=== PATIENT | female | born 1975 | race Caucasian/White ===

== ENCOUNTER 2016-09-14 20:32 | Emergency (ER) | payer BC, MEDICAID ==
[~2016-09-14] VITALS: Ht 165.1 cm; Wt 61.2 kg
[~2016-09-14 20:32] MED LIST: AC500T PO; ALBU0.8322 IH; ALPR1T PO; ALPR1TAB PO; CYCL10TA9 PO; DOXY100C2 PO; EMTR1TAB PO; HYDR-229 PO; HYDR-3583 PO; HYDR-623 PO; HYDR1CAP2 PO; IBP800T PO; IBUP-15 PO; K ZOSYN IV; METH-53 PO; METH4TAB PO; METH750T3 PO; NCT14P TD; ONDA2VIA3 PO; POLY17PO23 GT; PROP1TAB77 PO; RITO100T PO; SULF1TAB38 PO; TRAM-21 PO; TRM50T PO; VENL100T; [UNRECOGNIZED DRUG - CODE] IV; [UNRECOGNIZED DRUG - CODE] PO
[2016-09-14] MEDS ORDERED: ELVI1TAB (20:53)
[2016-09-14] MEDS ORDERED: DRON10CA2 (20:53)
[2016-09-14] MEDS ORDERED: ALBU18HF2 (20:53)
[2016-09-14] MEDS ORDERED: TRAM50TA2 (20:53)
[2016-09-14] MEDS ORDERED: ONDA8TAB12 (20:53)
[2016-09-14] MEDS ORDERED: ONDANSETRON 4 MG/2 ML (SDV) Z0FRAN IVP ONE (21:00)
[2016-09-14] MEDS ORDERED: IOHEXOL 350 MG/ML 100 ML (OMNIPAQUE 350) VIAL IV ONE (21:00)
[2016-09-14] MEDS ORDERED: NS 100 ML (IVPB) BAG IV ONE (21:00)
[2016-09-14 21:16] LABS: BASOPHILS # (AUTO) 0.1 10^3/uL (0.0-0.1); BASOPHILS % (AUTO) 2 % (0-10); EOSINOPHILS # (AUTO) 0.1 10^3/uL (0.0-0.3); EOSINOPHILS % (AUTO) 3 % (0-10); LYMPHOCYTES # (AUTO) 1.6 X 10^3 (1.0-4.0); LYMPHOCYTES % (AUTO) 50 % (12-44); MEAN CORPUSCULAR HEMOGLOBIN 30 PG (25-34); MEAN CORPUSCULAR HGB CONC 33 G/DL (32-36); MEAN CORPUSCULAR VOLUME 90 FL (80-99); MEAN PLATELET VOLUME 11.1 FL (7.4-10.4); MONOCYTES # (AUTO) 0.5 X 10^3 (0.0-1.0); MONOCYTES % (AUTO) 16 % (0-12); NEUTROPHILS % (AUTO) 30 % (42-75); PLATELET COUNT 221 10^3/uL (130-400); RED BLOOD COUNT 3.79 10^6/uL (4.35-5.85); RED CELL DISTRIBUTION WIDTH 18.2 % (10.0-14.5); WHITE BLOOD COUNT 3.3 10^3/uL (4.3-11.0)
[2016-09-14 21:20] LABS: PROTHROMBIN TIME PATIENT 12.5 SEC (12.2-14.7)
[2016-09-14 21:28] LABS: ALANINE AMINOTRANSFERASE 15 U/L (0-55); ALBUMIN 4.2 GM/DL (3.2-4.5); ALCOHOL < 10 MG/DL (<10); AMYLASE 54 U/L (25-125); ANION GAP 11 MMOL/L (5-14); ASPARTATE AMINO TRANSFERASE 21 U/L (5-34); BILIRUBIN,TOTAL 0.4 MG/DL (0.1-1.0); BLOOD UREA NITROGEN 11 MG/DL (7-18); BUN/CREATININE RATIO 13; CARBON DIOXIDE 23 MMOL/L (21-32); CHLORIDE 108 MMOL/L (98-107); CREATININE SERUM 0.82 MG/DL (0.60-1.30); GFR ESTIMATED > 60; GLUCOSE 94 MG/DL (70-105); LIPASE 17 U/L (8-78); MAGNESIUM 1.8 MG/DL (1.8-2.4); SODIUM 142 MMOL/L (135-145); TOTAL PROTEIN 7.3 GM/DL (6.4-8.2)
[2016-09-14 21:35] LABS: ACETAMINOPHEN < 10 UG/ML (10-30)
[2016-09-14] MEDS ORDERED: LACTATED RINGERS 1,000 ML IV ONE (22:00)
--- NOTE | 2016-09-14 22:13 | Diagnostic Imaging Report ---
PROCEDURE: CT abdomen and pelvis with contrast. TECHNIQUE: Multiple contiguous axial images were obtained through the abdomen and pelvis after administration of intravenous contrast. INDICATION: Bloating and abdominal pain. FINDINGS: The previous CT abdomen/pelvis exam of 06/02/12 noted that the gallbladder was surgically absent. In the interval since the prior exam, pneumobilia has developed. The previous CT abdomen/pelvis exam of 05/27/12 also show pneumobilia. This could be secondary to the patient's recent cholecystectomy. There is no sign of a pancreatic mass. The stomach is distended by fluid and particulate matter and consequently difficult to assess. The liver, itself, is stable. The previous exam also noted a fat-containing umbilical hernia in the supraumbilical region on the left. That findings is again evident. The amount of fat in this area has increased and now measures approximately 2.6 x 7.8 cm, as opposed to 1.9 x 5.1 cm previously. There is also some distortion of the fat in this area indicating that there is an element of edema/inflammation. There is no mass or abscess identified, however. The spleen is prominent but unchanged when compared with the prior exam. The pancreas, kidneys, adrenals, aorta and inferior vena cava show no sign of an acute abnormality. There is a fair amount of fecal material in the ascending and transverse colon and there is a considerable amount of gas in these portions of the colon as well. There is a large fibroid involving the uterus. On the prior exam, the fibroid measured approximately 4.3 cm. On this study, it now appears to be approximately 7 cm in size. If further study is desired, ultrasound would be recommended. The urinary bladder is grossly unremarkable. The appendix is not well visualized but there are no indirect signs of acute appendicitis. The bone windows show no sign of a fracture or of a destructive lesion. IMPRESSION: 1. The pneumobilia noted previously is again evident. This is of uncertain etiology. There is no sign of a pancreatic mass. 2. There does appear to be a greater amount of mesenteric fat extending through the ventral hernia on the left. There is also some distortion of the fat in this area indicating that there is an element of edema/inflammation. There is no sign of a mass or abscess however. 3. There is no acute abnormality in the abdomen or pelvis noted otherwise. 4. There is a considerable amount of fecal material and gas throughout the ascending and transverse colon. 5. The large fibroid, noted previously, has increased in size. If further study is desired, then ultrasound would be recommended. 6. These results were discussed with Dr. Che Granger. Dictated by: Dictated on workstation # [id number]
--- NOTE | 2016-09-14 22:18 | ED Abdominal Pain ---
General Chief Complaint: Abdominal/GI Problems Stated Complaint: AB PAIN Nursing Triage Note: ABDOMINAL CRAMPING/VAG. BLEEDING Sepsis Screen: No Definite Risk Source of Information: Patient (DIFFICULT HISTORIAN), Old Records History of Present Illness Time Seen By Provider: 20:49 Initial Comments PT ARRIVES VIA POV C/O LOWER ABDOMINAL PAIN /MENSTRUAL CRAMPING FOR THE LAST 3-4 DAYS STATES HER STOMACH HAS BEEN SWOLLEN FOR THE LAST 3-4 DAYS NO NAUSEA/VOMITING/DIARRHEA/CONSTIPATION. HAD A NORMAL BM TODAY NO URINARY SYMPTOMS AND VOIDING A NORMAL AMOUNT NO FEVER STATES SHE HAD A NORMAL PERIOD 09/03/16. LASTED 4-5 DAYS. STOPPED FOR 3 DAYS AND STARTED AGAIN AND IS VERY HEAVY AND PASSING CLOTS. CLAIMS SHE HAS WENT THROUGH A WHOLE PACK OF 48 MAXI PADS TODAY. NO HISTORY OF SIMILAR PT HAS HAD BTL PT HAS HIV, AND HISTORY OF ASCITES/LIVER FAILURE IN THE PAST, PER OLD RECORDS ALTHOUGH PT DENIES THIS--HAS A HISTORY OF NON-COMPLIANCE Allergies and Home Medications Allergies Coded Allergies: Oxycodone Terephthalate (Unverified Allergy, Severe, ITCHING, 06/08/11) aspirin (Unverified Allergy, Severe, ITCHING, 06/08/11) oxycodone HCl (Unverified Allergy, Severe, ITCHING, 06/08/11) Uncoded Allergies: NKDA (Allergy, Mild, 08/14/08) Home Medications Albuterol Sulfate 2.5 Mg/3 Ml Solution, 2.5 MG IH TID, (Reported) Albuterol Sulfate 18 Gm Hfa.aer.ad, #18 (Reported) Alprazolam 1 Mg Tablet, 1 MG PO BID, (Reported) Dronabinol 10 Mg Capsule, #60 (Reported) Elvitegr/Cobicist/Emtric/Tenof 1 Each Tablet, #30 (Reported) Hydrocodone Bit/Acetaminophen 1 Each Tablet, 1 EACH PO Q4H PRN, (Reported) Hydrocodone Bit/Acetaminophen 1 Tab Tablet, 1-2 EACH PO Q6H PRN, #40 Ref 0 Prescribed by: CRISTAL SANFORD on 06/02/12 1558 Ibuprofen 800 Mg Tablet, 1 EACH PO TID PRN, #30 Prescribed by: CARMELA MISHRA on 05/27/12 0135 Ketorolac Tromethamine 10 Mg Tablet, 10 MG PO Q6H, #15 Prescribed by: LC BLAKE on 09/14/16 2316 Ondansetron HCl 8 Mg Tablet, #30 (Reported) Polyethylene Glycol 17 Gm Pack, 17 GM GT BID, #30 Use twice daily in 8 oz of water or juice until abdominal pain and constipaion resolve. Then use daily as needed. Prescribed by: CARMELA MISHRA on 05/27/12 0135 Tramadol HCl 50 Mg Tablet, #120 (Reported) Tramadol Hcl 50 Mg Tab, 50 MG PO Q4H, #20 Prescribed by: CARMELA MISHRA on 05/27/12 0135 Review of Systems Constitutional: no symptoms reported Respiratory: No Symptoms Reported Cardiovascular: No Symptoms Reported Gastrointestinal: See HPI, Abdominal Pain, Nausea, Denies Vomiting Genitourinary: See HPI Musculoskeletal: no symptoms reported Skin: no symptoms reported Psychiatric/Neurological: Anxiety Endocrine: No Symptoms Reported Hematologic/Lymphatic: See HPI (PT WITH HIV) Past Uddqaki-Fpzpao-Ivtflj Hx Patient Social History Alcohol Use: Past History (HISTORY OF ABUSE, CLAIMS NONE SINCE 2014, PER PT ON 09/14/16) Recreational Drug Use: Yes (DENIES, BUT TESTED + FOR AMPHETAMINES ) Smoking Status: Current Everyday Smoker (1 PPD) Type Used: Cigarettes 2nd Hand Smoke Exposure: Yes Recent Foreign Travel: No Contact w/Someone Who Travel: No Recent Infectious Disease Expo: No Recent Hopitalizations: No Immunizations Up To Date Tetanus Booster (TDap): Less than 5yrs Date of Pneumonia Vaccine: Mar 16, 2009 Date of Influenza Vaccine: Mar 16, 2012 Seasonal Allergies Seasonal Allergies: No Surgeries HX Surgeries: Yes (RUDDY 2010, WITH ERCP;) Surgeries: Gallbladder, Tubal Ligation Respiratory Hx Respiratory Disorders: Yes Respiratory Disorders: Asthma Cardiovascular Hx Cardiac Disorders: No Neurological Hx Neurological Disorders: No 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 System : No Hx 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 Disorders: Yes (UNTERINE MASS/ POSSIBLE FIBROID PER OLD RECORDS SINCE AT LEAST 2010 ( PT DENIES ON 09/14/16 ) ) Sexually Transmitted Disease: No HIV/AIDS: Yes Female 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 Disorders: Denies 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 History: Tubal Ligation Genitourinary Hx Genitourinary Disorders: No Gastrointestinal Hx Gastrointestinal Disorders: Yes (ASCHITES, LIVER FAILURE IN PAST PER OLD RECORDS ( PT DENIES ON 09/14/16 ) ; KNOWN VENTRAL/UMBILICAL HERNIA) Gastrointestinal Disorders: Abdominal Hernia, Liver Disease/Jaundice Musculoskeletal Hx Musculoskeletal Disorders: No Endocrine Hx Endocrine Disorders: No HEENT HX ENT Disorders: No Cancer Hx Cancer: No Psychosocial Hx Psychiatric Problems: No Integumentary HX Skin/Integumentary Disorder: No Blood Transfusions Hx Blood Disorders: Yes (HIV) Adverse Reaction to a Blood Tr: No Family Medical History Significant Family History: No Pertinent Family Hx, Cancer, Hypertension Physical Exam Vital Signs VS - Last 72 Hours, by Label 09/14/16 09/14/16 20:53 23:21 Temp 97.7 98.1 Pulse 103 92 Resp 18 18 B/P (MAP) 136/86 Pulse Ox 96 97 O2 Delivery Room Air Room Air Capillary Refill : Less Than 3 Seconds General Appearance: other (CONSTANT MOVEMENTS OF MOUTH AND BODY, CONSTANT LIP LICKING. MARKEDLY EXAGGERATED PAIN RESPONSE, DOES NOT WANT TO LAY DOWN BUT PT LAYS FLAT FOR EXAM, PT WALKS UPRIGHT AND MOVES QUICKLY WITHOUT DIFFICULTY WHEN NOT BEING EXAMINESD. VERY DRAMATIC. ) HEENT: PERRL/EOMI, other (EDENTULOUS. TONGUE PIERCED) Neck: normal inspection Respiratory: normal breath sounds, no respiratory distress, no accessory muscle use Cardiovascular: regular rate, rhythm, no edema, no JVD, no murmur Gastrointestinal: normal bowel sounds, soft, distended, tenderness, other ( ASCITES, VENTRAL/UMBILICAL HERNIA-REDUCIBLE. MARKEDLY EXAGGERATED PAIN RESPONSE- JERKS/YELLS EVEN BEFORE SHE IS TOUCHED. DIFFUSE TENDERNESS-STATES IS MOST TENDER IN LOWER ABDOMEN. 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 tested, no motor/sensory deficits, alert, oriented x 3, other ( ABOVE) Skin: normal color, warm/dry, tattoos/piercings (MULTIPLE TATTOOS AND PIERCINGS ) Progress/Results/Core Measures Results/Orders Lab Results Laboratory Tests Test 09/14/16 21:00 09/14/16 22:50 Range/Units White Blood Count 3.3 L 4.3-11.0 10^3/uL Red Blood Count 3.79 L 4.35-5.85 10^6/uL Hemoglobin 11.3 L 11.5-16.0 G/DL Hematocrit 34 L 35-52 % Mean Corpuscular Volume 90 80-99 FL Mean Corpuscular Hemoglobin 30 25-34 PG Mean Corpuscular Hemoglobin Concent 33 32-36 G/DL Red Cell Distribution Width 18.2 H 10.0-14.5 % Platelet Count 221 130-400 10^3/uL Mean Platelet Volume 11.1 H 7.4-10.4 FL Neutrophils (%) (Auto) 30 L 42-75 % Lymphocytes (%) (Auto) 50 H 12-44 % Monocytes (%) (Auto) 16 H 0-12 % Eosinophils (%) (Auto) 3 0-10 % Basophils (%) (Auto) 2 0-10 % Neutrophils # (Auto) 1.0 L 1.8-7.8 X 10^3 Lymphocytes # (Auto) 1.6 1.0-4.0 X 10^3 Monocytes # (Auto) 0.5 0.0-1.0 X 10^3 Eosinophils # (Auto) 0.1 0.0-0.3 10^3/uL Basophils # (Auto) 0.1 0.0-0.1 10^3/uL Prothrombin Time 12.5 12.2-14.7 SEC INR Comment 1.0 0.8-1.4 Activated Partial Thromboplast Time 24 24-35 SEC Sodium Level 142 135-145 MMOL/L Potassium Level 3.0 L 3.6-5.0 MMOL/L Chloride Level 108 H 98-107 MMOL/L Carbon Dioxide Level 23 21-32 MMOL/L Anion Gap 11 5-14 MMOL/L Blood Urea Nitrogen 11 7-18 MG/DL Creatinine 0.82 0.60-1.30 MG/DL Estimat Glomerular Filtration Rate > 60 BUN/Creatinine Ratio 13 Glucose Level 94 70-105 MG/DL Calcium Level 10.0 8.5-10.1 MG/DL Magnesium Level 1.8 1.8-2.4 MG/DL Total Bilirubin 0.4 0.1-1.0 MG/DL Aspartate Amino Transf (AST/SGOT) 21 5-34 U/L Alanine Aminotransferase (ALT/SGPT) 15 0-55 U/L Alkaline Phosphatase 76 40-136 U/L Total Protein 7.3 6.4-8.2 GM/DL Albumin 4.2 3.2-4.5 GM/DL Amylase Level 54 25-125 U/L Lipase 17 8-78 U/L Serum Test, Qualitative NEGATIVE NEGATIVE Acetaminophen Level < 10 L 10-30 UG/ML Serum Alcohol < 10 <10 MG/DL Urine Color RED H Urine Clarity CLOUDY H Urine pH 7 5-9 Urine Specific [place] 1.010 L 1.016-1.022 Urine Protein 4+ NEGATIVE Urine Glucose (UA) NEGATIVE NEGATIVE Urine Ketones 1+ H NEGATIVE Urine Nitrite NEGATIVE NEGATIVE Urine Bilirubin NEGATIVE NEGATIVE Urine Urobilinogen NORMAL NORMAL MG/DL Urine Leukocyte Esterase NEGATIVE NEGATIVE Urine RBC (Auto) 5+ H NEGATIVE Urine RBC TNTC H /HPF Urine WBC NONE /HPF Urine Crystals NONE /LPF Urine Bacteria NONE /HPF Urine Casts NONE /LPF Urine Mucus NEGATIVE /LPF Urine Culture Indicated NO Urine Opiates Screen NEGATIVE NEGATIVE Urine Oxycodone Screen NEGATIVE NEGATIVE Urine Methadone Screen NEGATIVE NEGATIVE Urine Propoxyphene Screen NEGATIVE NEGATIVE Urine Barbiturates Screen NEGATIVE NEGATIVE Ur Tricyclic Antidepressants Screen NEGATIVE NEGATIVE Urine Phencyclidine Screen NEGATIVE NEGATIVE Urine Amphetamines Screen POSITIVE H NEGATIVE Urine Methamphetamines Screen NEGATIVE NEGATIVE Urine Benzodiazepines Screen NEGATIVE NEGATIVE Urine Cocaine Screen NEGATIVE NEGATIVE Urine Cannabinoids Screen POSITIVE H NEGATIVE My Orders Orders - LC BLAKE K DO Ua Culture If Indicated (09/14/16 20:48) Saline Lock/Iv-Start (09/14/16 20:49) Acetaminophen (09/14/16 20:49) Alcohol (09/14/16 20:49) Amylase (09/14/16 20:49) Cbc With Automated Diff (09/14/16 20:49) Comprehensive Metabolic Panel (09/14/16 20:49) Drug Screen Stat (Urine) (09/14/16 20:49) Hcg,Qualitative Serum (09/14/16 20:49) Lipase (09/14/16 20:49) Magnesium (09/14/16 20:49) Protime With Inr (09/14/16 20:49) Partial Thromboplastin Time (09/14/16 20:49) Ct Abdomen/Pelvis W (09/14/16 20:58) Ondansetron Injection (Zofran Injectio (09/14/16 21:00) Iohexol Injection (Omnipaque 350 Mg/Ml 1 (09/14/16 21:00) Ns (Ivpb) (Sodium Chloride 0.9% Ivpb Bag (09/14/16 21:00) Saline Lock/Iv-Start (09/14/16 22:00) Lactated Ringers (Lr 1000 Ml Iv Solution (09/14/16 22:00) Chest 1 View, Ap/Pa Only (09/14/16 ) Ketorolac Injection (Toradol Injection) (09/14/16 22:45) Orphenadrine Injection (Norflex Injectio (09/14/16 22:45) Diphenhydramine Injection (Benadryl Inje (09/14/16 22:45) Abdomen/Kub 1view (09/14/16 ) Medications Given in ED Current Medications Medications Dose Ordered Sig/Nani Route Start Time Stop Time Status Last Admin Dose Admin Diphenhydramine HCl 50 mg ONCE ONCE IVP 09/14/16 22:45 09/14/16 22:46 DC 09/14/16 22:48 50 MG Iohexol 100 ml ONCE ONCE IV 09/14/16 21:00 09/14/16 21:12 DC 09/14/16 21:39 100 ML Ketorolac Tromethamine 30 mg ONCE ONCE IVP 09/14/16 22:45 09/14/16 22:46 DC 09/14/16 22:48 30 MG Lactated Ringer's 1,000 ml @ 0 mls/hr Q0M ONCE IV 09/14/16 22:00 09/14/16 22:01 DC 09/14/16 22:05 0 MLS/HR Ondansetron HCl 8 mg ONCE ONCE IVP 09/14/16 21:00 09/14/16 21:01 DC 09/14/16 21:22 8 MG Orphenadrine Citrate 60 mg ONCE ONCE IV 09/14/16 22:45 09/14/16 22:46 DC 09/14/16 22:48 60 MG Sodium Chloride 100 ml ONCE ONCE IV 09/14/16 21:00 09/14/16 21:12 DC 09/14/16 21:39 100 ML Vital Signs/I&O Vital Sign - Last 12Hours 09/14/16 09/14/16 20:53 23:21 Temp 97.7 98.1 Pulse 103 92 Resp 18 18 B/P (MAP) 136/86 Pulse Ox 96 97 O2 Delivery Room Air Room Air Intake and Output 09/15/16 00:00 Intake Total 1000 ml Balance 1000 ml Blood Pressure Mean: 103 Progress Note : Progress Note ON REVIEW OF OLD RECORDS, PT HAS KNOWN INTRAUTERINE MASS/PROBABLE FIBROID SINCE AT LEAST 11/10/10. LAST CT OF ABD/PELVIS 12/07/13 ALSO SHOWED IT-POSSIBLE FIBROID BUT CANNOT R/O MALIGNANCY PER RADIOLOGIST REPORT PT HAS HAD MULTIPLE VISITS FOR ABDOMINAL PAIN DISCUSSED THE NEED FOR FOLLOW UP WITH INSTRUMENT TECHNOLOGIST FOR FURTHER EVALUATION/TREATMENT OF UTERINE FIBROID/MASS AND MENSTRUAL PROBLEMS--PT STATES SHE WILL NOT GO. LOCAL DR. RODGERS GIVEN TO PT AND INFORMED HER OF LOCAL INSTRUMENT TECHNOLOGIST'S PT DID NOT GO THROUGH ANY PADS DURING ER STAY Diagnostic Imaging Comments CT ABDOMEN/PELVIS--NO ACUTE PROCESS, FAT-CONTAINING UMBILICAL HERNIA HAS INCREASED IN SIZE WITH MILD INFLAMMATORY CHANGES OF FAT. KNOWN UTERINE MASS/ FIBROID INCREASED IN SIZE FROM 2012. S/P RUDDY WITH PNEUMOBILIA. FECAL LOADING. PER RADIOLOGIST REPORT @ 2235 AND VIA PHONE AT 2240 Reviewed: Reviewed by Me, Discussed w/Radiologist Departure Impression Impression: Primary Impression: Dysmenorrhea Additional Impressions: Menometrorrhagia UTERINE MASS, LIKELY FIBROID Constipation Umbilical hernia UDS + FOR AMPHETAMINES Disposition: HOME, SELF-CARE Condition: Stable Departure-Patient Inst. Referrals: NO,LOCAL PHYSICIAN (PCP/Family) Primary Care Physician Patient Instructions: Constipation, Adult (DC), IRREGULAR VAGINAL BLEEDING, Menstrual Cramps (DC), Umbilical Hernia, Adult, Uterine Fibroids (DC) Add. Discharge Instructions: INCREASE YOUR WATER INTAKE TAKE MIRALAX DAILY CONTINUE YOUR REGULAR MEDICATIONS PRESCRIBED FOLLOW UP WITH INSTRUMENT TECHNOLOGIST OF CHOICE FOR FURTHER CARE AND ESTABLISH WITH LOCAL FAMILY FOR FURTHER CARE--LIST PROVIDED All discharge instructions reviewed with patient and/or family. Voiced understanding. Scripts Ketorolac Tromethamine (Ketorolac Tromethamine) 10 Mg Tablet 10 MG PO Q6H for Pain, #15 TAB Prov: LC BLAKE DO 09/14/16 Work/School Note: Local Medical Staff Listing LC BLAKE DO Sep 14, 2016 22:17
[2016-09-14] MEDS ORDERED: KETOROLAC 30 MG/ML VIAL IVP ONE (22:45)
[2016-09-14] MEDS ORDERED: ORPHENADRINE 60 MG/2 ML (NORFLEX) AMP IV ONE (22:45)
[2016-09-14] MEDS ORDERED: diphenhydrAMINE 50 MG/ML INJ (BENADRYL) IVP ONE (22:45)
[2016-09-14 23:11] LABS: BILIRUBIN,URINE NEGATIVE (NEGATIVE); KETONES,URINE 1+ (NEGATIVE); LEUKOCYTE ESTERASE ,URINE NEGATIVE (NEGATIVE); NITRITE,URINE NEGATIVE (NEGATIVE); PH,URINE 7 (5-9); PROTEIN,URINE 4+ (NEGATIVE); UROBILINOGEN,URINE NORMAL (NORMAL)
[2016-09-14] MEDS ORDERED: KETO10TA PO (23:16)
[2016-09-14 23:21] VITALS: BP 123/78
--- NOTE | 2016-09-17 11:29 | RADIOLOGY REPORT ---
NAME: DANYELLE MENDEZ [facility] REC#: [id number] PT STATUS: DEP ER : 1975 PHYSICIAN: LC BLAKE DO ADMIT DATE: 09/14/16/ER CORRECTED Signed Date of Exam:09/14/16 CHEST 1 VIEW, AP/PA ONLY INDICATION: Abdominal pain EXAMINATION: Portable chest at 9:42 PM Heart size and pulmonary vascularity are normal. Lungs are clear. There are no effusions or pneumothoraces. IMPRESSION: No acute abnormalities in the chest. Dictated by: Dictated on workstation # [id number] Dict: 09/17/16 1024 Trans: 09/17/16 1039 [facility] [id number] Interpreted by: CRISTAL LAKHANI Electronically signed by: CRISTAL LAKHANI 09/17/16 1039 MTDD
--- NOTE | 2016-09-17 11:31 | RADIOLOGY REPORT ---
NAME: DANYELLE MENDEZ [facility] REC#: [id number] PT STATUS: DEP ER : 1975 PHYSICIAN: LC BLAKE DO ADMIT DATE: 09/14/16/ER CORRECTED Signed Date of Exam:09/14/16 ABDOMEN/KUB 1 VIEW INDICATION: Abdominal cramping and vaginal bleeding. FINDINGS: Single upright view of the abdomen is obtained. Lower abdomen and pelvis is not fully included. There is gaseous distention of stomach and large bowel. No free intraperitoneal gas is identified. Surgical clips are seen in gallbladder fossa. There is no evidence of pathologic calcification. IMPRESSION: Nonspecific bowel gas pattern without evidence of site of obstruction. Otherwise no acute abnormality is seen. Dictated by: Dictated on workstation # [id number] Dict: 09/15/16 0615 Trans: 09/15/16 0756 [id number] Interpreted by: JAILENE BEACH MD Electronically signed by: JAILENE BEACH MD 09/15/16 0756 [facility]
--- OUTSIDE RECORDS SUMMARY | 2016-09-17 14:14 | XMS REPORT ---
Author Author Zandra Watson Organization [employer] Address Unknown Phone Unavailable Care Team Providers Care Bicycle Racer Name Role Phone Zandra Watson CP Unavailable Allergies No Known Allergies Problems Problem Type Condition Code Onset Dates Condition Status Problem Migraine G43.909 Active Problem Bipolar affective disorder F31.9 Active Problem Noncompliance Z91.19 Active Problem Nausea and vomiting R11.2 Active Problem Depression with anxiety F41.8 Active Problem Edema R60.9 Active Problem Other chronic pain G89.29 Active Problem Intrinsic asthma J45.909 Active Problem Dermatitis L30.9 Active Problem penitentiary (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 Z79.891 Active Problem Chronic pain G89.29 Active Problem Smoking F17.200 Active Problem Generalized anxiety disorder F41.1 Active Problem Mixed hyperlipidemia E78.2 Active Problem Backache M54.9 Active Problem AIDS B20 Active Problem GERD (gastroesophageal reflux disease) K21.9 Active Medications No Known Medications Results No Known Results Summary Purpose [employer] Submission
--- OUTSIDE RECORDS SUMMARY | 2016-09-17 14:14 | XMS REPORT ---
Author Author Zandra Watson Organization [employer] Address Unknown Phone Unavailable Care Team Providers Care Mine Administrator Supervisor Name Role Phone Zandra Watson CP Unavailable [...] J45.909 Active Problem Dermatitis L30.9 Active Problem [facility] (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 Z79.891 Active Problem Chronic pain G89.29 Active Problem Smoking F17.200 Active Problem Generalized anxiety disorder F41.1 Active Problem Mixed hyperlipidemia E78.2 Active Problem Backache M54.9 Active Problem AIDS B20 Active Problem GERD (gastroesophageal reflux disease) K21.9 Active Medications No Known Medications Results No Known Results Summary Purpose [employer] Submission
--- OUTSIDE RECORDS SUMMARY | 2016-09-17 14:14 | XMS REPORT ---
Author Author Zandra Watson [facility] [employer] Address Unknown Phone Unavailable Care Team Providers Care Geothermal Sheet Metal Worker Name Role Phone Zandra Watson CP Unavailable Allergies No Known Allergies Problems Problem Type Condition Code Onset Dates Condition Status Problem Nausea alone 787.02 Active Problem Sebaceous cyst 706.2 Inactive Problem Generalized anxiety disorder 300.02 Active Problem Cellulitis and abscess of unspecified site 682.9 Inactive Problem Unspecified constipation 564.00 Inactive Problem Abdominal pain, unspecified site 789.00 Inactive Problem Flatulence, eructation, and gas pain 787.3 Active Problem Abdominal pain, generalized 789.07 Active Problem Swelling or mass of eye 379.92 Inactive Problem Acute upper respiratory infections of other multiple sites 465.8 Inactive Problem Vomiting alone 787.03 Inactive Problem Anxiety state, unspecified 300.00 Inactive Problem Umbilical hernia without mention of obstruction or gangrene 553.1 Inactive Problem Other specified pulmonary tuberculosis, 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, 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 [inoculation of animals] 011.86 Inactive Problem Screening for malignant neoplasm of the cervix V76.2 Inactive Problem Screening examination for venereal disease V74.5 Inactive Problem Depressive disorder, not elsewhere classified 311 Inactive Problem Nondependent tobacco use disorder 305.1 Active Problem Other acute sinusitis 461.8 Inactive Problem Other chronic pain 338.29 Active Problem Asthma, intrinsic 493.10 Active Problem Asymptomatic human immunodeficiency virus (HIV) infection status V08 Active Problem Persistent disorder of initiating or maintaining sleep 307.42 Inactive Problem Migraine 346.90 Active Problem Unspecified backache 724.5 Active Problem Unspecified dental caries 521.00 Inactive Problem Bipolar disorder, unspecified 296.80 Active Problem Esophageal reflux 530.81 Active Problem Symptomatic menopausal or female climacteric states 627.2 Inactive Problem Need for prophylactic vaccination and inoculation, Influenza V04.81 Inactive Problem Dyspepsia and other specified disorders of function of stomach 536.8 Active Problem 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 control 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 (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 V58.69 Inactive Problem Spasm of muscle 728.85 Inactive Problem Chronic pain syndrome 338.4 Inactive Problem Acute upper respiratory infections of unspecified site 465.9 Inactive Problem Lumbago 724.2 Inactive Problem Asthma 493.90 Active Problem Abdominal pain, right lower quadrant 789.03 Inactive Problem Noncompliance V15.81 Active Problem Abdominal pain, left lower quadrant 789.04 Inactive Problem Simple chronic bronchitis 491.0 Inactive Problem Need for prophylactic vaccination against streptococcus pneumoniae ( pneumococcus) V03.82 Inactive Medications Medication Code System Code Instructions Start Date End Date Status Dosage Proventil [facility] [id number] 108 (90 Base) MCG/ACT Inhalation every 4 hrs July 15, 2012 2 puffs as needed Results No Known Results Summary Purpose [employer] Submission
--- OUTSIDE RECORDS SUMMARY | 2016-09-17 14:14 | XMS REPORT ---
Author Author Zandra Watson [facility] eClinicalWorks Address Unknown Phone Unavailable Care Team Providers Care Family Living Educator Name Role Phone Zandra Watson Unavailable Allergies No Known Allergies Problems Problem Type Condition Code Onset Dates Condition Status Problem Migraine G43.909 Active Problem Bipolar affective disorder F31.9 Active Problem Noncompliance Z91.19 Active Problem Nausea and vomiting R11.2 Active Problem Depression with anxiety F41.8 Active Problem Edema R60.9 Active Problem Other chronic pain G89.29 Active Problem Intrinsic asthma J45.909 Active Problem Dermatitis L30.9 Active Problem jail (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 Z79.891 Active Assessment Generalized anxiety disorder F41.1 Active Problem Chronic pain G89.29 Active Problem Smoking F17.200 Active Problem Generalized anxiety disorder F41.1 Active Problem Mixed hyperlipidemia E78.2 Active Problem Backache M54.9 Active Problem AIDS B20 Active Problem GERD (gastroesophageal reflux disease) K21.9 Active Medications Medication Code System Code Instructions Start Date End Date Status Dosage Celexa [facility] [address]-46 20 MG Orally Once a day June 01, 2015 1 tablet Zofran [facility] [address]-97 8 MG Orally every 8 hrs Oct 31, 2015 1 tablet as needed Genvoya [facility] [address]-67 150 mg/150 mg/200/mg/10 mg Oral Once a day Apr 1 tablet Marinol [facility] [address]-22 10 MG Orally Twice a day June 18, 2015 1 capsule before lunch and supper Tramadol HCl [facility] [address]-26 50 MG Orally every 6 hrs October 08, 2015 Jan 19, 2016 1 tablet as needed ProAir HFA [facility] [address]-51 108 (90 Base) MCG/ACT Inhalation every 4 hrs October 08, 2015 2 puffs as needed Proventil HFA [facility] 42206291915 90 INHALE TWO PUFFS BY MOUTH EVERY 4 HOURS Cyclobenzaprine HCl [facility] 0 TAKE ONE TABLET BY MOUTH THREE TIMES A DAY Symbicort [facility] [address]-69 160-4.5 MCG/ACT Inhalation Twice a day May 01, 2014 2 puffs [facility] Omeprazole [facility] [address]-64 20 MG Orally Once a day Apr 13, 2015 1 tablet Hydrocodone-Acetaminophen [facility] [address]-28 10-325 MG Orally every 6 hrs Nov 27, 2013 Dec 07, 2015 1 tablet as needed Xanax [facility] [address]-50 1 MG Orally Twice a day October 05, 2013 Feb 26, 2016 1 tablet as needed Dapsone [facility] [address]-11 100 MG Orally Once a day May 09, 2015 1 tablet Results No Known Results Summary Purpose eClinicalWorks Submission
--- OUTSIDE RECORDS SUMMARY | 2016-09-17 14:14 | XMS REPORT ---
Author Author Zandra Watson [facility] eClinicalWorks Address Unknown Phone Unavailable Care Team Providers Care Brand Lead Name Role Phone Zandra Watson CP Unavailable Allergies No Known Allergies Problems Problem Type Condition ICD-9 Code Onset Dates Condition Status Problem Nausea [...] 346.90 Active Problem Unspecified backache 724.5 Active Assessment Other chronic pain 338.29 Active Problem Unspecified dental caries 521.00 Inactive Problem Bipolar disorder, unspecified 296.80 Active Problem Esophageal reflux 530.81 Active Problem Symptomatic menopausal or female climacteric states 627.2 Inactive Problem Need for prophylactic vaccination and inoculation, Influenza V04.81 Inactive Problem Dyspepsia and other specified disorders of function of stomach 536.8 Active Problem [facility] (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 V58.69 Inactive [...] Instructions Start Date End Date Status Dosage Hydrocodone-Acetaminophen [facility] [address]-69 10-325 MG Orally every 4-6 hrs Nov 27, 2013 July 15, 2014 1 tablet as needed Tramadol HCl [facility] [address]-66 50 MG Orally three times a day June 09, 2014 1 tablet as needed Results No Known Results Summary Purpose eClinicalWorks Submission
--- OUTSIDE RECORDS SUMMARY | 2016-09-17 14:14 | XMS REPORT ---
Author Author Zandra Watson [facility] eClinicalWorks Address Unknown Phone Unavailable Care Team Providers Care Advertising Consultant Name Role Phone Zandra Watson Unavailable Allergies [...] J45.909 Active Problem Dermatitis L30.9 Active Problem alf (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 Z79.891 Active Assessment Depression with anxiety F41.8 Active Problem Chronic pain G89.29 Active Assessment Backache M54.9 Active Problem Smoking F17.200 Active Problem Generalized anxiety disorder F41.1 Active Problem Mixed hyperlipidemia E78.2 Active Problem Backache M54.9 Active Problem AIDS B20 Active Problem GERD (gastroesophageal reflux disease) K21.9 Active Medications Medication Code System Code Instructions Start Date End Date Status Dosage Celexa [facility] [address]-70 20 MG Orally Once a day June 01, 2015 1 tablet Genvoya [facility] [address]-22 150 mg/150 mg/200/mg/10 mg Oral Once a day Apr 1 tablet Xanax [facility] [address]-05 1 MG Orally Twice a day October 05, 2013 Feb 26, 2016 1 tablet as needed ProAir HFA [facility] [address]-32 108 (90 Base) MCG/ACT Inhalation every 4 hrs October 08, 2015 2 puffs as needed Tramadol HCl [facility] [address]-75 50 MG Orally every 6 hrs October 08, 2015 Jan 19, 2016 1 tablet as needed Dapsone [facility] [address]-38 100 MG Orally Once a day May 09, 2015 1 tablet Hydrocodone-Acetaminophen [facility] [address]-74 10-325 MG Orally every 6 hrs Nov 27, 2013 Jan 06, 2016 1 tablet as needed Symbicort [facility] [address]-90 160-4.5 MCG/ACT Inhalation Twice a day May 01, 2014 2 puffs Marinol [facility] [address]-86 10 MG Orally Twice a day June 18, 2015 1 capsule before lunch and supper Proventil HFA [facility] 91731973012 90 INHALE TWO PUFFS BY MOUTH EVERY 4 HOURS Methocarbamol [facility] [address]-19 750 MG Orally every 8 hrs Jan 01, 2016 1 tablet Cyclobenzaprine HCl [facility] 0 TAKE ONE TABLET BY MOUTH THREE TIMES A DAY [facility] Omeprazole [facility] [address]-12 20 MG Orally Once a day Apr 13, 2015 1 tablet Zofran [facility] [address]-16 8 MG Orally every 8 hrs Oct 31, 2015 1 tablet as needed Results No Known Results Summary Purpose eClinicalWorks Submission
--- OUTSIDE RECORDS SUMMARY | 2016-09-17 14:14 | XMS REPORT ---
Author Author Zandra Watson Organization eClinicalWorks Address Unknown Phone Unavailable Care Team Providers Care Victim Advocate Name Role Phone Zandra Watson CP Unavailable Allergies No Known Allergies Problems Problem Type Condition ICD-9 Code Onset Dates Condition Status Problem Migraine 346.90 Active Problem Noncompliance V15.81 Active Problem Asthma, intrinsic 493.10 Active Assessment Diarrhea 787.91 Active Assessment URI (upper respiratory infection) 465.9 Active Problem Nondependent tobacco use disorder 305.1 Active Problem Bipolar disorder, unspecified 296.80 Active Problem Asymptomatic human immunodeficiency virus (HIV) infection status V08 Active Problem Other chronic pain 338.29 Active Problem Generalized anxiety disorder 300.02 Active Problem Esophageal reflux 530.81 Active Problem Unspecified backache 724.5 Active Medications Medication Code System Code Instructions Start Date End Date Status Dosage Lomotil [facility] [address]-59 2.5-0.025 MG Orally Four times a day September 13, 2014 September 23, 2014 1 tablet as needed PredniSONE [facility] [address]-46 10 MG Orally day1:8tab day2:7tab day3:6tab day4 :5tab day5:4tab day6:3tab day7:2tab day8:1tab September 13, 2014 September 21, 2014 as directed Bactrim DS [facility] [address]-91 800-160 MG Orally twice a day September 13, 2014 September 27, 2014 1 tablet Results No Known Results Summary Purpose eClinicalWorks Submission
--- OUTSIDE RECORDS SUMMARY | 2016-09-17 14:15 | XMS REPORT ---
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
--- OUTSIDE RECORDS SUMMARY | 2016-09-17 14:15 | XMS REPORT ---
Author Author Zandra Watson [facility] Address [address], [place] [id number] Care Team Providers Care Nuclear Security Officer Name Role Phone Zandra Watson Unavailable PROBLEMS Type Condition ICD9-CM Code [id number] Code Onset Dates Condition Status SNOMED Code Problem Bipolar affective disorder F31.9 Active 88083698 Problem residential (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 Z79.891 Active 054998952 Problem Intrinsic asthma J45.909 Active 122200406 Problem Acquired immune deficiency syndrome B20 Active 39820634 Problem Hyperglycemia R73.9 Active 19203460 Problem Dysmenorrhea N94.6 Active 659917199 Problem Nicotine dependence, cigarettes, uncomplicated F17.210 Active 31703016 Problem Localized edema R60.0 Active 557838194 Problem Dermatitis L30.9 Active 88411854 Problem Generalized anxiety disorder F41.1 Active 97416072 Problem Backache M54.9 Active 281639224 Problem GERD (gastroesophageal reflux disease) K21.9 Active 313394727 Problem Mixed hyperlipidemia E78.2 Active 116035909 Problem Migraine G43.909 Active 12345961 ALLERGIES Unknown Allergies SOCIAL HISTORY No smoking Hx information available PLAN OF CARE VITAL SIGNS MEDICATIONS Medication Instructions Dosage Frequency Start Date End Date Duration Status Xanax 1 MG Orally Twice a day 1 tablet as needed 12h Sep, Sep, 30 days Active RESULTS No Results PROCEDURES No Known procedures IMMUNIZATIONS No Known Immunizations
--- OUTSIDE RECORDS SUMMARY | 2016-09-17 14:15 | XMS REPORT ---
Author Author Zandra Watson Organization eClinicalWorks Address Unknown Phone Unavailable Care Team Providers Care Staff Technologist Name Role Phone Zandra Watson CP Unavailable [...] J45.909 Active Problem Dermatitis L30.9 Active Problem detention (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 Z79.891 Active Problem Chronic pain G89.29 Active Problem Smoking F17.200 Active Problem Generalized anxiety disorder F41.1 Active Problem Mixed hyperlipidemia E78.2 Active Problem Backache M54.9 Active Problem AIDS B20 Active Problem GERD (gastroesophageal reflux disease) K21.9 Active Medications No Known Medications Results No Known Results Summary Purpose eClinicalWorks Submission
--- OUTSIDE RECORDS SUMMARY | 2016-09-17 14:15 | XMS REPORT ---
Author Author Zandra Watson Organization eClinicalWorks Address Unknown Phone Unavailable Care Team Providers Care Electrophysiology Scientist Name Role Phone Zandra Watson CP Unavailable Allergies No Known Allergies Problems Problem Type Condition Code Onset Dates Condition Status Problem Smoking F17.200 Active Problem Backache M54.9 Active Problem Generalized anxiety disorder F41.1 Active Problem Asymptomatic HIV infection Z21 Active Problem Intrinsic asthma J45.909 Active Problem Other chronic pain G89.29 Active Problem Migraine G43.909 Active Problem GERD (gastroesophageal reflux disease) K21.9 Active Problem Bipolar affective disorder F31.9 Active Problem Noncompliance Z91.19 Active Medications No Known Medications Results No Known Results Summary Purpose eClinicalWorks Submission
--- OUTSIDE RECORDS SUMMARY | 2016-09-17 14:15 | XMS REPORT ---
Author Author Zandra Watson [facility] Address [address], [place] [address] Care Team Providers Care Shop Repairer Name Role Phone Zandra Watson Unavailable PROBLEMS Type Condition ICD9-CM Code [id number] Code Onset Dates Condition Status SNOMED Code Problem Bipolar affective disorder F31.9 Active 21816222 Problem senior care (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 Z79.891 Active 801860411 Problem Intrinsic asthma J45.909 Active 177986095 Problem Acquired immune deficiency syndrome B20 Active 60146545 Problem Hyperglycemia R73.9 Active 27222613 Problem Dysmenorrhea N94.6 Active 014864826 Problem Nicotine dependence, cigarettes, uncomplicated F17.210 Active 11521051 Problem Localized edema R60.0 Active 770698301 Problem Dermatitis L30.9 Active 02756986 Problem Generalized anxiety disorder F41.1 Active 03971834 Problem Backache M54.9 Active 278181265 Problem GERD (gastroesophageal reflux disease) K21.9 Active 112727789 Problem Mixed hyperlipidemia E78.2 Active 755353277 Problem Migraine G43.909 Active 51511154 ALLERGIES Unknown Allergies SOCIAL HISTORY No smoking Hx information available PLAN OF CARE VITAL SIGNS MEDICATIONS Unknown Medications RESULTS No Results PROCEDURES No Known procedures IMMUNIZATIONS No Known Immunizations
--- OUTSIDE RECORDS SUMMARY | 2016-09-17 14:15 | XMS REPORT ---
Author Author Zandra Watson [facility] Address [address], [place] [address] Care Team Providers Care Flute Polisher Name Role Phone Zandra Watson Unavailable PROBLEMS Type Condition ICD9-CM Code [id number] Code Onset Dates Condition Status SNOMED Code Problem Backache M54.9 Active 523857512 Problem Migraine G43.909 Active 33145388 Problem GERD (gastroesophageal reflux disease) K21.9 Active 608542129 Problem Mixed hyperlipidemia E78.2 Active 111938815 Problem AIDS B20 Active 96394030 Problem Generalized anxiety disorder F41.1 Active 11239865 Problem Dermatitis L30.9 Active 97770361 Problem Dysmenorrhea N94.6 well-controlled 164742095 Problem Intrinsic asthma J45.909 well-controlled 135195694 Problem Bipolar affective disorder F31.9 Active 41272765 Problem Nicotine dependence, cigarettes, uncomplicated F17.210 well- controlled 43417204 Problem scientific photographer (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 Z79.891 Active 916401712 ALLERGIES Unknown Allergies SOCIAL HISTORY No smoking Hx information available PLAN OF CARE VITAL SIGNS MEDICATIONS Medication Instructions Dosage Frequency Start Date End Date Duration Status Hydrocodone-Acetaminophen 10-325 MG Orally every 6 hrs 1 tablet as needed 6h Nov, July, 30 days Active RESULTS No Results PROCEDURES No Known procedures IMMUNIZATIONS No Known Immunizations
--- OUTSIDE RECORDS SUMMARY | 2016-09-17 14:15 | XMS REPORT ---
Author Author Zandra Watson Organization eClinicalWorks Address Unknown Phone Unavailable Care Team Providers Care Retail Marketing Coordinator Name Role Phone Zandra Watson CP Unavailable Allergies No Known Allergies Problems Problem Type Condition Code Onset Dates Condition Status Problem Smoking F17.200 Active Problem Backache M54.9 Active Problem Generalized anxiety disorder F41.1 Active Assessment Other chronic pain G89.29 Active Problem Asymptomatic HIV infection Z21 Active Problem Intrinsic asthma J45.909 Active Problem Other chronic pain G89.29 Active Problem Migraine G43.909 Active Problem GERD (gastroesophageal reflux disease) K21.9 Active Problem Bipolar affective disorder F31.9 Active Problem Noncompliance Z91.19 Active Medications Medication Code System Code Instructions Start Date End Date Status Dosage Tramadol HCl [facility] [address]-36 50 MG Orally every 4-6 hrs Mar 29, 2015 1 tablet as needed Results No Known Results Summary Purpose eClinicalWorks Submission
--- OUTSIDE RECORDS SUMMARY | 2016-09-17 14:15 | XMS REPORT ---
Author Author Zandra Watson [facility] Address [address], [place] [address] Care Team Providers Care Apartment House Manager Name Role Phone Zandra Watson Unavailable PROBLEMS Type Condition ICD9-CM Code [id number] Code Onset Dates Condition Status SNOMED Code Problem Bipolar affective disorder F31.9 Active 00406923 Problem [facility] (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 Z79.891 Active 372456482 Problem Intrinsic asthma J45.909 Active 491575535 Problem Acquired immune deficiency syndrome B20 Active 30700657 Problem Hyperglycemia R73.9 Active 33052015 Problem Dysmenorrhea N94.6 Active 224661783 Problem Nicotine dependence, cigarettes, uncomplicated F17.210 Active 28288320 Problem Localized edema R60.0 Active 150693666 Problem Dermatitis L30.9 Active 71207426 Problem Generalized anxiety disorder F41.1 Active 82762867 Problem Backache M54.9 Active 146829831 Problem GERD (gastroesophageal reflux disease) K21.9 Active 048317595 Problem Mixed hyperlipidemia E78.2 Active 143335359 Problem Migraine G43.909 Active 01410310 ALLERGIES Unknown Allergies SOCIAL HISTORY No smoking Hx information available PLAN OF CARE VITAL SIGNS MEDICATIONS Medication Instructions Dosage Frequency Start Date End Date Duration Status Zofran 8 TAKE ONE TABLET BY MOUTH EVERY 8 HOURS FOR 10 DAYS 10 Active Hydrochlorothiazide 25 MG Orally Once a day 1 tablet in the morning 24h July, 30 day(s) Active Dapsone 100 MG Orally Once a day 1 tablet 24h Apr, 30 days Active Azithromycin 250 MG Orally Once a day 1 tab 24h Mar, 30 days Active Clonidine HCl 0.1 MG Orally every 4 hrs 1 tablet as needed do not take is BP is <100/60 4h Aug, Active ProAir HFA 108 (90 Base) MCG/ACT Inhalation every 4 hrs 2 puffs as needed 4h Sep, 30 days Active Marinol 10 MG Orally Twice a day 1 capsule before lunch and supper 12h 04 Jun, 2015 30 days Active Methocarbamol 750 Orally every 8 hrs 1 tablet 8h 10 Active Stribild 038-211-757-300 MG Orally Once a day 1 tablet 24h Aug, 30 days Active Dicyclomine HCl 20 MG Orally three times a day 1 tablet 8h 12 Jul, 2016 30 day(s) Active [facility] Omeprazole 20 MG Orally Once a day 1 tablet 24h Mar, 30 day (s) Active Promethazine HCl 25 MG Orally three times a day 1 tablet as needed 8h 20 Mar, 2016 30 day(s) Active Xanax 1 MG Orally Twice a day 1 tablet as needed 12h Sep, Sep, 30 days Active Methocarbamol 750 MG Orally every 8 hrs 1 tablet 8h 18 Dec, 2015 10 days Active RESULTS No Results PROCEDURES No Known procedures IMMUNIZATIONS No Known Immunizations
--- OUTSIDE RECORDS SUMMARY | 2016-09-17 14:15 | XMS REPORT ---
Author Author Chalo Amse [facility] eClinicalWorks Address Unknown Phone Unavailable Care Team Providers Care Oil Pump Station Operator Chief Name Role Phone Chalo Ames Unavailable Allergies No Known Allergies Problems Problem [...] or mass of eye 379.92 Inactive Problem Vomiting alone 787.03 Inactive Problem Umbilical hernia without mention of obstruction or gangrene 553.1 Inactive Problem Other acute sinusitis 461.8 Inactive Problem Other chronic pain 338.29 Active Problem Persistent disorder of initiating or maintaining sleep 307.42 Inactive Problem Need for prophylactic vaccination and inoculation, Influenza V04.81 Inactive Problem terminal operator (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 V58.69 Inactive Problem Chronic pain syndrome 338.4 Inactive Problem Lumbago 724.2 Inactive Problem Abdominal pain, right lower quadrant 789.03 Inactive Problem Abdominal pain, left lower quadrant 789.04 Inactive Problem Simple chronic bronchitis 491.0 Inactive Problem Need for prophylactic vaccination against streptococcus pneumoniae ( pneumococcus) V03.82 Inactive Assessment Nausea alone 787.02 Active Assessment Asthma 493.90 Active Assessment Asymptomatic human immunodeficiency virus (HIV) infection status V08 Active Assessment Flatulence, eructation, and gas pain 787.3 Active Assessment Abdominal pain, generalized 789.07 Active Assessment Unspecified backache 724.5 Active Problem Acute upper respiratory infections of other multiple sites 465.8 Inactive Assessment Dyspepsia and other specified disorders of function of stomach 536.8 Active Problem Anxiety state, unspecified 300.00 Inactive Problem Other specified pulmonary tuberculosis, 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, 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 [inoculation of animals] 011.86 Inactive Problem Screening for malignant neoplasm of the cervix V76.2 Inactive Problem Screening examination for venereal disease V74.5 Inactive Problem Depressive disorder, not elsewhere classified 311 Inactive Problem Nondependent tobacco use disorder 305.1 Active Problem Asymptomatic human immunodeficiency virus (HIV) infection status V08 Active Problem Asthma, intrinsic 493.10 Active Problem Unspecified backache 724.5 Active Problem Migraine 346.90 Active Problem Unspecified dental caries 521.00 Inactive Assessment Migraine 346.90 Active Problem Bipolar disorder, unspecified 296.80 Active Assessment Nondependent tobacco use disorder 305.1 Active Problem Esophageal reflux 530.81 Active Assessment Esophageal reflux 530.81 Active Problem Symptomatic menopausal or female climacteric states 627.2 Inactive Problem Dyspepsia and other specified disorders of function of stomach 536.8 Active Problem Spasm of muscle 728.85 Inactive Problem Acute upper respiratory infections of unspecified site 465.9 Inactive Problem Asthma 493.90 Active Problem Noncompliance V15.81 Active Medications Medication Code System Code Instructions Start Date End Date Status Dosage Stribild [facility] [address]-75 820-468-432-300 MG Oral 1 (one) Tablet daily June 18, 2013 not defined Xanax [facility] [address]-56 1 MG Orally Twice a day October 05, 2013 Mar 27, 2014 1 tablet Cyclobenzaprine HCl [facility] [address]-16 10 MG Orally Three times a day 1 tablet Hydrocodone-Acetaminophen [facility] [address]-88 10-325 MG Orally every 4-6 hrs Nov 27, 2013 Mar 31, 2014 1 tablet as needed Proventil HFA [facility] [address]-32 108 (90 Base) MCG/ACT Inhalation 2-4 puffs every foursix hours July 15, 2012 not defined Dronabinol [facility] [address]-67 10 MG Orally Twice a day Dec 08, 2013 June 06, 2014 1 capsule Procedures Procedure Coding System Code Date HIV-1, DNA, QUANT CPT-4 97302 Mar 24, 2014 T CELL, ABSOLUTE COUNT/RATIO CPT-4 09609 Mar 24, 2014 Venipuncture CPT-4 31029 Mar 24, 2014 Office Visit, Est Pt., Level 3 CPT-4 45384 Mar 24, 2014 BASIC METABOLIC PANEL CPT-4 15929 Mar 24, 2014 Results No Known Results Summary Purpose eClinicalWorks Submission
--- OUTSIDE RECORDS SUMMARY | 2016-09-17 14:15 | XMS REPORT ---
Author Author Dulce Olvera [facility] Address [address], [place] [id number] Care Team Providers Care Grocery Clerk Marking Name Role Phone Dulce Olvera Unavailable PROBLEMS Type Condition ICD9-CM Code LQT45-AN Code Onset Dates Condition Status SNOMED Code Problem Backache M54.9 Active 301066525 Problem Migraine G43.909 Active 85881011 Problem GERD (gastroesophageal reflux disease) K21.9 Active 280630693 Problem Mixed hyperlipidemia E78.2 Active 910249433 Problem AIDS B20 Active 03049518 Problem Generalized anxiety disorder F41.1 Active 36111489 Problem Dermatitis L30.9 Active 73237909 Problem Dysmenorrhea N94.6 well-controlled 164615309 Problem Intrinsic asthma J45.909 well-controlled 642084294 Problem Bipolar affective disorder F31.9 Active 22217327 Problem Nicotine dependence, cigarettes, uncomplicated F17.210 well- controlled 96592909 Problem intermediate (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 Z79.891 Active 511688051 ALLERGIES Unknown Allergies SOCIAL HISTORY No smoking Hx information available PLAN OF CARE VITAL SIGNS MEDICATIONS Medication Instructions Dosage Frequency Start Date End Date Duration Status Hydrocodone-Acetaminophen 10-325 MG Orally every 6 hrs 1 tablet as needed 6h 14 Nov, 2013 Jun, 30 days Active RESULTS No Results PROCEDURES No Known procedures IMMUNIZATIONS No Known Immunizations
--- OUTSIDE RECORDS SUMMARY | 2016-09-17 14:16 | XMS REPORT ---
Author Author Zandra Watson [facility] eClinicalWorks Address Unknown Phone Unavailable Care Team Providers Care Space Operations Name Role Phone Zandra Watson Unavailable Allergies No Known Allergies Problems Problem Type Condition Code Onset Dates Condition Status Problem Migraine 346.90 Active Problem Noncompliance V15.81 Active Problem Asthma, intrinsic 493.10 Active Problem Nondependent tobacco use disorder 305.1 Active Problem Bipolar disorder, unspecified 296.80 Active Problem Asymptomatic human immunodeficiency virus (HIV) infection status V08 Active Problem Other chronic pain 338.29 Active Problem Generalized anxiety disorder 300.02 Active Problem Esophageal reflux 530.81 Active Problem Unspecified backache 724.5 Active Medications Medication Code System Code Instructions Start Date End Date Status Dosage Hydrocodone-Acetaminophen [facility] [address]-73 10-325 MG Orally every 4-6 hrs Nov 27, 2013 September 04, 2014 1 tablet as needed PredniSONE [facility] [address]-41 10 MG Orally 8tabs day1,7tabs day2,6tabs day3, 5tabs day4,4tabs day5,3tabs day6,2tabs day7,1tab day8 August 14, 2014 August 22, 2014 tablet Cyclobenzaprine HCl [facility] [address]-44 10 MG Orally Three times a day 1 tablet Proventil HFA [facility] [address]-93 108 (90 Base) MCG/ACT Inhalation every 4 hrs July 15, 2012 2 puffs as needed Tramadol HCl [facility] [address]-20 50 MG Orally every 8 hrs September 25, 2014 1 tablet as needed Stribild [facility] [address]-11 238-157-344-300 MG Oral 1 (one) Tablet daily June 18, 2013 not defined Zithromax Z-Riky [facility] [address]-21 250 MG Orally Once a day Mar 29, 2014 August 19, 2014 2 tablets on the first day, then 1 tablet daily for 4 days Symbicort [facility] [address]-43 160-4.5 MCG/ACT Inhalation Twice a day May 01, 2014 2 puffs Results No Known Results Summary Purpose eClinicalWorks Submission
--- OUTSIDE RECORDS SUMMARY | 2016-09-17 14:16 | XMS REPORT ---
Author Author Zandra Watson Organization eClinical[employer] Address Unknown Phone Unavailable Care Team Providers Care Handbag Frames Inspector Name Role Phone Zandra Watson CP Unavailable Allergies No Known Allergies Problems Problem Type Condition Code Onset Dates Condition Status Problem Generalized anxiety disorder F41.1 Active Problem GERD (gastroesophageal reflux disease) K21.9 Active Problem Backache M54.9 Active Assessment Nausea & vomiting R11.2 Active Assessment Other chronic pain G89.29 Active Problem Asymptomatic HIV infection Z21 Active Problem Intrinsic asthma J45.909 Active Problem Other chronic pain G89.29 Active Problem Migraine G43.909 Active Problem Tobacco use disorder Z72.0 Active Problem Bipolar affective disorder F31.9 Active Problem Noncompliance Z91.19 Active Medications Medication Code System Code Instructions Start Date End Date Status Dosage Zofran [facility] [address]-36 8 MG Orally q 8 hours Feb 13, 2015 1 tablet Hydrocodone-Acetaminophen [facility] [address]-01 10-325 MG Orally every 4-6 hrs Nov 27, 2013 Apr 02, 2015 1 tablet as needed Results No Known Results Summary Purpose eClinicalWorks Submission
--- OUTSIDE RECORDS SUMMARY | 2016-09-17 14:16 | XMS REPORT ---
Author Author Zandra Watson [facility] eClinicalWorks Address Unknown Phone Unavailable Care Team Providers Care Car Pre Cooler Name Role Phone Zandra Watson Unavailable Allergies No Known Allergies Problems Problem Type Condition Code Onset Dates Condition Status Problem AIDS B20 Active Problem Backache M54.9 Active Problem Generalized anxiety disorder F41.1 Active Assessment Backache M54.9 Active Problem Mixed hyperlipidemia E78.2 Active Problem Nicotine dependence, cigarettes, uncomplicated F17.210 Active Problem buttermaker (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 Z79.891 Active Problem Dysmenorrhea N94.6 Active Problem Migraine G43.909 Active Problem GERD (gastroesophageal reflux disease) K21.9 Active Problem Intrinsic asthma J45.909 Active Problem Bipolar affective disorder F31.9 Active Medications Medication Code System Code Instructions Start Date End Date Status Dosage Marinol [facility] [address]-24 10 MG Orally Twice a day June 18, 2015 1 capsule before lunch and supper Hydrocodone-Acetaminophen [facility] [address]-98 10-325 MG Orally every 6 hrs Nov 27, 2013 Mar 05, 2016 1 tablet as needed Tramadol HCl [facility] [address]-67 50 MG Orally every 6 hrs October 08, 2015 1 tablet as needed [facility] Omeprazole [facility] [address]-75 20 MG Orally Once a day Apr 13, [address] [facility] [address]-76 160-4.5 MCG/ACT Inhalation Twice a day May 01, [address] [facility] [address]-73 8 MG Orally every 8 hrs Oct 31, 2015 1 tablet as needed Xanax [facility] [address]-73 1 MG Orally Twice a day October 05, 2013 Feb 26, 2016 1 tablet as needed Methocarbamol [facility] [address]-64 750 MG Orally every 8 hrs Jan 01, [address] [facility] [address]-42 100 MG Orally Once a day May 09, [address] [facility] [address]-63 150 mg/150 mg/200/mg/10 mg Oral Once a day Apr [address] [facility] [address]-17 108 (90 Base) MCG/ACT Inhalation every 4 hrs October 08, 2015 2 puffs as needed Results No Known Results Summary Purpose eClinicalWorks Submission
--- OUTSIDE RECORDS SUMMARY | 2016-09-17 14:16 | XMS REPORT ---
Author Author Zandra Watson [facility] Address [address] [place], [place] [id number] Care Team Providers Care Power Station Operator Name Role Phone Zandra Watson Unavailable PROBLEMS Type Condition ICD9-CM Code ROF84-PG Code Onset Dates Condition Status SNOMED Code Problem Bipolar affective disorder F31.9 Active 71937026 Problem [facility] (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 Z79.891 Active 927272418 Problem Intrinsic asthma J45.909 Active 267855593 Problem Acquired immune deficiency syndrome B20 Active 88311139 Problem Hyperglycemia R73.9 Active 08709368 Problem Dysmenorrhea N94.6 Active 937675735 Problem Nicotine dependence, cigarettes, uncomplicated F17.210 Active 63988367 Problem Localized edema R60.0 Active 572140871 Problem Dermatitis L30.9 Active 17912402 Problem Generalized anxiety disorder F41.1 Active 25365977 Problem Backache M54.9 Active 845437334 Problem GERD (gastroesophageal reflux disease) K21.9 Active 850457505 Problem Mixed hyperlipidemia E78.2 Active 653623202 Problem Migraine G43.909 Active 54537404 ALLERGIES Unknown Allergies SOCIAL HISTORY No smoking Hx information available PLAN OF CARE VITAL SIGNS MEDICATIONS Unknown Medications RESULTS No Results PROCEDURES No Known procedures IMMUNIZATIONS No Known Immunizations
--- OUTSIDE RECORDS SUMMARY | 2016-09-17 14:16 | XMS REPORT ---
Author Author VITA CLARK eClinicalWorks Address Unknown Phone Unavailable Care Team Providers Care Global Sales Director Name Role Phone VITA CLARK CP Unavailable Allergies, Adverse Reactions, Alerts Substance Reaction Event Type Percocet Info Not Available Drug Allergy Problems Problem Type Condition Code Onset Dates Condition Status Problem Special screening examination, human papillomavirus [HPV] V73.81 Active Problem Dysmenorrhea 625.3 Active Problem Screening for malignant neoplasm of the cervix V76.2 Active Problem Excessive or frequent menstruation 626.2 Active Problem Abdominal pain, other specified site 789.09 Active Problem Encounter for removal of sutures V58.32 Active Problem Family history of malignant neoplasm, ovary V16.41 Active Problem Routine gynecological examination V72.31 Active Problem Abdominal or pelvic swelling, mass, or lump, right lower quadrant 789.33 Active Problem Other symptoms involving skin and integumentary tissues 782.9 Active Assessment Generalized abdominal pain R10.84 Active Problem Benign neoplasm of uterus, 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 Active Assessment Anxiety F41.9 Active Problem Human immunodeficiency virus [HIV] 042 Active Problem Sebaceous cyst 706.2 Active Problem Papanicolaou smear of cervix with atypical squamous cells of undetermined significance (ASC-US) 795.01 Active Problem Hypertrophy of uterus 621.2 Active Problem Human papilloma virus in conditions classified elsewhere and of unspecified site 079.4 Active Problem Unspecified breast screening V76.10 Active Medications Medication Code System Code Instructions Start Date End Date Status Dosage Stribild [facility][NOTE 3] [address]-04 225-599-778-300 mg Nov 23, 2013 take 1 tablet by oral route once daily with food [place] [facility][NOTE 3] [address]-31 10-325 mg Nov 23, 2013 take 1 tablet by oral route every 4 hours as needed for pain ProAir HFA [facility][NOTE 3] [address]-74 108 (90 Base) MCG/ACT Inhalation every 4 hrs 2 puffs as needed Xanax [facility][NOTE 3] [address]-64 1 mg Nov 30, 2013 take 1 tablets by Oral route 2 times per day Dronabinol [facility][NOTE 3] [address]-55 10 MG Orally Twice a day 1 capsule before lunch and supper Zofran [facility][NOTE 3] [address]-18 8 MG Orally every 8 hours prn 1 tablet Procedures Procedure Coding System Code Date Office Visit, Est Pt., Level 3 CPT-4 53015 Mar 15, 2015 Vital Signs Date/Time: Mar 15, 2015 Temperature 96.4 F Weight 137.6 lbs Height 65 in BMI 22.90 Index Blood Pressure Diastolic 60 mmHg Blood Pressure Systolic 122 mmHg Cardiac Monitoring Heart Rate 72 bpm Results No Known Results Summary Purpose eClinicalWorks Submission
--- OUTSIDE RECORDS SUMMARY | 2016-09-17 14:16 | XMS REPORT ---
Author Author Zandra Watson Organization eClinicalWorks Address Unknown Phone Unavailable Care Team Providers Care Branding Machine Tender Name Role Phone Zandra Watson CP Unavailable Allergies No Known Allergies Problems Problem Type Condition Code Onset Dates Condition Status Problem Noncompliance Z91.19 Active Problem Intrinsic asthma J45.909 Active Problem Bipolar affective disorder F31.9 Active Problem Edema R60.9 Active Problem Nausea and vomiting R11.2 Active Problem Dysmenorrhea N94.6 Active Problem jail (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 Z79.891 Active Problem Other chronic pain G89.29 Active Problem Depression with anxiety F41.8 Active Problem Dermatitis L30.9 Active Problem Chronic pain G89.29 Active Problem Mixed hyperlipidemia E78.2 Active Problem Generalized anxiety disorder F41.1 Active Problem Backache M54.9 Active Problem AIDS B20 Active Problem GERD (gastroesophageal reflux disease) K21.9 Active Problem Smoking F17.200 Active Problem Migraine G43.909 Active Medications No Known Medications Results No Known Results Summary Purpose eClinicalWorks Submission
--- OUTSIDE RECORDS SUMMARY | 2016-09-17 14:16 | XMS REPORT ---
Author Author Zandra Watson [facility] eClinicalWorks Address Unknown Phone Unavailable Care Team Providers Care Presser First Name Role Phone Zandra Watson Unavailable Allergies No Known Allergies Problems Problem Type Condition Code Onset Dates Condition Status Problem GERD (gastroesophageal reflux disease) K21.9 Active Problem Noncompliance Z91.19 Active Problem Migraine G43.909 Active Problem Depression with anxiety F41.8 Active Problem Dermatitis L30.9 Active Problem Nausea and vomiting R11.2 Active Problem Intrinsic asthma J45.909 Active Problem Bipolar affective disorder F31.9 Active Problem jail (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 Z79.891 Active Problem Other chronic pain G89.29 Active Problem AIDS B20 Active Problem Smoking F17.200 Active Problem Generalized anxiety disorder F41.1 Active Assessment Other chronic pain G89.29 Active Problem Backache M54.9 Active Medications Medication Code System Code Instructions Start Date End Date Status Dosage Zofran [facility] [address]-32 8 MG Orally every 8 hrs Feb 13, 2015 1 tablet as needed Permethrin [facility] [address]-84 5 % Externally apply head to toe; leave on 8- 12h then wash off with water, may reapply in 1 week June 01, 2015 as directed Azithromycin [facility] [address]-56 250 MG Orally Once a day May 09, 2015 1 tablet Xanax [facility] [address]-94 1 MG Orally Twice a day October 05, 2013 August 01, 2015 1 tablet Celexa [facility] [address]-17 20 MG Orally Once a day June 01, 2015 1 tablet Dapsone [facility] [address]-03 100 MG Orally Once a day May 09, 2015 1 tablet Genvoya [facility] [address]-27 150 mg/150 mg/200/mg/10 mg Oral Once a day Apr 1 tablet Marinol [facility] [address]-34 10 MG Orally Twice a day June 18, 2015 1 capsule before lunch and supper Cetirizine HCl [facility] [address]-36 10 MG Orally twice a day June 27, 2015 July 27, 2015 1 tablet Hydrocodone-Acetaminophen [facility] [address]-06 10-325 MG Orally every 6 hrs Nov 27, 2013 August 09, 2015 1 tablet as needed Results No Known Results Summary Purpose eClinicalWorks Submission
--- OUTSIDE RECORDS SUMMARY | 2016-09-17 14:17 | XMS REPORT ---
Author Author Zandra Watson [facility] eClinicalWorks Address Unknown Phone Unavailable Care Team Providers Care Rn Social Services Name Role Phone Zandra Watson Unavailable Allergies No Known Allergies Problems Problem Type Condition Code Onset Dates Condition Status Problem Noncompliance V15.81 Active Problem Asthma, intrinsic 493.10 Active Problem Symptomatic menopausal or female climacteric states 627.2 Inactive Problem Spasm of muscle 728.85 Inactive Problem Cellulitis and abscess of unspecified site 682.9 Inactive Problem Generalized anxiety disorder 300.02 Active Problem Unspecified constipation 564.00 Inactive Problem Abdominal pain, unspecified site 789.00 Inactive Problem Swelling or mass of eye 379.92 [...] Problem Other chronic pain 338.29 Active Problem Asymptomatic human immunodeficiency virus (HIV) infection status V08 Active Problem Persistent disorder of initiating or maintaining sleep 307.42 Inactive Problem Unspecified backache 724.5 Active Problem Unspecified dental caries 521.00 Inactive Problem Bipolar disorder, unspecified 296.80 Active Problem Esophageal reflux 530.81 Active Assessment Other chronic pain 338.29 Active Problem Need for prophylactic vaccination and inoculation, Influenza V04.81 Inactive Problem Migraine 346.90 Active Problem retirement (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 V58.69 Inactive [...] Start Date End Date Status Dosage Hydrocodone-Acetaminophen [facility] [address]-44 10-325 MG Orally every 4-6 hrs Nov 27, 2013 September 04, 2014 1 tablet as needed Results No Known Results Summary Purpose eClinicalWorks Submission
--- OUTSIDE RECORDS SUMMARY | 2016-09-17 14:17 | XMS REPORT ---
Author Author Zandra Watson [facility] eClinicalWorks Address Unknown Phone Unavailable Care Team Providers Care Powerhouse Operator Name Role Phone Zandra Watson CP Unavailable [...] of function of stomach 536.8 Active Problem terminal operations supervisor (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 V58.69 Inactive [...] Instructions Start Date End Date Status Dosage Zithromax Z-Riky [facility] [address]-22 250 MG Orally Once a day Mar 29, 2014 2 tablets on the first day, then 1 tablet daily for 4 days Dronabinol [facility] [address]-11 10 MG Orally Twice a day Dec 08, 2013 June 06, 2014 1 capsule Cyclobenzaprine HCl [facility] [address]-72 10 MG Orally Three times a day 1 tablet Hydrocodone-Acetaminophen [facility] [address]-14 10-325 MG Orally every 4-6 hrs Nov 27, 2013 May 29, 2014 1 tablet as needed PredniSONE [facility] [address]-85 10 MG Orally Once a day Mar 29, 2014 taper - 8,7,6,5,4,3,2,1 Stribild [facility] [address]-10 361-409-809-300 MG Oral 1 (one) Tablet daily June 18, 2013 not defined Proventil HFA [facility] [address]-01 108 (90 Base) MCG/ACT Inhalation 2-4 puffs every foursix hours July 15, 2012 not defined Results No Known Results Summary Purpose eClinicalWorks Submission
--- OUTSIDE RECORDS SUMMARY | 2016-09-17 14:17 | XMS REPORT ---
Author Author Zandra Watson Organization eClinicalWorks Address Unknown Phone Unavailable Care Team Providers Care Automobile Service Advisor Name Role Phone Zandra Watson CP Unavailable [...] Instructions Start Date End Date Status Dosage Fluconazole [facility] [address]-60 100 MG Orally Once a day Nov 17, 2014 1 tablet Results No Known Results Summary Purpose eClinicalWorks Submission
--- OUTSIDE RECORDS SUMMARY | 2016-09-17 14:17 | XMS REPORT ---
Author Author Zandra Watson [facility] eClinicalWorks Address Unknown Phone Unavailable Care Team Providers Care Chief Crna Name Role Phone Zandra Watson CP Unavailable [...] Active Problem Unspecified backache 724.5 Active Assessment Generalized anxiety disorder 300.02 Active Problem Unspecified dental caries 521.00 Inactive Assessment Seasonal allergies 477.9 Active Problem Bipolar disorder, unspecified 296.80 Active Problem Esophageal reflux 530.81 Active Problem Symptomatic menopausal or female climacteric states 627.2 Inactive Problem Need for prophylactic vaccination and inoculation, Influenza V04.81 Inactive Problem Dyspepsia and other specified disorders of function of stomach 536.8 Active Problem alf (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 V58.69 Inactive [...] Instructions Start Date End Date Status Dosage Augmentin [facility] [address]-35 875-125 MG Orally Twice a day May 01, 2014 1 tablet Xanax [facility] [address]-49 1 MG Orally Twice a day October 05, 2013 July 18, 2014 1 tablet Zithromax Z-Riky [facility] [address]-21 250 MG Orally Once a day Mar 29, 2014 2 tablets on the first day, then 1 tablet daily for 4 days PredniSONE [facility] [address]-48 10 MG Orally Once a day Mar 29, 2014 taper - 8,7,6,5,4,3,2,1 Hydrocodone-Acetaminophen [facility] [address]-63 10-325 MG Orally every 4-6 hrs Nov 27, 2013 June 28, 2014 1 tablet as needed Stribild [facility] [address]-74 897-429-092-300 MG Oral 1 (one) Tablet daily June 18, 2013 not defined Cyclobenzaprine HCl [facility] [address]-33 10 MG Orally Three times a day 1 tablet PredniSONE [facility] [address]-10 10 MG Orally Once a day June 20, 2014 8 tab/day1 7tab/day2 6tab/day3 5tab/day4 4tab/day5 3tab/day6 2tab/day7 1tab/day8 Escitalopram Oxalate [facility] [address]-32 20 MG Orally Once a day 2014 1 tablet Symbicort [facility] [address]-23 160-4.5 MCG/ACT Inhalation Twice a day May 01, 2014 2 puffs Proventil HFA [facility] [address]-82 108 (90 Base) MCG/ACT Inhalation 2-4 puffs every foursix hours July 15, 2012 not defined Results No Known Results Summary Purpose eClinicalWorks Submission
--- OUTSIDE RECORDS SUMMARY | 2016-09-17 14:17 | XMS REPORT ---
Author Author Zandra Watson Organization eClinicalWorks Address Unknown Phone Unavailable Care Team Providers Care Fruit Press Operator Name Role Phone Zandra Watson CP [...] J45.909 Active Problem Dermatitis L30.9 Active Problem shelter (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 Z79.891 Active Problem Chronic pain G89.29 Active Problem Smoking F17.200 Active Problem Generalized anxiety disorder F41.1 Active Problem Mixed hyperlipidemia E78.2 Active Problem Backache M54.9 Active Problem AIDS B20 Active Problem GERD (gastroesophageal reflux disease) K21.9 Active Medications No Known Medications Results No Known Results Summary Purpose eClinicalWorks Submission
--- OUTSIDE RECORDS SUMMARY | 2016-09-17 14:17 | XMS REPORT ---
Author Author Zandra Watsno [facility] Address [address], [place] [id number] Care Team Providers Care Fast Food Supervisor Name Role Phone Walter Zandra Unavailable PROBLEMS Type Condition ICD9-CM Code QCL34-CS Code Onset Dates Condition Status SNOMED Code Problem Bipolar affective disorder F31.9 Active 34589505 Problem alf (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 Z79.891 Active 141542112 Problem Intrinsic asthma J45.909 well-controlled 204952097 Problem Acquired immune deficiency syndrome B20 Active 73361701 Problem Hyperglycemia R73.9 Active 72760546 Problem Dysmenorrhea N94.6 well-controlled 887490472 Problem Nicotine dependence, cigarettes, uncomplicated F17.210 well- controlled 00830708 Problem Localized edema R60.0 Active 372189559 Problem Dermatitis L30.9 Active 09788342 Assessment land planner 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 Z79.891 July, Active 700427236 Problem Generalized anxiety disorder F41.1 Active 42607765 Problem Backache M54.9 Active 861109398 Assessment Acquired immune deficiency syndrome B20 July, Active 16449630 Problem GERD (gastroesophageal reflux disease) K21.9 Active 061665655 Problem Mixed hyperlipidemia E78.2 Active 378335734 Problem Migraine G43.909 Active 84385160 ALLERGIES Unknown Allergies SOCIAL HISTORY No smoking Hx information available PLAN OF CARE Activity Details Pending Test Human Immunodeficiency Virus (HIV-1), Quantitative, Real-time PCR (graph) 34103 Pending Test K-TRACS Pending Test Hemoglobin A1c Pending Test Protein and Creatinine (ratio), Random Urine Pending Test Rapid Plasma Reagin (RPR), Test w/ Reflex to Quant RPR/Confirm Treponema pallidum Antibodies 93819 Pending Test Lipid Panel 43260 Pending Test Metabolic Panel (14), Comprehensive (CMP) 72981 Pending Test CD4/CD8 Ratio Profile 92792 Pending Test QMP Plus D/L (urine) Pending Test Opioid/Opiate Agreement (Annual) 3 Months,Reason: VITAL SIGNS Height 65 in 2016-07-25 Weight 147 lbs 2016-07-25 Temperature 97.9 degrees Fahrenheit 2016-07-25 Heart Rate 83 /min 2016-07-25 Respiratory Rate 18 /min 2016-07-25 Oximetry 97 % 2016-07-25 BMI 24.46 kg/m2 2016-07-25 Blood pressure systolic 102 mm Hg 2016-07-25 Blood pressure diastolic 72 mm Hg 2016-07-25 MEDICATIONS Medication Instructions Dosage Frequency Start Date End Date Duration Status Marinol 10 MG Orally Twice a day 1 capsule before lunch and supper 12h Jun, 30 days Active Promethazine HCl 25 MG Orally three times a day 1 tablet as needed 8h Mar, 30 day(s) Active Methocarbamol 750 MG Orally every 8 hrs 1 tablet 8h 18 Dec, 2015 10 days Active [facility] Omeprazole 20 MG Orally Once a day 1 tablet 24h Mar, 30 day (s) Active Dapsone 100 MG Orally Once a day 1 tablet 24h Apr, 30 days Active Dicyclomine HCl 20 MG Orally three times a day 1 tablet 8h July, 30 day(s) Active Methocarbamol 750 Orally every 8 hrs 1 tablet 8h 10 Active Hydrochlorothiazide 25 MG Orally Once a day 1 tablet in the morning 24h July, 30 day(s) Active ProAir HFA 108 (90 Base) MCG/ACT Inhalation every 4 hrs 2 puffs as needed 4h Sep, 30 days Active Azithromycin 250 MG Orally Once a day 1 tab 24h Mar, 30 days Active Hydrocodone-Acetaminophen 10-325 MG Orally every 6 hrs 1 tablet as needed 6h 14 Nov, 2013 Aug, 30 days Active Genvoya 150 mg/150 mg/200/mg/10 mg Oral Once a day 1 tablet 24h 07 Apr, 2015 30 days Active Tramadol HCl 50 MG Orally every 6 hrs 1 tablet as needed 6h Sep, Sep, 30 days Active Zofran 8 TAKE ONE TABLET BY MOUTH EVERY 8 HOURS FOR 10 DAYS 10 Active RESULTS No Results PROCEDURES Procedure Date Ordered Related Diagnosis Body Site Office Visit, Est Pt., Level 4 July 25, 2016 COMPREHEN METABOLIC PANEL July 25, 2016 T CELL, ABSOLUTE COUNT/RATIO July 25, 2016 ASSAY OF URINE CREATININE July 25, 2016 ASSAY OF PROTEIN, URINE July 25, 2016 Billed by outside source July 25, 2016 BLOOD SEROLOGY, QUALITATIVE July 25, 2016 HIV-1, DNA, QUANT July 25, 2016 LIPID PANEL SO July 25, 2016 GLYCATED HEMOGLOBIN TEST SO July 25, 2016 IMMUNIZATIONS No Known Immunizations
--- OUTSIDE RECORDS SUMMARY | 2016-09-17 14:17 | XMS REPORT ---
Author Author Zandra Watson [facility] eClinicalWorks Address Unknown Phone Unavailable Care Team Providers Care Pouncer Machine Name Role Phone Zandra Watson CP Unavailable [...] of function of stomach 536.8 Active Problem emt intermediate (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 V58.69 Inactive [...] Instructions Start Date End Date Status Dosage Xanax [facility] [address]-43 1 MG Orally Twice a day October 05, 2013 May 17, 2014 1 tablet Results No Known Results Summary Purpose eClinicalWorks Submission
--- OUTSIDE RECORDS SUMMARY | 2016-09-17 14:18 | XMS REPORT ---
Author Author Salome Solis Organization eClinicalWorks Address Unknown Phone Unavailable Care Team Providers Care Yield Loss Inspector Name Role Phone Salome Solis CP Unavailable Allergies No Known Allergies Problems Problem Type Condition Code Onset Dates Condition Status Problem AIDS B20 Active Problem Backache M54.9 Active Problem Generalized anxiety disorder F41.1 Active Assessment Asthma, intrinsic 493.10 Active Problem Mixed hyperlipidemia E78.2 Active Problem Nicotine dependence, cigarettes, uncomplicated F17.210 Active Problem [facility] (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 Z79.891 Active Problem Dysmenorrhea N94.6 Active Problem Migraine G43.909 Active Problem GERD (gastroesophageal reflux disease) K21.9 Active Problem Intrinsic asthma J45.909 Active Problem Bipolar affective disorder F31.9 Active Medications No Known Medications Results No Known Results Summary Purpose eClinicalWorks Submission
--- OUTSIDE RECORDS SUMMARY | 2016-09-17 14:18 | XMS REPORT ---
Author Author Zandra Watson Organization [employer]Clinical[employer] Address Unknown Phone Unavailable Care Team Providers Care High Voltage Electrician Name Role Phone Zandra Watson CP Unavailable Allergies No Known Allergies Problems Problem Type Condition Code Onset Dates Condition Status Problem Generalized anxiety disorder F41.1 Active Problem GERD (gastroesophageal reflux disease) K21.9 Active Problem Backache M54.9 Active Assessment Generalized anxiety disorder F41.1 Active Problem Smoking F17.200 Active Problem Other chronic pain G89.29 Active Problem Asymptomatic HIV infection Z21 Active Problem [facility] (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 Z79.891 Active Problem Noncompliance Z91.19 Active Problem Migraine G43.909 Active Problem Intrinsic asthma J45.909 Active Problem Bipolar affective disorder F31.9 Active Medications Medication Code System Code Instructions Start Date End Date Status Dosage Xanax [facility] [address]-28 1 MG Orally Twice a day October 05, 2013 May 29, 2015 1 tablet Results No Known Results Summary Purpose eClinicalWorks Submission
--- OUTSIDE RECORDS SUMMARY | 2016-09-17 14:18 | XMS REPORT ---
Author Author Zandra Watson Organization eClinicalWorks Address Unknown Phone Unavailable Care Team Providers Care Sheet Metal Welder Name Role Phone Zandra Watson CP Unavailable Allergies No Known Allergies Problems Problem Type Condition Code Onset Dates Condition Status Problem AIDS B20 Active Problem Backache M54.9 Active Problem Generalized anxiety disorder F41.1 Active Assessment Chronic pain G89.29 Active Problem Mixed hyperlipidemia E78.2 Active Problem Nicotine dependence, cigarettes, uncomplicated F17.210 Active Problem play reader (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 Z79.891 Active Problem Dysmenorrhea N94.6 Active Problem Migraine G43.909 Active Problem GERD (gastroesophageal reflux disease) K21.9 Active Problem Intrinsic asthma J45.909 Active Problem Bipolar affective disorder F31.9 Active Medications Medication Code System Code Instructions Start Date End Date Status Dosage Tramadol HCl [facility] [address]-27 50 MG Orally every 6 hrs October 08, 2015 1 tablet as needed Results No Known Results Summary Purpose eClinicalWorks Submission
--- OUTSIDE RECORDS SUMMARY | 2016-09-17 14:18 | XMS REPORT ---
Author Author Zandra Watson [facility] eClinicalWorks Address Unknown Phone Unavailable Care Team Providers Care Assembler Filters Name Role Phone Zandra Watson Unavailable Allergies [...] J45.909 Active Problem Dermatitis L30.9 Active Problem nursing home (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 Z79.891 Active Assessment Upper respiratory infection J06.9 Active Problem Chronic pain G89.29 Active Problem Smoking F17.200 Active Problem Generalized anxiety disorder F41.1 Active Problem Mixed hyperlipidemia E78.2 Active Problem Backache M54.9 Active Problem AIDS B20 Active Problem GERD (gastroesophageal reflux disease) K21.9 Active Medications Medication Code System Code Instructions Start Date End Date Status Dosage [facility] Omeprazole [facility] [address]-86 20 MG Orally Once a day Apr 13, 2015 1 tablet Cyclobenzaprine HCl ND 0 TAKE ONE TABLET BY MOUTH THREE TIMES A DAY Marinol [facility] [address]-41 10 MG Orally Twice a day June 18, 2015 1 capsule before lunch and supper Hydrocodone-Acetaminophen [facility] [address]-77 10-325 MG Orally every 6 hrs Nov 27, 2013 Nov 07, 2015 1 tablet as needed Genvoya [facility] [address]-54 150 mg/150 mg/200/mg/10 mg Oral Once a day Apr 1 tablet Proventil HFA [facility] [id number] 90 Inhalation every 4 hrs 2 puffs as needed Zofran [facility] [address]-63 8 MG Orally every 8 hrs Feb 13, 2015 1 tablet as needed Celexa [facility] [address]-71 20 MG Orally Once a day June 01, 2015 1 tablet Zithromax Z-Riky [facility] [address]-09 250 MG Orally Once a day October 08, 2015 October 13, 2015 2 tablets on the first day, then 1 tablet daily for 4 days [address]SONE [facility] [address]-50 10 MG Orally 8tabs day1,7tabs day2,6tabs day3, 5tabs day4,4tabs day5,3tabs day6,2tabs day7,1tab day8 October 08, 2015 Oct 16, 2015 tablet Tramadol HCl [facility] [address]-33 50 MG Orally every 6 hrs October 08, 2015 1 tablet as needed Dapsone [facility] [address]-40 100 MG Orally Once a day May 09, 2015 1 tablet [address]anax [facility] [address]-13 1 MG Orally Twice a day October 05, 2013 Oct 15, 2015 1 tablet as needed Symbicort [facility] [address]-12 160-4.5 MCG/ACT Inhalation Twice a day May 01, 2014 2 puffs ProAir HFA [facility] [address]-00 108 (90 Base) MCG/ACT Inhalation every 4 hrs October 08, 2015 2 puffs as needed Results No Known Results Summary Purpose eClinicalWorks Submission
--- OUTSIDE RECORDS SUMMARY | 2016-09-17 14:18 | XMS REPORT ---
Author Author Zandra Watosn [facility] eClinicalWorks Address Unknown Phone Unavailable Care Team Providers Care Packing Line Operator Name Role Phone Zandra Watson CP [...] J45.909 Active Problem Dermatitis L30.9 Active Problem [facility] (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 Z79.891 Active Problem Chronic pain G89.29 Active Problem Smoking F17.200 Active Problem Generalized anxiety disorder F41.1 Active Problem Mixed hyperlipidemia E78.2 Active Problem Backache M54.9 Active Problem AIDS B20 Active Problem GERD (gastroesophageal reflux disease) K21.9 Active Medications Medication Code System Code Instructions Start Date End Date Status Dosage Cyclobenzaprine HCl [facility] [address]-24 10 MG Orally Three times a day 1 tablet as needed Results No Known Results Summary Purpose eClinicalWorks Submission
--- OUTSIDE RECORDS SUMMARY | 2016-09-17 14:18 | XMS REPORT ---
Author Author Zandra Watson [facility] eClinicalWorks Address Unknown Phone Unavailable Care Team Providers Care Traffic Court Magistrate Name Role Phone Zandra Watson Unavailable Allergies No Known Allergies Problems Problem Type Condition ICD-9 Code Onset Dates Condition Status Problem Migraine 346.90 Active Problem Noncompliance V15.81 Active Problem Asthma, intrinsic 493.10 Active Assessment Dysphagia 787.20 Active Assessment Unspecified backache 724.5 Active Problem Nondependent tobacco use disorder 305.1 Active Problem Bipolar disorder, unspecified 296.80 Active Problem Asymptomatic human immunodeficiency virus (HIV) infection status V08 Active Problem Other chronic pain 338.29 Active Problem Generalized anxiety disorder 300.02 Active Problem Esophageal reflux 530.81 Active Problem Unspecified backache 724.5 Active Medications Medication Code System Code Instructions Start Date End Date Status Dosage Stribild [facility] [address]-16 343-502-821-300 MG Oral 1 (one) Tablet daily June 18, 2013 not defined Zithromax Z-Riky [facility] [address]-09 250 MG Orally Once a day Mar 29, 2014 Oct 20, 2014 2 tablets on the first day, then 1 tablet daily for 4 days Hydrocodone-Acetaminophen [facility] [address]-16 10-325 MG Orally every 4-6 hrs Nov 27, 2013 Nov 03, 2014 1 tablet as needed Cyclobenzaprine HCl [facility] [address]-41 10 MG Orally Three times a day 1 tablet Symbicort [facility] [address]-27 160-4.5 MCG/ACT Inhalation Twice a day May 01, 2014 2 puffs PredniSONE [facility] [address]-56 10 MG Orally 8tabs day1,7tabs day2,6tabs day3, 5tabs day4,4tabs day5,3tabs day6,2tabs day7,1tab day8 August 14, 2014 Oct 23, 2014 tablet Proventil HFA [facility] [address]-86 108 (90 Base) MCG/ACT Inhalation every 4 hrs July 15, 2012 2 puffs as needed Results No Known Results Summary Purpose eClinicalWorks Submission
--- OUTSIDE RECORDS SUMMARY | 2016-09-17 14:18 | XMS REPORT ---
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
--- OUTSIDE RECORDS SUMMARY | 2016-09-17 14:18 | XMS REPORT ---
Author Author Zandra Watson Organization eClinicalWorks Address Unknown Phone Unavailable Care Team Providers Care Brazer Repair And Salvage Name Role Phone Zandra Watson CP Unavailable Allergies No Known Allergies Problems Problem Type Condition Code Onset Dates Condition Status Problem AIDS B20 Active Problem Backache M54.9 Active Problem Generalized anxiety disorder F41.1 Active Assessment Backache M54.9 Active Problem Mixed hyperlipidemia E78.2 Active Problem Nicotine dependence, cigarettes, uncomplicated F17.210 Active Problem retirement (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 Z79.891 Active Problem Dysmenorrhea N94.6 Active Problem Migraine G43.909 Active Problem GERD (gastroesophageal reflux disease) K21.9 Active Problem Intrinsic asthma J45.909 Active Problem Bipolar affective disorder F31.9 Active Medications Medication Code System Code Instructions Start Date End Date Status Dosage Hydrocodone-Acetaminophen [facility] [address]-00 10-325 MG Orally every 6 hrs Nov 27, 2013 Apr 04, 2016 1 tablet as needed Results No Known Results Summary Purpose eClinicalWorks Submission
--- OUTSIDE RECORDS SUMMARY | 2016-09-17 14:18 | XMS REPORT ---
Author Author Zandra Watson Organization eClinicalWorks Address Unknown Phone Unavailable Care Team Providers Care Marketing Operations Assistant Name Role Phone Zandra Watson CP Unavailable [...]
--- OUTSIDE RECORDS SUMMARY | 2016-09-17 14:18 | XMS REPORT ---
Author Author Zandra Watson Organization eClinicalWorks Address Unknown Phone Unavailable Care Team Providers Care Master Motorcycle Technician Name Role Phone Zandra Watson CP Unavailable Allergies No Known Allergies Problems Problem Type Condition Code Onset Dates Condition Status Problem Smoking F17.200 Active Problem Backache M54.9 Active Problem Generalized anxiety disorder F41.1 Active Assessment Generalized anxiety disorder F41.1 Active Problem Asymptomatic HIV infection Z21 Active Problem Intrinsic asthma J45.909 Active Problem Other chronic pain G89.29 Active Problem Migraine G43.909 Active Problem GERD (gastroesophageal reflux disease) K21.9 Active Problem Bipolar affective disorder F31.9 Active Problem Noncompliance Z91.19 Active Medications Medication Code System Code Instructions Start Date End Date Status Dosage Stribild [facility] [address]-29 [phone] MG Orally Once a day 1 tablet Xanax [facility] [address]-72 1 MG Orally Twice a day October 05, 2013 Apr 13, 2015 1 tablet Results No Known Results Summary Purpose eClinicalWorks Submission
--- OUTSIDE RECORDS SUMMARY | 2016-09-17 14:18 | XMS REPORT ---
Author Author Zandra Watson Organization eClinicalWorks Address Unknown Phone Unavailable Care Team Providers Care Spanish Interpreter/Translator Name Role Phone Zandra Watson Unavailable Allergies No Known Allergies Problems Problem Type Condition ICD-9 Code Onset Dates Condition Status Problem Migraine 346.90 Active Problem Noncompliance V15.81 Active Problem Asthma, intrinsic 493.10 Active Assessment Other chronic pain 338.29 Active Problem Nondependent tobacco use disorder 305.1 Active Problem Bipolar disorder, unspecified 296.80 Active Problem Asymptomatic human immunodeficiency virus (HIV) infection status V08 Active Problem Other chronic pain 338.29 Active Problem Generalized anxiety disorder 300.02 Active Problem Esophageal reflux 530.81 Active Problem Unspecified backache 724.5 Active Medications Medication Code System Code Instructions Start Date End Date Status Dosage Hydrocodone-Acetaminophen [facility] [address]-18 10-325 MG Orally every 4-6 hrs Nov 27, 2013 Dec 04, 2014 1 tablet as needed Symbicort [facility] [address]-72 160-4.5 MCG/ACT Inhalation Twice a day May 01, 2014 2 puffs Xanax [facility] [address]-98 1 MG Orally Twice a day October 05, 2013 Dec 25, 2014 1 tablet Cyclobenzaprine HCl [facility] [address]-83 10 MG Orally Three times a day 1 tablet Stribild [facility] [address]-08 111-228-549-300 MG Oral 1 (one) Tablet daily June 18, 2013 not defined Proventil HFA [facility] [address]-82 108 (90 Base) MCG/ACT Inhalation every 4 hrs July 15, 2012 2 puffs as needed Results No Known Results Summary Purpose eClinicalWorks Submission
--- OUTSIDE RECORDS SUMMARY | 2016-09-17 14:19 | XMS REPORT ---
Author Author Zandra Watson [facility] eClinicalWorks Address Unknown Phone Unavailable Care Team Providers Care Adjunct Instructor Name Role Phone Zandar Watson CP Unavailable Allergies No Known Allergies Problems Problem Type Condition Code Onset Dates Condition Status Problem Migraine G43.909 Active Problem Bipolar affective disorder F31.9 Active Problem Noncompliance Z91.19 Active Problem Nausea and vomiting R11.2 Active Problem Depression with anxiety F41.8 Active Problem Edema R60.9 Active Problem Other chronic pain G89.29 Active Problem Intrinsic asthma J45.909 Active Problem Dermatitis L30.9 Active Problem correction (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 Z79.891 Active Assessment Chronic pain G89.29 Active Problem Chronic pain G89.29 Active Problem Smoking F17.200 Active Problem Generalized anxiety disorder F41.1 Active Problem Mixed hyperlipidemia E78.2 Active Problem Backache M54.9 Active Problem AIDS B20 Active Problem GERD (gastroesophageal reflux disease) K21.9 Active Medications Medication Code System Code Instructions Start Date End Date Status Dosage Tramadol HCl [facility] [address]-32 50 MG Orally every 6 hrs October 08, 2015 1 tablet as needed Results No Known Results Summary Purpose eClinicalWorks Submission
--- OUTSIDE RECORDS SUMMARY | 2016-09-17 14:19 | XMS REPORT ---
Author Author Zandra Watson Organization eClinicalWorks Address Unknown Phone Unavailable Care Team Providers Care Safety Physician Name Role Phone Zandra Watson CP Unavailable [...] J45.909 Active Problem Dermatitis L30.9 Active Problem [facility] (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 [...]
--- OUTSIDE RECORDS SUMMARY | 2016-09-17 14:19 | XMS REPORT ---
Author Author Zandra Watson [facility] eClinicalWorks Address Unknown Phone Unavailable Care Team Providers Care River Expedition Guide Name Role Phone Zandra Watson Unavailable Allergies [...] V04.81 Inactive Problem Migraine 346.90 Active Problem care home (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 V58.69 Inactive Problem Chronic pain syndrome 338.4 Inactive Problem Lumbago 724.2 Inactive Problem Abdominal pain, right lower quadrant 789.03 Inactive Problem Abdominal pain, left lower quadrant 789.04 Inactive Problem Simple chronic bronchitis 491.0 Inactive Problem Need for prophylactic vaccination against streptococcus pneumoniae ( pneumococcus) V03.82 Inactive Medications Medication Code System Code Instructions Start Date End Date Status Dosage Symbicort [facility] [address]-11 160-4.5 MCG/ACT Inhalation Twice a day May 01, 2014 2 puffs Proventil HFA [facility] [address]-61 108 (90 Base) MCG/ACT Inhalation every 4 hrs July 15, 2012 2 puffs as needed Stribild [facility] [address]-98 [phone] MG Oral 1 (one) Tablet daily June 18, 2013 not defined Hydrocodone-Acetaminophen [facility] [address]-76 10-325 MG Orally every 4-6 hrs Nov 27, 2013 September 04, 2014 1 tablet as needed Tramadol HCl [facility] [address]-31 50 MG Orally every 8 hrs September 25, 2014 1 tablet as needed Cyclobenzaprine HCl [facility] [address]-66 10 MG Orally Three times a day 1 tablet Results No Known Results Summary Purpose eClinicalWorks Submission
--- OUTSIDE RECORDS SUMMARY | 2016-09-17 14:19 | XMS REPORT ---
Author Author Zandra Watson [facility] eClinicalWorks Address Unknown Phone Unavailable Care Team Providers Care Cone Trucker Name Role Phone Zandra Watson CP Unavailable [...] of function of stomach 536.8 Active Problem instrumentation and controls designer (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 V58.69 Inactive [...] Instructions Start Date End Date Status Dosage Escitalopram Oxalate [facility] [address]-50 20 MG Orally Once a day 2014 1 tablet Zithromax Z-Riky [facility] [address]-38 250 MG Orally Once a day Mar 29, 2014 2 tablets on the first day, then 1 tablet daily for 4 days Augmentin [facility] [address]-86 875-125 MG Orally Twice a day May 01, 2014 1 tablet Tramadol HCl [facility] [address]-71 50 MG Orally three times a day June 09, 2014 July 08, 2014 1 tablet as needed PredniSONE [facility] [address]-15 10 MG Orally Once a day Mar 29, 2014 taper - 8,7,6,5,4,3,2,1 Proventil HFA [facility] [address]-22 108 (90 Base) MCG/ACT Inhalation 2-4 puffs every foursix hours July 15, 2012 not defined Cyclobenzaprine HCl [facility] [address]-52 10 MG Orally Three times a day 1 tablet Xanax [facility] [address]-61 1 MG Orally Twice a day October 05, 2013 July 18, 2014 1 tablet PredniSONE [facility] [address]-47 10 MG Orally Once a day June 20, 2014 8 tab/day1 7tab/day2 6tab/day3 5tab/day4 4tab/day5 3tab/day6 2tab/day7 1tab/day8 Azithromycin [facility] [address]-55 250 MG Orally Once a day June 28, 2014 2 tablets on the first day, then 1 tablet daily for 4 days Stribild [facility] [address]-09 009-946-110-300 MG Oral 1 (one) Tablet daily June 18, 2013 not defined Symbicort [facility] [address]-37 160-4.5 MCG/ACT Inhalation Twice a day May 01, 2014 2 puffs PredniSONE [facility] [address]-98 10 MG Orally day1:8tab day2:7tab day3:6tab day4 :5tab day5:4tab day6:3tab day7:2tab day8:1tab June 28, 2014 as directed Results No Known Results Summary Purpose eClinicalWorks Submission
--- OUTSIDE RECORDS SUMMARY | 2016-09-17 14:19 | XMS REPORT ---
Author Author Zandra Watson Organization eClinicalWorks Address Unknown Phone Unavailable Care Team Providers Care Plate Furnace Operator Name Role Phone Zandra Watson CP Unavailable Allergies No Known Allergies Problems Problem Type Condition Code Onset Dates Condition Status Problem Generalized anxiety disorder F41.1 Active Problem GERD (gastroesophageal reflux disease) K21.9 Active Problem Backache M54.9 Active Assessment Other chronic pain G89.29 Active Problem Asymptomatic HIV infection Z21 Active Problem Intrinsic asthma J45.909 Active Problem Other chronic pain G89.29 Active Problem Migraine G43.909 Active Problem Tobacco use disorder Z72.0 Active Problem Bipolar affective disorder F31.9 Active Problem Noncompliance Z91.19 Active Medications Medication Code System Code Instructions Start Date End Date Status Dosage Cyclobenzaprine HCl [facility] [address]-69 10 MG Orally Three times a day 1 tablet Stribild [facility] [address]-64 322-991-105-300 MG Oral 1 (one) Tablet daily June 18, 2013 not defined Proventil HFA [facility] [address]-29 108 (90 Base) MCG/ACT Inhalation every 4 hrs July 15, 2012 2 puffs as needed Hydrocodone-Acetaminophen [facility] [address]-87 10-325 MG Orally every 4-6 hrs Nov 27, 2013 Mar 03, 2015 1 tablet as needed Symbicort [facility] [address]-17 160-4.5 MCG/ACT Inhalation Twice a day May 01, 2014 2 puffs Fluconazole [facility] [address]-47 100 MG Orally Once a day Nov 17, 2014 1 tablet Results No Known Results Summary Purpose eClinicalWorks Submission
--- OUTSIDE RECORDS SUMMARY | 2016-09-17 14:19 | XMS REPORT ---
Author Author Zandra Watson [facility] eClinicalWorks Address Unknown Phone Unavailable Care Team Providers Care Pharmacy Intake Coordinator Name Role Phone Zandra Watson Unavailable Allergies No Known Allergies Problems Problem Type Condition Code Onset Dates Condition Status Problem Generalized anxiety disorder F41.1 Active Problem GERD (gastroesophageal reflux disease) K21.9 Active Problem Backache M54.9 Active Problem Asymptomatic HIV infection Z21 Active Problem Intrinsic asthma J45.909 Active Problem Other chronic pain G89.29 Active Problem Migraine G43.909 Active Problem Tobacco use disorder Z72.0 Active Problem Bipolar affective disorder F31.9 Active Problem Noncompliance Z91.19 Active Assessment GERD (gastroesophageal reflux disease) K21.9 Active Assessment Tobacco use disorder Z72.0 Active Assessment Generalized anxiety disorder F41.1 Active Assessment Backache M54.9 Active Assessment Bipolar affective disorder F31.9 Active Assessment Intrinsic asthma J45.909 Active Assessment Migraine G43.909 Active Assessment Asymptomatic HIV infection Z21 Active Assessment Noncompliance Z91.19 Active Assessment Other chronic pain G89.29 Active Medications Medication Code System Code Instructions Start Date End Date Status Dosage Hydrocodone-Acetaminophen [facility] [address]-32 10-325 MG Orally every 4-6 hrs Nov 27, 2013 Feb 01, 2015 1 tablet as needed Fluconazole [facility] [address]-33 100 MG Orally Once a day Nov 17, 2014 1 tablet Stribild [facility] [address]-72 [phone] MG Oral 1 (one) Tablet daily June 18, 2013 not defined Cyclobenzaprine HCl [facility] [address]-98 10 MG Orally Three times a day 1 tablet Xanax [facility] [address]-97 1 MG Orally Twice a day October 05, 2013 Dec 25, 2014 1 tablet Proventil HFA [facility] [address]-86 108 (90 Base) MCG/ACT Inhalation every 4 hrs July 15, 2012 2 puffs as needed Symbicort [facility] [address]-49 160-4.5 MCG/ACT Inhalation Twice a day May 01, 2014 2 puffs Results No Known Results Summary Purpose eClinicalWorks Submission
--- OUTSIDE RECORDS SUMMARY | 2016-09-17 14:19 | XMS REPORT ---
Author Author Zandra Watson [facility] Address [address], [place] [address] Care Team Providers Care Patient Safety Manager Name Role Phone Zandra Watson Unavailable PROBLEMS Type Condition ICD9-CM Code [id number] Code Onset Dates Condition Status SNOMED Code Problem Generalized anxiety disorder F41.1 Active 17735342 Problem GERD (gastroesophageal reflux disease) K21.9 Active 284441977 Problem Backache M54.9 Active 242321722 Assessment Chronic pain G89.29 Feb, Active 56873278 Problem Mixed hyperlipidemia E78.2 Active 221044712 Problem AIDS B20 Active 51322244 Problem Dysmenorrhea N94.6 well-controlled 040069611 Problem Nicotine dependence, cigarettes, uncomplicated F17.210 well- controlled 70227138 Problem Bipolar affective disorder F31.9 Active 58295741 Problem Migraine G43.909 Active 48577029 Problem intermediate manager (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 Z79.891 Active 233134010 Problem Intrinsic asthma J45.909 well-controlled 516652299 ALLERGIES Unknown Allergies SOCIAL HISTORY No smoking Hx information available PLAN OF CARE VITAL SIGNS MEDICATIONS Medication Instructions Dosage Frequency Start Date End Date Duration Status ProAir HFA 108 (90 Base) MCG/ACT Inhalation every 4 hrs 2 puffs as needed 4h Sep, 30 days Active Dapsone 100 MG Orally Once a day 1 tablet 24h Apr, 30 days Active Proventil HFA 90 INHALE TWO PUFFS BY MOUTH EVERY 4 HOURS 16 Active Tramadol HCl 50 MG Orally every 6 hrs 1 tablet as needed 6h Sep, 30 days Active Hydrocodone-Acetaminophen 10-325 MG Orally every 6 hrs 1 tablet as needed 6h 14 Nov, 2013 Mar, 30 days Active Genvoya 150 mg/150 mg/200/mg/10 mg Oral Once a day 1 tablet 24h Apr, 30 days Active Methocarbamol 750 MG Orally every 8 hrs 1 tablet 8h 18 Dec, 2015 10 days Active Sulfacetamide Sodium 10 % Ophthalmic three times a day 1 drop into affected eye 8h Jan, 7 days Active [facility] Omeprazole 20 MG Orally Once a day 1 tablet 24h Mar, 30 day (s) Active Marinol 10 MG Orally Twice a day 1 capsule before lunch and supper 12h Jun, 30 days Active Zofran 8 MG Orally every 8 hrs 1 tablet as needed 8h 17 Oct, 2015 10 Active RESULTS No Results PROCEDURES No Known procedures IMMUNIZATIONS No Known Immunizations
--- OUTSIDE RECORDS SUMMARY | 2016-09-17 14:19 | XMS REPORT ---
Author Author Zandra Watson [facility] eClinicalWorks Address Unknown Phone Unavailable Care Team Providers Care Private Banker Name Role Phone Zandra Watson Unavailable Allergies [...] J45.909 Active Problem Dermatitis L30.9 Active Problem skilled nursing (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 Z79.891 Active Assessment Acute upper respiratory infection, unspecified J06.9 Active Problem Chronic pain G89.29 Active Problem Smoking F17.200 Active Problem Generalized anxiety disorder F41.1 Active Problem Mixed hyperlipidemia E78.2 Active Problem Backache M54.9 Active Problem AIDS B20 Active Problem GERD (gastroesophageal reflux disease) K21.9 Active Medications Medication Code System Code Instructions Start Date End Date Status Dosage Marinol [facility] [address]-44 10 MG Orally Twice a day June 18, 2015 1 capsule before lunch and supper Proventil HFA [facility] 78169709730 90 Inhalation every 4 hrs 2 puffs as needed ProAir HFA [facility] [address]-58 108 (90 Base) MCG/ACT Inhalation every 4 hrs October 08, 2015 2 puffs as needed Hydrocodone-Acetaminophen [facility] [address]-94 10-325 MG Orally every 6 hrs Nov 27, 2013 Nov 07, 2015 1 tablet as needed Zithromax Z-Riky [facility] [address]-78 250 MG Orally Once a day October 08, 2015 October 13, 2015 2 tablets on the first day, then 1 tablet daily for 4 days Cyclobenzaprine HCl ND 0 TAKE ONE TABLET BY MOUTH THREE TIMES A DAY Celexa [facility] [address]-37 20 MG Orally Once a day June 01, 2015 1 tablet Augmentin [facility] [address]-88 875-125 MG Orally every 12 hrs October 09, 2015 Oct 19, 2015 1 tablet Xanax [facility] [address]-54 1 MG Orally Twice a day October 05, 2013 Oct 15, 2015 1 tablet as needed Symbicort [facility] [address]-25 160-4.5 MCG/ACT Inhalation Twice a day May 01, 2014 2 puffs Dapsone [facility] [address]-53 100 MG Orally Once a day May 09, 2015 1 tablet Tramadol HCl [facility] [address]-78 50 MG Orally every 6 hrs October 08, 2015 1 tablet as needed Zofran [facility] [address]-15 8 MG Orally every 8 hrs Feb 13, 2015 1 tablet as needed [facility] Omeprazole [facility] [address]-69 20 MG Orally Once a day Apr 13, 2015 1 tablet Genvoya [facility] [address]-35 150 mg/150 mg/200/mg/10 mg Oral Once a day Apr 1 tablet PredniSONE [facility] [address]-01 10 MG Orally 8tabs day1,7tabs day2,6tabs day3, 5tabs day4,4tabs day5,3tabs day6,2tabs day7,1tab day8 October 08, 2015 Oct 16, 2015 tablet Results No Known Results Summary Purpose eClinicalWorks Submission
--- OUTSIDE RECORDS SUMMARY | 2016-09-17 14:20 | XMS REPORT ---
Author Author Zandra Watson [facility] Address [address] [place] [address], [place] [address] Care Team Providers Care Stock Broker Name Role Phone Zandra Watson Unavailable PROBLEMS Type Condition ICD9-CM Code [id number] Code Onset Dates Condition Status SNOMED Code Problem Bipolar affective disorder F31.9 Active 42405883 Problem snf (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 Z79.891 Active 102057668 Problem Intrinsic asthma J45.909 Active 648672438 Problem Acquired immune deficiency syndrome B20 Active 76727824 Problem Hyperglycemia R73.9 Active 99350998 Problem Dysmenorrhea N94.6 Active 932777237 Problem Nicotine dependence, cigarettes, uncomplicated F17.210 Active 87088475 Problem Localized edema R60.0 Active 372247439 Problem Dermatitis L30.9 Active 40593196 Problem Generalized anxiety disorder F41.1 Active 73529789 Problem Backache M54.9 Active 640463296 Problem GERD (gastroesophageal reflux disease) K21.9 Active 682528684 Problem Mixed hyperlipidemia E78.2 Active 725609669 Problem Migraine G43.909 Active 80352091 ALLERGIES Unknown Allergies SOCIAL HISTORY No smoking Hx information available PLAN OF CARE VITAL SIGNS MEDICATIONS Unknown Medications RESULTS No Results PROCEDURES No Known procedures IMMUNIZATIONS No Known Immunizations
--- OUTSIDE RECORDS SUMMARY | 2016-09-17 14:20 | XMS REPORT ---
Author Author Zandra Watson [facility] Address [address] [place], [place] [address] Care Team Providers Care Parking Enforcement Manager Name Role Phone Zandra Watson Unavailable PROBLEMS Type Condition ICD9-CM Code [id number] Code Onset Dates Condition Status SNOMED Code Problem Backache M54.9 Active 820866688 Problem Migraine G43.909 Active 13946819 Problem GERD (gastroesophageal reflux disease) K21.9 Active 253395484 Assessment Chronic pain G89.29 Jun, Active 91283819 Problem Mixed hyperlipidemia E78.2 Active 704741764 Problem AIDS B20 Active 66220559 Problem Generalized anxiety disorder F41.1 Active 59799125 Problem Dermatitis L30.9 Active 37812114 Problem Dysmenorrhea N94.6 well-controlled 604578457 Problem Intrinsic asthma J45.909 well-controlled 827394060 Problem Bipolar affective disorder F31.9 Active 96022939 Problem Nicotine dependence, cigarettes, uncomplicated F17.210 well- controlled 00058338 Problem [facility] (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 Z79.891 Active 439921688 ALLERGIES Unknown Allergies SOCIAL HISTORY No smoking Hx information available PLAN OF CARE VITAL SIGNS MEDICATIONS Medication Instructions Dosage Frequency Start Date End Date Duration Status Tramadol HCl 50 MG Orally every 6 hrs 1 tablet as needed 6h Sep, Sep, 30 days Active RESULTS No Results PROCEDURES No Known procedures IMMUNIZATIONS No Known Immunizations
--- OUTSIDE RECORDS SUMMARY | 2016-09-17 14:20 | XMS REPORT ---
Author Author Zandra Watson Organization eClinicalWorks Address Unknown Phone Unavailable Care Team Providers Care Retail Brand Ambassador Name Role Phone Zandra Watson CP Unavailable [...] J45.909 Active Problem Dermatitis L30.9 Active Problem long-term (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 Z79.891 Active Problem Chronic pain G89.29 Active Problem Smoking F17.200 Active Problem Generalized anxiety disorder F41.1 Active Problem Mixed hyperlipidemia E78.2 Active Problem Backache M54.9 Active Problem AIDS B20 Active Problem GERD (gastroesophageal reflux disease) K21.9 Active Medications No Known Medications Results No Known Results Summary Purpose eClinicalWorks Submission
--- OUTSIDE RECORDS SUMMARY | 2016-09-17 14:20 | XMS REPORT ---
Author Author Zandra Waston [facility] Address [address] [place], [place] [address] Care Team Providers Care Residential Support Specialist Name Role Phone Zandra Watson Unavailable PROBLEMS Type Condition ICD9-CM Code IOG38-XL Code Onset Dates Condition Status SNOMED Code Problem Bipolar affective disorder F31.9 Active 74843498 Problem alf (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 Z79.891 Active 069320047 Problem Intrinsic asthma J45.909 Active 008172794 Problem Acquired immune deficiency syndrome B20 Active 31207469 Problem Hyperglycemia R73.9 Active 40209590 Problem Dysmenorrhea N94.6 Active 587312878 Problem Nicotine dependence, cigarettes, uncomplicated F17.210 Active 65230135 Problem Localized edema R60.0 Active 706274728 Problem Dermatitis L30.9 Active 25558734 Problem Generalized anxiety disorder F41.1 Active 01443493 Problem Backache M54.9 Active 120243919 Problem GERD (gastroesophageal reflux disease) K21.9 Active 044814756 Problem Mixed hyperlipidemia E78.2 Active 951696978 Problem Migraine G43.909 Active 38347560 ALLERGIES Unknown Allergies SOCIAL HISTORY No smoking Hx information available PLAN OF CARE VITAL SIGNS MEDICATIONS Unknown Medications RESULTS No Results PROCEDURES No Known procedures IMMUNIZATIONS No Known Immunizations
--- OUTSIDE RECORDS SUMMARY | 2016-09-17 14:20 | XMS REPORT ---
Author Author Zandra Watson Organization eClinicalWorks Address Unknown Phone Unavailable Care Team Providers Care Irrigation Tax Assessor Collector Name Role Phone Zandra Watson CP Unavailable Allergies No Known Allergies Problems Problem Type Condition Code Onset Dates Condition Status Problem AIDS B20 Active Problem Backache M54.9 Active Problem Generalized anxiety disorder F41.1 Active Problem Mixed hyperlipidemia E78.2 Active Problem Nicotine dependence, cigarettes, uncomplicated F17.210 Active Problem terminal supervisor (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 Z79.891 Active Problem Dysmenorrhea N94.6 Active Problem Migraine G43.909 Active Problem GERD (gastroesophageal reflux disease) K21.9 Active Problem Intrinsic asthma J45.909 Active Problem Bipolar affective disorder F31.9 Active Medications No Known Medications Results No Known Results Summary Purpose eClinicalWorks Submission
--- OUTSIDE RECORDS SUMMARY | 2016-09-17 14:20 | XMS REPORT ---
Author Author Zandra Watson [facility] eClinicalWorks Address Unknown Phone Unavailable Care Team Providers Care Procedures Analyst Name Role Phone Zandra Watson CP Unavailable [...] Active Problem Unspecified backache 724.5 Active Assessment URI (upper respiratory infection) 465.9 Active Problem Unspecified dental caries 521.00 Inactive Problem Bipolar disorder, unspecified 296.80 Active Problem Esophageal reflux 530.81 Active Problem Symptomatic menopausal or female climacteric states 627.2 Inactive Problem Need for prophylactic vaccination and inoculation, Influenza V04.81 Inactive Problem Dyspepsia and other specified disorders of function of stomach 536.8 Active Problem crankshaft balancer (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 V58.69 Inactive [...] Instructions Start Date End Date Status Dosage PredniSONE [facility] [address]-44 10 MG Orally day1:8tab day2:7tab day3:6tab day4 :5tab day5:4tab day6:3tab day7:2tab day8:1tab June 28, 2014 as directed Azithromycin [facility] [address]-83 250 MG Orally Once a day June 28, 2014 2 tablets on the first day, then 1 tablet daily for 4 days Results No Known Results Summary Purpose eClinicalWorks Submission
--- OUTSIDE RECORDS SUMMARY | 2016-09-17 14:20 | XMS REPORT ---
Author Author Zandra Watson [facility] eClinicalWorks Address Unknown Phone Unavailable Care Team Providers Care Hand Sewer Name Role Phone Zandra Watson Unavailable Allergies No Known Allergies Problems Problem Type Condition Code Onset Dates Condition Status Problem Generalized anxiety disorder F41.1 Active Problem GERD (gastroesophageal reflux disease) K21.9 Active Problem Backache M54.9 Active Problem Other chronic pain G89.29 Active Problem Asymptomatic HIV infection Z21 Active Problem prison (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 Z79.891 Active Problem Noncompliance Z91.19 Active Problem Migraine G43.909 Active Problem Intrinsic asthma J45.909 Active Problem Bipolar affective disorder F31.9 Active Assessment Influenza vaccine administered Z23 Active Assessment Bipolar affective disorder F31.9 Active Assessment prison (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 Z79.891 Active Assessment Generalized anxiety disorder F41.1 Active Assessment Asymptomatic HIV infection Z21 Active Assessment Smoking F17.200 Active Problem Smoking F17.200 Active Medications Medication Code System Code Instructions Start Date End Date Status Dosage Tramadol HCl [facility] [address]-41 50 MG Orally every 4-6 hrs Apr 13, 2015 1 tablet as needed Genvoya [facility] [address]-67 150 mg/150 mg/200/mg/10 mg Oral Once a day Apr 1 tablet Hydrocodone-Acetaminophen [facility] [address]-67 10-325 MG Orally every 4-6 hrs Nov 27, 2013 Apr 02, 2015 1 tablet as needed Xanax [facility] [address]-76 1 MG Orally Twice a day October 05, 2013 Apr 13, 2015 1 tablet [facility] Omeprazole [facility] [address]-77 20 MG Orally Once a day Apr 13, 2015 1 tablet Procedures Procedure Coding System Code Date HIV-1, DNA, AMP PROBE CPT-4 96984 Apr 13, 2015 T CELL, ABSOLUTE COUNT/RATIO CPT-4 42005 Apr 13, 2015 Billed by outside source CPT-4 NOBLL Apr 13, 2015 Flu vaccine no Preserv 3 and > CPT-4 15069 Apr 13, 2015 Office Visit, Est Pt., Level 3 CPT-4 55480 Apr 13, 2015 IMMUNIZATION ADMIN CPT-4 80723 Apr 13, 2015 Vital Signs Date/Time: Apr 13, 2015 Temperature 97.7 F Weight 136.3 lbs Height 65 in Respiratory Rate 18 /min Cardiac Monitoring Heart Rate 96 /min Blood Pressure Diastolic 72 mm Hg Blood Pressure Systolic 106 mm Hg BMI 22.68 Index Results Name Result Date Reference Range Unit Abnormality Flag Opioid/Opiate Agreement (Annual) QMP Plus D/L (urine) Immunizations Vaccine Administration Date Influenza, seasonal, injectable, preservative free, 3 yrs and above Apr 13, 2015 Summary Purpose eClinicalWorks Submission
--- OUTSIDE RECORDS SUMMARY | 2016-09-17 14:20 | XMS REPORT ---
Author Author Zandra Watson [facility] Address [address] [place], [place] [address] Care Team Providers Care Laborer Car Barn Name Role Phone Zandra Watson Unavailable PROBLEMS Type Condition ICD9-CM Code [id number] Code Onset Dates Condition Status SNOMED Code Problem Bipolar affective disorder F31.9 Active 90802081 Problem residential (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 Z79.891 Active 376861510 Problem Intrinsic asthma J45.909 Active 983038651 Problem Acquired immune deficiency syndrome B20 Active 02929895 Problem Hyperglycemia R73.9 Active 64128218 Problem Dysmenorrhea N94.6 Active 056090150 Problem Nicotine dependence, cigarettes, uncomplicated F17.210 Active 71317546 Problem Localized edema R60.0 Active 491902909 Problem Dermatitis L30.9 Active 12759047 Problem Generalized anxiety disorder F41.1 Active 09983338 Problem Backache M54.9 Active 510845630 Problem GERD (gastroesophageal reflux disease) K21.9 Active 852431458 Problem Mixed hyperlipidemia E78.2 Active 000620375 Problem Migraine G43.909 Active 21691745 ALLERGIES Unknown Allergies SOCIAL HISTORY No smoking Hx information available PLAN OF CARE VITAL SIGNS MEDICATIONS Unknown Medications RESULTS No Results PROCEDURES No Known procedures IMMUNIZATIONS No Known Immunizations
--- OUTSIDE RECORDS SUMMARY | 2016-09-17 14:20 | XMS REPORT ---
Author Author Zandra Watson [facility] Address [address], [place] [address] Care Team Providers Care County Assessor Name Role Phone Zandra Watson Unavailable PROBLEMS Type Condition ICD9-CM Code [id number] Code Onset Dates Condition Status SNOMED Code Problem Generalized anxiety disorder F41.1 Active 86337232 Problem GERD (gastroesophageal reflux disease) K21.9 Active 527224597 Problem Backache M54.9 Active 697977948 Problem Mixed hyperlipidemia E78.2 Active 694210654 Problem AIDS B20 Active 56579210 Problem Dysmenorrhea N94.6 well-controlled 641215647 Problem Nicotine dependence, cigarettes, uncomplicated F17.210 well- controlled 93654996 Problem Bipolar affective disorder F31.9 Active 87887103 Problem Migraine G43.909 Active 81990186 Problem terminal manager (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 Z79.891 Active 051060080 Problem Intrinsic asthma J45.909 well-controlled 299587862 ALLERGIES Unknown Allergies SOCIAL HISTORY No smoking Hx information available PLAN OF CARE VITAL SIGNS MEDICATIONS Medication Instructions Dosage Frequency Start Date End Date Duration Status Hydrocodone-Acetaminophen 10-325 MG Orally every 6 hrs 1 tablet as needed 6h 14 Nov, 2013 Apr, 30 days Active RESULTS No Results PROCEDURES No Known procedures IMMUNIZATIONS No Known Immunizations
--- OUTSIDE RECORDS SUMMARY | 2016-09-17 14:20 | XMS REPORT ---
Author Author Zandra Watson Organization [employer] Address Unknown Phone Unavailable Care Team Providers Care Bowling Alley Attendant Name Role Phone Zandra Watson CP Unavailable [...]
--- OUTSIDE RECORDS SUMMARY | 2016-09-17 14:20 | XMS REPORT ---
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 Medications Medication Code System Code Instructions Start Date End Date Status Dosage ProAir HFA [facility] [address]-07 108 (90 Base) MCG/ACT Inhalation every 4 hrs 2 puffs as needed Xanax [facility] [address]-04 1 mg Nov 30, 2013 take 1 tablets by Oral route 2 times per day [place] [facility] [address]-89 10-325 mg Nov 23, 2013 take 1 tablet by oral route every 4 hours as needed for pain Stribild [facility] [address]-47 [phone] mg Nov 23, 2013 take 1 tablet by oral route once daily with food Zofran [facility] [address]-88 8 MG Orally every 8 hours prn 1 tablet Dronabinol [facility] [address]-13 10 MG Orally Twice a day 1 capsule before lunch and supper Procedures Procedure Coding System Code Date Office Visit, Est Pt., Level 3 CPT-4 74236 Jan 05, 2016 Vital Signs Date/Time: Jan 05, 2016 Cardiac Monitoring Heart Rate 86 bpm Weight 150 lbs Height 65 in BMI 24.96 Index Blood Pressure Diastolic 68 mmHg Blood Pressure Systolic 102 mmHg Results No Known Results Summary Purpose eClinicalWorks Submission
--- OUTSIDE RECORDS SUMMARY | 2016-09-17 14:20 | XMS REPORT ---
Author Author Zandra Watson Organization [employer] Address Unknown Phone Unavailable Care Team Providers Care Supervisor Self Service Store Name Role Phone Zandra Watson Unavailable Allergies No Known Allergies Problems Problem Type Condition Code Onset Dates Condition Status Problem Smoking F17.200 Active Problem Backache M54.9 Active Problem Generalized anxiety disorder F41.1 Active Assessment Asymptomatic HIV infection Z21 Active Problem Asymptomatic HIV infection Z21 Active Problem Intrinsic asthma J45.909 Active Problem Other chronic pain G89.29 Active Problem Migraine G43.909 Active Problem GERD (gastroesophageal reflux disease) K21.9 Active Problem Bipolar affective disorder F31.9 Active Problem Noncompliance Z91.19 Active Medications Medication Code System Code Instructions Start Date End Date Status Dosage Tramadol HCl [facility] [address]-26 50 MG Orally every 4-6 hrs Mar 29, 2015 1 tablet as needed Stribild [facility] [address]-27 [phone] MG Orally Once a day 1 tablet Results No Known Results Summary Purpose eClinicalWorks Submission
--- OUTSIDE RECORDS SUMMARY | 2016-09-17 14:21 | XMS REPORT ---
Author Author Zandra Watson [facility] eClinicalWorks Address Unknown Phone Unavailable Care Team Providers Care Meat Manager Name Role Phone Zandra Watson Unavailable Allergies No Known Allergies Problems Problem Type Condition Code Onset Dates Condition Status Problem GERD (gastroesophageal reflux disease) K21.9 Active Problem Noncompliance Z91.19 Active Problem Migraine G43.909 Active Problem Depression with anxiety F41.8 Active Problem Dermatitis L30.9 Active Problem Nausea and vomiting R11.2 Active Problem Intrinsic asthma J45.909 Active Problem Bipolar affective disorder F31.9 Active Problem snf (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 Z79.891 Active Problem Other chronic pain G89.29 Active Problem AIDS B20 Active Problem Smoking F17.200 Active Problem Generalized anxiety disorder F41.1 Active Assessment Other chronic pain G89.29 Active Problem Backache M54.9 Active Medications Medication Code System Code Instructions Start Date End Date Status Dosage Cyclobenzaprine HCl NDC 0 TAKE ONE TABLET BY MOUTH THREE TIMES A DAY Proventil HFA [facility] 77714760318 90 Inhalation every 4 hrs 2 puffs as needed Celexa [facility] [address]-37 20 MG Orally Once a day June 01, 2015 1 tablet Xanax [facility] [address]-02 1 MG Orally Twice a day October 05, 2013 Oct 15, 2015 1 tablet as needed [facility] Omeprazole [facility] [address]-27 20 MG Orally Once a day Apr 13, 2015 1 tablet Marinol [facility] [address]-72 10 MG Orally Twice a day June 18, 2015 1 capsule before lunch and supper Hydrocodone-Acetaminophen [facility] [address]-12 10-325 MG Orally every 6 hrs Nov 27, 2013 October 08, 2015 1 tablet as needed Dapsone [facility] [address]-13 100 MG Orally Once a day May 09, 2015 1 tablet Zofran [facility] [address]-91 8 MG Orally every 8 hrs Feb 13, 2015 1 tablet as needed Genvoya [facility] [address]-61 150 mg/150 mg/200/mg/10 mg Oral Once a day Apr 1 tablet Symbicort [facility] [address]-32 160-4.5 MCG/ACT Inhalation Twice a day May 01, 2014 2 puffs Results No Known Results Summary Purpose eClinicalWorks Submission
--- OUTSIDE RECORDS SUMMARY | 2016-09-17 14:21 | XMS REPORT ---
Author Author Zandra Watson [facility] Address [address] [place], [place] [id number] Care Team Providers Care Railroad Construction Director Name Role Phone Zandra Watson Unavailable PROBLEMS Type Condition ICD9-CM Code NTM96-FA Code Onset Dates Condition Status SNOMED Code Problem Bipolar affective disorder F31.9 Active 17067399 Problem long-term (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 Z79.891 Active 061651569 Problem Intrinsic asthma J45.909 Active 521657819 Problem Acquired immune deficiency syndrome B20 Active 32564848 Problem Hyperglycemia R73.9 Active 83580913 Problem Dysmenorrhea N94.6 Active 268204690 Problem Nicotine dependence, cigarettes, uncomplicated F17.210 Active 42144986 Problem Localized edema R60.0 Active 986936804 Problem Dermatitis L30.9 Active 46509749 Problem Generalized anxiety disorder F41.1 Active 05003622 Problem Backache M54.9 Active 226269810 Problem GERD (gastroesophageal reflux disease) K21.9 Active 205731007 Problem Mixed hyperlipidemia E78.2 Active 581087027 Problem Migraine G43.909 Active 69469435 ALLERGIES Unknown Allergies SOCIAL HISTORY No smoking Hx information available PLAN OF CARE VITAL SIGNS MEDICATIONS Medication Instructions Dosage Frequency Start Date End Date Duration Status Dapsone 100 MG Orally Once a day 1 tablet 24h Apr, 30 days Active Zofran 8 TAKE ONE TABLET BY MOUTH EVERY 8 HOURS FOR 10 DAYS 10 Active ProAir HFA 108 (90 Base) MCG/ACT Inhalation every 4 hrs 2 puffs as needed 4h Sep, 30 days Active Promethazine HCl 25 MG Orally three times a day 1 tablet as needed 8h Mar, 30 day(s) Active Methocarbamol 750 Orally every 8 hrs 1 tablet 8h 10 Active Marinol 10 MG Orally Twice a day 1 capsule before lunch and supper 12h Jun, 30 days Active [facility] Omeprazole 20 MG Orally Once a day 1 tablet 24h Mar, 30 day (s) Active Dicyclomine HCl 20 MG Orally three times a day 1 tablet 8h July, 30 day(s) Active Hydrochlorothiazide 25 MG Orally Once a day 1 tablet in the morning 24h July, 30 day(s) Active Azithromycin 250 MG Orally Once a day 1 tab 24h Mar, 30 days Active Zithromax Z-Riky 250 MG Orally Once a day 2 tablets on the first day, then 1 tablet daily for 4 days 24h July, July, 5 day(s) Active Methocarbamol 750 MG Orally every 8 hrs 1 tablet 8h Dec, 10 days Active Genvoya 150 mg/150 mg/200/mg/10 mg Oral Once a day 1 tablet 24h Apr, 30 days Active PredniSONE 10 MG Orally 8tabs day1,7tabs day2,6tabs day3,5tabs day4,4tabs day5 ,3tabs day6,2tabs day7,1tab day8 tablet July, Aug, 8 days Active RESULTS No Results PROCEDURES No Known procedures IMMUNIZATIONS No Known Immunizations
--- OUTSIDE RECORDS SUMMARY | 2016-09-17 14:21 | XMS REPORT ---
Author Zandra Kitchen [facility] eClinicalWorks Address Unknown Phone Unavailable Care Team Providers Care Recreation Therapist Name Role Phone Zandra Watson Unavailable Allergies [...] Active Problem Unspecified backache 724.5 Active Assessment Asthma, intrinsic 493.10 Active Problem Unspecified dental caries 521.00 Inactive Assessment Acute upper respiratory infections of other multiple sites 465.8 Active Problem Bipolar disorder, unspecified 296.80 Active Problem Esophageal reflux 530.81 Active Problem Symptomatic menopausal or female climacteric states 627.2 Inactive Problem Need for prophylactic vaccination and inoculation, Influenza V04.81 Inactive Problem Dyspepsia and other specified disorders of function of stomach 536.8 Active Problem correction (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 V58.69 Inactive [...] Start Date End Date Status Dosage Symbicort [facility] [address]-13 160-4.5 MCG/ACT Inhalation Twice a day May 01, 2014 2 puffs Augmentin [facility] [address]-76 875-125 MG Orally Twice a day May 01, 2014 1 tablet Results No Known Results Summary Purpose eClinicalWorks Submission
--- OUTSIDE RECORDS SUMMARY | 2016-09-17 14:21 | XMS REPORT ---
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
--- OUTSIDE RECORDS SUMMARY | 2016-09-17 14:21 | XMS REPORT ---
Author Author Vineet Mcfarlane Organization [employer] Address Unknown Phone Unavailable Care Team Providers Care Senior Android Software Engineer Name Role Phone Vineet Mcfarlane CP Unavailable Allergies No Known Allergies Problems [...] Start Date End Date Status Dosage Hydrocodone-Acetaminophen [facility] [address]-44 10-325 MG Orally every 4-6 hrs Nov 27, 2013 October 04, 2014 1 tablet as needed Results No Known Results Summary Purpose eClinicalWorks Submission
--- OUTSIDE RECORDS SUMMARY | 2016-09-17 14:21 | XMS REPORT ---
Author Author Zandra Watson [facility] eClinicalWorks Address Unknown Phone Unavailable Care Team Providers Care Engineer/Conductor Name Role Phone Zandra Watson Unavailable Allergies [...] J45.909 Active Problem Dermatitis L30.9 Active Problem group home (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 Z79.891 Active Assessment Nausea and vomiting R11.2 Active Problem Chronic pain G89.29 Active Problem Smoking F17.200 Active Problem Generalized anxiety disorder F41.1 Active Problem Mixed hyperlipidemia E78.2 Active Problem Backache M54.9 Active Problem AIDS B20 Active Problem GERD (gastroesophageal reflux disease) K21.9 Active Medications Medication Code System Code Instructions Start Date End Date Status Dosage Marinol [facility] [address]-32 10 MG Orally Twice a day June 18, 2015 1 capsule before lunch and supper Results No Known Results Summary Purpose eClinicalWorks Submission
--- OUTSIDE RECORDS SUMMARY | 2016-09-17 14:21 | XMS REPORT ---
Author Author Zandra Watson Organization [employer] Address Unknown Phone Unavailable Care Team Providers Care Door Frame Assembler Machine Name Role Phone Zandra Watson Unavailable Allergies [...] Start Date End Date Status Dosage Xanax [facility] [address]-72 1 MG Orally Twice a day October 05, 2013 Dec 25, 2014 1 tablet Results No Known Results Summary Purpose eClinicalWorks Submission
--- OUTSIDE RECORDS SUMMARY | 2016-09-17 14:21 | XMS REPORT ---
Author Author Zandra Watson Organization [employer] Address Unknown Phone Unavailable Care Team Providers Care Public Safety Officer Name Role Phone Zandra Watson CP Unavailable [...]
--- OUTSIDE RECORDS SUMMARY | 2016-09-17 14:21 | XMS REPORT ---
Author Author Zandra Watson Organization [employer] Address Unknown Phone Unavailable Care Team Providers Care Personal Consultant Name Role Phone Zandra Watson CP Unavailable [...]
--- OUTSIDE RECORDS SUMMARY | 2016-09-17 14:21 | XMS REPORT ---
Author Author Harper Snell [facility] eClinicalWorks Address Unknown Phone Unavailable Care Team Providers Care Stick Welder Name Role Phone Harper Snell CP Unavailable Allergies No Known Allergies Problems Problem Type Condition Code Onset Dates Condition Status Problem Migraine G43.909 Active Problem Bipolar affective disorder F31.9 Active Problem Noncompliance Z91.19 Active Problem Nausea and vomiting R11.2 Active Assessment Mixed hyperlipidemia E78.2 Active Problem Depression with anxiety F41.8 Active Assessment Chronic pain G89.29 Active Assessment Edema R60.9 Active Problem Edema R60.9 Active Problem Other chronic pain G89.29 Active Problem Intrinsic asthma J45.909 Active Problem Dermatitis L30.9 Active Problem [facility] (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 Z79.891 Active Assessment AIDS B20 Active Problem Chronic pain G89.29 Active Assessment Smoking F17.200 Active Assessment [facility] (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 Z79.891 Active Problem Smoking F17.200 Active Problem Generalized anxiety disorder F41.1 Active Problem Mixed hyperlipidemia E78.2 Active Problem Backache M54.9 Active Problem AIDS B20 Active Problem GERD (gastroesophageal reflux disease) K21.9 Active Medications Medication Code System Code Instructions Start Date End Date Status Dosage Dapsone [facility] [address]-59 100 MG Orally Once a day May 09, 2015 1 tablet Genvoya [facility] [address]-00 150 mg/150 mg/200/mg/10 mg Oral Once a day Apr 1 tablet Tramadol HCl [facility] [address]-06 50 MG Orally every 6 hrs October 08, 2015 1 tablet as needed Cyclobenzaprine HCl [facility] 0 TAKE ONE TABLET BY MOUTH THREE TIMES A DAY Celexa [facility] [address]-99 20 MG Orally Once a day June 01, 2015 1 tablet Marinol [facility] [address]-99 10 MG Orally Twice a day June 18, 2015 1 capsule before lunch and supper [facility] Omeprazole [facility] [address]-00 20 MG Orally Once a day Apr 13, 2015 1 tablet Hydrocodone-Acetaminophen [facility] [address]-10 10-325 MG Orally every 6 hrs Nov 27, 2013 October 08, 2015 1 tablet as needed Xanax [facility] [address]-21 1 MG Orally Twice a day October 05, 2013 Oct 15, 2015 1 tablet as needed Symbicort [facility] [address]-88 160-4.5 MCG/ACT Inhalation Twice a day May 01, 2014 2 puffs Zofran [facility] [address]-39 8 MG Orally every 8 hrs Feb 13, 2015 1 tablet as needed Proventil HFA [facility] 13505819777 90 Inhalation every 4 hrs 2 puffs as needed Procedures Procedure Coding System Code Date T CELL, ABSOLUTE COUNT/RATIO CPT-4 81777 September 21, 2015 COMPREHEN METABOLIC PANEL CPT-4 33696 September 21, 2015 HIV-1, DNA, QUANT CPT-4 79256 September 21, 2015 Office Visit, Est Pt., Level 3 CPT-4 36089 September 21, 2015 URINALYSIS, AUTO, W/O SCOPE IH CPT-4 25774 September 21, 2015 Vital Signs Date/Time: September 21, 2015 Temperature 98.9 F Weight 151 lbs Height 65 in Respiratory Rate 18 /min Cardiac Monitoring Heart Rate 84 /min Blood Pressure Diastolic 84 mm Hg Blood Pressure Systolic 124 mm Hg BMI 25.12 Index Results Name Result Date Reference Range Unit Abnormality Flag CD4/CD8 Ratio Profile 99552 ----Monocytes(Absolute) 0.4 [id number] 0.1-0.9 x10E3/uL ----Eos (Absolute) 0.1 20150921 0.0-0.4 x10E3/uL ----Baso (Absolute) 0.1 99638336 0.0-0.2 x10E3/uL ----Immature Granulocytes 0 20150921 % ----Immature Grans (Abs) 0.0 92263164 0.0-0.1 x10E3/uL ----NRBC DOGGER 20150921 ----Hematology Comments: DOGGER [id number] ----Immature Cells DOGGER 20150921 ----Neutrophils (Absolute) 2.9 59649926 1.4-7.0 x10E3/uL ----Lymphs (Absolute) 1.3 16678292 0.7-3.1 x10E3/uL ----MCH 31.3 37567414 26.6-33.0 pg ----MCV 100 02296394 79-97 fL H ----Abs. CD 8 Suppressor 798 39792867 109-897 /uL ----Basos 1 24541944 % ----% CD 8 Pos. Lymph. 61.4 06529308 12.0-35.5 % H ----Eos 3 15917065 % ----CD4/CD8 Ratio 0.13 86134414 0.92-3.72 L ----Monocytes 9 79782830 % ----WBC 4.8 12316998 3.4-10.8 x10E3/uL ----Lymphs 26 61869588 % ----RBC 3.77 40375713 3.77-5.28 x10E6/uL ----Neutrophils 61 55369339 % ----Hemoglobin 11.8 00466001 11.1-15.9 g/dL ----Platelets 193 53322799 150-379 x10E3/uL ----RDW 14.1 43673122 12.3-15.4 % ----Hematocrit 37.8 83798852 34.0-46.6 % ----Absolute CD 4 [place] 104 43095887 359-1519 /uL L ----MCHC 31.2 15596139 31.5-35.7 g/dL L ----% CD 4 Pos. Lymph. 8.0 61047776 30.8-58.5 % L Human Immunodeficiency Virus (HIV-1), Quantitative, Real-time PCR (graph) 02743 ----HIV-1 RNA by PCR <20 66039882 copies/mL ----log10 HIV-1 RNA TNP 65897918 jbq32yhtx/mL Metabolic Panel (14), Comprehensive (CMP) 41202 ----Sodium, Serum 144 05856415 134-144 mmol/L ----BUN/Creatinine Ratio 15 40338237 9-23 ----Chloride, Serum 107 08707473 97-108 mmol/L ----Potassium, Serum 4.9 19757531 3.5-5.2 mmol/L ----Calcium, Serum 9.6 82136402 8.7-10.2 mg/dL ----Protein, Total, Serum 6.4 72245072 6.0-8.5 g/dL ----Carbon Dioxide, Total 21 50078360 18-29 mmol/L ----A/G Ratio 2.2 09415642 1.1-2.5 ----eGFR If NonAfricn Am 77 24124291 >59 mL/min/1.73 ----Bilirubin, Total 0.3 00392851 0.0-1.2 mg/dL ----eGFR If Africn Am 89 98867116 >59 mL/min/1.73 ----BUN 14 52757181 6-24 mg/dL ----Albumin, Serum 4.4 71879300 3.5-5.5 g/dL ----Globulin, Total 2.0 44982785 1.5-4.5 g/dL ----Creatinine, Serum 0.93 20150921 0.57-1.00 mg/dL ----ALT (SGPT) 13 20150921 0-32 IU/L ----Glucose, Serum 102 75352194 65-99 mg/dL H ----Alkaline Phosphatase, S 55 20150921 39-117 IU/L ----AST (SGOT) 13 20150921 0-40 IU/L Summary Purpose eClinicalWorks Submission
--- OUTSIDE RECORDS SUMMARY | 2016-09-17 14:21 | XMS REPORT ---
Author Author Zandra Watson Organization eClinicalWorks Address Unknown Phone Unavailable Care Team Providers Care Production Machine Operator Name Role Phone Zandra Watson CP [...]
--- OUTSIDE RECORDS SUMMARY | 2016-09-17 14:22 | XMS REPORT ---
Author Author Zandra Watson Organization eClinicalWorks Address Unknown Phone Unavailable Care Team Providers Care Cartoon Animator Name Role Phone Zandra Watson CP Unavailable [...] J45.909 Active Problem Dermatitis L30.9 Active Problem half-way (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 Z79.891 Active Assessment Other chronic pain G89.29 Active Problem Chronic pain G89.29 Active Problem Smoking F17.200 Active Problem Generalized anxiety disorder F41.1 Active Problem Mixed hyperlipidemia E78.2 Active Problem Backache M54.9 Active Problem AIDS B20 Active Problem GERD (gastroesophageal reflux disease) K21.9 Active Medications Medication Code System Code Instructions Start Date End Date Status Dosage Hydrocodone-Acetaminophen [facility] [address]-86 10-325 MG Orally every 6 hrs Nov 27, 2013 Dec 07, 2015 1 tablet as needed Results No Known Results Summary Purpose eClinicalWorks Submission
--- OUTSIDE RECORDS SUMMARY | 2016-09-17 14:22 | XMS REPORT ---
Author Author Zandra Watson [facility] eClinicalWorks Address Unknown Phone Unavailable Care Team Providers Care Cake Stripper Name Role Phone Zandra Watson CP Unavailable [...] of stomach 536.8 Active Problem termite control technician (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 V58.69 Inactive [...] streptococcus pneumoniae ( pneumococcus) V03.82 Inactive Medications No Known Medications Results No Known Results Summary Purpose eClinicalWorks Submission
--- OUTSIDE RECORDS SUMMARY | 2016-09-17 14:22 | XMS REPORT | Referral Summary ---
Author Author [facility] Organization [facility] Address Unknown Phone Unavailable Care Team Providers Care Crossbar Frame Wirer Name Role Phone No PCP, Pt States PCP Encounter VC Date(s): 03/20/15 - 03/20/15 [facility] [address] [place] [address] [phone] Discharge Disposition: 01-Home or Self Care Attending Physician: Harper Snell MD Admitting Physician: Harper Snell MD Vital Signs Most recent to 1 oldest [Reference Range]: Temperature Temporal 36.9 degC Artery [36.3-37.8 (03/20/15 12:00 PM) degC] Apical Heart Rate 116 bpm [60-100 bpm] *HI* (03/20/15 1:45 AM) Heart Rate Monitored 104 bpm [60-100 bpm] *HI* (03/20/15 10:15 AM) Respiratory Rate 30 br/min 1 [14-20 br/min] *HI* (03/20/15 10:15 AM) Blood Pressure 106/73 mmHg [90-140/60-90 mmHg] (03/20/15 9:15 AM) Mean Arterial 81 mmHg Pressure, Cuff (03/20/15 9:15 AM) SpO2 94 % (03/20/15 1:55 PM) 1Result Comment: Pt refusing to have VS taken. Dr. Lehman notified. Problem List Condition Effective Dates Status Health Status Informant Abdominal Resolved pain(Confirmed) Acute Resolved pain(Confirmed) Altered mental Resolved status(Confirmed) At risk for Resolved infection(Confirmed) 1 HIV Active patient positive(Confirmed) Smoker(Confirmed) Active patient 1Problem added automatically by system based on initiation of At Risk for Infection in Nutrition Plan of Care Allergies, Adverse Reactions, Alerts Substance Reaction Severity Status aspirin Active oxyCODONE Active Medications albuterol 5 mg/mL (0.5%) inhalation solution 2.5 mg 0.5 mL, NEB, q2hr (scheduled), Other (See Comment), 0 Refill(s) Start Date: 03/20/15 Status: Ordered Bactrim DS 800 mg-160 mg oral tablet 1 tabs, Oral, q24hr, X 30 days, # 30 tabs, 0 Refill(s), Pharmacy: [facility] #[id number] Start Date: 03/20/15 Stop Date: 04/19/15 Status: Ordered cyclobenzaprine 10 mg, Oral, TID, as needed for muscle spasm, 0 Refill(s) Start Date: 03/20/15 Status: Ordered Diflucan 100 mg, Oral, Daily, Patient is on this medication indefinitely, 0 Refill(s) Start Date: 03/20/15 Status: Ordered HYDROcodone-acetaminophen 5 mg-325 mg oral tablet 1 tabs, Oral, q4hr, Pain Moderate (4-6), # 30 tabs, 0 Refill(s) Start Date: 03/20/15 Stop Date: 03/28/15 Status: Ordered Marinol 10 mg oral capsule 10 mg 1 caps, Oral, BID, 0 Refill(s) Start Date: 03/20/15 Status: Ordered Proventil HFA 90 mcg/inh inhalation aerosol 2 puffs, Inhalation, q4hr, as needed for wheezing, 0 Refill(s) Start Date: 03/20/15 Status: Ordered Results Blood Gases Most recent to 1 oldest [Reference Range]: pH [7.35-7.45] 7.43 (03/20/15 2:39 AM) pCO2 Art [35-45 32 mmHg mmHg] *LOW* (03/20/15 2:39 AM) Bicarbonate [22-26 21 mEq/L mEq/L] *LOW* (03/20/15 2:39 AM) Base Excess Art -3 [0-2] *LOW* (03/20/15 2:39 AM) O2 Sat Art 94.0 % [90.0-97.0 %] (03/20/15 2:39 AM) pO2 Art [80-100 69 mmHg mmHg] *LOW* (03/20/15 2:39 AM) O2 Panel Room Air (03/20/15 2:39 AM) Spec Site Radial-R (03/20/15 2:39 AM) Hematology Most recent to 1 oldest [Reference Range]: WBC [4.8-10.8 3.2 10*3/uL 10*3/uL] *LOW* (03/20/15 2:41 AM) RBC [4.00-5.20] 3.84 *LOW* (03/20/15 2:41 AM) Hgb [12.0-16.0 11.0 gm/dL gm/dL] *LOW* (03/20/15 2:41 AM) Hct [37.0-47.0 %] 33.1 % *LOW* (03/20/15 2:41 AM) MCV [82.0-99.0 fL] 86.2 fL (03/20/15 2:41 AM) MCH [27.0-32.0 pg] 28.6 pg (03/20/15 2:41 AM) MCHC [32.0-36.0 33.2 gm/dL gm/dL] (03/20/15 2:41 AM) RDW [11.5-14.5 %] 16.3 % *HI* (03/20/15 2:41 AM) Platelet [150-400 185 10*3/uL 10*3/uL] (03/20/15 2:41 AM) MPV [9.4-12.4 fL] 11.4 fL (03/20/15 2:41 AM) Immature 0.0 % Granulocytes (03/20/15 2:41 AM) [0.0-1.0 %] Neutrophils [51-75 62 % %] (03/20/15 2:41 AM) Lymphocytes [20-46 18 % %] *LOW* (03/20/15 2:41 AM) Monocytes [4-11 %] 18 % *HI* (03/20/15 2:41 AM) Eosinophils [0-4 %] 2 % (03/20/15 2:41 AM) Basophils [0-2 %] 0 % (03/20/15 2:41 AM) Neutro Absolute 1.97 10*3 [1.90-7.00 10*3] (03/20/15 2:41 AM) Lymph Absolute 0.58 10*3 [0.80-3.30 10*3] *LOW* (03/20/15 2:41 AM) [place] Absolute 0.57 10*3 [0.30-1.00 10*3] (03/20/15 2:41 AM) Eos Absolute 0.05 10*3 [0.00-0.50 10*3] (03/20/15 2:41 AM) Baso Absolute 0.00 10*3 [0.00-0.20 10*3] (03/20/15 2:41 AM) Nucleated RBC 0.0 /100 WBC Automated [0 /100 (03/20/15 2:41 AM) WBC] Coagulation Most recent to 1 oldest [Reference Range]: INR [0.9-1.2] 1.1 (03/20/15 2:41 AM) Chemistry Most recent to 1 oldest [Reference Range]: Sodium Lvl [136-144 140 mEq/L mEq/L] (03/20/15 2:41 AM) Potassium Lvl 3.5 mEq/L [3.6-5.1 mEq/L] *LOW* (03/20/15 2:41 AM) Chloride [99-109 107 mEq/L mEq/L] (03/20/15 2:41 AM) CO2 [22-32 mEq/L] 22 mEq/L (03/20/15 2:41 AM) AGAP [3-20] 11 (03/20/15 2:41 AM) BUN [4-20 mg/dL] 14 mg/dL (03/20/15 2:41 AM) Glucose Lvl [70-100 85 mg/dL mg/dL] (03/20/15 2:41 AM) Creatinine Lvl 0.89 mg/dL [0.44-1.03 mg/dL] (03/20/15 2:41 AM) eGFR [>60] >60 1 (03/20/15 2:41 AM) Calcium Lvl 9.5 mg/dL [8.6-10.0 mg/dL] (03/20/15 2:41 AM) Albumin Lvl [3.5-4.8 4.2 gm/dL gm/dL] (03/20/15 2:41 AM) Total Protein 7.4 gm/dL [6.1-7.9 gm/dL] (03/20/15 2:41 AM) Globulin [1.9-4.3 3.2 gm/dL gm/dL] (03/20/15 2:41 AM) ALT [14-54 U/L] 23 U/L (03/20/15 2:41 AM) AST [15-41 U/L] 32 U/L (03/20/15 2:41 AM) Alk Phos [26-104 90 U/L U/L] (03/20/15 2:41 AM) Bili Total [0.2-1.2 0.6 mg/dL 2 mg/dL] (03/20/15 2:41 AM) Magnesium Lvl 2.0 mg/dL [1.8-2.5 mg/dL] (03/20/15 2:41 AM) Phosphorus [2.4-4.7 4.1 mg/dL 3 mg/dL] (03/20/15 2:41 AM) Lipase Lvl [8-48 21 U/L U/L] (03/20/15 2:41 AM) Lactic Acid Lvl 0.6 mEq/L [0.5-2.2 mEq/L] (03/20/15 2:41 AM) Prealbumin [18-38 21 mg/dL mg/dL] (03/20/15 2:41 AM) Hep A IgM Negative (03/20/15 6:27 AM) Hep Bs Ag Negative (03/20/15 6:27 AM) Hep C Ab Negative (03/20/15 6:27 AM) Hep B Core IgM Negative (03/20/15 6:27 AM) TSH with Reflex Free 0.63 T4 [0.35-5.50] (03/20/15 2:41 AM) 1Result Comment: Multiply eGFR results by 1.21 for race. 2Result Comment: Naproxen, specifically the metabolite O-desmethylnaproxen, may cause spurious elevation in Total Bilirubin levels. 3Result Comment: High dosages of liposomal Amphotericin B (AmBisome) therapy or other drug preparations that use a liposomal envelope to facilitate drug delivery may cause falsely elevated results for phosphorus. Toxicology Most recent to 1 oldest [Reference Range]: Ethanol Lvl Not Detected (03/20/15 2:41 AM) Microbiology Reports TEST: Blood Culture STATUS: Order in Progress BODY SITE: SOURCE: Blood COLLECTED DATE/TIME: 03/20/15 2:51 AM Blood Culture No growth after 12 hours incubation. Nursing unit will be called if growth is detected. - A blood culture drawn through a catheter with a differential time to positivity at least 2 hours sooner than one drawn from a peripheral vein at the same time suggests a catheter-related bloodstream infection. TEST: Blood Culture STATUS: Order in Progress BODY SITE: SOURCE: Blood COLLECTED DATE/TIME: 03/20/15 2:41 AM Blood Culture No growth after 12 hours incubation. Nursing unit will be called if growth is detected. - A blood culture drawn through a catheter with a differential time to positivity at least 2 hours sooner than one drawn from a peripheral vein at the same time suggests a catheter-related bloodstream infection. Immunizations No data available for this section Procedures Procedure Date Related Diagnosis Body Site Arterial puncture, withdrawal of blood for 03/20/15 diagnosis Cholecystectomy Tubal ligation Social History No data available for this section Assessment and Plan No data available for this section
--- OUTSIDE RECORDS SUMMARY | 2016-09-17 14:22 | XMS REPORT ---
Author Author Zandra Watson Organization [employer] Address Unknown Phone Unavailable Care Team Providers Care Skip Hoist Operator Name Role Phone Zandra Watson CP [...]
--- OUTSIDE RECORDS SUMMARY | 2016-09-17 14:22 | XMS REPORT ---
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
--- OUTSIDE RECORDS SUMMARY | 2016-09-17 14:22 | XMS REPORT ---
Author Author Zandra Watson [facility] Address [address], [place] [id number] Care Team Providers Care Nurse Midwife/Clinical Instructor Name Role Phone Zandra Watson Unavailable PROBLEMS Type Condition ICD9-CM Code [id number] Code Onset Dates Condition Status SNOMED Code Problem Backache M54.9 Active 857207268 Problem Migraine G43.909 Active 54570241 Problem GERD (gastroesophageal reflux disease) K21.9 Active 051303966 Assessment Cough R05 Apr, Active 76931090 Problem Mixed hyperlipidemia E78.2 Active 105021941 Problem AIDS B20 Active 60699329 Problem Generalized anxiety disorder F41.1 Active 25749084 Problem Dermatitis L30.9 Active 03232436 Problem Dysmenorrhea N94.6 well-controlled 933003543 Problem Intrinsic asthma J45.909 well-controlled 686925926 Problem Bipolar affective disorder F31.9 Active 15263279 Problem Nicotine dependence, cigarettes, uncomplicated F17.210 well- controlled 18225274 Problem terminal operator (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 Z79.891 Active 992094679 ALLERGIES Unknown Allergies SOCIAL HISTORY No smoking Hx information available PLAN OF CARE VITAL SIGNS MEDICATIONS Medication Instructions Dosage Frequency Start Date End Date Duration Status ProAir HFA 108 (90 Base) MCG/ACT Inhalation every 4 hrs 2 puffs as needed 4h Sep, 30 days Active Methocarbamol 750 MG Orally every 8 hrs 1 tablet 8h 18 Dec, 2015 10 days Active Marinol 10 MG Orally Twice a day 1 capsule before lunch and supper 12h Jun, 30 days Active Hydrocodone-Acetaminophen 10-325 MG Orally every 6 hrs 1 tablet as needed 6h 14 Nov, 2013 May, 30 days Active Tramadol HCl 50 MG Orally every 6 hrs 1 tablet as needed 6h Sep, 30 days Active [facility] Omeprazole 20 MG Orally Once a day 1 tablet 24h Mar, 30 day (s) Active Amoxicillin-Pot Clavulanate 875-125 MG Orally every 12 hrs 1 tablet 12h Apr, Apr, 7 days Active Promethazine HCl 25 MG Orally three times a day 1 tablet as needed 8h Mar, 30 day(s) Active Genvoya 150 mg/150 mg/200/mg/10 mg Oral Once a day 1 tablet 24h 07 Apr, 2015 30 days Active Dapsone 100 MG Orally Once a day 1 tablet 24h Apr, 30 days Active Azithromycin 250 MG Orally Once a day 1 tab 24h Mar, 30 days Active RESULTS No Results PROCEDURES No Known procedures IMMUNIZATIONS No Known Immunizations
--- OUTSIDE RECORDS SUMMARY | 2016-09-17 14:22 | XMS REPORT ---
Author Author Zandra Watson [facility] Address [address], [place] [address] Care Team Providers Care Utility Manager Name Role Phone Zandra Watson Unavailable PROBLEMS Type Condition ICD9-CM Code [id number] Code Onset Dates Condition Status SNOMED Code Problem Bipolar affective disorder F31.9 Active 57793254 Problem snf (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 Z79.891 Active 153015883 Problem Intrinsic asthma J45.909 Active 104827869 Problem Acquired immune deficiency syndrome B20 Active 69976759 Problem Hyperglycemia R73.9 Active 34722859 Problem Dysmenorrhea N94.6 Active 395602391 Problem Nicotine dependence, cigarettes, uncomplicated F17.210 Active 11053765 Problem Localized edema R60.0 Active 554379237 Problem Dermatitis L30.9 Active 32761470 Problem Generalized anxiety disorder F41.1 Active 64238712 Problem Backache M54.9 Active 242401271 Problem GERD (gastroesophageal reflux disease) K21.9 Active 458471168 Problem Mixed hyperlipidemia E78.2 Active 680559736 Problem Migraine G43.909 Active 52999426 ALLERGIES Unknown Allergies SOCIAL HISTORY No smoking Hx information available PLAN OF CARE VITAL SIGNS MEDICATIONS Medication Instructions Dosage Frequency Start Date End Date Duration Status Dapsone 100 MG Orally Once a day 1 tablet 24h Apr, 30 days Active Clonidine HCl 0.1 MG Orally every 4 hrs 1 tablet as needed do not take is BP is <100/60 4h Aug, Active Genvoya 150 mg/150 mg/200/mg/10 mg Oral Once a day 1 tablet 24h Apr, 30 days Active Promethazine HCl 25 MG Orally three times a day 1 tablet as needed 8h 20 Mar, 2016 30 day(s) Active Zofran 8 TAKE ONE TABLET BY MOUTH EVERY 8 HOURS FOR 10 DAYS 10 Active Methocarbamol 750 Orally every 8 hrs 1 tablet 8h 10 Active ProAir HFA 108 (90 Base) MCG/ACT Inhalation every 4 hrs 2 puffs as needed 4h 25 Sep, 2015 30 days Active Methocarbamol 750 MG Orally every 8 hrs 1 tablet 8h 18 Dec, 2015 10 days Active Marinol 10 MG Orally Twice a day 1 capsule before lunch and supper 12h Jun, 30 days Active Dicyclomine HCl 20 MG Orally three times a day 1 tablet 8h July, 30 day(s) Active [facility] Omeprazole 20 MG Orally Once a day 1 tablet 24h Mar, 30 day (s) Active Azithromycin 250 MG Orally Once a day 1 tab 24h Mar, 30 days Active Hydrochlorothiazide 25 MG Orally Once a day 1 tablet in the morning 24h July, 30 day(s) Active RESULTS No Results PROCEDURES No Known procedures IMMUNIZATIONS No Known Immunizations
--- OUTSIDE RECORDS SUMMARY | 2016-09-17 14:22 | XMS REPORT ---
Author Author Zandra Watson Organization [employer] Address Unknown Phone Unavailable Care Team Providers Care V Belt Finisher Name Role Phone Zandra Watson CP [...]
--- OUTSIDE RECORDS SUMMARY | 2016-09-17 14:23 | XMS REPORT ---
Author Author Zandra Watson Organization [employer] Address Unknown Phone Unavailable Care Team Providers Care Chronometer Repairer Name Role Phone Zandra Watson CP Unavailable [...]
--- OUTSIDE RECORDS SUMMARY | 2016-09-17 14:23 | XMS REPORT ---
Author Author Zandra Watson [facility] [employer] Address Unknown Phone Unavailable Care Team Providers Care Hand Bindery Assembly Worker Name Role Phone Zandra Watson Unavailable Allergies [...] J45.909 Active Problem Dermatitis L30.9 Active Problem senior living (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 Z79.891 Active Assessment Other chronic pain G89.29 Active Problem Chronic pain G89.29 Active Problem Smoking F17.200 Active Problem Generalized anxiety disorder F41.1 Active Problem Mixed hyperlipidemia E78.2 Active Problem Backache M54.9 Active Problem AIDS B20 Active Problem GERD (gastroesophageal reflux disease) K21.9 Active Medications Medication Code System Code Instructions Start Date End Date Status Dosage Dapsone [facility] [address]-37 100 MG Orally Once a day May 09, 2015 1 tablet [address]anax [facility] [address]-65 1 MG Orally Twice a day October 05, 2013 Feb 26, 2016 1 tablet as needed ProAir HFA [facility] [address]-89 108 (90 Base) MCG/ACT Inhalation every 4 hrs October 08, 2015 2 puffs as needed Hydrocodone-Acetaminophen [facility] [address]-83 10-325 MG Orally every 6 hrs Nov 27, 2013 Jan 06, 2016 1 tablet as needed Genvoya [facility] [address]-49 150 mg/150 mg/200/mg/10 mg Oral Once a day Apr 1 tablet Marinol [facility] [address]-90 10 MG Orally Twice a day June 18, 2015 1 capsule before lunch and supper Tramadol HCl [facility] [address]-63 50 MG Orally every 6 hrs October 08, 2015 Jan 19, 2016 1 tablet as needed Symbicort [facility] [address]-31 160-4.5 MCG/ACT Inhalation Twice a day May 01, 2014 2 puffs Cyclobenzaprine HCl [facility] 0 TAKE ONE TABLET BY MOUTH THREE TIMES A DAY Proventil HFA [facility] [id number] 90 INHALE TWO PUFFS BY MOUTH EVERY 4 [address]an [facility] [address]-30 8 MG Orally every 8 hrs Oct 31, 2015 1 tablet as needed Celexa [facility] [address]-44 20 MG Orally Once a day June 01, 2015 1 tablet [facility] Omeprazole [facility] [address]-65 20 MG Orally Once a day Apr 13, 2015 1 tablet Results No Known Results Summary Purpose [employer] Submission
--- OUTSIDE RECORDS SUMMARY | 2016-09-17 14:23 | XMS REPORT ---
Author Author Zandra Watson [facility] Address [address], [place] [address] Care Team Providers Care Network Account Manager Name Role Phone Zandra Watson Unavailable PROBLEMS Type Condition ICD9-CM Code [id number] Code Onset Dates Condition Status SNOMED Code Problem Bipolar affective disorder F31.9 Active 59600635 Problem USP (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 Z79.891 Active 970133870 Problem Intrinsic asthma J45.909 well-controlled 134532486 Problem Acquired immune deficiency syndrome B20 Active 57667414 Problem Hyperglycemia R73.9 Active 45038586 Problem Dysmenorrhea N94.6 well-controlled 147172647 Problem Nicotine dependence, cigarettes, uncomplicated F17.210 well- controlled 17902293 Problem Localized edema R60.0 Active 343924284 Problem Dermatitis L30.9 Active 56284726 Problem Generalized anxiety disorder F41.1 Active 39950166 Problem Backache M54.9 Active 848369693 Assessment Backache M54.9 July, Active 177377198 Problem GERD (gastroesophageal reflux disease) K21.9 Active 684911653 Problem Mixed hyperlipidemia E78.2 Active 469114067 Problem Migraine G43.909 Active 20153539 ALLERGIES Unknown Allergies SOCIAL HISTORY No smoking Hx information available PLAN OF CARE VITAL SIGNS MEDICATIONS Medication Instructions Dosage Frequency Start Date End Date Duration Status Genvoya 150 mg/150 mg/200/mg/10 mg Oral Once a day 1 tablet 24h Apr, 30 days Active [facility] Omeprazole 20 MG Orally Once a day 1 tablet 24h Mar, 30 day (s) Active Marinol 10 MG Orally Twice a day 1 capsule before lunch and supper 12h Jun, 30 days Active Hydrochlorothiazide 25 MG Orally Once a day 1 tablet in the morning 24h July, 30 day(s) Active Methocarbamol 750 Orally every 8 hrs 1 tablet 8h 10 Active Dicyclomine HCl 20 MG Orally three times a day 1 tablet 8h July, 30 day(s) Active ProAir HFA 108 (90 Base) MCG/ACT Inhalation every 4 hrs 2 puffs as needed 4h Sep, 30 days Active Promethazine HCl 25 MG Orally three times a day 1 tablet as needed 8h Mar, 30 day(s) Active Dapsone 100 MG Orally Once a day 1 tablet 24h Apr, 30 days Active Methocarbamol 750 MG Orally every 8 hrs 1 tablet 8h Dec, 10 days Active Zofran 8 TAKE ONE TABLET BY MOUTH EVERY 8 HOURS FOR 10 DAYS 10 Active Azithromycin 250 MG Orally Once a day 1 tab 24h Mar, 30 days Active RESULTS No Results PROCEDURES No Known procedures IMMUNIZATIONS No Known Immunizations
--- OUTSIDE RECORDS SUMMARY | 2016-09-17 14:23 | XMS REPORT ---
Author Author Zandra Watson Organization [employer] Address Unknown Phone Unavailable Care Team Providers Care Manager Fund Name Role Phone Zandra Watson CP Unavailable [...] Active Problem Unspecified backache 724.5 Active Medications No Known Medications Results No Known Results Summary Purpose [employer] Submission
--- OUTSIDE RECORDS SUMMARY | 2016-09-17 14:23 | XMS REPORT ---
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 V58.69 Inactive [...] Date End Date Status Dosage Zithromax Z-Riky [facility] [address]-48 250 MG Orally Once a day Mar 29, 2014 2 tablets on the first day, then 1 tablet daily for 4 days PredniSONE [facility] [address]-29 10 MG Orally Once a day June 20, 2014 8 tab/day1 7tab/day2 6tab/day3 5tab/day4 4tab/day5 3tab/day6 2tab/day7 1tab/day8 PredniSONE [facility] [address]-60 10 MG Orally Once a day Mar 29, 2014 taper - 8,7,6,5,4,3,2,1 Proventil HFA [facility] [address]-17 108 (90 Base) MCG/ACT Inhalation every 4 hrs July 15, 2012 2 puffs as needed Cyclobenzaprine HCl [facility] [address]-46 10 MG Orally Three times a day 1 tablet Azithromycin [facility] [address]-11 250 MG Orally Once a day June 28, 2014 2 tablets on the first day, then 1 tablet daily for 4 days PredniSONE [facility] [address]-51 10 MG Orally day1:8tab day2:7tab day3:6tab day4 :5tab day5:4tab day6:3tab day7:2tab day8:1tab June 28, 2014 as directed Escitalopram Oxalate [facility] [address]-72 20 MG Orally Once a day 2014 1 tablet Xanax [facility] [address]-77 1 MG Orally Twice a day October 05, 2013 July 18, 2014 1 tablet Augmentin [facility] [address]-78 875-125 MG Orally Twice a day May 01, 2014 1 tablet Hydrocodone-Acetaminophen [facility] [address]-03 10-325 MG Orally every 4-6 hrs Nov 27, 2013 August 05, 2014 1 tablet as needed Stribild [facility] [address]-77 491-214-255-300 MG Oral 1 (one) Tablet daily June 18, 2013 not defined Tramadol HCl [facility] [address]-08 50 MG Orally three times a day June 09, 2014 July 18, 2014 1 tablet as needed Symbicort [facility] [address]-78 160-4.5 MCG/ACT Inhalation Twice a day May 01, 2014 2 puffs Results No Known Results Summary Purpose [employer] Submission
--- OUTSIDE RECORDS SUMMARY | 2016-09-17 14:23 | XMS REPORT ---
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
--- OUTSIDE RECORDS SUMMARY | 2016-09-17 14:24 | XMS REPORT ---
Author Author Zandra Watson Organization [employer] Address Unknown Phone Unavailable Care Team Providers Care Manager Apple Name Role Phone Zandra Watson CP Unavailable Allergies No Known Allergies Problems Problem Type Condition Code Onset Dates Condition Status Problem GERD (gastroesophageal reflux disease) K21.9 Active Problem Noncompliance Z91.19 Active Problem Migraine G43.909 Active Problem Depression with anxiety F41.8 Active Problem Dermatitis L30.9 Active Problem Nausea and vomiting R11.2 Active Problem Intrinsic asthma J45.909 Active Problem Bipolar affective disorder F31.9 Active Problem senior care (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 Z79.891 Active Problem Other chronic pain G89.29 Active Problem AIDS B20 Active Problem Smoking F17.200 Active Problem Generalized anxiety disorder F41.1 Active Problem Backache M54.9 Active Medications No Known Medications Results No Known Results Summary Purpose [employer] Submission
--- OUTSIDE RECORDS SUMMARY | 2016-09-17 14:24 | XMS REPORT ---
Author Author Zandra Watson Organization eClinicalWorks Address Unknown Phone Unavailable Care Team Providers Care Control Supervisor Name Role Phone Zandra Watson CP Unavailable Allergies No Known Allergies Problems Problem Type Condition Code Onset Dates Condition Status Problem Noncompliance Z91.19 Active Problem Intrinsic asthma J45.909 Active Problem Bipolar affective disorder F31.9 Active Problem Edema R60.9 Active Problem Nausea and vomiting R11.2 Active Problem Dysmenorrhea N94.6 Active Problem long-term (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 Z79.891 Active Problem Other chronic pain G89.29 Active Problem Depression with anxiety F41.8 Active Problem Dermatitis L30.9 Active Problem Chronic pain G89.29 Active Problem Mixed hyperlipidemia E78.2 Active Assessment Dysmenorrhea N94.6 Active Problem Generalized anxiety disorder F41.1 Active Problem Backache M54.9 Active Problem AIDS B20 Active Problem GERD (gastroesophageal reflux disease) K21.9 Active Problem Smoking F17.200 Active Problem Migraine G43.909 Active Medications No Known Medications Results No Known Results Summary Purpose eClinicalWorks Submission
--- OUTSIDE RECORDS SUMMARY | 2016-09-17 14:24 | XMS REPORT ---
Author Author Zandra Watson Organization [employer] Address Unknown Phone Unavailable Care Team Providers Care Animal Control Supervisor Name Role Phone Zandra Watson [...]
--- OUTSIDE RECORDS SUMMARY | 2016-09-17 14:24 | XMS REPORT ---
Author Author Zandra Watson Organization [employer] Address Unknown Phone Unavailable Care Team Providers Care Resource Economist Name Role Phone Zandra Watson CP Unavailable [...] Start Date End Date Status Dosage Hydrocodone-Acetaminophen [facility] [address]-72 10-325 MG Orally every 6 hrs Nov 27, 2013 Dec 07, 2015 1 tablet as needed Results No Known Results Summary Purpose eClinicalWorks Submission
--- OUTSIDE RECORDS SUMMARY | 2016-09-17 14:24 | XMS REPORT ---
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
--- OUTSIDE RECORDS SUMMARY | 2016-09-17 14:24 | XMS REPORT ---
Author Author Zandra Watson [facility] eClinicalWorks Address Unknown Phone Unavailable Care Team Providers Care End Touching Machine Operator Name Role Phone Zandra Watson Unavailable Allergies No Known Allergies Problems Problem Type Condition Code Onset Dates Condition Status Problem GERD (gastroesophageal reflux disease) K21.9 Active Problem Noncompliance Z91.19 Active Problem Migraine G43.909 Active Problem Depression with anxiety F41.8 Active Problem Dermatitis L30.9 Active Problem Nausea and vomiting R11.2 Active Problem Intrinsic asthma J45.909 Active Problem Bipolar affective disorder F31.9 Active Problem half-way (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 Z79.891 Active Problem Other chronic pain G89.29 Active Problem AIDS B20 Active Problem Smoking F17.200 Active Problem Generalized anxiety disorder F41.1 Active Assessment Generalized anxiety disorder F41.1 Active Problem Backache M54.9 Active Medications Medication Code System Code Instructions Start Date End Date Status Dosage Cetirizine HCl [facility] [address]-72 10 MG Orally twice a day June 27, 2015 July 27, 2015 1 tablet Hydrocodone-Acetaminophen [facility] [address]-81 10-325 MG Orally every 6 hrs Nov 27, 2013 August 09, 2015 1 tablet as needed Zofran [facility] [address]-99 8 MG Orally every 8 hrs Feb 13, 2015 1 tablet as needed Azithromycin [facility] [address]-55 250 MG Orally Once a day May 09, 2015 1 tablet Genvoya [facility] [address]-13 150 mg/150 mg/200/mg/10 mg Oral Once a day Apr 1 tablet Marinol [facility] [address]-79 10 MG Orally Twice a day June 18, 2015 1 capsule before lunch and supper Xanax [facility] [address]-80 1 MG Orally Twice a day October 05, 2013 1 tablet Dapsone [facility] [address]-51 100 MG Orally Once a day May 09, 2015 1 tablet Celexa [facility] [address]-75 20 MG Orally Once a day June 01, 2015 1 tablet Permethrin [facility] [address]-30 5 % Externally apply head to toe; leave on 8- 12h then wash off with water, may reapply in 1 week June 01, 2015 as directed Results No Known Results Summary Purpose eClinicalWorks Submission
--- OUTSIDE RECORDS SUMMARY | 2016-09-17 14:24 | XMS REPORT ---
Author Author Zandra Watson Organization [employer] Address Unknown Phone Unavailable Care Team Providers Care Shipping Manager Name Role Phone Zandra Watson CP Unavailable Allergies No Known Allergies Problems Problem Type Condition Code Onset Dates Condition Status Problem GERD (gastroesophageal reflux disease) K21.9 Active Problem Noncompliance Z91.19 Active Problem Migraine G43.909 Active Problem Depression with anxiety F41.8 Active Problem Dermatitis L30.9 Active Problem Nausea and vomiting R11.2 Active Problem Intrinsic asthma J45.909 Active Problem Bipolar affective disorder F31.9 Active Problem halfway (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 Z79.891 Active Problem Other chronic pain G89.29 Active Problem AIDS B20 Active Problem Smoking F17.200 Active Problem Generalized anxiety disorder F41.1 Active Assessment Other chronic pain G89.29 Active Problem Backache M54.9 Active Medications Medication Code System Code Instructions Start Date End Date Status Dosage Hydrocodone-Acetaminophen [facility] [address]-18 10-325 MG Orally every 6 hrs Nov 27, 2013 Nov 07, 2015 1 tablet as needed Results No Known Results Summary Purpose eClinicalWorks Submission
--- OUTSIDE RECORDS SUMMARY | 2016-09-17 14:24 | XMS REPORT ---
Author Author Zandra Watson [facility] Address [address], [place] [id number] Care Team Providers Care Policy Issue Clerk Name Role Phone Zandra Watson Unavailable PROBLEMS Type Condition ICD9-CM Code HCX69-QT Code Onset Dates Condition Status SNOMED Code Problem Backache M54.9 Active 042692702 Problem Migraine G43.909 Active 78538346 Problem GERD (gastroesophageal reflux disease) K21.9 Active 541824476 Problem Mixed hyperlipidemia E78.2 Active 364576663 Problem AIDS B20 Active 60677839 Problem Generalized anxiety disorder F41.1 Active 79982686 Problem Dermatitis L30.9 Active 27661769 Problem Dysmenorrhea N94.6 well-controlled 904363584 Problem Intrinsic asthma J45.909 well-controlled 842082474 Problem Bipolar affective disorder F31.9 Active 30954376 Problem Nicotine dependence, cigarettes, uncomplicated F17.210 well- controlled 27911193 Problem long term acute care registered nurse (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 Z79.891 Active 845597739 ALLERGIES Unknown Allergies SOCIAL HISTORY No smoking Hx information available PLAN OF CARE VITAL SIGNS MEDICATIONS Unknown Medications RESULTS No Results PROCEDURES No Known procedures IMMUNIZATIONS No Known Immunizations
--- OUTSIDE RECORDS SUMMARY | 2016-09-17 14:24 | XMS REPORT ---
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
--- OUTSIDE RECORDS SUMMARY | 2016-09-17 14:24 | XMS REPORT ---
Author Author Zandra Watson Organization [employer] Address Unknown Phone Unavailable Care Team Providers Care Silica Mixer Operator Name Role Phone Zandra Watson CP [...]
--- OUTSIDE RECORDS SUMMARY | 2016-09-17 14:24 | XMS REPORT ---
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
--- OUTSIDE RECORDS SUMMARY | 2016-09-17 14:24 | XMS REPORT ---
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 V58.69 Active Assessment Unspecified backache 724.5 Active Assessment Other chronic pain 338.29 Active Medications Medication Code System Code Instructions Start Date End Date Status Dosage Cyclobenzaprine HCl [facility] [address]-94 10 MG Orally Three times a day 1 tablet Stribild [facility] [address]-56 715-185-899-300 MG Oral 1 (one) Tablet daily June 18, 2013 not defined Symbicort [facility] [address]-72 160-4.5 MCG/ACT Inhalation Twice a day May 01, 2014 2 puffs Hydrocodone-Acetaminophen [facility] [address]-57 10-325 MG Orally every 4-6 hrs Nov 27, 2013 September 04, 2014 1 tablet as needed Diflunisal [facility] [address]-61 500 MG Orally Three a day PRN July 28, 2014 1 tablet Proventil HFA [facility] [address]-43 108 (90 Base) MCG/ACT Inhalation every 4 hrs July 15, 2012 2 puffs as needed Procedures Procedure Coding System Code Date COMPREHEN METABOLIC PANEL CPT-4 51053 July 28, 2014 LIPID PANEL SO CPT-4 62921 July 28, 2014 T CELL, ABSOLUTE COUNT/RATIO CPT-4 47657 July 28, 2014 HIV-1, DNA, QUANT CPT-4 12241 July 28, 2014 BLOOD SEROLOGY, QUALITATIVE CPT-4 59740 July 28, 2014 VENIPUNCT, ROUTINE* CPT-4 36671 July 28, 2014 ASSAY OF FREE THYROXINE CPT-4 17288 July 28, 2014 ASSAY THYROID STIM HORMONE CPT-4 16331 July 28, 2014 Office Visit, Est Pt., Level 3 CPT-4 06107 July 28, 2014 Manager Transmission 3-10 Min in SX Smoker CPT-4 06981 July 28, 2014 Vital Signs Date/Time: July 28, 2014 Blood Pressure Systolic 112 mm Hg Temperature 96.9 F Weight 137.4 lbs Respiratory Rate 16 /min Cardiac Monitoring Heart Rate 78 /min Blood Pressure Diastolic 76 mm Hg Results No Known Results Summary Purpose eClinicalWorks Submission
--- OUTSIDE RECORDS SUMMARY | 2016-09-17 14:25 | XMS REPORT ---
Author Author Zandra Watson Organization eClinicalWorks Address Unknown Phone Unavailable Care Team Providers Care Foundation Drill Operator Helper Name Role Phone Zandra Watson CP Unavailable [...] J45.909 Active Problem Dermatitis L30.9 Active Problem halfway (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 [...]
--- OUTSIDE RECORDS SUMMARY | 2016-09-17 14:25 | XMS REPORT ---
Author Author Zandra Watson [facility] eClinicalWorks Address Unknown Phone Unavailable Care Team Providers Care Agricultural Engineering Technician Name Role Phone Zandra Watson CP [...] J45.909 Active Problem Dermatitis L30.9 Active Problem USP (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 [...] Date End Date Status Dosage Tramadol HCl [facility] [address]-75 50 MG Orally every 6 hrs October 08, 2015 Jan 19, 2016 1 tablet as needed Results No Known Results Summary Purpose eClinicalWorks Submission
--- OUTSIDE RECORDS SUMMARY | 2016-09-17 14:25 | XMS REPORT ---
Author Author Zandra Watson Organization eClinicalWorks Address Unknown Phone Unavailable Care Team Providers Care Certification Technician Name Role Phone Zandra Watson CP [...]
--- OUTSIDE RECORDS SUMMARY | 2016-09-17 14:25 | XMS REPORT ---
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 Z79.891 Active Problem Intrinsic asthma J45.909 Active Problem Nicotine dependence, cigarettes, uncomplicated F17.210 Active Problem GERD (gastroesophageal reflux disease) K21.9 Active Problem Backache M54.9 Active Problem Bipolar affective disorder F31.9 Active Problem Migraine G43.909 Active Assessment Mixed hyperlipidemia E78.2 Active Assessment Backache M54.9 Active Assessment Intrinsic asthma J45.909 Active Assessment Nicotine dependence, cigarettes, uncomplicated F17.210 Active Assessment Influenza vaccine needed Z23 Active Assessment Generalized anxiety disorder F41.1 Active Assessment AIDS B20 Active Medications Medication Code System Code Instructions Start Date End Date Status Dosage ProAir HFA [facility] [address]-48 108 (90 Base) MCG/ACT Inhalation every 4 hrs October 08, 2015 2 puffs as needed Proventil HFA [facility] 62605792398 90 INHALE TWO PUFFS BY MOUTH EVERY 4 HOURS Methocarbamol [facility] [address]-85 750 MG Orally every 8 hrs Jan 01, 2016 1 tablet Hydrocodone-Acetaminophen [facility] [address]-89 10-325 MG Orally every 6 hrs Nov 27, 2013 Jan 06, 2016 1 tablet as needed [facility] Omeprazole [facility] [address]-97 20 MG Orally Once a day Apr 13, 2015 1 tablet Genvoya [facility] [address]-63 150 mg/150 mg/200/mg/10 mg Oral Once a day Apr 1 tablet Zofran [facility] [address]-15 8 MG Orally every 8 hrs Oct 31, 2015 1 tablet as needed Marinol [facility] [address]-32 10 MG Orally Twice a day June 18, 2015 1 capsule before lunch and supper PredniSONE [facility] [address]-83 10 MG Orally Once a day Jan 04, 2016 taper - 8,7,6,5,4,3,2,[address] [facility] [address]-09 1 MG Orally Twice a day October 05, 2013 Feb 26, 2016 1 tablet as needed Dapsone [facility] [address]-16 100 MG Orally Once a day May 09, 2015 1 tablet Symbicort [facility] [address]-88 160-4.5 MCG/ACT Inhalation Twice a day May 01, 2014 2 puffs Procedures Procedure Coding System Code Date HIV-1, DNA, QUANT CPT-4 77985 Jan 04, 2016 T CELL, ABSOLUTE COUNT/RATIO CPT-4 74134 Jan 04, 2016 COMPREHEN METABOLIC PANEL CPT-4 70606 Jan 04, 2016 LIPID PANEL SO CPT-4 38937 Jan 04, 2016 IMMUNIZATION ADMIN CPT-4 27070 Jan 04, 2016 Office Visit, Est Pt., Level 3 CPT-4 71015 Jan 04, 2016 FLU VAC NO PRSV 4 JOCELYN 3 YRS+ CPT-4 25394 Jan 04, 2016 Vital Signs Date/Time: Jan 04, 2016 Temperature 97.8 F Weight 150 lbs Height 65 in Respiratory Rate 20 /min Cardiac Monitoring Heart Rate 88 /min Blood Pressure Diastolic 60 mm Hg Blood Pressure Systolic 98 mm Hg BMI 24.96 Index Results Name Result Date Reference Range Unit Abnormality Flag Metabolic Panel (14), Comprehensive (CMP) 92183 ----Calcium, Serum 9.6 51480829 8.7-10.2 mg/dL ----Carbon Dioxide, Total 21 20160104 18-29 mmol/L ----ALT (SGPT) 21 [id number] 0-32 IU/L ----Creatinine, Serum 0.83 07206190 0.57-1.00 mg/dL ----AST (SGOT) 22 20160104 0-40 IU/L ----eGFR If NonAfricn Am 88 55493743 >59 mL/min/1.73 ----Alkaline Phosphatase, S 77 28843658 39-117 IU/L ----eGFR If Africn Am 102 97912226 >59 mL/min/1.73 ----Bilirubin, Total 0.2 20160104 0.0-1.2 mg/dL ----BUN/Creatinine Ratio 20 20160104 9-23 ----A/G Ratio 1.9 20160104 1.1-2.5 ----Sodium, Serum 140 79016759 136-144 mmol/L ----Globulin, Total 2.5 37742365 1.5-4.5 g/dL ----Potassium, Serum 3.7 74520870 3.5-5.2 mmol/L ----Glucose, Serum 98 40369199 65-99 mg/dL ----Chloride, Serum 100 11166170 97-106 mmol/L ----Albumin, Serum 4.7 88155170 3.5-5.5 g/dL ----BUN 17 20160104 6-24 mg/dL ----Protein, Total, Serum 7.2 94659483 6.0-8.5 g/dL CD4/CD8 Ratio Profile 04198 ----Immature Grans (Abs) 0.0 55859334 0.0-0.1 x10E3/uL ----Immature Granulocytes 0 81237140 % ----Hematology Comments: [employer] 20160104 ----NRBC [employer] 20160104 ----Monocytes(Absolute) 0.5 39061508 0.1-0.9 x10E3/uL ----Lymphs (Absolute) 2.4 93072200 0.7-3.1 x10E3/uL ----Baso (Absolute) 0.0 98358238 0.0-0.2 x10E3/uL ----Eos (Absolute) 0.2 79724729 0.0-0.4 x10E3/uL ----Neutrophils (Absolute) 2.7 62296897 1.4-7.0 x10E3/uL ----Immature Cells [employer] 20160104 ----Basos 1 20160104 % ----Hemoglobin 13.0 97399346 11.1-15.9 g/dL ----Hematocrit 39.3 53280165 34.0-46.6 % ----CD4/CD8 Ratio 0.10 35321965 0.92-3.72 L ----Platelets 291 65754184 150-379 x10E3/uL ----RDW 14.0 27485777 12.3-15.4 % ----% CD 8 Pos. Lymph. 62.2 82282655 12.0-35.5 % H ----MCHC 33.1 28207358 31.5-35.7 g/dL ----RBC 4.17 48377915 3.77-5.28 x10E6/uL ----MCH 31.2 91229513 26.6-33.0 pg ----WBC 5.8 18071912 3.4-10.8 x10E3/uL ----Absolute CD 4 [place] 156 65992745 359-1519 /uL L ----Eos 4 68157363 % ----Monocytes 8 17903519 % ----Abs. CD 8 Suppressor 1493 72223264 109-897 /uL H ----Lymphs 41 37734685 % ----% CD 4 Pos. Lymph. 6.5 49628726 30.8-58.5 % L ----Neutrophils 46 18037559 % ----MCV 94 82088858 79-97 fL Human Immunodeficiency Virus (HIV-1), Quantitative, Real-time PCR (graph) 12511 ----HIV-1 RNA by PCR 4900 41963633 copies/mL ----log10 HIV-1 RNA 3.690 97255499 uyh30rkbt/mL Lipid Panel 49804 ----Comment: [employer] [id number] ----VLDL Cholesterol [place] 10 32293528 5-40 mg/dL ----LDL Cholesterol Calc 92 84107975 0-99 mg/dL ----Triglycerides 48 61523710 0-149 mg/dL ----HDL Cholesterol 69 75636204 >39 mg/dL ----Cholesterol, Total 171 72255610 100-199 mg/dL Immunizations Vaccine Administration Date Influenza Split 3 yrs > (QUAD) Jan 04, 2016 Summary Purpose eClinicalWorks Submission
--- OUTSIDE RECORDS SUMMARY | 2016-09-17 14:25 | XMS REPORT ---
Author Author Zandra Watson Organization eClinicalWorks Address Unknown Phone Unavailable Care Team Providers Care Wind Science And Planning Name Role Phone Zandra Watson CP Unavailable Allergies No Known Allergies Problems Problem Type Condition Code Onset Dates Condition Status Problem GERD (gastroesophageal reflux disease) K21.9 Active Problem Noncompliance Z91.19 Active Problem Migraine G43.909 Active Problem Depression with anxiety F41.8 Active Problem Dermatitis L30.9 Active Problem Nausea and vomiting R11.2 Active Problem Intrinsic asthma J45.909 Active Problem Bipolar affective disorder F31.9 Active Problem long-term (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 Z79.891 Active Problem Other chronic pain G89.29 Active Problem AIDS B20 Active Problem Smoking F17.200 Active Problem Generalized anxiety disorder F41.1 Active Assessment Rash and other nonspecific skin eruption R21 Active Problem Backache M54.9 Active Medications Medication Code System Code Instructions Start Date End Date Status Dosage PredniSONE [facility] [address]-59 10 MG Orally 8tabs day1,7tabs day2,6tabs day3, 5tabs day4,4tabs day5,3tabs day6,2tabs day7,1tab day8 June 27, 2015June tablet Cetirizine HCl [facility] [address]-50 10 MG Orally twice a day June 27, 2015 July 27, 2015 1 tablet Results No Known Results Summary Purpose eClinicalWorks Submission
--- OUTSIDE RECORDS SUMMARY | 2016-09-17 14:25 | XMS REPORT ---
Author Author Zandra Watson [facility] Address [address] [place], [place] [address] Care Team Providers Care Facsimile Operator Name Role Phone Zandra Watson Unavailable PROBLEMS Type Condition ICD9-CM Code UIU79-HC Code Onset Dates Condition Status SNOMED Code Problem Bipolar affective disorder F31.9 Active 61101276 Problem FPC (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 Z79.891 Active 432934659 Problem Intrinsic asthma J45.909 Active 739549562 Problem Acquired immune deficiency syndrome B20 Active 49171477 Problem Hyperglycemia R73.9 Active 09298803 Problem Dysmenorrhea N94.6 Active 746243621 Problem Nicotine dependence, cigarettes, uncomplicated F17.210 Active 18832930 Problem Localized edema R60.0 Active 945194606 Problem Dermatitis L30.9 Active 08300374 Problem Generalized anxiety disorder F41.1 Active 93202720 Problem Backache M54.9 Active 659657525 Problem GERD (gastroesophageal reflux disease) K21.9 Active 583685891 Problem Mixed hyperlipidemia E78.2 Active 212530837 Problem Migraine G43.909 Active 57819261 ALLERGIES Unknown Allergies SOCIAL HISTORY No smoking Hx information available PLAN OF CARE VITAL SIGNS MEDICATIONS Unknown Medications RESULTS No Results PROCEDURES No Known procedures IMMUNIZATIONS No Known Immunizations
--- OUTSIDE RECORDS SUMMARY | 2016-09-17 14:25 | XMS REPORT ---
Author Author Zandra Watson Organization eClinicalWorks Address Unknown Phone Unavailable Care Team Providers Care Senior Litigation Paralegal Name Role Phone Zandra Watson CP Unavailable [...] Date End Date Status Dosage Tramadol HCl [facility] [address]-38 50 MG Orally every 4-6 hrs Apr 13, 2015 1 tablet as needed Stribild [facility] [address]-76 058-261-530-300 MG Orally Once a day 1 tablet Xanax [facility] [address]-25 1 MG Orally Twice a day October 05, 2013 Apr 13, 2015 1 tablet Results No Known Results Summary Purpose eClinicalWorks Submission
--- OUTSIDE RECORDS SUMMARY | 2016-09-17 14:25 | XMS REPORT ---
Author Author Zandra Watson [facility] eClinicalWorks Address Unknown Phone Unavailable Care Team Providers Care Hot Top Liner Helper Name Role Phone Zandra Watson CP [...] Active Problem Unspecified backache 724.5 Active Assessment Depressive disorder 311 Active Problem Unspecified dental caries 521.00 Inactive Problem Bipolar disorder, unspecified 296.80 Active Problem Esophageal reflux 530.81 Active Problem Symptomatic menopausal or female climacteric states 627.2 Inactive Problem Need for prophylactic vaccination and inoculation, Influenza V04.81 Inactive Problem Dyspepsia and other specified disorders of function of stomach 536.8 Active Problem [facility] (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 V58.69 Inactive [...] Start Date End Date Status Dosage Xanax [facility] [address]-49 1 MG Orally Twice a day October 05, 2013 May 17, [address] [facility] [address]-35 10 MG Orally Once a day Mar 29, 2014 taper - 8,7,6,5,4,3,2,[address] [facility] [address]-57 20 MG Orally Once a day [address] [facility] [address]-18 108 (90 Base) MCG/ACT Inhalation 2-4 puffs every foursix hours July 15, 2012 not defined Zithromax Z-Riky [facility] [address]-93 250 MG Orally Once a day Mar 29, 2014 2 tablets on the first day, then 1 tablet daily for [address] [facility] [address]-41 10 MG Orally Twice a day Dec 08, 2013 June 06, 2014 1 capsule Hydrocodone-Acetaminophen [facility] [address]-09 10-325 MG Orally every 4-6 hrs Nov 27, 2013 May 29, 2014 1 tablet as needed Escitalopram Oxalate [facility] [address]-53 10 MG Orally Once a day for 7days then increase to 2 tabs qd thereon 2014 May 18, [address] [facility] [address]-28 [phone] MG Oral 1 (one) Tablet daily June 18, 2013 not [address] HCl [facility] [address]-35 10 MG Orally Three times a day 1 tablet Results No Known Results Summary Purpose eClinicalWorks Submission
--- OUTSIDE RECORDS SUMMARY | 2016-09-17 14:25 | XMS REPORT ---
Author Author Zandra Watson [facility] Address [address], [place] [id number] Care Team Providers Care Adhesive Bonding Machine Operator Name Role Phone Zandra Watson Unavailable PROBLEMS Type Condition ICD9-CM Code ULE62-AT Code Onset Dates Condition Status SNOMED Code Problem Bipolar affective disorder F31.9 Active 44117596 Problem half-way (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 Z79.891 Active 057137219 Problem Intrinsic asthma J45.909 Active 239153759 Problem Acquired immune deficiency syndrome B20 Active 35559900 Problem Hyperglycemia R73.9 Active 37792873 Problem Dysmenorrhea N94.6 Active 635411381 Problem Nicotine dependence, cigarettes, uncomplicated F17.210 Active 38078859 Problem Localized edema R60.0 Active 722369186 Problem Dermatitis L30.9 Active 69941422 Problem Generalized anxiety disorder F41.1 Active 46945955 Problem Backache M54.9 Active 596734539 Problem GERD (gastroesophageal reflux disease) K21.9 Active 276969557 Problem Mixed hyperlipidemia E78.2 Active 036317023 Problem Migraine G43.909 Active 40619335 ALLERGIES Unknown Allergies SOCIAL HISTORY No smoking Hx information available PLAN OF CARE VITAL SIGNS MEDICATIONS Unknown Medications RESULTS No Results PROCEDURES No Known procedures IMMUNIZATIONS No Known Immunizations
--- OUTSIDE RECORDS SUMMARY | 2016-09-17 14:25 | XMS REPORT ---
Author Author Zandra Watson Organization e[employer] Address Unknown Phone Unavailable Care Team Providers Care Body Trimmer Name Role Phone Zandra Watson CP Unavailable Allergies No Known Allergies Problems Problem Type Condition Code Onset Dates Condition Status Problem GERD (gastroesophageal reflux disease) K21.9 Active Problem Noncompliance Z91.19 Active Problem Migraine G43.909 Active Problem Depression with anxiety F41.8 Active Problem Dermatitis L30.9 Active Problem Nausea and vomiting R11.2 Active Problem Intrinsic asthma J45.909 Active Problem Bipolar affective disorder F31.9 Active Problem custodial (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 Z79.891 Active Problem Other chronic pain G89.29 Active Problem AIDS B20 Active Problem Smoking F17.200 Active Problem Generalized anxiety disorder F41.1 Active Problem Backache M54.9 Active Medications No Known Medications Results No Known Results Summary Purpose eClinicalWorks Submission
== END 2016-09-14 23:21 | disposition home or self-care (01) ==
LOC: EDUNIT# 20:32 → ER 20:36
DX: N94.6 Dysmenorrhea, unspecified (principal); N92.1 Excessive and frequent menstruation with irregular cycle; N85.8 Other specified noninflammatory disorders of uterus; K42.9 Umbilical hernia without obstruction or gangrene; J45.909 Unspecified asthma, uncomplicated; F15.90 Other stimulant use, unspecified, uncomplicated; F17.210 Nicotine dependence, cigarettes, uncomplicated; Z21 Asymptomatic human immunodeficiency virus [HIV] infection status; Z87.19 Personal history of other diseases of the digestive system; Z90.49 Acquired absence of other specified parts of digestive tract; Z98.51 Tubal ligation status
CPT/HCPCS: 36415; 71010; 74000; 74177; 80053; 80306; 80320; 80329; 81000; 82150; 83690; 83735; 84703; 85025; 85610; 85730; 96361; 96374; 96375

== ENCOUNTER 2016-10-13 08:48 | Emergency (ER) | payer BC, MEDICAID ==
[~2016-10-13] VITALS: Ht 165.1 cm; Wt 66.2 kg
[~2016-10-13 08:48] MED LIST changes: +ALBU18HF2; +DRON10CA2; +ELVI1TAB; +KETO10TA PO; +ONDA8TAB12; +TRAM50TA2
--- NOTE | 2016-10-13 09:54 | ED Abdominal Pain ---
General Chief Complaint: Abdominal/GI Problems Stated Complaint: PELVIC/ABD PAIN Nursing Triage Note: AMB TO ROOM REPORTS IS TO HAVE HYSTERECTOMY ON OCT 24 HAS BEEN CRAMPING WITH VAG BLEEDING. IS OUT OF PAIN MEDS . OTC MEDS NOT HELPING. Sepsis Screen: No Definite Risk Source of Information: Patient Exam Limitations: No Limitations History of Present Illness Time Seen By Provider: 09:40 Initial Comments Here with report of lower abdominal cramping and pain which is consistent with previous visits for the same. She has seen Dr. Caceres and has hysterectomy scheduled for October 24. She is currently out of her pain medicine. She called Dr. Caceres's office who instructed her to come to the ER for evaluation if she needed more pain medicines. She reports that her vaginal bleeding has been waxing and waning. Denies acute worsening. Timing/Duration: 3-4 Days Severity/Quality: Moderate, Severe, Aching, Cramping Location: LLQ Radiation: No Radiation Activities at Onset: None Associated Symptoms: No Fever/Chills, No Nausea/Vomiting, No Swelling/Mass in Abdomen, No Weakness Allergies and Home Medications Allergies Coded Allergies: Oxycodone Terephthalate (Unverified Allergy, Severe, ITCHING, 06/08/11) aspirin (Unverified Allergy, Severe, ITCHING, 06/08/11) oxycodone HCl (Unverified Allergy, Severe, ITCHING, 06/08/11) Uncoded Allergies: NKDA (Allergy, Mild, 08/14/08) Home Medications Albuterol Sulfate 2.5 Mg/3 Ml Solution, 2.5 MG IH TID, (Reported) Albuterol Sulfate 18 Gm Hfa.aer.ad, #18 (Reported) Alprazolam 1 Mg Tablet, 1 MG PO BID, (Reported) Dronabinol 10 Mg Capsule, #60 (Reported) Elvitegr/Cobicist/Emtric/Tenof 1 Each Tablet, #30 (Reported) Hydrocodone Bit/Acetaminophen 1 Each Tablet, 1 EACH PO Q4H PRN, (Reported) Hydrocodone Bit/Acetaminophen 1 Tab Tablet, 1-2 EACH PO Q6H PRN, #40 Ref 0 Prescribed by: CRISTAL SANFORD on 06/02/12 1558 Ibuprofen 800 Mg Tablet, 1 EACH PO TID PRN, #30 Prescribed by: CARMELA MISHRA on 05/27/12 0135 Ketorolac Tromethamine 10 Mg Tablet, 10 MG PO Q6H, #15 Prescribed by: LC BLAKE on 09/14/16 2316 Ondansetron HCl 8 Mg Tablet, #30 (Reported) Polyethylene Glycol 17 Gm Pack, 17 GM GT BID, #30 Use twice daily in 8 oz of water or juice until abdominal pain and constipaion resolve. Then use daily as needed. Prescribed by: CARMELA MISHRA on 05/27/12 0135 Tramadol HCl 50 Mg Tablet, #120 (Reported) Tramadol Hcl 50 Mg Tab, 50 MG PO Q4H, #20 Prescribed by: CARMELA MISHRA on 05/27/12134 Review of Systems Constitutional: see HPI, No chills, No fever Respiratory: No Symptoms Reported Cardiovascular: No Symptoms Reported Gastrointestinal: See HPI, Abdominal Pain Genitourinary: See HPI, Other (persistent vaginal bleeding) Musculoskeletal: no symptoms reported Past Zxpfyjn-Dpqhqe-Yrngtc Hx Patient Social History Alcohol Use: Occasionally Uses Recreational Drug Use: No Type Used: Cigarettes 2nd Hand Smoke Exposure: Yes Recent Foreign Travel: No Contact w/Someone Who Travel: No Recent Infectious Disease Expo: No Recent Hopitalizations: No Immunizations Up To Date Tetanus Booster (TDap): Less than 5yrs Date of Pneumonia Vaccine: Mar 16, 2009 Date of Influenza Vaccine: Mar 16, 2012 Seasonal Allergies Seasonal Allergies: No Surgeries HX Surgeries: Yes (RUDDY 2010, WITH ERCP;) Surgeries: Gallbladder, Tubal Ligation Respiratory Hx Respiratory Disorders: Yes Respiratory Disorders: Asthma Cardiovascular Hx Cardiac Disorders: No Neurological Hx Neurological Disorders: No 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 System Hx 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 Disorders: Yes Sexually Transmitted Disease: No HIV/AIDS: Yes Female 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 Disorders: Denies DISTRICT MA[employer]GER [employer] History: Tubal Ligation Genitourinary Hx Genitourinary Disorders: No Gastrointestinal Hx Gastrointestinal Disorders: Yes Gastrointestinal Disorders: Abdominal Hernia, Liver Disease/Jaundice Musculoskeletal Hx Musculoskeletal Disorders: No Endocrine Hx Endocrine Disorders: No HEENT HX ENT Disorders: No Cancer Hx Cancer: No Psychosocial Hx Psychiatric Problems: No Integumentary HX Skin/Integumentary Disorder: No Blood Transfusions Hx Blood Disorders: Yes (HIV) Adverse Reaction to a Blood Tr: No Reviewed Nursing Assessment Reviewed/Agree w Nursing PMH: Yes Family Medical History Significant Family History: No Pertinent Family Hx, Cancer, Hypertension Physical Exam Vital Signs VS - Last 72 Hours, by Label 10/13/16 08:52 Temp 97.4 Pulse 79 Resp 18 B/P (MAP) 96/71 Pulse Ox 96 Capillary Refill : Less Than 3 Seconds General Appearance: WD/WN, no apparent distress Respiratory: lungs clear, normal breath sounds Cardiovascular: regular rate, rhythm, no murmur Gastrointestinal: non tender, soft Neurologic/Psychiatric: alert, oriented x 3 Progress/Results/Core Measures Results/Orders My Orders Orders - CRISTAL SANFORD MD Oxycodone/Acet 10/325mg Tablet (Percocet (10/13/16 10:00) Vital Signs/I&O Vital Sign - Last 12Hours 10/13/16 08:52 Temp 97.4 Pulse 79 Resp 18 B/P (MAP) 96/71 Pulse Ox 96 Blood Pressure Mean: 79 Progress Note : Progress Note Seen and evaluated. Percocet 10/325 given. Patient states these help. Discharged home with return precautions. Patient verbalize understanding instructions and agreement with plan. Departure Impression Impression: Primary Impression: Dysmenorrhea Additional Impression: Abdominal pain, left lower quadrant Disposition: 01 HOME, SELF-CARE Condition: Stable Departure-Patient Inst. Decision time for Depature: 09:53 Referrals: JAKY CACERES MD NO,LOCAL PHYSICIAN (PCP) Primary Care Physician Patient Instructions: Acute Abdomen (Belly Pain), Adult (DC), Acute Pelvic Pain (DC), IRREGULAR VAGINAL BLEEDING Add. Discharge Instructions: All discharge instructions reviewed with patient and/or family. Voiced understanding. Take medications as directed. He'll need to follow-up with her doctor for further refills regarding her pain medicine. Do not miss your surgery appointment. Return for worse pain, fever, vomiting, weakness, breathing problems or other concerns as needed. Scripts Oxycodone HCl/Acetaminophen (Oxycodone-Acetaminophen 10-325) 1 Each Tablet 1 EACH PO Q6H Y for PAIN-MODERATE, #12 TAB Prov: CRISTAL SANFORD MD 10/13/16 CRISTAL SANFORD MD Oct 13, 2016 09:54
[2016-10-13] MEDS ORDERED: OXYC-465 PO (09:55)
[2016-10-13] MEDS ORDERED: oxyCODONE/APAP 10/325MG (PERCOCET 10) TABLET PO ONE (10:00)
[2016-10-13 10:09] VITALS: BP 96/71
== END 2016-10-13 10:11 | disposition home or self-care (01) ==
LOC: EDUNIT# 08:48 → ER 08:51
DX: N94.6 Dysmenorrhea, unspecified (principal); J45.909 Unspecified asthma, uncomplicated; Z21 Asymptomatic human immunodeficiency virus [HIV] infection status; Z98.51 Tubal ligation status; Z87.42 Personal history of other diseases of the female genital tract; Z90.49 Acquired absence of other specified parts of digestive tract; Z77.22 Contact with and (suspected) exposure to environmental tobacco smoke (acute) (chronic); Z87.19 Personal history of other diseases of the digestive system
CPT/HCPCS: 99283

== ENCOUNTER → 2016-10-16 | Outpatient (CLI) | payer BC, MEDICAID ==
[~2016-10-16] MED LIST changes: +ALPR1TAB2 PO; +AZIT250T PO; +DAPS100T3 PO; +DICY20TA10 PO; +DOCU100C37 PO; +DRON10CA2 PO; +ELVI1TAB PO; +IBUP-1780 PO; +ONDA8TAB6 PO; +OXYC-465 PO; +RT-ALBUINH IH
--- NOTE | 2016-10-16 11:21 | Diagnostic Imaging Report ---
PA and lateral views of the chest Indication: Wheezing Findings: The lungs are hyperinflated but clear. The heart size is normal. There is no effusion or pneumothorax The mediastinum and asad appear unremarkable. Impression: Hyperinflated clear lungs. Dictated by: Dictated on workstation # [id number]
== END ==
LOC: RAD 10:26
PROVIDERS: ATTEND Nurse Practitioner Family
DX: J45.909 Unspecified asthma, uncomplicated (principal); J30.2 Other seasonal allergic rhinitis; Z72.0 Tobacco use
CPT/HCPCS: 71020

== ENCOUNTER 2016-10-20 11:43 | Outpatient (CLI) | payer BC, MEDICAID ==
[~2016-10-20] VITALS: Ht 165.1 cm; Wt 65.8 kg
[~2016-10-20 11:43] MED LIST changes: -ALPR1TAB2 PO; -AZIT250T PO; -DAPS100T3 PO; -DICY20TA10 PO; -DOCU100C37 PO; -DRON10CA2 PO; -ELVI1TAB PO; -IBUP-1780 PO; -ONDA8TAB6 PO; -RT-ALBUINH IH
[2016-10-20] MEDS ORDERED: DRON10CA2 PO (12:08)
[2016-10-20] MEDS ORDERED: METH750T3 PO (12:08)
[2016-10-20] MEDS ORDERED: DAPS100T3 PO (12:08)
[2016-10-20] MEDS ORDERED: AZIT250T PO (12:08)
[2016-10-20] MEDS ORDERED: RT-ALBUINH IH (12:08)
[2016-10-20] MEDS ORDERED: DICY20TA10 PO (12:08)
[2016-10-20] MEDS ORDERED: ELVI1TAB PO (12:08)
[2016-10-20] MEDS ORDERED: ONDA8TAB6 PO (12:08)
[2016-10-20] MEDS ORDERED: ALPR1TAB2 PO (12:08)
[2016-10-20 12:11] VITALS: BP 108/75
[2016-10-20 12:46] LABS: BASOPHILS % (AUTO) 0 % (0-10); EOSINOPHILS % (AUTO) 0 % (0-10); LYMPHOCYTES # (AUTO) 0.6 X 10^3 (1.0-4.0); LYMPHOCYTES % (AUTO) 12 % (12-44); MEAN CORPUSCULAR HEMOGLOBIN 30 PG (25-34); MEAN CORPUSCULAR HGB CONC 33 G/DL (32-36); MEAN CORPUSCULAR VOLUME 92 FL (80-99); MEAN PLATELET VOLUME 11.4 FL (7.4-10.4); MONOCYTES # (AUTO) 0.1 X 10^3 (0.0-1.0); MONOCYTES % (AUTO) 3 % (0-12); NEUTROPHILS # (AUTO) 4.5 X 10^3 (1.8-7.8); NEUTROPHILS % (AUTO) 85 % (42-75); PLATELET COUNT 201 10^3/uL (130-400); RED BLOOD COUNT 3.93 10^6/uL (4.35-5.85); RED CELL DISTRIBUTION WIDTH 17.2 % (10.0-14.5); WHITE BLOOD COUNT 5.2 10^3/uL (4.3-11.0)
[2016-10-20 13:21] LABS: ANION GAP 11 MMOL/L (5-14); BLOOD UREA NITROGEN 19 MG/DL (7-18); BUN/CREATININE RATIO 24; CALCIUM 9.6 MG/DL (8.5-10.1); CARBON DIOXIDE 21 MMOL/L (21-32); CHLORIDE 109 MMOL/L (98-107); CREATININE SERUM 0.79 MG/DL (0.60-1.30); GFR ESTIMATED > 60; GLUCOSE 103 MG/DL (70-105); POTASSIUM 3.2 MMOL/L (3.6-5.0); SODIUM 141 MMOL/L (135-145)
== END 2016-10-20 15:53 | disposition home or self-care (01) ==
LOC: PREOP 11:43
PROVIDERS: ATTEND Obstetrics & Gynecology
DX: Z01.812 Encounter for preprocedural laboratory examination (principal); Z11.2 Encounter for screening for other bacterial diseases; K43.9 Ventral hernia without obstruction or gangrene
CPT/HCPCS: 36415; 80048; 85025; 86850; 86900; 86901; 87081

== ENCOUNTER → 2016-10-29 | Outpatient (CLI) | payer BC, MEDICAID ==
[~2016-10-29] MED LIST changes: +ALPR1TAB2 PO; +AZIT250T PO; +DAPS100T3 PO; +DICY20TA10 PO; +DRON10CA2 PO; +ELVI1TAB PO; +ONDA8TAB6 PO; +RT-ALBUINH IH; +RT-ALBUTEROL SULF 2.5 MG/3 ML PRE-MIX VIAL IH ONE
== END ==
LOC: RAD 12:58
PROVIDERS: ATTEND Nurse Practitioner Family
DX: J45.909 Unspecified asthma, uncomplicated (principal); J30.2 Other seasonal allergic rhinitis; R06.2 Wheezing; Z72.0 Tobacco use
CPT/HCPCS: 94060; 94640; 94726; 94729

== ENCOUNTER 2016-11-11 13:49 | Outpatient (CLI) | payer BC ==
[~2016-11-11] VITALS: Ht 165.1 cm; Wt 66.0 kg
[2016-11-11 13:44] VITALS: BP 111/60
[~2016-11-11 13:49] MED LIST changes: -RT-ALBUTEROL SULF 2.5 MG/3 ML PRE-MIX VIAL IH ONE
== END 2016-11-11 15:00 ==
LOC: PREOP 13:49
PROVIDERS: ATTEND Obstetrics & Gynecology
DX: Z01.818 Encounter for other preprocedural examination (principal); K43.9 Ventral hernia without obstruction or gangrene; N92.1 Excessive and frequent menstruation with irregular cycle; N85.2 Hypertrophy of uterus
CPT/HCPCS: 87081

== ENCOUNTER 2016-11-28 10:10 | Day surgery (SDC) | payer BC, MEDICAID ==
[~2016-11-28] VITALS: Ht 165.1 cm; Wt 66.0 kg
[2016-11-28] MEDS ORDERED: ATRACURIUM 50 MG/5 ML (TRACRIUM) IV ONE (10:11)
[2016-11-28] MEDS: LACTATED RINGERS 1,000 ML IV PRN ×3 (11:00→16:02)
[2016-11-28] MEDS ORDERED: D5 LR IV SOLUTION 1,000 ML IV SCH (11:19)
--- NOTE | 2016-11-28 11:19 | Progress Note-Pre Operative ---
Pre-Operative Progress Note H&P Reviewed The H&P was reviewed, patient examined and no changes noted. Date Seen by Provider: Nov 28, 2016 Time Seen by Provider: 11:18 Date H&P Reviewed: Nov 28, 2016 Time H&P Reviewed: 11:18 Pre-Operative Diagnosis: pelvic mass/pelvic pain/menorrhagia JAKY RUIZ MD Nov 28, 2016 11:18 am
--- NOTE | 2016-11-28 11:19 | Progress Note-Post Operative ---
Post-Operative Progess Note Surgeon (s)/Dresser Tender (s) Surgeon JAKY RUIZ MD Dresser Tender: Mandy Torres Pre-Operative Diagnosis pelvic mass/pelvic pain/menorrhagia Post-Operative Diagnosis same with pathology pending Procedure & Operative Findings Date of Procedure 11/28/16 Procedure Performed/Findings total laparoscopic hysterectomy with bilateral salpingectomy Anesthesia Type GETA Estimated Blood Loss Estimated blood loss (mL): less than 100 mL Specimens/Packing Specimens Removed uterus and fallopian tubesleft ovary and part of right ovary Packing: none JAKY RUIZ MD Nov 28, 2016 11:19
[2016-11-28] MEDS ORDERED: LIDOCAINE PF 2% 5 ML (XYLOCAINE) VIAL ONE (11:22)
[2016-11-28] MEDS ORDERED: proPOfol 200 MG/20 ML (DIPRIVAN) VIAL IV ONE (11:22)
[2016-11-28] MEDS ORDERED: MIDAZOLAM 2 MG/2 ML (VERSED) VIAL ONE (11:22)
[2016-11-28] MEDS ORDERED: LACTATED RINGERS 1,000 ML IV ONE ×3 (11:22→15:55)
[2016-11-28] MEDS ORDERED: ONDANSETRON 4 MG/2 ML (SDV) Z0FRAN ONE ×2 (11:22→13:41)
[2016-11-28] MEDS ORDERED: DESFLURANE (SUPRANE) 15 ML INHAL SOLN ONE ×16 (11:23→15:55)
[2016-11-28] MEDS ORDERED: DEXAMETHASONE 10 MG/ML (DECADRON) 1 ML VIAL ONE (11:23)
[2016-11-28] MEDS ORDERED: fentaNYL INJECTION 250 MCG/5 ML AMP ONE (11:23)
[2016-11-28] MEDS ORDERED: BUP/EPI 0.5% 1:200,000 (MARCAINE) 10ML VIAL IJ ONE (11:29)
[2016-11-28] MEDS ORDERED: ceFAZolin 1 GM/NS 50 ML IVPB IV ONE ×2 (11:30)
[2016-11-28] MEDS ORDERED: ONDANSETRON 4 MG/2 ML (SDV) Z0FRAN IVP PRN ×2 (11:30→16:45)
--- NOTE | 2016-11-28 12:21 | Progress Note-Pre Operative ---
Pre-Operative Progress Note H&P Reviewed The H&P was reviewed, patient examined and no changes noted. Date Seen by Provider: Nov 28, 2016 Time Seen by Provider: 12:21 Date H&P Reviewed: Nov 28, 2016 Time H&P Reviewed: 12:21 Pre-Operative Diagnosis: ventral hernia JENNA BEDOYA MD Nov 28, 2016 12:21 pm
[2016-11-28] MEDS ORDERED: ESTROGENS CONJ IV 25 MG/5 ML (PREMARIN) VIAL ONE (13:39)
[2016-11-28] MEDS ORDERED: KETOROLAC 30 MG/ML VIAL ONE (13:39)
[2016-11-28] MEDS ORDERED: WATER (STERILE) FOR INJECTION 0 ML ONE (13:39)
[2016-11-28] MEDS ORDERED: morphine INJ 10 MG/ML 1ML (SYR OR VIAL) ONE (13:40)
[2016-11-28] MEDS ORDERED: MEPERIDINE (DEMEROL) INJ 50 MG/ML ONE (13:40)
[2016-11-28 14:29] VITALS: BP 124/94
[2016-11-28] MEDS ORDERED: ceFAZolin 1,000 MG (ANCEF) VIAL ONE (15:50)
[2016-11-28] MEDS ORDERED: fentaNYL INJECTION 100 MCG/2 ML AMP ONE (16:11)
[2016-11-28] MEDS ORDERED: MEPERIDINE (DEMEROL) INJ 50 MG/ML IVP PRN (16:45)
[2016-11-28] MEDS ORDERED: HYDROmorphone (DILAUDID) 2 MG/ML VIAL IVP PRN (16:45)
--- NOTE | 2016-11-28 16:47 | Operative Report ---
Operative Report Date of Procedure/Surgery Nov 28, 2016 Surgeon (s) JENNA BEDOYA MD Refrigeration Mechanic Helper (s): not applicable Post-Operative Diagnosis same with pathology pending Procedure Performed robotic assisted repair of ventral hernia with biologic mesh Description of Procedure Anesthesia Type: General Estimated blood loss (mL): minimal Specimen(s) collected/removed none Packing: none Description of the Procedure Indication for procedure: This lady was scheduled to undergo robotic-assisted hysterectomy by Dr. Caceres. She also had a ventral hernia around her umbilicus requiring repair. She was offered concomitant repair using minimally invasive technique and biologic mesh at the end of hysterectomy, under the same anesthetic. The use of biologic mesh was relevant due to the contaminated nature of hysterectomy, vaginal mucosa being exposed as part of the procedure. Informed consent was obtained after reviewing the operative details and complications of postoperative hematoma, wound infection and recurrence of the hernia. Description of the procedure: Once hysterectomy had been completed, abdomen was re-prepared and draped separately. The right side of her body was lifted up on a roll to facilitate triangulation of the robotic system.pneumoperitoneum was established using a Veress needle introduced over the right subcostal margin, along the midaxillary line. Intra-abdominal pressure was maintained at 15 mmHg , using carbon dioxide insufflation. A 12 mm trocar was placed and anatomy visualized using the high definition, 3-dimensional laparoscope associated with da [employer] system. Under direct view, I placed another 12 mm trocar along the right side of the abdomen, overlying the midaxillary line, followed by an 8 mm trocar over the right lower quadrant. The robotic system was then docked in place. Laparoscopic survey confirmed the hernia containing omentum. The latter was taken down using hook cautery, revealing a 3 cm defect. It was initially approximated using 2 separate VLOC sutures with robotic assistance. Intra-abdominal pressure was reduced to 11 mmHg during this maneuver, to avoid tension on the suture line.the repair was then reinforced using a biologic mesh( [employer]) ring 8 x 4 cm in size. It 2-0 Vicryl suture was placed at the center of the mesh which was then introduced into the peritoneal cavity with the suture being held up him up to facilitate anchoring of the mesh. The edges of the mesh where secured to the abdominal muscles using 2-0 V- lock suture.hemostasis was satisfactory and the operation concluded. Incisions were closed using 4-0 Vicryl, in a subcuticular fashion. 0.5 percent Marcaine with epinephrine was infiltrated along the incisions, both pre-emptively and at the conclusion of the operation. She tolerated the procedure well, was extubated in the operating room and taken to the recovery room in a stable condition. Findings of the Procedure see operative report Allergies and Home Medications Allergies Coded Allergies: No Known Drug Allergies (Unverified , 11/11/16) Home Medications Albuterol Sulfate 1 Puff Puff, 2 PUFF IH Q4H PRN for SHORTNESS OF BREATH, ( Reported) 1 PUFF = 90 MCG Alprazolam 1 Mg Tablet, 1 MG PO BID, (Reported) Azithromycin 250 Mg Tablet, 250 MG PO DAILY, (Reported) Dapsone 100 Mg Tablet, 100 MG PO DAILY, (Reported) Dicyclomine HCl 20 Mg Tablet, 20 MG PO TID, (Reported) Dronabinol 10 Mg Capsule, 10 MG PO BID, (Reported) Elvitegr/Cobicist/Emtric/Tenof 1 Each Tablet, 1 EACH PO DAILY, (Reported) Methocarbamol 750 Mg Tablet, 750 MG PO Q8H, (Reported) Ondansetron HCl 8 Mg Tablet, 8 MG PO Q8H PRN for NAUSEA/VOMITING-1ST LINE, ( Reported) JENNA BEDOYA MD Nov 28, 2016 4:46 pm
[2016-11-28] MEDS: morphine INJ 10 MG/ML 1ML (SYR OR VIAL) IVP PRN ×2 (16:50→16:55)
[2016-11-28] MEDS: KETOROLAC 30 MG/ML VIAL IVP SCH ×2 (17:00→23:33)
[2016-11-28 17:45] VITALS: BP 120/81
[2016-11-28 17:50] VITALS: BP 121/81
[2016-11-28] MEDS: fentaNYL INJECTION 100 MCG/2 ML AMP IVP PRN ×2 (18:39→21:17)
[2016-11-28 19:40] VITALS: BP 115/83
[2016-11-28] MEDS: oxyCODONE/APAP 10/325MG (PERCOCET 10) TABLET PO PRN (19:54)
[2016-11-28 23:35] VITALS: BP 123/77
[2016-11-29] MEDS: oxyCODONE/APAP 10/325MG (PERCOCET 10) TABLET PO PRN ×3 (01:53→11:36)
[2016-11-29 04:05] VITALS: BP 115/67
[2016-11-29] MEDS: fentaNYL INJECTION 100 MCG/2 ML AMP IVP PRN (04:07)
[2016-11-29] MEDS: KETOROLAC 30 MG/ML VIAL IVP SCH (05:28)
--- NOTE | 2016-11-29 06:59 | Progress Note-Standard ---
Standard Progress Note Progress Notes/Assess & Plan Date Seen by Provider: Nov 29, 2016 Time Seen by Provider: 06:58 Progress/Assessment & Plan patient is without complaint. She is ambulating, voiding, tolerating by mouth, has good pain control. Patient denies chest pain, denies shortness of breath, denies nausea vomiting, denies headache. Vital Signs Date Time Temp Pulse Resp B/P (MAP) Pulse Ox O2 Delivery O2 Flow Rate FiO2 11/29/16 05:00 Room Air 11/29/16 04:20 98.2 94 Nasal Cannula 2.00 11/29/16 04:05 99.9 87 20 115/67 89 Room Air 11/28/16 23:52 Room Air 11/28/16 23:35 99.0 71 16 123/77 92 Room Air 11/28/16 21:15 95 Nasal Cannula 2.00 11/28/16 19:40 98.8 87 18 115/83 95 Room Air 11/28/16 17:50 97.1 90 20 121/81 93 Room Air 11/28/16 17:45 97.1 90 18 120/81 96 Nasal Cannula 2.00 11/28/16 16:55 97.6 11/28/16 16:50 97.6 11/28/16 14:29 98.1 61 18 124/94 97 Room Air Vital signs are stable. Patient is afebrile. The abdomen is benign. Bowel sounds are present in all 4 quadrants. Extremities show clubbing or cyanosis. There is no Homans sign. Assessment and plan postoperative day number 1 doing well. Plan is for discharge home with follow-up in clinic Final Diagnosis pelvic mass/AMERICO/pelvic pain JAKY RUIZ MD Nov 29, 2016 6:59 am
[2016-11-29] MEDS ORDERED: OXYC-465 PO (07:04)
[2016-11-29] MEDS ORDERED: DOCU100C37 PO (07:04)
[2016-11-29] MEDS ORDERED: IBUP-1780 PO (07:04)
--- NOTE | 2016-11-29 07:05 | Discharge Instructions ---
Discharge Instructions Discharge Medications New, Converted or Re-Newed RX: RX on Chart Patient Instructions Patient Instructions: as directed Return to The Hospital For: as directed Activity & Diet Discharge Diet: No Restrictions Activity as Tolerated: No Orders-Post D/C & Referrals Follow Up Appt: return to clinic on Thursday, December 01, 2016 at 930 a.m. for staple removal Call to make follow up appt. for patient in 4 weeks. Activity: Rest for 24 hours, than as tolerated. Wound Care: May remove Band-Aid tomorrow. Replace as desired. Keep incisions clean and dry. Wash daily with soap and water. Please call in RX to patient pharmacy. Diet: As tolerated-Clear Liquids only if nauseated. Tomorrow, may shower or tub bathe as desired. No driving for 24 hours, no alcoholic beverages for 24 hours, and nothing per vagina (no tampons, douching, or intercourse) for 8 weeks. Patient to return to the clinic as soon as possible for: Temperature greater than 101F, Severe Pain, Foul discharge from incision or vagina, Excessive Bleeding (more than a period). JAKY RUIZ MD Nov 29, 2016 7:05 am
[2016-11-29 07:42] VITALS: BP 119/77
[2016-11-29] MEDS ORDERED: DOCUSATE SODIUM 100 MG (COLACE) CAP PO SCH (09:00)
[2016-11-29] MEDS ORDERED: IBUPROFEN 800 MG (MOTRIN) TAB PO SCH (12:00)
--- NOTE | 2016-11-29 12:17 | OPERATIVE REPORT ---
DATE OF SERVICE: 11/28/2016 PREOPERATIVE DIAGNOSES: Pelvic mass, dysfunctional bleeding, and pelvic pain. POSTOPERATIVE DIAGNOSES: Pelvic mass, dysfunctional bleeding and pelvic pain with large uterine fibroid with pathology pending and with exophytic mass on both ovaries and with a fleshy mass in the cul-de-sac. OPERATIVE PROCEDURE: Total laparoscopic hysterectomy with left salpingo-oophorectomy, right salpingectomy, partial right oophorectomy and removal of the fleshy mass in the cul-de-sac of Yohan. OPERATIVE DESCRIPTION: With the patient in the supine position under satisfactory general anesthesia, she was repositioned in dorsal lithotomy position in the [facility] and prepped and draped in the usual fashion for abdominal and vaginal surgery. The urinary bladder was drained via Galan catheter. A weighted speculum was placed in the posterior fornix of the vagina and the cervix was exposed and grasped anteriorly with a single-tooth tenaculum. The uterus was somewhat hypertrophic. The uterus was sounded to 10.5 cm with the uterine sound. The cervix was then serially dilated with Parmjit dilators to accommodate a LIN II manipulator, which was placed using a 6 mm x 8 cm uterine probe and a 35 mm colpotomy ring. Sutures of #1 Vicryl were placed at 3 and 9 o'clock position to affix the cervix to the manipulator. The patient was brought down to low dorsal lithotomy position. A 12 mm incision was made 5 cm superior to the umbilicus. Veress needle was placed through the incision and in to the abdominal cavity. Correct placement confirmed with a water drop test and the abdomen was insufflated with 2.4 liters of carbon dioxide. The Veress needle was removed and a 12 mm Optiview laparoscopic port placed. The patient was placed in Trendelenburg allowing the bowel to spill up out the pelvis. A 8 mm ports were placed and 9 cm lateral to the umbilicus at the level of the umbilicus. All three port sites were infiltrated with 0.25% Marcaine with epinephrine prior to incision. The patient was positioned for total laparoscopic hysterectomy and operative manipulator was attached to the ports. Operative instruments were placed in the left lateral and right lateral ports and I retired to the console. At the console using a vessel sealer on the right and a bipolar fenestrated grasper on the left, the pelvis was first examined. There was a fleshy lesion on the right ovary on the antimesenteric pole, otherwise the ovary looked normal. The patient had evidence of tubal sterilization bilaterally and had hydrosalpinges bilaterally. There was a tissue mass involving most of the left ovary. Decision was made to go ahead with left oophorectomy concurrent with the procedures. There was a fleshy mass in the cul-de-sac that was removed later. The appendix was identified. It was a normal vermiform of appendix. The procedure was initiated by raising the right fallopian tube and dividing across the mesosalpinx on the right using the vessel sealer in stepwise fashion. Once the uteroovarian pedicle and round ligament could be divided as well, they were divided and then the broad ligament was divided down the side of the uterus on to the cardinal ligament, which was divided in the same manner. Same procedure was performed on the left, although on the left, the dissection was carried on to the ovary across the mesovarium to allow for removal of the left tube and ovary with the uterus. The anterior lower uterine segment peritoneum was now exposed and divided using monopolar bilyl. Colpotomy incision was made at 12 o'clock position after dissecting the bladder well down off of the lower uterine segment and off of the cervix. The colpotomy incision was started at 12 o'clock position and continued circumferentially until the entire colpotomy ring was exposed. All blood vessels they were encountered along the way were cauterized. The colpotomy ring was eventually completely exposed and there was some difficulty. The uterus was removed through the vagina with the tubes and the left ovary still attached. The uterus was quite large, quite bulky, but pliable and did manage to pass through the vaginal canal. The lesion on the right ovary was grasped and elevated and resected from the antimesenteric border of the ovary and sent to pathology labeled separately. There was a portion of cervix obviously remaining on the left portion of the vaginal cuff. This was divided and resected free and sent to pathology labeled separately as well and then the fleshy mass within the cul-de-sac was grasped, elevated and divided free and then sent to pathology. All these tissue specimens were passed through the vagina. The vaginal cuff now closed with 3 sutures of V-Loc barbed sutures starting first from the right angle the near the mid portion, then from the left angle to the mid portion and then closed in the mid portion with the third suture. Both ureters were seen to peristalse before, during and after the step at the procedure. The pelvis was irrigated and examined for hemostasis, which was complete. With the procedure complete, no abnormal pathology, no bleeding and both ureters were seen to peristalse and procedure was terminated. The operative instruments were removed under direct vision as were the ports. The abdomen was evacuated of insufflating gas in process of the removing the ports. The patient was brought out of Trendelenburg. The skin incisions were closed with faith, the fascia at the supraumbilical incision was closed with two [id number] sutures of 2-0 Vicryl. Speculum was replaced in the vagina. The vaginal cuff was examined for complete reapproximation, which was found in complete hemostasis. The patient was left in the operating room under general anesthesia now per Dr. Mahmood, who was to perform umbilical herniorrhaphy/abdominal wall herniorrhaphy. Sponge and needle counts were correct. At this point, estimated blood loss was less than 100 mL. The patient tolerated this portion of the procedure well. Job ID: [id number] DocumentID: [id number] Dictated Date: 11/28/2016 14:08:08 Storage Receipt Poster Date: 11/29/2016 00:35:52 Dictated By: JAKY RUIZ MD
--- NOTE | 2016-11-29 12:52 | Progress Note-Standard ---
Standard Progress Note Progress Notes/Assess & Plan Date Seen by Provider: Nov 29, 2016 Time Seen by Provider: 11:40 Progress/Assessment & Plan doing well. Reports intermittent nausea. No abdominal distention. Could be discharged Final Diagnosis ventral hernia JENNA BEDOYA MD Nov 29, 2016 12:52
== END 2016-11-29 12:30 | disposition home or self-care (01) ==
LOC: SDC 10:10 → WS 17:22 → SDC 17:22 → WS 11-29 12:30 → SDC 11-29 12:30
PROVIDERS: ATTEND Obstetrics & Gynecology
DX: R10.2 Pelvic and perineal pain; N80.0 Endometriosis of uterus; F17.210 Nicotine dependence, cigarettes, uncomplicated; D25.1 Intramural leiomyoma of uterus; N92.1 Excessive and frequent menstruation with irregular cycle; N72 Inflammatory disease of cervix uteri; J45.909 Unspecified asthma, uncomplicated; B20 Human immunodeficiency virus [HIV] disease; N83.11 Corpus luteum cyst of right ovary; K43.9 Ventral hernia without obstruction or gangrene; N83.8 Other noninflammatory disorders of ovary, fallopian tube and broad ligament
CPT/HCPCS: 36415; 84703; 86850; 86900; 86901; 88305; 88307; 94664

== ENCOUNTER 2017-08-18 14:32 | Emergency (ER) | payer OTHER, MEDICAID ==
[~2017-08-18] VITALS: Ht 165.1 cm; Wt 63.5 kg
[~2017-08-18 14:32] MED LIST changes: +DOCU100C37 PO; -DRON10CA2; -DRON10CA2 PO; +DRON10CA5; +DRON10CA5 PO; +IBUP-1780 PO
--- OUTSIDE RECORDS SUMMARY | 2017-08-18 14:38 | XMS REPORT ---
Author Author Znadra Watson [facility] Address [address], [place] [id number] Care Team Providers Care Salesperson [employer] Name Role Phone Zandra Watson Unavailable PROBLEMS Type Condition ICD9-CM Code FGD19-CC Code Onset Dates Condition Status SNOMED Code Problem Bipolar affective disorder F31.9 Active 32623270 Problem group home (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 Z79.891 Active 040018495 Problem Intrinsic asthma J45.909 Active 032453070 Problem Acquired immune deficiency syndrome B20 Active 97758251 Problem Hyperglycemia R73.9 Active 72208341 Problem Dysmenorrhea N94.6 Active 064109706 Problem Nicotine dependence, cigarettes, uncomplicated F17.210 Active 98769779 Problem Localized edema R60.0 Active 634272637 Problem Dermatitis L30.9 Active 88846033 Problem Generalized anxiety disorder F41.1 Active 86651359 Problem Backache M54.9 Active 843526280 Problem GERD (gastroesophageal reflux disease) K21.9 Active 366873539 Problem Mixed hyperlipidemia E78.2 Active 771502857 Problem Migraine G43.909 Active 24492917 ALLERGIES Unknown Allergies SOCIAL HISTORY No smoking Hx information available PLAN OF CARE VITAL SIGNS MEDICATIONS Unknown Medications RESULTS No Results PROCEDURES No Known procedures IMMUNIZATIONS No Known Immunizations
--- OUTSIDE RECORDS SUMMARY | 2017-08-18 14:39 | XMS REPORT ---
Author Author Harper Snell Organization [facility] Address [address], [place] [id number] Care Team Providers Care Oceanography Professor Name Role Phone Harper Snell Unavailable PROBLEMS Type Condition ICD9-CM Code PZA97-GI Code Onset Dates Condition Status SNOMED Code Problem Bipolar affective disorder F31.9 Active 59502873 Problem Nicotine dependence, cigarettes, uncomplicated F17.210 Active 87035119 Problem nursing home (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 Z79.891 Active 113080642 Problem Non-intractable cyclical vomiting with nausea G43.A0 Active 99402347 Problem Poor appetite R63.0 Active 56965634 Problem Wheezing on auscultation R06.2 Active 353579359 Problem Acquired immune deficiency syndrome B20 Active 25186471 Problem Other chronic pain G89.29 Active 20087990 Problem Mood swings F39 Active 45642066 Problem Generalized anxiety disorder F41.1 Active 75353752 Problem GERD (gastroesophageal reflux disease) K21.9 Active 637562979 Problem Mixed hyperlipidemia E78.2 Active 989366301 Problem Intrinsic asthma J45.909 Active 060194015 Problem Migraine G43.909 Active 45546436 Problem Backache M54.9 Active 550161127 ALLERGIES No Information ENCOUNTERS Encounter Location Date Diagnosis [facility] [address] [place] [id number] Sep, [facility] [address] [place] [address] Aug, [facility] [address] [place] [address] Aug, [facility] [address] [place] [address] Aug, [facility] [address] [place] [address] July, [facility] [address] [place] [address] July, [facility] [address] [place] [address] July, [facility] [address] [place] [address] July, [facility] [address] [place] [address] July, [facility] [address] [place] [address] July, Poor appetite R63.0 and Backache M54.9 [facility] [address] [place] [address] July, [facility] [address] [place] [address] July, [facility] [address] [place] [address] July, [facility] [address] [place] [address] July, [facility] [address] [place] [address] July, [facility] [address] [place] [address] July, Nausea and vomiting R11.2 [facility] [address] [place] [address] July, [facility] [address] [place] [address] July, [facility] [address] [place] [address] July, [facility] [address] [place] [address] July, [facility] [address] [place] [address] July, [facility] [address] [place] [address] July, Other chronic pain G89.29 [facility] [address] [place] [address] July, [facility] [address] [place] [address] July, GERD (gastroesophageal reflux disease) K21.9 [facility] [address] [place] [address] July, [facility] [address] [place] [address] Jun, [facility] [address] [place] [address] Jun, [facility] [address] [place] [address] Jun, [facility] [address] [place] [address] Jun, [facility] [address] [place] [address] Jun, Other chronic pain G89.29 [facility] [address] [place] [address] Jun, [facility] [address] [place] [address] Jun, [facility] [address] [place] [address] Jun, [facility] [address] [place] [address] Jun, [facility] [address] [place] [address] Jun, [facility] [address] [place] [address] Jun, Generalized anxiety disorder F41.1 ; Other chronic pain G89.29 and Non-intractable cyclical vomiting with nausea G43.A0 [place] [facility] [address] [place] [id number] Jun, Acquired immune deficiency syndrome B20 ; 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 ; Nicotine dependence, cigarettes, uncomplicated F17.210 ; Lower respiratory infection J22 ; Poor appetite R63.0 ; Other chronic pain G89.29 ; Generalized anxiety disorder F41.1 and Need for tetanus booster Z23 [facility] [address] [place] [address] Jun, [facility] [address] [place] [address] May, Generalized abdominal pain R10.84 [facility] [address] [place] [address] May, [facility] [address] [place] [address] Apr, AIDS B20 ; Generalized abdominal pain R10.84 and Dysmenorrhea N94.6 [facility] [address] [place] [address] Apr, Acute URI J06.[address] [address] Apr, [facility] [address] [place] [address] Apr, [facility] [address] [place] [id number] Apr, Acquired immune deficiency syndrome B20 ; nursing home ( 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 Z79.891 and Migraine G43.[address] [address] Mar, Dysmenorrhea N94.[address] [address] Mar, [address] [address] Mar, Generalized anxiety disorder F41.1 and Generalized abdominal pain R10.84 [facility] [address] [place] [address] Mar, [facility] [address] [place] [address] Mar, Generalized abdominal pain R10.84 and Generalized anxiety disorder F41.1 [facility] [address] [place] [address] Feb, [address] [address] Feb, Generalized abdominal pain R10.84 [facility] [address] [place] [address] 28 Jan, 2017 Nausea and vomiting R11.2 [facility] [address] [place] [address] 18 Jan, 2017 [facility] [address] [place] [address] 16 Jan, 2017 [facility] [address] [place] [address] Jan, [facility] [address] [place] [address] Jan, [facility] [address] [place] [address] Jan, [facility] [address] [place] [address] 08 Jan, 2017 Mood swings F39 [facility] [address] [place] [address] Jan, [facility] [address] [place] [address] Jan, [facility] [address] [place] [address] Jan, [facility] [address] [place] [address] Jan, Dysmenorrhea N94.6 [facility] [address] [place] [phone] Jan, Acquired immune deficiency syndrome B20 ; Generalized abdominal pain R10.84 and Refused influenza vaccine Z28.21 [facility] [address] [place] [address] Jan, [facility] [address] [place] [address] Dec, Generalized abdominal pain R10.84 [facility] [address] [place] [address] Dec, Dysmenorrhea N94.6 [facility] [address] [place] [address] Dec, Backache M54.[address] [facility] [address] Nov, Generalized abdominal pain R10.[address] [address] Nov, Generalized anxiety disorder F41.[address] [address] Nov, Dysmenorrhea N94.[address] [address] Oct, [address] [address] Oct, [address] [address] Oct, [address] [address] Oct, Generalized abdominal pain R10.84 [facility] [address] [place] [id number] Oct, Acquired immune deficiency syndrome B20 ; 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 ; Bipolar affective disorder F31.9 ; Generalized anxiety disorder F41.1 ; Backache M54.9 ; Mixed hyperlipidemia E78.2 ; Nicotine dependence, cigarettes, uncomplicated F17.210 and Wheezing on auscultation R06.[address] [address] Oct, Oral candidiasis B37.[address] [address] Oct, [address] [address] Oct, Acute upper respiratory infection J06.[address] [address] Oct, Acute upper respiratory infection J06.[address] [address] Sep, Dysmenorrhea N94.[address] [address] Sep, Generalized anxiety disorder F41.1 [facility] [address] [place] [address] Sep, Dysmenorrhea N94.6 [facility] [address] [place] [address] Sep, [facility] [address] [place] [address] Sep, Dysmenorrhea N94.6 [facility] [address] [place] [address] Aug, Acquired immune deficiency syndrome B20 [facility] [address] [place] [address] Aug, Generalized anxiety disorder F41.1 [facility] [address] [place] [address] Aug, [facility] [address] [place] [address] Aug, [facility] [address] [place] [address] Aug, [facility] [address] [place] [address] Aug, [facility] [address] [place] [address] Aug, [facility] [address] [place] [address] Aug, [facility] [address] [place] [address] Aug, [facility] [address] [place] [address] Aug, Acute opioid withdrawal F11.23 [facility] [address] [place] [address] July, Upper respiratory infection J06.9 [facility] [address] [place] [address] July, Backache M54.9 [facility] [address] [place] [id number] July, Acquired immune deficiency syndrome B20 ; 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 ; Hyperglycemia R73.9 ; Bipolar affective disorder F31.9 ; GERD (gastroesophageal reflux disease) K21.9 ; Backache M54.9 ; Generalized anxiety disorder F41.1 ; Mixed hyperlipidemia E78.2 ; Nicotine dependence, cigarettes, uncomplicated F17.210 and Localized edema R60.[address] [address] July, [address] [address] Jun, Backache M54.[address] [address] Jun, Chronic pain G89.[address] [address] May, Backache M54.[address] [address] May, Backache M54.[address] [address] Apr, Cough R05 [place] [facility] [address] [place] [phone] Apr, Acquired immune deficiency syndrome B20 ; Screening examination for sexually transmitted disease Z11.3 ; Dermatitis L30.9 and Migraine with aura and with status migrainosus, not intractable G43.[address] [address] Apr, Backache M54.[address] [address] Mar, Intrinsic asthma J45.909 ; Nausea and vomiting R11.2 and AIDS B20 [address] [address] Mar, Backache M54.[address] [address] Feb, Chronic pain G89.[address] [address] Feb, Backache M54.9 [facility] [address] [place] [address] Jan, [place] eye, 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 [facility] [address] [place] [address] Jan, Asthma, intrinsic 493.10 [facility] [address] [place] [address] Jan, [facility] [address] [place] [address] Jan, [facility] [address] [place] [address] Jan, Backache M54.[address] [address] Dec, Chronic pain G89.29 [facility] [address] [place] [id number] Dec, AIDS B20 ; Influenza vaccine needed Z23 ; Intrinsic asthma J45.909 ; Backache M54.9 ; Generalized anxiety disorder F41.1 ; Nicotine dependence, cigarettes, uncomplicated F17.210 and Mixed hyperlipidemia E78.[address] [address] Dec, [address] [address] Dec, Dysmenorrhea N94.[address] [address] Dec, [address] [address] Dec, Depression with anxiety F41.8 and Backache M54.[address] [address] Nov, [address] [address] Nov, Other chronic pain G89.[address] [address] 18 Nov, 2015 Other chronic pain G89.[address] [place] [address] Nov, [facility] [address] [place] [address] Nov, Generalized anxiety disorder F41.1 [facility] [address] [place] [address] Nov, [facility] [address] [place] [address] Nov, [facility] [address] [place] [address] Nov, Chronic pain G89.29 [facility] [address] [place] [address] Oct, [facility] [address] [place] [address] Oct, Other chronic pain G89.29 [facility] [address] [place] [address] Oct, [facility] [address] [place] [address] Oct, [facility] [address] [place] [address] Oct, Nausea and vomiting R11.2 [facility] [address] [place] [address] Oct, Chronic pain G89.29 [facility] [address] [place] [address] Sep, [facility] [address] [place] [address] Sep, Acute upper respiratory infection, unspecified J06.9 [facility] [address] [place] [address] Sep, Upper respiratory infection J06.9 [facility] [address] [place] [address] Sep, [facility] [address] [place] [address] Sep, [facility] [address] [place] [address] Sep, Other chronic pain G89.29 [facility] [address] [facility] [place] [phone] Sep, AIDS B20 ; nursing home (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 Z79.891 ; Smoking F17.200 ; Mixed hyperlipidemia E78.2 ; Chronic pain G89.29 and Edema R60.9 [facility] [address] [place] [address] Sep, [facility] [address] [place] [address] Sep, [facility] [address] [place] [address] Aug, [facility] [address] [place] [address] Aug, Other chronic pain G89.[address] [address] Aug, Generalized anxiety disorder F41.[address] [address] July, Other chronic pain G89.29 [facility] [address] [place] [address] July, Other chronic pain G89.[address] [address] July, [facility] [address] [place] [address] Jun, Generalized anxiety disorder F41.1 [facility] [address] [place] [address] Jun, [facility] [address] [place] [address] Jun, Other chronic pain G89.29 [facility] [address] [place] [address] Jun, Rash and other nonspecific skin eruption R21 [facility] [address] [place] [address] Jun, [facility] [address] [place] [address] Jun, [facility] [address] [place] [address] Jun, [facility] [address] [place] [address] Jun, [facility] [address] [place] [address] Jun, [facility] [address] [place] [address] Jun, [facility] [address] [place] [address] Jun, [facility] [address] [place] [address] Jun, Other chronic pain G89.29 [facility] [address] [place] [address] Jun, [facility] [address] [place] [address] Jun, [facility] [address] [place] [address] Jun, [facility] [address] [place] [address] Jun, [facility] [address] [place] [address] Jun, [facility] [address] [place] [address] Jun, [facility] [address] [place] [address] Jun, [facility] [address] [place] [address] Jun, [facility] [address] [place] [address] Jun, [facility] [address] [place] [address] Jun, Nausea and vomiting R11.2 [facility] [address] [place] [address] May, [facility] [address] [place] [address] May, Rash and other nonspecific skin eruption R21 [facility] [address] [place] [address] May, [facility] [address] [place] [address] May, [facility] [address] [place] [address] May, [facility] [address] [place] [address] May, [facility] [address] [place] [address] May, [facility] [address] [place] [id number] May, Acquired immune deficiency syndrome B20 ; Screening examination for sexually transmitted disease Z11.3 ; Depression with anxiety F41.8 ; Other chronic pain G89.29 and Dermatitis L30.9 [facility] [address] [place] [address] May, [facility] [address] [place] [address] May, [facility] [address] [place] [address] May, [facility] [address] [place] [address] May, Backache M54.9 [facility] [address] [place] [address] May, Rash and other nonspecific skin eruption R21 [facility] [address] [place] [address] Apr, [facility] [address] [place] [address] Apr, [facility] [address] [place] [address] Apr, Other chronic pain G89.29 [facility] [address] [place] [address] Apr, [facility] [address] [place] [address] Apr, [facility] [address] [place] [address] Apr, [facility] [address] [place] [address] Apr, [facility] [address] [place] [address] Apr, [facility] [address] [place] [address] Apr, [facility] [address] [place] [address] Apr, [facility] [address] [place] [address] Apr, [facility] [address] [place] [address] Apr, [facility] [address] [place] [address] Apr, [facility] [address] [place] [address] Apr, Other chronic pain G89.29 ; Generalized anxiety disorder F41.1 ; Nausea R11.0 and AIDS B20 [facility] [address] [place] [address] Apr, [facility] [address] [place] [address] Apr, Generalized anxiety disorder F41.1 [facility] [address] [place] [address] Apr, [facility] [address] [place] [address] Apr, Other chronic pain G89.29 [facility] [address] [place] [address] Mar, [facility] [address] [place] [id number] Mar, 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 ; Bipolar affective disorder F31.9 ; Smoking F17.200 ; Generalized anxiety disorder F41.1 ; Influenza vaccine administered Z23 and AIDS B20 [facility] [address] [place] [address] Mar, Other chronic pain G89.29 [facility] [address] [place] [address] Mar, Generalized anxiety disorder F41.[address] [address] Mar, [facility] [address] [place] [address] Mar, Asymptomatic HIV infection Z21 [address] [address] Mar, Other chronic pain G89.[address] [address] Feb, [address] [address] Feb, [facility] [address] [place] [address] Feb, [facility] [address] [place] [address] Feb, [address] [address] Feb, [address] [address] Jan, Other chronic pain G89.29 and Nausea & vomiting R11.[address] [address] Jan, Other chronic pain G89.29 [facility] [address] [place] [address] Dec, [facility] [address] [place] [address] Dec, Other chronic pain G89.29 ; Asymptomatic HIV infection Z21 ; Intrinsic asthma J45.909 ; Bipolar affective disorder F31.9 ; Noncompliance Z91.19 ; Migraine G43.909 ; Tobacco use disorder Z72.0 ; GERD (gastroesophageal reflux disease) K21.9 ; Backache M54.9 and Generalized anxiety disorder F41.1 [facility] [address] [place] [address] Nov, [facility] [address] [place] [address] Nov, [facility] [address] [place] [address] Oct, Other chronic pain 338.[address] [address] Oct, [address] [address] Oct, Unspecified backache 724.5 and Dysphagia 787.[address] [address] Sep, Other chronic pain 338.[address] [address] Sep, [address] [address] Aug, URI (upper respiratory infection) 465.9 and Diarrhea 787.[address] [address] Aug, [address] [address] Aug, Other chronic pain 338.[address] [address] Aug, Other chronic pain 338.29 and Generalized anxiety disorder 300.[address] [address] Aug, [facility] [address] [place] [address] July, Other chronic pain 338.29 [facility] [address] [place] [id number] July, Nondependent tobacco use disorder 305.1 ; Unspecified backache 724.5 ; Other chronic pain 338.29 ; Abdominal pain, unspecified site 789.00 ; nursing home (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 V58.69 and Acquired immune deficiency syndrome 042 [facility] [address] [place] [address] July, Other chronic pain 338.29 [facility] [address] [place] [address] Jun, Other chronic pain 338.29 [facility] [address] [place] [address] Jun, [facility] [address] [place] [address] Jun, Other chronic pain 338.29 [facility] [address] [place] [address] Jun, URI (upper respiratory infection) 465.9 [facility] [address] [place] [address] Jun, Generalized anxiety disorder 300.02 and Seasonal allergies 477.[address] [address] Jun, Generalized anxiety disorder 300.02 [facility] [address] [place] [address] May, Other chronic pain 338.29 [facility] [address] [place] [address] May, Other chronic pain 338.29 and Generalized anxiety disorder 300.02 [facility] [address] [place] [address] Apr, Asthma, intrinsic 493.10 and Acute upper respiratory infections of other multiple sites 465.8 [facility] [address] [place] [address] Apr, [facility] [address] [facility] [address] [place], [place] [phone] Apr, Depressive disorder 311 [facility] [address] [place] [address] Apr, Other chronic pain 338.29 [facility] [address] [place] [address] Apr, [facility] [address] Apr, Other chronic pain 338.[address] [address] 14 Mar, 2014 Acute upper respiratory infections of unspecified site 465.9 [facility] [address] [place] [phone] Mar, Migraine 346.90 ; Nondependent tobacco use disorder 305.1 ; Esophageal reflux 530.81 ; Unspecified backache 724.5 ; Abdominal pain, generalized 789.07 ; Flatulence, eructation, and gas pain 787.3 ; Asymptomatic human immunodeficiency virus (HIV) infection status V08 ; Dyspepsia and other specified disorders of function of stomach 536.8 ; Nausea alone 787.02 and Asthma 493.[address] [address] Mar, Other chronic pain 338.[address] [address] Feb, Other chronic pain 338.29 and Generalized anxiety disorder 300.[address] [address] Feb, Abdominal pain, generalized 789.[address] [address] Jan, Abdominal pain, generalized 789.07 [facility] [address] [place] [phone] Dec, [address] [address] Dec, [address] [address] Dec, Unspecified backache 724.[address] [address] Dec, [address] [address] Nov, [facility] [address] [facility] [address] [place], [place] [phone] Nov, [facility] [address] [facility] [phone] Nov, Bipolar disorder, unspecified 296.80 ; Abdominal pain, generalized 789.07 ; Generalized anxiety disorder 300.02 ; Nausea alone 787.02 ; Flu vaccine need V04.81 and Human immunodeficiency virus (HIV) disease 042 [facility] [address] [place] [facility] [place] [address] Nov, [facility] [place] [facility] [address] [facility] [address] [place] [phone] Oct, [facility] [place] [facility] [address] [facility] [address] [place] [phone] Oct, [facility] [address] [facility] [address] [place] [phone] Aug, [facility] [address] [place] [facility] [place] [address] Jun, [facility] [address] [place] [facility] [place] [address] Mar, [facility] [address] [place] [facility] [place] [address] Oct, [facility] [address] [place] [facility] [place] [address] July, [facility] [address] [place] [address] Jun, [facility] [address] [place] [address] May, [facility] [address] [place] [facility] [place] [address] Mar, [facility] [address] [place] [facility] [place] [address] Feb, [facility] [address] [place] [facility] [place] [address] Nov, [facility] [address] [place] [address] Oct, [facility] [address] [place] [address] Aug, [facility] [address] [place] [address] May, [facility] [address] [place] [address] Mar, IMMUNIZATIONS No Known Immunizations SOCIAL HISTORY Never Assessed REASON FOR VISIT hey PLAN OF CARE VITAL SIGNS MEDICATIONS Unknown Medications RESULTS No Results PROCEDURES No Known procedures INSTRUCTIONS MEDICATIONS ADMINISTERED No Known Medications MEDICAL (GENERAL) HISTORY Type Description Date Medical History Asymptomatic HIV infection ; Medical History H/O noncompliance with medical treatment, presenting hazards to health , (Desc:Personal history of noncompliance with medical treatment, presenting hazards to health) ; Medical History Bipolar disorder, unspecified (296.80) ; Medical History Nondependent tobacco use disorder , (Desc:Tobacco use disorder ) ; Medical History Intrinsic asthma, unspecified (493.10) ; Medical History Abdominal bloating ; Medical History Abdominal pain, chronic, generalized ; Medical History Asthma Medical History Nausea alone Medical History Sebaceous cyst (Inactive) Medical History Acute upper respiratory infections of unspecified site ( Inactive) Medical History Flatulence, eructation, and gas pain Medical History Abdominal pain, generalized Medical History Dyspepsia and other specified disorders of function of stomach Medical History Asymptomatic human immunodeficiency virus (HIV) infection status Medical History Asymptomatic human immunodeficiency virus (HIV) infection status Medical History Asthma, intrinsic Medical History Bipolar disorder, unspecified Medical History Noncompliance Medical History Migraine Medical History Nondependent tobacco use disorder Medical History Esophageal reflux Medical History Unspecified backache Medical History Other chronic pain Medical History Generalized anxiety disorder Surgical History Tubal Ligation 2004 Surgical History Hysterectomy & umbilicus hernia repair 11/28/16 Surgical History Cholecystectomy 2010
--- OUTSIDE RECORDS SUMMARY | 2017-08-18 14:40 | XMS REPORT ---
Author Dulce Clark [facility] Address [address] [place], [place] [id number] Care Team Providers Care Strap Machine Operator Name Role Phone Dulce Olvera Unavailable PROBLEMS Type Condition ICD9-CM Code [id number] Code Onset Dates Condition Status SNOMED Code Problem GERD (gastroesophageal reflux disease) K21.9 Active 920372763 Problem Backache M54.9 Active 869690843 Problem Intrinsic asthma J45.909 Active 780972909 Problem Mixed hyperlipidemia E78.2 Active 853005219 Problem Migraine G43.909 Active 35163247 Problem Generalized anxiety disorder F41.1 Active 36653694 Problem Mood swings F39 Active 89146794 Problem Wheezing on auscultation R06.2 Active 746349528 Problem halfway (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 Z79.891 Active 667535497 Problem Bipolar affective disorder F31.9 Active 30439082 Problem Acquired immune deficiency syndrome B20 Active 17633365 Problem Nicotine dependence, cigarettes, uncomplicated F17.210 Active 59406939 ALLERGIES Substance Reaction Event Type Date Status Gabapentin *anticonvulsants* ; pt states it gives her body tremors Non Drug Allergy Apr, Active SOCIAL HISTORY Never Assessed PLAN OF CARE Activity Details Follow Up 3 Months Reason: Pending Test QMP Plus D/L (urine) Pending Test Opioid/Opiate Agreement (Annual) VITAL SIGNS Height 65 in 2017-04-17 Weight 135 lbs 2017-04-17 Temperature 97.3 degrees Fahrenheit 2017-04-17 Heart Rate 84 /min 2017-04-17 Respiratory Rate 16 /min 2017-04-17 Oximetry 98 % 2017-04-17 BMI 22.46 kg/m2 2017-04-17 Blood pressure systolic 124 mm Hg 2017-04-17 Blood pressure diastolic 82 mm Hg 2017-04-17 MEDICATIONS Medication Instructions Dosage Frequency Start Date End Date Duration Status Dapsone 100 MG Orally Once a day 1 tablet 24h Apr, 30 days Active Hydrocodone-Acetaminophen 10-325 MG Orally every 6 hrs 1 tablet as needed 6h Oct, 30 days Active Clonidine HCl 0.1 MG Orally every 4 hrs 1 tablet as needed do not take is BP is <100/60 4h Aug, Active Dicyclomine HCl 20 MG Orally three times a day 1 tablet 8h 12 Jul, 2016 30 day(s) Active Azithromycin 250 MG Orally Once a day 1 tab 24h 20 Mar, 2016 30 days Active Stribild [phone] MG Orally Once a day 1 tablet 24h 30 Aug, 2016 30 days Active Methocarbamol 750 TAKE ONE TABLET BY MOUTH EVERY 8 HOURS FOR 10 DAYS 10 Active Zofran 8 mg TAKE ONE TABLET BY MOUTH EVERY 8 HOURS FOR 10 DAYS 10 Active HydrOXYzine HCl 25 MG Orally every 12 hrs 1 tablet 12h Jan, 30 day(s) Active Hydrochlorothiazide 25 MG Orally Once a day 1 tablet in the morning 24h July, 30 day(s) Active Ventolin HFA 108 (90 Base) MCG/ACT Inhalation every 4 hrs 2 puffs as needed 4h Oct, 30 days Active Diflucan 150 Orally Once a day 1 tablet 24h 5 Active [facility] Omeprazole 20 MG Orally Once a day 1 tablet 24h 29 Mar, 2015 30 day (s) Active Methocarbamol 750 MG Orally every 8 hrs 1 tablet 8h 18 Dec, 2015 10 days Active ProAir HFA 108 (90 Base) MCG/ACT Inhalation every 4 hrs 2 puffs as needed 4h Sep, 30 days Active Promethazine HCl 25 MG Orally three times a day 1 tablet as needed 8h 20 Mar, 2016 30 day(s) Active Marinol 10 MG Orally Twice a day 1 capsule before lunch and supper 12h Jun, 30 days Active Xanax 1 MG Orally Twice a day 1 tablet as needed 12h Sep, 30 days Active Tramadol HCl 50 MG Orally every 6 hrs 2 tablet as needed 6h Sep, 15 days Active Ciprofloxacin HCl 0.3 % Ophthalmic every 4 hrs 1 drop into affected ear while awake 4h 5 day(s) Active RESULTS No Results PROCEDURES Procedure Date Ordered Result Body Site INJ KETOROLAC TROMETHAMINE 15 MG Apr 17, 2017 THER/PROPH/DIAG INJ, SC/IM Apr 17, 2017 Billed by outside source Apr 17, 2017 PROMETHAZINE HCL UP TO 50MG Apr 17, 2017 IMMUNIZATIONS Vaccine Route Administration Date Status Ketorolac Tromethamine IM Intramuscular Apr 17, 2017 Administered PROMETHAZINE HCL UP TO 50MG IM Intramuscular Apr 17, 2017 Administered MEDICAL (GENERAL) HISTORY Type Description Date Medical [...]
--- OUTSIDE RECORDS SUMMARY | 2017-08-18 14:40 | XMS REPORT ---
Author Author Salome Solis [facility] Address [address] [place], [place] [id number] Care Team Providers Care Inventory Representative Name Role Phone Salome Solis Unavailable PROBLEMS Type Condition ICD9-CM Code [id number] Code Onset Dates Condition Status SNOMED Code Problem Backache M54.9 Active 798882431 Problem Migraine G43.909 Active 75835355 Problem GERD (gastroesophageal reflux disease) K21.9 Active 018827944 Problem Mixed hyperlipidemia E78.2 Active 798013047 Problem Generalized anxiety disorder F41.1 Active 64162279 Problem Wheezing on auscultation R06.2 Active 368670586 Problem Acquired immune deficiency syndrome B20 Active 89970201 Problem Intrinsic asthma J45.909 Active 300264075 Problem Bipolar affective disorder F31.9 Active 43154529 Problem Nicotine dependence, cigarettes, uncomplicated F17.210 Active 86707000 Problem correction (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 Z79.891 Active 090640458 ALLERGIES Unknown Allergies SOCIAL HISTORY No smoking Hx information available PLAN OF CARE VITAL SIGNS MEDICATIONS Medication Instructions Dosage Frequency Start Date End Date Duration Status Promethazine HCl 25 MG Orally three times a day 1 tablet as needed 8h Mar, 30 day(s) Active Azithromycin 250 MG Orally Once a day 1 tab 24h Mar, 30 days Active Methocarbamol 750 MG Orally every 8 hrs 1 tablet 8h Dec, 10 days Active ProAir HFA 108 (90 Base) MCG/ACT Inhalation every 4 hrs 2 puffs as needed 4h Sep, 30 days Active Zofran 8 TAKE ONE TABLET BY MOUTH EVERY 8 HOURS FOR 10 DAYS 10 Active [facility] Omeprazole 20 MG Orally Once a day 1 tablet 24h Mar, 30 day (s) Active Ventolin HFA 108 (90 Base) MCG/ACT Inhalation every 4 hrs 2 puffs as needed 4h Oct, 30 days Active Dicyclomine HCl 20 MG Orally three times a day 1 tablet 8h July, 30 day(s) Active Clonidine HCl 0.1 MG Orally every 4 hrs 1 tablet as needed do not take is BP is <100/60 4h Aug, Active Hydrochlorothiazide 25 MG Orally Once a day 1 tablet in the morning 24h July, 30 day(s) Active Hydrocodone-Acetaminophen 10-325 MG Orally every 6 hrs 1 tablet as needed 6h Oct, Nov, 30 days Active Marinol 10 MG Orally Twice a day 1 capsule before lunch and supper 12h Jun, 30 days Active Dapsone 100 MG Orally Once a day 1 tablet 24h Apr, 30 days Active Stribild [phone] MG Orally Once a day 1 tablet 24h Aug, 30 days Active Tramadol HCl 50 MG Orally every 6 hrs 2 tablet as needed 6h Sep, Oct, 15 days Active RESULTS No Results PROCEDURES No Known procedures IMMUNIZATIONS No Known Immunizations
--- OUTSIDE RECORDS SUMMARY | 2017-08-18 14:40 | XMS REPORT ---
Author Author Salome Solis [facility] Address [address] [place], [place] [id number] Care Team Providers Care Data Capture Clerk Name Role Phone Salome Solis Unavailable PROBLEMS Type Condition ICD9-CM Code [id number] Code Onset Dates Condition Status SNOMED Code Problem Backache M54.9 Active 322623265 Problem Migraine G43.909 Active 25997756 Problem GERD (gastroesophageal reflux disease) K21.9 Active 857810856 Problem Mixed hyperlipidemia E78.2 Active 241643152 Problem Generalized anxiety disorder F41.1 Active 92096570 Problem Wheezing on auscultation R06.2 Active 432696982 Problem Acquired immune deficiency syndrome B20 Active 97514182 Problem Intrinsic asthma J45.909 Active 088088119 Problem Bipolar affective disorder F31.9 Active 39650668 Problem Nicotine dependence, cigarettes, uncomplicated F17.210 Active 33928209 Problem senior living (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 Z79.891 Active 736065071 ALLERGIES Unknown Allergies SOCIAL HISTORY No smoking Hx information available PLAN OF CARE VITAL SIGNS MEDICATIONS Medication Instructions Dosage Frequency Start Date End Date Duration Status Methocarbamol 750 MG Orally every 8 hrs 1 tablet 8h 18 Dec, 2015 10 days Active Dapsone 100 MG Orally Once a day 1 tablet 24h Apr, 30 days Active Hydrocodone-Acetaminophen 10-325 MG Orally every 6 hrs 1 tablet as needed 6h Oct, Nov, 30 days Active Marinol 10 MG Orally Twice a day 1 capsule before lunch and supper 12h Jun, 30 days Active Azithromycin 250 MG Orally Once a day 1 tab 24h Mar, 30 days Active Hydrochlorothiazide 25 MG Orally Once a day 1 tablet in the morning 24h July, 30 day(s) Active Dicyclomine HCl 20 MG Orally three times a day 1 tablet 8h July, 30 day(s) Active Zofran 8 TAKE ONE TABLET BY MOUTH EVERY 8 HOURS FOR 10 DAYS 10 Active ProAir HFA 108 (90 Base) MCG/ACT Inhalation every 4 hrs 2 puffs as needed 4h Sep, 30 days Active Promethazine HCl 25 MG Orally three times a day 1 tablet as needed 8h Mar, 30 day(s) Active Ventolin HFA 108 (90 Base) MCG/ACT Inhalation every 4 hrs 2 puffs as needed 4h Oct, 30 days Active [facility] Omeprazole 20 MG Orally Once a day 1 tablet 24h Mar, 30 day (s) Active Tramadol HCl 50 MG Orally every 6 hrs 2 tablet as needed 6h Sep, Dec, 15 days Active Clonidine HCl 0.1 MG Orally every 4 hrs 1 tablet as needed do not take is BP is <100/60 4h Aug, Active Stribild [phone] MG Orally Once a day 1 tablet 24h Aug, 30 days Active RESULTS No Results PROCEDURES No Known procedures IMMUNIZATIONS No Known Immunizations
--- OUTSIDE RECORDS SUMMARY | 2017-08-18 14:40 | XMS REPORT ---
Author Author Salome Solis [facility] Address [address] [place], [place] [id number] Care Team Providers Care Timber Selector Name Role Phone Salome Solis Unavailable PROBLEMS Type Condition ICD9-CM Code [id number] Code Onset Dates Condition Status SNOMED Code Problem Generalized anxiety disorder F41.1 Active 78322582 Problem Intrinsic asthma J45.909 Active 705712781 Problem GERD (gastroesophageal reflux disease) K21.9 Active 372617254 Problem Mixed hyperlipidemia E78.2 Active 072160304 Problem Migraine G43.909 Active 46935324 Problem Wheezing on auscultation R06.2 Active 156767564 Problem Acquired immune deficiency syndrome B20 Active 55260059 Problem Bipolar affective disorder F31.9 Active 56241013 Problem Backache M54.9 Active 223665721 Problem Nicotine dependence, cigarettes, uncomplicated F17.210 Active 46097782 Problem intermediate accountant (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 Z79.891 Active 839013032 ALLERGIES No Information SOCIAL HISTORY Never Assessed PLAN OF CARE VITAL SIGNS MEDICATIONS Unknown Medications RESULTS No Results PROCEDURES No Known procedures IMMUNIZATIONS No Known Immunizations MEDICAL (GENERAL) HISTORY Type Description Date Medical [...]
--- OUTSIDE RECORDS SUMMARY | 2017-08-18 14:41 | XMS REPORT ---
Author Author Dulce Olvera [facility] Address [address] [place], [place] [id number] Care Team Providers Care [employer] Maker Name Role Phone Dulce Olvera Unavailable PROBLEMS Type Condition ICD9-CM Code KBI49-[id number] Code Onset Dates Condition Status SNOMED Code Problem Bipolar affective disorder F31.9 Active 01843564 Problem Nicotine dependence, cigarettes, uncomplicated F17.210 Active 74895296 Problem [facility] (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 Z79.891 Active 085436865 Problem Non-intractable cyclical vomiting with nausea G43.A0 Active 06875701 Problem Poor appetite R63.0 Active 56673899 Problem Wheezing on auscultation R06.2 Active 584280531 Problem Acquired immune deficiency syndrome B20 Active 95021328 Problem Other chronic pain G89.29 Active 06727590 Problem Mood swings F39 Active 20249687 Problem Generalized anxiety disorder F41.1 Active 08424435 Problem GERD (gastroesophageal reflux disease) K21.9 Active 155761235 Problem Mixed hyperlipidemia E78.2 Active 688691286 Problem Intrinsic asthma J45.909 Active 692137322 Problem Migraine G43.909 Active 85693608 Problem Backache M54.9 Active 982259242 ALLERGIES No Information ENCOUNTERS Encounter Location Date Diagnosis [facility] [address] [place] [id number] Sep, [facility] [address] [place] [address] Jun, Generalized anxiety disorder F41.1 ; Other chronic pain G89.29 and Non-intractable cyclical vomiting with nausea G43.A0 [facility] [address] [place] [id number] Jun, Acquired immune deficiency syndrome B20 ; [facility] ( 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 Z79.891 ; Nicotine dependence, cigarettes, uncomplicated F17.210 ; Lower respiratory infection J22 ; Poor appetite R63.0 ; Other chronic pain G89.29 ; Generalized anxiety disorder F41.1 and Need for tetanus booster Z23 [address] [address] Jun, [address] [address] May, Generalized abdominal pain R10.[address] [address] May, [address] [address] Apr, AIDS B20 ; Generalized abdominal pain R10.84 and Dysmenorrhea N94.[address] [address] Apr, Acute URI J06.[address] [address] Apr, [address] [address] Apr, [facility] [address] [place] [id number] Apr, Acquired immune deficiency syndrome B20 ; [facility] ( 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 Z79.891 and Migraine G43.[address] [address] Mar, Dysmenorrhea N94.[address] [address] Mar, [address] [address] Mar, Generalized anxiety disorder F41.1 and Generalized abdominal pain R10.[address] [address] Mar, [address] [address] Mar, Generalized abdominal pain R10.84 and Generalized anxiety disorder F41.[address] [address] Feb, [facility] [address] [place] [address] Feb, Generalized abdominal pain R10.84 [facility] [address] [place] [address] Jan, Nausea and vomiting R11.2 [facility] [address] [place] [address] Jan, [facility] [address] [place] [address] Jan, [facility] [address] [place] [address] Jan, [facility] [address] [place] [address] Jan, [facility] [address] [place] [address] Jan, [facility] [address] [place] [address] Jan, Mood swings F39 [facility] [address] [place] [address] Jan, [facility] [address] [place] [address] Jan, [facility] [address] [place] [address] Jan, [facility] [address] [place] [address] Jan, Dysmenorrhea N94.6 [facility] [address] [place] [phone] Jan, Acquired immune deficiency syndrome B20 ; Generalized abdominal pain R10.84 and Refused influenza vaccine Z28.21 [facility] [address] [place] [address] Jan, [facility] [address] [place] [address] Dec, Generalized abdominal pain R10.84 [facility] [address] [place] [address] Dec, Dysmenorrhea N94.6 [facility] [address] [place] [address] Dec, Backache M54.9 [facility] [address] [place] [address] Nov, Generalized abdominal pain R10.84 [facility] [address] [place] [address] Nov, Generalized anxiety disorder F41.1 [facility] [address] [place] [address] Nov, Dysmenorrhea N94.6 [facility] [address] [place] [address] Oct, [facility] [address] [place] [address] Oct, [facility] [address] [place] [address] Oct, [facility] [address] [place] [address] Oct, Generalized abdominal pain R10.84 [facility] [address] [place] [phone] Oct, Acquired immune deficiency syndrome B20 ; [facility] 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 Z79.891 ; Bipolar affective disorder F31.9 ; Generalized anxiety disorder F41.1 ; Backache M54.9 ; Mixed hyperlipidemia E78.2 ; Nicotine dependence, cigarettes, uncomplicated F17.210 and Wheezing on auscultation R06.2 [facility] [address] [place] [address] Oct, Oral candidiasis B37.[address] [address] Oct, [facility] [address] [place] [address] Oct, Acute upper respiratory infection J06.[address] [address] Oct, Acute upper respiratory infection J06.[address] [address] Sep, Dysmenorrhea N94.6 [facility] [address] [place] [facility] [place] [address] Sep, Generalized anxiety disorder F41.1 [facility] [address] [place] [address] Sep, Dysmenorrhea N94.6 [facility] [address] [place] [address] Sep, [facility] [address] [place] [address] Sep, Dysmenorrhea N94.6 [facility] [address] [place] [address] Aug, Acquired immune deficiency syndrome B20 [facility] [address] [place] [address] Aug, Generalized anxiety disorder F41.1 [facility] [address] [place] [address] Aug, [facility] [address] [place] [address] Aug, [facility] [address] [place] [address] Aug, [facility] [address] [place] [address] Aug, [facility] [address] [place] [address] Aug, [facility] [address] [place] [address] Aug, [facility] [address] [place] [address] Aug, [facility] [address] [place] [address] Aug, Acute opioid withdrawal F11.23 [facility] [address] [place] [address] July, Upper respiratory infection J06.9 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 ; Hyperglycemia R73.9 ; Bipolar affective disorder F31.9 ; GERD (gastroesophageal reflux disease) K21.9 ; Backache M54.9 ; Generalized anxiety disorder F41.1 ; Mixed hyperlipidemia E78.2 ; Nicotine dependence, cigarettes, uncomplicated F17.210 and Localized edema R60.[address] [address] July, [address] [address] Jun, Backache M54.[address] [address] Jun, Chronic pain G89.[address] [address] May, Backache M54.[address] [address] May, Backache M54.[address] [address] Apr, Cough R05 [address] [phone] [id number] Apr, 2016 Acquired immune deficiency syndrome B20 ; Screening examination for sexually transmitted disease Z11.3 ; Dermatitis L30.9 and Migraine with aura and with status migrainosus, not intractable G43.[address] [address] Apr, Backache M54.[address] [address] Mar, Intrinsic asthma J45.909 ; Nausea and vomiting R11.2 and AIDS B20 [address] [address] Mar, Backache M54.[address] [address] Feb, Chronic pain G89.29 [facility] [address] [place] [address] Feb, Backache M54.[address] [address] Jan, [place] [facility], 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 [address] Jan, Asthma, intrinsic 493.[address] [address] Jan, [address] [address] Jan, [address] [address] Jan, Backache M54.[address] [address] Dec, Chronic pain G89.29 [facility] [address] [place] [id number] Dec, AIDS B20 ; Influenza vaccine needed Z23 ; Intrinsic asthma J45.909 ; Backache M54.9 ; Generalized anxiety disorder F41.1 ; Nicotine dependence, cigarettes, uncomplicated F17.210 and Mixed hyperlipidemia E78.[address] [address] Dec, [address] [address] Dec, Dysmenorrhea N94.[address] [address] Dec, [address] [address] Dec, Depression with anxiety F41.8 and Backache M54.[address] [address] Nov, [address] [address] Nov, Other chronic pain G89.29 [facility] [address] [place] [address] Nov, Other chronic pain G89.29 [facility] [address] [place] [address] Nov, [facility] [address] [place] [address] Nov, Generalized anxiety disorder F41.1 [facility] [address] [place] [address] Nov, [facility] [address] [place] [address] Nov, [facility] [address] [place] [address] Nov, Chronic pain G89.29 [facility] [address] [place] [address] Oct, [facility] [address] [place] [address] Oct, Other chronic pain G89.29 [facility] [address] [place] [address] Oct, [facility] [address] [place] [address] Oct, [facility] [address] [place] [address] Oct, Nausea and vomiting R11.2 [facility] [address] [place] [address] Oct, Chronic pain G89.29 [facility] [address] [place] [address] Sep, [facility] [address] [place] [address] Sep, Acute upper respiratory infection, unspecified J06.9 [facility] [address] [place] [address] Sep, Upper respiratory infection J06.9 [facility] [address] [place] [address] Sep, [facility] [address] [place] [address] Sep, [facility] [address] [place] [address] Sep, Other chronic pain G89.29 [facility] [address] [facility] [place] [id number] Sep, AIDS B20 ; 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 [address] [place] [address] Sep, [facility] [address] [place] [address] Sep, [facility] [address] [place] [address] Aug, [facility] [address] [place] [address] Aug, Other chronic pain G89.29 [facility] [address] [place] [address] Aug, Generalized anxiety disorder F41.[address] [facility] [address] [place] [address] July, Other chronic pain G89.29 [facility] [address] [place] [address] July, Other chronic pain G89.29 [facility] [address] [place] [address] July, [facility] [address] [place] [address] Jun, Generalized anxiety disorder F41.[address] [facility] [address] [place] [address] Jun, [facility] [address] [place] [address] Jun, Other chronic pain G89.29 [facility] [address] [place] [address] Jun, Rash and other nonspecific skin eruption R21 [facility] [address] [place] [address] [place] [address] Jun, [facility] [address] [place] [facility] [place] [address] Jun, [facility] [address] [place] [facility] [place] [address] Jun, [facility] [address] [place] [facility] [place] [address] Jun, [facility] [address] [place] [facility] [place] [address] Jun, [facility] [address] [place] [facility] [place] [address] Jun, [facility] [address] [place] [facility] [place] [address] Jun, [facility] [address] [place] [facility] [place] [address] Jun, Other chronic pain G89.29 [facility] [address] [place] [facility] [place] [address] Jun, [facility] [address] [place] [facility] [place] [address] Jun, [facility] [address] [place] [facility] [place] [address] Jun, [facility] [address] [place] [facility] [place] [address] Jun, [facility] [address] [place] [facility] [place] [address] Jun, [facility] [address] [place] [facility] [place] [address] Jun, [facility] [address] [place] [facility] [place] [address] Jun, [facility] [address] [place] [facility] [place] [address] Jun, [facility] [address] [place] [facility] [place] [address] Jun, [facility] [address] [place] [facility] [place] [address] Jun, Nausea and vomiting R11.2 [facility] [address] [place] [facility] [place] [address] May, [facility] [address] [place] [address] May, Rash and other nonspecific skin eruption R21 [facility] [address] [place] [facility] [place] [address] May, [facility] [address] [place] [address] May, [facility] [address] [place] [facility] [place] [address] May, [facility] [address] [place] [address] May, [facility] [address] [place] [address] May, [facility] [address] [place] [phone] [phone] May, 2015 Acquired immune deficiency syndrome B20 ; Screening examination for sexually transmitted disease Z11.3 ; Depression with anxiety F41.8 ; Other chronic pain G89.29 and Dermatitis L30.9 [facility] [address] [place] [address] May, [facility] [address] [place] [address] May, [facility] [address] [place] [address] May, [facility] [address] [place] [address] May, Backache M54.9 [facility] [address] [place] [address] 04 May, 2015 Rash and other nonspecific skin eruption R21 [facility] [address] [place] [address] Apr, [facility] [address] [place] [address] Apr, [facility] [address] [place] [address] Apr, Other chronic pain G89.29 [facility] [address] [place] [address] Apr, [facility] [address] [place] [facility] [place] [address] Apr, [facility] [address] [place] [facility] [place] [address] Apr, [facility] [address] [place] [address] Apr, [facility] [address] [place] [address] Apr, [facility] [address] [place] [address] Apr, [facility] [address] [place] [facility] [place] [address] Apr, [facility] [address] [place] [facility] [place] [address] Apr, [facility] [address] [place] [address] Apr, [facility] [address] [place] [facility] [place] [address] Apr, [facility] [address] [place] [facility] [place] [address] Apr, Other chronic pain G89.29 ; Generalized anxiety disorder F41.1 ; Nausea R11.0 and AIDS B20 [facility] [address] [place] [address] Apr, [facility] [address] [place] [address] Apr, Generalized anxiety disorder F41.1 [facility] [address] [place] [address] Apr, [facility] [address] [place] [address] Apr, Other chronic pain G89.29 [facility] [address] [place] [facility] [place] [address] Mar, [facility] [address] [place] [id number] Mar, 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 ; Bipolar affective disorder F31.9 ; Smoking F17.200 ; Generalized anxiety disorder F41.1 ; Influenza vaccine administered Z23 and AIDS B20 [facility] [address] [place] [address] Mar, Other chronic pain G89.29 [facility] [address] [place] [address] Mar, Generalized anxiety disorder F41.1 [facility] [address] [place] [address] Mar, [facility] [address] [place] [address] Mar, Asymptomatic HIV infection Z21 [facility] [address] [place] [address] Mar, Other chronic pain G89.29 [facility] [address] [place] [address] Feb, [facility] [address] [place] [address] Feb, [facility] [address] [place] [address] Feb, [facility] [address] [place] [address] Feb, [facility] [address] [place] [address] Feb, [facility] [address] [place] [address] Jan, Other chronic pain G89.29 and Nausea & vomiting R11.2 [facility] [address] [place] [address] Jan, Other chronic pain G89.29 [facility] [address] [place] [address] Dec, [facility] [address] [place] [address] Dec, Other chronic pain G89.29 ; Asymptomatic HIV infection Z21 ; Intrinsic asthma J45.909 ; Bipolar affective disorder F31.9 ; Noncompliance Z91.19 ; Migraine G43.909 ; Tobacco use disorder Z72.0 ; GERD (gastroesophageal reflux disease) K21.9 ; Backache M54.9 and Generalized anxiety disorder F41.[address] [address] Nov, [address] [address] Nov, [address] [address] Oct, Other chronic pain 338.[address] [address] Oct, [address] [address] Oct, Unspecified backache 724.5 and Dysphagia 787.[address] [address] Sep, Other chronic pain 338.[address] [address] Sep, [address] [address] Aug, URI (upper respiratory infection) 465.9 and Diarrhea 787.[address] [address] Aug, [address] [address] Aug, Other chronic pain 338.[address] [address] Aug, Other chronic pain 338.29 and Generalized anxiety disorder 300.[address] [address] Aug, [address] [address] July, Other chronic pain 338.29 [facility] [address] [place] [id number] July, Nondependent tobacco use disorder 305.1 ; Unspecified backache 724.5 ; Other chronic pain 338.29 ; Abdominal pain, unspecified site 789.00 ; [facility] (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 V58.69 and Acquired immune deficiency syndrome 042 [facility] [address] [place] [address] July, Other chronic pain 338.29 [facility] [address] [place] [address] Jun, Other chronic pain 338.29 [facility] [address] [place] [address] Jun, [facility] [address] [place] [address] Jun, Other chronic pain 338.[address] [address] Jun, URI (upper respiratory infection) 465.9 [facility] [address] [place] [address] Jun, Generalized anxiety disorder 300.02 and Seasonal allergies 477.9 [facility] [address] [place] [address] Jun, Generalized anxiety disorder 300.02 [facility] [address] [place] [address] May, Other chronic pain 338.29 [facility] [address] [place] [address] May, Other chronic pain 338.29 and Generalized anxiety disorder 300.02 [facility] [address] [place] [address] Apr, Asthma, intrinsic 493.10 and Acute upper respiratory infections of other multiple sites 465.8 [facility] [address] [place] [address] Apr, [facility] [address] [facility] [address] [place] [id number] Apr, Depressive disorder 311 [facility] [address] [place] [address] Apr, Other chronic pain 338.[address] [address] Apr, [address] [address] Apr, Other chronic pain 338.[address] [address] 14 Mar, 2014 Acute upper respiratory infections of unspecified site 465.9 [facility] [address] [place] [id number] Mar, Migraine 346.90 ; Nondependent tobacco use disorder 305.1 ; Esophageal reflux 530.81 ; Unspecified backache 724.5 ; Abdominal pain, generalized 789.07 ; Flatulence, eructation, and gas pain 787.3 ; Asymptomatic human immunodeficiency virus (HIV) infection status V08 ; Dyspepsia and other specified disorders of function of stomach 536.8 ; Nausea alone 787.02 and Asthma 493.[address] [address] Mar, Other chronic pain 338.[address] [address] Feb, Other chronic pain 338.29 and Generalized anxiety disorder 300.[address] [address] Feb, Abdominal pain, generalized 789.[address] [address] Jan, Abdominal pain, generalized 789.07 [facility] [address] [place] [id number] Dec, [address] [address] Dec, [address] [address] Dec, Unspecified backache 724.[address] [address] Dec, [address] [address] Nov, [facility] [place] [facility] [address] [facility] [address] [place] [id number] Nov, [facility] [address] [facility] [place] [id number] Nov, Bipolar disorder, unspecified 296.80 ; Abdominal pain, generalized 789.07 ; Generalized anxiety disorder 300.02 ; Nausea alone 787.02 ; Flu vaccine need V04.81 and Human immunodeficiency virus (HIV) disease 042 [facility] [address] [place] [facility] [place] [address] Nov, [facility] [address] [facility] [address] [place] [id number] Oct, [facility] [facility] [address] [facility] [address] [place] [id number] Oct, [facility] [facility] [address] [facility] [address] [place] [id number] Aug, [facility] [address] [place] [facility] [place] [address] Jun, [facility] [facility], [facility] [address] [place] [address] Mar, [facility] [address] [place] [address] Oct, [facility] [address] [place] [address] July, [facility] [address] [place] [address] Jun, [facility] [address] [place] [address] May, [facility] [address] [place] [address] Mar, [facility] [address] [place] [address] Feb, [facility] [address] [place] [address] Nov, [facility] [address] [place] [address] Oct, [facility] [address] [place] [address] Aug, [facility] [address] [place] [address] May, [facility] [address] [place] [address] Mar, IMMUNIZATIONS No Known Immunizations SOCIAL HISTORY Never Assessed REASON FOR VISIT UDS results PLAN OF CARE VITAL SIGNS MEDICATIONS Medication Instructions Dosage Frequency Start Date End Date Duration Status Hydrocodone-Acetaminophen 10-325 MG Orally once a day 1 tablet as needed 24h Oct, Jun, 30 days Active Promethazine HCl 25 MG Orally three times a day 1 tablet as needed 8h Mar, 30 day(s) Active ProAir HFA 108 (90 Base) MCG/ACT Inhalation every 4 hrs 2 puffs as needed 4h Sep, 30 days Active Zofran 4 MG Orally every 6 hours prn TAKE ONE TABLET BY MOUTH EVERY 8 HOURS FOR 10 DAYS 30 days Active Dapsone 100 MG Orally Once a day 1 tablet 24h Apr, 30 days Active Zithromax Z-Riky 250 MG Orally Once a day 1 tablet daily 24h May, Active Levaquin 500 MG Orally Once a day 1 tablet 24h Jun, 7 days Active Dicyclomine HCl 20 MG Orally three times a day 1 tablet 8h July, 30 day(s) Active Stribild [id number] MG Orally Once a day 1 tablet 24h Aug, 30 days Active Hydrochlorothiazide 25 MG Orally Once a day 1 tablet in the morning 24h July, 30 day(s) Active Diflucan 150 Orally Once a day 1 tablet 24h 5 Active [facility] Omeprazole 20 MG Orally Once a day 1 tablet 24h Mar, 30 day (s) Active Xanax 1 MG Orally once daily at bedtime 1 tablet as needed Sep, 30 days Active Methocarbamol 750 TAKE ONE TABLET BY MOUTH EVERY 8 HOURS FOR 10 DAYS 10 Active Marinol 10 MG Orally three times a day 1 capsule before lunch and supper 8h Jun, Active Ventolin HFA 108 (90 Base) MCG/ACT Inhalation every 4 hrs 2 puffs as needed 4h Oct, 30 days Active RESULTS No Results PROCEDURES [...]
[2017-08-18] MEDS ORDERED: NS IV 1000 ML 1,000 ML IV ONE (14:42)
--- OUTSIDE RECORDS SUMMARY | 2017-08-18 14:42 | XMS REPORT ---
Author Author Salome Solis [facility] Address [address] [place], [place] [id number] Care Team Providers Care Assembler Insulator Name Role Phone Salome Solis Unavailable PROBLEMS Type Condition ICD9-CM Code [id number] Code Onset Dates Condition Status SNOMED Code Problem Generalized anxiety disorder F41.1 Active 82197535 Problem Intrinsic asthma J45.909 Active 723226022 Problem GERD (gastroesophageal reflux disease) K21.9 Active 598369670 Problem Mixed hyperlipidemia E78.2 Active 416592219 Problem Migraine G43.909 Active 72146999 Problem Wheezing on auscultation R06.2 Active 670785617 Problem Acquired immune deficiency syndrome B20 Active 09728042 Problem Bipolar affective disorder F31.9 Active 11937686 Problem Backache M54.9 Active 914402819 Problem Nicotine dependence, cigarettes, uncomplicated F17.210 Active 07637800 Problem snf (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 Z79.891 Active 993757434 ALLERGIES Substance Reaction Event Type Date Status Gabapentin *anticonvulsants* ; pt states it gives her body tremors Non Drug Allergy Jan, Active SOCIAL HISTORY Never Assessed PLAN OF CARE Activity Details Follow Up 04/17/17, prn Reason: Pending Test Human Immunodeficiency Virus (HIV-1), Quantitative, Real-time PCR (graph) 90597 Pending Test Metabolic Panel (14), Comprehensive (CMP) 76075 Pending Test CD4/CD8 Ratio Profile 23725 Pending Test [employer] VITAL SIGNS Height 65 in 2017-01-16 Weight 140 lbs 2017-01-16 Temperature 97.4 degrees Fahrenheit 2017-01-16 Heart Rate 66 /min 2017-01-16 Respiratory Rate 18 /min 2017-01-16 Oximetry 95 % 2017-01-16 BMI 23.29 kg/m2 2017-01-16 Blood pressure systolic 114 mm Hg 2017-01-16 Blood pressure diastolic 66 mm Hg 2017-01-16 MEDICATIONS Medication Instructions Dosage Frequency Start Date End Date Duration Status Dapsone 100 MG Orally Once a day 1 tablet 24h 24 Apr, 2015 30 days Active Diflucan 150 Orally Once a day 1 tablet 24h 5 Active Dicyclomine HCl 20 MG Orally three times a day 1 tablet 8h July, 30 day(s) Active Azithromycin 250 MG Orally Once a day 1 tab 24h Mar, 30 days Active Ventolin HFA 108 (90 Base) MCG/ACT Inhalation every 4 hrs 2 puffs as needed 4h 11 Oct, 2016 30 days Active ProAir HFA 108 (90 Base) MCG/ACT Inhalation every 4 hrs 2 puffs as needed 4h Sep, 30 days Active [facility] Omeprazole 20 MG Orally Once a day 1 tablet 24h Mar, 30 day (s) Active Stribild [phone] MG Orally Once a day 1 tablet 24h Aug, 30 days Active Hydrochlorothiazide 25 MG Orally Once a day 1 tablet in the morning 24h July, 30 day(s) Active Clonidine HCl 0.1 MG Orally every 4 hrs 1 tablet as needed do not take is BP is <100/60 4h Aug, Active Promethazine HCl 25 MG Orally three times a day 1 tablet as needed 8h Mar, 30 day(s) Active Zofran 8 TAKE ONE TABLET BY MOUTH EVERY 8 HOURS FOR 10 DAYS 10 Active Hydrocodone-Acetaminophen 10-325 MG Orally every 6 hrs 1 tablet as needed 6h Oct, 30 days Active Marinol 10 MG Orally Twice a day 1 capsule before lunch and supper 12h Jun, 30 days Active Methocarbamol 750 MG Orally every 8 hrs 1 tablet 8h 18 Dec, 2015 10 days Active RESULTS No Results PROCEDURES Procedure Date Ordered Result Body Site COMPLETE BLOOD COUNT W/AUTO DIFF Jan 16, 2017 T CELL, ABSOLUTE COUNT/RATIO Jan 16, 2017 GENOTYPE, DNA, HIV REVERSE T Jan 16, 2017 PHENOTYPE, INFECT AGENT DRUG Jan 16, 2017 COMPREHEN METABOLIC PANEL Jan 16, 2017 HIV-1, DNA, QUANT Jan 16, 2017 Venipuncture Jan 16, 2017 IMMUNIZATIONS No Known Immunizations MEDICAL (GENERAL) HISTORY [...]
--- OUTSIDE RECORDS SUMMARY | 2017-08-18 14:42 | XMS REPORT ---
Author Dulce Clark [facility] Address [address], [place] [id number] Care Team Providers Care Office Services Associate Name Role Phone Dulce Olvera Unavailable PROBLEMS Type Condition ICD9-CM Code VKH35-AY Code Onset Dates Condition Status SNOMED Code Problem GERD (gastroesophageal reflux disease) K21.9 Active 198925883 Problem Backache M54.9 Active 838080270 Problem Intrinsic asthma J45.909 Active 617279139 Problem Mixed hyperlipidemia E78.2 Active 900004636 Problem Migraine G43.909 Active 95750728 Problem Generalized anxiety disorder F41.1 Active 29029887 Problem Mood swings F39 Active 45133511 Problem Wheezing on auscultation R06.2 Active 025000061 Problem retirement (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 Z79.891 Active 693914489 Problem Bipolar affective disorder F31.9 Active 61136128 Problem Acquired immune deficiency syndrome B20 Active 65709019 Problem Nicotine dependence, cigarettes, uncomplicated F17.210 Active 78390537 ALLERGIES No Information SOCIAL HISTORY Never Assessed [...]
--- OUTSIDE RECORDS SUMMARY | 2017-08-18 14:42 | XMS REPORT ---
Author Dulce Olvera [facility] Address [address], [place] [id number] Care Team Providers Care Puppet Developer Name Role Phone Dulce Olvera Unavailable PROBLEMS Type Condition ICD9-CM Code [id number] Code Onset Dates Condition Status SNOMED Code Problem Bipolar affective disorder F31.9 Active 55467637 Problem Nicotine dependence, cigarettes, uncomplicated F17.210 Active 61699520 Problem nursing home (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 Z79.891 Active 412724612 Problem Non-intractable cyclical vomiting with nausea G43.A0 Active 05786535 Problem Poor appetite R63.0 Active 30831651 Problem Wheezing on auscultation R06.2 Active 338700308 Problem Acquired immune deficiency syndrome B20 Active 08483977 Problem Other chronic pain G89.29 Active 84259275 Problem Mood swings F39 Active 68337926 Problem Generalized anxiety disorder F41.1 Active 59624630 Problem GERD (gastroesophageal reflux disease) K21.9 Active 413940356 Problem Mixed hyperlipidemia E78.2 Active 515024945 Problem Intrinsic asthma J45.909 Active 765127461 Problem Migraine G43.909 Active 86102928 Problem Backache M54.9 Active 789900342 ALLERGIES No Information ENCOUNTERS Encounter Location Date Diagnosis [facility] [address] [facility] [address] [place] [id number] Sep, [facility] [address] [place] [address] Jun, [facility] [address] [place] [address] Jun, [facility] [address] [place] [address] Jun, Other chronic pain G89.29 [facility] [address] [place] [address] Jun, [facility] [address] [place] [address] Jun, [facility] [address] [place] [address] Jun, [facility] [address] [place] [address] Jun, [facility] [address] [place] [address] Jun, [facility] [address] [place] [address] Jun, Generalized anxiety disorder F41.1 ; Other chronic pain G89.29 and Non-intractable cyclical vomiting with nausea G43.A0 [facility] [address] [place] [id number] Jun, Acquired immune deficiency syndrome B20 ; 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 ; Nicotine dependence, cigarettes, uncomplicated F17.210 ; Lower respiratory infection J22 ; Poor appetite R63.0 ; Other chronic pain G89.29 ; Generalized anxiety disorder F41.1 and Need for tetanus booster Z23 [facility] [address] [place] [address] Jun, [address] [address] May, Generalized abdominal pain R10.84 [facility] [address] [place] [address] May, [address] [address] Apr, AIDS B20 ; Generalized abdominal pain R10.84 and Dysmenorrhea N94.6 [facility] [address] [place] [address] Apr, Acute URI J06.[address] [address] Apr, [facility] [address] [place] [address] Apr, [facility] [address] [place] [phone] Apr, Acquired immune deficiency syndrome B20 ; nursing home ( 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 Z79.891 and Migraine G43.909 [facility] [address] [place] [address] Mar, Dysmenorrhea N94.6 [facility] [address] [place] [address] Mar, [facility] [address] [place] [address] Mar, Generalized anxiety disorder F41.1 and Generalized abdominal pain R10.84 [facility] [address] [place] [address] Mar, [facility] [address] [place] [address] Mar, Generalized abdominal pain R10.84 and Generalized anxiety disorder F41.1 [facility] [address] [place] [address] Feb, [facility] [address] [place] [address] Feb, Generalized abdominal pain R10.84 [facility] [address] [place] [address] Jan, Nausea and vomiting R11.2 [facility] [address] [place] [address] Jan, [facility] [address] [place] [address] Jan, [facility] [address] [place] [address] Jan, [facility] [address] [place] [address] Jan, [facility] [address] [place] [address] Jan, [facility] [address] [place] [address] Jan, Mood swings F39 [facility] [address] [place] [address] 08 Jan, 2017 [facility] [address] [place] [address] Jan, [facility] [address] [place] [address] Jan, [facility] [address] [place] [address] Jan, Dysmenorrhea N94.6 [facility] [address] [place] [phone] Jan, Acquired immune deficiency syndrome B20 ; Generalized abdominal pain R10.84 and Refused influenza vaccine Z28.21 [facility] [address] [place] [address] Jan, [facility] [address] [address] Dec, Generalized abdominal pain R10.84 [facility] [address] [place] [address] Dec, Dysmenorrhea N94.6 [facility] [address] [address] Dec, Backache M54.9 [facility] [address] [address] Nov, Generalized abdominal pain R10.84 [facility] [address] [address] Nov, Generalized anxiety disorder F41.1 [facility] [address] [address] Nov, Dysmenorrhea N94.6 [facility] [address] [place] [address] Oct, [facility] [address] [place] [address] Oct, [facility] [address] [place] [address] Oct, [facility] [address] [place] [address] Oct, Generalized abdominal pain R10.84 [facility] [address] [facility] [address] [place] [id number] Oct, Acquired immune deficiency syndrome B20 ; 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 ; Bipolar affective disorder F31.9 ; Generalized anxiety disorder F41.1 ; Backache M54.9 ; Mixed hyperlipidemia E78.2 ; Nicotine dependence, cigarettes, uncomplicated F17.210 and Wheezing on auscultation R06.2 [facility] [address] [place] [address] Oct, Oral candidiasis B37.0 [facility] [address] [place] [address] Oct, [facility] [address] [place] [address] Oct, Acute upper respiratory infection J06.9 [facility] [address] [place] [address] Oct, Acute upper respiratory infection J06.9 [facility] [address] [place] [address] Sep, Dysmenorrhea N94.6 [facility] [address] [place] [address] Sep, Generalized anxiety disorder F41.1 [facility] [address] [place] [address] Sep, Dysmenorrhea N94.6 [facility] [address] [place] [address] Sep, [facility] [address] [place] [address] Sep, Dysmenorrhea N94.6 [facility] [address] [place] [address] Aug, Acquired immune deficiency syndrome B20 [facility] [address] [place] [address] Aug, Generalized anxiety disorder F41.1 [facility] [address] [place] [address] Aug, [facility] [address] [place] [address] Aug, [facility] [address] [place] [address] Aug, [facility] [address] [place] [address] Aug, [facility] [address] [place] [address] Aug, [facility] [address] [place] [address] Aug, [facility] [address] [place] [address] Aug, [facility] [address] [place] [address] Aug, Acute opioid withdrawal F11.[address] [address] July, Upper respiratory infection J06.[address] [address] July, Backache M54.9 [facility] [address] [place] [phone] July, Acquired immune deficiency syndrome B20 ; 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 ; Hyperglycemia R73.9 ; Bipolar affective disorder F31.9 ; GERD (gastroesophageal reflux disease) K21.9 ; Backache M54.9 ; Generalized anxiety disorder F41.1 ; Mixed hyperlipidemia E78.2 ; Nicotine dependence, cigarettes, uncomplicated F17.210 and Localized edema R60.[address] [address] July, [facility] [address] [place] [address] Jun, Backache M54.[address] [address] Jun, Chronic pain G89.[address] [address] May, Backache M54.[address] [address] May, Backache M54.[address] [address] Apr, Cough R05 [facility] [address] [id number] Apr, Acquired immune deficiency syndrome B20 ; Screening examination for sexually transmitted disease Z11.3 ; Dermatitis L30.9 and Migraine with aura and with status migrainosus, not intractable G43.[address] [address] Apr, Backache M54.[address] [address] Mar, Intrinsic asthma J45.909 ; Nausea and vomiting R11.2 and AIDS B20 [address] [address] Mar, Backache M54.[address] [address] Feb, Chronic pain G89.[address] [address] Feb, Backache M54.[address] [address] Jan, [place] [facility], 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 [address] Jan, Asthma, intrinsic 493.[address] [address] Jan, [address] [address] Jan, [address] [address] Jan, Backache M54.[address] [address] Dec, Chronic pain G89.29 [facility] [address] [place] [phone] Dec, AIDS B20 ; Influenza vaccine needed Z23 ; Intrinsic asthma J45.909 ; Backache M54.9 ; Generalized anxiety disorder F41.1 ; Nicotine dependence, cigarettes, uncomplicated F17.210 and Mixed hyperlipidemia E78.2 [facility] [address] [place] [address] Dec, [facility] [address] [place] [address] Dec, Dysmenorrhea N94.6 [facility] [address] [place] [address] Dec, [facility] [address] [place] [address] 17 Dec, 2015 Depression with anxiety F41.8 and Backache M54.9 [facility] [address] [place] [address] Nov, [facility] [address] [place] [address] 19 Nov, 2015 Other chronic pain G89.29 [facility] [address] [place] [address] 18 Nov, 2015 Other chronic pain G89.29 [facility] [address] [place] [address] 18 Nov, 2015 [facility] [address] [place] [address] 14 Nov, 2015 Generalized anxiety disorder F41.1 [facility] [address] [place] [address] 06 Nov, 2015 [facility] [address] [place] [address] Nov, [facility] [address] [place] [address] 04 Nov, 2015 Chronic pain G89.29 [facility] [address] [place] [address] Oct, [facility] [address] [place] [address] Oct, Other chronic pain G89.29 [facility] [address] [place] [address] Oct, [facility] [address] [place] [address] Oct, [facility] [address] [place] [address] Oct, Nausea and vomiting R11.2 [facility] [address] [place] [address] Oct, Chronic pain G89.29 [facility] [address] [place] [address] Sep, [facility] [address] [place] [address] Sep, Acute upper respiratory infection, unspecified J06.9 [facility] [address] [place] [address] Sep, Upper respiratory infection J06.9 [facility] [address] [place] [address] Sep, [facility] [address] [place] [address] Sep, [facility] [address] [place] [address] Sep, Other chronic pain G89.29 [facility] [address] [place] [phone] Sep, AIDS B20 ; nursing home (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 Z79.891 ; Smoking F17.200 ; Mixed hyperlipidemia E78.2 ; Chronic pain G89.29 and Edema R60.9 [facility] [address] [place] [address] Sep, [facility] [address] [place] [address] Sep, [facility] [address] [place] [address] Aug, [facility] [address] [place] [address] Aug, Other chronic pain G89.29 [facility] [address] [place] [address] Aug, Generalized anxiety disorder F41.[address] [address] July, Other chronic pain G89.29 [facility] [address] [place] [facility] [place] [address] July, Other chronic pain G89.29 [facility] [address] [place] [facility] [address] July, [facility] [address] [place] [facility] [place] [address] Jun, Generalized anxiety disorder F41.1 [facility] [address] [place] [facility] [place] [address] Jun, [facility] [address] [place] [facility] [place] [address] Jun, Other chronic pain G89.29 [facility] [address] [place] [facility] [place] [address] Jun, Rash and other nonspecific skin eruption R21 [facility] [address] [place] [facility] [place] [address] Jun, [facility] [address] [place] [facility] [address] Jun, [facility] [address] [place] [facility] [address] Jun, [facility] [address] [place] [facility] [address] Jun, [facility] [address] [place] [facility] [place] [facility] [address] Jun, [facility] [address] [place] [facility] [place] [address] Jun, [facility] [address] [place] [facility] [place] [address] Jun, [facility] [address] [place] [facility] [place] [address] Jun, Other chronic pain G89.29 [facility] [address] [place] [facility] [place] [facility] [address] Jun, [facility] [address] [place] [facility] [place] [address] Jun, [facility] [address] [place] [facility] [place] [address] Jun, [facility] [address] [place] [facility] [place] [address] Jun, [facility] [address] [place] [facility] [place] [address] Jun, [facility] [address] [place] [facility] [place] [facility] [address] Jun, [facility] [address] [place] [facility] [place] [facility] [address] Jun, [facility] [address] [place] [facility] [place] [address] Jun, [facility] [address] [place] [facility] [place] [address] Jun, [facility] [address] [place] [facility] [place] [address] Jun, Nausea and vomiting R11.2 [facility] [address] [facility] [place] [address] May, [facility] [address] [facility] [place] [address] May, Rash and other nonspecific skin eruption R21 [facility] [address] [facility] [place] [address] May, [facility] [address] [place] [address] May, [facility] [address] [place] [address] May, [facility] [address] [facility] [place] [address] May, [facility] [address] [place] [address] May, [facility] [address] [place] [phone] May, Acquired immune deficiency syndrome B20 ; Screening examination for sexually transmitted disease Z11.3 ; Depression with anxiety F41.8 ; Other chronic pain G89.29 and Dermatitis L30.9 [facility] [address] [facility] [place] [address] May, [facility] [address] [place] [facility] [place] [address] May, [facility] [address] [place] [facility] [place] [facility] [address] May, [facility] [address] [place] [facility] [place] [address] May, Backache M54.9 [facility] [address] [place] [facility] [place] [address] May, Rash and other nonspecific skin eruption R21 [facility] [address] [place] [facility] [place] [address] Apr, [facility] [address] [place] [facility] [place] [address] Apr, [facility] [address] [place] [facility] [place] [address] Apr, Other chronic pain G89.29 [facility] [address] [place] [place] [address] Apr, [facility] [address] [place] [facility] [place] [address] Apr, [facility] [address] [place] [facility] [place] [address] Apr, [facility] [address] [place] [facility] [place] [address] Apr, [facility] [address] [facility] [place] [address] Apr, [facility] [address] [place] [facility] [place] [address] Apr, [facility] [address] [place] [facility] [address] Apr, [facility] [address] [place] [facility] [place] [address] Apr, [facility] [address] [place] [facility] [place] [facility] [address] Apr, [facility] [address] [facility] [place] [address] Apr, [facility] [address] [place] [address] Apr, Other chronic pain G89.29 ; Generalized anxiety disorder F41.1 ; Nausea R11.0 and AIDS B20 [facility] [address] [place] [address] Apr, [facility] [address] [place] [address] Apr, Generalized anxiety disorder F41.1 [facility] [address] [place] [address] Apr, [facility] [address] [place] [address] Apr, Other chronic pain G89.[address] [address] Mar, [facility] [address] [place] [phone] Mar, nursing home (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 Z79.891 ; Bipolar affective disorder F31.9 ; Smoking F17.200 ; Generalized anxiety disorder F41.1 ; Influenza vaccine administered Z23 and AIDS B20 [address] [address] Mar, Other chronic pain G89.[address] [address] Mar, Generalized anxiety disorder F41.[address] [address] Mar, [facility] [address] [place] [address] Mar, Asymptomatic HIV infection Z21 [address] [address] Mar, Other chronic pain G89.[address] [address] Feb, [address] [address] Feb, [address] [address] Feb, [facility] [address] [place] [address] Feb, [facility] [address] [place] [address] Feb, [facility] [address] [place] [address] Jan, Other chronic pain G89.29 and Nausea & vomiting R11.2 [facility] [address] [place] [address] Jan, Other chronic pain G89.29 [facility] [address] [place] [address] Dec, [facility] [address] [place] [address] Dec, Other chronic pain G89.29 ; Asymptomatic HIV infection Z21 ; Intrinsic asthma J45.909 ; Bipolar affective disorder F31.9 ; Noncompliance Z91.19 ; Migraine G43.909 ; Tobacco use disorder Z72.0 ; GERD (gastroesophageal reflux disease) K21.9 ; Backache M54.9 and Generalized anxiety disorder F41.1 [facility] [address] [place] [address] Nov, [facility] [address] [place] [address] Nov, [address] [address] Oct, Other chronic pain 338.29 [facility] [address] [place] [address] Oct, [facility] [address] [place] [address] Oct, Unspecified backache 724.5 and Dysphagia 787.20 [facility] [address] [place] [address] Sep, Other chronic pain 338.[address] [address] Sep, [address] [place] [address] 30 Aug, 2014 URI (upper respiratory infection) 465.9 and Diarrhea 787.[address] [address] Aug, [address] [address] Aug, Other chronic pain 338.[address] [address] Aug, Other chronic pain 338.29 and Generalized anxiety disorder 300.[address] [address] Aug, [address] [address] July, Other chronic pain 338.29 [facility] [address] [place] [id number] July, Nondependent tobacco use disorder 305.1 ; Unspecified backache 724.5 ; Other chronic pain 338.29 ; Abdominal pain, unspecified site 789.00 ; nursing home (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 V58.69 and Acquired immune deficiency syndrome [address] [address] July, Other chronic pain 338.[address] [address] Jun, Other chronic pain 338.[address] [address] Jun, [address] [address] Jun, Other chronic pain 338.[address] [address] Jun, URI (upper respiratory infection) 465.[address] [address] Jun, Generalized anxiety disorder 300.02 and Seasonal allergies 477.[address] [address] Jun, Generalized anxiety disorder 300.02 [facility] [address] [place] [address] May, Other chronic pain 338.[address] [address] May, Other chronic pain 338.29 and Generalized anxiety disorder 300.02 [facility] [address] [place] [address] Apr, Asthma, intrinsic 493.10 and Acute upper respiratory infections of other multiple sites 465.8 [facility] [address] [place] [address] Apr, [facility] [address] [facility] [address] [place] [id number] Apr, Depressive disorder [facility] [facility] [address] [place] [phone] Apr, Other chronic pain 338.[address] [address] Apr, [facility] [address] [place] [address] Apr, Other chronic pain 338.[address] [address] Mar, Acute upper respiratory infections of unspecified site 465.9 [facility] [address] [place] [phone] Mar, Migraine 346.90 ; Nondependent tobacco use disorder 305.1 ; Esophageal reflux 530.81 ; Unspecified backache 724.5 ; Abdominal pain, generalized 789.07 ; Flatulence, eructation, and gas pain 787.3 ; Asymptomatic human immunodeficiency virus (HIV) infection status V08 ; Dyspepsia and other specified disorders of function of stomach 536.8 ; Nausea alone 787.02 and Asthma 493.[address] [address] Mar, Other chronic pain 338.[address] [address] Feb, Other chronic pain 338.29 and Generalized anxiety disorder 300.02 [facility] [address] [place] [address] Feb, Abdominal pain, generalized 789.07 [facility] [address] [place] [address] Jan, Abdominal pain, generalized 789.07 [facility] [address] [place] [phone] Dec, [facility] [address] [place] [address] Dec, [facility] [address] [place] [address] Dec, Unspecified backache 724.5 [facility] [address] [place] [address] Dec, [facility] [address] [place] [address] Nov, [facility] [address] [phone] Nov, [facility] [address] [place] [phone] Nov, Bipolar disorder, unspecified 296.80 ; Abdominal pain, generalized 789.07 ; Generalized anxiety disorder 300.02 ; Nausea alone 787.02 ; Flu vaccine need V04.81 and Human immunodeficiency virus (HIV) disease 042 [facility] [address] [place] [address] Nov, [facility] [address] [place], [place] [phone] Oct, [facility] [address] [facility] [address] [place], [place] [phone] Oct, [facility] [address] [phone] Aug, [facility] [address] [place] [address] Jun, [facility] [address] [place] [address] Mar, [facility] [address] [place] [address] Oct, [facility] [address] [place] [facility] [address] July, [facility] [address] [place] [facility] [address] Jun, [facility] [address] [place] [facility] [address] May, [facility] [address] [place] [facility] [address] Mar, [facility] [address] [place] [facility] [address] Feb, [facility] [address] [place] [facility] [address] Nov, [facility] [address] [place] [facility] [address] Oct, [facility] [address] [place] [facility] [address] Aug, [facility] [address] [place] [facility] [address] May, [facility] [address] [place] [facility] [address] Mar, IMMUNIZATIONS No Known Immunizations SOCIAL HISTORY Never Assessed REASON FOR VISIT Re: RE:Re: RE:RE:RE:Fatigue PLAN OF CARE VITAL SIGNS MEDICATIONS Unknown [...]
--- OUTSIDE RECORDS SUMMARY | 2017-08-18 14:42 | XMS REPORT ---
Author Author Salome Solis [facility] Address [address] [place], [place] [id number] Care Team Providers Care Research Scientist Name Role Phone Salome Solis Unavailable PROBLEMS Type Condition ICD9-CM Code UGY52-QN Code Onset Dates Condition Status SNOMED Code Problem Backache M54.9 Active 805468873 Problem Migraine G43.909 Active 91335482 Problem GERD (gastroesophageal reflux disease) K21.9 Active 231753642 Problem Mixed hyperlipidemia E78.2 Active 354346715 Problem Generalized anxiety disorder F41.1 Active 17641691 Problem Wheezing on auscultation R06.2 Active 947885625 Problem Acquired immune deficiency syndrome B20 Active 85200461 Problem Intrinsic asthma J45.909 Active 879760266 Problem Bipolar affective disorder F31.9 Active 87963425 Problem Nicotine dependence, cigarettes, uncomplicated F17.210 Active 21249549 Problem skilled nursing (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 Z79.891 Active 700756683 ALLERGIES No Information SOCIAL HISTORY Never Assessed PLAN OF CARE VITAL SIGNS MEDICATIONS Medication Instructions Dosage Frequency Start Date End Date Duration Status Ventolin HFA 108 (90 Base) MCG/ACT Inhalation every 4 hrs 2 puffs as needed 4h Oct, 30 days Active Methocarbamol 750 MG Orally every 8 hrs 1 tablet 8h 18 Dec, 2015 10 days Active Hydrochlorothiazide 25 MG Orally Once a day 1 tablet in the morning 24h July, 30 day(s) Active Stribild [id number] MG Orally Once a day 1 tablet 24h Aug, 30 days Active ProAir HFA 108 (90 Base) MCG/ACT Inhalation every 4 hrs 2 puffs as needed 4h Sep, 30 days Active Promethazine HCl 25 MG Orally three times a day 1 tablet as needed 8h 20 Mar, 2016 30 day(s) Active Dicyclomine HCl 20 MG Orally three times a day 1 tablet 8h July, 30 day(s) Active Tramadol HCl 50 MG Orally every 6 hrs 2 tablet as needed 6h Sep, 8 Dec, 2016 15 days Active [facility] Omeprazole 20 MG Orally Once a day 1 tablet 24h Mar, 30 day (s) Active Marinol 10 MG Orally Twice a day 1 capsule before lunch and supper 12h Jun, 30 days Active Azithromycin 250 MG Orally Once a day 1 tab 24h Mar, 30 days Active Hydrocodone-Acetaminophen 10-325 MG Orally every 6 hrs 1 tablet as needed 6h Oct, Dec, 30 days Active Clonidine HCl 0.1 MG Orally every 4 hrs 1 tablet as needed do not take is BP is <100/60 4h 08 Aug, 2016 Active Dapsone 100 MG Orally Once a day 1 tablet 24h 24 Apr, 2015 30 days Active Zofran 8 TAKE ONE TABLET BY MOUTH EVERY 8 HOURS FOR 10 DAYS 10 Active RESULTS No Results PROCEDURES No Known procedures IMMUNIZATIONS No Known Immunizations MEDICAL (GENERAL) HISTORY Type Description Date Medical History H/O noncompliance with medical treatment, [...] Abdominal pain, chronic, generalized ; Medical History Asymptomatic HIV infection ; Medical History Asthma Medical History Nausea alone Medical History Sebaceous cyst (Inactive) Medical History Sebaceous cyst (Inactive) Medical History [...] Generalized anxiety disorder Surgical History Tubal Ligation ;
--- OUTSIDE RECORDS SUMMARY | 2017-08-18 14:43 | XMS REPORT ---
Author Dulce Clark [facility] Address [address] [place], [place] [id number] Care Team Providers Care Pyrotechnic Assembler Name Role Phone Dulce Olvera Unavailable PROBLEMS Type Condition ICD9-CM Code QHU20-EP Code Onset Dates Condition Status SNOMED Code Problem GERD (gastroesophageal reflux disease) K21.9 Active 824651359 Problem Backache M54.9 Active 912870411 Problem Intrinsic asthma J45.909 Active 648099990 Problem Mixed hyperlipidemia E78.2 Active 188870226 Problem Migraine G43.909 Active 22928954 Problem Generalized anxiety disorder F41.1 Active 94370050 Problem Mood swings F39 Active 66818701 Problem Wheezing on auscultation R06.2 Active 914576936 Problem nursing home (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 Z79.891 Active 954205869 Problem Bipolar affective disorder F31.9 Active 21124616 Problem Acquired immune deficiency syndrome B20 Active 82325533 Problem Nicotine dependence, cigarettes, uncomplicated F17.210 Active 25462404 ALLERGIES No Information SOCIAL HISTORY Never Assessed [...]
--- OUTSIDE RECORDS SUMMARY | 2017-08-18 14:43 | XMS REPORT ---
Author Dulce Clark [facility] Address [address] [place], [place] [id number] Care Team Providers Care Special Needs Caregiver Name Role Phone Dulce Olvera Unavailable PROBLEMS Type Condition ICD9-CM Code TEB66-SH Code Onset Dates Condition Status SNOMED Code Problem GERD (gastroesophageal reflux disease) K21.9 Active 584394702 Problem Backache M54.9 Active 097752455 Problem Intrinsic asthma J45.909 Active 327462177 Problem Mixed hyperlipidemia E78.2 Active 722775279 Problem Migraine G43.909 Active 63043979 Problem Generalized anxiety disorder F41.1 Active 84680323 Problem Mood swings F39 Active 70689011 Problem Wheezing on auscultation R06.2 Active 436819397 Problem [facility] (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 Z79.891 Active 028017130 Problem Bipolar affective disorder F31.9 Active 53443327 Problem Acquired immune deficiency syndrome B20 Active 06520897 Problem Nicotine dependence, cigarettes, uncomplicated F17.210 Active 79855093 ALLERGIES No Information SOCIAL HISTORY Never Assessed [...]
--- OUTSIDE RECORDS SUMMARY | 2017-08-18 14:44 | XMS REPORT ---
Author Dulce Olvera [facility] Address [address], [place] [id number] Care Team Providers Care Type Proof Reproducer Name Role Phone Dulce Olvera Unavailable PROBLEMS Type Condition ICD9-CM Code AML78-FK Code Onset Dates Condition Status SNOMED Code Problem Bipolar affective disorder F31.9 Active 35595110 Problem Nicotine dependence, cigarettes, uncomplicated F17.210 Active 73022475 Problem intermediate (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 Z79.891 Active 686590772 Problem Non-intractable cyclical vomiting with nausea G43.A0 Active 78505255 Problem Poor appetite R63.0 Active 53237027 Problem Wheezing on auscultation R06.2 Active 375406003 Problem Acquired immune deficiency syndrome B20 Active 38131308 Problem Other chronic pain G89.29 Active 89389526 Problem Mood swings F39 Active 20673983 Problem Generalized anxiety disorder F41.1 Active 10685165 Problem GERD (gastroesophageal reflux disease) K21.9 Active 161101054 Problem Mixed hyperlipidemia E78.2 Active 549517316 Problem Intrinsic asthma J45.909 Active 338014240 Problem Migraine G43.909 Active 44177850 Problem Backache M54.9 Active [id number] ALLERGIES No Information ENCOUNTERS Encounter Location Date Diagnosis [facility] [address] [facility] [address] [place] [id number] Sep, [facility] [address] [place] [address] Jun, [facility] [address] [place] [address] Jun, [facility] [address] [place] [address] Jun, Other chronic pain G89.29 [facility] [address] [place] [address] Jun, [facility] [address] [place] [address] Jun, [facility] [address] [place] [address] Jun, [facility] [address] [place] [address] Jun, [facility] [address] [place] [address] Jun, [facility] [address] [place] [address] Jun, Generalized anxiety disorder F41.1 ; Other chronic pain G89.29 and Non-intractable cyclical vomiting with nausea G43.A0 [facility] [address] [place] [id number] Jun, Acquired immune deficiency syndrome B20 ; terminal gauger ( 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 Z79.891 ; Nicotine dependence, cigarettes, uncomplicated F17.210 ; Lower respiratory infection J22 ; Poor appetite R63.0 ; Other chronic pain G89.29 ; Generalized anxiety disorder F41.1 and Need for tetanus booster Z23 [facility] [address] [place] [address] Jun, [address] [address] May, Generalized abdominal pain R10.84 [facility] [address] [place] [address] May, [address] [address] Apr, AIDS B20 ; Generalized abdominal pain R10.84 and Dysmenorrhea N94.6 [facility] [address] [place] [address] Apr, Acute URI J06.[address] [address] Apr, [facility] [address] [place] [address] Apr, [facility] [address] [place] [id number] Apr, Acquired immune deficiency syndrome B20 ; intermediate ( 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 Z79.891 and Migraine G43.909 [facility] [address] [place] [address] Mar, Dysmenorrhea N94.6 [facility] [address] [place] [address] Mar, [facility] [address] [place] [address] Mar, Generalized anxiety disorder F41.1 and Generalized abdominal pain R10.84 [facility] [address] [place] [address] Mar, [facility] [address] [place] [address] Mar, Generalized abdominal pain R10.84 and Generalized anxiety disorder F41.1 [facility] [address] [place] [address] Feb, [facility] [address] [place] [address] Feb, Generalized abdominal pain R10.84 [facility] [address] [place] [address] Jan, Nausea and vomiting R11.2 [facility] [address] [place] [address] Jan, [facility] [address] [place] [address] Jan, [facility] [address] [place] [address] Jan, [facility] [address] [place] [address] Jan, [facility] [address] [place] [address] Jan, [facility] [address] [place] [address] Jan, Mood swings F39 [facility] [address] [place] [address] 08 Jan, 2017 [facility] [address] [place] [address] Jan, [facility] [address] [place] [address] Jan, [facility] [address] [place] [address] Jan, Dysmenorrhea N94.6 [facility] [address] [place] [phone] Jan, Acquired immune deficiency syndrome B20 ; Generalized abdominal pain R10.84 and Refused influenza vaccine Z28.21 [facility] [address] [place] [address] Jan, [facility] [address] [address] Dec, Generalized abdominal pain R10.84 [facility] [address] [place] [address] Dec, Dysmenorrhea N94.6 [facility] [address] [address] Dec, Backache M54.9 [facility] [address] [address] Nov, Generalized abdominal pain R10.84 [facility] [address] [address] Nov, Generalized anxiety disorder F41.1 [facility] [address] [address] Nov, Dysmenorrhea N94.6 [facility] [address] [place] [address] Oct, [facility] [address] [place] [address] Oct, [facility] [address] [place] [address] Oct, [facility] [address] [place] [address] Oct, Generalized abdominal pain R10.84 [facility] [address] [facility] [address] [place] [id number] Oct, Acquired immune deficiency syndrome B20 ; terminal gauger 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 Z79.891 ; Bipolar affective disorder F31.9 ; Generalized anxiety disorder F41.1 ; Backache M54.9 ; Mixed hyperlipidemia E78.2 ; Nicotine dependence, cigarettes, uncomplicated F17.210 and Wheezing on auscultation R06.2 [facility] [address] [place] [address] Oct, Oral candidiasis B37.0 [facility] [address] [place] [address] Oct, [facility] [address] [place] [address] Oct, Acute upper respiratory infection J06.9 [facility] [address] [place] [address] Oct, Acute upper respiratory infection J06.9 [facility] [address] [place] [address] Sep, Dysmenorrhea N94.6 [facility] [address] [place] [address] Sep, Generalized anxiety disorder F41.1 [facility] [address] [place] [address] Sep, Dysmenorrhea N94.6 [facility] [address] [place] [address] Sep, [facility] [address] [place] [address] Sep, Dysmenorrhea N94.6 [facility] [address] [place] [address] Aug, Acquired immune deficiency syndrome B20 [facility] [address] [place] [address] Aug, Generalized anxiety disorder F41.1 [facility] [address] [place] [address] Aug, [facility] [address] [place] [address] Aug, [facility] [address] [place] [address] Aug, [facility] [address] [place] [address] Aug, [facility] [address] [place] [address] Aug, [facility] [address] [place] [address] Aug, [facility] [address] [place] [address] Aug, [facility] [address] [place] [address] Aug, Acute opioid withdrawal F11.[address] [address] July, Upper respiratory infection J06.[address] [address] July, Backache M54.9 [facility] [address] [place] [phone] July, Acquired immune deficiency syndrome B20 ; terminal gauger 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 Z79.891 ; Hyperglycemia R73.9 ; Bipolar affective disorder F31.9 ; GERD (gastroesophageal reflux disease) K21.9 ; Backache M54.9 ; Generalized anxiety disorder F41.1 ; Mixed hyperlipidemia E78.2 ; Nicotine dependence, cigarettes, uncomplicated F17.210 and Localized edema R60.[address] [address] July, [facility] [address] [place] [address] Jun, Backache M54.[address] [address] Jun, Chronic pain G89.[address] [address] May, Backache M54.[address] [address] May, Backache M54.[address] [address] Apr, Cough R05 [facility] [address] [id number] Apr, Acquired immune deficiency syndrome B20 ; Screening examination for sexually transmitted disease Z11.3 ; Dermatitis L30.9 and Migraine with aura and with status migrainosus, not intractable G43.[address] [address] Apr, Backache M54.[address] [address] Mar, Intrinsic asthma J45.909 ; Nausea and vomiting R11.2 and AIDS B20 [address] [address] Mar, Backache M54.[address] [address] Feb, Chronic pain G89.[address] [address] Feb, Backache M54.[address] [address] Jan, [place], 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 [address] Jan, Asthma, intrinsic 493.[address] [address] Jan, [address] [address] Jan, [address] [address] Jan, Backache M54.[address] [address] Dec, Chronic pain G89.29 [facility] [address] [place] [phone] Dec, AIDS B20 ; Influenza vaccine needed Z23 ; Intrinsic asthma J45.909 ; Backache M54.9 ; Generalized anxiety disorder F41.1 ; Nicotine dependence, cigarettes, uncomplicated F17.210 and Mixed hyperlipidemia E78.2 [facility] [address] [place] [address] Dec, [facility] [address] [place] [address] Dec, Dysmenorrhea N94.6 [facility] [address] [place] [address] Dec, [facility] [address] [place] [address] 17 Dec, 2015 Depression with anxiety F41.8 and Backache M54.9 [facility] [address] [place] [address] Nov, [facility] [address] [place] [address] 19 Nov, 2015 Other chronic pain G89.29 [facility] [address] [place] [address] 18 Nov, 2015 Other chronic pain G89.29 [facility] [address] [place] [address] 18 Nov, 2015 [facility] [address] [place] [address] 14 Nov, 2015 Generalized anxiety disorder F41.1 [facility] [address] [place] [address] 06 Nov, 2015 [facility] [address] [place] [address] Nov, [facility] [address] [place] [address] 04 Nov, 2015 Chronic pain G89.29 [facility] [address] [place] [address] Oct, [facility] [address] [place] [address] Oct, Other chronic pain G89.29 [facility] [address] [place] [address] Oct, [facility] [address] [place] [address] Oct, [facility] [address] [place] [address] Oct, Nausea and vomiting R11.2 [facility] [address] [place] [address] Oct, Chronic pain G89.29 [facility] [address] [place] [address] Sep, [facility] [address] [place] [address] Sep, Acute upper respiratory infection, unspecified J06.9 [facility] [address] [place] [address] Sep, Upper respiratory infection J06.9 [facility] [address] [place] [address] Sep, [facility] [address] [place] [address] Sep, [facility] [address] [place] [address] Sep, Other chronic pain G89.29 [facility] [address] [place] [id number] Sep, AIDS B20 ; intermediate (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 Z79.891 ; Smoking F17.200 ; Mixed hyperlipidemia E78.2 ; Chronic pain G89.29 and Edema R60.9 [facility] [address] [place] [address] Sep, [facility] [address] [place] [address] Sep, [facility] [address] [place] [address] Aug, [facility] [address] [place] [address] Aug, Other chronic pain G89.29 [facility] [address] [place] [address] Aug, Generalized anxiety disorder F41.[address] [address] July, Other chronic pain G89.29 [facility] [address] [facility] [place] [place] [address] July, Other chronic pain G89.29 [facility] [address] [facility] [place] [address] July, [facility] [address] [facility] [place] [address] Jun, Generalized anxiety disorder F41.1 [facility] [address] [facility] [place] [address] Jun, [facility] [address] [facility] [place] [address] Jun, Other chronic pain G89.29 [facility] [address] [facility] [place] [address] Jun, Rash and other nonspecific skin eruption R21 [facility] [address] [facility] [place] [place] [address] Jun, [facility] [address] [facility] [place] [address] Jun, [facility] [address] [facility] [place] [address] Jun, [facility] [address] [facility] [place] [address] Jun, [facility] [address] [facility] [place] [address] Jun, [facility] [address] [facility] [place] [address] Jun, [facility] [address] [facility] [place] [address] Jun, [facility] [address] [facility] [place] [place] [address] Jun, Other chronic pain G89.29 [facility] [address] [facility] [place] [address] Jun, [facility] [address] [facility] [place] [address] Jun, [facility] [address] [facility] [place] [address] Jun, [facility] [address] [facility] [place] [address] Jun, [facility] [address] [facility] [place] [address] Jun, [facility] [address] [facility] [place] [address] Jun, [facility] [address] [facility] [place] [address] Jun, [facility] [address] [facility] [place] [address] Jun, [facility] [address] [facility] [place] [address] Jun, [facility] [address] [facility] [place] [address] Jun, Nausea and vomiting R11.2 [facility] [address] [place] [address] May, [facility] [address] [place] [address] May, Rash and other nonspecific skin eruption R21 [facility] [address] [place] [address] May, [facility] [address] [place] [address] May, [facility] [address] [place] [address] May, [facility] [address] [place] [address] May, [facility] [address] [place] [address] May, [facility] [address] [place] [id number] May, Acquired immune deficiency syndrome B20 ; Screening examination for sexually transmitted disease Z11.3 ; Depression with anxiety F41.8 ; Other chronic pain G89.29 and Dermatitis L30.9 [facility] [address] [place] [address] May, [facility] [address] [facility] [place] [address] May, [facility] [address] [facility] [place] [address] May, [facility] [address] [facility] [place] [address] May, Backache M54.9 [facility] [address] [facility] [place] [address] May, Rash and other nonspecific skin eruption R21 [facility] [address] [facility] [place] [address] Apr, [facility] [address] [facility] [place] [address] Apr, [facility] [address] [facility] [place] [address] Apr, Other chronic pain G89.29 [facility] [address] [facility] [place] [address] Apr, [facility] [address] [facility] [place] [address] Apr, [facility] [address] [facility] [place] [address] Apr, [facility] [address] [facility] [place] [address] Apr, [facility] [address] [place] [address] Apr, [facility] [address] [facility] [place] [address] Apr, [facility] [address] [facility] [place] [address] Apr, [facility] [address] [facility] [place] [address] Apr, [facility] [address] [facility] [place] [address] Apr, [facility] [address] [place] [address] Apr, [facility] [address] [place] [address] Apr, Other chronic pain G89.29 ; Generalized anxiety disorder F41.1 ; Nausea R11.0 and AIDS B20 [facility] [address] [place] [address] Apr, [facility] [address] [place] [address] Apr, Generalized anxiety disorder F41.1 [facility] [address] [place] [address] Apr, [facility] [address] [place] [address] Apr, Other chronic pain G89.[address] [address] Mar, [facility] [address] [place] [phone] Mar, intermediate (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 Z79.891 ; Bipolar affective disorder F31.9 ; Smoking F17.200 ; Generalized anxiety disorder F41.1 ; Influenza vaccine administered Z23 and AIDS B20 [address] [address] Mar, Other chronic pain G89.[address] [address] Mar, Generalized anxiety disorder F41.[address] [address] Mar, [facility] [address] [place] [address] Mar, Asymptomatic HIV infection Z21 [address] [address] Mar, Other chronic pain G89.[address] [address] Feb, [address] [address] Feb, [address] [address] Feb, [facility] [address] [place] [address] Feb, [facility] [address] [place] [address] Feb, [facility] [address] [place] [address] Jan, Other chronic pain G89.29 and Nausea & vomiting R11.2 [facility] [address] [place] [address] Jan, Other chronic pain G89.29 [facility] [address] [place] [address] Dec, [facility] [address] [place] [address] Dec, Other chronic pain G89.29 ; Asymptomatic HIV infection Z21 ; Intrinsic asthma J45.909 ; Bipolar affective disorder F31.9 ; Noncompliance Z91.19 ; Migraine G43.909 ; Tobacco use disorder Z72.0 ; GERD (gastroesophageal reflux disease) K21.9 ; Backache M54.9 and Generalized anxiety disorder F41.1 [facility] [address] [place] [address] Nov, [facility] [address] [place] [address] Nov, [address] [address] Oct, Other chronic pain 338.29 [facility] [address] [place] [address] Oct, [facility] [address] [place] [address] Oct, Unspecified backache 724.5 and Dysphagia 787.20 [facility] [address] [place] [address] Sep, Other chronic pain 338.[address] [address] Sep, [address] [place] [address] 30 Aug, 2014 URI (upper respiratory infection) 465.9 and Diarrhea 787.[address] [address] Aug, [address] [address] Aug, Other chronic pain 338.[address] [address] Aug, Other chronic pain 338.29 and Generalized anxiety disorder 300.[address] [address] Aug, [address] [address] July, Other chronic pain 338.29 [facility] [address] [place] [id number] July, Nondependent tobacco use disorder 305.1 ; Unspecified backache 724.5 ; Other chronic pain 338.29 ; Abdominal pain, unspecified site 789.00 ; intermediate (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 V58.69 and Acquired immune deficiency syndrome [address] [address] July, Other chronic pain 338.[address] [address] Jun, Other chronic pain 338.[address] [address] Jun, [address] [address] Jun, Other chronic pain 338.[address] [address] Jun, URI (upper respiratory infection) 465.[address] [address] Jun, Generalized anxiety disorder 300.02 and Seasonal allergies 477.[address] [address] Jun, Generalized anxiety disorder 300.02 [facility] [address] [place] [address] May, Other chronic pain 338.[address] [address] May, Other chronic pain 338.29 and Generalized anxiety disorder 300.02 [facility] [address] [place] [address] Apr, Asthma, intrinsic 493.10 and Acute upper respiratory infections of other multiple sites 465.8 [facility] [address] [place] [address] Apr, [facility] [address] [facility] [address] [place] [id number] Apr, Depressive disorder 311 [facility] [address] [place] [address] Apr, Other chronic pain 338.[address] [address] Apr, [facility] [address] [place] [address] Apr, Other chronic pain 338.[address] [address] Mar, Acute upper respiratory infections of unspecified site 465.9 [facility] [address] [place] [phone] Mar, Migraine 346.90 ; Nondependent tobacco use disorder 305.1 ; Esophageal reflux 530.81 ; Unspecified backache 724.5 ; Abdominal pain, generalized 789.07 ; Flatulence, eructation, and gas pain 787.3 ; Asymptomatic human immunodeficiency virus (HIV) infection status V08 ; Dyspepsia and other specified disorders of function of stomach 536.8 ; Nausea alone 787.02 and Asthma 493.[address] [address] Mar, Other chronic pain 338.[address] [address] Feb, Other chronic pain 338.29 and Generalized anxiety disorder 300.02 [facility] [address] [place] [id number] Feb, Abdominal pain, generalized 789.07 [facility] [address] [place] [address] Jan, Abdominal pain, generalized 789.07 [facility] [address] [place] [phone] Dec, [facility] [address] [place] [address] Dec, [facility] [address] [place] [address] Dec, Unspecified backache 724.5 [facility] [address] [place] [phone] Dec, [facility] [address] [place] [phone] Nov, [facility] [address] [id number] Nov, [facility] [address] [place], [place] [id number] Nov, Bipolar disorder, unspecified 296.80 ; Abdominal pain, generalized 789.07 ; Generalized anxiety disorder 300.02 ; Nausea alone 787.02 ; Flu vaccine need V04.81 and Human immunodeficiency virus (HIV) disease 042 [facility] [address] [place] [address] Nov, [facility] [address] [place] [phone] Oct, [facility] [address] [facility] [address] [place] [phone] Oct, [facility] [address] [id number] Aug, [facility] [address] [place] [address] Jun, [facility] [address] [place] [phone] Mar, [facility] [address] [place] [phone] Oct, [facility] [address] [facility] [place] [address] July, [facility] [address] [facility] [place] [address] Jun, [facility] [address] [facility] [place] [address] May, [facility] [address] [facility] [place] [address] Mar, [facility] [address] [facility] [place] [address] Feb, [facility] [address] [facility] [place] [address] Nov, [facility] [address] [facility] [place] [address] Oct, [facility] [address] [facility] [place] [address] Aug, [facility] [address] [facility] [place] [address] May, [facility] [address] [facility] [place] [place] [address] Mar, IMMUNIZATIONS No Known Immunizations SOCIAL HISTORY [...]
--- OUTSIDE RECORDS SUMMARY | 2017-08-18 14:44 | XMS REPORT ---
Author Dulce Clark [facility] Address [address] [place], [place] [id number] Care Team Providers Care Hog Cooler Name Role Phone Dulce Olvera Unavailable PROBLEMS Type Condition ICD9-CM Code [id number] Code Onset Dates Condition Status SNOMED Code Problem GERD (gastroesophageal reflux disease) K21.9 Active 245594278 Problem Backache M54.9 Active 029277284 Problem Intrinsic asthma J45.909 Active 794276590 Problem Mixed hyperlipidemia E78.2 Active 104801666 Problem Migraine G43.909 Active 33347535 Problem Generalized anxiety disorder F41.1 Active 20327503 Problem Mood swings F39 Active 04666574 Problem Wheezing on auscultation R06.2 Active 129371645 Problem care home (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 Z79.891 Active 355724194 Problem Bipolar affective disorder F31.9 Active 23774836 Problem Acquired immune deficiency syndrome B20 Active 21812064 Problem Nicotine dependence, cigarettes, uncomplicated F17.210 Active [id number] ALLERGIES No Information SOCIAL HISTORY Never Assessed [...]
--- OUTSIDE RECORDS SUMMARY | 2017-08-18 14:44 | XMS REPORT ---
Author Author Salome Solis [facility] Address [address] [place], [place] [id number] Care Team Providers Care Green Ware Caster Name Role Phone Salome Solis Unavailable PROBLEMS Type Condition ICD9-CM Code [id number] Code Onset Dates Condition Status SNOMED Code Problem Generalized anxiety disorder F41.1 Active 72676632 Problem Intrinsic asthma J45.909 Active 394509426 Problem GERD (gastroesophageal reflux disease) K21.9 Active 021533076 Problem Mixed hyperlipidemia E78.2 Active 955474727 Problem Migraine G43.909 Active 13125300 Problem Wheezing on auscultation R06.2 Active 801343935 Problem Acquired immune deficiency syndrome B20 Active 14716415 Problem Bipolar affective disorder F31.9 Active 91617916 Problem Backache M54.9 Active 291503976 Problem Nicotine dependence, cigarettes, uncomplicated F17.210 Active 02556302 Problem 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
--- OUTSIDE RECORDS SUMMARY | 2017-08-18 14:45 | XMS REPORT ---
Author Dulce Olvera [facility] Address [address], [place] [id number] Care Team Providers Care Nuclear Medicine Medical Director Name Role Phone Dulce Olvera Unavailable PROBLEMS Type Condition ICD9-CM Code XVE01-PC Code Onset Dates Condition Status SNOMED Code Problem Bipolar affective disorder F31.9 Active 67568964 Problem Nicotine dependence, cigarettes, uncomplicated F17.210 Active 33903585 Problem senior care (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 Z79.891 Active 022473990 Problem Non-intractable cyclical vomiting with nausea G43.A0 Active 32483483 Problem Poor appetite R63.0 Active 73350908 Problem Wheezing on auscultation R06.2 Active 046618276 Problem Acquired immune deficiency syndrome B20 Active 21124964 Problem Other chronic pain G89.29 Active 56353916 Problem Mood swings F39 Active 05456585 Problem Generalized anxiety disorder F41.1 Active 06881949 Problem GERD (gastroesophageal reflux disease) K21.9 Active 091595091 Problem Mixed hyperlipidemia E78.2 Active 481632231 Problem Intrinsic asthma J45.909 Active 696279433 Problem Migraine G43.909 Active 65666348 Problem Backache M54.9 Active [id number] ALLERGIES No Information ENCOUNTERS Encounter Location Date Diagnosis [facility] [address] [place] [id number] Sep, [facility] [address] [place] [address] Jun, [facility] [address] [place] [address] Jun, [facility] [address] [place] [address] Jun, Other chronic pain G89.29 [facility] [address] [place] [address] Jun, [facility] [address] [place] [address] Jun, [facility] [address] [place] [address] Jun, [facility] [address] [place] [address] Jun, [facility] [address] [place] [address] Jun, 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 [address] [place] [address] Jun, [address] [address] May, Generalized abdominal pain R10.84 [facility] [address] [place] [address] May, [address] [address] Apr, AIDS B20 ; Generalized abdominal pain R10.[address] [facility] [address] [place] [address] Apr, Acute URI J06.[address] [address] Apr, [facility] [address] [place] [address] Apr, [facility] [address] [place] [id number] Apr, Acquired immune deficiency syndrome B20 ; senior care ( 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 Z79.891 and Migraine G43.909 [facility] [address] [place] [address] Mar, Dysmenorrhea N94.6 [facility] [address] [place] [address] Mar, [facility] [address] [place] [address] Mar, Generalized anxiety disorder F41.1 and Generalized abdominal pain R10.84 [facility] [address] [place] [address] Mar, [facility] [address] [place] [address] Mar, Generalized abdominal pain R10.84 and Generalized anxiety disorder F41.1 [facility] [address] [place] [address] Feb, [facility] [address] [place] [address] Feb, Generalized abdominal pain R10.84 [facility] [address] [place] [address] Jan, Nausea and vomiting R11.2 [facility] [address] [place] [address] Jan, [facility] [address] [place] [address] Jan, [facility] [address] [place] [address] Jan, [facility] [address] [place] [address] Jan, [facility] [address] [place] [address] Jan, [facility] [address] [place] [address] Jan, Mood swings F39 [facility] [address] [place] [address] 08 Jan, 2017 [facility] [address] [place] [address] Jan, [facility] [address] [place] [address] Jan, [facility] [address] [place] [address] Jan, Dysmenorrhea N94.6 [facility] [address] [place] [phone] Jan, Acquired immune deficiency syndrome B20 ; Generalized abdominal pain R10.84 and Refused influenza vaccine Z28.21 [facility] [address] [place] [address] Jan, [facility] [address] [address] Dec, Generalized abdominal pain R10.84 [facility] [address] [place] [address] Dec, Dysmenorrhea N94.6 [facility] [address] [address] Dec, Backache M54.9 [facility] [address] [address] Nov, Generalized abdominal pain R10.84 [facility] [address] [address] Nov, Generalized anxiety disorder F41.1 [facility] [address] [address] Nov, Dysmenorrhea N94.6 [facility] [address] [place] [address] Oct, [facility] [address] [place] [address] Oct, [facility] [address] [place] [address] Oct, [facility] [address] [place] [address] Oct, Generalized abdominal pain R10.84 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 [address] [place] [address] Oct, Oral candidiasis B37.0 [facility] [address] [place] [address] Oct, [facility] [address] [place] [address] Oct, Acute upper respiratory infection J06.9 [facility] [address] [place] [address] Oct, Acute upper respiratory infection J06.9 [facility] [address] [place] [address] Sep, Dysmenorrhea N94.6 [facility] [address] [place] [address] Sep, Generalized anxiety disorder F41.1 [facility] [address] [place] [address] Sep, Dysmenorrhea N94.6 [facility] [address] [place] [address] Sep, [facility] [address] [place] [address] Sep, Dysmenorrhea N94.6 [facility] [address] [place] [address] Aug, Acquired immune deficiency syndrome B20 [facility] [address] [place] [address] Aug, Generalized anxiety disorder F41.1 [facility] [address] [place] [address] Aug, [facility] [address] [place] [address] Aug, [facility] [address] [place] [address] Aug, [facility] [address] [place] [address] Aug, [facility] [address] [place] [address] Aug, [facility] [address] [place] [address] Aug, [facility] [address] [place] [address] Aug, [facility] [address] [place] [address] Aug, Acute opioid withdrawal F11.[address] [address] July, Upper respiratory infection J06.[address] [address] July, Backache M54.9 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 [address] [place] [address] Jun, Backache M54.[address] [address] Jun, Chronic pain G89.[address] [address] May, Backache M54.[address] [address] May, Backache M54.[address] [address] Apr, Cough R05 [facility] [address] [phone] Apr, Acquired immune deficiency syndrome B20 ; Screening examination for sexually transmitted disease Z11.3 ; Dermatitis L30.9 and Migraine with aura and with status migrainosus, not intractable G43.[address] [address] Apr, Backache M54.[address] [address] Mar, Intrinsic asthma J45.909 ; Nausea and vomiting R11.2 and AIDS B20 [address] [address] Mar, Backache M54.[address] [address] Feb, Chronic pain G89.[address] [address] Feb, Backache M54.[address] [address] Jan, [place] [facility], 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 [address] Jan, Asthma, intrinsic 493.[address] [address] Jan, [address] [address] Jan, [address] [address] Jan, Backache M54.[address] [address] Dec, Chronic pain G89.29 [facility] [address] [place] [phone] Dec, AIDS B20 ; Influenza vaccine needed Z23 ; Intrinsic asthma J45.909 ; Backache M54.9 ; Generalized anxiety disorder F41.1 ; Nicotine dependence, cigarettes, uncomplicated F17.210 and Mixed hyperlipidemia E78.2 [facility] [address] [place] [address] Dec, [facility] [address] [place] [address] Dec, Dysmenorrhea N94.6 [facility] [address] [place] [address] Dec, [facility] [address] [place] [address] 17 Dec, 2015 Depression with anxiety F41.8 and Backache M54.9 [facility] [address] [place] [address] Nov, [facility] [address] [place] [address] 19 Nov, 2015 Other chronic pain G89.29 [facility] [address] [place] [address] 18 Nov, 2015 Other chronic pain G89.29 [facility] [address] [place] [address] 18 Nov, 2015 [facility] [address] [place] [address] 14 Nov, 2015 Generalized anxiety disorder F41.1 [facility] [address] [place] [address] 06 Nov, 2015 [facility] [address] [place] [address] Nov, [facility] [address] [place] [address] 04 Nov, 2015 Chronic pain G89.29 [facility] [address] [place] [address] Oct, [facility] [address] [place] [address] Oct, Other chronic pain G89.29 [facility] [address] [place] [address] Oct, [facility] [address] [place] [address] Oct, [facility] [address] [place] [address] Oct, Nausea and vomiting R11.2 [facility] [address] [place] [address] Oct, Chronic pain G89.29 [facility] [address] [place] [address] Sep, [facility] [address] [place] [address] Sep, Acute upper respiratory infection, unspecified J06.9 [facility] [address] [place] [address] Sep, Upper respiratory infection J06.9 [facility] [address] [place] [address] Sep, [facility] [address] [place] [address] Sep, [facility] [address] [place] [address] Sep, Other chronic pain G89.29 [facility] [address] [place] [id number] Sep, AIDS B20 ; senior care (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 Z79.891 ; Smoking F17.200 ; Mixed hyperlipidemia E78.2 ; Chronic pain G89.[address] [facility] [address] [place] [address] Sep, [facility] [address] [place] [address] Sep, [facility] [address] [place] [address] Aug, [facility] [address] [place] [address] Aug, Other chronic pain G89.29 [facility] [address] [place] [address] Aug, Generalized anxiety disorder F41.[address] [address] July, Other chronic pain G89.29 [facility] [address] [place] [facility] [place] [address] July, Other chronic pain G89.29 [facility] [address] [place] [facility] [place] [address] July, [facility] [address] [place] [facility] [place] [address] Jun, Generalized anxiety disorder F41.1 [facility] [address] [place] [facility] [place] [address] Jun, [facility] [address] [place] [address] Jun, Other chronic pain G89.29 [facility] [address] [place] [facility] [place] [address] Jun, Rash and other nonspecific skin eruption R21 [facility] [address] [place] [address] Jun, [facility] [address] [place] [address] Jun, [facility] [address] [place] [address] Jun, [facility] [address] [place] [address] Jun, [facility] [address] [place] [facility] [place] [address] Jun, [facility] [address] [place] [address] Jun, [facility] [address] [place] [address] Jun, [facility] [address] [place] [address] Jun, Other chronic pain G89.29 [facility] [address] [place] [address] Jun, [facility] [address] [place] [address] Jun, [facility] [address] [place] [address] Jun, [facility] [address] [place] [address] Jun, [facility] [address] [place] [address] Jun, [facility] [address] [place] [address] Jun, [facility] [address] [place] [address] Jun, [facility] [address] [place] [address] Jun, [facility] [address] [place] [address] Jun, [facility] [address] [place] [address] Jun, Nausea and vomiting R11.2 [facility] [address] [place] [address] May, [facility] [address] [place] [address] May, Rash and other nonspecific skin eruption R21 [facility] [address] [place] [address] May, [facility] [address] [place] [address] May, [facility] [address] [place] [address] May, [facility] [address] [facility] [place] [address] May, [facility] [address] [place] [address] May, [facility] [address] [place] [phone] May, Acquired immune deficiency syndrome B20 ; Screening examination for sexually transmitted disease Z11.3 ; Depression with anxiety F41.8 ; Other chronic pain G89.29 and Dermatitis L30.9 [facility] [address] [place] [address] May, [facility] [address] [place] [facility] [place] [address] May, [facility] [address] [place] [address] May, [facility] [address] [place] [address] May, Backache M54.9 [facility] [address] [place] [address] May, Rash and other nonspecific skin eruption R21 [facility] [address] [place] [address] Apr, [facility] [address] [place] [address] Apr, [facility] [address] [place] [address] Apr, Other chronic pain G89.29 [facility] [address] [place] [address] Apr, [facility] [address] [place] [address] Apr, [facility] [address] [place] [address] Apr, [facility] [address] [place] [address] Apr, [facility] [address] [facility] [place] [address] Apr, [facility] [address] [place] [address] Apr, [facility] [address] [place] [address] Apr, [facility] [address] [place] [address] Apr, [facility] [address] [place] [address] Apr, [facility] [address] [facility] [place] [address] Apr, [facility] [address] [place] [address] Apr, Other chronic pain G89.29 ; Generalized anxiety disorder F41.1 ; Nausea R11.[address] [facility] [address] [place] [address] Apr, [facility] [address] [place] [address] Apr, Generalized anxiety disorder F41.1 [facility] [address] [place] [address] Apr, [facility] [address] [place] [address] Apr, Other chronic pain G89.[address] [address] Mar, [facility] [address] [place] [phone] Mar, senior care (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 Z79.891 ; Bipolar affective disorder F31.9 ; Smoking F17.200 ; Generalized anxiety disorder F41.1 ; Influenza vaccine administered Z23 and AIDS B20 [address] [address] Mar, Other chronic pain G89.[address] [address] Mar, Generalized anxiety disorder F41.[address] [address] Mar, [facility] [address] [place] [address] Mar, Asymptomatic HIV infection Z21 [address] [address] Mar, Other chronic pain G89.[address] [address] Feb, [address] [address] Feb, [address] [address] Feb, [facility] [address] [place] [address] Feb, [facility] [address] [place] [address] Feb, [facility] [address] [place] [address] Jan, Other chronic pain G89.29 and Nausea & vomiting R11.2 [facility] [address] [place] [address] Jan, Other chronic pain G89.29 [facility] [address] [place] [address] Dec, [facility] [address] [place] [address] Dec, Other chronic pain G89.29 ; Asymptomatic HIV infection Z21 ; Intrinsic asthma J45.909 ; Bipolar affective disorder F31.9 ; Noncompliance Z91.19 ; Migraine G43.909 ; Tobacco use disorder Z72.0 ; GERD (gastroesophageal reflux disease) K21.9 ; Backache M54.9 and Generalized anxiety disorder F41.1 [facility] [address] [place] [address] Nov, [facility] [address] [place] [address] Nov, [address] [address] Oct, Other chronic pain 338.29 [facility] [address] [place] [address] Oct, [facility] [address] [place] [address] Oct, Unspecified backache 724.[address] [facility] [address] [place] [address] Sep, Other chronic pain 338.[address] [address] Sep, [address] [place] [address] 30 Aug, 2014 URI (upper respiratory infection) 465.9 and Diarrhea 787.[address] [address] Aug, [address] [address] Aug, Other chronic pain 338.[address] [address] Aug, Other chronic pain 338.29 and Generalized anxiety disorder 300.[address] [address] Aug, [address] [address] July, Other chronic pain 338.29 [facility] [address] [place] [phone] July, Nondependent tobacco use disorder 305.1 ; Unspecified backache 724.5 ; Other chronic pain 338.29 ; Abdominal pain, unspecified site 789.00 ; senior care (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 V58.69 and Acquired immune deficiency syndrome [address] [address] July, Other chronic pain 338.[address] [address] Jun, Other chronic pain 338.[address] [address] Jun, [address] [address] Jun, Other chronic pain 338.[address] [address] Jun, URI (upper respiratory infection) 465.[address] [address] Jun, Generalized anxiety disorder 300.02 and Seasonal allergies 477.[address] [address] Jun, Generalized anxiety disorder 300.02 [facility] [address] [place] [address] May, Other chronic pain 338.[address] [address] May, Other chronic pain 338.29 and Generalized anxiety disorder 300.02 [facility] [address] [place] [address] Apr, Asthma, intrinsic 493.10 and Acute upper respiratory infections of other multiple sites 465.8 [facility] [address] [place] [address] Apr, [facility] [address] [facility] [address] [place] [id number] Apr, Depressive disorder 311 [facility] [address] [place] [address] Apr, Other chronic pain 338.[address] [address] Apr, [facility] [address] [place] [address] Apr, Other chronic pain 338.[address] [address] Mar, Acute upper respiratory infections of unspecified site 465.9 [facility] [address] [place] [id number] Mar, Migraine 346.90 ; Nondependent tobacco use disorder 305.1 ; Esophageal reflux 530.81 ; Unspecified backache 724.5 ; Abdominal pain, generalized 789.07 ; Flatulence, eructation, and gas pain 787.3 ; Asymptomatic human immunodeficiency virus (HIV) infection status V08 ; Dyspepsia and other specified disorders of function of stomach 536.8 ; Nausea alone 787.02 and Asthma 493.[address] [address] Mar, Other chronic pain 338.[address] [address] Feb, Other chronic pain 338.29 and Generalized anxiety disorder 300.02 [facility] [address] [place] [address] Feb, Abdominal pain, generalized 789.07 [facility] [address] [place] [address] Jan, Abdominal pain, generalized 789.07 [facility] [address] [place] [id number] Dec, [facility] [address] [place] [address] Dec, [facility] [address] [place] [address] Dec, Unspecified backache 724.[address] [facility] [address] [place] [phone] Dec, [facility] [address] [place] [phone] Nov, [facility] [address] [id number] Nov, [facility] [address] [place], [place] [id number] Nov, Bipolar disorder, unspecified 296.80 ; Abdominal pain, generalized 789.07 ; Generalized anxiety disorder 300.02 ; Nausea alone 787.02 ; Flu vaccine need V04.81 and Human immunodeficiency virus (HIV) disease 042 [facility] [address] [place] [address] Nov, [facility] [address] [place], [place] [id number] Oct, [facility] [address] [facility] [address] [place], [place] [id number] Oct, [facility] [address] [id number] Aug, [facility] [address] [place] [address] Jun, [facility] [address] [place] [phone] Mar, [facility] [address] [place] [phone] Oct, [facility] [address] [place] [facility] [place] [address] July, [facility] [address] [place] [facility] [place] [address] Jun, [facility] [address] [place] [facility] [place] [address] May, [facility] [address] [place] [address] Mar, [facility] [address] [place] [facility] [place] [address] Feb, [facility] [address] [place] [facility] [place] [address] Nov[facility] [address] [place] [facility] [place] [address] Oct, [facility] [address] [place] [facility] [place] [address] Aug, [facility] [address] [place] [facility] [place] [address] May, [facility] [address] [place] [facility] [place] [address] Mar, IMMUNIZATIONS No Known Immunizations SOCIAL HISTORY Never Assessed REASON FOR VISIT PLAN OF CARE VITAL SIGNS MEDICATIONS Unknown [...]
--- OUTSIDE RECORDS SUMMARY | 2017-08-18 14:46 | XMS REPORT ---
Author Dulce Olvera [facility] Address [address] [place] [id number] Care Team Providers Care Field Hauler Name Role Phone Dulce Olvera Unavailable PROBLEMS Type Condition ICD9-CM Code SWS54-ZX Code Onset Dates Condition Status SNOMED Code Problem GERD (gastroesophageal reflux disease) K21.9 Active 705478171 Problem Backache M54.9 Active 353470793 Problem Intrinsic asthma J45.909 Active 801920217 Problem Mixed hyperlipidemia E78.2 Active 035379848 Problem Migraine G43.909 Active 94966310 Problem Generalized anxiety disorder F41.1 Active 91280205 Problem Mood swings F39 Active 69432205 Problem Wheezing on auscultation R06.2 Active 421311941 Problem 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 Active 445850351 Problem Bipolar affective disorder F31.9 Active 29521628 Problem Acquired immune deficiency syndrome B20 Active 26770900 Problem Nicotine dependence, cigarettes, uncomplicated F17.210 Active 86215367 ALLERGIES No Information ENCOUNTERS Encounter Location Date Diagnosis [address] [id number] Jun, [address] [address] Apr, AIDS B20 ; Generalized abdominal pain R10.84 and Dysmenorrhea N94.[address] [address] Apr, Acute URI J06.[address] [address] Apr, [address] [address] Apr, [address] [id number] Apr, Acquired immune deficiency syndrome B20 ; termite control representative ( 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 Z79.891 and Migraine G43.909 [facility] [address] [place] [address] Mar, Dysmenorrhea N94.6 [facility] [address] [place] [address] Mar, [facility] [address] [place] [address] Mar, Generalized anxiety disorder F41.1 and Generalized abdominal pain R10.84 [facility] [address] [place] [address] Mar, [facility] [address] [place] [address] Mar, Generalized abdominal pain R10.84 and Generalized anxiety disorder F41.1 [facility] [address] [place] [address] Feb, [facility] [address] [place] [address] Feb, Generalized abdominal pain R10.84 [facility] [address] [place] [address] Jan, Nausea and vomiting R11.2 [facility] [address] [place] [address] Jan, [facility] [address] [place] [address] Jan, [facility] [address] [place] [address] Jan, [facility] [address] [place] [address] Jan, [facility] [address] [place] [address] Jan, [facility] [address] [place] [address] Jan, Mood swings F39 [facility] [address] [place] [address] 08 Jan, 2017 [facility] [address] [place] [address] Jan, [facility] [address] [place] [address] Jan, [facility] [address] [place] [address] Jan, Dysmenorrhea N94.6 [facility] [address] [place] [phone] Jan, Acquired immune deficiency syndrome B20 ; Generalized abdominal pain R10.84 and Refused influenza vaccine Z28.21 [facility] [address] [place] [address] Jan, [facility] [address] [place] [address] Dec, Generalized abdominal pain R10.84 [facility] [address] [place] [address] Dec, Dysmenorrhea N94.6 [facility] [address] [address] Dec, Backache M54.9 [facility] [address] [address] Nov, Generalized abdominal pain R10.84 [facility] [address] [address] Nov, Generalized anxiety disorder F41.1 [facility] [address] [address] Nov, Dysmenorrhea N94.6 [facility] [address] [place] [address] Oct, [facility] [address] [place] [address] Oct, [facility] [address] [place] [address] Oct, [facility] [address] [place] [address] Oct, Generalized abdominal pain R10.84 [facility] [address] [place] [phone] Oct, Acquired immune deficiency syndrome B20 ; termite control representative 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 Z79.891 ; Bipolar affective disorder F31.9 ; Generalized anxiety disorder F41.1 ; Backache M54.9 ; Mixed hyperlipidemia E78.2 ; Nicotine dependence, cigarettes, uncomplicated F17.210 and Wheezing on auscultation R06.[address] [facility] [address] [place] [address] Oct, Oral candidiasis B37.0 [facility] [address] [place] [address] Oct, [facility] [address] [place] [address] Oct, Acute upper respiratory infection J06.[address] [facility] [address] [place] [address] Oct, Acute upper respiratory infection J06.[address] [facility] [address] [place] [address] Sep, Dysmenorrhea N94.6 [facility] [address] [place] [address] Sep, Generalized anxiety disorder F41.[address] [facility] [address] [place] [address] Sep, Dysmenorrhea N94.[address] [facility] [address] [place] [address] Sep, [facility] [address] [place] [address] Sep, Dysmenorrhea N94.[address] [facility] [address] [place] [address] Aug, Acquired immune deficiency syndrome B20 [facility] [address] [place] [address] Aug, Generalized anxiety disorder F41.[address] [facility] [address] [place] [address] Aug, [facility] [address] [place] [address] Aug, [facility] [address] [place] [address] Aug, [facility] [address] [place] [address] Aug, [facility] [address] [place] [address] Aug, [facility] [address] [place] [address] Aug, [facility] [address] [place] [address] Aug, 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 [address] [place] [address] Jun, Backache M54.[address] [facility] [address] [place] [address] Jun, Chronic pain G89.[address] [address] May, Backache M54.[address] [address] May, Backache M54.[address] [address] Apr, Cough R05 [facility] [address] [phone] Apr, Acquired immune deficiency syndrome B20 ; Screening examination for sexually transmitted disease Z11.3 ; Dermatitis L30.9 and Migraine with aura and with status migrainosus, not intractable G43.[address] [address] Apr, Backache M54.[address] [address] Mar, Intrinsic asthma J45.909 ; Nausea and vomiting R11.2 and AIDS B20 [address] [address] Mar, Backache M54.[address] [address] Feb, Chronic pain G89.[address] [address] Feb, Backache M54.[address] [address] Jan, [facility], 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 [address] Jan, Asthma, intrinsic 493.[address] [address] Jan, [address] [address] Jan, [address] [address] Jan, Backache M54.[address] [address] Dec, Chronic pain G89.29 [facility] [address] [place] [phone] Dec, AIDS B20 ; Influenza vaccine needed Z23 ; Intrinsic asthma J45.909 ; Backache M54.9 ; Generalized anxiety disorder F41.1 ; Nicotine dependence, cigarettes, uncomplicated F17.210 and Mixed hyperlipidemia E78.2 [facility] [address] [place] [address] Dec, [facility] [address] [place] [address] Dec, Dysmenorrhea N94.6 [facility] [address] [place] [address] Dec, [facility] [address] [place] [address] 17 Dec, 2015 Depression with anxiety F41.8 and Backache M54.9 [facility] [address] [place] [address] Nov, [facility] [address] [place] [address] 19 Nov, 2015 Other chronic pain G89.29 [facility] [address] [place] [address] 18 Nov, 2015 Other chronic pain G89.29 [facility] [address] [place] [address] 18 Nov, 2015 [facility] [address] [place] [address] 14 Nov, 2015 Generalized anxiety disorder F41.1 [facility] [address] [place] [address] 06 Nov, 2015 [facility] [address] [place] [address] Nov, [facility] [address] [place] [address] 04 Nov, 2015 Chronic pain G89.29 [facility] [address] [place] [address] Oct, [facility] [address] [place] [address] Oct, Other chronic pain G89.29 [facility] [address] [place] [address] Oct, [facility] [address] [place] [address] Oct, [facility] [address] [place] [address] Oct, Nausea and vomiting R11.[address] [facility] [address] [place] [address] Oct, Chronic pain G89.[address] [facility] [address] [place] [address] Sep, [facility] [address] [place] [address] Sep, Acute upper respiratory infection, unspecified J06.[address] [facility] [address] [place] [address] Sep, Upper respiratory infection J06.[address] [facility] [address] [place] [address] Sep, [facility] [address] [place] [address] Sep, [facility] [address] [place] [address] Sep, Other chronic pain G89.29 [facility] [address] [place] [id number] Sep, AIDS B20 ; retirement (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 Z79.891 ; Smoking F17.200 ; Mixed hyperlipidemia E78.2 ; Chronic pain G89.29 and Edema R60.[address] [facility] [address] [place] [address] Sep, [facility] [address] [place] [address] Sep, [facility] [address] [place] [address] Aug, [facility] [address] [place] [address] Aug, Other chronic pain G89.[address] [facility] [address] [place] [address] Aug, Generalized anxiety disorder F41.[address] [address] July, Other chronic pain G89.29 [facility] [address] [place] [facility] [place] [address] July, Other chronic pain G89.29 [facility] [address] [place] [facility] [place] [address] July, [facility] [address] [place] [facility] [place] [address] Jun, Generalized anxiety disorder F41.1 [facility] [address] [place] [facility] [place] [address] Jun, [facility] [address] [place] [facility] [place] [address] Jun, Other chronic pain G89.29 [facility] [address] [place] [facility] [place] [address] Jun, Rash and other nonspecific skin eruption R21 [facility] [address] [place] [facility] [address] Jun, [facility] [address] [place] [facility] [address] Jun, [facility] [address] [place] [facility] [place] [address] Jun, [facility] [address] [place] [facility] [address] Jun, [facility] [address] [place] [facility] [address] Jun, [facility] [address] [place] [facility] [place] [address] Jun, [facility] [address] [place] [facility] [place] [address] Jun, [facility] [address] [place] [facility] [place] [address] Jun, Other chronic pain G89.29 [facility] [address] [place] [facility] [place] [address] Jun, [facility] [address] [place] [facility] [place] [address] Jun, [facility] [address] [place] [facility] [address] Jun, [facility] [address] [place] [facility] [place] [address] Jun, [facility] [address] [place] [facility] [address] Jun, [facility] [address] [place] [facility] [address] Jun, [facility] [address] [place] [facility] [address] Jun, [facility] [address] [place] [facility] [address] Jun, [facility] [address] [place] [facility] [address] Jun, [facility] [address] [place] [facility] [place] [address] Jun, Nausea and vomiting R11.2 [facility] [address] [place] [address] May, [facility] [address] [place] [address] May, Rash and other nonspecific skin eruption R21 [facility] [address] [place] [address] May, [facility] [address] [place] [address] May, [facility] [address] [place] [address] May, [facility] [address] [place] [address] May, [facility] [address] [place] [address] May, [facility] [address] [place] [phone] 18 May, 2015 Acquired immune deficiency syndrome B20 ; Screening examination for sexually transmitted disease Z11.3 ; Depression with anxiety F41.8 ; Other chronic pain G89.29 and Dermatitis L30.9 [facility] [address] [place] [facility] [place] [address] 14 May, 2015 [facility] [address] [place] [facility] [address] 14 May, 2015 [facility] [address] [place] [facility] [address] May, [facility] [address] [place] [facility] [address] May, Backache M54.9 [facility] [address] [place] [facility] [place] [address] May, Rash and other nonspecific skin eruption R21 [facility] [address] [place] [facility] [place] [address] Apr, [facility] [address] [place] [facility] [place] [address] Apr, [facility] [address] [place] [facility] [place] [address] Apr, Other chronic pain G89.29 [facility] [address] [place] [facility] [place] [address] Apr, [facility] [address] [place] [facility] [place] [address] Apr, [facility] [address] [place] [facility] [address] Apr, [facility] [address] [place] [facility] [address] Apr, [facility] [address] [place] [address] Apr, [facility] [address] [place] [facility] [address] Apr, [facility] [address] [place] [facility] [place] [address] Apr, [facility] [address] [place] [facility] [place] [address] Apr, [facility] [address] [place] [facility] [address] Apr, [facility] [address] [place] [address] Apr, [facility] [address] [place] [address] Apr, Other chronic pain G89.29 ; Generalized anxiety disorder F41.1 ; Nausea R11.0 and AIDS B20 [facility] [address] [place] [address] Apr, [facility] [address] [place] [address] Apr, Generalized anxiety disorder F41.[address] [facility] [address] [place] [address] Apr, [address] [address] Apr, Other chronic pain G89.[address] [address] Mar, [facility] [address] [place] [phone] Mar, retirement (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 Z79.891 ; Bipolar affective disorder F31.9 ; Smoking F17.200 ; Generalized anxiety disorder F41.1 ; Influenza vaccine administered Z23 and AIDS B20 [address] [address] Mar, Other chronic pain G89.[address] [address] Mar, Generalized anxiety disorder F41.[address] [address] Mar, [address] [address] Mar, Asymptomatic HIV infection Z21 [address] [address] Mar, Other chronic pain G89.[address] [address] Feb, [address] [address] Feb, [address] [address] Feb, [facility] [address] [place] [address] Feb, [facility] [address] [place] [address] Feb, [facility] [address] [place] [address] Jan, Other chronic pain G89.29 and Nausea & vomiting R11.[address] [facility] [address] [place] [address] Jan, Other chronic pain G89.[address] [address] Dec, [address] [address] Dec, Other chronic pain G89.29 ; Asymptomatic HIV infection Z21 ; Intrinsic asthma J45.909 ; Bipolar affective disorder F31.9 ; Noncompliance Z91.19 ; Migraine G43.909 ; Tobacco use disorder Z72.0 ; GERD (gastroesophageal reflux disease) K21.9 ; Backache M54.9 and Generalized anxiety disorder F41.[address] [address] Nov, [address] [address] Nov, [address] [address] Oct, Other chronic pain 338.[address] [address] Oct, [address] [address] Oct, Unspecified backache 724.5 and Dysphagia 787.[address] [address] Sep, Other chronic pain 338.[address] [address] Sep, [address] [address] 30 Aug, 2014 URI (upper respiratory infection) 465.9 and Diarrhea 787.[address] [address] Aug, [address] [address] Aug, Other chronic pain 338.[address] [address] Aug, Other chronic pain 338.29 and Generalized anxiety disorder 300.[address] [address] Aug, [address] [address] July, Other chronic pain 338.29 [facility] [address] [place] [id number] July, Nondependent tobacco use disorder 305.1 ; Unspecified backache 724.5 ; Other chronic pain 338.29 ; Abdominal pain, unspecified site 789.00 ; retirement (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 V58.69 and Acquired immune deficiency syndrome [address] [address] July, Other chronic pain 338.[address] [address] Jun, Other chronic pain 338.[address] [address] Jun, [address] [address] Jun, Other chronic pain 338.[address] [address] Jun, URI (upper respiratory infection) 465.[address] [address] Jun, Generalized anxiety disorder 300.02 and Seasonal allergies 477.[address] [address] Jun, Generalized anxiety disorder 300.[address] [facility] [address] [place] [address] May, Other chronic pain 338.[address] [address] May, Other chronic pain 338.29 and Generalized anxiety disorder 300.[address] [address] Apr, Asthma, intrinsic 493.10 and Acute upper respiratory infections of other multiple sites 465.[address] [address] Apr, [facility] [address] [facility] [address] [place] [id number] Apr, Depressive disorder [address] [facility] [address] [place] [address] Apr, Other chronic pain 338.[address] [address] Apr, [facility] [address] [place] [address] Apr, Other chronic pain 338.[address] [address] Mar, Acute upper respiratory infections of unspecified site 465.9 [facility] [address] [place] [phone] Mar, Migraine 346.90 ; Nondependent tobacco use disorder 305.1 ; Esophageal reflux 530.81 ; Unspecified backache 724.5 ; Abdominal pain, generalized 789.07 ; Flatulence, eructation, and gas pain 787.3 ; Asymptomatic human immunodeficiency virus (HIV) infection status V08 ; Dyspepsia and other specified disorders of function of stomach 536.8 ; Nausea alone 787.02 and Asthma 493.[address] [address] Mar, Other chronic pain 338.[address] [address] Feb, Other chronic pain 338.29 and Generalized anxiety disorder 300.[address] [facility] [address] [place] [address] Feb, Abdominal pain, generalized 789.[address] [facility] [address] [place] [address] Jan, Abdominal pain, generalized 789.07 [facility] [address] [place] [phone] Dec, [facility] [address] [place] [address] Dec, [facility] [address] [place] [address] Dec, Unspecified backache 724.[address] [facility] [address] [place] [address] Dec, [facility] [address] [place] [address] Nov, [facility] [address] [id number] Nov, [facility] [address] [place], [place] [phone] Nov, Bipolar disorder, unspecified 296.80 ; Abdominal pain, generalized 789.07 ; Generalized anxiety disorder 300.02 ; Nausea alone 787.02 ; Flu vaccine need V04.81 and Human immunodeficiency virus (HIV) disease 0[address] [facility] [address] [place] [phone] Nov, [facility] [address] [place], [place] [phone] Oct, [facility] [address] [facility] [address] [place], [place] [phone] Oct, [facility] [address] [id number] Aug, [facility] [address] [place] [address] Jun, [facility] [address] [place] [phone] Mar, [facility] [address] [place] [phone] Oct, [facility] [address] [place] [facility] [address] July, [facility] [address] [place] [facility] [address] Jun, [facility] [address] [place] [facility] [address] May, [facility] [address] [place] [facility] [address] Mar, [facility] [address] [place] [facility] [address] Feb, [facility] [address] [place] [facility] [address] Nov, [facility] [address] [place] [facility] [place] [address] Oct, [facility] [address] [place] [facility] [address] Aug, [facility] [address] [place] [facility] [address] May, [facility] [address] [place] [facility] [address] Mar, IMMUNIZATIONS No Known Immunizations SOCIAL HISTORY Never Assessed REASON FOR VISIT Call mi PLAN OF CARE VITAL SIGNS MEDICATIONS Medication Instructions Dosage Frequency Start Date End Date Duration Status ProAir HFA 108 (90 Base) MCG/ACT Inhalation every 4 hrs 2 puffs as needed 4h 25 Sep, 2015 30 days Active Marinol 10 MG Orally Twice a day 1 capsule before lunch and supper 12h Jun, 30 days Active Hydrochlorothiazide 25 MG Orally Once a day 1 tablet in the morning 24h July, 30 day(s) Active Doxycycline Hyclate 100 MG Orally every 12 hrs 1 tablet 12h Apr, May, 7 days Active Promethazine HCl 25 MG Orally three times a day 1 tablet as needed 8h 20 Mar, 2016 30 day(s) Active Dicyclomine HCl 20 MG Orally three times a day 1 tablet 8h July, 30 day(s) Active Methocarbamol 750 TAKE ONE TABLET BY MOUTH EVERY 8 HOURS FOR 10 DAYS 10 Active Diflucan 150 Orally Once a day 1 tablet 24h 5 Active Methocarbamol 750 MG Orally every 8 hrs 1 tablet 8h 18 Dec, 2015 10 days Active Dapsone 100 MG Orally Once a day 1 tablet 24h 24 Apr, 2015 30 days Active Tramadol HCl 50 MG Orally every 4-6 hrs 1 tablet as needed Sep, 30 days Active Clonidine HCl 0.1 MG Orally every 4 hrs 1 tablet as needed do not take is BP is <100/60 4h 08 Aug, 2016 Active [facility] Omeprazole 20 MG Orally Once a day 1 tablet 24h Mar, 30 day (s) Active Stribild [phone] MG Orally Once a day 1 tablet 24h 30 Aug, 2016 30 days Active Hydrocodone-Acetaminophen 10-325 MG Orally every 6 hrs 1 tablet as needed 6h Oct, 30 days Active Xanax 1 MG Orally Twice a day 1 tablet as needed 12h Sep, 30 days Active Ventolin HFA 108 (90 Base) MCG/ACT Inhalation every 4 hrs 2 puffs as needed 4h 11 Oct, 2016 30 days Active Zofran 8 mg TAKE ONE TABLET BY MOUTH EVERY 8 HOURS FOR 10 DAYS 10 Active HydrOXYzine HCl 25 MG Orally every 12 hrs 1 tablet 12h Jan, 30 day(s) Active RESULTS No Results PROCEDURES [...]
--- OUTSIDE RECORDS SUMMARY | 2017-08-18 14:46 | XMS REPORT ---
Author Dulce Clark [facility] Address [address] [place], [place] [id number] Care Team Providers Care Circular Knitter Helper Name Role Phone Dulce Olvera Unavailable PROBLEMS Type Condition ICD9-CM Code [id number] Code Onset Dates Condition Status SNOMED Code Problem GERD (gastroesophageal reflux disease) K21.9 Active 779650170 Problem Backache M54.9 Active 282755729 Problem Intrinsic asthma J45.909 Active 521272136 Problem Mixed hyperlipidemia E78.2 Active 031361007 Problem Migraine G43.909 Active 60787220 Problem Generalized anxiety disorder F41.1 Active 48044905 Problem Mood swings F39 Active 78972150 Problem Wheezing on auscultation R06.2 Active 299680218 Problem jail (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 Z79.891 Active 435203518 Problem Bipolar affective disorder F31.9 Active 19854621 Problem Acquired immune deficiency syndrome B20 Active 31361985 Problem Nicotine dependence, cigarettes, uncomplicated F17.210 Active 43461170 ALLERGIES No Information SOCIAL HISTORY Never Assessed [...]
--- OUTSIDE RECORDS SUMMARY | 2017-08-18 14:47 | XMS REPORT ---
Author Author Salome Solis [facility] Address [address], [place] [id number] Care Team Providers Care Drug Safety Data Management Specialist Name Role Phone Salome Solis Unavailable PROBLEMS Type Condition ICD9-CM Code [id number] Code Onset Dates Condition Status SNOMED Code Problem Generalized anxiety disorder F41.1 Active 26056903 Problem Intrinsic asthma J45.909 Active 621689150 Problem GERD (gastroesophageal reflux disease) K21.9 Active 263421209 Problem Mixed hyperlipidemia E78.2 Active 339189112 Problem Migraine G43.909 Active 55116590 Problem Wheezing on auscultation R06.2 Active 417280725 Problem Acquired immune deficiency syndrome B20 Active 74283472 Problem Bipolar affective disorder F31.9 Active 14857392 Problem Backache M54.9 Active 289843678 Problem Nicotine dependence, cigarettes, uncomplicated F17.210 Active 93770350 Problem correction (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 Z79.891 Active 413236745 ALLERGIES No Information SOCIAL HISTORY Never Assessed PLAN OF CARE VITAL SIGNS MEDICATIONS Medication Instructions Dosage Frequency Start Date End Date Duration Status Marinol 10 MG Orally Twice a day 1 capsule before lunch and supper 12h Jun, 30 days Active Azithromycin 250 MG Orally Once a day 1 tab 24h Mar, 30 days Active Promethazine HCl 25 MG Orally three times a day 1 tablet as needed 8h Mar, 30 day(s) Active ProAir HFA 108 (90 Base) MCG/ACT Inhalation every 4 hrs 2 puffs as needed 4h Sep, 30 days Active Hydrochlorothiazide 25 MG Orally [...] 1 tablet 8h July, 30 day(s) Active Dapsone 100 MG [...] needed 6h Sep, Dec, 15 days Active Ventolin HFA 108 (90 Base) MCG/ACT Inhalation every 4 hrs 2 puffs as needed 4h Oct, 30 days Active Methocarbamol 750 MG Orally every 8 hrs 1 tablet 8h Dec, 10 days Active Stribild [phone] MG Orally Once a day 1 tablet 24h 30 Aug, 2016 30 days Active RESULTS No Results PROCEDURES [...]
--- OUTSIDE RECORDS SUMMARY | 2017-08-18 14:47 | XMS REPORT ---
Author Author Salome Solis [facility] Address [address] [place], [place] [id number] Care Team Providers Care Marble Mason Name Role Phone Salome Solis Unavailable PROBLEMS Type Condition ICD9-CM Code MWS16-LO Code Onset Dates Condition Status SNOMED Code Problem GERD (gastroesophageal reflux disease) K21.9 Active 570852814 Problem Backache M54.9 Active 138401379 Problem Intrinsic asthma J45.909 Active 734322438 Problem Mixed hyperlipidemia E78.2 Active 417742273 Problem Migraine G43.909 Active 11899046 Problem Generalized anxiety disorder F41.1 Active 71231119 Problem Mood swings F39 Active 35750572 Problem Wheezing on auscultation R06.2 Active 290996660 Problem group home (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 Z79.891 Active 898066276 Problem Bipolar affective disorder F31.9 Active 52683390 Problem Acquired immune deficiency syndrome B20 Active 64543455 Problem Nicotine dependence, cigarettes, uncomplicated F17.210 Active 28593746 ALLERGIES No Information SOCIAL HISTORY Never Assessed PLAN OF CARE VITAL SIGNS MEDICATIONS Medication Instructions Dosage Frequency Start Date End Date Duration Status Methocarbamol 750 MG Orally every 8 hrs 1 tablet 8h 18 Dec, 2015 10 days Active Tramadol HCl 50 MG Orally every 6 hrs 2 tablet as needed 6h Sep, 15 days Active Diflucan 150 Orally Once a day 1 tablet 24h 5 Active Stribild [phone] MG Orally Once a day 1 tablet 24h Aug, 30 days Active ProAir HFA 108 (90 Base) MCG/ACT Inhalation every 4 hrs 2 puffs as needed 4h Sep, 30 days Active Dapsone 100 MG Orally Once a day 1 tablet 24h 24 Apr, 2015 30 days Active Dicyclomine HCl 20 MG Orally three times a day 1 tablet 8h July, 30 day(s) Active Marinol 10 MG Orally Twice a day 1 capsule before lunch and supper 12h Jun, 30 days Active [facility] Omeprazole 20 MG Orally Once a day 1 tablet 24h 29 Mar, 2015 30 day (s) Active HydrOXYzine HCl 25 MG Orally every 12 hrs 1 tablet 12h Jan, 30 day(s) Active Clonidine HCl 0.1 MG Orally every 4 hrs 1 tablet as needed do not take is BP is <100/60 4h 08 Aug, 2016 Active Azithromycin 250 MG Orally Once a day 1 tab 24h Mar, 30 days Active Hydrocodone-Acetaminophen 10-325 MG Orally every 6 hrs 1 tablet as needed 6h Oct, 30 days Active Ventolin HFA 108 (90 Base) MCG/ACT Inhalation every 4 hrs 2 puffs as needed 4h Oct, 30 days Active Promethazine HCl 25 MG Orally three times a day 1 tablet as needed 8h Mar, 30 day(s) Active Hydrochlorothiazide 25 MG Orally Once a day 1 tablet in the morning 24h July, 30 day(s) Active Zofran 8 TAKE [...]
--- OUTSIDE RECORDS SUMMARY | 2017-08-18 14:47 | XMS REPORT ---
Author Author Salome Solis [facility] Address [address] [place], [place] [id number] Care Team Providers Care Medical Billing Service Name Role Phone Salome Solis Unavailable PROBLEMS Type Condition ICD9-CM Code NDL51-NQ Code Onset Dates Condition Status SNOMED Code Problem GERD (gastroesophageal reflux disease) K21.9 Active 426041398 Problem Backache M54.9 Active 948090990 Problem Intrinsic asthma J45.909 Active 781176416 Problem Mixed hyperlipidemia E78.2 Active 487249721 Problem Migraine G43.909 Active 74426606 Problem Generalized anxiety disorder F41.1 Active 39858869 Problem Mood swings F39 Active 41333088 Problem Wheezing on auscultation R06.2 Active 156524248 Problem assisted (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 Z79.891 Active 658127433 Problem Bipolar affective disorder F31.9 Active 61520474 Problem Acquired immune deficiency syndrome B20 Active 67770933 Problem Nicotine dependence, cigarettes, uncomplicated F17.210 Active 96979675 ALLERGIES No Information SOCIAL HISTORY Never Assessed [...]
--- OUTSIDE RECORDS SUMMARY | 2017-08-18 14:47 | XMS REPORT ---
Author Dulce Clark [facility] Address [address] [place], [place] [id number] Care Team Providers Care Charging Crane Operator Name Role Phone Dulce Olvera Unavailable PROBLEMS Type Condition ICD9-CM Code VHE06-IC Code Onset Dates Condition Status SNOMED Code Problem GERD (gastroesophageal reflux disease) K21.9 Active 576190413 Problem Backache M54.9 Active 965168112 Problem Intrinsic asthma J45.909 Active 683498375 Problem Mixed hyperlipidemia E78.2 Active 311197745 Problem Migraine G43.909 Active 54128414 Problem Generalized anxiety disorder F41.1 Active 27384363 Problem Mood swings F39 Active 89056242 Problem Wheezing on auscultation R06.2 Active 905614994 Problem correction (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 Z79.891 Active 154739665 Problem Bipolar affective disorder F31.9 Active 14554425 Problem Acquired immune deficiency syndrome B20 Active 55105108 Problem Nicotine dependence, cigarettes, uncomplicated F17.210 Active 48034776 ALLERGIES No Information SOCIAL HISTORY Never Assessed [...]
--- OUTSIDE RECORDS SUMMARY | 2017-08-18 14:47 | XMS REPORT ---
Author Author Zandra Watson [facility] Address [address] [place], [place] [id number] Care Team Providers Care Surgical Supply Assistant Name Role Phone Zandra Watson Unavailable PROBLEMS Type Condition ICD9-CM Code LFC54-HJ Code Onset Dates Condition Status SNOMED Code Problem Bipolar affective disorder F31.9 Active 69091296 Problem senior care (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 Z79.891 Active 201717611 Problem Intrinsic asthma J45.909 Active 361299334 Problem Acquired immune deficiency syndrome B20 Active 90889430 Problem Hyperglycemia R73.9 Active 12476569 Problem Dysmenorrhea N94.6 Active 464561434 Problem Nicotine dependence, cigarettes, uncomplicated F17.210 Active 81092034 Problem Localized edema R60.0 Active 095651499 Problem Dermatitis L30.9 Active 17553782 Problem Generalized anxiety disorder F41.1 Active 62056677 Problem Backache M54.9 Active 284776896 Problem GERD (gastroesophageal reflux disease) K21.9 Active 225139514 Problem Mixed hyperlipidemia E78.2 Active 432032181 Problem Migraine G43.909 Active 13202340 ALLERGIES Unknown Allergies SOCIAL HISTORY No smoking Hx information available PLAN OF CARE VITAL SIGNS MEDICATIONS Unknown Medications RESULTS No Results PROCEDURES No Known procedures IMMUNIZATIONS No Known Immunizations
--- OUTSIDE RECORDS SUMMARY | 2017-08-18 14:47 | XMS REPORT ---
Author Dulce Clark [facility] Address [address] [place], [place] [phone] Care Team Providers Care Orderly Name Role Phone Dulce Olvera Unavailable PROBLEMS Type Condition ICD9-CM Code RHR91-UL Code Onset Dates Condition Status SNOMED Code Problem Bipolar affective disorder F31.9 Active 19177811 Problem superintendent terminal (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 Z79.891 Active 494545099 Problem Intrinsic asthma J45.909 Active 193982010 Problem Acquired immune deficiency syndrome B20 Active 63149789 Problem Hyperglycemia R73.9 Active 56542838 Problem Dysmenorrhea N94.6 Active 608662433 Problem Nicotine dependence, cigarettes, uncomplicated F17.210 Active 94913548 Problem Localized edema R60.0 Active 060117132 Problem Dermatitis L30.9 Active 39814794 Problem Generalized anxiety disorder F41.1 Active 63544449 Problem Backache M54.9 Active 938775351 Problem GERD (gastroesophageal reflux disease) K21.9 Active 545969342 Problem Mixed hyperlipidemia E78.2 Active 322155999 Problem Migraine G43.909 Active 41429286 ALLERGIES Unknown Allergies SOCIAL HISTORY No smoking Hx information available PLAN OF CARE VITAL SIGNS MEDICATIONS Medication Instructions Dosage Frequency Start Date End Date Duration Status Marinol 10 MG Orally Twice a day 1 capsule before lunch and supper 12h Jun, 30 days Active Zofran 8 TAKE ONE TABLET BY MOUTH EVERY 8 HOURS FOR 10 DAYS 10 Active Promethazine HCl 25 MG Orally three times a day 1 tablet as needed 8h Mar, 30 day(s) Active Methocarbamol 750 MG Orally every 8 hrs 1 tablet 8h Dec, 10 days Active Azithromycin 250 MG Orally Once a day 1 tab 24h Mar, 30 days Active Hydrochlorothiazide 25 MG Orally Once a day 1 tablet in the morning 24h July, 30 day(s) Active Clonidine HCl 0.1 MG Orally every 4 hrs 1 tablet as needed do not take is BP is <100/60 4h Aug, Active Dapsone 100 MG Orally Once a day 1 tablet 24h Apr, 30 days Active Methocarbamol 750 Orally every 8 hrs 1 tablet 8h 10 Active Diflucan 150 MG Orally Once a day 1 tablet 24h Oct, Oct, 5 days Active Tramadol HCl 50 MG Orally every 6 hrs 2 tablet as needed 6h Sep, Oct, 15 days Active ProAir HFA 108 (90 Base) MCG/ACT Inhalation every 4 hrs 2 puffs as needed 4h Sep, 30 days Active [facility] Omeprazole 20 MG Orally Once a day 1 tablet 24h Mar, 30 day (s) Active Dicyclomine HCl 20 MG Orally three times a day 1 tablet 8h July, 30 day(s) Active Stribild [phone] MG Orally Once a day 1 tablet 24h Aug, 30 days Active RESULTS No Results PROCEDURES No Known procedures IMMUNIZATIONS No Known Immunizations
--- OUTSIDE RECORDS SUMMARY | 2017-08-18 14:47 | XMS REPORT ---
Author Author Zandra Watson [facility] Address [address] [place], [place] [id number] Care Team Providers Care Body Artist Name Role Phone Zandra Watson Unavailable PROBLEMS Type Condition ICD9-CM Code KST16-YP Code Onset Dates Condition Status SNOMED Code Problem Backache M54.9 Active 461266671 Problem Migraine G43.909 Active 67701559 Problem GERD (gastroesophageal reflux disease) K21.9 Active 923184182 Problem Mixed hyperlipidemia E78.2 Active 373130172 Problem Generalized anxiety disorder F41.1 Active 35343090 Problem Wheezing on auscultation R06.2 Active 557696359 Problem Acquired immune deficiency syndrome B20 Active 70284343 Problem Intrinsic asthma J45.909 Active 328887623 Problem Bipolar affective disorder F31.9 Active 50367896 Problem Nicotine dependence, cigarettes, uncomplicated F17.210 Active 33993145 Problem computer terminal operator (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 Z79.891 Active 479242205 ALLERGIES Unknown Allergies SOCIAL HISTORY No smoking Hx information available PLAN OF CARE VITAL SIGNS MEDICATIONS Unknown Medications RESULTS No Results PROCEDURES No Known procedures IMMUNIZATIONS No Known Immunizations
--- OUTSIDE RECORDS SUMMARY | 2017-08-18 14:48 | XMS REPORT ---
Author Author Zandra Watson [facility] Address [address] [place], [place] [id number] Care Team Providers Care Division Head Name Role Phone Zandra Watson Unavailable PROBLEMS Type Condition ICD9-CM Code WSZ88-OS Code Onset Dates Condition Status SNOMED Code Problem Backache M54.9 Active 072495147 Problem Migraine G43.909 Active 63653256 Problem GERD (gastroesophageal reflux disease) K21.9 Active 275437964 Problem Mixed hyperlipidemia E78.2 Active 123622706 Problem Generalized anxiety disorder F41.1 Active 90284577 Problem Wheezing on auscultation R06.2 Active 354275302 Problem Acquired immune deficiency syndrome B20 Active 92518317 Problem Intrinsic asthma J45.909 Active 121923292 Problem Bipolar affective disorder F31.9 Active 32728896 Problem Nicotine dependence, cigarettes, uncomplicated F17.210 Active 90832575 Problem halfway (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 Z79.891 Active 476476053 ALLERGIES Unknown Allergies SOCIAL HISTORY No smoking Hx information available PLAN OF CARE Activity Details Follow Up 3 Months Reason: Pending Test QMP Plus D/L (urine) VITAL SIGNS Height 65 in 2016-10-24 Weight 151 lbs 2016-10-24 Temperature 97.7 degrees Fahrenheit 2016-10-24 Heart Rate 84 /min 2016-10-24 Respiratory Rate 16 /min 2016-10-24 Oximetry 97 % 2016-10-24 BMI 25.12 kg/m2 2016-10-24 Blood pressure systolic 98 mm Hg 2016-10-24 Blood pressure diastolic 62 mm Hg 2016-10-24 MEDICATIONS Medication Instructions Dosage Frequency Start Date End Date Duration Status Ventolin HFA 108 (90 Base) MCG/ACT Inhalation every 4 hrs 2 puffs as needed 4h 11 Oct, 2016 30 days Active Promethazine HCl 25 MG Orally three times a day 1 tablet as needed 8h 20 Mar, 2016 30 day(s) Active Stribild [phone] MG Orally Once a day 1 tablet 24h Aug, 30 days Active [facility] Omeprazole 20 MG Orally Once a day 1 tablet 24h Mar, 30 day (s) Active Marinol 10 MG Orally Twice a day 1 capsule before lunch and supper 12h Jun, 30 days Active Azithromycin 250 MG Orally Once a day 1 tab 24h Mar, 30 days Active Zofran 8 TAKE ONE TABLET BY MOUTH EVERY 8 HOURS FOR 10 DAYS 10 Active Diflucan 150 MG Orally Once a day 1 tablet 24h Oct, Oct, 5 days Active ProAir HFA 108 (90 Base) MCG/ACT Inhalation every 4 hrs 2 puffs as needed 4h Sep, 30 days Active Methocarbamol 750 MG Orally every 8 hrs 1 tablet 8h Dec, 10 days Active Dapsone 100 MG Orally Once a day 1 tablet 24h Apr, 30 days Active Tramadol HCl 50 MG Orally every 6 hrs 2 tablet as needed 6h Sep, Oct, 15 days Active Clonidine HCl 0.1 MG Orally every 4 hrs 1 tablet as needed do not take is BP is <100/60 4h 08 Aug, 2016 Active Dicyclomine HCl 20 MG Orally three times a day 1 tablet 8h July, 30 day(s) Active Hydrochlorothiazide 25 MG Orally Once a day 1 tablet in the morning 24h July, 30 day(s) Active RESULTS Name Result Date Reference Range Human Immunodeficiency Virus (HIV-1), Quantitative, Real-time PCR (graph) 52009 2016-10-24 HIV-1 RNA by PCR [id number] log10 HIV-1 RNA 5.545 CD4/CD8 Ratio Profile 03288 2016-10-24 Absolute CD 4 [place] 42 359-1519 % CD 4 Pos. Lymph. 4.2 30.8-58.5 Abs. CD 8 Suppressor 562 109-897 % CD 8 Pos. Lymph. 56.2 12.0-35.5 CD4/CD8 Ratio 0.07 0.92-3.72 WBC 7.9 3.4-10.8 RBC 3.79 3.77-5.28 Hemoglobin 11.5 11.1-15.9 Hematocrit 36.7 34.0-46.6 MCV 97 79-97 MCH 30.3 26.6-33.0 MCHC 31.3 31.5-35.7 RDW 17.4 12.3-15.4 Platelets 219 150-379 Neutrophils 79 Lymphs 13 Monocytes 7 Eos 1 Basos 0 Immature Cells COSTUMED CHARACTER ENTERTAINER Neutrophils (Absolute) 6.3 1.4-7.0 Lymphs (Absolute) 1.0 0.7-3.1 Monocytes(Absolute) 0.5 0.1-0.9 Eos (Absolute) 0.1 0.0-0.4 Baso (Absolute) 0.0 0.0-0.2 Immature Granulocytes 0 Immature Grans (Abs) 0.0 0.0-0.1 NRBC COSTUMED CHARACTER ENTERTAINER Hematology Comments: COSTUMED CHARACTER ENTERTAINER Lipid Panel 18892 2016-10-24 Cholesterol, Total 186 100-199 Triglycerides 101 0-149 HDL Cholesterol 70 >39 VLDL Cholesterol Eloy 20 5-40 LDL Cholesterol Calc 96 0-99 Comment: COSTUMED CHARACTER ENTERTAINER Metabolic Panel (14), Comprehensive (CMP) 77687 2016-10-24 Glucose, Serum 94 65-99 BUN 20 6-24 Creatinine, Serum 0.82 0.57-1.00 eGFR If NonAfricn Am 89 >59 eGFR If Africn Am 103 >59 BUN/Creatinine Ratio 24 9-23 Sodium, Serum 139 134-144 Potassium, Serum 3.7 3.5-5.2 Chloride, Serum 100 96-106 Carbon Dioxide, Total 24 18-29 Calcium, Serum 8.9 8.7-10.2 Protein, Total, Serum 6.5 6.0-8.5 Albumin, Serum 4.4 3.5-5.5 Globulin, Total 2.1 1.5-4.5 A/G Ratio 2.1 1.2-2.2 Bilirubin, Total 0.5 0.0-1.2 Alkaline Phosphatase, S 55 39-117 AST (SGOT) 13 0-40 ALT (SGPT) 6 0-32 PROCEDURES Procedure Date Ordered Related Diagnosis Body Site COMPREHEN METABOLIC PANEL Oct 24, 2016 T CELL, ABSOLUTE COUNT/RATIO Oct 24, 2016 LIPID PANEL SO Oct 24, 2016 HIV-1, DNA, QUANT Oct 24, 2016 Office Visit, Est Pt., Level 3 Oct 24, 2016 Billed by outside source Oct 24, 2016 IMMUNIZATIONS No Known Immunizations
--- OUTSIDE RECORDS SUMMARY | 2017-08-18 14:48 | XMS REPORT ---
Author Olvera Dulce Organization [facility] Address [address] [place] [phone] Care Team Providers Care Information Management Officer Name Role Phone Dulce Olvera Unavailable PROBLEMS Type Condition ICD9-CM Code PNA39-UZ Code Onset Dates Condition Status SNOMED Code Problem GERD (gastroesophageal reflux disease) K21.9 Active 151867909 Problem Backache M54.9 Active 359079710 Problem Intrinsic asthma J45.909 Active 055137340 Problem Mixed hyperlipidemia E78.2 Active 529198759 Problem Migraine G43.909 Active 70064983 Problem Generalized anxiety disorder F41.1 Active 53944754 Problem Mood swings F39 Active 54744899 Problem Wheezing on auscultation R06.2 Active 313701644 Problem [employer] (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 Z79.891 Active 308145240 Problem Bipolar affective disorder F31.9 Active 63500240 Problem Acquired immune deficiency syndrome B20 Active 24669261 Problem Nicotine dependence, cigarettes, uncomplicated F17.210 Active 17745133 ALLERGIES No Information ENCOUNTERS Encounter Location Date Diagnosis [facility] [address] [place] [id number] Jun, [address] [address] May, [address] [address] Apr, AIDS B20 ; Generalized abdominal pain R10.84 and Dysmenorrhea N94.[address] [address] Apr, Acute URI J06.[address] [address] Apr, [address] [address] Apr, [facility] [address] [facility] [place] [id number] Apr, Acquired immune deficiency syndrome B20 ; [employer] ( 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 Z79.891 and Migraine G43.909 [facility] [address] [place] [address] Mar, Dysmenorrhea N94.6 [facility] [address] [place] [address] Mar, [facility] [address] [place] [address] Mar, Generalized anxiety disorder F41.1 and Generalized abdominal pain R10.[address] [address] Mar, [facility] [address] [place] [address] Mar, Generalized abdominal pain R10.84 and Generalized anxiety disorder F41.1 [facility] [address] [address] Feb, [facility] [address] [place] [address] Feb, Generalized abdominal pain R10.[address] [address] Jan, Nausea and vomiting R11.2 [facility] [address] [address] Jan, [facility] [address] [place] [address] Jan, [facility] [address] [place] [address] Jan, [facility] [address] [place] [address] Jan, [facility] [address] [place] [address] 14 Jan, 2017 [facility] [address] [place] [address] 08 Jan, 2017 Mood swings F39 [facility] [address] [place] [address] 08 Jan, 2017 [facility] [address] [place] [address] Jan, [facility] [address] [place] [address] Jan, [facility] [address] [place] [address] Jan, Dysmenorrhea N94.6 [facility] [address] [place] [phone] Jan, Acquired immune deficiency syndrome B20 ; Generalized abdominal pain R10.84 and Refused influenza vaccine Z28.21 [facility] [address] [place] [address] Jan, [facility] [address] [place] [address] Dec, Generalized abdominal pain R10.84 [facility] [address] [place] [address] Dec, Dysmenorrhea N94.6 [facility] [address] [place] [address] Dec, Backache M54.9 [facility] [address] [address] Nov, Generalized abdominal pain R10.84 [facility] [address] [address] Nov, Generalized anxiety disorder F41.1 [facility] [address] [place] [address] 08 Nov, 2016 Dysmenorrhea N94.6 [facility] [address] [place] [address] Oct, [facility] [address] [place] [address] Oct, [facility] [address] [place] [address] Oct, [facility] [address] [place] [address] Oct, Generalized abdominal pain R10.84 [facility] [address] [facility] [place] [phone] Oct, Acquired immune deficiency syndrome B20 ; [employer] 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 Z79.891 ; Bipolar affective disorder F31.9 ; Generalized anxiety disorder F41.1 ; Backache M54.9 ; Mixed hyperlipidemia E78.2 ; Nicotine dependence, cigarettes, uncomplicated F17.210 and Wheezing on auscultation R06.2 [facility] [address] [place] [address] Oct, Oral candidiasis B37.0 [facility] [address] [place] [address] Oct, [facility] [address] [address] Oct, Acute upper respiratory infection J06.[address] [address] Oct, Acute upper respiratory infection J06.[address] [address] Sep, Dysmenorrhea N94.6 [facility] [address] [address] Sep, Generalized anxiety disorder F41.[address] [address] Sep, Dysmenorrhea N94.[address] [address] Sep, [facility] [address] [address] Sep, Dysmenorrhea N94.6 [facility] [address] [place] [address] Aug, Acquired immune deficiency syndrome B20 [facility] [address] [place] [address] Aug, Generalized anxiety disorder F41.1 [facility] [address] [place] [address] Aug, [facility] [address] [place] [address] Aug, [facility] [address] [place] [address] Aug, [facility] [address] [place] [address] Aug, [facility] [address] [place] [address] Aug, [facility] [address] [place] [address] Aug, [facility] [address] [place] [address] Aug, [facility] [address] [place] [address] Aug, Acute opioid withdrawal F11.[address] [address] July, Upper respiratory infection J06.[address] [address] July, Backache M54.9 [facility] [address] [place] [phone] July, Acquired immune deficiency syndrome B20 ; retirement 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 Z79.891 ; Hyperglycemia R73.9 ; Bipolar affective disorder F31.9 ; GERD (gastroesophageal reflux disease) K21.9 ; Backache M54.9 ; Generalized anxiety disorder F41.1 ; Mixed hyperlipidemia E78.2 ; Nicotine dependence, cigarettes, uncomplicated F17.210 and Localized edema R60.[address] [facility] [address] [place] [address] July, [facility] [address] [place] [address] Jun, Backache M54.[address] [address] Jun, Chronic pain G89.[address] [address] May, Backache M54.[address] [address] May, Backache M54.[address] [facility] [address] [place] [address] Apr, Cough R05 [facility] [address] [id number] Apr, Acquired immune deficiency syndrome B20 ; Screening examination for sexually transmitted disease Z11.3 ; Dermatitis L30.9 and Migraine with aura and with status migrainosus, not intractable G43.[address] [address] Apr, Backache M54.[address] [address] Mar, Intrinsic asthma J45.909 ; Nausea and vomiting R11.2 and AIDS B20 [address] [address] Mar, Backache M54.[address] [address] Feb, Chronic pain G89.[address] [address] Feb, Backache M54.[address] [address] Jan, [facility], 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 [address] Jan, Asthma, intrinsic 493.[address] [address] Jan, [address] [address] Jan, [address] [address] Jan, Backache M54.[address] [address] Dec, Chronic pain G89.29 [facility] [address] [id number] Dec, AIDS B20 ; Influenza vaccine needed Z23 ; Intrinsic asthma J45.909 ; Backache M54.9 ; Generalized anxiety disorder F41.1 ; Nicotine dependence, cigarettes, uncomplicated F17.210 and Mixed hyperlipidemia E78.[address] [facility] [address] [place] [address] Dec, [facility] [address] [place] [address] Dec, Dysmenorrhea N94.[address] [facility] [address] [place] [address] Dec, [facility] [address] [place] [address] Dec, Depression with anxiety F41.8 and Backache M54.[address] [facility] [address] [place] [address] Nov, [facility] [address] [place] [address] Nov, Other chronic pain G89.[address] [facility] [address] [place] [address] Nov, Other chronic pain G89.[address] [facility] [address] [place] [address] 18 Nov, [address] [facility] [address] [place] [address] 14 Nov, 2015 Generalized anxiety disorder F41.[address] [facility] [address] [place] [address] Nov, [facility] [address] [place] [address] Nov, [facility] [address] [place] [address] 04 Nov, 2015 Chronic pain G89.29 [facility] [address] [place] [address] Oct, [facility] [address] [place] [address] Oct, Other chronic pain G89.29 [facility] [address] [place] [address] Oct, [facility] [address] [place] [address] Oct, [facility] [address] [place] [address] Oct, Nausea and vomiting R11.[address] [facility] [address] [place] [address] Oct, Chronic pain G89.[address] [facility] [address] [place] [address] Sep, [facility] [address] [place] [address] Sep, Acute upper respiratory infection, unspecified J06.[address] [facility] [address] [place] [address] Sep, Upper respiratory infection J06.[address] [facility] [address] [place] [address] Sep, [facility] [address] [place] [address] Sep, [facility] [address] [place] [address] Sep, Other chronic pain G89.29 [facility] [address] [place], [place] [phone] Sep, AIDS B20 ; [employer] (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 Z79.891 ; Smoking F17.200 ; Mixed hyperlipidemia E78.2 ; Chronic pain G89.29 and Edema R60.[address] [facility] [address] [place] [address] Sep, [facility] [address] [place] [address] Sep, [facility] [address] [place] [address] Aug, [facility] [address] [place] [address] Aug, Other chronic pain G89.[address] [facility] [address] [place] [address] Aug, Generalized anxiety disorder F41.1 [facility] [address] [place] [facility] [place] [address] July, Other chronic pain G89.29 [facility] [address] [place] [facility] [place] [address] July, Other chronic pain G89.29 [facility] [address] [place] [facility] [place] [address] July, [facility] [address] [place] [facility] [place] [address] Jun, Generalized anxiety disorder F41.1 [facility] [address] [place] [facility] [place] [address] Jun, [facility] [address] [place] [facility] [place] [address] Jun, Other chronic pain G89.29 [facility] [address] [place] [facility] [place] [address] Jun, Rash and other nonspecific skin eruption R21 [facility] [address] [place] [facility] [place] [address] Jun, [facility] [address] [place] [facility] [place] [address] Jun, [facility] [address] [place] [facility] [place] [address] Jun, [facility] [address] [place] [facility] [place] [address] Jun, [facility] [address] [place] [facility] [place] [address] Jun, [facility] [address] [place] [facility] [place] [address] Jun, [facility] [address] [place] [facility] [place] [address] Jun, [facility] [address] [place] [facility] [place] [address] Jun, Other chronic pain G89.29 [facility] [address] [place] [facility] [place] [address] Jun, [facility] [address] [place] [facility] [place] [address] Jun, [facility] [address] [place] [facility] [place] [address] Jun, [facility] [address] [place] [facility] [place] [address] Jun, [facility] [address] [place] [facility] [place] [address] Jun, [facility] [address] [place] [facility] [place] [address] Jun, [facility] [address] [place] [facility] [place] [address] Jun, [facility] [address] [place] [facility] [place] [address] Jun, [facility] [address] [place] [facility] [place] [address] Jun, [facility] [address] [place] [facility] [place] [address] Jun, Nausea and vomiting R11.2 [facility] [address] [place] [facility] [place] [address] May, [facility] [address] [place] [facility] [place] [address] May, Rash and other nonspecific skin eruption R21 [facility] [address] [place] [facility] [place] [address] May, [facility] [address] [place] [address] May, [facility] [address] [place] [facility] [place] [address] May, [facility] [address] [place] [facility] [place] [address] May, [facility] [address] [place] [facility] [place] [address] May, [facility] [address] [place] [phone] May, Acquired immune deficiency syndrome B20 ; Screening examination for sexually transmitted disease Z11.3 ; Depression with anxiety F41.8 ; Other chronic pain G89.29 and Dermatitis L30.9 [facility] [address] [place] [facility] [place] [address] 14 May, 2015 [facility] [address] [place] [facility] [place] [address] May, [facility] [address] [place] [facility] [place] [address] May, [facility] [address] [place] [facility] [place] [address] May, Backache M54.9 [facility] [address] [place] [facility] [place] [address] May, Rash and other nonspecific skin eruption R21 [facility] [address] [place] [facility] [place] [address] Apr, [facility] [address] [place] [facility] [place] [address] Apr, [facility] [address] [place] [facility] [place] [address] Apr, Other chronic pain G89.29 [facility] [address] [place] [facility] [place] [address] Apr, [facility] [address] [place] [facility] [place] [address] Apr, [facility] [address] [place] [facility] [place] [address] Apr, [facility] [address] [place] [address] Apr, [facility] [address] [place] [address] Apr, [facility] [address] [place] [facility] [place] [address] Apr, [facility] [address] [place] [facility] [place] [address] Apr, [facility] [address] [place] [facility] [place] [address] Apr, [facility] [address] [place] [address] Apr, [facility] [address] [place] [address] Apr, [facility] [address] [place] [address] Apr, Other chronic pain G89.29 ; Generalized anxiety disorder F41.1 ; Nausea R11.0 and AIDS B20 [facility] [address] [place] [address] Apr, [facility] [address] [place] [address] Apr, Generalized anxiety disorder F41.[address] [facility] [address] [place] [address] Apr, [address] [address] Apr, Other chronic pain G89.[address] [address] Mar, [facility] [address] [place] [phone] Mar, retirement (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 Z79.891 ; Bipolar affective disorder F31.9 ; Smoking F17.200 ; Generalized anxiety disorder F41.1 ; Influenza vaccine administered Z23 and AIDS B20 [address] [address] Mar, Other chronic pain G89.[address] [address] Mar, Generalized anxiety disorder F41.[address] [facility] [address] [place] [address] Mar, [facility] [address] [place] [address] Mar, Asymptomatic HIV infection Z21 [address] [address] Mar, Other chronic pain G89.[address] [address] Feb, [address] [address] Feb, [facility] [address] [place] [address] Feb, [facility] [address] [place] [address] Feb, [facility] [address] [place] [address] Feb, [facility] [address] [place] [address] Jan, Other chronic pain G89.29 and Nausea & vomiting R11.[address] [address] Jan, Other chronic pain G89.[address] [address] Dec, [address] [address] Dec, Other chronic pain G89.29 ; Asymptomatic HIV infection Z21 ; Intrinsic asthma J45.909 ; Bipolar affective disorder F31.9 ; Noncompliance Z91.19 ; Migraine G43.909 ; Tobacco use disorder Z72.0 ; GERD (gastroesophageal reflux disease) K21.9 ; Backache M54.9 and Generalized anxiety disorder F41.[address] [address] Nov, [address] [address] Nov, [address] [address] Oct, Other chronic pain 338.[address] [address] Oct, [address] [address] Oct, Unspecified backache 724.5 and Dysphagia 787.[address] [address] Sep, Other chronic pain 338.[address] [address] Sep, [address] [address] Aug, URI (upper respiratory infection) 465.9 and Diarrhea 787.[address] [address] Aug, [address] [address] Aug, Other chronic pain 338.[address] [address] Aug, Other chronic pain 338.29 and Generalized anxiety disorder 300.[address] [address] Aug, [address] [address] July, Other chronic pain 338.29 [facility] [address] [place] [phone] July, Nondependent tobacco use disorder 305.1 ; Unspecified backache 724.5 ; Other chronic pain 338.29 ; Abdominal pain, unspecified site 789.00 ; [employer] (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 V58.69 and Acquired immune deficiency syndrome [address] [address] July, Other chronic pain 338.[address] [address] Jun, Other chronic pain 338.[address] [address] Jun, [address] [address] Jun, Other chronic pain 338.[address] [address] Jun, URI (upper respiratory infection) 465.[address] [address] Jun, Generalized anxiety disorder 300.02 and Seasonal allergies 477.[address] [facility] [address] [place] [address] Jun, Generalized anxiety disorder 300.[address] [facility] [address] [place] [address] May, Other chronic pain 338.[address] [facility] [address] [place] [address] May, Other chronic pain 338.29 and Generalized anxiety disorder 300.[address] [facility] [address] [place] [address] Apr, Asthma, intrinsic 493.10 and Acute upper respiratory infections of other multiple sites 465.[address] [address] Apr, [facility] [address] [facility] [address] [place] [phone] Apr, Depressive disorder [address] [facility] [address] [place] [address] Apr, Other chronic pain 338.[address] [facility] [address] [place] [address] Apr, [address] [address] Apr, Other chronic pain 338.[address] [address] Mar, Acute upper respiratory infections of unspecified site 465.9 [facility] [address] [place] [phone] Mar, Migraine 346.90 ; Nondependent tobacco use disorder 305.1 ; Esophageal reflux 530.81 ; Unspecified backache 724.5 ; Abdominal pain, generalized 789.07 ; Flatulence, eructation, and gas pain 787.3 ; Asymptomatic human immunodeficiency virus (HIV) infection status V08 ; Dyspepsia and other specified disorders of function of stomach 536.8 ; Nausea alone 787.02 and Asthma 493.[address] [address] Mar, Other chronic pain 338.[address] [facility] [address] [place] [address] Feb, Other chronic pain 338.29 and Generalized anxiety disorder 300.[address] [facility] [address] [place] [phone] Feb, Abdominal pain, generalized 789.[address] [facility] [address] [place] [phone] Jan, Abdominal pain, generalized 789.07 [facility] [address] [place] [phone] Dec, [facility] [address] [place] [phone] Dec, [facility] [address] [place] [phone] Dec, Unspecified backache 724.[address] [address] Dec, [facility] [address] [place] [phone] Nov, [place] [id number] [phone] Nov, [facility] [address] [place], [place] [phone] Nov, Bipolar disorder, unspecified 296.80 ; Abdominal pain, generalized 789.07 ; Generalized anxiety disorder 300.02 ; Nausea alone 787.02 ; Flu vaccine need V04.81 and Human immunodeficiency virus (HIV) disease 0[address] [facility] [address] [place] [address] Nov, [facility] [address] [facility] [address] [place], [place] [phone] Oct, [facility] [address] [facility] [address] [place] [phone] Oct, [facility] [address] [phone] Aug, [facility] [address] [place] [phone] Jun, [facility] [address] [place] [phone] Mar, [facility] [address] [place] [facility] [place] [address] Oct, [facility] [address] [place] [facility] [place] [address] July, [facility] [address] [place] [facility] [place] [address] Jun, [facility] [address] [place] [facility] [place] [address] May, [facility] [address] [place] [facility] [place] [address] Mar, [facility] [address] [place] [facility] [place] [address] Feb, [facility] [address] [place] [facility] [place] [address] Nov, [facility] [address] [place] [facility] [place] [address] Oct, [facility] [address] [place] [facility] [place] [address] Aug, [facility] [address] [place] [facility] [place] [address] May, [facility] [address] [place] [facility] [place] [address] Mar, IMMUNIZATIONS No Known Immunizations SOCIAL HISTORY Never Assessed REASON FOR VISIT Med Question PLAN OF CARE VITAL SIGNS MEDICATIONS Medication [...] as needed 4h Oct, 30 days Active Hydrochlorothiazide 25 MG Orally Once a day 1 tablet in the morning 24h July, 30 day(s) Active Dicyclomine HCl 20 MG Orally three times a day 1 tablet 8h July, 30 day(s) Active Stribild [phone] MG Orally Once a day 1 tablet 24h Aug, 30 days Active ProAir HFA 108 (90 Base) MCG/ACT Inhalation every 4 hrs 2 puffs as needed 4h 25 Sep, 2015 30 days Active Methocarbamol 750 TAKE ONE TABLET BY MOUTH EVERY 8 HOURS FOR 10 DAYS 10 Active Marinol 10 MG Orally Twice a day 1 capsule before lunch and supper 12h Jun, 30 days Active HydrOXYzine HCl 25 MG Orally every 12 hrs 1 tablet 12h Jan, 30 day(s) Active Methocarbamol 750 MG Orally every 8 hrs 1 tablet 8h 18 Dec, 2015 10 days Active Diflucan 150 Orally Once a day 1 tablet 24h 5 Active [facility] Omeprazole 20 MG Orally Once a day 1 tablet 24h 29 Mar, 2015 30 day (s) Active Zofran 8 mg TAKE ONE TABLET BY MOUTH EVERY 8 HOURS FOR 10 DAYS 10 Active Clonidine HCl 0.1 MG Orally every 4 hrs 1 tablet as needed do not take is BP is <100/60 4h Aug, Active Promethazine HCl 25 MG Orally three times a day 1 tablet as needed 8h 20 Mar, 2016 30 day(s) Active Doxycycline Hyclate 100 MG Orally every 12 hrs 1 tablet 12h Apr, May, 7 days Active Tramadol HCl 50 MG Orally every 4-6 hrs 1 tablet as needed Sep, 30 days Active Zithromax Z-Riky 250 MG Orally Once a day 2 tablets on the first day, then 1 tablet daily for 4 days 24h May, 5 day(s) Active Xanax 1 MG Orally Twice a day 1 tablet as needed 12h Sep, 30 days Active RESULTS No Results [...]
--- OUTSIDE RECORDS SUMMARY | 2017-08-18 14:49 | XMS REPORT ---
Author Dulce Clark [facility] Address [address] [place], [place] [id number] Care Team Providers Care Supervisor Steno Pool Name Role Phone Dulce Olvera Unavailable PROBLEMS Type Condition ICD9-CM Code [id number] Code Onset Dates Condition Status SNOMED Code Problem GERD (gastroesophageal reflux disease) K21.9 Active 234939615 Problem Backache M54.9 Active 141966914 Problem Intrinsic asthma J45.909 Active 916201691 Problem Mixed hyperlipidemia E78.2 Active 631114936 Problem Migraine G43.909 Active 51168462 Problem Generalized anxiety disorder F41.1 Active 30451518 Problem Mood swings F39 Active 34017102 Problem Wheezing on auscultation R06.2 Active 646468601 Problem senior care (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 Z79.891 Active 420623194 Problem Bipolar affective disorder F31.9 Active 55077343 Problem Acquired immune deficiency syndrome B20 Active 15301435 Problem Nicotine dependence, cigarettes, uncomplicated F17.210 Active 97630627 ALLERGIES No Information SOCIAL HISTORY Never Assessed PLAN OF CARE VITAL SIGNS MEDICATIONS Medication Instructions Dosage Frequency Start Date End Date Duration Status Xanax 1 MG Orally Twice a day 1 tablet as needed 12h Sep, 30 days Active Hydrocodone-Acetaminophen 10-325 MG Orally every 6 hrs 1 tablet as needed 6h Oct, 30 days Active RESULTS No Results [...]
--- OUTSIDE RECORDS SUMMARY | 2017-08-18 14:49 | XMS REPORT ---
Author Dulce Clark [facility] Address [address] [place], [place] [id number] Care Team Providers Care Manufacturing Business Analyst Name Role Phone Dulce Olvera Unavailable PROBLEMS ALLERGIES No Information SOCIAL HISTORY No smoking Hx information available PLAN OF CARE VITAL SIGNS MEDICATIONS Unknown Medications RESULTS No Results PROCEDURES No Known procedures IMMUNIZATIONS No Known Immunizations MEDICAL (GENERAL) HISTORY
--- OUTSIDE RECORDS SUMMARY | 2017-08-18 14:49 | XMS REPORT ---
Author Author Salome Solis [facility] Address [address] [place], [place] [id number] Care Team Providers Care Manufacturing Intern Name Role Phone Salome Solis Unavailable PROBLEMS Type Condition ICD9-CM Code HCR15-ZS Code Onset Dates Condition Status SNOMED Code Problem Generalized anxiety disorder F41.1 Active 85792799 Problem Intrinsic asthma J45.909 Active 569452917 Problem GERD (gastroesophageal reflux disease) K21.9 Active 938567245 Problem Mixed hyperlipidemia E78.2 Active 748790443 Problem Migraine G43.909 Active 04691050 Problem Wheezing on auscultation R06.2 Active 307626238 Problem Acquired immune deficiency syndrome B20 Active 50862472 Problem Bipolar affective disorder F31.9 Active 46068497 Problem Backache M54.9 Active 550577307 Problem Nicotine dependence, cigarettes, uncomplicated F17.210 Active 43411934 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
--- OUTSIDE RECORDS SUMMARY | 2017-08-18 14:49 | XMS REPORT ---
Author Dulce Clark [facility] Address [address] [place], [place] [id number] Care Team Providers Care Nutrition Professor Name Role Phone Dulce Olvera Unavailable PROBLEMS Type Condition ICD9-CM Code CIB53-HD Code Onset Dates Condition Status SNOMED Code Problem GERD (gastroesophageal reflux disease) K21.9 Active 863217994 Problem Backache M54.9 Active 277694133 Problem Intrinsic asthma J45.909 Active 636893691 Problem Mixed hyperlipidemia E78.2 Active 464356524 Problem Migraine G43.909 Active 67132486 Problem Generalized anxiety disorder F41.1 Active 18204081 Problem Mood swings F39 Active 09827341 Problem Wheezing on auscultation R06.2 Active 233982406 Problem long-term (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 Z79.891 Active 156142106 Problem Bipolar affective disorder F31.9 Active 87036708 Problem Acquired immune deficiency syndrome B20 Active 52054892 Problem Nicotine dependence, cigarettes, uncomplicated F17.210 Active [id number] ALLERGIES No Information SOCIAL HISTORY Never Assessed PLAN OF CARE VITAL SIGNS MEDICATIONS Medication Instructions Dosage Frequency Start Date End Date Duration Status Zofran 8 mg TAKE ONE TABLET BY [...]
--- OUTSIDE RECORDS SUMMARY | 2017-08-18 14:49 | XMS REPORT ---
Author Dulce Clark [facility] Address [address] [place], [place] [id number] Care Team Providers Care Header Operator Name Role Phone Dulce Olvera Unavailable PROBLEMS Type Condition ICD9-CM Code VEA72-LL Code Onset Dates Condition Status SNOMED Code Problem GERD (gastroesophageal reflux disease) K21.9 Active 622260589 Problem Backache M54.9 Active 447705407 Problem Intrinsic asthma J45.909 Active 682485697 Problem Mixed hyperlipidemia E78.2 Active 165641171 Problem Migraine G43.909 Active 45356217 Problem Generalized anxiety disorder F41.1 Active 71407554 Problem Mood swings F39 Active 19462838 Problem Wheezing on auscultation R06.2 Active 231940496 Problem [facility] (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 Z79.891 Active 180322877 Problem Bipolar affective disorder F31.9 Active 48869883 Problem Acquired immune deficiency syndrome B20 Active 44507492 Problem Nicotine dependence, cigarettes, uncomplicated F17.210 Active 82587112 ALLERGIES No Information SOCIAL HISTORY Never Assessed [...]
--- OUTSIDE RECORDS SUMMARY | 2017-08-18 14:50 | XMS REPORT ---
Author Dulce Olvera [facility] Address [address] [place], [place] [id number] Care Team Providers Care Concrete Mason Name Role Phone Dulce Olvera Unavailable PROBLEMS Type Condition ICD9-CM Code UXT60-FW Code Onset Dates Condition Status SNOMED Code Problem Bipolar affective disorder F31.9 Active 13801499 Problem Nicotine dependence, cigarettes, uncomplicated F17.210 Active 41392574 Problem shelter (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 Z79.891 Active 773264059 Problem Non-intractable cyclical vomiting with nausea G43.A0 Active 88599431 Problem Poor appetite R63.0 Active 80800875 Problem Wheezing on auscultation R06.2 Active 158595780 Problem Acquired immune deficiency syndrome B20 Active 75272347 Problem Other chronic pain G89.29 Active 59748995 Problem Mood swings F39 Active 07971004 Problem Generalized anxiety disorder F41.1 Active 17178212 Problem GERD (gastroesophageal reflux disease) K21.9 Active 685879589 Problem Mixed hyperlipidemia E78.2 Active 211029715 Problem Intrinsic asthma J45.909 Active 271079882 Problem Migraine G43.909 Active 96580136 Problem Backache M54.9 Active 970215472 ALLERGIES No Information ENCOUNTERS Encounter Location Date Diagnosis [facility] [address] [place], [place] [id number] Sep, [facility][note 3] [address] [place] [address] July, [facility][note 3] [address] [place] [address] July, [facility][note 3] [address] [place] [address] July, [facility][note 3] [address] [place] [address] July, [facility][note 3] [address] [place] [address] July, Poor appetite R63.0 and Backache M54.9 [facility] [address] [place] [facility] [place] [address] July, [facility] [address] [place] [facility] [place] [address] July, [facility] [address] [place] [facility] [place] [address] July, [facility] [address] [place] [facility] [place] [address] July, [facility] [address] [place] [facility] [place] [address] July, [facility] [address] [place] [facility] [place] [address] July, Nausea and vomiting R11.2 [facility] [address] [place] [address] July, [facility] [address] [place] [facility] [place] [address] July, [facility] [address] [place] [facility] [place] [address] July, [facility] [address] [place] [facility] [place] [address] July, [facility] [address] [place] [facility] [place] [address] July, [facility] [address] [place] [facility] [place] [address] July, Other chronic pain G89.29 [facility] [address] [place] [facility] [place] [address] July, [facility] [address] [place] [address] July, GERD (gastroesophageal reflux disease) K21.9 [facility] [address] [place] [facility] [place] [address] July, [facility] [address] [place] [facility] [place] [address] Jun, [facility] [address] [place] [facility] [place] [address] Jun, [facility] [address] [place] [facility] [place] [address] Jun, [facility] [address] [place] [facility] [place] [address] Jun, [facility] [address] [place] [facility] [place] [address] Jun, Other chronic pain G89.29 [facility] [address] [place] [facility] [place] [address] Jun, [facility] [address] [place] [facility] [place] [address] Jun, [facility] [address] [place] [facility] [place] [address] Jun, [facility] [address] [place] [facility] [place] [address] Jun, [facility] [address] [place] [address] Jun, [facility] [address] [place] [address] Jun, Generalized anxiety disorder F41.1 ; Other chronic pain G89.29 and Non-intractable cyclical vomiting with nausea G43.A0 [facility] [address] [place], [place] [id number] Jun, Acquired immune deficiency syndrome B20 ; shelter ( 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 Z79.891 ; Nicotine dependence, cigarettes, uncomplicated F17.210 ; Lower respiratory infection J22 ; Poor appetite R63.0 ; Other chronic pain G89.29 ; Generalized anxiety disorder F41.1 and Need for tetanus booster Z23 [facility] [address] [place] [address] Jun, [facility] [address] [place] [address] May, Generalized abdominal pain R10.84 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 and Migraine G43.[address] [address] Mar, Dysmenorrhea N94.[address] [address] Mar, [address] [address] Mar, Generalized anxiety disorder F41.1 and Generalized abdominal pain R10.[address] [address] Mar, [address] [address] Mar, Generalized abdominal pain R10.84 and Generalized anxiety disorder F41.[address] [address] Feb, [address] [address] Feb, Generalized abdominal pain R10.[address] [address] Jan, Nausea and vomiting R11.[address] [address] Jan, [address] [address] Jan, [address] [address] Jan, [facility] [address] [place] [address] 15 Jan, 2017 [facility] [address] [place] [address] 14 Jan, 2017 [facility] [address] [place] [address] 08 Jan, 2017 Mood swings F39 [facility] [address] [place] [address] Jan, [facility] [address] [place] [address] Jan, [facility] [address] [place] [address] Jan, [facility] [address] [place] [address] Jan, Dysmenorrhea N94.6 [facility] [address] [place] [phone] Jan, Acquired immune deficiency syndrome B20 ; Generalized abdominal pain R10.84 and Refused influenza vaccine Z28.21 [facility] [address] [place] [address] Jan, [facility] [address] [place] [address] Dec, Generalized abdominal pain R10.84 [facility] [address] [place] [address] Dec, Dysmenorrhea N94.6 [facility] [address] [place] [address] Dec, Backache M54.9 [facility] [address] [place] [address] Nov, Generalized abdominal pain R10.84 [facility] [address] [place] [address] Nov, Generalized anxiety disorder F41.1 [facility] [address] [place] [address] 08 Nov, 2016 Dysmenorrhea N94.6 [facility] [address] [place] [address] Oct, [facility] [address] [place] [address] Oct, [facility] [address] [place] [address] Oct, [facility] [address] [place] [address] Oct, Generalized abdominal pain R10.84 [facility] [address] [place] [id number] Oct, Acquired immune deficiency syndrome B20 ; 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 [address] [place] [address] Oct, [facility] [address] [address] Oct, Acute upper respiratory infection J06.[address] [address] Oct, Acute upper respiratory infection J06.[address] [address] Sep, Dysmenorrhea N94.6 [facility] [address] [place] [address] Sep, Generalized anxiety disorder F41.[address] [address] Sep, Dysmenorrhea N94.6 [facility] [address] [place] [address] Sep, [facility] [address] [place] [address] Sep, Dysmenorrhea N94.6 [facility] [address] [place] [address] Aug, Acquired immune deficiency syndrome B20 [facility] [address] [place] [address] Aug, Generalized anxiety disorder F41.1 [facility] [address] [place] [address] Aug, [facility] [address] [place] [address] Aug, [facility] [address] [place] [address] Aug, [facility] [address] [place] [address] Aug, [facility] [address] [place] [address] Aug, [facility] [address] [place] [address] Aug, [facility] [address] [place] [address] Aug, 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 [address] [place] [address] July, [facility] [address] [place] [address] Jun, Backache M54.9 [facility][note 3] [address] [place] [address] Jun, Chronic pain G89.29 [facility][note 3] [address] [place] [address] May, Backache M54.9 [facility][note 3] [address] [place] [address] May, Backache M54.9 [facility][note 3] [address] [place] [address] Apr, Cough R05 [facility] [address] [place], [place] [id number] Apr, Acquired immune deficiency syndrome B20 ; Screening examination for sexually transmitted disease Z11.3 ; Dermatitis L30.9 and Migraine with aura and with status migrainosus, not intractable G43.[address] [address] Apr, Backache M54.[address] [address] Mar, Intrinsic asthma J45.909 ; Nausea and vomiting R11.2 and AIDS B20 [address] [address] Mar, Backache M54.[address] [address] Feb, Chronic pain G89.[address] [address] Feb, Backache M54.[address] [address] Jan, [facility], 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 [address] Jan, Asthma, intrinsic 493.[address] [address] Jan, [address] [place] [address] 15 Jan, 2016 [facility][note 3] [address] [place] [address] Jan, Backache M54.9 [facility][note 3] [address] [place] [address] 30 Dec, 2015 Chronic pain G89.29 [facility] [address] [facility] [address] [place] [id number] Dec, AIDS B20 ; Influenza vaccine needed Z23 ; Intrinsic asthma J45.909 ; Backache M54.9 ; Generalized anxiety disorder F41.1 ; Nicotine dependence, cigarettes, uncomplicated F17.210 and Mixed hyperlipidemia E78.[address] [address] Dec, [address] [address] Dec, Dysmenorrhea N94.[address] [address] 18 Dec, 2015 [facility][note 3] [address] [place] [address] 17 Dec, 2015 Depression with anxiety F41.8 and Backache M54.[address] [address] 19 Nov, [address] [address] 19 Nov, 2015 Other chronic pain G89.[address] [address] 18 Nov, 2015 Other chronic pain G89.29 [facility][note 3] [address] [place] [address] 18 Nov, 2015 [facility][note 3] [address] [place] [address] 14 Nov, 2015 Generalized anxiety disorder F41.[address] [address] 06 Nov, [address] [address] 06 Nov, 2015 [facility][note 3] [address] [place] [address] Nov, Chronic pain G89.29 [facility][note 3] [address] [place] [address] Oct, [facility][note 3] [address] [place] [address] Oct, Other chronic pain G89.29 [facility][note 3] [address] [place] [address] Oct, [facility][note 3] [address] [place] [address] Oct, [facility][note 3] [address] [place] [address] Oct, Nausea and vomiting R11.[address] [address] Oct, Chronic pain G89.[address] [address] Sep, [facility][note 3] [address] [place] [address] Sep, Acute upper respiratory infection, unspecified J06.[address] [address] Sep, Upper respiratory infection J06.[address] [address] Sep, [facility][note 3] [address] [place] [address] Sep, [facility][note 3] [address] [place] [address] Sep, Other chronic pain G89.29 [facility] [address] [place], [place] [id number] Sep, AIDS B20 ; shelter (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 Z79.891 ; Smoking F17.200 ; Mixed hyperlipidemia E78.2 ; Chronic pain G89.29 and Edema R60.9 [facility][note 3] [address] [place] [address] Sep, [facility] [address] [place] [facility] [place] [address] Sep, [facility] [address] [place] [facility] [place] [address] Aug, [facility] [address] [place] [facility] [place] [address] Aug, Other chronic pain G89.29 [facility] [address] [place] [facility] [place] [address] Aug, Generalized anxiety disorder F41.1 [facility] [address] [place] [facility] [place] [address] July, Other chronic pain G89.29 [facility] [address] [place] [facility] [place] [address] July, Other chronic pain G89.29 [facility] [address] [place] [facility] [place] [address] July, [facility] [address] [place] [facility] [place] [address] Jun, Generalized anxiety disorder F41.1 [facility] [address] [place] [facility] [place] [address] Jun, [facility] [address] [place] [facility] [place] [address] Jun, Other chronic pain G89.29 [facility] [address] [place] [facility] [place] [address] Jun, Rash and other nonspecific skin eruption R21 [facility] [address] [place] [facility] [place] [address] Jun, [facility] [address] [place] [facility] [place] [address] Jun, [facility] [address] [place] [facility] [place] [address] Jun, [facility] [address] [place] [facility] [place] [address] Jun, [facility] [address] [place] [facility] [place] [address] Jun, [facility] [address] [place] [facility] [place] [address] Jun, [facility] [address] [place] [facility] [place] [address] Jun, [facility] [address] [place] [facility] [place] [address] Jun, Other chronic pain G89.29 [facility] [address] [place] [facility] [place] [address] Jun, [facility] [address] [place] [facility] [place] [address] Jun, [facility] [address] [place] [facility] [place] [address] Jun, [facility] [address] [place] [facility] [place] [address] Jun, [facility] [address] [place] [facility] [place] [address] Jun, [facility] [address] [place] [facility] [place] [address] Jun, [facility] [address] [place] [facility] [place] [address] Jun, [facility] [address] [place] [facility] [place] [address] Jun, [facility] [address] [place] [facility] [place] [address] Jun, [facility] [address] [place] [facility] [place] [address] Jun, Nausea and vomiting R11.2 [facility] [address] [place] [facility] [place] [address] May, [facility] [address] [place] [facility] [place] [address] May, Rash and other nonspecific skin eruption R21 [facility] [address] [place] [facility] [place] [address] May, [facility] [address] [place] [facility] [place] [address] May, [facility] [address] [place] [facility] [place] [address] May, [facility] [address] [place] [address] May, [facility] [address] [place] [address] May, [facility] [address] [facility] [place] [id number] May, Acquired immune deficiency syndrome B20 ; Screening examination for sexually transmitted disease Z11.3 ; Depression with anxiety F41.8 ; Other chronic pain G89.29 and Dermatitis L30.9 [facility] [address] [place] [address] May, [facility] [address] [place] [address] May, [facility] [address] [place] [address] May, [facility] [address] [place] [address] May, Backache M54.9 [facility] [address] [place] [address], [place] [address] May, Rash and other nonspecific skin eruption R21 [facility] [address] [place] [address] Apr, [facility] [address] [place] [address] Apr, [facility] [address] [place] [address] Apr, Other chronic pain G89.29 [facility] [address] [place] [address] Apr, [facility] [address] [place] [address] Apr, [facility] [address] [place] [address] Apr, [facility] [address] [place] [address] Apr, [facility] [address] [place] [address] Apr, [facility] [address] [place] [address] Apr, [facility][note 3] [address] [place] [address] Apr, [facility][note 3] [address] [place] [address] Apr, [facility][note 3] [address] [place] [address] Apr, [facility][note 3] [address] [place] [address] Apr, [facility][note 3] [address] [place] [address] Apr, Other chronic pain G89.29 ; Generalized anxiety disorder F41.1 ; Nausea R11.0 and AIDS B20 [address] [address] Apr, [address] [address] Apr, Generalized anxiety disorder F41.[address] [address] Apr, [address] [address] Apr, Other chronic pain G89.[address] [address] Mar, [facility] [address] [place] [id number] Mar, 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 [address] [place] [address] Feb, [facility] [address] [place] [address] Feb, [facility][note 3] [address] [place] [address] Feb, [facility]note 3] [address] [place] [address] Feb, [facility][note 3] [address] [place] [address] Jan, Other chronic pain G89.29 and Nausea & vomiting R11.2 [facility][note 3] [address] [place] [address] Jan, Other chronic pain G89.29 [facility][note 3] [address] [place] [address] Dec, [facility]note 3] [address] [place] [address] Dec, Other chronic pain G89.29 ; Asymptomatic HIV infection Z21 ; Intrinsic asthma J45.909 ; Bipolar affective disorder F31.9 ; Noncompliance Z91.19 ; Migraine G43.909 ; Tobacco use disorder Z72.0 ; GERD (gastroesophageal reflux disease) K21.9 ; Backache M54.9 and Generalized anxiety disorder F41.1 [facility][note 3] [address] [place] [address] Nov, [facility][note 3] [address] [place] [address] Nov, [facility][note 3] [address] [place] [address] Oct, Other chronic pain 338.29 [facility][note 3] [address] [place] [address] Oct, [facility]note 3] [address] [place] [address] Oct, Unspecified backache 724.5 and Dysphagia 787.[address] [address] Sep, Other chronic pain 338.[address] [address] Sep, [address] [address] Aug, URI (upper respiratory infection) 465.9 and Diarrhea 787.[address] [address] Aug, [address] [address] Aug, Other chronic pain 338.[address] [address] Aug, Other chronic pain 338.29 and Generalized anxiety disorder 300.[address] [address] Aug, [address] [address] July, Other chronic pain 338.29 [facility] [address] [place] [id number] July, Nondependent tobacco use disorder 305.1 ; Unspecified backache 724.5 ; Other chronic pain 338.29 ; Abdominal pain, unspecified site 789.00 ; shelter (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 V58.69 and Acquired immune deficiency syndrome [address] [address] July, Other chronic pain 338.[address] [address] Jun, Other chronic pain 338.[address] [address] Jun, [place] [address] [place] [address] Jun, Other chronic pain 338.29 [facility]note 3] [address] [place] [address] Jun, URI (upper respiratory infection) 465.9 [facility] [place][note 3] [address] [place] [address] Jun, Generalized anxiety disorder 300.02 and Seasonal allergies 477.9 [facility] [place][note 3] [address] [place] [address] Jun, Generalized anxiety disorder 300.02 [facility] [place][note 3] [address] [place] [address] May, Other chronic pain 338.29 [facility] [place][note 3] [address] [place] [address] May, Other chronic pain 338.29 and Generalized anxiety disorder 300.02 [facility] [place][note 3] [address] [place] [address] Apr, Asthma, intrinsic 493.10 and Acute upper respiratory infections of other multiple sites 465.8 [facility] [place][note 3] [address] [place] [address] Apr, [facility] 101[address] [facility] [address] [place] [id number] Apr, Depressive disorder 311 [facility] [place][note 3] [address] [place] [address] Apr, Other chronic pain 338.29 [facility] [place][note 3] [address] [place] [address] Apr, [facility] [place][note 3] [address] [place] [address] Apr, Other chronic pain 338.29 [facility] [place][note 3] [address] [place] [address] Mar, Acute upper respiratory infections of unspecified site 465.9 [facility] [address] [place] [id number] Mar, Migraine 346.90 ; Nondependent tobacco use disorder 305.1 ; Esophageal reflux 530.81 ; Unspecified backache 724.5 ; Abdominal pain, generalized 789.07 ; Flatulence, eructation, and gas pain 787.3 ; Asymptomatic human immunodeficiency virus (HIV) infection status V08 ; Dyspepsia and other specified disorders of function of stomach 536.8 ; Nausea alone 787.02 and Asthma 493.[address] [address] Mar, Other chronic pain 338.[address] [address] Feb, Other chronic pain 338.29 and Generalized anxiety disorder 300.[address] [address] Feb, Abdominal pain, generalized 789.[address] [address] Jan, Abdominal pain, generalized 789.[address] [id number] Dec, [address] [address] Dec, [address] [address] Dec, Unspecified backache 724.[address] [address] Dec, [address] [address] Nov, [facility] [address] [phone] Nov, [facility] [address] [place] [id number] Nov, Bipolar disorder, unspecified 296.80 ; Abdominal pain, generalized 789.07 ; Generalized anxiety disorder 300.02 ; Nausea alone 787.02 ; Flu vaccine need V04.81 and Human immunodeficiency virus (HIV) disease [address] [address] Nov, [facility] [address] [id number] Oct, [facility] [place] [facility] [address] [facility] [address] [place] [phone] Oct, [facility] [place] [facility] [address] [facility] [address] [place] [id number] Aug, [facility] [address] [place] [facility] [address] Jun, [facility] [address] [place] [facility] [address] Mar, [facility] [address] [place] [facility] [place] [address] Oct, [facility] [address] [place] [facility] [address] July, [facility] [address] [place] [facility] [address] Jun, [facility] [address] [place] [facility] [address] May, [facility] [address] [place] [facility] [place] [address] Mar, [facility] [address] [place] [facility] [place] [address] Feb, [facility] [address] [place] [facility] [place] [address] Nov, [facility] [address] [place] [facility] [place] [address] Oct, [facility] [address] [place] [facility] [place] [address] Aug, [facility] [address] [place] [facility] [place] [address] May, [facility] [address] [place] [facility] [address] Mar, IMMUNIZATIONS No Known Immunizations SOCIAL HISTORY Never Assessed REASON FOR VISIT Re: RE:Re: RE:Re: RE:Re: RE:Re: RE:Re: RE:Re: RE:Re: RE:Re: RE:Re: RE:Re: RE:Re : RE:Re: RE:RE:RE:Fatigue PLAN OF CARE VITAL SIGNS [...]
--- OUTSIDE RECORDS SUMMARY | 2017-08-18 14:51 | XMS REPORT ---
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 Name Role Phone Dulce Herrera Unavailable PROBLEMS Type Condition ICD9-CM Code HIV44-HC Code Onset Dates Condition Status SNOMED Code Problem Bipolar affective disorder F31.9 Active 37348957 Problem Nicotine dependence, cigarettes, uncomplicated F17.210 Active 36640527 Problem custodial (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 Z79.891 Active 741686944 Problem Non-intractable cyclical vomiting with nausea G43.A0 Active 31209734 Problem Poor appetite R63.0 Active 46982715 Problem Wheezing on auscultation R06.2 Active 872072592 Problem Acquired immune deficiency syndrome B20 Active 01026145 Problem Other chronic pain G89.29 Active 46729675 Problem Mood swings F39 Active 77165985 Problem Generalized anxiety disorder F41.1 Active 39312803 Problem GERD (gastroesophageal reflux disease) K21.9 Active 758482671 Problem Mixed hyperlipidemia E78.2 Active 909730637 Problem Intrinsic asthma J45.909 Active 745925241 Problem Migraine G43.909 Active 18686207 Problem Backache M54.9 Active 786144151 ALLERGIES No Information ENCOUNTERS Encounter Location Date Diagnosis [facility] [address] [place], [place] [id number] Sep, [facility] [address] [place] [address] Aug, [facility] [address] [place] [address] Aug, [facility] [address] [place] [address] Aug, [facility] [address] [place] [address] July, [facility] [address] [place] [address] July, [facility] [address] [place] [facility] [address], [facility] [address] [place] [facility] [address] July, [facility] [address] [place] [facility] [place] [address] July, [facility] [address] [place] [facility] [place] [address] July, Poor appetite R63.0 and Backache M54.[address] [facility] [address] [place] [facility] [place] [address] July, [facility] [address] [place] [facility] [place] [address] July, [facility] [address] [place] [facility] [place] [address] July, [facility] [address] [place] [facility] [place] [address] July, [facility] [address] [place] [facility] [place] [address] July, [facility] [address] [place] [facility] [place] [address] July, Nausea and vomiting R11.[address] [facility] [address] [place] [facility] [place] [address] July, [facility] [address] [place] [facility] [place] [address] July, [facility] [address] [place] [facility] [place] [address] July, [facility] [address] [place] [facility] [place] [address] July, [facility] [address] [place] [facility] [place] [address] July, [facility] [address] [place] [facility] [place] [address] July, Other chronic pain G89.[address] [facility] [address] [place] [facility] [place] [address] July, [facility] [address] [place] [facility] [place] [address] July, GERD (gastroesophageal reflux disease) K21.[address] [facility] [address] [place] [facility] [place] [address] July, [facility] [address] [place] [facility] [place] [address] Jun, [facility] [address] [place] [facility] [place] [address] Jun, [facility] [address] [place] [facility] [place] [address] Jun, [facility] [address] [place] [facility] [place] [address] Jun, [facility] [address] [place] [facility] [place] [address] Jun, Other chronic pain G89.[address] [facility] [address] [place] [facility] [place] [address] Jun, [facility] [address] [place] [facility] [place] [address] Jun, [facility] [address] [place] [facility] [place] [address] Jun, [facility] [address] [place] [facility] [place] [address] Jun, [facility] [address] [place] [facility] [place] [address] Jun, 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 [address] [place] [address] Jun, [facility] [address] [place] [address] May, Generalized abdominal pain R10.84 [facility] [address] [place] [address] May, [facility] [address] [place] [address] Apr, AIDS B20 ; Generalized abdominal pain R10.84 and Dysmenorrhea N94.6 [facility] [address] [place] [address] Apr, Acute URI J06.[address] [address] Apr, [facility] [address] [place] [address] Apr, [facility] [address] [place] [id number] Apr, Acquired immune deficiency syndrome B20 ; custodial ( 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 Z79.891 and Migraine G43.[address] [address] Mar, Dysmenorrhea N94.[address] [address] Mar, [address] [address] Mar, Generalized anxiety disorder F41.1 and Generalized abdominal pain R10.84 [facility] [address] [place] [address] Mar, [facility] [address] [place] [address] Mar, Generalized abdominal pain R10.84 and Generalized anxiety disorder F41.1 [facility] [address] [place] [address] Feb, [address] [address] Feb, Generalized abdominal pain R10.[address] [facility] [address] [place] [address] 28 Jan, 2017 Nausea and vomiting R11.2 [facility] [address] [place] [address] 18 Jan, [address] [facility] [address] [place] [address] 16 Jan, [address] [facility] [address] [place] [address] Jan, [facility] [address] [place] [address] Jan, [facility] [address] [facility] [place] [address] Jan, [facility] [address] [place] [address] 08 Jan, 2017 Mood swings F39 [facility] [address] [place] [address] Jan, [facility] [address] [place] [address] Jan, [facility] [address] [place] [address] Jan, [facility] [address] [place] [address] Jan, Dysmenorrhea N94.6 [facility] [address] [place] [id number] Jan, Acquired immune deficiency syndrome B20 ; Generalized abdominal pain R10.84 and Refused influenza vaccine Z28.21 [facility] [address] [place] [address] Jan, [facility] [address] [place] [address] Dec, Generalized abdominal pain R10.84 [facility] [address] [place] [address] Dec, Dysmenorrhea N94.6 [facility] [address] [place] [address] Dec, Backache M54.[address] 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 [address] [place] [facility] [place] [address] Sep, Dysmenorrhea N94.[address] [facility] [address] [place] [facility] [place] [address] Sep, [facility] [address] [place] [facility] [place] [address] Sep, Dysmenorrhea N94.[address] [facility] [address] [place] [facility] [place] [address] Aug, Acquired immune deficiency syndrome B20 [facility] [address] [place] [facility] [place] [address] Aug, Generalized anxiety disorder F41.1 [facility] [address] [place] [facility] [address] Aug, [facility] [address] [place] [facility] [address] Aug, [facility] [address] [place] [facility] [address] Aug, [facility] [address] [place] [facility] [address] Aug, [facility] [address] [place] [facility] [address] Aug, [facility] [address] [place] [facility] [address] Aug, [facility] [address] [place] [facility] [address] Aug, [facility] [address] [place] [facility] [place] [address] Aug, Acute opioid withdrawal F11.[address] 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 ; Hyperglycemia R73.9 ; Bipolar affective disorder F31.9 ; GERD (gastroesophageal reflux disease) K21.9 ; Backache M54.9 ; Generalized anxiety disorder F41.1 ; Mixed hyperlipidemia E78.2 ; Nicotine dependence, cigarettes, uncomplicated F17.210 and Localized edema R60.[address] [address] July, [address] [address] Jun, Backache M54.[address] [address] Jun, Chronic pain G89.[address] [address] May, Backache M54.[address] [address] May, Backache M54.[address] [address] Apr, Cough R05 [facility] [address] [place] [phone] Apr, Acquired immune deficiency syndrome B20 ; Screening examination for sexually transmitted disease Z11.3 ; Dermatitis L30.9 and Migraine with aura and with status migrainosus, not intractable G43.[address] [address] Apr, Backache M54.[address] [address] Mar, Intrinsic asthma J45.909 ; Nausea and vomiting R11.2 and AIDS B20 [address] [address] Mar, Backache M54.[address] [address] Feb, Chronic pain G89.[address] [address] Feb, Backache M54.9 [facility] [address] [place] [address] Jan, [place] [facility], 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 [facility] [address] [place] [address] Jan, Asthma, intrinsic 493.10 [facility] [address] [place] [address] Jan, [facility] [address] [place] [address] Jan, [facility] [address] [place] [address] Jan, Backache M54.[address] [address] Dec, Chronic pain G89.29 [facility] [address] [place] [id number] Dec, AIDS B20 ; Influenza vaccine needed Z23 ; Intrinsic asthma J45.909 ; Backache M54.9 ; Generalized anxiety disorder F41.1 ; Nicotine dependence, cigarettes, uncomplicated F17.210 and Mixed hyperlipidemia E78.[address] [address] Dec, [address] [address] Dec, Dysmenorrhea N94.[address] [address] Dec, [address] [address] Dec, Depression with anxiety F41.8 and Backache M54.[address] [address] Nov, [address] [address] Nov, Other chronic pain G89.[address] [address] 18 Nov, 2015 Other chronic pain G89.[address] [place] [address] Nov, [facility] [address] [place] [facility] [place] [address] Nov, Generalized anxiety disorder F41.[address] [facility] [address] [place] [facility] [place] [address] Nov, [facility] [address] [place] [facility] [place] [address] Nov, [facility] [address] [place] [facility] [place] [address] Nov, Chronic pain G89.29 [facility] [address] [place] [facility] [place] [address] Oct, [facility] [address] [place] [facility] [place] [address] Oct, Other chronic pain G89.29 [facility] [address] [facility] [place] [address] Oct, [facility] [address] [place] [facility] [place] [address] Oct, [facility] [address] [place] [facility] [place] [address] Oct, Nausea and vomiting R11.2 [facility] [address] [place] [facility] [place] [address] Oct, Chronic pain G89.29 [facility] [address] [facility] [place] [address] Sep, [facility] [address] [facility] [place] [address] Sep, Acute upper respiratory infection, unspecified J06.9 [facility] [address] [facility] [place] [address] Sep, Upper respiratory infection J06.9 [facility] [address] [facility] [place] [address] Sep, [facility] [address] [place] [facility] [place] [address] Sep, [facility] [address] [facility] [place] [address] Sep, Other chronic pain G89.29 [facility] [address] [facility] [place] [id number] Sep, AIDS B20 ; custodial (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 Z79.891 ; Smoking F17.200 ; Mixed hyperlipidemia E78.2 ; Chronic pain G89.29 and Edema R60.9 [facility] [address] [place] [address] Sep, [facility] [address] [place] [address] Sep, [facility] [address] [place] [address] Aug, [facility] [address] [place] [address] Aug, Other chronic pain G89.[address] [address] Aug, Generalized anxiety disorder F41.[address] [address] July, Other chronic pain G89.29 [facility] [address] [place] [address] July, Other chronic pain G89.[address] [address] July, [facility] [address] [place] [address] Jun, Generalized anxiety disorder F41.1 [facility] [address] [place] [address] Jun, [facility] [address] [place] [address] Jun, Other chronic pain G89.29 [facility] [address] [place] [address] Jun, Rash and other nonspecific skin eruption R21 [facility] [address] [place] [address] Jun, [facility] [address] [place] [address] Jun, [facility] [address] [place] [facility] [place] [address] Jun, [facility] [address] [place] [facility] [address] Jun, [facility] [address] [place] [facility] [address] Jun, [facility] [address] [place] [facility] [address] Jun, [facility] [address] [place] [facility] [address] Jun, [facility] [address] [place] [facility] [place] [address] Jun, Other chronic pain G89.[address] [facility] [address] [place] [facility] [place] [address] Jun, [facility] [address] [place] [facility] [place] [address] Jun, [facility] [address] [place] [facility] [place] [address] Jun, [facility] [address] [place] [facility] [address] Jun, [facility] [address] [place] [facility] [address] Jun, [facility] [address] [place] [facility] [place] [address] Jun, [facility] [address] [place] [facility] [place] [address] Jun, [facility] [address] [place] [facility] [place] [address] Jun, [facility] [address] [place] [facility] [place] [address] Jun, [facility] [address] [place] [facility] [place] [address] Jun, Nausea and vomiting R11.[address] [facility] [address] [place] [facility] [place] [address] May, [facility] [address] [place] [facility] [place] [address] May, Rash and other nonspecific skin eruption R21 [facility] [address] [place] [facility] [place] [address] May, [facility] [address] [place] [facility] [place] [address] May, [facility] [address] [facility] [address] May, [facility] [address] [place] [facility] [place] [address] May, [facility] [address] [place] [facility] [place] [address] May, [facility] [address] [place] [id number] May, Acquired immune deficiency syndrome B20 ; Screening examination for sexually transmitted disease Z11.3 ; Depression with anxiety F41.8 ; Other chronic pain G89.29 and Dermatitis L30.9 [facility] [address] [facility] [place] [address] May, [facility] [address] [facility] [place] [address] May, [facility] [address] [place] [address] May, [facility] [address] [facility] [place] [address] May, Backache M54.9 [facility] [address] [place] [address] May, Rash and other nonspecific skin eruption R21 [facility] [address] [place] [facility] [place] [address] Apr, [facility] [address] [facility] [place] [address] Apr, [facility] [address] [facility] [place] [address] Apr, Other chronic pain G89.29 [facility] [address] [place] [address] Apr, [facility] [address] [place] [address] Apr, [facility] [address] [place] [facility] [address] Apr, [facility] [address] [facility] [place] [address] Apr, [facility] [address] [place] [address] Apr, [facility] [address] [facility] [place] [address] Apr, [facility] [address] [place] [facility] [address] Apr, [facility] [address] [facility] [place] [address] Apr, [facility] [address] [facility] [place] [address] Apr, [facility] [address] [place] [address] Apr, [facility] [address] [facility] [place] [address] Apr, Other chronic pain G89.29 ; Generalized anxiety disorder F41.1 ; Nausea R11.0 and AIDS B20 [facility] [address] [place] [address] Apr, [facility] [address] [place] [address] Apr, Generalized anxiety disorder F41.1 [facility] [address] [place] [address] Apr, [facility] [address] [place] [address] Apr, Other chronic pain G89.29 [facility] [address] [facility] [place] [address] Mar, [facility] [address] [place] [id number] Mar, 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 ; Bipolar affective disorder F31.9 ; Smoking F17.200 ; Generalized anxiety disorder F41.1 ; Influenza vaccine administered Z23 and AIDS B20 [facility] [address] [place] [address] Mar, Other chronic pain G89.29 [facility] [address] [place] [address] Mar, Generalized anxiety disorder F41.[address] [address] Mar, [facility] [address] [place] [address] Mar, Asymptomatic HIV infection Z21 [address] [address] Mar, Other chronic pain G89.[address] [address] Feb, [address] [address] Feb, [facility] [address] [place] [address] Feb, [facility] [address] [place] [address] Feb, [address] [address] Feb, [address] [address] Jan, Other chronic pain G89.29 and Nausea & vomiting R11.[address] [address] Jan, Other chronic pain G89.29 [facility] [address] [place] [address] Dec, [facility] [address] [place] [address] Dec, Other chronic pain G89.29 ; Asymptomatic HIV infection Z21 ; Intrinsic asthma J45.909 ; Bipolar affective disorder F31.9 ; Noncompliance Z91.19 ; Migraine G43.909 ; Tobacco use disorder Z72.0 ; GERD (gastroesophageal reflux disease) K21.9 ; Backache M54.9 and Generalized anxiety disorder F41.1 [facility] [address] [place] [address] Nov, [facility] [address] [place] [address] Nov, [facility] [address] [place] [address] Oct, Other chronic pain 338.[address] [address] Oct, [address] [address] Oct, Unspecified backache 724.5 and Dysphagia 787.[address] [address] Sep, Other chronic pain 338.[address] [address] Sep, [address] [address] Aug, URI (upper respiratory infection) 465.9 and Diarrhea 787.[address] [address] Aug, [address] [address] Aug, Other chronic pain 338.[address] [address] Aug, Other chronic pain 338.29 and Generalized anxiety disorder 300.[address] [address] Aug, [facility] [address] [place] [address] July, Other chronic pain 338.29 [facility] [address] [place] [id number] July, Nondependent tobacco use disorder 305.1 ; Unspecified backache 724.5 ; Other chronic pain 338.29 ; Abdominal pain, unspecified site 789.00 ; 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.69 and Acquired immune deficiency syndrome 042 [facility] [address] [place] [address] July, Other chronic pain 338.29 [facility] [address] [place] [address] Jun, Other chronic pain 338.29 [facility] [address] [place] [address] Jun, [facility] [address] [place] [address] Jun, Other chronic pain 338.29 [facility] [address] [place] [address] Jun, URI (upper respiratory infection) 465.9 [facility] [address] [place] [address] Jun, Generalized anxiety disorder 300.02 and Seasonal allergies 477.[address] [address] Jun, Generalized anxiety disorder 300.02 [facility] [address] [place] [address] May, Other chronic pain 338.29 [facility] [address] [place] [address] May, Other chronic pain 338.29 and Generalized anxiety disorder 300.02 [facility] [address] [place] [address] Apr, Asthma, intrinsic 493.10 and Acute upper respiratory infections of other multiple sites 465.8 [facility] [address] [place] [address] Apr, [facility] [address] [facility] [address] [place], [place] [id number] Apr, Depressive disorder 311 [facility] [address] [place] [address] Apr, Other chronic pain 338.29 [facility] [address] [place] [address] Apr, [facility] [address] Apr, Other chronic pain 338.[address] [address] 14 Mar, 2014 Acute upper respiratory infections of unspecified site 465.9 [facility] [address] [place] [id number] Mar, Migraine 346.90 ; Nondependent tobacco use disorder 305.1 ; Esophageal reflux 530.81 ; Unspecified backache 724.5 ; Abdominal pain, generalized 789.07 ; Flatulence, eructation, and gas pain 787.3 ; Asymptomatic human immunodeficiency virus (HIV) infection status V08 ; Dyspepsia and other specified disorders of function of stomach 536.8 ; Nausea alone 787.02 and Asthma 493.[address] [address] Mar, Other chronic pain 338.[address] [address] Feb, Other chronic pain 338.29 and Generalized anxiety disorder 300.[address] [address] Feb, Abdominal pain, generalized 789.[address] [address] Jan, Abdominal pain, generalized 789.07 [facility] [address] [place] [id number] Dec, [address] [address] Dec, [address] [address] Dec, Unspecified backache 724.[address] [address] Dec, [address] [address] Nov, [facility] [address] [facility] [address] [place] [id number] Nov, [facility] [address] [facility] [id number] Nov, Bipolar disorder, unspecified 296.80 ; Abdominal pain, generalized 789.07 ; Generalized anxiety disorder 300.02 ; Nausea alone 787.02 ; Flu vaccine need V04.81 and Human immunodeficiency virus (HIV) disease 042 [facility] [address] [place] [facility] [place] [address] Nov, [facility] [place] [facility] [address] [facility] [address] [place] [id number] Oct, [facility] [place] [facility] [address] [facility] [address] [place] [id number] Oct, [facility] [address] [facility] [address] [place] [id number] Aug, [facility] [address] [place] [facility] [place] [address] Jun, [facility] [address] [place] [facility] [place] [address] Mar, [facility] [address] [place] [facility] [place] [address] Oct, [facility] [address] [place] [facility] [place] [address] July, [facility] [address] [facility] [place] [address] Jun, [facility] [address] [place] [address] May, [facility] [address] [place] [facility] [address] Mar, [facility] [address] [place] [facility] [place] [address] Feb, [facility] [address] [place] [facility] [place] [address] Nov, [facility] [address] [facility] [place] [address] Oct, [facility] [address] [place] [facility] [place] [address] Aug, [facility] [address] [place] [facility] [address] May, [facility] [address] [place] [address] Mar, IMMUNIZATIONS No Known Immunizations SOCIAL HISTORY Never Assessed REASON FOR VISIT tramadol not wrk PLAN OF CARE VITAL SIGNS MEDICATIONS Unknown [...]
--- OUTSIDE RECORDS SUMMARY | 2017-08-18 14:51 | XMS REPORT ---
Author Dulce Clark [facility] Address [address] [place], [place] [id number] Care Team Providers Care Solar Technician Name Role Phone Dulce Olvera Unavailable PROBLEMS Type Condition ICD9-CM Code WVK05-MR Code Onset Dates Condition Status SNOMED Code Problem GERD (gastroesophageal reflux disease) K21.9 Active 886671880 Problem Backache M54.9 Active 303370501 Problem Intrinsic asthma J45.909 Active 397147509 Problem Mixed hyperlipidemia E78.2 Active 490721962 Problem Migraine G43.909 Active 45264323 Problem Generalized anxiety disorder F41.1 Active 27189550 Problem Mood swings F39 Active 20882373 Problem Wheezing on auscultation R06.2 Active 001348024 Problem prison (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
--- OUTSIDE RECORDS SUMMARY | 2017-08-18 14:52 | XMS REPORT ---
Author Author Zandra Watson [facility] Address [address] [place], [place] [id number] Care Team Providers Care Courier Driver Name Role Phone Zandra Watson Unavailable PROBLEMS Type Condition ICD9-CM Code XCH88-BQ Code Onset Dates Condition Status SNOMED Code Problem Bipolar affective disorder F31.9 Active 58152916 Problem nursing home (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 Z79.891 Active 325288525 Problem Intrinsic asthma J45.909 Active 617089520 Problem Acquired immune deficiency syndrome B20 Active 69037160 Problem Hyperglycemia R73.9 Active 74443853 Problem Dysmenorrhea N94.6 Active 143043558 Problem Nicotine dependence, cigarettes, uncomplicated F17.210 Active 48100110 Problem Localized edema R60.0 Active 395782124 Problem Dermatitis L30.9 Active 70304929 Problem Generalized anxiety disorder F41.1 Active 57362431 Problem Backache M54.9 Active 683863408 Problem GERD (gastroesophageal reflux disease) K21.9 Active 329442704 Problem Mixed hyperlipidemia E78.2 Active 695308624 Problem Migraine G43.909 Active 04790714 ALLERGIES Unknown Allergies SOCIAL HISTORY No smoking Hx information available PLAN OF CARE VITAL SIGNS MEDICATIONS Medication Instructions Dosage Frequency Start Date End Date Duration Status Zofran 8 TAKE ONE TABLET BY MOUTH EVERY 8 HOURS FOR 10 DAYS 10 Active Tramadol HCl 50 MG Orally every 8 hrs 1 tablet as needed 8h Sep, Sep, 15 days Active Dicyclomine HCl 20 MG Orally three times a day 1 tablet 8h July, 30 day(s) Active Methocarbamol 750 Orally every 8 hrs 1 tablet 8h 10 Active Stribild [phone] MG Orally Once a day 1 tablet 24h Aug, 30 days Active Methocarbamol 750 MG Orally every 8 hrs 1 tablet 8h Dec, 10 days Active Promethazine HCl 25 MG Orally three times a day 1 tablet as needed 8h Mar, 30 day(s) Active Xanax 1 MG Orally Twice a day 1 tablet as needed 12h 23 Sep, 2013 Sep, 30 days Active [facility] Omeprazole 20 [...] is <100/60 4h 08 Aug, 2016 Active ProAir HFA 108 (90 Base) MCG/ACT Inhalation every 4 hrs 2 puffs as needed 4h Sep, 30 days Active Dapsone 100 MG Orally Once a day 1 tablet 24h 24 Apr, 2015 30 days Active RESULTS No Results PROCEDURES No Known procedures IMMUNIZATIONS No Known Immunizations
--- OUTSIDE RECORDS SUMMARY | 2017-08-18 14:52 | XMS REPORT ---
Author Author Salome Solis [facility] Address [address] [place], [place] [id number] Care Team Providers Care Loss Prevention Representative Name Role Phone Salome Solis Unavailable PROBLEMS Type Condition ICD9-CM Code SEH38-AI Code Onset Dates Condition Status SNOMED Code Problem Backache M54.9 Active 486156307 Problem Migraine G43.909 Active 90895533 Problem GERD (gastroesophageal reflux disease) K21.9 Active 008465705 Problem Mixed hyperlipidemia E78.2 Active 411620759 Problem Generalized anxiety disorder F41.1 Active 13607531 Problem Wheezing on auscultation R06.2 Active 838879790 Problem Acquired immune deficiency syndrome B20 Active 86183365 Problem Intrinsic asthma J45.909 Active 842793902 Problem Bipolar affective disorder F31.9 Active 69896678 Problem Nicotine dependence, cigarettes, uncomplicated F17.210 Active 54258686 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
--- OUTSIDE RECORDS SUMMARY | 2017-08-18 14:52 | XMS REPORT ---
Author Dulce Olvera [facility] Address [address], [place] [address] Care Team Providers Care Armor Reconnaissance Specialist Name Role Phone Dulce Olvera Unavailable PROBLEMS Type Condition ICD9-CM Code ZAV25-TZ Code Onset Dates Condition Status SNOMED Code Problem GERD (gastroesophageal reflux disease) K21.9 Active 395614509 Problem Backache M54.9 Active 857888877 Problem Intrinsic asthma J45.909 Active 027442293 Problem Mixed hyperlipidemia E78.2 Active 343272285 Problem Migraine G43.909 Active 54150943 Problem Generalized anxiety disorder F41.1 Active 35455671 Problem Mood swings F39 Active 99280785 Problem Wheezing on auscultation R06.2 Active 852266703 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 Active 381025188 Problem Bipolar affective disorder F31.9 Active 19468849 Problem Acquired immune deficiency syndrome B20 Active 59207321 Problem Nicotine dependence, cigarettes, uncomplicated F17.210 Active 83042350 ALLERGIES No Information ENCOUNTERS Encounter Location Date Diagnosis [facility] [address] [place] [id number] Jun, [address] [address] Jun, [address] [address] May, Generalized abdominal pain R10.[address] [address] May, [address] [address] Apr, AIDS B20 ; Generalized abdominal pain R10.84 and Dysmenorrhea N94.[address] [address] Apr, Acute URI J06.9 [facility] [address] [place] [address] Apr, [facility] [address] [place] [address] Apr, [place] [facility] [address] [facility] [address] [place] [id number] Apr, Acquired immune deficiency syndrome B20 ; residential ( 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 Z79.891 and Migraine G43.909 [facility] [address] [place] [address] Mar, Dysmenorrhea N94.6 [facility] [address] [place] [address] Mar, [facility] [address] [place] [address] Mar, Generalized anxiety disorder F41.1 and Generalized abdominal pain R10.84 [facility] [address] [place] [address] Mar, [facility] [address] [place] [address] Mar, Generalized abdominal pain R10.84 and Generalized anxiety disorder F41.1 [facility] [address] [place] [address] Feb, [address] [address] Feb, Generalized abdominal pain R10.84 [facility] [address] [place] [address] Jan, Nausea and vomiting R11.2 [facility] [address] [place] [address] Jan, [facility] [address] [place] [address] Jan, [facility] [address] [place] [address] Jan, [facility] [address] [place] [address] Jan, [facility] [address] [place] [address] 14 Jan, 2017 [facility] [address] [place] [address] Jan, Mood swings F39 [facility] [address] [place] [address] 08 Jan, 2017 [facility] [address] [place] [address] Jan, [facility] [address] [place] [address] Jan, [facility] [address] [place] [address] Jan, Dysmenorrhea N94.6 [facility] [address] [place] [id number] Jan, Acquired immune deficiency syndrome B20 ; Generalized abdominal pain R10.84 and Refused influenza vaccine Z28.21 [facility] [address] [place] [address] Jan, [facility] [address] [place] [address] Dec, Generalized abdominal pain R10.84 [facility] [address] [place] [address] Dec, Dysmenorrhea N94.6 [facility] [address] [place] [address] Dec, Backache M54.9 [facility] [address] [place] [address] Nov, Generalized abdominal pain R10.84 [facility] [address] [place] [address] Nov, Generalized anxiety disorder F41.1 [facility] [address] [place] [address] Nov, Dysmenorrhea N94.6 [facility] [address] [place] [address] Oct, [facility] [address] [place] [address] Oct, [facility] [address] [place] [address] Oct, [facility] [address] [place] [address] Oct, Generalized abdominal pain R10.84 [place] [facility] [address] [facility] [address] [place] [id number] Oct, Acquired immune deficiency syndrome B20 ; residential 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 Z79.891 ; Bipolar affective disorder F31.9 ; Generalized anxiety disorder F41.1 ; Backache M54.9 ; Mixed hyperlipidemia E78.2 ; Nicotine dependence, cigarettes, uncomplicated F17.210 and Wheezing on auscultation R06.[address] [address] Oct, Oral candidiasis B37.[address] [address] Oct, [facility] [address] [address] Oct, Acute upper respiratory infection J06.[address] [address] Oct, Acute upper respiratory infection J06.[address] [address] Sep, Dysmenorrhea N94.[address] [address] Sep, Generalized anxiety disorder F41.[address] [address] Sep, Dysmenorrhea N94.6 [facility] [address] [place] [address] Sep, [facility] [address] [place] [address] Sep, Dysmenorrhea N94.6 [facility] [address] [place] [address] Aug, Acquired immune deficiency syndrome B20 [facility] [address] [place] [address] Aug, Generalized anxiety disorder F41.1 [facility] [address] [place] [address] Aug, [facility] [address] [place] [address] Aug, [facility] [address] [place] [facility] [place] [address] Aug, [facility] [address] [place] [address] Aug, [facility] [address] [place] [address] Aug, [facility] [address] [place] [address] Aug, [facility] [address] [place] [address] Aug, [facility] [address] [place] [address] Aug, Acute opioid withdrawal F11.23 [facility] [address] [place] [address] July, Upper respiratory infection J06.9 [facility] [address] [place] [address] July, Backache M54.9 [place] [facility] [address] [place] [id number] July, Acquired immune deficiency syndrome B20 ; 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 ; Hyperglycemia R73.9 ; Bipolar affective disorder F31.9 ; GERD (gastroesophageal reflux disease) K21.9 ; Backache M54.9 ; Generalized anxiety disorder F41.1 ; Mixed hyperlipidemia E78.2 ; Nicotine dependence, cigarettes, uncomplicated F17.210 and Localized edema R60.0 [facility] [address] [place] [address] July, [facility] [address] [place] [address] Jun, Backache M54.9 [facility] [address] [place] [address] Jun, Chronic pain G89.29 [facility] [address] [place] [address] May, Backache M54.9 [facility] [address] [place] [address] May, Backache M54.9 [facility] [address] [place] [address] Apr, Cough R05 [place] [facility] [address] [facility] [address] [place] [id number] Apr, Acquired immune deficiency syndrome B20 ; Screening examination for sexually transmitted disease Z11.3 ; Dermatitis L30.9 and Migraine with aura and with status migrainosus, not intractable G43.[address] [address] Apr, Backache M54.[address] [address] Mar, Intrinsic asthma J45.909 ; Nausea and vomiting R11.2 and AIDS B20 [address] [address] Mar, Backache M54.[address] [address] Feb, Chronic pain G89.[address] [address] Feb, Backache M54.[address] [address] Jan, [place] [facility], 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 [address] Jan, Asthma, intrinsic 493.[address] [address] Jan, [address] [address] Jan, [address] [address] Jan, Backache M54.9 [facility] [address] [place] [address] 30 Dec, 2015 Chronic pain G89.29 [place] [facility] [address] [facility] [address] [place] [id number] Dec, AIDS B20 ; Influenza vaccine needed Z23 ; Intrinsic asthma J45.909 ; Backache M54.9 ; Generalized anxiety disorder F41.1 ; Nicotine dependence, cigarettes, uncomplicated F17.210 and Mixed hyperlipidemia E78.2 [facility] [address] [place] [address] Dec, [facility] [address] [place] [address] Dec, Dysmenorrhea N94.6 [facility] [address] [place] [address] Dec, [facility] [address] [place] [address] Dec, Depression with anxiety F41.8 and Backache M54.9 [facility] [address] [place] [address] 19 Nov, 2015 [facility] [address] [place] [address] 19 Nov, 2015 Other chronic pain G89.29 [facility] [address] [place] [address] 18 Nov, 2015 Other chronic pain G89.29 [facility] [address] [place] [address] 18 Nov, 2015 [facility] [address] [place] [address] 14 Nov, 2015 Generalized anxiety disorder F41.1 [facility] [address] [place] [address] 06 Nov, 2015 [facility] [address] [place] [address] 06 Nov, 2015 [facility] [address] [place] [address] 04 Nov, 2015 Chronic pain G89.29 [facility] [address] [place] [address] Oct, [facility] [address] [place] [address] Oct, Other chronic pain G89.29 [facility] [address] [place] [address] Oct, [facility] [address] [place] [address] Oct, [facility] [address] [place] [address] Oct, Nausea and vomiting R11.2 [facility] [address] [place] [address] Oct, Chronic pain G89.[address] [address] Sep, [facility] [address] [place] [address] Sep, Acute upper respiratory infection, unspecified J06.[address] [address] Sep, Upper respiratory infection J06.[address] [address] Sep, [address] [address] Sep, [facility] [address] [place] [address] Sep, Other chronic pain G89.29 [facility] [address] [place] [id number] Sep, AIDS B20 ; 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 ; Smoking F17.200 ; Mixed hyperlipidemia E78.2 ; Chronic pain G89.29 and Edema R60.9 [facility] [address] [place] [address] Sep, [facility] [address] [place] [address] Sep, [facility] [address] [place] [address] Aug, [facility] [address] [place] [facility] [place] [address] Aug, Other chronic pain G89.29 [facility] [address] [place] [facility] [place] [address] Aug, Generalized anxiety disorder F41.1 [facility] [address] [place] [facility] [place] [address] July, Other chronic pain G89.29 [facility] [address] [place] [facility] [place] [address] July, Other chronic pain G89.29 [facility] [address] [place] [facility] [place] [address] July, [facility] [address] [place] [facility] [place] [address] Jun, Generalized anxiety disorder F41.1 [facility] [address] [place] [facility] [place] [address] Jun, [facility] [address] [place] [facility] [place] [address] Jun, Other chronic pain G89.29 [facility] [address] [place] [facility] [place] [address] Jun, Rash and other nonspecific skin eruption R21 [facility] [address] [place] [facility] [place] [address] Jun, [facility] [address] [place] [facility] [place] [address] Jun, [facility] [address] [place] [facility] [place] [address] Jun, [facility] [address] [place] [facility] [place] [address] Jun, [facility] [address] [place] [facility] [place] [address] Jun, [facility] [address] [place] [facility] [place] [address] Jun, [facility] [address] [place] [facility] [place] [address] Jun, [facility] [address] [place] [address] Jun, Other chronic pain G89.29 [facility] [address] [place] [facility] [place] [address] Jun, [facility] [address] [place] [facility] [place] [address] Jun, [facility] [address] [place] [facility] [place] [address] Jun, [facility] [address] [place] [facility] [place] [address] Jun, [facility] [address] [place] [facility] [place] [address] Jun, [facility] [address] [place] [facility] [place] [address] Jun, [facility] [address] [place] [facility] [place] [address] Jun, [facility] [address] [place] [facility] [place] [address] Jun, [facility] [address] [place] [facility] [place] [address] Jun, [facility] [address] [place] [facility] [place] [address] Jun, Nausea and vomiting R11.2 [facility] [address] [place] [facility] [place] [address] May, [facility] [address] [place] [facility] [place] [address] May, Rash and other nonspecific skin eruption R21 [facility] [address] [place] [facility] [place] [address] May, [facility] [address] [place] [facility] [place] [address] May, [facility] [address] [place] [facility] [place] [address] May, [facility] [address] [place] [facility] [place] [address] May, [facility] [address] [place] [address] May, [address] [place] [id number] May, Acquired immune deficiency syndrome B20 ; Screening examination for sexually transmitted disease Z11.3 ; Depression with anxiety F41.8 ; Other chronic pain G89.29 and Dermatitis L30.9 [facility] [address] [place] [address] May, [facility] [address] [place] [address] May, [facility] [address] [place] [address] May, [facility] [address] [address] May, Backache M54.9 [facility] [address] [address] May, Rash and other nonspecific skin eruption R21 [facility] [address] [address] Apr, [facility] [address] [place] [address] Apr, [facility] [address] [address] Apr, Other chronic pain G89.29 [facility] [address] [address] Apr, [facility] [address] [address] Apr, [facility] [address] [place] [address] Apr, [facility] [address] [place] [address] Apr, [facility] [address] [place] [address] Apr, [facility] [address] [place] [address] Apr, [facility] [address] [place] [address] Apr, [facility] [address] [place] [address] Apr, [facility] [address] [place] [address] Apr, [facility] [address] [place] [address] Apr, [facility] [address] [place] [address] Apr, Other chronic pain G89.29 ; Generalized anxiety disorder F41.1 ; Nausea R11.0 and AIDS B20 [facility] [address] [place] [address] Apr, [facility] [address] [place] [address] Apr, Generalized anxiety disorder F41.1 [facility] [address] [place] [address] Apr, [facility] [address] [place] [address] Apr, Other chronic pain G89.29 [facility] [address] [place] [address] Mar, [facility] [address] [place] [id number] Mar, 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 ; Bipolar affective disorder F31.9 ; Smoking F17.200 ; Generalized anxiety disorder F41.1 ; Influenza vaccine administered Z23 and AIDS B20 [facility] [address] [place] [address] Mar, Other chronic pain G89.29 [facility] [address] [place] [address] Mar, Generalized anxiety disorder F41.1 [facility] [address] [place] [address] Mar, [facility] [address] [place] [address] Mar, Asymptomatic HIV infection Z21 [facility] [address] [place] [address] Mar, Other chronic pain G89.29 [facility] [address] [place] [address] Feb, [facility] [address] [place] [address] Feb, [facility] [address] [place] [address] Feb, [facility] [address] [place] [address] Feb, [facility] [address] [place] [address] Feb, [facility] [address] [place] [address] Jan, Other chronic pain G89.29 and Nausea & vomiting R11.2 [facility] [address] [place] [address] Jan, Other chronic pain G89.29 [facility] [address] [place] [address] Dec, [facility] [address] [place] [address] Dec, Other chronic pain G89.29 ; Asymptomatic HIV infection Z21 ; Intrinsic asthma J45.909 ; Bipolar affective disorder F31.9 ; Noncompliance Z91.19 ; Migraine G43.909 ; Tobacco use disorder Z72.0 ; GERD (gastroesophageal reflux disease) K21.9 ; Backache M54.9 and Generalized anxiety disorder F41.1 [facility] [address] [place] [address] Nov, [facility] [address] [place] [address] Nov, [facility] [address] [place] [address] Oct, Other chronic pain 338.29 [facility] [address] [place] [address] Oct, [facility] [address] [place] [address] Oct, Unspecified backache 724.5 and Dysphagia 787.20 [facility] [address] [place] [address] Sep, Other chronic pain 338.29 [facility] [address] [place] [address] Sep, [facility] [address] [place] [address] Aug, URI (upper respiratory infection) 465.9 and Diarrhea 787.91 [facility] [address] [place] [address] Aug, [facility] [address] [place] [address] Aug, Other chronic pain 338.29 [facility] [address] [place] [address] Aug, Other chronic pain 338.29 and Generalized anxiety disorder 300.[address] [address] Aug, [facility] [address] [place] [address] July, Other chronic pain 338.29 [facility] [address] [place] [id number] July, Nondependent tobacco use disorder 305.1 ; Unspecified backache 724.5 ; Other chronic pain 338.29 ; Abdominal pain, unspecified site 789.00 ; 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 and Acquired immune deficiency syndrome 042 [facility] [address] [place] [address] July, Other chronic pain 338.29 [facility] [address] [place] [address] Jun, Other chronic pain 338.29 [facility] [address] [place] [address] Jun, [facility] [address] [place] [address] Jun, Other chronic pain 338.29 [facility] [address] [place] [address] Jun, URI (upper respiratory infection) 465.9 [facility] [address] [place] [address] Jun, Generalized anxiety disorder 300.02 and Seasonal allergies 477.[address] [address] Jun, Generalized anxiety disorder 300.[address] [address] May, Other chronic pain 338.[address] [address] May, Other chronic pain 338.29 and Generalized anxiety disorder 300.[address] [address] Apr, Asthma, intrinsic 493.10 and Acute upper respiratory infections of other multiple sites 465.[address] [address] Apr, [facility] [address] [facility] [address] [place], [place] [id number] Apr, Depressive disorder [address] [address] Apr, Other chronic pain 338.[address] [address] Apr, [address] [address] Apr, Other chronic pain 338.[address] [address] Mar, Acute upper respiratory infections of unspecified site 465.9 [facility] [address] [place] [id number] Mar, Migraine 346.90 ; Nondependent tobacco use disorder 305.1 ; Esophageal reflux 530.81 ; Unspecified backache 724.5 ; Abdominal pain, generalized 789.07 ; Flatulence, eructation, and gas pain 787.3 ; Asymptomatic human immunodeficiency virus (HIV) infection status V08 ; Dyspepsia and other specified disorders of function of stomach 536.8 ; Nausea alone 787.02 and Asthma 493.90 [facility] [address] [place] [address] Mar, Other chronic pain 338.29 [facility] [address] [place] [address] Feb, Other chronic pain 338.29 and Generalized anxiety disorder 300.[address] [address] Feb, Abdominal pain, generalized 789.[address] [address] Jan, Abdominal pain, generalized 789.[address] [id number] Dec, [address] [address] Dec, [address] [address] Dec, Unspecified backache 724.[address] [address] Dec, [address] [address] Nov, [place] [address] [facility] [address] [place] [id number] Nov, [facility] [address] [place] [id number] Nov, Bipolar disorder, unspecified 296.80 ; Abdominal pain, generalized 789.07 ; Generalized anxiety disorder 300.02 ; Nausea alone 787.02 ; Flu vaccine need V04.81 and Human immunodeficiency virus (HIV) disease 042 [facility] [address] [place] [address] Nov, [facility] [address] [facility] [address] [place], [place] [id number] Oct, [facility] [address] [facility] [address] [place] [id number] Oct, [facility] [address] [facility] [address] [place] [id number] Aug, [facility] [facility] [address] [facility] [place] [address] Jun, [facility] [address] [facility] [place] [address] Mar, [facility] [address] [facility] [place] [address] Oct, [facility] [address] [facility] [place] [address] July, [facility] [address] [facility] [place] [address] Jun, [facility] [address] [facility] [place] [address] May, [facility] [address] [facility] [place] [address] Mar, [facility] [address] [facility] [place] [address] Feb, [facility] [address] [facility] [place] [address] Nov, [facility] [address] [facility] [place] [address] Oct, [facility] [address] [facility] [place] [address] Aug, [facility] [address] [facility] [place] [address] May, [facility] [address] [facility] [place] [address] Mar, IMMUNIZATIONS No Known Immunizations SOCIAL HISTORY Never Assessed REASON FOR VISIT urgent PLAN OF CARE VITAL SIGNS MEDICATIONS Medication Instructions Dosage Frequency Start Date End Date Duration Status Hydrochlorothiazide 25 MG Orally Once a day 1 tablet in the morning 24h July, 30 day(s) Active Dapsone 100 MG Orally Once a day 1 tablet 24h 24 Apr, 2015 30 days Active HydrOXYzine HCl 25 MG Orally every 12 hrs 1 tablet 12h Jan, 30 day(s) Active Ventolin HFA 108 (90 Base) MCG/ACT Inhalation every 4 hrs 2 puffs as needed 4h Oct, 30 days Active Dicyclomine HCl 20 MG Orally three times a day 1 tablet 8h 12 Jul, 2016 30 day(s) Active Methocarbamol 750 MG Orally every 8 hrs 1 tablet 8h 18 Dec, 2015 10 days Active Promethazine HCl 25 MG Orally three times a day 1 tablet as needed 8h 20 Mar, 2016 30 day(s) Active Tramadol HCl 50 MG Orally every 4-6 hrs 1 tablet as needed Sep, 30 days Active Methocarbamol 750 TAKE ONE TABLET BY MOUTH EVERY 8 HOURS FOR 10 DAYS 10 Active Diflucan 150 Orally Once a day 1 tablet 24h 5 Active Zofran 8 mg TAKE ONE TABLET BY MOUTH EVERY 8 HOURS FOR 10 DAYS 10 Active Marinol 10 MG Orally Twice a day 1 capsule before lunch and supper 12h Jun, 30 days Active ProAir HFA 108 (90 Base) MCG/ACT Inhalation every 4 hrs 2 puffs as needed 4h Sep, 30 days Active Xanax 1 MG Orally Twice a day 1 tablet as needed 12h 23 Sep, 2013 30 days Active Stribild [phone] MG Orally Once a day 1 tablet 24h Aug, 30 days Active Clonidine HCl 0.1 MG Orally every 4 hrs 1 tablet as needed do not take is BP is <100/60 4h 08 Aug, 2016 Active Zithromax Z-Riky 250 MG Orally Once a day 2 tablets on the first day, then 1 tablet daily for 4 days 24h May, 5 day(s) Active [facility] Omeprazole 20 MG Orally Once a day 1 tablet 24h 29 Mar, 2015 30 day (s) Active Hydrocodone-Acetaminophen 10-325 MG Orally every 6 hrs 1 tablet as needed 6h Oct, Jun, 30 days Active RESULTS No Results [...]
--- OUTSIDE RECORDS SUMMARY | 2017-08-18 14:53 | XMS REPORT ---
Author Author Salome Solis [facility] Address [address], [place] [id number] Care Team Providers Care Refrigerating Engineer Name Role Phone Salome Solis Unavailable PROBLEMS Type Condition ICD9-CM Code SST13-VE Code Onset Dates Condition Status SNOMED Code Problem Generalized anxiety disorder F41.1 Active 32756350 Problem Intrinsic asthma J45.909 Active 676042513 Problem GERD (gastroesophageal reflux disease) K21.9 Active 489046925 Problem Mixed hyperlipidemia E78.2 Active 575486219 Problem Migraine G43.909 Active 45220887 Problem Wheezing on auscultation R06.2 Active 739341853 Problem Acquired immune deficiency syndrome B20 Active 19523934 Problem Bipolar affective disorder F31.9 Active 86382080 Problem Backache M54.9 Active 087447015 Problem Nicotine dependence, cigarettes, uncomplicated F17.210 Active 99118095 Problem nutrition worker (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
--- OUTSIDE RECORDS SUMMARY | 2017-08-18 14:53 | XMS REPORT ---
Author Author Viridiana Villanueva [facility] Address [address] [place] [address] Care Team Providers Care Linotypist Name Role Phone Viridiana Villanueva Unavailable PROBLEMS Type Condition ICD9-CM Code VXM39-TS Code Onset Dates Condition Status SNOMED Code Problem Bipolar affective disorder F31.9 Active 77131837 Problem Nicotine dependence, cigarettes, uncomplicated F17.210 Active 40996710 Problem long term (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 Z79.891 Active 163742698 Problem Non-intractable cyclical vomiting with nausea G43.A0 Active 60841838 Problem Poor appetite R63.0 Active 84363710 Problem Wheezing on auscultation R06.2 Active 099055669 Problem Acquired immune deficiency syndrome B20 Active 68106484 Problem Other chronic pain G89.29 Active 06444829 Problem Mood swings F39 Active 50716728 Problem Generalized anxiety disorder F41.1 Active 04568401 Problem GERD (gastroesophageal reflux disease) K21.9 Active 914098190 Problem Mixed hyperlipidemia E78.2 Active 014419445 Problem Intrinsic asthma J45.909 Active 159765212 Problem Migraine G43.909 Active 70680279 Problem Backache M54.9 Active [id number] ALLERGIES No Information ENCOUNTERS Encounter Location Date Diagnosis [facility] [address] [place] [id number] Sep, [facility] [address] [place] [address] Aug, [facility] [address] [place] [address] Aug, [facility] [address] [place] [address] Aug, [facility] [address] [place] [address] July, [facility] [address] [place] [address] July, [facility] [address] [facility] [place] [address] July, [facility] [address] [place] [facility] [place] [address] July, [facility] [address] [place] [facility] [place] [address] July, [facility] [address] [place] [facility] [place] [address] July, Poor appetite R63.0 and Backache M54.9 [facility] [address] [place] [facility] [place] [address] July, [facility] [address] [place] [facility] [place] [address] July, [facility] [address] [place] [facility] [place] [address] July, [facility] [address] [place] [facility] [place] [address] July, [facility] [address] [facility] [place] [address] July, [facility] [address] [place] [facility] [place] [address] July, Nausea and vomiting R11.2 [facility] [address] [place] [facility] [place] [address] July, [facility] [address] [place] [facility] [place] [address] July, [facility] [address] [place] [facility] [place] [address] July, [facility] [address] [place] [facility] [place] [address] July, [facility] [address] [place] [facility] [place] [address] July, [facility] [address] [facility] [place] [address] July, Other chronic pain G89.29 [facility] [address] [place] [facility] [place] [address] July, [facility] [address] [facility] [place] [address] July, GERD (gastroesophageal reflux disease) K21.9 [facility] [address] [place] [facility] [place] [address] July, [facility] [address] [place] [facility] [place] [address] Jun, [facility] [address] [place] [facility] [place] [address] Jun, [facility] [address] [place] [facility] [place] [address] Jun, [facility] [address] [place] [facility] [place] [address] Jun, [facility] [address] [facility] [place] [address] Jun, Other chronic pain G89.29 [facility] [address] [place] [facility] [place] [address] Jun, [facility] [address] [facility] [place] [address] Jun, [facility] [address] [place] [facility] [place] [address] Jun, [facility] [address] [place] [facility] [place] [address] Jun, [facility] [address] [place] [facility] [place] [address] Jun, [facility] [address] [place] [facility] [place] [address] Jun, Generalized anxiety disorder F41.1 ; Other chronic pain G89.29 and Non-intractable cyclical vomiting with nausea G43.A0 [facility] [address] [place] [id number] Jun, Acquired immune deficiency syndrome B20 ; halfway ( 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 Z79.891 ; Nicotine dependence, cigarettes, uncomplicated F17.210 ; Lower respiratory infection J22 ; Poor appetite R63.0 ; Other chronic pain G89.29 ; Generalized anxiety disorder F41.1 and Need for tetanus booster Z23 [facility] [address] [place] [address] Jun, [facility] [address] [place] [address] May, Generalized abdominal pain R10.[address] [facility] [address] [place] [address] May, [facility] [address] [place] [address] Apr, AIDS B20 ; Generalized abdominal pain R10.84 and Dysmenorrhea N94.[address] [facility] [address] [place] [address] Apr, Acute URI J06.[address] [address] Apr, [facility] [address] [place] [address] Apr, [facility] [address] [place] [phone] Apr, Acquired immune deficiency syndrome B20 ; halfway ( 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 Z79.891 and Migraine G43.[address] [address] Mar, Dysmenorrhea N94.[address] [address] Mar, [address] [address] Mar, Generalized anxiety disorder F41.1 and Generalized abdominal pain R10.[address] [facility] [address] [place] [address] Mar, [facility] [address] [place] [address] Mar, Generalized abdominal pain R10.84 and Generalized anxiety disorder F41.[address] [facility] [address] [place] [address] Feb, [address] [address] Feb, Generalized abdominal pain R10.84 [facility] [address] [place] [address] 28 Jan, 2017 Nausea and vomiting R11.2 [facility] [address] [place] [address] 18 Jan, 2017 [facility] [address] [place] [address] 16 Jan, 2017 [facility] [address] [place] [address] Jan, [facility] [address] [place] [address] Jan, [facility] [address] [place] [address] Jan, [facility] [address] [place] [address] 08 Jan, 2017 Mood swings F39 [facility] [address] [place] [address] Jan, [facility] [address] [place] [address] Jan, [facility] [address] [place] [address] Jan, [facility] [address] [place] [address] Jan, Dysmenorrhea N94.6 [facility] [address] [place] [phone] Jan, Acquired immune deficiency syndrome B20 ; Generalized abdominal pain R10.84 and Refused influenza vaccine Z28.21 [facility] [address] [place] [address] Jan, [facility] [address] [place] [address] Dec, Generalized abdominal pain R10.84 [facility] [address] [place] [address] Dec, Dysmenorrhea N94.6 [facility] [address] [place] [address] Dec, Backache M54.[address] [facility] [address] Nov, Generalized abdominal pain R10.[address] [address] Nov, Generalized anxiety disorder F41.[address] [address] Nov, Dysmenorrhea N94.[address] [address] Oct, [address] [address] Oct, [address] [address] Oct, [address] [address] Oct, Generalized abdominal pain R10.84 [facility] [address] [place] [id number] Oct, Acquired immune deficiency syndrome B20 ; halfway 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 Z79.891 ; Bipolar affective disorder F31.9 ; Generalized anxiety disorder F41.1 ; Backache M54.9 ; Mixed hyperlipidemia E78.2 ; Nicotine dependence, cigarettes, uncomplicated F17.210 and Wheezing on auscultation R06.[address] [address] Oct, Oral candidiasis B37.[address] [address] Oct, [address] [address] Oct, Acute upper respiratory infection J06.[address] [address] Oct, Acute upper respiratory infection J06.[address] [address] Sep, Dysmenorrhea N94.[address] [address] Sep, Generalized anxiety disorder F41.1 [facility] [address] [facility] [place] [address] Sep, Dysmenorrhea N94.6 [facility] [address] [facility] [place] [address] Sep, [facility] [address] [place] [facility] [place] [address] Sep, Dysmenorrhea N94.6 [facility] [address] [facility] [place] [address] Aug, Acquired immune deficiency syndrome B20 [facility] [address] [facility] [place] [address] Aug, Generalized anxiety disorder F41.1 [facility] [address] [place] [facility] [place] [address] Aug, [facility] [address] [facility] [place] [address] Aug, [facility] [address] [facility] [place] [address] Aug, [facility] [address] [facility] [place] [address] Aug, [facility] [address] [facility] [place] [address] Aug, [facility] [address] [facility] [place] [address] Aug, [facility] [address] [facility] [place] [address] Aug, [facility] [address] [place] [facility] [place] [address] Aug, Acute opioid withdrawal F11.23 [facility] [address] [facility] [place] [address] July, Upper respiratory infection J06.9 [facility] [address] [facility] [place] [address] July, Backache M54.9 [facility] [address] [place] [phone] July, Acquired immune deficiency syndrome B20 ; halfway 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 Z79.891 ; Hyperglycemia R73.9 ; Bipolar affective disorder F31.9 ; GERD (gastroesophageal reflux disease) K21.9 ; Backache M54.9 ; Generalized anxiety disorder F41.1 ; Mixed hyperlipidemia E78.2 ; Nicotine dependence, cigarettes, uncomplicated F17.210 and Localized edema R60.[address] [address] July, [address] [address] Jun, Backache M54.[address] [address] Jun, Chronic pain G89.[address] [address] May, Backache M54.[address] [address] May, Backache M54.[address] [address] Apr, Cough R05 [facility] [address] [place] [phone] Apr, Acquired immune deficiency syndrome B20 ; Screening examination for sexually transmitted disease Z11.3 ; Dermatitis L30.9 and Migraine with aura and with status migrainosus, not intractable G43.[address] [address] Apr, Backache M54.[address] [address] Mar, Intrinsic asthma J45.909 ; Nausea and vomiting R11.2 and AIDS B20 [address] [address] Mar, Backache M54.[address] [address] Feb, Chronic pain G89.[address] [address] Feb, Backache M54.[address] [facility] [address] [place] [address] Jan, [place] eye, 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 [facility] [address] [place] [address] Jan, Asthma, intrinsic 493.[address] [facility] [address] [place] [address] Jan, [facility] [address] [place] [address] Jan, [facility] [address] [place] [address] Jan, Backache M54.[address] [address] Dec, Chronic pain G89.29 [facility] [address] [place] [id number] Dec, AIDS B20 ; Influenza vaccine needed Z23 ; Intrinsic asthma J45.909 ; Backache M54.9 ; Generalized anxiety disorder F41.1 ; Nicotine dependence, cigarettes, uncomplicated F17.210 and Mixed hyperlipidemia E78.[address] [address] Dec, [address] [address] Dec, Dysmenorrhea N94.[address] [address] Dec, [address] [address] Dec, Depression with anxiety F41.8 and Backache M54.[address] [address] Nov, [address] [address] Nov, Other chronic pain G89.[address] [address] 18 Nov, 2015 Other chronic pain G89.[address] [place] [address] Nov, [facility] [address] [facility] [place] [address] Nov, Generalized anxiety disorder F41.1 [facility] [address] [place] [facility] [place] [address] Nov, [facility] [address] [place] [facility] [place] [address] Nov, [facility] [address] [facility] [place] [address] Nov, Chronic pain G89.29 [facility] [address] [facility] [place] [address] Oct, [facility] [address] [facility] [place] [address] Oct, Other chronic pain G89.29 [facility] [address] [place] [address] Oct, [facility] [address] [facility] [place] [address] Oct, [facility] [address] [facility] [place] [address] Oct, Nausea and vomiting R11.2 [facility] [address] [facility] [place] [address] Oct, Chronic pain G89.29 [facility] [address] [place] [address] Sep, [facility] [address] [place] [address] Sep, Acute upper respiratory infection, unspecified J06.9 [facility] [address] [place] [address] Sep, Upper respiratory infection J06.9 [facility] [address] [place] [address] Sep, [facility] [address] [facility] [place] [address] Sep, [facility] [address] [place] [address] Sep, Other chronic pain G89.29 [facility] [address] [facility] [address] [place] [id number] Sep, AIDS B20 ; halfway (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 Z79.891 ; Smoking F17.200 ; Mixed hyperlipidemia E78.2 ; Chronic pain G89.29 and Edema R60.[address] [facility] [address] [place] [address] Sep, [facility] [address] [place] [address] Sep, [facility] [address] [place] [address] Aug, [facility] [address] [place] [address] Aug, Other chronic pain G89.[address] [address] Aug, Generalized anxiety disorder F41.[address] [address] July, Other chronic pain G89.[address] [facility] [address] [place] [address] July, Other chronic pain G89.[address] [address] July, [facility] [address] [place] [address] Jun, Generalized anxiety disorder F41.[address] [facility] [address] [place] [address] Jun, [facility] [address] [place] [address] Jun, Other chronic pain G89.[address] [facility] [address] [place] [address] Jun, Rash and other nonspecific skin eruption R21 [facility] [address] [place] [address] Jun, [facility] [address] [place] [address] Jun, [facility] [address] [facility] [place] [address] Jun, [facility] [address] [place] [facility] [place] [address] Jun, [facility] [address] [facility] [place] [address] Jun, [facility] [address] [place] [facility] [place] [address] Jun, [facility] [address] [place] [facility] [place] [address] Jun, [facility] [address] [place] [facility] [place] [address] Jun, Other chronic pain G89.29 [facility] [address] [place] [facility] [place] [address] Jun, [facility] [address] [place] [facility] [place] [address] Jun, [facility] [address] [place] [facility] [place] [address] Jun, [facility] [address] [place] [facility] [place] [address] Jun, [facility] [address] [facility] [place] [address] Jun, [facility] [address] [place] [facility] [place] [address] Jun, [facility] [address] [place] [facility] [place] [address] Jun, [facility] [address] [facility] [place] [address] Jun, [facility] [address] [facility] [place] [address] Jun, [facility] [address] [facility] [place] [address] Jun, Nausea and vomiting R11.2 [facility] [address] [facility] [place] [address] May, [facility] [address] [facility] [place] [address] May, Rash and other nonspecific skin eruption R21 [facility] [address] [place] [facility] [place] [address] May, [facility] [address] [place] [facility] [place] [address] May, [facility] [address] [facility] [place] [address] May, [facility] [address] [place] [facility] [place] [address] May, [facility] [address] [place] [facility] [place] [address] May, [facility] [address] [place] [phone] May, Acquired immune deficiency syndrome B20 ; Screening examination for sexually transmitted disease Z11.3 ; Depression with anxiety F41.8 ; Other chronic pain G89.29 and Dermatitis L30.9 [facility] [address] [place] [address] May, [facility] [address] [place] [address] May, [facility] [address] [place] [address] May, [facility] [address] [place] [address] May, Backache M54.9 [facility] [address] [place] [address] May, Rash and other nonspecific skin eruption R21 [facility] [address] [facility] [place] [address] Apr, [facility] [address] [place] [address] Apr, [facility] [address] [place] [address] Apr, Other chronic pain G89.29 [facility] [address] [place] [address] Apr, [facility] [address] [place] [address] Apr, [facility] [address] [facility] [place] [address] Apr, [facility] [address] [place] [address] Apr, [facility] [address] [place] [address] Apr, [facility] [address] [place] [address] Apr, [facility] [address] [place] [facility] [place] [address] Apr, [facility] [address] [place] [address] Apr, [facility] [address] [place] [address] Apr, [facility] [address] [place] [address] Apr, [facility] [address] [place] [address] Apr, Other chronic pain G89.29 ; Generalized anxiety disorder F41.1 ; Nausea R11.0 and AIDS B20 [facility] [address] [place] [address] Apr, [facility] [address] [place] [address] Apr, Generalized anxiety disorder F41.1 [facility] [address] [place] [address] Apr, [facility] [address] [place] [address] Apr, Other chronic pain G89.[address] [facility] [address] [place] [address] Mar, [facility] [address] [place] [id number] Mar, halfway (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 Z79.891 ; Bipolar affective disorder F31.9 ; Smoking F17.200 ; Generalized anxiety disorder F41.1 ; Influenza vaccine administered Z23 and AIDS B20 [facility] [address] [place] [address] Mar, Other chronic pain G89.[address] [facility] [address] [place] [address] Mar, Generalized anxiety disorder F41.[address] [address] Mar, [facility] [address] [place] [address] Mar, Asymptomatic HIV infection Z21 [address] [address] Mar, Other chronic pain G89.[address] [address] Feb, [address] [address] Feb, [facility] [address] [place] [address] Feb, [facility] [place] [address] [place] [address] Feb, [address] [address] Feb, [address] [address] Jan, Other chronic pain G89.29 and Nausea & vomiting R11.[address] [address] Jan, Other chronic pain G89.[address] [facility] [address] [place] [address] Dec, [facility] [address] [place] [address] Dec, Other chronic pain G89.29 ; Asymptomatic HIV infection Z21 ; Intrinsic asthma J45.909 ; Bipolar affective disorder F31.9 ; Noncompliance Z91.19 ; Migraine G43.909 ; Tobacco use disorder Z72.0 ; GERD (gastroesophageal reflux disease) K21.9 ; Backache M54.9 and Generalized anxiety disorder F41.1 [facility] [address] [place] [address] Nov, [facility] [address] [place] [address] Nov, [facility] [address] [place] [address] Oct, Other chronic pain 338.[address] [address] Oct, [address] [address] Oct, Unspecified backache 724.5 and Dysphagia 787.[address] [address] Sep, Other chronic pain 338.[address] [address] Sep, [address] [address] Aug, URI (upper respiratory infection) 465.9 and Diarrhea 787.[address] [address] Aug, [address] [address] Aug, Other chronic pain 338.[address] [address] Aug, Other chronic pain 338.29 and Generalized anxiety disorder 300.[address] [address] Aug, [facility] [address] [place] [address] July, Other chronic pain 338.29 [facility] [address] [place] [phone] July, Nondependent tobacco use disorder 305.1 ; Unspecified backache 724.5 ; Other chronic pain 338.29 ; Abdominal pain, unspecified site 789.00 ; long term (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 V58.69 and Acquired immune deficiency syndrome [address] [facility] [address] [place] [address] July, Other chronic pain 338.[address] [facility] [address] [place] [address] Jun, Other chronic pain 338.[address] [facility] [address] [place] [address] Jun, [facility] [address] [place] [address] Jun, Other chronic pain 338.[address] [facility] [address] [place] [address] Jun, URI (upper respiratory infection) 465.[address] [facility] [address] [place] [address] Jun, Generalized anxiety disorder 300.02 and Seasonal allergies 477.[address] [address] Jun, Generalized anxiety disorder 300.[address] [facility] [address] [place] [address] May, Other chronic pain 338.[address] [facility] [address] [place] [address] May, Other chronic pain 338.29 and Generalized anxiety disorder 300.[address] [facility] [address] [place] [address] Apr, Asthma, intrinsic 493.10 and Acute upper respiratory infections of other multiple sites 465.[address] [facility] [address] [place] [address] Apr, [facility] [address] [facility] [address] [place], [place] [id number] Apr, Depressive disorder [address] [facility] [address] [place] [address] Apr, Other chronic pain 338.[address] [facility] [address] [place] [address] Apr, [facility] [address] Apr, Other chronic pain 338.[address] [address] 14 Mar, 2014 Acute upper respiratory infections of unspecified site 465.9 [facility] [address] [place] [phone] Mar, Migraine 346.90 ; Nondependent tobacco use disorder 305.1 ; Esophageal reflux 530.81 ; Unspecified backache 724.5 ; Abdominal pain, generalized 789.07 ; Flatulence, eructation, and gas pain 787.3 ; Asymptomatic human immunodeficiency virus (HIV) infection status V08 ; Dyspepsia and other specified disorders of function of stomach 536.8 ; Nausea alone 787.02 and Asthma 493.[address] [address] Mar, Other chronic pain 338.[address] [address] Feb, Other chronic pain 338.29 and Generalized anxiety disorder 300.[address] [address] Feb, Abdominal pain, generalized 789.[address] [address] Jan, Abdominal pain, generalized 789.07 [facility] [address] [place] [id number] Dec, [address] [address] Dec, [address] [address] Dec, Unspecified backache 724.[address] [address] Dec, [address] [address] Nov, [facility] [address] [facility] [address] [place] [phone] Nov, [facility] [address] [facility] [phone] Nov, Bipolar disorder, unspecified 296.80 ; Abdominal pain, generalized 789.07 ; Generalized anxiety disorder 300.02 ; Nausea alone 787.02 ; Flu vaccine need V04.81 and Human immunodeficiency virus (HIV) disease 042 [facility] [address] [place] [facility] [place] [address] Nov, [facility] [place] [facility] [address] [facility] [address] [place] [phone] Oct, [facility] [place] [facility] [address] [facility] [address] [place] [phone] Oct, [facility] [address] [facility] [address] [place] [phone] Aug, [facility] [address] [facility] [place] [address] Jun, [facility] [address] [place] [facility] [place] [address] Mar, [facility] [address] [place] [facility] [place] [address] Oct, [facility] [address] [place] [facility] [place] [address] July, [facility] [address] [place] [address] Jun, [facility] [address] [place] [address] May, [facility] [address] [place] [facility] [place] [address] Mar, [facility] [address] [facility] [place] [address] Feb, [facility] [address] [facility] [place] [address] Nov, [facility] [address] [facility] [place] [address] Oct, [facility] [address] [facility] [place] [address] Aug, [facility] [address] [facility] [place] [address] May, [facility] [address] [place] [address] Mar, IMMUNIZATIONS No Known Immunizations SOCIAL HISTORY Never Assessed REASON FOR VISIT Re: RE:Re: RE:Re: RE:Re: RE:RE:RE:Fatigue PLAN OF CARE VITAL SIGNS [...]
--- OUTSIDE RECORDS SUMMARY | 2017-08-18 14:54 | XMS REPORT ---
Author Author Harper Snell Organization 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 Name Role Phone Harper Snell Unavailable PROBLEMS Type Condition ICD9-CM Code [id number] Code Onset Dates Condition Status SNOMED Code Problem Bipolar affective disorder F31.9 Active 05114701 Problem Nicotine dependence, cigarettes, uncomplicated F17.210 Active 57095575 Problem [facility] (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 Z79.891 Active 451714812 Problem Non-intractable cyclical vomiting with nausea G43.A0 Active 22266285 Problem Poor appetite R63.0 Active 38583064 Problem Wheezing on auscultation R06.2 Active 033995059 Problem Acquired immune deficiency syndrome B20 Active 60370965 Problem Other chronic pain G89.29 Active 41120874 Problem Mood swings F39 Active 68563343 Problem Generalized anxiety disorder F41.1 Active 49715257 Problem GERD (gastroesophageal reflux disease) K21.9 Active 336359074 Problem Mixed hyperlipidemia E78.2 Active 743273475 Problem Intrinsic asthma J45.909 Active 955752127 Problem Migraine G43.909 Active 97524230 Problem Backache M54.9 Active 295138466 ALLERGIES No Information ENCOUNTERS Encounter Location Date Diagnosis [facility] [address] [place] [id number] Sep, [facility] [address] [place] [address] July, [facility] [address] [place] [address] July, [facility] [address] [place] [address] July, [facility] [address] [place] [address] July, [facility] [address] [place] [address] July, [facility] [address] [place] [facility] [place] [address] July, Poor appetite R63.0 and Backache M54.9 [facility] [address] [place] [facility] [place] [address] July, [facility] [address] [place] [facility] [place] [address] July, [facility] [address] [place] [facility] [address] July, [facility] [address] [place] [facility] [place] [address] July, [facility] [address] [place] [facility] [place] [address] July, [facility] [address] [place] [facility] [place] [address] July, Nausea and vomiting R11.2 [facility] [address] [place] [facility] [address] July, [facility] [address] [place] [facility] [address] July, [facility] [address] [place] [facility] [address] July, [facility] [address] [place] [facility] [address] July, [facility] [address] [place] [address] July, [facility] [address] [place] [facility] [address] July, Other chronic pain G89.29 [facility] [address] [place] [address] July, [facility] [address] [place] [address] July, GERD (gastroesophageal reflux disease) K21.9 [facility] [address] [place] [facility] [address] July, [facility] [address] [place] [facility] [address] Jun, [facility] [address] [place] [facility] [address] Jun, [facility] [address] [place] [address] Jun, [facility] [address] [place] [facility] [address] Jun, [facility] [address] [place] [address] Jun, Other chronic pain G89.29 [facility] [address] [place] [address] Jun, [facility] [address] [place] [facility] [address] Jun, [facility] [address] [place] [address] Jun, [facility] [address] [place] [facility] [address] Jun, [facility] [address] [place] [address] Jun, [facility] [address] [place] [facility] [address] Jun, Generalized anxiety disorder F41.1 ; Other chronic pain G89.29 and Non-intractable cyclical vomiting with nausea G43.A0 [facility] [address] [place] [phone] Jun, Acquired immune deficiency syndrome B20 ; [facility] ( 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 Z79.891 ; Nicotine dependence, cigarettes, uncomplicated F17.210 ; Lower respiratory infection J22 ; Poor appetite R63.0 ; Other chronic pain G89.29 ; Generalized anxiety disorder F41.1 and Need for tetanus booster Z23 [facility] [address] [place] [facility] [address] Jun, [facility] [address] [place] [address] May, Generalized abdominal pain R10.84 [facility] [address] [place] [address] May, [facility] [address] [place] [address] Apr, AIDS B20 ; Generalized abdominal pain R10.84 and Dysmenorrhea N94.6 [facility] [address] [place] [address] Apr, Acute URI J06.[address] [address] Apr, [facility] [address] [place] [address] Apr, [facility] [address] [place] [phone] Apr, Acquired immune deficiency syndrome B20 ; [employer] ( 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 Z79.891 and Migraine G43.[address] [address] Mar, Dysmenorrhea N94.[address] [address] Mar, [address] [address] Mar, Generalized anxiety disorder F41.1 and Generalized abdominal pain R10.[address] [address] Mar, [address] [address] Mar, Generalized abdominal pain R10.84 and Generalized anxiety disorder F41.[address] [address] Feb, [address] [address] Feb, Generalized abdominal pain R10.[address] [address] Jan, Nausea and vomiting R11.[address] [address] Jan, [address] [address] 16 Jan, 2017 [facility] [address] [place] [address] Jan, [facility] [address] [place] [address] Jan, [facility] [address] [place] [address] Jan, [facility] [address] [place] [address] Jan, Mood swings F39 [facility] [address] [place] [address] Jan, [facility] [address] [place] [address] Jan, [facility] [address] [place] [address] Jan, [facility] [address] [place] [address] Jan, Dysmenorrhea N94.6 [facility] [address] [place] [phone] Jan, Acquired immune deficiency syndrome B20 ; Generalized abdominal pain R10.84 and Refused influenza vaccine Z28.21 [facility] [address] [address] Jan, [facility] [address] [address] Dec, Generalized abdominal pain R10.84 [facility] [address] [address] Dec, Dysmenorrhea N94.6 [facility] [address] [place] [address] Dec, Backache M54.9 [facility] [address] [address] 19 Nov, 2016 Generalized abdominal pain R10.84 [facility] [address] [place] [address] 12 Nov, 2016 Generalized anxiety disorder F41.1 [facility] [address] [address] Nov, Dysmenorrhea N94.[address] [address] Oct, [address] [address] Oct, [address] [address] Oct, [address] [address] Oct, Generalized abdominal pain R10.[address] [facility] [address] [facility] [place] [phone] Oct, Acquired immune deficiency syndrome B20 ; 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 ; Bipolar affective disorder F31.9 ; Generalized anxiety disorder F41.1 ; Backache M54.9 ; Mixed hyperlipidemia E78.2 ; Nicotine dependence, cigarettes, uncomplicated F17.210 and Wheezing on auscultation R06.[address] [address] Oct, Oral candidiasis B37.[address] [address] Oct, [address] [address] Oct, Acute upper respiratory infection J06.[address] [address] Oct, Acute upper respiratory infection J06.[address] [address] Sep, Dysmenorrhea N94.[address] [address] Sep, Generalized anxiety disorder F41.[address] [address] Sep, Dysmenorrhea N94.[address] [address] Sep, [address] [address] Sep, Dysmenorrhea N94.6 [facility] [address] [place] [address] Aug, Acquired immune deficiency syndrome B20 [facility] [address] [place] [address] Aug, Generalized anxiety disorder F41.1 [facility] [address] [place] [address] Aug, [facility] [address] [place] [address] Aug, [facility] [address] [place] [address] Aug, [facility] [address] [place] [address] Aug, [facility] [address] [place] [address] Aug, [facility] [address] [place] [address] Aug, [facility] [address] [place] [address] Aug, [facility] [address] [place] [address] Aug, Acute opioid withdrawal F11.23 [facility] [address] [place] [address] July, Upper respiratory infection J06.[address] [facility] [address] [place] [address] July, Backache M54.[address] [facility] [address] [place] [id number] July, Acquired immune deficiency syndrome B20 ; 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 ; Hyperglycemia R73.9 ; Bipolar affective disorder F31.9 ; GERD (gastroesophageal reflux disease) K21.9 ; Backache M54.9 ; Generalized anxiety disorder F41.1 ; Mixed hyperlipidemia E78.2 ; Nicotine dependence, cigarettes, uncomplicated F17.210 and Localized edema R60.0 [facility] [address] [place] [address] July, [facility] [address] [place] [address] Jun, Backache M54.[address] [facility] [address] [place] [address] Jun, Chronic pain G89.29 [facility] [address] [place] [address] May, Backache M54.[address] [facility] [address] [place] [address] May, Backache M54.[address] [address] Apr, Cough R05 [facility] [address] [place] [id number] 10 Apr, 2016 Acquired immune deficiency syndrome B20 ; Screening examination for sexually transmitted disease Z11.3 ; Dermatitis L30.9 and Migraine with aura and with status migrainosus, not intractable G43.[address] [address] Apr, Backache M54.[address] [address] Mar, Intrinsic asthma J45.909 ; Nausea and vomiting R11.2 and AIDS B20 [address] [address] Mar, Backache M54.[address] [address] Feb, Chronic pain G89.[address] [address] Feb, Backache M54.[address] [address] Jan, [place] [facility], 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 [address] Jan, Asthma, intrinsic 493.10 [address] [place] [address] Jan, [facility] [address] [place] [address] Jan, [facility] [address] [place] [address] Jan, Backache M54.[address] [facility] [address] [place] [address] 30 Dec, 2015 Chronic pain G89.[address] [facility] [address] [facility] [place] [phone] Dec, AIDS B20 ; Influenza vaccine needed Z23 ; Intrinsic asthma J45.909 ; Backache M54.9 ; Generalized anxiety disorder F41.1 ; Nicotine dependence, cigarettes, uncomplicated F17.210 and Mixed hyperlipidemia E78.[address] [facility] [address] [place] [address] Dec, [facility] [address] [place] [address] Dec, Dysmenorrhea N94.[address] [facility] [address] [place] [address] 18 Dec, [address] [address] 17 Dec, 2015 Depression with anxiety F41.8 and Backache M54.9 [facility] [address] [place] [address] 19 Nov, [address] [facility] [address] [place] [address] 19 Nov, 2015 Other chronic pain G89.29 [facility] [address] [place] [address] 18 Nov, 2015 Other chronic pain G89.29 [facility] [address] [place] [address] 18 Nov, [address] [facility] [address] [place] [address] 14 Nov, 2015 Generalized anxiety disorder F41.1 [facility] [address] [place] [address] Nov, [facility] [address] [place] [address] Nov, [facility] [address] [place] [address] Nov, Chronic pain G89.29 [facility] [address] [place] [address] Oct, [facility] [address] [place] [address] Oct, Other chronic pain G89.29 [facility] [address] [place] [address] Oct, [facility] [address] [place] [address] Oct, [facility] [address] [place] [address] Oct, Nausea and vomiting R11.[address] [facility] [address] [place] [address] Oct, Chronic pain G89.29 [facility] [address] [place] [address] Sep, [facility] [address] [place] [address] Sep, Acute upper respiratory infection, unspecified J06.[address] [facility] [address] [place] [address] Sep, Upper respiratory infection J06.[address] [facility] [address] [place] [address] Sep, [facility] [address] [place] [address] Sep, [facility] [address] [place] [address] Sep, Other chronic pain G89.29 [facility] [address] [place] [id number] Sep, AIDS B20 ; [facility]CI (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 Z79.891 ; Smoking F17.200 ; Mixed hyperlipidemia E78.2 ; Chronic pain G89.29 and Edema R60.9 [facility] [address] [place] [facility] [place] [address] Sep, [facility] [address] [place] [facility] [place] [address] Sep, [facility] [address] [place] [facility] [place] [address] Aug, [facility] [address] [place] [facility] [place] [address] Aug, Other chronic pain G89.29 [facility] [address] [place] [facility] [place] [address] Aug, Generalized anxiety disorder F41.1 [facility] [address] [place] [facility] [address] July, Other chronic pain G89.29 [facility] [address] [place] [facility] [place] [address] July, Other chronic pain G89.29 [facility] [address] [place] [facility] [place] [address] July, [facility] [address] [place] [facility] [place] [address] Jun, Generalized anxiety disorder F41.1 [facility] [address] [place] [facility] [place] [address] Jun, [facility] [address] [place] [address] Jun, Other chronic pain G89.29 [facility] [address] [place] [facility] [place] [address] Jun, Rash and other nonspecific skin eruption R21 [facility] [address] [place] [facility] [place] [address] Jun, [facility] [address] [place] [facility] [place] [address] Jun, [facility] [address] [place] [address] Jun, [facility] [address] [place] [address] Jun, [facility] [address] [place] [facility] [place] [address] Jun, [facility] [address] [place] [facility] [place] [address] Jun, [facility] [address] [place] [facility] [place] [address] Jun, [facility] [address] [place] [facility] [place] [address] Jun, Other chronic pain G89.29 [facility] [address] [place] [facility] [place] [address] Jun, [facility] [address] [place] [facility] [place] [address] Jun, [facility] [address] [place] [facility] [place] [address] Jun, [facility] [address] [place] [facility] [address] Jun, [facility] [address] [place] [facility] [place] [address] Jun, [facility] [address] [place] [facility] [place] [address] Jun, [facility] [address] [place] [facility] [place] [address] Jun, [facility] [address] [place] [facility] [place] [address] Jun, [facility] [address] [place] [facility] [place] [address] Jun, [facility] [address] [place] [facility] [place] [address] Jun, Nausea and vomiting R11.2 [facility] [address] [place] [facility] [address] May, [facility] [address] [place] [facility] [place] [address] May, Rash and other nonspecific skin eruption R21 [facility] [address] [place] [facility] [place] [address] May, [facility] [address] [place] [facility] [place] [address] May, [facility] [address] [place] [facility] [place] [address] May, [facility] [address] [place] [address] May, [facility] [address] [place] [address] May, [facility] [address] [facility] [place] [id number] 18 May, 2015 Acquired immune deficiency syndrome B20 ; Screening examination for sexually transmitted disease Z11.3 ; Depression with anxiety F41.8 ; Other chronic pain G89.29 and Dermatitis L30.9 [facility] [address] [place] [facility] [address] May, [facility] [address] [place] [address] May, [facility] [address] [place] [address] May, [facility] [address] [place] [address] May, Backache M54.9 [facility] [address] [place] [address] May, Rash and other nonspecific skin eruption R21 [facility] [address] [place] [address] Apr, [facility] [address] [place] [address] Apr, [facility] [address] [place] [address] Apr, Other chronic pain G89.29 [facility] [address] [place] [address] Apr, [facility] [address] [place] [address] Apr, [facility] [address] [place] [address] Apr, [facility] [address] [place] [address] Apr, [facility] [address] [place] [address] Apr, [facility] [address] [place] [address] Apr, [facility] [address] [place] [address] Apr, [facility] [address] [place] [address] Apr, [facility] [address] [place] [address] Apr, [facility] [address] [place] [address] Apr, [facility] [address] [place] [address] Apr, Other chronic pain G89.29 ; Generalized anxiety disorder F41.1 ; Nausea R11.0 and AIDS B20 [address] [address] Apr, [facility] [address] [place] [address] Apr, Generalized anxiety disorder F41.[address] [facility] [address] [place] [address] Apr, [facility] [address] [place] [address] Apr, Other chronic pain G89.[address] [address] Mar, [facility] [address] [place] [id number] Mar, 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 ; Bipolar affective disorder F31.9 ; Smoking F17.200 ; Generalized anxiety disorder F41.1 ; Influenza vaccine administered Z23 and AIDS B20 [facility] [address] [place] [address] Mar, Other chronic pain G89.29 [facility] [address] [place] [address] Mar, Generalized anxiety disorder F41.1 [facility] [address] [place] [address] Mar, [facility] [address] [place] [address] Mar, Asymptomatic HIV infection Z21 [facility] [address] [place] [address] Mar, Other chronic pain G89.29 [facility] [address] [place] [address] Feb, [facility] [address] [place] [address] Feb, [facility] [address] [place] [address] Feb, [facility] [address] [place] [address] Feb, [facility] [address] [place] [address] Feb, [facility] [address] [place] [address] Jan, Other chronic pain G89.29 and Nausea & vomiting R11.2 [facility] [address] [place] [address] Jan, Other chronic pain G89.29 [facility] [address] [place] [address] Dec, [facility] [address] [place] [address] Dec, Other chronic pain G89.29 ; Asymptomatic HIV infection Z21 ; Intrinsic asthma J45.909 ; Bipolar affective disorder F31.9 ; Noncompliance Z91.19 ; Migraine G43.909 ; Tobacco use disorder Z72.0 ; GERD (gastroesophageal reflux disease) K21.9 ; Backache M54.9 and Generalized anxiety disorder F41.1 [facility] [address] [place] [address] Nov, [facility] [address] [place] [address] Nov, [facility] [address] [place] [address] Oct, Other chronic pain 338.29 [facility] [address] [place] [address] Oct, [facility] [address] [place] [address] Oct, Unspecified backache 724.5 and Dysphagia 787.[address] [address] Sep, Other chronic pain 338.29 [facility] [address] [place] [address] Sep, [address] [address] Aug, URI (upper respiratory infection) 465.9 and Diarrhea 787.[address] [address] Aug, [address] [address] Aug, Other chronic pain 338.[address] 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 [address] [place] [address] Jun, URI (upper respiratory infection) 465.[address] [facility] [address] [place] [address] Jun, Generalized anxiety disorder 300.02 and Seasonal allergies 477.[address] [facility] [address] [place] [address] Jun, Generalized anxiety disorder 300.[address] [facility] [address] [place] [address] May, Other chronic pain 338.[address] [facility] [address] [place] [address] May, Other chronic pain 338.29 and Generalized anxiety disorder 300.[address] [facility] [address] [place] [address] 16 Apr, 2014 Asthma, intrinsic 493.10 and Acute upper respiratory infections of other multiple sites 465.[address] [facility] [address] [place] [address] Apr, [facility] [address] [facility] [address] [place], [place] [phone] Apr, Depressive disorder [address] [facility] [address] [place] [address] Apr, Other chronic pain 338.[address] [facility] [address] [place] [address] Apr, [facility] [address] [place] [address] Apr, Other chronic pain 338.[address] [facility] [address] [place] [address] 14 Mar, 2014 Acute upper respiratory infections of unspecified site 465.9 [facility] [address] [place] [phone] Mar, Migraine 346.90 ; Nondependent tobacco use disorder 305.1 ; Esophageal reflux 530.81 ; Unspecified backache 724.5 ; Abdominal pain, generalized 789.07 ; Flatulence, eructation, and gas pain 787.3 ; Asymptomatic human immunodeficiency virus (HIV) infection status V08 ; Dyspepsia and other specified disorders of function of stomach 536.8 ; Nausea alone 787.02 and Asthma 493.[address] [address] Mar, Other chronic pain 338.[address] [address] Feb, Other chronic pain 338.29 and Generalized anxiety disorder 300.[address] [address] Feb, Abdominal pain, generalized 789.[address] [address] Jan, Abdominal pain, generalized 789.07 [facility] [address] [place] [phone] Dec, [address] [address] Dec, [address] [address] Dec, Unspecified backache 724.[address] [address] Dec, [address] [address] Nov, [facility] [address] [facility] [address] [place] [phone] Nov, [facility] [address] [place] [phone] Nov, Bipolar disorder, unspecified 296.80 ; Abdominal pain, generalized 789.07 ; Generalized anxiety disorder 300.02 ; Nausea alone 787.02 ; Flu vaccine need V04.81 and Human immunodeficiency virus (HIV) disease [address] [address] Nov, [facility] [place] [facility] [address] [facility] [address] [place] [phone] Oct, [facility] [place] [facility] [address] [facility] [address] [place] [phone] Oct, [facility] [place] [facility] [address] [facility] [address] [place] [phone] Aug, [facility] [address] [place] [facility] [address] Jun, [facility] [address] [place] [facility] [address] Mar, [facility] [address] [place] [facility] [address] Oct, [facility] [address] [place] [facility] [address] July, [facility] [address] [place] [facility] [address] Jun, [facility] [address] [place] [facility] [address] May, [facility] [address] [place] [facility] [address] Mar, [facility] [address] [place] [facility] [place] [facility] [address] Feb, [facility] [address] [place] [facility] [place] [address] Nov, [facility] [address] [place] [facility] [place] [facility] [address] Oct, [facility] [address] [place] [facility] [place] [facility] [address] Aug, [facility] [address] [place] [facility] [address] May, [facility] [address] [place] [facility] [address] Mar, IMMUNIZATIONS No Known Immunizations SOCIAL HISTORY Never Assessed REASON FOR VISIT Re: RE:Re: RE:Re: RE:Re: RE:Re: RE:Re: RE:Re: RE:Re: RE:Re: RE:Re: RE:Re: RE:Re : RE:Re: RE:RE:RE:Fatigue PLAN OF CARE VITAL SIGNS MEDICATIONS Medication Instructions Dosage Frequency Start Date End Date Duration Status Montelukast Sodium 10 MG Orally Once a day 1 tablet in the evening 24h July, 30 day(s) Active RESULTS No [...]
--- OUTSIDE RECORDS SUMMARY | 2017-08-18 14:55 | XMS REPORT ---
Author Dulce [facility] Address [address] [place], [place] [id number] Care Team Providers Care Strategic Debriefing Specialist Name Role Phone Dulce Olvera Unavailable PROBLEMS Type Condition ICD9-CM Code ZHV94-HU Code Onset Dates Condition Status SNOMED Code Problem GERD (gastroesophageal reflux disease) K21.9 Active 164462081 Problem Backache M54.9 Active 706484337 Problem Intrinsic asthma J45.909 Active 992097806 Problem Mixed hyperlipidemia E78.2 Active 698084269 Problem Migraine G43.909 Active 46421700 Problem Generalized anxiety disorder F41.1 Active 28308636 Problem Mood swings F39 Active 45054398 Problem Wheezing on auscultation R06.2 Active 390573781 Problem FDC (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 Z79.891 Active 308161669 Problem Bipolar affective disorder F31.9 Active 72333646 Problem Acquired immune deficiency syndrome B20 Active 19617776 Problem Nicotine dependence, cigarettes, uncomplicated F17.210 Active 03071762 ALLERGIES No Information SOCIAL HISTORY Never Assessed PLAN OF CARE VITAL SIGNS MEDICATIONS Medication Instructions Dosage Frequency Start Date End Date Duration Status Dicyclomine HCl 20 MG Orally three times a day 1 tablet 8h July, 30 day(s) Active Diflucan 150 Orally Once a day 1 tablet 24h 5 Active Azithromycin 250 MG Orally Once a day 1 tab 24h Mar, 30 days Active Zofran 8 TAKE ONE TABLET BY MOUTH EVERY 8 HOURS FOR 10 DAYS 10 Active Ventolin HFA 108 (90 Base) MCG/ACT Inhalation every 4 hrs 2 puffs as needed 4h Oct, 30 days Active Promethazine HCl 25 MG Orally three times a day 1 tablet as needed 8h Mar, 30 day(s) Active HydrOXYzine HCl 25 MG Orally every 12 hrs 1 tablet 12h Jan, 30 day(s) Active Hydrocodone-Acetaminophen 10-325 MG Orally every 6 hrs 1 tablet as needed 6h Oct, Mar, 30 days Active Stribild [id number] MG Orally Once a day 1 tablet 24h 30 Aug, 2016 30 days Active Clonidine HCl 0.1 MG Orally every 4 hrs 1 tablet as needed do not take is BP is <100/60 4h 08 Aug, 2016 Active Methocarbamol 750 MG Orally every 8 hrs 1 tablet 8h 18 Dec, 2015 10 days Active ProAir HFA 108 (90 Base) MCG/ACT Inhalation every 4 hrs 2 puffs as needed 4h Sep, 30 days Active Ciprofloxacin HCl 0.3 % Ophthalmic every 4 hrs 1 drop into affected ear while awake 4h 5 day(s) Active Hydrochlorothiazide 25 MG Orally Once a day 1 tablet in the morning 24h July, 30 day(s) Active Dapsone 100 MG Orally Once a day 1 tablet 24h Apr, 30 days Active Tramadol HCl 50 MG Orally every 6 hrs 2 tablet as needed 6h Sep, 15 days Active [facility] Omeprazole 20 MG Orally Once a day 1 tablet 24h Mar, 30 day (s) Active Marinol 10 MG Orally Twice a day 1 capsule before lunch and supper 12h Jun, 30 days Active RESULTS No Results [...]
--- OUTSIDE RECORDS SUMMARY | 2017-08-18 14:55 | XMS REPORT ---
Author Dulce Olvera [facility] Address [address] [place], [place] [id number] Care Team Providers Care Nutter Up Name Role Phone Dulce Olvera Unavailable PROBLEMS Type Condition ICD9-CM Code UFZ15-LQ Code Onset Dates Condition Status SNOMED Code Problem Bipolar affective disorder F31.9 Active 43776655 Problem Nicotine dependence, cigarettes, uncomplicated F17.210 Active 05277298 Problem jail (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 Z79.891 Active 801988715 Problem Non-intractable cyclical vomiting with nausea G43.A0 Active 61588161 Problem Poor appetite R63.0 Active 55532958 Problem Wheezing on auscultation R06.2 Active 076396077 Problem Acquired immune deficiency syndrome B20 Active 12459840 Problem Other chronic pain G89.29 Active 60563726 Problem Mood swings F39 Active 70304088 Problem Generalized anxiety disorder F41.1 Active 22734909 Problem GERD (gastroesophageal reflux disease) K21.9 Active 261922626 Problem Mixed hyperlipidemia E78.2 Active 515612789 Problem Intrinsic asthma J45.909 Active 851583788 Problem Migraine G43.909 Active 75707215 Problem Backache M54.9 Active 517445125 ALLERGIES No Information ENCOUNTERS Encounter Location Date Diagnosis [facility] [address] [facility] [address] [place] [id number] Sep, [facility] [address] [place] [address] Jun, [facility] [address] [place] [address] Jun, [facility] [address] [place] [address] Jun, Other chronic pain G89.29 [facility] [address] [place] [address] Jun, [facility] [address] [place] [address] Jun, [facility] [address] [place] [address] Jun, [facility] [address] [place] [address] Jun, [facility] [address] [place] [address] Jun, [facility] [address] [place] [address] Jun, Generalized anxiety disorder F41.1 ; Other chronic pain G89.29 and Non-intractable cyclical vomiting with nausea G43.A0 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 ; Nicotine dependence, cigarettes, uncomplicated F17.210 ; Lower respiratory infection J22 ; Poor appetite R63.0 ; Other chronic pain G89.29 ; Generalized anxiety disorder F41.1 and Need for tetanus booster Z23 [facility] [address] [place] [address] Jun, [address] [address] May, Generalized abdominal pain R10.84 [facility] [address] [place] [address] May, [address] [address] Apr, AIDS B20 ; Generalized abdominal pain R10.84 and Dysmenorrhea N94.6 [facility] [address] [place] [address] Apr, Acute URI J06.[address] [address] Apr, [facility] [address] [place] [address] Apr, [facility] [address] [place] [phone] Apr, Acquired immune deficiency syndrome B20 ; jail ( 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 Z79.891 and Migraine G43.909 [facility] [address] [place] [address] Mar, Dysmenorrhea N94.6 [facility] [address] [place] [address] Mar, [facility] [address] [place] [address] Mar, Generalized anxiety disorder F41.1 and Generalized abdominal pain R10.84 [facility] [address] [place] [address] Mar, [facility] [address] [place] [address] Mar, Generalized abdominal pain R10.84 and Generalized anxiety disorder F41.1 [facility] [address] [place] [address] Feb, [facility] [address] [place] [address] Feb, Generalized abdominal pain R10.84 [facility] [address] [place] [address] Jan, Nausea and vomiting R11.2 [facility] [address] [place] [address] Jan, [facility] [address] [place] [address] Jan, [facility] [address] [place] [address] Jan, [facility] [address] [place] [address] Jan, [facility] [address] [place] [address] Jan, [facility] [address] [place] [address] Jan, Mood swings F39 [facility] [address] [place] [address] 08 Jan, 2017 [facility] [address] [place] [address] Jan, [facility] [address] [place] [address] Jan, [facility] [address] [place] [address] Jan, Dysmenorrhea N94.6 [facility] [address] [place] [phone] Jan, Acquired immune deficiency syndrome B20 ; Generalized abdominal pain R10.84 and Refused influenza vaccine Z28.21 [facility] [address] [place] [address] Jan, [facility] [address] [address] Dec, Generalized abdominal pain R10.84 [facility] [address] [place] [address] Dec, Dysmenorrhea N94.6 [facility] [address] [address] Dec, Backache M54.9 [facility] [address] [address] Nov, Generalized abdominal pain R10.84 [facility] [address] [address] Nov, Generalized anxiety disorder F41.1 [facility] [address] [address] Nov, Dysmenorrhea N94.6 [facility] [address] [place] [address] Oct, [facility] [address] [place] [address] Oct, [facility] [address] [place] [address] Oct, [facility] [address] [place] [address] Oct, Generalized abdominal pain R10.84 [facility] [address] [facility] [address] [place] [id number] Oct, Acquired immune deficiency syndrome B20 ; 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 ; Bipolar affective disorder F31.9 ; Generalized anxiety disorder F41.1 ; Backache M54.9 ; Mixed hyperlipidemia E78.2 ; Nicotine dependence, cigarettes, uncomplicated F17.210 and Wheezing on auscultation R06.2 [facility] [address] [place] [address] Oct, Oral candidiasis B37.0 [facility] [address] [place] [address] Oct, [facility] [address] [place] [address] Oct, Acute upper respiratory infection J06.9 [facility] [address] [place] [address] Oct, Acute upper respiratory infection J06.9 [facility] [address] [place] [address] Sep, Dysmenorrhea N94.6 [facility] [address] [place] [address] Sep, Generalized anxiety disorder F41.1 [facility] [address] [place] [address] Sep, Dysmenorrhea N94.6 [facility] [address] [place] [address] Sep, [facility] [address] [place] [address] Sep, Dysmenorrhea N94.6 [facility] [address] [place] [address] Aug, Acquired immune deficiency syndrome B20 [facility] [address] [place] [address] Aug, Generalized anxiety disorder F41.1 [facility] [address] [place] [address] Aug, [facility] [address] [place] [address] Aug, [facility] [address] [place] [address] Aug, [facility] [address] [place] [address] Aug, [facility] [address] [place] [address] Aug, [facility] [address] [place] [address] Aug, [facility] [address] [place] [address] Aug, [facility] [address] [place] [address] Aug, Acute opioid withdrawal F11.[address] [address] July, Upper respiratory infection J06.[address] [address] July, Backache M54.9 [facility] [address] [place] [phone] July, Acquired immune deficiency syndrome B20 ; 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 ; Hyperglycemia R73.9 ; Bipolar affective disorder F31.9 ; GERD (gastroesophageal reflux disease) K21.9 ; Backache M54.9 ; Generalized anxiety disorder F41.1 ; Mixed hyperlipidemia E78.2 ; Nicotine dependence, cigarettes, uncomplicated F17.210 and Localized edema R60.[address] [address] July, [facility] [address] [place] [address] Jun, Backache M54.[address] [address] Jun, Chronic pain G89.[address] [address] May, Backache M54.[address] [address] May, Backache M54.[address] [address] Apr, Cough R05 [facility] [address] [phone] Apr, Acquired immune deficiency syndrome B20 ; Screening examination for sexually transmitted disease Z11.3 ; Dermatitis L30.9 and Migraine with aura and with status migrainosus, not intractable G43.[address] [address] Apr, Backache M54.[address] [address] Mar, Intrinsic asthma J45.909 ; Nausea and vomiting R11.2 and AIDS B20 [address] [address] Mar, Backache M54.[address] [address] Feb, Chronic pain G89.[address] [address] Feb, Backache M54.[address] [address] Jan, [place] eye, 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 [address] Jan, Asthma, intrinsic 493.[address] [address] Jan, [address] [address] Jan, [address] [address] Jan, Backache M54.[address] [address] Dec, Chronic pain G89.[address] [facility] [address] [place] [phone] Dec, AIDS B20 ; Influenza vaccine needed Z23 ; Intrinsic asthma J45.909 ; Backache M54.9 ; Generalized anxiety disorder F41.1 ; Nicotine dependence, cigarettes, uncomplicated F17.210 and Mixed hyperlipidemia E78.2 [facility] [address] [place] [address] Dec, [facility] [address] [place] [address] Dec, Dysmenorrhea N94.6 [facility] [address] [place] [address] Dec, [facility] [address] [place] [address] 17 Dec, 2015 Depression with anxiety F41.8 and Backache M54.9 [facility] [address] [place] [address] Nov, [facility] [address] [place] [address] 19 Nov, 2015 Other chronic pain G89.29 [facility] [address] [place] [address] 18 Nov, 2015 Other chronic pain G89.29 [facility] [address] [place] [address] 18 Nov, 2015 [facility] [address] [place] [address] 14 Nov, 2015 Generalized anxiety disorder F41.1 [facility] [address] [place] [address] 06 Nov, 2015 [facility] [address] [place] [address] Nov, [facility] [address] [place] [address] 04 Nov, 2015 Chronic pain G89.29 [facility] [address] [place] [address] Oct, [facility] [address] [place] [address] Oct, Other chronic pain G89.29 [facility] [address] [place] [address] Oct, [facility] [address] [place] [address] Oct, [facility] [address] [place] [address] Oct, Nausea and vomiting R11.2 [facility] [address] [place] [address] Oct, Chronic pain G89.29 [facility] [address] [place] [address] Sep, [facility] [address] [place] [address] Sep, Acute upper respiratory infection, unspecified J06.9 [facility] [address] [place] [address] Sep, Upper respiratory infection J06.9 [facility] [address] [place] [address] Sep, [facility] [address] [place] [address] Sep, [facility] [address] [place] [address] Sep, Other chronic pain G89.29 [facility] [address] [place] [id number] Sep, AIDS B20 ; jail (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 Z79.891 ; Smoking F17.200 ; Mixed hyperlipidemia E78.2 ; Chronic pain G89.29 and Edema R60.9 [facility] [address] [place] [address] Sep, [facility] [address] [place] [address] Sep, [facility] [address] [place] [address] Aug, [facility] [address] [place] [address] Aug, Other chronic pain G89.29 [facility] [address] [place] [address] Aug, Generalized anxiety disorder F41.[address] [address] July, Other chronic pain G89.29 [facility] [address] [place] [facility] [place] [address] July, Other chronic pain G89.29 [facility] [address] [place] [facility] [place] [address] July, [facility] [address] [place] [facility] [place] [address] Jun, Generalized anxiety disorder F41.1 [facility] [address] [place] [facility] [place] [address] Jun, [facility] [address] [place] [facility] [place] [address] Jun, Other chronic pain G89.29 [facility] [address] [place] [facility] [place] [address] Jun, Rash and other nonspecific skin eruption R21 [facility] [address] [place] [facility] [place] [address] Jun, [facility] [address] [place] [facility] [place] [address] Jun, [facility] [address] [place] [facility] [place] [address] Jun, [facility] [address] [place] [facility] [place] [address] Jun, [facility] [address] [place] [facility] [place] [address] Jun, [facility] [address] [place] [facility] [place] [address] Jun, [facility] [address] [place] [facility] [place] [address] Jun, [facility] [address] [place] [facility] [place] [address] Jun, Other chronic pain G89.29 [facility] [address] [place] [facility] [place] [address] Jun, [facility] [address] [place] [facility] [place] [address] Jun, [facility] [address] [place] [facility] [place] [address] Jun, [facility] [address] [place] [facility] [place] [address] Jun, [facility] [address] [place] [facility] [place] [address] Jun, [facility] [address] [place] [facility] [place] [address] Jun, [facility] [address] [place] [facility] [place] [address] Jun, [facility] [address] [place] [facility] [place] [address] Jun, [facility] [address] [place] [facility] [place] [address] Jun, [facility] [address] [place] [facility] [place] [address] Jun, Nausea and vomiting R11.2 [facility] [address] [facility] [place] [address] May, [facility] [address] [facility] [place] [address] May, Rash and other nonspecific skin eruption R21 [facility] [address] [facility] [place] [address] May, [facility] [address] [place] [address] May, [facility] [address] [place] [address] May, [facility] [address] [facility] [place] [address] May, [facility] [address] [place] [address] May, [facility] [address] [place] [phone] May, Acquired immune deficiency syndrome B20 ; Screening examination for sexually transmitted disease Z11.3 ; Depression with anxiety F41.8 ; Other chronic pain G89.29 and Dermatitis L30.9 [facility] [address] [facility] [place] [address] May, [facility] [address] [place] [facility] [place] [address] May, [facility] [address] [place] [facility] [place] [address] May, [facility] [address] [place] [facility] [place] [address] May, Backache M54.9 [facility] [address] [place] [facility] [place] [address] May, Rash and other nonspecific skin eruption R21 [facility] [address] [place] [facility] [place] [address] Apr, [facility] [address] [place] [facility] [place] [address] Apr, [facility] [address] [place] [facility] [place] [address] Apr, Other chronic pain G89.29 [facility] [address] [place] [facility] [place] [address] Apr, [facility] [address] [place] [facility] [place] [address] Apr, [facility] [address] [place] [facility] [place] [address] Apr, [facility] [address] [place] [facility] [place] [address] Apr, [facility] [address] [facility] [place] [address] Apr, [facility] [address] [place] [facility] [place] [address] Apr, [facility] [address] [place] [facility] [place] [address] Apr, [facility] [address] [place] [facility] [place] [address] Apr, [facility] [address] [place] [facility] [place] [address] Apr, [facility] [address] [facility] [place] [address] Apr, [facility] [address] [place] [address] Apr, Other chronic pain G89.29 ; Generalized anxiety disorder F41.1 ; Nausea R11.0 and AIDS B20 [facility] [address] [place] [address] Apr, [facility] [address] [place] [address] Apr, Generalized anxiety disorder F41.1 [facility] [address] [place] [address] Apr, [facility] [address] [place] [address] Apr, Other chronic pain G89.[address] [address] Mar, [facility] [address] [place] [phone] Mar, jail (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 Z79.891 ; Bipolar affective disorder F31.9 ; Smoking F17.200 ; Generalized anxiety disorder F41.1 ; Influenza vaccine administered Z23 and AIDS B20 [address] [address] Mar, Other chronic pain G89.[address] [address] Mar, Generalized anxiety disorder F41.[address] [address] Mar, [facility] [address] [place] [address] Mar, Asymptomatic HIV infection Z21 [address] [address] Mar, Other chronic pain G89.[address] [address] Feb, [address] [address] Feb, [address] [address] Feb, [facility] [address] [place] [address] Feb, [facility] [address] [place] [address] Feb, [facility] [address] [place] [address] Jan, Other chronic pain G89.29 and Nausea & vomiting R11.2 [facility] [address] [place] [address] Jan, Other chronic pain G89.29 [facility] [address] [place] [address] Dec, [facility] [address] [place] [address] Dec, Other chronic pain G89.29 ; Asymptomatic HIV infection Z21 ; Intrinsic asthma J45.909 ; Bipolar affective disorder F31.9 ; Noncompliance Z91.19 ; Migraine G43.909 ; Tobacco use disorder Z72.0 ; GERD (gastroesophageal reflux disease) K21.9 ; Backache M54.9 and Generalized anxiety disorder F41.1 [facility] [address] [place] [address] Nov, [facility] [address] [place] [address] Nov, [address] [address] Oct, Other chronic pain 338.29 [facility] [address] [place] [address] Oct, [facility] [address] [place] [address] Oct, Unspecified backache 724.5 and Dysphagia 787.20 [facility] [address] [place] [address] Sep, Other chronic pain 338.[address] [address] Sep, [address] [place] [address] 30 Aug, 2014 URI (upper respiratory infection) 465.9 and Diarrhea 787.[address] [address] Aug, [address] [address] Aug, Other chronic pain 338.[address] [address] Aug, Other chronic pain 338.29 and Generalized anxiety disorder 300.[address] [address] Aug, [address] [address] July, Other chronic pain 338.29 [facility] [address] [place] [phone] July, Nondependent tobacco use disorder 305.1 ; Unspecified backache 724.5 ; Other chronic pain 338.29 ; Abdominal pain, unspecified site 789.00 ; jail (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 V58.69 and Acquired immune deficiency syndrome [address] [address] July, Other chronic pain 338.[address] [address] Jun, Other chronic pain 338.[address] [address] Jun, [address] [address] Jun, Other chronic pain 338.[address] [address] Jun, URI (upper respiratory infection) 465.[address] [address] Jun, Generalized anxiety disorder 300.02 and Seasonal allergies 477.[address] [address] Jun, Generalized anxiety disorder 300.02 [facility] [address] [place] [address] May, Other chronic pain 338.[address] [address] May, Other chronic pain 338.29 and Generalized anxiety disorder 300.02 [facility] [address] [place] [address] Apr, Asthma, intrinsic 493.10 and Acute upper respiratory infections of other multiple sites 465.8 [facility] [address] [place] [address] Apr, [facility] [address] [facility] [address] [place] [id number] Apr, Depressive disorder 311 [facility] [address] [place] [address] Apr, Other chronic pain 338.[address] [address] Apr, [facility] [address] [place] [address] Apr, Other chronic pain 338.[address] [address] Mar, Acute upper respiratory infections of unspecified site 465.9 [facility] [address] [place] [phone] Mar, Migraine 346.90 ; Nondependent tobacco use disorder 305.1 ; Esophageal reflux 530.81 ; Unspecified backache 724.5 ; Abdominal pain, generalized 789.07 ; Flatulence, eructation, and gas pain 787.3 ; Asymptomatic human immunodeficiency virus (HIV) infection status V08 ; Dyspepsia and other specified disorders of function of stomach 536.8 ; Nausea alone 787.02 and Asthma 493.[address] [address] Mar, Other chronic pain 338.[address] [address] Feb, Other chronic pain 338.29 and Generalized anxiety disorder 300.02 [facility] [address] [place] [address] Feb, Abdominal pain, generalized 789.07 [facility] [address] [place] [address] Jan, Abdominal pain, generalized 789.07 [facility] [address] [place] [phone] Dec, [facility] [address] [place] [address] Dec, [facility] [address] [place] [address] Dec, Unspecified backache 724.5 [facility] [address] [place] [address] Dec, [facility] [address] [place] [address] Nov, [facility] [address] [phone] Nov, [facility] [address] [place] [phone] Nov, Bipolar disorder, unspecified 296.80 ; Abdominal pain, generalized 789.07 ; Generalized anxiety disorder 300.02 ; Nausea alone 787.02 ; Flu vaccine need V04.81 and Human immunodeficiency virus (HIV) disease 042 [facility] [address] [place] [address] Nov, [facility] [id number] [place] [phone] Oct, [facility] [address] [facility] [address] [place], [place] [id number] Oct, [facility] [address] [id number] Aug, [facility] [address] [place] [address] Jun, [facility] [address] [place] [phone] Mar, [facility] [address] [place] [id number] Oct, [facility] [address] [place] [facility] [address] July, [facility] [address] [place] [facility] [address] Jun, [facility] [address] [place] [facility] [address] May, [facility] [address] [place] [facility] [address] Mar, [facility] [address] [place] [facility] [address] Feb, [facility] [address] [place] [facility] [address] Nov, [facility] [address] [place] [facility] [address] Oct, [facility] [address] [place] [facility] [address] Aug, [facility] [address] [place] [facility] [address] May, [facility] [address] [place] [facility] [address] Mar, IMMUNIZATIONS No Known Immunizations SOCIAL HISTORY [...]
--- OUTSIDE RECORDS SUMMARY | 2017-08-18 14:56 | XMS REPORT ---
Author Author Zandra Watson [facility] Address [address] [place], [place] [id number] Care Team Providers Care District Scout Executive Name Role Phone Zandra Watson Unavailable PROBLEMS Type Condition ICD9-CM Code [id number]-MM Code Onset Dates Condition Status SNOMED Code Problem Backache M54.9 Active 442413600 Problem Migraine G43.909 Active 24032724 Problem GERD (gastroesophageal reflux disease) K21.9 Active 728045862 Problem Mixed hyperlipidemia E78.2 Active 413663758 Problem Generalized anxiety disorder F41.1 Active 93131573 Problem Wheezing on auscultation R06.2 Active 697430674 Problem Acquired immune deficiency syndrome B20 Active 02091166 Problem Intrinsic asthma J45.909 Active 315121495 Problem Bipolar affective disorder F31.9 Active 33785855 Problem Nicotine dependence, cigarettes, uncomplicated F17.210 Active 97250888 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
--- OUTSIDE RECORDS SUMMARY | 2017-08-18 14:56 | XMS REPORT ---
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
--- OUTSIDE RECORDS SUMMARY | 2017-08-18 14:57 | XMS REPORT ---
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 Z79.891 Active 857044130 Problem Non-intractable cyclical vomiting with nausea G43.A0 Active 34544505 Problem Poor appetite R63.0 Active 77406480 Problem Wheezing on auscultation R06.2 Active 310936539 Problem Acquired immune deficiency syndrome B20 Active 99179417 Problem Other chronic pain G89.29 Active 04780789 Problem Mood swings F39 Active 02344634 Problem Generalized anxiety disorder F41.1 Active 04296539 Problem GERD (gastroesophageal reflux disease) K21.9 Active 665315767 Problem Mixed hyperlipidemia E78.2 Active 396597465 Problem Intrinsic asthma J45.909 Active 243403287 Problem Migraine G43.909 Active 42774780 Problem Backache M54.9 Active [id number] ALLERGIES No Information ENCOUNTERS Encounter Location Date Diagnosis [facility] [address] [place] [id number] Sep, [facility] [address] [place] [address] Jun, [facility] [address] [place] [address] Jun, [facility] [address] [place] [address] Jun, Other chronic pain G89.29 [facility] [address] [place] [address] Jun, [facility] [address] [place] [address] Jun, [facility] [address] [place] [address] Jun, [facility] [address] [place] [address] Jun, [facility] [address] [place] [address] Jun, [facility] [address] [place] [address] Jun, Generalized anxiety disorder F41.1 ; Other chronic pain G89.29 and Non-intractable cyclical vomiting with nausea G43.A0 [facility] [address] [place] [id number] Jun, Acquired immune deficiency syndrome B20 ; [facility] ( 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 Z79.891 ; Nicotine dependence, cigarettes, uncomplicated F17.210 ; Lower respiratory infection J22 ; Poor appetite R63.0 ; Other chronic pain G89.29 ; Generalized anxiety disorder F41.1 and Need for tetanus booster Z23 [facility] [address] [place] [address] Jun, [facility] [address] [place] [address] May, Generalized abdominal pain R10.84 [facility] [address] [place] [address] May, [facility] [address] [place] [address] Apr, AIDS B20 ; Generalized abdominal pain R10.84 and Dysmenorrhea N94.6 [facility] [address] [place] [address] Apr, Acute URI J06.[address] [address] Apr, [facility] [address] [place] [address] Apr, [facility] [address] [place] [id number] Apr, Acquired immune deficiency syndrome B20 ; 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 and Migraine G43.909 [facility] [address] [place] [address] Mar, Dysmenorrhea N94.6 [facility] [address] [place] [address] Mar, [facility] [address] [place] [address] Mar, Generalized anxiety disorder F41.1 and Generalized abdominal pain R10.84 [facility] [address] [place] [address] Mar, [facility] [address] [place] [address] Mar, Generalized abdominal pain R10.84 and Generalized anxiety disorder F41.1 [facility] [address] [place] [address] Feb, [facility] [address] [place] [address] Feb, Generalized abdominal pain R10.84 [facility] [address] [place] [address] Jan, Nausea and vomiting R11.2 [facility] [address] [place] [address] Jan, [facility] [address] [place] [address] Jan, [facility] [address] [place] [address] Jan, [facility] [address] [place] [address] Jan, [facility] [address] [place] [address] Jan, [facility] [address] [place] [address] Jan, Mood swings F39 [facility] [address] [place] [address] 08 Jan, 2017 [facility] [address] [place] [address] Jan, [facility] [address] [place] [address] Jan, [facility] [address] [place] [address] Jan, Dysmenorrhea N94.6 [facility] [address] [place] [phone] Jan, Acquired immune deficiency syndrome B20 ; Generalized abdominal pain R10.84 and Refused influenza vaccine Z28.21 [facility] [address] [address] Jan, [facility] [address] [address] Dec, Generalized abdominal pain R10.84 [facility] [address] [address] Dec, Dysmenorrhea N94.6 [facility] [address] [address] Dec, Backache M54.9 [facility] [address] [address] Nov, Generalized abdominal pain R10.84 [facility] [address] [address] Nov, Generalized anxiety disorder F41.1 [facility] [address] [address] Nov, Dysmenorrhea N94.6 [facility] [address] [address] Oct, [facility] [address] [place] [address] Oct, [facility] [address] [address] Oct, [facility] [address] [place] [address] Oct, Generalized abdominal pain R10.84 [facility] [address] [place] [id number] Oct, Acquired immune deficiency syndrome B20 ; [facility] 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 Z79.891 ; Bipolar affective disorder F31.9 ; Generalized anxiety disorder F41.1 ; Backache M54.9 ; Mixed hyperlipidemia E78.2 ; Nicotine dependence, cigarettes, uncomplicated F17.210 and Wheezing on auscultation R06.2 [facility] [address] [place] [address] Oct, Oral candidiasis B37.0 [facility] [address] [place] [address] Oct, [facility] [address] [place] [address] Oct, Acute upper respiratory infection J06.9 [facility] [address] [place] [address] Oct, Acute upper respiratory infection J06.9 [facility] [address] [place] [address] Sep, Dysmenorrhea N94.6 [facility] [address] [place] [address] Sep, Generalized anxiety disorder F41.1 [facility] [address] [place] [address] Sep, Dysmenorrhea N94.6 [facility] [address] [place] [address] Sep, [facility] [address] [place] [address] Sep, Dysmenorrhea N94.6 [facility] [address] [place] [address] Aug, Acquired immune deficiency syndrome B20 [facility] [address] [place] [address] Aug, Generalized anxiety disorder F41.1 [facility] [address] [place] [address] Aug, [facility] [address] [place] [address] Aug, [facility] [address] [place] [address] Aug, [facility] [address] [place] [address] Aug, [facility] [address] [place] [address] Aug, [facility] [address] [place] [address] Aug, [facility] [address] [place] [address] Aug, [facility] [address] [place] [address] Aug, Acute opioid withdrawal F11.23 [facility] [address] [place] [address] July, Upper respiratory infection J06.[address] [address] July, Backache M54.9 [facility] [address] [place] [phone] July, Acquired immune deficiency syndrome B20 ; 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 administrator 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 Z79.891 ; Hyperglycemia R73.9 ; Bipolar affective disorder F31.9 ; GERD (gastroesophageal reflux disease) K21.9 ; Backache M54.9 ; Generalized anxiety disorder F41.1 ; Mixed hyperlipidemia E78.2 ; Nicotine dependence, cigarettes, uncomplicated F17.210 and Localized edema R60.0 [facility] [address] [place] [address] July, [facility] [address] [place] [address] Jun, Backache M54.9 [facility] [address] [place] [address] Jun, Chronic pain G89.[address] [address] May, Backache M54.9 [facility] [address] [place] [address] May, Backache M54.9 [facility] [address] [address] Apr, Cough R05 [facility] [address] [id number] Apr, Acquired immune deficiency syndrome B20 ; Screening examination for sexually transmitted disease Z11.3 ; Dermatitis L30.9 and Migraine with aura and with status migrainosus, not intractable G43.[address] [address] Apr, Backache M54.[address] [address] Mar, Intrinsic asthma J45.909 ; Nausea and vomiting R11.2 and AIDS B20 [address] [address] Mar, Backache M54.[address] [address] Feb, Chronic pain G89.[address] [address] Feb, Backache M54.[address] [address] Jan, [place] eye, 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 [address] Jan, Asthma, intrinsic 493.[address] [address] Jan, [address] [address] Jan, [address] [address] Jan, Backache M54.[address] [address] Dec, Chronic pain G89.29 [facility] [address] [id number] Dec, AIDS B20 ; Influenza vaccine needed Z23 ; Intrinsic asthma J45.909 ; Backache M54.9 ; Generalized anxiety disorder F41.1 ; Nicotine dependence, cigarettes, uncomplicated F17.210 and Mixed hyperlipidemia E78.2 [facility] [address] [place] [address] Dec, [facility] [address] [place] [address] Dec, Dysmenorrhea N94.6 [facility] [address] [place] [address] Dec, [facility] [address] [place] [address] 17 Dec, 2015 Depression with anxiety F41.8 and Backache M54.9 [facility] [address] [place] [address] 19 Nov, 2015 [facility] [address] [place] [address] 19 Nov, 2015 Other chronic pain G89.29 [facility] [address] [place] [address] 18 Nov, 2015 Other chronic pain G89.29 [facility] [address] [place] [address] 18 Nov, 2015 [facility] [address] [place] [address] 14 Nov, 2015 Generalized anxiety disorder F41.1 [facility] [address] [place] [address] 06 Nov, 2015 [facility] [address] [place] [address] Nov, [facility] [address] [place] [address] 04 Nov, 2015 Chronic pain G89.29 [facility] [address] [place] [address] Oct, [facility] [address] [place] [address] Oct, Other chronic pain G89.29 [facility] [address] [place] [address] Oct, [facility] [address] [place] [address] Oct, [facility] [address] [place] [address] Oct, Nausea and vomiting R11.2 [facility] [address] [place] [address] Oct, Chronic pain G89.29 [facility] [address] [place] [address] Sep, [facility] [address] [place] [address] Sep, Acute upper respiratory infection, unspecified J06.[address] [address] Sep, Upper respiratory infection J06.[address] [address] Sep, [facility] [address] [place] [address] Sep, [facility] [address] [place] [address] Sep, Other chronic pain G89.29 [facility] [address] [place] [phone] Sep, AIDS B20 ; 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 administrator (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 Z79.891 ; Smoking F17.200 ; Mixed hyperlipidemia E78.2 ; Chronic pain G89.29 and Edema R60.[address] [address] Sep, [facility] [address] [place] [address] Sep, [address] [address] Aug, [facility] [address] [place] [address] Aug, Other chronic pain G89.[address] [address] Aug, Generalized anxiety disorder F41.[address] [place] [address] July, Other chronic pain G89.29 [facility] [address] [place] [facility] [place] [address] July, Other chronic pain G89.29 [facility] [address] [place] [address] July, [facility] [address] [place] [address] Jun, Generalized anxiety disorder F41.1 [facility] [address] [place] [address] Jun, [facility] [address] [place] [address] Jun, Other chronic pain G89.29 [facility] [address] [place] [address] Jun, Rash and other nonspecific skin eruption R21 [facility] [address] [place] [address] Jun, [facility] [address] [place] [address] Jun, [facility] [address] [place] [address] Jun, [facility] [address] [place] [address] Jun, [facility] [address] [place] [address] Jun, [facility] [address] [place] [address] Jun, [facility] [address] [place] [address] Jun, [facility] [address] [place] [address] Jun, Other chronic pain G89.29 [facility] [address] [place] [address] Jun, [facility] [address] [place] [address] Jun, [facility] [address] [place] [address] Jun, [facility] [address] [place] [address] Jun, [facility] [address] [place] [address] Jun, [facility] [address] [place] [address] Jun, [facility] [address] [place] [address] Jun, [facility] [address] [place] [address] Jun, [facility] [address] [place] [address] Jun, [facility] [address] [place] [address] Jun, Nausea and vomiting R11.2 [facility] [address] [place] [address] May, [facility] [address] [place] [address] May, Rash and other nonspecific skin eruption R21 [facility] [address] [place] [address] May, [facility] [address] [place] [address] May, [facility] [address] [place] [address] May, [facility] [address] [place] [address] May, [facility] [address] [place] [address] May, [facility] [address] [place] [phone] 18 May, 2015 Acquired immune deficiency syndrome B20 ; Screening examination for sexually transmitted disease Z11.3 ; Depression with anxiety F41.8 ; Other chronic pain G89.29 and Dermatitis L30.9 [facility] [address] [place] [address] May, [facility] [address] [place] [address] May, [facility] [address] [place] [address] May, [facility] [address] [place] [address] May, Backache M54.9 [facility] [address] [place] [address] May, Rash and other nonspecific skin eruption R21 [facility] [address] [place] [address] Apr, [facility] [address] [place] [address] Apr, [facility] [address] [place] [address] Apr, Other chronic pain G89.29 [facility] [address] [place] [address] Apr, [facility] [address] [place] [address] Apr, [facility] [address] [place] [address] Apr, [facility] [address] [place] [address] Apr, [facility] [address] [place] [address] Apr, [facility] [address] [place] [address] Apr, [facility] [address] [place] [address] Apr, [facility] [address] [place] [address] Apr, [facility] [address] [place] [address] Apr, [facility] [address] [place] [address] Apr, [facility] [address] [place] [address] Apr, Other chronic pain G89.29 ; Generalized anxiety disorder F41.1 ; Nausea R11.0 and AIDS B20 [facility] [address] [place] [address] Apr, [facility] [address] [place] [address] Apr, Generalized anxiety disorder F41.1 [facility] [address] [place] [address] Apr, [facility] [address] [place] [address] Apr, Other chronic pain G89.[address] [address] Mar, [facility] [address] [place] [phone] Mar, 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 administrator (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 Z79.891 ; Bipolar affective disorder F31.9 ; Smoking F17.200 ; Generalized anxiety disorder F41.1 ; Influenza vaccine administered Z23 and AIDS B20 [address] [address] Mar, Other chronic pain G89.[address] [address] Mar, Generalized anxiety disorder F41.[address] [address] Mar, [address] [address] Mar, Asymptomatic HIV infection Z21 [address] [address] Mar, Other chronic pain G89.[address] [address] Feb, [address] [address] Feb, [address] [address] Feb, [facility] [address] [place] [address] Feb, [facility] [address] [place] [address] Feb, [facility] [address] [place] [address] Jan, Other chronic pain G89.29 and Nausea & vomiting R11.2 [facility] [address] [place] [address] Jan, Other chronic pain G89.29 [facility] [address] [place] [address] Dec, [address] [address] Dec, Other chronic pain G89.29 ; Asymptomatic HIV infection Z21 ; Intrinsic asthma J45.909 ; Bipolar affective disorder F31.9 ; Noncompliance Z91.19 ; Migraine G43.909 ; Tobacco use disorder Z72.0 ; GERD (gastroesophageal reflux disease) K21.9 ; Backache M54.9 and Generalized anxiety disorder F41.[address] [address] Nov, [facility] [address] [place] [address] Nov, [address] [address] Oct, Other chronic pain 338.29 [facility] [address] [place] [address] Oct, [facility] [address] [place] [address] Oct, Unspecified backache 724.5 and Dysphagia 787.[address] [address] Sep, Other chronic pain 338.[address] [address] Sep, [address] [place] [address] 30 Aug, 2014 URI (upper respiratory infection) 465.9 and Diarrhea 787.[address] [address] Aug, [address] [address] Aug, Other chronic pain 338.[address] [address] Aug, Other chronic pain 338.29 and Generalized anxiety disorder 300.[address] [address] Aug, [address] [address] July, Other chronic pain 338.29 [facility] [address] [place] [phone] July, Nondependent tobacco use disorder 305.1 ; Unspecified backache 724.5 ; Other chronic pain 338.29 ; Abdominal pain, unspecified site 789.00 ; 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 administrator (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 V58.69 and Acquired immune deficiency syndrome [address] [address] July, Other chronic pain 338.[address] [address] Jun, Other chronic pain 338.[address] [address] Jun, [address] [address] Jun, Other chronic pain 338.[address] [address] Jun, URI (upper respiratory infection) 465.[address] [address] Jun, Generalized anxiety disorder 300.02 and Seasonal allergies 477.[address] [address] Jun, Generalized anxiety disorder 300.02 [facility] [address] [place] [address] May, Other chronic pain 338.29 [facility] [address] [place] [address] May, Other chronic pain 338.29 and Generalized anxiety disorder 300.02 [facility] [address] [place] [address] Apr, Asthma, intrinsic 493.10 and Acute upper respiratory infections of other multiple sites 465.8 [facility] [address] [place] [address] Apr, [facility] [address] [id number] Apr, Depressive disorder 311 [facility] [address] [place] [address] Apr, Other chronic pain 338.[address] [address] Apr, [facility] [address] [place] [address] Apr, Other chronic pain 338.[address] [address] Mar, Acute upper respiratory infections of unspecified site 465.9 [facility] [address] [place] [phone] Mar, Migraine 346.90 ; Nondependent tobacco use disorder 305.1 ; Esophageal reflux 530.81 ; Unspecified backache 724.5 ; Abdominal pain, generalized 789.07 ; Flatulence, eructation, and gas pain 787.3 ; Asymptomatic human immunodeficiency virus (HIV) infection status V08 ; Dyspepsia and other specified disorders of function of stomach 536.8 ; Nausea alone 787.02 and Asthma 493.90 [facility] [address] [place] [address] Mar, Other chronic pain 338.[address] [address] Feb, Other chronic pain 338.29 and Generalized anxiety disorder 300.02 [facility] [address] [place] [address] Feb, Abdominal pain, generalized 789.07 [facility] [address] [place] [address] Jan, Abdominal pain, generalized 789.07 [facility] [address] [place] [phone] Dec, [facility] [address] [place] [address] Dec, [facility] [address] [place] [address] Dec, Unspecified backache 724.5 [facility] [address] [place] [address] Dec, [facility] [address] [place] [address] Nov, [place] [address] [id number] Nov, [facility] [address] [place] [id number] Nov, Bipolar disorder, unspecified 296.80 ; Abdominal pain, generalized 789.07 ; Generalized anxiety disorder 300.02 ; Nausea alone 787.02 ; Flu vaccine need V04.81 and Human immunodeficiency virus (HIV) disease 042 [facility] [address] [place] [id number] Nov, [facility] [place] [facility] [address] [id number] Oct, [facility] [address] [facility] [address] [place], [place] [id number] Oct, [facility] [address] [id number] Aug, [facility] [address] [place] [address] Jun, [facility] [address] [place] [id number] Mar, [facility] [address] [place] [address], [place] [address] Oct, [facility] [address] [place] [address] July, [facility] [address] [place] [address] Jun, [facility] [address] [place] [address] May, [facility] [address] [place] [address] Mar, [facility] [address] [place] [address] Feb, [facility] [address] [place] [address] Nov, [facility] [address] [place] [address] Oct, [facility] [address] [place] [address] Aug, [facility] [address] [place] [address] May, [facility] [address] [place] [address] Mar, IMMUNIZATIONS No Known Immunizations SOCIAL HISTORY Never Assessed REASON FOR VISIT Re: RE:Re: RE:RE:RE:Fatigue PLAN OF CARE VITAL SIGNS MEDICATIONS Medication Instructions Dosage Frequency Start Date End Date Duration Status Zofran 4 MG Orally every 6 hours prn TAKE ONE TABLET BY MOUTH EVERY 8 HOURS FOR 10 DAYS 30 days Active Promethazine HCl 25 MG Orally three times a day 1 tablet as needed 8h Mar, 30 day(s) Active Marinol 10 MG Orally three times a day 1 capsule before lunch and supper 8h Jun, Active Methocarbamol 750 TAKE ONE TABLET BY MOUTH EVERY 8 HOURS FOR 10 DAYS 10 Active ProAir HFA 108 (90 Base) MCG/ACT Inhalation every 4 hrs 2 puffs as needed 4h Sep, 30 days Active Stribild 236-301-127-300 MG Orally Once a day 1 tablet 24h Aug, 30 days Active Ventolin HFA 108 (90 [...] 24h 24 Apr, 2015 30 days Active Zithromax Z-Riky 250 MG Orally Once a day 1 tablet daily 24h May, Active Xanax 1 MG Orally once daily at bedtime 1 tablet as needed Sep, 30 days Active Hydrocodone-Acetaminophen 10-325 MG Orally once a day 1 tablet as needed 24h Oct, July, 30 days Active Hydrochlorothiazide 25 MG Orally Once a day 1 tablet in the morning 24h July, 30 day(s) Active Levaquin 500 MG Orally Once a day 1 tablet 24h Jun, 7 days Active Diflucan 150 Orally Once a day 1 tablet 24h 5 Active RESULTS No Results PROCEDURES No Known [...]
--- OUTSIDE RECORDS SUMMARY | 2017-08-18 14:58 | XMS REPORT ---
Author Dulce Olvera [facility] Address [address] [place], [place] [id number] Care Team Providers Care Computer Aide Name Role Phone Dulce Olvera Unavailable PROBLEMS Type Condition ICD9-CM Code CPO76-OT Code Onset Dates Condition Status SNOMED Code Problem GERD (gastroesophageal reflux disease) K21.9 Active 833706619 Problem Backache M54.9 Active 407306164 Problem Intrinsic asthma J45.909 Active 967498201 Problem Mixed hyperlipidemia E78.2 Active 479966372 Problem Migraine G43.909 Active 45006505 Problem Generalized anxiety disorder F41.1 Active 00492973 Problem Mood swings F39 Active 97086898 Problem Wheezing on auscultation R06.2 Active 429059196 Problem intermediate card tender (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 Z79.891 Active 252700464 Problem Bipolar affective disorder F31.9 Active 92679734 Problem Acquired immune deficiency syndrome B20 Active 82216140 Problem Nicotine dependence, cigarettes, uncomplicated F17.210 Active 61217989 ALLERGIES No Information ENCOUNTERS Encounter Location Date Diagnosis [facility] [address] [place], [place] [id number] Jun, [address] [address] May, Generalized abdominal pain R10.[address] [address] May, [address] [address] Apr, AIDS B20 ; Generalized abdominal pain R10.84 and Dysmenorrhea N94.[address] [address] 14 Apr, 2017 Acute URI J06.[address] [address] Apr, [facility] [address] [place] [address] Apr, [facility] [address] [facility] [place] [id number] Apr, Acquired immune deficiency syndrome B20 ; intermediate card tender ( 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 Z79.891 and Migraine G43.909 [facility] [address] [place] [address] Mar, Dysmenorrhea N94.6 [facility] [address] [place] [address] Mar, [facility] [address] [place] [address] Mar, Generalized anxiety disorder F41.1 and Generalized abdominal pain R10.84 [facility] [address] [place] [address] Mar, [facility] [address] [place] [address] Mar, Generalized abdominal pain R10.84 and Generalized anxiety disorder F41.1 [facility] [address] [place] [address] Feb, [facility] [address] [place] [address] Feb, Generalized abdominal pain R10.84 [facility] [address] [address] Jan, Nausea and vomiting R11.2 [facility] [address] [place] [address] Jan, [facility] [address] [place] [address] Jan, [facility] [address] [place] [address] Jan, [facility] [address] [place] [address] Jan, [facility] [address] [place] [address] Jan, [facility] [address] [place] [address] 08 Jan, 2017 Mood swings F39 [facility] [address] [place] [address] Jan, [facility] [address] [place] [address] Jan, [facility] [address] [place] [address] Jan, [facility] [address] [place] [address] Jan, Dysmenorrhea N94.6 [facility] [address] [place] [id number] Jan, Acquired immune deficiency syndrome B20 ; Generalized abdominal pain R10.84 and Refused influenza vaccine Z28.21 [facility] [address] [place] [address] Jan, [facility] [address] [place] [address] Dec, Generalized abdominal pain R10.84 [facility] [address] [place] [address] Dec, Dysmenorrhea N94.6 [facility] [address] [place] [address] Dec, Backache M54.9 [facility] [address] [place] [address] Nov, Generalized abdominal pain R10.84 [facility] [address] [place] [address] Nov, Generalized anxiety disorder F41.1 [facility] [address] [place] [address] Nov, Dysmenorrhea N94.6 [facility] [address] [place] [address] Oct, [facility] [address] [place] [address] Oct, [facility] [address] [place] [address] Oct, [facility] [address] [place] [address] Oct, Generalized abdominal pain R10.84 [facility] [address] [facility] [place] [id number] Oct, Acquired immune deficiency syndrome B20 ; assisted 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 Z79.891 ; Bipolar affective disorder F31.9 ; Generalized anxiety disorder F41.1 ; Backache M54.9 ; Mixed hyperlipidemia E78.2 ; Nicotine dependence, cigarettes, uncomplicated F17.210 and Wheezing on auscultation R06.[address] [address] Oct, Oral candidiasis B37.[address] [address] Oct, [address] [address] Oct, Acute upper respiratory infection J06.[address] [address] Oct, Acute upper respiratory infection J06.[address] [address] Sep, Dysmenorrhea N94.[address] [address] Sep, Generalized anxiety disorder F41.[address] [address] Sep, Dysmenorrhea N94.[address] [address] Sep, [address] [address] Sep, Dysmenorrhea N94.[address] [address] Aug, Acquired immune deficiency syndrome B20 [address] [address] Aug, Generalized anxiety disorder F41.[address] [place] [address] Aug, [facility] [address] [place] [address] Aug, [facility] [address] [place] [address] Aug, [facility] [address] [place] [address] Aug, [facility] [address] [place] [address] Aug, [facility] [address] [place] [address] Aug, [facility] [address] [place] [address] Aug, [facility] [address] [place] [address] Aug, Acute opioid withdrawal F11.[address] [address] July, Upper respiratory infection J06.9 [facility] [address] [place] [address] July, Backache M54.9 [facility] [address] [place] [id number] July, Acquired immune deficiency syndrome B20 ; assisted 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 Z79.891 ; Hyperglycemia R73.9 ; Bipolar affective disorder F31.9 ; GERD (gastroesophageal reflux disease) K21.9 ; Backache M54.9 ; Generalized anxiety disorder F41.1 ; Mixed hyperlipidemia E78.2 ; Nicotine dependence, cigarettes, uncomplicated F17.210 and Localized edema R60.0 [facility] [address] [place] [address] July, [facility] [address] [place] [address] Jun, Backache M54.9 [facility] [address] [place] [address] Jun, Chronic pain G89.[address] [address] May, Backache M54.[address] [address] May, Backache M54.[address] [address] Apr, Cough R05 [facility] [address] [facility] [place] [id number] Apr, Acquired immune deficiency syndrome B20 ; Screening examination for sexually transmitted disease Z11.3 ; Dermatitis L30.9 and Migraine with aura and with status migrainosus, not intractable G43.[address] [address] Apr, Backache M54.[address] [address] Mar, Intrinsic asthma J45.909 ; Nausea and vomiting R11.2 and AIDS B20 [address] [address] Mar, Backache M54.[address] [address] Feb, Chronic pain G89.[address] [address] Feb, Backache M54.[address] [address] Jan, [place] eye, 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 [address] Jan, Asthma, intrinsic 493.[address] [address] Jan, [address] [address] Jan, [address] [address] Jan, Backache M54.[address] [address] Dec, Chronic pain G89.29 [facility] [address] [facility] [place] [id number] Dec, AIDS B20 ; Influenza vaccine needed Z23 ; Intrinsic asthma J45.909 ; Backache M54.9 ; Generalized anxiety disorder F41.1 ; Nicotine dependence, cigarettes, uncomplicated F17.210 and Mixed hyperlipidemia E78.2 [facility] [address] [place] [address] Dec, [facility] [address] [place] [address] Dec, Dysmenorrhea N94.[address] [address] Dec, [address] [address] Dec, Depression with anxiety F41.8 and Backache M54.[address] [address] Nov, [facility] [address] [place] [address] Nov, Other chronic pain G89.[address] [address] 18 Nov, 2015 Other chronic pain G89.[address] [address] 18 Nov, 2015 [facility] [address] [place] [address] 14 Nov, 2015 Generalized anxiety disorder F41.1 [facility] [address] [place] [address] 06 Nov, 2015 [facility] [address] [place] [address] Nov, [facility] [address] [place] [address] 04 Nov, 2015 Chronic pain G89.[address] [address] Oct, [facility] [address] [place] [address] Oct, Other chronic pain G89.29 [facility] [address] [place] [address] Oct, [facility] [address] [place] [address] Oct, [facility] [address] [place] [address] Oct, Nausea and vomiting R11.2 [facility] [address] [place] [address] Oct, Chronic pain G89.29 [facility] [address] [place] [address] Sep, [facility] [address] [place] [address] Sep, Acute upper respiratory infection, unspecified J06.9 [facility] [address] [place] [address] Sep, Upper respiratory infection J06.9 [facility] [address] [place] [address] Sep, [facility] [address] [place] [address] Sep, [facility] [address] [place] [address] Sep, Other chronic pain G89.29 [facility] [address] [place] [id number] Sep, AIDS B20 ; assisted (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 Z79.891 ; Smoking F17.200 ; Mixed hyperlipidemia E78.2 ; Chronic pain G89.29 and Edema R60.9 [facility] [address] [place] [address] Sep, [facility] [address] [place] [address] Sep, [facility] [address] [place] [address] Aug, [facility] [address] [place] [address] Aug, Other chronic pain G89.29 [facility] [address] [place] [facility] [place] [address] Aug, Generalized anxiety disorder F41.1 [facility] [address] [place] [facility] [place] [address] July, Other chronic pain G89.29 [facility] [address] [place] [facility] [place] [address] July, Other chronic pain G89.29 [facility] [address] [place] [facility] [place] [address] July, [facility] [address] [place] [facility] [place] [address] Jun, Generalized anxiety disorder F41.1 [facility] [address] [place] [facility] [place] [address] Jun, [facility] [address] [place] [facility] [place] [address] Jun, Other chronic pain G89.29 [facility] [address] [place] [facility] [place] [address] Jun, Rash and other nonspecific skin eruption R21 [facility] [address] [place] [facility] [place] [address] Jun, [facility] [address] [place] [facility] [place] [address] Jun, [facility] [address] [place] [facility] [place] [address] Jun, [facility] [address] [place] [facility] [place] [address] Jun, [facility] [address] [place] [facility] [place] [address] Jun, [facility] [address] [place] [facility] [place] [address] Jun, [facility] [address] [place] [facility] [place] [address] Jun, [facility] [address] [place] [facility] [place] [address] Jun, Other chronic pain G89.29 [facility] [address] [place] [facility] [place] [address] Jun, [facility] [address] [place] [facility] [place] [address] Jun, [facility] [address] [place] [facility] [place] [address] Jun, [facility] [address] [place] [facility] [place] [address] Jun, [facility] [address] [place] [facility] [place] [address] Jun, [facility] [address] [place] [facility] [place] [address] Jun, [facility] [address] [place] [facility] [place] [address] Jun, [facility] [address] [place] [facility] [place] [address] Jun, [facility] [address] [place] [facility] [place] [address] Jun, [facility] [address] [place] [facility] [place] [address] Jun, Nausea and vomiting R11.2 [facility] [address] [place] [facility] [place] [address] May, [facility] [address] [place] [facility] [place] [address] May, Rash and other nonspecific skin eruption R21 [facility] [address] [place] [facility] [place] [address] May, [facility] [address] [place] [facility] [place] [address] May, [facility] [address] [place] [facility] [place] [address] May, [facility] [address] [place] [facility] [place] [address] May, [facility] [address] [place] [facility] [place] [address] May, [facility] [address] [place] [id number] May, Acquired immune deficiency syndrome B20 ; Screening examination for sexually transmitted disease Z11.3 ; Depression with anxiety F41.8 ; Other chronic pain G89.29 and Dermatitis L30.9 [facility] [address] [place] [address] May, [facility] [address] [place] [address] May, [facility] [address] [place] [address] May, [facility] [address] [place] [address] May, Backache M54.9 [facility] [address] [place] [address] May, Rash and other nonspecific skin eruption R21 [facility] [address] [place] [address] Apr, [facility] [address] [place] [address] Apr, [facility] [address] [place] [address] Apr, Other chronic pain G89.29 [facility] [address] [place] [address] Apr, [facility] [address] [place] [address] Apr, [facility] [address] [place] [address] Apr, [facility] [address] [place] [address] Apr, [facility] [address] [place] [address] Apr, [facility] [address] [place] [address] Apr, [facility] [address] [place] [address] Apr, [facility] [address] [place] [address] Apr, [facility] [address] [place] [address] Apr, [facility] [address] [place] [address] Apr, [facility] [address] [place] [address] Apr, Other chronic pain G89.29 ; Generalized anxiety disorder F41.1 ; Nausea R11.0 and AIDS B20 [facility] [address] [place] [address] Apr, [facility] [address] [place] [address] Apr, Generalized anxiety disorder F41.[address] [address] Apr, [address] [address] Apr, Other chronic pain G89.[address] [address] Mar, [facility] [address] [place] [id number] Mar, intermediate card tender (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 Z79.891 ; Bipolar affective disorder F31.9 ; Smoking F17.200 ; Generalized anxiety disorder F41.1 ; Influenza vaccine administered Z23 and AIDS B20 [address] [address] Mar, Other chronic pain G89.29 [facility] [address] [place] [address] Mar, Generalized anxiety disorder F41.[address] [address] Mar, [facility] [address] [place] [address] Mar, Asymptomatic HIV infection Z21 [address] [address] Mar, Other chronic pain G89.29 [address] [place] [address] Feb, [facility] [address] [place] [address] Feb, [facility] [address] [place] [address] Feb, [facility] [address] [place] [address] Feb, [facility] [address] [place] [address] Feb, [facility] [address] [place] [address] Jan, Other chronic pain G89.29 and Nausea & vomiting R11.[address] [address] Jan, Other chronic pain G89.[address] [address] Dec, [address] [address] Dec, Other chronic pain G89.29 ; Asymptomatic HIV infection Z21 ; Intrinsic asthma J45.909 ; Bipolar affective disorder F31.9 ; Noncompliance Z91.19 ; Migraine G43.909 ; Tobacco use disorder Z72.0 ; GERD (gastroesophageal reflux disease) K21.9 ; Backache M54.9 and Generalized anxiety disorder F41.[address] [address] Nov, [address] [address] Nov, [address] [address] Oct, Other chronic pain 338.[address] [address] Oct, [address] [address] Oct, Unspecified backache 724.5 and Dysphagia 787.[address] [place] [address] Sep, Other chronic pain 338.[address] [address] Sep, [address] [address] Aug, URI (upper respiratory infection) 465.9 and Diarrhea 787.[address] [address] Aug, [address] [address] Aug, Other chronic pain 338.[address] [address] Aug, Other chronic pain 338.29 and Generalized anxiety disorder 300.[address] [address] Aug, [address] [address] July, Other chronic pain 338.29 [facility] [address] [place] [id number] July, Nondependent tobacco use disorder 305.1 ; Unspecified backache 724.5 ; Other chronic pain 338.29 ; Abdominal pain, unspecified site 789.00 ; intermediate card tender (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 V58.69 and Acquired immune deficiency syndrome [address] [address] July, Other chronic pain 338.[address] [address] Jun, Other chronic pain 338.[address] [address] Jun, [address] [address] Jun, Other chronic pain 338.[address] [address] Jun, URI (upper respiratory infection) 465.[address] [place] [place] [address] Jun, Generalized anxiety disorder 300.02 and Seasonal allergies 477.9 [facility] [address] [place] [address] Jun, Generalized anxiety disorder 300.02 [facility] [address] [place] [address] May, Other chronic pain 338.29 [facility] [address] [place] [address] May, Other chronic pain 338.29 and Generalized anxiety disorder 300.02 [facility] [address] [place] [address] Apr, Asthma, intrinsic 493.10 and Acute upper respiratory infections of other multiple sites 465.8 [facility] [address] [place] [address] Apr, [facility] [address] [facility] [address] [place] [id number] Apr, Depressive disorder 311 [facility] [address] [place] [address] Apr, Other chronic pain 338.29 [facility] [address] [place] [address] Apr, [facility] [address] [place] [address] Apr, Other chronic pain 338.29 [facility] [address] [place] [address] Mar, Acute upper respiratory infections of unspecified site 465.9 [facility] [address] [place] [id number] Mar, Migraine 346.90 ; Nondependent tobacco use disorder 305.1 ; Esophageal reflux 530.81 ; Unspecified backache 724.5 ; Abdominal pain, generalized 789.07 ; Flatulence, eructation, and gas pain 787.3 ; Asymptomatic human immunodeficiency virus (HIV) infection status V08 ; Dyspepsia and other specified disorders of function of stomach 536.8 ; Nausea alone 787.02 and Asthma 493.90 [facility] [address] [place] [address] Mar, Other chronic pain 338.29 [facility] [address] [place] [address] Feb, Other chronic pain 338.29 and Generalized anxiety disorder 300.02 [facility] [address] [place] [address] Feb, Abdominal pain, generalized 789.07 [facility] [address] [place] [address] Jan, Abdominal pain, generalized 789.07 [facility] [address] [place] [id number] Dec, [address] [address] Dec, [address] [address] Dec, Unspecified backache 724.[address] [address] Dec, [facility] [address] [place] [address] Nov, [facility] [address] [id number] Nov, [facility] [address] [place] [id number] Nov, Bipolar disorder, unspecified 296.80 ; Abdominal pain, generalized 789.07 ; Generalized anxiety disorder 300.02 ; Nausea alone 787.02 ; Flu vaccine need V04.81 and Human immunodeficiency virus (HIV) disease 042 [facility] [address] [place] [address] Nov, [facility] [address] [facility] [address] [place] [id number] Oct, [facility] [address] [facility] [address] [place] [id number] Oct, [facility] [address] [facility] [address] [place] [id number] Aug, [facility] [address] [place] [facility] [place] [address] Jun, [facility] [address] [place] [facility] [place] [address] Mar, [facility] [address] [place] [facility] [place] [address] Oct, [facility] [facility] [address] [place] [address] July, [facility] [address] [place] [address] Jun, [facility] [address] [place] [address] May, [facility] [address] [place] [address] Mar, [facility] [address] [place] [address] Feb, [facility] [address] [place] [address] Nov, [facility] [address] [place] [address] Oct, [facility] [address] [place] [address] Aug, [facility] [address] [place] [address] May, [facility] [address] [place] [address] Mar, IMMUNIZATIONS No Known Immunizations SOCIAL HISTORY Never Assessed REASON FOR VISIT Hydrocodone RX PLAN OF CARE VITAL SIGNS MEDICATIONS Medication Instructions Dosage Frequency Start Date End Date Duration Status Stribild [id number] MG Orally Once a day 1 tablet 24h Aug, 30 days Active [facility] Omeprazole 20 MG Orally Once a day 1 tablet 24h Mar, 30 day (s) Active Zofran 8 mg [...] a day 1 tablet 24h 5 Active ProAir HFA 108 (90 Base) MCG/ACT Inhalation every 4 hrs 2 puffs as needed 4h 25 Sep, 2015 30 days Active Hydrocodone-Acetaminophen 10-325 MG Orally every 6 hrs 1 tablet as needed 6h Oct, Jun, 30 days Active Zithromax Z-Riky 250 MG Orally Once a day 2 tablets on the first day, then 1 tablet daily for 4 days 24h May, 5 day(s) Active Methocarbamol 750 MG Orally every 8 hrs 1 tablet 8h 18 Dec, 2015 10 days Active Marinol 10 MG Orally Twice a day 1 capsule before lunch and supper 12h Jun, 30 days Active HydrOXYzine HCl 25 MG Orally every 12 hrs 1 tablet 12h Jan, 30 day(s) Active Promethazine HCl 25 MG Orally three times a day 1 tablet as needed 8h 20 Mar, 2016 30 day(s) Active Xanax 1 MG Orally Twice a day 1 tablet as needed 12h Sep, 30 days Active Clonidine HCl 0.1 MG Orally every 4 hrs 1 tablet as needed do not take is BP is <100/60 4h 08 Aug, 2016 Active Ventolin HFA 108 (90 Base) MCG/ACT Inhalation every 4 hrs 2 puffs as needed 4h 11 Oct, 2016 30 days Active Tramadol HCl 50 MG Orally every 4-6 hrs 1 tablet as needed Sep, 30 days Active Dapsone 100 MG Orally Once a day 1 tablet 24h 24 Apr, 2015 30 days Active Methocarbamol 750 TAKE [...]
--- OUTSIDE RECORDS SUMMARY | 2017-08-18 14:59 | XMS REPORT ---
Author Dulce Clark [facility] Address [address], [place] [id number] Care Team Providers Care Nephrology Social Worker Name Role Phone Dulce Olvera Unavailable PROBLEMS Type Condition ICD9-CM Code JLH02-[id number] Code Onset Dates Condition Status SNOMED Code Problem GERD (gastroesophageal reflux disease) K21.9 Active 393096120 Problem Backache M54.9 Active 983414375 Problem Intrinsic asthma J45.909 Active 491832329 Problem Mixed hyperlipidemia E78.2 Active 170034189 Problem Migraine G43.909 Active 39038324 Problem Generalized anxiety disorder F41.1 Active 68069006 Problem Mood swings F39 Active 10466667 Problem Wheezing on auscultation R06.2 Active 943258867 Problem long-term (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 Z79.891 Active 354916454 Problem Bipolar affective disorder F31.9 Active 35278314 Problem Acquired immune deficiency syndrome B20 Active 03862517 Problem Nicotine dependence, cigarettes, uncomplicated F17.210 Active 53290590 ALLERGIES No Information SOCIAL HISTORY Never Assessed PLAN OF CARE VITAL SIGNS MEDICATIONS Medication Instructions Dosage Frequency Start Date End Date Duration Status Ciprofloxacin HCl 0.3 % Ophthalmic every 4 hrs 1 drop into affected ear while awake 4h 5 day(s) Active RESULTS No Results PROCEDURES No [...]
--- OUTSIDE RECORDS SUMMARY | 2017-08-18 14:59 | XMS REPORT ---
Author Author Dulce Herrera [facility] Address [address], [place] [id number] Care Team Providers Care Music Store Manager Name Role Phone Dulce Herrera Unavailable PROBLEMS Type Condition ICD9-CM Code WGV02-UD Code Onset Dates Condition Status SNOMED Code Problem Bipolar affective disorder F31.9 Active 12720198 Problem Nicotine dependence, cigarettes, uncomplicated F17.210 Active 86490166 Problem alf (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 Z79.891 Active 067718460 Problem Non-intractable cyclical vomiting with nausea G43.A0 Active 59466163 Problem Poor appetite R63.0 Active 48472227 Problem Wheezing on auscultation R06.2 Active 342221464 Problem Acquired immune deficiency syndrome B20 Active 34234763 Problem Other chronic pain G89.29 Active 13938989 Problem Mood swings F39 Active 83205529 Problem Generalized anxiety disorder F41.1 Active 66866411 Problem GERD (gastroesophageal reflux disease) K21.9 Active 865840916 Problem Mixed hyperlipidemia E78.2 Active 101604834 Problem Intrinsic asthma J45.909 Active 777448746 Problem Migraine G43.909 Active 63120372 Problem Backache M54.9 Active 139410344 ALLERGIES No Information ENCOUNTERS Encounter Location Date Diagnosis [facility] [address] [id number] Sep, [facility] [address] [place] [address] Aug, [facility] [address] [place] [address] Aug, [facility] [address] [place] [address] Aug, [facility] [address] [place] [address] July, [facility] [address] [place] [address] July, [facility] [address] [place] [facility] [place] [address] July, [facility] [address] [place] [address] July, [facility] [address] [place] [address] July, [facility] [address] [place] [address] July, Poor appetite R63.0 and Backache M54.9 [facility] [address] [place] [address] July, [facility] [address] [place] [address] July, [facility] [address] [place] [address] July, [facility] [address] [place] [address] July, [facility] [address] [place] [address] July, [facility] [address] [place] [address] July, Nausea and vomiting R11.2 [facility] [address] [place] [address] July, [facility] [address] [place] [address] July, [facility] [address] [place] [address] July, [facility] [address] [place] [address] July, [facility] [address] [place] [address] July, [facility] [address] [place] [address] July, Other chronic pain G89.29 [facility] [address] [place] [address] July, [facility] [address] [place] [address] July, GERD (gastroesophageal reflux disease) K21.9 [facility] [address] [place] [address] July, [facility] [address] [place] [address] Jun, [facility] [address] [place] [address] Jun, [facility] [address] [place] [address] Jun, [facility] [address] [place] [address] Jun, [facility] [address] [place] [address] Jun, Other chronic pain G89.29 [facility] [address] [place] [address] Jun, [facility] [address] [place] [address] Jun, [facility] [address] [place] [address] Jun, [facility] [address] [place] [address] Jun, [facility] [address] [place] [address] Jun, [facility] [address] [place] [address] Jun, Generalized anxiety disorder F41.1 ; Other chronic pain G89.29 and Non-intractable cyclical vomiting with nausea G43.A0 [facility] [address] [id number] Jun, Acquired immune deficiency syndrome B20 ; 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 ; Nicotine dependence, cigarettes, uncomplicated F17.210 ; Lower respiratory infection J22 ; Poor appetite R63.0 ; Other chronic pain G89.29 ; Generalized anxiety disorder F41.1 and Need for tetanus booster Z23 [facility] [address] [place] [address] Jun, [facility] [address] [place] [address] May, Generalized abdominal pain R10.84 [facility] [address] [place] [address] May, [facility] [address] [place] [address] Apr, AIDS B20 ; Generalized abdominal pain R10.84 and Dysmenorrhea N94.6 [facility] [address] [place] [address] Apr, Acute URI J06.[address] [address] Apr, [facility] [address] [place] [address] Apr, [facility] [address] [id number] Apr, Acquired immune deficiency syndrome B20 ; alf ( 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 Z79.891 and Migraine G43.[address] [address] Mar, Dysmenorrhea N94.[address] [address] Mar, [address] [address] Mar, Generalized anxiety disorder F41.1 and Generalized abdominal pain R10.84 [facility] [address] [place] [address] Mar, [facility] [address] [place] [address] Mar, Generalized abdominal pain R10.84 and Generalized anxiety disorder F41.1 [facility] [address] [place] [address] Feb, [address] [address] Feb, Generalized abdominal pain R10.84 [facility] [address] [place] [address] 28 Jan, 2017 Nausea and vomiting R11.2 [facility] [address] [place] [address] 18 Jan, 2017 [facility] [address] [place] [address] 16 Jan, 2017 [facility] [address] [place] [address] Jan, [facility] [address] [place] [address] Jan, [facility] [address] [place] [address] Jan, [facility] [address] [place] [address] 08 Jan, 2017 Mood swings F39 [facility] [address] [place] [address] Jan, [facility] [address] [place] [address] Jan, [facility] [address] [place] [address] Jan, [facility] [address] [place] [address] Jan, Dysmenorrhea N94.6 [facility] [address] [place] [id number] Jan, Acquired immune deficiency syndrome B20 ; Generalized abdominal pain R10.84 and Refused influenza vaccine Z28.21 [facility] [address] [place] [address] Jan, [facility] [address] [place] [address] Dec, Generalized abdominal pain R10.84 [facility] [address] [place] [address] Dec, Dysmenorrhea N94.6 [facility] [address] [place] [address] Dec, Backache M54.[address] [address] Nov, Generalized abdominal pain R10.[address] [address] Nov, Generalized anxiety disorder F41.[address] [address] Nov, Dysmenorrhea N94.[address] [address] Oct, [address] [address] Oct, [address] [address] Oct, [address] [address] Oct, Generalized abdominal pain R10.84 [facility] [address] [id number] Oct, Acquired immune deficiency syndrome B20 ; 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 ; Bipolar affective disorder F31.9 ; Generalized anxiety disorder F41.1 ; Backache M54.9 ; Mixed hyperlipidemia E78.2 ; Nicotine dependence, cigarettes, uncomplicated F17.210 and Wheezing on auscultation R06.[address] [address] Oct, Oral candidiasis B37.[address] [address] Oct, [address] [address] Oct, Acute upper respiratory infection J06.[address] [address] Oct, Acute upper respiratory infection J06.[address] [address] Sep, Dysmenorrhea N94.[address] [address] Sep, Generalized anxiety disorder F41.1 [facility] [address] [place] [address] Sep, Dysmenorrhea N94.6 [facility] [address] [place] [address] Sep, [facility] [address] [place] [address] Sep, Dysmenorrhea N94.6 [facility] [address] [place] [address] Aug, Acquired immune deficiency syndrome B20 [facility] [address] [place] [address] Aug, Generalized anxiety disorder F41.1 [facility] [address] [place] [address] Aug, [facility] [address] [place] [address] Aug, [facility] [address] [place] [address] Aug, [facility] [address] [place] [address] Aug, [facility] [address] [place] [address] Aug, [facility] [address] [place] [address] Aug, [facility] [address] [place] [address] Aug, [facility] [address] [place] [address] Aug, Acute opioid withdrawal F11.23 [facility] [address] [place] [address] July, Upper respiratory infection J06.9 [facility] [address] [place] [address] July, Backache M54.9 [facility] [address] [address] July, Acquired immune deficiency syndrome B20 ; 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 ; Hyperglycemia R73.9 ; Bipolar affective disorder F31.9 ; GERD (gastroesophageal reflux disease) K21.9 ; Backache M54.9 ; Generalized anxiety disorder F41.1 ; Mixed hyperlipidemia E78.2 ; Nicotine dependence, cigarettes, uncomplicated F17.210 and Localized edema R60.[address] [address] July, [address] [address] Jun, Backache M54.[address] [address] Jun, Chronic pain G89.[address] [address] May, Backache M54.[address] [address] May, Backache M54.[address] [address] Apr, Cough R05 [facility] [address] [place] [phone] Apr, Acquired immune deficiency syndrome B20 ; Screening examination for sexually transmitted disease Z11.3 ; Dermatitis L30.9 and Migraine with aura and with status migrainosus, not intractable G43.[address] [address] Apr, Backache M54.[address] [address] Mar, Intrinsic asthma J45.909 ; Nausea and vomiting R11.2 and AIDS B20 [address] [address] Mar, Backache M54.[address] [address] Feb, Chronic pain G89.[address] [address] Feb, Backache M54.9 [facility] [address] [place] [address] Jan, [place] [facility], 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 [facility] [address] [place] [address] Jan, Asthma, intrinsic 493.10 [facility] [address] [place] [address] Jan, [facility] [address] [place] [address] Jan, [facility] [address] [place] [address] Jan, Backache M54.[address] [address] Dec, Chronic pain G89.29 [facility] [address] [id number] Dec, AIDS B20 ; Influenza vaccine needed Z23 ; Intrinsic asthma J45.909 ; Backache M54.9 ; Generalized anxiety disorder F41.1 ; Nicotine dependence, cigarettes, uncomplicated F17.210 and Mixed hyperlipidemia E78.[address] [address] Dec, [address] [address] Dec, Dysmenorrhea N94.[address] [address] Dec, [address] [address] Dec, Depression with anxiety F41.8 and Backache M54.[address] [address] Nov, [address] [address] Nov, Other chronic pain G89.[address] [address] 18 Nov, 2015 Other chronic pain G89.[address] [place] [address] Nov, [facility] [address] [place] [address] Nov, Generalized anxiety disorder F41.1 [facility] [address] [place] [address] Nov, [facility] [address] [place] [address] Nov, [facility] [address] [place] [address] Nov, Chronic pain G89.29 [facility] [address] [place] [address] Oct, [facility] [address] [place] [address] Oct, Other chronic pain G89.29 [facility] [address] [place] [address] Oct, [facility] [address] [place] [address] Oct, [facility] [address] [place] [address] Oct, Nausea and vomiting R11.2 [facility] [address] [place] [address] Oct, Chronic pain G89.29 [facility] [address] [place] [address] Sep, [facility] [address] [place] [address] Sep, Acute upper respiratory infection, unspecified J06.9 [facility] [address] [place] [address] Sep, Upper respiratory infection J06.9 [facility] [address] [place] [address] Sep, [facility] [address] [place] [address] Sep, [facility] [address] [place] [address] Sep, Other chronic pain G89.29 [facility] [address] [facility] [place] [id number] Sep, AIDS B20 ; alf (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 Z79.891 ; Smoking F17.200 ; Mixed hyperlipidemia E78.2 ; Chronic pain G89.29 and Edema R60.9 [facility] [address] [place] [address] Sep, [facility] [address] [place] [address] Sep, [facility] [address] [place] [address] Aug, [facility] [address] [place] [address] Aug, Other chronic pain G89.[address] [address] Aug, Generalized anxiety disorder F41.[address] [address] July, Other chronic pain G89.29 [facility] [address] [place] [address] July, Other chronic pain G89.[address] [address] July, [facility] [address] [place] [address] Jun, Generalized anxiety disorder F41.1 [facility] [address] [place] [address] Jun, [facility] [address] [place] [address] Jun, Other chronic pain G89.29 [facility] [address] [place] [address] Jun, Rash and other nonspecific skin eruption R21 [facility] [address] [place] [address] Jun, [facility] [address] [place] [address] Jun, [facility] [address] [place] [address] Jun, [facility] [address] [place] [address] Jun, [facility] [address] [place] [address] Jun, [facility] [address] [place] [address] Jun, [facility] [address] [place] [address] Jun, [facility] [address] [place] [address] Jun, Other chronic pain G89.29 [facility] [address] [place] [address] Jun, [facility] [address] [place] [address] Jun, [facility] [address] [place] [address] Jun, [facility] [address] [place] [address] Jun, [facility] [address] [place] [address] Jun, [facility] [address] [place] [address] Jun, [facility] [address] [place] [address] Jun, [facility] [address] [place] [address] Jun, [facility] [address] [place] [address] Jun, [facility] [address] [place] [address] Jun, Nausea and vomiting R11.2 [facility] [address] [place] [address] May, [facility] [address] [place] [address] May, Rash and other nonspecific skin eruption R21 [facility] [address] [place] [address] May, [facility] [address] [place] [address] May, [facility] [address] [place] [address] May, [facility] [address] [place] [address] May, [facility] [address] [place] [address] May, [facility] [address] [id number] May, Acquired immune deficiency syndrome B20 ; Screening examination for sexually transmitted disease Z11.3 ; Depression with anxiety F41.8 ; Other chronic pain G89.29 and Dermatitis L30.9 [facility] [address] [place] [address] May, [facility] [address] [place] [address] May, [facility] [address] [place] [address] May, [facility] [address] [place] [address] May, Backache M54.9 [facility] [address] [place] [address] May, Rash and other nonspecific skin eruption R21 [facility] [address] [place] [address] Apr, [facility] [address] [place] [address] Apr, [facility] [address] [place] [address] Apr, Other chronic pain G89.29 [facility] [address] [place] [address] Apr, [facility] [address] [place] [address] Apr, [facility] [address] [place] [address] Apr, [facility] [address] [place] [address] Apr, [facility] [address] [place] [address] Apr, [facility] [address] [place] [address] Apr, [facility] [address] [place] [address] Apr, [facility] [address] [place] [address] Apr, [facility] [address] [place] [address] Apr, [facility] [address] [place] [address] Apr, [facility] [address] [place] [address] Apr, Other chronic pain G89.29 ; Generalized anxiety disorder F41.1 ; Nausea R11.0 and AIDS B20 [facility] [address] [place] [address] Apr, [facility] [address] [place] [address] Apr, Generalized anxiety disorder F41.1 [facility] [address] [place] [address] Apr, [facility] [address] [place] [address] Apr, Other chronic pain G89.29 [facility] [address] [place] [address] Mar, [facility] [address] [id number] Mar, 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 ; Bipolar affective disorder F31.9 ; Smoking F17.200 ; Generalized anxiety disorder F41.1 ; Influenza vaccine administered Z23 and AIDS B20 [facility] [address] [place] [address] Mar, Other chronic pain G89.29 [facility] [address] [place] [address] Mar, Generalized anxiety disorder F41.[address] [address] Mar, [facility] [address] [place] [address] Mar, Asymptomatic HIV infection Z21 [address] [address] Mar, Other chronic pain G89.[address] [address] Feb, [address] [address] Feb, [facility] [address] [place] [address] Feb, [facility] [address] [place] [address] Feb, [address] [address] Feb, [address] [address] Jan, Other chronic pain G89.29 and Nausea & vomiting R11.[address] [address] Jan, Other chronic pain G89.29 [facility] [address] [place] [address] Dec, [facility] [address] [place] [address] Dec, Other chronic pain G89.29 ; Asymptomatic HIV infection Z21 ; Intrinsic asthma J45.909 ; Bipolar affective disorder F31.9 ; Noncompliance Z91.19 ; Migraine G43.909 ; Tobacco use disorder Z72.0 ; GERD (gastroesophageal reflux disease) K21.9 ; Backache M54.9 and Generalized anxiety disorder F41.1 [facility] [address] [place] [address] Nov, [facility] [address] [place] [address] Nov, [facility] [address] [place] [address] Oct, Other chronic pain 338.[address] [address] Oct, [address] [address] Oct, Unspecified backache 724.5 and Dysphagia 787.[address] [address] Sep, Other chronic pain 338.[address] [address] Sep, [address] [address] Aug, URI (upper respiratory infection) 465.9 and Diarrhea 787.[address] [address] Aug, [address] [address] Aug, Other chronic pain 338.[address] [address] Aug, Other chronic pain 338.29 and Generalized anxiety disorder 300.[address] [address] Aug, [facility] [address] [place] [address] July, Other chronic pain 338.29 [facility] [address] [id number] July, Nondependent tobacco use disorder 305.1 ; Unspecified backache 724.5 ; Other chronic pain 338.29 ; Abdominal pain, unspecified site 789.00 ; 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 V58.69 and Acquired immune deficiency syndrome 042 [facility] [address] [place] [address] July, Other chronic pain 338.29 [facility] [address] [place] [address] Jun, Other chronic pain 338.29 [facility] [address] [place] [address] Jun, [facility] [address] [place] [address] Jun, Other chronic pain 338.29 [facility] [address] [place] [address] Jun, URI (upper respiratory infection) 465.9 [facility] [address] [place] [address] Jun, Generalized anxiety disorder 300.02 and Seasonal allergies 477.[address] [address] Jun, Generalized anxiety disorder 300.02 [facility] [address] [place] [address] May, Other chronic pain 338.29 [facility] [address] [place] [address] May, Other chronic pain 338.29 and Generalized anxiety disorder 300.02 [facility] [address] [place] [address] Apr, Asthma, intrinsic 493.10 and Acute upper respiratory infections of other multiple sites 465.8 [facility] [address] [place] [address] Apr, [facility] [address] [facility] [address] [place] [id number] Apr, Depressive disorder 311 [facility] [address] [place] [address] Apr, Other chronic pain 338.29 [facility] [facility] [address] [place] [phone] Apr, [facility] [place] [address] Apr, Other chronic pain 338.[address] [address] 14 Mar, 2014 Acute upper respiratory infections of unspecified site 465.9 [facility] [address] [place] [phone] Mar, Migraine 346.90 ; Nondependent tobacco use disorder 305.1 ; Esophageal reflux 530.81 ; Unspecified backache 724.5 ; Abdominal pain, generalized 789.07 ; Flatulence, eructation, and gas pain 787.3 ; Asymptomatic human immunodeficiency virus (HIV) infection status V08 ; Dyspepsia and other specified disorders of function of stomach 536.8 ; Nausea alone 787.02 and Asthma 493.[address] [address] Mar, Other chronic pain 338.[address] [address] Feb, Other chronic pain 338.29 and Generalized anxiety disorder 300.[address] [address] Feb, Abdominal pain, generalized 789.[address] [address] Jan, Abdominal pain, generalized 789.07 [facility] [address] [place] [phone] Dec, [address] [address] Dec, [address] [address] Dec, Unspecified backache 724.[address] [address] Dec, [address] [address] Nov, [facility] [address] [facility] [address] [place] [phone] Nov, [facility] [address] [facility] [phone] Nov, Bipolar disorder, unspecified 296.80 ; Abdominal pain, generalized 789.07 ; Generalized anxiety disorder 300.02 ; Nausea alone 787.02 ; Flu vaccine need V04.81 and Human immunodeficiency virus (HIV) disease 042 [facility] [address] [place] [address] Nov, [facility] [place] [facility] [address] [facility] [address] [place], [place] [phone] Oct, [facility] [place] [facility] [address] [facility] [address] [place], [place] [phone] Oct, [facility] [address] [facility] [address] [place], [place] [phone] Aug, [facility] [address] [place] [address] Jun, [facility] [address] [place] [facility] [place] [address] Mar, [facility] [address] [place] [address] Oct, [facility] [address] [place] [address] July, [facility] [address] [place] [address] Jun, [facility] [address] [place] [address] May, [facility] [address] [place] [address] Mar, [facility] [address] [place] [address] Feb, [facility] [address] [place] [address] Nov, [facility] [address] [place] [address] Oct, [facility] [address] [place] [address] Aug, [facility] [address] [place] [address] May, [facility] [address] [place] [address] Mar, IMMUNIZATIONS No Known Immunizations SOCIAL HISTORY Never Assessed REASON FOR VISIT Pain management PLAN OF CARE VITAL SIGNS MEDICATIONS Unknown [...]
--- OUTSIDE RECORDS SUMMARY | 2017-08-18 15:00 | XMS REPORT ---
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 Name Role Phone Zandra Watson Unavailable PROBLEMS Type Condition ICD9-CM Code [id number] Code Onset Dates Condition Status SNOMED Code Problem Bipolar affective disorder F31.9 Active 48297008 Problem penitentiary (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 Z79.891 Active 495070740 Problem Intrinsic asthma J45.909 Active 476694782 Problem Acquired immune deficiency syndrome B20 Active 03823646 Problem Hyperglycemia R73.9 Active 02185454 Problem Dysmenorrhea N94.6 Active 345235060 Problem Nicotine dependence, cigarettes, uncomplicated F17.210 Active 29602375 Problem Localized edema R60.0 Active 816900686 Problem Dermatitis L30.9 Active 46205964 Problem Generalized anxiety disorder F41.1 Active 09004461 Problem Backache M54.9 Active 291384750 Problem GERD (gastroesophageal reflux disease) K21.9 Active 725177262 Problem Mixed hyperlipidemia E78.2 Active 747102129 Problem Migraine G43.909 Active 69646184 ALLERGIES Unknown Allergies SOCIAL HISTORY No smoking [...] tablet 24h Mar, 30 day (s) Active ProAir HFA 108 (90 Base) MCG/ACT Inhalation every 4 hrs 2 puffs as needed 4h Sep, 30 days Active Methocarbamol 750 Orally every 8 hrs 1 tablet 8h 10 Active Stribild [id number] MG Orally Once a day 1 tablet 24h Aug, 30 days Active Clonidine HCl 0.1 MG Orally every 4 hrs 1 tablet as needed do not take is BP is <100/60 4h 08 Aug, 2016 Active Azithromycin 250 MG Orally Once a day 1 tab 24h Mar, 30 days Active Dicyclomine HCl 20 MG Orally three times a day 1 tablet 8h July, 30 day(s) Active Dapsone 100 MG Orally Once a day 1 tablet 24h Apr, 30 days Active Tramadol HCl 50 MG Orally every 6 hrs 2 tablet as needed 6h Sep, Oct, 15 days Active Marinol 10 MG Orally Twice a day 1 capsule before lunch and supper 12h Jun, 30 days Active Promethazine HCl 25 MG Orally three times a day 1 tablet as needed 8h Mar, 30 day(s) Active Hydrochlorothiazide 25 MG Orally Once a day 1 tablet in the morning 24h July, 30 day(s) Active Zithromax Z-Riky 250 MG Orally Once a day 2 tablets on the first day, then 1 tablet daily for 4 days 24h Oct, Oct, 5 day(s) Active RESULTS No Results PROCEDURES No Known procedures IMMUNIZATIONS No Known Immunizations
--- OUTSIDE RECORDS SUMMARY | 2017-08-18 15:00 | XMS REPORT ---
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 98754755 ALLERGIES No Information SOCIAL HISTORY Never Assessed PLAN OF CARE VITAL SIGNS MEDICATIONS Unknown Medications RESULTS Name Result Date Reference Range URINE DRUG SCREEN (IN HOUSE) 2016-08-19 Lot # [id number] Exp date 04/2018 Control + COCAINE Negative AMPH POSITIVE MTD Negative THC POSITIVE OPIATE POSITIVE BENZO Negative PCP Negative BAR Negative OXY POSITIVE MAMP Negative TCA N/A BUP Negative MDMA Negative PROCEDURES Procedure Date Ordered Result Body Site DRUG TEST PRSMV DIR OPT OBS August 19, 2016 IMMUNIZATIONS No Known Immunizations MEDICAL (GENERAL) HISTORY Type Description Date Medical History HIV Medical History anxiety Surgical History gallbladder Surgical History tubal ligation
--- OUTSIDE RECORDS SUMMARY | 2017-08-18 15:00 | XMS REPORT ---
Author Dulce Olvera [employer] Address [address] [place], [place] [id number] Care Team Providers Care Deicer Inspector Electric Name Role Phone Dulce Olvera Unavailable PROBLEMS Type Condition ICD9-CM Code QSS13-WP Code Onset Dates Condition Status SNOMED Code Problem GERD (gastroesophageal reflux disease) K21.9 Active 234603430 Problem Backache M54.9 Active 981367799 Problem Intrinsic asthma J45.909 Active 515009329 Problem Mixed hyperlipidemia E78.2 Active 115755288 Problem Migraine G43.909 Active 37967631 Problem Generalized anxiety disorder F41.1 Active 38606620 Problem Mood swings F39 Active 02648872 Problem Wheezing on auscultation R06.2 Active 536968268 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 Active 139696038 Problem Bipolar affective disorder F31.9 Active 08761967 Problem Acquired immune deficiency syndrome B20 Active 35356308 Problem Nicotine dependence, cigarettes, uncomplicated F17.210 Active 13758326 ALLERGIES No Information ENCOUNTERS Encounter Location Date Diagnosis [address] [address] Apr, Acute URI J06.[address] [address] Apr, [address] [address] Apr, [facility] [address] [place] [id number] Apr, Acquired immune deficiency syndrome B20 ; 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 ( 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) 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 analgesic Z79.891 and Migraine G43.[address] [address] Mar, Dysmenorrhea N94.[address] [address] Mar, [facility] [address] [place] [facility] [place] [address] Mar, Generalized anxiety disorder F41.1 and Generalized abdominal pain R10.84 [facility] [address] [place] [address] Mar, [facility] [address] [place] [address] Mar, Generalized abdominal pain R10.84 and Generalized anxiety disorder F41.1 [facility] [address] [place] [address] Feb, [facility] [address] [place] [address] Feb, Generalized abdominal pain R10.84 [facility] [address] [place] [address] Jan, Nausea and vomiting R11.2 [facility] [address] [place] [address] Jan, [facility] [address] [place] [address] Jan, [facility] [address] [place] [address] Jan, [facility] [address] [place] [address] Jan, [facility] [address] [place] [address] Jan, [facility] [address] [place] [address] Jan, Mood swings F39 [facility] [address] [place] [address] Jan, [facility] [address] [place] [address] Jan, [facility] [address] [place] [address] Jan, [facility] [address] [place] [address] Jan, Dysmenorrhea N94.6 [facility] [address] [place] [phone] Jan, Acquired immune deficiency syndrome B20 ; Generalized abdominal pain R10.84 and Refused influenza vaccine Z28.[address] [address] Jan, [address] [address] Dec, Generalized abdominal pain R10.[address] [address] Dec, Dysmenorrhea N94.[address] [address] Dec, Backache M54.[address] [address] Nov, Generalized abdominal pain R10.[address] [address] Nov, Generalized anxiety disorder F41.[address] [address] Nov, Dysmenorrhea N94.[address] [address] Oct, [address] [address] Oct, [address] [address] Oct, [address] [address] Oct, Generalized abdominal pain R10.84 [facility] [address] [place] [id number] Oct, Acquired immune deficiency syndrome B20 ; 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 Z79.891 ; Bipolar affective disorder F31.9 ; Generalized anxiety disorder F41.1 ; Backache M54.9 ; Mixed hyperlipidemia E78.2 ; Nicotine dependence, cigarettes, uncomplicated F17.210 and Wheezing on auscultation R06.2 [address] [place] [address] Oct, Oral candidiasis B37.0 [facility] [address] [place] [address] Oct, [facility] [address] [place] [address] Oct, Acute upper respiratory infection J06.9 [facility] [address] [place] [address] Oct, Acute upper respiratory infection J06.9 [facility] [address] [place] [address] Sep, Dysmenorrhea N94.6 [facility] [address] [place] [address] Sep, Generalized anxiety disorder F41.1 [facility] [address] [place] [address] Sep, Dysmenorrhea N94.6 [facility] [address] [place] [address] Sep, [facility] [address] [place] [address] Sep, Dysmenorrhea N94.6 [facility] [address] [place] [address] Aug, Acquired immune deficiency syndrome B20 [facility] [address] [place] [address] Aug, Generalized anxiety disorder F41.1 [facility] [address] [place] [address] Aug, [facility] [address] [place] [address] Aug, [facility] [address] [place] [address] Aug, [facility] [address] [place] [address] Aug, [facility] [address] [place] [address] Aug, [facility] [address] [place] [address] 08 Aug, 2016 [facility] [address] [place] [address] Aug, [address] [address] Aug, Acute opioid withdrawal F11.[address] [address] July, Upper respiratory infection J06.[address] [address] July, Backache M54.9 [facility] [address] [place] [id number] July, Acquired immune deficiency syndrome B20 ; [facility] 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 Z79.891 ; Hyperglycemia R73.9 ; Bipolar affective disorder F31.9 ; GERD (gastroesophageal reflux disease) K21.9 ; Backache M54.9 ; Generalized anxiety disorder F41.1 ; Mixed hyperlipidemia E78.2 ; Nicotine dependence, cigarettes, uncomplicated F17.210 and Localized edema R60.[address] [address] July, [address] [address] Jun, Backache M54.[address] [address] Jun, Chronic pain G89.[address] [address] May, Backache M54.[address] [address] May, Backache M54.[address] [address] Apr, Cough R05 [facility] [address] [place] [phone] 10 Apr, 2016 Acquired immune deficiency syndrome B20 ; Screening examination for sexually transmitted disease Z11.3 ; Dermatitis L30.9 and Migraine with aura and with status migrainosus, not intractable G43.101 [facility] [address] [place] [address] Apr, Backache M54.[address] [address] Mar, Intrinsic asthma J45.909 ; Nausea and vomiting R11.2 and AIDS B20 [address] [address] Mar, Backache M54.[address] [address] Feb, Chronic pain G89.[address] [address] Feb, Backache M54.[address] [address] Jan, [facility] eye, 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 [address] Jan, Asthma, intrinsic 493.[address] [address] Jan, [address] [address] Jan, [address] [address] Jan, Backache M54.[address] [address] Dec, Chronic pain G89.29 [facility] [address] [facility] [place] [id number] Dec, AIDS B20 ; Influenza vaccine needed Z23 ; Intrinsic asthma J45.909 ; Backache M54.9 ; Generalized anxiety disorder F41.1 ; Nicotine dependence, cigarettes, uncomplicated F17.210 and Mixed hyperlipidemia E78.[address] [address] Dec, [address] [address] Dec, Dysmenorrhea N94.6 [facility] [address] [place] [address] Dec, [facility] [address] [place] [address] 17 Dec, 2015 Depression with anxiety F41.8 and Backache M54.9 [facility] [address] [place] [address] Nov, [facility] [address] [place] [address] 19 Nov, 2015 Other chronic pain G89.29 [facility] [address] [place] [address] 18 Nov, 2015 Other chronic pain G89.29 [facility] [address] [place] [address] 18 Nov, 2015 [facility] [address] [place] [address] 14 Nov, 2015 Generalized anxiety disorder F41.1 [facility] [address] [place] [address] 06 Nov, 2015 [facility] [address] [place] [address] Nov, [facility] [address] [place] [address] Nov, Chronic pain G89.29 [facility] [address] [place] [address] Oct, [facility] [address] [place] [address] Oct, Other chronic pain G89.29 [facility] [address] [place] [address] Oct, [facility] [address] [place] [address] Oct, [facility] [address] [place] [address] Oct, Nausea and vomiting R11.2 [facility] [address] [place] [address] Oct, Chronic pain G89.29 [facility] [address] [place] [address] Sep, [facility] [address] [place] [address] Sep, Acute upper respiratory infection, unspecified J06.9 [facility] [address] [place] [address] Sep, Upper respiratory infection J06.9 [facility] [address] [place] [address] Sep, [facility] [address] [place] [address] Sep, [facility] [address] [place] [address] Sep, Other chronic pain G89.29 [facility] [address] [place] [id number] Sep, AIDS B20 ; [facility] (current) use of opiate analgesic Z79.891 ; Smoking F17.200 ; Mixed hyperlipidemia E78.2 ; Chronic pain G89.29 and Edema R60.9 [facility] [address] [place] [address] Sep, [facility] [address] [place] [address] Sep, [facility] [address] [place] [address] Aug, [facility] [address] [place] [address] Aug, Other chronic pain G89.29 [facility] [address] [place] [address] Aug, Generalized anxiety disorder F41.1 [facility] [address] [place] [address] July, Other chronic pain G89.29 [facility] [address] [place] [address] July, Other chronic pain G89.29 [facility] [address] [place] [address] July, [facility] [address] [place] [address] Jun, Generalized anxiety disorder F41.1 [facility] [address] [place] [address] Jun, [facility] [address] [place] [address] Jun, Other chronic pain G89.29 [facility] [address] [place] [address] Jun, Rash and other nonspecific skin eruption R21 [facility] [address] [place] [address] Jun, [facility] [address] [place] [address] Jun, [facility] [address] [place] [address] Jun, [facility] [address] [place] [address] Jun, [facility] [address] [place] [address] Jun, [facility] [address] [place] [address] Jun, [facility] [address] [place] [address] Jun, [facility] [address] [place] [address] Jun, Other chronic pain G89.29 [facility] [address] [place] [address] Jun, [facility] [address] [place] [address] Jun, [facility] [address] [place] [address] Jun, [facility] [address] [place] [address] Jun, [facility] [address] [place] [address] Jun, [facility] [address] [place] [address] Jun, [facility] [address] [place] [address] Jun, [facility] [address] [place] [address] Jun, [facility] [address] [place] [address] Jun, [facility] [address] [place] [address] Jun, Nausea and vomiting R11.2 [facility] [address] [place] [address] May, [facility] [address] [place] [address] May, Rash and other nonspecific skin eruption R21 [facility] [address] [place] [address] May, [facility] [address] [place] [address] May, [facility] [address] [place] [address] May, [facility] [address] [place] [address] May, [facility] [address] [place] [address] May, [facility] [address] [place] [phone] May, Acquired immune deficiency syndrome B20 ; Screening examination for sexually transmitted disease Z11.3 ; Depression with anxiety F41.8 ; Other chronic pain G89.29 and Dermatitis L30.9 [facility] [address] [place] [address] May, [facility] [address] [place] [address] 14 May, 2015 [facility] [address] [place] [address] 09 May, 2015 [facility] [address] [place] [address] May, Backache M54.9 [facility] [address] [place] [address] May, Rash and other nonspecific skin eruption R21 [facility] [address] [place] [address] Apr, [facility] [address] [place] [address] Apr, [facility] [address] [place] [address] Apr, Other chronic pain G89.29 [facility] [address] [place] [address] Apr, [facility] [address] [place] [address] Apr, [facility] [address] [place] [address] Apr, [facility] [address] [place] [address] Apr, [facility] [address] [place] [address] Apr, [facility] [address] [place] [address] Apr, [facility] [address] [place] [address] Apr, [facility] [address] [place] [address] Apr, [facility] [address] [place] [address] Apr, [facility] [address] [place] [address] Apr, [facility] [address] [place] [address] Apr, Other chronic pain G89.29 ; Generalized anxiety disorder F41.1 ; Nausea R11.0 and AIDS B20 [facility] [address] [place] [address] Apr, [facility] [address] [place] [address] Apr, Generalized anxiety disorder F41.1 [facility] [address] [place] [address] Apr, [facility] [address] [place] [address] Apr, Other chronic pain G89.29 [facility] [address] [place] [address] Mar, [facility] [address] [place] [phone] Mar, [facility] (current) use of opiate analgesic Z79.891 ; Bipolar affective disorder F31.9 ; Smoking F17.200 ; Generalized anxiety disorder F41.1 ; Influenza vaccine administered Z23 and AIDS B20 [facility] [address] [place] [address] Mar, Other chronic pain G89.29 [facility] [address] [place] [address] Mar, Generalized anxiety disorder F41.1 [facility] [address] [place] [address] Mar, [facility] [address] [place] [address] Mar, Asymptomatic HIV infection Z21 [facility] [address] [place] [address] Mar, Other chronic pain G89.29 [facility] [address] [place] [address] Feb, [facility] [address] [place] [address] Feb, [facility] [address] [place] [address] Feb, [facility] [address] [place] [address] Feb, [facility] [address] [place] [address] Feb, [facility] [address] Jan, Other chronic pain G89.29 and Nausea & vomiting R11.[address] [address] Jan, Other chronic pain G89.[address] [address] Dec, [address] [address] Dec, Other chronic pain G89.29 ; Asymptomatic HIV infection Z21 ; Intrinsic asthma J45.909 ; Bipolar affective disorder F31.9 ; Noncompliance Z91.19 ; Migraine G43.909 ; Tobacco use disorder Z72.0 ; GERD (gastroesophageal reflux disease) K21.9 ; Backache M54.9 and Generalized anxiety disorder F41.[address] [address] Nov, [address] [address] Nov, [address] [address] Oct, Other chronic pain 338.[address] [address] Oct, [address] [address] Oct, Unspecified backache 724.5 and Dysphagia 787.[address] [address] Sep, Other chronic pain 338.[address] [address] Sep, [address] [address] Aug, URI (upper respiratory infection) 465.9 and Diarrhea 787.[address] [address] Aug, [address] [address] Aug, Other chronic pain 338.[address] [address] Aug, Other chronic pain 338.29 and Generalized anxiety disorder 300.[address] [address] Aug, [address] [address] July, Other chronic pain 338.29 [facility] [address] [facility] [place] [id number] July, Nondependent tobacco use disorder 305.1 ; Unspecified backache 724.5 ; Other chronic pain 338.29 ; Abdominal pain, unspecified site 789.00 ; [facility] (current) use of opiate analgesic V58.69 and Acquired immune deficiency syndrome [address] [address] July, Other chronic pain 338.[address] [address] Jun, Other chronic pain 338.[address] [address] Jun, [address] [address] Jun, Other chronic pain 338.[address] [address] Jun, URI (upper respiratory infection) 465.[address] [address] Jun, Generalized anxiety disorder 300.02 and Seasonal allergies 477.[address] [address] Jun, Generalized anxiety disorder 300.[address] [address] May, Other chronic pain 338.[address] [address] May, Other chronic pain 338.29 and Generalized anxiety disorder 300.02 [facility] [address] [place] [address] 16 Apr, 2014 Asthma, intrinsic 493.10 and Acute upper respiratory infections of other multiple sites 465.8 [facility] [address] [place] [address] Apr, [facility] [address] [facility] [address] [place], [place] [id number] Apr, Depressive disorder 311 [facility] [address] [place] [address] Apr, Other chronic pain 338.[address] [address] Apr, [facility] [address] [place] [address] Apr, Other chronic pain 338.[address] [address] Mar, Acute upper respiratory infections of unspecified site 465.9 [facility] [address] [place] [phone] Mar, Migraine 346.90 ; Nondependent tobacco use disorder 305.1 ; Esophageal reflux 530.81 ; Unspecified backache 724.5 ; Abdominal pain, generalized 789.07 ; Flatulence, eructation, and gas pain 787.3 ; Asymptomatic human immunodeficiency virus (HIV) infection status V08 ; Dyspepsia and other specified disorders of function of stomach 536.8 ; Nausea alone 787.02 and Asthma 493.90 [facility] [address] [place] [address] Mar, Other chronic pain 338.[address] [address] Feb, Other chronic pain 338.29 and Generalized anxiety disorder 300.[address] [address] Feb, Abdominal pain, generalized 789.[address] [address] Jan, Abdominal pain, generalized 789.07 [facility] [address] [place] [id number] Dec, [facility] [address] [place] [address] Dec, [facility] [address] [place] [address] Dec, Unspecified backache 724.5 [facility] [address] [place] [address] Dec, [facility] [address] [place] [address] Nov, [facility] [address] [facility] [address] [place] [phone] Nov, [facility] [address] [place] [id number] Nov, Bipolar disorder, unspecified 296.80 ; Abdominal pain, generalized 789.07 ; Generalized anxiety disorder 300.02 ; Nausea alone 787.02 ; Flu vaccine need V04.81 and Human immunodeficiency virus (HIV) disease 042 [facility] [address] [place] [address] Nov, [facility] [address] [place] [id number] Oct, [facility] [address] [facility] [address] [place] [id number] Oct, [facility] [address] [facility] [address] [place] [phone] Aug, [facility] [address] [place] [address] Jun, [facility] [address] [place] [address] Mar, [facility] [address] [place] [address] Oct, [facility] [address] [place] [address] July, [facility] [address] [place] [address] Jun, [facility] [address] [place] [facility] [address] 08 May, 2012 [facility] [address] [place] [facility] [address] Mar, [facility] [address] [place] [facility] [address] Feb, [facility] [address] [place] [facility] [address] Nov, [facility] [address] [place] [facility] [address] Oct, [facility] [address] [place] [facility] [address] Aug, [facility] [address] [place] [facility] [address] May, [facility] [address] [place] [facility] [place] [address] Mar, IMMUNIZATIONS No Known Immunizations SOCIAL HISTORY Never Assessed REASON FOR VISIT Fever PLAN OF CARE VITAL SIGNS MEDICATIONS Medication Instructions Dosage Frequency Start Date End Date Duration Status Ventolin HFA 108 (90 Base) MCG/ACT Inhalation every 4 hrs 2 puffs as needed 4h 11 Oct, 2016 30 days Active Dicyclomine HCl 20 MG [...] as needed 6h Oct, 30 days Active Hydrochlorothiazide 25 MG [...] as needed 6h Sep, 15 days Active Zofran 8 mg TAKE ONE TABLET BY MOUTH EVERY 8 HOURS FOR 10 DAYS 10 Active Xanax 1 MG Orally Twice a day 1 tablet as needed 12h Sep, 30 days Active Clonidine HCl 0.1 MG Orally every 4 hrs 1 tablet as needed do not take is BP is <100/60 4h 08 Aug, 2016 Active Zithromax Z-Riky 250 MG Orally Once a day 2 tablets on the first day, then 1 tablet daily for 4 days 24h 14 Apr, 2017 5 day(s) Active Ciprofloxacin HCl 0.3 % Ophthalmic every 4 hrs 1 drop into affected ear while awake 4h 5 day(s) Active Diflucan 150 Orally Once a day 1 tablet 24h 5 Active [facility] Omeprazole 20 MG Orally Once a day 1 tablet 24h Mar, 30 day (s) Active Azithromycin 250 MG Orally Once a day 1 tab 24h Mar, 30 days Active Stribild 168-972-830-300 MG Orally Once a day 1 tablet 24h Aug, 30 days Active Methocarbamol 750 TAKE ONE [...]
--- OUTSIDE RECORDS SUMMARY | 2017-08-18 15:00 | XMS REPORT ---
Author Author Zandra Watson [facility] Address [address] [place], [place] [id number] Care Team Providers Care Solar Energy Installation Manager Name Role Phone Zandra Watson Unavailable PROBLEMS Type Condition ICD9-CM Code [id number] Code Onset Dates Condition Status SNOMED Code Problem Bipolar affective disorder F31.9 Active 62218365 Problem snf (current) use of opiate analgesic Z79.891 Active 011141396 Problem Intrinsic asthma J45.909 Active 312199298 Problem Acquired immune deficiency syndrome B20 Active 82995086 Problem Hyperglycemia R73.9 Active 96011748 Problem Dysmenorrhea N94.6 Active 690944197 Problem Nicotine dependence, cigarettes, uncomplicated F17.210 Active 48573246 Problem Localized edema R60.0 Active 470199253 Problem Dermatitis L30.9 Active 43760061 Problem Generalized anxiety disorder F41.1 Active 11088028 Problem Backache M54.9 Active 161020628 Problem GERD (gastroesophageal reflux disease) K21.9 Active 057541602 Problem Mixed hyperlipidemia E78.2 Active 386467851 Problem Migraine G43.909 Active 34251772 ALLERGIES Unknown Allergies SOCIAL HISTORY No smoking Hx information available PLAN OF CARE VITAL SIGNS MEDICATIONS Medication Instructions Dosage Frequency Start Date End Date Duration Status Tramadol HCl 50 MG Orally every 6 hrs 2 tablet as needed 6h Sep, Oct, 15 days Active RESULTS No Results PROCEDURES No Known procedures IMMUNIZATIONS No Known Immunizations
--- OUTSIDE RECORDS SUMMARY | 2017-08-18 15:01 | XMS REPORT ---
Author Author Salome Solis [facility] Address [address] [place], [place] [id number] Care Team Providers Care Service Center Supervisor Name Role Phone Salome Solis Unavailable PROBLEMS Type Condition ICD9-CM Code [id number] Code Onset Dates Condition Status SNOMED Code Problem Generalized anxiety disorder F41.1 Active 70703738 Problem Intrinsic asthma J45.909 Active 496940340 Problem GERD (gastroesophageal reflux disease) K21.9 Active 377468362 Problem Mixed hyperlipidemia E78.2 Active 582878609 Problem Migraine G43.909 Active 19316464 Problem Wheezing on auscultation R06.2 Active 102971109 Problem Acquired immune deficiency syndrome B20 Active 95430254 Problem Bipolar affective disorder F31.9 Active 13661478 Problem Backache M54.9 Active 244665632 Problem Nicotine dependence, cigarettes, uncomplicated F17.210 Active 82363381 Problem 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
--- OUTSIDE RECORDS SUMMARY | 2017-08-18 15:02 | XMS REPORT ---
Author Author Zandra Watson [facility] Address [address] [place], [place] [id number] Care Team Providers Care Turning And Beading Machine Operator Name Role Phone Zandra Watson Unavailable PROBLEMS Type Condition ICD9-CM Code VAZ20-JO Code Onset Dates Condition Status SNOMED Code Problem Bipolar affective disorder F31.9 Active 20441736 Problem long-term (current) use of opiate analgesic Z79.891 Active 290040654 Problem Intrinsic asthma J45.909 Active 232796238 Problem Acquired immune deficiency syndrome B20 Active 85295790 Problem Hyperglycemia R73.9 Active 18801617 Problem Dysmenorrhea N94.6 Active 848121270 Problem Nicotine dependence, cigarettes, uncomplicated F17.210 Active 97783167 Problem Localized edema R60.0 Active 442783640 Problem Dermatitis L30.9 Active 84667578 Problem Generalized anxiety disorder F41.1 Active 57818730 Problem Backache M54.9 Active 360522483 Problem GERD (gastroesophageal reflux disease) K21.9 Active 667165386 Problem Mixed hyperlipidemia E78.2 Active 978507844 Problem Migraine G43.909 Active 78016872 ALLERGIES Unknown Allergies SOCIAL HISTORY No smoking Hx information available PLAN OF CARE VITAL SIGNS MEDICATIONS Medication Instructions Dosage Frequency Start Date End Date Duration Status Tramadol HCl 50 MG Orally every 6 hrs 2 tablet as needed 6h Sep, Sep, 15 days Active RESULTS No Results PROCEDURES No Known procedures IMMUNIZATIONS No Known Immunizations
--- OUTSIDE RECORDS SUMMARY | 2017-08-18 15:02 | XMS REPORT ---
Author Author Zandra Watson [facility] Address [address] [place], [place] [id number] Care Team Providers Care Measurement And Verification Engineer Name Role Phone Zandra Watson Unavailable PROBLEMS Type Condition ICD9-CM Code RYK44-GG Code Onset Dates Condition Status SNOMED Code Problem Bipolar affective disorder F31.9 Active 29204354 Problem skilled nursing (current) use of opiate analgesic Z79.891 Active 253301404 Problem Intrinsic asthma J45.909 Active 625920011 Problem Acquired immune deficiency syndrome B20 Active 00237914 Problem Hyperglycemia R73.9 Active 27232741 Problem Dysmenorrhea N94.6 Active 583719516 Problem Nicotine dependence, cigarettes, uncomplicated F17.210 Active 41694279 Problem Localized edema R60.0 Active 967921061 Problem Dermatitis L30.9 Active 58975836 Problem Generalized anxiety disorder F41.1 Active 48889547 Problem Backache M54.9 Active 461275657 Problem GERD (gastroesophageal reflux disease) K21.9 Active 740275632 Problem Mixed hyperlipidemia E78.2 Active 456758828 Problem Migraine G43.909 Active 14893494 ALLERGIES Unknown Allergies SOCIAL HISTORY No smoking Hx information available PLAN OF CARE VITAL SIGNS MEDICATIONS Medication Instructions Dosage Frequency Start Date End Date Duration Status Xanax 1 MG Orally Twice a day 1 tablet as needed 12h Sep, Sep, 30 days Active RESULTS No Results PROCEDURES No Known procedures IMMUNIZATIONS No Known Immunizations
--- OUTSIDE RECORDS SUMMARY | 2017-08-18 15:03 | XMS REPORT ---
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 43195052 ALLERGIES No Information SOCIAL HISTORY Never Assessed PLAN OF CARE VITAL SIGNS MEDICATIONS Unknown Medications RESULTS Name Result Date Reference Range URINE DRUG SCREEN (IN HOUSE) 2016-08-12 Lot # [id number] Exp date 04/2018 Control + COCAINE Negative AMPH Negative MTD Negative THC Positive OPIATE Negative BENZO Negative PCP Negative BAR Negative OXY Negative MAMP Negative TCA N/A BUP Negative MDMA Negative PROCEDURES Procedure Date Ordered Result Body Site DRUG TEST PRSMV DIR OPT OBS August 12, 2016 IMMUNIZATIONS No Known Immunizations MEDICAL (GENERAL) HISTORY Type Description Date Medical History HIV Medical History anxiety Surgical History gallbladder Surgical History tubal ligation
--- OUTSIDE RECORDS SUMMARY | 2017-08-18 15:03 | XMS REPORT ---
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 Name Role Phone Dulce Olvera Unavailable PROBLEMS Type Condition ICD9-CM Code FTS01-FM Code Onset Dates Condition Status SNOMED Code Problem Bipolar affective disorder F31.9 Active 75781793 Problem Nicotine dependence, cigarettes, uncomplicated F17.210 Active 81898845 Problem jail (current) use of opiate analgesic Z79.891 Active 990075884 Problem Non-intractable cyclical vomiting with nausea G43.A0 Active 66898732 Problem Poor appetite R63.0 Active 29959488 Problem Wheezing on auscultation R06.2 Active 710438051 Problem Acquired immune deficiency syndrome B20 Active 50115131 Problem Other chronic pain G89.29 Active 47501982 Problem Mood swings F39 Active 87121137 Problem Generalized anxiety disorder F41.1 Active 33993804 Problem GERD (gastroesophageal reflux disease) K21.9 Active 964823353 Problem Mixed hyperlipidemia E78.2 Active 384576035 Problem Intrinsic asthma J45.909 Active 683154234 Problem Migraine G43.909 Active 43302031 Problem Backache M54.9 Active [id number] ALLERGIES No Information ENCOUNTERS Encounter Location Date Diagnosis [facility] [address] [facility] [address] [place] [id number] Sep, [facility] [address] [place] [address] Jun, [facility] [address] [place] [address] Jun, [facility] [address] [place] [address] Jun, Other chronic pain G89.29 [facility] [address] [place] [address] Jun, [facility] [address] [place] [address] Jun, [facility] [address] [place] [address] Jun, [facility] [address] [place] [address] Jun, [facility] [address] [place] [address] Jun, [facility] [address] [place] [address] Jun, Generalized anxiety disorder F41.1 ; Other chronic pain G89.29 and Non-intractable cyclical vomiting with nausea G43.A0 [facility] [address] [place], [place] [id number] Jun, Acquired immune deficiency syndrome B20 ; 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 ; Nicotine dependence, cigarettes, uncomplicated F17.210 ; Lower respiratory infection J22 ; Poor appetite R63.0 ; Other chronic pain G89.29 ; Generalized anxiety disorder F41.1 and Need for tetanus booster Z23 [facility] [address] [place] [address] Jun, [address] [address] May, Generalized abdominal pain R10.84 [facility] [address] [place] [address] May, [address] [address] Apr, AIDS B20 ; Generalized abdominal pain R10.84 and Dysmenorrhea N94.6 [facility] [address] [place] [address] Apr, Acute URI J06.[address] [address] Apr, [facility] [address] [place] [address] Apr, [facility] [address] [place] [id number] Apr, Acquired immune deficiency syndrome B20 ; jail ( current) use of opiate analgesic Z79.891 and Migraine G43.909 [facility] [address] [place] [address] Mar, Dysmenorrhea N94.6 [facility] [address] [place] [address] Mar, [facility] [address] [place] [address] Mar, Generalized anxiety disorder F41.1 and Generalized abdominal pain R10.84 [facility] [address] [place] [address] Mar, [facility] [address] [place] [address] Mar, Generalized abdominal pain R10.84 and Generalized anxiety disorder F41.1 [facility] [address] [place] [address] Feb, [facility] [address] [place] [address] Feb, Generalized abdominal pain R10.84 [facility] [address] [place] [address] Jan, Nausea and vomiting R11.2 [facility] [address] [place] [address] Jan, [facility] [address] [place] [address] Jan, [facility] [address] [place] [address] Jan, [facility] [address] [place] [address] Jan, [facility] [address] [place] [address] Jan, [facility] [address] [place] [address] Jan, Mood swings F39 [facility] [address] [place] [address] 08 Jan, 2017 [facility] [address] [place] [address] Jan, [facility] [address] [place] [address] Jan, [facility] [address] [place] [address] Jan, Dysmenorrhea N94.6 [facility] [address] [place] [phone] Jan, Acquired immune deficiency syndrome B20 ; Generalized abdominal pain R10.84 and Refused influenza vaccine Z28.21 [facility] [address] [place] [address] Jan, [facility] [address] [address] Dec, Generalized abdominal pain R10.84 [facility] [address] [place] [address] Dec, Dysmenorrhea N94.6 [facility] [address] [address] Dec, Backache M54.9 [facility] [address] [address] Nov, Generalized abdominal pain R10.84 [facility] [address] [address] Nov, Generalized anxiety disorder F41.1 [facility] [address] [address] Nov, Dysmenorrhea N94.6 [facility] [address] [place] [address] Oct, [facility] [address] [place] [address] Oct, [facility] [address] [place] [address] Oct, [facility] [address] [place] [address] Oct, Generalized abdominal pain R10.84 [facility] [address] [facility] [facility] [address] [place] [id number] Oct, Acquired immune deficiency syndrome B20 ; 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 ; Bipolar affective disorder F31.9 ; Generalized anxiety disorder F41.1 ; Backache M54.9 ; Mixed hyperlipidemia E78.2 ; Nicotine dependence, cigarettes, uncomplicated F17.210 and Wheezing on auscultation R06.2 [facility] [address] [place] [address] Oct, Oral candidiasis B37.0 [facility] [address] [place] [address] Oct, [facility] [address] [place] [address] Oct, Acute upper respiratory infection J06.9 [facility] [address] [place] [address] Oct, Acute upper respiratory infection J06.9 [facility] [address] [place] [address] Sep, Dysmenorrhea N94.6 [facility] [address] [place] [address] Sep, Generalized anxiety disorder F41.1 [facility] [address] [place] [address] Sep, Dysmenorrhea N94.6 [facility] [address] [place] [address] Sep, [facility] [address] [place] [address] Sep, Dysmenorrhea N94.6 [facility] [address] [place] [address] Aug, Acquired immune deficiency syndrome B20 [facility] [address] [place] [address] Aug, Generalized anxiety disorder F41.1 [facility] [address] [place] [address] Aug, [facility] [address] [place] [address] Aug, [facility] [address] [place] [address] Aug, [facility] [address] [place] [address] Aug, [facility] [address] [place] [address] Aug, [facility] [address] [place] [address] Aug, [facility] [address] [place] [address] Aug, [facility] [address] [place] [address] Aug, Acute opioid withdrawal F11.[address] [address] July, Upper respiratory infection J06.[address] [address] July, Backache M54.9 [facility] [address] [place] [phone] July, Acquired immune deficiency syndrome B20 ; 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 ; Hyperglycemia R73.9 ; Bipolar affective disorder F31.9 ; GERD (gastroesophageal reflux disease) K21.9 ; Backache M54.9 ; Generalized anxiety disorder F41.1 ; Mixed hyperlipidemia E78.2 ; Nicotine dependence, cigarettes, uncomplicated F17.210 and Localized edema R60.[address] [address] July, [facility] [address] [place] [address] Jun, Backache M54.[address] [address] Jun, Chronic pain G89.[address] [address] May, Backache M54.[address] [address] May, Backache M54.[address] [address] Apr, Cough R05 [facility] [address] [id number] Apr, Acquired immune deficiency syndrome B20 ; Screening examination for sexually transmitted disease Z11.3 ; Dermatitis L30.9 and Migraine with aura and with status migrainosus, not intractable G43.[address] [address] Apr, Backache M54.[address] [address] Mar, Intrinsic asthma J45.909 ; Nausea and vomiting R11.2 and AIDS B20 [address] [address] Mar, Backache M54.[address] [address] Feb, Chronic pain G89.[address] [address] Feb, Backache M54.[address] [address] Jan, [place] [facility], 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 [address] Jan, Asthma, intrinsic 493.[address] [address] Jan, [address] [address] Jan, [address] [address] Jan, Backache M54.[address] [address] Dec, Chronic pain G89.29 [facility] [address] [place] [phone] Dec, AIDS B20 ; Influenza vaccine needed Z23 ; Intrinsic asthma J45.909 ; Backache M54.9 ; Generalized anxiety disorder F41.1 ; Nicotine dependence, cigarettes, uncomplicated F17.210 and Mixed hyperlipidemia E78.2 [facility] [address] [place] [address] Dec, [facility] [address] [place] [address] Dec, Dysmenorrhea N94.6 [facility] [address] [place] [address] Dec, [facility] [address] [place] [address] 17 Dec, 2015 Depression with anxiety F41.8 and Backache M54.9 [facility] [address] [place] [address] Nov, [facility] [address] [place] [address] 19 Nov, 2015 Other chronic pain G89.29 [facility] [address] [place] [address] 18 Nov, 2015 Other chronic pain G89.29 [facility] [address] [place] [address] 18 Nov, 2015 [facility] [address] [place] [address] 14 Nov, 2015 Generalized anxiety disorder F41.1 [facility] [address] [place] [address] 06 Nov, 2015 [facility] [address] [place] [address] Nov, [facility] [address] [place] [address] 04 Nov, 2015 Chronic pain G89.29 [facility] [address] [place] [address] Oct, [facility] [address] [place] [address] Oct, Other chronic pain G89.29 [facility] [address] [place] [address] Oct, [facility] [address] [place] [address] Oct, [facility] [address] [place] [address] Oct, Nausea and vomiting R11.2 [facility] [address] [place] [address] Oct, Chronic pain G89.29 [facility] [address] [place] [address] Sep, [facility] [address] [place] [address] Sep, Acute upper respiratory infection, unspecified J06.9 [facility] [address] [place] [address] Sep, Upper respiratory infection J06.9 [facility] [address] [place] [address] Sep, [facility] [address] [place] [address] Sep, [facility] [address] [place] [address] Sep, Other chronic pain G89.29 [facility] [address] [place] [id number] Sep, AIDS B20 ; jail (current) use of opiate analgesic Z79.891 ; Smoking F17.200 ; Mixed hyperlipidemia E78.2 ; Chronic pain G89.29 and Edema R60.9 [facility] [address] [place] [address] Sep, [facility] [address] [place] [address] Sep, [facility] [address] [place] [address] Aug, [facility] [address] [place] [address] Aug, Other chronic pain G89.29 [facility] [address] [place] [address] Aug, Generalized anxiety disorder F41.[address] [address] July, Other chronic pain G89.29 [facility] [address] [place] [facility] [place] [address] July, Other chronic pain G89.29 [facility] [address] [place] [facility] [place] [address] July, [facility] [address] [place] [facility] [place] [address] Jun, Generalized anxiety disorder F41.1 [facility] [address] [place] [facility] [place] [address] Jun, [facility] [address] [place] [facility] [place] [address] Jun, Other chronic pain G89.29 [facility] [address] [place] [facility] [place] [address] Jun, Rash and other nonspecific skin eruption R21 [facility] [address] [place] [facility] [place] [address] Jun, [facility] [address] [place] [facility] [place] [address] Jun, [facility] [address] [place] [facility] [place] [address] Jun, [facility] [address] [place] [facility] [place] [address] Jun, [facility] [address] [place] [facility] [place] [address] Jun, [facility] [address] [place] [facility] [place] [address] Jun, [facility] [address] [place] [facility] [place] [address] Jun, [facility] [address] [place] [facility] [place] [address] Jun, Other chronic pain G89.29 [facility] [address] [place] [facility] [place] [address] Jun, [facility] [address] [place] [facility] [place] [address] Jun, [facility] [address] [place] [facility] [place] [address] Jun, [facility] [address] [place] [facility] [place] [address] Jun, [facility] [address] [place] [facility] [place] [address] Jun, [facility] [address] [place] [facility] [place] [address] Jun, [facility] [address] [place] [facility] [place] [address] Jun, [facility] [address] [place] [facility] [place] [address] Jun, [facility] [address] [place] [facility] [place] [address] Jun, [facility] [address] [place] [facility] [place] [address] Jun, Nausea and vomiting R11.2 [facility] [address] [place] [address] May, [facility] [address] [place] [address] May, Rash and other nonspecific skin eruption R21 [facility] [address] [place] [address] May, [facility] [address] [place] [address] May, [facility] [address] [place] [address] May, [facility] [address] [place] [address] May, [facility] [address] [place] [address] May, [facility] [address] [place] [phone] May, Acquired immune deficiency syndrome B20 ; Screening examination for sexually transmitted disease Z11.3 ; Depression with anxiety F41.8 ; Other chronic pain G89.29 and Dermatitis L30.9 [facility] [address] [place] [address] May, [facility] [address] [place] [facility] [place] [address] May, [facility] [address] [place] [facility] [place] [address] May, [facility] [address] [place] [facility] [place] [address] May, Backache M54.9 [facility] [address] [place] [facility] [place] [address] May, Rash and other nonspecific skin eruption R21 [facility] [address] [place] [facility] [place] [address] Apr, [facility] [address] [place] [facility] [place] [address] Apr, [facility] [address] [place] [facility] [place] [address] Apr, Other chronic pain G89.29 [facility] [address] [place] [facility] [place] [address] Apr, [facility] [address] [place] [facility] [place] [address] Apr, [facility] [address] [place] [facility] [place] [address] Apr, [facility] [address] [place] [facility] [place] [address] Apr, [facility] [address] [place] [address] Apr, [facility] [address] [place] [facility] [place] [address] Apr, [facility] [address] [place] [facility] [place] [address] Apr, [facility] [address] [place] [facility] [place] [address] Apr, [facility] [address] [place] [facility] [place] [address] Apr, [facility] [address] [place] [address] Apr, [facility] [address] [place] [address] Apr, Other chronic pain G89.29 ; Generalized anxiety disorder F41.1 ; Nausea R11.0 and AIDS B20 [facility] [address] [place] [address] Apr, [facility] [address] [place] [address] Apr, Generalized anxiety disorder F41.1 [facility] [address] [place] [address] Apr, [facility] [address] [place] [address] Apr, Other chronic pain G89.[address] [address] Mar, [facility] [address] [place] [id number] Mar, jail (current) use of opiate analgesic Z79.891 ; Bipolar affective disorder F31.9 ; Smoking F17.200 ; Generalized anxiety disorder F41.1 ; Influenza vaccine administered Z23 and AIDS B20 [address] [address] Mar, Other chronic pain G89.[address] [address] Mar, Generalized anxiety disorder F41.[address] [address] Mar, [facility] [address] [place] [address] Mar, Asymptomatic HIV infection Z21 [address] [address] Mar, Other chronic pain G89.[address] [address] Feb, [address] [address] Feb, [address] [address] Feb, [facility] [address] [place] [address] Feb, [facility] [address] [place] [address] Feb, [facility] [address] [place] [address] Jan, Other chronic pain G89.29 and Nausea & vomiting R11.2 [facility] [address] [place] [address] Jan, Other chronic pain G89.29 [facility] [address] [place] [address] Dec, [facility] [address] [place] [address] Dec, Other chronic pain G89.29 ; Asymptomatic HIV infection Z21 ; Intrinsic asthma J45.909 ; Bipolar affective disorder F31.9 ; Noncompliance Z91.19 ; Migraine G43.909 ; Tobacco use disorder Z72.0 ; GERD (gastroesophageal reflux disease) K21.9 ; Backache M54.9 and Generalized anxiety disorder F41.1 [facility] [address] [place] [address] Nov, [facility] [address] [place] [address] Nov, [address] [address] Oct, Other chronic pain 338.29 [facility] [address] [place] [address] Oct, [facility] [address] [place] [address] Oct, Unspecified backache 724.5 and Dysphagia 787.20 [facility] [address] [place] [address] Sep, Other chronic pain 338.[address] [address] Sep, [address] [place] [address] 30 Aug, 2014 URI (upper respiratory infection) 465.9 and Diarrhea 787.[address] [address] Aug, [address] [address] Aug, Other chronic pain 338.[address] [address] Aug, Other chronic pain 338.29 and Generalized anxiety disorder 300.[address] [address] Aug, [address] [address] July, Other chronic pain 338.29 [facility] [address] [place] [id number] July, Nondependent tobacco use disorder 305.1 ; Unspecified backache 724.5 ; Other chronic pain 338.29 ; Abdominal pain, unspecified site 789.00 ; jail (current) use of opiate analgesic V58.69 and Acquired immune deficiency syndrome [address] [address] July, Other chronic pain 338.[address] [address] Jun, Other chronic pain 338.[address] [address] Jun, [address] [address] Jun, Other chronic pain 338.[address] [address] Jun, URI (upper respiratory infection) 465.[address] [address] Jun, Generalized anxiety disorder 300.02 and Seasonal allergies 477.[address] [address] Jun, Generalized anxiety disorder 300.02 [facility] [address] [place] [address] May, Other chronic pain 338.[address] [address] May, Other chronic pain 338.29 and Generalized anxiety disorder 300.02 [facility] [address] [place] [address] Apr, Asthma, intrinsic 493.10 and Acute upper respiratory infections of other multiple sites 465.8 [facility] [address] [place] [address] Apr, [facility] [address] [facility] [address] [place] [id number] Apr, Depressive disorder 311 [facility] [address] [place] [address] Apr, Other chronic pain 338.[address] [address] Apr, [facility] [address] [place] [address] Apr, Other chronic pain 338.[address] [address] Mar, Acute upper respiratory infections of unspecified site 465.9 [facility] [address] [place] [id number] Mar, Migraine 346.90 ; Nondependent tobacco use disorder 305.1 ; Esophageal reflux 530.81 ; Unspecified backache 724.5 ; Abdominal pain, generalized 789.07 ; Flatulence, eructation, and gas pain 787.3 ; Asymptomatic human immunodeficiency virus (HIV) infection status V08 ; Dyspepsia and other specified disorders of function of stomach 536.8 ; Nausea alone 787.02 and Asthma 493.[address] [address] Mar, Other chronic pain 338.[address] [address] Feb, Other chronic pain 338.29 and Generalized anxiety disorder 300.02 [facility] [address] [place] [address] Feb, Abdominal pain, generalized 789.07 [facility] [address] [place] [address] Jan, Abdominal pain, generalized 789.07 [facility] [address] [place] [id number] Dec, [facility] [address] [place] [address] Dec, [facility] [address] [place] [address] Dec, Unspecified backache 724.5 [facility] [address] [place] [address] Dec, [facility] [address] [place] [id number] Nov, [facility] [address] [id number] Nov, [facility] [address] [place], [place] [id number] Nov, Bipolar disorder, unspecified 296.80 ; Abdominal pain, generalized 789.07 ; Generalized anxiety disorder 300.02 ; Nausea alone 787.02 ; Flu vaccine need V04.81 and Human immunodeficiency virus (HIV) disease 042 [facility] [address] [place] [address] Nov, [facility] [address] [place], [place] [id number] Oct, [facility] [address] [facility] [address] [place], [place] [id number] Oct, [facility] [address] [id number] Aug, [facility] [address] [place] [address] Jun, [facility] [address] [place] [id number] Mar, [facility] [address] [place] [phone] Oct, [facility] [address] [place] [facility] [place] [address] July, [facility] [address] [place] [facility] [place] [facility] [address] Jun, [facility] [address] [place] [facility] [place] [facility] [address] May, [facility] [address] [place] [facility] [place] [address] Mar, [facility] [address] [place] [facility] [place] [facility] [address] Feb, [facility] [address] [place] [facility] [place] [facility] [address] Nov, [facility] [address] [place] [facility] [place] [facility] [address] Oct, [facility] [address] [place] [facility] [place] [address] Aug, [facility] [address] [place] [facility] [place] [facility] [address] May, [facility] [address] [place] [facility] [place] [address] Mar, IMMUNIZATIONS No Known Immunizations SOCIAL HISTORY Never Assessed REASON FOR VISIT Re: RE:Re: RE:Re: RE:RE:RE:Fatigue PLAN OF CARE VITAL [...]
[2017-08-18 15:04] LABS: BASOPHILS % (AUTO) 1 % (0-10); EOSINOPHILS # (AUTO) 0.1 10^3/uL (0.0-0.3); EOSINOPHILS % (AUTO) 5 % (0-10); HEMATOCRIT 37 % (35-52); HEMOGLOBIN 12.1 G/DL (11.5-16.0); LYMPHOCYTES # (AUTO) 1.2 X 10^3 (1.0-4.0); LYMPHOCYTES % (AUTO) 44 % (12-44); MEAN CORPUSCULAR HEMOGLOBIN 30 PG (25-34); MEAN CORPUSCULAR HGB CONC 33 G/DL (32-36); MEAN CORPUSCULAR VOLUME 91 FL (80-99); MEAN PLATELET VOLUME 12.1 FL (7.4-10.4); MONOCYTES # (AUTO) 0.4 X 10^3 (0.0-1.0); MONOCYTES % (AUTO) 14 % (0-12); NEUTROPHILS % (AUTO) 37 % (42-75); PLATELET COUNT 168 10^3/uL (130-400); RED BLOOD COUNT 4.06 10^6/uL (4.35-5.85); RED CELL DISTRIBUTION WIDTH 15.4 % (10.0-14.5); WHITE BLOOD COUNT 2.8 10^3/uL (4.3-11.0)
--- OUTSIDE RECORDS SUMMARY | 2017-08-18 15:04 | XMS REPORT ---
Author Dulce Olvera [facility] Address [address] [place], [place] [id number] Care Team Providers Care Acls Specialist Name Role Phone Dulce Olvera Unavailable PROBLEMS Type Condition ICD9-CM Code VAL56-CT Code Onset Dates Condition Status SNOMED Code Problem Bipolar affective disorder F31.9 Active 46060986 Problem Nicotine dependence, cigarettes, uncomplicated F17.210 Active 99463397 Problem prison (current) use of opiate analgesic Z79.891 Active 550600527 Problem Non-intractable cyclical vomiting with nausea G43.A0 Active 19392373 Problem Poor appetite R63.0 Active 61764135 Problem Wheezing on auscultation R06.2 Active 061981810 Problem Acquired immune deficiency syndrome B20 Active 94636859 Problem Other chronic pain G89.29 Active 94754208 Problem Mood swings F39 Active 83644110 Problem Generalized anxiety disorder F41.1 Active 74817813 Problem GERD (gastroesophageal reflux disease) K21.9 Active 764517571 Problem Mixed hyperlipidemia E78.2 Active 599618509 Problem Intrinsic asthma J45.909 Active 612667100 Problem Migraine G43.909 Active 47391739 Problem Backache M54.9 Active 303480109 ALLERGIES No Information ENCOUNTERS Encounter Location Date Diagnosis [facility] [address] [place] [id number] Sep, [facility] [address] [place] [address] July, [facility] [address] [place] [address] July, [facility] [address] [place] [address] July, GERD (gastroesophageal reflux disease) K21.9 [facility] [address] [place] [address] July, [facility] [address] [place] [facility] [place] [address] Jun, [facility] [address] [place] [facility] [place] [address] Jun, [facility] [address] [place] [place] [address] Jun, [facility] [address] [place] [address] Jun, [facility] [address] [place] [address] Jun, Other chronic pain G89.29 [facility] [address] [place] [address] Jun, [facility] [address] [place] [address] Jun, [facility] [address] [place] [address] Jun, [facility] [address] [place] [address] Jun, [facility] [address] [place] [address] Jun, [facility] [address] [place] [address] Jun, Generalized anxiety disorder F41.1 ; Other chronic pain G89.29 and Non-intractable cyclical vomiting with nausea G43.A0 [facility] [address] [place] [id number] Jun, Acquired immune deficiency syndrome B20 ; 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 pharmacist ( current) use of opiate analgesic Z79.891 ; Nicotine dependence, cigarettes, uncomplicated F17.210 ; Lower respiratory infection J22 ; Poor appetite R63.0 ; Other chronic pain G89.29 ; Generalized anxiety disorder F41.1 and Need for tetanus booster Z23 [facility] [address] [place] [address] Jun, [facility] [address] [place] [address] May, Generalized abdominal pain R10.84 [facility] [address] [place] [place] [address] May, [facility] [address] [place] [address] Apr, AIDS B20 ; Generalized abdominal pain R10.84 and Dysmenorrhea N94.[address] [address] Apr, Acute URI J06.[address] [address] Apr, [address] [address] Apr, [facility] [address] [place] [id number] Apr, Acquired immune deficiency syndrome B20 ; 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 pharmacist ( current) use of opiate analgesic Z79.891 and Migraine G43.[address] [address] Mar, Dysmenorrhea N94.[address] [address] Mar, [address] [address] Mar, Generalized anxiety disorder F41.1 and Generalized abdominal pain R10.[address] [address] Mar, [address] [address] Mar, Generalized abdominal pain R10.84 and Generalized anxiety disorder F41.[address] [address] Feb, [address] [address] Feb, Generalized abdominal pain R10.[address] [address] Jan, Nausea and vomiting R11.[address] [address] Jan, [address] [place] [address] 16 Jan, 2017 [facility] [address] [place] [address] Jan, [facility] [address] [place] [address] Jan, [facility] [address] [place] [address] 14 Jan, 2017 [facility] [address] [place] [address] 08 Jan, 2017 Mood swings F39 [facility] [address] [place] [address] Jan, [facility] [address] [place] [address] Jan, [facility] [address] [place] [address] Jan, [facility] [address] [place] [address] Jan, Dysmenorrhea N94.6 [facility] [address] [place] [id number] Jan, Acquired immune deficiency syndrome B20 ; Generalized abdominal pain R10.84 and Refused influenza vaccine Z28.21 [facility] [address] [place] [address] Jan, [facility] [address] [place] [address] Dec, Generalized abdominal pain R10.84 [facility] [address] [place] [address] Dec, Dysmenorrhea N94.6 [facility] [address] [place] [address] Dec, Backache M54.9 [facility] [address] [place] [address] Nov, Generalized abdominal pain R10.84 [facility] [address] [place] [address] Nov, Generalized anxiety disorder F41.[address] [facility] [address] Nov, Dysmenorrhea N94.[address] [address] Oct, [address] [address] Oct, [address] [address] Oct, [address] [address] Oct, Generalized abdominal pain R10.84 [facility] [address] [place] [id number] Oct, Acquired immune deficiency syndrome B20 ; 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 pharmacist 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 Z79.891 ; Bipolar affective disorder F31.9 ; Generalized anxiety disorder F41.1 ; Backache M54.9 ; Mixed hyperlipidemia E78.2 ; Nicotine dependence, cigarettes, uncomplicated F17.210 and Wheezing on auscultation R06.[address] [address] Oct, Oral candidiasis B37.[address] [address] Oct, [address] [address] Oct, Acute upper respiratory infection J06.[address] [address] Oct, Acute upper respiratory infection J06.[address] [address] Sep, Dysmenorrhea N94.[address] [address] Sep, Generalized anxiety disorder F41.[address] [address] Sep, Dysmenorrhea N94.[address] [address] Sep, [facility] [address] [place] [place] [address] Sep, Dysmenorrhea N94.6 [facility] [address] [place] [place] [address] Aug, Acquired immune deficiency syndrome B20 [facility] [address] [place] [address] Aug, Generalized anxiety disorder F41.1 [facility] [address] [place] [address] Aug, [facility] [address] [place] [address] Aug, [facility] [address] [place] [place] [address] Aug, [facility] [address] [place] [address] Aug, [facility] [address] [place] [address] Aug, [facility] [address] [place] [place] [address] Aug, [facility] [address] [place] [address] Aug, [facility] [address] [place] [address] Aug, Acute opioid withdrawal F11.23 [facility] [address] [place] [address] July, Upper respiratory infection J06.9 [facility] [address] [place] [address] July, Backache M54.9 [facility] [address] [place] [id number] July, Acquired immune deficiency syndrome B20 ; prison 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 Z79.891 ; Hyperglycemia R73.9 ; Bipolar affective disorder F31.9 ; GERD (gastroesophageal reflux disease) K21.9 ; Backache M54.9 ; Generalized anxiety disorder F41.1 ; Mixed hyperlipidemia E78.2 ; Nicotine dependence, cigarettes, uncomplicated F17.210 and Localized edema R60.0 [facility] [address] [place] [address] July, [facility] [address] [place] [address] Jun, Backache M54.9 [facility] [address] [place] [address] Jun, Chronic pain G89.29 [facility] [address] [place] [address] May, Backache M54.9 [facility] [address] [place] [address] May, Backache M54.[address] [address] Apr, Cough R05 [facility] [address] [place] [id number] Apr, Acquired immune deficiency syndrome B20 ; Screening examination for sexually transmitted disease Z11.3 ; Dermatitis L30.9 and Migraine with aura and with status migrainosus, not intractable G43.[address] [address] Apr, Backache M54.[address] [address] Mar, Intrinsic asthma J45.909 ; Nausea and vomiting R11.2 and AIDS B20 [address] [address] Mar, Backache M54.[address] [address] Feb, Chronic pain G89.[address] [address] Feb, Backache M54.[address] [address] Jan, [place] [facility], 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 [address] Jan, Asthma, intrinsic 493.10 [facility] [address] [place] [address] Jan, [facility] [address] [place] [address] Jan, [facility] [address] [place] [address] 15 Jan, 2016 Backache M54.9 [facility] [address] [place] [address] 30 Dec, 2015 Chronic pain G89.29 [facility] [address] [place] [id number] Dec, AIDS B20 ; Influenza vaccine needed Z23 ; Intrinsic asthma J45.909 ; Backache M54.9 ; Generalized anxiety disorder F41.1 ; Nicotine dependence, cigarettes, uncomplicated F17.210 and Mixed hyperlipidemia E78.[address] [address] Dec, [address] [address] 19 Dec, 2015 Dysmenorrhea N94.[address] [address] 18 Dec, [address] [address] 17 Dec, 2015 Depression with anxiety F41.8 and Backache M54.[address] [address] 19 Nov, 2015 [facility] [address] [place] [address] 19 Nov, 2015 Other chronic pain G89.[address] [address] 18 Nov, 2015 Other chronic pain G89.[address] [address] 18 Nov, [address] [address] 14 Nov, 2015 Generalized anxiety disorder F41.[address] [address] Nov, [facility] [address] [place] [address] Nov, [facility] [address] [place] [address] Nov, Chronic pain G89.29 [facility] [address] [place] [address] Oct, [facility] [address] [place] [address] Oct, Other chronic pain G89.29 [facility] [address] [place] [address] Oct, [facility] [address] [place] [place] [address] Oct, [facility] [address] [place] [address] Oct, Nausea and vomiting R11.2 [facility] [address] [place] [address] Oct, Chronic pain G89.29 [facility] [address] [place] [address] Sep, [facility] [address] [place] [address] Sep, Acute upper respiratory infection, unspecified J06.9 [facility] [address] [place] [address] Sep, Upper respiratory infection J06.9 [facility] [address] [place] [address] Sep, [facility] [address] [place] [address] Sep, [facility] [address] [place] [address] Sep, Other chronic pain G89.29 [facility] [address] [facility] [address] [place] [id number] Sep, AIDS B20 ; prison (current) use of opiate analgesic Z79.891 ; Smoking F17.200 ; Mixed hyperlipidemia E78.2 ; Chronic pain G89.29 and Edema R60.9 [facility] [address] [place] [place] [address] Sep, [facility] [address] [place] [place] [address] Sep, [facility] [address] [place] [place] [address] Aug, [facility] [address] [place] [address] Aug, Other chronic pain G89.29 [facility] [address] [place] [place] [address] Aug, Generalized anxiety disorder F41.1 [facility] [address] [place] [address] July, Other chronic pain G89.29 [facility] [address] [place] [address] July, Other chronic pain G89.29 [facility] [address] [place] [address] July, [facility] [address] [place] [place] [address] Jun, Generalized anxiety disorder F41.1 [facility] [address] [place] [address] Jun, [facility] [address] [place] [address] Jun, Other chronic pain G89.29 [facility] [address] [place] [address] Jun, Rash and other nonspecific skin eruption R21 [facility] [address] [place] [address] Jun, [facility] [address] [place] [facility] [place] [address] Jun, [facility] [address] [place] [address] Jun, [facility] [address] [place] [address] Jun, [facility] [address] [place] [address] Jun, [facility] [address] [place] [address] Jun, [facility] [address] [place] [address] Jun, [facility] [address] [place] [address] Jun, Other chronic pain G89.29 [facility] [address] [place] [address] Jun, [facility] [address] [place] [address] Jun, [facility] [address] [place] [address] Jun, [facility] [address] [place] [address] Jun, [facility] [address] [place] [address] Jun, [facility] [address] [place] [address] Jun, [facility] [address] [place] [address] Jun, [facility] [address] [place] [address] Jun, [facility] [address] [place] [address] Jun, [facility] [address] [place] [address] Jun, Nausea and vomiting R11.2 [facility] [address] [place] [address] May, [facility] [address] [place] [address] May, Rash and other nonspecific skin eruption R21 [facility] [address] [place] [address] May, [facility] [address] [place] [address] May, [facility] [address] [place] [address] May, [facility] [address] [place] [address] May, [facility] [address] [place] [address] May, [facility] [address] [facility] [address] [place] [id number] May, Acquired immune deficiency syndrome B20 ; Screening examination for sexually transmitted disease Z11.3 ; Depression with anxiety F41.8 ; Other chronic pain G89.29 and Dermatitis L30.9 [facility] [address] [place] [address] May, [facility] [address] [place] [address] May, [facility] [address] [place] [address] May, [facility] [address] [place] [address] May, Backache M54.9 [facility] [address] [place] [address] May, Rash and other nonspecific skin eruption R21 [facility] [address] [place] [address] Apr, [facility] [address] [place] [address] Apr, [facility] [address] [place] [address] Apr, Other chronic pain G89.29 [facility] [address] [place] [address] Apr, [facility] [address] [place] [address] Apr, [facility] [address] [place] [address] Apr, [facility] [address] [place] [address] Apr, [facility] [address] [place] [address] Apr, [facility] [address] [place] [address] Apr, [facility] [address] [place] [address] Apr, [facility] [address] [place] [address] Apr, [facility] [address] [place] [address] Apr, [facility] [address] [place] [address] Apr, [facility] [address] [place] [address] Apr, Other chronic pain G89.29 ; Generalized anxiety disorder F41.1 ; Nausea R11.0 and AIDS B20 [facility] [address] [place] [address] Apr, [facility] [address] [place] [address] Apr, Generalized anxiety disorder F41.1 [facility] [address] [place] [address] Apr, [facility] [address] [place] [address] Apr, Other chronic pain G89.29 [facility] [address] [place] [address] Mar, [facility] [address] [place] [id number] Mar, prison (current) use of opiate analgesic Z79.891 ; Bipolar affective disorder F31.9 ; Smoking F17.200 ; Generalized anxiety disorder F41.1 ; Influenza vaccine administered Z23 and AIDS B20 [facility] [address] [place] [address] Mar, Other chronic pain G89.29 [facility] [address] [place] [address] Mar, Generalized anxiety disorder F41.1 [facility] [address] [place] [address] Mar, [facility] [address] [place] [address] Mar, Asymptomatic HIV infection Z21 [facility] [address] [place] [address] Mar, Other chronic pain G89.29 [facility] [address] [place] [address] Feb, [facility] [address] [place] [address] Feb, [facility] [address] [place] [address] Feb, [facility] [address] [place] [address] Feb, [facility] [address] [place] [address] Feb, [facility] [address] [place] [address] Jan, Other chronic pain G89.29 and Nausea & vomiting R11.2 [facility] [address] [place] [address] Jan, Other chronic pain G89.29 [facility] [address] [place] [address] Dec, [facility] [address] [place] [address] Dec, Other chronic pain G89.29 ; Asymptomatic HIV infection Z21 ; Intrinsic asthma J45.909 ; Bipolar affective disorder F31.9 ; Noncompliance Z91.19 ; Migraine G43.909 ; Tobacco use disorder Z72.0 ; GERD (gastroesophageal reflux disease) K21.9 ; Backache M54.9 and Generalized anxiety disorder F41.1 [facility] [address] [place] [address] Nov, [facility] [address] [place] [address] Nov, [facility] [address] [place] [address] Oct, Other chronic pain 338.[address] [address] Oct, [facility] [address] [place] [address] Oct, Unspecified backache 724.5 and Dysphagia 787.[address] [address] Sep, Other chronic pain 338.[address] [address] Sep, [address] [address] Aug, URI (upper respiratory infection) 465.9 and Diarrhea 787.[address] [address] Aug, [address] [address] Aug, Other chronic pain 338.[address] [address] Aug, Other chronic pain 338.29 and Generalized anxiety disorder 300.[address] [address] Aug, [address] [address] July, Other chronic pain 338.29 [facility] [address] [place] [id number] July, Nondependent tobacco use disorder 305.1 ; Unspecified backache 724.5 ; Other chronic pain 338.29 ; Abdominal pain, unspecified site 789.00 ; prison (current) use of opiate analgesic V58.69 and Acquired immune deficiency syndrome [address] [address] July, Other chronic pain 338.[address] [address] Jun, Other chronic pain 338.29 [facility] [address] [place] [address] Jun, [facility] [address] [place] [address] Jun, Other chronic pain 338.29 [facility] [address] [place] [address] Jun, URI (upper respiratory infection) 465.9 [facility] [address] [place] [address] Jun, Generalized anxiety disorder 300.02 and Seasonal allergies 477.[address] [address] Jun, Generalized anxiety disorder 300.02 [facility] [address] [place] [address] May, Other chronic pain 338.29 [facility] [address] [place] [address] May, Other chronic pain 338.29 and Generalized anxiety disorder 300.02 [facility] [address] [place] [address] Apr, Asthma, intrinsic 493.10 and Acute upper respiratory infections of other multiple sites 465.8 [facility] [address] [place] [address] Apr, [facility] [address] [facility] [address] [place] [id number] Apr, Depressive disorder 311 [facility] [address] [place] [address] Apr, Other chronic pain 338.29 [facility] [address] [place] [address] Apr, [facility] [address] [place] [address] Apr, Other chronic pain 338.29 [facility] [address] [place] [address] Mar, Acute upper respiratory infections of unspecified site 465.9 [facility] [address] [place] [id number] Mar, Migraine 346.90 ; Nondependent tobacco use disorder 305.1 ; Esophageal reflux 530.81 ; Unspecified backache 724.5 ; Abdominal pain, generalized 789.07 ; Flatulence, eructation, and gas pain 787.3 ; Asymptomatic human immunodeficiency virus (HIV) infection status V08 ; Dyspepsia and other specified disorders of function of stomach 536.8 ; Nausea alone 787.02 and Asthma 493.[address] [address] Mar, Other chronic pain 338.[address] [address] Feb, Other chronic pain 338.29 and Generalized anxiety disorder 300.[address] [address] Feb, Abdominal pain, generalized 789.[address] [address] Jan, Abdominal pain, generalized 789.07 [facility] [address] [place] [id number] Dec, [address] [address] Dec, [address] [address] Dec, Unspecified backache 724.[address] [address] Dec, [address] [address] Nov, [facility] [address] [facility] [address] [place] [id number] Nov, [facility] [address] [facility] [place] [id number] Nov, Bipolar disorder, unspecified 296.80 ; Abdominal pain, generalized 789.07 ; Generalized anxiety disorder 300.02 ; Nausea alone 787.02 ; Flu vaccine need V04.81 and Human immunodeficiency virus (HIV) disease [address] [place] [address] Nov, [facility] [place] [facility] [address] [facility] [address] [place], [place] [id number] Oct, [facility] [place] [facility] [address] [facility] [address] [place], [place] [id number] Oct, [facility] [place] [facility] [address] [facility] [address] [place], [place] [id number] Aug, [facility] [address] [place] [place] [address] Jun, [facility] [address] [place] [facility] [place] [address] Mar, [facility] [address] [place] [facility] [place] [address] Oct, [facility] [address] [place] [facility] [place] [address] July, [facility] [address] [place] [facility] [place] [address] Jun, [facility] [address] [place] [facility] [place] [address] May, [facility] [address] [place] [facility] [address] Mar, [facility] [address] [place] [facility] [place] [address] Feb, [facility] [address] [place] [facility] [place] [address] Nov, [facility] [address] [place] [facility] [place] [address] Oct, [facility] [address] [place] [place] [address] Aug, [facility] [address] [place] [facility] [address] May, [facility] [address] [place] [facility] [address] Mar, IMMUNIZATIONS No Known Immunizations SOCIAL HISTORY Never Assessed REASON FOR VISIT Re: RE:Re: RE:Re: RE:Re: RE:Re: RE:RE:RE:Fatigue PLAN OF CARE [...]
--- OUTSIDE RECORDS SUMMARY | 2017-08-18 15:05 | XMS REPORT ---
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 Phone Dulce Olvera Unavailable PROBLEMS Type Condition ICD9-CM Code SCS54-PW Code Onset Dates Condition Status SNOMED Code Problem Bipolar affective disorder F31.9 Active 25717273 Problem Nicotine dependence, cigarettes, uncomplicated F17.210 Active 68402917 Problem correction (current) use of opiate analgesic Z79.891 Active 400265413 Problem Non-intractable cyclical vomiting with nausea G43.A0 Active 50784076 Problem Poor appetite R63.0 Active 87476740 Problem Wheezing on auscultation R06.2 Active 985243166 Problem Acquired immune deficiency syndrome B20 Active 18091485 Problem Other chronic pain G89.29 Active 24775108 Problem Mood swings F39 Active 85598077 Problem Generalized anxiety disorder F41.1 Active 44672561 Problem GERD (gastroesophageal reflux disease) K21.9 Active 967784693 Problem Mixed hyperlipidemia E78.2 Active 981927176 Problem Intrinsic asthma J45.909 Active 093081635 Problem Migraine G43.909 Active 31486387 Problem Backache M54.9 Active 271837840 ALLERGIES No Information ENCOUNTERS Encounter Location Date Diagnosis [facility] [address] [facility] [address] [place] [id number] Sep, [facility] [address] [place] [address] Jun, [facility] [address] [place] [address] Jun, [facility] [address] [place] [address] Jun, Other chronic pain G89.29 [facility] [address] [place] [address] Jun, [facility] [address] [place] [address] Jun, [facility] [address] [place] [address] Jun, [facility] [address] [place] [address] Jun, [facility] [address] [place] [address] Jun, [facility] [address] [place] [address] Jun, Generalized anxiety disorder F41.1 ; Other chronic pain G89.29 and Non-intractable cyclical vomiting with nausea G43.A0 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 ; Nicotine dependence, cigarettes, uncomplicated F17.210 ; Lower respiratory infection J22 ; Poor appetite R63.0 ; Other chronic pain G89.29 ; Generalized anxiety disorder F41.1 and Need for tetanus booster Z23 [facility] [address] [place] [address] Jun, [address] [address] May, Generalized abdominal pain R10.84 [facility] [address] [place] [address] May, [address] [address] Apr, AIDS B20 ; Generalized abdominal pain R10.84 and Dysmenorrhea N94.6 [facility] [address] [place] [address] Apr, Acute URI J06.[address] [address] Apr, [facility] [address] [place] [address] Apr, [facility] [address] [place] [id number] Apr, Acquired immune deficiency syndrome B20 ; correction ( current) use of opiate analgesic Z79.891 and Migraine G43.909 [facility] [address] [place] [address] Mar, Dysmenorrhea N94.6 [facility] [address] [place] [address] Mar, [facility] [address] [place] [address] Mar, Generalized anxiety disorder F41.1 and Generalized abdominal pain R10.84 [facility] [address] [place] [address] Mar, [facility] [address] [place] [address] Mar, Generalized abdominal pain R10.84 and Generalized anxiety disorder F41.1 [facility] [address] [place] [address] Feb, [facility] [address] [place] [address] Feb, Generalized abdominal pain R10.84 [facility] [address] [place] [address] Jan, Nausea and vomiting R11.2 [facility] [address] [place] [address] Jan, [facility] [address] [place] [address] Jan, [facility] [address] [place] [address] Jan, [facility] [address] [place] [address] Jan, [facility] [address] [place] [address] Jan, [facility] [address] [place] [address] Jan, Mood swings F39 [facility] [address] [place] [address] 08 Jan, 2017 [facility] [address] [place] [address] Jan, [facility] [address] [place] [address] Jan, [facility] [address] [place] [address] Jan, Dysmenorrhea N94.6 [facility] [address] [place] [phone] Jan, Acquired immune deficiency syndrome B20 ; Generalized abdominal pain R10.84 and Refused influenza vaccine Z28.21 [facility] [address] [place] [address] Jan, [facility] [address] [address] Dec, Generalized abdominal pain R10.84 [facility] [address] [place] [address] Dec, Dysmenorrhea N94.6 [facility] [address] [address] Dec, Backache M54.9 [facility] [address] [address] Nov, Generalized abdominal pain R10.84 [facility] [address] [address] Nov, Generalized anxiety disorder F41.1 [facility] [address] [address] Nov, Dysmenorrhea N94.6 [facility] [address] [place] [address] Oct, [facility] [address] [place] [address] Oct, [facility] [address] [place] [address] Oct, [facility] [address] [place] [address] Oct, Generalized abdominal pain R10.84 [facility] [address] [facility] [place] [id number] Oct, Acquired immune deficiency syndrome B20 ; 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 ; Bipolar affective disorder F31.9 ; Generalized anxiety disorder F41.1 ; Backache M54.9 ; Mixed hyperlipidemia E78.2 ; Nicotine dependence, cigarettes, uncomplicated F17.210 and Wheezing on auscultation R06.2 [facility] [address] [place] [address] Oct, Oral candidiasis B37.0 [facility] [address] [place] [address] Oct, [facility] [address] [place] [address] Oct, Acute upper respiratory infection J06.9 [facility] [address] [place] [address] Oct, Acute upper respiratory infection J06.9 [facility] [address] [place] [address] Sep, Dysmenorrhea N94.6 [facility] [address] [place] [address] Sep, Generalized anxiety disorder F41.1 [facility] [address] [place] [address] Sep, Dysmenorrhea N94.6 [facility] [address] [place] [address] Sep, [facility] [address] [place] [address] Sep, Dysmenorrhea N94.6 [facility] [address] [place] [address] Aug, Acquired immune deficiency syndrome B20 [facility] [address] [place] [address] Aug, Generalized anxiety disorder F41.1 [facility] [address] [place] [address] Aug, [facility] [address] [place] [address] Aug, [facility] [address] [place] [address] Aug, [facility] [address] [place] [address] Aug, [facility] [address] [place] [address] Aug, [facility] [address] [place] [address] Aug, [facility] [address] [place] [address] Aug, [facility] [address] [place] [address] Aug, Acute opioid withdrawal F11.[address] [address] July, Upper respiratory infection J06.[address] [address] July, Backache M54.9 [facility] [address] [place] [id number] July, Acquired immune deficiency syndrome B20 ; 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 ; Hyperglycemia R73.9 ; Bipolar affective disorder F31.9 ; GERD (gastroesophageal reflux disease) K21.9 ; Backache M54.9 ; Generalized anxiety disorder F41.1 ; Mixed hyperlipidemia E78.2 ; Nicotine dependence, cigarettes, uncomplicated F17.210 and Localized edema R60.[address] [address] July, [facility] [address] [place] [address] Jun, Backache M54.[address] [address] Jun, Chronic pain G89.[address] [address] May, Backache M54.[address] [address] May, Backache M54.[address] [address] Apr, Cough R05 [facility] [address] [phone] Apr, Acquired immune deficiency syndrome B20 ; Screening examination for sexually transmitted disease Z11.3 ; Dermatitis L30.9 and Migraine with aura and with status migrainosus, not intractable G43.[address] [address] Apr, Backache M54.[address] [address] Mar, Intrinsic asthma J45.909 ; Nausea and vomiting R11.2 and AIDS B20 [address] [address] Mar, Backache M54.[address] [address] Feb, Chronic pain G89.[address] [address] Feb, Backache M54.[address] [address] Jan, [place] [facility], 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 [address] Jan, Asthma, intrinsic 493.[address] [address] Jan, [address] [address] Jan, [address] [address] Jan, Backache M54.[address] [address] Dec, Chronic pain G89.29 [facility] [address] [place] [phone] Dec, AIDS B20 ; Influenza vaccine needed Z23 ; Intrinsic asthma J45.909 ; Backache M54.9 ; Generalized anxiety disorder F41.1 ; Nicotine dependence, cigarettes, uncomplicated F17.210 and Mixed hyperlipidemia E78.2 [facility] [address] [place] [address] Dec, [facility] [address] [place] [address] Dec, Dysmenorrhea N94.6 [facility] [address] [place] [address] Dec, [facility] [address] [place] [address] 17 Dec, 2015 Depression with anxiety F41.8 and Backache M54.9 [facility] [address] [place] [address] Nov, [facility] [address] [place] [address] 19 Nov, 2015 Other chronic pain G89.29 [facility] [address] [place] [address] 18 Nov, 2015 Other chronic pain G89.29 [facility] [address] [place] [address] 18 Nov, 2015 [facility] [address] [place] [address] 14 Nov, 2015 Generalized anxiety disorder F41.1 [facility] [address] [place] [address] 06 Nov, 2015 [facility] [address] [place] [address] Nov, [facility] [address] [place] [address] 04 Nov, 2015 Chronic pain G89.29 [facility] [address] [place] [address] Oct, [facility] [address] [place] [address] Oct, Other chronic pain G89.29 [facility] [address] [place] [address] Oct, [facility] [address] [place] [address] Oct, [facility] [address] [place] [address] Oct, Nausea and vomiting R11.2 [facility] [address] [place] [address] Oct, Chronic pain G89.29 [facility] [address] [place] [address] Sep, [facility] [address] [place] [address] Sep, Acute upper respiratory infection, unspecified J06.9 [facility] [address] [place] [address] Sep, Upper respiratory infection J06.9 [facility] [address] [place] [address] Sep, [facility] [address] [place] [address] Sep, [facility] [address] [place] [address] Sep, Other chronic pain G89.29 [facility] [address] [place] [id number] Sep, AIDS B20 ; correction (current) use of opiate analgesic Z79.891 ; Smoking F17.200 ; Mixed hyperlipidemia E78.2 ; Chronic pain G89.29 and Edema R60.9 [facility] [address] [place] [address] Sep, [facility] [address] [place] [address] Sep, [facility] [address] [place] [address] Aug, [facility] [address] [place] [address] Aug, Other chronic pain G89.29 [facility] [address] [place] [address] Aug, Generalized anxiety disorder F41.[address] [address] July, Other chronic pain G89.29 [facility] [address] [place] [facility] [place] [address] July, Other chronic pain G89.29 [facility] [address] [place] [facility] [place] [address] July, [facility] [address] [place] [facility] [place] [address] Jun, Generalized anxiety disorder F41.1 [facility] [address] [place] [facility] [place] [address] Jun, [facility] [address] [place] [facility] [place] [address] Jun, Other chronic pain G89.29 [facility] [address] [place] [facility] [place] [address] Jun, Rash and other nonspecific skin eruption R21 [facility] [address] [place] [facility] [place] [address] Jun, [facility] [address] [place] [facility] [place] [address] Jun, [facility] [address] [place] [facility] [place] [address] Jun, [facility] [address] [place] [facility] [place] [address] Jun, [facility] [address] [place] [facility] [place] [address] Jun, [facility] [address] [place] [facility] [place] [address] Jun, [facility] [address] [place] [facility] [place] [address] Jun, [facility] [address] [place] [facility] [place] [address] Jun, Other chronic pain G89.29 [facility] [address] [place] [facility] [place] [address] Jun, [facility] [address] [place] [facility] [place] [address] Jun, [facility] [address] [place] [facility] [place] [address] Jun, [facility] [address] [place] [facility] [place] [address] Jun, [facility] [address] [place] [facility] [place] [address] Jun, [facility] [address] [place] [facility] [place] [address] Jun, [facility] [address] [place] [facility] [place] [address] Jun, [facility] [address] [place] [facility] [place] [address] Jun, [facility] [address] [place] [facility] [place] [address] Jun, [facility] [address] [place] [facility] [place] [address] Jun, Nausea and vomiting R11.2 [facility] [address] [place] [address] May, [facility] [address] [place] [address] May, Rash and other nonspecific skin eruption R21 [facility] [address] [place] [address] May, [facility] [address] [place] [address] May, [facility] [address] [place] [address] May, [facility] [address] [place] [address] May, [facility] [address] [place] [address] May, [facility] [address] [place] [id number] May, Acquired immune deficiency syndrome B20 ; Screening examination for sexually transmitted disease Z11.3 ; Depression with anxiety F41.8 ; Other chronic pain G89.29 and Dermatitis L30.9 [facility] [address] [place] [address] May, [facility] [address] [place] [facility] [place] [address] May, [facility] [address] [place] [facility] [place] [address] May, [facility] [address] [place] [facility] [place] [address] May, Backache M54.9 [facility] [address] [place] [facility] [place] [address] May, Rash and other nonspecific skin eruption R21 [facility] [address] [place] [facility] [place] [address] Apr, [facility] [address] [place] [facility] [place] [address] Apr, [facility] [address] [place] [facility] [place] [address] Apr, Other chronic pain G89.29 [facility] [address] [place] [facility] [place] [address] Apr, [facility] [address] [place] [facility] [place] [address] Apr, [facility] [address] [place] [facility] [place] [address] Apr, [facility] [address] [place] [facility] [place] [address] Apr, [facility] [address] [place] [address] Apr, [facility] [address] [place] [facility] [place] [address] Apr, [facility] [address] [place] [facility] [place] [address] Apr, [facility] [address] [place] [facility] [place] [address] Apr, [facility] [address] [place] [facility] [place] [address] Apr, [facility] [address] [place] [address] Apr, [facility] [address] [place] [address] Apr, Other chronic pain G89.29 ; Generalized anxiety disorder F41.1 ; Nausea R11.0 and AIDS B20 [facility] [address] [place] [address] Apr, [facility] [address] [place] [address] Apr, Generalized anxiety disorder F41.1 [facility] [address] [place] [address] Apr, [facility] [address] [place] [address] Apr, Other chronic pain G89.[address] [address] Mar, [facility] [address] [place] [id number] Mar, correction (current) use of opiate analgesic Z79.891 ; Bipolar affective disorder F31.9 ; Smoking F17.200 ; Generalized anxiety disorder F41.1 ; Influenza vaccine administered Z23 and AIDS B20 [address] [address] Mar, Other chronic pain G89.[address] [address] Mar, Generalized anxiety disorder F41.[address] [address] Mar, [facility] [address] [place] [address] Mar, Asymptomatic HIV infection Z21 [address] [address] Mar, Other chronic pain G89.[address] [address] Feb, [address] [address] Feb, [address] [address] Feb, [facility] [address] [place] [address] Feb, [facility] [address] [place] [address] Feb, [facility] [address] [place] [address] Jan, Other chronic pain G89.29 and Nausea & vomiting R11.2 [facility] [address] [place] [address] Jan, Other chronic pain G89.29 [facility] [address] [place] [address] Dec, [facility] [address] [place] [address] Dec, Other chronic pain G89.29 ; Asymptomatic HIV infection Z21 ; Intrinsic asthma J45.909 ; Bipolar affective disorder F31.9 ; Noncompliance Z91.19 ; Migraine G43.909 ; Tobacco use disorder Z72.0 ; GERD (gastroesophageal reflux disease) K21.9 ; Backache M54.9 and Generalized anxiety disorder F41.1 [facility] [address] [place] [address] Nov, [facility] [address] [place] [address] Nov, [address] [address] Oct, Other chronic pain 338.29 [facility] [address] [place] [address] Oct, [facility] [address] [place] [address] Oct, Unspecified backache 724.5 and Dysphagia 787.20 [facility] [address] [place] [address] Sep, Other chronic pain 338.[address] [address] Sep, [address] [place] [address] 30 Aug, 2014 URI (upper respiratory infection) 465.9 and Diarrhea 787.[address] [address] Aug, [address] [address] Aug, Other chronic pain 338.[address] [address] Aug, Other chronic pain 338.29 and Generalized anxiety disorder 300.[address] [address] Aug, [address] [address] July, Other chronic pain 338.29 [facility] [address] [place] [id number] July, Nondependent tobacco use disorder 305.1 ; Unspecified backache 724.5 ; Other chronic pain 338.29 ; Abdominal pain, unspecified site 789.00 ; correction (current) use of opiate analgesic V58.69 and Acquired immune deficiency syndrome [address] [address] July, Other chronic pain 338.[address] [address] Jun, Other chronic pain 338.[address] [address] Jun, [address] [address] Jun, Other chronic pain 338.[address] [address] Jun, URI (upper respiratory infection) 465.[address] [address] Jun, Generalized anxiety disorder 300.02 and Seasonal allergies 477.[address] [address] Jun, Generalized anxiety disorder 300.02 [facility] [address] [place] [address] May, Other chronic pain 338.[address] [address] May, Other chronic pain 338.29 and Generalized anxiety disorder 300.02 [facility] [address] [place] [address] Apr, Asthma, intrinsic 493.10 and Acute upper respiratory infections of other multiple sites 465.8 [facility] [address] [place] [address] Apr, [facility] [address] [facility] [address] [place] [id number] Apr, Depressive disorder 311 [facility] [address] [place] [address] Apr, Other chronic pain 338.[address] [address] Apr, [facility] [address] [place] [address] Apr, Other chronic pain 338.[address] [address] Mar, Acute upper respiratory infections of unspecified site 465.[address] [facility] [address] [place] [phone] Mar, Migraine 346.90 ; Nondependent tobacco use disorder 305.1 ; Esophageal reflux 530.81 ; Unspecified backache 724.5 ; Abdominal pain, generalized 789.07 ; Flatulence, eructation, and gas pain 787.3 ; Asymptomatic human immunodeficiency virus (HIV) infection status V08 ; Dyspepsia and other specified disorders of function of stomach 536.8 ; Nausea alone 787.02 and Asthma 493.[address] [address] Mar, Other chronic pain 338.[address] [address] Feb, Other chronic pain 338.29 and Generalized anxiety disorder 300.02 [facility] [address] [place] [address] Feb, Abdominal pain, generalized 789.07 [facility] [address] [place] [address] Jan, Abdominal pain, generalized 789.[address] [facility] [address] [place] [phone] Dec, [facility] [address] [place] [address] Dec, [facility] [address] [place] [address] Dec, Unspecified backache 724.5 [facility] [address] [place] [phone] Dec, [facility] [address] [place] [phone] Nov, [facility] [address] [id number] Nov, [facility] [address] [place], [place] [phone] Nov, Bipolar disorder, unspecified 296.80 ; Abdominal pain, generalized 789.07 ; Generalized anxiety disorder 300.02 ; Nausea alone 787.02 ; Flu vaccine need V04.81 and Human immunodeficiency virus (HIV) disease 042 [facility] [address] [place] [address] Nov, [facility] [id number] [place], [place] [phone] Oct, [facility] [address] [facility] [address] [place], [place] [phone] Oct, [facility] [address] [id number] Aug, [facility] [address] [place] [address] Jun, [facility] [address] [place] [phone] Mar, [facility] [address] [place] [phone] Oct, [facility] [address] [place] [facility] [place] [address] July, [facility] [address] [place] [facility] [place] [address] Jun, [facility] [address] [place] [facility] [place] [address] May, [facility] [address] [place] [facility] [place] [address] Mar, [facility] [address] [place] [facility] [place] [address] Feb, [facility] [address] [place] [facility] [place] [address] Nov, [facility] [address] [place] [facility] [place] [address] Oct, [facility] [address] [place] [facility] [place] [address] Aug, [facility] [address] [place] [facility] [place] [address] May, [facility] [address] [place] [facility] [place] [address] Mar, IMMUNIZATIONS No Known Immunizations SOCIAL HISTORY Never Assessed REASON FOR VISIT Re: RE:RE:RE:Fatigue PLAN OF CARE VITAL SIGNS MEDICATIONS [...]
--- OUTSIDE RECORDS SUMMARY | 2017-08-18 15:05 | XMS REPORT ---
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 Name Role Phone Zandra Watson Unavailable PROBLEMS Type Condition ICD9-CM Code FIM77-HR Code Onset Dates Condition Status SNOMED Code Problem Backache M54.9 Active 066098036 Problem Migraine G43.909 Active 00948690 Problem GERD (gastroesophageal reflux disease) K21.9 Active 263788308 Problem Mixed hyperlipidemia E78.2 Active 161101895 Problem Generalized anxiety disorder F41.1 Active 80213482 Problem Wheezing on auscultation R06.2 Active 853504923 Problem Acquired immune deficiency syndrome B20 Active 31089321 Problem Intrinsic asthma J45.909 Active 247133945 Problem Bipolar affective disorder F31.9 Active 04288007 Problem Nicotine dependence, cigarettes, uncomplicated F17.210 Active 07393167 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
[2017-08-18] MEDS ORDERED: KETOROLAC 30 MG/ML VIAL IVP ONE (15:15)
[2017-08-18 15:22] LABS: ALANINE AMINOTRANSFERASE 10 U/L (0-55); ALBUMIN 4.4 GM/DL (3.2-4.5); ALKALINE PHOSPHATASE 80 U/L (40-136); BILIRUBIN,TOTAL 0.2 MG/DL (0.1-1.0); BUN/CREATININE RATIO 28; CALCIUM 9.2 MG/DL (8.5-10.1); CARBON DIOXIDE 19 MMOL/L (21-32); CHLORIDE 113 MMOL/L (98-107); CREATININE SERUM 0.93 MG/DL (0.60-1.30); GFR ESTIMATED > 60; GLUCOSE 88 MG/DL (70-105); POTASSIUM 4.3 MMOL/L (3.6-5.0); SODIUM 141 MMOL/L (135-145); TOTAL PROTEIN 7.5 GM/DL (6.4-8.2)
--- NOTE | 2017-08-18 15:26 | ED General ---
General Chief Complaint: Bite-Animal/Human/Insect Stated Complaint: SPIDER BITE LEFT FOOT Nursing Triage Note: pt thinks she was bitten on the top of her left foot approximately four days ago. pt states she did not see what bit her. pt states wound has been draining green fluid, and is itching and painful. Nursing Sepsis Screen: No Definite Risk Source of Information: Patient Exam Limitations: No Limitations History of Present Illness Date Seen by Provider: Aug 18, 2017 Time Seen by Provider: 14:32 Initial Comments This 42-year-old woman presents to the emergency room with a lesion on the dorsum of her left foot that presented with some 2 small spots about 4 days ago. It now has a dusky center measuring about 2 cm in diameter with surrounding erythema. She states it is pruritic and very painful. She rates her pain as 8 out of 10. She denies fever but she is mildly tachycardic. She reports it drained green pus yesterday. She is HIV positive. She denies any other significant health problems. Allergies and Home Medications Allergies Coded Allergies: No Known Drug Allergies (Unverified , 11/11/16) Home Medications Albuterol Sulfate 1 Puff Puff, 2 PUFF IH Q4H PRN for SHORTNESS OF BREATH, ( Reported) 1 PUFF = 90 MCG Alprazolam 1 Mg Tablet, 1 MG PO BID, (Reported) Azithromycin 250 Mg Tablet, 250 MG PO DAILY, (Reported) Dapsone 100 Mg Tablet, 100 MG PO DAILY, (Reported) Dicyclomine HCl 20 Mg Tablet, 20 MG PO TID, (Reported) Docusate Sodium 100 Mg Capsule, 100 MG PO BID Prescribed by: JAKY HOBSON on 11/29/16 0704 Doxycycline Hyclate 100 Mg Tablet, 100 MG PO BID Prescribed by: CARMELA MISHRA on 08/18/17 1620 Dronabinol 10 Mg Capsule, 10 MG PO BID, (Reported) Elvitegr/Cobicist/Emtric/Tenof 1 Each Tablet, 1 EACH PO DAILY, (Reported) Ibuprofen 800 Mg Tablet, 800 MG PO Q6HR Prescribed by: JAKY HOBSON on 11/29/16 0704 Methocarbamol 750 Mg Tablet, 750 MG PO Q8H, (Reported) Naproxen 500 Mg Tablet, 500 MG PO BID PRN for PAIN-MODERATE Prescribed by: VINITA GREER on 08/19/17 1213 Ondansetron HCl 8 Mg Tablet, 8 MG PO Q8H PRN for NAUSEA/VOMITING-1ST LINE, ( Reported) Oxycodone HCl/Acetaminophen 1 Each Tablet, 1-2 TAB PO Q4HR PRN for PAIN- MODERATE TO SEVERE Prescribed by: JAKY HOBSON on 11/29/16 0704 Patient Home Medication List Home Medication List Reviewed: Yes Review of Systems Constitutional: see HPI EENTM: no symptoms reported Respiratory: no symptoms reported Cardiovascular: see HPI Gastrointestinal: no symptoms reported Genitourinary: no symptoms reported : No Musculoskeletal: no symptoms reported Skin: see HPI Psychiatric/Neurological: No Symptoms Reported Hematologic/Lymphatic: No Symptoms Reported Past Fehluvp-Amrjhz-Usheez Hx Patient Social History Type Used: Cigarettes 2nd Hand Smoke Exposure: Yes Recent Foreign Travel: No Contact w/Someone Who Travel: No Recent Infectious Disease Expo: No Recent Hopitalizations: No Immunizations Up To Date Tetanus Booster (TDap): Less than 5yrs Date of Pneumonia Vaccine: Mar 16, 2014 Date of Influenza Vaccine: Dec 24, 2015 Seasonal Allergies Seasonal Allergies: No Past Medical History Surgeries: Yes Gallbladder, Tubal Ligation Respiratory: Yes Asthma Cardiac: No Neurological: Yes Headaches /Migraines 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 Disorders: Yes (CPP, AUB) Female 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 Disorders: 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 Sexually Transmitted Disease: No HIV/AIDS: Yes Genitourinary: No Gastrointestinal: Yes Abdominal Hernia Musculoskeletal: Yes Back Injury, Chronic Back Pain Endocrine: No HEENT: No Loss of Vision: Denies Hearing Impairment: Denies Cancer: No Psychosocial: No Anxiety Integumentary: No Blood Disorders: Yes (HIV) Adverse Reaction/Blood Tranf: No Family Medical History No Pertinent Family Hx, Cancer, Hypertension Physical Exam Vital Signs Vital Signs - First Documented 08/18/17 08/18/17 14:36 16:52 Temp 98.9 Pulse 102 Resp 17 B/P (MAP) 116/81 (93) Pulse Ox 99 O2 Delivery Room Air Capillary Refill : Less Than 3 Seconds General Appearance: No Apparent Distress, WD/WN, Thin HEENT: PERRL/EOMI, Normal ENT Inspection Neck: Normal Inspection Respiratory: Lungs Clear, Normal Breath Sounds, No Accessory Muscle Use, No Respiratory Distress Cardiovascular: No Edema, No Murmur, Tachycardia Extremity: Other (Dusky necrotic appearing lesion on the dorsum of the left foot measuring 2-3 cm in diameter. There is tenderness, erythema, and swelling of the surrounding tissue. Distal exam is normal.) Neurologic/Psychiatric: Alert, Oriented x3, No Motor/Sensory Deficits, Normal Mood/Affect, bundle shaker II-XII Norm as Tested Skin: Normal Color, Warm/Dry, Other (See above) Progress/Results/Core Measures Suspected Sepsis Recent Fever Within 48 Hours: No Infection Criteria Present: Suspected New Infection New/Unexplained Altered Menta: No Sepsis Screen: No Definite Risk SIRS Temperature:98.9 Pulse: 102 Respiratory Rate: 17 Blood Pressure 116 /81 Mean: 93 Results/Orders Lab Results My Orders Orders - CARMELA BRASHER MD Iv Infusion <= First Hr Ed (08/18/17 ) Medications Given in ED Vital Signs/I&O Capillary Refill : Less Than 3 Seconds Blood Pressure Mean: 93 Progress Note : Progress Note Patient was given a liter of IV fluids. Labs were assessed. Patient did not appear septic. History and exam seem consistent with a spider bite. Toradol was given for pain. This was not sufficient for pain control. Hydrocodone was given prior to dismissal. Antibiotics were initiated with clindamycin by IV route. Neutropenia was noted. Patient has a history of prior neutropenia as well. Departure Impression Primary Impression: Spider bite wound Qualified Codes: T63.301A - Toxic effect of unspecified spider venom, accidental (unintentional), initial encounter Additional Impressions: Cellulitis Qualified Codes: L03.116 - Cellulitis of left lower limb HIV positive Neutropenia Qualified Codes: D70.8 - Other neutropenia Disposition: 01 HOME, SELF-CARE Condition: Improved Departure-Patient Inst. Decision time for Depature: 16:15 Referrals: NO,LOCAL PHYSICIAN (PCP/Family) Primary Care Physician Patient Instructions: Spider Bites Add. Discharge Instructions: Elevate your foot when at rest. For pain use ibuprofen up to 600 mg every 6 hours as needed. Add Tylenol ( acetaminophen) up to 1000 mg every 6 hours as needed for additional pain relief. Complete your antibiotic as prescribed. Follow-up with your primary care provider soon as possible for repeat exam. Return to care if you have worsening symptoms, especially if you develop fevers over 100. All discharge instructions reviewed with patient and/or family. Voiced understanding. Scripts Doxycycline Hyclate (Doxycycline Hyclate) 100 Mg Tablet 100 MG PO BID, #14 TAB Prov: CARMELA BRASHER MD 08/18/17 CARMELA BRASHER MD Aug 18, 2017 15:26
[2017-08-18] MEDS ORDERED: CLINDAMYCIN 900 MG/50 ML IVPB 50 ML IV ONE (16:00)
[2017-08-18] MEDS ORDERED: HYDROcodone/APAP 5 MG/325 MG (LORTAB) TAB PO ONE (16:15)
[2017-08-18] MEDS ORDERED: DOXY100T2 PO (16:20)
[2017-08-18 16:52] VITALS: BP 110/88
[2017-08-19] MEDS ORDERED: NAPR-1071 PO (12:13)
== END 2017-08-18 16:52 | disposition home or self-care (01) ==
LOC: EDUNIT# 14:32 → ER 14:33
DX: S90.862A Insect bite (nonvenomous), left foot, initial encounter (principal); D70.9 Neutropenia, unspecified; F41.9 Anxiety disorder, unspecified; J45.909 Unspecified asthma, uncomplicated; G43.909 Migraine, unspecified, not intractable, without status migrainosus; Z21 Asymptomatic human immunodeficiency virus [HIV] infection status; Z87.19 Personal history of other diseases of the digestive system; Z98.51 Tubal ligation status; Z77.22 Contact with and (suspected) exposure to environmental tobacco smoke (acute) (chronic); W57.XXXA Bitten or stung by nonvenomous insect and other nonvenomous arthropods, initial encounter
CPT/HCPCS: 36415; 80053; 85025; 86141; 96361; 96365; 96375

== ENCOUNTER 2017-08-19 11:39 | Emergency (ER) | payer OTHER, MEDICAID ==
[~2017-08-19] VITALS: Ht 162.6 cm; Wt 59.0 kg
[~2017-08-19 11:39] MED LIST changes: +DOXY100T2 PO
--- NOTE | 2017-08-19 11:53 | ED Lower Extremity ---
General Chief Complaint: Lower Extremity Stated Complaint: POSS SPIDER BITE LEFT FOOT Source: patient Exam Limitations: no limitations History of Present Illness Date Seen by Provider: Aug 19, 2017 Time Seen by Provider: 11:48 Initial Comments to ER with reports of a suspected brown recluse spider bite to the dorsum of the left foot. she was seen here yesterday for the same, received IV clindamycin and a prescription for doxycycline. She returns today with worsening pain, worsening swelling. Denies fevers or chills. Denies nausea vomiting. She is HIV positive. she would like something stronger for pain. Onset: just prior to arrival Severity: moderate Pain/Injury Location: left foot Method of Injury: unknown Allergies and Home Medications Allergies Coded Allergies: No Known Drug Allergies (Unverified , 11/11/16) Home Medications Albuterol Sulfate 1 Puff Puff, 2 PUFF IH Q4H PRN for SHORTNESS OF BREATH, ( Reported) 1 PUFF = 90 MCG Alprazolam 1 Mg Tablet, 1 MG PO BID, (Reported) Azithromycin 250 Mg Tablet, 250 MG PO DAILY, (Reported) Dapsone 100 Mg Tablet, 100 MG PO DAILY, (Reported) Dicyclomine HCl 20 Mg Tablet, 20 MG PO TID, (Reported) Docusate Sodium 100 Mg Capsule, 100 MG PO BID Prescribed by: JAKY HOBSON on 11/29/16 0704 Doxycycline Hyclate 100 Mg Tablet, 100 MG PO BID Prescribed by: CARMELA MISHRA on 08/18/17 1620 Dronabinol 10 Mg Capsule, 10 MG PO BID, (Reported) Elvitegr/Cobicist/Emtric/Tenof 1 Each Tablet, 1 EACH PO DAILY, (Reported) Ibuprofen 800 Mg Tablet, 800 MG PO Q6HR Prescribed by: JAKY HOBSON on 11/29/16 0704 Methocarbamol 750 Mg Tablet, 750 MG PO Q8H, (Reported) Naproxen 500 Mg Tablet, 500 MG PO BID PRN for PAIN-MODERATE Prescribed by: VINITA GREER on 08/19/17 1213 Ondansetron HCl 8 Mg Tablet, 8 MG PO Q8H PRN for NAUSEA/VOMITING-1ST LINE, ( Reported) Oxycodone HCl/Acetaminophen 1 Each Tablet, 1-2 TAB PO Q4HR PRN for PAIN- MODERATE TO SEVERE Prescribed by: JAKY HOBSON on 11/29/16 0704 Patient Home Medication List Home Medication List Reviewed: Yes Constitutional: see HPI; No chills, No fever EENTM: see HPI Respiratory: no symptoms reported Cardiovascular: no symptoms reported Genitourinary: no symptoms reported Musculoskeletal: see HPI Skin: no symptoms reported Psychiatric/Neurological: No Symptoms Reported Past Vvsdcnh-Yhloxq-Ogaiyw Hx Patient Social History Type Used: Cigarettes 2nd Hand Smoke Exposure: Yes Recent Foreign Travel: No Contact w/Someone Who Travel: No Recent Hopitalizations: No Immunizations Up To Date Tetanus Booster (TDap): Less than 5yrs Date of Pneumonia Vaccine: Mar 16, 2014 Date of Influenza Vaccine: Dec 24, 2015 Seasonal Allergies Seasonal Allergies: No Past Medical History Surgeries: Yes (RUDDY 2011 WITH ERCP) Gallbladder, Tubal Ligation Respiratory: Yes Asthma Cardiac: No Neurological: Yes Headaches /Migraines 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 Disorders: Yes (CPP, AUB) Female 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 Sexually Transmitted Disease: No HIV/AIDS: Yes Genitourinary: No Gastrointestinal: Yes Abdominal Hernia Musculoskeletal: Yes Back Injury, Chronic Back Pain Endocrine: No HEENT: No Loss of Vision: Denies Hearing Impairment: Denies Cancer: No Psychosocial: Yes Anxiety Integumentary: No Blood Disorders: Yes (HIV) Adverse Reaction/Blood Tranf: No Family Medical History No Pertinent Family Hx, Cancer, Hypertension Physical Exam Vital Signs Vital Signs - First Documented 08/19/17 11:49 Temp 98.3 Pulse 84 Resp 18 B/P (MAP) 97/ Pulse Ox 98 O2 Delivery Room Air Capillary Refill : General Appearance: WD/WN, no apparent distress HEENT: PERRL/EOMI, normal ENT inspection Neck: non-tender, full range of motion Respiratory: no respiratory distress, no accessory muscle use Gastrointestinal: normal bowel sounds, non tender Hips: bilateral hip non-tender, bilateral hip normal inspection, bilateral hip normal range of motion Legs: bilateral leg non-tender, bilateral leg normal inspection, bilateral leg normal range of motion Knees: bilateral knee non-tender, bilateral knee normal inspection, bilateral knee normal range of motion Ankles: bilateral ankle non-tender, bilateral ankle normal inspection, bilateral ankle normal range of motion Feet: left foot swelling (there is some swelling to the dorsum of left foot. There is a nickel sized area of purplish skin in the center of this which may become necrotic surrounded by slight erythema.) Skin: other (multiple small scabbed sores on her face.) Progress/Results/Core Measures Results/Orders Lab Results Laboratory Tests Test 08/19/17 11:49 Range/Units Urine Opiates Screen NEGATIVE NEGATIVE Urine Oxycodone Screen NEGATIVE NEGATIVE Urine Methadone Screen NEGATIVE NEGATIVE Urine Propoxyphene Screen NEGATIVE NEGATIVE Urine Barbiturates Screen NEGATIVE NEGATIVE Ur Tricyclic Antidepressants Screen NEGATIVE NEGATIVE Urine Phencyclidine Screen NEGATIVE NEGATIVE Urine Amphetamines Screen POSITIVE H NEGATIVE Urine Methamphetamines Screen NEGATIVE NEGATIVE Urine Benzodiazepines Screen NEGATIVE NEGATIVE Urine Cocaine Screen NEGATIVE NEGATIVE Urine Cannabinoids Screen POSITIVE H NEGATIVE My Orders Orders - VINITA GREER APRN Drug Screen Stat (Urine) (08/19/17 11:47) Ketorolac Injection (Toradol Injection) (08/19/17 12:30) Vital Signs/I&O 08/19/17 11:49 Temp 98.3 Pulse 84 Resp 18 B/P (MAP) 97/ Pulse Ox 98 O2 Delivery Room Air Departure Communication (Admissions) I did call [facility]. They have her doxycycline ready but she has not yet picked it up.her urine drug screen is positive for amphetamines which she is not prescribed. With that in mind, I fear that opiates would be abused if I should prescribe these, so shewill need to continue with Tylenol or anti- inflammatories. Impression Primary Impression: Spider bite Disposition: 01 HOME, SELF-CARE Condition: Stable Departure-Patient Inst. Decision time for Depature: 11:53 Referrals: NO,LOCAL PHYSICIAN (PCP/Family) Primary Care Physician Patient Instructions: Spider Bites Add. Discharge Instructions: 1. Cool compress to the foot, Tylenol and Motrin for pain control. Fill your antibiotics today. I spoke with [facility] and they have it ready , but you have not yet picked it up. All discharge instructions reviewed with patient and/or family. Voiced understanding. Scripts Naproxen (Naprosyn) 500 Mg Tablet 500 MG PO BID PRN for PAIN-MODERATE, #14 TAB Prov: VINITA GREER APRN 08/19/17 VINITA GREER APRN Aug 19, 2017 11:53
[2017-08-19 12:08] LABS: AMPHETAMINE SCREEN, URINE POSITIVE (NEGATIVE); BARBITURATE SCREEN URINE NEGATIVE (NEGATIVE); BENZODIAZEPINES SCREEN URINE NEGATIVE (NEGATIVE); CANNABINOID SCREEN, URINE POSITIVE (NEGATIVE); COCAINE SCREEN URINE NEGATIVE (NEGATIVE); METHADONE STAT NEGATIVE (NEGATIVE); METHAMPHETAMINE SCREEN URINE S NEGATIVE (NEGATIVE); OPIATE SCREEN URINE NEGATIVE (NEGATIVE); OXYCODONE STAT NEGATIVE (NEGATIVE); PROPOXYPHENE STAT NEGATIVE (NEGATIVE); TRICYCLIC ANTIDEPRESSANTS SCRE NEGATIVE (NEGATIVE)
[2017-08-19] MEDS ORDERED: NAPR-1071 PO (12:13)
[2017-08-19] MEDS ORDERED: KETOROLAC 60 MG/2 ML VIAL IM ONE (12:30)
[2017-08-19 12:33] VITALS: BP 151/97
== END 2017-08-19 12:33 | disposition home or self-care (01) ==
LOC: EDUNIT# 11:39 → ER 11:40
DX: T63.331A Toxic effect of venom of brown recluse spider, accidental (unintentional), initial encounter (principal); J45.909 Unspecified asthma, uncomplicated; G43.909 Migraine, unspecified, not intractable, without status migrainosus; F41.9 Anxiety disorder, unspecified; Z87.19 Personal history of other diseases of the digestive system; Z77.22 Contact with and (suspected) exposure to environmental tobacco smoke (acute) (chronic); Z98.51 Tubal ligation status; Z90.49 Acquired absence of other specified parts of digestive tract
CPT/HCPCS: 80306; 96372; 99284

== ENCOUNTER 2018-03-22 13:31 | Emergency (ER) | payer MEDICAID, OTHER ==
[~2018-03-22] VITALS: Ht 165.1 cm; Wt 61.2 kg
[~2018-03-22 13:31] MED LIST changes: +NAPR-1071 PO
--- OUTSIDE RECORDS SUMMARY | 2018-03-22 13:38 | XMS REPORT ---
Author Author Dulce Herrera Organization [facility] Address [address] [place] [address] [phone] Care Team Providers Care Desktop Support Manager Name Role Phone Dulce Herrera Unavailable PROBLEMS Type Condition ICD9-CM Code JME13-LC Code Onset Dates Condition Status SNOMED Code Problem Nicotine dependence, cigarettes, uncomplicated F17.210 Active 88212383 Problem Wheezing on auscultation R06.2 Active 812200528 Problem Acquired immune deficiency syndrome B20 Active 84963093 Problem Anxiety F41.9 Active 23839971 Problem Chronic pain syndrome G89.4 Active 133656985 Problem Other chronic pain G89.29 Active 61689440 Problem Mood swings F39 Active 97078805 Problem Non-intractable cyclical vomiting with nausea G43.A0 Active 45850660 Problem Poor appetite R63.0 Active 13948769 Problem Mixed hyperlipidemia E78.2 Active 378742742 Problem GERD (gastroesophageal reflux disease) K21.9 Active 160613460 Problem Intrinsic asthma J45.909 Active 568009596 Problem Migraine G43.909 Active 97167850 Problem Bipolar affective disorder F31.9 Active 80933274 Problem Generalized anxiety disorder F41.1 Active 63470789 Problem 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 Active [id number] ALLERGIES No Information ENCOUNTERS Encounter Location Date Diagnosis [address] [address] Feb, Wheezing on auscultation R06.2 and Acute upper respiratory infection , unspecified J06.9 [facility] [address] [place] [phone] Feb, [facility] [place], [facility] [address] [place] [phone] Feb, Acquired immune deficiency syndrome B20 ; Generalized abdominal pain R10.84 and Wheezing on auscultation R06.[address] [address] Jan, [facility] [address] [place] [address] Jan, [facility] [address] [place] [address] Jan, [facility] [address] [place] [address] 16 Jan, 2018 GERD (gastroesophageal reflux disease) K21.9 and Oral thrush B37.0 [facility] [address] [place] [address] Jan, Anxiety F41.9 [facility] [address] [place] [address] Jan, [facility] [address] [place] [address] Dec, Oral thrush B37.0 and Poor appetite R63.0 [facility] [place] [address] [place] [phone] Nov, Influenza vaccine refused Z28.21 ; Acquired immune deficiency syndrome B20 ; Anxiety F41.9 ; Noncompliance Z91.19 ; Oral thrush B37.0 and Chronic pain syndrome G89.4 [facility] [address] [place] [address] Nov, Backache M54.9 [facility] [address] [place] [address] Nov, Acquired immune deficiency syndrome B20 [facility] [address] [place] [address] Nov, Acquired immune deficiency syndrome B20 [facility] [address] [place] [address] Oct, [facility] [address] [place] [address] Oct, Backache M54.9 [facility] [address] [place] [address] Oct, [facility] [address] [place] [address] Oct, [facility] [address] [place] [address] Oct, [facility] [address] [place] [address] Oct, [facility] [address] [place] [address] Oct, Upper respiratory infection J06.9 and Backache M54.9 [facility] [address] [place] [address] Oct, Generalized anxiety disorder F41.1 and Backache M54.9 [facility] [address] [place] [address] Sep, Acquired immune deficiency syndrome B20 [facility] [address] [place] [address] Sep, [facility] [place] [address] [place] [phone] Sep, Acquired immune deficiency syndrome B20 ; Intrinsic asthma J45.909 and Open wound T14.8XXA [facility] [address] [place] [address] Sep, [facility] [address] [place] [address] Sep, [facility] [address] [place] [address] Sep, [facility] [address] [place] [address] Sep, Poor appetite R63.0 [facility] [address] [place] [address] Sep, Backache M54.9 [facility] [address] [place] [address] Sep, [facility] [address] [place] [address] Aug, Generalized anxiety disorder F41.1 [facility] [address] [place] [address] Aug, [facility] [address] [place] [address] Aug, Backache M54.9 [facility] [address] [place] [address] Aug, [facility] [address] [place] [address] Aug, Spider bite T63.301A [facility] [address] [place] [address] Aug, [facility] [address] [place] [address] Aug, [facility] [address] [place] [address] Aug, [facility] [address] [place] [address] July, [facility] [address] [place] [address] July, [facility] [address] [place] [address] July, [facility] [address] [place] [address] July, [facility] [address] [place] [address] July, [facility] [address] [place] [address] July, Poor appetite R63.0 and Backache M54.9 [facility] [address] [place] [address] July, [facility] [address] [place] [address] July, [facility] [address] [place] [address] July, [facility] [address] [place] [address] July, [facility] [address] [place] [address] July, [facility] [address] [place] [address] July, Nausea and vomiting R11.2 [facility] [address] [place] [address] July, [facility] [address] [place] [address] July, [facility] [address] [place] [address] July, [facility] [address] [place] [address] July, [facility] [address] [place] [address] July, [facility] [address] [place] [address] July, Other chronic pain G89.29 [facility] [address] [place] [address] July, [facility] [address] [place] [address] July, GERD (gastroesophageal reflux disease) K21.9 [facility] [address] [place] [address] July, [facility] [address] [place] [address] Jun, [facility] [address] [place] [address] Jun, [facility] [address] [place] [address] Jun, [facility] [address] [place] [address] Jun, [facility] [address] [place] [address] Jun, Other chronic pain G89.29 [facility] [address] [place] [address] Jun, [facility] [address] [place] [address] Jun, [facility] [address] [place] [address] Jun, [facility] [address] [place] [address] Jun, [address] [address] Jun, [address] [address] Jun, Generalized anxiety disorder F41.1 ; Other chronic pain G89.29 and Non-intractable cyclical vomiting with nausea G43.A0 [facility] [address] [place] [phone] Jun, Acquired immune deficiency syndrome B20 ; 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 ; Nicotine dependence, cigarettes, uncomplicated F17.210 ; Lower respiratory infection J22 ; Poor appetite R63.0 ; Other chronic pain G89.29 ; Generalized anxiety disorder F41.1 and Need for tetanus booster Z23 [address] [address] Jun, [address] [address] May, Generalized abdominal pain R10.[address] [address] May, [address] [address] Apr, AIDS B20 ; Generalized abdominal pain R10.84 and Dysmenorrhea N94.[address] [address] Apr, Acute URI J06.[address] [address] Apr, [address] [address] Apr, [address] [phone] Apr, Acquired immune deficiency syndrome B20 ; 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 and Migraine G43.[address] [address] Mar, Dysmenorrhea N94.6 [address] [place] [address] Mar, [facility] [address] [place] [address] Mar, Generalized anxiety disorder F41.1 and Generalized abdominal pain R10.84 [facility] [address] [place] [address] Mar, [facility] [address] [place] [address] Mar, Generalized abdominal pain R10.84 and Generalized anxiety disorder F41.1 [facility] [address] [place] [address] Feb, [facility] [address] [place] [address] Feb, Generalized abdominal pain R10.84 [facility] [address] [place] [address] Jan, Nausea and vomiting R11.2 [facility] [address] [place] [address] Jan, [facility] [address] [place] [address] Jan, [facility] [address] [place] [address] Jan, [facility] [address] [place] [address] Jan, [facility] [address] [place] [address] Jan, [facility] [address] [place] [address] Jan, Mood swings F39 [facility] [address] [place] [address] Jan, [facility] [address] [place] [address] Jan, [facility] [address] [place] [address] Jan, [facility] [address] [place] [address] Jan, Dysmenorrhea N94.6 [facility] [address] [place] [phone] Jan, Acquired immune deficiency syndrome B20 ; Generalized abdominal pain R10.84 and Refused influenza vaccine Z28.[address] [address] Jan, [address] [address] Dec, Generalized abdominal pain R10.[address] [address] Dec, Dysmenorrhea N94.[address] [address] Dec, Backache M54.[address] [address] Nov, Generalized abdominal pain R10.[address] [address] Nov, Generalized anxiety disorder F41.[address] [address] Nov, Dysmenorrhea N94.[address] [address] Oct, [address] [address] Oct, [address] [address] Oct, [address] [address] Oct, Generalized abdominal pain R10.84 [facility] [place] [address] [place] [phone] Oct, Acquired immune deficiency syndrome B20 ; 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 ; Bipolar affective disorder F31.9 ; Generalized anxiety disorder F41.1 ; Backache M54.9 ; Mixed hyperlipidemia E78.2 ; Nicotine dependence, cigarettes, uncomplicated F17.210 and Wheezing on auscultation R06.2 [place] [address] [place] [address] Oct, Oral candidiasis B37.0 [facility] [address] [place] [address] Oct, [facility] [address] [place] [address] Oct, Acute upper respiratory infection J06.9 [facility] [address] [place] [address] Oct, Acute upper respiratory infection J06.9 [facility] [address] [place] [address] Sep, Dysmenorrhea N94.6 [facility] [address] [place] [address] Sep, Generalized anxiety disorder F41.1 [facility] [address] [place] [address] Sep, Dysmenorrhea N94.6 [facility] [address] [place] [address] Sep, [facility] [address] [place] [address] Sep, Dysmenorrhea N94.6 [facility] [address] [place] [address] Aug, Acquired immune deficiency syndrome B20 [facility] [address] [place] [address] Aug, Generalized anxiety disorder F41.1 [facility] [address] [place] [address] Aug, [facility] [address] [place] [address] Aug, [facility] [address] [place] [address] Aug, [facility] [address] [place] [address] Aug, [facility] [address] [place] [address] Aug, [facility] [address] [place] [address] Aug, [address] [address] Aug, [address] [address] Aug, Acute opioid withdrawal F11.[address] [address] July, Upper respiratory infection J06.[address] [address] July, Backache M54.9 [facility] [address] [place] [phone] July, Acquired immune deficiency syndrome B20 ; USP 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 Z79.891 ; Hyperglycemia R73.9 ; Bipolar affective disorder F31.9 ; GERD (gastroesophageal reflux disease) K21.9 ; Backache M54.9 ; Generalized anxiety disorder F41.1 ; Mixed hyperlipidemia E78.2 ; Nicotine dependence, cigarettes, uncomplicated F17.210 and Localized edema R60.[address] [address] July, [address] [address] Jun, Backache M54.[address] [address] Jun, Chronic pain G89.[address] [address] May, Backache M54.[address] [address] May, Backache M54.[address] [address] Apr, Cough R05 [facility] [address] [place] [phone] Apr, Acquired immune deficiency syndrome B20 ; Screening examination for sexually transmitted disease Z11.3 ; Dermatitis L30.9 and Migraine with aura and with status migrainosus, not intractable G43.101 [facility] [address] [place] [address] Apr, Backache M54.9 [facility] [address] [place] [address] Mar, Intrinsic asthma J45.909 ; Nausea and vomiting R11.2 and AIDS B20 [address] [address] Mar, Backache M54.[address] [address] Feb, Chronic pain G89.[address] [address] Feb, Backache M54.[address] [address] Jan, [place] [facility], 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 [address] Jan, Asthma, intrinsic 493.[address] [address] Jan, [address] [address] Jan, [address] [address] Jan, Backache M54.[address] [address] Dec, Chronic pain G89.29 [facility] [address] [place] [phone] Dec, AIDS B20 ; Influenza vaccine needed Z23 ; Intrinsic asthma J45.909 ; Backache M54.9 ; Generalized anxiety disorder F41.1 ; Nicotine dependence, cigarettes, uncomplicated F17.210 and Mixed hyperlipidemia E78.[address] [address] Dec, [address] [address] Dec, Dysmenorrhea N94.6 [facility] [address] [place] [address] Dec, [facility] [address] [place] [address] 17 Dec, 2015 Depression with anxiety F41.8 and Backache M54.9 [facility] [address] [place] [address] 19 Nov, 2015 [facility] [address] [place] [address] 19 Nov, 2015 Other chronic pain G89.29 [facility] [address] [place] [address] 18 Nov, 2015 Other chronic pain G89.29 [facility] [address] [place] [address] 18 Nov, 2015 [facility] [address] [place] [address] 14 Nov, 2015 Generalized anxiety disorder F41.1 [facility] [address] [place] [address] 06 Nov, 2015 [facility] [address] [place] [address] Nov, [facility] [address] [place] [address] 04 Nov, 2015 Chronic pain G89.29 [facility] [address] [place] [address] Oct, [facility] [address] [place] [address] Oct, Other chronic pain G89.29 [facility] [address] [place] [address] Oct, [facility] [address] [place] [address] Oct, [facility] [address] [place] [address] Oct, Nausea and vomiting R11.2 [facility] [address] [place] [address] Oct, Chronic pain G89.29 [facility] [address] [place] [address] Sep, [facility] [address] [place] [address] Sep, Acute upper respiratory infection, unspecified J06.9 [facility] [address] [place] [address] Sep, Upper respiratory infection J06.9 [facility] [address] [place] [address] Sep, [facility] [address] [place] [address] Sep, [facility] [address] [place] [address] Sep, Other chronic pain G89.29 [facility] [place] [address] [place] [phone] Sep, AIDS B20 ; 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 ; Smoking F17.200 ; Mixed hyperlipidemia E78.2 ; Chronic pain G89.29 and Edema R60.[address] [address] Sep, [facility] [address] [place] [address] Sep, [facility] [address] [place] [address] Aug, [facility] [address] [place] [address] Aug, Other chronic pain G89.29 [facility] [address] [place] [address] Aug, Generalized anxiety disorder F41.1 [facility] [address] [place] [address] July, Other chronic pain G89.29 [facility] [address] [place] [address] July, Other chronic pain G89.29 [facility] [address] [place] [address] July, [facility] [address] [place] [address] Jun, Generalized anxiety disorder F41.1 [facility] [address] [place] [address] Jun, [facility] [address] [place] [address] Jun, Other chronic pain G89.29 [facility] [address] [place] [address] Jun, Rash and other nonspecific skin eruption R21 [facility] [address] [place] [address] Jun, [facility] [address] [place] [address] Jun, [facility] [address] [place] [address] Jun, [facility] [address] [place] [address] Jun, [facility] [address] [place] [address] Jun, [facility] [address] [place] [address] Jun, [facility] [address] [place] [address] Jun, [facility] [address] [place] [address] Jun, Other chronic pain G89.29 [facility] [address] [place] [address] Jun, [facility] [address] [place] [address] Jun, [facility] [address] [place] [address] Jun, [facility] [address] [place] [address] Jun, [facility] [address] [place] [address] Jun, [facility] [address] [place] [address] Jun, [facility] [address] [place] [address] Jun, [facility] [address] [place] [address] Jun, [facility] [address] [place] [address] Jun, [facility] [address] [place] [address] Jun, Nausea and vomiting R11.2 [facility] [address] [place] [address] May, [facility] [address] [place] [address] May, Rash and other nonspecific skin eruption R21 [facility] [address] [place] [address] May, [facility] [address] [place] [address] May, [facility] [address] [place] [address] May, [facility] [address] [place] [address] May, [facility] [address] [place] [address] May, [facility] [place] [address] [place] [phone] May, Acquired immune deficiency syndrome B20 ; Screening examination for sexually transmitted disease Z11.3 ; Depression with anxiety F41.8 ; Other chronic pain G89.29 and Dermatitis L30.9 [facility] [address] [place] [address] May, [facility] [address] [place] [address] May, [facility] [address] [place] [address] May, [facility] [address] [place] [address] May, Backache M54.9 [facility] [address] [place] [address] May, Rash and other nonspecific skin eruption R21 [facility] [address] [place] [address] Apr, [facility] [address] [place] [address] Apr, [facility] [address] [place] [address] Apr, Other chronic pain G89.29 [facility] [address] [place] [address] Apr, [facility] [address] [place] [address] Apr, [facility] [address] [place] [address] Apr, [facility] [address] [place] [address] Apr, [facility] [address] [place] [address] Apr, [facility] [address] [place] [address] Apr, [facility] [address] [place] [address] Apr, [facility] [address] [place] [address] Apr, [facility] [address] [place] [address] Apr, [facility] [address] [place] [address] Apr, [facility] [address] [place] [address] Apr, Other chronic pain G89.29 ; Generalized anxiety disorder F41.1 ; Nausea R11.0 and AIDS B20 [facility] [address] [place] [address] Apr, [facility] [address] [place] [address] Apr, Generalized anxiety disorder F41.1 [facility] [address] [place] [address] Apr, [facility] [address] [place] [address] Apr, Other chronic pain G89.29 [facility] [address] [place] [address] Mar, [facility] [place] [address] [place] [phone] Mar, USP (current) use of opiate analgesic Z79.891 ; Bipolar affective disorder F31.9 ; Smoking F17.200 ; Generalized anxiety disorder F41.1 ; Influenza vaccine administered Z23 and AIDS B20 [facility] [address] [place] [address] Mar, Other chronic pain G89.29 [facility] [address] [place] [address] Mar, Generalized anxiety disorder F41.1 [facility] [address] [place] [address] Mar, [facility] [address] [place] [address] Mar, Asymptomatic HIV infection Z21 [facility] [address] [place] [address] Mar, Other chronic pain G89.29 [facility] [address] [place] [address] Feb, [facility] [address] [place] [address] Feb, [facility] [address] [place] [address] Feb, [facility] [address] [place] [address] Feb, [facility] [address] [place] [address] Feb, [address] [address] Jan, Other chronic pain G89.29 and Nausea & vomiting R11.[address] [address] Jan, Other chronic pain G89.[address] [address] Dec, [address] [address] Dec, Other chronic pain G89.29 ; Asymptomatic HIV infection Z21 ; Intrinsic asthma J45.909 ; Bipolar affective disorder F31.9 ; Noncompliance Z91.19 ; Migraine G43.909 ; Tobacco use disorder Z72.0 ; GERD (gastroesophageal reflux disease) K21.9 ; Backache M54.9 and Generalized anxiety disorder F41.[address] [address] Nov, [address] [address] Nov, [address] [address] Oct, Other chronic pain 338.[address] [address] Oct, [address] [address] Oct, Unspecified backache 724.5 and Dysphagia 787.[address] [address] Sep, Other chronic pain 338.[address] [address] Sep, [address] [address] Aug, URI (upper respiratory infection) 465.9 and Diarrhea 787.[address] [address] Aug, [address] [place] [address] Aug, Other chronic pain 338.[address] [address] Aug, Other chronic pain 338.29 and Generalized anxiety disorder 300.[address] [address] Aug, [address] [address] July, Other chronic pain 338.29 [facility] [address] [place] [id number] July, Nondependent tobacco use disorder 305.1 ; Unspecified backache 724.5 ; Other chronic pain 338.29 ; Abdominal pain, unspecified site 789.00 ; USP (current) use of opiate analgesic V58.69 and Acquired immune deficiency syndrome [address] [address] July, Other chronic pain 338.[address] [address] Jun, Other chronic pain 338.[address] [address] Jun, [address] [address] Jun, Other chronic pain 338.[address] [address] Jun, URI (upper respiratory infection) 465.[address] [address] Jun, Generalized anxiety disorder 300.02 and Seasonal allergies 477.[address] [address] Jun, Generalized anxiety disorder 300.[address] [address] May, Other chronic pain 338.[address] [address] May, Other chronic pain 338.29 and Generalized anxiety disorder 300.02 [facility] [address] [place] [address] 16 Apr, 2014 Asthma, intrinsic 493.10 and Acute upper respiratory infections of other multiple sites 465.8 [facility] [address] [place] [address] 13 Apr, 2014 [facility] [address] [facility] [address] [place], [place] [id number] Apr, Depressive disorder 311 [facility] [address] [place] [address] Apr, Other chronic pain 338.[address] [address] Apr, [facility] [address] [place] [address] Apr, Other chronic pain 338.[address] [address] Mar, Acute upper respiratory infections of unspecified site 465.9 [facility] [address] [place] [id number] Mar, Migraine 346.90 ; Nondependent tobacco use disorder 305.1 ; Esophageal reflux 530.81 ; Unspecified backache 724.5 ; Abdominal pain, generalized 789.07 ; Flatulence, eructation, and gas pain 787.3 ; Asymptomatic human immunodeficiency virus (HIV) infection status V08 ; Dyspepsia and other specified disorders of function of stomach 536.8 ; Nausea alone 787.02 and Asthma 493.90 [facility] [address] [place] [address] Mar, Other chronic pain 338.[address] [address] Feb, Other chronic pain 338.29 and Generalized anxiety disorder 300.[address] [address] Feb, Abdominal pain, generalized 789.[address] [address] Jan, Abdominal pain, generalized 789.07 [facility] [address] [place], [place] [id number] Dec, [facility] [address] [place] [address] Dec, [facility] [address] [place] [address] Dec, Unspecified backache 724.5 [facility] [address] [place] [address] Dec, [facility] [address] [place] [address] Nov, [facility] [address] [id number] Nov, [facility] [address] [place] [id number] Nov, Bipolar disorder, unspecified 296.80 ; Abdominal pain, generalized 789.07 ; Generalized anxiety disorder 300.02 ; Nausea alone 787.02 ; Flu vaccine need V04.81 and Human immunodeficiency virus (HIV) disease 042 [facility] [address] [place] [address] Nov, [facility] [address] [place] [id number] Oct, [facility] [address] [facility] [address] [place], [place] [id number] Oct, [facility] [address] [id number] Aug, [facility] [address] [place] [address] Jun, [facility] [address] [place] [address] Mar, [facility] [address] [place] [address] Oct, [facility] [address] [place] [address] July, [facility] [address] [place] [address] Jun, [facility] [address] [place] [address] May, [facility] [address] [place] [address] Mar, [facility] [address] [place] [address] Feb, [facility] [address] [place] [address] Nov, [facility] [address] [place] [address] Oct, [facility] [address] [place] [address] Aug, [facility] [address] [place] [address] May, [facility] [address] [place] [address] Mar, IMMUNIZATIONS No Known Immunizations SOCIAL HISTORY Never Assessed REASON FOR VISIT Re: RE:Re: RE:refill PLAN OF CARE VITAL SIGNS MEDICATIONS Medication Instructions Dosage Frequency Start Date End Date Duration Status Augmentin 875-125 MG Orally every 12 hrs 1 tablet 12h Sep, 10 day(s) Active PredniSONE 5 MG Orally Once a day as directed, 6 tabs day 1, 5 tabs day 2, 4 tabs day 3, 3 tabs day 4, 2 tabs day 5, 1 tab day 6 24h Feb, 30 day(s) Active RESULTS No Results PROCEDURES No Known procedures INSTRUCTIONS MEDICATIONS ADMINISTERED No Known Medications MEDICAL (GENERAL) HISTORY Type Description Date Medical History Asymptomatic HIV infection ; Medical History H/O noncompliance with medical treatment, presenting hazards to health , (Desc:Personal history of noncompliance with medical treatment, presenting hazards to health) ; Medical History Nondependent tobacco use disorder , (Desc:Tobacco use disorder ) ; Medical History Intrinsic asthma, unspecified (493.10) ; Medical History Abdominal pain, chronic, generalized ; Medical History Bipolar disorder? Anxiety Medical History Migraine Medical History Nondependent tobacco use disorder Medical History Esophageal reflux Surgical History Tubal Ligation 2004 Surgical History Hysterectomy & umbilicus hernia repair 11/28/16 Surgical History Cholecystectomy 2010
--- OUTSIDE RECORDS SUMMARY | 2018-03-22 13:39 | XMS REPORT ---
Author Author Dulce Herrera Organization [facility] Address [address] [place] [address] [phone] Care Team Providers Care Supervisor [employer] Name Role Phone Dulce Herrera Unavailable PROBLEMS Type Condition ICD9-CM Code NIJ38-SF Code Onset Dates Condition Status SNOMED Code Problem Nicotine dependence, cigarettes, uncomplicated F17.210 Active 65034180 Problem Wheezing on auscultation R06.2 Active 766602944 Problem Acquired immune deficiency syndrome B20 Active 26306368 Problem Anxiety F41.9 Active 96832913 Problem Chronic pain syndrome G89.4 Active 662943022 Problem Other chronic pain G89.29 Active 80947554 Problem Mood swings F39 Active 54422165 Problem Non-intractable cyclical vomiting with nausea G43.A0 Active 48452213 Problem Poor appetite R63.0 Active 59004040 Problem Mixed hyperlipidemia E78.2 Active 399092076 Problem GERD (gastroesophageal reflux disease) K21.9 Active 252772105 Problem Intrinsic asthma J45.909 Active 669624390 Problem Migraine G43.909 Active 93470820 Problem Bipolar affective disorder F31.9 Active 09514262 Problem Generalized anxiety disorder F41.1 Active 72769410 Problem 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 [address] [place] [address] [phone] Feb, Acquired immune deficiency syndrome B20 ; Generalized abdominal pain R10.84 and Wheezing on auscultation R06.[address] [address] Jan, [facility] [address] [place] [address] Jan, [facility] [address] [place] [address] Jan, [facility] [address] [place] [address] 16 Jan, 2018 GERD (gastroesophageal reflux disease) K21.9 and Oral thrush B37.0 [facility] [address] [place] [address] Jan, Anxiety F41.9 [facility] [address] [place] [address] Jan, [facility] [address] [place] [address] Dec, Oral thrush B37.0 and Poor appetite R63.0 [facility] [address] [place] [address] [phone] Nov, Influenza vaccine refused Z28.21 ; Acquired immune deficiency syndrome B20 ; Anxiety F41.9 ; Noncompliance Z91.19 ; Oral thrush B37.0 and Chronic pain syndrome G89.4 [facility] [address] [place] [address] Nov, Backache M54.9 [facility] [address] [place] [address] Nov, Acquired immune deficiency syndrome B20 [facility] [address] [place] [address] Nov, Acquired immune deficiency syndrome B20 [facility] [address] [place] [address] Oct, [facility] [address] [place] [address] Oct, Backache M54.9 [facility] [address] [place] [address] Oct, [facility] [address] [place] [address] Oct, [facility] [address] [place] [place] [address] Oct, [facility] [address] [place] [place] [address] Oct, [facility] [address] [place] [facility] [place] [address] Oct, Upper respiratory infection J06.9 and Backache M54.9 [facility] [address] [place] [place] [address] Oct, Generalized anxiety disorder F41.1 and Backache M54.9 [facility] [address] [place] [address] Sep, Acquired immune deficiency syndrome B20 [facility] [address] [place] [address] Sep, [facility] [address] [place] [phone] Sep, Acquired immune deficiency syndrome B20 ; Intrinsic asthma J45.909 and Open wound T14.8XXA [facility] [address] [place] [facility] [place] [address] Sep, [facility] [address] [place] [address] Sep, [facility] [address] [place] [address] Sep, [facility] [address] [place] [address] Sep, Poor appetite R63.0 [facility] [address] [place] [address] Sep, Backache M54.9 [facility] [address] [place] [address] Sep, [facility] [address] [place] [address] Aug, Generalized anxiety disorder F41.1 [facility] [address] [place] [address] Aug, [facility] [address] [place] [facility] [place] [address] Aug, Backache M54.9 [facility] [address] [place] [facility] [place] [address] Aug, [facility] [address] [place] [address] Aug, Spider bite T63.301A [facility] [address] [place] [facility] [place] [address] Aug, [facility] [address] [place] [facility] [place] [address] Aug, [facility] [address] [place] [place] [address] Aug, [facility] [address] [place] [address] July, [facility] [address] [place] [address] July, [facility] [address] [place] [address] July, [facility] [address] [place] [address] July, [facility] [address] [place] [address] July, [facility] [address] [place] [address] July, Poor appetite R63.0 and Backache M54.9 [facility] [address] [place] [address] July, [facility] [address] [place] [address] July, [facility] [address] [place] [place] [address] July, [facility] [address] [place] [address] July, [facility] [address] [place] [place] [address] July, [facility] [address] [place] [address] July, Nausea and vomiting R11.2 [facility] [address] [place] [place] [address] July, [facility] [address] [place] [place] [address] July, [facility] [address] [place] [place] [address] July, [facility] [address] [place] [address] July, [facility] [address] [place] [address] July, [facility] [address] [place] [address] July, Other chronic pain G89.29 [facility] [address] [place] [address] July, [facility] [address] [place] [place] [address] July, GERD (gastroesophageal reflux disease) K21.9 [facility] [address] [place] [place] [address] July, [facility] [address] [place] [address] Jun, [facility] [address] [place] [place] [address] Jun, [facility] [address] [place] [place] [address] Jun, [facility] [address] [place] [address] Jun, [facility] [address] [place] [place] [address] Jun, Other chronic pain G89.29 [facility] [address] [place] [place] [address] Jun, [facility] [address] [place] [place] [address] Jun, [facility] [address] [place] [place] [address] Jun, [facility] [address] [place] [facility] [place] [address] Jun, [address] [address] Jun, [address] [address] Jun, Generalized anxiety disorder F41.1 ; Other chronic pain G89.29 and Non-intractable cyclical vomiting with nausea G43.A0 [facility] [address] [place] [phone] Jun, Acquired immune deficiency syndrome B20 ; 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 ; Nicotine dependence, cigarettes, uncomplicated F17.210 ; Lower respiratory infection J22 ; Poor appetite R63.0 ; Other chronic pain G89.29 ; Generalized anxiety disorder F41.1 and Need for tetanus booster Z23 [address] [address] Jun, [address] [address] May, Generalized abdominal pain R10.[address] [address] May, [address] [address] Apr, AIDS B20 ; Generalized abdominal pain R10.84 and Dysmenorrhea N94.[address] [address] Apr, Acute URI J06.[address] [address] Apr, [address] [address] Apr, [address] [phone] Apr, Acquired immune deficiency syndrome B20 ; 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 and Migraine G43.[address] [address] Mar, Dysmenorrhea N94.6 [address] [place] [address] Mar, [facility] [address] [place] [facility] [place] [address] Mar, Generalized anxiety disorder F41.1 and Generalized abdominal pain R10.84 [facility] [address] [place] [facility] [place] [address] Mar, [facility] [address] [place] [facility] [place] [address] Mar, Generalized abdominal pain R10.84 and Generalized anxiety disorder F41.1 [facility] [address] [place] [place] [address] Feb, [facility] [address] [place] [place] [address] Feb, Generalized abdominal pain R10.84 [facility] [address] [place] [place] [address] Jan, Nausea and vomiting R11.2 [facility] [address] [place] [address] Jan, [facility] [address] [place] [place] [address] Jan, [facility] [address] [place] [place] [address] Jan, [facility] [address] [place] [address] Jan, [facility] [address] [place] [place] [address] Jan, [facility] [address] [place] [place] [address] Jan, Mood swings F39 [facility] [address] [place] [place] [address] Jan, [facility] [address] [place] [address] Jan, [facility] [address] [place] [place] [address] Jan, [facility] [address] [place] [place] [address] Jan, Dysmenorrhea N94.6 [facility] [address] [place] [phone] Jan, Acquired immune deficiency syndrome B20 ; Generalized abdominal pain R10.84 and Refused influenza vaccine Z28.[address] [address] Jan, [address] [address] Dec, Generalized abdominal pain R10.[address] [address] Dec, Dysmenorrhea N94.[address] [address] Dec, Backache M54.[address] [address] Nov, Generalized abdominal pain R10.[address] [address] Nov, Generalized anxiety disorder F41.[address] [address] Nov, Dysmenorrhea N94.[address] [address] Oct, [address] [address] Oct, [address] [address] Oct, [address] [address] Oct, Generalized abdominal pain R10.84 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 ; Bipolar affective disorder F31.9 ; Generalized anxiety disorder F41.1 ; Backache M54.9 ; Mixed hyperlipidemia E78.2 ; Nicotine dependence, cigarettes, uncomplicated F17.210 and Wheezing on auscultation R06.2 [place] [address] [place] [facility] [place] [address] Oct, Oral candidiasis B37.0 [facility] [address] [place] [facility] [place] [address] Oct, [facility] [address] [place] [facility] [place] [address] Oct, Acute upper respiratory infection J06.9 [facility] [address] [place] [place] [address] Oct, Acute upper respiratory infection J06.9 [facility] [address] [place] [place] [address] Sep, Dysmenorrhea N94.6 [facility] [address] [place] [facility] [place] [address] Sep, Generalized anxiety disorder F41.1 [facility] [address] [place] [address] Sep, Dysmenorrhea N94.6 [facility] [address] [place] [place] [address] Sep, [facility] [address] [place] [place] [address] Sep, Dysmenorrhea N94.6 [facility] [address] [place] [place] [address] Aug, Acquired immune deficiency syndrome B20 [facility] [address] [place] [address] Aug, Generalized anxiety disorder F41.1 [facility] [address] [place] [address] Aug, [facility] [address] [place] [place] [address] Aug, [facility] [address] [place] [address] Aug, [facility] [address] [place] [place] [address] Aug, [facility] [address] [place] [place] [address] Aug, [facility] [address] [place] [address] Aug, [address] [address] Aug, [address] [address] Aug, Acute opioid withdrawal F11.[address] [address] July, Upper respiratory infection J06.[address] [address] July, Backache M54.9 [facility] [address] [place] [phone] July, Acquired immune deficiency syndrome B20 ; group home 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 Z79.891 ; Hyperglycemia R73.9 ; Bipolar affective disorder F31.9 ; GERD (gastroesophageal reflux disease) K21.9 ; Backache M54.9 ; Generalized anxiety disorder F41.1 ; Mixed hyperlipidemia E78.2 ; Nicotine dependence, cigarettes, uncomplicated F17.210 and Localized edema R60.[address] [address] July, [address] [address] Jun, Backache M54.[address] [address] Jun, Chronic pain G89.[address] [address] May, Backache M54.[address] [address] May, Backache M54.[address] [address] Apr, Cough R05 [facility] [address] [place] [phone] Apr, Acquired immune deficiency syndrome B20 ; Screening examination for sexually transmitted disease Z11.3 ; Dermatitis L30.9 and Migraine with aura and with status migrainosus, not intractable G43.101 [facility] [address] [place] [address] Apr, Backache M54.9 [facility] [address] [place] [address] Mar, Intrinsic asthma J45.909 ; Nausea and vomiting R11.2 and AIDS B20 [address] [address] Mar, Backache M54.[address] [address] Feb, Chronic pain G89.[address] [address] Feb, Backache M54.[address] [address] Jan, [place] eye, 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 [address] Jan, Asthma, intrinsic 493.[address] [address] Jan, [address] [address] Jan, [address] [address] Jan, Backache M54.[address] [address] Dec, Chronic pain G89.29 [facility] [address] [place] [phone] Dec, AIDS B20 ; Influenza vaccine needed Z23 ; Intrinsic asthma J45.909 ; Backache M54.9 ; Generalized anxiety disorder F41.1 ; Nicotine dependence, cigarettes, uncomplicated F17.210 and Mixed hyperlipidemia E78.[address] [address] Dec, [address] [address] Dec, Dysmenorrhea N94.6 [facility] [address] [place] [address] Dec, [facility] [address] [place] [address] 17 Dec, 2015 Depression with anxiety F41.8 and Backache M54.9 [facility] [address] [place] [address] 19 Nov, 2015 [facility] [address] [place] [address] 19 Nov, 2015 Other chronic pain G89.29 [facility] [address] [place] [address] 18 Nov, 2015 Other chronic pain G89.29 [facility] [address] [place] [address] 18 Nov, 2015 [facility] [address] [place] [address] 14 Nov, 2015 Generalized anxiety disorder F41.1 [facility] [address] [place] [address] 06 Nov, 2015 [facility] [address] [place] [address] Nov, [facility] [address] [place] [address] 04 Nov, 2015 Chronic pain G89.29 [facility] [address] [place] [address] Oct, [facility] [address] [place] [address] Oct, Other chronic pain G89.29 [facility] [address] [place] [address] Oct, [facility] [address] [place] [address] Oct, [facility] [address] [place] [address] Oct, Nausea and vomiting R11.2 [facility] [address] [place] [address] Oct, Chronic pain G89.29 [facility] [address] [place] [address] Sep, [facility] [address] [place] [address] Sep, Acute upper respiratory infection, unspecified J06.9 [facility] [address] [place] [address] Sep, Upper respiratory infection J06.9 [facility] [address] [place] [address] Sep, [facility] [address] [place] [address] Sep, [facility] [address] [place] [address] Sep, Other chronic pain G89.29 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 ; Smoking F17.200 ; Mixed hyperlipidemia E78.2 ; Chronic pain G89.29 and Edema R60.[address] [address] Sep, [facility] [address] [place] [address] Sep, [facility] [address] [place] [address] Aug, [facility] [address] [place] [address] Aug, Other chronic pain G89.29 [facility] [address] [place] [address] Aug, Generalized anxiety disorder F41.1 [facility] [address] [place] [address] July, Other chronic pain G89.29 [facility] [address] [place] [address] July, Other chronic pain G89.29 [facility] [address] [place] [address] July, [facility] [address] [place] [facility] [place] [address] Jun, Generalized anxiety disorder F41.1 [facility] [address] [place] [place] [address] Jun, [facility] [address] [place] [place] [address] Jun, Other chronic pain G89.29 [facility] [address] [place] [address] Jun, Rash and other nonspecific skin eruption R21 [facility] [address] [place] [address] Jun, [facility] [address] [place] [place] [address] Jun, [facility] [address] [place] [address] Jun, [facility] [address] [place] [address] Jun, [facility] [address] [place] [address] Jun, [facility] [address] [place] [address] Jun, [facility] [address] [place] [place] [address] Jun, [facility] [address] [place] [address] Jun, Other chronic pain G89.29 [facility] [address] [place] [place] [address] Jun, [facility] [address] [place] [facility] [place] [address] Jun, [facility] [address] [place] [address] Jun, [facility] [address] [place] [address] Jun, [facility] [address] [place] [address] Jun, [facility] [address] [place] [address] Jun, [facility] [address] [place] [address] Jun, [facility] [address] [place] [address] Jun, [facility] [address] [place] [address] Jun, [facility] [address] [place] [address] Jun, Nausea and vomiting R11.2 [facility] [address] [place] [address] May, [facility] [address] [place] [address] May, Rash and other nonspecific skin eruption R21 [facility] [address] [place] [address] May, [facility] [address] [place] [address] May, [facility] [address] [place] [address] May, [facility] [address] [place] [address] May, [facility] [address] [place] [address] May, [facility] [address] [place] [phone] May, Acquired immune deficiency syndrome B20 ; Screening examination for sexually transmitted disease Z11.3 ; Depression with anxiety F41.8 ; Other chronic pain G89.29 and Dermatitis L30.9 [facility] [address] [place] [address] May, [facility] [address] [place] [address] May, [facility] [address] [place] [address] May, [facility] [address] [place] [address] May, Backache M54.9 [facility] [address] [place] [address] May, Rash and other nonspecific skin eruption R21 [facility] [address] [place] [address] Apr, [facility] [address] [place] [address] Apr, [facility] [address] [place] [address] Apr, Other chronic pain G89.29 [facility] [address] [place] [address] Apr, [facility] [address] [place] [address] Apr, [facility] [address] [place] [address] Apr, [facility] [address] [place] [address] Apr, [facility] [address] [place] [address] Apr, [facility] [address] [place] [address] Apr, [facility] [address] [place] [address] Apr, [facility] [address] [place] [address] Apr, [facility] [address] [place] [address] Apr, [facility] [address] [place] [address] Apr, [facility] [address] [place] [address] Apr, Other chronic pain G89.29 ; Generalized anxiety disorder F41.1 ; Nausea R11.0 and AIDS B20 [facility] [address] [place] [address] Apr, [facility] [address] [place] [address] Apr, Generalized anxiety disorder F41.1 [facility] [address] [place] [address] Apr, [facility] [address] [place] [address] Apr, Other chronic pain G89.29 [facility] [address] [place] [address] Mar, [facility] [address] [place] [id number] Mar, group home (current) use of opiate analgesic Z79.891 ; Bipolar affective disorder F31.9 ; Smoking F17.200 ; Generalized anxiety disorder F41.1 ; Influenza vaccine administered Z23 and AIDS B20 [facility] [address] [place] [address] Mar, Other chronic pain G89.29 [facility] [address] [place] [address] Mar, Generalized anxiety disorder F41.1 [facility] [address] [place] [address] Mar, [facility] [address] [place] [address] Mar, Asymptomatic HIV infection Z21 [facility] [facility] [address] [place] [address] Mar, Other chronic pain G89.29 [facility] [address] [place] [address] Feb, [facility] [address] [place] [address] Feb, [facility] [address] [place] [address] Feb, [facility] [address] [place] [address] Feb, [facility] [address] [place] [address] Feb, [address] [address] Jan, Other chronic pain G89.29 and Nausea & vomiting R11.[address] [address] Jan, Other chronic pain G89.[address] [address] Dec, [address] [address] Dec, Other chronic pain G89.29 ; Asymptomatic HIV infection Z21 ; Intrinsic asthma J45.909 ; Bipolar affective disorder F31.9 ; Noncompliance Z91.19 ; Migraine G43.909 ; Tobacco use disorder Z72.0 ; GERD (gastroesophageal reflux disease) K21.9 ; Backache M54.9 and Generalized anxiety disorder F41.[address] [address] Nov, [address] [address] Nov, [address] [address] Oct, Other chronic pain 338.[address] [address] Oct, [address] [address] Oct, Unspecified backache 724.5 and Dysphagia 787.[address] [address] Sep, Other chronic pain 338.[address] [address] Sep, [address] [address] Aug, URI (upper respiratory infection) 465.9 and Diarrhea 787.[address] [address] Aug, [address] [place] [address] Aug, Other chronic pain 338.[address] [address] Aug, Other chronic pain 338.29 and Generalized anxiety disorder 300.[address] [address] Aug, [address] [address] July, Other chronic pain 338.29 [facility] [address] [place] [phone] July, Nondependent tobacco use disorder 305.1 ; Unspecified backache 724.5 ; Other chronic pain 338.29 ; Abdominal pain, unspecified site 789.00 ; group home (current) use of opiate analgesic V58.69 and Acquired immune deficiency syndrome [address] [address] July, Other chronic pain 338.[address] [address] Jun, Other chronic pain 338.[address] [address] Jun, [address] [address] Jun, Other chronic pain 338.[address] [address] Jun, URI (upper respiratory infection) 465.[address] [address] Jun, Generalized anxiety disorder 300.02 and Seasonal allergies 477.[address] [address] Jun, Generalized anxiety disorder 300.[address] [address] May, Other chronic pain 338.[address] [address] May, Other chronic pain 338.29 and Generalized anxiety disorder 300.02 [facility] [address] [place] [address] 16 Apr, 2014 Asthma, intrinsic 493.10 and Acute upper respiratory infections of other multiple sites 465.8 [facility] [address] [place] [address] 13 Apr, [address] [facility] [address] [facility] [address] [place] [id number] Apr, Depressive disorder 311 [facility] [address] [place] [address] Apr, Other chronic pain 338.[address] [address] Apr, [facility] [address] [place] [address] Apr, Other chronic pain 338.[address] [address] Mar, Acute upper respiratory infections of unspecified site 465.9 [facility] [address] [place] [id number] Mar, Migraine 346.90 ; Nondependent tobacco use disorder 305.1 ; Esophageal reflux 530.81 ; Unspecified backache 724.5 ; Abdominal pain, generalized 789.07 ; Flatulence, eructation, and gas pain 787.3 ; Asymptomatic human immunodeficiency virus (HIV) infection status V08 ; Dyspepsia and other specified disorders of function of stomach 536.8 ; Nausea alone 787.02 and Asthma 493.90 [facility] [address] [place] [address] Mar, Other chronic pain 338.[address] [address] Feb, Other chronic pain 338.29 and Generalized anxiety disorder 300.[address] [address] Feb, Abdominal pain, generalized 789.[address] [address] Jan, Abdominal pain, generalized 789.07 [facility] [address] [place] [id number] Dec, [facility] [address] [place] [address] Dec, [facility] [address] [place] [address] Dec, Unspecified backache 724.5 [facility] [address] [place] [address] Dec, [facility] [address] [place] [address] Nov, [facility] [address] [id number] Nov, [facility] [address] [place] [id number] Nov, Bipolar disorder, unspecified 296.80 ; Abdominal pain, generalized 789.07 ; Generalized anxiety disorder 300.02 ; Nausea alone 787.02 ; Flu vaccine need V04.81 and Human immunodeficiency virus (HIV) disease 042 [facility] [address] [place] [address] Nov, [facility] [address] [place] [id number] Oct, [facility] [address] [facility] [address] [place] [id number] Oct, [facility] [address] [id number] Aug, [facility] [address] [place] [address] Jun, [facility] [address] [place] [address] Mar, [facility] [address] [place] [address] Oct, [facility] [address] [place] [address] July, [facility] [address] [place] [address] Jun, [facility] [address] [place] [facility] [place] [address] May, [facility] [address] [place] [facility] [place] [address] Mar, [facility] [address] [place] [facility] [place] [address] Feb, [facility] [address] [place] [facility] [place] [address] Nov, [facility] [address] [place] [facility] [place] [address] Oct, [facility] [address] [place] [facility] [place] [address] Aug, [facility] [address] [place] [facility] [place] [address] May, [facility] [address] [place] [facility] [place] [address] Mar, IMMUNIZATIONS No Known Immunizations SOCIAL HISTORY [...]
[2018-03-22] MEDS ORDERED: RT-ALBUTEROL SULF 2.5 MG/3 ML PRE-MIX VIAL INH STA (13:40)
[2018-03-22] MEDS ORDERED: RT-ALBUTEROL/IPRATROPIUM 3 ML (DUONEB) VIAL ONE (13:40)
[2018-03-22] MEDS ORDERED: NS IV 1000 ML 1,000 ML IV SCH (13:40)
[2018-03-22] MEDS ORDERED: RT-ALBUTEROL SULF 2.5 MG/3 ML PRE-MIX VIAL ONE (13:40)
--- OUTSIDE RECORDS SUMMARY | 2018-03-22 13:40 | XMS REPORT ---
Author Author Dulce Herrera [facility] Address [address] [place] [id number] Care Team Providers Care [employer] Name Role Phone Dulce Herrera Unavailable PROBLEMS Type Condition ICD9-CM Code EYV20-[id number] Code Onset Dates Condition Status SNOMED Code Problem Nicotine dependence, cigarettes, uncomplicated F17.210 Active 63126576 Problem Wheezing on auscultation R06.2 Active 811840604 Problem Acquired immune deficiency syndrome B20 Active 46985680 Problem Anxiety F41.9 Active 41318790 Problem Chronic pain syndrome G89.4 Active 304801341 Problem Other chronic pain G89.29 Active 52162949 Problem Mood swings F39 Active 21247513 Problem Non-intractable cyclical vomiting with nausea G43.A0 Active 37754138 Problem Poor appetite R63.0 Active 33909982 Problem Mixed hyperlipidemia E78.2 Active 660318275 Problem GERD (gastroesophageal reflux disease) K21.9 Active 071338078 Problem Intrinsic asthma J45.909 Active 385806230 Problem Migraine G43.909 Active 55649180 Problem Bipolar affective disorder F31.9 Active 42123160 Problem Generalized anxiety disorder F41.1 Active 65399469 Problem 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 Active 328291113 ALLERGIES Substance Reaction Event Type Date Status Gabapentin *anticonvulsants* ; pt states it gives her body tremors Non Drug Allergy Feb, Active ENCOUNTERS Encounter Location Date Diagnosis [facility] [address] [place] [address] [place] [id number] Feb, Acquired immune deficiency syndrome B20 ; Generalized abdominal pain R10.84 and Wheezing on auscultation R06.2 [facility] [address] [place] [address] Jan, [facility] [address] [place] [address] Jan, [facility] [address] [place] [address] Jan, [facility] [address] [place] [address] Jan, GERD (gastroesophageal reflux disease) K21.9 and Oral thrush B37.0 [facility] [address] [place] [address] Jan, Anxiety F41.9 [facility] [address] [place] [address] Jan, [facility] [address] [place] [address] Dec, Oral thrush B37.0 and Poor appetite R63.0 [facility] [address] [place] [id number] Nov, Influenza vaccine refused Z28.21 ; Acquired immune deficiency syndrome B20 ; Anxiety F41.9 ; Noncompliance Z91.19 ; Oral thrush B37.0 and Chronic pain syndrome G89.4 [facility] [address] [place] [address] Nov, Backache M54.9 [facility] [address] [place] [address] Nov, Acquired immune deficiency syndrome B20 [facility] [address] [place] [address] Nov, Acquired immune deficiency syndrome B20 [facility] [address] [place] [address] Oct, [facility] [address] [place] [address] Oct, Backache M54.9 [facility] [address] [place] [address] Oct, [facility] [address] [place] [address] Oct, [facility] [address] [place] [address] Oct, [facility] [address] [place] [address] Oct, [facility] [address] [place] [address] Oct, Upper respiratory infection J06.9 and Backache M54.9 [facility] [address] [place] [address] Oct, Generalized anxiety disorder F41.1 and Backache M54.9 [facility] [address] [place] [address] Sep, Acquired immune deficiency syndrome B20 [facility] [address] [place] [address] Sep, [facility] [address] [place] [id number] Sep, Acquired immune deficiency syndrome B20 ; Intrinsic asthma J45.909 and Open wound T14.8XXA [facility] [address] [place] [address] Sep, [facility] [address] [place] [address] Sep, [facility] [address] [place] [address] Sep, [facility] [address] [place] [address] Sep, Poor appetite R63.0 [facility] [address] [place] [address] Sep, Backache M54.9 [facility] [address] [place] [address] Sep, [facility] [address] [place] [address] Aug, Generalized anxiety disorder F41.1 [facility] [address] [place] [address] Aug, [facility] [address] [place] [address] Aug, Backache M54.9 [facility] [address] [place] [address] Aug, [facility] [address] [place] [address] Aug, Spider bite T63.301A [facility] [address] [place] [address] Aug, [facility] [address] [place] [address] Aug, [facility] [address] [place] [address] Aug, [facility] [address] [place] [address] July, [facility] [address] [place] [address] July, [facility] [address] [place] [address] July, [facility] [address] [place] [address] July, [facility] [address] [place] [address] July, [facility] [address] [place] [address] July, Poor appetite R63.0 and Backache M54.9 [facility] [address] [place] [address] July, [facility] [address] [place] [address] July, [facility] [address] [place] [address] July, [facility] [address] [place] [address] July, [facility] [address] [place] [address] July, [facility] [address] [place] [address] July, Nausea and vomiting R11.2 [facility] [address] [place] [address] July, [facility] [address] [place] [address] July, [facility] [address] [place] [address] July, [facility] [address] [place] [address] July, [facility] [address] [place] [address] July, [facility] [address] [place] [address] July, Other chronic pain G89.29 [facility] [address] [place] [address] July, [facility] [address] [place] [address] July, GERD (gastroesophageal reflux disease) K21.9 [facility] [address] [place] [address] July, [facility] [address] [place] [address] Jun, [facility] [address] [place] [address] Jun, [facility] [address] [place] [address] Jun, [facility] [address] [place] [address] Jun, [facility] [address] [place] [address] Jun, Other chronic pain G89.29 [facility] [address] [place] [address] Jun, [facility] [address] [place] [address] Jun, [facility] [address] [place] [address] Jun, [facility] [address] [place] [address] Jun, [facility] [address] [place] [address] Jun, [facility] [address] [place] [address] Jun, Generalized anxiety disorder F41.1 ; Other chronic pain G89.29 and Non-intractable cyclical vomiting with nausea G43.A0 [address] [id number] Jun, Acquired immune deficiency syndrome B20 ; halfway ( current) use of opiate analgesic Z79.891 ; Nicotine dependence, cigarettes, uncomplicated F17.210 ; Lower respiratory infection J22 ; Poor appetite R63.0 ; Other chronic pain G89.29 ; Generalized anxiety disorder F41.1 and Need for tetanus booster Z23 [address] [address] Jun, [address] [address] May, Generalized abdominal pain R10.[address] [address] May, [address] [address] Apr, AIDS B20 ; Generalized abdominal pain R10.84 and Dysmenorrhea N94.[address] [address] Apr, Acute URI J06.[address] [address] Apr, [address] [address] Apr, [address] [id number] Apr, Acquired immune deficiency syndrome B20 ; 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.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 and Migraine G43.[address] [address] Mar, Dysmenorrhea N94.[address] [address] Mar, [address] [address] Mar, Generalized anxiety disorder F41.1 and Generalized abdominal pain R10.84 [facility] [address] [place] [address] Mar, [facility] [address] [place] [address] Mar, Generalized abdominal pain R10.84 and Generalized anxiety disorder F41.1 [facility] [address] [place] [address] Feb, [facility] [address] [place] [address] Feb, Generalized abdominal pain R10.84 [facility] [address] [place] [address] Jan, Nausea and vomiting R11.2 [facility] [address] [place] [address], [place] [address] 18 Jan, 2017 [facility] [address] [place] [address] 16 Jan, 2017 [facility] [address] [place] [address] Jan, [facility] [address] [place] [address] Jan, [facility] [address] [place] [address] Jan, [facility] [address] [place] [address] 08 Jan, 2017 Mood swings F39 [facility] [address] [place] [address] Jan, [facility] [address] [place] [address] Jan, [facility] [address] [place] [address] Jan, [facility] [address] [place] [address] Jan, Dysmenorrhea N94.6 [facility] [address] [place] [id number] Jan, Acquired immune deficiency syndrome B20 ; Generalized abdominal pain R10.84 and Refused influenza vaccine Z28.21 [facility] [address] [place] [address] Jan, [facility] [address] [place] [address] Dec, Generalized abdominal pain R10.84 [facility] [address] [place] [address] Dec, Dysmenorrhea N94.[address] [address] Dec, Backache M54.[address] [address] Nov, Generalized abdominal pain R10.[address] [address] Nov, Generalized anxiety disorder F41.[address] [address] Nov, Dysmenorrhea N94.[address] [address] Oct, [address] [address] Oct, [address] [address] Oct, [address] [address] Oct, Generalized abdominal pain R10.84 [facility] [address] [place] [id number] Oct, Acquired immune deficiency syndrome B20 ; 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6 [facility] [address] [place] [address] Sep, Generalized anxiety disorder F41.1 [facility] [address] [place] [address] Sep, Dysmenorrhea N94.6 [facility] [address] [place] [address] Sep, [facility] [address] [place] [address] Sep, Dysmenorrhea N94.6 [facility] [address] [place] [address] Aug, Acquired immune deficiency syndrome B20 [facility] [address] [place] [address] Aug, Generalized anxiety disorder F41.1 [facility] [address] [place] [address] Aug, [facility] [address] [place] [address] Aug, [facility] [address] [place] [address] Aug, [facility] [address] [place] [address] Aug, [facility] [address] [place] [address] Aug, [facility] [address] [place] [address] Aug, [facility] [address] [place] [address] Aug, [address] [address] Aug, Acute opioid withdrawal F11.[address] [address] July, Upper respiratory infection J06.[address] [address] July, Backache M54.9 [facility] [address] [place] [phone] July, Acquired immune deficiency syndrome B20 ; 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 ; Hyperglycemia R73.9 ; Bipolar affective disorder F31.9 ; GERD (gastroesophageal reflux disease) K21.9 ; Backache M54.9 ; Generalized anxiety disorder F41.1 ; Mixed hyperlipidemia E78.2 ; Nicotine dependence, cigarettes, uncomplicated F17.210 and Localized edema R60.[address] [address] July, [address] [address] Jun, Backache M54.[address] [address] Jun, Chronic pain G89.[address] [address] May, Backache M54.[address] [address] May, Backache M54.[address] [address] Apr, Cough R05 [facility] [address] [id number] Apr, Acquired immune deficiency syndrome B20 ; Screening examination for sexually transmitted disease Z11.3 ; Dermatitis L30.9 and Migraine with aura and with status migrainosus, not intractable G43.[address] [address] Apr, Backache M54.[address] [address] Mar, Intrinsic asthma J45.909 ; Nausea and vomiting R11.2 and AIDS B20 [address] [address] Mar, Backache M54.[address] [address] Feb, Chronic pain G89.[address] [address] Feb, Backache M54.[address] [address] Jan, [place] eye, 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 [address] Jan, Asthma, intrinsic 493.[address] [address] Jan, [address] [address] Jan, [address] [address] Jan, Backache M54.[address] [address] Dec, Chronic pain G89.29 [facility] [address] [place], [place] [id number] Dec, AIDS B20 ; Influenza vaccine needed Z23 ; Intrinsic asthma J45.909 ; Backache M54.9 ; Generalized anxiety disorder F41.1 ; Nicotine dependence, cigarettes, uncomplicated F17.210 and Mixed hyperlipidemia E78.[address] [address] Dec, [address] [address] Dec, Dysmenorrhea N94.[address] [address] Dec, [facility] [address] [place] [address] 17 Dec, 2015 Depression with anxiety F41.8 and Backache M54.9 [facility] [address] [place] [address] 19 Nov, 2015 [facility] [address] [place] [address] 19 Nov, 2015 Other chronic pain G89.29 [facility] [address] [place] [address] 18 Nov, 2015 Other chronic pain G89.29 [facility] [address] [place] [address] 18 Nov, 2015 [facility] [address] [place] [address] 14 Nov, 2015 Generalized anxiety disorder F41.1 [facility] [address] [place] [address] Nov, [facility] [address] [place] [address] Nov, [facility] [address] [place] [address] Nov, Chronic pain G89.29 [facility] [address] [place] [address] Oct, [facility] [address] [place] [address] Oct, Other chronic pain G89.29 [facility] [address] [place] [address] Oct, [facility] [address] [place] [address] Oct, [facility] [address] [place] [address] Oct, Nausea and vomiting R11.2 [facility] [address] [place] [address] Oct, Chronic pain G89.29 [facility] [address] [place] [address] Sep, [facility] [address] [place] [address] Sep, Acute upper respiratory infection, unspecified J06.9 [facility] [address] [place] [address] Sep, Upper respiratory infection J06.9 [facility] [address] [place] [address] Sep, [facility] [address] [place] [address] Sep, [facility] [address] [place] [address] Sep, Other chronic pain G89.29 [facility] [address] [place] [id number] Sep, AIDS B20 ; halfway (current) use of opiate analgesic Z79.891 ; Smoking F17.200 ; Mixed hyperlipidemia E78.2 ; Chronic pain G89.29 and Edema R60.9 [facility] [address] [place] [address] Sep, [facility] [address] [place] [address] Sep, [facility] [address] [place] [address] Aug, [facility] [address] [place] [address] Aug, Other chronic pain G89.29 [facility] [address] [place] [address] Aug, Generalized anxiety disorder F41.1 [facility] [address] [place] [address] July, Other chronic pain G89.29 [facility] [address] [place] [address] July, Other chronic pain G89.29 [facility] [address] [place] [address] July, [facility] [address] [place] [address] Jun, Generalized anxiety disorder F41.1 [facility] [address] [place] [address] Jun, [facility] [address] [place] [address] Jun, Other chronic pain G89.29 [facility] [address] [place] [address] Jun, Rash and other nonspecific skin eruption R21 [facility] [address] [place] [address] Jun, [facility] [address] [place] [address] Jun, [facility] [address] [place] [address] Jun, [facility] [address] [place] [address] Jun, [facility] [address] [place] [address] Jun, [facility] [address] [place] [address] Jun, [facility] [address] [place] [address] Jun, [facility] [address] [place] [address] Jun, Other chronic pain G89.29 [facility] [address] [place] [address] Jun, [facility] [address] [place] [address] Jun, [facility] [address] [place] [address] Jun, [facility] [address] [place] [address] Jun, [facility] [address] [place] [address] Jun, [facility] [address] [place] [address] Jun, [facility] [address] [place] [address] Jun, [facility] [address] [place] [address] Jun, [facility] [address] [place] [address] Jun, [facility] [address] [place] [address] Jun, Nausea and vomiting R11.2 [facility] [address] [place] [address] 24 May, 2015 [facility] [address] [place] [address] May, Rash and other nonspecific skin eruption R21 [facility] [address] [place] [address] May, [facility] [address] [place] [address] May, [facility] [address] [place] [address] May, [facility] [address] [place] [address] May, [facility] [address] [place] [address] May, [facility] [address] [place] [address] May, Acquired immune deficiency syndrome B20 ; Screening examination for sexually transmitted disease Z11.3 ; Depression with anxiety F41.8 ; Other chronic pain G89.29 and Dermatitis L30.9 [facility] [address] [place] [address] May, [facility] [address] [place] [address] May, [facility] [address] [place] [address] May, [facility] [address] [place] [address] May, Backache M54.9 [facility] [address] [place] [address] May, Rash and other nonspecific skin eruption R21 [facility] [address] [place] [address] Apr, [facility] [address] [place] [address] Apr, [facility] [address] [place] [address] Apr, Other chronic pain G89.29 [facility] [address] [place] [address] Apr, [facility] [address] [place] [address] Apr, [facility] [address] [place] [address] Apr, [facility] [address] [place] [address] Apr, [facility] [address] [place] [address] Apr, [facility] [address] [place] [address] Apr, [facility] [address] [place] [address] Apr, [facility] [address] [place] [address] Apr, [facility] [address] [place] [address] Apr, [facility] [address] [place] [address] Apr, [facility] [address] [place] [address] Apr, Other chronic pain G89.29 ; Generalized anxiety disorder F41.1 ; Nausea R11.0 and AIDS B20 [facility] [address] [place] [address] Apr, [facility] [address] [place] [address] Apr, Generalized anxiety disorder F41.1 [facility] [address] [place] [address] Apr, [facility] [address] [place] [address] Apr, Other chronic pain G89.29 [facility] [address] [place] [address] Mar, [facility] [address] [place] [address] Mar, 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 ; Bipolar affective disorder F31.9 ; Smoking F17.200 ; Generalized anxiety disorder F41.1 ; Influenza vaccine administered Z23 and AIDS B20 [facility] [address] [place] [address] Mar, Other chronic pain G89.[address] [address] Mar, Generalized anxiety disorder F41.1 [facility] [address] [place] [address] Mar, [facility] [address] [place] [address] Mar, Asymptomatic HIV infection Z21 [facility] [address] [place] [address] Mar, Other chronic pain G89.[address] [address] Feb, [facility] [address] [place] [address] Feb, [facility] [address] [place] [address] Feb, [facility] [address] [place] [address] Feb, [facility] [address] [place] [address] Feb, [facility] [address] [place] [address] Jan, Other chronic pain G89.29 and Nausea & vomiting R11.2 [facility] [address] Jan, Other chronic pain G89.[address] [address] Dec, [address] [address] Dec, Other chronic pain G89.29 ; Asymptomatic HIV infection Z21 ; Intrinsic asthma J45.909 ; Bipolar affective disorder F31.9 ; Noncompliance Z91.19 ; Migraine G43.909 ; Tobacco use disorder Z72.0 ; GERD (gastroesophageal reflux disease) K21.9 ; Backache M54.9 and Generalized anxiety disorder F41.[address] [address] Nov, [address] [address] Nov, [address] [address] Oct, Other chronic pain 338.[address] [address] Oct, [address] [address] Oct, Unspecified backache 724.5 and Dysphagia 787.[address] [address] Sep, Other chronic pain 338.[address] [address] Sep, [address] [address] Aug, URI (upper respiratory infection) 465.9 and Diarrhea 787.[address] [address] Aug, [address] [address] Aug, Other chronic pain 338.[address] [address] Aug, Other chronic pain 338.29 and Generalized anxiety disorder 300.[address] [address] Aug, [address] [address] July, Other chronic pain 338.29 [facility] [address] [facility] [place], [place] [id number] July, Nondependent tobacco use disorder 305.1 ; Unspecified backache 724.5 ; Other chronic pain 338.29 ; Abdominal pain, unspecified site 789.00 ; halfway (current) use of opiate analgesic V58.69 and Acquired immune deficiency syndrome [address] [address] July, Other chronic pain 338.[address] [address] Jun, Other chronic pain 338.[address] [address] Jun, [address] [address] Jun, Other chronic pain 338.[address] [address] Jun, URI (upper respiratory infection) 465.[address] [address] Jun, Generalized anxiety disorder 300.02 and Seasonal allergies 477.[address] [address] Jun, Generalized anxiety disorder 300.[address] [address] May, Other chronic pain 338.[address] [address] May, Other chronic pain 338.29 and Generalized anxiety disorder 300.[address] [address] Apr, Asthma, intrinsic 493.10 and Acute upper respiratory infections of other multiple sites 465.8 [facility] [address] [place] [address] Apr, [facility] [address] [facility] [address] [place] [id number] Apr, Depressive disorder 311 [facility] [address] [place] [address] Apr, Other chronic pain 338.29 [facility] [address] [place] [address] Apr, [facility] [address] [place] [address] Apr, Other chronic pain 338.29 [facility] [address] [place] [address] Mar, Acute upper respiratory infections of unspecified site 465.9 [facility] [address] [place] [id number] Mar, Migraine 346.90 ; Nondependent tobacco use disorder 305.1 ; Esophageal reflux 530.81 ; Unspecified backache 724.5 ; Abdominal pain, generalized 789.07 ; Flatulence, eructation, and gas pain 787.3 ; Asymptomatic human immunodeficiency virus (HIV) infection status V08 ; Dyspepsia and other specified disorders of function of stomach 536.8 ; Nausea alone 787.02 and Asthma 493.90 [facility] [address] [place] [address] Mar, Other chronic pain 338.29 [facility] [address] [place] [address] Feb, Other chronic pain 338.29 and Generalized anxiety disorder 300.[address] [address] Feb, Abdominal pain, generalized 789.[address] [address] Jan, Abdominal pain, generalized 789.07 [facility] [address] [id number] Dec, [address] [place] [address] Dec, [facility] [address] [place] [address] Dec, Unspecified backache 724.5 [facility] [address] [place] [address] Dec, [facility] [address] [place] [address] Nov, [facility] [place] [facility] [address] [facility] [address] [place] [id number] Nov, [facility] [address] [facility] [place] [phone] Nov, Bipolar disorder, unspecified 296.80 ; Abdominal pain, generalized 789.07 ; Generalized anxiety disorder 300.02 ; Nausea alone 787.02 ; Flu vaccine need V04.81 and Human immunodeficiency virus (HIV) disease 042 [facility] [address] [place] [address] Nov, [facility] [facility] [address] [facility] [address] [place], [place] [phone] Oct, [facility] [place] [facility] [address] [facility] [address] [place], [place] [phone] Oct, [facility] [address] [facility] [address] [place], [place] [id number] Aug, [facility] [address] [place] [address] Jun, [facility] [address] [place] [address] Mar, [facility] [address] [place] [address] Oct, [facility] [address] [place] [address] July, [facility] [address] [place] [address] Jun, [facility] [address] [place] [address] May, [facility] [address] [place] [address] Mar, [facility] [address] [place] [address] Feb, [facility] [address] [place] [address] Nov, [facility] [address] [place] [address] Oct, [facility] [address] [place] [address] Aug, [facility] [address] [place] [address] May, [facility] [address] [place] [address] Mar, IMMUNIZATIONS No Known Immunizations SOCIAL HISTORY Never Assessed REASON FOR VISIT HIV follow-up PLAN OF CARE Activity Details Follow Up 2 Months Reason: Pending Test Human Immunodeficiency Virus (HIV-1), Quantitative, Real-time PCR (graph) 27601 Pending Test Rapid Plasma Reagin (RPR), Test w/ Reflex to Quant RPR/Confirm Treponema pallidum Antibodies 84981 Pending Test Metabolic Panel (14), Comprehensive (CMP) 44070 Pending Test CD4/CD8 Ratio Profile [address] Scan : Abdomen and Pelvis with IV and oral contrast VITAL SIGNS Height 65 in 2018-02-19 Weight 139 lbs 2018-02-19 Temperature 98.1 degrees Fahrenheit 2018-02-19 Heart Rate 67 /min 2018-02-19 Respiratory Rate 18 /min 2018-02-19 Oximetry 93 % 2018-02-19 BMI 23.13 kg/m2 2018-02-19 Blood pressure systolic 110 mm Hg 2018-02-19 Blood pressure diastolic 78 mm Hg 2018-02-19 MEDICATIONS Medication Instructions Dosage Frequency Start Date End Date Duration Status Methocarbamol 500 TAKE ONE AND ONE-HALF (1 & 1/2) TABLET BY MOUTH EVERY 8 HOURS FOR 10 DAYS 30 Active Zithromax Z-Riky 250 MG Orally Once a day 1 tablet 24h May, 30 days Active Genvoya [phone] MG Orally daily as directed 24h 28 Nov, 2017 30 days Active PredniSONE 5 MG Orally Once a day as directed, 6 tabs day 1, 5 tabs day 2, 4 tabs day 3, 3 tabs day 4, 2 tabs day 5, 1 tab day 6 24h 07 Feb, 2018 30 day(s) Active Zofran 4 MG Orally every 6 hours prn TAKE ONE TABLET BY MOUTH EVERY 8 HOURS FOR 10 DAYS 30 days Active Dicyclomine HCl 20 MG Orally three times a day 1 tablet 8h 12 Jul, 2016 30 day(s) Active Montelukast Sodium 10 MG Orally Once a day 1 tablet in the evening 24h July, 30 day(s) Active Marinol 10 MG Orally three times a day 1 capsule before lunch and supper 8h Jun, 30 days Active Ventolin HFA 108 (90 Base) MCG/ACT Inhalation every 4 hrs 2 puffs as needed 4h Oct, 30 days Active Dapsone 100 MG Orally Once a day 1 tablet 24h 24 Apr, 2015 30 days Active HydrOXYzine HCl 25 MG Orally every 12 hrs 1 tablet 12h Jan, 30 day(s) Active Fluconazole 200 MG Orally Once a day 1 tablet 24h 28 Nov, 2017 14 days Active Promethazine HCl 25 MG Orally three times a day 1 tablet as needed 8h 20 Mar, 2016 30 day(s) Active Omeprazole 40 MG Orally Once a day 1 capsule 24h July, 30 day(s ) Active Diflucan 150 Orally Once a day 1 tablet 24h 5 Active Tramadol HCl 50 MG Orally every 12 hrs 2 tablet as needed 12h Sep, 30 days Active RESULTS No Results PROCEDURES Procedure Date Ordered Result Body Site T CELL, ABSOLUTE COUNT/RATIO Feb 19, 2018 COMPREHEN METABOLIC PANEL Feb 19, 2018 HIV-1, DNA, QUANT Feb 19, 2018 BLOOD SEROLOGY, QUALITATIVE Feb 19, 2018 INSTRUCTIONS MEDICATIONS ADMINISTERED No Known Medications MEDICAL [...]
--- OUTSIDE RECORDS SUMMARY | 2018-03-22 13:40 | XMS REPORT ---
Author Author Dulce Herrera [facility] Address [address], [place] [id number] Care Team Providers Care Recovery Collector Name Role Phone Dulce Herrera Unavailable PROBLEMS Type Condition ICD9-CM Code [id number] Code Onset Dates Condition Status SNOMED Code Problem Nicotine dependence, cigarettes, uncomplicated F17.210 Active 54514343 Problem Wheezing on auscultation R06.2 Active 998612654 Problem Acquired immune deficiency syndrome B20 Active 48577056 Problem Anxiety F41.9 Active 40809180 Problem Chronic pain syndrome G89.4 Active 845490267 Problem Other chronic pain G89.29 Active 20429638 Problem Mood swings F39 Active 07288783 Problem Non-intractable cyclical vomiting with nausea G43.A0 Active 60000476 Problem Poor appetite R63.0 Active 51053894 Problem Mixed hyperlipidemia E78.2 Active 035709810 Problem GERD (gastroesophageal reflux disease) K21.9 Active 479847213 Problem Intrinsic asthma J45.909 Active 484463695 Problem Migraine G43.909 Active 43577988 Problem Bipolar affective disorder F31.9 Active 31064404 Problem Generalized anxiety disorder F41.1 Active 83015790 Problem terminologist (current) use of opiate analgesic Z79.891 Active 905618225 ALLERGIES No Information ENCOUNTERS Encounter Location Date Diagnosis [address] [id number] Feb, [address] [address] Jan, Anxiety F41.[address] [address] Jan, [address] [address] Dec, Oral thrush B37.0 and Poor appetite R63.0 [facility] [address] [place] [id number] Nov, Influenza vaccine refused Z28.21 ; Acquired immune deficiency syndrome B20 ; Anxiety F41.9 ; Noncompliance Z91.19 ; Oral thrush B37.0 and Chronic pain syndrome G89.[address] [facility] [address] [place] [address] Nov, Backache M54.[address] [facility] [address] [place] [address] Nov, Acquired immune deficiency syndrome B20 [facility] [address] [place] [address] Nov, Acquired immune deficiency syndrome B20 [facility] [address] [place] [address] Oct, [facility] [address] [place] [address] Oct, Backache M54.[address] [facility] [address] [place] [address] Oct, [facility] [address] [place] [address] Oct, [facility] [address] [place] [address] Oct, [facility] [address] [place] [address] Oct, [facility] [address] [place] [address] Oct, Upper respiratory infection J06.9 and Backache M54.[address] [facility] [address] [place] [address] Oct, Generalized anxiety disorder F41.1 and Backache M54.[address] [facility] [address] [place] [address] Sep, Acquired immune deficiency syndrome B20 [facility] [address] [place] [address] Sep, [facility] [address] [place] [id number] Sep, Acquired immune deficiency syndrome B20 ; Intrinsic asthma J45.909 and Open wound T14.8XXA [facility] [address] [place] [address] Sep, [facility] [address] [place] [address] Sep, [facility] [address] [place] [address] Sep, [facility] [address] [place] [address] Sep, Poor appetite R63.0 [facility] [address] [place] [address] Sep, Backache M54.9 [facility] [address] [place] [address] Sep, [facility] [address] [place] [address] Aug, Generalized anxiety disorder F41.1 [facility] [address] [place] [address] Aug, [facility] [address] [place] [address] Aug, Backache M54.9 [facility] [address] [place] [address] Aug, [facility] [address] [place] [address] Aug, Spider bite T63.301A [facility] [address] [place] [address] Aug, [facility] [address] [place] [address] Aug, [facility] [address] [place] [address] Aug, [facility] [address] [place] [address] July, [facility] [address] [place] [address] July, [facility] [address] [place] [address] July, [facility] [address] [place] [address] July, [facility] [address] [place] [address] July, [facility] [address] [place] [address] July, Poor appetite R63.0 and Backache M54.9 [facility] [address] [place] [address] July, [facility] [address] [place] [address] July, [facility] [address] [place] [address] July, [facility] [address] [place] [address] July, [facility] [address] [place] [address] July, [facility] [address] [place] [address] July, Nausea and vomiting R11.2 [facility] [address] [place] [address] July, [facility] [address] [place] [address] July, [facility] [address] [place] [address] July, [facility] [address] [place] [address] July, [facility] [address] [place] [address] July, [facility] [address] [place] [address] July, Other chronic pain G89.29 [facility] [address] [place] [address] July, [facility] [address] [place] [address] July, GERD (gastroesophageal reflux disease) K21.9 [facility] [address] [place] [address] July, [facility] [address] [place] [address] Jun, [facility] [address] [place] [address] Jun, [facility] [address] [place] [address] Jun, [facility] [address] [place] [address] Jun, [facility] [address] [place] [address] Jun, Other chronic pain G89.29 [facility] [address] [place] [address] Jun, [facility] [address] [place] [address] Jun, [facility] [address] [place] [address] Jun, [facility] [address] [place] [address] Jun, [facility] [address] [place] [address] Jun, [facility] [address] [place] [address] Jun, Generalized anxiety disorder F41.1 ; Other chronic pain G89.29 and Non-intractable cyclical vomiting with nausea G43.A0 [facility] [address] [place] [id number] Jun, Acquired immune deficiency syndrome B20 ; terminologist ( current) use of opiate analgesic Z79.891 ; Nicotine dependence, cigarettes, uncomplicated F17.210 ; Lower respiratory infection J22 ; Poor appetite R63.0 ; Other chronic pain G89.29 ; Generalized anxiety disorder F41.1 and Need for tetanus booster Z23 [facility] [address] [place] [address] Jun, [facility] [address] [place] [address] May, Generalized abdominal pain R10.[address] [facility] [address] [place] [address] May, [address] [address] Apr, AIDS B20 ; Generalized abdominal pain R10.84 and Dysmenorrhea N94.[address] [address] Apr, Acute URI J06.[address] [address] Apr, [address] [address] Apr, [facility] [address] [place] [id number] Apr, Acquired immune deficiency syndrome B20 ; FCI ( current) use of opiate analgesic Z79.891 and Migraine G43.[address] [address] Mar, Dysmenorrhea N94.[address] [address] Mar, [address] [address] Mar, Generalized anxiety disorder F41.1 and Generalized abdominal pain R10.[address] [address] Mar, [address] [address] Mar, Generalized abdominal pain R10.84 and Generalized anxiety disorder F41.[address] [address] Feb, [address] [address] Feb, Generalized abdominal pain R10.[address] [address] Jan, Nausea and vomiting R11.2 [facility] [address] [place] [address] 18 Jan, 2017 [facility] [address] [place] [address] Jan, [facility] [address] [place] [address] Jan, [facility] [address] [place] [address] Jan, [facility] [address] [place] [address] Jan, [facility] [address] [place] [address] Jan, Mood swings F39 [facility] [address] [place] [address] 08 Jan, 2017 [facility] [address] [place] [address] Jan, [facility] [address] [place] [address] Jan, [facility] [address] [place] [address] Jan, Dysmenorrhea N94.6 [facility] [address] [place] [phone] Jan, Acquired immune deficiency syndrome B20 ; Generalized abdominal pain R10.84 and Refused influenza vaccine Z28.21 [facility] [address] [place] [address] Jan, [facility] [address] [place] [address] Dec, Generalized abdominal pain R10.84 [facility] [address] [place] [address] Dec, Dysmenorrhea N94.6 [facility] [address] [place] [address] Dec, Backache M54.9 [facility] [address] [place] [address] Nov, Generalized abdominal pain R10.84 [facility] [address] [place] [address] Nov, Generalized anxiety disorder F41.[address] [address] Nov, Dysmenorrhea N94.[address] [address] Oct, [address] [address] Oct, [address] [address] Oct, [address] [address] Oct, Generalized abdominal pain R10.84 [facility] [address] [place] [id number] Oct, Acquired immune deficiency syndrome B20 ; FCI 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 Z79.891 ; Bipolar affective disorder F31.9 ; Generalized anxiety disorder F41.1 ; Backache M54.9 ; Mixed hyperlipidemia E78.2 ; Nicotine dependence, cigarettes, uncomplicated F17.210 and Wheezing on auscultation R06.[address] [address] Oct, Oral candidiasis B37.[address] [address] Oct, [address] [address] Oct, Acute upper respiratory infection J06.[address] [address] Oct, Acute upper respiratory infection J06.[address] [address] Sep, Dysmenorrhea N94.[address] [address] Sep, Generalized anxiety disorder F41.[address] [address] Sep, Dysmenorrhea N94.6 [facility] [address] [place] [address] Sep, [facility] [address] [place] [address] Sep, Dysmenorrhea N94.6 [facility] [address] [place] [address] Aug, Acquired immune deficiency syndrome B20 [facility] [address] [place] [address] Aug, Generalized anxiety disorder F41.1 [facility] [address] [place] [address] Aug, [facility] [address] [place] [address] Aug, [facility] [address] [place] [address] Aug, [facility] [address] [place] [address] Aug, [facility] [address] [place] [address] Aug, [facility] [address] [place] [address] Aug, [facility] [address] [place] [address] Aug, [facility] [address] [facility] [place] [address] Aug, Acute opioid withdrawal F11.23 [facility] [address] [place] [address] July, Upper respiratory infection J06.9 [facility] [address] [place] [address] July, Backache M54.9 [facility] [address] [place] [id number] July, Acquired immune deficiency syndrome B20 ; terminologist 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 Z79.891 ; Hyperglycemia R73.9 ; Bipolar affective disorder F31.9 ; GERD (gastroesophageal reflux disease) K21.9 ; Backache M54.9 ; Generalized anxiety disorder F41.1 ; Mixed hyperlipidemia E78.2 ; Nicotine dependence, cigarettes, uncomplicated F17.210 and Localized edema R60.[address] [address] July, [address] [address] Jun, Backache M54.[address] [address] Jun, Chronic pain G89.[address] [address] May, Backache M54.[address] [address] May, Backache M54.[address] [address] Apr, Cough R05 [facility] [address] [place] [phone] Apr, Acquired immune deficiency syndrome B20 ; Screening examination for sexually transmitted disease Z11.3 ; Dermatitis L30.9 and Migraine with aura and with status migrainosus, not intractable G43.[address] [address] Apr, Backache M54.[address] [address] Mar, Intrinsic asthma J45.909 ; Nausea and vomiting R11.2 and AIDS B20 [address] [address] Mar, Backache M54.[address] [address] Feb, Chronic pain G89.[address] [address] Feb, Backache M54.[address] [address] Jan, [place] [facility], 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 [facility] [address] [place] [address] Jan, Asthma, intrinsic 493.[address] [facility] [address] [place] [address] Jan, [facility] [address] [place] [address] Jan, [facility] [address] [place] [address] Jan, Backache M54.[address] [facility] [address] [place] [address] 30 Dec, 2015 Chronic pain G89.29 [facility] [address] [place] [id number] Dec, AIDS B20 ; Influenza vaccine needed Z23 ; Intrinsic asthma J45.909 ; Backache M54.9 ; Generalized anxiety disorder F41.1 ; Nicotine dependence, cigarettes, uncomplicated F17.210 and Mixed hyperlipidemia E78.[address] [facility] [address] [place] [address] Dec, [address] [address] Dec, Dysmenorrhea N94.[address] [address] 18 Dec, [address] [address] 17 Dec, 2015 Depression with anxiety F41.8 and Backache M54.[address] [facility] [address] [place] [address] 19 Nov, [address] [facility] [address] [place] [address] 19 Nov, 2015 Other chronic pain G89.[address] [address] 18 Nov, 2015 Other chronic pain G89.[address] [address] 18 Nov, [address] [address] 14 Nov, 2015 Generalized anxiety disorder F41.1 [facility] [address] [place] [address] Nov, [facility] [address] [place] [address] Nov, [facility] [address] [place] [address] Nov, Chronic pain G89.29 [facility] [address] [place] [address] Oct, [facility] [address] [place] [address] Oct, Other chronic pain G89.29 [facility] [address] [place] [address] Oct, [facility] [address] [place] [address] Oct, [facility] [address] [place] [address] Oct, Nausea and vomiting R11.2 [facility] [address] [place] [address] Oct, Chronic pain G89.29 [facility] [address] [place] [address] Sep, [facility] [address] [place] [address] Sep, Acute upper respiratory infection, unspecified J06.9 [facility] [address] [place] [address] Sep, Upper respiratory infection J06.9 [facility] [address] [place] [address] Sep, [facility] [address] [place] [address] Sep, [facility] [address] [place] [address] Sep, Other chronic pain G89.29 [facility] [address] [facility] [place] [id number] Sep, AIDS B20 ; terminologist (current) use of opiate analgesic Z79.891 ; Smoking F17.200 ; Mixed hyperlipidemia E78.2 ; Chronic pain G89.29 and Edema R60.[address] [facility] [address] [place] [address] Sep, [facility] [address] [place] [address] Sep, [facility] [address] [place] [address] Aug, [facility] [address] [place] [address] Aug, Other chronic pain G89.29 [facility] [address] [place] [address] Aug, Generalized anxiety disorder F41.[address] [facility] [address] [place] [address] July, Other chronic pain G89.[address] [facility] [address] [place] [address] July, Other chronic pain G89.29 [facility] [address] [place] [address] July, [facility] [address] [place] [address] Jun, Generalized anxiety disorder F41.[address] [facility] [address] [place] [address] Jun, [facility] [address] [place] [address] Jun, Other chronic pain G89.29 [facility] [address] [place] [address] Jun, Rash and other nonspecific skin eruption R21 [facility] [address] [place] [address] Jun, [facility] [address] [place] [address] Jun, [facility] [address] [place] [address] Jun, [facility] [address] [place] [address] Jun, [facility] [address] [place] [address] Jun, [facility] [address] [place] [address] Jun, [facility] [address] [place] [address] Jun, [facility] [address] [place] [address] Jun, Other chronic pain G89.29 [facility] [address] [place] [address] Jun, [facility] [address] [place] [address] Jun, [facility] [address] [place] [address] Jun, [facility] [address] [place] [address] Jun, [facility] [address] [place] [address] Jun, [facility] [address] [place] [address] Jun, [facility] [address] [place] [address] Jun, [facility] [address] [place] [address] Jun, [facility] [address] [place] [address] Jun, [facility] [address] [place] [address] Jun, Nausea and vomiting R11.2 [facility] [address] [place] [address] May, [facility] [address] [place] [address] May, Rash and other nonspecific skin eruption R21 [facility] [address] [place] [address] May, [facility] [address] [place] [address] May, [facility] [address] [place] [address] May, [facility] [address] [place] [address] May, [facility] [address] [place] [address] May, [facility] [address] [place] [id number] May, Acquired immune deficiency syndrome B20 ; Screening examination for sexually transmitted disease Z11.3 ; Depression with anxiety F41.8 ; Other chronic pain G89.29 and Dermatitis L30.9 [facility] [address] [place] [address] May, [facility] [address] [place] [address] May, [facility] [address] [place] [address] May, [facility] [address] [place] [address] May, Backache M54.9 [facility] [address] [address] May, Rash and other nonspecific skin eruption R21 [facility] [address] [place] [address] Apr, [facility] [address] [place] [address] Apr, [facility] [address] [place] [address] Apr, Other chronic pain G89.29 [facility] [address] [place] [address] Apr, [facility] [address] [place] [address] Apr, [facility] [address] [place] [address] Apr, [facility] [address] [place] [address] Apr, [facility] [address] [facility] [place] [address] Apr, [facility] [address] [place] [address] Apr, [facility] [address] [place] [address] Apr, [facility] [address] [facility] [place] [address] Apr, [facility] [address] [facility] [place] [address] Apr, [facility] [address] [place] [address] Apr, [facility] [address] [place] [address] Apr, Other chronic pain G89.29 ; Generalized anxiety disorder F41.1 ; Nausea R11.0 and AIDS B20 [facility] [address] [place] [address] Apr, [facility] [address] [place] [address] Apr, Generalized anxiety disorder F41.[address] [facility] [address] [place] [address] Apr, [facility] [address] [place] [address] Apr, Other chronic pain G89.[address] [facility] [address] [place] [address] Mar, [facility] [address] [place] [id number] Mar, terminologist (current) use of opiate analgesic Z79.891 ; Bipolar affective disorder F31.9 ; Smoking F17.200 ; Generalized anxiety disorder F41.1 ; Influenza vaccine administered Z23 and AIDS B20 [facility] [address] [place] [address] Mar, Other chronic pain G89.29 [facility] [address] [place] [address] Mar, Generalized anxiety disorder F41.[address] [facility] [address] [place] [address] Mar, [facility] [address] [place] [facility] [place] [address] Mar, Asymptomatic HIV infection Z21 [facility] [address] [place] [address] Mar, Other chronic pain G89.29 [facility] [address] [place] [address] Feb, [facility] [address] [place] [address] Feb, [facility] [address] [place] [address] Feb, [facility] [address] [place] [address] Feb, [facility] [address] [place] [address] Feb, [facility] [address] [place] [address] Jan, Other chronic pain G89.29 and Nausea & vomiting R11.[address] [facility] [address] [place] [address] Jan, Other chronic pain G89.[address] [facility] [address] [place] [address] Dec, [facility] [address] [place] [address] Dec, Other chronic pain G89.29 ; Asymptomatic HIV infection Z21 ; Intrinsic asthma J45.909 ; Bipolar affective disorder F31.9 ; Noncompliance Z91.19 ; Migraine G43.909 ; Tobacco use disorder Z72.0 ; GERD (gastroesophageal reflux disease) K21.9 ; Backache M54.9 and Generalized anxiety disorder F41.[address] [facility] [address] [place] [address] Nov, [facility] [address] [place] [address] Nov, [facility] [address] [place] [address] Oct, Other chronic pain 338.[address] [address] Oct, [address] [address] Oct, Unspecified backache 724.5 and Dysphagia 787.[address] [address] Sep, Other chronic pain 338.[address] [address] Sep, [address] [address] Aug, URI (upper respiratory infection) 465.9 and Diarrhea 787.[address] [address] Aug, [address] [address] Aug, Other chronic pain 338.[address] [address] Aug, Other chronic pain 338.29 and Generalized anxiety disorder 300.[address] [address] Aug, [address] [address] July, Other chronic pain 338.29 [facility] [address] [facility] [place] [id number] July, Nondependent tobacco use disorder 305.1 ; Unspecified backache 724.5 ; Other chronic pain 338.29 ; Abdominal pain, unspecified site 789.00 ; terminologist (current) use of opiate analgesic V58.69 and Acquired immune deficiency syndrome [address] [address] July, Other chronic pain 338.[address] [facility] [address] [place] [address] Jun, Other chronic pain 338.[address] [facility] [address] [place] [address] Jun, [facility] [address] [place] [address] Jun, Other chronic pain 338.[address] [facility] [address] [place] [address] Jun, URI (upper respiratory infection) 465.[address] [facility] [address] [place] [address] Jun, Generalized anxiety disorder 300.02 and Seasonal allergies 477.[address] [facility] [address] [place] [address] Jun, Generalized anxiety disorder 300.[address] [facility] [address] [place] [address] May, Other chronic pain 338.[address] [facility] [address] [place] [address] May, Other chronic pain 338.29 and Generalized anxiety disorder 300.[address] [facility] [address] [place] [address] Apr, Asthma, intrinsic 493.10 and Acute upper respiratory infections of other multiple sites 465.[address] [facility] [address] [place] [address] Apr, [facility] [address] [facility] [address] [place] [id number] Apr, Depressive disorder [address] [facility] [address] [place] [address] Apr, Other chronic pain 338.[address] [facility] [address] [place] [address] Apr, [facility] [address] [place] [address] Apr, Other chronic pain 338.29 [facility] [address] 14 Mar, 2014 Acute upper respiratory infections of unspecified site 465.9 [facility] [address] [place] [id number] Mar, Migraine 346.90 ; Nondependent tobacco use disorder 305.1 ; Esophageal reflux 530.81 ; Unspecified backache 724.5 ; Abdominal pain, generalized 789.07 ; Flatulence, eructation, and gas pain 787.3 ; Asymptomatic human immunodeficiency virus (HIV) infection status V08 ; Dyspepsia and other specified disorders of function of stomach 536.8 ; Nausea alone 787.02 and Asthma 493.[address] [address] Mar, Other chronic pain 338.[address] [address] Feb, Other chronic pain 338.29 and Generalized anxiety disorder 300.[address] [address] Feb, Abdominal pain, generalized 789.[address] [address] Jan, Abdominal pain, generalized 789.07 [facility] [address] [place] [id number] Dec, [address] [address] Dec, [address] [address] Dec, Unspecified backache 724.[address] [address] Dec, [address] [address] Nov, [facility] [address] [facility] [address] [place] [id number] Nov, [facility] [address] [facility] [place] [id number] Nov, Bipolar disorder, unspecified 296.80 ; Abdominal pain, generalized 789.07 ; Generalized anxiety disorder 300.02 ; Nausea alone 787.02 ; Flu vaccine need V04.81 and Human immunodeficiency virus (HIV) disease 042 [facility] [address] [place] [address] Nov, [facility] [facility] [address] [facility] [address] [place] [id number] Oct, [facility] [address] [facility] [address] [place] [id number] Oct, [facility] [address] [facility] [address] [place] [id number] Aug, [facility] [address] [place] [facility] [place] [address] Jun, [facility] [address] [place] [facility] [place] [address] Mar, [facility] [address] [place] [facility] [place] [address] Oct, [facility] [address] [place] [facility] [place] [address] July, [facility] [address] [place] [address] Jun, [facility] [address] [place] [facility] [place] [address] May, [facility] [address] [place] [address] Mar, [facility] [address] [place] [address] Feb, [facility] [address] [place] [address] Nov, [facility] [address] [place] [address] Oct, [facility] [address] [place] [facility] [place] [address] Aug, [facility] [address] [place] [address] May, [facility] [address] [place] [facility] [place] [address] Mar, IMMUNIZATIONS No Known Immunizations SOCIAL HISTORY Never Assessed REASON FOR VISIT Anxiety PLAN OF CARE VITAL SIGNS MEDICATIONS Medication Instructions Dosage Frequency Start Date End Date Duration Status Montelukast Sodium 10 MG Orally Once a day 1 tablet in the evening 24h July, 30 day(s) Active Methocarbamol 500 TAKE ONE AND ONE-HALF (1 & 1/2) TABLET BY MOUTH EVERY 8 HOURS FOR 10 DAYS 30 Active Promethazine HCl 25 MG Orally three times a day 1 tablet as needed 8h Mar, 30 day(s) Active Omeprazole 40 MG Orally Once a day 1 capsule 24h July, 30 day(s ) Active Genvoya [id number] MG Orally daily as directed 24h Nov, 30 days Active Marinol 10 MG Orally three times a day 1 capsule before lunch and supper 8h Jun, 30 days Active Tramadol HCl 50 MG Orally every 12 hrs 2 tablet as needed 12h Sep, 30 days Active Fluconazole 200 MG Orally Once a day 1 tablet 24h Nov, 14 days Active Dapsone 100 MG Orally Once a day 1 tablet 24h 24 Apr, 2015 30 days Active Ventolin HFA 108 (90 Base) MCG/ACT Inhalation every 4 hrs 2 puffs as needed 4h Oct, 30 days Active Zofran 4 MG Orally every 6 hours prn TAKE ONE TABLET BY MOUTH EVERY 8 HOURS FOR 10 DAYS 30 days Active Diflucan 150 Orally Once a day 1 tablet 24h 5 Active HydrOXYzine HCl 25 MG Orally every 12 hrs 1 tablet 12h Jan, 30 day(s) Active Zithromax Z-Riky 250 MG Orally Once a day 1 tablet 24h May, 30 days Active RESULTS No Results PROCEDURES [...]
--- OUTSIDE RECORDS SUMMARY | 2018-03-22 13:41 | XMS REPORT ---
Author Author Dulce Herrera [facility] Address [address] [place] [address], [place] [id number] Care Team Providers Care Audio Video Mechanic Name Role Phone Dulce Herrera Unavailable PROBLEMS Type Condition ICD9-CM Code [id number] Code Onset Dates Condition Status SNOMED Code Problem Nicotine dependence, cigarettes, uncomplicated F17.210 Active 77730662 Problem Wheezing on auscultation R06.2 Active 432646444 Problem Acquired immune deficiency syndrome B20 Active 92475481 Problem Anxiety F41.9 Active 57247504 Problem Chronic pain syndrome G89.4 Active 376600851 Problem Other chronic pain G89.29 Active 67098087 Problem Mood swings F39 Active 18076979 Problem Non-intractable cyclical vomiting with nausea G43.A0 Active 87726051 Problem Poor appetite R63.0 Active 98528101 Problem Mixed hyperlipidemia E78.2 Active 788058600 Problem GERD (gastroesophageal reflux disease) K21.9 Active 505058225 Problem Intrinsic asthma J45.909 Active 446004181 Problem Migraine G43.909 Active 42765830 Problem Bipolar affective disorder F31.9 Active 55966687 Problem Generalized anxiety disorder F41.1 Active 36148803 Problem 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 Active 940018586 ALLERGIES No Information ENCOUNTERS Encounter Location Date Diagnosis [address] [id number] Feb, [address] [address] Jan, [address] [address] Dec, Oral thrush B37.0 and Poor appetite R63.[address] [id number] Nov, Influenza vaccine refused Z28.21 ; Acquired immune deficiency syndrome B20 ; Anxiety F41.9 ; Noncompliance Z91.19 ; Oral thrush B37.0 and Chronic pain syndrome G89.4 [facility] [address] [place] [address] Nov, Backache M54.9 [facility] [address] [place] [address] Nov, Acquired immune deficiency syndrome B20 [facility] [address] [place] [address] Nov, Acquired immune deficiency syndrome B20 [facility] [address] [place] [address] Oct, [facility] [address] [place] [address] Oct, Backache M54.9 [facility] [address] [place] [address] Oct, [facility] [address] [place] [address] Oct, [facility] [address] [place] [address] Oct, [facility] [address] [place] [address] Oct, [facility] [address] [place] [address] Oct, Upper respiratory infection J06.9 and Backache M54.9 [facility] [address] [place] [address] Oct, Generalized anxiety disorder F41.1 and Backache M54.9 [facility] [address] [place] [address] Sep, Acquired immune deficiency syndrome B20 [facility] [address] [place] [address] Sep, [facility] [address] [place] [id number] Sep, Acquired immune deficiency syndrome B20 ; Intrinsic asthma J45.909 and Open wound T14.8XXA [facility] [address] [place] [address] Sep, [facility] [address] [place] [address] Sep, [facility] [address] [place] [address] Sep, [facility] [address] [place] [address] Sep, Poor appetite R63.0 [facility] [address] [place] [address] Sep, Backache M54.9 [facility] [address] [place] [address] Sep, [facility] [address] [place] [address] Aug, Generalized anxiety disorder F41.1 [facility] [address] [place] [address] Aug, [facility] [address] [place] [address] Aug, Backache M54.9 [facility] [address] [place] [address] Aug, [facility] [address] [place] [address] Aug, Spider bite T63.301A [facility] [address] [place] [address] Aug, [facility] [address] [place] [address] Aug, [facility] [address] [place] [facility] [place] [address] Aug, [facility] [address] [place] [address] July, [facility] [address] [place] [address] July, [facility] [address] [place] [address] July, [facility] [address] [place] [address] July, [facility] [address] [place] [address] July, [facility] [address] [place] [address] July, Poor appetite R63.0 and Backache M54.9 [facility] [address] [place] [address] July, [facility] [address] [place] [address] July, [facility] [address] [place] [address] July, [facility] [address] [place] [address] July, [facility] [address] [place] [address] July, [facility] [address] [place] [address] July, Nausea and vomiting R11.2 [facility] [address] [place] [address] July, [facility] [address] [place] [address] July, [facility] [address] [place] [address] July, [facility] [address] [place] [address] July, [facility] [address] [place] [address] July, [facility] [address] [place] [address] July, Other chronic pain G89.29 [facility] [address] [place] [address] July, [facility] [address] [place] [address] July, GERD (gastroesophageal reflux disease) K21.9 [facility] [address] [place] [address] July, [facility] [address] [place] [address] Jun, [facility] [address] [place] [address] Jun, [facility] [address] [place] [address] Jun, [facility] [address] [place] [address] Jun, [facility] [address] [place] [address] Jun, Other chronic pain G89.29 [facility] [address] [place] [address] Jun, [facility] [address] [place] [address] Jun, [facility] [address] [place] [address] Jun, [facility] [address] [place] [address] Jun, [facility] [address] [place] [address] Jun, [facility] [address] [place] [address] Jun, Generalized anxiety disorder F41.1 ; Other chronic pain G89.29 and Non-intractable cyclical vomiting with nausea G43.A0 [facility] [address] [place] [id number] Jun, Acquired immune deficiency syndrome B20 ; terminal carman ( current) use of opiate analgesic Z79.891 ; Nicotine dependence, cigarettes, uncomplicated F17.210 ; Lower respiratory infection J22 ; Poor appetite R63.0 ; Other chronic pain G89.29 ; Generalized anxiety disorder F41.1 and Need for tetanus booster Z23 [facility] [address] [place] [address] Jun, [facility] [address] [place] [address] May, Generalized abdominal pain R10.84 [facility] [address] [place] [address] May, [facility] [address] [place] [address] Apr, AIDS B20 ; Generalized abdominal pain R10.84 and Dysmenorrhea N94.6 [facility] [address] [place] [address] Apr, Acute URI J06.[address] [address] Apr, [facility] [address] [place] [address] Apr, [facility] [address] [place] [id number] Apr, Acquired immune deficiency syndrome B20 ; custodial ( current) use of opiate analgesic Z79.891 and Migraine G43.[address] [address] Mar, Dysmenorrhea N94.[address] [address] Mar, [address] [address] Mar, Generalized anxiety disorder F41.1 and Generalized abdominal pain R10.[address] [address] Mar, [address] [address] Mar, Generalized abdominal pain R10.84 and Generalized anxiety disorder F41.[address] [address] Feb, [address] [address] Feb, Generalized abdominal pain R10.[address] [address] Jan, Nausea and vomiting R11.[address] [address] Jan, [place] [address] [place] [address] Jan, [facility] [address] [place] [address] Jan, [facility] [address] [place] [address] Jan, [facility] [address] [place] [address] Jan, [facility] [address] [place] [address] Jan, Mood swings F39 [facility] [address] [place] [address] Jan, [facility] [address] [place] [address] Jan, [facility] [address] [place] [address] Jan, [facility] [address] [place] [address] Jan, Dysmenorrhea N94.6 [facility] [address] [place] [id number] Jan, Acquired immune deficiency syndrome B20 ; Generalized abdominal pain R10.84 and Refused influenza vaccine Z28.21 [facility] [address] [place] [address] Jan, [facility] [address] [place] [address] Dec, Generalized abdominal pain R10.84 [facility] [address] [place] [address] Dec, Dysmenorrhea N94.6 [facility] [address] [place] [address] Dec, Backache M54.9 [facility] [address] [place] [address] Nov, Generalized abdominal pain R10.84 [facility] [address] [place] [address] Nov, Generalized anxiety disorder F41.1 [facility] [address] [place] [address] Nov, Dysmenorrhea N94.[address] [address] Oct, [address] [address] Oct, [address] [address] Oct, [address] [address] Oct, Generalized abdominal pain R10.84 [facility] [address] [place] [id number] Oct, Acquired immune deficiency syndrome B20 ; terminal carman 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 Z79.891 ; Bipolar affective disorder F31.9 ; Generalized anxiety disorder F41.1 ; Backache M54.9 ; Mixed hyperlipidemia E78.2 ; Nicotine dependence, cigarettes, uncomplicated F17.210 and Wheezing on auscultation R06.[address] [address] Oct, Oral candidiasis B37.[address] [address] Oct, [address] [address] Oct, Acute upper respiratory infection J06.[address] [address] Oct, Acute upper respiratory infection J06.[address] [address] Sep, Dysmenorrhea N94.[address] [address] Sep, Generalized anxiety disorder F41.[address] [address] Sep, Dysmenorrhea N94.[address] [address] Sep, [facility] [address] [place] [address] Sep, Dysmenorrhea N94.6 [facility] [address] [place] [address] Aug, Acquired immune deficiency syndrome B20 [facility] [address] [place] [address] Aug, Generalized anxiety disorder F41.1 [facility] [address] [place] [address] Aug, [facility] [address] [place] [address] Aug, [facility] [address] [place] [facility] [place] [address] Aug, [facility] [address] [place] [address] Aug, [facility] [address] [place] [address] Aug, [facility] [address] [place] [address] Aug, [facility] [address] [place] [address] Aug, [facility] [address] [place] [facility] [place] [address] Aug, Acute opioid withdrawal F11.23 [facility] [address] [place] [address] July, Upper respiratory infection J06.9 [facility] [address] [place] [address] July, Backache M54.9 [facility] [address] [place] [id number] July, Acquired immune deficiency syndrome B20 ; custodial 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 Z79.891 ; Hyperglycemia R73.9 ; Bipolar affective disorder F31.9 ; GERD (gastroesophageal reflux disease) K21.9 ; Backache M54.9 ; Generalized anxiety disorder F41.1 ; Mixed hyperlipidemia E78.2 ; Nicotine dependence, cigarettes, uncomplicated F17.210 and Localized edema R60.0 [facility] [address] [place] [address] July, [facility] [address] [place] [address] Jun, Backache M54.9 [facility] [address] [place] [address] Jun, Chronic pain G89.29 [facility] [address] [place] [address] May, Backache M54.9 [facility] [address] [place] [address] May, Backache M54.[address] [address] Apr, Cough R05 [facility] [address] [place] [id number] Apr, Acquired immune deficiency syndrome B20 ; Screening examination for sexually transmitted disease Z11.3 ; Dermatitis L30.9 and Migraine with aura and with status migrainosus, not intractable G43.[address] [address] Apr, Backache M54.[address] [address] Mar, Intrinsic asthma J45.909 ; Nausea and vomiting R11.2 and AIDS B20 [address] [address] Mar, Backache M54.9 [facility] [address] [place] [address] Feb, Chronic pain G89.[address] [address] Feb, Backache M54.[address] [address] Jan, [place] eye, 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 [address] Jan, Asthma, intrinsic 493.10 [facility] [address] [place] [address] Jan, [facility] [address] [place] [address] Jan, [facility] [address] [place] [address] Jan, Backache M54.[address] [address] 30 Dec, 2015 Chronic pain G89.29 [facility] [address] [facility] [place] [id number] Dec, AIDS B20 ; Influenza vaccine needed Z23 ; Intrinsic asthma J45.909 ; Backache M54.9 ; Generalized anxiety disorder F41.1 ; Nicotine dependence, cigarettes, uncomplicated F17.210 and Mixed hyperlipidemia E78.[address] [address] Dec, [address] [address] Dec, Dysmenorrhea N94.[address] [address] 18 Dec, [address] [address] 17 Dec, 2015 Depression with anxiety F41.8 and Backache M54.[address] [address] 19 Nov, [address] [address] 19 Nov, 2015 Other chronic pain G89.[address] [address] 18 Nov, 2015 Other chronic pain G89.[address] [address] 18 Nov, [address] [address] 14 Nov, 2015 Generalized anxiety disorder F41.[address] [address] Nov, [facility] [address] [place] [address] Nov, [facility] [address] [place] [address] Nov, Chronic pain G89.29 [facility] [address] [place] [address] Oct, [facility] [address] [place] [address] Oct, Other chronic pain G89.29 [facility] [address] [place] [address] Oct, [facility] [address] [place] [address] Oct, [facility] [address] [place] [address] Oct, Nausea and vomiting R11.2 [facility] [address] [place] [address] Oct, Chronic pain G89.29 [facility] [address] [place] [address] Sep, [facility] [address] [place] [address] Sep, Acute upper respiratory infection, unspecified J06.9 [facility] [address] [place] [address] Sep, Upper respiratory infection J06.9 [facility] [address] [place] [address] Sep, [facility] [address] [place] [address] Sep, [facility] [address] [place] [address] Sep, Other chronic pain G89.29 [facility] [address] [facility] [place] [id number] Sep, AIDS B20 ; custodial (current) use of opiate analgesic Z79.891 ; Smoking F17.200 ; Mixed hyperlipidemia E78.2 ; Chronic pain G89.29 and Edema R60.9 [facility] [address] [place] [address] Sep, [facility] [address] [place] [address] Sep, [facility] [address] [place] [address] Aug, [facility] [address] [place] [address] Aug, Other chronic pain G89.29 [facility] [address] [place] [address] Aug, Generalized anxiety disorder F41.1 [facility] [address] [place] [address] July, Other chronic pain G89.29 [facility] [address] [place] [address] July, Other chronic pain G89.29 [facility] [address] [place] [address] July, [facility] [address] [place] [address] Jun, Generalized anxiety disorder F41.1 [facility] [address] [place] [address] Jun, [facility] [address] [place] [address] Jun, Other chronic pain G89.29 [facility] [address] [place] [address] Jun, Rash and other nonspecific skin eruption R21 [facility] [address] [place] [address] Jun, [facility] [address] [place] [address] Jun, [facility] [address] [place] [address] Jun, [facility] [address] [place] [address] Jun, [facility] [address] [place] [address] Jun, [facility] [address] [place] [address] Jun, [facility] [address] [place] [address] Jun, [facility] [address] [place] [address] Jun, Other chronic pain G89.29 [facility] [address] [place] [address] Jun, [facility] [address] [place] [address] Jun, [facility] [address] [place] [address] Jun, [facility] [address] [place] [address] Jun, [facility] [address] [place] [address] Jun, [facility] [address] [place] [address] Jun, [facility] [address] [place] [address] Jun, [facility] [address] [place] [address] Jun, [facility] [address] [place] [address] Jun, [facility] [address] [place] [address] Jun, Nausea and vomiting R11.2 [facility] [address] [place] [address] May, [facility] [address] [place] [address] May, Rash and other nonspecific skin eruption R21 [facility] [address] [place] [address] May, [facility] [address] [place] [address] May, [facility] [address] [place] [address] May, [facility] [address] [place] [address] May, [facility] [address] [place] [address] May, [facility] [address] [facility] [place] [id number] May, Acquired immune deficiency syndrome B20 ; Screening examination for sexually transmitted disease Z11.3 ; Depression with anxiety F41.8 ; Other chronic pain G89.29 and Dermatitis L30.9 [facility] [address] [place] [address] May, [facility] [address] [place] [address] May, [facility] [address] [place] [address] May, [facility] [address] [place] [address] May, Backache M54.9 [facility] [address] [place] [address] May, Rash and other nonspecific skin eruption R21 [facility] [address] [place] [address] Apr, [facility] [address] [place] [address] Apr, [facility] [address] [place] [address] Apr, Other chronic pain G89.29 [facility] [address] [place] [address] Apr, [facility] [address] [place] [address] Apr, [facility] [address] [place] [address] Apr, [facility] [address] [place] [address] Apr, [facility] [address] [place] [address] Apr, [facility] [address] [place] [address] Apr, [facility] [address] [place] [address] Apr, [facility] [address] [place] [address] Apr, [facility] [address] [place] [address] Apr, [facility] [address] [place] [address] Apr, [facility] [address] [place] [address] Apr, Other chronic pain G89.29 ; Generalized anxiety disorder F41.1 ; Nausea R11.0 and AIDS B20 [address] [address] Apr, [facility] [address] [place] [address] Apr, Generalized anxiety disorder F41.[address] [address] Apr, [facility] [address] [place] [address] Apr, Other chronic pain G89.29 [facility] [address] [place] [address] Mar, [facility] [address] [place] [id number] Mar, custodial (current) use of opiate analgesic Z79.891 ; Bipolar affective disorder F31.9 ; Smoking F17.200 ; Generalized anxiety disorder F41.1 ; Influenza vaccine administered Z23 and AIDS B20 [facility] [address] [place] [address] Mar, Other chronic pain G89.29 [facility] [address] [place] [address] Mar, Generalized anxiety disorder F41.1 [facility] [address] [place] [address] Mar, [facility] [address] [place] [address] Mar, Asymptomatic HIV infection Z21 [facility] [address] [place] [address] Mar, Other chronic pain G89.29 [facility] [address] [place] [address] Feb, [facility] [address] [place] [address] Feb, [facility] [address] [place] [address] Feb, [facility] [address] [place] [address] Feb, [facility] [facility] [address] [place] [address] Feb, [facility] [address] [place] [address] Jan, Other chronic pain G89.29 and Nausea & vomiting R11.2 [facility] [address] [place] [address] Jan, Other chronic pain G89.29 [facility] [address] [place] [address] Dec, [facility] [address] [place] [address] Dec, Other chronic pain G89.29 ; Asymptomatic HIV infection Z21 ; Intrinsic asthma J45.909 ; Bipolar affective disorder F31.9 ; Noncompliance Z91.19 ; Migraine G43.909 ; Tobacco use disorder Z72.0 ; GERD (gastroesophageal reflux disease) K21.9 ; Backache M54.9 and Generalized anxiety disorder F41.1 [facility] [address] [place] [address] Nov, [facility] [address] [place] [address] Nov, [facility] [address] [place] [address] Oct, Other chronic pain 338.[address] [address] Oct, [facility] [address] [place] [address] Oct, Unspecified backache 724.5 and Dysphagia 787.20 [facility] [address] [place] [address] Sep, Other chronic pain 338.[address] [address] Sep, [address] [address] Aug, URI (upper respiratory infection) 465.9 and Diarrhea 787.[address] [address] Aug, [address] [address] Aug, Other chronic pain 338.[address] [address] Aug, Other chronic pain 338.29 and Generalized anxiety disorder 300.[address] [address] Aug, [address] [address] July, Other chronic pain 338.29 [facility] [address] [place], [place] [id number] July, Nondependent tobacco use disorder 305.1 ; Unspecified backache 724.5 ; Other chronic pain 338.29 ; Abdominal pain, unspecified site 789.00 ; custodial (current) use of opiate analgesic V58.69 and Acquired immune deficiency syndrome [address] [address] July, Other chronic pain 338.[address] [address] Jun, Other chronic pain 338.29 [facility] [address] [place] [address] Jun, [facility] [address] [place] [address] Jun, Other chronic pain 338.29 [facility] [address] [place] [address] Jun, URI (upper respiratory infection) 465.9 [facility] [address] [place] [address] Jun, Generalized anxiety disorder 300.02 and Seasonal allergies 477.9 [facility] [address] [place] [address] Jun, Generalized anxiety disorder 300.02 [facility] [address] [place] [address] May, Other chronic pain 338.29 [facility] [address] [place] [address] May, Other chronic pain 338.29 and Generalized anxiety disorder 300.02 [facility] [address] [place] [address] Apr, Asthma, intrinsic 493.10 and Acute upper respiratory infections of other multiple sites 465.8 [facility] [address] [place] [address] Apr, [facility] [address] [facility] [address] [place], [place] [id number] Apr, Depressive disorder 311 [facility] [address] [place] [address] Apr, Other chronic pain 338.29 [facility] [address] [place] [address] Apr, [facility] [address] [place] [address] Apr, Other chronic pain 338.29 [facility] [address] [place] [address] Mar, Acute upper respiratory infections of unspecified site 465.9 [facility] [address] [place] [id number] Mar, Migraine 346.90 ; Nondependent tobacco use disorder 305.1 ; Esophageal reflux 530.81 ; Unspecified backache 724.5 ; Abdominal pain, generalized 789.07 ; Flatulence, eructation, and gas pain 787.3 ; Asymptomatic human immunodeficiency virus (HIV) infection status V08 ; Dyspepsia and other specified disorders of function of stomach 536.8 ; Nausea alone 787.02 and Asthma 493.[address] [address] Mar, Other chronic pain 338.[address] [address] Feb, Other chronic pain 338.29 and Generalized anxiety disorder 300.[address] [address] Feb, Abdominal pain, generalized 789.[address] [address] Jan, Abdominal pain, generalized 789.07 [facility] [address] [place] [id number] Dec, [address] [address] Dec, [address] [address] Dec, Unspecified backache 724.[address] [address] Dec, [address] [address] Nov, [facility] [address] [facility] [address] [place] [id number] Nov, [facility] [address] [facility] [place] [id number] Nov, Bipolar disorder, unspecified 296.80 ; Abdominal pain, generalized 789.07 ; Generalized anxiety disorder 300.02 ; Nausea alone 787.02 ; Flu vaccine need V04.81 and Human immunodeficiency virus (HIV) disease 042 [facility] [address] [place] [address] Nov, [facility] [place] [facility] [address] [facility] [address] [place] [id number] Oct, [facility] [place] [facility] [address] [facility] [address] [place] [id number] Oct, [facility] [address] [facility] [address] [place] [phone] Aug, [facility] [address] [place] [facility] [place] [address] Jun, [facility] [address] [place] [facility] [place] [address] Mar, [facility] [address] [place] [facility] [place] [address] Oct, [facility] [address] [place] [facility] [place] [address] July, [facility] [address] [place] [facility] [place] [address] Jun, [facility] [address] [place] [facility] [place] [address] May, [facility] [address] [place] [facility] [place] [address] Mar, [facility] [address] [place] [facility] [place] [address] Feb, [facility] [address] [place] [address] Nov, [facility] [address] [place] [facility] [place] [address] Oct, [facility] [address] [place] [facility] [place] [address] Aug, [facility] [address] [place] [address] May, [facility] [address] [place] [address] Mar, IMMUNIZATIONS No Known Immunizations SOCIAL HISTORY Never Assessed REASON FOR VISIT RX PLAN OF CARE VITAL SIGNS MEDICATIONS Unknown [...]
--- OUTSIDE RECORDS SUMMARY | 2018-03-22 13:42 | XMS REPORT ---
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 Name Role Phone Dulce Herrera Unavailable PROBLEMS Type Condition ICD9-CM Code WOH99-QH Code Onset Dates Condition Status SNOMED Code Problem Nicotine dependence, cigarettes, uncomplicated F17.210 Active 15394830 Problem Wheezing on auscultation R06.2 Active 369634694 Problem Acquired immune deficiency syndrome B20 Active 12490810 Problem Anxiety F41.9 Active 20908341 Problem Chronic pain syndrome G89.4 Active 041372473 Problem Other chronic pain G89.29 Active 40570611 Problem Mood swings F39 Active 63825175 Problem Non-intractable cyclical vomiting with nausea G43.A0 Active 87887488 Problem Poor appetite R63.0 Active 02312364 Problem Mixed hyperlipidemia E78.2 Active 610693787 Problem GERD (gastroesophageal reflux disease) K21.9 Active 194082522 Problem Intrinsic asthma J45.909 Active 451285316 Problem Migraine G43.909 Active 50095597 Problem Bipolar affective disorder F31.9 Active 70218671 Problem Generalized anxiety disorder F41.1 Active 57674431 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 Active 788996180 ALLERGIES No Information ENCOUNTERS Encounter Location Date Diagnosis [address] [id number] Feb, [facility] [place] [address] [place] [address] Dec, Oral thrush B37.0 and Poor appetite R63.[address] [id number] Nov, Influenza vaccine refused Z28.21 ; Acquired immune deficiency syndrome B20 ; Anxiety F41.9 ; Noncompliance Z91.19 ; Oral thrush B37.0 and Chronic pain syndrome G89.4 [address] [place] [facility] [place] [address] Nov, Backache M54.9 [facility] [address] [place] [facility] [place] [address] Nov, Acquired immune deficiency syndrome B20 [facility] [address] [place] [facility] [place] [address] Nov, Acquired immune deficiency syndrome B20 [facility] [address] [place] [facility] [place] [address] Oct, [facility] [address] [place] [facility] [place] [address] Oct, Backache M54.9 [facility] [address] [place] [facility] [address] Oct, [facility] [address] [place] [facility] [place] [address] Oct, [facility] [address] [place] [address] Oct, [facility] [address] [place] [facility] [place] [address] Oct, [facility] [address] [place] [facility] [place] [address] Oct, Upper respiratory infection J06.9 and Backache M54.9 [facility] [place] [address] [place] [address] Oct, Generalized anxiety disorder F41.1 and Backache M54.9 [facility] [place] [address] [place] [address] Sep, Acquired immune deficiency syndrome B20 [facility] [address] [place] [address] Sep, [facility] [address] [place] [id number] Sep, Acquired immune deficiency syndrome B20 ; Intrinsic asthma J45.909 and Open wound T14.8XXA [facility] [address] [place] [address] Sep, [facility] [address] [place] [address] Sep, [facility] [address] [place] [facility] [address] Sep, [facility] [address] [place] [facility] [address] Sep, Poor appetite R63.0 [facility] [address] [place] [facility] [place] [address] Sep, Backache M54.9 [facility] [address] [place] [facility] [address] Sep, [facility] [address] [place] [facility] [place] [address] Aug, Generalized anxiety disorder F41.1 [facility] [address] [place] [facility] [address] Aug, [facility] [address] [place] [facility] [place] [address] Aug, Backache M54.9 [facility] [address] [place] [facility] [place] [address] Aug, [facility] [address] [place] [facility] [place] [address] Aug, Spider bite T63.301A [facility] [address] [place] [facility] [address] Aug, [facility] [address] [place] [facility] [address] Aug, [facility] [address] [place] [facility] [place] [address] Aug, [facility] [address] [place] [facility] [address] July, [facility] [address] [place] [facility] [place] [address] July, [facility] [address] [place] [facility] [place] [address] July, [facility] [address] [place] [facility] [place] [address] July, [facility] [address] [place] [facility] [place] [address] July, [facility] [address] [place] [facility] [place] [address] July, Poor appetite R63.0 and Backache M54.9 [facility] [address] [place] [facility] [place] [address] July, [facility] [address] [place] [facility] [place] [address] July, [facility] [address] [place] [facility] [place] [address] July, [facility] [address] [place] [facility] [place] [address] July, [facility] [address] [place] [facility] [place] [address] July, [facility] [address] [place] [facility] [place] [address] July, Nausea and vomiting R11.2 [facility] [address] [place] [facility] [place] [address] July, [facility] [address] [place] [facility] [place] [address] July, [facility] [address] [place] [facility] [place] [address] July, [facility] [address] [place] [facility] [place] [address] July, [facility] [address] [place] [facility] [place] [address] July, [facility] [address] [place] [facility] [place] [address] July, Other chronic pain G89.29 [facility] [address] [place] [facility] [place] [address] July, [facility] [address] [place] [facility] [place] [address] July, GERD (gastroesophageal reflux disease) K21.9 [facility] [address] [place] [facility] [place] [address] July, [facility] [address] [place] [facility] [place] [address] Jun, [facility] [address] [place] [facility] [place] [address] Jun, [facility] [address] [place] [facility] [place] [address] Jun, [facility] [address] [place] [facility] [place] [address] Jun, [facility] [address] [place] [facility] [place] [address] Jun, Other chronic pain G89.29 [facility] [address] [place] [facility] [address] Jun, [facility] [address] [place] [facility] [address] Jun, [facility] [address] [place] [facility] [address] Jun, [facility] [address] [place] [facility] [address] Jun, [facility] [address] [place] [facility] [address] Jun, [facility] [address] [place] [facility] [address] Jun, Generalized anxiety disorder F41.1 ; Other chronic pain G89.29 and Non-intractable cyclical vomiting with nausea G43.A0 [facility] [address] [place] [id number] Jun, Acquired immune deficiency syndrome B20 ; [facility] ( current) use of opiate analgesic Z79.891 ; Nicotine dependence, cigarettes, uncomplicated F17.210 ; Lower respiratory infection J22 ; Poor appetite R63.0 ; Other chronic pain G89.29 ; Generalized anxiety disorder F41.1 and Need for tetanus booster Z23 [facility] [address] [place] [facility] [address] Jun, [facility] [address] [place] [address] May, Generalized abdominal pain R10.84 [facility] [address] [place] [address] May, [facility] [address] [place] [address] Apr, AIDS B20 ; Generalized abdominal pain R10.84 and Dysmenorrhea N94.[address] [address] Apr, Acute URI J06.[address] [address] Apr, [address] [address] Apr, [facility] [address] [place] [id number] Apr, Acquired immune deficiency syndrome B20 ; [facility] ( current) use of opiate analgesic Z79.891 and Migraine G43.[address] [address] Mar, Dysmenorrhea N94.[address] [address] Mar, [address] [address] Mar, Generalized anxiety disorder F41.1 and Generalized abdominal pain R10.[address] [address] Mar, [address] [address] Mar, Generalized abdominal pain R10.84 and Generalized anxiety disorder F41.[address] [address] Feb, [address] [address] Feb, Generalized abdominal pain R10.[address] [address] Jan, Nausea and vomiting R11.[address] [address] Jan, [address] [address] Jan, [place] [address] [place] [address] Jan, [facility] [address] [place] [address] Jan, [facility] [address] [place] [address] Jan, [facility] [address] [place] [address] Jan, Mood swings F39 [facility] [address] [place] [address] Jan, [facility] [address] [place] [address] Jan, [facility] [address] [place] [address] Jan, [facility] [address] [place] [address] Jan, Dysmenorrhea N94.6 [facility] [address] [place] [id number] Jan, Acquired immune deficiency syndrome B20 ; Generalized abdominal pain R10.84 and Refused influenza vaccine Z28.21 [facility] [address] [place] [address] Jan, [facility] [address] [place] [address] Dec, Generalized abdominal pain R10.[address] [address] Dec, Dysmenorrhea N94.6 [facility] [address] [place] [address] Dec, Backache M54.9 [facility] [address] [place] [address] Nov, Generalized abdominal pain R10.84 [facility] [place] [address] [place] [address] Nov, Generalized anxiety disorder F41.1 [facility] [address] [address] 08 Nov, 2016 Dysmenorrhea N94.6 [facility] [place] [address] [place] [address] Oct, [facility] [address] [place] [address] Oct, [facility] [address] [place] [address] Oct, [facility] [place] [address] [place] [address] Oct, Generalized abdominal pain R10.84 [facility] [address] [facility] [place] [id number] Oct, Acquired immune deficiency syndrome B20 ; [facility] 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 Z79.891 ; Bipolar affective disorder F31.9 ; Generalized anxiety disorder F41.1 ; Backache M54.9 ; Mixed hyperlipidemia E78.2 ; Nicotine dependence, cigarettes, uncomplicated F17.210 and Wheezing on auscultation R06.[address] [address] Oct, Oral candidiasis B37.[address] [address] Oct, [address] [address] Oct, Acute upper respiratory infection J06.[address] [address] Oct, Acute upper respiratory infection J06.[address] [address] Sep, Dysmenorrhea N94.6 [facility] [place] [address] [place] [address] Sep, Generalized anxiety disorder F41.[address] [address] Sep, Dysmenorrhea N94.6 [facility] [place] [address] [place] [address] Sep, [facility] [address] [address] Sep, Dysmenorrhea N94.6 [facility] [address] [place] [address] Aug, Acquired immune deficiency syndrome B20 [facility] [address] [place] [address] Aug, Generalized anxiety disorder F41.1 [facility] [place] [address] [place] [address] Aug, [facility] [address] [place] [address] Aug, [facility] [address] [place] [address] Aug, [facility] [address] [place] [address] Aug, [facility] [address] [place] [address] Aug, [facility] [place] [address] [place] [address] Aug, [facility] [place] [address] [place] [address] Aug, [facility] [place] [facility] [address] [place] [address] Aug, Acute opioid withdrawal F11.[address] [address] July, Upper respiratory infection J06.9 [facility] [place] [address] [place] [address] July, Backache M54.9 [facility] [address] [place] [id number] July, Acquired immune deficiency syndrome B20 ; 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 ; Hyperglycemia R73.9 ; Bipolar affective disorder F31.9 ; GERD (gastroesophageal reflux disease) K21.9 ; Backache M54.9 ; Generalized anxiety disorder F41.1 ; Mixed hyperlipidemia E78.2 ; Nicotine dependence, cigarettes, uncomplicated F17.210 and Localized edema R60.0 [facility] [place] [address] [place] [address] July, [facility] [place] [address] [place] [address] Jun, Backache M54.9 [facility] [place] [address] [place] [address] Jun, Chronic pain G89.29 [facility] [place] [address] [place] [address] May, Backache M54.9 [facility] [place] [address] [place] [address] May, Backache M54.[address] [address] Apr, Cough R05 [facility] [address] [place] [id number] Apr, Acquired immune deficiency syndrome B20 ; Screening examination for sexually transmitted disease Z11.3 ; Dermatitis L30.9 and Migraine with aura and with status migrainosus, not intractable G43.[address] [address] Apr, Backache M54.[address] [address] Mar, Intrinsic asthma J45.909 ; Nausea and vomiting R11.2 and AIDS B20 [address] [address] Mar, Backache M54.[address] [address] Feb, Chronic pain G89.[address] [address] Feb, Backache M54.[address] [address] Jan, [place] [facility], 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 [address] Jan, Asthma, intrinsic 493.[address] [address] Jan, [facility] [place] [facility] [address] [place] [address] Jan, [facility] [place] [address] [place] [address] Jan, Backache M54.9 [facility] [place] [address] [place] [address] 30 Dec, 2015 Chronic pain G89.29 [facility] [address] [facility] [place] [id number] Dec, AIDS B20 ; Influenza vaccine needed Z23 ; Intrinsic asthma J45.909 ; Backache M54.9 ; Generalized anxiety disorder F41.1 ; Nicotine dependence, cigarettes, uncomplicated F17.210 and Mixed hyperlipidemia E78.[address] [address] Dec, [address] [address] Dec, Dysmenorrhea N94.[address] [address] 18 Dec, 2015 [facility] [place] [address] [place] [address] 17 Dec, 2015 Depression with anxiety F41.8 and Backache M54.9 [facility] [place] [address] [place] [address] 19 Nov, 2015 [facility] [place] [address] [place] [address] 19 Nov, 2015 Other chronic pain G89.29 [facility] [place] [address] [place] [address] 18 Nov, 2015 Other chronic pain G89.29 [facility] [place] [facility] [address] [place] [address] 18 Nov, 2015 [facility] [place] [facility] [address] [place] [address] 14 Nov, 2015 Generalized anxiety disorder F41.[address] [address] 06 Nov, [address] [address] Nov, [facility] [place] [facility] [address] [place] [address] Nov, Chronic pain G89.29 [facility] [place] [address] [place] [address] Oct, [facility] [place] [address] [place] [address] Oct, Other chronic pain G89.29 [facility] [place] [address] [place] [address] Oct, [facility] [place] [address] [place] [address] Oct, [facility] [place] [place] [address] [place] [address] Oct, Nausea and vomiting R11.[address] [address] Oct, Chronic pain G89.29 [facility] [place] [address] [place] [address] Sep, [facility] [place] [address] [place] [address] Sep, Acute upper respiratory infection, unspecified J06.[address] [address] Sep, Upper respiratory infection J06.9 [facility] [place] [address] [place] [address] Sep, [facility] [place] [address] [place] [address] Sep, [facility] [place] [facility] [address] [place] [address] Sep, Other chronic pain G89.29 [facility] [address] [facility] [place] [id number] Sep, AIDS B20 ; [facility] (current) use of opiate analgesic Z79.891 ; Smoking F17.200 ; Mixed hyperlipidemia E78.2 ; Chronic pain G89.29 and Edema R60.9 [facility] [place] [address] [place] [address] Sep, [facility] [address] [place] [facility] [place] [address] Sep, [facility] [address] [place] [facility] [place] [address] Aug, [facility] [address] [place] [facility] [place] [address] Aug, Other chronic pain G89.29 [facility] [address] [place] [facility] [place] [address] Aug, Generalized anxiety disorder F41.1 [facility] [address] [place] [facility] [place] [address] July, Other chronic pain G89.29 [facility] [address] [place] [facility] [place] [address] July, Other chronic pain G89.29 [facility] [address] [place] [facility] [place] [address] July, [facility] [address] [place] [facility] [place] [address] Jun, Generalized anxiety disorder F41.1 [facility] [address] [place] [facility] [place] [address] Jun, [facility] [address] [place] [facility] [place] [address] Jun, Other chronic pain G89.29 [facility] [address] [place] [facility] [place] [address] Jun, Rash and other nonspecific skin eruption R21 [facility] [address] [place] [facility] [place] [address] Jun, [facility] [address] [place] [facility] [place] [address] Jun, [facility] [address] [place] [facility] [place] [address] Jun, [facility] [address] [place] [facility] [place] [address] Jun, [facility] [address] [place] [facility] [place] [address] Jun, [facility] [address] [place] [facility] [place] [address] Jun, [facility] [address] [place] [facility] [place] [address] Jun, [facility] [address] [place] [facility] [place] [address] Jun, Other chronic pain G89.29 [facility] [address] [place] [facility] [place] [address] Jun, [facility] [address] [place] [facility] [place] [address] Jun, [facility] [address] [place] [facility] [place] [address] Jun, [facility] [address] [place] [facility] [place] [address] Jun, [facility] [address] [place] [facility] [place] [address] Jun, [facility] [address] [place] [facility] [place] [address] Jun, [facility] [address] [place] [facility] [place] [address] Jun, [facility] [address] [place] [facility] [place] [address] Jun, [facility] [address] [place] [facility] [place] [address] Jun, [facility] [address] [place] [facility] [place] [address] Jun, Nausea and vomiting R11.2 [facility] [address] [place] [facility] [place] [address] May, [facility] [address] [place] [facility] [place] [address] May, Rash and other nonspecific skin eruption R21 [facility] [address] [place] [facility] [place] [address] May, [facility] [address] [place] [facility] [place] [address] May, [facility] [address] [place] [facility] [place] [address] May, [facility] [address] [place] [address] May, [facility] [place] [address] [place] [address] May, [facility] [address] [facility] [place] [id number] May, Acquired immune deficiency syndrome B20 ; Screening examination for sexually transmitted disease Z11.3 ; Depression with anxiety F41.8 ; Other chronic pain G89.29 and Dermatitis L30.9 [facility] [address] [place] [facility] [place] [address] May, [facility] [address] [place] [address] May, [facility] [address] [place] [address] May, [facility] [address] [place] [address] May, Backache M54.9 [facility] [address] [place] [address], [place] [address] May, Rash and other nonspecific skin eruption R21 [facility] [address] [place] [address] Apr, [facility] [address] [place] [address] Apr, [facility] [address] [place] [address] Apr, Other chronic pain G89.29 [facility] [address] [place] [address] Apr, [facility] [address] [place] [address] Apr, [facility] [address] [place] [address] Apr, [facility] [address] [place] [address] Apr, [facility] [address] [place] [address] Apr, [facility] [place] [address] [place] [address] Apr, [facility] [address] [place] [address] Apr, [facility] [address] [place] [address] Apr, [facility] [address] [place] [address] Apr, [facility] [address] [place] [address] Apr, [facility] [address] [place] [address] Apr, Other chronic pain G89.29 ; Generalized anxiety disorder F41.1 ; Nausea R11.0 and AIDS B20 [address] [address] Apr, [address] [address] Apr, Generalized anxiety disorder F41.[address] [address] Apr, [address] [address] Apr, Other chronic pain G89.[address] [address] Mar, [facility] [address] [place] [id number] Mar, [facility] (current) use of opiate analgesic Z79.891 ; Bipolar affective disorder F31.9 ; Smoking F17.200 ; Generalized anxiety disorder F41.1 ; Influenza vaccine administered Z23 and AIDS B20 [address] [address] Mar, Other chronic pain G89.[address] [address] Mar, Generalized anxiety disorder F41.[address] [address] Mar, [facility] [address] [place] [address] Mar, Asymptomatic HIV infection Z21 [facility] [address] [place] [address] Mar, Other chronic pain G89.29 [facility] [address] [place] [address] Feb, [facility] [address] [place] [address] Feb, [facility] [address] [place] [address] Feb, [facility] [address] [place] [address] Feb, [facility] [address] [place] [address] Feb, [facility] [address] [place] [address] Jan, Other chronic pain G89.29 and Nausea & vomiting R11.2 [facility] [address] [place] [address] Jan, Other chronic pain G89.29 [facility] [address] [place] [address] Dec, [facility] [address] [place] [address] Dec, Other chronic pain G89.29 ; Asymptomatic HIV infection Z21 ; Intrinsic asthma J45.909 ; Bipolar affective disorder F31.9 ; Noncompliance Z91.19 ; Migraine G43.909 ; Tobacco use disorder Z72.0 ; GERD (gastroesophageal reflux disease) K21.9 ; Backache M54.9 and Generalized anxiety disorder F41.1 [facility] [address] [place] [address] Nov, [facility] [address] [place] [address] Nov, [facility] [address] [place] [address] Oct, Other chronic pain 338.[address] [address] Oct, [address] [address] Oct, Unspecified backache 724.5 and Dysphagia 787.[address] [address] Sep, Other chronic pain 338.[address] [address] Sep, [address] [address] Aug, URI (upper respiratory infection) 465.9 and Diarrhea 787.[address] [address] Aug, [address] [address] Aug, Other chronic pain 338.[address] [address] Aug, Other chronic pain 338.29 and Generalized anxiety disorder 300.[address] [address] Aug, [address] [address] July, Other chronic pain 338.29 [facility] [address] [place], [place] [phone] July, Nondependent tobacco use disorder 305.1 ; Unspecified backache 724.5 ; Other chronic pain 338.29 ; Abdominal pain, unspecified site 789.00 ; [facility] (current) use of opiate analgesic V58.69 and Acquired immune deficiency syndrome [address] [address] July, Other chronic pain 338.[address] [address] Jun, Other chronic pain 338.[address] [address] Jun, [facility] [address] [place] [address] Jun, Other chronic pain 338.29 [facility] [address] [place] [address] Jun, URI (upper respiratory infection) 465.9 [facility] [address] [place] [address] Jun, Generalized anxiety disorder 300.02 and Seasonal allergies 477.9 [facility] [address] [place] [address] Jun, Generalized anxiety disorder 300.02 [facility] [address] [place] [address] May, Other chronic pain 338.29 [facility] [address] [place] [address] May, Other chronic pain 338.29 and Generalized anxiety disorder 300.02 [facility] [address] [place] [address] Apr, Asthma, intrinsic 493.10 and Acute upper respiratory infections of other multiple sites 465.8 [facility] [address] [place] [address] Apr, [facility] [address] [facility] [address] [place] [phone] Apr, Depressive disorder 311 [facility] [address] [place] [address] Apr, Other chronic pain 338.29 [facility] [address] [place] [address] Apr, [facility] [address] [place] [address] Apr, Other chronic pain 338.29 [facility] [address] [place] [address] Mar, Acute upper respiratory infections of unspecified site 465.9 [facility] [address] [place] [phone] Mar, Migraine 346.90 ; Nondependent tobacco use disorder 305.1 ; Esophageal reflux 530.81 ; Unspecified backache 724.5 ; Abdominal pain, generalized 789.07 ; Flatulence, eructation, and gas pain 787.3 ; Asymptomatic human immunodeficiency virus (HIV) infection status V08 ; Dyspepsia and other specified disorders of function of stomach 536.8 ; Nausea alone 787.02 and Asthma 493.[address] [address] Mar, Other chronic pain 338.[address] [address] Feb, Other chronic pain 338.29 and Generalized anxiety disorder 300.[address] [address] Feb, Abdominal pain, generalized 789.[address] [address] Jan, Abdominal pain, generalized 789.07 [facility] [address] [place] [phone] Dec, [address] [address] Dec, [address] [address] Dec, Unspecified backache 724.[address] [address] Dec, [address] [address] Nov, [facility] [address] [facility] [address] [place] [phone] Nov, [facility] [address] [facility] [place] [phone] Nov, Bipolar disorder, unspecified 296.80 ; Abdominal pain, generalized 789.07 ; Generalized anxiety disorder 300.02 ; Nausea alone 787.02 ; Flu vaccine need V04.81 and Human immunodeficiency virus (HIV) disease [address] [address] Nov, [facility] [place] [facility] [address] [facility] [address] [place] [phone] Oct, [facility] [address] [facility] [address] [place] [phone] Oct, [facility] [address] [facility] [address] [place] [phone] Aug, [facility] [address] [place] [facility] [place] [address] Jun, [facility] [address] [place] [facility] [address] Mar, [facility] [address] [place] [facility] [address] Oct, [facility] [address] [place] [facility] [place] [address] July, [facility] [address] [place] [facility] [address] Jun, [facility] [address] [place] [facility] [address] May, [facility] [address] [place] [facility] [address] Mar, [facility] [address] [place] [facility] [place] [address] Feb, [facility] [address] [place] [facility] [place] [address] Nov, [facility] [address] [place] [facility] [place] [address] Oct, [facility] [address] [place] [facility] [place] [address] Aug, [facility] [address] [place] [facility] [place] [address] May, [facility] [address] [place] [facility] [place] [address] Mar, IMMUNIZATIONS No Known Immunizations SOCIAL HISTORY Never Assessed REASON FOR VISIT refills PLAN OF CARE VITAL SIGNS MEDICATIONS Medication Instructions Dosage Frequency Start Date End Date Duration Status Tramadol HCl 50 MG Orally every 12 hrs 2 tablet as needed 12h Sep, 30 days Active Marinol 10 MG Orally three times a day 1 capsule before lunch and supper 8h 04 Apr, 2016 30 days Active RESULTS No Results [...]
[2018-03-22] MEDS ORDERED: RT-ALBUTEROL/IPRATROPIUM 3 ML (DUONEB) VIAL INH ONE (13:45)
[2018-03-22] MEDS ORDERED: PIPERACILLIN SODIUM/TAZOBACTAM 4.5 GM in NS (IVPB) 100 ML IV ONE (13:45)
--- NOTE | 2018-03-22 13:46 | ED Respiratory ---
General Stated Complaint: PNEUMONIA Source: patient, other Exam Limitations: no limitations History of Present Illness Date Seen by Provider: Mar 22, 2018 Time Seen by Provider: 13:33 Initial Comments The patient presents to ER by private conveyance with her significant other and chief complaint that she was sent from urgent care by the mall over here to be admitted to the ER to have liquid antibiotics for her pneumonia. She had been seen for the past for 5 days at urgent care and given a shot of Levaquin as well as 3 g of Rocephin over the past 3 days. They don't feel she is getting better so he thought she might be better inpatient. The patient is a history of asthma but no COPD. She smokes half pack per day. She uses albuterol inhalers as well as nebulizers and she has used them about every 4-6 hours for the past several days with minimal relief of her shortness of breath. She has had subjective fevers and chills. She has a history of HIV. She follows with Dr. Snell but has no primary care provider. She's had productive cough. She denies any dysuria nausea or chest pain. Allergies and Home Medications Allergies Coded Allergies: No Known Drug Allergies (Unverified , 11/11/16) Home Medications Albuterol Sulfate 1 Puff Puff, 2 PUFF IH Q4H PRN for SHORTNESS OF BREATH, ( Reported) 1 PUFF = 90 MCG Alprazolam 1 Mg Tablet, 1 MG PO BID, (Reported) Azithromycin 250 Mg Tablet, 250 MG PO DAILY, (Reported) Dapsone 100 Mg Tablet, 100 MG PO DAILY, (Reported) Dicyclomine HCl 20 Mg Tablet, 20 MG PO TID, (Reported) Docusate Sodium 100 Mg Capsule, 100 MG PO BID Prescribed by: JAKY HOBSON on 11/29/16 0704 Doxycycline Hyclate 100 Mg Tablet, 100 MG PO BID Prescribed by: CARMELA MISHRA on 08/18/17 1620 Dronabinol 10 Mg Capsule, 10 MG PO BID, (Reported) Elvitegr/Cobicist/Emtric/Tenof 1 Each Tablet, 1 EACH PO DAILY, (Reported) Ibuprofen 800 Mg Tablet, 800 MG PO Q6HR Prescribed by: JAKY HOBSON on 11/29/16 0704 Methocarbamol 750 Mg Tablet, 750 MG PO Q8H, (Reported) Naproxen 500 Mg Tablet, 500 MG PO BID PRN for PAIN-MODERATE Prescribed by: VINITA GREER on 08/19/17 1213 Ondansetron HCl 8 Mg Tablet, 8 MG PO Q8H PRN for NAUSEA/VOMITING-1ST LINE, ( Reported) Oxycodone HCl/Acetaminophen 1 Each Tablet, 1-2 TAB PO Q4HR PRN for PAIN- MODERATE TO SEVERE Prescribed by: JAKY HOBSON on 11/29/16 0704 Patient Home Medication List Home Medication List Reviewed: Yes Review of Systems Review of Systems Constitutional: No chills, No fever; malaise EENTM: No ear pain, No eye pain Respiratory: cough; No phlegm; short of breath, wheezing Cardiovascular: No chest pain, No edema Gastrointestinal: No abdominal pain, No constipation, No diarrhea, No nausea Genitourinary: No discharge, No dysuria Musculoskeletal: No back pain, No joint pain Past Phwivfm-Pgxpmf-Tzheyu Hx Patient Social History Alcohol Use: Denies Use Recreational Drug Use: No Smoking Status: Current Everyday Smoker Type Used: Cigarettes 2nd Hand Smoke Exposure: Yes Recent Hopitalizations: No Immunizations Up To Date Tetanus Booster (TDap): Less than 5yrs Date of Pneumonia Vaccine: Mar 16, 2014 Date of Influenza Vaccine: Dec 24, 2015 Seasonal Allergies Seasonal Allergies: No Past Medical History Surgeries: Yes (RUDDY 2010 WITH ERCP) Gallbladder, Tubal Ligation Respiratory: Yes Asthma Cardiac: No Neurological: Yes Headaches /Migraines 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 Disorders: Yes (CPP, AUB) Female 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 Disorders: Menstrual Problems [employer] History: Tubal Ligation Sexually Transmitted Disease: No HIV/AIDS: Yes Genitourinary: No Gastrointestinal: Yes Abdominal Hernia Musculoskeletal: Yes Back Injury, Chronic Back Pain Endocrine: No HEENT: No Loss of Vision: Denies Hearing Impairment: Denies Cancer: No Psychosocial: Yes Anxiety Integumentary: No Blood Disorders: Yes (HIV) Adverse Reaction/Blood Tranf: No Family Medical History No Pertinent Family Hx, Cancer, Hypertension Physical Exam Vital Signs - First Documented 03/22/18 13:35 Temp 96.7 Pulse 100 Resp 24 B/P (MAP) 115/98 (104) Pulse Ox 100 O2 Delivery Room Air Capillary Refill : Height: 5'4.00" Weight: 130lbs. 8.0oz. 58.557060ax; 24.2 BMI Method:Estimated General Appearance: mild distress, thin Eyes: Bilateral Eye Normal Inspection, Bilateral Eye PERRL, Bilateral Eye EOMI HEENT: PERRL/EOMI, normal ENT inspection, TMs normal, pharynx normal Neck: non-tender, full range of motion, supple, normal inspection Respiratory: chest non-tender, no accessory muscle use, respiratory distress ( mild to moderate), decreased breath sounds, wheezing Cardiovascular: normal peripheral pulses, regular rate, rhythm, no edema, tachycardia Gastrointestinal: normal bowel sounds, non tender, soft Neurologic/Psychiatric: alert, oriented x 3, other (anxious affect) Skin: normal color, warm/dry Progress/Results/Core Measures Suspected Sepsis SIRS Temperature: Pulse: Respiratory Rate: Laboratory Tests 03/22/18 13:45: White Blood Count 2.1L Blood Pressure / Mean: Laboratory Tests 03/22/18 13:45: Creatinine 0.94, INR Comment 1.0, Platelet Count 313, Total Bilirubin 0.3 Results/Orders Lab Results Laboratory Tests Test 03/22/18 13:45 Range/Units White Blood Count 2.1 L 4.3-11.0 10^3/uL Red Blood Count 3.88 L 4.35-5.85 10^6/uL Hemoglobin 11.1 L 11.5-16.0 G/DL Hematocrit 34 L 35-52 % Mean Corpuscular Volume 88 80-99 FL Mean Corpuscular Hemoglobin 29 25-34 PG Mean Corpuscular Hemoglobin Concent 33 32-36 G/DL Red Cell Distribution Width 18.3 H 10.0-14.5 % Platelet Count 313 130-400 10^3/uL Mean Platelet Volume 11.7 H 7.4-10.4 FL Neutrophils (%) (Auto) 35 L 42-75 % Lymphocytes (%) (Auto) 44 12-44 % Monocytes (%) (Auto) 20 H 0-12 % Eosinophils (%) (Auto) 1 0-10 % Basophils (%) (Auto) 1 0-10 % Neutrophils # (Auto) 0.7 L 1.8-7.8 X 10^3 Lymphocytes # (Auto) 0.9 L 1.0-4.0 X 10^3 Monocytes # (Auto) 0.4 0.0-1.0 X 10^3 Eosinophils # (Auto) 0.0 0.0-0.3 10^3/uL Basophils # (Auto) 0.0 0.0-0.1 10^3/uL Neutrophils % (Manual) 32 % Lymphocytes % (Manual) 42 % Monocytes % (Manual) 20 % Eosinophils % (Manual) 0 % Basophils % (Manual) 0 % Band Neutrophils 4 % Anisocytosis SLIGHT Elliptocytes SLIGHT Prothrombin Time 12.9 12.2-14.7 SEC INR Comment 1.0 0.8-1.4 Activated Partial Thromboplast Time 27 24-35 SEC Sodium Level 141 135-145 MMOL/L Potassium Level 2.8 L 3.6-5.0 MMOL/L Chloride Level 105 98-107 MMOL/L Carbon Dioxide Level 24 21-32 MMOL/L Anion Gap 12 5-14 MMOL/L Blood Urea Nitrogen 12 7-18 MG/DL Creatinine 0.94 0.60-1.30 MG/DL Estimat Glomerular Filtration Rate > 60 BUN/Creatinine Ratio 13 Glucose Level 110 H 70-105 MG/DL Calcium Level 9.1 8.5-10.1 MG/DL Corrected Calcium 9.1 8.5-10.1 MG/DL Total Bilirubin 0.3 0.1-1.0 MG/DL Aspartate Amino Transf (AST/SGOT) 18 5-34 U/L Alanine Aminotransferase (ALT/SGPT) 13 0-55 U/L Alkaline Phosphatase 78 40-136 U/L Total Protein 7.4 6.4-8.2 GM/DL Albumin 4.0 3.2-4.5 GM/DL Micro Results Microbiology 03/22/18 Influenza Types A,B Antigen (LESLEY) - Final, Complete My Orders Orders - DALLAS RICE Cbc With Automated Diff (03/22/18 13:40) Comprehensive Metabolic Panel (03/22/18 13:40) Blood Culture (03/22/18 13:40) Sputum Culture (03/22/18 13:40) Urinalysis (03/22/18 13:40) Urine Culture (03/22/18 13:40) Protime With Inr (03/22/18 13:40) Partial Thromboplastin Time (03/22/18 13:40) Saline Lock/Iv-Start (03/22/18 13:40) Saline Lock/Iv-Start (03/22/18 13:40) Vital Signs Adult Sepsis Patie Q15M (03/22/18 13:40) O2 (03/22/18 13:40) Remove Rings In Anticipation O (03/22/18 13:40) Lactic Acid Analyzer (03/22/18 13:40) Influenza A And B Antigens (03/22/18 13:40) Ns Iv 1000 Ml (Sodium Chloride 0.9%) (03/22/18 13:40) Piperacillin Sodium/Tazobactam (Zosyn Vi (03/22/18 13:45) Chest Pa/Lat (2 View) (03/22/18 13:40) Albuterol Pre-Mix Nebs (Rt) (Proventil (03/22/18 13:40) Albuterol/Ipra Inhalation Soln (Duoneb I (03/22/18 13:45) Svn Small Volume Nebulizer (03/22/18 13:40) Albuterol Pre-Mix Nebs (Rt) (Proventil (03/22/18 13:40) Albuterol/Ipra Inhalation Soln (Duoneb I (03/22/18 13:40) Manual Differential (03/22/18 13:45) Ketorolac Injection (Toradol Injection) (03/22/18 14:30) Potassium Chloride (Tablet) (K Dur Table (03/22/18 14:30) Medications Given in ED Current Medications Medications Dose Ordered Sig/Nani Route Start Time Stop Time Status Last Admin Dose Admin Albuterol/ Ipratropium 3 ml ONCE ONCE INH 03/22/18 13:45 03/22/18 13:46 DC 03/22/18 13:51 3 ML Ketorolac Tromethamine 30 mg ONCE ONCE IVP 03/22/18 14:30 03/22/18 14:31 DC 03/22/18 14:32 30 MG Piperacillin Sod/ Tazobactam Sod 4.5 gm/Sodium Chloride 100 ml @ 200 mls/hr ONCE ONCE IV 03/22/18 13:45 03/22/18 14:14 DC 03/22/18 14:33 200 MLS/HR Potassium Chloride 20 meq ONCE ONCE PO 03/22/18 14:30 03/22/18 14:31 DC 03/22/18 15:00 20 MEQ Vital Signs/I&O 103/22/18 03/22/18 13:35 13:35 13:52 Temp 96.7 Pulse 100 Resp 24 B/P (MAP) 115/98 (104) Pulse Ox 100 99 100 O2 Delivery Room Air Room Air Room Air Capillary Refill : Progress Note : Time: 15:26 Progress Note Patient originally presented for what she thought was pneumonia. She does appear to have asthma exacerbation with lots of wheezing. Ordered an hour-long which she spent half of it blowing 2 atmosphere. Her breath sounds are significantly improved after the breathing treatment. Given her history of HIV and low white blood cell count it would be reasonable to hold onto her in the hospital for continued breathing treatments and management inpatient. We've ordered 20 mg tablets of potassium for her potassium at 2.8. She has declined the blood cultures as she thought that the nurse was stabbing her with a needle. The patient has declined to stay in the hospital however she feels that she is much better now and would like to go home. She says she has an appointment on Thursday morning with Dr. Snell and she can follow-up then. She says she has plenty of the albuterol nebulized inhalers at home. We reviewed her last CD4 count which was 2.4 from early February. She says she is getting her labs redrawn and at that she's been stable like this. Her last PCR in February was around 30,000 copies. We've given her strict return precautions. Diagnostic Imaging Diagonstic Imaging: Xray Plain Films/CT/US/NM/MRI: chest Comments [facility] [place] NAME: DANYELLE MENDEZ [facility] REC#: [id number] PT STATUS: REG ER : 1975 PHYSICIAN: DALLAS RICE MD ADMIT DATE: 03/22/18/ER Draft Date of Exam:03/22/18 CHEST PA/LAT (2 VIEW) INDICATION: Pneumonia. TECHNIQUE: PA and lateral views of the chest were obtained at 3:14 PM. COMPARISON: 10/16/2016. FINDINGS: The heart and mediastinal silhouette are normal in appearance. There is mild hyperinflation, compatible with COPD. There is no focal infiltrate, pneumothorax, or pleural fluid. IMPRESSION: COPD changes. No focal infiltrate. No change from 10/16/2016. Dictated on workstation # [id number] Dict: 03/22/18 1500 Trans: 03/22/18 1513 [id number] Interpreted by: NICOLE ZAVALA MD Electronically signed by: Reviewed: Reviewed by Me Departure Impression Primary Impression: Asthma with COPD Disposition: HOME, SELF-CARE Condition: Improved Departure-Patient Inst. Decision time for Depature: 15:42 Referrals: NO,LOCAL PHYSICIAN (PCP/Family) Primary Care Physician Patient Instructions: Asthma, Adult (DC) Add. Discharge Instructions: For the next week or so use the albuterol inhaler scheduled every 4 hours and every 2 hours if needed in between then for increased wheezing or shortness of breath. Follow-up with Dr. Snlel at your appointment on Thursday. Return to the ER nearest you if you begin to have worsening shortness of breath or wheezing but does not respond to the albuterol. Reduce or quit smoking for the time being to help with her asthma exacerbation. Continue all your other scheduled medicines. For your back pain you can use one tablet of Naprosyn twice a day as needed. Scripts Naproxen (Naprosyn) 500 Mg Tablet 500 MG PO BID for 14 Days, #30 TAB 0 Refills Prov: DALLAS RICE 03/22/18 DALLAS RICE Mar 22, 2018 13:46
--- OUTSIDE RECORDS SUMMARY | 2018-03-22 13:47 | XMS REPORT ---
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 86731688 Problem Anxiety F41.9 Active 35742829 Problem HIV (human immunodeficiency virus infection) Z21 Active 51819699 ALLERGIES No Information ENCOUNTERS Encounter Location Date Diagnosis [facility] [address] [address] Feb, [facility] [address] [address] 5806 Nov, [facility] [address] [address] Oct, Insect bite, initial encounter W57.XXXA and Acute nonintractable headache, unspecified headache type R51 [place] [id number] [place] [address] 23152- 8746 Sep, [facility] [address] 83834- 4891 Sep, [facility] [address] [address] Aug, Brown recluse spider bite or sting, accidental or unintentional, initial encounter T63.331A [facility] [id number] [place] [address] 46357- 4510 July, Bug bite, subsequent encounter W57.XXXD and Opioid use disorder F11.99 [facility] [address], [place] [address] July, Insect bite, initial encounter W57.XXXA [facility] [id number] [place] [address] 14065- 2918 July, [facility] [id number] [place] [address] 12907- 7312 July, [facility] [id number] [place] [address] 47684- 6088 July, Opioid use disorder, severe, dependence F11.20 and Alleged drug diversion Z65.3 [facility] [id number] [place] [address] 29807- 7898 July, [facility] [id number] [place] [address] 85223- 8240 Jun, [facility] [id number] [place] [address] 86715- 5557 Apr, [facility] [id number] [place] [address] 14390- 9822 Jan, HIV (human immunodeficiency virus infection) Z21 and Anxiety F41.9 [facility] [id number] [place] [address] 82855- 9479 Jan, [facility] [id number] [place] [address] [id number] Oct, [facility] [id number] [place] [address] 99120- 0397 Aug, HIV (human immunodeficiency virus infection) Z21 [facility] [id number] [place] [address] 18509- 3251 July, HIV (human immunodeficiency virus infection) Z21 [facility] [address] [place] [address] 83839- 6140 July, [facility] [id number] [place] [address] 62939- 8053 Apr, [facility] [id number] [place] [address] 08298- 4937 Mar, [facility] [id number] [place] [address] 46066 -6895 Jan, Ankle injury, right, initial encounter S99.911A and Shortness of breath R06.02 [facility] [id number] [place] [address] 83654 -8059 Dec, Hematoma T14.8 [facility] [id number] [place] [address] 41097- 8880 Dec, [facility] [id number] [place] [address] 68105- 2397 Sep, [facility] [id number] [place] [address] 94820- 1359 May, [facility] [id number] [place] [address] 89666- 9854 Apr, Positive PPD R76.11 [facility] [id number] [place] [address] 60109- 9185 Mar, [facility] [id number] [place] [address] 97202- 9774 Feb, Generalized abdominal pain R10.84 and Anxiety F41.9 [facility] [id number] [place] [address] 22996- 9639 July, [facility] [id number] [place] [address] 28911- 8802 14 Jun, 2014 [facility] [id number] [place] [address] 95324- 4206 13 Jun, 2014 [facility] [id number] [place] [address] 19317- 6590 Dec, [facility] [address] 03104- 5947 Dec, [facility] [place] [facility] [address] [id number] [place] [address] 1976 Dec, [facility] [place] [facility] [address] [id number] [place] [address] 2546 29 Nov, 2013 [facility] [place] [facility] [address] [id number] [place] [address] 2546 29 Nov, 2013 [facility] [place] [facility] [address] [id number] [place] [address] 2546 29 Nov, 2013 [facility] [place] [facility] [address] [id number] [place] [address] 2545 29 Nov, 2013 [facility] [place] [facility] [address] [id number] [place] [address]- 5237 29 Nov, 2013 [facility] [place] [facility] [address] [id number] [place] [address]- 7715 29 Nov, 2013 [facility] [place] [facility] [address] [id number] [place] [address] 2545 29 Nov, 2013 [facility] [place] [facility] [address] [id number] [place] [address] 2547 29 Nov, 2013 [facility] [place] [facility] [address] [id number] [place] [address] 2544 Nov, 2013 [facility] [place] [facility] [address] [id number] [place] [address] 2548 Nov, 2013 [facility] [place] [facility] [address] [id number] [place] [address] 2546 24 Nov, 2013 [facility] [place] [facility] [address] [id number] [place] [address] 2546 24 Nov, 2013 [facility] [place] [facility] [address] [id number] [place] [address] 2549 Nov, 2013 [facility] [place] [facility] [address] [id number] [place] [address] 2543 Nov, 2013 [facility] [place] [facility] [id number] [address]- 6[address] 22 Nov, 2013 [facility] [id number] [address]- 7890 18 Nov, 2013 [facility] [address], [place] [address]- 8892 Nov, [facility] [address], [place] [address]- 0179 17 Nov, 2013 [facility] [address] [address]- 9609 Nov, [facility] [address], [place] [address] 0006 Nov, [facility] [address], [place] [address]- 2676 Nov, [facility] [address], [place] [address]- 4624 Oct, [facility] [address], [place] [address]- 8356 Oct, [facility] [address], [place] [address]- 1642 May, IMMUNIZATIONS No Known Immunizations SOCIAL HISTORY Never Assessed REASON FOR VISIT PLAN OF CARE VITAL SIGNS MEDICATIONS Unknown Medications RESULTS No Results PROCEDURES No Known procedures INSTRUCTIONS MEDICATIONS ADMINISTERED No Known Medications MEDICAL (GENERAL) HISTORY Type Description Date Medical History HIV Medical History anxiety Surgical History gallbladder Surgical History tubal ligation Surgical History hysterectomy, total with bilateral salpingo-oophorectomy (BSO )
--- OUTSIDE RECORDS SUMMARY | 2018-03-22 13:47 | XMS REPORT ---
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 48181304 Problem Anxiety F41.9 Active 71298743 Problem HIV (human immunodeficiency virus infection) Z21 Active 93616114 ALLERGIES No Information ENCOUNTERS Encounter Location Date Diagnosis [facility] [address] [address]- [address] Feb, [facility] [address] 41834- 9033 Nov, [facility] [address] [address] Oct, Insect bite, initial encounter W57.XXXA and Acute nonintractable headache, unspecified headache type R[address] [place] [id number] [place] [address] 09916- 8865 Sep, [facility] [address] 06331- 7417 Sep, [facility] [address] 80358 [address] Aug, Brown recluse spider bite or sting, accidental or unintentional, initial encounter T63.331A [facility] [id number] [place] [address] 36119- 8932 July, Bug bite, subsequent encounter W57.XXXD and Opioid use disorder F11.99 [facility] [address], [place] [address] July, Insect bite, initial encounter W57.XXXA [facility] [id number] [place] [address] 73903- 6891 July, [facility] [id number] [place] [address] 68735- 8414 July, [facility] [id number] [place] [address] 15313- 9622 July, Opioid use disorder, severe, dependence F11.20 and Alleged drug diversion Z65.3 [facility] [id number] [place] [address] 40333- 0375 July, [facility] [id number] [place] [address] 48452- 0063 Jun, [facility] [id number] [place] [address] 02330- 9928 Apr, [facility] [id number] [place] [address] 15591- 6043 Jan, HIV (human immunodeficiency virus infection) Z21 and Anxiety F41.9 [facility] [id number] [place] [address] 85669- 5123 Jan, [facility] [id number] [place] [address] [id number] Oct, [facility] [id number] [place] [address] 52539- 7479 Aug, HIV (human immunodeficiency virus infection) Z21 [facility] [id number] [place] [address] 27776- 3420 July, HIV (human immunodeficiency virus infection) Z21 [facility] [address] [place] [address] 82298- 4018 July, [facility] [id number] [place] [address] 40256- 1870 Apr, [facility] [id number] [place] [address] 28587- 9872 Mar, [facility] [id number] [place] [address] 88352 -2409 Jan, Ankle injury, right, initial encounter S99.911A and Shortness of breath R06.02 [facility] [id number] [place] [address] 71945 -3051 Dec, Hematoma T14.8 [facility] [id number] [place] [address] 02238- 0043 Dec, [facility] [id number] [place] [address] 37992- 3815 Sep, [facility] [id number] [place] [address] 95598- 7754 May, [facility] [id number] [place] [address] 34228- 0659 Apr, Positive PPD R76.11 [facility] [id number] [place] [address] 49015- 4617 Mar, [facility] [id number] [place] [address] 68465- 0149 Feb, Generalized abdominal pain R10.84 and Anxiety F41.9 [facility] [id number] [place] [address] 16378- 5521 July, [facility] [id number] [place] [address] 21817- 7597 14 Jun, 2014 [facility] [id number] [place] [address] 91590- 7816 13 Jun, 2014 [facility] [id number] [place] [address] 52882- 5927 Dec, [facility] [address] 16407- 2811 Dec, [facility] [place] [facility] [address] [id number] [place] [address]- 0176 Dec, [facility] [place] [facility] [address] [id number] [place] [address] 2546 29 Nov, 2013 [facility] [place] [facility] [address] [id number] [place] [address] 2546 29 Nov, 2013 [facility] [place] [facility] [address] [id number] [place] [address] 2546 29 Nov, 2013 [facility] [place] [facility] [address] [id number] [place] [address] 2545 29 Nov, 2013 [facility] [place] [facility] [address] [id number] [place] [address]- 7737 29 Nov, 2013 [facility] [place] [facility] [address] [id number] [place] [address]- 4277 29 Nov, 2013 [facility] [place] [facility] [address] [id number] [place] [address] 2542 29 Nov, 2013 [facility] [place] [facility] [address] [id number] [place] [address] 2543 29 Nov, 2013 [facility] [place] [facility] [address] [id number] [place] [address] 2547 Nov, 2013 [facility] [place] [facility] [address] [id number] [place] [address] 2543 Nov, 2013 [facility] [place] [facility] [address] [id number] [place] [address] 2546 24 Nov, 2013 [facility] [place] [facility] [address] [id number] [place] [address] 2546 24 Nov, 2013 [facility] [place] [facility] [address] [id number] [place] [address] 2549 Nov, 2013 [facility] [place] [facility] [address] [id number] [place] [address] 2543 Nov, 2013 [facility] [place] [facility] [id number], [place] [address]- 4467 22 Nov, 2013 [facility] [id number], [place] [address]- 8217 18 Nov, 2013 [facility] [address], [place] [address]- 0629 Nov, [facility] [address], [place] [address]- 6018 17 Nov, 2013 [facility] [address], [place] [address]- 0623 Nov, [facility] [address], [place] [address]- 9269 Nov, [facility] [address], [place] [address]- 5930 Nov, [facility] [address], [place] [address]- 5217 Oct, [facility] [address], [place] [address]- 2342 Oct, [facility] [address], [place] [address]- 8793 May, IMMUNIZATIONS No Known Immunizations SOCIAL HISTORY [...]
--- OUTSIDE RECORDS SUMMARY | 2018-03-22 13:47 | XMS REPORT ---
Author Author SHERICE HAYES Organization [facility] Address [address] 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 86132446 Problem Anxiety F41.9 Active 08905487 Problem HIV (human immunodeficiency virus infection) Z21 Active 28430200 ALLERGIES No Information ENCOUNTERS Encounter Location Date Diagnosis [facility] [address] 16089- 4155 Feb, [facility] [address] 22696- 2469 Nov, [facility] [address] 77[address]0343 Oct, Insect bite, initial encounter W57.XXXA and Acute nonintractable headache, unspecified headache type R51 [facility] [id number] [place] [address] 89250- 7526 Sep, [facility] [id number] [place] [address] 17909- 3660 Sep, [facility] [address] 89472 -7[address] Aug, Brown recluse spider bite or sting, accidental or unintentional, initial encounter T63.331A [facility] [id number] [place] [address] 90747- 9850 July, Bug bite, subsequent encounter W57.XXXD and Opioid use disorder F11.99 [facility] [address], [place] [address] July, Insect bite, initial encounter W57.XXXA [facility] [id number] [place] [address] 62241- 9555 July, [facility] [id number] [place] [address] 46027- 2308 July, [facility] [address] 09001- 6547 July, Opioid use disorder, severe, dependence F11.20 and Alleged drug diversion Z65.3 [facility] [address] 23384- 0007 July, [facility] [id number] [place] [address] 88606- 4084 Jun, [facility] [address] 55857- 3785 Apr, [facility] [id number] [place] [address] 62156- 1628 Jan, HIV (human immunodeficiency virus infection) Z21 and Anxiety F41.9 [facility] [id number] [place] [address] 26457- 2051 Jan, [facility] [address] [id number] Oct, [facility] [id number] [place] [address] 31049- 4932 Aug, HIV (human immunodeficiency virus infection) Z21 [facility] [id number] [place] [address] 45237- 4601 July, HIV (human immunodeficiency virus infection) Z21 [facility] [id number] [place] [address] 93374- 6306 July, [facility] [address] 40504- 6173 10 Apr, 2016 [facility] [id number] [place] [address] 40886- 0237 Mar, [facility] [id number] [place] [address] 98961 -0845 Jan, Ankle injury, right, initial encounter S99.911A and Shortness of breath R06.02 [facility] [id number] [place] [address] 87130 -9476 Dec, Hematoma T14.8 [facility] [id number] [place] [address] 19843- 0823 Dec, [facility] [address] 63735- 3704 Sep, [facility] [id number] [place] [address] 78473- 0553 May, [facility] [id number] [place] [address] 11441- 7016 Apr, Positive PPD R76.11 [facility] [id number] [place] [address] 05017- 9936 Mar, [facility] [id number] [place] [address] 76217- 8115 Feb, Generalized abdominal pain R10.84 and Anxiety F41.9 [facility] [id number] [place] [address] 22763- 0213 July, [facility] [id number] [place] [address] 93323- 2434 14 Jun, 2014 [facility] [address] 47872- 1145 13 Jun, 2014 [facility] [id number] [place] [address] 74519- 4887 Dec, [facility] [address] 28620- 2535 Dec, [facility] [place] [facility] [address] [id number] [place] [address]- 1086 Dec, [facility] [place] [facility] [address] [id number] [place] [address] 2546 29 Nov, 2013 [facility] [place] [facility] [address] [id number] [place] [address] 2546 29 Nov, 2013 [facility] [place] [facility] [address] [id number] [place] [address] 29 Nov, 2013 [facility] [place] [facility] [address] [id number] [place] [address]45 29 Nov, 2013 [facility] [place] [facility] [address] [id number] [place] [address] 29 Nov, 2013 [facility] [place] [facility] [address] [id number] [place] [address] 29 Nov, 2013 [facility] [place] [facility] [address] [id number] [place] [address] 29 Nov, 2013 [facility] [place] [facility] [address] [id number] [place] [address] 2540 29 Nov, 2013 [facility] [place] [facility] [address] [id number] [place] [address] Nov, 2013 [facility] [place] [facility] [address] [id number], [place] [address] Nov, 2013 [facility] [place] [facility] [address] [id number], [place] [address] 24 Nov, 2013 [facility] [place] [facility] [address] [id number] [place] [address]44 24 Nov, 2013 [facility] [place] [facility] [address] [id number] [place] [address] 254 23 Nov, 2013 [facility] [place] [facility] [address] [id number] [place] [address] Nov, 2013 [facility] [place] [facility] [address] [id number], [place] [address] 22 Nov, 2013 [facility] [address] [id number], [place] [address] 18 Nov, 2013 [facility] [id number], [place] [address] Nov, [facility] [address] [id number], [place] [address] 17 Nov, 2013 [facility] [id number], [place] [address] Nov, [facility] [id number], [place] [address] Nov, [facility] [id number] [place] [address] Nov, [facility] [id number] [place] [address] Oct, [facility] [id number], [place] [address] Oct, [facility] [address] [id number], [place] [address] May, IMMUNIZATIONS No Known Immunizations SOCIAL HISTORY [...]
--- OUTSIDE RECORDS SUMMARY | 2018-03-22 13:47 | XMS REPORT ---
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 01468847 Problem Anxiety F41.9 Active 35856492 Problem HIV (human immunodeficiency virus infection) Z21 Active 06173600 ALLERGIES No Information ENCOUNTERS Encounter Location Date Diagnosis [facility] [address] [address] Feb, [facility] [address] 27819- 1419 Nov, [facility] [address] [address] Oct, Insect bite, initial encounter W57.XXXA and Acute nonintractable headache, unspecified headache type R51 [place] [id number] [place] [address] 24692- 8585 Sep, [facility] [address] 82832- 9883 Sep, [facility] [address] [address]40 [address]2782 Aug, Brown recluse spider bite or sting, accidental or unintentional, initial encounter T63.331A [facility] [id number] [place] [address] 12526- 7292 July, Bug bite, subsequent encounter W57.XXXD and Opioid use disorder F11.99 [facility] [address], [place] [address] July, Insect bite, initial encounter W57.XXXA [facility] [id number] [place] [address] 47698- 9763 July, [facility] [id number] [place] [address] 35628- 7027 July, [facility] [id number] [place] [address] 85636- 0805 July, Opioid use disorder, severe, dependence F11.20 and Alleged drug diversion Z65.3 [facility] [id number] [place] [address] 39901- 6865 July, [facility] [id number] [place] [address] 92197- 3349 Jun, [facility] [id number] [place] [address] 96725- 2206 Apr, [facility] [id number] [place] [address] 23531- 4067 Jan, HIV (human immunodeficiency virus infection) Z21 and Anxiety F41.9 [facility] [id number] [place] [address] 07100- 9623 Jan, [facility] [id number] [place] [address] [id number] Oct, [facility] [id number] [place] [address] 10407- 9499 Aug, HIV (human immunodeficiency virus infection) Z21 [facility] [id number] [place] [address] 78823- 3189 July, HIV (human immunodeficiency virus infection) Z21 [facility] [address] [place] [address] 28313- 1432 July, [facility] [id number] [place] [address] 00170- 7427 Apr, [facility] [id number] [place] [address] 14682- 7786 Mar, [facility] [id number] [place] [address] 55516 -7550 Jan, Ankle injury, right, initial encounter S99.911A and Shortness of breath R06.02 [facility] [id number] [place] [address] 97758 -7122 Dec, Hematoma T14.8 [facility] [id number] [place] [address] 41320- 3684 Dec, [facility] [id number] [place] [address] 79287- 2166 Sep, [facility] [id number] [place] [address] 10246- 4356 May, [facility] [id number] [place] [address] 41641- 5550 Apr, Positive PPD R76.11 [facility] [id number] [place] [address] 13159- 4080 Mar, [facility] [id number] [place] [address] 96191- 4379 Feb, Generalized abdominal pain R10.84 and Anxiety F41.9 [facility] [id number] [place] [address] 95055- 5214 July, [facility] [id number] [place] [address] 56444- 1534 14 Jun, 2014 [facility] [id number] [place] [address] 83380- 7375 13 Jun, 2014 [facility] [id number] [place] [address] 16689- 0823 Dec, [facility] [address] 30029- 0756 Dec, [facility] [place] [facility] [address] [id number] [place] [address]- 2696 Dec, [facility] [place] [facility] [address] [id number] [place] [address] 2546 29 Nov, 2013 [facility] [place] [facility] [address] [id number] [place] [address] 2546 29 Nov, 2013 [facility] [place] [facility] [address] [id number] [place] [address] 2546 29 Nov, 2013 [facility] [place] [facility] [address] [id number] [place] [address] 2547 29 Nov, 2013 [facility] [place] [facility] [address] [id number] [place] [address]- 4276 29 Nov, 2013 [facility] [place] [facility] [address] [id number] [place] [address]- 0352 29 Nov, 2013 [facility] [place] [facility] [address] [id number] [place] [address] 2544 29 Nov, 2013 [facility] [place] [facility] [address] [id number] [place] [address] 254 29 Nov, 2013 [facility] [place] [facility] [address] [id number] [place] [address] 2541 Nov, 2013 [facility] [place] [facility] [address] [id number] [place] [address] 2541 Nov, 2013 [facility] [place] [facility] [address] [id number] [place] [address] 2546 24 Nov, 2013 [facility] [place] [facility] [address] [id number] [place] [address] 2546 24 Nov, 2013 [facility] [place] [facility] [address] [id number] [place] [address] 2541 Nov, 2013 [facility] [place] [facility] [address] [id number] [place] [address] 2549 Nov, 2013 [facility] [place] [facility] [id number], [place] [address]- 4889 22 Nov, 2013 [facility] [id number] [address]- 4799 18 Nov, 2013 [facility] [address], [place] [address]- 0121 Nov, [facility] [address], [place] [address]- 6410 17 Nov, 2013 [facility] [address], [place] [address]- 1229 Nov, [facility] [address], [place] [address]- 5233 Nov, [facility] [address], [place] [address]- 4778 Nov, [facility] [address], [place] [address]- 5438 Oct, [facility] [address], [place] [address]- 8156 Oct, [facility] [address], [place] [address]- 6570 May, IMMUNIZATIONS No Known Immunizations SOCIAL HISTORY [...]
--- OUTSIDE RECORDS SUMMARY | 2018-03-22 13:48 | XMS REPORT ---
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 17846345 Problem Anxiety F41.9 Active 03541741 Problem HIV (human immunodeficiency virus infection) Z21 Active 26213685 ALLERGIES No Information ENCOUNTERS Encounter Location Date Diagnosis [facility] [address] [address]- 6313 Feb, [facility] [address] 59865- 6578 Nov, [facility] [address] [address] Oct, Insect bite, initial encounter W57.XXXA and Acute nonintractable headache, unspecified headache type R51 [place] [id number] [place] [address] 74998- 2288 Sep, [facility] [address] 78018- 7372 Sep, [facility] [address] [address] Aug, Brown recluse spider bite or sting, accidental or unintentional, initial encounter T63.331A [facility] [id number] [place] [address] 41170- 7530 July, Bug bite, subsequent encounter W57.XXXD and Opioid use disorder F11.99 [facility] [address], [place] [address] July, Insect bite, initial encounter W57.XXXA [facility] [id number] [place] [address] 57818- 0761 July, [facility] [id number] [place] [address] 73439- 0689 July, [facility] [id number] [place] [address] 05064- 5860 July, Opioid use disorder, severe, dependence F11.20 and Alleged drug diversion Z65.3 [facility] [id number] [place] [address] 04054- 2852 July, [facility] [id number] [place] [address] 66764- 9250 Jun, [facility] [id number] [place] [address] 82903- 1235 Apr, [facility] [id number] [place] [address] 70824- 1076 Jan, HIV (human immunodeficiency virus infection) Z21 and Anxiety F41.9 [facility] [id number] [place] [address] 99771- 8664 Jan, [facility] [id number] [place] [address] [id number] Oct, [facility] [id number] [place] [address] 95476- 5206 Aug, HIV (human immunodeficiency virus infection) Z21 [facility] [id number] [place] [address] 93100- 2230 July, HIV (human immunodeficiency virus infection) Z21 [facility] [address] [place] [address] 03189- 0595 July, [facility] [id number] [place] [address] 26761- 4570 Apr, [facility] [id number] [place] [address] 51661- 3010 Mar, [facility] [id number] [place] [address] 25007 -1307 Jan, Ankle injury, right, initial encounter S99.911A and Shortness of breath R06.02 [facility] [id number] [place] [address] 97346 -9781 Dec, Hematoma T14.8 [facility] [id number] [place] [address] 12165- 1202 Dec, [facility] [id number] [place] [address] 25710- 2732 Sep, [facility] [id number] [place] [address] 98460- 0812 May, [facility] [id number] [place] [address] 93415- 7904 Apr, Positive PPD R76.11 [facility] [id number] [place] [address] 28231- 4571 Mar, [facility] [id number] [place] [address] 23092- 2360 Feb, Generalized abdominal pain R10.84 and Anxiety F41.9 [facility] [id number] [place] [address] 58809- 8422 July, [facility] [id number] [place] [address] 58053- 3849 14 Jun, 2014 [facility] [id number] [place] [address] 70888- 6961 13 Jun, 2014 [facility] [id number] [place] [address] 49892- 9676 Dec, [facility] [address] 24240- 4249 Dec, [facility] [place] [facility] [address] [id number] [place] [address]- 2046 Dec, [facility] [place] [facility] [address] [id number] [place] [address] 2546 29 Nov, 2013 [facility] [place] [facility] [address] [id number] [place] [address] 2546 29 Nov, 2013 [facility] [place] [facility] [address] [id number] [place] [address] 2546 29 Nov, 2013 [facility] [place] [facility] [address] [id number] [place] [address] 2547 29 Nov, 2013 [facility] [place] [facility] [address] [id number] [place] [address]- 4109 29 Nov, 2013 [facility] [place] [facility] [address] [id number] [place] [address]- 6890 29 Nov, 2013 [facility] [place] [facility] [address] [id number] [place] [address] 2541 29 Nov, 2013 [facility] [place] [facility] [address] [id number] [place] [address] 254 29 Nov, 2013 [facility] [place] [facility] [address] [id number] [place] [address] 2542 Nov, 2013 [facility] [place] [facility] [address] [id number] [place] [address] 2549 Nov, 2013 [facility] [place] [facility] [address] [id number] [place] [address] 2546 24 Nov, 2013 [facility] [place] [facility] [address] [id number] [place] [address] 2546 24 Nov, 2013 [facility] [place] [facility] [address] [id number] [place] [address] 2542 Nov, 2013 [facility] [place] [facility] [address] [id number] [place] [address] 2543 Nov, 2013 [facility] [place] [facility] [id number], [place] [address]- 6533 22 Nov, 2013 [facility] [address] [id number], [place] [address]- 9798 18 Nov, 2013 [facility] [address], [place] [address]- 3955 Nov, [facility] [address], [place] [address]- 9438 17 Nov, 2013 [facility] [address], [place] [address]- 5124 Nov, [facility] [address], [place] [address]- 7514 Nov, [facility] [address], [place] [address]- 7055 Nov, [facility] [address], [place] [address]- 2024 Oct, [facility] [address], [place] [address]- 0818 Oct, [facility] [address], [place] [address]- 7194 May, IMMUNIZATIONS No Known Immunizations SOCIAL HISTORY [...]
--- OUTSIDE RECORDS SUMMARY | 2018-03-22 13:48 | XMS REPORT ---
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 15264454 Problem Anxiety F41.9 Active 53775202 Problem HIV (human immunodeficiency virus infection) Z21 Active 73954740 ALLERGIES No Information ENCOUNTERS Encounter Location Date Diagnosis [facility] [address] [address]- 6061 Feb, [facility] [address] 07154- 0968 Nov, [facility] [address] [address]84 Oct, Insect bite, initial encounter W57.XXXA and Acute nonintractable headache, unspecified headache type R51 [address] [address] [id number] [place] [address] 20699- 3817 Sep, [facility] [address] 62122- 8881 Sep, [facility] [address] 38765 -9235 Aug, Brown recluse spider bite or sting, accidental or unintentional, initial encounter T63.331A [facility] [id number] [place] [address] 57247- 5615 July, Bug bite, subsequent encounter W57.XXXD and Opioid use disorder F11.99 [facility] [address], [place] [address] July, Insect bite, initial encounter W57.XXXA [facility] [id number] [place] [address] 89521- 6146 July, [facility] [id number] [place] [address] 86520- 6233 July, [facility] [id number] [place] [address] 44214- 8228 July, Opioid use disorder, severe, dependence F11.20 and Alleged drug diversion Z65.3 [facility] [id number] [place] [address] 57502- 1950 July, [facility] [id number] [place] [address] 94874- 5369 Jun, [facility] [id number] [place] [address] 07083- 5265 Apr, [facility] [id number] [place] [address] 89450- 5351 Jan, HIV (human immunodeficiency virus infection) Z21 and Anxiety F41.9 [facility] [id number] [place] [address] 57231- 1642 Jan, [facility] [id number] [place] [address] [id number] Oct, [facility] [id number] [place] [address] 39341- 1893 Aug, HIV (human immunodeficiency virus infection) Z21 [facility] [id number] [place] [address] 64970- 5535 July, HIV (human immunodeficiency virus infection) Z21 [facility] [address] [place] [address] 98556- 4512 July, [facility] [id number] [place] [address] 75848- 3404 Apr, [facility] [id number] [place] [address] 95648- 1426 Mar, [facility] [id number] [place] [address] 80117 -9858 Jan, Ankle injury, right, initial encounter S99.911A and Shortness of breath R06.02 [facility] [id number] [place] [address] 76990 -7925 Dec, Hematoma T14.8 [facility] [id number] [place] [address] 29808- 1190 Dec, [facility] [id number] [place] [address] 29131- 7770 Sep, [facility] [id number] [place] [address] 87406- 9377 May, [facility] [id number] [place] [address] 82011- 9055 Apr, Positive PPD R76.11 [facility] [id number] [place] [address] 23362- 6851 Mar, [facility] [id number] [place] [address] 76806- 8317 Feb, Generalized abdominal pain R10.84 and Anxiety F41.9 [facility] [id number] [place] [address] 00717- 2318 July, [facility] [id number] [place] [address] 35087- 2985 14 Jun, 2014 [facility] [id number] [place] [address] 73492- 5109 13 Jun, 2014 [facility] [id number] [place] [address] 77527- 6431 Dec, [facility] [address] 82669- 2997 Dec, [facility] [place] [facility] [address] [id number] [place] [address]- 6636 Dec, [facility] [place] [facility] [address] [id number] [place] [address] 2546 29 Nov, 2013 [facility] [place] [facility] [address] [id number] [place] [address] 2546 29 Nov, 2013 [facility] [place] [facility] [address] [id number] [place] [address] 2546 29 Nov, 2013 [facility] [place] [facility] [address] [id number] [place] [address] 2545 29 Nov, 2013 [facility] [place] [facility] [address] [id number] [place] [address]- 4347 29 Nov, 2013 [facility] [place] [facility] [address] [id number] [place] [address]- 2565 29 Nov, 2013 [facility] [place] [facility] [address] [id number] [place] [address] 2547 29 Nov, 2013 [facility] [place] [facility] [address] [id number] [place] [address] 2542 29 Nov, 2013 [facility] [place] [facility] [address] [id number] [place] [address] 2545 Nov, 2013 [facility] [place] [facility] [address] [id number] [place] [address] 2543 Nov, 2013 [facility] [place] [facility] [address] [id number] [place] [address] 2546 24 Nov, 2013 [facility] [place] [facility] [address] [id number] [place] [address] 2546 24 Nov, 2013 [facility] [place] [facility] [address] [id number] [place] [address] 2547 Nov, 2013 [facility] [place] [facility] [address] [id number] [place] [address] 2543 Nov, 2013 [facility] [place] [facility] [id number], [place] [address]- 6566 22 Nov, 2013 [facility] [id number], [place] [address]- 1625 18 Nov, 2013 [facility] [id number] [address] Nov, [facility] [address] [id number] [address] Nov, [facility] [id number] [address] Nov, [facility] [id number] [address] Nov, [facility] [id number] [address] Nov, [facility] [id number] [address] Oct, [facility] [id number] [address] Oct, [facility] [id number] [address] May, IMMUNIZATIONS No Known Immunizations SOCIAL HISTORY Never Assessed REASON FOR VISIT [facility] PLAN OF CARE VITAL SIGNS MEDICATIONS Unknown Medications RESULTS No Results PROCEDURES No Known procedures INSTRUCTIONS MEDICATIONS ADMINISTERED No Known Medications MEDICAL (GENERAL) HISTORY Type Description Date Medical History HIV Medical History anxiety Surgical History gallbladder Surgical History tubal ligation Surgical History hysterectomy, total with bilateral salpingo-oophorectomy (BSO )
--- OUTSIDE RECORDS SUMMARY | 2018-03-22 13:48 | XMS REPORT ---
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 84299654 Problem Anxiety F41.9 Active 27061547 Problem HIV (human immunodeficiency virus infection) Z21 Active 51673673 ALLERGIES No Information ENCOUNTERS Encounter Location Date Diagnosis [facility] [address] [address]- 299[address] Feb, [facility] [address] 26983- 8622 Nov, [facility] [address] [address] Oct, Insect bite, initial encounter W57.XXXA and Acute nonintractable headache, unspecified headache type R51 [place] [id number] [place] [address] 36280- 3206 Sep, [facility] [address] 87748- 6821 Sep, [facility] [address] 15556 [address] Aug, Brown recluse spider bite or sting, accidental or unintentional, initial encounter T63.331A [facility] [id number] [place] [address] 50660- 9580 July, Bug bite, subsequent encounter W57.XXXD and Opioid use disorder F11.99 [facility] [address] [address] July, Insect bite, initial encounter W57.XXXA [facility] [id number] [place] [address] 63012- 2532 July, [facility] [id number] [place] [address] 77537- 4670 July, [facility] [id number] [place] [address] 02751- 5637 July, Opioid use disorder, severe, dependence F11.20 and Alleged drug diversion Z65.3 [facility] [id number] [place] [address] 70282- 9240 July, [facility] [id number] [place] [address] 16934- 8618 Jun, [facility] [id number] [place] [address] 93263- 6668 Apr, [facility] [id number] [place] [address] 12564- 7549 Jan, HIV (human immunodeficiency virus infection) Z21 and Anxiety F41.9 [facility] [id number] [place] [address] 76846- 1507 Jan, [facility] [place] [id number] [place] [address] [id number] Oct, [facility] [id number] [place] [address] 67787- 4238 Aug, HIV (human immunodeficiency virus infection) Z21 [facility] [id number] [place] [address] 47718- 3406 July, HIV (human immunodeficiency virus infection) Z21 [facility] [address] [place] [address] 79264- 8499 July, [facility] [id number] [place] [address] 86703- 9240 Apr, [facility] [id number] [place] [address] 93565- 4761 Mar, [facility] [id number] [place] [address] 90837 -9170 Jan, Ankle injury, right, initial encounter S99.911A and Shortness of breath R06.02 [facility] [id number] [place] [address] 69531 -9150 Dec, Hematoma T14.8 [facility] [id number] [place] [address] 19851- 3619 Dec, [facility] [id number] [place] [address] 99838- 7806 Sep, [facility] [id number] [place] [address] 12433- 8943 May, [facility] [id number] [place] [address] 75768- 7542 Apr, Positive PPD R76.11 [facility] [id number] [place] [address] 95576- 1242 Mar, [facility] [id number] [place] [address] 79563- 0577 Feb, Generalized abdominal pain R10.84 and Anxiety F41.9 [facility] [id number] [place] [address] 14298- 9585 July, [facility] [id number] [place] [address] 24876- 6294 14 Jun, 2014 [facility] [id number] [place] [address] 83648- 6062 13 Jun, 2014 [facility] [id number] [place] [address] 03199- 0008 Dec, [facility] [address] 90649- 0498 Dec, [facility] [place] [facility] [address] [id number] [place] [address]- 3556 Dec, [facility] [place] [facility] [address] [id number] [place] [address] 2546 29 Nov, 2013 [facility] [place] [facility] [address] [id number] [place] [address] 2546 29 Nov, 2013 [facility] [place] [facility] [address] [id number] [place] [address] 2546 29 Nov, 2013 [facility] [place] [facility] [address] [id number] [place] [address] 2544 29 Nov, 2013 [facility] [place] [facility] [address] [id number] [place] [address]- 9123 29 Nov, 2013 [facility] [place] [facility] [address] [id number] [place] [address]- 8610 29 Nov, 2013 [facility] [place] [facility] [address] [id number] [place] [address] 2548 29 Nov, 2013 [facility] [place] [facility] [address] [id number] [place] [address] 254 29 Nov, 2013 [facility] [place] [facility] [address] [id number] [place] [address] 2542 Nov, 2013 [facility] [place] [facility] [address] [id number] [place] [address] 2547 Nov, 2013 [facility] [place] [facility] [address] [id number] [place] [address] 2546 24 Nov, 2013 [facility] [place] [facility] [address] [id number] [place] [address] 2546 24 Nov, 2013 [facility] [place] [facility] [address] [id number] [place] [address] 2543 Nov, 2013 [facility] [place] [facility] [address] [id number] [place] [address] 2547 Nov, 2013 [facility] [place] [facility] [id number] [address]- 0858 22 Nov, 2013 [facility] [id number] [address]- 4868 18 Nov, 2013 [facility] [address] [address]- 7842 Nov, [facility] [address] [address]- 8907 17 Nov, 2013 [facility] [address] [address]- 9744 Nov, [facility] [address] [address]- 5823 Nov, [facility] [address] [address]- 3378 Nov, [facility] [address] [address]- 6522 Oct, [facility] [address] [address]- 2569 Oct, [facility] [address] [address]- 4[address] May, IMMUNIZATIONS No Known Immunizations SOCIAL HISTORY [...]
--- OUTSIDE RECORDS SUMMARY | 2018-03-22 13:48 | XMS REPORT ---
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 32723859 Problem Anxiety F41.9 Active 81799270 Problem HIV (human immunodeficiency virus infection) Z21 Active 15207990 ALLERGIES No Information ENCOUNTERS Encounter Location Date Diagnosis [facility] [address] [address]- 5616 Feb, [facility] [address] 42942- 7676 Nov, [facility] [address] [address] Oct, Insect bite, initial encounter W57.XXXA and Acute nonintractable headache, unspecified headache type [address] [place] [id number] [place] [address] 02500- 9591 Sep, [facility] [address] 31416- 5161 Sep, [facility] [address] 60244 -8034 Aug, Brown recluse spider bite or sting, accidental or unintentional, initial encounter T63.331A [facility] [id number] [place] [address] 37463- 6379 July, Bug bite, subsequent encounter W57.XXXD and Opioid use disorder F11.99 [facility] [address] [address] July, Insect bite, initial encounter W57.XXXA [facility] [id number] [place] [address] 66399- 6131 July, [facility] [id number] [place] [address] 22953- 7803 July, [facility] [id number] [place] [address] 06929- 1197 July, Opioid use disorder, severe, dependence F11.20 and Alleged drug diversion Z65.3 [facility] [id number] [place] [address] 57788- 7086 July, [facility] [id number] [place] [address] 28668- 4846 Jun, [facility] [id number] [place] [address] 17399- 1443 Apr, [facility] [id number] [place] [address] 14088- 6655 Jan, HIV (human immunodeficiency virus infection) Z21 and Anxiety F41.9 [facility] [id number] [place] [address] 02114- 6938 Jan, [facility] [id number] [place] [address] [id number] Oct, [facility] [id number] [place] [address] 45914- 0306 Aug, HIV (human immunodeficiency virus infection) Z21 [facility] [id number] [place] [address] 81452- 2916 July, HIV (human immunodeficiency virus infection) Z21 [facility] [id number] [place] [address] 26672- 7981 July, [facility] [id number] [place] [address] 00106- 0278 Apr, [facility] [id number] [place] [address] 81177- 9762 Mar, [facility] [id number] [place] [address] 26524 -9039 Jan, Ankle injury, right, initial encounter S99.911A and Shortness of breath R06.02 [facility] [id number] [place] [address] 56662 -7934 Dec, Hematoma T14.8 [facility] [id number] [place] [address] 43300- 9786 Dec, [facility] [id number] [place] [address] 46917- 2820 Sep, [facility] [id number] [place] [address] 24283- 5204 May, [facility] [id number] [place] [address] 37087- 7516 Apr, Positive PPD R76.11 [facility] [id number] [place] [address] 87616- 5424 Mar, [facility] [id number] [place] [address] 47048- 9031 Feb, Generalized abdominal pain R10.84 and Anxiety F41.9 [facility] [id number] [place] [address] 36795- 9722 July, [facility] [id number] [place] [address] 42882- 5339 14 Jun, 2014 [facility] [id number] [place] [address] 53430- 8310 13 Jun, 2014 [facility] [id number] [place] [address] 51590- 2740 Dec, [facility] [address] 64314- 9217 Dec, [facility] [place] [facility] [address] [id number] [place] [address]- 0866 Dec, [facility] [place] [facility] [address] [id number] [place] [address] 2546 29 Nov, 2013 [facility] [place] [facility] [address] [id number] [place] [address] 2546 29 Nov, 2013 [facility] [place] [facility] [address] [id number] [place] [address] 2546 29 Nov, 2013 [facility] [place] [facility] [address] [id number] [place] [address] 2545 29 Nov, 2013 [facility] [place] [facility] [address] [id number] [place] [address]- 1413 29 Nov, 2013 [facility] [place] [facility] [address] [id number] [place] [address]- 2577 29 Nov, 2013 [facility] [place] [facility] [address] [id number] [place] [address] 254 29 Nov, 2013 [facility] [place] [facility] [address] [id number] [place] [address] 254 29 Nov, 2013 [facility] [place] [facility] [address] [id number] [place] [address] 2545 Nov, 2013 [facility] [place] [facility] [address] [id number] [place] [address] 2544 Nov, 2013 [facility] [place] [facility] [address] [id number] [place] [address] 2546 24 Nov, 2013 [facility] [place] [facility] [address] [id number] [place] [address] 2546 24 Nov, 2013 [facility] [place] [facility] [address] [id number] [place] [address] 2541 Nov, 2013 [facility] [place] [facility] [address] [id number] [place] [address] 2547 Nov, 2013 [facility] [place] [facility] [id number] [address]- 9777 22 Nov, 2013 [facility] [id number] [address]- 1450 18 Nov, 2013 [facility] [address] [address]- 2690 Nov, [facility] [address] [address]- 7999 17 Nov, 2013 [facility] [address] [address]- 1629 Nov, [facility] [address] [address]- 2890 Nov, [facility] [address] [address]- 3539 Nov, [facility] [address] [address]- 7328 Oct, [facility] [address] [address]- 1918 Oct, [facility] [address] [address]- 1994 May, IMMUNIZATIONS No Known Immunizations SOCIAL HISTORY [...]
--- OUTSIDE RECORDS SUMMARY | 2018-03-22 13:48 | XMS REPORT ---
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 [address] [address]- [address]596 Feb, [facility] [address] 17624- 1187 Nov, [facility] [address] 7[address] Oct, Insect bite, initial encounter W57.XXXA and Acute nonintractable headache, unspecified headache type R[id number] [place] [address] 88578- 8907 Sep, [facility] [address] 17100- 4039 Sep, [facility] [address] 02185 -4129 Aug, Brown recluse spider bite or sting, accidental or unintentional, initial encounter T63.331A [facility] [id number] [place] [address] 81631- 0334 July, Bug bite, subsequent encounter W57.XXXD and Opioid use disorder F11.99 [facility] [address], [place] [address] July, Insect bite, initial encounter W57.XXXA [facility] [id number] [place] [address] 32763- 4130 July, [facility] [id number] [place] [address] 62894- 8568 July, [facility] [id number] [place] [address] 86077- 6017 July, Opioid use disorder, severe, dependence F11.20 and Alleged drug diversion Z65.3 [facility] [id number] [place] [address] 63373- 8066 July, [facility] [id number] [place] [address] 62345- 9840 Jun, [facility] [id number] [place] [address] 63915- 7242 Apr, [facility] [id number] [place] [address] 80889- 1058 Jan, HIV (human immunodeficiency virus infection) Z21 and Anxiety F41.9 [facility] [id number] [place] [address] 99406- 7036 Jan, [facility] [id number] [place] [address] [id number] Oct, [facility] [id number] [place] [address] 30792- 3628 Aug, HIV (human immunodeficiency virus infection) Z21 [facility] [id number] [place] [address] 76220- 9907 July, HIV (human immunodeficiency virus infection) Z21 [facility] [address] [place] [address] 96865- 8049 July, [facility] [id number] [place] [address] 95946- 7622 Apr, [facility] [id number] [place] [address] 20695- 6789 Mar, [facility] [id number] [place] [address] 30478 -1925 Jan, Ankle injury, right, initial encounter S99.911A and Shortness of breath R06.02 [facility] [id number] [place] [address] 29342 -0958 Dec, Hematoma T14.8 [facility] [id number] [place] [address] 38081- 4142 Dec, [facility] [id number] [place] [address] 38137- 8000 Sep, [facility] [id number] [place] [address] 00268- 3544 May, [facility] [id number] [place] [address] 43928- 4204 Apr, Positive PPD R76.11 [facility] [id number] [place] [address] 23790- 3502 Mar, [facility] [id number] [place] [address] 03791- 2568 Feb, Generalized abdominal pain R10.[address] [facility] [id number] [place] [address] 86471- 2897 July, [facility] [id number] [place] [address] 69941- 1988 [address], 2014 [facility] [id number] [place] [address] 47187- 2161 [address], [address] [facility] [id number] [place] [address] 54737- 3397 Dec, [facility] [address] 17082- 5566 Dec, [facility] [place] [facility] [address] [id number] [place] [address]- 1166 Dec, [facility] [place] [facility] [address] [id number] [place] [address] 2546 29 Nov, 2013 [facility] [place] [facility] [address] [id number] [place] [address] 2546 29 Nov, 2013 [facility] [place] [facility] [address] [id number] [place] [address] 2546 29 Nov, 2013 [facility] [place] [facility] [address] [id number] [place] [address] 2545 29 Nov, 2013 [facility] [place] [facility] [address] [id number] [place] [address]- 5467 29 Nov, 2013 [facility] [place] [facility] [address] [id number] [place] [address]- 3034 29 Nov, 2013 [facility] [place] [facility] [address] [id number] [place] [address] 2547 29 Nov, 2013 [facility] [place] [facility] [address] [id number] [place] [address] 2543 29 Nov, 2013 [facility] [place] [facility] [address] [id number] [place] [address] 2544 Nov, 2013 [facility] [place] [facility] [address] [id number] [place] [address] 2540 Nov, 2013 [facility] [place] [facility] [address] [id number] [place] [address] 2546 24 Nov, 2013 [facility] [place] [facility] [address] [id number] [place] [address] 2546 24 Nov, 2013 [facility] [place] [facility] [address] [id number] [place] [address] Nov, 2013 [facility] [place] [facility] [address] [id number] [place] [address] Nov, 2013 [facility] [place] [facility] [address] [id number] [address] 22 Nov, 2013 [facility] [address] [id number] [address] [address], [address] [facility] [id number] [address] Nov, [facility] [id number] [address] 17 Nov, [address] [facility] [id number] [address] Nov, [facility] [id number] [address] Nov, [facility] [id number] [address] Nov, [facility] [id number] [address] Oct, [facility] [id number], [place] [address] Oct, [facility] [id number] [address] May, IMMUNIZATIONS No Known Immunizations SOCIAL HISTORY [...]
--- OUTSIDE RECORDS SUMMARY | 2018-03-22 13:50 | XMS REPORT ---
Author Author Sacha Gastelum Organization [facility] Address [address] [place] [address] Care Team Providers Care Energy Sales Consultant Name Role Phone NiravShilohSacha Unavailable PROBLEMS Type Condition ICD9-CM Code [id number] Code Onset Dates Condition Status SNOMED Code Problem Nicotine dependence, cigarettes, uncomplicated F17.210 Active 26645304 Problem Wheezing on auscultation R06.2 Active 024027361 Problem Acquired immune deficiency syndrome B20 Active 11834623 Problem Anxiety F41.9 Active 12177618 Problem Chronic pain syndrome G89.4 Active 045097933 Problem Other chronic pain G89.29 Active 72166556 Problem Mood swings F39 Active 30618362 Problem Non-intractable cyclical vomiting with nausea G43.A0 Active 74701098 Problem Poor appetite R63.0 Active 32997986 Problem Mixed hyperlipidemia E78.2 Active 586163858 Problem GERD (gastroesophageal reflux disease) K21.9 Active 701537167 Problem Intrinsic asthma J45.909 Active 565678703 Problem Migraine G43.909 Active 90954902 Problem Bipolar affective disorder F31.9 Active 28645787 Problem Generalized anxiety disorder F41.1 Active 84621861 Problem MCC (current) use of opiate analgesic Z79.891 Active 595822739 ALLERGIES Substance Reaction Event Type Date Status Gabapentin *anticonvulsants* ; pt states it gives her body tremors Non Drug Allergy Nov, Active ENCOUNTERS Encounter Location Date Diagnosis [facility] [address] [place] [id number] Nov, Influenza vaccine refused Z28.21 ; Acquired immune deficiency syndrome B20 ; Anxiety F41.9 ; Noncompliance Z91.19 ; Oral thrush B37.0 and Chronic pain syndrome G89.4 [facility] [address] [place] [address] Nov, Backache M54.9 [facility] [address] [facility] [place] [address] Nov, Acquired immune deficiency syndrome B20 [facility] [address] [place] [facility] [place] [address] Nov, Acquired immune deficiency syndrome B20 [facility] [address] [place] [facility] [place] [address] Oct, [facility] [address] [place] [facility] [place] [address] Oct, Backache M54.9 [facility] [address] [place] [facility] [place] [address] Oct, [facility] [address] [place] [facility] [place] [address] Oct, [facility] [address] [facility] [place] [address] Oct, [facility] [address] [place] [address] Oct, [facility] [address] [place] [address] Oct, Upper respiratory infection J06.9 and Backache M54.9 [facility] [address] [place] [address] Oct, Generalized anxiety disorder F41.1 and Backache M54.9 [facility] [address] [place] [address] Sep, Acquired immune deficiency syndrome B20 [facility] [address] [place] [address] Sep, [facility] [address] [place] [id number] Sep, Acquired immune deficiency syndrome B20 ; Intrinsic asthma J45.909 and Open wound T14.8XXA [facility] [address] [place] [address] Sep, [facility] [address] [place] [address] Sep, [facility] [address] [place] [address] Sep, [facility] [address] [facility] [place] [address] Sep, Poor appetite R63.0 [facility] [address] [facility] [place] [address] Sep, Backache M54.9 [facility] [address] [facility] [place] [address] Sep, [facility] [address] [facility] [place] [address] Aug, Generalized anxiety disorder F41.1 [facility] [address] [place] [facility] [place] [address] Aug, [facility] [address] [facility] [place] [address] Aug, Backache M54.9 [facility] [address] [facility] [place] [address] Aug, [facility] [address] [facility] [place] [address] Aug, Spider bite T63.301A [facility] [address] [facility] [place] [address] Aug, [facility] [address] [facility] [place] [address] Aug, [facility] [address] [facility] [place] [address] Aug, [facility] [address] [facility] [place] [address] July, [facility] [address] [facility] [place] [address] July, [facility] [address] [facility] [place] [address] July, [facility] [address] [facility] [place] [address] July, [facility] [address] [facility] [place] [address] July, [facility] [address] [facility] [place] [address] July, Poor appetite R63.0 and Backache M54.9 [facility] [address] [place] [facility] [place] [address] July, [facility] [address] [facility] [place] [address] July, [facility] [address] [facility] [place] [address] July, [facility] [address] [facility] [place] [address] July, [facility] [address] [facility] [place] [address] July, [facility] [address] [facility] [place] [address] July, Nausea and vomiting R11.2 [facility] [address] [facility] [place] [address] July, [facility] [address] [facility] [place] [address] July, [facility] [address] [facility] [place] [address] July, [facility] [address] [facility] [place] [address] July, [facility] [address] [facility] [place] [address] July, [facility] [address] [facility] [place] [address] July, Other chronic pain G89.29 [facility] [address] [facility] [place] [address] July, [facility] [address] [facility] [place] [address] July, GERD (gastroesophageal reflux disease) K21.9 [facility] [address] [place] [facility] [place] [address] July, [facility] [address] [facility] [place] [address] Jun, [facility] [address] [facility] [place] [address] Jun, [facility] [address] [facility] [place] [address] Jun, [facility] [address] [place] [address] Jun, [facility] [address] [place] [address] Jun, Other chronic pain G89.29 [facility] [address] [facility] [place] [address] Jun, [facility] [address] [facility] [place] [address] Jun, [facility] [address] [place] [address] Jun, [facility] [address] [facility] [place] [address] Jun, [facility] [address] [facility] [place] [address] Jun, [facility] [address] [place] [address] Jun, Generalized anxiety disorder F41.1 ; Other chronic pain G89.29 and Non-intractable cyclical vomiting with nausea G43.A0 [facility] [address] [place] [phone] Jun, Acquired immune deficiency syndrome B20 ; 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 ; Nicotine dependence, cigarettes, uncomplicated F17.210 ; Lower respiratory infection J22 ; Poor appetite R63.0 ; Other chronic pain G89.29 ; Generalized anxiety disorder F41.1 and Need for tetanus booster Z23 [facility] [address] [place] [address] Jun, [facility] [address] [place] [address] May, Generalized abdominal pain R10.84 [facility] [address] [place] [address] May, [facility] [address] [place] [address] Apr, AIDS B20 ; Generalized abdominal pain R10.84 and Dysmenorrhea N94.6 [facility] [address] [place] [address] 14 Apr, 2017 Acute URI J06.[address] [address] Apr, [address] [address] Apr, [facility] [address] [place] [phone] Apr, Acquired immune deficiency syndrome B20 ; MCC ( current) use of opiate analgesic Z79.891 and Migraine G43.[address] [address] Mar, Dysmenorrhea N94.[address] [address] Mar, [address] [address] Mar, Generalized anxiety disorder F41.1 and Generalized abdominal pain R10.[address] [address] Mar, [facility] [address] [address] Mar, Generalized abdominal pain R10.84 and Generalized anxiety disorder F41.[address] [address] Feb, [facility] [address] [address] Feb, Generalized abdominal pain R10.[address] [address] Jan, Nausea and vomiting R11.[address] [address] Jan, [facility] [address] [address] Jan, [facility] [address] [address] Jan, [facility] [address] [address] Jan, [facility] [address] [place] [address] 14 Jan, 2017 [facility] [address] [place] [address] 08 Jan, 2017 Mood swings F39 [facility] [address] [place] [address] Jan, [facility] [address] [place] [address] Jan, [facility] [address] [place] [address] Jan, [facility] [address] [place] [address] Jan, Dysmenorrhea N94.6 [facility] [address] [place] [phone] Jan, Acquired immune deficiency syndrome B20 ; Generalized abdominal pain R10.84 and Refused influenza vaccine Z28.21 [facility] [address] [place] [address] Jan, [facility] [address] [place] [address] Dec, Generalized abdominal pain R10.84 [facility] [address] [place] [address] Dec, Dysmenorrhea N94.6 [facility] [address] [address] Dec, Backache M54.9 [facility] [address] [place] [address] Nov, Generalized abdominal pain R10.84 [facility] [address] [place] [address] Nov, Generalized anxiety disorder F41.1 [facility] [address] [place] [address] 08 Nov, 2016 Dysmenorrhea N94.6 [facility] [address] [place] [address] Oct, [facility] [address] [place] [address] Oct, [facility] [address] [place] [address] Oct, [address] [address] Oct, Generalized abdominal pain R10.84 [facility] [address] [facility] [place] [phone] Oct, Acquired immune deficiency syndrome B20 ; MCC 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 Z79.891 ; Bipolar affective disorder F31.9 ; Generalized anxiety disorder F41.1 ; Backache M54.9 ; Mixed hyperlipidemia E78.2 ; Nicotine dependence, cigarettes, uncomplicated F17.210 and Wheezing on auscultation R06.[address] [address] Oct, Oral candidiasis B37.[address] [address] Oct, [address] [address] Oct, Acute upper respiratory infection J06.[address] [address] Oct, Acute upper respiratory infection J06.[address] [address] Sep, Dysmenorrhea N94.[address] [address] Sep, Generalized anxiety disorder F41.[address] [address] Sep, Dysmenorrhea N94.[address] [address] Sep, [address] [address] Sep, Dysmenorrhea N94.[address] [address] Aug, Acquired immune deficiency syndrome B20 [facility] [address] [place] [address] Aug, Generalized anxiety disorder F41.1 [facility] [address] [place] [address] Aug, [facility] [address] [place] [address] Aug, [facility] [address] [facility] [place] [address] Aug, [facility] [address] [facility] [place] [address] Aug, [facility] [address] [facility] [place] [address] Aug, [facility] [address] [place] [facility] [place] [address] Aug, [facility] [address] [place] [address] Aug, [facility] [address] [place] [address] Aug, Acute opioid withdrawal F11.23 [facility] [address] [place] [address] July, Upper respiratory infection J06.9 [facility] [address] [place] [address] July, Backache M54.9 [facility] [address] [place] [phone] July, Acquired immune deficiency syndrome B20 ; MCC 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 Z79.891 ; Hyperglycemia R73.9 ; Bipolar affective disorder F31.9 ; GERD (gastroesophageal reflux disease) K21.9 ; Backache M54.9 ; Generalized anxiety disorder F41.1 ; Mixed hyperlipidemia E78.2 ; Nicotine dependence, cigarettes, uncomplicated F17.210 and Localized edema R60.0 [facility] [address] [place] [address] July, [facility] [address] [place] [address] Jun, Backache M54.9 [facility] [address] [place] [address] Jun, Chronic pain G89.29 [facility] [address] [place] [address] May, Backache M54.9 [facility] [address] [place] [address] May, Backache M54.9 [facility] [address] [place] [address] Apr, Cough R05 [facility] [address] [facility] [place] [phone] Apr, Acquired immune deficiency syndrome B20 ; Screening examination for sexually transmitted disease Z11.3 ; Dermatitis L30.9 and Migraine with aura and with status migrainosus, not intractable G43.[address] [address] Apr, Backache M54.[address] [address] Mar, Intrinsic asthma J45.909 ; Nausea and vomiting R11.2 and AIDS B20 [address] [address] Mar, Backache M54.[address] [address] Feb, Chronic pain G89.[address] [address] Feb, Backache M54.[address] [address] Jan, [place] [facility], 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 [address] Jan, Asthma, intrinsic 493.[address] [address] Jan, [address] [address] Jan, [facility] [address] [place] [address] Jan, Backache M54.9 [facility] [address] [place] [address] 30 Dec, 2015 Chronic pain G89.29 [facility] [address] [facility] [place] [phone] Dec, AIDS B20 ; Influenza vaccine needed Z23 ; Intrinsic asthma J45.909 ; Backache M54.9 ; Generalized anxiety disorder F41.1 ; Nicotine dependence, cigarettes, uncomplicated F17.210 and Mixed hyperlipidemia E78.[address] [address] Dec, [address] [address] Dec, Dysmenorrhea N94.[address] [address] Dec, [address] [address] 17 Dec, 2015 Depression with anxiety F41.8 and Backache M54.[address] [address] Nov, [address] [address] 19 Nov, 2015 Other chronic pain G89.[address] [address] 18 Nov, 2015 Other chronic pain G89.29 [facility] [address] [place] [address] 18 Nov, 2015 [facility] [address] [place] [address] 14 Nov, 2015 Generalized anxiety disorder F41.[address] [address] 06 Nov, 2015 [facility] [address] [place] [address] 06 Nov, [address] [address] Nov, Chronic pain G89.29 [facility] [address] [place] [address] Oct, [facility] [address] [place] [address] Oct, Other chronic pain G89.29 [facility] [address] [place] [address] Oct, [facility] [address] [place] [address] Oct, [facility] [address] [place] [address] Oct, Nausea and vomiting R11.2 [facility] [address] [place] [address] Oct, Chronic pain G89.29 [facility] [address] [place] [address] Sep, [facility] [address] [place] [address] Sep, Acute upper respiratory infection, unspecified J06.9 [facility] [address] [place] [address] Sep, Upper respiratory infection J06.9 [facility] [address] [place] [address] Sep, [facility] [address] [place] [address] Sep, [facility] [address] [place] [address] Sep, Other chronic pain G89.29 [facility] [address] [facility] [place] [id number] Sep, AIDS B20 ; MCC (current) use of opiate analgesic Z79.891 ; Smoking F17.200 ; Mixed hyperlipidemia E78.2 ; Chronic pain G89.29 and Edema R60.9 [facility] [address] [place] [address] Sep, [facility] [address] [place] [address] Sep, [facility] [address] [facility] [place] [address] Aug, [facility] [address] [facility] [place] [address] Aug, Other chronic pain G89.29 [facility] [address] [facility] [place] [address] Aug, Generalized anxiety disorder F41.1 [facility] [address] [facility] [place] [address] July, Other chronic pain G89.29 [facility] [address] [facility] [place] [address] July, Other chronic pain G89.29 [facility] [address] [facility] [place] [address] July, [facility] [address] [facility] [place] [address] Jun, Generalized anxiety disorder F41.1 [facility] [address] [facility] [place] [address] Jun, [facility] [address] [facility] [place] [address] Jun, Other chronic pain G89.29 [facility] [address] [facility] [place] [address] Jun, Rash and other nonspecific skin eruption R21 [facility] [address] [facility] [place] [address] Jun, [facility] [address] [facility] [place] [address] Jun, [facility] [address] [facility] [place] [address] Jun, [facility] [address] [facility] [place] [address] Jun, [facility] [address] [facility] [place] [address] Jun, [facility] [address] [facility] [place] [address] Jun, [facility] [address] [facility] [place] [address] Jun, [facility] [address] [facility] [place] [address] Jun, Other chronic pain G89.29 [facility] [address] [facility] [place] [address] Jun, [facility] [address] [facility] [place] [address] Jun, [facility] [address] [facility] [place] [address] Jun, [facility] [address] [facility] [place] [address] Jun, [facility] [address] [facility] [place] [address] Jun, [facility] [address] [facility] [place] [address] Jun, [facility] [address] [facility] [place] [address] Jun, [facility] [address] [facility] [place] [address] Jun, [facility] [address] [facility] [place] [address] Jun, [facility] [address] [facility] [place] [address] Jun, Nausea and vomiting R11.2 [facility] [address] [facility] [place] [address] May, [facility] [address] [facility] [place] [address] May, Rash and other nonspecific skin eruption R21 [facility] [address] [facility] [place] [address] May, [facility] [address] [facility] [place] [address] May, [facility] [address] [facility] [place] [address] May, [facility] [address] [facility] [place] [address] May, [facility] [address] [facility] [place] [address] May, [facility] [address] [facility] [place] [phone] May, Acquired immune deficiency syndrome B20 ; Screening examination for sexually transmitted disease Z11.3 ; Depression with anxiety F41.8 ; Other chronic pain G89.29 and Dermatitis L30.9 [facility] [address] [place] [address] May, [facility] [address] [place] [address] May, [facility] [address] [place] [address], [place] [address] May, [facility] [address] [place] [address], [place] [address] May, Backache M54.9 [facility] [address] [place] [address], [place] [address] May, Rash and other nonspecific skin eruption R21 [facility] [address] [place] [address], [place] [address] Apr, [facility] [address] [place] [address] Apr, [facility] [address] [place] [address] Apr, Other chronic pain G89.29 [facility] [address] [place] [address] Apr, [facility] [address] [place] [address] Apr, [facility] [address] [place] [address] Apr, [facility] [address] [place] [address] Apr, [facility] [address] [place] [address] Apr, [facility] [address] [place] [address] Apr, [facility] [address] [place] [address] Apr, [facility] [address] [place] [address] Apr, [facility] [address] [place] [address] Apr, [facility] [address] [place] [address] Apr, [facility] [address] [place] [address] Apr, Other chronic pain G89.29 ; Generalized anxiety disorder F41.1 ; Nausea R11.0 and AIDS B20 [address] [address] Apr, [facility] [address] [place] [address] Apr, Generalized anxiety disorder F41.1 [facility] [address] [place] [address] Apr, [facility] [address] [place] [address] Apr, Other chronic pain G89.[address] [address] Mar, [facility] [address] [place] [id number] Mar, 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 ; Bipolar affective disorder F31.9 ; Smoking F17.200 ; Generalized anxiety disorder F41.1 ; Influenza vaccine administered Z23 and AIDS B20 [facility] [address] [place] [address] Mar, Other chronic pain G89.29 [facility] [address] [place] [address] Mar, Generalized anxiety disorder F41.1 [facility] [facility] [address] [place] [address] Mar, [facility] [address] [place] [address] Mar, Asymptomatic HIV infection Z21 [facility] [address] [place] [address] Mar, Other chronic pain G89.29 [facility] [address] [place] [address] Feb, [facility] [address] [place] [address] Feb, [facility] [address] [place] [address] Feb, [facility] [address] [place] [address] Feb, [facility] [address] [place] [address] Feb, [facility] [address] [place] [address] Jan, Other chronic pain G89.29 and Nausea & vomiting R11.2 [facility] [address] [place] [address] Jan, Other chronic pain G89.29 [facility] [address] [place] [address] Dec, [facility] [address] [place] [address] Dec, Other chronic pain G89.29 ; Asymptomatic HIV infection Z21 ; Intrinsic asthma J45.909 ; Bipolar affective disorder F31.9 ; Noncompliance Z91.19 ; Migraine G43.909 ; Tobacco use disorder Z72.0 ; GERD (gastroesophageal reflux disease) K21.9 ; Backache M54.9 and Generalized anxiety disorder F41.1 [facility] [address] [place] [address] Nov, [facility] [address] [place] [address] Nov, [facility] [address] [place] [address] Oct, Other chronic pain 338.29 [facility] [address] [place] [address] Oct, [facility] [address] [place] [address] Oct, Unspecified backache 724.5 and Dysphagia 787.20 [facility] [address] [place] [address] Sep, Other chronic pain 338.29 [facility] [address] [place] [address] Sep, [address] [address] Aug, URI (upper respiratory infection) 465.9 and Diarrhea 787.[address] [address] Aug, [address] [address] Aug, Other chronic pain 338.[address] [address] Aug, Other chronic pain 338.29 and Generalized anxiety disorder 300.[address] [address] Aug, [address] [address] July, Other chronic pain 338.29 [facility] [address] [place], [place] [id number] July, Nondependent tobacco use disorder 305.1 ; Unspecified backache 724.5 ; Other chronic pain 338.29 ; Abdominal pain, unspecified site 789.00 ; 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.69 and Acquired immune deficiency syndrome 042 [facility] [address] [place] [address] July, Other chronic pain 338.[address] [address] Jun, Other chronic pain 338.29 [facility] [address] [place] [address] Jun, [address] [address] Jun, Other chronic pain 338.29 [facility] [address] [place] [address] Jun, URI (upper respiratory infection) 465.[address] [address] Jun, Generalized anxiety disorder 300.02 and Seasonal allergies 477.[address] [address] Jun, Generalized anxiety disorder 300.02 [facility] [address] [place] [address] May, Other chronic pain 338.[address] [address] May, Other chronic pain 338.29 and Generalized anxiety disorder 300.[address] [address] 16 Apr, 2014 Asthma, intrinsic 493.10 and Acute upper respiratory infections of other multiple sites 465.[address] [address] Apr, [facility] [address] [facility] [address] [place] [phone] Apr, Depressive disorder [address] [address] Apr, Other chronic pain 338.[address] [address] Apr, [address] [address] Apr, Other chronic pain 338.[address] [address] Mar, Acute upper respiratory infections of unspecified site 465.9 [facility] [address] [place] [id number] Mar, 2014 Migraine 346.90 ; Nondependent tobacco use disorder 305.1 ; Esophageal reflux 530.81 ; Unspecified backache 724.5 ; Abdominal pain, generalized 789.07 ; Flatulence, eructation, and gas pain 787.3 ; Asymptomatic human immunodeficiency virus (HIV) infection status V08 ; Dyspepsia and other specified disorders of function of stomach 536.8 ; Nausea alone 787.02 and Asthma 493.[address] [address] Mar, Other chronic pain 338.[address] [address] Feb, Other chronic pain 338.29 and Generalized anxiety disorder 300.[address] [address] Feb, Abdominal pain, generalized 789.[address] [address] Jan, Abdominal pain, generalized 789.[address] [id number] Dec, [address] [address] Dec, [address] [address] Dec, Unspecified backache 724.[address] [address] Dec, [address] [address] Nov, [place] [address] [id number] Nov, [facility] [address] [place] [id number] Nov, Bipolar disorder, unspecified 296.80 ; Abdominal pain, generalized 789.07 ; Generalized anxiety disorder 300.02 ; Nausea alone 787.02 ; Flu vaccine need V04.81 and Human immunodeficiency virus (HIV) disease [address] [address] Nov, [facility] [address] [place] [address] [place] [phone] Oct, [facility] [address] [facility] [address] [place] [address], [place] [phone] Oct, [facility] [address] [facility] [address] [place] [phone] Aug, [facility] [address] [facility] [place] [address] Jun, [facility] [address] [facility] [place] [address] Mar, [facility] [address] [facility] [place] [address] Oct, [facility] [address] [facility] [place] [address] July, [facility] [address] [facility] [place] [address] Jun, [facility] [address] [facility] [place] [address] May, [facility] [address] [facility] [place] [address] Mar, [facility] [address] [facility] [place] [address] Feb, [facility] [address] [facility] [place] [address] Nov, [facility] [address] [facility] [place] [address] Oct, [facility] [address] [facility] [place] [address] Aug, [facility] [address] [facility] [place] [address] May, [facility] [address] [facility] [place] [address] Mar, IMMUNIZATIONS No Known Immunizations SOCIAL HISTORY Never Assessed REASON FOR VISIT HIV f/u PLAN OF CARE Activity Details Pending Test Human Immunodeficiency Virus (HIV-1), Quantitative, Real-time PCR (graph) 30461 Pending Test Thyroid-Stimulating Hormone (TSH) and Free T4 75338/05802 Pending Test Metabolic Panel (14), Comprehensive (CMP) 75915 Pending Test CD4/CD8 Ratio Profile 72256 Pending Test GenoSure PRIme(SM) Future/Pending Procedure Refused Influenza Vaccine VITAL SIGNS Height 65 in 2017-12-11 Weight 139 lbs 2017-12-11 Temperature 97.7 degrees Fahrenheit 2017-12-11 Heart Rate 69 /min 2017-12-11 Respiratory Rate 16 /min 2017-12-11 Oximetry 92 % 2017-12-11 BMI 23.13 kg/m2 2017-12-11 Blood pressure systolic 114 mm Hg 2017-12-11 Blood pressure diastolic 72 mm Hg 2017-12-11 MEDICATIONS Medication Instructions Dosage Frequency Start Date End Date Duration Status Methocarbamol 500 TAKE ONE AND ONE-HALF (1 & 1/2) TABLET BY MOUTH EVERY 8 HOURS FOR 10 DAYS 30 Active Montelukast Sodium 10 MG Orally Once a day 1 tablet in the evening 24h July, 30 day(s) Active Diflucan 150 Orally Once a day 1 tablet 24h 5 Active Promethazine HCl 25 MG Orally three times a day 1 tablet as needed 8h 20 Mar, 2016 30 day(s) Active Tramadol HCl 50 MG Orally every 12 hrs 2 tablet as needed 12h Sep, 30 days Active Zofran 4 MG Orally every 6 hours prn TAKE ONE TABLET BY MOUTH EVERY 8 HOURS FOR 10 DAYS 30 days Active Marinol 10 MG Orally three times a day 1 capsule before lunch and supper 8h Jun, 30 days Active Genvoya 310-862-390-10 MG Orally daily as directed 24h Nov, 30 days Active Dapsone 100 MG Orally Once a day 1 tablet 24h Apr, 30 days Active Ventolin HFA 108 (90 Base) MCG/ACT Inhalation every 4 hrs 2 puffs as needed 4h 11 Oct, 2016 30 days Active Omeprazole 40 MG Orally Once a day 1 capsule 24h July, 30 day(s ) Active Fluconazole 200 MG Orally Once a day 1 tablet 24h Nov, 14 days Active Zithromax Z-Riky 250 MG Orally Once a day 1 tablet 24h May, 30 days Active RESULTS No Results PROCEDURES Procedure Date Ordered Result Body Site T CELL, ABSOLUTE COUNT/RATIO Dec 11, 2017 COMPREHEN METABOLIC PANEL Dec 11, 2017 ASSAY THYROID STIM HORMONE Dec 11, 2017 GENOTYPE, DNA, HIV REVERSE T Dec 11, 2017 ASSAY OF FREE THYROXINE Dec 11, 2017 Venipuncture Dec 11, 2017 HIV-1, DNA, QUANT Dec 11, 2017 GENOTYPE DNA HIV REVERSE T Dec 11, 2017 PHENOTYPE, INFECT AGENT DRUG Dec 11, 2017 INSTRUCTIONS MEDICATIONS ADMINISTERED No Known Medications MEDICAL [...]
--- OUTSIDE RECORDS SUMMARY | 2018-03-22 13:51 | XMS REPORT ---
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 36908678 Problem Anxiety F41.9 Active 04858106 Problem HIV (human immunodeficiency virus infection) Z21 Active [id number] ALLERGIES No Information ENCOUNTERS Encounter Location Date Diagnosis [facility] [address] [address] Oct, Insect bite, initial encounter W57.XXXA and Acute nonintractable headache, unspecified headache type R51 [place] [address] [address] Sep, [place] [address] [place] [id number] [place] [address] Sep, [facility] [address] [place] [id number] [place] [address] Aug, Brown recluse spider bite or sting, accidental or unintentional, initial encounter T63.331A [place] [address] [place] [id number] [place] [address] July, Bug bite, subsequent encounter W57.XXXD and Opioid use disorder F11.99 [facility] [address] [place] [id number] [place] [address] July, Insect bite, initial encounter W57.XXXA [place] [address] [place] [address] July, [facility] [address] [place] [id number] [address] July, [facility] [place] [address] [place] [address] [id number] [place] [address] July, Opioid use disorder, severe, dependence F11.20 and Alleged drug diversion Z65.3 [facility] [address] [place] [id number] [place] [address] July, [facility] [place] [address] [place] [id number] [place] [address] Jun, [facility] [place] [address] [place] [id number] [place] [address] Apr, [facility] [address] [place] [id number] [place] [address] Jan, HIV (human immunodeficiency virus infection) Z21 and Anxiety F41.9 [facility] [id number] [address] Jan, [facility] [address] [place] [id number] [place] [id number] Oct, [facility] [address] [address] Aug, HIV (human immunodeficiency virus infection) Z21 [facility] [address] [address] July, HIV (human immunodeficiency virus infection) Z21 [facility] [address] [address] July, [facility] [address] [place] [id number] [place] [address] Apr, [facility] [place] [address] [address] Mar, [facility] [address] [place] [id number] [place] [address] Jan, Ankle injury, right, initial encounter S99.911A and Shortness of breath R06.02 [facility] [address] [place] [id number] [place] [address] Dec, Hematoma T14.8 [facility] [address] [place] [id number] [place] [address] Dec, [facility] [address] [address] Sep, [facility] [address] [address] May, [facility] [address] [address] Apr, Positive PPD R76.11 [facility] [address] [address] Mar, [facility] [address] [place] [id number] [place] [address] Feb, Generalized abdominal pain R10.84 and Anxiety F41.9 [facility] [address] [place] [id number] [place] [address] July, [facility] [address] [place] [address] [id number] [place] [address] 14 Jun, 2014 [facility] [address] [place] [address] [id number] [place] [address] 13 Jun, 2014 [facility] [address] [place] [id number] [place] [address] Dec, [facility] [address] [place] [id number] [place] [address] Dec, [facility] [address] [id number] [place] [address] Dec, [facility] [address] [address] 29 Sep, 2013 [facility] [place] [facility] [address] [id number] [place] [address] 29 Sep, 2013 [facility] [place] [facility] [address] [id number] [place] [address] 29 Sep, 2013 [facility] [place] [facility] [address] [id number] [place] [address] 29 Sep, 2013 [facility] [place] [facility] [address] [id number] [place] [address] 29 Sep, 2013 [facility] [place] [facility] [address] [id number] [place] [address] 29 Sep, 2013 [facility] [place] [facility] [address] [id number] [place] [address] 29 Sep, 2013 [facility] [place] [facility] [address] [id number] [place] [address] 29 Sep, 2013 [facility] [place] [facility] [address] [id number] [place] [address] 26 Sep, 2013 [facility] [place] [facility] [address] [id number] [place] [address] 26 Sep, 2013 [facility] [place] [facility] [address] [id number] [place] [address] 24 Sep, 2013 [facility] [place] [facility] [address] [id number] [place] [address] 24 Sep, 2013 [facility] [place] [facility] [address] [id number] [address] 23 Sep, 2013 [facility] [place] [facility] [address] [id number] [place] [address] 23 Sep, 2013 [facility] [place] [facility] [address] [id number] [place] [address] 22 Sep, 2013 [facility] [place] [facility] [address] [id number] [place] [address] 18 Sep, 2013 [facility] [place] [facility] [address] [address] Nov, [facility] [address] [place] [id number] [address] Nov, [facility] [address] [address] Nov, [facility] [address] [address] Nov, [facility] [address] [address] Nov, [facility] [address] [address] Oct, [facility] [address] [address] Oct, [facility] [address] [address] May, IMMUNIZATIONS No Known Immunizations SOCIAL HISTORY Never Assessed REASON FOR VISIT Lab result PLAN OF CARE VITAL SIGNS MEDICATIONS No Known Medications RESULTS No Results PROCEDURES No Known procedures INSTRUCTIONS MEDICATIONS ADMINISTERED No Known Medications MEDICAL (GENERAL) HISTORY Type Description Date Medical History HIV Medical History anxiety Surgical History gallbladder Surgical History tubal ligation Surgical History hysterectomy, total with bilateral salpingo-oophorectomy (BSO )
--- OUTSIDE RECORDS SUMMARY | 2018-03-22 13:51 | XMS REPORT ---
Author Author Dulce Herrera [facility] Address [address] [place], [place] [id number] Care Team Providers Care Civil Service Worker Name Role Phone Dulce Herrera Unavailable PROBLEMS Type Condition ICD9-CM Code ZBD36-MD Code Onset Dates Condition Status SNOMED Code Problem Bipolar affective disorder F31.9 Active 95936952 Problem Nicotine dependence, cigarettes, uncomplicated F17.210 Active 14056753 Problem halfway (current) use of opiate analgesic Z79.891 Active 681854103 Problem Non-intractable cyclical vomiting with nausea G43.A0 Active 37050494 Problem Poor appetite R63.0 Active 47980671 Problem Wheezing on auscultation R06.2 Active 467930440 Problem Acquired immune deficiency syndrome B20 Active 90110320 Problem Other chronic pain G89.29 Active 14472802 Problem Mood swings F39 Active 71610621 Problem Generalized anxiety disorder F41.1 Active 14500379 Problem GERD (gastroesophageal reflux disease) K21.9 Active 815766433 Problem Mixed hyperlipidemia E78.2 Active 816068778 Problem Intrinsic asthma J45.909 Active 924184850 Problem Migraine G43.909 Active 01118035 Problem Backache M54.9 Active [id number] ALLERGIES No Information ENCOUNTERS Encounter Location Date Diagnosis [facility] [address] [facility] [address] [place] [id number] Nov, [facility][note 3] [address] [place] [address] Nov, Backache M54.9 [facility][note 3] [address] [place] [address] Nov, Acquired immune deficiency syndrome B20 [facility][note 3] [address] [place] [address] Nov, Acquired immune deficiency syndrome B20 [facility][note 3] [address] [place] [address] Oct, [facility] [address] [place] [address] Oct, Backache M54.9 [facility] [address] [facility] [place] [facility] [address] Oct, [facility] [address] [place] [address] Oct, [facility] [address] [place] [address] Oct, [facility] [address] [facility] [place] [facility] [address] Oct, [facility] [address] [facility] [place] [facility] [address] Oct, Upper respiratory infection J06.9 and Backache M54.9 [facility] [address] [facility] [place] [address] Oct, Generalized anxiety disorder F41.1 and Backache M54.9 [facility] [address] [facility] [place] [address] Sep, Acquired immune deficiency syndrome B20 [facility] [address] [facility] [place] [facility] [address] Sep, [facility] [address] [place] [id number] Sep, Acquired immune deficiency syndrome B20 ; Intrinsic asthma J45.909 and Open wound T14.8XXA [facility] [address] [place] [address] Sep, [facility] [address] [place] [address] Sep, [facility] [address] [place] [address] Sep, [facility] [address] [facility] [place] [facility] [address] Sep, Poor appetite R63.0 [facility] [address] [place] [address] Sep, Backache M54.9 [facility] [address] [place] [address] Sep, [facility] [address] [place] [address] Aug, Generalized anxiety disorder F41.1 [facility] [address] [place] [address] Aug, [facility] [address] [place] [address] Aug, Backache M54.9 [facility] [address] [place] [address] Aug, [facility] [address] [place] [address] Aug, Spider bite T63.301A [facility] [address] [place] [address] Aug, [facility] [address] [place] [address] Aug, [facility] [address] [place] [address] Aug, [facility] [address] [place] [address] July, [facility] [address] [place] [address] July, [facility] [address] [place] [address] July, [facility] [address] [place] [address] July, [facility] [address] [place] [address] July, [facility] [address] [place] [address] July, Poor appetite R63.0 and Backache M54.9 [facility] [address] [place] [address] July, [facility] [address] [place] [address] July, [facility] [address] [place] [address] July, [facility] [address] [place] [address] July, [facility] [address] [place] [address] July, [facility] [address] [place] [address] July, Nausea and vomiting R11.2 [facility] [address] [place] [address] July, [facility] [address] [place] [address] July, [facility] [address] [place] [address] July, [facility] [address] [place] [address] July, [facility] [address] [place] [address] July, [facility] [address] [place] [address] July, Other chronic pain G89.29 [facility] [address] [place] [address] July, [facility] [address] [place] [address] July, GERD (gastroesophageal reflux disease) K21.9 [facility] [address] [place] [address] July, [facility] [address] [place] [address] Jun, [facility] [address] [place] [address] Jun, [facility] [address] [place] [address] Jun, [facility] [address] [place] [address] Jun, [facility] [address] [place] [address] Jun, Other chronic pain G89.29 [facility] [address] [place] [address] Jun, [facility] [address] [place] [address] Jun, [facility] [address] [place] [address] Jun, [facility] [address] [place] [address] Jun, [facility] [address] [place] [address] Jun, [facility][note 3] [address] [place] [address] Jun, Generalized anxiety disorder F41.1 ; Other chronic pain G89.29 and Non-intractable cyclical vomiting with nausea G43.A0 [facility] [address] [place] [id number] Jun, Acquired immune deficiency syndrome B20 ; halfway ( current) use of opiate analgesic Z79.891 ; Nicotine dependence, cigarettes, uncomplicated F17.210 ; Lower respiratory infection J22 ; Poor appetite R63.0 ; Other chronic pain G89.29 ; Generalized anxiety disorder F41.1 and Need for tetanus booster Z23 [facility] [address] [place] [address] Jun, [facility] [address] [place] [address] May, Generalized abdominal pain R10.84 [facility][note 3] [address] [place] [address] May, [facility] [address] [place] [address] Apr, AIDS B20 ; Generalized abdominal pain R10.84 and Dysmenorrhea N94.6 [facility][note 3] [address] [place] [address] Apr, Acute URI J06.9 [facility][note 3] [address] [place] [address] Apr, [facility][note 3] [address] [place] [address] Apr, [facility] [address] [facility] [address] [place] [id number] Apr, Acquired immune deficiency syndrome B20 ; 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 and Migraine G43.909 [facility] [address] [address] Mar, Dysmenorrhea N94.6 [facility] [address] [place] [address] Mar, [facility] [address] [place] [address] Mar, Generalized anxiety disorder F41.1 and Generalized abdominal pain R10.[address] [address] Mar, [address] [address] Mar, Generalized abdominal pain R10.84 and Generalized anxiety disorder F41.1 [facility] [address] [address] Feb, [facility] [address] [address] Feb, Generalized abdominal pain R10.[address] [address] Jan, Nausea and vomiting R11.[address] [address] Jan, [facility] [address] [address] Jan, [facility] [address] [address] Jan, [facility] [address] [address] Jan, [facility] [address] [address] 14 Jan, 2017 [facility] [address] [address] 08 Jan, 2017 Mood swings F39 [address] [address] 08 Jan, 2017 [facility] [address] [place] [address] Jan, [facility] [address] [place] [address] Jan, [facility] [address] [place] [address] Jan, Dysmenorrhea N94.6 [facility] [address] [place] [phone] Jan, Acquired immune deficiency syndrome B20 ; Generalized abdominal pain R10.84 and Refused influenza vaccine Z28.21 [facility] [address] [place] [address] Jan, [facility] [address] [place] [address] Dec, Generalized abdominal pain R10.84 [facility] [address] [place] [address] Dec, Dysmenorrhea N94.6 [facility] [address] [place] [address] Dec, Backache M54.9 [facility] [address] [address] Nov, Generalized abdominal pain R10.84 [facility] [address] [address] Nov, Generalized anxiety disorder F41.1 [facility] [address] [place] [address] Nov, Dysmenorrhea N94.6 [facility] [address] [place] [address] Oct, [facility] [address] [place] [address] Oct, [facility] [address] [place] [address] Oct, [facility] [address] [place] [address] Oct, Generalized abdominal pain R10.[address] [place] [id number] Oct, Acquired immune deficiency syndrome B20 ; halfway 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 Z79.891 ; Bipolar affective disorder F31.9 ; Generalized anxiety disorder F41.1 ; Backache M54.9 ; Mixed hyperlipidemia E78.2 ; Nicotine dependence, cigarettes, uncomplicated F17.210 and Wheezing on auscultation R06.2 [facility] [address] [place] [address] Oct, Oral candidiasis B37.0 [facility] [address] [place] [address] Oct, [facility] [address] [place] [address] Oct, Acute upper respiratory infection J06.[address] [address] Oct, Acute upper respiratory infection J06.9 [facility][note 3] [address] [place] [address] Sep, Dysmenorrhea N94.6 [facility][note 3] [address] [place] [address] Sep, Generalized anxiety disorder F41.[address] [address] Sep, Dysmenorrhea N94.6 [facility][note 3] [address] [place] [address] Sep, [facility] [address] [place] [address] Sep, Dysmenorrhea N94.6 [facility][note 3] [address] [place] [address] Aug, Acquired immune deficiency syndrome B20 [facility] [address] [place] [address] Aug, Generalized anxiety disorder F41.1 [facility] [address] [place] [address] Aug, [facility] [address] [place] [address] Aug, [facility][note 3] [address] [place] [address] Aug, [facility][note 3] [address] [place] [address] Aug, [facility][note 3] [address] [place] [address] Aug, [facility][note 3] [address] [place] [address] Aug, [facility][note 3] [address] [place] [address] Aug, [facility][note 3] [address] [place] [address] Aug, Acute opioid withdrawal F11.[address] [address] July, Upper respiratory infection J06.[address] [address] July, Backache M54.9 [facility] [address] [place], [place] [id number] July, Acquired immune deficiency syndrome B20 ; halfway 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 Z79.891 ; Hyperglycemia R73.9 ; Bipolar affective disorder F31.9 ; GERD (gastroesophageal reflux disease) K21.9 ; Backache M54.9 ; Generalized anxiety disorder F41.1 ; Mixed hyperlipidemia E78.2 ; Nicotine dependence, cigarettes, uncomplicated F17.210 and Localized edema R60.0 [facility][note 3] [address] [place] [address] July, [facility][note 3] [address] [place] [address] Jun, Backache M54.[address] [address] Jun, Chronic pain G89.29 [facility][note 3] [address] [place] [address] May, Backache M54.[address] [address] May, Backache M54.9 [facility][note 3] [address] [place] [address] Apr, Cough R05 [facility] [address] [id number] Apr, Acquired immune deficiency syndrome B20 ; Screening examination for sexually transmitted disease Z11.3 ; Dermatitis L30.9 and Migraine with aura and with status migrainosus, not intractable G43.[address] [address] Apr, Backache M54.[address] [address] Mar, Intrinsic asthma J45.909 ; Nausea and vomiting R11.2 and AIDS B20 [address] [address] Mar, Backache M54.[address] [address] Feb, Chronic pain G89.[address] [address] Feb, Backache M54.[address] [address] Jan, [place] eye, 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 [address] Jan, Asthma, intrinsic 493.[address] [address] Jan, [address] [address] Jan, [address] [address] Jan, Backache M54.[address] [address] Dec, Chronic pain G89.29 [facility] [address] [id number] Dec, AIDS B20 ; Influenza vaccine needed Z23 ; Intrinsic asthma J45.909 ; Backache M54.9 ; Generalized anxiety disorder F41.1 ; Nicotine dependence, cigarettes, uncomplicated F17.210 and Mixed hyperlipidemia E78.2 [facility][note 3] [address] [place] [address] Dec, [facility][note 3] [address] [place] [address] Dec, Dysmenorrhea N94.6 [facility][note 3] [address] [place] [address] Dec, [facility][note 3] [address] [place] [address] Dec, Depression with anxiety F41.8 and Backache M54.9 [facility][note 3] [address] [place] [address] Nov, [facility][note 3] [address] [place] [address] Nov, Other chronic pain G89.29 [facility][note 3] [address] [place] [address] Nov, Other chronic pain G89.29 [facility][note 3] [address] [place] [address] 18 Nov, 2015 [facility][note 3] [address] [place] [address] 14 Nov, 2015 Generalized anxiety disorder F41.1 [facility][note 3] [address] [place] [address] 06 Nov, 2015 [facility][note 3] [address] [place] [address] Nov, [facility][note 3] [address] [place] [address] 04 Nov, 2015 Chronic pain G89.29 [facility][note 3] [address] [place] [address] Oct, [facility][note 3] [address] [place] [address] Oct, Other chronic pain G89.29 [facility][note 3] [address] [place] [address] Oct, [facility][note 3] [address] [place] [address] Oct, [facility][note 3] [address] [place] [address] Oct, Nausea and vomiting R11.2 [facility][note 3] [address] [place] [address] Oct, Chronic pain G89.29 [facility][note 3] [address] [place] [address] Sep, [facility][note 3] [address] [place] [address] Sep, Acute upper respiratory infection, unspecified J06.9 [facility][note 3] [address] [place] [address] Sep, Upper respiratory infection J06.9 [facility][note 3] [address] [place] [address] Sep, [facility][note 3] [address] [place] [address] Sep, [facility][note 3] [address] [place] [address] Sep, Other chronic pain G89.29 [facility] [address] [place] [id number] Sep, AIDS B20 ; halfway (current) use of opiate analgesic Z79.891 ; Smoking F17.200 ; Mixed hyperlipidemia E78.2 ; Chronic pain G89.29 and Edema R60.9 [facility][note 3] [address] [place] [address] Sep, [facility][note 3] [address] [place] [address] Sep, [facility][note 3] [address] [place] [address] Aug, [facility][note 3] [address] [place] [address] Aug, Other chronic pain G89.29 [facility][note 3] [address] [place] [address] Aug, Generalized anxiety disorder F41.1 [facility] [address] [place] [address] July, Other chronic pain G89.29 [facility] [address] [place] [address] July, Other chronic pain G89.29 [facility] [address] [place] [address] July, [facility] [address] [place] [address] Jun, Generalized anxiety disorder F41.1 [facility] [address] [place] [address] Jun, [facility] [address] [place] [address] Jun, Other chronic pain G89.29 [facility] [address] [place] [address] Jun, Rash and other nonspecific skin eruption R21 [facility] [address] [place] [address] Jun, [facility] [address] [place] [address] Jun, [facility] [address] [place] [address] Jun, [facility] [address] [place] [address] Jun, [facility] [address] [place] [address] Jun, [facility] [address] [place] [address] Jun, [facility] [address] [place] [address] Jun, [facility] [address] [place] [address] Jun, Other chronic pain G89.29 [facility] [address] [place] [address] Jun, [facility] [address] [place] [address] Jun, [facility] [address] [place] [address] Jun, [facility] [address] [place] [address] Jun, [facility] [address] [place] [address] Jun, [facility] [address] [place] [address] Jun, [facility] [address] [place] [address] Jun, [facility] [address] [place] [address] Jun, [facility] [address] [place] [address] Jun, [facility] [address] [place] [address] Jun, Nausea and vomiting R11.2 [facility] [address] [place] [address] May, [facility] [address] [place] [address] May, Rash and other nonspecific skin eruption R21 [facility] [address] [place] [address] May, [facility] [address] [place] [address] May, [facility] [address] [place] [address] May, [facility] [address] [place] [address] May, [facility] [address] [place] [address] May, [facility] [address] [place] [phone] May, Acquired immune deficiency syndrome B20 ; Screening examination for sexually transmitted disease Z11.3 ; Depression with anxiety F41.8 ; Other chronic pain G89.29 and Dermatitis L30.9 [facility] [address] [place] [address] May, [facility] [address] [place] [address] May, [facility] [address] [place] [address] May, [facility] [address] [place] [address] May, Backache M54.9 [facility] [address] [place] [address] May, Rash and other nonspecific skin eruption R21 [facility] [address] [place] [address] Apr, [facility] [address] [place] [address] Apr, [facility] [address] [facility] [place] [address] Apr, Other chronic pain G89.29 [facility] [address] [facility] [place] [address] Apr, [facility] [address] [facility] [place] [address] Apr, [facility] [address] [facility] [place] [address] Apr, [facility] [address] [facility] [place] [address] Apr, [facility] [address] [facility] [place] [address] Apr, [facility] [address] [place] [address] Apr, [facility] [address] [facility] [place] [address] Apr, [facility] [address] [facility] [place] [address] Apr, [facility] [address] [facility] [place] [address] Apr, [facility] [address] [place] [address] Apr, [facility][note 3] [address] [place] [address] Apr, Other chronic pain G89.29 ; Generalized anxiety disorder F41.1 ; Nausea R11.0 and AIDS B20 [facility][note 3] [address] [place] [address] Apr, [facility][note 3] [address] [place] [address] Apr, Generalized anxiety disorder F41.1 [facility][note 3] [address] [place] [address] Apr, [facility][note 3] [address] [place] [address] Apr, Other chronic pain G89.[address] [address] Mar, [facility] [address] [place] [id number] Mar, halfway (current) use of opiate analgesic Z79.891 ; Bipolar affective disorder F31.9 ; Smoking F17.200 ; Generalized anxiety disorder F41.1 ; Influenza vaccine administered Z23 and AIDS B20 [address] [address] Mar, Other chronic pain G89.[address] [address] Mar, Generalized anxiety disorder F41.1 [facility][note 3] [address] [place] [address] Mar, [facility][note 3] [address] [place] [address] Mar, Asymptomatic HIV infection Z21 [address] [address] Mar, Other chronic pain G89.[address] [address] Feb, [address] [address] Feb, [facility][note 3] [address] [place] [address] Feb, [facility][note 3] [address] [place] [address] Feb, [facility][note 3] [address] [place] [address] Feb, [facility][note 3] [address] [place] [address] Jan, Other chronic pain G89.29 and Nausea & vomiting R11.2 [facility][note 3] [address] [place] [address] Jan, Other chronic pain G89.29 [facility][note 3] [address] [place] [address] Dec, [address] [address] Dec, Other chronic pain G89.29 ; Asymptomatic HIV infection Z21 ; Intrinsic asthma J45.909 ; Bipolar affective disorder F31.9 ; Noncompliance Z91.19 ; Migraine G43.909 ; Tobacco use disorder Z72.0 ; GERD (gastroesophageal reflux disease) K21.9 ; Backache M54.9 and Generalized anxiety disorder F41.1 [facility][note 3] [address] [place] [address] Nov, [address] [address] Nov, [facility][note 3] [address] [place] [address] Oct, Other chronic pain 338.29 [facility][note 3] [address] [place] [address] Oct, [address] [address] Oct, Unspecified backache 724.5 and Dysphagia 787.[address] [address] Sep, Other chronic pain 338.[address] [place] [address] Sep, [address] [address] Aug, URI (upper respiratory infection) 465.9 and Diarrhea 787.[address] [address] Aug, [address] [address] Aug, Other chronic pain 338.[address] [address] Aug, Other chronic pain 338.29 and Generalized anxiety disorder 300.[address] [address] Aug, [address] [address] July, Other chronic pain 338.29 [facility] [address] [place] [id number] July, Nondependent tobacco use disorder 305.1 ; Unspecified backache 724.5 ; Other chronic pain 338.29 ; Abdominal pain, unspecified site 789.00 ; halfway (current) use of opiate analgesic V58.69 and Acquired immune deficiency syndrome [address] [address] July, Other chronic pain 338.[address] [address] Jun, Other chronic pain 338.[address] [address] Jun, [address] [address] Jun, Other chronic pain 338.[address] [address] Jun, URI (upper respiratory infection) 465.[address] [address] Jun, Generalized anxiety disorder 300.02 and Seasonal allergies 477.9 [facility][note 3] [address] [place] [address] Jun, Generalized anxiety disorder 300.02 [facility][note 3] [address] [place] [address] May, Other chronic pain 338.29 [facility][note 3] [address] [place] [address] May, Other chronic pain 338.29 and Generalized anxiety disorder 300.02 [facility][note 3] [address] [place] [address] Apr, Asthma, intrinsic 493.10 and Acute upper respiratory infections of other multiple sites 465.[address] [address] Apr, [facility] [address] [facility] [address] [place] [id number] Apr, Depressive disorder [address] [address] Apr, Other chronic pain 338.29 [facility][note 3] [address] [place] [address] Apr, [facility][note 3] [address] [place] [address] Apr, Other chronic pain 338.[address] [address] Mar, Acute upper respiratory infections of unspecified site 465.9 [facility] [address] [place] [phone] Mar, Migraine 346.90 ; Nondependent tobacco use disorder 305.1 ; Esophageal reflux 530.81 ; Unspecified backache 724.5 ; Abdominal pain, generalized 789.07 ; Flatulence, eructation, and gas pain 787.3 ; Asymptomatic human immunodeficiency virus (HIV) infection status V08 ; Dyspepsia and other specified disorders of function of stomach 536.8 ; Nausea alone 787.02 and Asthma 493.90 [facility][note 3] [address] [place] [address] Mar, Other chronic pain 338.29 [facility][note 3] [address] [place] [address] Feb, Other chronic pain 338.29 and Generalized anxiety disorder 300.02 [facility][note 3] [address] [place] [address] Feb, Abdominal pain, generalized 789.07 [facility][note 3] [address] [place] [address] Jan, Abdominal pain, generalized 789.07 [facility] [address] [place] [phone] Dec, [facility][note 3] [address] [place] [address] Dec, [facility][note 3] [address] [place] [address] Dec, Unspecified backache 724.[address] [address] Dec, [facility][note 3] [address] [place] [address] Nov, [facility] [address] [phone] Nov, [facility] [address] [place] [id number] Nov, Bipolar disorder, unspecified 296.80 ; Abdominal pain, generalized 789.07 ; Generalized anxiety disorder 300.02 ; Nausea alone 787.02 ; Flu vaccine need V04.81 and Human immunodeficiency virus (HIV) disease 042 [facility][note 3] [address] [place] [address] Nov, [facility] [address] [facility] [address] [place], [place] [phone] Oct, [facility] [address] [facility] [address] [place] [phone] Oct, [facility] [address] [id number] Aug, [facility][note 3] [address] [place] [address] Jun, [facility][note 3] [address] [place] [address] Mar, [facility] [address] [place] [address] Oct, [facility] [address] [place] [address] July, [facility] [address] [place] [address] Jun, [facility] [address] [place] [address] May, [facility] [address] [place] [address] Mar, [facility] [address] [place] [address] Feb, [facility] [address] [place] [address] Nov, [facility] [address] [place] [address] Oct, [facility] [address] [place] [address] Aug, [facility] [address] [place] [address] May, [facility] [address] [place] [address] Mar, IMMUNIZATIONS No Known Immunizations SOCIAL HISTORY Never Assessed REASON FOR VISIT refill: tramadol PLAN OF CARE VITAL SIGNS MEDICATIONS Medication [...]
--- OUTSIDE RECORDS SUMMARY | 2018-03-22 13:51 | XMS REPORT ---
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 47358093 Problem Anxiety F41.9 Active 89114756 Problem HIV (human immunodeficiency virus infection) Z21 Active 71088862 ALLERGIES No Known Allergies ENCOUNTERS Encounter Location Date Diagnosis [facility] [address] [address] Oct, Insect bite, initial encounter W57.XXXA and Acute nonintractable headache, unspecified headache type R51 [place] [address] [address] Sep, [place] [address] [place] [id number] [place] [address] Sep, [facility] [address] [address] Aug, Brown recluse spider bite or sting, accidental or unintentional, initial encounter T63.331A [place] [address] [address] July, Bug bite, subsequent encounter W57.XXXD and Opioid use disorder F11.99 [facility] [address] [place] [id number] [place] [address] July, Insect bite, initial encounter W57.XXXA [place] [address] [id number] [address] July, [facility] [id number] [place] [address] July[facility] [address] [place] [id number] [place] [address] July, Opioid use disorder, severe, dependence F11.20 and Alleged drug diversion Z65.3 [facility] [address] [place] [place] [id number] [place] [address] July, [facility] [address] [id number] [place] [address] Jun, [facility] [id number] [place] [address] Apr, [facility] [address] [place] [id number] [place] [address] Jan, HIV (human immunodeficiency virus infection) Z21 and Anxiety F41.9 [facility] [address] [address] Jan, [facility] [address] [place] [id number] [place] [id number] Oct, [facility] [address] [address] Aug, HIV (human immunodeficiency virus infection) Z21 [facility] [address] [address] July, HIV (human immunodeficiency virus infection) Z21 [facility] [address] [address] July, [facility] [id number] [place] [address] [address] Apr, [facility] [address] [address] Mar, [facility] [address], [place] [address] Jan, Ankle injury, right, initial encounter S99.911A and Shortness of breath R06.02 [facility] [id number] [address] Dec, Hematoma T14.8 [facility] [address] [place] [place] [id number] [place] [address] Dec, [facility] [address] [place] [id number] [place] [address] Sep, [facility] [address] [place] [id number] [place] [address] May, [facility] [id number] [place] [address] Apr, Positive PPD R76.11 [facility] [address] [place] [place] [id number] [place] [address] Mar, [facility] [id number] [place] [address] Feb, Generalized abdominal pain R10.84 and Anxiety F41.9 [facility] [address] [place] [id number] [place] [address] July, [facility] [id number] [place] [address] 14 Jun, 2014 [facility] [id number] [place] [address] Jun, [facility] [id number] [place] [address] Dec, [facility] [id number] [place] [address] Dec, [facility] [id number] [place] [address] Dec, [facility] [address] [id number] [place] [address] 29 Sep, 2013 [facility] [place] [facility] [address] [id number] [place] [address] 29 Sep, 2013 [facility] [place] [facility] [address] [id number] [place] [address] 29 Sep, 2013 [facility] [place] [facility] [address] [id number] [place] [address] 29 Sep, 2013 [facility] [place] [facility] [address] [id number] [place] [address] 29 Sep, 2013 [facility] [place] [facility] [address] [id number] [place] [address] 29 Sep, 2013 [facility] [place] [facility] [address] [id number] [place] [address] 29 Sep, 2013 [facility] [place] [facility] [address] [id number] [place] [address] 29 Sep, 2013 [facility] [place] [facility] [address] [id number] [place] [address] 26 Sep, 2013 [facility] [place] [facility] [address] [id number] [place] [address] 26 Sep, 2013 [facility] [place] [facility] [address] [id number] [place] [address] 24 Sep, 2013 [facility] [place] [facility] [address] [id number] [place] [address] 24 Sep, 2013 [facility] [place] [facility] [address] [id number] [place] [address] 23 Sep, 2013 [facility] [place] [facility] [address] [id number] [place] [address] 23 Sep, 2013 [facility] [place] [facility] [address] [id number] [place] [address] 22 Sep, 2013 [facility] [place] [facility] [address] [id number] [place] [address] 18 Nov, 2013 [facility] [id number] [address] Nov, [facility] [address] [address] Nov, [facility] [id number] [address] Nov, [facility] [address] [address] Nov, [facility] [address] [address] Nov, [facility] [address] [address] Oct, [facility] [address] [address] Oct, [facility] [address], [place] [address] May, IMMUNIZATIONS No Known Immunizations SOCIAL HISTORY Never Assessed REASON FOR VISIT red swollen area on her LFA that itches. has been there for 2 days. also reports a headache for 30 minutes. serina PLAN OF CARE Activity Details Follow Up prn Reason: VITAL SIGNS Height 65.5 in 2017-11-01 Weight 139.4 lbs 2017-11-01 Temperature 97.9 degrees Fahrenheit 2017-11-01 Heart Rate 72 bpm 2017-11-01 Respiratory Rate 20 2017-11-01 BMI 22.84 kg/m2 2017-11-01 Blood pressure systolic 110 mmHg 2017-11-01 Blood pressure diastolic 68 mmHg 2017-11-01 MEDICATIONS Medication Instructions Dosage Frequency Start Date End Date Duration Status Methocarbamol 750 MG Orally at bedtime 1 tablet Active Stribild [id number] mg take 1 tablet by oral route once daily with food Nov, Active Vistaril 25 MG Orally every 8 hrs 1 capsule as needed 8h July, 10 days Active Dronabinol 10 mg Orally 3 times a day 1 capsule 8h Active Omeprazole 40 mg Orally Once a day 1 capsule 24h Active Tramadol HCl 50 MG Orally every 6 hrs 1 tablet as needed 6h Active ProAir HFA 108 (90 Base) MCG/ACT Inhalation every 6 hrs 2 puffs as needed 6h Active RESULTS No Results PROCEDURES No Known procedures INSTRUCTIONS MEDICATIONS ADMINISTERED No Known Medications MEDICAL (GENERAL) HISTORY Type Description Date Medical History HIV Medical History anxiety Surgical History gallbladder Surgical History tubal ligation Surgical History hysterectomy, total with bilateral salpingo-oophorectomy (BSO )
--- OUTSIDE RECORDS SUMMARY | 2018-03-22 13:52 | XMS REPORT ---
Author Author Dulce Herrera [facility] Address [address], [place] [id number] Care Team Providers Care Buckler And Lacer Name Role Phone Dulce Herrera Unavailable PROBLEMS Type Condition ICD9-CM Code LVI43-DY Code Onset Dates Condition Status SNOMED Code Problem Bipolar affective disorder F31.9 Active 23688774 Problem Nicotine dependence, cigarettes, uncomplicated F17.210 Active 30726729 Problem shelter (current) use of opiate analgesic Z79.891 Active 248512618 Problem Non-intractable cyclical vomiting with nausea G43.A0 Active 08697821 Problem Poor appetite R63.0 Active 86758335 Problem Wheezing on auscultation R06.2 Active 004452551 Problem Acquired immune deficiency syndrome B20 Active 83473399 Problem Other chronic pain G89.29 Active 68605510 Problem Mood swings F39 Active 13196910 Problem Generalized anxiety disorder F41.1 Active 60550999 Problem GERD (gastroesophageal reflux disease) K21.9 Active 377229713 Problem Mixed hyperlipidemia E78.2 Active 978014798 Problem Intrinsic asthma J45.909 Active 999479323 Problem Migraine G43.909 Active 43473595 Problem Backache M54.9 Active 134046980 ALLERGIES No Information ENCOUNTERS Encounter Location Date Diagnosis [facility] [address] [id number] Nov, [facility] [address] [place] [address] Nov, Acquired immune deficiency syndrome B20 [facility] [address] [place] [address] Nov, Acquired immune deficiency syndrome B20 [facility] [address] [place] [address] Oct, [facility] [address] [place] [address] Oct, Backache M54.9 [facility] [address] [place] [address] Oct, [facility] [address] [place] [address] Oct, [facility] [address] [place] [address] Oct, [facility] [address] [place] [address] Oct, [facility] [address] [place] [address] Oct, Upper respiratory infection J06.9 and Backache M54.9 [facility] [address] [place] [address] Oct, Generalized anxiety disorder F41.1 and Backache M54.9 [facility] [address] [place] [address] Sep, Acquired immune deficiency syndrome B20 [facility] [address] [place] [address] Sep, [facility] [address] [id number] Sep, Acquired immune deficiency syndrome B20 ; Intrinsic asthma J45.909 and Open wound T14.8XXA [facility] [address] [place] [address] Sep, [facility] [address] [place] [address] Sep, [facility] [address] [place] [address] Sep, [facility] [address] [place] [address] Sep, Poor appetite R63.0 [facility] [address] [place] [address] Sep, Backache M54.9 [facility] [address] [place] [address] Sep, [facility] [address] [place] [address] Aug, Generalized anxiety disorder F41.1 [facility] [address] [place] [facility] [place] [address] Aug, [facility] [address] [facility] [place] [address] Aug, Backache M54.9 [facility] [address] [place] [facility] [place] [address] Aug, [facility] [address] [place] [facility] [place] [address] Aug, Spider bite T63.301A [facility] [address] [place] [facility] [place] [address] Aug, [facility] [address] [place] [facility] [place] [address] Aug, [facility] [address] [facility] [place] [address] Aug, [facility] [address] [facility] [place] [address] July, [facility] [address] [facility] [place] [address] July, [facility] [address] [facility] [place] [address] July, [facility] [address] [facility] [place] [address] July, [facility] [address] [place] [facility] [place] [address] July, [facility] [address] [facility] [place] [address] July, Poor appetite R63.0 and Backache M54.9 [facility] [address] [facility] [place] [address] July, [facility] [address] [facility] [place] [address] July, [facility] [address] [facility] [place] [address] July, [facility] [address] [facility] [place] [address] July, [facility] [address] [facility] [place] [address] July, [facility] [address] [facility] [place] [address] July, Nausea and vomiting R11.2 [facility] [address] [facility] [place] [address] July, [facility] [address] [facility] [place] [address] July, [facility] [address] [facility] [place] [address] July, [facility] [address] [facility] [place] [address] July, [facility] [address] [facility] [place] [address] July, [facility] [address] [facility] [place] [address] July, Other chronic pain G89.29 [facility] [address] [facility] [place] [address] July, [facility] [address] [facility] [place] [address] July, GERD (gastroesophageal reflux disease) K21.9 [facility] [address] [facility] [place] [address] July, [facility] [address] [place] [facility] [place] [address] Jun, [facility] [address] [facility] [place] [address] Jun, [facility] [address] [facility] [place] [address] Jun, [facility] [address] [facility] [place] [address] Jun, [facility] [address] [facility] [place] [address] Jun, Other chronic pain G89.29 [facility] [address] [facility] [place] [address] Jun, [facility] [address] [place] [facility] [place] [address] Jun, [facility] [address] [place] [address] Jun, [facility] [address] [place] [address] Jun, [facility] [address] [place] [address] Jun, [facility] [address] [place] [address] Jun, Generalized anxiety disorder F41.1 ; Other chronic pain G89.29 and Non-intractable cyclical vomiting with nausea G43.A0 [facility] [address] [phone] Jun, Acquired immune deficiency syndrome B20 ; [employer] ( current) use of opiate analgesic Z79.891 ; Nicotine dependence, cigarettes, uncomplicated F17.210 ; Lower respiratory infection J22 ; Poor appetite R63.0 ; Other chronic pain G89.29 ; Generalized anxiety disorder F41.1 and Need for tetanus booster Z23 [facility] [address] [place] [address] Jun, [facility] [address] [place] [address] May, Generalized abdominal pain R10.84 [facility] [address] [place] [address] May, [facility] [address] [place] [address] Apr, AIDS B20 ; Generalized abdominal pain R10.84 and Dysmenorrhea N94.6 [facility] [address] [place] [address] Apr, Acute URI J06.[address] [address] Apr, [facility] [address] [place] [address] Apr, [facility] [address] [id number] Apr, Acquired immune deficiency syndrome B20 ; business [employer] ( current) use of opiate analgesic Z79.891 and Migraine G43.909 [facility] [address] [facility] [place] [address] Mar, Dysmenorrhea N94.6 [facility] [address] [place] [facility] [place] [address] Mar, [facility] [address] [facility] [place] [address] Mar, Generalized anxiety disorder F41.1 and Generalized abdominal pain R10.84 [facility] [address] [place] [facility] [place] [address] Mar, [facility] [address] [place] [address] Mar, Generalized abdominal pain R10.84 and Generalized anxiety disorder F41.1 [facility] [address] [place] [address] Feb, [facility] [address] [place] [address] Feb, Generalized abdominal pain R10.84 [facility] [address] [place] [address] Jan, Nausea and vomiting R11.2 [facility] [address] [place] [address] 18 Jan, 2017 [facility] [address] [place] [address] Jan, [facility] [address] [place] [address] Jan, [facility] [address] [place] [address] Jan, [facility] [address] [place] [address] Jan, [facility] [address] [place] [address] Jan, Mood swings F39 [facility] [address] [place] [address] 08 Jan, 2017 [facility] [address] [place] [address] Jan, [facility] [address] [place] [address] Jan, [facility] [address] [address] Jan, Dysmenorrhea N94.6 [facility] [address] [place] [id number] Jan, Acquired immune deficiency syndrome B20 ; Generalized abdominal pain R10.84 and Refused influenza vaccine Z28.21 [facility] [address] [place] [address] Jan, [facility] [address] [address] Dec, Generalized abdominal pain R10.84 [facility] [address] [address] Dec, Dysmenorrhea N94.[address] [address] Dec, Backache M54.9 [facility] [address] [address] Nov, Generalized abdominal pain R10.84 [facility] [address] [address] Nov, Generalized anxiety disorder F41.1 [facility] [address] [address] 08 Nov, 2016 Dysmenorrhea N94.6 [facility] [address] [address] Oct, [facility] [address] [address] Oct, [facility] [address] [address] Oct, [facility] [address] [address] Oct, Generalized abdominal pain R10.84 [facility] [address] [id number] Oct, Acquired immune deficiency syndrome B20 ; shelter 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 Z79.891 ; Bipolar affective disorder F31.9 ; Generalized anxiety disorder F41.1 ; Backache M54.9 ; Mixed hyperlipidemia E78.2 ; Nicotine dependence, cigarettes, uncomplicated F17.210 and Wheezing on auscultation R06.2 [facility] [address] [place] [address] Oct, Oral candidiasis B37.0 [facility] [address] [place] [address] Oct, [facility] [address] [place] [address] Oct, Acute upper respiratory infection J06.[address] [address] Oct, Acute upper respiratory infection J06.9 [facility] [address] [place] [address] Sep, Dysmenorrhea N94.6 [facility] [address] [place] [address] Sep, Generalized anxiety disorder F41.1 [facility] [address] [place] [address] Sep, Dysmenorrhea N94.[address] [address] Sep, [facility] [address] [place] [address] Sep, Dysmenorrhea N94.6 [facility] [address] [place] [address] Aug, Acquired immune deficiency syndrome B20 [facility] [address] [place] [address] Aug, Generalized anxiety disorder F41.1 [facility] [address] [place] [address] Aug, [facility] [address] [place] [address] Aug, [facility] [address] [place] [address] Aug, [facility] [address] [place] [address] Aug, [facility] [address] [place] [address] Aug, [facility] [address] [place] [address] Aug, [facility] [address] [place] [address] Aug, [facility] [address] [place] [address] Aug, Acute opioid withdrawal F11.23 [facility] [address] [place] [address] July, Upper respiratory infection J06.[address] [address] July, Backache M54.9 [facility] [address] [phone] July, Acquired immune deficiency syndrome B20 ; business [employer] 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 Z79.891 ; Hyperglycemia R73.9 ; Bipolar affective disorder F31.9 ; GERD (gastroesophageal reflux disease) K21.9 ; Backache M54.9 ; Generalized anxiety disorder F41.1 ; Mixed hyperlipidemia E78.2 ; Nicotine dependence, cigarettes, uncomplicated F17.210 and Localized edema R60.[address] [address] July, [facility] [address] [place] [address] Jun, Backache M54.9 [facility] [address] [place] [address] Jun, Chronic pain G89.29 [facility] [address] [place] [address] May, Backache M54.9 [facility] [address] [place] [address] May, Backache M54.9 [facility] [address] [place] [address] Apr, Cough R05 [facility] [address] [id number] Apr, Acquired immune deficiency syndrome B20 ; Screening examination for sexually transmitted disease Z11.3 ; Dermatitis L30.9 and Migraine with aura and with status migrainosus, not intractable G43.[address] [address] Apr, Backache M54.[address] [address] Mar, Intrinsic asthma J45.909 ; Nausea and vomiting R11.2 and AIDS B20 [address] [address] Mar, Backache M54.[address] [address] Feb, Chronic pain G89.[address] [address] Feb, Backache M54.[address] [address] Jan, [place], 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 [address] Jan, Asthma, intrinsic 493.[address] [address] Jan, [address] [address] Jan, [address] [address] Jan, Backache M54.[address] [address] Dec, Chronic pain G89.[address] [facility] [address] [place] [phone] Dec, AIDS B20 ; Influenza vaccine needed Z23 ; Intrinsic asthma J45.909 ; Backache M54.9 ; Generalized anxiety disorder F41.1 ; Nicotine dependence, cigarettes, uncomplicated F17.210 and Mixed hyperlipidemia E78.2 [facility] [address] [place] [address] Dec, [facility] [address] [place] [address] Dec, Dysmenorrhea N94.6 [facility] [address] [place] [address] Dec, [facility] [address] [place] [address] Dec, Depression with anxiety F41.8 and Backache M54.9 [facility] [address] [place] [address] Nov, [facility] [address] [place] [address] Nov, Other chronic pain G89.29 [facility] [address] [place] [address] Nov, Other chronic pain G89.29 [facility] [address] [place] [address] 18 Nov, 2015 [facility] [address] [place] [address] 14 Nov, 2015 Generalized anxiety disorder F41.1 [facility] [address] [place] [address] 06 Nov, 2015 [facility] [address] [place] [address] Nov, [facility] [address] [place] [address] 04 Nov, 2015 Chronic pain G89.29 [facility] [address] [place] [address] Oct, [facility] [address] [place] [address] Oct, Other chronic pain G89.29 [facility] [address] [place] [address] Oct, [facility] [address] [place] [address] Oct, [facility] [address] [place] [address] Oct, Nausea and vomiting R11.2 [facility] [address] [place] [address] Oct, Chronic pain G89.29 [facility] [address] [place] [address] Sep, [facility] [address] [place] [address] Sep, Acute upper respiratory infection, unspecified J06.[address] [address] Sep, Upper respiratory infection J06.[address] [address] Sep, [address] [address] Sep, [facility] [address] [place] [address] Sep, Other chronic pain G89.29 [facility] [address] [id number] Sep, AIDS B20 ; shelter (current) use of opiate analgesic Z79.891 ; Smoking F17.200 ; Mixed hyperlipidemia E78.2 ; Chronic pain G89.29 and Edema R60.[address] [address] Sep, [facility] [address] [place] [address] Sep, [facility] [address] [place] [address] Aug, [facility] [address] [place] [address] Aug, Other chronic pain G89.29 [facility] [address] [place] [address] Aug, Generalized anxiety disorder F41.1 [facility] [address] [place] [address] July, Other chronic pain G89.29 [facility] [address] [facility] [place] [address] July, Other chronic pain G89.29 [facility] [address] [facility] [place] [address] July, [facility] [address] [facility] [place] [address] Jun, Generalized anxiety disorder F41.1 [facility] [address] [place] [facility] [place] [address] Jun, [facility] [address] [facility] [place] [address] Jun, Other chronic pain G89.29 [facility] [address] [facility] [place] [address] Jun, Rash and other nonspecific skin eruption R21 [facility] [address] [facility] [place] [address] Jun, [facility] [address] [facility] [place] [address] Jun, [facility] [address] [facility] [place] [address] Jun, [facility] [address] [facility] [place] [address] Jun, [facility] [address] [facility] [place] [address] Jun, [facility] [address] [facility] [place] [address] Jun, [facility] [address] [facility] [place] [address] Jun, [facility] [address] [facility] [place] [address] Jun, Other chronic pain G89.29 [facility] [address] [facility] [place] [address] Jun, [facility] [address] [facility] [place] [address] Jun, [facility] [address] [facility] [place] [address] Jun, [facility] [address] [facility] [place] [address] Jun, [facility] [address] [facility] [place] [address] Jun, [facility] [address] [facility] [place] [address] Jun, [facility] [address] [facility] [place] [address] Jun, [facility] [address] [facility] [place] [address] Jun, [facility] [address] [facility] [place] [address] Jun, [facility] [address] [facility] [place] [address] Jun, Nausea and vomiting R11.2 [facility] [address] [place] [address] May, [facility] [address] [place] [address] May, Rash and other nonspecific skin eruption R21 [facility] [address] [place] [address] May, [facility] [address] [place] [address] May, [facility] [address] [place] [address] May, [facility] [address] [place] [address] May, [facility] [address] [place] [address] May, [facility] [address] [id number] 18 May, 2015 Acquired immune deficiency syndrome B20 ; Screening examination for sexually transmitted disease Z11.3 ; Depression with anxiety F41.8 ; Other chronic pain G89.29 and Dermatitis L30.9 [facility] [address] [place] [address] 14 May, 2015 [facility] [address] [facility] [place] [address] 14 May, 2015 [facility] [address] [facility] [place] [address] May, [facility] [address] [facility] [place] [address] May, Backache M54.9 [facility] [address] [facility] [place] [address] May, Rash and other nonspecific skin eruption R21 [facility] [address] [facility] [place] [address] Apr, [facility] [address] [facility] [place] [address] Apr, [facility] [address] [facility] [place] [address] Apr, Other chronic pain G89.29 [facility] [address] [facility] [place] [address] Apr, [facility] [address] [facility] [place] [address] Apr, [facility] [address] [facility] [place] [address] Apr, [facility] [address] [facility] [place] [address] Apr, [facility] [address] [facility] [place] [address] Apr, [facility] [address] [facility] [place] [address] Apr, [facility] [address] [facility] [address] Apr, [facility] [address] [facility] [address] Apr, [facility] [address] [place] [facility] [address] Apr, [facility] [address] [facility] [place] [address] Apr, [facility] [address] [place] [address] Apr, Other chronic pain G89.29 ; Generalized anxiety disorder F41.1 ; Nausea R11.0 and AIDS B20 [facility] [address] [place] [address] Apr, [facility] [address] [place] [address] Apr, Generalized anxiety disorder F41.1 [facility] [address] [place] [address] Apr, [facility] [address] [place] [address] Apr, Other chronic pain G89.[address] [address] Mar, [facility] [address] [id number] Mar, [employer] (current) use of opiate analgesic Z79.891 ; Bipolar affective disorder F31.9 ; Smoking F17.200 ; Generalized anxiety disorder F41.1 ; Influenza vaccine administered Z23 and AIDS B20 [facility] [address] [place] [address] Mar, Other chronic pain G89.[address] [address] Mar, Generalized anxiety disorder F41.[address] [address] Mar, [facility] [address] [place] [address] Mar, Asymptomatic HIV infection Z21 [facility] [address] [place] [address] Mar, Other chronic pain G89.29 [facility] [address] [place] [address] Feb, [facility] [address] [place] [address] Feb, [facility] [address] [place] [address] Feb, [facility] [address] [place] [address] Feb, [facility] [address] [place] [address] Feb, [facility] [address] [place] [address] Jan, Other chronic pain G89.29 and Nausea & vomiting R11.2 [facility] [address] [place] [address] Jan, Other chronic pain G89.29 [facility] [address] [place] [address] Dec, [facility] [address] [place] [address] Dec, Other chronic pain G89.29 ; Asymptomatic HIV infection Z21 ; Intrinsic asthma J45.909 ; Bipolar affective disorder F31.9 ; Noncompliance Z91.19 ; Migraine G43.909 ; Tobacco use disorder Z72.0 ; GERD (gastroesophageal reflux disease) K21.9 ; Backache M54.9 and Generalized anxiety disorder F41.1 [facility] [address] [place] [address] Nov, [address] [address] Nov, [address] [address] Oct, Other chronic pain 338.29 [facility] [address] [place] [address] Oct, [facility] [address] [place] [address] Oct, Unspecified backache 724.5 and Dysphagia 787.[address] [address] Sep, Other chronic pain 338.[address] [address] Sep, [facility] [address] [place] [address] 30 Aug, 2014 URI (upper respiratory infection) 465.9 and Diarrhea 787.[address] [address] Aug, [address] [address] Aug, Other chronic pain 338.[address] [address] Aug, Other chronic pain 338.29 and Generalized anxiety disorder 300.[address] [address] Aug, [address] [address] July, Other chronic pain 338.29 [facility] [address] [place] [id number] July, Nondependent tobacco use disorder 305.1 ; Unspecified backache 724.5 ; Other chronic pain 338.29 ; Abdominal pain, unspecified site 789.00 ; shelter (current) use of opiate analgesic V58.69 and Acquired immune deficiency syndrome [address] [address] July, Other chronic pain 338.[address] [address] Jun, Other chronic pain 338.[address] [address] Jun, [address] [address] Jun, Other chronic pain 338.[address] [address] Jun, URI (upper respiratory infection) 465.[address] [address] Jun, Generalized anxiety disorder 300.02 and Seasonal allergies 477.[address] [address] Jun, Generalized anxiety disorder 300.02 [facility] [address] [place] [address] May, Other chronic pain 338.[address] [address] May, Other chronic pain 338.29 and Generalized anxiety disorder 300.[address] [address] Apr, Asthma, intrinsic 493.10 and Acute upper respiratory infections of other multiple sites 465.[address] [address] Apr, [facility] [address] [facility] [address] [place], [place] [id number] Apr, Depressive disorder [address] [address] Apr, Other chronic pain 338.[address] [address] Apr, [address] [address] Apr, Other chronic pain 338.[address] [address] Mar, Acute upper respiratory infections of unspecified site 465.9 [facility] [address] [place] [id number] Mar, Migraine 346.90 ; Nondependent tobacco use disorder 305.1 ; Esophageal reflux 530.81 ; Unspecified backache 724.5 ; Abdominal pain, generalized 789.07 ; Flatulence, eructation, and gas pain 787.3 ; Asymptomatic human immunodeficiency virus (HIV) infection status V08 ; Dyspepsia and other specified disorders of function of stomach 536.8 ; Nausea alone 787.02 and Asthma 493.[address] [address] Mar, Other chronic pain 338.[address] [address] Feb, Other chronic pain 338.29 and Generalized anxiety disorder 300.02 [facility] [address] [place] [address] Feb, Abdominal pain, generalized 789.07 [facility] [address] [place] [address] Jan, Abdominal pain, generalized 789.07 [facility] [address] [place] [id number] Dec, [facility] [address] [place] [address] Dec, [facility] [address] [place] [address] Dec, Unspecified backache 724.5 [facility] [address] [place] [address] Dec, [facility] [address] [place] [address] Nov, [place] [address] [id number] Nov, [facility] [address] [place] [phone] Nov, Bipolar disorder, unspecified 296.80 ; Abdominal pain, generalized 789.07 ; Generalized anxiety disorder 300.02 ; Nausea alone 787.02 ; Flu vaccine need V04.81 and Human immunodeficiency virus (HIV) disease 042 [facility] [address] [place] [address] Nov, [facility] [address] [id number] Oct, [facility] [address] [id number] Oct, [facility] [address] [id number] Aug, [facility] [address] [place] [address] Jun, [facility] [address] [place] [address] Mar, [facility] [address] [place] [address] Oct, [facility] [address] [facility] [place] [address] July, [facility] [address] [facility] [place] [address] Jun, [facility] [address] [facility] [place] [address] May, [facility] [address] [facility] [place] [address] Mar, [facility] [address] [facility] [place] [address] Feb, [facility] [address] [place] [address] Nov, [facility] [address] [facility] [place] [address] Oct, [facility] [address] [facility] [place] [address] Aug, [facility] [address] [facility] [place] [address] May, [facility] [address] [facility] [place] [address] Mar, IMMUNIZATIONS No Known Immunizations SOCIAL HISTORY Never Assessed REASON FOR VISIT refill PLAN OF CARE VITAL SIGNS MEDICATIONS Medication Instructions Dosage Frequency Start Date End Date Duration Status Stribild [phone] MG Orally Once a day 1 tablet [...]
--- OUTSIDE RECORDS SUMMARY | 2018-03-22 13:52 | XMS REPORT ---
Author Author Dulce Herrera [facility] Address [address], [place] [id number] Care Team Providers Care Staff Psychologist Name Role Phone Dulce Herrera Unavailable PROBLEMS Type Condition ICD9-CM Code [id number] Code Onset Dates Condition Status SNOMED Code Problem Bipolar affective disorder F31.9 Active 86718926 Problem Nicotine dependence, cigarettes, uncomplicated F17.210 Active 96383542 Problem assisted (current) use of opiate analgesic Z79.891 Active 135026274 Problem Non-intractable cyclical vomiting with nausea G43.A0 Active 89111603 Problem Poor appetite R63.0 Active 71653880 Problem Wheezing on auscultation R06.2 Active 101514686 Problem Acquired immune deficiency syndrome B20 Active 74062429 Problem Other chronic pain G89.29 Active 25044954 Problem Mood swings F39 Active 59929959 Problem Generalized anxiety disorder F41.1 Active 49837798 Problem GERD (gastroesophageal reflux disease) K21.9 Active 069761843 Problem Mixed hyperlipidemia E78.2 Active 952090375 Problem Intrinsic asthma J45.909 Active 760379546 Problem Migraine G43.909 Active 35520723 Problem Backache M54.9 Active [id number] ALLERGIES No Information ENCOUNTERS Encounter Location Date Diagnosis [facility] [address] [place], [place] [id number] Nov, [facility] [address] [place] [address] Nov, Acquired immune deficiency syndrome B20 [facility] [address] [place] [address] Nov, Acquired immune deficiency syndrome B20 [facility] [address] [place] [address] Oct, [facility] [address] [place] [address] Oct, Backache M54.9 [facility] [address] [place] [address] Oct, [facility] [address] [place] [address] Oct, [facility] [address] [place] [address] Oct, [facility] [address] [place] [address] Oct, [facility] [address] [place] [address] Oct, Upper respiratory infection J06.9 and Backache M54.9 [facility] [address] [place] [address] Oct, Generalized anxiety disorder F41.1 and Backache M54.9 [facility] [address] [place] [address] Sep, Acquired immune deficiency syndrome B20 [facility] [address] [place] [address] Sep, [facility] [address] [place] [id number] Sep, Acquired immune deficiency syndrome B20 ; Intrinsic asthma J45.909 and Open wound T14.8XXA [facility] [address] [place] [address] Sep, [facility] [address] [place] [address] Sep, [facility] [address] [place] [address] Sep, [facility] [address] [place] [address] Sep, Poor appetite R63.0 [facility] [address] [place] [address] Sep, Backache M54.9 [facility] [address] [place] [address] Sep, [facility] [address] [place] [address] Aug, Generalized anxiety disorder F41.1 [facility] [address] [facility] [place] [address] Aug, [facility] [address] [facility] [place] [address] Aug, Backache M54.9 [facility] [address] [facility] [place] [address] Aug, [facility] [address] [facility] [place] [address] Aug, Spider bite T63.301A [facility] [address] [facility] [place] [address] Aug, [facility] [address] [facility] [place] [address] Aug, [facility] [address] [facility] [place] [address] Aug, [facility] [address] [facility] [place] [address] July, [facility] [address] [facility] [place] [address] July, [facility] [address] [facility] [place] [address] July, [facility] [address] [facility] [place] [address] July, [facility] [address] [facility] [place] [address] July, [facility] [address] [facility] [place] [address] July, Poor appetite R63.0 and Backache M54.9 [facility] [address] [facility] [place] [address] July, [facility] [address] [facility] [place] [address] July, [facility] [address] [facility] [place] [address] July, [facility] [address] [facility] [place] [address] July, [facility] [address] [facility] [place] [address] July, [facility] [address] [facility] [place] [address] July, Nausea and vomiting R11.2 [facility] [address] [facility] [place] [address] July, [facility] [address] [facility] [place] [address] July, [facility] [address] [facility] [place] [address] July, [facility] [address] [facility] [place] [address] July, [facility] [address] [facility] [place] [address] July, [facility] [address] [facility] [place] [address] July, Other chronic pain G89.29 [facility] [address] [facility] [place] [address] July, [facility] [address] [facility] [place] [address] July, GERD (gastroesophageal reflux disease) K21.9 [facility] [address] [facility] [place] [address] July, [facility] [address] [facility] [place] [address] Jun, [facility] [address] [facility] [place] [address] Jun, [facility] [address] [facility] [place] [address] Jun, [facility] [address] [facility] [place] [address] Jun, [facility] [address] [facility] [place] [address] Jun, Other chronic pain G89.29 [facility] [address] [facility] [place] [address] Jun, [facility] [address] [facility] [place] [address] Jun, [facility] [address] [place] [address] Jun, [facility] [address] [place] [address] Jun, [facility] [address] [place] [address] Jun, [facility] [address] [place] [address] Jun, Generalized anxiety disorder F41.1 ; Other chronic pain G89.29 and Non-intractable cyclical vomiting with nausea G43.A0 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 ; Nicotine dependence, cigarettes, uncomplicated F17.210 ; Lower respiratory infection J22 ; Poor appetite R63.0 ; Other chronic pain G89.29 ; Generalized anxiety disorder F41.1 and Need for tetanus booster Z23 [facility] [address] [place] [address] Jun, [facility] [address] [place] [address] May, Generalized abdominal pain R10.84 [facility] [address] [place] [address] May, [facility] [address] [place] [address] Apr, AIDS B20 ; Generalized abdominal pain R10.84 and Dysmenorrhea N94.6 [facility] [address] [place] [address] Apr, Acute URI J06.[address] [address] Apr, [facility] [address] [place] [address] Apr, 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 and Migraine G43.909 [facility] [address] [facility] [place] [address] Mar, Dysmenorrhea N94.6 [facility] [address] [facility] [place] [address] Mar, [facility] [address] [facility] [place] [address] Mar, Generalized anxiety disorder F41.1 and Generalized abdominal pain R10.84 [facility] [address] [facility] [place] [address] Mar, [facility] [address] [place] [place] [address] Mar, Generalized abdominal pain R10.84 and Generalized anxiety disorder F41.1 [facility] [address] [facility] [place] [address] Feb, [facility] [address] [facility] [place] [address] Feb, Generalized abdominal pain R10.84 [facility] [address] [place] [address] Jan, Nausea and vomiting R11.2 [facility] [address] [facility] [place] [address] 18 Jan, 2017 [facility] [address] [place] [address] Jan, [facility] [address] [facility] [place] [address] Jan, [facility] [address] [place] [address] Jan, [facility] [address] [place] [address] Jan, [facility] [address] [facility] [place] [address] Jan, Mood swings F39 [facility] [address] [facility] [place] [address] 08 Jan, 2017 [facility] [address] [place] [address] Jan, [facility] [address] [place] [address] Jan, [facility] [address] [address] Jan, Dysmenorrhea N94.6 [facility] [address] [place] [id number] Jan, Acquired immune deficiency syndrome B20 ; Generalized abdominal pain R10.84 and Refused influenza vaccine Z28.21 [facility] [address] [place] [address] Jan, [facility] [address] [address] Dec, Generalized abdominal pain R10.84 [facility] [address] [address] Dec, Dysmenorrhea N94.[address] [address] Dec, Backache M54.9 [facility] [address] [address] Nov, Generalized abdominal pain R10.84 [facility] [address] [address] Nov, Generalized anxiety disorder F41.1 [facility] [address] [address] 08 Nov, 2016 Dysmenorrhea N94.6 [facility] [address] [address] Oct, [facility] [address] [address] Oct, [facility] [address] [address] Oct, [facility] [address] [address] Oct, Generalized abdominal pain R10.84 [facility] [address] [place] [id number] Oct, Acquired immune deficiency syndrome B20 ; assisted 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 Z79.891 ; Bipolar affective disorder F31.9 ; Generalized anxiety disorder F41.1 ; Backache M54.9 ; Mixed hyperlipidemia E78.2 ; Nicotine dependence, cigarettes, uncomplicated F17.210 and Wheezing on auscultation R06.2 [facility] [address] [place] [address] Oct, Oral candidiasis B37.0 [facility] [address] [place] [address] Oct, [facility] [address] [place] [address] Oct, Acute upper respiratory infection J06.[address] [address] Oct, Acute upper respiratory infection J06.9 [facility] [address] [place] [address] Sep, Dysmenorrhea N94.6 [facility] [address] [place] [address] Sep, Generalized anxiety disorder F41.1 [facility] [address] [place] [address] Sep, Dysmenorrhea N94.[address] [address] Sep, [facility] [address] [place] [address] Sep, Dysmenorrhea N94.6 [facility] [address] [place] [address] Aug, Acquired immune deficiency syndrome B20 [facility] [address] [place] [address] Aug, Generalized anxiety disorder F41.1 [facility] [address] [place] [address] Aug, [facility] [address] [place] [address] Aug, [facility] [address] [place] [address] Aug, [facility] [address] [place] [address] Aug, [facility] [address] [place] [address] Aug, [facility] [address] [place] [address] Aug, [facility] [address] [place] [address] Aug, [facility] [address] [place] [address] Aug, Acute opioid withdrawal F11.23 [facility] [address] [place] [address] July, Upper respiratory infection J06.[address] [address] July, Backache M54.9 [facility] [address] [place] [id number] July, Acquired immune deficiency syndrome B20 ; 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 ; Hyperglycemia R73.9 ; Bipolar affective disorder F31.9 ; GERD (gastroesophageal reflux disease) K21.9 ; Backache M54.9 ; Generalized anxiety disorder F41.1 ; Mixed hyperlipidemia E78.2 ; Nicotine dependence, cigarettes, uncomplicated F17.210 and Localized edema R60.[address] [address] July, [facility] [address] [place] [address] Jun, Backache M54.9 [facility] [address] [place] [address] Jun, Chronic pain G89.29 [facility] [address] [place] [address] May, Backache M54.9 [facility] [address] [place] [address] May, Backache M54.9 [facility] [address] [place] [address] Apr, Cough R05 [facility] [address] [id number] Apr, Acquired immune deficiency syndrome B20 ; Screening examination for sexually transmitted disease Z11.3 ; Dermatitis L30.9 and Migraine with aura and with status migrainosus, not intractable G43.[address] [address] Apr, Backache M54.[address] [address] Mar, Intrinsic asthma J45.909 ; Nausea and vomiting R11.2 and AIDS B20 [address] [address] Mar, Backache M54.[address] [address] Feb, Chronic pain G89.[address] [address] Feb, Backache M54.[address] [address] Jan, [facility], 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 [address] Jan, Asthma, intrinsic 493.[address] [address] Jan, [address] [address] Jan, [address] [address] Jan, Backache M54.[address] [address] Dec, Chronic pain G89.[address] [facility] [address] [place] [phone] Dec, AIDS B20 ; Influenza vaccine needed Z23 ; Intrinsic asthma J45.909 ; Backache M54.9 ; Generalized anxiety disorder F41.1 ; Nicotine dependence, cigarettes, uncomplicated F17.210 and Mixed hyperlipidemia E78.2 [facility] [address] [place] [address] Dec, [facility] [address] [place] [address] Dec, Dysmenorrhea N94.6 [facility] [address] [place] [address] Dec, [facility] [address] [place] [address] Dec, Depression with anxiety F41.8 and Backache M54.9 [facility] [address] [place] [address] Nov, [facility] [address] [place] [address] Nov, Other chronic pain G89.29 [facility] [address] [place] [address] Nov, Other chronic pain G89.29 [facility] [address] [place] [address] 18 Nov, 2015 [facility] [address] [place] [address] 14 Nov, 2015 Generalized anxiety disorder F41.1 [facility] [address] [place] [address] 06 Nov, 2015 [facility] [address] [place] [address] Nov, [facility] [address] [place] [address] 04 Nov, 2015 Chronic pain G89.29 [facility] [address] [place] [address] Oct, [facility] [address] [place] [address] Oct, Other chronic pain G89.29 [facility] [address] [place] [address] Oct, [facility] [address] [place] [address] Oct, [facility] [address] [place] [address] Oct, Nausea and vomiting R11.2 [facility] [address] [place] [address] Oct, Chronic pain G89.29 [facility] [address] [place] [address] Sep, [facility] [address] [place] [address] Sep, Acute upper respiratory infection, unspecified J06.[address] [address] Sep, Upper respiratory infection J06.[address] [address] Sep, [address] [address] Sep, [facility] [address] [place] [address] Sep, Other chronic pain G89.29 [facility] [address] [place] [id number] Sep, AIDS B20 ; assisted (current) use of opiate analgesic Z79.891 ; Smoking F17.200 ; Mixed hyperlipidemia E78.2 ; Chronic pain G89.29 and Edema R60.[address] [address] Sep, [facility] [address] [place] [address] Sep, [facility] [address] [place] [address] Aug, [facility] [address] [place] [address] Aug, Other chronic pain G89.29 [facility] [address] [place] [address] Aug, Generalized anxiety disorder F41.1 [facility] [address] [place] [address] July, Other chronic pain G89.29 [facility] [address] [facility] [place] [address] July, Other chronic pain G89.29 [facility] [address] [facility] [place] [address] July, [facility] [address] [facility] [place] [address] Jun, Generalized anxiety disorder F41.1 [facility] [address] [facility] [place] [address] Jun, [facility] [address] [facility] [place] [address] Jun, Other chronic pain G89.29 [facility] [address] [facility] [place] [address] Jun, Rash and other nonspecific skin eruption R21 [facility] [address] [facility] [place] [address] Jun, [facility] [address] [facility] [place] [address] Jun, [facility] [address] [facility] [place] [address] Jun, [facility] [address] [facility] [place] [address] Jun, [facility] [address] [facility] [place] [address] Jun, [facility] [address] [facility] [place] [address] Jun, [facility] [address] [facility] [place] [address] Jun, [facility] [address] [facility] [place] [address] Jun, Other chronic pain G89.29 [facility] [address] [facility] [place] [address] Jun, [facility] [address] [facility] [place] [address] Jun, [facility] [address] [facility] [place] [address] Jun, [facility] [address] [facility] [place] [address] Jun, [facility] [address] [facility] [place] [address] Jun, [facility] [address] [facility] [place] [address] Jun, [facility] [address] [facility] [place] [address] Jun, [facility] [address] [facility] [place] [address] Jun, [facility] [address] [facility] [place] [address] Jun, [facility] [address] [facility] [place] [address] Jun, Nausea and vomiting R11.2 [facility] [address] [facility] [place] [address] May, [facility] [address] [facility] [place] [address] May, Rash and other nonspecific skin eruption R21 [facility] [address] [facility] [place] [address] May, [facility] [address] [facility] [place] [address] May, [facility] [address] [facility] [place] [address] May, [facility] [address] [facility] [place] [address] May, [facility] [address] [facility] [place] [address] May, [facility] [address] [place], [place] [id number] 18 May, 2015 Acquired immune deficiency syndrome B20 ; Screening examination for sexually transmitted disease Z11.3 ; Depression with anxiety F41.8 ; Other chronic pain G89.29 and Dermatitis L30.9 [facility] [address] [facility] [place] [address] 14 May, 2015 [facility] [address] [facility] [place] [address] 14 May, 2015 [facility] [address] [facility] [place] [address] May, [facility] [address] [facility] [place] [address] May, Backache M54.9 [facility] [address] [facility] [place] [address] May, Rash and other nonspecific skin eruption R21 [facility] [address] [facility] [place] [address] Apr, [facility] [address] [facility] [place] [address] Apr, [facility] [address] [facility] [place] [address] Apr, Other chronic pain G89.29 [facility] [address] [facility] [place] [address] Apr, [facility] [address] [facility] [place] [address] Apr, [facility] [address] [facility] [place] [address] Apr, [facility] [address] [facility] [place] [address] Apr, [facility] [address] [facility] [place] [address] Apr, [facility] [address] [facility] [place] [address] Apr, [facility] [address] [facility] [place] [address] Apr, [facility] [address] [facility] [place] [address] Apr, [facility] [address] [facility] [place] [address] Apr, [facility] [address] [facility] [place] [address] Apr, [facility] [address] [place] [address] Apr, Other chronic pain G89.29 ; Generalized anxiety disorder F41.1 ; Nausea R11.0 and AIDS B20 [facility] [address] [place] [address] Apr, [facility] [address] [place] [address] Apr, Generalized anxiety disorder F41.1 [facility] [address] [place] [address] Apr, [facility] [address] [place] [address] Apr, Other chronic pain G89.[address] [address] Mar, [facility] [address] [place], [place] [id number] Mar, 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 ; Bipolar affective disorder F31.9 ; Smoking F17.200 ; Generalized anxiety disorder F41.1 ; Influenza vaccine administered Z23 and AIDS B20 [facility] [address] [place] [address] Mar, Other chronic pain G89.[address] [address] Mar, Generalized anxiety disorder F41.[address] [address] Mar, [facility] [address] [place] [address] Mar, Asymptomatic HIV infection Z21 [facility] [address] [place] [address] Mar, Other chronic pain G89.29 [facility] [address] [place] [address] Feb, [facility] [address] [place] [address] Feb, [facility] [address] [place] [address] Feb, [facility] [address] [place] [address] Feb, [facility] [address] [place] [address] Feb, [facility] [address] [place] [address] Jan, Other chronic pain G89.29 and Nausea & vomiting R11.2 [facility] [address] [place] [address] Jan, Other chronic pain G89.29 [facility] [address] [place] [address] Dec, [facility] [address] [place] [address] Dec, Other chronic pain G89.29 ; Asymptomatic HIV infection Z21 ; Intrinsic asthma J45.909 ; Bipolar affective disorder F31.9 ; Noncompliance Z91.19 ; Migraine G43.909 ; Tobacco use disorder Z72.0 ; GERD (gastroesophageal reflux disease) K21.9 ; Backache M54.9 and Generalized anxiety disorder F41.1 [facility] [address] [place] [address] Nov, [address] [address] Nov, [address] [address] Oct, Other chronic pain 338.29 [facility] [address] [place] [address] Oct, [facility] [address] [place] [address] Oct, Unspecified backache 724.5 and Dysphagia 787.[address] [address] Sep, Other chronic pain 338.[address] [address] Sep, [facility] [address] [place] [address] 30 Aug, 2014 URI (upper respiratory infection) 465.9 and Diarrhea 787.[address] [address] Aug, [address] [address] Aug, Other chronic pain 338.[address] [address] Aug, Other chronic pain 338.29 and Generalized anxiety disorder 300.[address] [address] Aug, [address] [address] July, Other chronic pain 338.29 [facility] [address] [place], [place] [id number] July, Nondependent tobacco use disorder 305.1 ; Unspecified backache 724.5 ; Other chronic pain 338.29 ; Abdominal pain, unspecified site 789.00 ; assisted (current) use of opiate analgesic V58.69 and Acquired immune deficiency syndrome [address] [address] July, Other chronic pain 338.[address] [address] Jun, Other chronic pain 338.[address] [address] Jun, [address] [address] Jun, Other chronic pain 338.[address] [address] Jun, URI (upper respiratory infection) 465.[address] [address] Jun, Generalized anxiety disorder 300.02 and Seasonal allergies 477.[address] [address] Jun, Generalized anxiety disorder 300.02 [facility] [address] [place] [address] May, Other chronic pain 338.[address] [address] May, Other chronic pain 338.29 and Generalized anxiety disorder 300.[address] [address] Apr, Asthma, intrinsic 493.10 and Acute upper respiratory infections of other multiple sites 465.[address] [address] Apr, [facility] [address] [facility] [address] [id number] Apr, Depressive disorder [address] [address] Apr, Other chronic pain 338.[address] [address] Apr, [address] [address] Apr, Other chronic pain 338.[address] [address] Mar, Acute upper respiratory infections of unspecified site 465.9 [facility] [address] [place] [id number] Mar, Migraine 346.90 ; Nondependent tobacco use disorder 305.1 ; Esophageal reflux 530.81 ; Unspecified backache 724.5 ; Abdominal pain, generalized 789.07 ; Flatulence, eructation, and gas pain 787.3 ; Asymptomatic human immunodeficiency virus (HIV) infection status V08 ; Dyspepsia and other specified disorders of function of stomach 536.8 ; Nausea alone 787.02 and Asthma 493.[address] [address] Mar, Other chronic pain 338.[address] [address] Feb, Other chronic pain 338.29 and Generalized anxiety disorder 300.02 [facility] [address] [place] [address] Feb, Abdominal pain, generalized 789.07 [facility] [address] [place] [address] Jan, Abdominal pain, generalized 789.07 [facility] [address] [place] [id number] Dec, [facility] [address] [place] [address] Dec, [facility] [address] [place] [address] Dec, Unspecified backache 724.5 [facility] [address] [place] [address] Dec, [facility] [address] [place] [address] Nov, [place] [address] [id number] Nov, [facility] [address] [place] [id number] Nov, Bipolar disorder, unspecified 296.80 ; Abdominal pain, generalized 789.07 ; Generalized anxiety disorder 300.02 ; Nausea alone 787.02 ; Flu vaccine need V04.81 and Human immunodeficiency virus (HIV) disease 042 [facility] [address] [place] [address] Nov, [facility] [address] [id number] Oct, [facility] [address] [id number] Oct, [facility] [address] [id number] Aug, [facility] [address] [place] [address] Jun, [facility] [address] [place] [address] Mar, [facility] [address] [place] [address] Oct, [facility] [address] [facility] [place] [address] July, [facility] [address] [facility] [place] [address] Jun, [facility] [address] [facility] [place] [address] May, [facility] [address] [facility] [place] [address] Mar, [facility] [address] [facility] [place] [address] Feb, [facility] [address] [facility] [place] [address] Nov, [facility] [address] [facility] [place] [address] Oct, [facility] [address] [facility] [place] [address] Aug, [facility] [address] [facility] [place] [address] May, [facility] [address] [facility] [place] [address] Mar, IMMUNIZATIONS No Known Immunizations SOCIAL HISTORY Never Assessed REASON FOR VISIT PLAN OF CARE VITAL SIGNS MEDICATIONS Medication Instructions Dosage Frequency Start Date End Date Duration Status Stribild [phone] MG Orally Once a day 1 tablet [...]
--- OUTSIDE RECORDS SUMMARY | 2018-03-22 13:53 | XMS REPORT ---
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 Name Role Phone Dulce Herrera Unavailable PROBLEMS Type Condition ICD9-CM Code SCY26-JZ Code Onset Dates Condition Status SNOMED Code Problem Bipolar affective disorder F31.9 Active 52159510 Problem Nicotine dependence, cigarettes, uncomplicated F17.210 Active 04717377 Problem custodial (current) use of opiate analgesic Z79.891 Active 282939297 Problem Non-intractable cyclical vomiting with nausea G43.A0 Active 59394783 Problem Poor appetite R63.0 Active 29125039 Problem Wheezing on auscultation R06.2 Active 588393226 Problem Acquired immune deficiency syndrome B20 Active 79059203 Problem Other chronic pain G89.29 Active 02204041 Problem Mood swings F39 Active 53872298 Problem Generalized anxiety disorder F41.1 Active 56318920 Problem GERD (gastroesophageal reflux disease) K21.9 Active 952485250 Problem Mixed hyperlipidemia E78.2 Active 428019989 Problem Intrinsic asthma J45.909 Active 750681183 Problem Migraine G43.909 Active 52443236 Problem Backache M54.9 Active [id number] ALLERGIES No Information ENCOUNTERS Encounter Location Date Diagnosis [facility], [place], [facility] [address] [facility] [address] [place] [id number] Nov, [facility] [address] [place] [address] Oct, [facility] [address] [place] [address] Oct, Backache M54.9 [facility] [address] [place] [address] Oct, [facility] [address] [place] [address] Oct, [facility] [address] [place] [address] Oct, [facility] [address] [place] [address] Oct, [facility] [address] [place] [address] Oct, Upper respiratory infection J06.9 and Backache M54.9 [facility] [address] [place] [address] Oct, Generalized anxiety disorder F41.1 and Backache M54.9 [facility] [address] [place] [address] Sep, Acquired immune deficiency syndrome B20 [facility] [address] [place] [address] Sep, [facility] [address] [place] [id number] Sep, Acquired immune deficiency syndrome B20 ; Intrinsic asthma J45.909 and Open wound T14.8XXA [facility] [address] [place] [address] Sep, [facility] [address] [place] [address] Sep, [facility] [address] [place] [address] Sep, [facility] [address] [place] [address] Sep, Poor appetite R63.0 [facility] [address] [place] [address] Sep, Backache M54.9 [facility] [address] [place] [address] Sep, [facility] [address] [place] [address] Aug, Generalized anxiety disorder F41.1 [facility] [address] [place] [address] Aug, [facility] [address] [place] [address] Aug, Backache M54.9 [facility] [address] [place] [address] Aug, [facility] [address] [place] [address] Aug, Spider bite T63.301A [facility] [address] [place] [address] Aug, [facility] [address] [place] [address] Aug, [facility] [address] [place] [address] Aug, [facility] [address] [place] [address] July, [facility] [address] [place] [address] July, [facility] [address] [place] [address] July, [facility] [address] [place] [address] July, [facility] [address] [place] [address] July, [facility] [address] [place] [address] July, Poor appetite R63.0 and Backache M54.9 [facility] [address] [place] [address] July, [facility] [address] [place] [address] July, [facility] [address] [place] [address] July, [facility] [address] [place] [address] July, [facility] [address] [place] [address] July, [facility] [address] [place] [address] July, Nausea and vomiting R11.2 [facility] [address] [place] [address] July, [facility] [address] [place] [address] July, [facility] [address] [place] [address] July, [facility] [address] [place] [address] July, [facility] [address] [place] [address] July, [facility] [address] [place] [address] July, Other chronic pain G89.29 [facility] [address] [place] [address] July, [facility] [address] [place] [address] July, GERD (gastroesophageal reflux disease) K21.9 [facility] [address] [place] [address] July, [facility] [address] [place] [address] Jun, [facility] [address] [place] [address] Jun, [facility] [address] [place] [address] Jun, [facility] [address] [place] [address] Jun, [facility] [address] [place] [address] Jun, Other chronic pain G89.29 [facility] [address] [place] [address] Jun, [facility] [address] [place] [address] Jun, [facility] [address] [place] [address] Jun, [facility] [address] [place] [address] Jun, [address] [address] Jun, [address] [address] Jun, Generalized anxiety disorder F41.1 ; Other chronic pain G89.29 and Non-intractable cyclical vomiting with nausea G43.A0 [facility] [address] [id number] Jun, Acquired immune deficiency syndrome B20 ; 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 ; Nicotine dependence, cigarettes, uncomplicated F17.210 ; Lower respiratory infection J22 ; Poor appetite R63.0 ; Other chronic pain G89.29 ; Generalized anxiety disorder F41.1 and Need for tetanus booster Z23 [address] [address] Jun, [address] [address] May, Generalized abdominal pain R10.[address] [address] May, [address] [address] Apr, AIDS B20 ; Generalized abdominal pain R10.84 and Dysmenorrhea N94.[address] [address] Apr, Acute URI J06.[address] [address] Apr, [address] [address] Apr, [address] [id number] Apr, Acquired immune deficiency syndrome B20 ; custodial ( current) use of opiate analgesic Z79.891 and Migraine G43.[address] [address] Mar, Dysmenorrhea N94.[address] [place] [address] Mar, [facility] [address] [place] [address] Mar, Generalized anxiety disorder F41.1 and Generalized abdominal pain R10.84 [facility] [address] [place] [address] Mar, [facility] [address] [place] [address] Mar, Generalized abdominal pain R10.84 and Generalized anxiety disorder F41.1 [facility] [address] [place] [address] Feb, [facility] [address] [place] [address] Feb, Generalized abdominal pain R10.84 [facility] [address] [place] [address] Jan, Nausea and vomiting R11.2 [facility] [address] [place] [address] Jan, [facility] [address] [place] [address] Jan, [facility] [address] [place] [address] Jan, [facility] [address] [place] [address] Jan, [facility] [address] [place] [address] Jan, [facility] [address] [place] [address] Jan, Mood swings F39 [facility] [address] [place] [address] Jan, [facility] [address] [place] [address] Jan, [facility] [address] [place] [address] Jan, [facility] [address] [place] [address] Jan, Dysmenorrhea N94.6 [facility] [address] [place] [phone] Jan, Acquired immune deficiency syndrome B20 ; Generalized abdominal pain R10.84 and Refused influenza vaccine Z28.[address] [address] Jan, [address] [address] Dec, Generalized abdominal pain R10.[address] [address] Dec, Dysmenorrhea N94.[address] [address] Dec, Backache M54.[address] [address] Nov, Generalized abdominal pain R10.[address] [address] Nov, Generalized anxiety disorder F41.[address] [address] Nov, Dysmenorrhea N94.[address] [address] Oct, [address] [address] Oct, [address] [address] Oct, [address] [address] Oct, Generalized abdominal pain R10.84 [facility] [place] [address] [place], [place] [id number] Oct, Acquired immune deficiency syndrome B20 ; 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 ; Bipolar affective disorder F31.9 ; Generalized anxiety disorder F41.1 ; Backache M54.9 ; Mixed hyperlipidemia E78.2 ; Nicotine dependence, cigarettes, uncomplicated F17.210 and Wheezing on auscultation R06.[address] [place] [address] Oct, Oral candidiasis B37.0 [facility] [address] [place] [address] Oct, [facility] [address] [place] [address] Oct, Acute upper respiratory infection J06.9 [facility] [address] [place] [address] Oct, Acute upper respiratory infection J06.9 [facility] [address] [place] [address] Sep, Dysmenorrhea N94.6 [facility] [address] [place] [address] Sep, Generalized anxiety disorder F41.1 [facility] [address] [place] [address] Sep, Dysmenorrhea N94.6 [facility] [address] [place] [address] Sep, [facility] [address] [place] [address] Sep, Dysmenorrhea N94.6 [facility] [address] [place] [address] Aug, Acquired immune deficiency syndrome B20 [facility] [address] [place] [address] Aug, Generalized anxiety disorder F41.1 [facility] [address] [place] [address] Aug, [facility] [address] [place] [address] Aug, [facility] [address] [place] [address] Aug, [facility] [address] [place] [address] Aug, [facility] [address] [place] [address] Aug, [facility] [address] [place] [address] 08 Aug, [address] [address] Aug, [address] [address] Aug, Acute opioid withdrawal F11.[address] [address] July, Upper respiratory infection J06.[address] [address] July, Backache M54.9 [facility] [address] [place] [phone] July, Acquired immune deficiency syndrome B20 ; custodial 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 Z79.891 ; Hyperglycemia R73.9 ; Bipolar affective disorder F31.9 ; GERD (gastroesophageal reflux disease) K21.9 ; Backache M54.9 ; Generalized anxiety disorder F41.1 ; Mixed hyperlipidemia E78.2 ; Nicotine dependence, cigarettes, uncomplicated F17.210 and Localized edema R60.[address] [address] July, [address] [address] Jun, Backache M54.[address] [address] Jun, Chronic pain G89.[address] [address] May, Backache M54.[address] [address] May, Backache M54.[address] [address] Apr, Cough R05 [facility] [address] [place] [phone] 10 Apr, 2016 Acquired immune deficiency syndrome B20 ; Screening examination for sexually transmitted disease Z11.3 ; Dermatitis L30.9 and Migraine with aura and with status migrainosus, not intractable G43.101 [facility] [address] [place] [address] Apr, Backache M54.9 [facility] [address] [place] [address] Mar, Intrinsic asthma J45.909 ; Nausea and vomiting R11.2 and AIDS B20 [facility] [address] [place] [address] Mar, Backache M54.9 [facility] [address] [place] [address] Feb, Chronic pain G89.[address] [address] Feb, Backache M54.[address] [address] Jan, [place] eye, 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 [address] Jan, Asthma, intrinsic 493.[address] [address] Jan, [address] [address] Jan, [address] [address] Jan, Backache M54.[address] [address] Dec, Chronic pain G89.29 [facility] [address] [place] [id number] Dec, AIDS B20 ; Influenza vaccine needed Z23 ; Intrinsic asthma J45.909 ; Backache M54.9 ; Generalized anxiety disorder F41.1 ; Nicotine dependence, cigarettes, uncomplicated F17.210 and Mixed hyperlipidemia E78.[address] [address] Dec, [address] [address] Dec, Dysmenorrhea N94.6 [facility] [address] [place] [address] Dec, [facility] [address] [place] [address] 17 Dec, 2015 Depression with anxiety F41.8 and Backache M54.9 [facility] [address] [place] [address] 19 Nov, 2015 [facility] [address] [place] [address] 19 Nov, 2015 Other chronic pain G89.29 [facility] [address] [place] [address] 18 Nov, 2015 Other chronic pain G89.29 [facility] [address] [place] [address] 18 Nov, 2015 [facility] [address] [place] [address] 14 Nov, 2015 Generalized anxiety disorder F41.1 [facility] [address] [place] [address] 06 Nov, 2015 [facility] [address] [place] [address] Nov, [facility] [address] [place] [address] Nov, Chronic pain G89.29 [facility] [address] [place] [address] Oct, [facility] [address] [place] [address] Oct, Other chronic pain G89.29 [facility] [address] [place] [address] Oct, [facility] [address] [place] [address] Oct, [facility] [address] [place] [address] Oct, Nausea and vomiting R11.2 [facility] [address] [place] [address] Oct, Chronic pain G89.29 [facility] [address] [place] [address] Sep, [facility] [address] [place] [address] Sep, Acute upper respiratory infection, unspecified J06.9 [facility] [address] [place] [address] Sep, Upper respiratory infection J06.9 [facility] [address] [place] [address] Sep, [facility] [address] [place] [address] Sep, [facility] [address] [place] [address] Sep, Other chronic pain G89.29 [facility] [place] [address] [place] [phone] Sep, AIDS B20 ; 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 ; Smoking F17.200 ; Mixed hyperlipidemia E78.2 ; Chronic pain G89.29 and Edema R60.9 [facility] [address] [place] [address] Sep, [facility] [address] [place] [address] Sep, [facility] [address] [place] [address] Aug, [facility] [address] [place] [address] Aug, Other chronic pain G89.29 [facility] [address] [place] [address] Aug, Generalized anxiety disorder F41.1 [facility] [address] [place] [address] July, Other chronic pain G89.29 [facility] [address] [place] [address] July, Other chronic pain G89.29 [facility] [address] [place] [address] July, [facility] [address] [place] [address] Jun, Generalized anxiety disorder F41.1 [facility] [address] [place] [address] Jun, [facility] [address] [place] [address] Jun, Other chronic pain G89.29 [facility] [address] [place] [address] Jun, Rash and other nonspecific skin eruption R21 [facility] [address] [place] [address] Jun, [facility] [address] [place] [address] Jun, [facility] [address] [place] [address] Jun, [facility] [address] [place] [address] Jun, [facility] [address] [place] [address] Jun, [facility] [address] [place] [address] Jun, [facility] [address] [place] [address] Jun, [facility] [address] [place] [address] Jun, Other chronic pain G89.29 [facility] [address] [place] [address] Jun, [facility] [address] [place] [address] Jun, [facility] [address] [place] [address] Jun, [facility] [address] [place] [address] Jun, [facility] [address] [place] [address] Jun, [facility] [address] [place] [address] Jun, [facility] [address] [place] [address] Jun, [facility] [address] [place] [address] Jun, [facility] [address] [place] [address] Jun, [facility] [address] [place] [address] Jun, Nausea and vomiting R11.2 [facility] [address] [place] [address] May, [facility] [address] [place] [address] May, Rash and other nonspecific skin eruption R21 [facility] [address] [place] [address] May, [facility] [address] [place] [address] May, [facility] [address] [place] [address] May, [facility] [address] [place] [address] May, [facility] [address] [place] [address] May, [facility] [place] [address] [place] [phone] May, Acquired immune deficiency syndrome B20 ; Screening examination for sexually transmitted disease Z11.3 ; Depression with anxiety F41.8 ; Other chronic pain G89.29 and Dermatitis L30.9 [facility] [address] [place] [address] May, [facility] [address] [place] [address] 14 May, 2015 [facility] [address] [place] [address] 09 May, 2015 [facility] [address] [place] [address] May, Backache M54.9 [facility] [address] [place] [address] May, Rash and other nonspecific skin eruption R21 [facility] [address] [place] [address] Apr, [facility] [address] [place] [address] Apr, [facility] [address] [place] [address] Apr, Other chronic pain G89.29 [facility] [address] [place] [address] Apr, [facility] [address] [place] [address] Apr, [facility] [address] [place] [address] Apr, [facility] [address] [place] [address] Apr, [facility] [address] [place] [address] Apr, [facility] [address] [place] [address] Apr, [facility] [address] [place] [address] Apr, [facility] [address] [place] [address] Apr, [facility] [address] [place] [address] Apr, [facility] [address] [place] [address] Apr, [facility] [address] [place] [address] Apr, Other chronic pain G89.29 ; Generalized anxiety disorder F41.1 ; Nausea R11.[address] 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 ; Bipolar affective disorder F31.9 ; Smoking F17.200 ; Generalized anxiety disorder F41.1 ; Influenza vaccine administered Z23 and AIDS B20 [address] [address] Mar, Other chronic pain G89.29 [facility] [address] [place] [address] Mar, Generalized anxiety disorder F41.[address] [address] Mar, [address] [address] Mar, Asymptomatic HIV infection Z21 [address] [address] Mar, Other chronic pain G89.29 [facility] [address] [place] [address] Feb, [facility] [address] [place] [address] Feb, [facility] [address] [place] [address] Feb, [facility] [address] [place] [address] Feb, [facility] [address] [place] [address] Feb, [facility] [address] [address] Jan, Other chronic pain G89.29 and Nausea & vomiting R11.[address] [address] Jan, Other chronic pain G89.[address] [address] Dec, [address] [address] Dec, Other chronic pain G89.29 ; Asymptomatic HIV infection Z21 ; Intrinsic asthma J45.909 ; Bipolar affective disorder F31.9 ; Noncompliance Z91.19 ; Migraine G43.909 ; Tobacco use disorder Z72.0 ; GERD (gastroesophageal reflux disease) K21.9 ; Backache M54.9 and Generalized anxiety disorder F41.[address] [address] Nov, [address] [address] Nov, [address] [address] Oct, Other chronic pain 338.[address] [address] Oct, [address] [address] Oct, Unspecified backache 724.5 and Dysphagia 787.[address] [address] Sep, Other chronic pain 338.[address] [address] Sep, [address] [address] Aug, URI (upper respiratory infection) 465.9 and Diarrhea 787.[address] [address] Aug, [address] [address] Aug, Other chronic pain 338.[address] [address] Aug, Other chronic pain 338.29 and Generalized anxiety disorder 300.[address] [address] Aug, [address] [address] July, Other chronic pain 338.29 [facility] [place] [address] [facility] [address] [place] [id number] July, Nondependent tobacco use disorder 305.1 ; Unspecified backache 724.5 ; Other chronic pain 338.29 ; Abdominal pain, unspecified site 789.00 ; custodial (current) use of opiate analgesic V58.69 and Acquired immune deficiency syndrome [address] [address] July, Other chronic pain 338.[address] [address] Jun, Other chronic pain 338.[address] [address] Jun, [address] [address] Jun, Other chronic pain 338.[address] [address] Jun, URI (upper respiratory infection) 465.[address] [address] Jun, Generalized anxiety disorder 300.02 and Seasonal allergies 477.[address] [address] Jun, Generalized anxiety disorder 300.[address] [address] May, Other chronic pain 338.[address] [address] May, Other chronic pain 338.29 and Generalized anxiety disorder 300.02 [facility] [address] [place] [address] 16 Apr, 2014 Asthma, intrinsic 493.10 and Acute upper respiratory infections of other multiple sites 465.8 [facility] [address] [place] [address] Apr, [facility] [address] [facility] [address] [place], [place] [id number] Apr, Depressive disorder 311 [facility] [address] [place] [address] Apr, Other chronic pain 338.[address] [address] Apr, [address] [address] Apr, Other chronic pain 338.[address] [address] Mar, Acute upper respiratory infections of unspecified site 465.9 [facility] [address] [place] [id number] Mar, Migraine 346.90 ; Nondependent tobacco use disorder 305.1 ; Esophageal reflux 530.81 ; Unspecified backache 724.5 ; Abdominal pain, generalized 789.07 ; Flatulence, eructation, and gas pain 787.3 ; Asymptomatic human immunodeficiency virus (HIV) infection status V08 ; Dyspepsia and other specified disorders of function of stomach 536.8 ; Nausea alone 787.02 and Asthma 493.[address] [address] Mar, Other chronic pain 338.[address] [address] Feb, Other chronic pain 338.29 and Generalized anxiety disorder 300.[address] [address] Feb, Abdominal pain, generalized 789.[address] [address] Jan, Abdominal pain, generalized 789.07 [facility] [address] [place] [id number] Dec, [facility] [address] [place] [address] Dec, [facility] [address] [place] [address] Dec, Unspecified backache 724.5 [facility] [address] [place] [address] Dec, [facility] [address] [place] [address] Nov, [facility] [address] [id number] Nov, [facility] [address] [place], [place] [id number] Nov, Bipolar disorder, unspecified 296.80 ; Abdominal pain, generalized 789.07 ; Generalized anxiety disorder 300.02 ; Nausea alone 787.02 ; Flu vaccine need V04.81 and Human immunodeficiency virus (HIV) disease 042 [facility] [address] [place] [address] Nov, [facility] [address] [id number] Oct, [facility] [address] [facility] [address] [place] [id number] Oct, [facility] [address] [id number] Aug, [facility] [address] [place] [address] Jun, [facility] [address] [place] [address] Mar, [facility] [address] [place] [address] Oct, [facility] [address] [place] [address] July, [facility] [address] [place] [address] Jun, [facility] [address] [place] [address] 08 May, 2012 [facility] [address] [place] [address] Mar, [facility] [address] [place] [address] Feb, [facility] [address] [place] [address] Nov, [facility] [address] [place] [address] Oct, [facility] [address] [place] [address] Aug, [facility] [address] [place] [address] May, [facility] [address] [place] [address] Mar, IMMUNIZATIONS No Known Immunizations SOCIAL HISTORY Never Assessed REASON FOR VISIT Re: RE:Re: RE:Re: RE:Re: RE:refill PLAN OF CARE VITAL SIGNS MEDICATIONS Unknown [...]
--- OUTSIDE RECORDS SUMMARY | 2018-03-22 13:54 | XMS REPORT ---
Author Author Dulce Herrera [facility] Address [address] [place], [place] [id number] Care Team Providers Care Teaching Dietitian Name Role Phone Dulce Herrera Unavailable PROBLEMS Type Condition ICD9-CM Code KUI87-ML Code Onset Dates Condition Status SNOMED Code Problem Bipolar affective disorder F31.9 Active 37019722 Problem Nicotine dependence, cigarettes, uncomplicated F17.210 Active 99841454 Problem nursing home (current) use of opiate analgesic Z79.891 Active 583834514 Problem Non-intractable cyclical vomiting with nausea G43.A0 Active 70357341 Problem Poor appetite R63.0 Active 64641615 Problem Wheezing on auscultation R06.2 Active 589555499 Problem Acquired immune deficiency syndrome B20 Active 03038331 Problem Other chronic pain G89.29 Active 37947754 Problem Mood swings F39 Active 85990337 Problem Generalized anxiety disorder F41.1 Active 17161110 Problem GERD (gastroesophageal reflux disease) K21.9 Active 450778173 Problem Mixed hyperlipidemia E78.2 Active 322790497 Problem Intrinsic asthma J45.909 Active 980242027 Problem Migraine G43.909 Active 37554052 Problem Backache M54.9 Active 977143229 ALLERGIES No Information ENCOUNTERS Encounter Location Date Diagnosis [facility] [address] [facility] [address] [place] [id number] Nov, [facility] [address] [place] [address] Oct, [facility] [address] [place] [address] Oct, Backache M54.9 [facility] [address] [place] [address] Oct, [facility] [address] [place] [address] Oct, [facility] [address] [place] [address] Oct, [facility] [address] [place] [address] Oct, [facility] [address] [place] [facility] [place] [address] Oct, Upper respiratory infection J06.9 and Backache M54.9 [facility] [address] [place] [address] Oct, Generalized anxiety disorder F41.1 and Backache M54.9 [facility] [address] [place] [facility] [place] [address] Sep, Acquired immune deficiency syndrome B20 [facility] [address] [place] [address] Sep, [facility] [address] [place] [id number] Sep, Acquired immune deficiency syndrome B20 ; Intrinsic asthma J45.909 and Open wound T14.8XXA [facility] [address] [place] [address] Sep, [facility] [address] [place] [address] Sep, [facility] [address] [place] [address] Sep, [facility] [address] [place] [address] Sep, Poor appetite R63.0 [facility] [address] [place] [address] Sep, Backache M54.9 [facility] [address] [place] [address] Sep, [facility] [address] [place] [address] Aug, Generalized anxiety disorder F41.1 [facility] [address] [place] [address] Aug, [facility] [address] [place] [address] Aug, Backache M54.9 [facility] [address] [place] [facility] [place] [address] Aug, [facility] [address] [place] [facility] [place] [address] Aug, Spider bite T63.301A [facility] [address] [place] [facility] [place] [address] Aug, [facility] [address] [place] [facility] [place] [address] Aug, [facility] [address] [place] [facility] [place] [address] Aug, [facility] [address] [place] [facility] [place] [address] July, [facility] [address] [place] [facility] [place] [address] July, [facility] [address] [place] [facility] [place] [address] July, [facility] [address] [place] [facility] [place] [address] July, [facility] [address] [place] [facility] [place] [address] July, [facility] [address] [place] [facility] [place] [address] July, Poor appetite R63.0 and Backache M54.9 [facility] [address] [place] [address] July, [facility] [address] [place] [facility] [place] [address] July, [facility] [address] [place] [facility] [place] [address] July, [facility] [address] [place] [facility] [place] [address] July, [facility] [address] [place] [facility] [place] [address] July, [facility] [address] [place] [facility] [place] [address] July, Nausea and vomiting R11.2 [facility] [address] [place] [facility] [place] [address] July, [facility] [address] [place] [facility] [place] [address] July, [facility] [address] [place] [facility] [place] [address] July, [facility] [address] [place] [facility] [place] [address] July, [facility] [address] [place] [facility] [place] [address] July, [facility] [address] [place] [facility] [place] [address] July, Other chronic pain G89.29 [facility] [address] [place] [facility] [place] [address] July, [facility] [address] [place] [facility] [place] [address] July, GERD (gastroesophageal reflux disease) K21.9 [facility] [address] [place] [facility] [place] [address] July, [facility] [address] [place] [facility] [place] [address] Jun, [facility] [address] [place] [facility] [place] [address] Jun, [facility] [address] [place] [facility] [place] [address] Jun, [facility] [address] [place] [facility] [place] [address] Jun, [facility] [address] [place] [facility] [place] [address] Jun, Other chronic pain G89.29 [facility] [address] [place] [facility] [place] [address] Jun, [facility] [address] [place] [facility] [place] [address] Jun, [facility] [address] [place] [facility] [place] [address] Jun, [facility] [address] [place] [facility] [place] [address] Jun, [address] [address] Jun, [address] [address] Jun, Generalized anxiety disorder F41.1 ; Other chronic pain G89.29 and Non-intractable cyclical vomiting with nausea G43.A0 [facility] [address] [id number] Jun, Acquired immune deficiency syndrome B20 ; 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 ; Nicotine dependence, cigarettes, uncomplicated F17.210 ; Lower respiratory infection J22 ; Poor appetite R63.0 ; Other chronic pain G89.29 ; Generalized anxiety disorder F41.1 and Need for tetanus booster Z23 [address] [address] Jun, [address] [address] May, Generalized abdominal pain R10.[address] [address] May, [address] [address] Apr, AIDS B20 ; Generalized abdominal pain R10.84 and Dysmenorrhea N94.[address] [address] Apr, Acute URI J06.[address] [address] Apr, [address] [address] Apr, [address] [id number] Apr, Acquired immune deficiency syndrome B20 ; nursing home ( current) use of opiate analgesic Z79.891 and Migraine G43.[address] [address] Mar, Dysmenorrhea N94.[address] [place] [address] Mar, [facility] [address] [place] [facility] [place] [address] Mar, Generalized anxiety disorder F41.1 and Generalized abdominal pain R10.84 [facility] [address] [place] [facility] [place] [address] Mar, [facility] [address] [place] [facility] [place] [address] Mar, Generalized abdominal pain R10.84 and Generalized anxiety disorder F41.1 [facility] [address] [place] [facility] [place] [address] Feb, [facility] [address] [place] [facility] [place] [address] Feb, Generalized abdominal pain R10.84 [facility] [address] [place] [facility] [place] [address] Jan, Nausea and vomiting R11.2 [facility] [address] [place] [address] Jan, [facility] [address] [place] [address] Jan, [facility] [address] [place] [facility] [place] [address] Jan, [facility] [address] [place] [facility] [place] [address] Jan, [facility] [address] [place] [facility] [place] [address] Jan, [facility] [address] [place] [facility] [place] [address] Jan, Mood swings F39 [facility] [address] [place] [facility] [place] [address] Jan, [facility] [address] [place] [facility] [place] [address] Jan, [facility] [address] [place] [facility] [place] [address] Jan, [facility] [address] [place] [facility] [place] [address] Jan, Dysmenorrhea N94.6 [facility] [address] [place] [phone] Jan, Acquired immune deficiency syndrome B20 ; Generalized abdominal pain R10.84 and Refused influenza vaccine Z28.[address] [address] Jan, [address] [address] Dec, Generalized abdominal pain R10.[address] [address] Dec, Dysmenorrhea N94.[address] [address] Dec, Backache M54.[address] [address] Nov, Generalized abdominal pain R10.[address] [address] Nov, Generalized anxiety disorder F41.[address] [address] Nov, Dysmenorrhea N94.[address] [address] Oct, [address] [address] Oct, [address] [address] Oct, [address] [address] Oct, Generalized abdominal pain R10.84 [facility] [address] [place] [id number] Oct, Acquired immune deficiency syndrome B20 ; 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 ; Bipolar affective disorder F31.9 ; Generalized anxiety disorder F41.1 ; Backache M54.9 ; Mixed hyperlipidemia E78.2 ; Nicotine dependence, cigarettes, uncomplicated F17.210 and Wheezing on auscultation R06.[address] [place] [address] Oct, Oral candidiasis B37.0 [facility] [address] [place] [facility] [place] [address] Oct, [facility] [address] [place] [facility] [place] [address] Oct, Acute upper respiratory infection J06.9 [facility] [address] [place] [facility] [place] [address] Oct, Acute upper respiratory infection J06.9 [facility] [address] [place] [facility] [place] [address] Sep, Dysmenorrhea N94.6 [facility] [address] [place] [facility] [place] [address] Sep, Generalized anxiety disorder F41.1 [facility] [address] [place] [facility] [place] [address] Sep, Dysmenorrhea N94.6 [facility] [address] [place] [facility] [place] [address] Sep, [facility] [address] [place] [facility] [place] [address] Sep, Dysmenorrhea N94.6 [facility] [address] [place] [facility] [place] [address] Aug, Acquired immune deficiency syndrome B20 [facility] [address] [place] [facility] [place] [address] Aug, Generalized anxiety disorder F41.1 [facility] [address] [place] [facility] [place] [address] Aug, [facility] [address] [place] [facility] [place] [address] Aug, [facility] [address] [place] [facility] [place] [address] Aug, [facility] [address] [place] [facility] [place] [address] Aug, [facility] [address] [place] [facility] [place] [address] Aug, [facility] [address] [place] [address] 08 Aug, [address] [address] Aug, [address] [address] Aug, Acute opioid withdrawal F11.[address] [address] July, Upper respiratory infection J06.[address] [address] July, Backache M54.[address] [facility] [address] [place] [id number] July, Acquired immune deficiency syndrome B20 ; nursing home 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 Z79.891 ; Hyperglycemia R73.9 ; Bipolar affective disorder F31.9 ; GERD (gastroesophageal reflux disease) K21.9 ; Backache M54.9 ; Generalized anxiety disorder F41.1 ; Mixed hyperlipidemia E78.2 ; Nicotine dependence, cigarettes, uncomplicated F17.210 and Localized edema R60.[address] [address] July, [address] [address] Jun, Backache M54.[address] [address] Jun, Chronic pain G89.[address] [address] May, Backache M54.[address] [address] May, Backache M54.[address] [address] Apr, Cough R[address] [facility] [address] [place] [id number] [phone] Apr, 2016 Acquired immune deficiency syndrome B20 ; Screening examination for sexually transmitted disease Z11.3 ; Dermatitis L30.9 and Migraine with aura and with status migrainosus, not intractable G43.101 [facility] [address] [place] [address] Apr, Backache M54.9 [facility] [address] [place] [address] Mar, Intrinsic asthma J45.909 ; Nausea and vomiting R11.2 and AIDS B20 [facility] [address] [place] [address] Mar, Backache M54.9 [facility] [address] [place] [address] Feb, Chronic pain G89.[address] [address] Feb, Backache M54.[address] [address] Jan, [place] [facility], 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 [address] Jan, Asthma, intrinsic 493.[address] [address] Jan, [address] [address] Jan, [address] [address] Jan, Backache M54.[address] [address] Dec, Chronic pain G89.[address] [facility] [address] [place] [id number] Dec, AIDS B20 ; Influenza vaccine needed Z23 ; Intrinsic asthma J45.909 ; Backache M54.9 ; Generalized anxiety disorder F41.1 ; Nicotine dependence, cigarettes, uncomplicated F17.210 and Mixed hyperlipidemia E78.[address] [address] Dec, [address] [address] Dec, Dysmenorrhea N94.6 [facility] [address] [place] [address] Dec, [facility] [address] [place] [address] 17 Dec, 2015 Depression with anxiety F41.8 and Backache M54.9 [facility] [address] [place] [address] 19 Nov, 2015 [facility] [address] [place] [address] 19 Nov, 2015 Other chronic pain G89.29 [facility] [address] [place] [address] 18 Nov, 2015 Other chronic pain G89.29 [facility] [address] [place] [address] 18 Nov, 2015 [facility] [address] [place] [address] 14 Nov, 2015 Generalized anxiety disorder F41.1 [facility] [address] [place] [address] 06 Nov, 2015 [facility] [address] [place] [address] Nov, [facility] [address] [place] [address] Nov, Chronic pain G89.29 [facility] [address] [place] [address] Oct, [facility] [address] [place] [address] Oct, Other chronic pain G89.29 [facility] [address] [place] [address] Oct, [facility] [address] [place] [address] Oct, [facility] [address] [place] [address] Oct, Nausea and vomiting R11.2 [facility] [address] [place] [address] Oct, Chronic pain G89.29 [facility] [address] [place] [address] Sep, [facility] [address] [place] [address] Sep, Acute upper respiratory infection, unspecified J06.9 [facility] [address] [place] [address] Sep, Upper respiratory infection J06.9 [facility] [address] [place] [address] Sep, [facility] [address] [place] [address] Sep, [facility] [address] [place] [address] Sep, Other chronic pain G89.29 [facility] [address] [place] [id number] Sep, AIDS B20 ; 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 ; Smoking F17.200 ; Mixed hyperlipidemia E78.2 ; Chronic pain G89.29 and Edema R60.9 [facility] [address] [place] [address] Sep, [facility] [address] [place] [address] Sep, [facility] [address] [place] [address] Aug, [facility] [address] [place] [address] Aug, Other chronic pain G89.29 [facility] [address] [place] [address] Aug, Generalized anxiety disorder F41.1 [facility] [address] [place] [address] July, Other chronic pain G89.29 [facility] [address] [place] [address] July, Other chronic pain G89.29 [facility] [address] [place] [address] July, [facility] [address] [place] [facility] [place] [address] Jun, Generalized anxiety disorder F41.1 [facility] [address] [place] [facility] [place] [address] Jun, [facility] [address] [place] [facility] [place] [address] Jun, Other chronic pain G89.29 [facility] [address] [place] [facility] [place] [address] Jun, Rash and other nonspecific skin eruption R21 [facility] [address] [place] [facility] [place] [address] Jun, [facility] [address] [place] [facility] [place] [address] Jun, [facility] [address] [place] [facility] [place] [address] Jun, [facility] [address] [place] [facility] [place] [address] Jun, [facility] [address] [place] [facility] [place] [address] Jun, [facility] [address] [place] [facility] [place] [address] Jun, [facility] [address] [place] [facility] [place] [address] Jun, [facility] [address] [place] [facility] [place] [address] Jun, Other chronic pain G89.29 [facility] [address] [place] [facility] [place] [address] Jun, [facility] [address] [place] [facility] [place] [address] Jun, [facility] [address] [facility] [place] [address] Jun, [facility] [address] [place] [facility] [place] [address] Jun, [facility] [address] [place] [facility] [place] [address] Jun, [facility] [address] [place] [facility] [place] [address] Jun, [facility] [address] [place] [facility] [place] [address] Jun, [facility] [address] [place] [facility] [place] [address] Jun, [facility] [address] [place] [facility] [place] [address] Jun, [facility] [address] [place] [facility] [place] [address] Jun, Nausea and vomiting R11.2 [facility] [address] [place] [address] May, [facility] [address] [place] [address] May, Rash and other nonspecific skin eruption R21 [facility] [address] [place] [address] May, [facility] [address] [place] [address] May, [facility] [address] [place] [address] May, [facility] [address] [place] [address] May, [facility] [address] [place] [address] May, [facility] [address] [place] [phone] May, Acquired immune deficiency syndrome B20 ; Screening examination for sexually transmitted disease Z11.3 ; Depression with anxiety F41.8 ; Other chronic pain G89.29 and Dermatitis L30.9 [facility] [address] [place] [address] May, [facility] [address] [place] [address] 14 May, 2015 [facility] [address] [place] [address] 09 May, 2015 [facility] [address] [place] [address] May, Backache M54.9 [facility] [address] [place] [address] May, Rash and other nonspecific skin eruption R21 [facility] [address] [place] [facility] [place] [address] Apr, [facility] [address] [place] [address] Apr, [facility] [address] [place] [address] Apr, Other chronic pain G89.29 [facility] [address] [place] [address] Apr, [facility] [address] [place] [address] Apr, [facility] [address] [place] [address] Apr, [facility] [address] [place] [address] Apr, [facility] [address] [place] [address] Apr, [facility] [address] [place] [address] Apr, [facility] [address] [place] [address] Apr, [facility] [address] [place] [address] Apr, [facility] [address] [place] [address] Apr, [facility] [address] [place] [address] Apr, [facility] [address] [place] [address] Apr, Other chronic pain G89.29 ; Generalized anxiety disorder F41.1 ; Nausea R11.0 and AIDS B20 [facility] [address] [place] [address] Apr, [facility] [address] [place] [address] Apr, Generalized anxiety disorder F41.1 [facility] [address] [place] [address] Apr, [facility] [address] [place] [address] Apr, Other chronic pain G89.29 [facility] [address] [place] [address] Mar, 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 ; Bipolar affective disorder F31.9 ; Smoking F17.200 ; Generalized anxiety disorder F41.1 ; Influenza vaccine administered Z23 and AIDS B20 [address] [address] Mar, Other chronic pain G89.29 [facility] [address] [place] [address] Mar, Generalized anxiety disorder F41.[address] [address] Mar, [address] [address] Mar, Asymptomatic HIV infection Z21 [address] [address] Mar, Other chronic pain G89.29 [facility] [address] [place] [address] Feb, [facility] [address] [place] [address] Feb, [facility] [address] [place] [address] Feb, [facility] [address] [place] [address] Feb, [facility] [address] [place] [address] Feb, [facility] [address] [address] Jan, Other chronic pain G89.29 and Nausea & vomiting R11.[address] [address] Jan, Other chronic pain G89.[address] [address] Dec, [address] [address] Dec, Other chronic pain G89.29 ; Asymptomatic HIV infection Z21 ; Intrinsic asthma J45.909 ; Bipolar affective disorder F31.9 ; Noncompliance Z91.19 ; Migraine G43.909 ; Tobacco use disorder Z72.0 ; GERD (gastroesophageal reflux disease) K21.9 ; Backache M54.9 and Generalized anxiety disorder F41.[address] [address] Nov, [address] [address] Nov, [address] [address] Oct, Other chronic pain 338.[address] [address] Oct, [address] [address] Oct, Unspecified backache 724.5 and Dysphagia 787.[address] [address] Sep, Other chronic pain 338.[address] [address] Sep, [address] [address] Aug, URI (upper respiratory infection) 465.9 and Diarrhea 787.[address] [address] Aug, [address] [address] Aug, Other chronic pain 338.[address] [address] Aug, Other chronic pain 338.29 and Generalized anxiety disorder 300.[address] [address] Aug, [address] [address] July, Other chronic pain 338.29 [facility] [address] [facility] [address] [place] [id number] July, Nondependent tobacco use disorder 305.1 ; Unspecified backache 724.5 ; Other chronic pain 338.29 ; Abdominal pain, unspecified site 789.00 ; nursing home (current) use of opiate analgesic V58.69 and Acquired immune deficiency syndrome [address] [address] July, Other chronic pain 338.[address] [address] Jun, Other chronic pain 338.[address] [address] Jun, [address] [address] Jun, Other chronic pain 338.[address] [address] Jun, URI (upper respiratory infection) 465.[address] [address] Jun, Generalized anxiety disorder 300.02 and Seasonal allergies 477.[address] [address] Jun, Generalized anxiety disorder 300.[address] [address] May, Other chronic pain 338.[address] [address] May, Other chronic pain 338.29 and Generalized anxiety disorder 300.02 [facility] [address] [place] [address] 16 Apr, 2014 Asthma, intrinsic 493.10 and Acute upper respiratory infections of other multiple sites 465.8 [facility] [address] [place] [address] Apr, [facility] [address] [facility] [address] [place], [place] [id number] Apr, Depressive disorder 311 [facility] [address] [place] [address] Apr, Other chronic pain 338.[address] [address] Apr, [address] [address] Apr, Other chronic pain 338.[address] [address] Mar, Acute upper respiratory infections of unspecified site 465.9 [facility] [address] [place] [id number] Mar, Migraine 346.90 ; Nondependent tobacco use disorder 305.1 ; Esophageal reflux 530.81 ; Unspecified backache 724.5 ; Abdominal pain, generalized 789.07 ; Flatulence, eructation, and gas pain 787.3 ; Asymptomatic human immunodeficiency virus (HIV) infection status V08 ; Dyspepsia and other specified disorders of function of stomach 536.8 ; Nausea alone 787.02 and Asthma 493.[address] [address] Mar, Other chronic pain 338.[address] [address] Feb, Other chronic pain 338.29 and Generalized anxiety disorder 300.[address] [address] Feb, Abdominal pain, generalized 789.[address] [address] Jan, Abdominal pain, generalized 789.07 [facility] [address] [place], [place] [id number] Dec, [facility] [address] [place] [address] Dec, [facility] [address] [place] [address] Dec, Unspecified backache 724.5 [facility] [address] [place] [address] Dec, [facility] [address] [place] [address] Nov, [facility] [address] [id number] Nov, [facility] [address] [place] [id number] Nov, Bipolar disorder, unspecified 296.80 ; Abdominal pain, generalized 789.07 ; Generalized anxiety disorder 300.02 ; Nausea alone 787.02 ; Flu vaccine need V04.81 and Human immunodeficiency virus (HIV) disease 042 [facility] [address] [place] [address] Nov, [facility] [address] [id number] Oct, [facility] [address] [facility] [address] [place] [id number] Oct, [facility] [address] [id number] Aug, [facility] [address] [place] [address] Jun, [facility] [address] [place] [address] Mar, [facility] [address] [place] [address] Oct, [facility] [address] [place] [address] July, [facility] [address] [place] [address] Jun, [facility] [address] [facility] [place] [address] May, [facility] [address] [facility] [place] [address] Mar, [facility] [address] [facility] [place] [address] Feb, [facility] [address] [facility] [place] [address] Nov, [facility] [address] [facility] [place] [address] Oct, [facility] [address] [facility] [place] [address] Aug, [facility] [address] [facility] [place] [address] May, [facility] [address] [facility] [place] [address] Mar, IMMUNIZATIONS No Known Immunizations SOCIAL HISTORY [...]
--- OUTSIDE RECORDS SUMMARY | 2018-03-22 13:55 | XMS REPORT ---
Author Author Dulce Herrera [facility] Address [address], [place] [id number] Care Team Providers Care Bullet Slugs Inspector Name Role Phone Dulce Herrera Unavailable PROBLEMS Type Condition ICD9-CM Code [id number] Code Onset Dates Condition Status SNOMED Code Problem Bipolar affective disorder F31.9 Active 18448543 Problem Nicotine dependence, cigarettes, uncomplicated F17.210 Active 61717973 Problem retirement (current) use of opiate analgesic Z79.891 Active 767233585 Problem Non-intractable cyclical vomiting with nausea G43.A0 Active 64950619 Problem Poor appetite R63.0 Active 36876173 Problem Wheezing on auscultation R06.2 Active 409376012 Problem Acquired immune deficiency syndrome B20 Active 26385747 Problem Other chronic pain G89.29 Active 44805337 Problem Mood swings F39 Active 44901699 Problem Generalized anxiety disorder F41.1 Active 69550551 Problem GERD (gastroesophageal reflux disease) K21.9 Active 645235797 Problem Mixed hyperlipidemia E78.2 Active 911115081 Problem Intrinsic asthma J45.909 Active 210573607 Problem Migraine G43.909 Active 02171829 Problem Backache M54.9 Active 504599656 ALLERGIES No Information ENCOUNTERS Encounter Location Date Diagnosis [facility] [address] [place], [place] [id number] Nov, [facility] [address] [place] [address] Oct, [facility] [address] [place] [address] Oct, [facility] [address] [place] [address] Oct, [facility] [address] [place] [address] Oct, [facility] [address] [place] [address] Oct, Upper respiratory infection J06.9 and Backache M54.9 [facility] [address] [place] [address] Oct, Generalized anxiety disorder F41.1 and Backache M54.9 [facility] [address] [place] [address] Sep, Acquired immune deficiency syndrome B20 [facility] [address] [place] [address] Sep, [facility] [address] [place], [place] [id number] Sep, Acquired immune deficiency syndrome B20 ; Intrinsic asthma J45.909 and Open wound T14.8XXA [facility] [address] [place] [address] Sep, [facility] [address] [place] [address] Sep, [facility] [address] [place] [address] Sep, [facility] [address] [place] [address] Sep, Poor appetite R63.0 [facility] [address] [place] [address] Sep, Backache M54.9 [facility] [address] [place] [address] Sep, [facility] [address] [place] [address] Aug, Generalized anxiety disorder F41.1 [facility] [address] [place] [address] Aug, [facility] [address] [place] [address] Aug, Backache M54.9 [facility] [address] [place] [address] Aug, [facility] [address] [place] [address] Aug, Spider bite T63.301A [facility] [address] [place] [facility] [place] [address] Aug, [facility] [address] [place] [facility] [place] [address] Aug, [facility] [address] [place] [facility] [place] [address] Aug, [facility] [address] [place] [facility] [place] [address] July, [facility] [address] [place] [facility] [place] [address] July, [facility] [address] [place] [facility] [place] [facility] [place] [address] July, [facility] [address] [place] [facility] [place] [address] July, [facility] [address] [place] [facility] [place] [address] July, [facility] [address] [place] [facility] [place] [address] July, Poor appetite R63.0 and Backache M54.9 [facility] [address] [place] [facility] [place] [address] July, [facility] [address] [place] [facility] [place] [address] July, [facility] [address] [place] [facility] [place] [address] July, [facility] [address] [place] [facility] [place] [address] July, [facility] [address] [place] [facility] [place] [facility] [place] [address] July, [facility] [address] [place] [facility] [place] [address] July, Nausea and vomiting R11.2 [facility] [address] [place] [facility] [place] [address] July, [facility] [address] [place] [facility] [place] [facility] [place] [address] July, [facility] [address] [place] [facility] [place] [address] July, [facility] [address] [place] [facility] [place] [address] July, [facility] [address] [place] [facility] [place] [facility] [place] [address] July, [facility] [address] [place] [facility] [place] [address] July, Other chronic pain G89.29 [facility] [address] [place] [facility] [place] [facility] [place] [address] July, [facility] [address] [place] [facility] [place] [facility] [place] [address] July, GERD (gastroesophageal reflux disease) K21.9 [facility] [address] [place] [facility] [place] [facility] [place] [address] July, [facility] [address] [place] [facility] [place] [facility] [place] [address] Jun, [facility] [address] [place] [facility] [place] [address] Jun, [facility] [address] [place] [facility] [place] [facility] [place] [address] Jun, [facility] [address] [place] [facility] [place] [facility] [place] [address] Jun, [facility] [address] [place] [facility] [place] [facility] [place] [address] Jun, Other chronic pain G89.29 [facility] [address] [place] [facility] [place] [facility] [place] [address] Jun, [facility] [address] [place] [facility] [place] [facility] [place] [address] Jun, [facility] [address] [place] [facility] [place] [facility] [place] [address] Jun, [facility] [address] [place] [facility] [place] [facility] [place] [address] Jun, [facility] [address] [place] [facility] [place] [facility] [place] [address] Jun, [facility] [address] [place] [facility] [place] [facility] [place] [address] Jun, Generalized anxiety disorder F41.1 ; Other chronic pain G89.29 and Non-intractable cyclical vomiting with nausea G43.A0 [facility] [address] [place], [place] [id number] Jun, Acquired immune deficiency syndrome B20 ; retirement ( current) use of opiate analgesic Z79.891 ; Nicotine dependence, cigarettes, uncomplicated F17.210 ; Lower respiratory infection J22 ; Poor appetite R63.0 ; Other chronic pain G89.29 ; Generalized anxiety disorder F41.1 and Need for tetanus booster Z23 [address] [address] Jun, [address] [address] May, Generalized abdominal pain R10.[address] [address] May, [address] [address] Apr, AIDS B20 ; Generalized abdominal pain R10.84 and Dysmenorrhea N94.[address] [address] Apr, Acute URI J06.[address] [address] Apr, [address] [address] Apr, [address] [id number] Apr, Acquired immune deficiency syndrome B20 ; 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 and Migraine G43.[address] [address] Mar, Dysmenorrhea N94.[address] [address] Mar, [address] [address] Mar, Generalized anxiety disorder F41.1 and Generalized abdominal pain R10.84 [facility] [address] [place] [address] Mar, [facility] [address] [place] [address] Mar, Generalized abdominal pain R10.84 and Generalized anxiety disorder F41.1 [facility] [address] [place] [address] Feb, [facility] [address] [place] [address] Feb, Generalized abdominal pain R10.84 [facility] [address] [place] [address] Jan, Nausea and vomiting R11.2 [facility] [address] [place] [address], [place] [address] 18 Jan, 2017 [facility] [address] [place] [address] 16 Jan, 2017 [facility] [address] [place] [address] Jan, [facility] [address] [place] [address] Jan, [facility] [address] [place] [address] Jan, [facility] [address] [place] [address] Jan, Mood swings F39 [facility] [address] [place] [address] Jan, [facility] [address] [place] [address] Jan, [facility] [address] [place] [address] Jan, [facility] [address] [place] [address] Jan, Dysmenorrhea N94.6 [facility] [address] [place] [phone] Jan, Acquired immune deficiency syndrome B20 ; Generalized abdominal pain R10.84 and Refused influenza vaccine Z28.21 [facility] [address] [place] [address] Jan, [facility] [address] [place] [address] Dec, Generalized abdominal pain R10.84 [facility] [address] [place] [address] Dec, Dysmenorrhea N94.[address] [address] Dec, Backache M54.[address] [address] Nov, Generalized abdominal pain R10.[address] [address] Nov, Generalized anxiety disorder F41.[address] [address] Nov, Dysmenorrhea N94.[address] [address] Oct, [address] [address] Oct, [address] [address] Oct, [address] [address] Oct, Generalized abdominal pain R10.84 [facility] [address] [place], [place] [id number] Oct, Acquired immune deficiency syndrome B20 ; retirement 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 Z79.891 ; Bipolar affective disorder F31.9 ; Generalized anxiety disorder F41.1 ; Backache M54.9 ; Mixed hyperlipidemia E78.2 ; Nicotine dependence, cigarettes, uncomplicated F17.210 and Wheezing on auscultation R06.[address] [address] Oct, Oral candidiasis B37.[address] [address] Oct, [address] [place] [address] Oct, Acute upper respiratory infection J06.9 [facility] [address] [facility] [place] [address] Oct, Acute upper respiratory infection J06.9 [facility] [address] [place] [facility] [place] [address] Sep, Dysmenorrhea N94.6 [facility] [address] [place] [facility] [place] [address] Sep, Generalized anxiety disorder F41.1 [facility] [address] [place] [facility] [place] [address] Sep, Dysmenorrhea N94.6 [facility] [address] [place] [facility] [place] [address] Sep, [facility] [address] [place] [facility] [place] [address] Sep, Dysmenorrhea N94.6 [facility] [address] [place] [facility] [place] [address] Aug, Acquired immune deficiency syndrome B20 [facility] [address] [place] [facility] [place] [address] Aug, Generalized anxiety disorder F41.1 [facility] [address] [place] [facility] [place] [address] Aug, [facility] [address] [place] [address] Aug, [facility] [address] [place] [facility] [place] [address] Aug, [facility] [address] [place] [facility] [address] Aug, [facility] [address] [place] [facility] [address] Aug, [facility] [address] [place] [address] Aug, [facility] [address] [place] [address] Aug, [facility] [address] [place] [address] Aug, Acute opioid withdrawal F11.[address] [address] July, Upper respiratory infection J06.[address] [address] July, Backache M54.9 [facility] [address] [place] [phone] July, Acquired immune deficiency syndrome B20 ; 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 ; Hyperglycemia R73.9 ; Bipolar affective disorder F31.9 ; GERD (gastroesophageal reflux disease) K21.9 ; Backache M54.9 ; Generalized anxiety disorder F41.1 ; Mixed hyperlipidemia E78.2 ; Nicotine dependence, cigarettes, uncomplicated F17.210 and Localized edema R60.[address] [address] July, [address] [address] Jun, Backache M54.[address] [address] Jun, Chronic pain G89.[address] [address] May, Backache M54.[address] [address] May, Backache M54.[address] [address] Apr, Cough R05 [facility] [address] [id number] Apr, Acquired immune deficiency syndrome B20 ; Screening examination for sexually transmitted disease Z11.3 ; Dermatitis L30.9 and Migraine with aura and with status migrainosus, not intractable G43.[address] [address] Apr, Backache M54.[address] [address] Mar, Intrinsic asthma J45.909 ; Nausea and vomiting R11.2 and AIDS B20 [address] [address] Mar, Backache M54.[address] [address] Feb, Chronic pain G89.[address] [address] Feb, Backache M54.[address] [address] Jan, [place] eye, 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 [address] Jan, Asthma, intrinsic 493.[address] [address] Jan, [address] [address] Jan, [address] [address] Jan, Backache M54.[address] [address] Dec, Chronic pain G89.29 [facility] [address] [place], [place] [id number] Dec, AIDS B20 ; Influenza vaccine needed Z23 ; Intrinsic asthma J45.909 ; Backache M54.9 ; Generalized anxiety disorder F41.1 ; Nicotine dependence, cigarettes, uncomplicated F17.210 and Mixed hyperlipidemia E78.[address] [address] Dec, [address] [address] Dec, Dysmenorrhea N94.[address] [address] Dec, [address] [address] Dec, Depression with anxiety F41.8 and Backache M54.9 [facility] [address] [place] [address] Nov, [facility] [address] [place] [address] Nov, Other chronic pain G89.29 [facility] [address] [place] [address] 18 Nov, 2015 Other chronic pain G89.29 [facility] [address] [place] [address] 18 Nov, 2015 [facility] [address] [place] [address] 14 Nov, 2015 Generalized anxiety disorder F41.1 [facility] [address] [place] [address] Nov, [facility] [address] [place] [address] Nov, [facility] [address] [place] [address] Nov, Chronic pain G89.29 [facility] [address] [place] [address] Oct, [facility] [address] [place] [address] Oct, Other chronic pain G89.29 [facility] [address] [place] [address] Oct, [facility] [address] [place] [address] Oct, [facility] [address] [place] [address] Oct, Nausea and vomiting R11.2 [facility] [address] [place] [address] Oct, Chronic pain G89.29 [facility] [address] [place] [address] Sep, [facility] [address] [place] [address] Sep, Acute upper respiratory infection, unspecified J06.9 [facility] [address] [place] [address] Sep, Upper respiratory infection J06.9 [facility] [address] [place] [address] Sep, [facility] [address] [place] [address] Sep, [facility] [address] [place] [address] Sep, Other chronic pain G89.29 [facility] [address] [facility] [place] [id number] Sep, AIDS B20 ; retirement (current) use of opiate analgesic Z79.891 ; Smoking F17.200 ; Mixed hyperlipidemia E78.2 ; Chronic pain G89.29 and Edema R60.9 [facility] [address] [place] [address] Sep, [facility] [address] [place] [address] Sep, [facility] [address] [place] [address] Aug, [facility] [address] [place] [address] Aug, Other chronic pain G89.29 [facility] [address] [place] [address] Aug, Generalized anxiety disorder F41.1 [facility] [address] [place] [address] July, Other chronic pain G89.29 [facility] [address] [place] [address] July, Other chronic pain G89.29 [facility] [address] [place] [address] July, [facility] [address] [place] [address] Jun, Generalized anxiety disorder F41.1 [facility] [address] [place] [address] Jun, [facility] [address] [place] [facility] [place] [address] Jun, Other chronic pain G89.29 [facility] [address] [place] [facility] [place] [facility] [place] [address] Jun, Rash and other nonspecific skin eruption R21 [facility] [address] [place] [facility] [place] [facility] [place] [address] Jun, [facility] [address] [place] [facility] [place] [facility] [place] [address] Jun, [facility] [address] [place] [facility] [place] [facility] [place] [address] Jun, [facility] [address] [place] [facility] [place] [facility] [place] [address] Jun, [facility] [address] [place] [facility] [place] [facility] [place] [address] Jun, [facility] [address] [place] [facility] [place] [facility] [place] [address] Jun, [facility] [address] [place] [facility] [place] [address] Jun, [facility] [address] [place] [facility] [place] [address] Jun, Other chronic pain G89.29 [facility] [address] [place] [facility] [place] [facility] [place] [address] Jun, [facility] [address] [place] [facility] [place] [address] Jun, [facility] [address] [place] [facility] [place] [facility] [place] [address] Jun, [facility] [address] [place] [facility] [place] [facility] [place] [address] Jun, [facility] [address] [place] [facility] [place] [facility] [place] [address] Jun, [facility] [address] [place] [facility] [place] [address] Jun, [facility] [address] [place] [facility] [place] [facility] [place] [address] Jun, [facility] [address] [facility] [place] [address] Jun, [facility] [address] [place] [address] Jun, [facility] [address] [place] [address] Jun, Nausea and vomiting R11.2 [facility] [address] [place] [address] May, [facility] [address] [place] [address] May, Rash and other nonspecific skin eruption R21 [facility] [address] [place] [address] May, [facility] [address] [place] [address] May, [facility] [address] [place] [address] May, [facility] [address] [place] [address] May, [facility] [address] [place] [address] May, [facility] [address] [place], [place] [id number] May, Acquired immune deficiency syndrome B20 ; Screening examination for sexually transmitted disease Z11.3 ; Depression with anxiety F41.8 ; Other chronic pain G89.29 and Dermatitis L30.9 [facility] [address] [place] [address] May, [facility] [address] [place] [address] 14 May, 2015 [facility] [address] [place] [address] May, [facility] [address] [place] [address] 09 May, 2015 Backache M54.9 [facility] [address] [place] [address] May, Rash and other nonspecific skin eruption R21 [facility] [address] [place] [address], [place] [address] Apr, [facility] [address] [place] [facility] [place] [address] Apr, [facility] [address] [place] [facility] [place] [address] Apr, Other chronic pain G89.29 [facility] [address] [place] [facility] [place] [address] Apr, [facility] [address] [place] [facility] [place] [address] Apr, [facility] [address] [facility] [place] [address] Apr, [facility] [address] [place] [facility] [place] [address] Apr, [facility] [address] [place] [facility] [place] [address] Apr, [facility] [address] [place] [facility] [place] [address] Apr, [facility] [address] [place] [address] Apr, [facility] [address] [place] [address] Apr, [facility] [address] [place] [address] Apr, [facility] [address] [place] [address] Apr, [facility] [address] [place] [address] Apr, Other chronic pain G89.29 ; Generalized anxiety disorder F41.1 ; Nausea R11.0 and AIDS B20 [facility] [address] [place] [address] Apr, [facility] [address] [place] [address] Apr, Generalized anxiety disorder F41.1 [facility] [address] [place] [address] Apr, [facility] [address] [place] [address] Apr, Other chronic pain G89.29 [facility] [address] [place] [address] Mar, [facility] [address] [facility] [place] [id number] Mar, retirement (current) use of opiate analgesic Z79.891 ; Bipolar affective disorder F31.9 ; Smoking F17.200 ; Generalized anxiety disorder F41.1 ; Influenza vaccine administered Z23 and AIDS B20 [facility] [address] [place] [address] Mar, Other chronic pain G89.[address] [address] Mar, Generalized anxiety disorder F41.[address] [address] Mar, [facility] [address] [place] [address] Mar, Asymptomatic HIV infection Z21 [address] [address] Mar, Other chronic pain G89.[address] [address] Feb, [facility] [address] [place] [address] Feb, [facility] [address] [place] [address] Feb, [facility] [address] [place] [address] Feb, [facility] [address] [place] [address] Feb, [facility] [address] [place] [address] Jan, Other chronic pain G89.29 and Nausea & vomiting R11.2 [facility] [address] [place] [address] Jan, Other chronic pain G89.[address] [address] Dec, [address] [address] Dec, Other chronic pain G89.29 ; Asymptomatic HIV infection Z21 ; Intrinsic asthma J45.909 ; Bipolar affective disorder F31.9 ; Noncompliance Z91.19 ; Migraine G43.909 ; Tobacco use disorder Z72.0 ; GERD (gastroesophageal reflux disease) K21.9 ; Backache M54.9 and Generalized anxiety disorder F41.[address] [address] Nov, [address] [address] Nov, [address] [address] Oct, Other chronic pain 338.[address] [address] Oct, [address] [address] Oct, Unspecified backache 724.5 and Dysphagia 787.[address] [address] Sep, Other chronic pain 338.[address] [address] Sep, [address] [address] Aug, URI (upper respiratory infection) 465.9 and Diarrhea 787.[address] [address] Aug, [address] [address] Aug, Other chronic pain 338.[address] [address] Aug, Other chronic pain 338.29 and Generalized anxiety disorder 300.[address] [address] Aug, [address] [address] July, Other chronic pain 338.29 [facility] [address] [facility] [place] [id number] July, Nondependent tobacco use disorder 305.1 ; Unspecified backache 724.5 ; Other chronic pain 338.29 ; Abdominal pain, unspecified site 789.00 ; retirement (current) use of opiate analgesic V58.69 and Acquired immune deficiency syndrome [address] [address] July, Other chronic pain 338.29 [address] [address] [address] Jun, Other chronic pain 338.[address] [address] Jun, [address] [address] Jun, Other chronic pain 338.[address] [address] Jun, URI (upper respiratory infection) 465.[address] [address] Jun, Generalized anxiety disorder 300.02 and Seasonal allergies 477.[address] [address] Jun, Generalized anxiety disorder 300.[address] [address] May, Other chronic pain 338.[address] [address] May, Other chronic pain 338.29 and Generalized anxiety disorder 300.[address] [address] Apr, Asthma, intrinsic 493.10 and Acute upper respiratory infections of other multiple sites 465.[address] [address] [place] [address] Apr, [facility] [address] [facility] [address] [place], [place] [id number] Apr, Depressive disorder 311 [facility] [address] [place] [address] Apr, Other chronic pain 338.[address] [address] Apr, [facility] [address] [place] [address] Apr, Other chronic pain 338.[address] [address] Mar, Acute upper respiratory infections of unspecified site 465.[address] [id number] Mar, Migraine 346.90 ; Nondependent tobacco use disorder 305.1 ; Esophageal reflux 530.81 ; Unspecified backache 724.5 ; Abdominal pain, generalized 789.07 ; Flatulence, eructation, and gas pain 787.3 ; Asymptomatic human immunodeficiency virus (HIV) infection status V08 ; Dyspepsia and other specified disorders of function of stomach 536.8 ; Nausea alone 787.02 and Asthma 493.[address] [address] Mar, Other chronic pain 338.[address] [address] Feb, Other chronic pain 338.29 and Generalized anxiety disorder 300.[address] [address] Feb, Abdominal pain, generalized 789.[address] [address] Jan, Abdominal pain, generalized 789.[address] [id number] Dec, [address] [address] Dec, [facility] [address] [facility] [place] [address] Dec, Unspecified backache 724.5 [facility] [address] [facility] [place] [address] Dec, [facility] [address] [facility] [place] [address] Nov, [facility] [address] [facility] [address] [place] [id number] Nov, [facility] [address] [facility] [place] [id number] Nov, Bipolar disorder, unspecified 296.80 ; Abdominal pain, generalized 789.07 ; Generalized anxiety disorder 300.02 ; Nausea alone 787.02 ; Flu vaccine need V04.81 and Human immunodeficiency virus (HIV) disease 042 [facility] [address] [facility] [place] [address] Nov, [facility] [address] [facility] [address] [place] [id number] Oct, [facility] [address] [facility] [address] [place] [id number] Oct, [facility] [address] [facility] [address] [place] [id number] Aug, [facility] [address] [facility] [place] [address] Jun, [facility] [address] [place] [address] Mar, [facility] [address] [facility] [place] [address] Oct, [facility] [address] [facility] [place] [address] July, [facility] [address] [facility] [place] [address] Jun, [facility] [address] [facility] [place] [address] May, [facility] [address] [place] [address] Mar, [facility] [address] [place] [address] 14 Feb, 2012 [facility] [address] [place] [address] Nov, [facility] [address] [place] [address] Oct, [facility] [address] [place] [address] Aug, [facility] [address] [place] [address] May, [facility] [address] [place] [address] Mar, IMMUNIZATIONS No Known Immunizations SOCIAL HISTORY Never Assessed REASON FOR VISIT Re: RE:Re: RE:Re: RE:refill PLAN OF CARE VITAL [...]
--- OUTSIDE RECORDS SUMMARY | 2018-03-22 13:55 | XMS REPORT ---
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 36915174 Problem Anxiety F41.9 Active 47474543 Problem HIV (human immunodeficiency virus infection) Z21 Active 13921325 ALLERGIES No Known Allergies ENCOUNTERS Encounter Location Date Diagnosis [facility] [address] [address] Oct, Insect bite, initial encounter W57.XXXA and Acute nonintractable headache, unspecified headache type R51 [place] [address] [address] Sep, [place] [address] [place] [id number] [place] [address] Sep, [facility] [id number] [place] [address] Aug, Brown recluse spider bite or sting, accidental or unintentional, initial encounter T63.331A [place] [address] [place] [id number] [place] [address] July, Bug bite, subsequent encounter W57.XXXD and Opioid use disorder F11.99 [facility] [id number] [place] [address] July, Insect bite, initial encounter W57.XXXA [place] [address] [place] [address] July, [facility] [address] [address] July, [facility] [id number] [address] July, Opioid use disorder, severe, dependence F11.20 and Alleged drug diversion Z65.3 [facility] [id number] [place] [address] July, [facility] [id number] [place] [address] Jun, [facility] [id number] [place] [address] Apr, [facility] [id number] [place] [address] Jan, HIV (human immunodeficiency virus infection) Z21 and Anxiety F41.9 [facility] [address] [address] Jan, [facility] [id number] [place] [id number] Oct, [facility] [address] [address] Aug, HIV (human immunodeficiency virus infection) Z21 [facility] [address] [address] July, HIV (human immunodeficiency virus infection) Z21 [facility] [address], [place] [address] July, [facility] [address], [place] [address] Apr, [facility] [address], [place] [address] Mar, [facility] [id number], [place] [address] Jan, Ankle injury, right, initial encounter S99.911A and Shortness of breath R06.02 [facility] [id number] [place] [address] Dec, Hematoma T14.8 [facility] [id number] [place] [address] Dec, [facility] [id number] [place] [address] Sep, [facility] [id number] [place] [address] May, [facility] [id number] [place] [address] Apr, Positive PPD R76.11 [facility] [id number] [place] [address] Mar, [facility] [id number] [place] [address] Feb, Generalized abdominal pain R10.84 and Anxiety F41.9 [facility] [id number] [place] [address] July, [facility] [id number] [place] [address] 14 Jun, 2014 [facility] [id number] [place] [address] Jun, [facility] [id number] [place] [address] Dec, [facility] [id number] [place] [address] Dec, [facility] [id number] [place] [address] Dec, [facility] [id number] [place] [address] [place] [address] 29 Sep, 2013 [facility] [place] [facility] [address] [id number] [place] [address] 29 Sep, 2013 [facility] [place] [facility] [address] [id number] [place] [address] 29 Sep, 2013 [facility] [place] [facility] [address] [id number] [place] [address] 29 Sep, 2013 [facility] [place] [facility] [address] [id number] [place] [address] 29 Sep, 2013 [facility] [place] [facility] [address] [id number] [place] [address] 29 Sep, 2013 [facility] [place] [facility] [address] [id number] [place] [address] 29 Sep, 2013 [facility] [place] [facility] [address] [id number] [place] [address] 29 Sep, 2013 [facility] [place] [facility] [address] [id number] [place] [address] 26 Sep, 2013 [facility] [place] [facility] [address] [id number] [place] [address] 26 Sep, 2013 [facility] [place] [facility] [address] [id number] [place] [address] 24 Sep, 2013 [facility] [place] [facility] [address] [id number] [place] [address] 24 Sep, 2013 [facility] [place] [facility] [address] [id number] [address] 23 Sep, 2013 [facility] [place] [facility] [address] [id number] [place] [address] 23 Sep, 2013 [facility] [place] [facility] [address] [id number] [place] [address] 22 Sep, 2013 [facility] [place] [facility] [address] [id number] [place] [address] 18 Sep, 2013 [facility] [place] [facility] [id number] [address] Nov, [facility] [id number] [address] Nov, [facility] [address], [place] [address] Nov, [facility] [address] [address] Nov, [facility] [id number] [address] Nov, [facility] [address] [address] Oct, [facility] [address] [address] Oct, [facility] [address] [address] May, IMMUNIZATIONS No Known Immunizations SOCIAL HISTORY Never Assessed REASON FOR VISIT spider bite- started doxy 08/18 changes to bactrium ds 08/20 is not improving Nick PLAN OF CARE Activity Details Follow Up 1 Week, prn Reason:if symptoms worsen or not improving VITAL SIGNS Height 65.5 in 2017-08-21 Weight 134.6 lbs 2017-08-21 Temperature 99.5 degrees Fahrenheit 2017-08-21 Heart Rate 100 bpm 2017-08-21 Respiratory Rate 22 2017-08-21 BMI 22.06 kg/m2 2017-08-21 Blood pressure systolic 120 mmHg 2017-08-21 Blood pressure diastolic 70 mmHg 2017-08-21 MEDICATIONS Medication Instructions Dosage Frequency Start Date End Date Duration Status Dronabinol 10 mg Orally 3 times a day 1 capsule 8h Active Methocarbamol 750 MG Orally at bedtime 1 tablet Active Omeprazole 40 mg Orally Once a day 1 capsule 24h Active Zofran 8 MG Orally every 8 hours prn 1 tablet Not-Taking Stribild [phone] mg take 1 tablet by oral route once daily with food Nov, Active Tramadol HCl 50 MG Orally every 6 hrs 1 tablet as needed 6h Not- Taking ProAir HFA 108 (90 Base) MCG/ACT Inhalation every 6 hrs 2 puffs as needed 6h Active Vistaril 25 MG Orally every 8 hrs 1 capsule as needed 8h July, 10 days Active Zithromax Z-Riky 250 MG Orally Once a day 1 tablet a day 24h Not- Taking RESULTS No Results PROCEDURES No Known procedures INSTRUCTIONS MEDICATIONS ADMINISTERED No Known Medications MEDICAL (GENERAL) HISTORY Type Description Date Medical History HIV Medical History anxiety Surgical History gallbladder Surgical History tubal ligation Surgical History hysterectomy, total with bilateral salpingo-oophorectomy (BSO )
--- OUTSIDE RECORDS SUMMARY | 2018-03-22 13:55 | XMS REPORT ---
Author Author Dulce Herrera 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 Second Class Name Role Phone Dulce Herrera Unavailable PROBLEMS Type Condition ICD9-CM Code [id number] Code Onset Dates Condition Status SNOMED Code Problem Bipolar affective disorder F31.9 Active 75837453 Problem Nicotine dependence, cigarettes, uncomplicated F17.210 Active 68372810 Problem senior care (current) use of opiate analgesic Z79.891 Active 040784193 Problem Non-intractable cyclical vomiting with nausea G43.A0 Active 79307848 Problem Poor appetite R63.0 Active 37342532 Problem Wheezing on auscultation R06.2 Active 328758491 Problem Acquired immune deficiency syndrome B20 Active 22274352 Problem Other chronic pain G89.29 Active 27618410 Problem Mood swings F39 Active 08275468 Problem Generalized anxiety disorder F41.1 Active 24499565 Problem GERD (gastroesophageal reflux disease) K21.9 Active 208940857 Problem Mixed hyperlipidemia E78.2 Active 712255045 Problem Intrinsic asthma J45.909 Active 834097313 Problem Migraine G43.909 Active 29086032 Problem Backache M54.9 Active 331791294 ALLERGIES No Information ENCOUNTERS Encounter Location Date Diagnosis [facility] [address] [place] [id number] Nov, [facility] [address] [place] [address] Oct, [facility] [address] [place] [address] Oct, [facility] [address] [place] [address] Oct, [facility] [address] [place] [address] Oct, Upper respiratory infection J06.9 and Backache M54.[address] [facility] [address] [place] [address] Oct, Generalized anxiety disorder F41.1 and Backache M54.[address] [facility] [address] [place] [address] Sep, Acquired immune deficiency syndrome B20 [facility] [address] [place] [address] Sep, [facility] [address] [place], [place] [id number] Sep, Acquired immune deficiency syndrome B20 ; Intrinsic asthma J45.909 and Open wound T14.8XXA [facility] [address] [place] [address] Sep, [facility] [address] [place] [address] Sep, [facility] [address] [place] [address] Sep, [facility] [address] [place] [address] Sep, Poor appetite R63.0 [facility] [address] [place] [address] Sep, Backache M54.9 [facility] [address] [place] [address] Sep, [facility] [address] [place] [address] Aug, Generalized anxiety disorder F41.1 [facility] [address] [place] [address] Aug, [facility] [address] [place] [address] Aug, Backache M54.9 [facility] [address] [place] [address] Aug, [facility] [address] [place] [address] Aug, Spider bite T63.301A [facility] [address] [place] [address] Aug, [facility] [address] [place] [facility] [place] [address] Aug, [facility] [address] [place] [facility] [place] [address] Aug, [facility] [address] [place] [facility] [place] [address] July, [facility] [address] [place] [facility] [place] [address] July, [facility] [address] [place] [facility] [place] [address] July, [facility] [address] [place] [facility] [place] [address] July, [facility] [address] [place] [facility] [place] [address] July, [facility] [address] [place] [address] July, Poor appetite R63.0 and Backache M54.9 [facility] [address] [place] [facility] [place] [address] July, [facility] [address] [place] [facility] [place] [address] July, [facility] [address] [place] [address] July, [facility] [address] [place] [address] July, [facility] [address] [place] [facility] [place] [address] July, [facility] [address] [place] [facility] [place] [address] July, Nausea and vomiting R11.2 [facility] [address] [place] [facility] [place] [address] July, [facility] [address] [place] [facility] [place] [address] July, [facility] [address] [place] [address] July, [facility] [address] [place] [address] July, [facility] [address] [place] [facility] [place] [address] July, [facility] [address] [place] [facility] [place] [address] July, Other chronic pain G89.29 [facility] [address] [place] [address] July, [facility] [address] [place] [address] July, GERD (gastroesophageal reflux disease) K21.9 [facility] [address] [place] [address] July, [facility] [address] [place] [address] Jun, [facility] [address] [place] [facility] [place] [address] Jun, [facility] [address] [place] [address] Jun, [facility] [address] [place] [address] Jun, [facility] [address] [place] [address] Jun, Other chronic pain G89.29 [facility] [address] [place] [address] Jun, [facility] [address] [place] [address] Jun, [facility] [address] [place] [address] Jun, [facility] [address] [place] [address] Jun, [facility] [address] [place] [facility] [place] [address] Jun, [facility] [address] [place] [facility] [place] [address] Jun, Generalized anxiety disorder F41.1 ; Other chronic pain G89.29 and Non-intractable cyclical vomiting with nausea G43.A0 [facility] [address] [id number] Jun, Acquired immune deficiency syndrome B20 ; senior care ( current) use of opiate analgesic Z79.891 ; Nicotine dependence, cigarettes, uncomplicated F17.210 ; Lower respiratory infection J22 ; Poor appetite R63.0 ; Other chronic pain G89.29 ; Generalized anxiety disorder F41.1 and Need for tetanus booster Z23 [address] [address] Jun, [address] [address] May, Generalized abdominal pain R10.[address] [address] May, [address] [address] Apr, AIDS B20 ; Generalized abdominal pain R10.84 and Dysmenorrhea N94.[address] [address] Apr, Acute URI J06.[address] [address] Apr, [address] [address] Apr, [facility] [address] [id number] Apr, Acquired immune deficiency syndrome B20 ; 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 and Migraine G43.[address] [address] Mar, Dysmenorrhea N94.[address] [address] Mar, [address] [address] Mar, Generalized anxiety disorder F41.1 and Generalized abdominal pain R10.[address] [address] Mar, [facility] [address] [place] [address] Mar, Generalized abdominal pain R10.84 and Generalized anxiety disorder F41.1 [facility] [address] [place] [address] Feb, [facility] [address] [place] [address] Feb, Generalized abdominal pain R10.84 [facility] [address] [place] [address] Jan, Nausea and vomiting R11.2 [facility] [address] [place] [address] Jan, [facility] [address] [place] [address] 16 Jan, 2017 [facility] [address] [place] [address] Jan, [facility] [address] [place] [address] Jan, [facility] [address] [place] [address] 14 Jan, 2017 [facility] [address] [place] [address] Jan, Mood swings F39 [facility] [address] [place] [address] 08 Jan, 2017 [facility] [address] [place] [address] Jan, [facility] [address] [place] [address] Jan, [facility] [address] [place] [address] Jan, Dysmenorrhea N94.6 [facility] [address] [place] [id number] Jan, Acquired immune deficiency syndrome B20 ; Generalized abdominal pain R10.84 and Refused influenza vaccine Z28.21 [facility] [address] [place] [address] Jan, [facility] [address] [place] [address] Dec, Generalized abdominal pain R10.[address] [facility] [address] [place] [address] Dec, Dysmenorrhea N94.[address] [facility] [address] [place] [address] Dec, Backache M54.[address] [facility] [address] [place] [address] Nov, Generalized abdominal pain R10.[address] [facility] [address] [place] [address] Nov, Generalized anxiety disorder F41.[address] [address] 08 Nov, 2016 Dysmenorrhea N94.[address] [address] Oct, [address] [address] Oct, [address] [address] Oct, [address] [address] Oct, Generalized abdominal pain R10.84 [facility] [address] [place] [id number] Oct, Acquired immune deficiency syndrome B20 ; 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 ; Bipolar affective disorder F31.9 ; Generalized anxiety disorder F41.1 ; Backache M54.9 ; Mixed hyperlipidemia E78.2 ; Nicotine dependence, cigarettes, uncomplicated F17.210 and Wheezing on auscultation R06.[address] [address] Oct, Oral candidiasis B37.[address] [address] Oct, [address] [address] Oct, Acute upper respiratory infection J06.9 [facility] [address] [place] [facility] [place] [address] Oct, Acute upper respiratory infection J06.9 [facility] [address] [place] [facility] [place] [address] Sep, Dysmenorrhea N94.6 [facility] [address] [place] [facility] [place] [address] Sep, Generalized anxiety disorder F41.1 [facility] [address] [place] [facility] [place] [address] Sep, Dysmenorrhea N94.6 [facility] [address] [place] [facility] [place] [address] Sep, [facility] [address] [place] [facility] [place] [address] Sep, Dysmenorrhea N94.6 [facility] [address] [place] [facility] [place] [address] Aug, Acquired immune deficiency syndrome B20 [facility] [address] [place] [facility] [place] [address] Aug, Generalized anxiety disorder F41.1 [facility] [address] [place] [facility] [place] [address] Aug, [facility] [address] [place] [facility] [place] [address] Aug, [facility] [address] [place] [address] Aug, [facility] [address] [place] [facility] [place] [address] Aug, [facility] [address] [place] [facility] [place] [address] Aug, [facility] [address] [place] [facility] [place] [address] Aug, [facility] [address] [place] [facility] [place] [address] Aug, [facility] [address] [place] [facility] [place] [address] Aug, Acute opioid withdrawal F11.23 [facility] [address] [facility] [place] [address] July, Upper respiratory infection J06.[address] [address] July, Backache M54.9 [facility] [address] [id number] July, Acquired immune deficiency syndrome B20 ; senior care 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 Z79.891 ; Hyperglycemia R73.9 ; Bipolar affective disorder F31.9 ; GERD (gastroesophageal reflux disease) K21.9 ; Backache M54.9 ; Generalized anxiety disorder F41.1 ; Mixed hyperlipidemia E78.2 ; Nicotine dependence, cigarettes, uncomplicated F17.210 and Localized edema R60.[address] [address] July, [address] [address] Jun, Backache M54.[address] [address] Jun, Chronic pain G89.[address] [address] May, Backache M54.[address] [address] May, Backache M54.[address] [address] Apr, Cough R05 [facility] [address] [id number] Apr, Acquired immune deficiency syndrome B20 ; Screening examination for sexually transmitted disease Z11.3 ; Dermatitis L30.9 and Migraine with aura and with status migrainosus, not intractable G43.[address] [address] Apr, Backache M54.[address] [address] Mar, Intrinsic asthma J45.909 ; Nausea and vomiting R11.2 and AIDS B20 [facility] [address] [place] [address] Mar, Backache M54.[address] [address] Feb, Chronic pain G89.[address] [address] Feb, Backache M54.[address] [address] Jan, [place] [facility], 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 [address] Jan, Asthma, intrinsic 493.[address] [address] Jan, [address] [address] Jan, [address] [address] Jan, Backache M54.[address] [address] Dec, Chronic pain G89.29 [facility] [address] [place] [id number] Dec, AIDS B20 ; Influenza vaccine needed Z23 ; Intrinsic asthma J45.909 ; Backache M54.9 ; Generalized anxiety disorder F41.1 ; Nicotine dependence, cigarettes, uncomplicated F17.210 and Mixed hyperlipidemia E78.[address] [address] Dec, [address] [address] Dec, Dysmenorrhea N94.[address] [address] Dec, [address] [address] Dec, Depression with anxiety F41.8 and Backache M54.[address] [facility] [address] [place] [address] Nov, [facility] [address] [place] [address] Nov, Other chronic pain G89.29 [facility] [address] [place] [address] Nov, Other chronic pain G89.29 [facility] [address] [place] [address] 18 Nov, 2015 [facility] [address] [place] [address] 14 Nov, 2015 Generalized anxiety disorder F41.1 [facility] [address] [place] [address] Nov, [facility] [address] [place] [address] Nov, [facility] [address] [place] [address] Nov, Chronic pain G89.29 [facility] [address] [place] [address] Oct, [facility] [address] [place] [address] Oct, Other chronic pain G89.29 [facility] [address] [place] [address] Oct, [facility] [address] [place] [address] Oct, [facility] [address] [place] [address] Oct, Nausea and vomiting R11.2 [facility] [address] [place] [address] Oct, Chronic pain G89.29 [facility] [address] [place] [address] Sep, [facility] [address] [place] [address] Sep, Acute upper respiratory infection, unspecified J06.9 [facility] [address] [place] [address] Sep, Upper respiratory infection J06.[address] [facility] [address] [place] [address] Sep, [facility] [address] [place] [address] Sep, [facility] [address] [place] [address] Sep, Other chronic pain G89.29 [facility] [address] [facility] [place] [id number] Sep, AIDS B20 ; senior care (current) use of opiate analgesic Z79.891 ; Smoking F17.200 ; Mixed hyperlipidemia E78.2 ; Chronic pain G89.29 and Edema R60.[address] [address] Sep, [facility] [address] [place] [address] Sep, [facility] [address] [place] [address] Aug, [facility] [address] [place] [address] Aug, Other chronic pain G89.[address] [address] Aug, Generalized anxiety disorder F41.[address] [address] July, Other chronic pain G89.[address] [facility] [address] [place] [address] July, Other chronic pain G89.[address] [facility] [address] [place] [address] July, [facility] [address] [place] [address] Jun, Generalized anxiety disorder F41.[address] [address] Jun, [facility] [address] [place] [address] Jun, Other chronic pain G89.29 [facility] [address] [place] [facility] [place] [address] Jun, Rash and other nonspecific skin eruption R21 [facility] [address] [place] [facility] [place] [address] Jun, [facility] [address] [place] [facility] [place] [address] Jun, [facility] [address] [place] [facility] [place] [address] Jun, [facility] [address] [place] [facility] [place] [address] Jun, [facility] [address] [place] [facility] [place] [address] Jun, [facility] [address] [place] [facility] [place] [address] Jun, [facility] [address] [place] [facility] [place] [address] Jun, [facility] [address] [place] [facility] [place] [address] Jun, Other chronic pain G89.29 [facility] [address] [place] [facility] [place] [address] Jun, [facility] [address] [place] [facility] [place] [address] Jun, [facility] [address] [place] [facility] [place] [address] Jun, [facility] [address] [place] [facility] [place] [address] Jun, [facility] [address] [place] [facility] [place] [address] Jun, [facility] [address] [place] [facility] [place] [address] Jun, [facility] [address] [place] [facility] [place] [address] Jun, [facility] [address] [place] [facility] [place] [address] Jun, [facility] [address] [place] [address] Jun, [facility] [address] [place] [address] Jun, Nausea and vomiting R11.2 [facility] [address] [place] [address] 24 May, 2015 [facility] [address] [place] [address] May, Rash and other nonspecific skin eruption R21 [facility] [address] [place] [address] May, [facility] [address] [place] [address] May, [facility] [address] [place] [address] May, [facility] [address] [place] [address], [place] [address] May, [facility] [address] [place] [address], [place] [address] May, [facility] [address] [place] [id number] 18 May, 2015 Acquired immune deficiency syndrome B20 ; Screening examination for sexually transmitted disease Z11.3 ; Depression with anxiety F41.8 ; Other chronic pain G89.29 and Dermatitis L30.9 [facility] [address] [place] [address] May, [facility] [address] [place] [address] May, [facility] [address] [place] [address] May, [facility] [address] [place] [address] May, Backache M54.9 [facility] [address] [place] [address] May, Rash and other nonspecific skin eruption R21 [facility] [address] [place] [address] Apr, [facility] [address] [place] [address], [place] [address] Apr, [facility] [address] [place] [facility] [place] [address] Apr, Other chronic pain G89.29 [facility] [address] [place] [facility] [place] [address] Apr, [facility] [address] [place] [facility] [place] [address] Apr, [facility] [address] [place] [facility] [place] [address] Apr, [facility] [address] [place] [facility] [place] [address] Apr, [facility] [address] [place] [facility] [place] [address] Apr, [facility] [address] [place] [facility] [place] [address] Apr, [facility] [address] [place] [facility] [place] [address] Apr, [facility] [address] [place] [facility] [place] [address] Apr, [facility] [address] [place] [facility] [place] [address] Apr, [facility] [address] [place] [facility] [place] [address] Apr, [facility] [address] [place] [facility] [place] [address] Apr, Other chronic pain G89.29 ; Generalized anxiety disorder F41.1 ; Nausea R11.0 and AIDS B20 [facility] [address] [place] [facility] [place] [address] Apr, [facility] [address] [place] [facility] [place] [address] Apr, Generalized anxiety disorder F41.1 [facility] [address] [place] [facility] [place] [address] Apr, [facility] [address] [place] [address] Apr, Other chronic pain G89.[address] [facility] [address] [place] [address] Mar, [facility] [address] [facility] [place] [id number] Mar, 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 ; Bipolar affective disorder F31.9 ; Smoking F17.200 ; Generalized anxiety disorder F41.1 ; Influenza vaccine administered Z23 and AIDS B20 [facility] [address] [place] [address] Mar, Other chronic pain G89.[address] [facility] [address] [place] [address] Mar, Generalized anxiety disorder F41.[address] [facility] [address] [place] [address] Mar, [facility] [address] [place] [address] Mar, Asymptomatic HIV infection Z21 [facility] [address] [place] [address] Mar, Other chronic pain G89.[address] [facility] [address] [place] [address] Feb, [facility] [address] [place] [address] Feb, [facility] [address] [place] [address] Feb, [facility] [address] [place] [address] Feb, [facility] [address] [place] [address] Feb, [facility] [address] [place] [address] Jan, Other chronic pain G89.29 and Nausea & vomiting R11.[address] [facility] [address] [place] [address] Jan, Other chronic pain G89.[address] [facility] [address] [place] [address] Dec, [address] [address] Dec, Other chronic pain G89.29 ; Asymptomatic HIV infection Z21 ; Intrinsic asthma J45.909 ; Bipolar affective disorder F31.9 ; Noncompliance Z91.19 ; Migraine G43.909 ; Tobacco use disorder Z72.0 ; GERD (gastroesophageal reflux disease) K21.9 ; Backache M54.9 and Generalized anxiety disorder F41.[address] [address] Nov, [address] [address] Nov, [address] [address] Oct, Other chronic pain 338.[address] [address] Oct, [address] [address] Oct, Unspecified backache 724.5 and Dysphagia 787.[address] [address] Sep, Other chronic pain 338.[address] [address] Sep, [address] [address] Aug, URI (upper respiratory infection) 465.9 and Diarrhea 787.[address] [address] Aug, [address] [address] Aug, Other chronic pain 338.[address] [address] Aug, Other chronic pain 338.29 and Generalized anxiety disorder 300.[address] [address] Aug, [facility] [address] [place] [address] July, Other chronic pain 338.29 [facility] [address] [facility] [facility] [address] [place] [id number] July, Nondependent tobacco use disorder 305.1 ; Unspecified backache 724.5 ; Other chronic pain 338.29 ; Abdominal pain, unspecified site 789.00 ; termite helper (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 V58.69 and Acquired immune deficiency syndrome [address] [address] July, Other chronic pain 338.[address] [address] Jun, Other chronic pain 338.[address] [address] Jun, [address] [address] Jun, Other chronic pain 338.[address] [address] Jun, URI (upper respiratory infection) 465.[address] [address] Jun, Generalized anxiety disorder 300.02 and Seasonal allergies 477.[address] [address] Jun, Generalized anxiety disorder 300.[address] [address] May, Other chronic pain 338.[address] [address] May, Other chronic pain 338.29 and Generalized anxiety disorder 300.[address] [address] Apr, Asthma, intrinsic 493.10 and Acute upper respiratory infections of other multiple sites 465.[address] [address] Apr, [facility] [address] [facility] [address] [place], [place] [id number] Apr, Depressive disorder [address] [facility] [address] [place] [address] Apr, Other chronic pain 338.[address] [facility] [address] [place] [address] Apr, [address] [address] Apr, Other chronic pain 338.[address] [address] Mar, Acute upper respiratory infections of unspecified site 465.[address] [id number] Mar, Migraine 346.90 ; Nondependent tobacco use disorder 305.1 ; Esophageal reflux 530.81 ; Unspecified backache 724.5 ; Abdominal pain, generalized 789.07 ; Flatulence, eructation, and gas pain 787.3 ; Asymptomatic human immunodeficiency virus (HIV) infection status V08 ; Dyspepsia and other specified disorders of function of stomach 536.8 ; Nausea alone 787.02 and Asthma 493.[address] [address] Mar, Other chronic pain 338.[address] [address] Feb, Other chronic pain 338.29 and Generalized anxiety disorder 300.[address] [address] Feb, Abdominal pain, generalized 789.[address] [address] Jan, Abdominal pain, generalized 789.[address] [id number] Dec, [address] [address] Dec, [address] [address] Dec, Unspecified backache 724.5 [facility] [address] [place] [facility] [place] [address] Dec, [facility] [address] [place] [facility] [place] [address] Nov, [facility] [facility] [place] [facility] [address] [facility] [address] [place] [id number] Nov, [facility] [address] [facility] [place] [id number] Nov, Bipolar disorder, unspecified 296.80 ; Abdominal pain, generalized 789.07 ; Generalized anxiety disorder 300.02 ; Nausea alone 787.02 ; Flu vaccine need V04.81 and Human immunodeficiency virus (HIV) disease 042 [facility] [address] [place] [facility] [place] [address] Nov, [facility] [facility] [place] [facility] [place] [facility] [address] [facility] [address] [place] [id number] Oct, [facility] [facility] [place] [facility] [address] [facility] [address] [place] [id number] Oct, [facility] [facility] [place] [facility] [address] [facility] [address] [place] [id number] Aug, [facility] [address] [place] [facility] [place] [address] Jun, [facility] [address] [place] [facility] [place] [address] Mar, [facility] [address] [place] [address] Oct, [facility] [address] [place] [facility] [place] [address] July, [facility] [address] [place] [facility] [place] [address] Jun, [facility] [address] [place] [facility] [place] [address] May, [facility] [address] [place] [facility] [place] [address] Mar, [facility] [address] [place] [address] Feb, [facility] [address] [place] [address] 14 Nov, [address] [facility] [address] [place] [address] Oct, [facility] [address] [place] [facility] [place] [address] Aug, [facility] [address] [place] [address] May, [facility] [address] [place] [address] Mar, IMMUNIZATIONS No Known Immunizations SOCIAL HISTORY Never Assessed REASON FOR VISIT FYI PLAN OF CARE VITAL SIGNS MEDICATIONS Unknown [...]
[2018-03-22 13:56] LABS: BASOPHILS % (AUTO) 1 % (0-10); EOSINOPHILS % (AUTO) 1 % (0-10); HEMATOCRIT 34 % (35-52); HEMOGLOBIN 11.1 G/DL (11.5-16.0); LYMPHOCYTES # (AUTO) 0.9 X 10^3 (1.0-4.0); LYMPHOCYTES % (AUTO) 44 % (12-44); MEAN CORPUSCULAR HEMOGLOBIN 29 PG (25-34); MEAN CORPUSCULAR HGB CONC 33 G/DL (32-36); MEAN CORPUSCULAR VOLUME 88 FL (80-99); MEAN PLATELET VOLUME 11.7 FL (7.4-10.4); MONOCYTES # (AUTO) 0.4 X 10^3 (0.0-1.0); MONOCYTES % (AUTO) 20 % (0-12); NEUTROPHILS # (AUTO) 0.7 X 10^3 (1.8-7.8); NEUTROPHILS % (AUTO) 35 % (42-75); PLATELET COUNT 313 10^3/uL (130-400); RED BLOOD COUNT 3.88 10^6/uL (4.35-5.85); RED CELL DISTRIBUTION WIDTH 18.3 % (10.0-14.5); WHITE BLOOD COUNT 2.1 10^3/uL (4.3-11.0)
--- OUTSIDE RECORDS SUMMARY | 2018-03-22 13:56 | XMS REPORT ---
Author Author Dulce Herrera [facility] Address [address], [place] [id number] Care Team Providers Care Cocktail Server Name Role Phone Dulce Herrera Unavailable PROBLEMS Type Condition ICD9-CM Code [id number] Code Onset Dates Condition Status SNOMED Code Problem Bipolar affective disorder F31.9 Active 68518938 Problem Nicotine dependence, cigarettes, uncomplicated F17.210 Active 30989472 Problem alf (current) use of opiate analgesic Z79.891 Active 030517960 Problem Non-intractable cyclical vomiting with nausea G43.A0 Active 32391359 Problem Poor appetite R63.0 Active 77401677 Problem Wheezing on auscultation R06.2 Active 980361091 Problem Acquired immune deficiency syndrome B20 Active 45271582 Problem Other chronic pain G89.29 Active 46816438 Problem Mood swings F39 Active 86587770 Problem Generalized anxiety disorder F41.1 Active 01712455 Problem GERD (gastroesophageal reflux disease) K21.9 Active 890436036 Problem Mixed hyperlipidemia E78.2 Active 143907229 Problem Intrinsic asthma J45.909 Active 430056593 Problem Migraine G43.909 Active 76266457 Problem Backache M54.9 Active [id number] ALLERGIES No Information ENCOUNTERS Encounter Location Date Diagnosis [facility] [address] [place] [id number] Nov, [facility] [address] [place] [address] Oct, [facility] [address] [place] [address] Oct, [facility] [address] [place] [address] Oct, Upper respiratory infection J06.9 and Backache M54.[address] [address] Oct, Generalized anxiety disorder F41.1 and Backache M54.9 [facility] [address] [place] [address] Sep, Acquired immune deficiency syndrome B20 [facility] [address] [place] [address] Sep, [facility] [address] [facility] [place] [id number] Sep, Acquired immune deficiency syndrome B20 ; Intrinsic asthma J45.909 and Open wound T14.8XXA [facility] [address] [place] [address] Sep, [facility] [address] [place] [address] Sep, [facility] [address] [place] [address] Sep, [facility] [address] [place] [address] Sep, Poor appetite R63.0 [facility] [address] [place] [address] Sep, Backache M54.9 [facility] [address] [place] [address] Sep, [facility] [address] [place] [address] Aug, Generalized anxiety disorder F41.1 [facility] [address] [place] [address] Aug, [facility] [address] [place] [address] Aug, Backache M54.9 [facility] [address] [place] [address] Aug, [facility] [address] [place] [address] Aug, Spider bite T63.301A [facility] [address] [place] [address] Aug, [facility] [address] [place] [address] Aug, [facility] [address] [place] [address] Aug, [facility] [address] [place] [address] July, [facility] [address] [place] [address] July, [facility] [address] [place] [address] July, [facility] [address] [place] [address] July, [facility] [address] [place] [address] July, [facility] [address] [place] [address] July, Poor appetite R63.0 and Backache M54.9 [facility] [address] [place] [address] July, [facility] [address] [place] [address] July, [facility] [address] [place] [address] July, [facility] [address] [place] [address] July, [facility] [address] [place] [address] July, [facility] [address] [place] [address] July, Nausea and vomiting R11.2 [facility] [address] [place] [address] July, [facility] [address] [place] [address] July, [facility] [address] [place] [address] July, [facility] [address] [place] [address] July, [facility] [address] [place] [address] July, [facility] [address] [place] [address] July, Other chronic pain G89.29 [facility] [address] [place] [address] July, [facility] [address] [place] [address] July, GERD (gastroesophageal reflux disease) K21.9 [facility] [address] [place] [address] July, [facility] [address] [place] [address] Jun, [facility] [address] [place] [address] Jun, [facility] [address] [place] [address] Jun, [facility] [address] [place] [address] Jun, [facility] [address] [place] [address] Jun, Other chronic pain G89.29 [facility] [address] [place] [address] Jun, [facility] [address] [place] [address] Jun, [facility] [address] [place] [address] Jun, [facility] [address] [place] [address] Jun, [facility] [address] [place] [address] Jun, [facility] [address] [place] [address] Jun, Generalized anxiety disorder F41.1 ; Other chronic pain G89.29 and Non-intractable cyclical vomiting with nausea G43.A0 [facility] [address] [place] [id number] Jun, Acquired immune deficiency syndrome B20 ; 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 ; Nicotine dependence, cigarettes, uncomplicated F17.210 ; Lower respiratory infection J22 ; Poor appetite R63.0 ; Other chronic pain G89.29 ; Generalized anxiety disorder F41.1 and Need for tetanus booster Z23 [address] [address] Jun, [address] [address] May, Generalized abdominal pain R10.[address] [address] May, [address] [address] Apr, AIDS B20 ; Generalized abdominal pain R10.84 and Dysmenorrhea N94.[address] [address] Apr, Acute URI J06.[address] [address] Apr, [address] [address] Apr, [facility] [address] [place] [id number] Apr, Acquired immune deficiency syndrome B20 ; 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 and Migraine G43.[address] [address] Mar, Dysmenorrhea N94.[address] [address] Mar, [address] [address] Mar, Generalized anxiety disorder F41.1 and Generalized abdominal pain R10.[address] [address] Mar, [address] [address] Mar, Generalized abdominal pain R10.84 and Generalized anxiety disorder F41.1 [facility] [address] [place] [address] Feb, [facility] [address] [place] [address] Feb, Generalized abdominal pain R10.84 [facility] [address] [place] [address] Jan, Nausea and vomiting R11.2 [facility] [address] [place] [address], [place] [address] 18 Jan, 2017 [facility] [address] [place] [address] Jan, [facility] [address] [place] [address], [place] [address] Jan, [facility] [address] [place] [address] Jan, [facility] [address] [place] [address] 14 Jan, 2017 [facility] [address] [place] [address] 08 Jan, 2017 Mood swings F39 [facility] [address] [place] [address] 08 Jan, 2017 [facility] [address] [place] [address] Jan, [facility] [address] [place] [address] Jan, [facility] [address] [place] [address] Jan, Dysmenorrhea N94.6 [facility] [address] [place] [id number] Jan, Acquired immune deficiency syndrome B20 ; Generalized abdominal pain R10.84 and Refused influenza vaccine Z28.21 [facility] [address] [place] [address] Jan, [facility] [address] [place] [address] Dec, Generalized abdominal pain R10.84 [facility] [address] [place] [address] Dec, Dysmenorrhea N94.6 [facility] [address] [place] [address] Dec, Backache M54.9 [facility] [address] [place] [address] 19 Nov, 2016 Generalized abdominal pain R10.84 [facility] [address] [place] [address] Nov, Generalized anxiety disorder F41.1 [facility] [address] [place] [address] Nov, Dysmenorrhea N94.6 [facility] [address] [place] [address] Oct, [facility] [address] [place] [address] Oct, [facility] [address] [place] [address] Oct, [facility] [address] [place] [address] Oct, Generalized abdominal pain R10.84 [facility] [address] [place] [id number] Oct, Acquired immune deficiency syndrome B20 ; alf 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 Z79.891 ; Bipolar affective disorder F31.9 ; Generalized anxiety disorder F41.1 ; Backache M54.9 ; Mixed hyperlipidemia E78.2 ; Nicotine dependence, cigarettes, uncomplicated F17.210 and Wheezing on auscultation R06.2 [facility] [address] [place] [address] Oct, Oral candidiasis B37.[address] [address] Oct, [facility] [address] [place] [address] Oct, Acute upper respiratory infection J06.[address] [address] Oct, Acute upper respiratory infection J06.9 [facility] [address] [place] [address] Sep, Dysmenorrhea N94.6 [facility] [address] [place] [address] Sep, Generalized anxiety disorder F41.1 [facility] [address] [place] [address] Sep, Dysmenorrhea N94.6 [facility] [address] [place] [address] Sep, [facility] [address] [place] [address] Sep, Dysmenorrhea N94.6 [facility] [address] [place] [address] Aug, Acquired immune deficiency syndrome B20 [facility] [address] [place] [address] Aug, Generalized anxiety disorder F41.1 [facility] [address] [place] [address] Aug, [facility] [address] [place] [address] Aug, [facility] [address] [place] [address] Aug, [facility] [address] [place] [address] Aug, [facility] [address] [place] [address] Aug, [facility] [address] [place] [address] Aug, [facility] [address] [place] [address] Aug, [facility] [address] [place] [address] Aug, Acute opioid withdrawal F11.23 [facility] [address] [place] [address] July, Upper respiratory infection J06.[address] [address] July, Backache M54.9 [facility] [address] [id number] July, Acquired immune deficiency syndrome B20 ; alf 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 Z79.891 ; Hyperglycemia R73.9 ; Bipolar affective disorder F31.9 ; GERD (gastroesophageal reflux disease) K21.9 ; Backache M54.9 ; Generalized anxiety disorder F41.1 ; Mixed hyperlipidemia E78.2 ; Nicotine dependence, cigarettes, uncomplicated F17.210 and Localized edema R60.[address] [address] July, [address] [address] Jun, Backache M54.[address] [address] Jun, Chronic pain G89.[address] [address] May, Backache M54.[address] [address] May, Backache M54.[address] [address] Apr, Cough R05 [facility] [address] [id number] Apr, Acquired immune deficiency syndrome B20 ; Screening examination for sexually transmitted disease Z11.3 ; Dermatitis L30.9 and Migraine with aura and with status migrainosus, not intractable G43.[address] [address] Apr, Backache M54.[address] [address] Mar, Intrinsic asthma J45.909 ; Nausea and vomiting R11.2 and AIDS B20 [address] [address] Mar, Backache M54.[address] [address] Feb, Chronic pain G89.[address] [address] Feb, Backache M54.[address] [address] Jan, [place] [facility], 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 [address] Jan, Asthma, intrinsic 493.[address] [address] Jan, [address] [address] Jan, [address] [address] Jan, Backache M54.[address] [address] Dec, Chronic pain G89.29 [facility] [address] [place] [id number] Dec, AIDS B20 ; Influenza vaccine needed Z23 ; Intrinsic asthma J45.909 ; Backache M54.9 ; Generalized anxiety disorder F41.1 ; Nicotine dependence, cigarettes, uncomplicated F17.210 and Mixed hyperlipidemia E78.[address] [address] Dec, [address] [address] Dec, Dysmenorrhea N94.[address] [address] Dec, [address] [address] Dec, Depression with anxiety F41.8 and Backache M54.[address] [address] Nov, [facility] [address] [place] [address] Nov, Other chronic pain G89.29 [facility] [address] [place] [address] Nov, Other chronic pain G89.29 [facility] [address] [place] [address] Nov, [facility] [address] [place] [address] Nov, Generalized anxiety disorder F41.1 [facility] [address] [place] [address] Nov, [facility] [address] [place] [address] Nov, [facility] [address] [place] [address] Nov, Chronic pain G89.29 [facility] [address] [place] [address] Oct, [facility] [address] [place] [address] Oct, Other chronic pain G89.29 [facility] [address] [place] [address] Oct, [facility] [address] [place] [address] Oct, [facility] [address] [place] [address] Oct, Nausea and vomiting R11.2 [facility] [address] [place] [address] Oct, Chronic pain G89.29 [facility] [address] [place] [address] Sep, [facility] [address] [place] [address] Sep, Acute upper respiratory infection, unspecified J06.9 [facility] [address] [place] [address] Sep, Upper respiratory infection J06.9 [facility] [address] [place] [address] Sep, [facility] [address] [place] [address] Sep, [facility] [address] [place] [address] Sep, Other chronic pain G89.29 [facility] [address] [facility] [place] [id number] Sep, AIDS B20 ; 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 ; Smoking F17.200 ; Mixed hyperlipidemia E78.2 ; Chronic pain G89.29 and Edema R60.9 [facility] [address] [place] [address] Sep, [facility] [address] [place] [address] Sep, [facility] [address] [place] [address] Aug, [facility] [address] [place] [address] Aug, Other chronic pain G89.29 [facility] [address] [place] [address] Aug, Generalized anxiety disorder F41.1 [facility] [address] [place] [address] July, Other chronic pain G89.29 [facility] [address] [place] [address] July, Other chronic pain G89.29 [facility] [address] [place] [address] July, [facility] [address] [place] [address] Jun, Generalized anxiety disorder F41.1 [facility] [address] [place] [address] Jun, [facility] [address] [place] [address] Jun, Other chronic pain G89.29 [facility] [address] [place] [address], [place] [address] Jun, Rash and other nonspecific skin eruption R21 [facility] [address] [place] [address] Jun, [facility] [address] [place] [address] Jun, [facility] [address] [place] [address] Jun, [facility] [address] [place] [address] Jun, [facility] [address] [place] [address] Jun, [facility] [address] [place] [address] Jun, [facility] [address] [place] [address] Jun, [facility] [address] [place] [address] Jun, Other chronic pain G89.29 [facility] [address] [place] [address] Jun, [facility] [address] [place] [address] Jun, [facility] [address] [place] [address] Jun, [facility] [address] [place] [address] Jun, [facility] [address] [place] [address] Jun, [facility] [address] [place] [address] Jun, [facility] [address] [place] [address] Jun, [facility] [address] [place] [address] Jun, [facility] [address] [place] [address] Jun, [facility] [address] [place] [address] Jun, Nausea and vomiting R11.2 [facility] [address] [place] [address] 24 May, 2015 [facility] [address] [place] [address] May, Rash and other nonspecific skin eruption R21 [facility] [address] [place] [address] May, [facility] [address] [place] [address] May, [facility] [address] [place] [address] May, [facility] [address] [place] [address] May, [facility] [address] [place] [address] May, [facility] [address] [place] [id number] May, Acquired immune deficiency syndrome B20 ; Screening examination for sexually transmitted disease Z11.3 ; Depression with anxiety F41.8 ; Other chronic pain G89.29 and Dermatitis L30.9 [facility] [address] [place] [address] May, [facility] [address] [place] [address] May, [facility] [address] [place] [address] May, [facility] [address] [place] [address] May, Backache M54.9 [facility] [address] [place] [address] May, Rash and other nonspecific skin eruption R21 [facility] [address] [place] [address] Apr, [facility] [address] [place] [address] Apr, [facility] [address] [place] [facility] [place] [address] Apr, Other chronic pain G89.29 [facility] [address] [place] [address] Apr, [facility] [address] [place] [address] Apr, [facility] [address] [place] [address] Apr, [facility] [address] [place] [address] Apr, [facility] [address] [place] [address] Apr, [facility] [address] [place] [address] Apr, [facility] [address] [place] [address] Apr, [facility] [address] [place] [address] Apr, [facility] [address] [place] [address] Apr, [facility] [address] [place] [address] Apr, [facility] [address] [place] [address] Apr, Other chronic pain G89.29 ; Generalized anxiety disorder F41.1 ; Nausea R11.0 and AIDS B20 [facility] [address] [place] [address] Apr, [facility] [address] [place] [address] Apr, Generalized anxiety disorder F41.1 [facility] [address] [place] [address] Apr, [facility] [address] [place] [address] Apr, Other chronic pain G89.29 [facility] [address] [place] [address] Mar, [facility] [address] [place] [id number] Mar, alf (current) use of opiate analgesic Z79.891 ; Bipolar affective disorder F31.9 ; Smoking F17.200 ; Generalized anxiety disorder F41.1 ; Influenza vaccine administered Z23 and AIDS B20 [facility] [address] [place] [address] Mar, Other chronic pain G89.29 [facility] [address] [place] [address] Mar, Generalized anxiety disorder F41.[address] [address] Mar, [address] [address] Mar, Asymptomatic HIV infection Z21 [address] [address] Mar, Other chronic pain G89.29 [facility] [address] [place] [address] Feb, [facility] [address] [place] [address] Feb, [address] [address] Feb, [address] [address] Feb, [facility] [address] [place] [address] Feb, [facility] [place] [facility] [place] [address] [place] [address] Jan, Other chronic pain G89.29 and Nausea & vomiting R11.2 [facility] [address] [place] [address] Jan, Other chronic pain G89.29 [facility] [address] [place] [address] Dec, [facility] [address] [place] [address] Dec, Other chronic pain G89.29 ; Asymptomatic HIV infection Z21 ; Intrinsic asthma J45.909 ; Bipolar affective disorder F31.9 ; Noncompliance Z91.19 ; Migraine G43.909 ; Tobacco use disorder Z72.0 ; GERD (gastroesophageal reflux disease) K21.9 ; Backache M54.9 and Generalized anxiety disorder F41.[address] [address] Nov, [address] [address] Nov, [address] [address] Oct, Other chronic pain 338.[address] [address] Oct, [address] [address] Oct, Unspecified backache 724.5 and Dysphagia 787.[address] [address] Sep, Other chronic pain 338.[address] [address] Sep, [address] [address] Aug, URI (upper respiratory infection) 465.9 and Diarrhea 787.[address] [address] Aug, [address] [address] Aug, Other chronic pain 338.[address] [address] Aug, Other chronic pain 338.29 and Generalized anxiety disorder 300.[address] [address] Aug, [address] [address] July, Other chronic pain 338.29 [facility] [address] [facility] [place] [id number] July, Nondependent tobacco use disorder 305.1 ; Unspecified backache 724.5 ; Other chronic pain 338.29 ; Abdominal pain, unspecified site 789.00 ; alf (current) use of opiate analgesic V58.69 and Acquired immune deficiency syndrome [address] [address] July, Other chronic pain 338.[address] [address] Jun, Other chronic pain 338.[address] [address] Jun, [address] [address] Jun, Other chronic pain 338.[address] [address] Jun, URI (upper respiratory infection) 465.[address] [address] Jun, Generalized anxiety disorder 300.02 and Seasonal allergies 477.[address] [address] Jun, Generalized anxiety disorder 300.[address] [address] May, Other chronic pain 338.29 [facility] [address] [place] [address] May, Other chronic pain 338.29 and Generalized anxiety disorder 300.[address] [address] Apr, Asthma, intrinsic 493.10 and Acute upper respiratory infections of other multiple sites 465.8 [facility] [address] [place] [address] 13 Apr, 2014 [facility] [address] [facility] [address] [place], [place] [id number] Apr, Depressive disorder [address] [address] Apr, Other chronic pain 338.[address] [address] Apr, [address] [address] Apr, Other chronic pain 338.[address] [address] Mar, Acute upper respiratory infections of unspecified site 465.9 [facility] [address] [place] [id number] Mar, Migraine 346.90 ; Nondependent tobacco use disorder 305.1 ; Esophageal reflux 530.81 ; Unspecified backache 724.5 ; Abdominal pain, generalized 789.07 ; Flatulence, eructation, and gas pain 787.3 ; Asymptomatic human immunodeficiency virus (HIV) infection status V08 ; Dyspepsia and other specified disorders of function of stomach 536.8 ; Nausea alone 787.02 and Asthma 493.[address] [address] Mar, Other chronic pain 338.[address] [address] Feb, Other chronic pain 338.29 and Generalized anxiety disorder 300.[address] [address] Feb, Abdominal pain, generalized 789.[address] [address] Jan, Abdominal pain, generalized 789.07 [facility] [address] [id number] Dec, [address] [address] Dec, [address] [address] Dec, Unspecified backache 724.[address] [address] Dec, [facility] [address] [place] [facility] [place] [address] Nov, [facility] [place] [facility] [address] [facility] [address] [place] [id number] Nov, [facility] [address] [facility] [address] [place] [id number] Nov, Bipolar disorder, unspecified 296.80 ; Abdominal pain, generalized 789.07 ; Generalized anxiety disorder 300.02 ; Nausea alone 787.02 ; Flu vaccine need V04.81 and Human immunodeficiency virus (HIV) disease 042 [facility] [address] [place] [address] Nov, [facility] [place] [facility] [address] [facility] [address] [place] [id number] Oct, [facility] [place] [facility] [address] [facility] [address] [place] [id number] Oct, [facility] [place] [facility] [address] [facility] [address] [place] [id number] Aug, [facility] [address] [place] [facility] [place] [address] Jun, [facility] [address] [place] [address] Mar, [facility] [address] [place] [facility] [place] [address] Oct, [facility] [address] [place] [facility] [place] [address] July, [facility] [address] [place] [address] Jun, [facility] [address] [place] [address] May, [facility] [address] [place] [address] Mar, [facility] [address] [place] [address] Feb, [facility] [address] [place] [facility] [place] [address] Nov, [facility] [address] [place] [address] Oct, [facility] [address] [place] [address] Aug, [facility] [address] [place] [address] May, [facility] [address] [place] [address] Mar, IMMUNIZATIONS No Known Immunizations SOCIAL HISTORY Never Assessed REASON FOR VISIT returning your call PLAN OF CARE VITAL SIGNS MEDICATIONS Unknown [...]
--- OUTSIDE RECORDS SUMMARY | 2018-03-22 13:56 | XMS REPORT ---
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 99383734 Problem Anxiety F41.9 Active 96587730 Problem HIV (human immunodeficiency virus infection) Z21 Active 30848206 ALLERGIES No Known Allergies ENCOUNTERS Encounter Location Date Diagnosis [facility] [id number] [place] [address] Oct, Insect bite, initial encounter W57.XXXA and Acute nonintractable headache, unspecified headache type R51 [address] [id number] [place] [address] Sep, [facility] [id number] [place] [address] Sep, [facility] [id number] [place] [address] Aug, Brown recluse spider bite or sting, accidental or unintentional, initial encounter T63.331A [facility] [id number] [place] [address] July, Bug bite, subsequent encounter W57.XXXD and Opioid use disorder F11.99 [facility] [id number] [place] [address] July, Insect bite, initial encounter W57.XXXA [place] [id number] [address] July, [facility] [address] [address] July, [facility] [address] [address] July, Opioid use disorder, severe, dependence F11.20 and Alleged drug diversion Z65.3 [facility] [id number] [address] July, [facility] [address] [address] Jun, [facility] [id number] [place] [address] Apr, [facility] [id number] [address] Jan, HIV (human immunodeficiency virus infection) Z21 and Anxiety F41.9 [facility] [address] [address] Jan, [facility] [id number] [place] [id number] Oct, [facility] [address] [address] Aug, HIV (human immunodeficiency virus infection) Z21 [facility] [address] [address] July, HIV (human immunodeficiency virus infection) Z21 [facility] [address] [address] July, [facility] [address] [address] Apr, [facility] [address] [address] Mar, [facility] [id number] [place] [address] Jan, Ankle injury, right, initial encounter S99.911A and Shortness of breath R06.02 [facility] [id number] [place] [address] Dec, Hematoma T14.8 [facility] [id number] [place] [address] Dec, [facility] [id number] [place] [address] Sep, [facility] [id number] [place] [address] May, [facility] [id number] [place] [address] Apr, Positive PPD R76.11 [facility] [address] [address] Mar, [facility] [id number] [place] [address] Feb, Generalized abdominal pain R10.84 and Anxiety F41.9 [facility] [id number] [place] [address] July, [facility] [id number] [place] [address] 14 Jun, 2014 [facility] [id number] [place] [address] Jun, [facility] [id number] [place] [address] Dec, [facility] [id number] [place] [address] Dec, [facility] [id number] [place] [address] Dec, [facility] [address] [place] [address] 29 Sep, 2013 [facility] [place] [facility] [address] [id number] [place] [address] 29 Sep, 2013 [facility] [place] [facility] [address] [id number] [place] [address] 29 Sep, 2013 [facility] [place] [facility] [address] [id number] [place] [address] 29 Sep, 2013 [facility] [place] [facility] [address] [id number] [place] [address] 29 Sep, 2013 [facility] [place] [facility] [address] [id number] [place] [address] 29 Sep, 2013 [facility] [place] [facility] [address] [id number] [place] [address] 29 Sep, 2013 [facility] [place] [facility] [address] [id number] [place] [address] 29 Sep, 2013 [facility] [place] [facility] [address] [id number] [place] [address] 26 Sep, 2013 [facility] [place] [facility] [address] [id number] [place] [address]46 26 Sep, 2013 [facility] [place] [facility] [address] [id number] [place] [address] 24 Sep, 2013 [facility] [place] [facility] [address] [id number] [place] [address]46 24 Sep, 2013 [facility] [place] [facility] [address] [id number] [place] [address]44 23 Sep, 2013 [facility] [place] [facility] [address] [id number] [place] [address]46 23 Sep, 2013 [facility] [place] [facility] [address] [id number] [place] [address] 22 Sep, 2013 [facility] [place] [facility] [address] [id number] [place] [address]47 18 Nov, 2013 [facility] [id number] [address] Nov, [facility] [id number] [address] Nov, [facility] [id number] [address] Nov, [facility] [id number] [address] Nov, [facility] [id number], [place] [address] Nov, [facility] [address] [address] Oct, [facility] [address] [address] Oct, [facility] [address] [address] May, IMMUNIZATIONS No Known Immunizations SOCIAL HISTORY Never Assessed REASON FOR VISIT thinks her LLL is swollen. not sure if she got bit by something or not. been like this for 2 days. serina PLAN OF CARE Activity Details Follow Up prn Reason: VITAL SIGNS Height 65.5 in 2017-07-25 Weight 135.6 lbs 2017-07-25 Temperature 98.8 degrees Fahrenheit 2017-07-25 Heart Rate 80 bpm 2017-07-25 Respiratory Rate 20 2017-07-25 BMI 22.22 kg/m2 2017-07-25 Blood pressure systolic 108 mmHg 2017-07-25 Blood pressure diastolic 80 mmHg 2017-07-25 MEDICATIONS Medication Instructions Dosage Frequency Start Date End Date Duration Status Dronabinol 10 mg Orally 3 times a day 1 capsule 8h Active Stribild [phone] mg take 1 tablet by oral route once daily with food Nov, Active Vistaril 25 MG Orally every 8 hrs 1 capsule as needed 8h July, 10 days Active Zofran 8 MG Orally every 8 hours prn 1 tablet Active Zithromax Z-Riky 250 MG Orally Once a day 1 tablet a day 24h Active Methocarbamol 750 MG Orally at bedtime 1 tablet Active Omeprazole 40 mg Orally Once a day 1 capsule 24h Active RESULTS No Results PROCEDURES No Known procedures INSTRUCTIONS MEDICATIONS ADMINISTERED No Known Medications MEDICAL (GENERAL) HISTORY Type Description Date Medical History HIV Medical History anxiety Surgical History gallbladder Surgical History tubal ligation Surgical History hysterectomy, total with bilateral salpingo-oophorectomy (BSO )
--- OUTSIDE RECORDS SUMMARY | 2018-03-22 13:57 | XMS REPORT ---
Author Author Dulce Herrera [facility] Address [address] [place], [place] [id number] Care Team Providers [employer] Name Role Phone Dulce Herrera Unavailable PROBLEMS Type Condition ICD9-CM Code [id number] Code Onset Dates Condition Status SNOMED Code Problem Bipolar affective disorder F31.9 Active 91102770 Problem Nicotine dependence, cigarettes, uncomplicated F17.210 Active 74396549 Problem [facility] (current) use of opiate analgesic Z79.891 Active 595503347 Problem Non-intractable cyclical vomiting with nausea G43.A0 Active 73205940 Problem Poor appetite R63.0 Active 96655526 Problem Wheezing on auscultation R06.2 Active 027084080 Problem Acquired immune deficiency syndrome B20 Active 26008822 Problem Other chronic pain G89.29 Active 31875412 Problem Mood swings F39 Active 12912075 Problem Generalized anxiety disorder F41.1 Active 70607352 Problem GERD (gastroesophageal reflux disease) K21.9 Active 330624760 Problem Mixed hyperlipidemia E78.2 Active 025545054 Problem Intrinsic asthma J45.909 Active 636069473 Problem Migraine G43.909 Active 34104485 Problem Backache M54.9 Active 993733564 ALLERGIES No Information ENCOUNTERS Encounter Location Date Diagnosis [facility] [address] [place], [place] [id number] Nov, [facility] [address] [place] [address] Oct, [facility] [address] [place] [address] Oct, [facility] [address] [place] [address] Oct, Upper respiratory infection J06.9 and Backache M54.[address] [address] Oct, Generalized anxiety disorder F41.1 and Backache M54.9 [facility] [address] [place] [facility] [place] [address] Sep, Acquired immune deficiency syndrome B20 [facility] [address] [place] [facility] [place] [address] Sep, [facility] [address] [facility] [place], [place] [id number] Sep, Acquired immune deficiency syndrome B20 ; Intrinsic asthma J45.909 and Open wound T14.8XXA [facility] [address] [place] [facility] [place] [address] Sep, [facility] [address] [place] [address] Sep, [facility] [address] [place] [address] Sep, [facility] [address] [place] [address] Sep, Poor appetite R63.0 [facility] [address] [place] [address] Sep, Backache M54.9 [facility] [address] [place] [address] Sep, [facility] [address] [place] [address] Aug, Generalized anxiety disorder F41.1 [facility] [address] [place] [address] Aug, [facility] [address] [place] [address] Aug, Backache M54.9 [facility] [address] [place] [address] Aug, [facility] [address] [place] [address] Aug, Spider bite T63.301A [facility] [address] [place] [address] Aug, [facility] [address] [place] [address] Aug, [facility] [address] [place] [facility] [place] [address] Aug, [facility] [address] [place] [facility] [place] [address] July, [facility] [address] [place] [facility] [place] [address] July, [facility] [address] [place] [facility] [place] [address] July, [facility] [address] [place] [facility] [place] [address] July, [facility] [address] [place] [facility] [place] [address] July, [facility] [address] [place] [facility] [place] [address] July, Poor appetite R63.0 and Backache M54.9 [facility] [address] [place] [facility] [place] [address] July, [facility] [address] [place] [facility] [place] [address] July, [facility] [address] [place] [facility] [place] [address] July, [facility] [address] [place] [facility] [place] [address] July, [facility] [address] [place] [facility] [place] [address] July, [facility] [address] [place] [facility] [place] [address] July, Nausea and vomiting R11.2 [facility] [address] [place] [facility] [place] [address] July, [facility] [address] [place] [facility] [place] [address] July, [facility] [address] [place] [facility] [place] [address] July, [facility] [address] [place] [facility] [place] [address] July, [facility] [address] [place] [facility] [place] [address] July, [facility] [address] [place] [facility] [place] [address] July, Other chronic pain G89.29 [facility] [address] [place] [facility] [place] [address] July, [facility] [address] [place] [facility] [place] [address] July, GERD (gastroesophageal reflux disease) K21.9 [facility] [address] [place] [facility] [place] [address] July, [facility] [address] [place] [facility] [place] [address] Jun, [facility] [address] [place] [facility] [place] [address] Jun, [facility] [address] [place] [facility] [place] [address] Jun, [facility] [address] [place] [facility] [place] [address] Jun, [facility] [address] [place] [facility] [place] [address] Jun, Other chronic pain G89.29 [facility] [address] [place] [facility] [place] [address] Jun, [facility] [address] [place] [facility] [place] [address] Jun, [facility] [address] [place] [facility] [place] [address] Jun, [facility] [address] [place] [facility] [place] [address] Jun, [facility] [address] [place] [facility] [place] [address] Jun, [facility] [address] [place] [facility] [place] [address] Jun, Generalized anxiety disorder F41.1 ; Other chronic pain G89.29 and Non-intractable cyclical vomiting with nausea G43.A0 [facility] [address] [place] [id number] Jun, Acquired immune deficiency syndrome B20 ; 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 ; Nicotine dependence, cigarettes, uncomplicated F17.210 ; Lower respiratory infection J22 ; Poor appetite R63.0 ; Other chronic pain G89.29 ; Generalized anxiety disorder F41.1 and Need for tetanus booster Z23 [address] [address] Jun, [address] [address] May, Generalized abdominal pain R10.[address] [address] May, [address] [address] Apr, AIDS B20 ; Generalized abdominal pain R10.84 and Dysmenorrhea N94.[address] [address] Apr, Acute URI J06.[address] [address] Apr, [address] [address] Apr, [facility] [address] [place] [id number] Apr, Acquired immune deficiency syndrome B20 ; 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 and Migraine G43.[address] [address] Mar, Dysmenorrhea N94.[address] [address] Mar, [address] [address] Mar, Generalized anxiety disorder F41.1 and Generalized abdominal pain R10.[address] [address] Mar, [address] [address] Mar, Generalized abdominal pain R10.84 and Generalized anxiety disorder F41.1 [facility] [address] [place] [address] Feb, [facility] [address] [place] [address] Feb, Generalized abdominal pain R10.84 [facility] [address] [place] [address] Jan, Nausea and vomiting R11.2 [facility] [address] [place] [address], [place] [address] 18 Jan, 2017 [facility] [address] [place] [address] Jan, [facility] [address] [place] [address], [place] [address] Jan, [facility] [address] [place] [address] Jan, [facility] [address] [place] [address] 14 Jan, 2017 [facility] [address] [place] [address] 08 Jan, 2017 Mood swings F39 [facility] [address] [place] [address] 08 Jan, 2017 [facility] [address] [place] [address] Jan, [facility] [address] [place] [address] Jan, [facility] [address] [place] [address] Jan, Dysmenorrhea N94.6 [facility] [address] [place] [id number] Jan, Acquired immune deficiency syndrome B20 ; Generalized abdominal pain R10.84 and Refused influenza vaccine Z28.21 [facility] [address] [place] [address] Jan, [facility] [address] [place] [address] Dec, Generalized abdominal pain R10.84 [facility] [address] [place] [address] Dec, Dysmenorrhea N94.6 [facility] [address] [place] [address] Dec, Backache M54.9 [facility] [address] [place] [address] 19 Nov, 2016 Generalized abdominal pain R10.84 [facility] [address] [place] [address] Nov, Generalized anxiety disorder F41.1 [facility] [address] [place] [address] Nov, Dysmenorrhea N94.6 [facility] [address] [place] [address] Oct, [facility] [address] [place] [address] Oct, [facility] [address] [place] [address] Oct, [facility] [address] [place] [address] Oct, Generalized abdominal pain R10.84 [facility] [address] [id number] Oct, Acquired immune deficiency syndrome B20 ; [facility] 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 Z79.891 ; Bipolar affective disorder F31.9 ; Generalized anxiety disorder F41.1 ; Backache M54.9 ; Mixed hyperlipidemia E78.2 ; Nicotine dependence, cigarettes, uncomplicated F17.210 and Wheezing on auscultation R06.2 [facility] [address] [place] [address] Oct, Oral candidiasis B37.[address] [address] Oct, [facility] [address] [place] [address] Oct, Acute upper respiratory infection J06.[address] [address] Oct, Acute upper respiratory infection J06.9 [facility] [address] [place] [facility] [place] [address] Sep, Dysmenorrhea N94.6 [facility] [address] [place] [facility] [place] [address] Sep, Generalized anxiety disorder F41.1 [facility] [address] [place] [facility] [place] [address] Sep, Dysmenorrhea N94.6 [facility] [address] [place] [facility] [place] [address] Sep, [facility] [address] [place] [facility] [place] [address] Sep, Dysmenorrhea N94.6 [facility] [address] [place] [facility] [place] [address] Aug, Acquired immune deficiency syndrome B20 [facility] [address] [place] [facility] [place] [address] Aug, Generalized anxiety disorder F41.1 [facility] [address] [place] [facility] [place] [address] Aug, [facility] [address] [place] [facility] [place] [address] Aug, [facility] [address] [place] [facility] [place] [address] Aug, [facility] [address] [place] [address] Aug, [facility] [address] [place] [facility] [place] [address] Aug, [facility] [address] [place] [facility] [place] [address] Aug, [facility] [address] [place] [facility] [place] [address] Aug, [facility] [address] [place] [facility] [place] [address] Aug, Acute opioid withdrawal F11.23 [facility] [address] [place] [facility] [place] [address] July, Upper respiratory infection J06.[address] [address] July, Backache M54.9 [facility] [address] [id number] July, Acquired immune deficiency syndrome B20 ; [facility] 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 Z79.891 ; Hyperglycemia R73.9 ; Bipolar affective disorder F31.9 ; GERD (gastroesophageal reflux disease) K21.9 ; Backache M54.9 ; Generalized anxiety disorder F41.1 ; Mixed hyperlipidemia E78.2 ; Nicotine dependence, cigarettes, uncomplicated F17.210 and Localized edema R60.[address] [address] July, [address] [address] Jun, Backache M54.[address] [address] Jun, Chronic pain G89.[address] [address] May, Backache M54.[address] [address] May, Backache M54.[address] [address] Apr, Cough R05 [facility] [address] [id number] Apr, Acquired immune deficiency syndrome B20 ; Screening examination for sexually transmitted disease Z11.3 ; Dermatitis L30.9 and Migraine with aura and with status migrainosus, not intractable G43.[address] [address] Apr, Backache M54.[address] [address] Mar, Intrinsic asthma J45.909 ; Nausea and vomiting R11.2 and AIDS B20 [address] [address] Mar, Backache M54.[address] [address] Feb, Chronic pain G89.[address] [address] Feb, Backache M54.[address] [address] Jan, [place] eye, 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 [address] Jan, Asthma, intrinsic 493.[address] [address] Jan, [address] [address] Jan, [address] [address] Jan, Backache M54.[address] [address] Dec, Chronic pain G89.29 [facility] [address], [place] [id number] Dec, AIDS B20 ; Influenza vaccine needed Z23 ; Intrinsic asthma J45.909 ; Backache M54.9 ; Generalized anxiety disorder F41.1 ; Nicotine dependence, cigarettes, uncomplicated F17.210 and Mixed hyperlipidemia E78.[address] [address] Dec, [address] [address] Dec, Dysmenorrhea N94.[address] [address] Dec, [address] [address] Dec, Depression with anxiety F41.8 and Backache M54.[address] [address] Nov, [facility] [address] [place] [facility] [place] [address] Nov, Other chronic pain G89.29 [facility] [address] [place] [facility] [place] [address] Nov, Other chronic pain G89.29 [facility] [address] [place] [address] Nov, [facility] [address] [place] [facility] [place] [address] Nov, Generalized anxiety disorder F41.1 [facility] [address] [place] [facility] [place] [address] Nov, [facility] [address] [place] [facility] [place] [address] Nov, [facility] [address] [place] [address] Nov, Chronic pain G89.29 [facility] [address] [place] [facility] [place] [address] Oct, [facility] [address] [place] [address] Oct, Other chronic pain G89.29 [facility] [address] [place] [facility] [place] [address] Oct, [facility] [address] [place] [address] Oct, [facility] [address] [place] [address] Oct, Nausea and vomiting R11.2 [facility] [address] [place] [address] Oct, Chronic pain G89.29 [facility] [address] [place] [facility] [place] [address] Sep, [facility] [address] [place] [facility] [place] [address] Sep, Acute upper respiratory infection, unspecified J06.9 [facility] [address] [place] [facility] [place] [address] Sep, Upper respiratory infection J06.9 [facility] [address] [place] [address] Sep, [facility] [address] [place] [address] Sep, [facility] [address] [place] [address] Sep, Other chronic pain G89.29 [facility] [address] [facility] [place] [id number] Sep, AIDS B20 ; 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 ; Smoking F17.200 ; Mixed hyperlipidemia E78.2 ; Chronic pain G89.29 and Edema R60.9 [facility] [address] [place] [address] Sep, [facility] [address] [place] [address] Sep, [facility] [address] [place] [address] Aug, [facility] [address] [place] [address] Aug, Other chronic pain G89.29 [facility] [address] [place] [address] Aug, Generalized anxiety disorder F41.1 [facility] [address] [place] [address] July, Other chronic pain G89.29 [facility] [address] [place] [address] July, Other chronic pain G89.29 [facility] [address] [place] [address] July, [facility] [address] [place] [address] Jun, Generalized anxiety disorder F41.1 [facility] [address] [place] [address] Jun, [facility] [address] [place] [address] Jun, Other chronic pain G89.29 [facility] [address] [place], [place] [address], [place] [address] Jun, Rash and other nonspecific skin eruption R21 [facility] [address] [place] [facility] [place] [address] Jun, [facility] [address] [place] [facility] [place] [address] Jun, [facility] [address] [place] [facility] [place] [address] Jun, [facility] [address] [place] [facility] [place] [address] Jun, [facility] [address] [place] [facility] [place] [address] Jun, [facility] [address] [place] [facility] [place] [address] Jun, [facility] [address] [place] [facility] [place] [address] Jun, [facility] [address] [place] [facility] [place] [address] Jun, Other chronic pain G89.29 [facility] [address] [place] [facility] [place] [address] Jun, [facility] [address] [place] [facility] [place] [address] Jun, [facility] [address] [place] [facility] [place] [address] Jun, [facility] [address] [place] [facility] [place] [address] Jun, [facility] [address] [place] [facility] [place] [address] Jun, [facility] [address] [facility] [place] [address] Jun, [facility] [address] [place] [facility] [place] [address] Jun, [facility] [address] [place] [facility] [place] [address] Jun, [facility] [address] [place] [facility] [place] [address] Jun, [facility] [address] [place] [address] Jun, Nausea and vomiting R11.2 [facility] [address] [place] [address] 24 May, 2015 [facility] [address] [place] [address] May, Rash and other nonspecific skin eruption R21 [facility] [address] [place] [address] May, [facility] [address] [place] [address] May, [facility] [address] [place] [address] May, [facility] [address] [place] [address] May, [facility] [address] [place] [address] May, [facility] [address] [place] [id number] May, Acquired immune deficiency syndrome B20 ; Screening examination for sexually transmitted disease Z11.3 ; Depression with anxiety F41.8 ; Other chronic pain G89.29 and Dermatitis L30.9 [facility] [address] [place] [address] May, [facility] [address] [place] [address] May, [facility] [address] [place] [address] May, [facility] [address] [place] [address] May, Backache M54.9 [facility] [address] [place] [address] May, Rash and other nonspecific skin eruption R21 [facility] [address] [place] [address] Apr, [facility] [address] [place] [address] Apr, [facility] [address] [place] [facility] [place] [address] Apr, Other chronic pain G89.29 [facility] [address] [place] [facility] [place] [address] Apr, [facility] [address] [place] [facility] [place] [address] Apr, [facility] [address] [place] [facility] [place] [address] Apr, [facility] [address] [place] [facility] [place] [address] Apr, [facility] [address] [place] [facility] [place] [address] Apr, [facility] [address] [place] [facility] [place] [address] Apr, [facility] [address] [place] [facility] [place] [address] Apr, [facility] [address] [place] [facility] [place] [address] Apr, [facility] [address] [place] [facility] [place] [address] Apr, [facility] [address] [place] [facility] [place] [address] Apr, [facility] [address] [place] [address] Apr, Other chronic pain G89.29 ; Generalized anxiety disorder F41.1 ; Nausea R11.0 and AIDS B20 [facility] [address] [place] [address] Apr, [facility] [address] [place] [address] Apr, Generalized anxiety disorder F41.1 [facility] [address] [place] [address] Apr, [facility] [address] [place] [address] Apr, Other chronic pain G89.29 [facility] [address] [place] [facility] [place] [address] Mar, [facility] [address] [place], [place] [id number] Mar, [facility] (current) use of opiate analgesic Z79.891 ; Bipolar affective disorder F31.9 ; Smoking F17.200 ; Generalized anxiety disorder F41.1 ; Influenza vaccine administered Z23 and AIDS B20 [facility] [address] [place] [address] Mar, Other chronic pain G89.29 [facility] [address] [place] [address] Mar, Generalized anxiety disorder F41.[address] [address] Mar, [address] [address] Mar, Asymptomatic HIV infection Z21 [address] [address] Mar, Other chronic pain G89.29 [facility] [address] [place] [address] Feb, [facility] [address] [place] [address] Feb, [address] [address] Feb, [address] [address] Feb, [facility] [address] [place] [address] Feb, [facility] [address] [place] [address] Jan, Other chronic pain G89.29 and Nausea & vomiting R11.2 [facility] [address] [place] [address] Jan, Other chronic pain G89.29 [facility] [address] [place] [address] Dec, [facility] [address] [place] [address] Dec, Other chronic pain G89.29 ; Asymptomatic HIV infection Z21 ; Intrinsic asthma J45.909 ; Bipolar affective disorder F31.9 ; Noncompliance Z91.19 ; Migraine G43.909 ; Tobacco use disorder Z72.0 ; GERD (gastroesophageal reflux disease) K21.9 ; Backache M54.9 and Generalized anxiety disorder F41.[address] [address] Nov, [address] [address] Nov, [address] [address] Oct, Other chronic pain 338.[address] [address] Oct, [address] [address] Oct, Unspecified backache 724.5 and Dysphagia 787.[address] [address] Sep, Other chronic pain 338.[address] [address] Sep, [address] [address] Aug, URI (upper respiratory infection) 465.9 and Diarrhea 787.[address] [address] Aug, [address] [address] Aug, Other chronic pain 338.[address] [address] Aug, Other chronic pain 338.29 and Generalized anxiety disorder 300.[address] [address] Aug, [address] [address] July, Other chronic pain 338.29 [facility] [address] [facility] [place], [place] [id number] July, Nondependent tobacco use disorder 305.1 ; Unspecified backache 724.5 ; Other chronic pain 338.29 ; Abdominal pain, unspecified site 789.00 ; [facility] (current) use of opiate analgesic V58.69 and Acquired immune deficiency syndrome [address] [address] July, Other chronic pain 338.[address] [address] Jun, Other chronic pain 338.[address] [address] Jun, [address] [address] Jun, Other chronic pain 338.[address] [address] Jun, URI (upper respiratory infection) 465.[address] [address] Jun, Generalized anxiety disorder 300.02 and Seasonal allergies 477.[address] [address] Jun, Generalized anxiety disorder 300.[address] [address] May, Other chronic pain 338.29 [facility] [address] [place] [address] May, Other chronic pain 338.29 and Generalized anxiety disorder 300.[address] [address] Apr, Asthma, intrinsic 493.10 and Acute upper respiratory infections of other multiple sites 465.8 [facility] [address] [place] [address] 13 Apr, 2014 [facility] [address] [facility] [address] [place], [place] [id number] Apr, Depressive disorder [address] [address] Apr, Other chronic pain 338.[address] [address] Apr, [address] [address] Apr, Other chronic pain 338.[address] [address] Mar, Acute upper respiratory infections of unspecified site 465.9 [facility] [address] [place] [id number] Mar, Migraine 346.90 ; Nondependent tobacco use disorder 305.1 ; Esophageal reflux 530.81 ; Unspecified backache 724.5 ; Abdominal pain, generalized 789.07 ; Flatulence, eructation, and gas pain 787.3 ; Asymptomatic human immunodeficiency virus (HIV) infection status V08 ; Dyspepsia and other specified disorders of function of stomach 536.8 ; Nausea alone 787.02 and Asthma 493.[address] [address] Mar, Other chronic pain 338.[address] [address] Feb, Other chronic pain 338.29 and Generalized anxiety disorder 300.[address] [address] Feb, Abdominal pain, generalized 789.[address] [address] Jan, Abdominal pain, generalized 789.07 [facility] [address] [id number] Dec, [address] [address] Dec, [address] [address] Dec, Unspecified backache 724.[address] [address] Dec, [facility] [address] [facility] [place] [address] Nov, [facility] [place] [facility] [address] [facility] [address] [place] [id number] Nov, [facility] [address] [facility] [place] [id number] Nov, Bipolar disorder, unspecified 296.80 ; Abdominal pain, generalized 789.07 ; Generalized anxiety disorder 300.02 ; Nausea alone 787.02 ; Flu vaccine need V04.81 and Human immunodeficiency virus (HIV) disease 042 [facility] [address] [facility] [place] [address] Nov, [facility] [place] [facility] [address] [facility] [address] [place] [id number] Oct, [facility] [place] [facility] [address] [facility] [address] [place] [id number] Oct, [facility] [place] [facility] [address] [facility] [address] [place] [id number] Aug, [facility] [address] [facility] [place] [address] Jun, [facility] [address] [facility] [place] [address] Mar, [facility] [address] [facility] [place] [address] Oct, [facility] [address] [facility] [place] [address] July, [facility] [address] [facility] [place] [address] Jun, [facility] [address] [facility] [place] [address] May, [facility] [address] [facility] [place] [address] Mar, [facility] [address] [facility] [place] [address] Feb, [facility] [address] [facility] [place] [address] Nov, [facility] [address] [place] [address] Oct, [facility] [address] [place] [address] Aug, [facility] [address] [place] [address] May, [facility] [address] [place] [address] Mar, IMMUNIZATIONS No Known Immunizations SOCIAL HISTORY Never Assessed REASON FOR VISIT Re: RE:Re: RE:refill PLAN OF CARE VITAL SIGNS MEDICATIONS Medication Instructions Dosage Frequency Start Date End Date Duration Status Ciprodex 0.3-0.1 % Otic Twice a day 4 drops into affected ear 12h Oct, Active RESULTS No Results PROCEDURES No Known [...]
--- OUTSIDE RECORDS SUMMARY | 2018-03-22 13:57 | XMS REPORT ---
Author Author SHERICE HAYES [facility] Address [address] 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 04764717 Problem Anxiety F41.9 Active 48230299 Problem HIV (human immunodeficiency virus infection) Z21 Active 63494818 ALLERGIES No Information ENCOUNTERS Encounter Location Date Diagnosis [facility] [id number] [place] [address] Sep, [facility] [id number] [place] [address] 9525 Sep, [facility] [id number] [place] [address] Aug, Brown recluse spider bite or sting, accidental or unintentional, initial encounter T63.331A [facility] [id number] [place] [address] July, Bug bite, subsequent encounter W57.XXXD and Opioid use disorder F11.99 [facility] [id number] [place] [address] July, Insect bite, initial encounter W57.XXXA [facility] [id number] [place] [address]32 July, [facility] [id number] [place] [address] July, [facility] [address] [id number] [address] July, Opioid use disorder, severe, dependence F11.20 and Alleged drug diversion Z65.3 [facility] [id number] [place] [address] 5766 July, [facility] [id number] [place] [address]606[address] 8370 Jun, [facility] [id number] [place] [address] 023765- 3720 Apr, [facility] [id number] [place] [address] 37[address] Jan, HIV (human immunodeficiency virus infection) Z21 and Anxiety F41.9 [facility] [id number] [place] [address]147 Jan, [facility] [id number] [place] [id number] Oct, [facility] [id number] [place] [address] 38657[address] 9016 Aug, HIV (human immunodeficiency virus infection) Z21 [facility] [id number] [place] [address]25- 0856 July, HIV (human immunodeficiency virus infection) Z21 [facility] [id number] [place] [address] July, [facility] [id number] [place] [address]14[address] 6206 Apr, [facility] [id number] [place] [address] 88564[address] 1887 Mar, [facility] [id number] [place] [address] Jan, Ankle injury, right, initial encounter S99.911A and Shortness of breath R06.02 [facility] [address] [address] Dec, Hematoma T14.8 [facility] [id number] [place] [address] 95643[address] 7917 Dec, [facility] [id number] [place] [address] 413139- 8756 Sep, [facility] [id number] [place] [address] 623106- 7093 May, [facility] [id number] [place] [address] 1351 Apr, Positive PPD R76.11 [facility] [id number] [place] [address] 04578- 5508 Mar, [facility] [id number] [place] [address] 73398- 4218 Feb, Generalized abdominal pain R10.84 and Anxiety F41.9 [facility] [id number] [place] [address] 16655[address] 6301 July, [facility] [id number] [place] [address] 75768- 8891 14 Jun, 2014 [facility] [id number] [place] [address] 63988- 8912 Jun, [facility] [address] [address] Dec, [facility] [id number] [place] [address] 61431- 7589 Dec, [facility] [address] [address] Dec, [facility] [id number] [place] [address] 391040- 8773 Nov, [facility] [address] [address] Nov, [facility] [id number] [place] [address] 2546 29 Sep, 2013 [facility] [place] [facility] [address] [id number] [place] [address] 2546 29 Sep, 2013 [facility] [place] [facility] [address] [id number] [place] [address] 2546 29 Sep, 2013 [facility] [place] [facility] [address] [id number] [place] [address] 2546 29 Sep, 2013 [facility] [place] [facility] [address] [id number] [place] [address] 2546 29 Sep, 2013 [facility] [place] [facility] [address] [id number] [place] [address] 2545 29 Sep, 2013 [facility] [place] [facility] [address] [id number] [place] [address] 2546 26 Sep, 2013 [facility] [place] [facility] [address] [id number] [place] [address] 2548 26 Sep, 2013 [facility] [place] [facility] [address] [id number] [place] [address] 2544 24 Sep, 2013 [facility] [place] [facility] [address] [id number] [place] [address] 2543 24 Sep, 2013 [facility] [place] [facility] [address] [id number] [place] [address] 2549 23 Sep, 2013 [facility] [place] [facility] [address] [id number] [place] [address] 2546 23 Sep, 2013 [facility] [place] [facility] [address] [id number] [place] [address] 254 22 Sep, 2013 [facility] [place] [facility] [address] [id number] [place] [address] 2541 18 Sep, 2013 [facility] [place] [facility] [address] [id number] [place] [address] 2546 17 Sep, 2013 [facility] [place] [facility] [address] [id number] [place] [address] 2549 17 Nov, 2013 [facility] [address] [facility] [id number] [address] Nov, [facility] [id number] [address] Nov, [facility] [address], [place] [address] Nov, [facility] [address], [place] [address] 6[address] Oct, [facility] [address], [place] [address] 97[address] Oct, [facility] [address], [place] [address] May, IMMUNIZATIONS No Known Immunizations SOCIAL HISTORY Never Assessed REASON FOR VISIT Returned call PLAN OF CARE VITAL SIGNS MEDICATIONS Unknown Medications RESULTS No Results PROCEDURES No Known procedures INSTRUCTIONS MEDICATIONS ADMINISTERED No Known Medications MEDICAL (GENERAL) HISTORY Type Description Date Medical History HIV Medical History anxiety Surgical History gallbladder Surgical History tubal ligation Surgical History hysterectomy, total with bilateral salpingo-oophorectomy (BSO )
--- OUTSIDE RECORDS SUMMARY | 2018-03-22 13:57 | XMS REPORT ---
Author Author SHERICE HAYES [facility] Address [address] 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 26629149 Problem Anxiety F41.9 Active 88492434 Problem HIV (human immunodeficiency virus infection) Z21 Active 49609630 ALLERGIES No Known Allergies ENCOUNTERS Encounter Location Date Diagnosis [facility] [id number] [place] [address]806- 3296 Sep, [facility] [id number] [place] [address] 00994- 7115 Sep, [facility] [id number] [place] [address]4537 [address]3225 Aug, Brown recluse spider bite or sting, accidental or unintentional, initial encounter T63.331A [facility] [id number] [place] [address] 68736- 7401 July, Bug bite, subsequent encounter W57.XXXD and Opioid use disorder F11.99 [facility] [id number] [place] [address]692 [address]5044 July, Insect bite, initial encounter W57.XXXA [facility] [id number] [place] [address] 46621- 5473 July, [facility] [id number] [place] [address] 16776- 8939 July, [facility] [id number] [place] [address] 02721- 0926 July, Opioid use disorder, severe, dependence F11.20 and Alleged drug diversion Z65.3 [facility] [id number] [place] [address] 97083- 8626 July, [facility] [id number] [place] [address] 25770- 2259 Jun, [facility] [id number] [place] [address] [id number]- 4589 Apr, [facility] [id number] [place] [address] 37833- 4640 Jan, HIV (human immunodeficiency virus infection) Z21 and Anxiety F41.9 [facility] [id number] [place] [address] 06203- 2818 Jan, [facility] [id number] [place] [address] [id number] Oct, [facility] [id number] [place] [address] 27560- 4947 Aug, HIV (human immunodeficiency virus infection) Z21 [facility] [id number] [place] [address] 54544- 5086 July, HIV (human immunodeficiency virus infection) Z21 [facility] [id number] [place] [address] 90539- 4806 July, [facility] [id number] [place] [address] 79517- 9480 Apr, [facility] [id number] [place] [address] 70781- 8049 Mar, [facility] [id number] [place] [address]37 -2749 Jan, Ankle injury, right, initial encounter S99.911A and Shortness of breath R06.02 [facility] [id number] [place] [address] 03240 -7422 Dec, Hematoma T14.8 [facility] [id number] [place] [address] 372874- 4265 Dec, [facility] [id number] [place] [address] 16470- 254 Sep, [facility] [id number] [place] [address] 746817- 1824 May, [facility] [id number] [place] [address] 05608- 1565 Apr, Positive PPD R76.11 [facility] [id number] [place] [address] 40822- 3779 Mar, [facility] [id number] [place] [address] 18250- 4741 Feb, Generalized abdominal pain R10.84 and Anxiety F41.9 [facility] [id number] [place] [address] 33202- 6672 July, [facility] [id number] [place] [address] 26060- 1744 14 Jun, 2014 [facility] [id number] [place] [address] 08209- 3172 Jun, [facility] [address] [address]- 3074 Dec, [facility] [address], [place] [address]- 4785 Dec, [facility] [address] [address] Dec, [facility] [id number] [place] [address] 783602- 2618 Nov, [facility] [address] [address]- 4413 Nov, [facility] [address] [place] [address] 2546 29 Sep, 2013 [facility] [place] [facility] [address] [id number] [place] [address] 2546 29 Sep, 2013 [facility] [place] [facility] [address] [id number] [place] [address] 2546 29 Sep, 2013 [facility] [place] [facility] [address] [id number] [place] [address] 2546 29 Sep, 2013 [facility] [place] [facility] [address] [id number] [place] [address] 2546 29 Sep, 2013 [facility] [place] [facility] [address] [id number] [place] [address] 2547 29 Sep, 2013 [facility] [place] [facility] [address] [id number] [place] [address] 254 26 Sep, 2013 [facility] [place] [facility] [address] [id number] [place] [address] 2547 26 Sep, 2013 [facility] [place] [facility] [address] [id number] [place] [address] 254 24 Sep, 2013 [facility] [place] [facility] [address] [id number] [place] [address] 254 24 Sep, 2013 [facility] [place] [facility] [address] [id number] [place] [address] 2541 23 Sep, 2013 [facility] [place] [facility] [address] [id number] [place] [address] 2546 23 Sep, 2013 [facility] [place] [facility] [address] [id number] [place] [address]- 254 22 Sep, 2013 [facility] [place] [facility] [address] [id number] [place] [address] 2549 18 Sep, 2013 [facility] [place] [facility] [address] [id number] [place] [address] 2546 17 Sep, 2013 [facility] [place] [facility] [address] [id number] [place] [address] 2549 Nov, [facility] [address] [facility] [id number] [address]- [address]24 Nov, [facility] [address] [facility] [id number] [address]- 3873 Nov, [facility] [id number]- 9777 Nov, [facility] [address] 1405 Oct, [facility] [id number] 9683 Oct, [facility] [address] [address] 9547 May, IMMUNIZATIONS No Known Immunizations SOCIAL HISTORY Never Assessed REASON FOR VISIT Pain Management, PT has concerns with left leg swelling. PT was seen Sat in out walk in[facility] PLAN OF CARE Activity Details Follow Up prn Reason: VITAL SIGNS Height 65.5 in 2017-07-27 Weight 136.0 lbs 2017-07-27 Temperature 98.4 degrees Fahrenheit 2017-07-27 Heart Rate 68 bpm 2017-07-27 Respiratory Rate 18 2017-07-27 BMI 22.28 kg/m2 2017-07-27 Blood pressure systolic 126 mmHg 2017-07-27 Blood pressure diastolic 62 mmHg 2017-07-27 MEDICATIONS Medication Instructions Dosage Frequency Start Date End Date Duration Status Dronabinol 10 mg Orally 3 times a day 1 capsule 8h Active Zofran 8 MG Orally every 8 hours prn 1 tablet Active Stribild [phone] mg take 1 tablet by oral route once daily with food Nov, Active ProAir HFA 108 (90 Base) MCG/ACT Inhalation every 6 hrs 2 puffs as needed 6h Active Zithromax Z-Riky 250 MG Orally Once a day 1 tablet a day 24h Active Omeprazole 40 mg Orally Once a day 1 capsule 24h Active Vistaril 25 MG Orally every 8 hrs 1 capsule as needed 8h July, 10 days Active Methocarbamol 750 MG Orally at bedtime 1 tablet Active Tramadol HCl 50 MG Orally every 6 hrs 1 tablet as needed 6h Active RESULTS No Results PROCEDURES No Known procedures INSTRUCTIONS MEDICATIONS ADMINISTERED No Known Medications MEDICAL (GENERAL) HISTORY Type Description Date Medical History HIV Medical History anxiety Surgical History gallbladder Surgical History tubal ligation Surgical History hysterectomy, total with bilateral salpingo-oophorectomy (BSO )
--- OUTSIDE RECORDS SUMMARY | 2018-03-22 13:58 | XMS REPORT ---
Author Author Dulce Herrera [facility] Address [address] [place], [place] [id number] Care Team Providers Care Business Integration Analyst Name Role Phone Dulce Herrera Unavailable PROBLEMS Type Condition ICD9-CM Code OUP26-OU Code Onset Dates Condition Status SNOMED Code Problem Bipolar affective disorder F31.9 Active 15976159 Problem Nicotine dependence, cigarettes, uncomplicated F17.210 Active 20875904 Problem halfway (current) use of opiate analgesic Z79.891 Active 467113426 Problem Non-intractable cyclical vomiting with nausea G43.A0 Active 26654399 Problem Poor appetite R63.0 Active 56228027 Problem Wheezing on auscultation R06.2 Active 409914768 Problem Acquired immune deficiency syndrome B20 Active 75138406 Problem Other chronic pain G89.29 Active 77543456 Problem Mood swings F39 Active 83428701 Problem Generalized anxiety disorder F41.1 Active 49274959 Problem GERD (gastroesophageal reflux disease) K21.9 Active 816576435 Problem Mixed hyperlipidemia E78.2 Active 681160588 Problem Intrinsic asthma J45.909 Active 873073444 Problem Migraine G43.909 Active 49786274 Problem Backache M54.9 Active 867382625 ALLERGIES No Information ENCOUNTERS Encounter Location Date Diagnosis [address] [address] Oct, Upper respiratory infection J06.9 and Backache M54.[address] [address] Oct, Generalized anxiety disorder F41.1 and Backache M54.[address] [address] Sep, Acquired immune deficiency syndrome B20 [address] [address] Sep, [facility] [address] [place] [address] [place] [id number] Sep, Acquired immune deficiency syndrome B20 ; Intrinsic asthma J45.909 and Open wound T14.8XXA [facility] [address] [place] [address], [place] [address] Sep, [facility] [address] [place] [address] Sep, [facility] [address] [place] [address] Sep, [facility] [address] [place] [address] Sep, Poor appetite R63.0 [facility] [address] [place] [address] Sep, Backache M54.9 [facility] [address] [place] [address] Sep, [facility] [address] [place] [address] Aug, Generalized anxiety disorder F41.1 [facility] [address] [place] [address] Aug, [facility] [address] [place] [address] Aug, Backache M54.9 [facility] [address] [place] [address] Aug, [facility] [address] [place] [address] Aug, Spider bite T63.301A [facility] [address] [place] [address] Aug, [facility] [address] [place] [address] Aug, [facility] [address] [place] [address] Aug, [facility] [address] [place] [address] July, [facility] [address] [place] [address] July, [facility] [address] [place] [facility] [place] [address] July, [facility] [address] [place] [address] July, [facility] [address] [place] [address] July, [facility] [address] [place] [address] July, Poor appetite R63.0 and Backache M54.9 [facility] [address] [place] [address] July, [facility] [address] [place] [address] July, [facility] [address] [place] [address] July, [facility] [address] [place] [address] July, [facility] [address] [place] [address] July, [facility] [address] [place] [address] July, Nausea and vomiting R11.2 [facility] [address] [place] [address] July, [facility] [address] [place] [address] July, [facility] [address] [place] [address] July, [facility] [address] [place] [address] July, [facility] [address] [place] [address] July, [facility] [address] [place] [address] July, Other chronic pain G89.29 [facility] [address] [place] [address] July, [facility] [address] [place] [address] July, GERD (gastroesophageal reflux disease) K21.9 [facility] [address] [place] [address] July, [facility] [address] [place] [address] Jun, [facility] [address] [place] [address] Jun, [facility] [address] [place] [address] Jun, [facility] [address] [place] [address] Jun, [facility] [address] [place] [address] Jun, Other chronic pain G89.29 [facility] [address] [place] [address] Jun, [facility] [address] [place] [address] Jun, [facility] [address] [place] [address] Jun, [facility] [address] [place] [address] Jun, [facility] [address] [place] [address] Jun, [facility] [address] [place] [address] Jun, Generalized anxiety disorder F41.1 ; Other chronic pain G89.29 and Non-intractable cyclical vomiting with nausea G43.A0 [facility] [address] [place] [id number] Jun, Acquired immune deficiency syndrome B20 ; halfway ( current) use of opiate analgesic Z79.891 ; Nicotine dependence, cigarettes, uncomplicated F17.210 ; Lower respiratory infection J22 ; Poor appetite R63.0 ; Other chronic pain G89.29 ; Generalized anxiety disorder F41.1 and Need for tetanus booster Z23 [facility] [address] [place] [address] Jun, [facility] [address] [place] [address] May, Generalized abdominal pain R10.[address] [address] May, [address] [address] Apr, AIDS B20 ; Generalized abdominal pain R10.84 and Dysmenorrhea N94.[address] [address] Apr, Acute URI J06.[address] [address] Apr, [address] [address] Apr, 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 and Migraine G43.[address] [address] Mar, Dysmenorrhea N94.[address] [address] Mar, [address] [address] Mar, Generalized anxiety disorder F41.1 and Generalized abdominal pain R10.[address] [address] Mar, [address] [address] Mar, Generalized abdominal pain R10.84 and Generalized anxiety disorder F41.[address] [address] Feb, [address] [address] Feb, Generalized abdominal pain R10.84 [facility] [address] [place] [address] Jan, Nausea and vomiting R11.2 [facility] [address] [place] [address] 18 Jan, 2017 [facility] [address] [place] [address] 16 Jan, 2017 [facility] [address] [place] [address] Jan, [facility] [address] [place] [address] Jan, [facility] [address] [place] [address] Jan, [facility] [address] [place] [address] Jan, Mood swings F39 [facility] [address] [place] [address] Jan, [facility] [address] [place] [address] Jan, [facility] [address] [place] [address] Jan, [facility] [address] [place] [address] Jan, Dysmenorrhea N94.6 [facility] [address] [place] [phone] Jan, Acquired immune deficiency syndrome B20 ; Generalized abdominal pain R10.84 and Refused influenza vaccine Z28.21 [facility] [address] [place] [address] Jan, [facility] [address] [place] [address] Dec, Generalized abdominal pain R10.84 [facility] [address] [place] [address] Dec, Dysmenorrhea N94.6 [facility] [address] [place] [address] Dec, Backache M54.9 [facility] [address] [place] [address] Nov, Generalized abdominal pain R10.[address] [address] Nov, Generalized anxiety disorder F41.[address] [address] Nov, Dysmenorrhea N94.[address] [address] Oct, [address] [address] Oct, [address] [address] Oct, [address] [address] Oct, Generalized abdominal pain R10.84 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 ; Bipolar affective disorder F31.9 ; Generalized anxiety disorder F41.1 ; Backache M54.9 ; Mixed hyperlipidemia E78.2 ; Nicotine dependence, cigarettes, uncomplicated F17.210 and Wheezing on auscultation R06.[address] [address] Oct, Oral candidiasis B37.[address] [address] Oct, [address] [address] Oct, Acute upper respiratory infection J06.[address] [address] Oct, Acute upper respiratory infection J06.[address] [address] Sep, Dysmenorrhea N94.[address] [address] Sep, Generalized anxiety disorder F41.1 [facility] [address] [place] [address] Sep, Dysmenorrhea N94.6 [facility] [address] [place] [address] Sep, [facility] [address] [place] [address] Sep, Dysmenorrhea N94.6 [facility] [address] [place] [address] Aug, Acquired immune deficiency syndrome B20 [facility] [address] [place] [address] Aug, Generalized anxiety disorder F41.1 [facility] [address] [place] [address] Aug, [facility] [address] [place] [address] Aug, [facility] [address] [place] [address] Aug, [facility] [address] [place] [address] Aug, [facility] [address] [place] [address] Aug, [facility] [address] [place] [address] Aug, [facility] [address] [place] [address] Aug, [facility] [address] [place] [address] Aug, Acute opioid withdrawal F11.23 [facility] [address] [place] [address] July, Upper respiratory infection J06.9 [facility] [address] [place] [address] July, Backache M54.9 [facility] [address] [place] [phone] July, Acquired immune deficiency syndrome B20 ; 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 ; Hyperglycemia R73.9 ; Bipolar affective disorder F31.9 ; GERD (gastroesophageal reflux disease) K21.9 ; Backache M54.9 ; Generalized anxiety disorder F41.1 ; Mixed hyperlipidemia E78.2 ; Nicotine dependence, cigarettes, uncomplicated F17.210 and Localized edema R60.[address] [address] July, [address] [address] Jun, Backache M54.[address] [address] Jun, Chronic pain G89.[address] [address] May, Backache M54.[address] [address] May, Backache M54.[address] [address] Apr, Cough R05 [facility] [address] [place] [id number] Apr, Acquired immune deficiency syndrome B20 ; Screening examination for sexually transmitted disease Z11.3 ; Dermatitis L30.9 and Migraine with aura and with status migrainosus, not intractable G43.[address] [address] Apr, Backache M54.[address] [address] Mar, Intrinsic asthma J45.909 ; Nausea and vomiting R11.2 and AIDS B20 [address] [address] Mar, Backache M54.[address] [address] Feb, Chronic pain G89.[address] [address] Feb, Backache M54.9 [facility] [address] [place] [address] Jan, [place] eye, 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 [facility] [address] [place] [address] Jan, Asthma, intrinsic 493.10 [facility] [address] [place] [address] Jan, [facility] [address] [place] [address] Jan, [facility] [address] [place] [address] Jan, Backache M54.[address] [address] Dec, Chronic pain G89.29 [facility] [address] [place] [id number] Dec, AIDS B20 ; Influenza vaccine needed Z23 ; Intrinsic asthma J45.909 ; Backache M54.9 ; Generalized anxiety disorder F41.1 ; Nicotine dependence, cigarettes, uncomplicated F17.210 and Mixed hyperlipidemia E78.[address] [address] Dec, [address] [address] Dec, Dysmenorrhea N94.[address] [address] Dec, [address] [address] Dec, Depression with anxiety F41.8 and Backache M54.[address] [address] Nov, [address] [address] Nov, Other chronic pain G89.[address] [address] 18 Nov, 2015 Other chronic pain G89.[address] [address] Nov, [facility] [address] [place] [address] Nov, Generalized anxiety disorder F41.1 [facility] [address] [place] [address] Nov, [facility] [address] [place] [address] Nov, [facility] [address] [place] [address] Nov, Chronic pain G89.29 [facility] [address] [place] [address] Oct, [facility] [address] [place] [address] Oct, Other chronic pain G89.29 [facility] [address] [place] [address] Oct, [facility] [address] [place] [address] Oct, [facility] [address] [place] [address] Oct, Nausea and vomiting R11.2 [facility] [address] [place] [address] Oct, Chronic pain G89.29 [facility] [address] [place] [address] Sep, [facility] [address] [place] [address] Sep, Acute upper respiratory infection, unspecified J06.9 [facility] [address] [place] [address] Sep, Upper respiratory infection J06.9 [facility] [address] [place] [address] Sep, [facility] [address] [place] [address] Sep, [facility] [address] [place] [address] Sep, Other chronic pain G89.29 [facility] [address] [facility] [address] [place] [id number] Sep, AIDS B20 ; halfway (current) use of opiate analgesic Z79.891 ; Smoking F17.200 ; Mixed hyperlipidemia E78.2 ; Chronic pain G89.29 and Edema R60.9 [facility] [address] [place] [address] Sep, [facility] [address] [place] [address] Sep, [facility] [address] [place] [address] Aug, [facility] [address] [place] [address] Aug, Other chronic pain G89.29 [facility] [address] [place] [address] Aug, Generalized anxiety disorder F41.1 [facility] [address] [place] [address] July, Other chronic pain G89.29 [facility] [address] [place] [address] July, Other chronic pain G89.29 [facility] [address] [place] [address] July, [facility] [address] [place] [address] Jun, Generalized anxiety disorder F41.1 [facility] [address] [place] [address] Jun, [facility] [address] [place] [address] Jun, Other chronic pain G89.29 [facility] [address] [place] [address] Jun, Rash and other nonspecific skin eruption R21 [facility] [address] [place] [address] Jun, [facility] [address] [place] [address] Jun, [facility] [address] [place] [address] Jun, [facility] [address] [place] [address] Jun, [facility] [address] [place] [address] Jun, [facility] [address] [place] [address] Jun, [facility] [address] [place] [address] Jun, [facility] [address] [place] [address] Jun, Other chronic pain G89.29 [facility] [address] [place] [address] Jun, [facility] [address] [place] [address] Jun, [facility] [address] [place] [address] Jun, [facility] [address] [place] [address] Jun, [facility] [address] [place] [address] Jun, [facility] [address] [place] [address] Jun, [facility] [address] [place] [address] Jun, [facility] [address] [place] [address] Jun, [facility] [address] [place] [address] Jun, [facility] [address] [place] [address] Jun, Nausea and vomiting R11.2 [facility] [address] [place] [address] May, [facility] [address] [place] [address] May, Rash and other nonspecific skin eruption R21 [facility] [address] [place] [address] May, [facility] [address] [place] [address] May, [facility] [address] [place] [address] May, [facility] [address] [place] [address] May, [facility] [address] [place] [address] May, [facility] [address] [place] [id number] May, Acquired immune deficiency syndrome B20 ; Screening examination for sexually transmitted disease Z11.3 ; Depression with anxiety F41.8 ; Other chronic pain G89.29 and Dermatitis L30.9 [facility] [address] [place] [address] May, [facility] [address] [place] [address] May, [facility] [address] [place] [address] May, [facility] [address] [place] [address] May, Backache M54.9 [facility] [address] [place] [address] May, Rash and other nonspecific skin eruption R21 [facility] [address] [place] [address] Apr, [facility] [address] [place] [address] Apr, [facility] [address] [place] [address] Apr, Other chronic pain G89.29 [facility] [address] [place] [address] Apr, [facility] [address] [place] [address] Apr, [facility] [address] [place] [address] Apr, [facility] [address] [place] [address] Apr, [facility] [address] [place] [address] Apr, [facility] [address] [place] [address] Apr, [facility] [address] [place] [address] Apr, [facility] [address] [place] [address] Apr, [facility] [address] [place] [address] Apr, [facility] [address] [place] [address] Apr, [facility] [address] [place] [address] Apr, Other chronic pain G89.29 ; Generalized anxiety disorder F41.1 ; Nausea R11.0 and AIDS B20 [facility] [address] [place] [address] Apr, [facility] [address] [place] [address] Apr, Generalized anxiety disorder F41.1 [facility] [address] [place] [address] Apr, [facility] [address] [place] [address] Apr, Other chronic pain G89.29 [facility] [address] [place] [address] Mar, 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 ; Bipolar affective disorder F31.9 ; Smoking F17.200 ; Generalized anxiety disorder F41.1 ; Influenza vaccine administered Z23 and AIDS B20 [facility] [address] [place] [address] Mar, Other chronic pain G89.29 [facility] [address] [place] [address] Mar, Generalized anxiety disorder F41.1 [facility] [address] [place] [address] Mar, [facility] [address] [place] [address] Mar, Asymptomatic HIV infection Z21 [facility] [address] [place] [address] Mar, Other chronic pain G89.[address] [address] Feb, [address] [address] Feb, [facility] [address] [place] [address] Feb, [facility] [address] [place] [address] Feb, [facility] [address] [place] [address] Feb, [facility] [address] [place] [address] Jan, Other chronic pain G89.29 and Nausea & vomiting R11.[address] [address] Jan, Other chronic pain G89.29 [facility] [address] [place] [address] Dec, [facility] [address] [place] [address] Dec, Other chronic pain G89.29 ; Asymptomatic HIV infection Z21 ; Intrinsic asthma J45.909 ; Bipolar affective disorder F31.9 ; Noncompliance Z91.19 ; Migraine G43.909 ; Tobacco use disorder Z72.0 ; GERD (gastroesophageal reflux disease) K21.9 ; Backache M54.9 and Generalized anxiety disorder F41.1 [facility] [address] [place] [address] Nov, [facility] [facility] [address] [place] [address] Nov, [facility] [address] [place] [address] Oct, Other chronic pain 338.[address] [address] Oct, [address] [address] Oct, Unspecified backache 724.5 and Dysphagia 787.[address] [address] Sep, Other chronic pain 338.[address] [address] Sep, [address] [address] Aug, URI (upper respiratory infection) 465.9 and Diarrhea 787.[address] [address] Aug, [address] [address] Aug, Other chronic pain 338.[address] [address] Aug, Other chronic pain 338.29 and Generalized anxiety disorder 300.[address] [address] Aug, [address] [address] July, Other chronic pain 338.29 [facility] [address] [place] [id number] July, Nondependent tobacco use disorder 305.1 ; Unspecified backache 724.5 ; Other chronic pain 338.29 ; Abdominal pain, unspecified site 789.00 ; halfway (current) use of opiate analgesic V58.69 and Acquired immune deficiency syndrome 042 [facility] [address] [place] [address] July, Other chronic pain 338.29 [facility] [address] [place] [address] Jun, Other chronic pain 338.29 [facility] [address] [place] [address] Jun, [facility] [address] [place] [address] Jun, Other chronic pain 338.29 [facility] [address] [place] [address] Jun, URI (upper respiratory infection) 465.9 [facility] [address] [place] [address] Jun, Generalized anxiety disorder 300.02 and Seasonal allergies 477.9 [facility] [address] [place] [address] Jun, Generalized anxiety disorder 300.02 [facility] [address] [place] [address] May, Other chronic pain 338.29 [facility] [address] [place] [address] May, Other chronic pain 338.29 and Generalized anxiety disorder 300.02 [facility] [address] [place] [address] Apr, Asthma, intrinsic 493.10 and Acute upper respiratory infections of other multiple sites 465.8 [facility] [address] [place] [address] Apr, [facility] [address] [facility] [address] [place] [id number] Apr, Depressive disorder 311 [facility] [address] [place] [address] Apr, Other chronic pain 338.29 [facility] [address] [place] [address] Apr, [facility] [address] [place] [address] Apr, Other chronic pain 338.[address] [address] Mar, Acute upper respiratory infections of unspecified site 465.9 [facility] [address] [place] [id number] Mar, Migraine 346.90 ; Nondependent tobacco use disorder 305.1 ; Esophageal reflux 530.81 ; Unspecified backache 724.5 ; Abdominal pain, generalized 789.07 ; Flatulence, eructation, and gas pain 787.3 ; Asymptomatic human immunodeficiency virus (HIV) infection status V08 ; Dyspepsia and other specified disorders of function of stomach 536.8 ; Nausea alone 787.02 and Asthma 493.[address] [address] Mar, Other chronic pain 338.[address] [address] Feb, Other chronic pain 338.29 and Generalized anxiety disorder 300.[address] [address] Feb, Abdominal pain, generalized 789.[address] [address] Jan, Abdominal pain, generalized 789.07 [facility] [address] [place] [id number] Dec, [address] [address] Dec, [address] [address] Dec, Unspecified backache 724.[address] [address] Dec, [address] [address] Nov, [facility] [address] [facility] [address] [place] [id number] Nov, [facility] [address] [place] [id number] Nov, Bipolar disorder, unspecified 296.80 ; Abdominal pain, generalized 789.07 ; Generalized anxiety disorder 300.02 ; Nausea alone 787.02 ; Flu vaccine need V04.81 and Human immunodeficiency virus (HIV) disease 042 [facility] [address] [place] [facility] [place] [address] Nov, [facility] [place] [facility] [address] [facility] [address] [place] [id number] Oct, [facility] [place] [facility] [address] [facility] [address] [place] [id number] Oct, [facility] [address] [facility] [address] [place] [id number] Aug, [facility] [address] [place] [address] Jun, [facility] [address] [place] [address] Mar, [facility] [address] [place] [address] Oct, [facility] [address] [place] [address] July, [facility] [address] [place] [address] Jun, [facility] [address] [place] [address] May, [facility] [address] [place] [address] Mar, [facility] [address] [place] [address] Feb, [facility] [address] [place] [address] Nov, [facility] [address] [place] [address] Oct, [facility] [address] [place] [address] Aug, [facility] [address] [place] [address] May, [facility] [address] [place] [address] Mar, IMMUNIZATIONS No Known Immunizations SOCIAL HISTORY Never Assessed REASON FOR VISIT Re: RE:Re: RE:refill PLAN OF CARE VITAL SIGNS MEDICATIONS Medication Instructions Dosage Frequency Start Date End Date Duration Status CVS Omeprazole 20 MG Orally Once a [...] 1 tablet 24h Apr, 30 days Active Omeprazole 40 MG Orally Once a day 1 capsule 24h July, 30 day(s ) Active Montelukast Sodium 10 MG Orally Once a day 1 tablet in the evening 24h July, 30 day(s) Active Xanax 1 MG Orally once daily at bedtime 1 tablet as needed Sep, 30 days Active Methocarbamol 750 TAKE ONE TABLET BY MOUTH EVERY 8 HOURS FOR 10 DAYS 10 Active Diflucan 150 Orally Once a day 1 tablet 24h 5 Active Zofran 4 MG Orally every 6 hours prn TAKE ONE TABLET BY MOUTH EVERY 8 HOURS FOR 10 DAYS 30 days Active Zithromax Z-Riky 250 MG Orally Once a day 1 tablet 24h May, 30 days Active Hydrochlorothiazide 25 MG Orally Once a day 1 tablet in the morning 24h July, 30 day(s) Active Stribild [phone] MG Orally Once a day 1 tablet 24h Aug, 30 days Active Promethazine HCl 25 MG Orally three times a day 1 tablet as needed 8h 20 Mar, 2016 30 day(s) Active Tramadol HCl 50 MG Orally every 12 hrs 2 tablet as needed 12h Sep, 30 days Active Marinol 10 MG Orally three times a day 1 capsule before lunch and supper 8h Jun, 30 days Active RESULTS No Results [...]
--- OUTSIDE RECORDS SUMMARY | 2018-03-22 13:58 | XMS REPORT ---
Author Author SHERICE HAYES [facility] Address [address] 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 [id number] [place] [address] Sep, [facility] [id number] [place] [address] 4668 Sep, [facility] [id number] [place] [address] Aug, Brown recluse spider bite or sting, accidental or unintentional, initial encounter T63.331A [facility] [id number] [place] [address] July, Bug bite, subsequent encounter W57.XXXD and Opioid use disorder F11.99 [facility] [id number] [place] [address] July, Insect bite, initial encounter W57.XXXA [facility] [id number] [place] [address] 7658 July, [facility] [id number] [place] [address] July, [facility] [id number] [address] July, Opioid use disorder, severe, dependence F11.20 and Alleged drug diversion Z65.3 [facility] [id number] [place] [address] July, [facility] [address] [place] [address] 40633[address] 4231 Jun, [facility] [id number] [place] [address] 593554- 1340 Apr, [facility] [id number] [place] [address]3020[address] 06[address] Jan, HIV (human immunodeficiency virus infection) Z21 and Anxiety F41.9 [facility] [id number] [place] [address] Jan, [facility] [id number] [place] [id number] Oct, [facility] [address] [place] [address] 0971 Aug, HIV (human immunodeficiency virus infection) Z21 [facility] [id number] [place] [address]78[address] 9346 July, HIV (human immunodeficiency virus infection) Z21 [facility] [address] [place] [address] 31466[address] 2866 July, [facility] [id number] [place] [address] 82227[address] 4545 Apr, [facility] [address] [place] [address] 77959[address] 7317 Mar, [facility] [address] [place] [address] Jan, Ankle injury, right, initial encounter S99.911A and Shortness of breath R06.02 [facility] [address] [address] Dec, Hematoma T14.8 [facility] [address] [place] [address] 05770[address] 8357 Dec, [facility] [id number] [place] [address] 671379- 3163 Sep, [facility] [id number] [place] [address] 444087- 7775 May, [facility] [id number] [place] [address] 12690- 2816 Apr, Positive PPD R76.11 [facility] [id number] [place] [address] 46682[address] 7309 Mar, [facility] [id number] [place] [address] 81842- 8391 Feb, Generalized abdominal pain R10.84 and Anxiety F41.9 [facility] [id number] [place] [address] 88036- 5307 July, [facility] [id number] [place] [address] 29307- 4453 14 Jun, 2014 [facility] [id number] [place] [address] 44522[address] 9339 Jun, [facility] [address] [address] Dec, [facility] [address] [place] [address] 39731- 4620 Dec, [facility] [address] [address] Dec, [facility] [id number] [place] [address] 248825- 5317 Nov, [facility] [address] [address] Nov, [facility] [id number] [place] [address] 2546 29 Sep, 2013 [facility] [place] [facility] [address] [id number] [place] [address] 2546 29 Sep, 2013 [facility] [place] [facility] [address] [id number] [place] [address] 2546 29 Sep, 2013 [facility] [place] [facility] [address] [id number] [place] [address] 2546 29 Sep, 2013 [facility] [place] [facility] [address] [id number] [place] [address] 2546 29 Sep, 2013 [facility] [place] [facility] [address] [id number] [place] [address] 2548 29 Sep, 2013 [facility] [place] [facility] [address] [id number] [place] [address] 2546 26 Sep, 2013 [facility] [place] [facility] [address] [id number] [place] [address] 2547 26 Sep, 2013 [facility] [place] [facility] [address] [id number] [place] [address] 2547 24 Sep, 2013 [facility] [place] [facility] [address] [id number] [place] [address] 2543 24 Sep, 2013 [facility] [place] [facility] [address] [id number] [place] [address] 2545 23 Sep, 2013 [facility] [place] [facility] [address] [id number] [place] [address] 2546 23 Sep, 2013 [facility] [place] [facility] [address] [id number] [place] [address] 2541 22 Sep, 2013 [facility] [place] [facility] [address] [id number] [place] [address] 2547 18 Sep, 2013 [facility] [place] [facility] [address] [id number] [place] [address] 2546 17 Sep, 2013 [facility] [place] [facility] [address] [id number] [place] [address] 2540 17 Nov, 2013 [facility] [address] [facility] [id number] [address] Nov, [facility] [id number] [address] Nov, [facility] [address] [address] Nov, [facility] [address] [address] 6[address] Oct, [facility] [address] [address] Oct, [facility] [id number] [address] May, IMMUNIZATIONS No Known Immunizations SOCIAL HISTORY Never Assessed REASON FOR VISIT med PLAN OF CARE VITAL SIGNS MEDICATIONS Medication Instructions Dosage Frequency Start Date End Date Duration Status Vistaril 25 MG Orally every 8 hrs 1 capsule as needed 8h July, 10 days Active RESULTS No Results PROCEDURES No Known procedures INSTRUCTIONS MEDICATIONS ADMINISTERED No Known Medications MEDICAL (GENERAL) HISTORY Type Description Date Medical History HIV Medical History anxiety Surgical History gallbladder Surgical History tubal ligation Surgical History hysterectomy, total with bilateral salpingo-oophorectomy (BSO )
--- OUTSIDE RECORDS SUMMARY | 2018-03-22 13:58 | XMS REPORT ---
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 77167161 Problem Anxiety F41.9 Active 67792764 Problem HIV (human immunodeficiency virus infection) Z21 Active 03773077 ALLERGIES No Information ENCOUNTERS Encounter Location Date Diagnosis [facility] [id number] [place] [address] 53472- 0339 Sep, [facility] [id number] [place] [address] 43023- 8937 Sep, [facility] [id number] [place] [address]183 [address] Aug, Brown recluse spider bite or sting, accidental or unintentional, initial encounter T63.331A [facility] [id number] [place] [address] 66892- 4976 July, Bug bite, subsequent encounter W57.XXXD and Opioid use disorder F11.99 [facility] [id number] [place] [address] 24887 [address]1656 July, Insect bite, initial encounter W57.XXXA [facility] [id number] [place] [address] 14472- 4753 July, [facility] [id number] [place] [address] 57096- 0316 July, [facility] [id number] [address] July, Opioid use disorder, severe, dependence F11.20 and Alleged drug diversion Z65.3 [facility] [id number] [place] [address] 16486- 8726 July, [facility] [id number] [place] [address] 03639- 8326 Jun, [facility] [id number] [place] [address] 16399- 2416 Apr, [facility] [id number] [place] [address] 35010- 9323 Jan, HIV (human immunodeficiency virus infection) Z21 and Anxiety F41.9 [facility] [id number] [place] [address] 21758- 8841 Jan, [facility] [id number] [place] [address] [id number] Oct, [facility] [id number] [place] [address] 68079- 2313 Aug, HIV (human immunodeficiency virus infection) Z21 [facility] [id number] [place] [address] 52332- 6016 July, HIV (human immunodeficiency virus infection) Z21 [facility] [id number] [place] [address] 97577- 1356 July, [facility] [id number] [place] [address] 28489- 2094 Apr, [facility] [id number] [place] [address] 33287- 2144 Mar, [facility] [id number] [place] [address] 93486 -4204 Jan, Ankle injury, right, initial encounter S99.911A and Shortness of breath R06.02 [facility] [id number] [place] [address] 47260 -8744 Dec, Hematoma T14.8 [facility] [id number] [place] [address] 89540- 9642 Dec, [facility] [id number] [place] [address] 653173- 4636 Sep, [facility] [id number] [place] [address] 46022- 2295 May, [facility] [id number] [place] [address] 51506- 8408 Apr, Positive PPD R76.11 [facility] [id number] [place] [address] 91527- 5546 Mar, [facility] [id number] [place] [address] 29483- 2231 Feb, Generalized abdominal pain R10.84 and Anxiety F41.9 [facility] [id number] [place] [address] 43685- 7931 July, [facility] [id number] [place] [address] 10181- 5738 14 Jun, 2014 [facility] [id number] [place] [address] 05603- 1797 Jun, [facility] [address], [place] [address]- 3539 Dec, [facility] [id number] [place] [address] 39712- 9238 Dec, [facility] [address], [place] [address]- 9583 Dec, [facility] [id number] [place] [address] 21172- 9441 Nov, [facility] [address], [place] [address]- 3858 Nov, [facility] [id number] [place] [address]- 1475 29 Sep, 2013 [facility] [place] [facility] [address] [id number] [place] [address] 2546 29 Sep, 2013 [facility] [place] [facility] [address] [id number] [place] [address] 2546 29 Sep, 2013 [facility] [place] [facility] [address] [id number] [place] [address] 2546 29 Sep, 2013 [facility] [place] [facility] [address] [id number] [place] [address] 2546 29 Sep, 2013 [facility] [place] [facility] [address] [id number] [place] [address] 2541 29 Sep, 2013 [facility] [place] [facility] [address] [id number] [place] [address] 2546 26 Sep, 2013 [facility] [place] [facility] [address] [id number] [place] [address]- 8704 26 Sep, 2013 [facility] [place] [facility] [address] [id number] [place] [address] 2541 24 Sep, 2013 [facility] [place] [facility] [address] [id number] [place] [address] 2542 24 Sep, 2013 [facility] [place] [facility] [address] [id number] [place] [address] 2542 23 Sep, 2013 [facility] [place] [facility] [address] [id number] [place] [address] 2546 23 Sep, 2013 [facility] [place] [facility] [address] [id number] [place] [address] 2542 22 Sep, 2013 [facility] [place] [facility] [address] [id number] [place] [address] 2540 18 Sep, 2013 [facility] [place] [facility] [address] [id number] [place] [address]- 2546 17 Sep, 2013 [facility] [place] [facility] [address] [id number] [place] [address] 2542 17 Nov, 2013 [facility] [id number] [address]- 6403 Nov, [facility] [address], [place] [address]- 0093 Nov, [facility] [address], [place] [address]- 3925 Nov, [facility] [address] 2625 Oct, [facility] [address], [place] [address]- 9421 Oct, [facility] [address], [place] [address]- 5619 May, IMMUNIZATIONS No Known Immunizations SOCIAL HISTORY Never Assessed REASON FOR VISIT Going through withdraw PLAN OF CARE VITAL SIGNS MEDICATIONS Unknown Medications RESULTS No Results PROCEDURES No Known procedures INSTRUCTIONS MEDICATIONS ADMINISTERED No Known Medications MEDICAL (GENERAL) HISTORY Type Description Date Medical History HIV Medical History anxiety Surgical History gallbladder Surgical History tubal ligation Surgical History hysterectomy, total with bilateral salpingo-oophorectomy (BSO )
--- OUTSIDE RECORDS SUMMARY | 2018-03-22 13:59 | XMS REPORT ---
Author Author Dulce Herrera [facility] Address [address] [place], [place] [id number] Care Team Providers Care Physical Therapy Resident Name Role Phone Dulce Herrera Unavailable PROBLEMS Type Condition ICD9-CM Code LEN31-YX Code Onset Dates Condition Status SNOMED Code Problem Bipolar affective disorder F31.9 Active 45488177 Problem Nicotine dependence, cigarettes, uncomplicated F17.210 Active 59189316 Problem FCI (current) use of opiate analgesic Z79.891 Active 802271085 Problem Non-intractable cyclical vomiting with nausea G43.A0 Active 40051742 Problem Poor appetite R63.0 Active 35829393 Problem Wheezing on auscultation R06.2 Active 570398857 Problem Acquired immune deficiency syndrome B20 Active 66003813 Problem Other chronic pain G89.29 Active 41250528 Problem Mood swings F39 Active 08298101 Problem Generalized anxiety disorder F41.1 Active 66017653 Problem GERD (gastroesophageal reflux disease) K21.9 Active 821822672 Problem Mixed hyperlipidemia E78.2 Active 673750943 Problem Intrinsic asthma J45.909 Active 755563047 Problem Migraine G43.909 Active 79270670 Problem Backache M54.9 Active 923829250 ALLERGIES No Information ENCOUNTERS Encounter Location Date Diagnosis [address] [address] Oct, Upper respiratory infection J06.9 and Backache M54.[address] [address] Oct, Generalized anxiety disorder F41.1 and Backache M54.[address] [address] Sep, Acquired immune deficiency syndrome B20 [address] [address] Sep, [facility] [address] [place] [address] [place] [id number] Sep, Acquired immune deficiency syndrome B20 ; Intrinsic asthma J45.909 and Open wound T14.8XXA [facility] [address] [place] [address], [place] [address] Sep, [facility] [address] [place] [address] Sep, [facility] [address] [place] [address] Sep, [facility] [address] [place] [address] Sep, Poor appetite R63.0 [facility] [address] [place] [address] Sep, Backache M54.9 [facility] [address] [place] [address] Sep, [facility] [address] [place] [address] Aug, Generalized anxiety disorder F41.1 [facility] [address] [place] [address] Aug, [facility] [address] [place] [address] Aug, Backache M54.9 [facility] [address] [place] [address] Aug, [facility] [address] [place] [address] Aug, Spider bite T63.301A [facility] [address] [place] [address] Aug, [facility] [address] [place] [address] Aug, [facility] [address] [place] [address] Aug, [facility] [address] [place] [address] July, [facility] [address] [place] [address] July, [facility] [address] [place] [address] July, [facility] [address] [place] [address] July, [facility] [address] [place] [address] July, [facility] [address] [place] [address] July, Poor appetite R63.0 and Backache M54.9 [facility] [address] [place] [address] July, [facility] [address] [place] [address] July, [facility] [address] [place] [address] July, [facility] [address] [place] [address] July, [facility] [address] [place] [address] July, [facility] [address] [place] [address] July, Nausea and vomiting R11.2 [facility] [address] [place] [address] July, [facility] [address] [place] [address] July, [facility] [address] [place] [address] July, [facility] [address] [place] [address] July, [facility] [address] [place] [address] July, [facility] [address] [place] [address] July, Other chronic pain G89.29 [facility] [address] [place] [address] July, [facility] [address] [place] [address] July, GERD (gastroesophageal reflux disease) K21.9 [facility] [address] [place] [address] July, [facility] [address] [place] [address] Jun, [facility] [address] [place] [address] Jun, [facility] [address] [place] [address] Jun, [facility] [address] [place] [address] Jun, [facility] [address] [place] [address] Jun, Other chronic pain G89.29 [facility] [address] [place] [address] Jun, [facility] [address] [place] [address] Jun, [facility] [address] [place] [address] Jun, [facility] [address] [place] [address] Jun, [facility] [address] [place] [address] Jun, [facility] [address] [place] [address] Jun, Generalized anxiety disorder F41.1 ; Other chronic pain G89.29 and Non-intractable cyclical vomiting with nausea G43.A0 [facility] [address] [place] [id number] Jun, Acquired immune deficiency syndrome B20 ; FCI ( current) use of opiate analgesic Z79.891 ; Nicotine dependence, cigarettes, uncomplicated F17.210 ; Lower respiratory infection J22 ; Poor appetite R63.0 ; Other chronic pain G89.29 ; Generalized anxiety disorder F41.1 and Need for tetanus booster Z23 [facility] [address] [place] [address] Jun, [facility] [address] [place] [address] May, Generalized abdominal pain R10.[address] [address] May, [address] [address] Apr, AIDS B20 ; Generalized abdominal pain R10.84 and Dysmenorrhea N94.[address] [address] Apr, Acute URI J06.[address] [address] Apr, [address] [address] Apr, [facility] [address] [place] [phone] Apr, Acquired immune deficiency syndrome B20 ; 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 and Migraine G43.[address] [address] Mar, Dysmenorrhea N94.[address] [address] Mar, [address] [address] Mar, Generalized anxiety disorder F41.1 and Generalized abdominal pain R10.[address] [address] Mar, [address] [address] Mar, Generalized abdominal pain R10.84 and Generalized anxiety disorder F41.[address] [address] Feb, [address] [address] Feb, Generalized abdominal pain R10.84 [facility] [address] [place] [address] Jan, Nausea and vomiting R11.2 [facility] [address] [place] [address] 18 Jan, 2017 [facility] [address] [place] [address] 16 Jan, 2017 [facility] [address] [place] [address] Jan, [facility] [address] [place] [address] Jan, [facility] [address] [place] [address] Jan, [facility] [address] [place] [address] Jan, Mood swings F39 [facility] [address] [place] [address] Jan, [facility] [address] [place] [address] Jan, [facility] [address] [place] [address] Jan, [facility] [address] [place] [address] Jan, Dysmenorrhea N94.6 [facility] [address] [place] [phone] Jan, Acquired immune deficiency syndrome B20 ; Generalized abdominal pain R10.84 and Refused influenza vaccine Z28.21 [facility] [address] [place] [address] Jan, [facility] [address] [place] [address] Dec, Generalized abdominal pain R10.84 [facility] [address] [place] [address] Dec, Dysmenorrhea N94.6 [facility] [address] [place] [address] Dec, Backache M54.9 [facility] [address] [place] [address] Nov, Generalized abdominal pain R10.[address] [address] Nov, Generalized anxiety disorder F41.[address] [address] Nov, Dysmenorrhea N94.[address] [address] Oct, [address] [address] Oct, [address] [address] Oct, [address] [address] Oct, Generalized abdominal pain R10.84 [facility] [address] [place] [id number] Oct, Acquired immune deficiency syndrome B20 ; 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 administrator 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 Z79.891 ; Bipolar affective disorder F31.9 ; Generalized anxiety disorder F41.1 ; Backache M54.9 ; Mixed hyperlipidemia E78.2 ; Nicotine dependence, cigarettes, uncomplicated F17.210 and Wheezing on auscultation R06.[address] [address] Oct, Oral candidiasis B37.[address] [address] Oct, [address] [address] Oct, Acute upper respiratory infection J06.[address] [address] Oct, Acute upper respiratory infection J06.[address] [address] Sep, Dysmenorrhea N94.[address] [address] Sep, Generalized anxiety disorder F41.1 [facility] [address] [place] [address] Sep, Dysmenorrhea N94.6 [facility] [address] [place] [address] Sep, [facility] [address] [place] [address] Sep, Dysmenorrhea N94.6 [facility] [address] [place] [address] Aug, Acquired immune deficiency syndrome B20 [facility] [address] [place] [address] Aug, Generalized anxiety disorder F41.1 [facility] [address] [place] [address] Aug, [facility] [address] [place] [address] Aug, [facility] [address] [place] [address] Aug, [facility] [address] [place] [address] Aug, [facility] [address] [place] [address] Aug, [facility] [address] [place] [address] Aug, [facility] [address] [place] [address] Aug, [facility] [address] [place] [address] Aug, Acute opioid withdrawal F11.23 [facility] [address] [place] [address] July, Upper respiratory infection J06.9 [facility] [address] [place] [address] July, Backache M54.9 [facility] [address] [place] [id number] July, Acquired immune deficiency syndrome B20 ; 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 administrator 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 Z79.891 ; Hyperglycemia R73.9 ; Bipolar affective disorder F31.9 ; GERD (gastroesophageal reflux disease) K21.9 ; Backache M54.9 ; Generalized anxiety disorder F41.1 ; Mixed hyperlipidemia E78.2 ; Nicotine dependence, cigarettes, uncomplicated F17.210 and Localized edema R60.[address] [address] July, [address] [address] Jun, Backache M54.[address] [address] Jun, Chronic pain G89.[address] [address] May, Backache M54.[address] [address] May, Backache M54.[address] [address] Apr, Cough R05 [facility] [address] [place] [id number] Apr, Acquired immune deficiency syndrome B20 ; Screening examination for sexually transmitted disease Z11.3 ; Dermatitis L30.9 and Migraine with aura and with status migrainosus, not intractable G43.[address] [address] Apr, Backache M54.[address] [address] Mar, Intrinsic asthma J45.909 ; Nausea and vomiting R11.2 and AIDS B20 [address] [address] Mar, Backache M54.[address] [address] Feb, Chronic pain G89.[address] [address] Feb, Backache M54.9 [facility] [address] [place] [address] Jan, Vandervoort eye, 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 [facility] [address] [place] [address] Jan, Asthma, intrinsic 493.10 [facility] [address] [place] [address] Jan, [facility] [address] [place] [address] Jan, [facility] [address] [place] [address] Jan, Backache M54.[address] [address] Dec, Chronic pain G89.29 [facility] [address] [place] [id number] Dec, AIDS B20 ; Influenza vaccine needed Z23 ; Intrinsic asthma J45.909 ; Backache M54.9 ; Generalized anxiety disorder F41.1 ; Nicotine dependence, cigarettes, uncomplicated F17.210 and Mixed hyperlipidemia E78.[address] [address] Dec, [address] [address] Dec, Dysmenorrhea N94.[address] [address] Dec, [address] [address] Dec, Depression with anxiety F41.8 and Backache M54.[address] [address] Nov, [address] [address] Nov, Other chronic pain G89.[address] [address] 18 Nov, 2015 Other chronic pain G89.[address] [address] Nov, [facility] [address] [place] [address] Nov, Generalized anxiety disorder F41.1 [facility] [address] [place] [address] Nov, [facility] [address] [place] [address] Nov, [facility] [address] [place] [address] Nov, Chronic pain G89.29 [facility] [address] [place] [address] Oct, [facility] [address] [place] [address] Oct, Other chronic pain G89.29 [facility] [address] [place] [address] Oct, [facility] [address] [place] [address] Oct, [facility] [address] [place] [address] Oct, Nausea and vomiting R11.2 [facility] [address] [place] [address] Oct, Chronic pain G89.29 [facility] [address] [place] [address] Sep, [facility] [address] [place] [address] Sep, Acute upper respiratory infection, unspecified J06.9 [facility] [address] [place] [address] Sep, Upper respiratory infection J06.9 [facility] [address] [place] [address] Sep, [facility] [address] [place] [address] Sep, [facility] [address] [place] [address] Sep, Other chronic pain G89.29 [facility] [address] [facility] [address] [place] [id number] Sep, AIDS B20 ; FCI (current) use of opiate analgesic Z79.891 ; Smoking F17.200 ; Mixed hyperlipidemia E78.2 ; Chronic pain G89.29 and Edema R60.9 [facility] [address] [place] [address] Sep, [facility] [address] [place] [address] Sep, [facility] [address] [place] [address] Aug, [facility] [address] [place] [address] Aug, Other chronic pain G89.29 [facility] [address] [place] [address] Aug, Generalized anxiety disorder F41.1 [facility] [address] [place] [address] July, Other chronic pain G89.29 [facility] [address] [place] [address] July, Other chronic pain G89.29 [facility] [address] [place] [address] July, [facility] [address] [place] [address] Jun, Generalized anxiety disorder F41.1 [facility] [address] [place] [address] Jun, [facility] [address] [place] [address] Jun, Other chronic pain G89.29 [facility] [address] [place] [address] Jun, Rash and other nonspecific skin eruption R21 [facility] [address] [place] [address] Jun, [facility] [address] [place] [address] Jun, [facility] [address] [place] [address] Jun, [facility] [address] [place] [address] Jun, [facility] [address] [place] [address] Jun, [facility] [address] [place] [address] Jun, [facility] [address] [place] [address] Jun, [facility] [address] [place] [address] Jun, Other chronic pain G89.29 [facility] [address] [place] [address] Jun, [facility] [address] [place] [address] Jun, [facility] [address] [place] [address] Jun, [facility] [address] [place] [address] Jun, [facility] [address] [place] [address] Jun, [facility] [address] [place] [address] Jun, [facility] [address] [place] [address] Jun, [facility] [address] [place] [address] Jun, [facility] [address] [place] [address] Jun, [facility] [address] [place] [address] Jun, Nausea and vomiting R11.2 [facility] [address] [place] [address] May, [facility] [address] [place] [address] May, Rash and other nonspecific skin eruption R21 [facility] [address] [place] [address] May, [facility] [address] [place] [address] May, [facility] [address] [place] [address] May, [facility] [address] [place] [address] May, [facility] [address] [place] [address] May, [facility] [address] [place] [address] May, Acquired immune deficiency syndrome B20 ; Screening examination for sexually transmitted disease Z11.3 ; Depression with anxiety F41.8 ; Other chronic pain G89.29 and Dermatitis L30.9 [facility] [address] [place] [address] May, [facility] [address] [place] [address] May, [facility] [address] [place] [address] May, [facility] [address] [place] [address] May, Backache M54.9 [facility] [address] [place] [address] May, Rash and other nonspecific skin eruption R21 [facility] [address] [place] [address] Apr, [facility] [address] [place] [address] Apr, [facility] [address] [place] [address] Apr, Other chronic pain G89.29 [facility] [address] [place] [address] Apr, [facility] [address] [place] [address] Apr, [facility] [address] [place] [address] Apr, [facility] [address] [place] [address] Apr, [facility] [address] [place] [address] Apr, [facility] [address] [place] [address] Apr, [facility] [address] [place] [address] Apr, [facility] [address] [place] [address] Apr, [facility] [address] [place] [address] Apr, [facility] [address] [place] [address] Apr, [facility] [address] [place] [address] Apr, Other chronic pain G89.29 ; Generalized anxiety disorder F41.1 ; Nausea R11.0 and AIDS B20 [facility] [address] [place] [address] Apr, [facility] [address] [place] [address] Apr, Generalized anxiety disorder F41.1 [facility] [address] [place] [address] Apr, [facility] [address] [place] [address] Apr, Other chronic pain G89.29 [facility] [address] [place] [address] Mar, [facility] [address] [place] [id number] Mar, 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 administrator (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 analgesic Z79.891 ; Bipolar affective disorder F31.9 ; Smoking F17.200 ; Generalized anxiety disorder F41.1 ; Influenza vaccine administered Z23 and AIDS B20 [facility] [address] [place] [address] Mar, Other chronic pain G89.29 [facility] [address] [place] [address] Mar, Generalized anxiety disorder F41.1 [facility] [address] [place] [address] Mar, [facility] [address] [place] [address] Mar, Asymptomatic HIV infection Z21 [facility] [address] [place] [address] Mar, Other chronic pain G89.[address] [address] Feb, [address] [address] Feb, [facility] [address] [place] [address] Feb, [facility] [address] [place] [address] Feb, [facility] [address] [place] [address] Feb, [facility] [address] [place] [address] Jan, Other chronic pain G89.29 and Nausea & vomiting R11.[address] [address] Jan, Other chronic pain G89.29 [facility] [address] [place] [address] Dec, [facility] [address] [place] [address] Dec, Other chronic pain G89.29 ; Asymptomatic HIV infection Z21 ; Intrinsic asthma J45.909 ; Bipolar affective disorder F31.9 ; Noncompliance Z91.19 ; Migraine G43.909 ; Tobacco use disorder Z72.0 ; GERD (gastroesophageal reflux disease) K21.9 ; Backache M54.9 and Generalized anxiety disorder F41.1 [facility] [address] [place] [address] Nov, [facility] [address] [place] [address] Nov, [facility] [address] [place] [address] Oct, Other chronic pain 338.[address] [address] Oct, [address] [address] Oct, Unspecified backache 724.5 and Dysphagia 787.[address] [address] Sep, Other chronic pain 338.[address] [address] Sep, [address] [address] Aug, URI (upper respiratory infection) 465.9 and Diarrhea 787.[address] [address] Aug, [address] [address] Aug, Other chronic pain 338.[address] [address] Aug, Other chronic pain 338.29 and Generalized anxiety disorder 300.[address] [address] Aug, [address] [address] July, Other chronic pain 338.29 [facility] [address] [place] [id number] July, Nondependent tobacco use disorder 305.1 ; Unspecified backache 724.5 ; Other chronic pain 338.29 ; Abdominal pain, unspecified site 789.00 ; FCI (current) use of opiate analgesic V58.69 and Acquired immune deficiency syndrome 042 [facility] [address] [place] [address] July, Other chronic pain 338.29 [facility] [address] [place] [address] Jun, Other chronic pain 338.29 [facility] [address] [place] [address] Jun, [facility] [address] [place] [address] Jun, Other chronic pain 338.29 [facility] [address] [place] [address] Jun, URI (upper respiratory infection) 465.9 [facility] [address] [place] [address] Jun, Generalized anxiety disorder 300.02 and Seasonal allergies 477.9 [facility] [address] [place] [address] Jun, Generalized anxiety disorder 300.02 [facility] [address] [place] [address] May, Other chronic pain 338.29 [facility] [address] [place] [address] May, Other chronic pain 338.29 and Generalized anxiety disorder 300.02 [facility] [address] [place] [address] Apr, Asthma, intrinsic 493.10 and Acute upper respiratory infections of other multiple sites 465.8 [facility] [address] [place] [address] Apr, [facility] [address] [facility] [address] [place], [place] [id number] Apr, Depressive disorder 311 [facility] [address] [place] [address] Apr, Other chronic pain 338.29 [facility] [address] [place] [address] Apr, [facility] [address] [place] [address] Apr, Other chronic pain 338.[address] [address] Mar, Acute upper respiratory infections of unspecified site 465.9 [facility] [address] [place] [phone] Mar, Migraine 346.90 ; Nondependent tobacco use disorder 305.1 ; Esophageal reflux 530.81 ; Unspecified backache 724.5 ; Abdominal pain, generalized 789.07 ; Flatulence, eructation, and gas pain 787.3 ; Asymptomatic human immunodeficiency virus (HIV) infection status V08 ; Dyspepsia and other specified disorders of function of stomach 536.8 ; Nausea alone 787.02 and Asthma 493.[address] [address] Mar, Other chronic pain 338.[address] [address] Feb, Other chronic pain 338.29 and Generalized anxiety disorder 300.[address] [address] Feb, Abdominal pain, generalized 789.[address] [address] Jan, Abdominal pain, generalized 789.07 [facility] [address] [place] [id number] Dec, [address] [address] Dec, [address] [address] Dec, Unspecified backache 724.[address] [address] Dec, [address] [address] Nov, [facility] [address] [facility] [address] [place], [place] [id number] Nov, [facility] [address] [place] [id number] Nov, Bipolar disorder, unspecified 296.80 ; Abdominal pain, generalized 789.07 ; Generalized anxiety disorder 300.02 ; Nausea alone 787.02 ; Flu vaccine need V04.81 and Human immunodeficiency virus (HIV) disease 042 [facility] [address] [place] [address] Nov, [facility] [address] [facility] [address] [place] [id number] Oct, [facility] [address] [facility] [address] [place] [id number] Oct, [facility] [address] [facility] [address] [place] [phone] Aug, [facility] [address] [place] [address] Jun, [facility] [address] [place] [address] Mar, [facility] [address] [place] [address] Oct, [facility] [address] [place] [address] July, [facility] [address] [place] [address] Jun, [facility] [address] [place] [address] May, [facility] [address] [place] [address] Mar, [facility] [address] [place] [address] Feb, [facility] [address] [place] [address] Nov, [facility] [address] [place] [address] Oct, [facility] [address] [place] [address] Aug, [facility] [address] [place] [address] May, [facility] [address] [place] [address] Mar, IMMUNIZATIONS No Known Immunizations SOCIAL HISTORY Never Assessed REASON FOR VISIT PLAN OF CARE VITAL SIGNS MEDICATIONS Medication Instructions Dosage Frequency Start Date End Date Duration Status Tramadol HCl 50 MG Orally every 12 hrs 2 tablet as needed 12h Sep, 30 days Active Xanax 1 MG Orally once daily at bedtime 1 tablet as needed Sep, 30 days Active RESULTS No Results [...]
--- NOTE | 2018-03-22 14:00 | NUR ---
PATIENT REFUSED TO ALLOW ME TO DRAW LACTIC ACID AND BLOOD CULTURES.
--- OUTSIDE RECORDS SUMMARY | 2018-03-22 14:00 | XMS REPORT ---
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 Phone Dulce Herrera Unavailable PROBLEMS Type Condition ICD9-CM Code TFP90-IB Code Onset Dates Condition Status SNOMED Code Problem Bipolar affective disorder F31.9 Active 03546388 Problem Nicotine dependence, cigarettes, uncomplicated F17.210 Active 88225881 Problem alf (current) use of opiate analgesic Z79.891 Active 000784025 Problem Non-intractable cyclical vomiting with nausea G43.A0 Active 77285304 Problem Poor appetite R63.0 Active 66759139 Problem Wheezing on auscultation R06.2 Active 705659464 Problem Acquired immune deficiency syndrome B20 Active 75681642 Problem Other chronic pain G89.29 Active 72553199 Problem Mood swings F39 Active 78747635 Problem Generalized anxiety disorder F41.1 Active 51244173 Problem GERD (gastroesophageal reflux disease) K21.9 Active 526194424 Problem Mixed hyperlipidemia E78.2 Active 179127693 Problem Intrinsic asthma J45.909 Active 362016764 Problem Migraine G43.909 Active 81476417 Problem Backache M54.9 Active 920546265 ALLERGIES No Information ENCOUNTERS Encounter Location Date Diagnosis [address] [address] Sep, Acquired immune deficiency syndrome B20 [address] [address] Sep, [facility] [address] [place] [id number] Sep, Acquired immune deficiency syndrome B20 ; Intrinsic asthma J45.909 and Open wound T14.8XXA [address] [address] Sep, [address] [address] Sep, [facility] [address] [facility] [place] [address] Sep, [facility] [address] [facility] [place] [address] Sep, Poor appetite R63.0 [facility] [address] [facility] [place] [address] Sep, Backache M54.9 [facility] [address] [facility] [place] [address] Sep, [facility] [address] [facility] [place] [address] Aug, Generalized anxiety disorder F41.1 [facility] [address] [facility] [place] [address] Aug, [facility] [address] [facility] [place] [address] Aug, Backache M54.9 [facility] [address] [facility] [place] [address] Aug, [facility] [address] [facility] [place] [address] Aug, Spider bite T63.301A [facility] [address] [facility] [place] [address] Aug, [facility] [address] [facility] [place] [address] Aug, [facility] [address] [facility] [place] [address] Aug, [facility] [address] [facility] [place] [address] July, [facility] [address] [facility] [place] [address] July, [facility] [address] [facility] [place] [address] July, [facility] [address] [facility] [place] [address] July, [facility] [address] [facility] [place] [address] July, [facility] [address] [facility] [place] [address] July, Poor appetite R63.0 and Backache M54.9 [facility] [address] [facility] [place] [address] July, [facility] [address] [facility] [place] [address] July, [facility] [address] [facility] [place] [address] July, [facility] [address] [facility] [place] [address] July, [facility] [address] [facility] [place] [address] July, [facility] [address] [facility] [place] [address] July, Nausea and vomiting R11.2 [facility] [address] [facility] [place] [address] July, [facility] [address] [facility] [place] [address] July, [facility] [address] [facility] [place] [address] July, [facility] [address] [facility] [place] [address] July, [facility] [address] [facility] [place] [address] July, [facility] [address] [facility] [place] [address] July, Other chronic pain G89.29 [facility] [address] [facility] [place] [address] July, [facility] [address] [facility] [place] [address] July, GERD (gastroesophageal reflux disease) K21.9 [facility] [address] [facility] [place] [address] July, [facility] [address] [facility] [place] [address] Jun, [facility] [address] [facility] [place] [address] Jun, [facility] [address] [facility] [place] [address] Jun, [facility] [address] [facility] [place] [address] Jun, [facility] [address] [facility] [place] [address] Jun, Other chronic pain G89.29 [facility] [address] [facility] [place] [address] Jun, [facility] [address] [facility] [place] [address] Jun, [facility] [address] [facility] [place] [address] Jun, [facility] [address] [facility] [place] [address] Jun, [facility] [address] [facility] [place] [address] Jun, [facility] [address] [facility] [place] [address] Jun, Generalized anxiety disorder F41.1 ; Other chronic pain G89.29 and Non-intractable cyclical vomiting with nausea G43.A0 [facility] [address] [place] [id number] Jun, Acquired immune deficiency syndrome B20 ; alf ( current) use of opiate analgesic Z79.891 ; Nicotine dependence, cigarettes, uncomplicated F17.210 ; Lower respiratory infection J22 ; Poor appetite R63.0 ; Other chronic pain G89.29 ; Generalized anxiety disorder F41.1 and Need for tetanus booster Z23 [facility] [address] [facility] [place] [address] Jun, [facility] [address] [place] [address] May, Generalized abdominal pain R10.84 [facility] [address] [place] [address] May, [facility] [address] [place] [address] Apr, AIDS B20 ; Generalized abdominal pain R10.84 and Dysmenorrhea N94.[address] [address] Apr, Acute URI J06.9 [facility] [address] [place] [address] Apr, [address] [address] Apr, [facility] [address] [place] [id number] Apr, Acquired immune deficiency syndrome B20 ; alf ( current) use of opiate analgesic Z79.891 and Migraine G43.[address] [address] Mar, Dysmenorrhea N94.[address] [address] Mar, [address] [address] Mar, Generalized anxiety disorder F41.1 and Generalized abdominal pain R10.[address] [address] Mar, [address] [address] Mar, Generalized abdominal pain R10.84 and Generalized anxiety disorder F41.[address] [address] Feb, [address] [address] Feb, Generalized abdominal pain R10.[address] [address] Jan, Nausea and vomiting R11.[address] [address] Jan, [address] [address] Jan, [facility] [address] [place] [address] Jan, [facility] [address] [place] [address] Jan, [facility] [address] [place] [address] Jan, [facility] [address] [place] [address] Jan, Mood swings F39 [facility] [address] [place] [address] Jan, [facility] [address] [place] [address] Jan, [facility] [address] [place] [address] Jan, [facility] [address] [place] [address] Jan, Dysmenorrhea N94.6 [facility] [address] [place] [phone] Jan, Acquired immune deficiency syndrome B20 ; Generalized abdominal pain R10.84 and Refused influenza vaccine Z28.21 [facility] [address] [address] Jan, [facility] [address] [place] [address] Dec, Generalized abdominal pain R10.84 [facility] [address] [address] Dec, Dysmenorrhea N94.6 [facility] [address] [place] [address] Dec, Backache M54.[address] [address] Nov, Generalized abdominal pain R10.[address] [address] Nov, Generalized anxiety disorder F41.1 [facility] [address] [address] Nov, Dysmenorrhea N94.6 [facility] [address] [place] [address] Oct, [facility] [address] [place] [address] Oct, [facility] [address] [place] [address] Oct, [facility] [address] [place] [address] Oct, Generalized abdominal pain R10.[address] [facility] [address] [place] [id number] Oct, Acquired immune deficiency syndrome B20 ; alf 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 Z79.891 ; Bipolar affective disorder F31.9 ; Generalized anxiety disorder F41.1 ; Backache M54.9 ; Mixed hyperlipidemia E78.2 ; Nicotine dependence, cigarettes, uncomplicated F17.210 and Wheezing on auscultation R06.[address] [address] Oct, Oral candidiasis B37.[address] [address] Oct, [facility] [address] [address] Oct, Acute upper respiratory infection J06.[address] [address] Oct, Acute upper respiratory infection J06.[address] [address] Sep, Dysmenorrhea N94.[address] [address] Sep, Generalized anxiety disorder F41.[address] [address] Sep, Dysmenorrhea N94.[address] [address] Sep, [facility] [address] [place] [address] Sep, Dysmenorrhea N94.6 [facility] [address] [place] [address] Aug, Acquired immune deficiency syndrome B20 [facility] [address] [place] [address] Aug, Generalized anxiety disorder F41.1 [facility] [address] [place] [address] Aug, [facility] [address] [place] [address] Aug, [facility] [address] [place] [address] Aug, [facility] [address] [place] [address] Aug, [facility] [address] [place] [address] Aug, [facility] [address] [place] [address] Aug, [facility] [address] [place] [address] Aug, [facility] [address] [place] [address] Aug, Acute opioid withdrawal F11.23 [facility] [address] [place] [address] July, Upper respiratory infection J06.9 [facility] [address] [place] [address] July, Backache M54.[address] 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 ; Hyperglycemia R73.9 ; Bipolar affective disorder F31.9 ; GERD (gastroesophageal reflux disease) K21.9 ; Backache M54.9 ; Generalized anxiety disorder F41.1 ; Mixed hyperlipidemia E78.2 ; Nicotine dependence, cigarettes, uncomplicated F17.210 and Localized edema R60.0 [facility] [address] [place] [address] July, [facility] [address] [place] [address] Jun, Backache M54.9 [facility] [address] [place] [address] Jun, Chronic pain G89.29 [facility] [address] [place] [address] May, Backache M54.9 [facility] [address] [place] [address] May, Backache M54.[address] [address] Apr, Cough R[address] [facility] [address] [place] [id number] Apr, Acquired immune deficiency syndrome B20 ; Screening examination for sexually transmitted disease Z11.3 ; Dermatitis L30.9 and Migraine with aura and with status migrainosus, not intractable G43.101 [facility] [address] [place] [address] Apr, Backache M54.[address] [address] Mar, Intrinsic asthma J45.909 ; Nausea and vomiting R11.2 and AIDS B20 [address] [address] Mar, Backache M54.[address] [address] Feb, Chronic pain G89.[address] [address] Feb, Backache M54.[address] [address] Jan, [place] [facility], 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 [address] Jan, Asthma, intrinsic 493.[address] [address] Jan, [facility] [address] [place] [address] Jan, [facility] [address] [place] [address] Jan, Backache M54.9 [facility] [address] [place] [address] 30 Dec, 2015 Chronic pain G89.[address] [facility] [address] [facility] [place] [id number] Dec, AIDS B20 ; Influenza vaccine needed Z23 ; Intrinsic asthma J45.909 ; Backache M54.9 ; Generalized anxiety disorder F41.1 ; Nicotine dependence, cigarettes, uncomplicated F17.210 and Mixed hyperlipidemia E78.2 [facility] [address] [place] [address] Dec, [facility] [address] [place] [address] Dec, Dysmenorrhea N94.6 [facility] [address] [place] [address] 18 Dec, 2015 [facility] [address] [place] [address] 17 Dec, 2015 Depression with anxiety F41.8 and Backache M54.9 [facility] [address] [place] [address] 19 Nov, 2015 [facility] [address] [place] [address] 19 Nov, 2015 Other chronic pain G89.29 [facility] [address] [place] [address] 18 Nov, 2015 Other chronic pain G89.29 [facility] [address] [place] [address] 18 Nov, 2015 [facility] [address] [place] [address] 14 Nov, 2015 Generalized anxiety disorder F41.1 [facility] [address] [place] [address] 06 Nov, 2015 [facility] [address] [place] [address] Nov, [facility] [address] [place] [address] Nov, Chronic pain G89.29 [facility] [address] [place] [address] Oct, [facility] [address] [place] [address] Oct, Other chronic pain G89.29 [facility] [address] [place] [address] Oct, [facility] [address] [place] [address] Oct, [facility] [address] [place] [address] Oct, Nausea and vomiting R11.[address] [address] Oct, Chronic pain G89.29 [facility] [address] [place] [address] Sep, [facility] [address] [place] [address] Sep, Acute upper respiratory infection, unspecified J06.[address] [address] Sep, Upper respiratory infection J06.[address] [address] Sep, [facility] [address] [place] [address] Sep, [facility] [address] [place] [address] Sep, Other chronic pain G89.29 [facility] [address] [facility] [place] [id number] Sep, AIDS B20 ; alf (current) use of opiate analgesic Z79.891 ; Smoking F17.200 ; Mixed hyperlipidemia E78.2 ; Chronic pain G89.29 and Edema R60.9 [facility] [address] [place], [place] [address], [place] [address] Sep, [facility] [address] [facility] [place] [address] Sep, [facility] [address] [facility] [place] [address] Aug, [facility] [address] [facility] [place] [address] Aug, Other chronic pain G89.29 [facility] [address] [facility] [place] [address] Aug, Generalized anxiety disorder F41.1 [facility] [address] [facility] [place] [address] July, Other chronic pain G89.29 [facility] [address] [facility] [place] [address] July, Other chronic pain G89.29 [facility] [address] [facility] [place] [address] July, [facility] [address] [facility] [place] [address] Jun, Generalized anxiety disorder F41.1 [facility] [address] [facility] [place] [address] Jun, [facility] [address] [facility] [place] [address] Jun, Other chronic pain G89.29 [facility] [address] [facility] [place] [address] Jun, Rash and other nonspecific skin eruption R21 [facility] [address] [facility] [place] [address] Jun, [facility] [address] [facility] [place] [address] Jun, [facility] [address] [facility] [place] [address] Jun, [facility] [address] [facility] [place] [address] Jun, [facility] [address] [facility] [place] [address] Jun, [facility] [address] [facility] [place] [address] Jun, [facility] [address] [facility] [place] [address] Jun, [facility] [address] [facility] [place] [address] Jun, Other chronic pain G89.29 [facility] [address] [facility] [place] [address] Jun, [facility] [address] [facility] [place] [address] Jun, [facility] [address] [facility] [place] [address] Jun, [facility] [address] [facility] [place] [address] Jun, [facility] [address] [facility] [place] [address] Jun, [facility] [address] [facility] [place] [address] Jun, [facility] [address] [facility] [place] [address] Jun, [facility] [address] [facility] [place] [address] Jun, [facility] [address] [facility] [place] [address] Jun, [facility] [address] [facility] [place] [address] Jun, Nausea and vomiting R11.2 [facility] [address] [facility] [place] [address] May, [facility] [address] [facility] [place] [address] May, Rash and other nonspecific skin eruption R21 [facility] [address] [facility] [place] [address] May, [facility] [address] [facility] [place] [address] May, [facility] [address] [facility] [place] [address] May, [facility] [address] [facility] [place] [address] May, [facility] [address] [place] [address] May, [facility] [address] [facility] [place] [id number] 18 May, 2015 Acquired immune deficiency syndrome B20 ; Screening examination for sexually transmitted disease Z11.3 ; Depression with anxiety F41.8 ; Other chronic pain G89.29 and Dermatitis L30.9 [facility] [address] [place] [address] May, [facility] [address] [place] [address] May, [facility] [address] [place] [address] May, [facility] [address] [place] [address] May, Backache M54.9 [facility] [address] [place] [address] May, Rash and other nonspecific skin eruption R21 [facility] [address] [place] [address] Apr, [facility] [address] [place] [address] Apr, [facility] [address] [place] [address] Apr, Other chronic pain G89.29 [facility] [address] [place] [address] Apr, [facility] [address] [place] [address] Apr, [facility] [address] [place] [address], [place] [address] Apr, [facility] [address] [place] [address] Apr, [facility] [address] [place] [address] Apr, [facility] [address] [place] [address] Apr, [facility] [address] [place] [address] Apr, [facility] [address] [place] [address] Apr, [facility] [address] [place] [address] Apr, [facility] [address] [place] [address] Apr, [facility] [address] [place] [address] Apr, Other chronic pain G89.29 ; Generalized anxiety disorder F41.1 ; Nausea R11.0 and AIDS B20 [address] [address] Apr, [address] [address] Apr, Generalized anxiety disorder F41.1 [facility] [address] [place] [address] Apr, [address] [address] Apr, Other chronic pain G89.[address] [address] Mar, [facility] [address] [place] [id number] Mar, alf (current) use of opiate analgesic Z79.891 ; Bipolar affective disorder F31.9 ; Smoking F17.200 ; Generalized anxiety disorder F41.1 ; Influenza vaccine administered Z23 and AIDS B20 [address] [address] Mar, Other chronic pain G89.[address] [address] Mar, Generalized anxiety disorder F41.1 [address] [place] [address] Mar, [facility] [address] [place] [address] Mar, Asymptomatic HIV infection Z21 [facility] [address] [place] [address] Mar, Other chronic pain G89.29 [facility] [address] [place] [address] Feb, [facility] [address] [facility] [place] [address] Feb, [facility] [address] [place] [address] Feb, [facility] [address] [place] [address] Feb, [facility] [address] [place] [address] Feb, [facility] [address] [place] [address] Jan, Other chronic pain G89.29 and Nausea & vomiting R11.2 [facility] [address] [place] [address] Jan, Other chronic pain G89.29 [facility] [address] [place] [address] Dec, [facility] [address] [place] [address] Dec, Other chronic pain G89.29 ; Asymptomatic HIV infection Z21 ; Intrinsic asthma J45.909 ; Bipolar affective disorder F31.9 ; Noncompliance Z91.19 ; Migraine G43.909 ; Tobacco use disorder Z72.0 ; GERD (gastroesophageal reflux disease) K21.9 ; Backache M54.9 and Generalized anxiety disorder F41.1 [facility] [address] [place] [address] Nov, [facility] [address] [place] [address] Nov, [facility] [address] [place] [address] Oct, Other chronic pain 338.[address] [address] Oct, [address] [address] Oct, Unspecified backache 724.5 and Dysphagia 787.[address] [address] Sep, Other chronic pain 338.[address] [address] Sep, [address] [address] Aug, URI (upper respiratory infection) 465.9 and Diarrhea 787.[address] [address] Aug, [address] [address] Aug, Other chronic pain 338.[address] [address] Aug, Other chronic pain 338.29 and Generalized anxiety disorder 300.[address] [address] Aug, [address] [address] July, Other chronic pain 338.29 [facility] [address] [place], [place] [id number] July, Nondependent tobacco use disorder 305.1 ; Unspecified backache 724.5 ; Other chronic pain 338.29 ; Abdominal pain, unspecified site 789.00 ; alf (current) use of opiate analgesic V58.69 and Acquired immune deficiency syndrome [address] [address] July, Other chronic pain 338.[address] [address] Jun, Other chronic pain 338.29 [address] [place] [address] Jun, [facility] [address] [place] [address] Jun, Other chronic pain 338.29 [facility] [address] [place] [address] Jun, URI (upper respiratory infection) 465.9 [facility] [address] [place] [address] Jun, Generalized anxiety disorder 300.02 and Seasonal allergies 477.9 [facility] [address] [place] [address] Jun, Generalized anxiety disorder 300.02 [facility] [address] [place] [address] May, Other chronic pain 338.29 [facility] [address] [place] [address] May, Other chronic pain 338.29 and Generalized anxiety disorder 300.02 [facility] [address] [place] [address] Apr, Asthma, intrinsic 493.10 and Acute upper respiratory infections of other multiple sites 465.8 [facility] [address] [place] [address] Apr, [facility] [address] [facility] [address] [place] [id number] Apr, Depressive disorder 311 [facility] [address] [place] [address] Apr, Other chronic pain 338.29 [facility] [address] [place] [address] Apr, [facility] [address] [place] [address] Apr, Other chronic pain 338.29 [facility] [address] [place] [address] Mar, Acute upper respiratory infections of unspecified site 465.9 [facility] [address] [place] [id number] Mar, Migraine 346.90 ; Nondependent tobacco use disorder 305.1 ; Esophageal reflux 530.81 ; Unspecified backache 724.5 ; Abdominal pain, generalized 789.07 ; Flatulence, eructation, and gas pain 787.3 ; Asymptomatic human immunodeficiency virus (HIV) infection status V08 ; Dyspepsia and other specified disorders of function of stomach 536.8 ; Nausea alone 787.02 and Asthma 493.[address] [address] Mar, Other chronic pain 338.[address] [address] Feb, Other chronic pain 338.29 and Generalized anxiety disorder 300.[address] [address] Feb, Abdominal pain, generalized 789.[address] [address] Jan, Abdominal pain, generalized 789.07 [facility] [address] [place] [id number] Dec, [address] [address] Dec, [address] [address] Dec, Unspecified backache 724.[address] [address] Dec, [address] [address] Nov, [facility] [address] [facility] [address] [place] [id number] Nov, [facility] [address] [facility] [place] [id number] Nov, Bipolar disorder, unspecified 296.80 ; Abdominal pain, generalized 789.07 ; Generalized anxiety disorder 300.02 ; Nausea alone 787.02 ; Flu vaccine need V04.81 and Human immunodeficiency virus (HIV) disease [address] [address] Nov, [facility] [address] [facility] [address] [place] [id number] Oct, [facility] [address] [facility] [address] [place] [id number] Oct, [facility] [address] [facility] [address] [place] [id number] Aug, [facility] [address] [facility] [place] [address] Jun, [facility] [address] [facility] [place] [address] Mar, [facility] [address] [facility] [place] [address] Oct, [facility] [address] [facility] [place] [address] July, [facility] [address] [facility] [place] [address] Jun, [facility] [address] [facility] [place] [address] May, [facility] [address] [facility] [place] [address] Mar, [facility] [address] [facility] [place] [address] Feb, [facility] [address] [facility] [place] [address] Nov, [facility] [address] [facility] [place] [address] Oct, [facility] [address] [facility] [place] [address] Aug, [facility] [address] [facility] [place] [address] May, [facility] [address] [facility] [place] [address] Mar, IMMUNIZATIONS No Known Immunizations SOCIAL HISTORY Never Assessed REASON FOR VISIT PLAN OF CARE VITAL SIGNS MEDICATIONS Medication Instructions Dosage Frequency Start Date End Date Duration Status CVS Omeprazole 20 MG Orally Once a day 1 tablet 24h Mar, 30 day (s) Active Dicyclomine HCl 20 MG Orally three times a day 1 tablet 8h 12 May, 2017 30 day(s) Active Tramadol HCl 50 MG Orally every 12 hrs 2 tablet as needed 12h Sep, 30 days Active Marinol 10 MG Orally three times a day 1 capsule before lunch and supper 8h Jun, 30 days Active Hydrochlorothiazide 25 MG Orally Once a day 1 tablet in the morning 24h July, 30 day(s) Active Omeprazole 40 MG Orally Once a day 1 capsule 24h July, 30 day(s ) Active Methocarbamol 750 TAKE ONE TABLET BY MOUTH EVERY 8 HOURS FOR 10 DAYS 10 Active Stribild [phone] MG Orally Once a day 1 tablet [...] 1 tablet 24h May, 30 days Active Dapsone 100 MG Orally Once a day 1 tablet 24h 24 Apr, 2015 30 days Active Promethazine HCl 25 MG Orally three times a day 1 tablet as needed 8h Mar, 30 day(s) Active Xanax 1 MG Orally once daily at bedtime 1 tablet as needed Sep, 30 days Active Montelukast Sodium 10 MG Orally Once [...]
--- OUTSIDE RECORDS SUMMARY | 2018-03-22 14:01 | XMS REPORT ---
Author Author Dulce Herrera Organization [facility] Address [address] [place], [place] [id number] Care Team Providers Care Operations Supervisor [employer] Name Role Phone Dulce Herrera Unavailable PROBLEMS Type Condition ICD9-CM Code ASD41-AV Code Onset Dates Condition Status SNOMED Code Problem Bipolar affective disorder F31.9 Active 68237096 Problem Nicotine dependence, cigarettes, uncomplicated F17.210 Active 12694553 Problem halfway (current) use of opiate analgesic Z79.891 Active 622082298 Problem Non-intractable cyclical vomiting with nausea G43.A0 Active 04054444 Problem Poor appetite R63.0 Active 56203514 Problem Wheezing on auscultation R06.2 Active 437700967 Problem Acquired immune deficiency syndrome B20 Active 13569587 Problem Other chronic pain G89.29 Active 11542659 Problem Mood swings F39 Active 66040130 Problem Generalized anxiety disorder F41.1 Active 40237996 Problem GERD (gastroesophageal reflux disease) K21.9 Active 745725208 Problem Mixed hyperlipidemia E78.2 Active 201982861 Problem Intrinsic asthma J45.909 Active 829187730 Problem Migraine G43.909 Active 85573033 Problem Backache M54.9 Active 057794928 ALLERGIES Substance Reaction Event Type Date Status Gabapentin *anticonvulsants* ; pt states it gives her body tremors Non Drug Allergy Sep, Active ENCOUNTERS Encounter Location Date Diagnosis [facility] [address] [place] [address] Sep, [facility] [address] [place], [place] [id number] Sep, Acquired immune deficiency syndrome B20 ; Intrinsic asthma J45.909 and Open wound T14.8XXA [facility] [address] [place] [address] Sep, [facility] [address] [place] [address] Sep, [facility] [address] [place] [facility] [place] [address] Sep, [facility] [address] [place] [facility] [place] [address] Sep, Poor appetite R63.0 [facility] [address] [place] [facility] [place] [address] Sep, Backache M54.9 [facility] [address] [place] [facility] [place] [address] Sep, [facility] [address] [place] [facility] [place] [address] Aug, Generalized anxiety disorder F41.1 [facility] [address] [place] [facility] [place] [address] Aug, [facility] [address] [place] [facility] [place] [address] Aug, Backache M54.9 [facility] [address] [place] [facility] [place] [address] Aug, [facility] [address] [place] [facility] [place] [address] Aug, Spider bite T63.301A [facility] [address] [place] [facility] [place] [address] Aug, [facility] [address] [place] [facility] [place] [address] Aug, [facility] [address] [place] [facility] [place] [address] Aug, [facility] [address] [place] [facility] [place] [address] July, [facility] [address] [place] [facility] [place] [address] July, [facility] [address] [place] [facility] [place] [address] July, [facility] [address] [place] [facility] [place] [address] July, [facility] [address] [place] [facility] [place] [address] July, [facility] [address] [place] [facility] [place] [address] July, Poor appetite R63.0 and Backache M54.9 [facility] [address] [place] [facility] [place] [address] July, [facility] [address] [place] [facility] [place] [address] July, [facility] [address] [place] [facility] [place] [address] July, [facility] [address] [place] [facility] [place] [address] July, [facility] [address] [place] [facility] [place] [address] July, [facility] [address] [place] [facility] [place] [address] July, Nausea and vomiting R11.2 [facility] [address] [place] [facility] [place] [address] July, [facility] [address] [place] [facility] [place] [address] July, [facility] [address] [place] [facility] [place] [address] July, [facility] [address] [place] [facility] [place] [address] July, [facility] [address] [place] [facility] [place] [address] July, [facility] [address] [place] [facility] [place] [address] July, Other chronic pain G89.29 [facility] [address] [place] [facility] [place] [address] July, [facility] [address] [place] [place] [address] July, GERD (gastroesophageal reflux disease) K21.9 [facility] [address] [place] [facility] [place] [address] July, [facility] [address] [place] [facility] [place] [address] Jun, [facility] [address] [place] [facility] [place] [address] Jun, [facility] [address] [place] [address] Jun, [facility] [address] [place] [place] [address] Jun, [facility] [address] [place] [address] Jun, Other chronic pain G89.29 [facility] [address] [place] [place] [address] Jun, [facility] [address] [place] [address] Jun, [facility] [address] [place] [facility] [place] [address] Jun, [facility] [address] [place] [facility] [place] [address] Jun, [facility] [address] [place] [facility] [place] [address] Jun, [facility] [address] [place] [address] Jun, Generalized anxiety disorder F41.1 ; Other chronic pain G89.29 and Non-intractable cyclical vomiting with nausea G43.A0 [facility] [address] [place] [address] Jun, Acquired immune deficiency syndrome B20 ; halfway ( current) use of opiate analgesic Z79.891 ; Nicotine dependence, cigarettes, uncomplicated F17.210 ; Lower respiratory infection J22 ; Poor appetite R63.0 ; Other chronic pain G89.29 ; Generalized anxiety disorder F41.1 and Need for tetanus booster Z23 [facility] [address] [place] [address] Jun, [facility] [address] [place] [address] May, Generalized abdominal pain R10.84 [facility] [address] [place] [address] May, [facility] [address] [place] [address] Apr, AIDS B20 ; Generalized abdominal pain R10.84 and Dysmenorrhea N94.[address] [address] Apr, Acute URI J06.[address] [address] Apr, [address] [address] Apr, [facility] [address] [place] [id number] Apr, Acquired immune 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 syndrome B20 ; 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 and Migraine G43.[address] [address] Mar, Dysmenorrhea N94.[address] [address] Mar, [address] [address] Mar, Generalized anxiety disorder F41.1 and Generalized abdominal pain R10.[address] [address] Mar, [address] [address] Mar, Generalized abdominal pain R10.84 and Generalized anxiety disorder F41.[address] [address] Feb, [address] [address] Feb, Generalized abdominal pain R10.[address] [address] Jan, Nausea and vomiting R11.[address] [address] Jan, [address] [address] Jan, [address] [place] [address] Jan, [facility] [address] [place] [address] Jan, [facility] [address] [place] [address] Jan, [facility] [address] [place] [address] Jan, Mood swings F39 [facility] [address] [place] [address] Jan, [facility] [address] [place] [address] Jan, [facility] [address] [place] [address] Jan, [facility] [address] [place] [address] Jan, Dysmenorrhea N94.6 [facility] [address] [place] [id number] Jan, Acquired immune deficiency syndrome B20 ; Generalized abdominal pain R10.84 and Refused influenza vaccine Z28.21 [facility] [address] [place] [address] Jan, [facility] [address] [place] [address] Dec, Generalized abdominal pain R10.84 [facility] [address] [place] [address] Dec, Dysmenorrhea N94.6 [facility] [address] [place] [address] Dec, Backache M54.9 [facility] [address] [address] Nov, Generalized abdominal pain R10.[address] [address] Nov, Generalized anxiety disorder F41.1 [facility] [address] [place] [address] 08 Nov, 2016 Dysmenorrhea N94.6 [facility] [address] [place] [address] Oct, [facility] [address] [place] [address] Oct, [facility] [address] [place] [address] Oct, [facility] [address] [place] [address] Oct, Generalized abdominal pain R10.84 [facility] [address] [place] [id number] Oct, Acquired immune deficiency syndrome B20 ; 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 ; Bipolar affective disorder F31.9 ; Generalized anxiety disorder F41.1 ; Backache M54.9 ; Mixed hyperlipidemia E78.2 ; Nicotine dependence, cigarettes, uncomplicated F17.210 and Wheezing on auscultation R06.[address] [address] Oct, Oral candidiasis B37.[address] [address] Oct, [address] [address] Oct, Acute upper respiratory infection J06.[address] [address] Oct, Acute upper respiratory infection J06.[address] [address] Sep, Dysmenorrhea N94.6 [facility] [address] [place] [address] Sep, Generalized anxiety disorder F41.[address] [address] Sep, Dysmenorrhea N94.6 [facility] [address] [place] [address] Sep, [facility] [address] [address] Sep, Dysmenorrhea N94.6 [facility] [address] [place] [address] Aug, Acquired immune deficiency syndrome B20 [facility] [address] [place] [address] Aug, Generalized anxiety disorder F41.1 [facility] [address] [place] [address] Aug, [facility] [address] [place] [address] Aug, [facility] [address] [place] [address] Aug, [facility] [address] [place] [address] Aug, [facility] [address] [place] [address] Aug, [facility] [address] [place] [address] Aug, [facility] [address] [place] [address] Aug, [facility] [address] [place] [address] Aug, Acute opioid withdrawal F11.23 [facility] [address] [place] [address] July, Upper respiratory infection J06.9 [facility] [address] [place] [address] July, Backache M54.9 [facility] [address] [place] [id number] July, Acquired immune deficiency syndrome B20 ; 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 ; Hyperglycemia R73.9 ; Bipolar affective disorder F31.9 ; GERD (gastroesophageal reflux disease) K21.9 ; Backache M54.9 ; Generalized anxiety disorder F41.1 ; Mixed hyperlipidemia E78.2 ; Nicotine dependence, cigarettes, uncomplicated F17.210 and Localized edema R60.0 [facility] [address] [place] [address] July, [facility] [address] [place] [address] Jun, Backache M54.9 [facility] [address] [place] [address] Jun, Chronic pain G89.29 [facility] [address] [place] [address] May, Backache M54.9 [facility] [address] [place] [address] May, Backache M54.9 [facility] [address] [place] [address] Apr, Cough R05 [facility] [address] [place] [id number] Apr, Acquired immune deficiency syndrome B20 ; Screening examination for sexually transmitted disease Z11.3 ; Dermatitis L30.9 and Migraine with aura and with status migrainosus, not intractable G43.101 [facility] [address] [place] [address] Apr, Backache M54.[address] [address] Mar, Intrinsic asthma J45.909 ; Nausea and vomiting R11.2 and AIDS B20 [address] [address] Mar, Backache M54.9 [facility] [address] [place] [address] Feb, Chronic pain G89.29 [facility] [address] [place] [address] Feb, Backache M54.[address] [address] Jan, Argentine eye, 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 [facility] [address] [place] [address] Jan, Asthma, intrinsic 493.[address] [address] Jan, [facility] [address] [place] [address] Jan, [facility] [address] [place] [address] Jan, Backache M54.9 [facility] [address] [place] [address] 30 Dec, 2015 Chronic pain G89.29 [facility] [address] [facility] [place] [id number] Dec, AIDS B20 ; Influenza vaccine needed Z23 ; Intrinsic asthma J45.909 ; Backache M54.9 ; Generalized anxiety disorder F41.1 ; Nicotine dependence, cigarettes, uncomplicated F17.210 and Mixed hyperlipidemia E78.[address] [address] Dec, [address] [address] Dec, Dysmenorrhea N94.[address] [address] 18 Dec, 2015 [facility] [address] [place] [address] 17 Dec, 2015 Depression with anxiety F41.8 and Backache M54.9 [facility] [address] [place] [address] 19 Nov, 2015 [facility] [address] [place] [address] 19 Nov, 2015 Other chronic pain G89.29 [facility] [address] [place] [address] 18 Nov, 2015 Other chronic pain G89.29 [facility] [address] [place] [address] 18 Nov, 2015 [facility] [address] [place] [address] 14 Nov, 2015 Generalized anxiety disorder F41.[address] [address] 06 Nov, [address] [address] Nov, [facility] [address] [place] [address] Nov, Chronic pain G89.29 [facility] [address] [place] [address] Oct, [facility] [address] [place] [address] Oct, Other chronic pain G89.29 [facility] [address] [place] [address] Oct, [facility] [address] [place] [address] Oct, [facility] [address] [place] [address] Oct, Nausea and vomiting R11.[address] [address] Oct, Chronic pain G89.29 [facility] [address] [place] [address] Sep, [facility] [address] [place] [address] Sep, Acute upper respiratory infection, unspecified J06.[address] [address] Sep, Upper respiratory infection J06.9 [facility] [address] [place] [address] Sep, [facility] [address] [place] [address] Sep, [facility] [address] [place] [address] Sep, Other chronic pain G89.29 [facility] [address] [facility] [place] [address] Sep, AIDS B20 ; halfway (current) use of opiate analgesic Z79.891 ; Smoking F17.200 ; Mixed hyperlipidemia E78.2 ; Chronic pain G89.29 and Edema R60.9 [facility] [address] [place] [address] Sep, [facility] [address] [place] [facility] [place] [address] Sep, [facility] [address] [place] [facility] [place] [address] Aug, [facility] [address] [place] [facility] [place] [address] Aug, Other chronic pain G89.29 [facility] [address] [place] [facility] [place] [address] Aug, Generalized anxiety disorder F41.1 [facility] [address] [place] [facility] [place] [address] July, Other chronic pain G89.29 [facility] [address] [place] [facility] [place] [address] July, Other chronic pain G89.29 [facility] [address] [place] [facility] [place] [address] July, [facility] [address] [place] [facility] [place] [address] Jun, Generalized anxiety disorder F41.1 [facility] [address] [place] [facility] [place] [address] Jun, [facility] [address] [place] [facility] [place] [address] Jun, Other chronic pain G89.29 [facility] [address] [place] [facility] [place] [address] Jun, Rash and other nonspecific skin eruption R21 [facility] [address] [place] [facility] [place] [address] Jun, [facility] [address] [place] [facility] [place] [address] Jun, [facility] [address] [place] [facility] [place] [address] Jun, [facility] [address] [place] [facility] [place] [address] Jun, [facility] [address] [place] [facility] [place] [address] Jun, [facility] [address] [place] [facility] [place] [address] Jun, [facility] [address] [place] [facility] [place] [address] Jun, [facility] [address] [place] [facility] [place] [address] Jun, Other chronic pain G89.29 [facility] [address] [place] [facility] [place] [address] Jun, [facility] [address] [place] [facility] [place] [address] Jun, [facility] [address] [place] [facility] [place] [address] Jun, [facility] [address] [place] [facility] [place] [address] Jun, [facility] [address] [place] [facility] [place] [address] Jun, [facility] [address] [place] [facility] [place] [address] Jun, [facility] [address] [place] [facility] [place] [address] Jun, [facility] [address] [place] [facility] [place] [address] Jun, [facility] [address] [place] [facility] [place] [address] Jun, [facility] [address] [place] [facility] [place] [address] Jun, Nausea and vomiting R11.2 [facility] [address] [place] [facility] [place] [address] May, [facility] [address] [place] [facility] [place] [address] May, Rash and other nonspecific skin eruption R21 [facility] [address] [place] [facility] [place] [address] May, [facility] [address] [place] [facility] [place] [address] May, [facility] [address] [place] [facility] [place] [address] May, [facility] [address] [place] [address] May, [facility] [address] [place] [address] May, [facility] [address] [facility] [place] [address] May, Acquired immune deficiency syndrome B20 ; Screening examination for sexually transmitted disease Z11.3 ; Depression with anxiety F41.8 ; Other chronic pain G89.29 and Dermatitis L30.9 [facility] [address] [place] [address] May, [facility] [address] [place] [address] May, [facility] [address] [place] [address] May, [facility] [address] [place] [address] May, Backache M54.9 [facility] [address] [place] [address] May, Rash and other nonspecific skin eruption R21 [facility] [address] [place] [address] Apr, [facility] [address] [place] [address] Apr, [facility] [address] [place] [address] Apr, Other chronic pain G89.29 [facility] [address] [place] [address] Apr, [facility] [address] [place] [address] Apr, [facility] [address] [place] [address] Apr, [facility] [address] [place] [address] Apr, [facility] [address] [place] [address] Apr, [facility] [address] [place] [address] Apr, [facility] [address] [place] [address] Apr, [facility] [address] [place] [address] Apr, [facility] [address] [place] [address] Apr, [facility] [address] [place] [address] Apr, [facility] [address] [place] [address] Apr, Other chronic pain G89.29 ; Generalized anxiety disorder F41.1 ; Nausea R11.0 and AIDS B20 [address] [address] Apr, [address] [address] Apr, Generalized anxiety disorder F41.[address] [address] Apr, [address] [address] Apr, Other chronic pain G89.[address] [address] Mar, [facility] [address] [place] [id number] Mar, 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 [address] [place] [address] Feb, [facility] [address] [place] [address] Feb, [facility] [address] [place] [address] Feb, [facility] [address] [place] [address] Feb, [facility] [address] [place] [address] Jan, Other chronic pain G89.29 and Nausea & vomiting R11.2 [facility] [address] [place] [address] Jan, Other chronic pain G89.29 [facility] [address] [place] [address] Dec, [facility] [address] [place] [address] Dec, Other chronic pain G89.29 ; Asymptomatic HIV infection Z21 ; Intrinsic asthma J45.909 ; Bipolar affective disorder F31.9 ; Noncompliance Z91.19 ; Migraine G43.909 ; Tobacco use disorder Z72.0 ; GERD (gastroesophageal reflux disease) K21.9 ; Backache M54.9 and Generalized anxiety disorder F41.1 [facility] [address] [place] [address] Nov, [facility] [address] [place] [address] Nov, [facility] [address] [place] [address] Oct, Other chronic pain 338.29 [facility] [address] [place] [address] Oct, [address] [address] Oct, Unspecified backache 724.5 and Dysphagia 787.[address] [address] Sep, Other chronic pain 338.[address] [address] Sep, [address] [address] Aug, URI (upper respiratory infection) 465.9 and Diarrhea 787.[address] [address] Aug, [address] [address] Aug, Other chronic pain 338.[address] [address] Aug, Other chronic pain 338.29 and Generalized anxiety disorder 300.[address] [address] Aug, [address] [address] July, Other chronic pain 338.29 [facility] [address] [place] [address] July, Nondependent tobacco use disorder 305.1 ; Unspecified backache 724.5 ; Other chronic pain 338.29 ; Abdominal pain, unspecified site 789.00 ; 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 and Acquired immune deficiency syndrome [address] [address] July, Other chronic pain 338.[address] [address] Jun, Other chronic pain 338.[address] [address] Jun, [facility] [address] [place] [address] Jun, Other chronic pain 338.29 [facility] [address] [place] [address] Jun, URI (upper respiratory infection) 465.9 [facility] [address] [place] [address] Jun, Generalized anxiety disorder 300.02 and Seasonal allergies 477.9 [facility] [address] [place] [address] Jun, Generalized anxiety disorder 300.02 [facility] [address] [place] [address] May, Other chronic pain 338.29 [facility] [address] [place] [address] May, Other chronic pain 338.29 and Generalized anxiety disorder 300.02 [facility] [address] [place] [address] Apr, Asthma, intrinsic 493.10 and Acute upper respiratory infections of other multiple sites 465.8 [facility] [address] [place] [address] Apr, [facility] [address] [facility] [address] [place] [id number] Apr, Depressive disorder 311 [facility] [address] [place] [address] Apr, Other chronic pain 338.29 [facility] [address] [place] [address] Apr, [facility] [address] [place] [address] Apr, Other chronic pain 338.29 [facility] [address] [place] [address] Mar, Acute upper respiratory infections of unspecified site 465.9 [facility] [address] [place] [id number] Mar, Migraine 346.90 ; Nondependent tobacco use disorder 305.1 ; Esophageal reflux 530.81 ; Unspecified backache 724.5 ; Abdominal pain, generalized 789.07 ; Flatulence, eructation, and gas pain 787.3 ; Asymptomatic human immunodeficiency virus (HIV) infection status V08 ; Dyspepsia and other specified disorders of function of stomach 536.8 ; Nausea alone 787.02 and Asthma 493.[address] [address] Mar, Other chronic pain 338.[address] [address] Feb, Other chronic pain 338.29 and Generalized anxiety disorder 300.[address] [address] Feb, Abdominal pain, generalized 789.[address] [address] Jan, Abdominal pain, generalized 789.07 [facility] [address] [place] [id number] Dec, [address] [address] Dec, [address] [address] Dec, Unspecified backache 724.[address] [address] Dec, [address] [address] Nov, [facility] [address] [facility] [address] [place] [phone] Nov, [facility] [address] [facility] [address] [place] [id number] Nov, Bipolar disorder, unspecified 296.80 ; Abdominal pain, generalized 789.07 ; Generalized anxiety disorder 300.02 ; Nausea alone 787.02 ; Flu vaccine need V04.81 and Human immunodeficiency virus (HIV) disease [address] [address] Nov, [facility] [place] [facility] [address] [facility] [address] [place] [phone] Oct, [facility] [place] [facility] [address] [facility] [address] [place] [id number] Oct, [facility] [place] [facility] [address] [facility] [address] [place] [id number] Aug, [facility] [address] [place] [facility] [address] Jun, [facility] [address] [place] [facility] [address] Mar, [facility] [address] [place] [facility] [address] Oct, [facility] [address] [place] [facility] [address] July, [facility] [address] [place] [facility] [address] Jun, [facility] [address] [place] [facility] [address] May, [facility] [address] [place] [facility] [place] [address] Mar, [facility] [address] [place] [facility] [address] Feb, [facility] [address] [place] [facility] [address] Nov, [facility] [address] [place] [facility] [place] [address] Oct, [facility] [address] [place] [facility] [place] [address] Aug, [facility] [address] [place] [facility] [address] May, [facility] [address] [place] [facility] [place] [address] Mar, IMMUNIZATIONS No Known Immunizations SOCIAL HISTORY Never Assessed REASON FOR VISIT PLAN OF CARE Activity Details Follow Up 3 Months Reason: Pending Test Human Immunodeficiency Virus (HIV-1), Quantitative, Real-time PCR (graph) 81475 Pending Test Metabolic Panel (14), Comprehensive (CMP) 17362 Pending Test CD4/CD8 Ratio Profile 95593 VITAL SIGNS Height 65 in 2017-10-02 Weight 133 lbs 2017-10-02 Temperature 98.2 degrees Fahrenheit 2017-10-02 Heart Rate 86 /min 2017-10-02 Respiratory Rate 18 /min 2017-10-02 Oximetry 97 % 2017-10-02 BMI 22.13 kg/m2 2017-10-02 Blood pressure systolic 112 mm Hg 2017-10-02 Blood pressure diastolic 82 mm Hg 2017-10-02 MEDICATIONS Medication Instructions Dosage Frequency Start Date End Date Duration Status Dicyclomine HCl 20 MG Orally three times a day 1 tablet 8h July, 30 day(s) Active Zofran 4 MG Orally every 6 hours prn TAKE ONE TABLET BY MOUTH EVERY 8 HOURS FOR 10 DAYS 30 days Active Stribild [phone] MG Orally Once a day 1 tablet 24h Aug, 30 days Active Zithromax Z-Riky 250 MG Orally Once a day 1 tablet daily 24h May, Active Diflucan 150 Orally Once a day 1 tablet 24h 5 Active Marinol 10 MG Orally three times a day 1 capsule before lunch and supper 8h Jun, 30 days Active Montelukast Sodium 10 MG Orally Once a day 1 tablet in the evening 24h July, 30 day(s) Active Hydrochlorothiazide 25 MG [...] as needed 8h Mar, 30 day(s) Active [facility] Omeprazole 20 MG Orally Once a day 1 tablet 24h Mar, 30 day (s) Active Xanax 1 MG Orally once daily at bedtime 1 tablet as needed Sep, 30 days Active RESULTS No Results PROCEDURES Procedure Date Ordered Result Body Site T CELL, ABSOLUTE COUNT/RATIO October 02, 2017 HIV-1, DNA, QUANT October 02, 2017 COMPREHEN METABOLIC PANEL October 02, 2017 INSTRUCTIONS MEDICATIONS ADMINISTERED No Known Medications [...]
--- OUTSIDE RECORDS SUMMARY | 2018-03-22 14:01 | XMS REPORT ---
Author Author Dulce Herrera Organization [facility] Address [address], [place] [id number] Care Team Providers Care Patient Account Specialist Name Role Phone Dulce Herrera Unavailable PROBLEMS Type Condition ICD9-CM Code [id number] Code Onset Dates Condition Status SNOMED Code Problem Bipolar affective disorder F31.9 Active 65822967 Problem Nicotine dependence, cigarettes, uncomplicated F17.210 Active 68511042 Problem retirement (current) use of opiate analgesic Z79.891 Active 265095195 Problem Non-intractable cyclical vomiting with nausea G43.A0 Active 27661279 Problem Poor appetite R63.0 Active 48405621 Problem Wheezing on auscultation R06.2 Active 106006437 Problem Acquired immune deficiency syndrome B20 Active 82837556 Problem Other chronic pain G89.29 Active 75564337 Problem Mood swings F39 Active 83882707 Problem Generalized anxiety disorder F41.1 Active 13136953 Problem GERD (gastroesophageal reflux disease) K21.9 Active 783278985 Problem Mixed hyperlipidemia E78.2 Active 517032043 Problem Intrinsic asthma J45.909 Active 526551176 Problem Migraine G43.909 Active 08852108 Problem Backache M54.9 Active [id number] ALLERGIES No Information ENCOUNTERS Encounter Location Date Diagnosis [address] [address] Sep, [facility] [address] [place], [place] [id number] Sep, Acquired immune deficiency syndrome B20 ; Intrinsic asthma J45.909 and Open wound T14.8XXA [address] [address] Sep, [address] [address] Sep, [address] [address] Sep, [facility] [address] [place] [facility] [address] Sep, Poor appetite R63.0 [facility] [address] [place] [facility] [place] [address] Sep, Backache M54.9 [facility] [address] [place] [facility] [place] [address] Sep, [facility] [address] [place] [facility] [place] [address] Aug, Generalized anxiety disorder F41.1 [facility] [address] [place] [facility] [place] [address] Aug, [facility] [address] [place] [facility] [place] [address] Aug, Backache M54.9 [facility] [address] [place] [facility] [place] [address] Aug, [facility] [address] [place] [facility] [place] [address] Aug, Spider bite T63.301A [facility] [address] [place] [facility] [place] [address] Aug, [facility] [address] [place] [facility] [place] [address] Aug, [facility] [address] [place] [facility] [place] [address] Aug, [facility] [address] [place] [facility] [place] [address] July, [facility] [address] [place] [facility] [place] [address] July, [facility] [address] [place] [facility] [place] [address] July, [facility] [address] [place] [facility] [place] [address] July, [facility] [address] [place] [facility] [place] [address] July, [facility] [address] [place] [facility] [place] [address] July, Poor appetite R63.0 and Backache M54.9 [facility] [address] [place] [facility] [place] [address] July, [facility] [address] [place] [facility] [place] [address] July, [facility] [address] [place] [facility] [place] [address] July, [facility] [address] [place] [facility] [place] [address] July, [facility] [address] [place] [facility] [place] [address] July, [facility] [address] [place] [facility] [place] [address] July, Nausea and vomiting R11.2 [facility] [address] [place] [facility] [place] [address] July, [facility] [address] [place] [facility] [place] [address] July, [facility] [address] [place] [facility] [place] [address] July, [facility] [address] [place] [facility] [place] [address] July, [facility] [address] [place] [facility] [place] [address] July, [facility] [address] [place] [facility] [place] [address] July, Other chronic pain G89.29 [facility] [address] [place] [facility] [place] [address] July, [facility] [address] [place] [facility] [place] [address] July, GERD (gastroesophageal reflux disease) K21.9 [facility] [address] [place] [facility] [place] [address] July, [facility] [address] [place] [facility] [place] [address] Jun, [facility] [address] [place] [facility] [place] [address] Jun, [facility] [address] [place] [facility] [place] [address] Jun, [facility] [address] [place] [facility] [place] [address] Jun, [facility] [address] [place] [facility] [place] [address] Jun, Other chronic pain G89.29 [facility] [address] [place] [facility] [place] [address] Jun, [facility] [address] [place] [facility] [place] [address] Jun, [facility] [address] [place] [facility] [place] [address] Jun, [facility] [address] [place] [facility] [place] [address] Jun, [facility] [address] [place] [facility] [place] [address] Jun, [facility] [address] [place] [facility] [place] [address] Jun, Generalized anxiety disorder F41.1 ; Other chronic pain G89.29 and Non-intractable cyclical vomiting with nausea G43.A0 [facility] [address] [place], [place] [id number] Jun, 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 immune 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 syndrome 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 ; 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 ; Nicotine dependence, cigarettes, uncomplicated F17.210 ; Lower respiratory infection J22 ; Poor appetite R63.0 ; Other chronic pain G89.29 ; Generalized anxiety disorder F41.1 and Need for tetanus booster Z23 [facility] [address] [place] [address] Jun, [facility] [address] [place] [address] May, Generalized abdominal pain R10.84 [facility] [address] [place] [address] May, [facility] [address] [place] [address] Apr, AIDS B20 ; Generalized abdominal pain R10.84 and Dysmenorrhea N94.6 [facility] [address] [place] [address] Apr, Acute URI J06.9 [facility] [address] [place] [address] Apr, [facility] [address] [place] [address] Apr, [facility] [address] [place] [id number] Apr, Acquired immune 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 syndrome B20 ; 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 and Migraine G43.909 [facility] [address] [place] [address] Mar, Dysmenorrhea N94.6 [facility] [address] [place] [address] Mar, [address] [address] Mar, Generalized anxiety disorder F41.1 and Generalized abdominal pain R10.84 [facility] [address] [place] [address] Mar, [facility] [address] [place] [address] Mar, Generalized abdominal pain R10.84 and Generalized anxiety disorder F41.[address] [address] Feb, [facility] [address] [place] [address] Feb, Generalized abdominal pain R10.84 [facility] [address] [place] [address] Jan, Nausea and vomiting R11.2 [facility] [address] [place] [address] Jan, [facility] [address] [place] [address] Jan, [facility] [address] [address] Jan, [facility] [address] [place] [address] 15 Jan, 2017 [facility] [address] [place] [address] 14 Jan, 2017 [facility] [address] [place] [address] 08 Jan, 2017 Mood swings F39 [facility] [address] [place] [address] Jan, [facility] [address] [place] [address] Jan, [facility] [address] [place] [address] Jan, [facility] [address] [place] [address] Jan, Dysmenorrhea N94.6 [facility] [address] [place] [phone] Jan, Acquired immune deficiency syndrome B20 ; Generalized abdominal pain R10.84 and Refused influenza vaccine Z28.21 [facility] [address] [place] [address] Jan, [facility] [address] [place] [address] Dec, Generalized abdominal pain R10.84 [facility] [address] [address] Dec, Dysmenorrhea N94.6 [facility] [address] [place] [address] Dec, Backache M54.9 [facility] [address] [place] [address] Nov, Generalized abdominal pain R10.84 [facility] [address] [place] [address] Nov, Generalized anxiety disorder F41.1 [facility] [address] [place] [address] 08 Nov, 2016 Dysmenorrhea N94.6 [facility] [address] [address] Oct, [facility] [address] [place] [address] Oct, [facility] [address] [place] [address] Oct, [address] [address] Oct, Generalized abdominal pain R10.84 [facility] [address] [place] [id number] Oct, Acquired immune deficiency syndrome B20 ; retirement 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 Z79.891 ; Bipolar affective disorder F31.9 ; Generalized anxiety disorder F41.1 ; Backache M54.9 ; Mixed hyperlipidemia E78.2 ; Nicotine dependence, cigarettes, uncomplicated F17.210 and Wheezing on auscultation R06.[address] [address] Oct, Oral candidiasis B37.[address] [address] Oct, [address] [address] Oct, Acute upper respiratory infection J06.[address] [address] Oct, Acute upper respiratory infection J06.[address] [address] Sep, Dysmenorrhea N94.[address] [address] Sep, Generalized anxiety disorder F41.[address] [address] Sep, Dysmenorrhea N94.[address] [address] Sep, [address] [address] Sep, Dysmenorrhea N94.[address] [address] Aug, Acquired immune deficiency syndrome B20 [facility] [address] [place] [address] Aug, Generalized anxiety disorder F41.1 [facility] [address] [place] [address] Aug, [facility] [address] [place] [address] Aug, [facility] [address] [place] [address] Aug, [facility] [address] [place] [address] Aug, [facility] [address] [place] [address] Aug, [facility] [address] [place] [address] Aug, [facility] [address] [place] [address] Aug, [facility] [address] [place] [address] Aug, Acute opioid withdrawal F11.23 [facility] [address] [place] [address] July, Upper respiratory infection J06.9 [facility] [address] [place] [address] July, Backache M54.9 [facility] [address] [place] [id number] July, Acquired immune deficiency syndrome B20 ; retirement 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 Z79.891 ; Hyperglycemia R73.9 ; Bipolar affective disorder F31.9 ; GERD (gastroesophageal reflux disease) K21.9 ; Backache M54.9 ; Generalized anxiety disorder F41.1 ; Mixed hyperlipidemia E78.2 ; Nicotine dependence, cigarettes, uncomplicated F17.210 and Localized edema R60.0 [facility] [address] [place] [address] July, [facility] [address] [place] [address] Jun, Backache M54.[address] [address] Jun, Chronic pain G89.[address] [address] May, Backache M54.[address] [address] May, Backache M54.[address] [address] Apr, Cough R05 [facility] [address] [place] [id number] Apr, Acquired immune deficiency syndrome B20 ; Screening examination for sexually transmitted disease Z11.3 ; Dermatitis L30.9 and Migraine with aura and with status migrainosus, not intractable G43.[address] [address] Apr, Backache M54.[address] [address] Mar, Intrinsic asthma J45.909 ; Nausea and vomiting R11.2 and AIDS B20 [address] [address] Mar, Backache M54.[address] [address] Feb, Chronic pain G89.[address] [address] Feb, Backache M54.[address] [address] Jan, [place] eye, 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 [address] Jan, Asthma, intrinsic 493.[address] [address] Jan, [address] [address] Jan, [facility] [address] [place] [address] Jan, Backache M54.[address] [address] 30 Dec, 2015 Chronic pain G89.29 [facility] [address] [facility] [place] [phone] Dec, AIDS B20 ; Influenza vaccine needed Z23 ; Intrinsic asthma J45.909 ; Backache M54.9 ; Generalized anxiety disorder F41.1 ; Nicotine dependence, cigarettes, uncomplicated F17.210 and Mixed hyperlipidemia E78.[address] [address] Dec, [address] [address] Dec, Dysmenorrhea N94.[address] [address] Dec, [address] [address] 17 Dec, 2015 Depression with anxiety F41.8 and Backache M54.[address] [address] 19 Nov, [address] [address] 19 Nov, 2015 Other chronic pain G89.[address] [address] 18 Nov, 2015 Other chronic pain G89.[address] [address] 18 Nov, [address] [address] 14 Nov, 2015 Generalized anxiety disorder F41.[address] [address] 06 Nov, [address] [address] 06 Nov, [address] [address] Nov, Chronic pain G89.29 [facility] [address] [place] [address] Oct, [facility] [address] [place] [address] Oct, Other chronic pain G89.29 [facility] [address] [place] [address] Oct, [facility] [address] [place] [address] Oct, [facility] [address] [place] [address] Oct, Nausea and vomiting R11.[address] [address] Oct, Chronic pain G89.29 [facility] [address] [place] [address] Sep, [facility] [address] [place] [address] Sep, Acute upper respiratory infection, unspecified J06.9 [facility] [address] [place] [address] Sep, Upper respiratory infection J06.[address] [address] Sep, [facility] [address] [place] [address] Sep, [facility] [address] [place] [address] Sep, Other chronic pain G89.29 [facility] [address] [facility] [address] [place] [address] Sep, AIDS B20 ; 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 ; Smoking F17.200 ; Mixed hyperlipidemia E78.2 ; Chronic pain G89.29 and Edema R60.9 [facility] [address] [place] [address] Sep, [facility] [address] [place] [address] Sep, [facility] [address] [place] [facility] [place] [address] Aug, [facility] [address] [place] [facility] [place] [address] Aug, Other chronic pain G89.29 [facility] [address] [place] [facility] [place] [address] Aug, Generalized anxiety disorder F41.1 [facility] [address] [place] [facility] [place] [address] July, Other chronic pain G89.29 [facility] [address] [place] [facility] [place] [address] July, Other chronic pain G89.29 [facility] [address] [place] [facility] [place] [address] July, [facility] [address] [place] [facility] [place] [address] Jun, Generalized anxiety disorder F41.1 [facility] [address] [place] [facility] [place] [address] Jun, [facility] [address] [place] [facility] [place] [address] Jun, Other chronic pain G89.29 [facility] [address] [place] [facility] [place] [address] Jun, Rash and other nonspecific skin eruption R21 [facility] [address] [place] [facility] [place] [address] Jun, [facility] [address] [place] [facility] [place] [address] Jun, [facility] [address] [place] [facility] [place] [address] Jun, [facility] [address] [place] [facility] [place] [address] Jun, [facility] [address] [place] [facility] [place] [address] Jun, [facility] [address] [place] [facility] [place] [address] Jun, [facility] [address] [place] [facility] [place] [address] Jun, [facility] [address] [place] [facility] [place] [address] Jun, Other chronic pain G89.29 [facility] [address] [place] [facility] [place] [address] Jun, [facility] [address] [place] [facility] [place] [address] Jun, [facility] [address] [place] [facility] [place] [address] Jun, [facility] [address] [place] [facility] [place] [address] Jun, [facility] [address] [place] [facility] [place] [address] Jun, [facility] [address] [place] [facility] [place] [address] Jun, [facility] [address] [place] [facility] [place] [address] Jun, [facility] [address] [place] [facility] [place] [address] Jun, [facility] [address] [place] [facility] [place] [address] Jun, [facility] [address] [place] [facility] [place] [address] Jun, Nausea and vomiting R11.2 [facility] [address] [place] [facility] [place] [address] May, [facility] [address] [place] [facility] [place] [address] May, Rash and other nonspecific skin eruption R21 [facility] [address] [place] [facility] [place] [address] May, [facility] [address] [place] [facility] [place] [address] May, [facility] [address] [place] [facility] [place] [address] May, [facility] [address] [place] [facility] [place] [address] May, [facility] [address] [place] [address] May, [place] [facility] [address] [place] [phone] May, Acquired immune deficiency syndrome B20 ; Screening examination for sexually transmitted disease Z11.3 ; Depression with anxiety F41.8 ; Other chronic pain G89.29 and Dermatitis L30.9 [facility] [address] [place] [address], [place] [address] May, [facility] [address] [place] [address] May, [facility] [address] [place] [address] May, [facility] [address] [place] [address] May, Backache M54.9 [facility] [address] [place] [address] May, Rash and other nonspecific skin eruption R21 [facility] [address] [place] [address] Apr, [facility] [address] [place] [address] Apr, [facility] [address] [place] [address] Apr, Other chronic pain G89.29 [facility] [address] [place] [address] Apr, [facility] [address] [place] [address] Apr, [facility] [address] [place] [address] Apr, [facility] [address] [place] [address] Apr, [facility] [address] [place] [address] Apr, [facility] [address] [place] [address] Apr, [facility] [address] [place] [address] Apr, [facility] [address] [place] [address] Apr, [facility] [address] [place] [address] Apr, [facility] [address] [place] [address] Apr, [facility] [address] [place] [address] Apr, Other chronic pain G89.29 ; Generalized anxiety disorder F41.1 ; Nausea R11.0 and AIDS B20 [address] [address] Apr, [address] [address] Apr, Generalized anxiety disorder F41.[address] [address] Apr, [address] [address] Apr, Other chronic pain G89.[address] [address] Mar, [facility] [address] [place] [id number] Mar, 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 ; Bipolar affective disorder F31.9 ; Smoking F17.200 ; Generalized anxiety disorder F41.1 ; Influenza vaccine administered Z23 and AIDS B20 [facility] [address] [place] [address] Mar, Other chronic pain G89.[address] [address] Mar, Generalized anxiety disorder F41.[address] [address] Mar, [address] [address] Mar, Asymptomatic HIV infection Z21 [facility] [address] [place] [address] Mar, Other chronic pain G89.29 [facility] [address] [place] [address] Feb, [facility] [address] [place] [address] Feb, [facility] [address] [place] [address] Feb, [facility] [address] [place] [address] Feb, [facility] [address] [place] [address] Feb, [facility] [address] [place] [address] Jan, Other chronic pain G89.29 and Nausea & vomiting R11.2 [facility] [address] [place] [address] Jan, Other chronic pain G89.29 [facility] [address] [place] [address] Dec, [facility] [address] [place] [address] Dec, Other chronic pain G89.29 ; Asymptomatic HIV infection Z21 ; Intrinsic asthma J45.909 ; Bipolar affective disorder F31.9 ; Noncompliance Z91.19 ; Migraine G43.909 ; Tobacco use disorder Z72.0 ; GERD (gastroesophageal reflux disease) K21.9 ; Backache M54.9 and Generalized anxiety disorder F41.1 [facility] [address] [place] [address] Nov, [facility] [address] [place] [address] Nov, [facility] [address] [place] [address] Oct, Other chronic pain 338.29 [facility] [address] [place] [address] Oct, [facility] [address] [place] [address] Oct, Unspecified backache 724.5 and Dysphagia 787.20 [facility] [address] [place] [address] Sep, Other chronic pain 338.[address] [address] Sep, [address] [address] Aug, URI (upper respiratory infection) 465.9 and Diarrhea 787.[address] [address] Aug, [address] [address] Aug, Other chronic pain 338.29 [address] [address] [address] Aug, Other chronic pain 338.29 and Generalized anxiety disorder 300.[address] [address] Aug, [address] [address] July, Other chronic pain 338.29 [facility] [address] [place], [place] [id number] July, Nondependent tobacco use disorder 305.1 ; Unspecified backache 724.5 ; Other chronic pain 338.29 ; Abdominal pain, unspecified site 789.00 ; 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 and Acquired immune deficiency syndrome [address] [address] July, Other chronic pain 338.[address] [address] Jun, Other chronic pain 338.[address] [address] Jun, [address] [address] Jun, Other chronic pain 338.29 [facility] [address] [place] [address] Jun, URI (upper respiratory infection) 465.9 [facility] [address] [place] [address] Jun, Generalized anxiety disorder 300.02 and Seasonal allergies 477.9 [facility] [address] [place] [address] Jun, Generalized anxiety disorder 300.02 [facility] [address] [place] [address] May, Other chronic pain 338.29 [facility] [address] [place] [address] May, Other chronic pain 338.29 and Generalized anxiety disorder 300.02 [facility] [address] [place] [address] Apr, Asthma, intrinsic 493.10 and Acute upper respiratory infections of other multiple sites 465.8 [facility] [address] [place] [address] Apr, [facility] [address] [facility] [address] [place] [id number] Apr, Depressive disorder 311 [facility] [address] [place] [address] Apr, Other chronic pain 338.29 [facility] [address] [place] [address] Apr, [facility] [address] [place] [address] Apr, Other chronic pain 338.29 [facility] [address] [place] [address] Mar, Acute upper respiratory infections of unspecified site 465.9 [facility] [address] [place] [id number] Mar, Migraine 346.90 ; Nondependent tobacco use disorder 305.1 ; Esophageal reflux 530.81 ; Unspecified backache 724.5 ; Abdominal pain, generalized 789.07 ; Flatulence, eructation, and gas pain 787.3 ; Asymptomatic human immunodeficiency virus (HIV) infection status V08 ; Dyspepsia and other specified disorders of function of stomach 536.8 ; Nausea alone 787.02 and Asthma 493.[address] [address] Mar, Other chronic pain 338.[address] [address] Feb, Other chronic pain 338.29 and Generalized anxiety disorder 300.[address] [address] Feb, Abdominal pain, generalized 789.[address] [address] Jan, Abdominal pain, generalized 789.[address] [id number] Dec, [address] [address] Dec, [address] [address] Dec, Unspecified backache 724.[address] [address] Dec, [address] [address] Nov, [place] [id number] [id number] Nov, [facility] [address] [place] [id number] Nov, Bipolar disorder, unspecified 296.80 ; Abdominal pain, generalized 789.07 ; Generalized anxiety disorder 300.02 ; Nausea alone 787.02 ; Flu vaccine need V04.81 and Human immunodeficiency virus (HIV) disease [address] [address] Nov, [facility] [address] [id number] Oct, [place] [id number] [facility] [address] [place] [id number] Oct, [facility] [address] [facility] [address] [place] [id number] Aug, [facility] [address] [place] [facility] [address] Jun, [facility] [address] [place] [facility] [address] Mar, [facility] [address] [place] [facility] [address] Oct, [facility] [address] [place] [facility] [address] July, [facility] [address] [place] [facility] [address] Jun, [facility] [address] [place] [facility] [address] May, [facility] [address] [place] [facility] [address] Mar, [facility] [address] [place] [facility] [address] Feb, [facility] [address] [place] [facility] [address] Nov, [facility] [address] [place] [facility] [address] Oct, [facility] [address] [place] [facility] [address] Aug, [facility] [address] [place] [facility] [address] May, [facility] [address] [place] [facility] [address] Mar, IMMUNIZATIONS No Known Immunizations SOCIAL HISTORY Never Assessed REASON FOR VISIT Critical Lab PLAN OF CARE VITAL SIGNS MEDICATIONS Unknown [...]
--- OUTSIDE RECORDS SUMMARY | 2018-03-22 14:02 | XMS REPORT ---
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 Active 422886642 Problem Non-intractable cyclical vomiting with nausea G43.A0 Active 24455667 Problem Poor appetite R63.0 Active 66188908 Problem Wheezing on auscultation R06.2 Active 441678050 Problem Acquired immune deficiency syndrome B20 Active 39842668 Problem Other chronic pain G89.29 Active 14263171 Problem Mood swings F39 Active 29292888 Problem Generalized anxiety disorder F41.1 Active 78402596 Problem GERD (gastroesophageal reflux disease) K21.9 Active 270531774 Problem Mixed hyperlipidemia E78.2 Active 537178101 Problem Intrinsic asthma J45.909 Active 799747193 Problem Migraine G43.909 Active 23087969 Problem Backache M54.9 Active 648065975 ALLERGIES No Information ENCOUNTERS Encounter Location Date Diagnosis [facility] [address] [facility] [address] [place], [place] [id number] Sep, [facility] [address] [place] [address] Sep, [facility] [address] [place] [address] Sep, [facility] [address] [place] [address] Sep, [facility] [address] [place] [address] Sep, Poor appetite R63.0 [facility] [address] [place] [address], [place] [address] Sep, Backache M54.9 [facility] [address] [place] [facility] [place] [address] Sep, [facility] [address] [place] [facility] [place] [address] Aug, Generalized anxiety disorder F41.1 [facility] [address] [place] [facility] [place] [address] Aug, [facility] [address] [place] [facility] [place] [address] Aug, Backache M54.9 [facility] [address] [place] [facility] [place] [address] Aug, [facility] [address] [place] [facility] [place] [address] Aug, Spider bite T63.301A [facility] [address] [place] [address] Aug, [facility] [address] [place] [facility] [place] [address] Aug, [facility] [address] [place] [facility] [place] [address] Aug, [facility] [address] [place] [facility] [place] [address] July, [facility] [address] [place] [address] July, [facility] [address] [place] [address] July, [facility] [address] [place] [address] July, [facility] [address] [place] [address] July, [facility] [address] [place] [address] July, Poor appetite R63.0 and Backache M54.9 [facility] [address] [place] [address] July, [facility] [address] [place] [address] July, [facility] [address] [place] [facility] [place] [address] July, [facility] [address] [place] [facility] [place] [address] July, [facility] [address] [place] [facility] [place] [address] July, [facility] [address] [place] [facility] [place] [address] July, Nausea and vomiting R11.2 [facility] [address] [place] [facility] [place] [address] July, [facility] [address] [place] [facility] [place] [address] July, [facility] [address] [place] [facility] [place] [address] July, [facility] [address] [place] [facility] [place] [address] July, [facility] [address] [place] [facility] [place] [address] July, [facility] [address] [place] [facility] [place] [address] July, Other chronic pain G89.29 [facility] [address] [place] [facility] [place] [address] July, [facility] [address] [place] [facility] [place] [address] July, GERD (gastroesophageal reflux disease) K21.9 [facility] [address] [place] [facility] [place] [address] July, [facility] [address] [place] [facility] [place] [address] Jun, [facility] [address] [place] [facility] [place] [address] Jun, [facility] [address] [place] [facility] [place] [address] Jun, [facility] [address] [place] [facility] [place] [address] Jun, [facility] [address] [place] [address] Jun, Other chronic pain G89.29 [facility] [address] [place] [address] Jun, [facility] [address] [place] [address] Jun, [facility] [address] [place] [address] Jun, [facility] [address] [place] [address] Jun, [facility] [address] [place] [address] Jun, [facility] [address] [place] [address] Jun, Generalized anxiety disorder F41.1 ; Other chronic pain G89.29 and Non-intractable cyclical vomiting with nausea G43.A0 [facility] [address] [place] [phone] Jun, Acquired immune deficiency syndrome B20 ; 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 ; Nicotine dependence, cigarettes, uncomplicated F17.210 ; Lower respiratory infection J22 ; Poor appetite R63.0 ; Other chronic pain G89.29 ; Generalized anxiety disorder F41.1 and Need for tetanus booster Z23 [facility] [address] [place] [address] Jun, [facility] [address] [place] [address] May, Generalized abdominal pain R10.84 [facility] [address] [place] [address] May, [facility] [address] [place] [address] Apr, AIDS B20 ; Generalized abdominal pain R10.84 and Dysmenorrhea N94.6 [facility] [address] [place] [address] Apr, Acute URI J06.[address] [address] Apr, [facility] [address] [place] [address] Apr, [facility] [address] [facility] [address] [place] [id number] Apr, Acquired immune deficiency syndrome B20 ; nursing home ( current) use of opiate analgesic Z79.891 and Migraine G43.909 [facility] [address] [place] [address] Mar, Dysmenorrhea N94.6 [facility] [address] [place] [address] Mar, [facility] [address] [place] [address] Mar, Generalized anxiety disorder F41.1 and Generalized abdominal pain R10.84 [facility] [address] [address] Mar, [facility] [address] [place] [address] Mar, Generalized abdominal pain R10.84 and Generalized anxiety disorder F41.1 [facility] [address] [address] Feb, [facility] [address] [place] [address] Feb, Generalized abdominal pain R10.84 [facility] [address] [address] Jan, Nausea and vomiting R11.2 [facility] [address] [place] [address] Jan, [facility] [address] [place] [address] Jan, [facility] [address] [place] [address] Jan, [facility] [address] [place] [address] Jan, [facility] [address] [place] [address] Jan, [facility] [address] [place] [address] Jan, Mood swings F39 [facility] [address] [place] [address] Jan, [facility] [address] [place] [address] Jan, [facility] [address] [place] [address] Jan, [facility] [address] [place] [address] Jan, Dysmenorrhea N94.6 [facility] [address] [place] [phone] Jan, Acquired immune deficiency syndrome B20 ; Generalized abdominal pain R10.84 and Refused influenza vaccine Z28.21 [facility] [address] [place] [address] Jan, [facility] [address] [place] [address] Dec, Generalized abdominal pain R10.84 [facility] [address] [place] [address] Dec, Dysmenorrhea N94.6 [facility] [address] [place] [address] Dec, Backache M54.9 [facility] [address] [place] [address] Nov, Generalized abdominal pain R10.84 [facility] [address] [place] [address] Nov, Generalized anxiety disorder F41.1 [facility] [address] [place] [address] Nov, Dysmenorrhea N94.6 [facility] [address] [place] [address] Oct, [facility] [address] [place] [address] Oct, [facility] [address] [place] [address] Oct, [facility] [address] [place] [address] Oct, Generalized abdominal pain R10.84 [facility] [address] [facility] [address] [place] [id number] Oct, Acquired immune deficiency syndrome B20 ; nursing home 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 Z79.891 ; Bipolar affective disorder F31.9 ; Generalized anxiety disorder F41.1 ; Backache M54.9 ; Mixed hyperlipidemia E78.2 ; Nicotine dependence, cigarettes, uncomplicated F17.210 and Wheezing on auscultation R06.[address] [address] Oct, Oral candidiasis B37.[address] [address] Oct, [address] [address] Oct, Acute upper respiratory infection J06.9 [facility] [address] [address] Oct, Acute upper respiratory infection J06.[address] [address] Sep, Dysmenorrhea N94.[address] [address] Sep, Generalized anxiety disorder F41.[address] [address] Sep, Dysmenorrhea N94.6 [facility] [address] [place] [address] Sep, [facility] [address] [place] [address] Sep, Dysmenorrhea N94.6 [facility] [address] [address] Aug, Acquired immune deficiency syndrome B20 [facility] [address] [address] Aug, Generalized anxiety disorder F41.1 [facility] [address] [place] [address] Aug, [facility] [address] [place] [address] Aug, [facility] [address] [place] [facility] [place] [address] Aug, [facility] [address] [place] [address] Aug, [facility] [address] [place] [address] Aug, [facility] [address] [place] [address] Aug, [facility] [address] [place] [address] Aug, [facility] [address] [place] [address] Aug, Acute opioid withdrawal F11.23 [facility] [address] [place] [address] July, Upper respiratory infection J06.9 [facility] [address] [place] [address] July, Backache M54.9 [facility] [address] [place] [phone] July, Acquired immune deficiency syndrome B20 ; 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 ; Hyperglycemia R73.9 ; Bipolar affective disorder F31.9 ; GERD (gastroesophageal reflux disease) K21.9 ; Backache M54.9 ; Generalized anxiety disorder F41.1 ; Mixed hyperlipidemia E78.2 ; Nicotine dependence, cigarettes, uncomplicated F17.210 and Localized edema R60.0 [facility] [address] [place] [address] July, [facility] [address] [place] [address] Jun, Backache M54.9 [facility] [address] [place] [address] Jun, Chronic pain G89.29 [facility] [address] [place] [address] May, Backache M54.[address] [address] May, Backache M54.[address] [address] Apr, Cough R05 [facility] [address] [facility] [address] [place] [id number] Apr, Acquired immune deficiency syndrome B20 ; Screening examination for sexually transmitted disease Z11.3 ; Dermatitis L30.9 and Migraine with aura and with status migrainosus, not intractable G43.[address] [address] Apr, Backache M54.[address] [address] Mar, Intrinsic asthma J45.909 ; Nausea and vomiting R11.2 and AIDS B20 [address] [address] Mar, Backache M54.[address] [address] Feb, Chronic pain G89.[address] [address] Feb, Backache M54.[address] [address] Jan, [place] eye, 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 [address] Jan, Asthma, intrinsic 493.[address] [address] Jan, [address] [address] Jan, [address] [address] Jan, Backache M54.[address] [place] [address] 30 Dec, 2015 Chronic pain G89.29 [facility] [address] [facility] [address] [place] [phone] Dec, AIDS B20 ; Influenza vaccine needed Z23 ; Intrinsic asthma J45.909 ; Backache M54.9 ; Generalized anxiety disorder F41.1 ; Nicotine dependence, cigarettes, uncomplicated F17.210 and Mixed hyperlipidemia E78.2 [facility] [address] [place] [address] Dec, [facility] [address] [place] [address] Dec, Dysmenorrhea N94.[address] [address] Dec, [facility] [address] [place] [address] Dec, Depression with anxiety F41.8 and Backache M54.[address] [address] Nov, [facility] [address] [place] [address] Nov, Other chronic pain G89.[address] [address] 18 Nov, 2015 Other chronic pain G89.[address] [address] 18 Nov, 2015 [facility] [address] [place] [address] 14 Nov, 2015 Generalized anxiety disorder F41.1 [facility] [address] [place] [address] 06 Nov, 2015 [facility] [address] [place] [address] Nov, [facility] [address] [place] [address] 04 Nov, 2015 Chronic pain G89.29 [facility] [address] [place] [address] Oct, [facility] [address] [place] [address] Oct, Other chronic pain G89.29 [facility] [address] [place] [address] Oct, [facility] [address] [place] [address] Oct, [facility] [address] [place] [address] Oct, Nausea and vomiting R11.2 [facility] [address] [place] [address] Oct, Chronic pain G89.29 [facility] [address] [place] [address] Sep, [facility] [address] [place] [address] Sep, Acute upper respiratory infection, unspecified J06.9 [facility] [address] [place] [address] Sep, Upper respiratory infection J06.9 [facility] [address] [place] [address] Sep, [facility] [address] [place] [address] Sep, [facility] [address] [place] [address] Sep, Other chronic pain G89.29 [facility] [address] [place], [place] [id number] Sep, AIDS B20 ; 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 ; Smoking F17.200 ; Mixed hyperlipidemia E78.2 ; Chronic pain G89.29 and Edema R60.9 [facility] [address] [place] [address] Sep, [facility] [address] [place] [address] Sep, [facility] [address] [place] [address] Aug, [facility] [address] [place] [address] [place] [address] Aug, Other chronic pain G89.29 [facility] [address] [facility] [place] [address] Aug, Generalized anxiety disorder F41.1 [facility] [address] [place] [facility] [place] [address] July, Other chronic pain G89.29 [facility] [address] [place] [facility] [place] [address] July, Other chronic pain G89.29 [facility] [address] [place] [facility] [place] [address] July, [facility] [address] [place] [facility] [place] [address] Jun, Generalized anxiety disorder F41.1 [facility] [address] [place] [facility] [place] [address] Jun, [facility] [address] [place] [facility] [place] [address] Jun, Other chronic pain G89.29 [facility] [address] [place] [facility] [place] [address] Jun, Rash and other nonspecific skin eruption R21 [facility] [address] [place] [facility] [place] [address] Jun, [facility] [address] [place] [facility] [place] [address] Jun, [facility] [address] [place] [facility] [place] [address] Jun, [facility] [address] [place] [facility] [place] [address] Jun, [facility] [address] [place] [facility] [place] [address] Jun, [facility] [address] [place] [facility] [place] [address] Jun, [facility] [address] [place] [facility] [place] [address] Jun, [facility] [address] [place] [facility] [place] [address] Jun, Other chronic pain G89.29 [facility] [address] [place] [facility] [place] [address] Jun, [facility] [address] [place] [facility] [place] [address] Jun, [facility] [address] [facility] [place] [address] Jun, [facility] [address] [place] [facility] [place] [address] Jun, [facility] [address] [place] [facility] [place] [address] Jun, [facility] [address] [place] [facility] [place] [address] Jun, [facility] [address] [facility] [place] [address] Jun, [facility] [address] [place] [facility] [place] [address] Jun, [facility] [address] [place] [facility] [place] [address] Jun, [facility] [address] [facility] [place] [address] Jun, Nausea and vomiting R11.2 [facility] [address] [place] [facility] [place] [address] May, [facility] [address] [place] [facility] [place] [address] May, Rash and other nonspecific skin eruption R21 [facility] [address] [place] [facility] [place] [address] May, [facility] [address] [place] [facility] [place] [address] May, [facility] [address] [place] [facility] [place] [address] May, [facility] [address] [facility] [place] [address] May, [facility] [address] [place] [facility] [place] [address] May, [facility] [address] [place] [phone] May, Acquired immune deficiency syndrome B20 ; Screening examination for sexually transmitted disease Z11.3 ; Depression with anxiety F41.8 ; Other chronic pain G89.29 and Dermatitis L30.9 [facility] [address] [place] [address] May, [facility] [address] [place] [address] May, [facility] [address] [place] [address] May, [facility] [address] [place] [address] May, Backache M54.9 [facility] [address] [address] May, Rash and other nonspecific skin eruption R21 [facility] [address] [address] Apr, [facility] [address] [place] [address] Apr, [facility] [address] [place] [address] Apr, Other chronic pain G89.29 [facility] [address] [place] [address] Apr, [facility] [address] [place] [address] Apr, [facility] [address] [place] [address] Apr, [facility] [address] [place] [address] Apr, [facility] [address] [place] [address] Apr, [facility] [address] [place] [address] Apr, [facility] [address] [place] [address] Apr, [facility] [address] [place] [address] Apr, [facility] [address] [place] [address] Apr, [facility] [address] [place] [address] Apr, [facility] [address] [place] [address] Apr, Other chronic pain G89.29 ; Generalized anxiety disorder F41.1 ; Nausea R11.0 and AIDS B20 [facility] [address] [place] [address] Apr, [facility] [address] [place] [address] Apr, Generalized anxiety disorder F41.1 [facility] [address] [place] [address] Apr, [facility] [address] [place] [address] Apr, Other chronic pain G89.29 [facility] [address] [place] [address] Mar, [facility] [address] [place] [id number] Mar, nursing home (current) use of opiate analgesic Z79.891 ; Bipolar affective disorder F31.9 ; Smoking F17.200 ; Generalized anxiety disorder F41.1 ; Influenza vaccine administered Z23 and AIDS B20 [facility] [address] [place] [address] Mar, Other chronic pain G89.29 [facility] [address] [place] [address] Mar, Generalized anxiety disorder F41.1 [facility] [address] [place] [address] Mar, [facility] [address] [place] [address] Mar, Asymptomatic HIV infection Z21 [address] [address] Mar, Other chronic pain G89.29 [facility] [address] [place] [address] Feb, [facility] [address] [place] [address] Feb, [facility] [address] [place] [address] Feb, [facility] [address] [place] [address] Feb, [facility] [address] [place] [address] Feb, [facility] [address] [place] [address] Jan, Other chronic pain G89.29 and Nausea & vomiting R11.[address] [address] Jan, Other chronic pain G89.29 [facility] [address] [place] [address] Dec, [facility] [address] [place] [address] Dec, Other chronic pain G89.29 ; Asymptomatic HIV infection Z21 ; Intrinsic asthma J45.909 ; Bipolar affective disorder F31.9 ; Noncompliance Z91.19 ; Migraine G43.909 ; Tobacco use disorder Z72.0 ; GERD (gastroesophageal reflux disease) K21.9 ; Backache M54.9 and Generalized anxiety disorder F41.1 [facility] [address] [place] [address] Nov, [facility] [address] [place] [address] Nov, [facility] [address] [place] [address] Oct, Other chronic pain 338.[address] [address] Oct, [facility] [address] [place] [address] Oct, Unspecified backache 724.5 and Dysphagia 787.[address] [address] Sep, Other chronic pain 338.[address] [address] Sep, [address] [address] 30 Aug, 2014 URI (upper respiratory infection) 465.9 and Diarrhea 787.[address] [address] Aug, [address] [address] Aug, Other chronic pain 338.[address] [address] Aug, Other chronic pain 338.29 and Generalized anxiety disorder 300.[address] [address] Aug, [address] [address] July, Other chronic pain 338.29 [facility] [address] [place] [id number] July, Nondependent tobacco use disorder 305.1 ; Unspecified backache 724.5 ; Other chronic pain 338.29 ; Abdominal pain, unspecified site 789.00 ; nursing home (current) use of opiate analgesic V58.69 and Acquired immune deficiency syndrome [address] [address] July, Other chronic pain 338.[address] [address] Jun, Other chronic pain 338.[address] [address] Jun, [address] [address] Jun, Other chronic pain 338.[address] [address] Jun, URI (upper respiratory infection) 465.9 [facility] [address] [place] [address] Jun, Generalized anxiety disorder 300.02 and Seasonal allergies 477.[address] [address] Jun, Generalized anxiety disorder 300.[address] [address] May, Other chronic pain 338.[address] [address] May, Other chronic pain 338.29 and Generalized anxiety disorder 300.[address] [address] Apr, Asthma, intrinsic 493.10 and Acute upper respiratory infections of other multiple sites 465.[address] [address] Apr, [facility] [address] [facility] [address] [place], [place] [id number] Apr, Depressive disorder [address] [address] Apr, Other chronic pain 338.[address] [address] Apr, [address] [address] Apr, Other chronic pain 338.[address] [address] Mar, Acute upper respiratory infections of unspecified site 465.9 [facility] [address] [place] [id number] Mar, Migraine 346.90 ; Nondependent tobacco use disorder 305.1 ; Esophageal reflux 530.81 ; Unspecified backache 724.5 ; Abdominal pain, generalized 789.07 ; Flatulence, eructation, and gas pain 787.3 ; Asymptomatic human immunodeficiency virus (HIV) infection status V08 ; Dyspepsia and other specified disorders of function of stomach 536.8 ; Nausea alone 787.02 and Asthma 493.90 [facility] [address] [place] [address] Mar, Other chronic pain 338.29 [facility] [address] [place] [address] Feb, Other chronic pain 338.29 and Generalized anxiety disorder 300.[address] [address] Feb, Abdominal pain, generalized 789.[address] [address] Jan, Abdominal pain, generalized 789.07 [facility] [address] [place] [id number] Dec, [address] [address] Dec, [address] [address] Dec, Unspecified backache 724.[address] [address] Dec, [facility] [address] [place] [address] Nov, [place] [address] [id number] Nov, [facility] [address] [place] [id number] Nov, Bipolar disorder, unspecified 296.80 ; Abdominal pain, generalized 789.07 ; Generalized anxiety disorder 300.02 ; Nausea alone 787.02 ; Flu vaccine need V04.81 and Human immunodeficiency virus (HIV) disease 042 [facility] [address] [place] [address] Nov, [facility] [address] [facility] [address] [place] [id number] Oct, [facility] [address] [facility] [address] [place] [id number] Oct, [facility] [address] [facility] [address] [place], [place] [id number] Aug, [facility] [address] [place] [facility] [place] [address] Jun, [facility] [address] [facility] [place] [address] Mar, [facility] [address] [place] [facility] [place] [address] Oct, [facility] [address] [facility] [place] [facility] [place] [address] July, [facility] [address] [place] [facility] [place] [address] Jun, [facility] [address] [facility] [place] [address] May, [facility] [address] [place] [facility] [place] [facility] [place] [address] Mar, [facility] [address] [facility] [place] [address] Feb, [facility] [address] [facility] [place] [address] Nov, [facility] [address] [facility] [place] [address] Oct, [facility] [address] [facility] [place] [address] Aug, [facility] [address] [place] [facility] [place] [address] May, [facility] [address] [place] [facility] [place] [address] Mar, IMMUNIZATIONS No Known Immunizations SOCIAL HISTORY [...]
--- OUTSIDE RECORDS SUMMARY | 2018-03-22 14:03 | XMS REPORT ---
Author Author SHERICE HAYES [facility] Address [address] 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 54317228 Problem Anxiety F41.9 Active 14456100 Problem HIV (human immunodeficiency virus infection) Z21 Active 16599920 ALLERGIES No Known Allergies ENCOUNTERS Encounter Location Date Diagnosis [facility] [id number] [place] [address] Sep, [facility] [id number] [place] [address] Sep, [facility] [id number] [place] [address] Aug, Brown recluse spider bite or sting, accidental or unintentional, initial encounter T63.331A [facility] [id number] [place] [address] July, Bug bite, subsequent encounter W57.XXXD and Opioid use disorder F11.99 [facility] [id number] [place] [address] July, Insect bite, initial encounter W57.XXXA [facility] [id number] [place] [address] July, [facility] [id number] [place] [address] July, [facility] [id number] [place] [address] July, Opioid use disorder, severe, dependence F11.20 and Alleged drug diversion Z65.3 [facility] [id number] [place] [address] July, [facility] [id number] [place] [address] Jun, [facility] [id number] [place] [address]- [address] Apr, [facility] [id number] [place] [address] Jan, HIV (human immunodeficiency virus infection) Z21 and Anxiety F41.9 [facility] [id number] [place] [address] Jan, [facility] [id number] [place] [id number] Oct, [facility] [id number] [place] [address] Aug, HIV (human immunodeficiency virus infection) Z21 [facility] [id number] [place] [address] July, HIV (human immunodeficiency virus infection) Z21 [facility] [address] [place] [address] July, [facility] [id number] [place] [address] Apr, [facility] [address] [place] [address] Mar, [facility] [address] [place] [address] Jan, Ankle injury, right, initial encounter S99.911A and Shortness of breath R06.02 [facility] [address] [place] [address] Dec, Hematoma T14.8 [facility] [address] [place] [address] 052901- 8796 Dec, [facility] [id number] [place] [address] Sep, [facility] [id number] [place] [address] May, [facility] [id number] [place] [address] Apr, Positive PPD R76.11 [facility] [id number] [place] [address] 2358 Mar, [facility] [id number] [place] [address] Feb, Generalized abdominal pain R10.84 and Anxiety F41.9 [facility] [id number] [place] [address] July, [facility] [id number] [place] [address] 18267- 3214 14 Jun, 2014 [facility] [id number] [place] [address] 38757[address] 7671 Jun, [facility] [address] [address] Dec, [facility] [address] [address] Dec, [facility] [address] [address] Dec, [facility] [id number] [place] [address] [phone]- 1284 Nov, [facility] [address] [address] Nov, [facility] [address] [place] [address] 29 Sep, 2013 [facility] [place] [facility] [address] [id number] [place] [address] 29 Sep, 2013 [facility] [place] [facility] [address] [id number] [place] [address]46 29 Sep, 2013 [facility] [place] [facility] [address] [id number] [place] [address]46 29 Sep, 2013 [facility] [place] [facility] [address] [id number] [place] [address]46 29 Sep, 2013 [facility] [place] [facility] [address] [id number] [place] [address]49 29 Sep, 2013 [facility] [place] [facility] [address] [id number] [place] [address]41 26 Sep, 2013 [facility] [place] [facility] [address] [id number] [place] [address] 2549 26 Sep, 2013 [facility] [place] [facility] [address] [id number] [place] [address] 2541 24 Sep, 2013 [facility] [place] [facility] [address] [id number] [place] [address]49 24 Sep, 2013 [facility] [place] [facility] [address] [id number] [place] [address]48 23 Sep, 2013 [facility] [place] [facility] [address] [id number] [place] [address] 2546 23 Sep, 2013 [facility] [place] [facility] [address] [id number] [place] [address] 22 Sep, 2013 [facility] [place] [facility] [address] [id number] [place] [address] 2542 18 Sep, 2013 [facility] [place] [facility] [address] [id number] [place] [address] 2546 17 Sep, 2013 [facility] [place] [facility] [address] [id number] [place] [address] 2543 Nov, [facility] [address] [facility] [id number] [address] Nov, [facility] [id number] [address] Nov, [facility] [id number] [address] Nov, [facility] [address] [address] Oct, [facility] [id number] [address] Oct, [facility] [address] [place] [address] May, IMMUNIZATIONS No Known Immunizations SOCIAL HISTORY Never Assessed REASON FOR VISIT Has been taking hydrocodone for 10 years- KARYNA Kee, Decided to stop taking, last dose on 07/19 Hydrocodone 10mg, COWS: 16 PLAN OF CARE Activity Details Follow Up PRN Reason: VITAL SIGNS Height 65.5 in 2017-07-21 Weight 130.3 lbs 2017-07-21 Temperature 98.7 degrees Fahrenheit 2017-07-21 Heart Rate 84 bpm 2017-07-21 Respiratory Rate 20 2017-07-21 BMI 21.35 kg/m2 2017-07-21 Blood pressure systolic 110 mmHg 2017-07-21 Blood pressure diastolic 78 mmHg 2017-07-21 MEDICATIONS Medication Instructions Dosage Frequency Start Date End Date Duration Status Dronabinol 10 mg Orally 3 times a day 1 capsule 8h Active Methocarbamol 750 MG Orally at bedtime 1 tablet Active Omeprazole 40 mg Orally Once a day 1 capsule 24h Active Doxycycline 40 MG Orally Once a day 1 capsule on an empty stomach in the morning 24h Not-Taking Stribild [phone] mg take 1 tablet by oral route once daily with food Nov, Active Zofran 8 MG Orally every 8 hours prn 1 tablet Active Xanax 1 mg take 1 tablets by Oral route 2 times per day Nov, Not-Taking [place] 10-325 mg take 1 tablet by oral route every 4 hours as needed for pain Nov, Not-Taking Zithromax Z-Riky 250 MG Orally Once a day 1 tablet a day 24h Active Tramadol HCl 50 MG Orally every 6 hrs 1 tablet as needed 6h Not- Taking ProAir HFA 108 (90 Base) MCG/ACT Inhalation every 4 hrs 2 puffs as needed 4h Not-Taking RESULTS No Results PROCEDURES No Known procedures INSTRUCTIONS MEDICATIONS ADMINISTERED No Known Medications MEDICAL (GENERAL) HISTORY Type Description Date Medical History HIV Medical History anxiety Surgical History gallbladder Surgical History tubal ligation Surgical History hysterectomy, total with bilateral salpingo-oophorectomy (BSO )
--- OUTSIDE RECORDS SUMMARY | 2018-03-22 14:03 | XMS REPORT ---
Author Author Dulce Herrera 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 Active 946080169 Problem Non-intractable cyclical vomiting with nausea G43.A0 Active 62174140 Problem Poor appetite R63.0 Active 84211866 Problem Wheezing on auscultation R06.2 Active 225198888 Problem Acquired immune deficiency syndrome B20 Active 26256813 Problem Other chronic pain G89.29 Active 26532199 Problem Mood swings F39 Active 16387822 Problem Generalized anxiety disorder F41.1 Active 46576853 Problem GERD (gastroesophageal reflux disease) K21.9 Active 979666320 Problem Mixed hyperlipidemia E78.2 Active 433465227 Problem Intrinsic asthma J45.909 Active 530776688 Problem Migraine G43.909 Active 33674966 Problem Backache M54.9 Active [id number] ALLERGIES No Information ENCOUNTERS Encounter Location Date Diagnosis [facility] [address] [facility] [address] [place] [id number] Sep, [facility] [address] [place] [address] Sep, [facility] [address] [place] [address] Sep, [facility] [address] [place] [address] Sep, [facility] [address] [place] [address] Sep, Poor appetite R63.0 [facility] [address] [place] [address], [place] [address] Sep, Backache M54.9 [facility] [address] [place] [facility] [place] [address] Sep, [facility] [address] [facility] [place] [address] Aug, Generalized anxiety disorder F41.1 [facility] [address] [facility] [place] [address] Aug, [facility] [address] [facility] [place] [address] Aug, Backache M54.9 [facility] [address] [facility] [place] [address] Aug, [facility] [address] [facility] [place] [address] Aug, Spider bite T63.301A [facility] [address] [place] [address] Aug, [facility] [address] [facility] [place] [address] Aug, [facility] [address] [facility] [place] [address] Aug, [facility] [address] [facility] [place] [address] July, [facility] [address] [place] [address] July, [facility] [address] [place] [address] July, [facility] [address] [place] [address] July, [facility] [address] [place] [address] July, [facility] [address] [place] [address] July, Poor appetite R63.0 and Backache M54.9 [facility] [address] [place] [address] July, [facility] [address] [place] [address] July, [facility] [address] [facility] [place] [address] July, [facility] [address] [facility] [place] [address] July, [facility] [address] [facility] [place] [address] July, [facility] [address] [facility] [place] [address] July, Nausea and vomiting R11.2 [facility] [address] [facility] [place] [address] July, [facility] [address] [facility] [place] [address] July, [facility] [address] [facility] [place] [address] July, [facility] [address] [facility] [place] [address] July, [facility] [address] [facility] [place] [address] July, [facility] [address] [facility] [place] [address] July, Other chronic pain G89.29 [facility] [address] [facility] [place] [address] July, [facility] [address] [facility] [place] [address] July, GERD (gastroesophageal reflux disease) K21.9 [facility] [address] [facility] [place] [address] July, [facility] [address] [facility] [place] [address] Jun, [facility] [address] [facility] [place] [address] Jun, [facility] [address] [facility] [place] [address] Jun, [facility] [address] [facility] [place] [address] Jun, [facility] [address] [place] [address] Jun, Other chronic pain G89.29 [facility] [address] [place] [address] Jun, [facility] [address] [place] [address] Jun, [facility] [address] [place] [address] Jun, [facility] [address] [place] [address] Jun, [facility] [address] [place] [address] Jun, [facility] [address] [place] [address] Jun, Generalized anxiety disorder F41.1 ; Other chronic pain G89.29 and Non-intractable cyclical vomiting with nausea G43.A0 [facility] [address] [place] [id number] Jun, Acquired immune deficiency syndrome B20 ; 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 ; Nicotine dependence, cigarettes, uncomplicated F17.210 ; Lower respiratory infection J22 ; Poor appetite R63.0 ; Other chronic pain G89.29 ; Generalized anxiety disorder F41.1 and Need for tetanus booster Z23 [facility] [address] [place] [address] Jun, [facility] [address] [place] [address] May, Generalized abdominal pain R10.84 [facility] [address] [place] [address] May, [facility] [address] [place] [address] Apr, AIDS B20 ; Generalized abdominal pain R10.84 and Dysmenorrhea N94.6 [facility] [address] [place] [address] Apr, Acute URI J06.[address] [address] Apr, [facility] [address] [place] [address] Apr, [facility] [address] [facility] [address] [place] [id number] Apr, Acquired immune deficiency syndrome B20 ; detention ( current) use of opiate analgesic Z79.891 and Migraine G43.909 [facility] [address] [place] [address] Mar, Dysmenorrhea N94.6 [facility] [address] [place] [address] Mar, [facility] [address] [place] [address] Mar, Generalized anxiety disorder F41.1 and Generalized abdominal pain R10.84 [facility] [address] [address] Mar, [facility] [address] [place] [address] Mar, Generalized abdominal pain R10.84 and Generalized anxiety disorder F41.1 [facility] [address] [address] Feb, [facility] [address] [place] [address] Feb, Generalized abdominal pain R10.84 [facility] [address] [address] Jan, Nausea and vomiting R11.2 [facility] [address] [place] [address] Jan, [facility] [address] [place] [address] Jan, [facility] [address] [place] [address] Jan, [facility] [address] [place] [address] Jan, [facility] [address] [place] [address] Jan, [facility] [address] [place] [address] Jan, Mood swings F39 [facility] [address] [place] [address] Jan, [facility] [address] [place] [address] Jan, [facility] [address] [place] [address] Jan, [facility] [address] [place] [address] Jan, Dysmenorrhea N94.6 [facility] [address] [place] [phone] Jan, Acquired immune deficiency syndrome B20 ; Generalized abdominal pain R10.84 and Refused influenza vaccine Z28.21 [facility] [address] [place] [address] Jan, [facility] [address] [place] [address] Dec, Generalized abdominal pain R10.84 [facility] [address] [place] [address] Dec, Dysmenorrhea N94.6 [facility] [address] [place] [address] Dec, Backache M54.9 [facility] [address] [place] [address] Nov, Generalized abdominal pain R10.84 [facility] [address] [place] [address] Nov, Generalized anxiety disorder F41.1 [facility] [address] [place] [address] Nov, Dysmenorrhea N94.6 [facility] [address] [place] [address] Oct, [facility] [address] [place] [address] Oct, [facility] [address] [place] [address] Oct, [facility] [address] [place] [address] Oct, Generalized abdominal pain R10.[address] [address] [facility] [address] [facility] [address] [place] [id number] Oct, Acquired immune deficiency syndrome B20 ; detention 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 Z79.891 ; Bipolar affective disorder F31.9 ; Generalized anxiety disorder F41.1 ; Backache M54.9 ; Mixed hyperlipidemia E78.2 ; Nicotine dependence, cigarettes, uncomplicated F17.210 and Wheezing on auscultation R06.[address] [address] Oct, Oral candidiasis B37.[address] [address] Oct, [address] [address] Oct, Acute upper respiratory infection J06.9 [facility] [address] [address] Oct, Acute upper respiratory infection J06.[address] [address] Sep, Dysmenorrhea N94.[address] [address] Sep, Generalized anxiety disorder F41.[address] [address] Sep, Dysmenorrhea N94.6 [facility] [address] [place] [address] Sep, [facility] [address] [place] [address] Sep, Dysmenorrhea N94.6 [facility] [address] [address] Aug, Acquired immune deficiency syndrome B20 [facility] [address] [address] Aug, Generalized anxiety disorder F41.1 [facility] [address] [place] [address] Aug, [facility] [address] [place] [address] Aug, [facility] [address] [facility] [place] [address] Aug, [facility] [address] [place] [address] Aug, [facility] [address] [place] [address] Aug, [facility] [address] [place] [address] Aug, [facility] [address] [place] [address] Aug, [facility] [address] [place] [address] Aug, Acute opioid withdrawal F11.23 [facility] [address] [place] [address] July, Upper respiratory infection J06.9 [facility] [address] [place] [address] July, Backache M54.9 [facility] [address] [place] [phone] July, Acquired immune deficiency syndrome B20 ; 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 ; Hyperglycemia R73.9 ; Bipolar affective disorder F31.9 ; GERD (gastroesophageal reflux disease) K21.9 ; Backache M54.9 ; Generalized anxiety disorder F41.1 ; Mixed hyperlipidemia E78.2 ; Nicotine dependence, cigarettes, uncomplicated F17.210 and Localized edema R60.0 [facility] [address] [place] [address] July, [facility] [address] [place] [address] Jun, Backache M54.9 [facility] [address] [place] [address] Jun, Chronic pain G89.29 [facility] [address] [place] [address] May, Backache M54.[address] [address] May, Backache M54.[address] [address] Apr, Cough R[address] [facility] [address] [facility] [address] [place] [id number] Apr, Acquired immune deficiency syndrome B20 ; Screening examination for sexually transmitted disease Z11.3 ; Dermatitis L30.9 and Migraine with aura and with status migrainosus, not intractable G43.[address] [address] Apr, Backache M54.[address] [address] Mar, Intrinsic asthma J45.909 ; Nausea and vomiting R11.2 and AIDS B20 [address] [address] Mar, Backache M54.[address] [address] Feb, Chronic pain G89.[address] [address] Feb, Backache M54.[address] [address] Jan, [place] eye, 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 [address] Jan, Asthma, intrinsic 493.[address] [address] Jan, [address] [address] Jan, [address] [address] Jan, Backache M54.[address] [place] [address] 30 Dec, 2015 Chronic pain G89.[address] [address] [facility] [address] [facility] [address] [place] [id number] Dec, AIDS B20 ; Influenza vaccine needed Z23 ; Intrinsic asthma J45.909 ; Backache M54.9 ; Generalized anxiety disorder F41.1 ; Nicotine dependence, cigarettes, uncomplicated F17.210 and Mixed hyperlipidemia E78.2 [facility] [address] [place] [address] Dec, [facility] [address] [place] [address] Dec, Dysmenorrhea N94.[address] [address] Dec, [facility] [address] [place] [address] Dec, Depression with anxiety F41.8 and Backache M54.[address] [address] Nov, [facility] [address] [place] [address] Nov, Other chronic pain G89.[address] [address] 18 Nov, 2015 Other chronic pain G89.[address] [address] 18 Nov, 2015 [facility] [address] [place] [address] 14 Nov, 2015 Generalized anxiety disorder F41.1 [facility] [address] [place] [address] 06 Nov, 2015 [facility] [address] [place] [address] Nov, [facility] [address] [place] [address] 04 Nov, 2015 Chronic pain G89.29 [facility] [address] [place] [address] Oct, [facility] [address] [place] [address] Oct, Other chronic pain G89.29 [facility] [address] [place] [address] Oct, [facility] [address] [place] [address] Oct, [facility] [address] [place] [address] Oct, Nausea and vomiting R11.2 [facility] [address] [place] [address] Oct, Chronic pain G89.29 [facility] [address] [place] [address] Sep, [facility] [address] [place] [address] Sep, Acute upper respiratory infection, unspecified J06.9 [facility] [address] [place] [address] Sep, Upper respiratory infection J06.9 [facility] [address] [place] [address] Sep, [facility] [address] [place] [address] Sep, [facility] [address] [place] [address] Sep, Other chronic pain G89.29 [facility] [address] [place] [id number] Sep, AIDS B20 ; 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 ; Smoking F17.200 ; Mixed hyperlipidemia E78.2 ; Chronic pain G89.29 and Edema R60.9 [facility] [address] [place] [address] Sep, [facility] [address] [place] [address] Sep, [facility] [address] [place] [address] Aug, [facility] [address] [place] [address] [place] [address] Aug, Other chronic pain G89.29 [facility] [address] [facility] [place] [address] Aug, Generalized anxiety disorder F41.1 [facility] [address] [facility] [place] [address] July, Other chronic pain G89.29 [facility] [address] [facility] [place] [address] July, Other chronic pain G89.29 [facility] [address] [facility] [place] [address] July, [facility] [address] [facility] [place] [address] Jun, Generalized anxiety disorder F41.1 [facility] [address] [facility] [place] [address] Jun, [facility] [address] [facility] [place] [address] Jun, Other chronic pain G89.29 [facility] [address] [facility] [place] [address] Jun, Rash and other nonspecific skin eruption R21 [facility] [address] [facility] [place] [address] Jun, [facility] [address] [facility] [place] [address] Jun, [facility] [address] [facility] [place] [address] Jun, [facility] [address] [facility] [place] [address] Jun, [facility] [address] [facility] [place] [address] Jun, [facility] [address] [facility] [place] [address] Jun, [facility] [address] [facility] [place] [address] Jun, [facility] [address] [facility] [place] [address] Jun, Other chronic pain G89.29 [facility] [address] [facility] [place] [address] Jun, [facility] [address] [facility] [place] [address] Jun, [facility] [address] [facility] [place] [address] Jun, [facility] [address] [facility] [place] [address] Jun, [facility] [address] [facility] [place] [address] Jun, [facility] [address] [facility] [place] [address] Jun, [facility] [address] [facility] [place] [address] Jun, [facility] [address] [facility] [place] [address] Jun, [facility] [address] [facility] [place] [address] Jun, [facility] [address] [facility] [place] [address] Jun, Nausea and vomiting R11.2 [facility] [address] [facility] [place] [address] May, [facility] [address] [facility] [place] [address] May, Rash and other nonspecific skin eruption R21 [facility] [address] [facility] [place] [address] May, [facility] [address] [facility] [place] [address] May, [facility] [address] [facility] [place] [address] May, [facility] [address] [facility] [place] [address] May, [facility] [address] [facility] [place] [address] May, [facility] [address] [place] [phone] May, Acquired immune deficiency syndrome B20 ; Screening examination for sexually transmitted disease Z11.3 ; Depression with anxiety F41.8 ; Other chronic pain G89.29 and Dermatitis L30.9 [facility] [address] [place] [address] May, [facility] [address] [place] [address] May, [facility] [address] [place] [address] May, [facility] [address] [place] [address] May, Backache M54.9 [facility] [address] [address] May, Rash and other nonspecific skin eruption R21 [facility] [address] [address] Apr, [facility] [address] [place] [address] Apr, [facility] [address] [place] [address] Apr, Other chronic pain G89.29 [facility] [address] [place] [address] Apr, [facility] [address] [place] [address] Apr, [facility] [address] [place] [address] Apr, [facility] [address] [place] [address] Apr, [facility] [address] [place] [address] Apr, [facility] [address] [place] [address] Apr, [facility] [address] [place] [address] Apr, [facility] [address] [place] [address] Apr, [facility] [address] [place] [address] Apr, [facility] [address] [place] [address] Apr, [facility] [address] [place] [address] Apr, Other chronic pain G89.29 ; Generalized anxiety disorder F41.1 ; Nausea R11.0 and AIDS B20 [facility] [address] [place] [address] Apr, [facility] [address] [place] [address] Apr, Generalized anxiety disorder F41.1 [facility] [address] [place] [address] Apr, [facility] [address] [place] [address] Apr, Other chronic pain G89.29 [facility] [address] [place] [address] Mar, [facility] [address] [place] [id number] Mar, detention (current) use of opiate analgesic Z79.891 ; Bipolar affective disorder F31.9 ; Smoking F17.200 ; Generalized anxiety disorder F41.1 ; Influenza vaccine administered Z23 and AIDS B20 [facility] [address] [place] [address] Mar, Other chronic pain G89.29 [facility] [address] [place] [address] Mar, Generalized anxiety disorder F41.1 [facility] [address] [place] [address] Mar, [facility] [address] [place] [address] Mar, Asymptomatic HIV infection Z21 [address] [address] Mar, Other chronic pain G89.29 [facility] [address] [place] [address] Feb, [facility] [address] [place] [address] Feb, [facility] [address] [place] [address] Feb, [facility] [address] [place] [address] Feb, [facility] [address] [place] [address] Feb, [facility] [address] [place] [address] Jan, Other chronic pain G89.29 and Nausea & vomiting R11.[address] [address] Jan, Other chronic pain G89.29 [facility] [address] [place] [address] Dec, [facility] [address] [place] [address] Dec, Other chronic pain G89.29 ; Asymptomatic HIV infection Z21 ; Intrinsic asthma J45.909 ; Bipolar affective disorder F31.9 ; Noncompliance Z91.19 ; Migraine G43.909 ; Tobacco use disorder Z72.0 ; GERD (gastroesophageal reflux disease) K21.9 ; Backache M54.9 and Generalized anxiety disorder F41.1 [facility] [address] [place] [address] Nov, [facility] [address] [place] [address] Nov, [facility] [address] [place] [address] Oct, Other chronic pain 338.[address] [address] Oct, [facility] [address] [place] [address] Oct, Unspecified backache 724.5 and Dysphagia 787.[address] [address] Sep, Other chronic pain 338.[address] [address] Sep, [address] [address] 30 Aug, 2014 URI (upper respiratory infection) 465.9 and Diarrhea 787.[address] [address] Aug, [address] [address] Aug, Other chronic pain 338.[address] [address] Aug, Other chronic pain 338.29 and Generalized anxiety disorder 300.[address] [address] Aug, [address] [address] July, Other chronic pain 338.29 [facility] [address] [place] [id number] July, Nondependent tobacco use disorder 305.1 ; Unspecified backache 724.5 ; Other chronic pain 338.29 ; Abdominal pain, unspecified site 789.00 ; detention (current) use of opiate analgesic V58.69 and Acquired immune deficiency syndrome [address] [address] July, Other chronic pain 338.[address] [address] Jun, Other chronic pain 338.[address] [address] Jun, [address] [address] Jun, Other chronic pain 338.[address] [address] Jun, URI (upper respiratory infection) 465.9 [facility] [address] [place] [address] Jun, Generalized anxiety disorder 300.02 and Seasonal allergies 477.[address] [address] Jun, Generalized anxiety disorder 300.[address] [address] May, Other chronic pain 338.[address] [address] May, Other chronic pain 338.29 and Generalized anxiety disorder 300.[address] [address] Apr, Asthma, intrinsic 493.10 and Acute upper respiratory infections of other multiple sites 465.[address] [address] Apr, [facility] [address] [facility] [address] [place] [id number] Apr, Depressive disorder [address] [address] Apr, Other chronic pain 338.[address] [address] Apr, [address] [address] Apr, Other chronic pain 338.[address] [address] Mar, Acute upper respiratory infections of unspecified site 465.9 [facility] [address] [place] [id number] Mar, Migraine 346.90 ; Nondependent tobacco use disorder 305.1 ; Esophageal reflux 530.81 ; Unspecified backache 724.5 ; Abdominal pain, generalized 789.07 ; Flatulence, eructation, and gas pain 787.3 ; Asymptomatic human immunodeficiency virus (HIV) infection status V08 ; Dyspepsia and other specified disorders of function of stomach 536.8 ; Nausea alone 787.02 and Asthma 493.90 [facility] [address] [place] [address] Mar, Other chronic pain 338.29 [facility] [address] [place] [address] Feb, Other chronic pain 338.29 and Generalized anxiety disorder 300.[address] [address] Feb, Abdominal pain, generalized 789.[address] [address] Jan, Abdominal pain, generalized 789.07 [facility] [address] [place] [id number] Dec, [address] [address] Dec, [address] [address] Dec, Unspecified backache 724.[address] [address] Dec, [facility] [address] [place] [address] Nov, [place] [id number] [id number] Nov, [facility] [address] [place] [id number] Nov, Bipolar disorder, unspecified 296.80 ; Abdominal pain, generalized 789.07 ; Generalized anxiety disorder 300.02 ; Nausea alone 787.02 ; Flu vaccine need V04.81 and Human immunodeficiency virus (HIV) disease 042 [facility] [address] [place] [address] Nov, [facility] [address] [facility] [address] [place] [id number] Oct, [facility] [address] [facility] [address] [place] [id number] Oct, [facility] [address] [facility] [address] [place] [id number] Aug, [facility] [address] [place] [facility] [place] [address] Jun, [facility] [address] [place] [facility] [place] [address] Mar, [facility] [address] [place] [facility] [place] [address] Oct, [facility] [address] [place] [facility] [place] [address] July, [facility] [address] [place] [facility] [place] [address] Jun, [facility] [address] [place] [facility] [place] [address] May, [facility] [address] [place] [facility] [place] [address] Mar, [facility] [address] [facility] [place] [address] Feb, [facility] [address] [place] [facility] [place] [address] Nov, [facility] [address] [place] [facility] [place] [address] Oct, [facility] [address] [facility] [place] [address] Aug, [facility] [address] [place] [facility] [place] [address] May, [facility] [address] [place] [facility] [place] [address] Mar, IMMUNIZATIONS No Known Immunizations SOCIAL HISTORY Never Assessed REASON FOR VISIT Re: RE:refill PLAN OF CARE VITAL SIGNS MEDICATIONS [...]
--- OUTSIDE RECORDS SUMMARY | 2018-03-22 14:04 | XMS REPORT ---
Author Author Dulce Herrera [facility] Address [address] [address], [place] [id number] Care Team Providers Care Sfd[employer] Developer Name Role Phone Dulce Herrera Unavailable PROBLEMS Type Condition ICD9-CM Code CEZ38-HJ Code Onset Dates Condition Status SNOMED Code Problem Bipolar affective disorder F31.9 Active 87356168 Problem Nicotine dependence, cigarettes, uncomplicated F17.210 Active 00275398 Problem detention (current) use of opiate analgesic Z79.891 Active 558506748 Problem Non-intractable cyclical vomiting with nausea G43.A0 Active 58046092 Problem Poor appetite R63.0 Active 23537993 Problem Wheezing on auscultation R06.2 Active 380756091 Problem Acquired immune deficiency syndrome B20 Active 72065533 Problem Other chronic pain G89.29 Active 71163619 Problem Mood swings F39 Active 79858542 Problem Generalized anxiety disorder F41.1 Active 19627798 Problem GERD (gastroesophageal reflux disease) K21.9 Active 452492141 Problem Mixed hyperlipidemia E78.2 Active 529058326 Problem Intrinsic asthma J45.909 Active 791966765 Problem Migraine G43.909 Active 73988734 Problem Backache M54.9 Active 181442291 ALLERGIES No Information ENCOUNTERS Encounter Location Date Diagnosis [facility] [address] [facility] [facility] [address] [place] [id number] Sep, [facility] [address] [place] [address] Sep, [facility] [address] [place] [address] Aug, Generalized anxiety disorder F41.1 [facility] [address] [place] [address] Aug, [facility] [address] [place] [address] Aug, Backache M54.9 [facility] [address] [place] [facility] [address] Aug, [facility] [address] [place] [facility] [place] [address] Aug, Spider bite T63.301A [facility] [address] [place] [facility] [place] [address] Aug, [facility] [address] [place] [facility] [place] [address] Aug, [facility] [address] [place] [facility] [place] [address] Aug, [facility] [address] [place] [facility] [place] [address] July, [facility] [address] [place] [facility] [place] [address] July, [facility] [address] [place] [facility] [place] [address] July, [facility] [address] [place] [facility] [address] July, [facility] [address] [place] [facility] [place] [address] July, [facility] [address] [place] [facility] [place] [address] July, Poor appetite R63.0 and Backache M54.9 [facility] [address] [place] [facility] [place] [address] July, [facility] [address] [place] [facility] [place] [address] July, [facility] [address] [place] [facility] [place] [address] July, [facility] [address] [place] [facility] [place] [address] July, [facility] [address] [place] [facility] [place] [address] July, [facility] [address] [place] [facility] [address] July, Nausea and vomiting R11.2 [facility] [address] [place] [facility] [address] July, [facility] [address] [place] [facility] [place] [address] July, [facility] [address] [place] [facility] [place] [address] July, [facility] [address] [place] [facility] [place] [address] July, [facility] [address] [place] [facility] [place] [address] July, [facility] [address] [place] [facility] [place] [address] July, Other chronic pain G89.29 [facility] [address] [place] [facility] [place] [address] July, [facility] [address] [place] [facility] [place] [address] July, GERD (gastroesophageal reflux disease) K21.9 [facility] [address] [place] [facility] [place] [address] July, [facility] [address] [place] [facility] [place] [address] Jun, [facility] [address] [place] [facility] [place] [address] Jun, [facility] [address] [place] [facility] [place] [address] Jun, [facility] [address] [place] [facility] [place] [address] Jun, [facility] [address] [place] [facility] [place] [address] Jun, Other chronic pain G89.29 [facility] [address] [place] [facility] [place] [address] Jun, [facility] [address] [place] [facility] [place] [address] Jun, [facility] [address] [place] [facility] [place] [address] Jun, [facility] [address] [place] [facility] [place] [address] Jun, [facility] [address] Jun, [address] [address] Jun, Generalized anxiety disorder F41.1 ; Other chronic pain G89.29 and Non-intractable cyclical vomiting with nausea G43.A0 [facility] [address] [place] [id number] Jun, Acquired immune deficiency syndrome B20 ; detention ( current) use of opiate analgesic Z79.891 ; Nicotine dependence, cigarettes, uncomplicated F17.210 ; Lower respiratory infection J22 ; Poor appetite R63.0 ; Other chronic pain G89.29 ; Generalized anxiety disorder F41.1 and Need for tetanus booster Z23 [address] [address] Jun, [address] [address] May, Generalized abdominal pain R10.[address] [address] May, [address] [address] Apr, AIDS B20 ; Generalized abdominal pain R10.84 and Dysmenorrhea N94.[address] [address] Apr, Acute URI J06.[address] [address] Apr, [address] [address] Apr, [facility] [address] [id number] Apr, Acquired immune deficiency syndrome B20 ; detention ( current) use of opiate analgesic Z79.891 and Migraine G43.[address] [address] Mar, Dysmenorrhea N94.[address] [address] Mar, [facility] [address] [place] [facility] [place] [address] Mar, Generalized anxiety disorder F41.1 and Generalized abdominal pain R10.84 [facility] [address] [place] [facility] [place] [address] Mar, [facility] [address] [place] [facility] [address] Mar, Generalized abdominal pain R10.84 and Generalized anxiety disorder F41.1 [facility] [address] [place] [facility] [place] [address] Feb, [facility] [address] [place] [facility] [address] Feb, Generalized abdominal pain R10.84 [facility] [address] [place] [facility] [place] [address] Jan, Nausea and vomiting R11.2 [facility] [address] [place] [facility] [place] [address] 18 Jan, 2017 [facility] [address] [place] [facility] [place] [address] Jan, [facility] [address] [place] [facility] [address] Jan, [facility] [address] [place] [facility] [address] Jan, [facility] [address] [place] [facility] [address] 14 Jan, 2017 [facility] [address] [place] [facility] [address] Jan, Mood swings F39 [facility] [address] [place] [facility] [address] Jan, [facility] [address] [place] [facility] [address] Jan, [facility] [address] [place] [facility] [address] Jan, [facility] [address] [place] [facility] [address] Jan, Dysmenorrhea N94.6 [facility] [address] [place] [phone] Jan, Acquired immune deficiency syndrome B20 ; Generalized abdominal pain R10.84 and Refused influenza vaccine Z28.[address] [address] Jan, [address] [address] Dec, Generalized abdominal pain R10.[address] [address] Dec, Dysmenorrhea N94.[address] [address] Dec, Backache M54.[address] [address] Nov, Generalized abdominal pain R10.[address] [address] Nov, Generalized anxiety disorder F41.[address] [address] Nov, Dysmenorrhea N94.[address] [address] Oct, [address] [address] Oct, [address] [address] Oct, [address] [address] Oct, Generalized abdominal pain R10.84 [facility] [address] [place] [id number] Oct, Acquired immune deficiency syndrome B20 ; 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 ; Bipolar affective disorder F31.9 ; Generalized anxiety disorder F41.1 ; Backache M54.9 ; Mixed hyperlipidemia E78.2 ; Nicotine dependence, cigarettes, uncomplicated F17.210 and Wheezing on auscultation R06.[address] [place] [address] Oct, Oral candidiasis B37.0 [facility] [address] [place] [address] Oct, [facility] [address] [place] [address] Oct, Acute upper respiratory infection J06.9 [facility] [address] [place] [address] Oct, Acute upper respiratory infection J06.9 [facility] [address] [place] [facility] [address] Sep, Dysmenorrhea N94.6 [facility] [address] [place] [address] Sep, Generalized anxiety disorder F41.1 [facility] [address] [place] [address] Sep, Dysmenorrhea N94.6 [facility] [address] [place] [address] Sep, [facility] [address] [place] [address] Sep, Dysmenorrhea N94.6 [facility] [address] [facility] [place] [address] Aug, Acquired immune deficiency syndrome B20 [facility] [address] [place] [address] Aug, Generalized anxiety disorder F41.1 [facility] [address] [place] [address] Aug, [facility] [address] [place] [address] Aug, [facility] [address] [place] [address] Aug, [facility] [address] [place] [address] Aug, [facility] [address] [place] [address] Aug, [facility] [address] [place] [address] Aug, [facility] [address] [place] [address] Aug, [address] [address] Aug, Acute opioid withdrawal F11.[address] [address] July, Upper respiratory infection J06.[address] [address] July, Backache M54.9 [facility] [address] [place] [phone] July, Acquired immune deficiency syndrome B20 ; 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 ; Hyperglycemia R73.9 ; Bipolar affective disorder F31.9 ; GERD (gastroesophageal reflux disease) K21.9 ; Backache M54.9 ; Generalized anxiety disorder F41.1 ; Mixed hyperlipidemia E78.2 ; Nicotine dependence, cigarettes, uncomplicated F17.210 and Localized edema R60.[address] [address] July, [address] [address] Jun, Backache M54.[address] [address] Jun, Chronic pain G89.[address] [address] May, Backache M54.[address] [address] May, Backache M54.[address] [address] Apr, Cough R05 [facility] [address] [place] [phone] Apr, Acquired immune deficiency syndrome B20 ; Screening examination for sexually transmitted disease Z11.3 ; Dermatitis L30.9 and Migraine with aura and with status migrainosus, not intractable G43.101 [facility] [address] [place] [address] Apr, Backache M54.9 [facility] [address] [place] [address] Mar, Intrinsic asthma J45.909 ; Nausea and vomiting R11.2 and AIDS B20 [facility] [address] [place] [address] Mar, Backache M54.9 [facility] [address] [place] [address] Feb, Chronic pain G89.[address] [address] Feb, Backache M54.[address] [address] Jan, [place] eye, 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 [address] Jan, Asthma, intrinsic 493.[address] [address] Jan, [address] [address] Jan, [address] [address] Jan, Backache M54.[address] [address] Dec, Chronic pain G89.29 [facility] [address] [place] [id number] Dec, AIDS B20 ; Influenza vaccine needed Z23 ; Intrinsic asthma J45.909 ; Backache M54.9 ; Generalized anxiety disorder F41.1 ; Nicotine dependence, cigarettes, uncomplicated F17.210 and Mixed hyperlipidemia E78.2 [facility] [address] [place] [address] Dec, [facility] [address] [place] [address] Dec, Dysmenorrhea N94.6 [facility] [address] [place] [address] Dec, [facility] [address] [place] [address] 17 Dec, 2015 Depression with anxiety F41.8 and Backache M54.9 [facility] [address] [place] [address] Nov, [facility] [address] [place] [address] 19 Nov, 2015 Other chronic pain G89.29 [facility] [address] [place] [address] 18 Nov, 2015 Other chronic pain G89.29 [facility] [address] [place] [address] 18 Nov, 2015 [facility] [address] [place] [address] 14 Nov, 2015 Generalized anxiety disorder F41.1 [facility] [address] [place] [address] Nov, [facility] [address] [place] [address] Nov, [facility] [address] [place] [address] Nov, Chronic pain G89.29 [facility] [address] [place] [address] Oct, [facility] [address] [place] [address] Oct, Other chronic pain G89.29 [facility] [address] [place] [address] Oct, [facility] [address] [place] [address] Oct, [facility] [address] [place] [address] Oct, Nausea and vomiting R11.2 [facility] [address] [place] [address] Oct, Chronic pain G89.29 [facility] [address] [place] [address] Sep, [facility] [address] [place] [address] Sep, Acute upper respiratory infection, unspecified J06.9 [facility] [address] [place] [address] Sep, Upper respiratory infection J06.9 [facility] [address] [facility] [place] [address] Sep, [facility] [address] [place] [address] Sep, [facility] [address] [place] [address] Sep, Other chronic pain G89.29 [facility] [address] [place] [id number] Sep, AIDS B20 ; detention (current) use of opiate analgesic Z79.891 ; Smoking F17.200 ; Mixed hyperlipidemia E78.2 ; Chronic pain G89.29 and Edema R60.9 [facility] [address] [place] [address] Sep, [facility] [address] [place] [address] Sep, [facility] [address] [place] [address] Aug, [facility] [address] [place] [address] Aug, Other chronic pain G89.29 [facility] [address] [place] [address] Aug, Generalized anxiety disorder F41.1 [facility] [address] [place] [address] July, Other chronic pain G89.29 [facility] [address] [place] [address] July, Other chronic pain G89.29 [facility] [address] [place] [address] July, [facility] [address] [place] [facility] [place] [address] Jun, Generalized anxiety disorder F41.1 [facility] [address] [place] [facility] [place] [address] Jun, [facility] [address] [place] [facility] [place] [address] Jun, Other chronic pain G89.29 [facility] [address] [place] [facility] [place] [address] Jun, Rash and other nonspecific skin eruption R21 [facility] [address] [place] [facility] [place] [address] Jun, [facility] [address] [place] [facility] [place] [address] Jun, [facility] [address] [place] [facility] [place] [address] Jun, [facility] [address] [place] [facility] [place] [address] Jun, [facility] [address] [place] [facility] [place] [address] Jun, [facility] [address] [place] [facility] [place] [address] Jun, [facility] [address] [place] [facility] [place] [address] Jun, [facility] [address] [place] [facility] [place] [address] Jun, Other chronic pain G89.29 [facility] [address] [place] [facility] [place] [address] Jun, [facility] [address] [place] [facility] [place] [address] Jun, [facility] [address] [place] [facility] [place] [address] Jun, [facility] [address] [place] [facility] [place] [address] Jun, [facility] [address] [place] [facility] [place] [address] Jun, [facility] [address] [place] [facility] [place] [address] Jun, [facility] [address] [place] [facility] [address] Jun, [facility] [address] [place] [facility] [place] [address] Jun, [facility] [address] [place] [facility] [address] Jun, [facility] [address] [place] [facility] [place] [address] Jun, Nausea and vomiting R11.2 [facility] [address] [place] [facility] [place] [address] May, [facility] [address] [facility] [place] [address] May, Rash and other nonspecific skin eruption R21 [facility] [address] [facility] [place] [address] May, [facility] [address] [facility] [place] [address] May, [facility] [address] [facility] [place] [address] May, [facility] [address] [facility] [place] [address] May, [facility] [address] [facility] [place] [address] May, [facility] [address] [place] [phone] May, Acquired immune deficiency syndrome B20 ; Screening examination for sexually transmitted disease Z11.3 ; Depression with anxiety F41.8 ; Other chronic pain G89.29 and Dermatitis L30.9 [facility] [address] [facility] [place] [address] May, [facility] [address] [facility] [place] [address] May, [facility] [address] [place] [facility] [address] May, [facility] [address] [facility] [place] [address] May, Backache M54.9 [facility] [address] [place] [facility] [address] May, Rash and other nonspecific skin eruption R21 [facility] [address] [place] [facility] [address] Apr, [facility] [address] [place] [facility] [address] Apr, [facility] [address] [place] [facility] [address] Apr, Other chronic pain G89.29 [facility] [address] [facility] [place] [address] Apr, [facility] [address] [facility] [place] [address] Apr, [facility] [address] [place] [facility] [address] Apr, [facility] [address] [place] [facility] [address] Apr, [facility] [address] [facility] [place] [address] Apr, [facility] [address] [facility] [place] [address] Apr, [facility] [address] [facility] [place] [address] Apr, [facility] [address] [facility] [place] [address] Apr, [facility] [address] [facility] [place] [address] Apr, [facility] [address] [facility] [place] [address] Apr, [facility] [address] [facility] [place] [address] Apr, Other chronic pain G89.29 ; Generalized anxiety disorder F41.1 ; Nausea R11.0 and AIDS B20 [facility] [address] [facility] [place] [address] Apr, [facility] [address] [place] [address] Apr, Generalized anxiety disorder F41.1 [facility] [address] [place] [address] Apr, [facility] [address] [place] [address] Apr, Other chronic pain G89.29 [facility] [address] [place] [address] Mar, [facility] [address] [place] [id number] Mar, 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 ; Bipolar affective disorder F31.9 ; Smoking F17.200 ; Generalized anxiety disorder F41.1 ; Influenza vaccine administered Z23 and AIDS B20 [facility] [address] [place] [address] Mar, Other chronic pain G89.29 [facility] [address] [place] [address] Mar, Generalized anxiety disorder F41.1 [facility] [address] [place] [address] Mar, [facility] [address] [place] [address] Mar, Asymptomatic HIV infection Z21 [address] [address] Mar, Other chronic pain G89.29 [facility] [address] [place] [address] Feb, [facility] [address] [place] [address] Feb, [facility] [address] [place] [address] Feb, [facility] [address] [place] [address] Feb, [facility] [address] [place] [address] Feb, [facility] [address] [place] [address] Jan, Other chronic pain G89.29 and Nausea & vomiting R11.[address] [address] Jan, Other chronic pain G89.[address] [address] Dec, [address] [address] Dec, Other chronic pain G89.29 ; Asymptomatic HIV infection Z21 ; Intrinsic asthma J45.909 ; Bipolar affective disorder F31.9 ; Noncompliance Z91.19 ; Migraine G43.909 ; Tobacco use disorder Z72.0 ; GERD (gastroesophageal reflux disease) K21.9 ; Backache M54.9 and Generalized anxiety disorder F41.[address] [address] Nov, [address] [address] Nov, [address] [address] Oct, Other chronic pain 338.[address] [address] Oct, [address] [address] Oct, Unspecified backache 724.5 and Dysphagia 787.[address] [address] Sep, Other chronic pain 338.[address] [address] Sep, [address] [address] Aug, URI (upper respiratory infection) 465.9 and Diarrhea 787.[address] [address] Aug, [address] [address] Aug, Other chronic pain 338.[address] [address] Aug, Other chronic pain 338.29 and Generalized anxiety disorder 300.[address] [address] Aug, [address] [address] July, Other chronic pain 338.29 [facility] [address] [place] [id number] July, Nondependent tobacco use disorder 305.1 ; Unspecified backache 724.5 ; Other chronic pain 338.29 ; Abdominal pain, unspecified site 789.00 ; 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.69 and Acquired immune deficiency syndrome [address] [address] July, Other chronic pain 338.[address] [address] Jun, Other chronic pain 338.[address] [address] Jun, [address] [address] Jun, Other chronic pain 338.[address] [address] Jun, URI (upper respiratory infection) 465.[address] [address] Jun, Generalized anxiety disorder 300.02 and Seasonal allergies 477.9 [address] [address] Jun, Generalized anxiety disorder 300.[address] [address] May, Other chronic pain 338.[address] [address] May, Other chronic pain 338.29 and Generalized anxiety disorder 300.02 [facility] [address] [place] [address] 16 Apr, 2014 Asthma, intrinsic 493.10 and Acute upper respiratory infections of other multiple sites 465.8 [facility] [address] [place] [address] Apr, [facility] [address] [facility] [address] [place], [place] [id number] Apr, Depressive disorder 311 [facility] [address] [place] [address] Apr, Other chronic pain 338.[address] [address] Apr, [address] [address] Apr, Other chronic pain 338.[address] [address] Mar, Acute upper respiratory infections of unspecified site 465.9 [facility] [address] [place] [id number] Mar, Migraine 346.90 ; Nondependent tobacco use disorder 305.1 ; Esophageal reflux 530.81 ; Unspecified backache 724.5 ; Abdominal pain, generalized 789.07 ; Flatulence, eructation, and gas pain 787.3 ; Asymptomatic human immunodeficiency virus (HIV) infection status V08 ; Dyspepsia and other specified disorders of function of stomach 536.8 ; Nausea alone 787.02 and Asthma 493.[address] [address] Mar, Other chronic pain 338.[address] [address] Feb, Other chronic pain 338.29 and Generalized anxiety disorder 300.[address] [address] Feb, Abdominal pain, generalized 789.[address] [address] Jan, Abdominal pain, generalized 789.07 [facility] [address] [place] [id number] Dec, [facility] [address] [place] [address] Dec, [facility] [address] [place] [address] Dec, Unspecified backache 724.5 [facility] [address] [place] [address] Dec, [facility] [address] [place] [facility] [address] Nov, [facility] [address] [facility] [address] [place], [place] [id number] Nov, [facility] [address] [place], [place] [id number] Nov, Bipolar disorder, unspecified 296.80 ; Abdominal pain, generalized 789.07 ; Generalized anxiety disorder 300.02 ; Nausea alone 787.02 ; Flu vaccine need V04.81 and Human immunodeficiency virus (HIV) disease 042 [facility] [address] [place] [address] Nov, [facility] [place] [facility] [address] [facility] [address] [place], [place] [id number] Oct, [facility] [address] [facility] [address] [place], [place] [id number] Oct, [facility] [address] [facility] [address] [place], [place] [id number] Aug, [facility] [address] [place] [address] Jun, [facility] [address] [place] [address] Mar, [facility] [address] [place] [address] Oct, [facility] [address] [place] [address] July, [facility] [address] [place] [address] Jun, [facility] [address] [place] [facility] [address] 08 May, 2012 [facility] [address] [place] [facility] [address] Mar, [facility] [address] [place] [facility] [address] Feb, [facility] [address] [place] [facility] [address] Nov, [facility] [address] [place] [facility] [address] Oct, [facility] [address] [place] [facility] [address] Aug, [facility] [address] [place] [facility] [address] May, [facility] [address] [place] [facility] [address] Mar, IMMUNIZATIONS No Known Immunizations SOCIAL HISTORY [...]
--- OUTSIDE RECORDS SUMMARY | 2018-03-22 14:04 | XMS REPORT ---
Author Author Dulce Herrera [facility] Address [address] [place], [place] [id number] Care Team Providers Care Net Manager Name Role Phone Dulce Herrera Unavailable PROBLEMS Type Condition ICD9-CM Code PHI87-XG Code Onset Dates Condition Status SNOMED Code Problem Bipolar affective disorder F31.9 Active 52548929 Problem Nicotine dependence, cigarettes, uncomplicated F17.210 Active 70376469 Problem prison (current) use of opiate analgesic Z79.891 Active 372349537 Problem Non-intractable cyclical vomiting with nausea G43.A0 Active 73241095 Problem Poor appetite R63.0 Active 24561413 Problem Wheezing on auscultation R06.2 Active 618634533 Problem Acquired immune deficiency syndrome B20 Active 89518594 Problem Other chronic pain G89.29 Active 47118241 Problem Mood swings F39 Active 61150565 Problem Generalized anxiety disorder F41.1 Active 40479759 Problem GERD (gastroesophageal reflux disease) K21.9 Active 221648598 Problem Mixed hyperlipidemia E78.2 Active 174419814 Problem Intrinsic asthma J45.909 Active 931828617 Problem Migraine G43.909 Active 13073275 Problem Backache M54.9 Active [id number] ALLERGIES No Information ENCOUNTERS Encounter Location Date Diagnosis [facility] [address] [facility] [address] [place] [id number] Sep, [facility] [address] [place] [address] Sep, Backache M54.9 [facility] [address] [place] [address] Sep, [facility] [address] [place] [address] Aug, Generalized anxiety disorder F41.1 [facility] [address] [place] [address] Aug, [facility] [address] [place] [place] [address] Aug, Backache M54.9 [facility] [address] [place] [place] [address] Aug, [facility] [address] [place] [place] [address] Aug, Spider bite T63.301A [facility] [address] [place] [place] [address] Aug, [facility] [address] [place] [place] [address] Aug, [facility] [address] [place] [place] [address] Aug, [facility] [address] [place] [address] July, [facility] [address] [place] [place] [address] July, [facility] [address] [place] [address] July, [facility] [address] [place] [address] July, [facility] [address] [place] [place] [address] July, [facility] [address] [place] [address] July, Poor appetite R63.0 and Backache M54.9 [facility] [address] [place] [address] July, [facility] [address] [place] [address] July, [facility] [address] [place] [address] July, [facility] [address] [place] [address] July, [facility] [address] [place] [address] July, [facility] [address] [place] [address] July, Nausea and vomiting R11.2 [facility] [address] [place] [address] July, [facility] [address] [place] [address] July, [facility] [address] [place] [address] July, [facility] [address] [place] [address] July, [facility] [address] [place] [address] July, [facility] [address] [place] [address] July, Other chronic pain G89.29 [facility] [address] [place] [address] July, [facility] [address] [place] [address] July, GERD (gastroesophageal reflux disease) K21.9 [facility] [address] [place] [address] July, [facility] [address] [place] [address] Jun, [facility] [address] [place] [address] Jun, [facility] [address] [place] [address] Jun, [facility] [address] [place] [address] Jun, [facility] [address] [place] [address] Jun, Other chronic pain G89.29 [facility] [address] [place] [address] Jun, [facility] [address] [place] [address] Jun, [facility] [address] [place] [address] Jun, [address] [address] Jun, [address] [address] Jun, [address] [address] Jun, Generalized anxiety disorder F41.1 ; Other chronic pain G89.29 and Non-intractable cyclical vomiting with nausea G43.A0 [facility] [address] [place] [phone] Jun, Acquired immune deficiency syndrome B20 ; 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 ; Nicotine dependence, cigarettes, uncomplicated F17.210 ; Lower respiratory infection J22 ; Poor appetite R63.0 ; Other chronic pain G89.29 ; Generalized anxiety disorder F41.1 and Need for tetanus booster Z23 [address] [address] Jun, [address] [address] May, Generalized abdominal pain R10.[address] [address] May, [address] [address] Apr, AIDS B20 ; Generalized abdominal pain R10.84 and Dysmenorrhea N94.[address] [address] Apr, Acute URI J06.[address] [address] Apr, [address] [address] Apr, [address] [id number] Apr, Acquired immune deficiency syndrome B20 ; prison ( current) use of opiate analgesic Z79.891 and Migraine G43.[address] [address] Mar, Dysmenorrhea N94.6 [facility] [address] [place] [address] Mar, [facility] [address] [place] [address] Mar, Generalized anxiety disorder F41.1 and Generalized abdominal pain R10.84 [facility] [address] [place] [address] Mar, [facility] [address] [place] [address] Mar, Generalized abdominal pain R10.84 and Generalized anxiety disorder F41.1 [facility] [address] [place] [address] Feb, [facility] [address] [place] [address] Feb, Generalized abdominal pain R10.84 [facility] [address] [place] [address] Jan, Nausea and vomiting R11.2 [facility] [address] [place] [address] Jan, [facility] [address] [place] [address] Jan, [facility] [address] [place] [address] Jan, [facility] [address] [place] [address] Jan, [facility] [address] [place] [address] Jan, [facility] [address] [place] [address] Jan, Mood swings F39 [facility] [address] [place] [address] Jan, [facility] [address] [place] [address] Jan, [facility] [address] [place] [address] Jan, [address] [address] Jan, Dysmenorrhea N94.6 [facility] [address] [place] [phone] Jan, Acquired immune deficiency syndrome B20 ; Generalized abdominal pain R10.84 and Refused influenza vaccine Z28.[address] [address] Jan, [address] [address] Dec, Generalized abdominal pain R10.[address] [address] Dec, Dysmenorrhea N94.[address] [address] Dec, Backache M54.[address] [address] Nov, Generalized abdominal pain R10.[address] [address] Nov, Generalized anxiety disorder F41.[address] [address] Nov, Dysmenorrhea N94.[address] [address] Oct, [address] [address] Oct, [address] [address] Oct, [address] [address] Oct, Generalized abdominal pain R10.84 [facility] [address] [place] [id number] Oct, Acquired immune deficiency syndrome B20 ; 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 ; Bipolar affective disorder F31.9 ; Generalized anxiety disorder F41.1 ; Backache M54.9 ; Mixed hyperlipidemia E78.2 ; Nicotine dependence, cigarettes, uncomplicated F17.210 and Wheezing on auscultation R06.2 [facility] [address] [place] [address] Oct, Oral candidiasis B37.0 [facility] [address] [place] [address] Oct, [facility] [address] [place] [address] Oct, Acute upper respiratory infection J06.9 [facility] [address] [place] [address] Oct, Acute upper respiratory infection J06.9 [facility] [address] [place] [address] Sep, Dysmenorrhea N94.6 [facility] [address] [place] [address] Sep, Generalized anxiety disorder F41.1 [facility] [address] [place] [address] Sep, Dysmenorrhea N94.6 [facility] [address] [place] [address] Sep, [facility] [address] [place] [address] Sep, Dysmenorrhea N94.6 [facility] [address] [place] [address] Aug, Acquired immune deficiency syndrome B20 [facility] [address] [place] [address] Aug, Generalized anxiety disorder F41.1 [facility] [address] [place] [address] Aug, [facility] [address] [place] [address] Aug, [facility] [address] [place] [address] Aug, [facility] [address] [place] [address] Aug, [facility] [address] [place] [address] Aug, [facility] [address] [place] [address] Aug, [facility] [address] [place] [address] Aug, [facility] [address] [place] [address] Aug, Acute opioid withdrawal F11.23 [facility] [address] [place] [address] July, Upper respiratory infection J06.[address] [address] July, Backache M54.9 [facility] [address] [place] [phone] July, Acquired immune deficiency syndrome B20 ; prison 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 Z79.891 ; Hyperglycemia R73.9 ; Bipolar affective disorder F31.9 ; GERD (gastroesophageal reflux disease) K21.9 ; Backache M54.9 ; Generalized anxiety disorder F41.1 ; Mixed hyperlipidemia E78.2 ; Nicotine dependence, cigarettes, uncomplicated F17.210 and Localized edema R60.[address] [address] July, [address] [address] Jun, Backache M54.[address] [address] Jun, Chronic pain G89.[address] [address] May, Backache M54.[address] [address] May, Backache M54.[address] [address] Apr, Cough R05 [facility] [address] [place] [phone] Apr, Acquired immune deficiency syndrome B20 ; Screening examination for sexually transmitted disease Z11.3 ; Dermatitis L30.9 and Migraine with aura and with status migrainosus, not intractable G43.[address] [address] 03 Apr, 2016 Backache M54.[address] [address] Mar, Intrinsic asthma J45.909 ; Nausea and vomiting R11.2 and AIDS B20 [address] [address] Mar, Backache M54.[address] [address] Feb, Chronic pain G89.[address] [address] Feb, Backache M54.[address] [address] Jan, [place] [facility], 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 [address] Jan, Asthma, intrinsic 493.[address] [address] Jan, [address] [address] Jan, [address] [address] Jan, Backache M54.[address] [address] Dec, Chronic pain G89.29 [facility] [address] [place] [id number] Dec, AIDS B20 ; Influenza vaccine needed Z23 ; Intrinsic asthma J45.909 ; Backache M54.9 ; Generalized anxiety disorder F41.1 ; Nicotine dependence, cigarettes, uncomplicated F17.210 and Mixed hyperlipidemia E78.[address] [address] Dec, [facility] [address] [place] [address] Dec, Dysmenorrhea N94.6 [facility] [address] [place] [address] 18 Dec, 2015 [facility] [address] [place] [address] 17 Dec, 2015 Depression with anxiety F41.8 and Backache M54.9 [facility] [address] [place] [address] 19 Nov, 2015 [facility] [address] [place] [address] 19 Nov, 2015 Other chronic pain G89.29 [facility] [address] [place] [address] 18 Nov, 2015 Other chronic pain G89.29 [facility] [address] [place] [address] 18 Nov, 2015 [facility] [address] [place] [address] 14 Nov, 2015 Generalized anxiety disorder F41.1 [facility] [address] [place] [address] 06 Nov, 2015 [facility] [address] [place] [address] 06 Nov, 2015 [facility] [address] [place] [address] 04 Nov, 2015 Chronic pain G89.29 [facility] [address] [place] [address] Oct, [facility] [address] [place] [address] Oct, Other chronic pain G89.29 [facility] [address] [place] [address] Oct, [facility] [address] [place] [address] Oct, [facility] [address] [place] [address] Oct, Nausea and vomiting R11.2 [facility] [address] [place] [address] Oct, Chronic pain G89.29 [facility] [address] [place] [address] Sep, [facility] [address] [place] [address] Sep, Acute upper respiratory infection, unspecified J06.9 [facility] [address] [place] [address] Sep, Upper respiratory infection J06.9 [facility] [address] [place] [address] Sep, [facility] [address] [place] [address] Sep, [facility] [address] [place] [address] Sep, Other chronic pain G89.29 [facility] [address] [place] [id number] Sep, AIDS B20 ; prison (current) use of opiate analgesic Z79.891 ; Smoking F17.200 ; Mixed hyperlipidemia E78.2 ; Chronic pain G89.29 and Edema R60.9 [facility] [address] [place] [address] Sep, [facility] [address] [place] [address] Sep, [facility] [address] [place] [address] Aug, [facility] [address] [place] [address] Aug, Other chronic pain G89.29 [facility] [address] [place] [address] Aug, Generalized anxiety disorder F41.1 [facility] [address] [place] [address] July, Other chronic pain G89.29 [facility] [address] [place] [address] July, Other chronic pain G89.29 [facility] [address] [place] [place] [address] July, [facility] [address] [place] [address] Jun, Generalized anxiety disorder F41.1 [facility] [address] [place] [address] Jun, [facility] [address] [place] [address] Jun, Other chronic pain G89.29 [facility] [address] [place] [place] [address] Jun, Rash and other nonspecific skin eruption R21 [facility] [address] [place] [address] Jun, [facility] [address] [place] [address] Jun, [facility] [address] [place] [address] Jun, [facility] [address] [place] [address] Jun, [facility] [address] [place] [address] Jun, [facility] [address] [place] [address] Jun, [facility] [address] [place] [address] Jun, [facility] [address] [place] [address] Jun, Other chronic pain G89.29 [facility] [address] [place] [address] Jun, [facility] [address] [place] [address] Jun, [facility] [address] [place] [address] Jun, [facility] [address] [place] [address] Jun, [facility] [address] [place] [address] Jun, [facility] [address] [place] [address] Jun, [facility] [address] [place] [address] Jun, [facility] [address] [place] [address] Jun, [facility] [address] [place] [address] Jun, [facility] [address] [place] [address] Jun, Nausea and vomiting R11.2 [facility] [address] [place] [address] 24 May, 2015 [facility] [address] [place] [address] May, Rash and other nonspecific skin eruption R21 [facility] [address] [place] [address] May, [facility] [address] [place] [address] May, [facility] [address] [place] [address] May, [facility] [address] [place] [address] May, [facility] [address] [place] [address] May, [facility] [address] [place] [id number] May, Acquired immune deficiency syndrome B20 ; Screening examination for sexually transmitted disease Z11.3 ; Depression with anxiety F41.8 ; Other chronic pain G89.29 and Dermatitis L30.9 [facility] [address] [place] [address] 14 May, 2015 [facility] [address] [place] [address] 14 May, 2015 [facility] [address] [place] [address] May, [facility] [address] [place] [place] [address] May, Backache M54.9 [facility] [address] [place] [place] [address] May, Rash and other nonspecific skin eruption R21 [facility] [address] [place] [address] Apr, [facility] [address] [place] [place] [address] Apr, [facility] [address] [place] [address] Apr, Other chronic pain G89.29 [facility] [address] [place] [address] Apr, [facility] [address] [place] [address] Apr, [facility] [address] [place] [address] Apr, [facility] [address] [place] [address] Apr, [facility] [address] [place] [address] Apr, [facility] [address] [place] [address] Apr, [facility] [address] [place] [address] Apr, [facility] [address] [place] [address] Apr, [facility] [address] [place] [address] Apr, [facility] [address] [place] [address] Apr, [facility] [address] [place] [address] Apr, Other chronic pain G89.29 ; Generalized anxiety disorder F41.1 ; Nausea R11.0 and AIDS B20 [facility] [address] [place] [address] Apr, [facility] [address] [place] [address] Apr, Generalized anxiety disorder F41.1 [facility] [address] [place] [address] Apr, [facility] [address] [place] [address] Apr, Other chronic pain G89.29 [facility] [address] [place] [address] Mar, [facility] [address] [place] [phone] Mar, 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 ; Bipolar affective disorder F31.9 ; Smoking F17.200 ; Generalized anxiety disorder F41.1 ; Influenza vaccine administered Z23 and AIDS B20 [facility] [address] [place] [address] Mar, Other chronic pain G89.29 [facility] [address] [place] [address] Mar, Generalized anxiety disorder F41.[address] [address] Mar, [address] [address] Mar, Asymptomatic HIV infection Z21 [facility] [address] [place] [address] Mar, Other chronic pain G89.29 [facility] [address] [place] [address] Feb, [facility] [address] [place] [address] Feb, [facility] [address] [place] [address] Feb, [facility] [address] [place] [address] Feb, [facility] [address] [place] [address] Feb, [address] [address] Jan, Other chronic pain G89.29 and Nausea & vomiting R11.[address] [address] Jan, Other chronic pain G89.[address] [address] Dec, [address] [address] Dec, Other chronic pain G89.29 ; Asymptomatic HIV infection Z21 ; Intrinsic asthma J45.909 ; Bipolar affective disorder F31.9 ; Noncompliance Z91.19 ; Migraine G43.909 ; Tobacco use disorder Z72.0 ; GERD (gastroesophageal reflux disease) K21.9 ; Backache M54.9 and Generalized anxiety disorder F41.[address] [address] Nov, [address] [address] Nov, [address] [address] Oct, Other chronic pain 338.[address] [address] Oct, [address] [address] Oct, Unspecified backache 724.5 and Dysphagia 787.[address] [address] Sep, Other chronic pain 338.[address] [address] Sep, [address] [address] Aug, URI (upper respiratory infection) 465.9 and Diarrhea 787.[address] [address] Aug, [facility] [address] [place] [address] Aug, Other chronic pain 338.[address] [address] Aug, Other chronic pain 338.29 and Generalized anxiety disorder 300.[address] [address] Aug, [address] [address] July, Other chronic pain 338.29 [facility] [address] [place] [id number] July, Nondependent tobacco use disorder 305.1 ; Unspecified backache 724.5 ; Other chronic pain 338.29 ; Abdominal pain, unspecified site 789.00 ; 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 and Acquired immune deficiency syndrome [address] [address] July, Other chronic pain 338.[address] [address] Jun, Other chronic pain 338.[address] [address] Jun, [address] [address] Jun, Other chronic pain 338.[address] [address] Jun, URI (upper respiratory infection) 465.[address] [address] Jun, Generalized anxiety disorder 300.02 and Seasonal allergies 477.[address] [address] Jun, Generalized anxiety disorder 300.[address] [address] May, Other chronic pain 338.29 [facility] [address] [place] [address] May, Other chronic pain 338.29 and Generalized anxiety disorder 300.[address] [address] Apr, Asthma, intrinsic 493.10 and Acute upper respiratory infections of other multiple sites 465.[address] [address] Apr, [facility] [address] [facility] [address] [place] [address] Apr, Depressive disorder [address] [address] Apr, Other chronic pain 338.[address] [address] Apr, [address] [address] Apr, Other chronic pain 338.[address] [address] Mar, Acute upper respiratory infections of unspecified site 465.9 [facility] [address] [place] [phone] Mar, Migraine 346.90 ; Nondependent tobacco use disorder 305.1 ; Esophageal reflux 530.81 ; Unspecified backache 724.5 ; Abdominal pain, generalized 789.07 ; Flatulence, eructation, and gas pain 787.3 ; Asymptomatic human immunodeficiency virus (HIV) infection status V08 ; Dyspepsia and other specified disorders of function of stomach 536.8 ; Nausea alone 787.02 and Asthma [address] [address] Mar, Other chronic pain 338.[address] [address] Feb, Other chronic pain 338.29 and Generalized anxiety disorder 300.[address] [address] Feb, Abdominal pain, generalized 789.07 [facility] [address] [place] [address] Jan, Abdominal pain, generalized 789.07 [facility] [address] [place], [place] [id number] Dec, [facility] [address] [place] [address] Dec, [facility] [address] [place] [address] Dec, Unspecified backache 724.5 [facility] [address] [place] [address] Dec, [facility] [address] [place] [address] Nov, [facility] [address] [id number] Nov, [facility] [address] [place], [place] [id number] Nov, Bipolar disorder, unspecified 296.80 ; Abdominal pain, generalized 789.07 ; Generalized anxiety disorder 300.02 ; Nausea alone 787.02 ; Flu vaccine need V04.81 and Human immunodeficiency virus (HIV) disease 042 [facility] [address] [place] [address] Nov, [facility] [address] [id number] Oct, [facility] [address] [id number] Oct, [facility] [address] [id number] Aug, [facility] [address] [place] [address] Jun, [facility] [address] [place] [address] Mar, [facility] [address] [place] [address] Oct, [facility] [address] [place] [address] July, [facility] [address] [place] [facility] [place] [address] Jun, [facility] [address] [place] [facility] [place] [address] May, [facility] [address] [place] [facility] [place] [address] Mar, [facility] [address] [place] [facility] [place] [address] Feb, [facility] [address] [place] [facility] [place] [address] Nov, [facility] [address] [place] [place] [address] Oct, [facility] [address] [place] [place] [address] Aug, [facility] [address] [place] [facility] [place] [address] May, [facility] [address] [place] [place] [address] Mar, IMMUNIZATIONS No Known Immunizations SOCIAL HISTORY Never Assessed REASON FOR VISIT he PLAN OF CARE VITAL SIGNS MEDICATIONS Medication [...]
--- OUTSIDE RECORDS SUMMARY | 2018-03-22 14:05 | XMS REPORT ---
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 Active 648286228 Problem Non-intractable cyclical vomiting with nausea G43.A0 Active 96838352 Problem Poor appetite R63.0 Active 94231862 Problem Wheezing on auscultation R06.2 Active 426720045 Problem Acquired immune deficiency syndrome B20 Active 32421895 Problem Other chronic pain G89.29 Active 34321036 Problem Mood swings F39 Active 04720506 Problem Generalized anxiety disorder F41.1 Active 37215255 Problem GERD (gastroesophageal reflux disease) K21.9 Active 618887116 Problem Mixed hyperlipidemia E78.2 Active 150794538 Problem Intrinsic asthma J45.909 Active 995166418 Problem Migraine G43.909 Active 10506023 Problem Backache M54.9 Active [id number] ALLERGIES No Information ENCOUNTERS Encounter Location Date Diagnosis [facility] [address] [facility] [place] [id number] Sep, [facility] [address] [place] [address] Sep, [facility] [address] [place] [address] Sep, [facility] [address] [place] [address] Sep, [facility] [address] [place] [address] Sep, Poor appetite R63.[address] [facility] [address] [place] [address], [place] [address] Sep, Backache M54.9 [facility] [address] [place] [address] Sep, [facility] [address] [place] [facility] [place] [address] Aug, Generalized anxiety disorder F41.1 [facility] [address] [place] [address] Aug, [facility] [address] [place] [facility] [place] [address] Aug, Backache M54.9 [facility] [address] [place] [address] Aug, [facility] [address] [place] [address] Aug, Spider bite T63.301A [facility] [address] [place] [place] [address] Aug, [facility] [address] [place] [address] Aug, [facility] [address] [place] [facility] [place] [address] Aug, [facility] [address] [place] [facility] [place] [address] July, [facility] [address] [place] [address] July, [facility] [address] [place] [place] [address] July, [facility] [address] [place] [place] [address] July, [facility] [address] [place] [address] July, [facility] [address] [facility] [place] [address] July, Poor appetite R63.0 and Backache M54.9 [facility] [address] [place] [address] July, [facility] [address] [place] [address] July, [facility] [address] [place] [facility] [place] [address] July, [facility] [address] [place] [address] July, [facility] [address] [place] [address] July, [facility] [address] [place] [address] July, Nausea and vomiting R11.2 [facility] [address] [place] [address] July, [facility] [address] [place] [address] July, [facility] [address] [place] [facility] [place] [address] July, [facility] [address] [place] [facility] [place] [address] July, [facility] [address] [place] [address] July, [facility] [address] [place] [address] July, Other chronic pain G89.29 [facility] [address] [place] [address] July, [facility] [address] [place] [address] July, GERD (gastroesophageal reflux disease) K21.9 [facility] [address] [place] [address] July, [facility] [address] [place] [address] Jun, [facility] [address] [place] [address] Jun, [facility] [address] [place] [address] Jun, [facility] [address] [place] [address] Jun, [facility] [address] [place] [address] Jun, Other chronic pain G89.[address] [facility] [address] [place] [address] Jun, [facility] [address] [place] [address] Jun, [facility] [address] [place] [address] Jun, [facility] [address] [place] [address] Jun, [facility] [address] [place] [address] Jun, 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 [address] [place] [address] Jun, [facility] [address] [place] [address] May, Generalized abdominal pain R10.[address] [facility] [address] [place] [address] May, [facility] [address] [place] [address] Apr, AIDS B20 ; Generalized abdominal pain R10.84 and Dysmenorrhea N94.[address] [facility] [address] [place] [address] Apr, Acute URI J06.[address] [address] Apr, [facility] [address] [place] [address] Apr, [facility] [address] [facility] [address] [place] [id number] Apr, Acquired immune deficiency syndrome B20 ; nursing home ( current) use of opiate analgesic Z79.891 and Migraine G43.909 [facility] [address] [place] [address] Mar, Dysmenorrhea N94.6 [facility] [address] [place] [address] Mar, [facility] [address] [place] [address] Mar, Generalized anxiety disorder F41.1 and Generalized abdominal pain R10.84 [facility] [address] [address] Mar, [facility] [address] [place] [address] Mar, Generalized abdominal pain R10.84 and Generalized anxiety disorder F41.1 [facility] [address] [address] Feb, [facility] [address] [place] [address] Feb, Generalized abdominal pain R10.84 [facility] [address] [address] Jan, Nausea and vomiting R11.2 [facility] [address] [place] [address] Jan, [facility] [address] [place] [address] Jan, [facility] [address] [place] [address] Jan, [facility] [address] [place] [address] Jan, [facility] [address] [place] [address] Jan, [facility] [address] [place] [address] Jan, Mood swings F39 [facility] [address] [place] [address] Jan, [facility] [address] [place] [address] Jan, [facility] [address] [place] [address] Jan, [facility] [address] [place] [address] Jan, Dysmenorrhea N94.6 [facility] [address] [place] [phone] Jan, Acquired immune deficiency syndrome B20 ; Generalized abdominal pain R10.84 and Refused influenza vaccine Z28.21 [facility] [address] [place] [address] Jan, [facility] [address] [place] [address] Dec, Generalized abdominal pain R10.84 [facility] [address] [place] [address] Dec, Dysmenorrhea N94.6 [facility] [address] [place] [address] Dec, Backache M54.9 [facility] [address] [place] [address] Nov, Generalized abdominal pain R10.84 [facility] [address] [place] [address] Nov, Generalized anxiety disorder F41.1 [facility] [address] [place] [address] Nov, Dysmenorrhea N94.6 [facility] [address] [place] [address] Oct, [facility] [address] [place] [address] Oct, [facility] [address] [place] [address] Oct, [facility] [address] [place] [address] Oct, Generalized abdominal pain R10.[address] [facility] [address] [facility] [place] [id number] Oct, Acquired immune deficiency syndrome B20 ; nursing home 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 Z79.891 ; Bipolar affective disorder F31.9 ; Generalized anxiety disorder F41.1 ; Backache M54.9 ; Mixed hyperlipidemia E78.2 ; Nicotine dependence, cigarettes, uncomplicated F17.210 and Wheezing on auscultation R06.[address] [address] Oct, Oral candidiasis B37.[address] [address] Oct, [address] [address] Oct, Acute upper respiratory infection J06.9 [facility] [address] [address] Oct, Acute upper respiratory infection J06.[address] [address] Sep, Dysmenorrhea N94.[address] [address] Sep, Generalized anxiety disorder F41.[address] [address] Sep, Dysmenorrhea N94.6 [facility] [address] [place] [address] Sep, [facility] [address] [place] [address] Sep, Dysmenorrhea N94.6 [facility] [address] [address] Aug, Acquired immune deficiency syndrome B20 [facility] [address] [address] Aug, Generalized anxiety disorder F41.1 [facility] [address] [place] [address] Aug, [facility] [address] [place] [address] Aug, [facility] [address] [place] [facility] [place] [address] Aug, [facility] [address] [facility] [place] [address] Aug, [facility] [address] [place] [address] Aug, [facility] [address] [facility] [place] [address] Aug, [facility] [address] [place] [address] Aug, [facility] [address] [place] [address] Aug, Acute opioid withdrawal F11.[address] [facility] [address] [place] [address] July, Upper respiratory infection J06.[address] 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 [address] [place] [address] July, [facility] [address] [place] [address] Jun, Backache M54.[address] [facility] [address] [place] [address] Jun, Chronic pain G89.[address] [facility] [address] [place] [address] May, Backache M54.[address] [address] May, Backache M54.[address] [address] Apr, Cough R05 [facility] [address] [facility] [place] [id number] Apr, Acquired immune deficiency syndrome B20 ; Screening examination for sexually transmitted disease Z11.3 ; Dermatitis L30.9 and Migraine with aura and with status migrainosus, not intractable G43.[address] [address] Apr, Backache M54.[address] [address] Mar, Intrinsic asthma J45.909 ; Nausea and vomiting R11.2 and AIDS B20 [address] [address] Mar, Backache M54.[address] [address] Feb, Chronic pain G89.[address] [address] Feb, Backache M54.[address] [address] Jan, Rew eye, 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 [address] Jan, Asthma, intrinsic 493.[address] [address] Jan, [address] [address] Jan, [address] [address] Jan, Backache M54.[address] [place] [address] 30 Dec, 2015 Chronic pain G89.[address] [facility] [address] [facility] [place] [id number] Dec, AIDS B20 ; Influenza vaccine needed Z23 ; Intrinsic asthma J45.909 ; Backache M54.9 ; Generalized anxiety disorder F41.1 ; Nicotine dependence, cigarettes, uncomplicated F17.210 and Mixed hyperlipidemia E78.[address] [facility] [address] [place] [address] Dec, [facility] [address] [place] [address] Dec, Dysmenorrhea N94.[address] [address] Dec, [facility] [address] [place] [address] Dec, Depression with anxiety F41.8 and Backache M54.[address] [address] Nov, [facility] [address] [place] [address] Nov, Other chronic pain G89.[address] [address] 18 Nov, 2015 Other chronic pain G89.[address] [address] 18 Nov, [address] [facility] [address] [place] [address] 14 Nov, 2015 Generalized anxiety disorder F41.1 [facility] [address] [place] [address] 06 Nov, 2015 [facility] [address] [place] [address] Nov, [facility] [address] [place] [address] 04 Nov, 2015 Chronic pain G89.[address] [facility] [address] [place] [address] Oct, [facility] [address] [place] [address] Oct, Other chronic pain G89.29 [facility] [address] [place] [address] Oct, [facility] [address] [place] [address] Oct, [facility] [address] [place] [address] Oct, Nausea and vomiting R11.[address] [facility] [address] [place] [address] Oct, Chronic pain G89.[address] [facility] [address] [place] [address] Sep, [facility] [address] [place] [address] Sep, Acute upper respiratory infection, unspecified J06.[address] [facility] [address] [place] [address] Sep, Upper respiratory infection J06.[address] [facility] [address] [place] [address] Sep, [facility] [address] [place] [address] Sep, 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 [address] [place] [address] Sep, [facility] [address] [place] [address] Sep, [facility] [address] [place] [address] Aug, [facility] [address] [place] [address] [place] [address] Aug, Other chronic pain G89.29 [facility] [address] [place] [facility] [place] [address] Aug, Generalized anxiety disorder F41.1 [facility] [address] [place] [address] July, Other chronic pain G89.29 [facility] [address] [place] [facility] [place] [address] July, Other chronic pain G89.29 [facility] [address] [place] [facility] [place] [address] July, [facility] [address] [place] [facility] [place] [address] Jun, Generalized anxiety disorder F41.1 [facility] [address] [place] [address] Jun, [facility] [address] [place] [address] Jun, Other chronic pain G89.29 [facility] [address] [place] [facility] [place] [address] Jun, Rash and other nonspecific skin eruption R21 [facility] [address] [place] [facility] [place] [address] Jun, [facility] [address] [place] [facility] [place] [address] Jun, [facility] [address] [place] [facility] [place] [address] Jun, [facility] [address] [place] [facility] [place] [address] Jun, [facility] [address] [place] [facility] [place] [address] Jun, [facility] [address] [place] [facility] [place] [address] Jun, [facility] [address] [place] [facility] [place] [address] Jun, [facility] [address] [place] [facility] [place] [address] Jun, Other chronic pain G89.29 [facility] [address] [place] [facility] [place] [address] Jun, [facility] [address] [place] [facility] [place] [address] Jun, [facility] [address] [place] [facility] [place] [address] Jun, [facility] [address] [place] [facility] [place] [address] Jun, [facility] [address] [place] [facility] [place] [address] Jun, [facility] [address] [place] [facility] [place] [address] Jun, [facility] [address] [place] [address] Jun, [facility] [address] [place] [address] Jun, [facility] [address] [place] [facility] [place] [address] Jun, [facility] [address] [place] [facility] [place] [address] Jun, Nausea and vomiting R11.2 [facility] [address] [place] [address] May, [facility] [address] [place] [facility] [place] [address] May, Rash and other nonspecific skin eruption R21 [facility] [address] [place] [address] May, [facility] [address] [place] [facility] [place] [address] May, [facility] [address] [place] [facility] [place] [address] May, [facility] [address] [place] [facility] [place] [address] May, [facility] [address] [place] [facility] [place] [address] May, [facility] [address] [place] [phone] May, Acquired immune deficiency syndrome B20 ; Screening examination for sexually transmitted disease Z11.3 ; Depression with anxiety F41.8 ; Other chronic pain G89.29 and Dermatitis L30.9 [facility] [address] [place] [address] May, [facility] [address] [place] [address] May, [facility] [address] [place] [address] May, [facility] [address] [place] [address] May, Backache M54.9 [facility] [address] [address] May, Rash and other nonspecific skin eruption R21 [facility] [address] [address] Apr, [facility] [address] [place] [address] Apr, [facility] [address] [place] [address] Apr, Other chronic pain G89.29 [facility] [address] [place] [address] Apr, [facility] [address] [place] [address] Apr, [facility] [address] [place] [address] Apr, [facility] [address] [place] [address] Apr, [facility] [address] [place] [address] Apr, [facility] [address] [place] [address] Apr, [facility] [address] [place] [address] Apr, [facility] [address] [place] [address] Apr, [facility] [address] [place] [address] Apr, [facility] [address] [place] [address] Apr, [facility] [address] [place] [address] Apr, Other chronic pain G89.29 ; Generalized anxiety disorder F41.1 ; Nausea R11.0 and AIDS B20 [facility] [address] [place] [address] Apr, [facility] [address] [place] [address] Apr, Generalized anxiety disorder F41.[address] [facility] [address] [place] [address] Apr, [facility] [address] [place] [address] Apr, Other chronic pain G89.[address] [facility] [address] [place] [address] Mar, [facility] [address] [place] [id number] Mar, nursing home (current) use of opiate analgesic Z79.891 ; Bipolar affective disorder F31.9 ; Smoking F17.200 ; Generalized anxiety disorder F41.1 ; Influenza vaccine administered Z23 and AIDS B20 [facility] [address] [place] [address] Mar, Other chronic pain G89.[address] [facility] [address] [place] [address] Mar, Generalized anxiety disorder F41.[address] [facility] [address] [place] [address] Mar, [facility] [address] [place] [address] Mar, Asymptomatic HIV infection Z21 [address] [address] Mar, Other chronic pain G89.[address] [facility] [address] [place] [address] Feb, [facility] [address] [place] [address] Feb, [facility] [address] [place] [address] Feb, [facility] [address] [place] [address] Feb, [facility] [address] [place] [address] Feb, [facility] [address] [place] [address] Jan, Other chronic pain G89.29 and Nausea & vomiting R11.[address] [address] Jan, Other chronic pain G89.[address] [facility] [address] [place] [address] Dec, [facility] [address] [place] [address] Dec, Other chronic pain G89.29 ; Asymptomatic HIV infection Z21 ; Intrinsic asthma J45.909 ; Bipolar affective disorder F31.9 ; Noncompliance Z91.19 ; Migraine G43.909 ; Tobacco use disorder Z72.0 ; GERD (gastroesophageal reflux disease) K21.9 ; Backache M54.9 and Generalized anxiety disorder F41.[address] [facility] [address] [place] [address] Nov, [facility] [address] [place] [address] Nov, [facility] [address] [place] [address] Oct, Other chronic pain 338.[address] [address] Oct, [facility] [address] [place] [address] Oct, Unspecified backache 724.5 and Dysphagia 787.[address] [address] Sep, Other chronic pain 338.[address] [address] Sep, [address] [address] 30 Aug, 2014 URI (upper respiratory infection) 465.9 and Diarrhea 787.[address] [address] Aug, [address] [address] Aug, Other chronic pain 338.[address] [address] Aug, Other chronic pain 338.29 and Generalized anxiety disorder 300.[address] [address] Aug, [address] [address] July, Other chronic pain 338.29 [facility] [address] [place], [place] [id number] July, Nondependent tobacco use disorder 305.1 ; Unspecified backache 724.5 ; Other chronic pain 338.29 ; Abdominal pain, unspecified site 789.00 ; nursing home (current) use of opiate analgesic V58.69 and Acquired immune deficiency syndrome [address] [address] July, Other chronic pain 338.[address] [address] Jun, Other chronic pain 338.[address] [address] Jun, [address] [address] Jun, Other chronic pain 338.[address] [address] Jun, URI (upper respiratory infection) 465.[address] [facility] [address] [place] [address] Jun, Generalized anxiety disorder 300.02 and Seasonal allergies 477.[address] [address] Jun, Generalized anxiety disorder 300.[address] [address] May, Other chronic pain 338.[address] [address] May, Other chronic pain 338.29 and Generalized anxiety disorder 300.[address] [address] Apr, Asthma, intrinsic 493.10 and Acute upper respiratory infections of other multiple sites 465.[address] [address] Apr, [facility] [address] [facility] [address] [place] [id number] Apr, Depressive disorder [address] [address] Apr, Other chronic pain 338.[address] [address] Apr, [address] [address] Apr, Other chronic pain 338.[address] [address] Mar, Acute upper respiratory infections of unspecified site 465.9 [facility] [address] [place] [id number] Mar, Migraine 346.90 ; Nondependent tobacco use disorder 305.1 ; Esophageal reflux 530.81 ; Unspecified backache 724.5 ; Abdominal pain, generalized 789.07 ; Flatulence, eructation, and gas pain 787.3 ; Asymptomatic human immunodeficiency virus (HIV) infection status V08 ; Dyspepsia and other specified disorders of function of stomach 536.8 ; Nausea alone 787.02 and Asthma 493.[address] [facility] [address] [place] [address] Mar, Other chronic pain 338.[address] [facility] [address] [place] [address] Feb, Other chronic pain 338.29 and Generalized anxiety disorder 300.[address] [address] Feb, Abdominal pain, generalized 789.[address] [address] Jan, Abdominal pain, generalized 789.07 [facility] [address] [place] [phone] Dec, [address] [address] Dec, [address] [address] Dec, Unspecified backache 724.[address] [address] Dec, [facility] [address] [place] [address] Nov, [place] [id number] [phone] Nov, [facility] [address] [place] [id number] Nov, Bipolar disorder, unspecified 296.80 ; Abdominal pain, generalized 789.07 ; Generalized anxiety disorder 300.02 ; Nausea alone 787.02 ; Flu vaccine need V04.81 and Human immunodeficiency virus (HIV) disease [address] [facility] [address] [place] [address] Nov, [facility] [address] [facility] [address] [place] [phone] Oct, [facility] [address] [facility] [address] [place] [id number] Oct, [facility] [address] [facility] [address] [place] [id number] Aug, [facility] [address] [place] [facility] [place] [facility] [address] Jun, [facility] [address] [place] [facility] [place] [facility] [address] Mar, [facility] [address] [place] [facility] [place] [facility] [address] Oct, [facility] [address] [place] [facility] [place] [facility] [address] July, [facility] [address] [place] [facility] [place] [facility] [address] Jun, [facility] [address] [place] [facility] [place] [address] May, [facility] [address] [place] [facility] [place] [facility] [address] Mar, [facility] [address] [place] [facility] [place] [facility] [address] Feb, [facility] [address] [place] [facility] [place] [facility] [address] Nov, [facility] [address] [place] [facility] [place] [facility] [address] Oct, [facility] [address] [place] [facility] [place] [address] Aug, [facility] [address] [place] [facility] [place] [address] May, [facility] [address] [place] [facility] [place] [facility] [address] Mar, IMMUNIZATIONS No Known Immunizations SOCIAL HISTORY [...]
--- OUTSIDE RECORDS SUMMARY | 2018-03-22 14:06 | XMS REPORT ---
Author Author Dulce Herrera 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 Active 867402735 Problem Non-intractable cyclical vomiting with nausea G43.A0 Active 81553608 Problem Poor appetite R63.0 Active 68592154 Problem Wheezing on auscultation R06.2 Active 769443569 Problem Acquired immune deficiency syndrome B20 Active 85436038 Problem Other chronic pain G89.29 Active 67966207 Problem Mood swings F39 Active 02719877 Problem Generalized anxiety disorder F41.1 Active 05003275 Problem GERD (gastroesophageal reflux disease) K21.9 Active 872213701 Problem Mixed hyperlipidemia E78.2 Active 238390935 Problem Intrinsic asthma J45.909 Active 967951743 Problem Migraine G43.909 Active 22933671 Problem Backache M54.9 Active 841131226 ALLERGIES No Information ENCOUNTERS Encounter Location Date Diagnosis [facility] [address] [facility] [address] [place] [id number] Sep, [facility] [address] [place] [address] Sep, [facility] [address] [place] [address] Sep, [facility] [address] [place] [address] Sep, [facility] [address] [place] [address] Sep, Poor appetite R63.0 [facility] [address] [place] [address], [place] [address] Sep, Backache M54.9 [facility] [address] [place] [facility] [place] [address] Sep, [facility] [address] [place] [facility] [place] [address] Aug, Generalized anxiety disorder F41.1 [facility] [address] [place] [facility] [place] [address] Aug, [facility] [address] [place] [facility] [place] [address] Aug, Backache M54.9 [facility] [address] [place] [facility] [place] [address] Aug, [facility] [address] [place] [facility] [place] [address] Aug, Spider bite T63.301A [facility] [address] [place] [address] Aug, [facility] [address] [place] [facility] [place] [address] Aug, [facility] [address] [place] [facility] [place] [address] Aug, [facility] [address] [place] [facility] [place] [address] July, [facility] [address] [place] [address] July, [facility] [address] [place] [address] July, [facility] [address] [place] [address] July, [facility] [address] [place] [address] July, [facility] [address] [place] [address] July, Poor appetite R63.0 and Backache M54.9 [facility] [address] [place] [address] July, [facility] [address] [place] [address] July, [facility] [address] [place] [facility] [place] [address] July, [facility] [address] [place] [facility] [place] [address] July, [facility] [address] [place] [facility] [place] [address] July, [facility] [address] [facility] [place] [address] July, Nausea and vomiting R11.2 [facility] [address] [facility] [place] [address] July, [facility] [address] [place] [facility] [place] [address] July, [facility] [address] [facility] [place] [address] July, [facility] [address] [facility] [place] [address] July, [facility] [address] [facility] [place] [address] July, [facility] [address] [facility] [place] [address] July, Other chronic pain G89.29 [facility] [address] [place] [facility] [place] [address] July, [facility] [address] [place] [facility] [place] [address] July, GERD (gastroesophageal reflux disease) K21.9 [facility] [address] [facility] [place] [address] July, [facility] [address] [place] [facility] [place] [address] Jun, [facility] [address] [place] [facility] [place] [address] Jun, [facility] [address] [place] [facility] [place] [address] Jun, [facility] [address] [place] [facility] [place] [address] Jun, [facility] [address] [place] [address] Jun, Other chronic pain G89.29 [facility] [address] [place] [address] Jun, [facility] [address] [place] [address] Jun, [facility] [address] [place] [address] Jun, [facility] [address] [place] [address] Jun, [facility] [address] [place] [address] Jun, [facility] [address] [place] [address] Jun, Generalized anxiety disorder F41.1 ; Other chronic pain G89.29 and Non-intractable cyclical vomiting with nausea G43.A0 [facility] [address] [place] [phone] Jun, Acquired immune deficiency syndrome B20 ; 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.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 ; Nicotine dependence, cigarettes, uncomplicated F17.210 ; Lower respiratory infection J22 ; Poor appetite R63.0 ; Other chronic pain G89.29 ; Generalized anxiety disorder F41.1 and Need for tetanus booster Z23 [facility] [address] [place] [address] Jun, [facility] [address] [place] [address] May, Generalized abdominal pain R10.84 [facility] [address] [place] [address] May, [facility] [address] [place] [address] Apr, AIDS B20 ; Generalized abdominal pain R10.84 and Dysmenorrhea N94.6 [facility] [address] [place] [address] Apr, Acute URI J06.[address] [address] Apr, [facility] [address] [place] [address] Apr, [facility] [address] [facility] [address] [place] [phone] Apr, Acquired immune deficiency syndrome B20 ; alf ( current) use of opiate analgesic Z79.891 and Migraine G43.[address] [facility] [address] [place] [address] Mar, Dysmenorrhea N94.6 [facility] [address] [place] [address] Mar, [facility] [address] [place] [address] Mar, Generalized anxiety disorder F41.1 and Generalized abdominal pain R10.84 [facility] [address] [address] Mar, [facility] [address] [place] [address] Mar, Generalized abdominal pain R10.84 and Generalized anxiety disorder F41.1 [facility] [address] [address] Feb, [facility] [address] [place] [address] Feb, Generalized abdominal pain R10.84 [facility] [address] [address] Jan, Nausea and vomiting R11.2 [facility] [address] [place] [address] Jan, [facility] [address] [place] [address] Jan, [facility] [address] [place] [address] Jan, [facility] [address] [place] [address] Jan, [facility] [address] [place] [address] Jan, [facility] [address] [place] [address] Jan, Mood swings F39 [facility] [address] [place] [address] Jan, [facility] [address] [place] [address] Jan, [facility] [address] [place] [address] Jan, [facility] [address] [place] [address] Jan, Dysmenorrhea N94.6 [facility] [address] [place] [phone] Jan, Acquired immune deficiency syndrome B20 ; Generalized abdominal pain R10.84 and Refused influenza vaccine Z28.21 [facility] [address] [place] [address] Jan, [facility] [address] [place] [address] Dec, Generalized abdominal pain R10.84 [facility] [address] [place] [address] Dec, Dysmenorrhea N94.6 [facility] [address] [place] [address] Dec, Backache M54.9 [facility] [address] [place] [address] Nov, Generalized abdominal pain R10.84 [facility] [address] [place] [address] Nov, Generalized anxiety disorder F41.1 [facility] [address] [place] [address] Nov, Dysmenorrhea N94.6 [facility] [address] [place] [address] Oct, [facility] [address] [place] [address] Oct, [facility] [address] [place] [address] Oct, [facility] [address] [place] [address] Oct, Generalized abdominal pain R10.84 [facility] [address] [facility] [address] [place] [phone] Oct, Acquired immune deficiency syndrome B20 ; alf 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 Z79.891 ; Bipolar affective disorder F31.9 ; Generalized anxiety disorder F41.1 ; Backache M54.9 ; Mixed hyperlipidemia E78.2 ; Nicotine dependence, cigarettes, uncomplicated F17.210 and Wheezing on auscultation R06.[address] [address] Oct, Oral candidiasis B37.[address] [address] Oct, [address] [address] Oct, Acute upper respiratory infection J06.9 [facility] [address] [address] Oct, Acute upper respiratory infection J06.[address] [address] Sep, Dysmenorrhea N94.[address] [address] Sep, Generalized anxiety disorder F41.[address] [address] Sep, Dysmenorrhea N94.6 [facility] [address] [place] [address] Sep, [facility] [address] [place] [address] Sep, Dysmenorrhea N94.6 [facility] [address] [address] Aug, Acquired immune deficiency syndrome B20 [facility] [address] [address] Aug, Generalized anxiety disorder F41.1 [facility] [address] [place] [address] Aug, [facility] [address] [place] [address] Aug, [facility] [address] [facility] [place] [address] Aug, [facility] [address] [place] [address] Aug, [facility] [address] [place] [address] Aug, [facility] [address] [place] [address] Aug, [facility] [address] [place] [address] Aug, [facility] [address] [place] [address] Aug, Acute opioid withdrawal F11.23 [facility] [address] [place] [address] July, Upper respiratory infection J06.9 [facility] [address] [place] [address] July, Backache M54.9 [facility] [address] [place] [phone] July, Acquired immune deficiency syndrome B20 ; 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 Z79.891 ; Hyperglycemia R73.9 ; Bipolar affective disorder F31.9 ; GERD (gastroesophageal reflux disease) K21.9 ; Backache M54.9 ; Generalized anxiety disorder F41.1 ; Mixed hyperlipidemia E78.2 ; Nicotine dependence, cigarettes, uncomplicated F17.210 and Localized edema R60.0 [facility] [address] [place] [address] July, [facility] [address] [place] [address] Jun, Backache M54.9 [facility] [address] [place] [address] Jun, Chronic pain G89.29 [facility] [address] [place] [address] May, Backache M54.[address] [address] May, Backache M54.[address] [address] Apr, Cough R05 [facility] [address] [facility] [address] [place] [phone] Apr, Acquired immune deficiency syndrome B20 ; Screening examination for sexually transmitted disease Z11.3 ; Dermatitis L30.9 and Migraine with aura and with status migrainosus, not intractable G43.[address] [address] Apr, Backache M54.[address] [address] Mar, Intrinsic asthma J45.909 ; Nausea and vomiting R11.2 and AIDS B20 [address] [address] Mar, Backache M54.[address] [address] Feb, Chronic pain G89.[address] [address] Feb, Backache M54.[address] [address] Jan, [place] eye, 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 [address] Jan, Asthma, intrinsic 493.[address] [address] Jan, [address] [address] Jan, [address] [address] Jan, Backache M54.[address] [place] [address] 30 Dec, 2015 Chronic pain G89.29 [facility] [address] [facility] [address] [place] [id number] Dec, AIDS B20 ; Influenza vaccine needed Z23 ; Intrinsic asthma J45.909 ; Backache M54.9 ; Generalized anxiety disorder F41.1 ; Nicotine dependence, cigarettes, uncomplicated F17.210 and Mixed hyperlipidemia E78.2 [facility] [address] [place] [address] Dec, [facility] [address] [place] [address] Dec, Dysmenorrhea N94.[address] [address] Dec, [facility] [address] [place] [address] Dec, Depression with anxiety F41.8 and Backache M54.[address] [address] Nov, [facility] [address] [place] [address] Nov, Other chronic pain G89.[address] [address] 18 Nov, 2015 Other chronic pain G89.[address] [address] 18 Nov, 2015 [facility] [address] [place] [address] 14 Nov, 2015 Generalized anxiety disorder F41.1 [facility] [address] [place] [address] 06 Nov, 2015 [facility] [address] [place] [address] Nov, [facility] [address] [place] [address] 04 Nov, 2015 Chronic pain G89.29 [facility] [address] [place] [address] Oct, [facility] [address] [place] [address] Oct, Other chronic pain G89.29 [facility] [address] [place] [address] Oct, [facility] [address] [place] [address] Oct, [facility] [address] [place] [address] Oct, Nausea and vomiting R11.2 [facility] [address] [place] [address] Oct, Chronic pain G89.29 [facility] [address] [place] [address] Sep, [facility] [address] [place] [address] Sep, Acute upper respiratory infection, unspecified J06.9 [facility] [address] [place] [address] Sep, Upper respiratory infection J06.9 [facility] [address] [place] [address] Sep, [facility] [address] [place] [address] Sep, [facility] [address] [place] [address] Sep, Other chronic pain G89.29 [facility] [address] [place] [phone] Sep, AIDS B20 ; 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 ; Smoking F17.200 ; Mixed hyperlipidemia E78.2 ; Chronic pain G89.29 and Edema R60.9 [facility] [address] [place] [address] Sep, [facility] [address] [place] [address] Sep, [facility] [address] [place] [address] Aug, [facility] [address] [place] [address] [place] [address] Aug, Other chronic pain G89.29 [facility] [address] [facility] [place] [address] Aug, Generalized anxiety disorder F41.1 [facility] [address] [place] [facility] [place] [address] July, Other chronic pain G89.29 [facility] [address] [place] [facility] [place] [address] July, Other chronic pain G89.29 [facility] [address] [place] [facility] [place] [address] July, [facility] [address] [place] [facility] [place] [address] Jun, Generalized anxiety disorder F41.1 [facility] [address] [place] [facility] [place] [address] Jun, [facility] [address] [place] [facility] [place] [address] Jun, Other chronic pain G89.29 [facility] [address] [facility] [place] [address] Jun, Rash and other nonspecific skin eruption R21 [facility] [address] [facility] [place] [address] Jun, [facility] [address] [facility] [place] [address] Jun, [facility] [address] [place] [facility] [place] [address] Jun, [facility] [address] [facility] [place] [address] Jun, [facility] [address] [facility] [place] [address] Jun, [facility] [address] [place] [facility] [place] [address] Jun, [facility] [address] [place] [facility] [place] [address] Jun, [facility] [address] [facility] [place] [address] Jun, Other chronic pain G89.29 [facility] [address] [place] [facility] [place] [address] Jun, [facility] [address] [facility] [place] [address] Jun, [facility] [address] [facility] [place] [address] Jun, [facility] [address] [facility] [place] [address] Jun, [facility] [address] [facility] [place] [address] Jun, [facility] [address] [facility] [place] [address] Jun, [facility] [address] [facility] [place] [address] Jun, [facility] [address] [facility] [place] [address] Jun, [facility] [address] [facility] [place] [address] Jun, [facility] [address] [facility] [place] [address] Jun, Nausea and vomiting R11.2 [facility] [address] [facility] [place] [address] May, [facility] [address] [facility] [place] [address] May, Rash and other nonspecific skin eruption R21 [facility] [address] [facility] [place] [address] May, [facility] [address] [facility] [place] [address] May, [facility] [address] [place] [facility] [place] [address] May, [facility] [address] [place] [facility] [place] [address] May, [facility] [address] [place] [facility] [place] [address] May, [facility] [address] [place] [phone] May, Acquired immune deficiency syndrome B20 ; Screening examination for sexually transmitted disease Z11.3 ; Depression with anxiety F41.8 ; Other chronic pain G89.29 and Dermatitis L30.9 [facility] [address] [place] [address] May, [facility] [address] [place] [address] May, [facility] [address] [place] [address] May, [facility] [address] [place] [address] May, Backache M54.9 [facility] [address] [address] May, Rash and other nonspecific skin eruption R21 [facility] [address] [address] Apr, [facility] [address] [place] [address] Apr, [facility] [address] [place] [address] Apr, Other chronic pain G89.29 [facility] [address] [place] [address] Apr, [facility] [address] [place] [address] Apr, [facility] [address] [place] [address] Apr, [facility] [address] [place] [address] Apr, [facility] [address] [place] [address] Apr, [facility] [address] [place] [address] Apr, [facility] [address] [place] [address] Apr, [facility] [address] [place] [address] Apr, [facility] [address] [place] [address] Apr, [facility] [address] [place] [address] Apr, [facility] [address] [place] [address] Apr, Other chronic pain G89.29 ; Generalized anxiety disorder F41.1 ; Nausea R11.0 and AIDS B20 [facility] [address] [place] [address] Apr, [facility] [address] [place] [address] Apr, Generalized anxiety disorder F41.1 [facility] [address] [place] [address] Apr, [facility] [address] [place] [address] Apr, Other chronic pain G89.29 [facility] [address] [place] [address] Mar, [facility] [address] [place] [id number] Mar, alf (current) use of opiate analgesic Z79.891 ; Bipolar affective disorder F31.9 ; Smoking F17.200 ; Generalized anxiety disorder F41.1 ; Influenza vaccine administered Z23 and AIDS B20 [facility] [address] [place] [address] Mar, Other chronic pain G89.29 [facility] [address] [place] [address] Mar, Generalized anxiety disorder F41.1 [facility] [address] [place] [address] Mar, [facility] [address] [place] [address] Mar, Asymptomatic HIV infection Z21 [address] [address] Mar, Other chronic pain G89.29 [facility] [address] [place] [address] Feb, [facility] [address] [place] [address] Feb, [facility] [address] [place] [address] Feb, [facility] [address] [place] [address] Feb, [facility] [address] [place] [address] Feb, [facility] [address] [place] [address] Jan, Other chronic pain G89.29 and Nausea & vomiting R11.[address] [address] Jan, Other chronic pain G89.29 [facility] [address] [place] [address] Dec, [facility] [address] [place] [address] Dec, Other chronic pain G89.29 ; Asymptomatic HIV infection Z21 ; Intrinsic asthma J45.909 ; Bipolar affective disorder F31.9 ; Noncompliance Z91.19 ; Migraine G43.909 ; Tobacco use disorder Z72.0 ; GERD (gastroesophageal reflux disease) K21.9 ; Backache M54.9 and Generalized anxiety disorder F41.1 [facility] [address] [place] [address] Nov, [facility] [address] [place] [address] Nov, [facility] [address] [place] [address] Oct, Other chronic pain 338.[address] [address] Oct, [facility] [address] [place] [address] Oct, Unspecified backache 724.5 and Dysphagia 787.[address] [address] Sep, Other chronic pain 338.[address] [address] Sep, [address] [address] 30 Aug, 2014 URI (upper respiratory infection) 465.9 and Diarrhea 787.[address] [address] Aug, [address] [address] Aug, Other chronic pain 338.[address] [address] Aug, Other chronic pain 338.29 and Generalized anxiety disorder 300.[address] [address] Aug, [address] [address] July, Other chronic pain 338.29 [facility] [address] [place] [id number] July, Nondependent tobacco use disorder 305.1 ; Unspecified backache 724.5 ; Other chronic pain 338.29 ; Abdominal pain, unspecified site 789.00 ; alf (current) use of opiate analgesic V58.69 and Acquired immune deficiency syndrome [address] [address] July, Other chronic pain 338.[address] [address] Jun, Other chronic pain 338.[address] [address] Jun, [address] [address] Jun, Other chronic pain 338.[address] [address] Jun, URI (upper respiratory infection) 465.9 [facility] [address] [place] [address] Jun, Generalized anxiety disorder 300.02 and Seasonal allergies 477.[address] [address] Jun, Generalized anxiety disorder 300.[address] [address] May, Other chronic pain 338.[address] [address] May, Other chronic pain 338.29 and Generalized anxiety disorder 300.[address] [address] Apr, Asthma, intrinsic 493.10 and Acute upper respiratory infections of other multiple sites 465.[address] [address] Apr, [facility] [address] [facility] [address] [place] [id number] Apr, Depressive disorder [address] [address] Apr, Other chronic pain 338.[address] [address] Apr, [address] [address] Apr, Other chronic pain 338.[address] [address] Mar, Acute upper respiratory infections of unspecified site 465.9 [facility] [address] [place] [id number] Mar, Migraine 346.90 ; Nondependent tobacco use disorder 305.1 ; Esophageal reflux 530.81 ; Unspecified backache 724.5 ; Abdominal pain, generalized 789.07 ; Flatulence, eructation, and gas pain 787.3 ; Asymptomatic human immunodeficiency virus (HIV) infection status V08 ; Dyspepsia and other specified disorders of function of stomach 536.8 ; Nausea alone 787.02 and Asthma 493.90 [facility] [address] [place] [address] Mar, Other chronic pain 338.29 [facility] [address] [place] [address] Feb, Other chronic pain 338.29 and Generalized anxiety disorder 300.[address] [address] Feb, Abdominal pain, generalized 789.[address] [address] Jan, Abdominal pain, generalized 789.07 [facility] [address] [place] [id number] Dec, [address] [address] Dec, [address] [address] Dec, Unspecified backache 724.[address] [address] Dec, [facility] [address] [place] [address] Nov, [place] [id number] [id number] Nov, [facility] [address] [place] [id number] Nov, Bipolar disorder, unspecified 296.80 ; Abdominal pain, generalized 789.07 ; Generalized anxiety disorder 300.02 ; Nausea alone 787.02 ; Flu vaccine need V04.81 and Human immunodeficiency virus (HIV) disease 042 [facility] [address] [place] [address] Nov, [facility] [address] [facility] [address] [place] [id number] Oct, [facility] [address] [facility] [address] [place], [place] [id number] Oct, [facility] [address] [facility] [address] [place], [place] [id number] Aug, [facility] [address] [facility] [place] [address] Jun, [facility] [address] [facility] [place] [address] Mar, [facility] [address] [facility] [place] [address] Oct, [facility] [address] [facility] [place] [address] July, [facility] [address] [facility] [place] [address] Jun, [facility] [address] [facility] [place] [address] May, [facility] [address] [facility] [place] [address] Mar, [facility] [address] [facility] [place] [address] Feb, [facility] [address] [facility] [place] [address] Nov, [facility] [address] [facility] [place] [address] Oct, [facility] [address] [facility] [place] [address] Aug, [facility] [address] [facility] [place] [address] May, [facility] [address] [facility] [place] [address] Mar, IMMUNIZATIONS No Known Immunizations SOCIAL HISTORY Never Assessed REASON FOR VISIT refill PLAN OF CARE VITAL SIGNS MEDICATIONS Medication Instructions Dosage Frequency Start Date End Date Duration Status Marinol 10 MG Orally three times a [...]
[2018-03-22 14:07] LABS: PROTHROMBIN TIME PATIENT 12.9 SEC (12.2-14.7)
--- OUTSIDE RECORDS SUMMARY | 2018-03-22 14:08 | XMS REPORT ---
Author Dulce Olvera [facility] Address [address], [place] [id number] Care Team Providers Care Unemployment Specialist Name Role Phone Dulce Olvera Unavailable PROBLEMS Type Condition ICD9-CM Code [id number] Code Onset Dates Condition Status SNOMED Code Problem Bipolar affective disorder F31.9 Active 89718523 Problem Nicotine dependence, cigarettes, uncomplicated F17.210 Active 71251267 Problem correction (current) use of opiate analgesic Z79.891 Active 155610622 Problem Non-intractable cyclical vomiting with nausea G43.A0 Active 24125403 Problem Poor appetite R63.0 Active 56972490 Problem Wheezing on auscultation R06.2 Active 905299101 Problem Acquired immune deficiency syndrome B20 Active 21053704 Problem Other chronic pain G89.29 Active 89787803 Problem Mood swings F39 Active 59355724 Problem Generalized anxiety disorder F41.1 Active 51325873 Problem GERD (gastroesophageal reflux disease) K21.9 Active 573666001 Problem Mixed hyperlipidemia E78.2 Active 839327808 Problem Intrinsic asthma J45.909 Active 422324033 Problem Migraine G43.909 Active 35984130 Problem Backache M54.9 Active 234754648 ALLERGIES No Information ENCOUNTERS Encounter Location Date Diagnosis [facility] [address] [place], [place] [id number] Sep, [facility] [address] [place] [address] July, [facility] [address] [place] [address] July, [facility] [address] [place] [address] July, [facility] [address] [place] [address] July, Poor appetite R63.0 and Backache M54.9 [facility] [address] [place] [facility] [place] [address] July, [facility] [address] [place] [facility] [place] [address] July, [facility] [address] [place] [facility] [place] [address] July, [facility] [address] [place] [facility] [place] [address] July, [facility] [address] [place] [facility] [place] [address] July, [facility] [address] [place] [facility] [place] [address] July, Nausea and vomiting R11.2 [facility] [address] [place] [facility] [place] [address] July, [facility] [address] [place] [facility] [place] [address] July, [facility] [address] [place] [facility] [place] [address] July, [facility] [address] [place] [facility] [place] [address] July, [facility] [address] [place] [facility] [place] [address] July, [facility] [address] [place] [facility] [place] [address] July, Other chronic pain G89.29 [facility] [address] [place] [facility] [place] [address] July, [facility] [address] [place] [facility] [place] [address] July, GERD (gastroesophageal reflux disease) K21.9 [facility] [address] [place] [facility] [place] [address] July, [facility] [address] [place] [facility] [place] [address] Jun, [facility] [address] [place] [facility] [place] [address] Jun, [facility] [address] [place] [facility] [place] [address] Jun, [facility] [address] [place] [address] Jun, [facility] [address] [place] [address] Jun, Other chronic pain G89.29 [facility] [address] [place] [address] Jun, [facility] [address] [place] [address] Jun, [facility] [address] [place] [address] Jun, [facility] [address] [place] [address] Jun, [facility] [address] [place] [address] Jun, [facility] [address] [place] [address] Jun, Generalized anxiety disorder F41.1 ; Other chronic pain G89.29 and Non-intractable cyclical vomiting with nausea G43.A0 [facility] [address] [place] [id number] Jun, Acquired immune deficiency syndrome B20 ; 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 ; Nicotine dependence, cigarettes, uncomplicated F17.210 ; Lower respiratory infection J22 ; Poor appetite R63.0 ; Other chronic pain G89.29 ; Generalized anxiety disorder F41.1 and Need for tetanus booster Z23 [facility] [address] [place] [address] Jun, [facility] [address] [place] [address] May, Generalized abdominal pain R10.84 [facility] [address] [place] [address] May, [facility] [address] [place] [address] Apr, AIDS B20 ; Generalized abdominal pain R10.84 and Dysmenorrhea N94.6 [facility] [address] [place] [address] Apr, Acute URI J06.9 [facility] [address] [place] [address] Apr, [facility] [address] [place] [address] Apr, [facility] [address] [place] [id number] Apr, Acquired immune deficiency syndrome B20 ; 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 and Migraine G43.909 [facility] [address] [place] [address] Mar, Dysmenorrhea N94.[address] [address] Mar, [facility] [address] [place] [address] Mar, Generalized anxiety disorder F41.1 and Generalized abdominal pain R10.84 [facility] [address] [place] [address] Mar, [facility] [address] [place] [address] Mar, Generalized abdominal pain R10.84 and Generalized anxiety disorder F41.[address] [address] Feb, [facility] [address] [place] [address] Feb, Generalized abdominal pain R10.84 [facility] [address] [place] [address] Jan, Nausea and vomiting R11.2 [facility] [address] [place] [address] Jan, [facility] [address] [place] [address] Jan, [facility] [address] [place] [address] Jan, [facility] [address] [place] [address] 15 Jan, 2017 [facility] [address] [place] [address] 14 Jan, 2017 [facility] [address] [place] [address] Jan, Mood swings F39 [facility] [address] [place] [address] Jan, [facility] [address] [place] [address] Jan, [facility] [address] [place] [address] Jan, [facility] [address] [place] [address] Jan, Dysmenorrhea N94.6 [facility] [address] [place] [phone] Jan, Acquired immune deficiency syndrome B20 ; Generalized abdominal pain R10.84 and Refused influenza vaccine Z28.21 [facility] [address] [place] [address] Jan, [facility] [address] [place] [address] Dec, Generalized abdominal pain R10.84 [facility] [address] [address] Dec, Dysmenorrhea N94.6 [facility] [address] [address] Dec, Backache M54.9 [facility] [address] [place] [address] Nov, Generalized abdominal pain R10.84 [facility] [address] [place] [address] Nov, Generalized anxiety disorder F41.1 [facility] [address] [place] [address] 08 Nov, 2016 Dysmenorrhea N94.6 [facility] [address] [address] Oct, [facility] [address] [place] [address] Oct, [facility] [address] [place] [address] Oct, [facility] [address] [place] [address] Oct, Generalized abdominal pain R10.84 [facility] [address] [place] [id number] Oct, Acquired immune deficiency syndrome B20 ; correction 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 Z79.891 ; Bipolar affective disorder F31.9 ; Generalized anxiety disorder F41.1 ; Backache M54.9 ; Mixed hyperlipidemia E78.2 ; Nicotine dependence, cigarettes, uncomplicated F17.210 and Wheezing on auscultation R06.[address] [address] Oct, Oral candidiasis B37.[address] [address] Oct, [facility] [address] [place] [address] Oct, Acute upper respiratory infection J06.[address] [address] Oct, Acute upper respiratory infection J06.[address] [address] Sep, Dysmenorrhea N94.[address] [address] Sep, Generalized anxiety disorder F41.[address] [address] Sep, Dysmenorrhea N94.6 [facility] [address] [place] [address] Sep, [facility] [address] [address] Sep, Dysmenorrhea N94.[address] [address] Aug, Acquired immune deficiency syndrome B20 [facility] [address] [place] [address] Aug, Generalized anxiety disorder F41.1 [facility] [address] [place] [address] Aug, [facility] [address] [place] [facility] [place] [facility] [address] Aug, [facility] [address] [place] [facility] [address] Aug, [facility] [address] [place] [facility] [address] Aug, [facility] [address] [place] [address] Aug, [facility] [address] [place] [address] Aug, [facility] [address] [place] [address] Aug, [facility] [address] [place] [address] Aug, Acute opioid withdrawal F11.23 [facility] [address] [place] [address] July, Upper respiratory infection J06.9 [facility] [address] [place] [address] July, Backache M54.9 [facility] [address] [place] [phone] July, Acquired immune deficiency syndrome B20 ; manager terminal 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 Z79.891 ; Hyperglycemia R73.9 ; Bipolar affective disorder F31.9 ; GERD (gastroesophageal reflux disease) K21.9 ; Backache M54.9 ; Generalized anxiety disorder F41.1 ; Mixed hyperlipidemia E78.2 ; Nicotine dependence, cigarettes, uncomplicated F17.210 and Localized edema R60.0 [facility] [address] [place] [address] July, [facility] [address] [place] [address] Jun, Backache M54.9 [facility] [address] [place] [address] Jun, Chronic pain G89.[address] [address] May, Backache M54.[address] [address] May, Backache M54.[address] [address] Apr, Cough R05 [facility] [address] [facility] [place] [id number] Apr, Acquired immune deficiency syndrome B20 ; Screening examination for sexually transmitted disease Z11.3 ; Dermatitis L30.9 and Migraine with aura and with status migrainosus, not intractable G43.[address] [address] Apr, Backache M54.[address] [address] Mar, Intrinsic asthma J45.909 ; Nausea and vomiting R11.2 and AIDS B20 [address] [address] Mar, Backache M54.[address] [address] Feb, Chronic pain G89.[address] [address] Feb, Backache M54.[address] [address] Jan, [facility] eye, 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 [address] Jan, Asthma, intrinsic 493.[address] [address] Jan, [address] [address] Jan, [address] [place] [address] Jan, Backache M54.9 [facility] [address] [place] [address] 30 Dec, 2015 Chronic pain G89.29 [facility] [address] [facility] [place] [id number] Dec, AIDS B20 ; Influenza vaccine needed Z23 ; Intrinsic asthma J45.909 ; Backache M54.9 ; Generalized anxiety disorder F41.1 ; Nicotine dependence, cigarettes, uncomplicated F17.210 and Mixed hyperlipidemia E78.2 [facility] [address] [place] [address] Dec, [address] [address] Dec, Dysmenorrhea N94.[address] [address] Dec, [facility] [address] [place] [address] 17 Dec, 2015 Depression with anxiety F41.8 and Backache M54.9 [facility] [address] [place] [address] 19 Nov, 2015 [facility] [address] [place] [address] 19 Nov, 2015 Other chronic pain G89.29 [facility] [address] [place] [address] 18 Nov, 2015 Other chronic pain G89.29 [facility] [address] [place] [address] 18 Nov, 2015 [facility] [address] [place] [address] 14 Nov, 2015 Generalized anxiety disorder F41.1 [facility] [address] [place] [address] 06 Nov, 2015 [facility] [address] [place] [address] 06 Nov, 2015 [facility] [address] [place] [address] 04 Nov, 2015 Chronic pain G89.29 [facility] [address] [place] [address] Oct, [facility] [address] [place] [address] Oct, Other chronic pain G89.29 [facility] [address] [place] [address] Oct, [facility] [address] [place] [address] Oct, [facility] [address] [place] [address] Oct, Nausea and vomiting R11.2 [facility] [address] [place] [address] Oct, Chronic pain G89.29 [facility] [address] [place] [address] Sep, [facility] [address] [place] [address] Sep, Acute upper respiratory infection, unspecified J06.9 [facility] [address] [place] [address] Sep, Upper respiratory infection J06.9 [facility] [address] [place] [address] Sep, [facility] [address] [place] [address] Sep, [facility] [address] [place] [address] Sep, Other chronic pain G89.29 [facility] [address] [facility] [place] [id number] Sep, AIDS B20 ; manager terminal (current) use of opiate analgesic Z79.891 ; Smoking F17.200 ; Mixed hyperlipidemia E78.2 ; Chronic pain G89.29 and Edema R60.9 [facility] [address] [place] [address] Sep, [facility] [address] [place] [address] Sep, [facility] [address] [place] [facility] [place] [address] Aug, [facility] [address] [place] [facility] [place] [address] Aug, Other chronic pain G89.29 [facility] [address] [place] [facility] [address] Aug, Generalized anxiety disorder F41.1 [facility] [address] [place] [facility] [place] [address] July, Other chronic pain G89.29 [facility] [address] [place] [facility] [place] [address] July, Other chronic pain G89.29 [facility] [address] [place] [facility] [address] July, [facility] [address] [place] [facility] [place] [address] Jun, Generalized anxiety disorder F41.1 [facility] [address] [place] [facility] [address] Jun, [facility] [address] [place] [facility] [place] [address] Jun, Other chronic pain G89.29 [facility] [address] [place] [facility] [place] [address] Jun, Rash and other nonspecific skin eruption R21 [facility] [address] [place] [facility] [address] Jun, [facility] [address] [place] [facility] [address] Jun, [facility] [address] [place] [facility] [place] [address] Jun, [facility] [address] [place] [facility] [place] [facility] [address] Jun, [facility] [address] [place] [facility] [place] [facility] [address] Jun, [facility] [address] [place] [facility] [place] [facility] [address] Jun, [facility] [address] [place] [facility] [place] [address] Jun, [facility] [address] [place] [facility] [place] [address] Jun, Other chronic pain G89.29 [facility] [address] [place] [facility] [place] [address] Jun, [facility] [address] [place] [facility] [place] [address] Jun, [facility] [address] [place] [facility] [place] [facility] [address] Jun, [facility] [address] [place] [facility] [place] [address] Jun, [facility] [address] [place] [facility] [place] [address] Jun, [facility] [address] [place] [facility] [place] [address] Jun, [facility] [address] [place] [facility] [place] [address] Jun, [facility] [address] [place] [facility] [place] [address] Jun, [facility] [address] [place] [facility] [place] [address] Jun, [facility] [address] [place] [facility] [place] [address] Jun, Nausea and vomiting R11.2 [facility] [address] [place] [facility] [place] [address] May, [facility] [address] [place] [facility] [place] [address] May, Rash and other nonspecific skin eruption R21 [facility] [address] [place] [facility] [place] [address] May, [facility] [address] [place] [facility] [place] [address] May, [facility] [address] [place] [facility] [place] [facility] [address] May, [facility] [address] [place] [facility] [place] [facility] [address] May, [facility] [address] [place] [address] May, [facility] [address] [facility] [place] [id number] May, Acquired immune deficiency syndrome B20 ; Screening examination for sexually transmitted disease Z11.3 ; Depression with anxiety F41.8 ; Other chronic pain G89.29 and Dermatitis L30.9 [facility] [address] [place] [address] May, [facility] [address] [place] [address] May, [facility] [address] [place] [address] May, [facility] [address] [place] [address] May, Backache M54.9 [facility] [address] [place] [address] May, Rash and other nonspecific skin eruption R21 [facility] [address] [place] [address] Apr, [facility] [address] [place] [address] Apr, [facility] [address] [place] [address] Apr, Other chronic pain G89.29 [facility] [address] [place] [address] Apr, [facility] [address] [place] [address] Apr, [facility] [address] [place] [address] Apr, [facility] [address] [place] [address] Apr, [facility] [address] [place] [address] Apr, [facility] [address] [place] [address] Apr, [facility] [address] [place] [address] Apr, [facility] [address] [place] [address] Apr, [facility] [address] [place] [address] Apr, [facility] [address] [place] [address] Apr, [facility] [address] [place] [address] Apr, Other chronic pain G89.29 ; Generalized anxiety disorder F41.1 ; Nausea R11.0 and AIDS B20 [facility] [address] [place] [address] Apr, [facility] [address] [place] [address] Apr, Generalized anxiety disorder F41.1 [facility] [address] [place] [address] Apr, [facility] [address] [place] [address] Apr, Other chronic pain G89.[address] [address] Mar, [facility] [address] [place] [id number] Mar, manager terminal (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 opiate analgesic Z79.891 ; Bipolar affective disorder F31.9 ; Smoking F17.200 ; Generalized anxiety disorder F41.1 ; Influenza vaccine administered Z23 and AIDS B20 [facility] [address] [place] [address] Mar, Other chronic pain G89.29 [facility] [address] [place] [address] Mar, Generalized anxiety disorder F41.1 [facility] [address] [place] [address] Mar, [facility] [address] [place] [address] Mar, Asymptomatic HIV infection Z21 [facility] [address] [place] [address] Mar, Other chronic pain G89.29 [facility] [address] [place] [address] Feb, [facility] [address] [place] [address] Feb, [facility] [address] [place] [address] Feb, [facility] [address] [place] [address] Feb, [facility] [address] [place] [address] Feb, [facility] [address] [place] [address] Jan, Other chronic pain G89.29 and Nausea & vomiting R11.2 [facility] [address] [place] [address] Jan, Other chronic pain G89.29 [facility] [address] [place] [address] Dec, [facility] [address] [place] [address] Dec, Other chronic pain G89.29 ; Asymptomatic HIV infection Z21 ; Intrinsic asthma J45.909 ; Bipolar affective disorder F31.9 ; Noncompliance Z91.19 ; Migraine G43.909 ; Tobacco use disorder Z72.0 ; GERD (gastroesophageal reflux disease) K21.9 ; Backache M54.9 and Generalized anxiety disorder F41.1 [facility] [address] [place] [address] Nov, [facility] [address] [place] [address] Nov, [facility] [address] [place] [address] Oct, Other chronic pain 338.29 [facility] [address] [place] [address] Oct, [facility] [address] [place] [address] Oct, Unspecified backache 724.5 and Dysphagia 787.20 [facility] [address] [place] [address] Sep, Other chronic pain 338.29 [facility] [address] [place] [address] Sep, [facility] [address] [place] [address] Aug, URI (upper respiratory infection) 465.9 and Diarrhea 787.[address] [address] Aug, [address] [address] Aug, Other chronic pain 338.[address] [address] Aug, Other chronic pain 338.29 and Generalized anxiety disorder 300.[address] [address] Aug, [facility] [address] [place] [address] July, Other chronic pain 338.29 [facility] [address] [place] [id number] July, Nondependent tobacco use disorder 305.1 ; Unspecified backache 724.5 ; Other chronic pain 338.29 ; Abdominal pain, unspecified site 789.00 ; correction (current) use of opiate analgesic V58.69 and Acquired immune deficiency syndrome 042 [facility] [address] [place] [address] July, Other chronic pain 338.[address] [address] Jun, Other chronic pain 338.29 [facility] [address] [place] [address] Jun, [facility] [address] [place] [address] Jun, Other chronic pain 338.29 [facility] [address] [place] [address] Jun, URI (upper respiratory infection) 465.[address] [address] Jun, Generalized anxiety disorder 300.02 and Seasonal allergies 477.[address] [address] Jun, Generalized anxiety disorder 300.02 [facility] [address] [place] [id number] May, Other chronic pain 338.[address] [address] May, Other chronic pain 338.29 and Generalized anxiety disorder 300.[address] [address] 16 Apr, 2014 Asthma, intrinsic 493.10 and Acute upper respiratory infections of other multiple sites 465.[address] [address] Apr, [facility] [address] [facility] [address] [place] [id number] Apr, Depressive disorder [address] [address] Apr, Other chronic pain 338.[address] [address] Apr, [address] [address] Apr, Other chronic pain 338.[address] [address] Mar, Acute upper respiratory infections of unspecified site 465.[address] [id number] Mar, Migraine 346.90 ; Nondependent tobacco use disorder 305.1 ; Esophageal reflux 530.81 ; Unspecified backache 724.5 ; Abdominal pain, generalized 789.07 ; Flatulence, eructation, and gas pain 787.3 ; Asymptomatic human immunodeficiency virus (HIV) infection status V08 ; Dyspepsia and other specified disorders of function of stomach 536.8 ; Nausea alone 787.02 and Asthma 493.[address] [address] Mar, Other chronic pain 338.[address] [address] Feb, Other chronic pain 338.29 and Generalized anxiety disorder 300.[address] [address] Feb, Abdominal pain, generalized 789.[address] [address] Jan, Abdominal pain, generalized 789.[address] [id number] Dec, [address] [address] Dec, [address] [address] Dec, Unspecified backache 724.[address] [address] Dec, [address] [address] Nov, [facility] [address] [id number] Nov, [facility] [address] [facility] [place] [id number] Nov, Bipolar disorder, unspecified 296.80 ; Abdominal pain, generalized 789.07 ; Generalized anxiety disorder 300.02 ; Nausea alone 787.02 ; Flu vaccine need V04.81 and Human immunodeficiency virus (HIV) disease [address] [address] Nov, [facility] [id number] [place] [phone] Oct, [facility] [address] [id number] Oct, [facility] [place] [facility] [address] [facility] [address] [place] [id number] Aug, [facility] [address] [place] [facility] [address] Jun, [facility] [address] [place] [facility] [address] Mar, [facility] [address] [place] [facility] [address] Oct, [facility] [address] [place] [facility] [address] July, [facility] [address] [place] [facility] [address] Jun, [facility] [address] [place] [facility] [address] May, [facility] [address] [place] [facility] [address] Mar, [facility] [address] [place] [facility] [address] Feb, [facility] [address] [place] [facility] [address] Nov, [facility] [address] [place] [facility] [address] Oct, [facility] [address] [place] [facility] [address] Aug, [facility] [address] [place] [facility] [address] May, [facility] [address] [place] [facility] [address] Mar, IMMUNIZATIONS No Known Immunizations SOCIAL HISTORY [...]
--- OUTSIDE RECORDS SUMMARY | 2018-03-22 14:09 | XMS REPORT ---
Author Dulce Olvera [facility] Address [address] [place], [place] [id number] Care Team Providers Care Hourly Team Members Name Role Phone Dulce Olvera Unavailable PROBLEMS Type Condition ICD9-CM Code [id number] Code Onset Dates Condition Status SNOMED Code Problem Bipolar affective disorder F31.9 Active 32962630 Problem Nicotine dependence, cigarettes, uncomplicated F17.210 Active 24382089 Problem MCFP (current) use of opiate analgesic Z79.891 Active 152973316 Problem Non-intractable cyclical vomiting with nausea G43.A0 Active 60768843 Problem Poor appetite R63.0 Active 00321619 Problem Wheezing on auscultation R06.2 Active 841599054 Problem Acquired immune deficiency syndrome B20 Active 87617374 Problem Other chronic pain G89.29 Active 43953985 Problem Mood swings F39 Active 86350672 Problem Generalized anxiety disorder F41.1 Active 79388039 Problem GERD (gastroesophageal reflux disease) K21.9 Active 685329554 Problem Mixed hyperlipidemia E78.2 Active 335722618 Problem Intrinsic asthma J45.909 Active 903194994 Problem Migraine G43.909 Active 34162028 Problem Backache M54.9 Active 623240715 ALLERGIES No Information ENCOUNTERS Encounter Location Date Diagnosis [facility] [address] [place] [id number] Sep, [facility] [address] [place] [address] July, [facility] [address] [place] [address] July, [facility] [address] [place] [address] July, [facility] [address] [place] [address] July, Poor appetite R63.0 and Backache M54.9 [facility] [address] [place] [facility] [place] [address] July, [facility] [address] [place] [facility] [place] [address] July, [facility] [address] [place] [facility] [place] [address] July, [facility] [address] [place] [facility] [place] [address] July, [facility] [address] [place] [facility] [place] [address] July, [facility] [address] [place] [facility] [place] [address] July, Nausea and vomiting R11.2 [facility] [address] [place] [facility] [place] [address] July, [facility] [address] [place] [facility] [place] [address] July, [facility] [address] [place] [facility] [place] [address] July, [facility] [address] [place] [facility] [place] [address] July, [facility] [address] [place] [facility] [place] [address] July, [facility] [address] [place] [facility] [place] [address] July, Other chronic pain G89.29 [facility] [address] [place] [facility] [place] [address] July, [facility] [address] [place] [facility] [place] [address] July, GERD (gastroesophageal reflux disease) K21.9 [facility] [address] [place] [facility] [place] [address] July, [facility] [address] [place] [facility] [place] [address] Jun, [facility] [address] [place] [facility] [place] [address] Jun, [facility] [address] [place] [facility] [place] [address] Jun, [facility] [address] [place] [address] Jun, [facility] [address] [place] [address] Jun, Other chronic pain G89.29 [facility] [address] [place] [address] Jun, [facility] [address] [place] [address] Jun, [facility] [address] [place] [address] Jun, [facility] [address] [place] [address] Jun, [facility] [address] [place] [address] Jun, [facility] [address] [place] [address] Jun, Generalized anxiety disorder F41.1 ; Other chronic pain G89.29 and Non-intractable cyclical vomiting with nausea G43.A0 [facility] [address] [place] [phone] Jun, Acquired immune deficiency syndrome B20 ; 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 ; Nicotine dependence, cigarettes, uncomplicated F17.210 ; Lower respiratory infection J22 ; Poor appetite R63.0 ; Other chronic pain G89.29 ; Generalized anxiety disorder F41.1 and Need for tetanus booster Z23 [facility] [address] [place] [address] Jun, [facility] [address] [place] [address] May, Generalized abdominal pain R10.84 [facility] [address] [place] [address] May, [facility] [address] [place] [address] Apr, AIDS B20 ; Generalized abdominal pain R10.84 and Dysmenorrhea N94.6 [facility] [address] [place] [address] Apr, Acute URI J06.9 [facility] [address] [place] [address] Apr, [facility] [address] [place] [address] Apr, [facility] [address] [place] [phone] Apr, Acquired immune deficiency syndrome B20 ; 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 and Migraine G43.909 [facility] [address] [place] [address] Mar, Dysmenorrhea N94.[address] [address] Mar, [facility] [address] [place] [address] Mar, Generalized anxiety disorder F41.1 and Generalized abdominal pain R10.84 [facility] [address] [place] [address] Mar, [facility] [address] [place] [address] Mar, Generalized abdominal pain R10.84 and Generalized anxiety disorder F41.[address] [address] Feb, [facility] [address] [place] [address] Feb, Generalized abdominal pain R10.84 [facility] [address] [place] [address] Jan, Nausea and vomiting R11.2 [facility] [address] [place] [address] Jan, [facility] [address] [place] [address] Jan, [facility] [address] [place] [address] Jan, [facility] [address] [place] [address] 15 Jan, 2017 [facility] [address] [place] [address] 14 Jan, 2017 [facility] [address] [place] [address] Jan, Mood swings F39 [facility] [address] [place] [address] Jan, [facility] [address] [place] [address] Jan, [facility] [address] [place] [address] Jan, [facility] [address] [place] [address] Jan, Dysmenorrhea N94.6 [facility] [address] [place] [phone] Jan, Acquired immune deficiency syndrome B20 ; Generalized abdominal pain R10.84 and Refused influenza vaccine Z28.21 [facility] [address] [place] [address] Jan, [facility] [address] [place] [address] Dec, Generalized abdominal pain R10.84 [facility] [address] [address] Dec, Dysmenorrhea N94.6 [facility] [address] [address] Dec, Backache M54.9 [facility] [address] [place] [address] Nov, Generalized abdominal pain R10.84 [facility] [address] [place] [address] Nov, Generalized anxiety disorder F41.1 [facility] [address] [place] [address] 08 Nov, 2016 Dysmenorrhea N94.6 [facility] [address] [address] Oct, [facility] [address] [place] [address] Oct, [facility] [address] [place] [address] Oct, [facility] [address] [place] [address] Oct, Generalized abdominal pain R10.84 [facility] [address] [place] [address] Oct, Acquired immune deficiency syndrome B20 ; MCFP 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 Z79.891 ; Bipolar affective disorder F31.9 ; Generalized anxiety disorder F41.1 ; Backache M54.9 ; Mixed hyperlipidemia E78.2 ; Nicotine dependence, cigarettes, uncomplicated F17.210 and Wheezing on auscultation R06.[address] [address] Oct, Oral candidiasis B37.[address] [address] Oct, [facility] [address] [place] [address] Oct, Acute upper respiratory infection J06.[address] [address] Oct, Acute upper respiratory infection J06.[address] [address] Sep, Dysmenorrhea N94.[address] [address] Sep, Generalized anxiety disorder F41.[address] [address] Sep, Dysmenorrhea N94.6 [facility] [address] [place] [address] Sep, [facility] [address] [address] Sep, Dysmenorrhea N94.[address] [address] Aug, Acquired immune deficiency syndrome B20 [facility] [address] [place] [address] Aug, Generalized anxiety disorder F41.1 [facility] [address] [place] [address] Aug, [facility] [address] [place] [facility] [place] [facility] [address] Aug, [facility] [address] [place] [facility] [place] [facility] [address] Aug, [facility] [address] [place] [facility] [place] [facility] [address] Aug, [facility] [address] [facility] [place] [address] Aug, [facility] [address] [facility] [place] [address] Aug, [facility] [address] [facility] [place] [address] Aug, [facility] [address] [facility] [place] [address] Aug, Acute opioid withdrawal F11.23 [facility] [address] [place] [address] July, Upper respiratory infection J06.9 [facility] [address] [place] [address] July, Backache M54.9 [facility] [address] [place] [phone] July, Acquired immune deficiency syndrome B20 ; 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 ; Hyperglycemia R73.9 ; Bipolar affective disorder F31.9 ; GERD (gastroesophageal reflux disease) K21.9 ; Backache M54.9 ; Generalized anxiety disorder F41.1 ; Mixed hyperlipidemia E78.2 ; Nicotine dependence, cigarettes, uncomplicated F17.210 and Localized edema R60.0 [facility] [address] [place] [address] July, [facility] [address] [place] [address] Jun, Backache M54.9 [facility] [address] [place] [address] Jun, Chronic pain G89.[address] [address] May, Backache M54.[address] [address] May, Backache M54.[address] [address] Apr, Cough R05 [facility] [address] [facility] [place] [phone] Apr, Acquired immune deficiency syndrome B20 ; Screening examination for sexually transmitted disease Z11.3 ; Dermatitis L30.9 and Migraine with aura and with status migrainosus, not intractable G43.[address] [address] Apr, Backache M54.[address] [address] Mar, Intrinsic asthma J45.909 ; Nausea and vomiting R11.2 and AIDS B20 [address] [address] Mar, Backache M54.[address] [address] Feb, Chronic pain G89.[address] [address] Feb, Backache M54.[address] [address] Jan, [place] [facility], 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 [address] Jan, Asthma, intrinsic 493.[address] [address] Jan, [address] [address] Jan, [address] [place] [address] Jan, Backache M54.9 [facility] [address] [place] [address] 30 Dec, 2015 Chronic pain G89.29 [facility] [address] [facility] [place] [phone] Dec, AIDS B20 ; Influenza vaccine needed Z23 ; Intrinsic asthma J45.909 ; Backache M54.9 ; Generalized anxiety disorder F41.1 ; Nicotine dependence, cigarettes, uncomplicated F17.210 and Mixed hyperlipidemia E78.2 [facility] [address] [place] [address] Dec, [address] [address] Dec, Dysmenorrhea N94.[address] [address] Dec, [facility] [address] [place] [address] 17 Dec, 2015 Depression with anxiety F41.8 and Backache M54.9 [facility] [address] [place] [address] 19 Nov, 2015 [facility] [address] [place] [address] 19 Nov, 2015 Other chronic pain G89.29 [facility] [address] [place] [address] 18 Nov, 2015 Other chronic pain G89.29 [facility] [address] [place] [address] 18 Nov, 2015 [facility] [address] [place] [address] 14 Nov, 2015 Generalized anxiety disorder F41.1 [facility] [address] [place] [address] 06 Nov, 2015 [facility] [address] [place] [address] 06 Nov, 2015 [facility] [address] [place] [address] 04 Nov, 2015 Chronic pain G89.29 [facility] [address] [place] [address] Oct, [facility] [address] [place] [address] Oct, Other chronic pain G89.29 [facility] [address] [place] [address] Oct, [facility] [address] [place] [address] Oct, [facility] [address] [place] [address] Oct, Nausea and vomiting R11.2 [facility] [address] [place] [address] Oct, Chronic pain G89.29 [facility] [address] [place] [address] Sep, [facility] [address] [place] [address] Sep, Acute upper respiratory infection, unspecified J06.9 [facility] [address] [place] [address] Sep, Upper respiratory infection J06.9 [facility] [address] [place] [address] Sep, [facility] [address] [place] [address] Sep, [facility] [address] [place] [address] Sep, Other chronic pain G89.29 [facility] [address] [facility] [place] [address] Sep, AIDS B20 ; 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 ; Smoking F17.200 ; Mixed hyperlipidemia E78.2 ; Chronic pain G89.29 and Edema R60.9 [facility] [address] [place] [address] Sep, [facility] [address] [place] [address] Sep, [facility] [address] [place] [facility] [place] [address] Aug, [facility] [address] [place] [facility] [place] [address] Aug, Other chronic pain G89.29 [facility] [address] [place] [facility] [place] [address] Aug, Generalized anxiety disorder F41.1 [facility] [address] [place] [facility] [place] [address] July, Other chronic pain G89.29 [facility] [address] [place] [facility] [place] [address] July, Other chronic pain G89.29 [facility] [address] [place] [facility] [place] [address] July, [facility] [address] [place] [facility] [place] [address] Jun, Generalized anxiety disorder F41.1 [facility] [address] [place] [facility] [place] [address] Jun, [facility] [address] [place] [facility] [place] [address] Jun, Other chronic pain G89.29 [facility] [address] [place] [facility] [place] [address] Jun, Rash and other nonspecific skin eruption R21 [facility] [address] [place] [facility] [place] [address] Jun, [facility] [address] [place] [facility] [place] [address] Jun, [facility] [address] [place] [facility] [place] [address] Jun, [facility] [address] [place] [facility] [place] [facility] [address] Jun, [facility] [address] [place] [facility] [place] [facility] [address] Jun, [facility] [address] [place] [facility] [place] [address] Jun, [facility] [address] [place] [facility] [place] [address] Jun, [facility] [address] [place] [facility] [place] [address] Jun, Other chronic pain G89.29 [facility] [address] [place] [facility] [place] [address] Jun, [facility] [address] [place] [facility] [place] [address] Jun, [facility] [address] [place] [facility] [place] [address] Jun, [facility] [address] [place] [facility] [place] [address] Jun, [facility] [address] [place] [facility] [place] [address] Jun, [facility] [address] [place] [facility] [place] [address] Jun, [facility] [address] [place] [facility] [place] [address] Jun, [facility] [address] [place] [facility] [place] [address] Jun, [facility] [address] [place] [facility] [place] [address] Jun, [facility] [address] [place] [facility] [place] [address] Jun, Nausea and vomiting R11.2 [facility] [address] [place] [facility] [place] [address] May, [facility] [address] [place] [facility] [place] [address] May, Rash and other nonspecific skin eruption R21 [facility] [address] [place] [facility] [place] [address] May, [facility] [address] [place] [facility] [place] [address] May, [facility] [address] [place] [facility] [address] May, [facility] [address] [place] [facility] [place] [facility] [address] May, [facility] [address] [place] [address] May, [facility] [address] [facility] [place] [id number] May, Acquired immune deficiency syndrome B20 ; Screening examination for sexually transmitted disease Z11.3 ; Depression with anxiety F41.8 ; Other chronic pain G89.29 and Dermatitis L30.9 [facility] [address] [place] [address] May, [facility] [address] [place] [address] May, [facility] [address] [place] [address] May, [facility] [address] [place] [address] May, Backache M54.9 [facility] [address] [place] [address] May, Rash and other nonspecific skin eruption R21 [facility] [address] [place] [address] Apr, [facility] [address] [place] [address] Apr, [facility] [address] [place] [address] Apr, Other chronic pain G89.29 [facility] [address] [place] [address] Apr, [facility] [address] [place] [address] Apr, [facility] [address] [place] [address] Apr, [facility] [address] [place] [address] Apr, [facility] [address] [place] [address] Apr, [facility] [address] [place] [address] Apr, [facility] [address] [place] [address] Apr, [facility] [address] [place] [address] Apr, [facility] [address] [place] [address] Apr, [facility] [address] [place] [address] Apr, [facility] [address] [place] [address] Apr, Other chronic pain G89.29 ; Generalized anxiety disorder F41.1 ; Nausea R11.0 and AIDS B20 [facility] [address] [place] [address] Apr, [facility] [address] [place] [address] Apr, Generalized anxiety disorder F41.1 [facility] [address] [place] [address] Apr, [facility] [address] [place] [address] Apr, Other chronic pain G89.[address] [address] Mar, [facility] [address] [place] [id number] Mar, 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 ; Bipolar affective disorder F31.9 ; Smoking F17.200 ; Generalized anxiety disorder F41.1 ; Influenza vaccine administered Z23 and AIDS B20 [facility] [address] [place] [address] Mar, Other chronic pain G89.29 [facility] [address] [place] [address] Mar, Generalized anxiety disorder F41.1 [facility] [address] [place] [address] Mar, [facility] [address] [place] [address] Mar, Asymptomatic HIV infection Z21 [facility] [address] [place] [address] Mar, Other chronic pain G89.29 [facility] [address] [place] [address] Feb, [facility] [address] [place] [address] Feb, [facility] [address] [place] [address] Feb, [facility] [address] [place] [address] Feb, [facility] [address] [place] [address] Feb, [facility] [address] [place] [address] Jan, Other chronic pain G89.29 and Nausea & vomiting R11.2 [facility] [address] [place] [address] Jan, Other chronic pain G89.29 [facility] [address] [place] [address] Dec, [facility] [address] [place] [address] Dec, Other chronic pain G89.29 ; Asymptomatic HIV infection Z21 ; Intrinsic asthma J45.909 ; Bipolar affective disorder F31.9 ; Noncompliance Z91.19 ; Migraine G43.909 ; Tobacco use disorder Z72.0 ; GERD (gastroesophageal reflux disease) K21.9 ; Backache M54.9 and Generalized anxiety disorder F41.1 [facility] [address] [place] [address] Nov, [facility] [address] [place] [address] Nov, [facility] [address] [place] [address] Oct, Other chronic pain 338.29 [facility] [address] [place] [address] Oct, [facility] [address] [place] [address] Oct, Unspecified backache 724.5 and Dysphagia 787.20 [facility] [address] [place] [address] Sep, Other chronic pain 338.29 [facility] [address] [place] [address] Sep, [facility] [address] [place] [address] Aug, URI (upper respiratory infection) 465.9 and Diarrhea 787.[address] [address] Aug, [address] [address] Aug, Other chronic pain 338.[address] [address] Aug, Other chronic pain 338.29 and Generalized anxiety disorder 300.[address] [id number] Aug, [facility] [address] [place] [address] July, Other chronic pain 338.29 [facility] [address] [place], [place] [id number] July, Nondependent tobacco use disorder 305.1 ; Unspecified backache 724.5 ; Other chronic pain 338.29 ; Abdominal pain, unspecified site 789.00 ; [facility] (current) use of opiate analgesic V58.69 and Acquired immune deficiency syndrome 042 [facility] [address] [place] [id number] July, Other chronic pain 338.[address] [address] Jun, Other chronic pain 338.29 [facility] [address] [place] [address] Jun, [facility] [address] [place] [address] Jun, Other chronic pain 338.29 [facility] [address] [place] [address] Jun, URI (upper respiratory infection) 465.[address] [address] Jun, Generalized anxiety disorder 300.02 and Seasonal allergies 477.[address] [address] Jun, Generalized anxiety disorder 300.02 [facility] [address] [place] [address] May, Other chronic pain 338.[address] [address] May, Other chronic pain 338.29 and Generalized anxiety disorder 300.[address] [address] 16 Apr, 2014 Asthma, intrinsic 493.10 and Acute upper respiratory infections of other multiple sites 465.[address] [address] Apr, [facility] [address] [facility] [address] [place] [id number] Apr, Depressive disorder [address] [address] Apr, Other chronic pain 338.[address] [address] Apr, [address] [address] Apr, Other chronic pain 338.[address] [address] Mar, Acute upper respiratory infections of unspecified site 465.[address] [id number] Mar, Migraine 346.90 ; Nondependent tobacco use disorder 305.1 ; Esophageal reflux 530.81 ; Unspecified backache 724.5 ; Abdominal pain, generalized 789.07 ; Flatulence, eructation, and gas pain 787.3 ; Asymptomatic human immunodeficiency virus (HIV) infection status V08 ; Dyspepsia and other specified disorders of function of stomach 536.8 ; Nausea alone 787.02 and Asthma 493.[address] [address] Mar, Other chronic pain 338.[address] [address] Feb, Other chronic pain 338.29 and Generalized anxiety disorder 300.[address] [address] Feb, Abdominal pain, generalized 789.[address] [address] Jan, Abdominal pain, generalized 789.[address] [id number] Dec, [address] [address] Dec, [address] [address] Dec, Unspecified backache 724.[address] [address] Dec, [address] [address] Nov, [facility] [address] [id number] Nov, [facility] [address] [facility] [place] [id number] Nov, Bipolar disorder, unspecified 296.80 ; Abdominal pain, generalized 789.07 ; Generalized anxiety disorder 300.02 ; Nausea alone 787.02 ; Flu vaccine need V04.81 and Human immunodeficiency virus (HIV) disease [address] [address] Nov, [facility] [address] [place], [place] [id number] Oct, [facility] [address] [id number] Oct, [facility] [place] [facility] [address] [facility] [address] [place], [place] [id number] Aug, [facility] [address] [place] [facility] [address] Jun, [facility] [address] [place] [facility] [address] Mar, [facility] [address] [place] [facility] [address] Oct, [facility] [address] [place] [facility] [address] July, [facility] [address] [place] [facility] [address] Jun, [facility] [address] [place] [facility] [address] May, [facility] [address] [place] [facility] [address] Mar, [facility] [address] [place] [facility] [address] Feb, [facility] [address] [place] [facility] [address] Nov, [facility] [address] [place] [facility] [address] Oct, [facility] [address] [place] [facility] [address] Aug, [facility] [address] [place] [facility] [address] May, [facility] [address] [place] [facility] [address] Mar, IMMUNIZATIONS No Known Immunizations SOCIAL HISTORY [...]
--- OUTSIDE RECORDS SUMMARY | 2018-03-22 14:09 | XMS REPORT ---
Author Dulce Olvera [facility] Address [address], [place] [id number] Care Team Providers Care Clinical Documentation Clerk Name Role Phone Dulce Olvera Unavailable PROBLEMS Type Condition ICD9-CM Code FTC53-BG Code Onset Dates Condition Status SNOMED Code Problem Bipolar affective disorder F31.9 Active 61973527 Problem Nicotine dependence, cigarettes, uncomplicated F17.210 Active 19128930 Problem FDC (current) use of opiate analgesic Z79.891 Active 701156471 Problem Non-intractable cyclical vomiting with nausea G43.A0 Active 07570803 Problem Poor appetite R63.0 Active 67200859 Problem Wheezing on auscultation R06.2 Active 305476720 Problem Acquired immune deficiency syndrome B20 Active 67096960 Problem Other chronic pain G89.29 Active 60966331 Problem Mood swings F39 Active 81924683 Problem Generalized anxiety disorder F41.1 Active 63412902 Problem GERD (gastroesophageal reflux disease) K21.9 Active 045196592 Problem Mixed hyperlipidemia E78.2 Active 944117999 Problem Intrinsic asthma J45.909 Active 742879140 Problem Migraine G43.909 Active 26221418 Problem Backache M54.9 Active [id number] ALLERGIES No Information ENCOUNTERS Encounter Location Date Diagnosis [facility] [address] [place] [id number] Sep, [facility] [address] [place] [address] July, [facility] [address] [place] [address] July, [facility] [address] [place] [address] July, [facility] [address] [place] [address] July, Poor appetite R63.0 and Backache M54.9 [facility] [address] [place] [address] July, [facility] [address] [place] [address] July, [facility] [address] [place] [address] July, [facility] [address] [place] [address] July, [facility] [address] [place] [address] July, [facility] [address] [place] [address] July, Nausea and vomiting R11.2 [facility] [address] [place] [address] July, [facility] [address] [place] [address] July, [facility] [address] [place] [address] July, [facility] [address] [place] [address] July, [facility] [address] [place] [address] July, [facility] [address] [place] [address] July, Other chronic pain G89.29 [facility] [address] [place] [address] July, [facility] [address] [place] [address] July, GERD (gastroesophageal reflux disease) K21.9 [facility] [address] [place] [address] July, [facility] [address] [place] [address] Jun, [facility] [address] [place] [address] Jun, [facility] [address] [place] [address] Jun, [facility] [address] [place] [address] Jun, [facility] [address] [place] [address] Jun, Other chronic pain G89.29 [facility] [address] [place] [address] Jun, [facility] [address] [place] [address] Jun, [facility] [address] [place] [address] Jun, [facility] [address] [place] [address] Jun, [facility] [address] [place] [address] Jun, [facility] [address] [place] [address] Jun, Generalized anxiety disorder F41.1 ; Other chronic pain G89.29 and Non-intractable cyclical vomiting with nausea G43.A0 [facility] [address] [place], [place] [id number] Jun, Acquired immune deficiency syndrome B20 ; 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 ; Nicotine dependence, cigarettes, uncomplicated F17.210 ; Lower respiratory infection J22 ; Poor appetite R63.0 ; Other chronic pain G89.29 ; Generalized anxiety disorder F41.1 and Need for tetanus booster Z23 [facility] [address] [place] [address] Jun, [facility] [address] [place] [address] May, Generalized abdominal pain R10.84 [facility] [address] [place] [address] May, [facility] [address] [place] [address] Apr, AIDS B20 ; Generalized abdominal pain R10.84 and Dysmenorrhea N94.6 [facility] [address] [place] [address] Apr, Acute URI J06.9 [facility] [address] [place] [address] Apr, [facility] [address] [place] [address] Apr, [facility] [address] [place] [id number] Apr, Acquired immune deficiency syndrome B20 ; 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 and Migraine G43.909 [facility] [address] [place] [address] Mar, Dysmenorrhea N94.[address] [address] Mar, [facility] [address] [place] [address] Mar, Generalized anxiety disorder F41.1 and Generalized abdominal pain R10.84 [facility] [address] [place] [address] Mar, [facility] [address] [place] [address] Mar, Generalized abdominal pain R10.84 and Generalized anxiety disorder F41.[address] [address] Feb, [facility] [address] [place] [address] Feb, Generalized abdominal pain R10.84 [facility] [address] [place] [address] Jan, Nausea and vomiting R11.2 [facility] [address] [place] [address] Jan, [facility] [address] [place] [address] Jan, [facility] [address] [place] [address] Jan, [facility] [address] [place] [address] 15 Jan, 2017 [facility] [address] [place] [address] 14 Jan, 2017 [facility] [address] [place] [address] Jan, Mood swings F39 [facility] [address] [place] [address] Jan, [facility] [address] [place] [address] Jan, [facility] [address] [place] [address] Jan, [facility] [address] [place] [address] Jan, Dysmenorrhea N94.6 [facility] [address] [place] [id number] Jan, Acquired immune deficiency syndrome B20 ; Generalized abdominal pain R10.84 and Refused influenza vaccine Z28.21 [facility] [address] [place] [address] Jan, [facility] [address] [place] [address] Dec, Generalized abdominal pain R10.84 [facility] [address] [address] Dec, Dysmenorrhea N94.6 [facility] [address] [address] Dec, Backache M54.9 [facility] [address] [place] [address] Nov, Generalized abdominal pain R10.84 [facility] [address] [place] [address] Nov, Generalized anxiety disorder F41.1 [facility] [address] [place] [address] 08 Nov, 2016 Dysmenorrhea N94.6 [facility] [address] [address] Oct, [facility] [address] [place] [address] Oct, [facility] [address] [place] [address] Oct, [facility] [address] [place] [address] Oct, Generalized abdominal pain R10.84 [facility] [address] [place] [id number] Oct, Acquired immune deficiency syndrome B20 ; FDC 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 Z79.891 ; Bipolar affective disorder F31.9 ; Generalized anxiety disorder F41.1 ; Backache M54.9 ; Mixed hyperlipidemia E78.2 ; Nicotine dependence, cigarettes, uncomplicated F17.210 and Wheezing on auscultation R06.[address] [address] Oct, Oral candidiasis B37.[address] [address] Oct, [facility] [address] [place] [address] Oct, Acute upper respiratory infection J06.[address] [address] Oct, Acute upper respiratory infection J06.[address] [address] Sep, Dysmenorrhea N94.[address] [address] Sep, Generalized anxiety disorder F41.[address] [address] Sep, Dysmenorrhea N94.6 [facility] [address] [place] [address] Sep, [facility] [address] [address] Sep, Dysmenorrhea N94.[address] [address] Aug, Acquired immune deficiency syndrome B20 [facility] [address] [place] [address] Aug, Generalized anxiety disorder F41.1 [facility] [address] [place] [address] Aug, [facility] [address] [place] [address] Aug, [facility] [address] [place] [address] Aug, [facility] [address] [place] [address] Aug, [facility] [address] [place] [address] Aug, [facility] [address] [place] [address] Aug, [facility] [address] [place] [address] Aug, [facility] [address] [place] [address] Aug, Acute opioid withdrawal F11.23 [facility] [address] [place] [address] July, Upper respiratory infection J06.9 [facility] [address] [place] [address] July, Backache M54.9 [facility] [address] [place] [id number] July, Acquired immune deficiency syndrome B20 ; 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 manager 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 Z79.891 ; Hyperglycemia R73.9 ; Bipolar affective disorder F31.9 ; GERD (gastroesophageal reflux disease) K21.9 ; Backache M54.9 ; Generalized anxiety disorder F41.1 ; Mixed hyperlipidemia E78.2 ; Nicotine dependence, cigarettes, uncomplicated F17.210 and Localized edema R60.0 [facility] [address] [place] [address] July, [facility] [address] [place] [address] Jun, Backache M54.9 [facility] [address] [place] [address] Jun, Chronic pain G89.[address] [address] May, Backache M54.[address] [address] May, Backache M54.[address] [address] Apr, Cough R05 [facility] [address] [facility] [place] [id number] Apr, Acquired immune deficiency syndrome B20 ; Screening examination for sexually transmitted disease Z11.3 ; Dermatitis L30.9 and Migraine with aura and with status migrainosus, not intractable G43.[address] [address] Apr, Backache M54.[address] [address] Mar, Intrinsic asthma J45.909 ; Nausea and vomiting R11.2 and AIDS B20 [address] [address] Mar, Backache M54.[address] [address] Feb, Chronic pain G89.[address] [address] Feb, Backache M54.[address] [address] Jan, [place] eye, 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 [address] Jan, Asthma, intrinsic 493.[address] [address] Jan, [address] [address] Jan, [address] [place] [address] Jan, Backache M54.9 [facility] [address] [place] [address] 30 Dec, 2015 Chronic pain G89.29 [facility] [address] [facility] [place] [id number] Dec, AIDS B20 ; Influenza vaccine needed Z23 ; Intrinsic asthma J45.909 ; Backache M54.9 ; Generalized anxiety disorder F41.1 ; Nicotine dependence, cigarettes, uncomplicated F17.210 and Mixed hyperlipidemia E78.2 [facility] [address] [place] [address] Dec, [address] [address] Dec, Dysmenorrhea N94.[address] [address] Dec, [facility] [address] [place] [address] 17 Dec, 2015 Depression with anxiety F41.8 and Backache M54.9 [facility] [address] [place] [address] 19 Nov, 2015 [facility] [address] [place] [address] 19 Nov, 2015 Other chronic pain G89.29 [facility] [address] [place] [address] 18 Nov, 2015 Other chronic pain G89.29 [facility] [address] [place] [address] 18 Nov, 2015 [facility] [address] [place] [address] 14 Nov, 2015 Generalized anxiety disorder F41.1 [facility] [address] [place] [address] 06 Nov, 2015 [facility] [address] [place] [address] 06 Nov, 2015 [facility] [address] [place] [address] 04 Nov, 2015 Chronic pain G89.29 [facility] [address] [place] [address] Oct, [facility] [address] [place] [address] Oct, Other chronic pain G89.29 [facility] [address] [place] [address] Oct, [facility] [address] [place] [address] Oct, [facility] [address] [place] [address] Oct, Nausea and vomiting R11.2 [facility] [address] [place] [address] Oct, Chronic pain G89.29 [facility] [address] [place] [address] Sep, [facility] [address] [place] [address] Sep, Acute upper respiratory infection, unspecified J06.9 [facility] [address] [place] [address] Sep, Upper respiratory infection J06.9 [facility] [address] [place] [address] Sep, [facility] [address] [place] [address] Sep, [facility] [address] [place] [address] Sep, Other chronic pain G89.29 [facility] [address] [facility] [place] [id number] Sep, AIDS B20 ; 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 manager (current) use of opiate analgesic Z79.891 ; Smoking F17.200 ; Mixed hyperlipidemia E78.2 ; Chronic pain G89.29 and Edema R60.9 [facility] [address] [place] [address] Sep, [facility] [address] [place] [address] Sep, [facility] [address] [place] [facility] [place] [address] Aug, [facility] [address] [place] [facility] [place] [address] Aug, Other chronic pain G89.29 [facility] [address] [place] [facility] [place] [address] Aug, Generalized anxiety disorder F41.1 [facility] [address] [place] [address] July, Other chronic pain G89.29 [facility] [address] [place] [address] July, Other chronic pain G89.29 [facility] [address] [place] [facility] [place] [address] July, [facility] [address] [place] [facility] [place] [address] Jun, Generalized anxiety disorder F41.1 [facility] [address] [place] [facility] [place] [address] Jun, [facility] [address] [place] [address] Jun, Other chronic pain G89.29 [facility] [address] [place] [facility] [place] [address] Jun, Rash and other nonspecific skin eruption R21 [facility] [address] [place] [address] Jun, [facility] [address] [place] [facility] [place] [address] Jun, [facility] [address] [place] [address] Jun, [facility] [address] [place] [facility] [place] [address] Jun, [facility] [address] [place] [address] Jun, [facility] [address] [place] [facility] [place] [address] Jun, [facility] [address] [place] [facility] [place] [address] Jun, [facility] [address] [place] [facility] [place] [address] Jun, Other chronic pain G89.29 [facility] [address] [place] [address] Jun, [facility] [address] [place] [address] Jun, [facility] [address] [place] [facility] [place] [address] Jun, [facility] [address] [place] [address] Jun, [facility] [address] [place] [facility] [place] [address] Jun, [facility] [address] [place] [address] Jun, [facility] [address] [place] [address] Jun, [facility] [address] [place] [address] Jun, [facility] [address] [place] [address] Jun, [facility] [address] [place] [facility] [place] [address] Jun, Nausea and vomiting R11.2 [facility] [address] [place] [address] May, [facility] [address] [place] [facility] [place] [address] May, Rash and other nonspecific skin eruption R21 [facility] [address] [place] [address] May, [facility] [address] [place] [facility] [place] [address] May, [facility] [address] [place] [facility] [place] [address] May, [facility] [address] [place] [facility] [place] [address] May, [facility] [address] [place] [address] May, [facility] [address] [facility] [place] [id number] May, Acquired immune deficiency syndrome B20 ; Screening examination for sexually transmitted disease Z11.3 ; Depression with anxiety F41.8 ; Other chronic pain G89.29 and Dermatitis L30.9 [facility] [address] [place] [address] May, [facility] [address] [place] [address] May, [facility] [address] [place] [address] May, [facility] [address] [place] [address] May, Backache M54.9 [facility] [address] [place] [address] May, Rash and other nonspecific skin eruption R21 [facility] [address] [place] [address] Apr, [facility] [address] [place] [address] Apr, [facility] [address] [place] [address] Apr, Other chronic pain G89.29 [facility] [address] [place] [address] Apr, [facility] [address] [place] [address] Apr, [facility] [address] [place] [address] Apr, [facility] [address] [place] [address] Apr, [facility] [address] [place] [address] Apr, [facility] [address] [place] [address] Apr, [facility] [address] [place] [address] Apr, [facility] [address] [place] [address] Apr, [facility] [address] [place] [address] Apr, [facility] [address] [place] [address] Apr, [facility] [address] [place] [address] Apr, Other chronic pain G89.29 ; Generalized anxiety disorder F41.1 ; Nausea R11.0 and AIDS B20 [facility] [address] [place] [address] Apr, [facility] [address] [place] [address] Apr, Generalized anxiety disorder F41.1 [facility] [address] [place] [address] Apr, [facility] [address] [place] [address] Apr, Other chronic pain G89.[address] [address] Mar, [facility] [address] [place] [id number] Mar, 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 manager (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 opiate analgesic Z79.891 ; Bipolar affective disorder F31.9 ; Smoking F17.200 ; Generalized anxiety disorder F41.1 ; Influenza vaccine administered Z23 and AIDS B20 [facility] [address] [place] [address] Mar, Other chronic pain G89.29 [facility] [address] [place] [address] Mar, Generalized anxiety disorder F41.1 [facility] [address] [place] [address] Mar, [facility] [address] [place] [address] Mar, Asymptomatic HIV infection Z21 [facility] [address] [place] [address] Mar, Other chronic pain G89.29 [facility] [address] [place] [address] Feb, [facility] [address] [place] [address] Feb, [facility] [address] [place] [address] Feb, [facility] [address] [place] [address] Feb, [facility] [address] [place] [address] Feb, [facility] [address] [place] [address] Jan, Other chronic pain G89.29 and Nausea & vomiting R11.2 [facility] [address] [place] [address] Jan, Other chronic pain G89.29 [facility] [address] [place] [address] Dec, [facility] [address] [place] [address] Dec, Other chronic pain G89.29 ; Asymptomatic HIV infection Z21 ; Intrinsic asthma J45.909 ; Bipolar affective disorder F31.9 ; Noncompliance Z91.19 ; Migraine G43.909 ; Tobacco use disorder Z72.0 ; GERD (gastroesophageal reflux disease) K21.9 ; Backache M54.9 and Generalized anxiety disorder F41.1 [facility] [address] [place] [address] Nov, [facility] [address] [place] [address] Nov, [facility] [address] [place] [address] Oct, Other chronic pain 338.29 [facility] [address] [place] [address] Oct, [facility] [address] [place] [address] Oct, Unspecified backache 724.5 and Dysphagia 787.20 [facility] [address] [place] [address] Sep, Other chronic pain 338.29 [facility] [address] [place] [address] Sep, [facility] [address] [place] [address] Aug, URI (upper respiratory infection) 465.9 and Diarrhea 787.[address] [address] Aug, [address] [address] [address] Aug, Other chronic pain 338.[address] [address] Aug, Other chronic pain 338.29 and Generalized anxiety disorder 300.[address] [address] Aug, [facility] [address] [place] [address] July, Other chronic pain 338.29 [facility] [address] [place], [place] [id number] July, Nondependent tobacco use disorder 305.1 ; Unspecified backache 724.5 ; Other chronic pain 338.29 ; Abdominal pain, unspecified site 789.00 ; FDC (current) use of opiate analgesic V58.69 and Acquired immune deficiency syndrome 042 [facility] [address] [place] [address] July, Other chronic pain 338.[address] [address] Jun, Other chronic pain 338.29 [facility] [address] [place] [address] Jun, [facility] [address] [place] [address] Jun, Other chronic pain 338.29 [facility] [address] [place] [address] Jun, URI (upper respiratory infection) 465.[address] [address] Jun, Generalized anxiety disorder 300.02 and Seasonal allergies 477.[address] [address] Jun, Generalized anxiety disorder 300.02 [facility] [address] [place] [address] May, Other chronic pain 338.[address] [address] May, Other chronic pain 338.29 and Generalized anxiety disorder 300.[address] [address] 16 Apr, 2014 Asthma, intrinsic 493.10 and Acute upper respiratory infections of other multiple sites 465.[address] [address] Apr, [facility] [address] [facility] [address] [place] [id number] Apr, Depressive disorder [address] [address] Apr, Other chronic pain 338.[address] [address] Apr, [address] [address] Apr, Other chronic pain 338.[address] [address] Mar, Acute upper respiratory infections of unspecified site 465.[address] [id number] Mar, Migraine 346.90 ; Nondependent tobacco use disorder 305.1 ; Esophageal reflux 530.81 ; Unspecified backache 724.5 ; Abdominal pain, generalized 789.07 ; Flatulence, eructation, and gas pain 787.3 ; Asymptomatic human immunodeficiency virus (HIV) infection status V08 ; Dyspepsia and other specified disorders of function of stomach 536.8 ; Nausea alone 787.02 and Asthma 493.[address] [address] Mar, Other chronic pain 338.[address] [address] Feb, Other chronic pain 338.29 and Generalized anxiety disorder 300.[address] [address] Feb, Abdominal pain, generalized 789.[address] [address] Jan, Abdominal pain, generalized 789.[address] [id number] Dec, [address] [address] Dec, [address] [address] Dec, Unspecified backache 724.[address] [address] Dec, [address] [address] Nov, [facility] [address] [id number] Nov, [facility] [address] [facility] [place] [id number] Nov, Bipolar disorder, unspecified 296.80 ; Abdominal pain, generalized 789.07 ; Generalized anxiety disorder 300.02 ; Nausea alone 787.02 ; Flu vaccine need V04.81 and Human immunodeficiency virus (HIV) disease [address] [address] Nov, [facility] [address] [place], [place] [id number] Oct, [facility] [address] [id number] Oct, [facility] [place] [facility] [address] [facility] [address] [place], [place] [id number] Aug, [facility] [address] [place] [facility] [place] [address] Jun, [facility] [address] [place] [facility] [address] Mar, [facility] [address] [place] [facility] [address] Oct, [facility] [address] [place] [facility] [address] July, [facility] [address] [place] [facility] [address] Jun, [facility] [address] [place] [facility] [address] May, [facility] [address] [place] [facility] [address] Mar, [facility] [address] [place] [facility] [address] Feb, [facility] [address] [place] [facility] [address] Nov, [facility] [address] [place] [facility] [address] Oct, [facility] [address] [place] [facility] [address] Aug, [facility] [address] [place] [facility] [address] May, [facility] [address] [place] [facility] [address] Mar, IMMUNIZATIONS No Known Immunizations SOCIAL HISTORY Never Assessed REASON FOR VISIT Re: RE:Re: RE:Re: RE:Re: RE:Re: RE:Re: RE:Re: RE:Re: RE:Re: RE:Re: RE:Re: RE:Re : RE:RE:RE:Fatigue PLAN OF CARE VITAL SIGNS MEDICATIONS Medication Instructions Dosage Frequency Start Date End Date Duration Status Hydrochlorothiazide 25 MG Orally Once a day 1 tablet in the morning 24h July, 30 day(s) Active Zofran 4 MG Orally every 6 hours prn TAKE ONE TABLET BY MOUTH EVERY 8 HOURS FOR 10 DAYS 30 days Active Diflucan 150 Orally Once a day 1 tablet 24h 5 Active Ventolin HFA 108 (90 Base) MCG/ACT Inhalation every 4 hrs 2 puffs as needed 4h Oct, 30 days Active Xanax 1 MG Orally once daily at bedtime 1 tablet as needed Sep, 30 days Active ProAir HFA 108 (90 Base) MCG/ACT Inhalation every 4 hrs 2 puffs as needed 4h Sep, 30 days Active Hydrocodone-Acetaminophen 10-325 MG Orally once a day 1 tablet as needed 24h Oct, July, 30 days Active Marinol 10 MG Orally three times a day 1 capsule before lunch and supper 8h Jun, 30 days Active Methocarbamol 750 TAKE ONE TABLET BY MOUTH EVERY 8 HOURS FOR 10 DAYS 10 Active Zithromax Z-Riky 250 MG Orally Once a day 1 tablet daily 24h May, Active Levaquin 500 MG Orally Once a day 1 tablet 24h Jun, 7 days Active [facility] Omeprazole 20 MG Orally Once a day 1 tablet 24h Mar, 30 day (s) Active Promethazine HCl 25 MG Orally three times a day 1 tablet as needed 8h Mar, 30 day(s) Active Dicyclomine HCl 20 MG Orally three times a day 1 tablet 8h July, 30 day(s) Active Stribild [phone] MG Orally Once a day 1 tablet 24h Aug, 30 days Active Tramadol HCl 50 MG Orally every 8hrs 1 tablet as needed Sep, 30 days Active Dapsone 100 MG Orally Once a day 1 tablet 24h Apr, 30 days Active Omeprazole 40 MG Orally Once a day 1 capsule 24h July, 30 day(s ) Active RESULTS No Results PROCEDURES No Known [...]
--- OUTSIDE RECORDS SUMMARY | 2018-03-22 14:10 | XMS REPORT ---
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 Role Phone Dulce Olvera Unavailable PROBLEMS Type Condition ICD9-CM Code [id number] Code Onset Dates Condition Status SNOMED Code Problem Bipolar affective disorder F31.9 Active 77432364 Problem Nicotine dependence, cigarettes, uncomplicated F17.210 Active 62753171 Problem snf (current) use of opiate analgesic Z79.891 Active 199577653 Problem Non-intractable cyclical vomiting with nausea G43.A0 Active 69476382 Problem Poor appetite R63.0 Active 63653051 Problem Wheezing on auscultation R06.2 Active 295311176 Problem Acquired immune deficiency syndrome B20 Active 61530838 Problem Other chronic pain G89.29 Active 84189089 Problem Mood swings F39 Active 15325505 Problem Generalized anxiety disorder F41.1 Active 64580073 Problem GERD (gastroesophageal reflux disease) K21.9 Active 458375540 Problem Mixed hyperlipidemia E78.2 Active 566750836 Problem Intrinsic asthma J45.909 Active 633320648 Problem Migraine G43.909 Active 93650123 Problem Backache M54.9 Active [id number] ALLERGIES No Information ENCOUNTERS Encounter Location Date Diagnosis [facility] [address] [place], [place] [id number] Sep, [facility] [address] [place] [address] July, [facility] [address] [place] [address] July, [facility] [address] [place] [address] July, [facility] [address] [place] [address] July, Poor appetite R63.0 and Backache M54.9 [facility] [address] [facility] [place] [place] [address] July, [facility] [address] [facility] [place] [place] [place] [address] July, [facility] [address] [facility] [place] [place] [address] July, [facility] [address] [facility] [place] [place] [place] [address] July, [facility] [address] [facility] [place] [place] [place] [address] July, [facility] [address] [facility] [place] [place] [address] July, Nausea and vomiting R11.2 [facility] [address] [facility] [place] [place] [address] July, [facility] [address] [facility] [place] [place] [address] July, [facility] [address] [facility] [place] [place] [place] [address] July, [facility] [address] [facility] [place] [place] [address] July, [facility] [address] [facility] [place] [place] [address] July, [facility] [address] [facility] [place] [place] [address] July, Other chronic pain G89.29 [facility] [address] [facility] [place] [place] [address] July, [facility] [address] [facility] [place] [place] [place] [address] July, GERD (gastroesophageal reflux disease) K21.9 [facility] [address] [facility] [place] [place] [address] July, [facility] [address] [facility] [place] [place] [address] Jun, [facility] [address] [facility] [place] [place] [address] Jun, [facility] [address] [facility] [place] [place] [address] Jun, [facility] [address] [place] [address] Jun, [facility] [address] [place] [address] Jun, Other chronic pain G89.29 [facility] [address] [place] [address] Jun, [facility] [address] [place] [address] Jun, [facility] [address] [place] [address] Jun, [facility] [address] [place] [address] Jun, [facility] [address] [place] [address] Jun, [facility] [address] [place] [address] Jun, Generalized anxiety disorder F41.1 ; Other chronic pain G89.29 and Non-intractable cyclical vomiting with nausea G43.A0 [facility] [address] [place], [place] [id number] Jun, Acquired immune deficiency syndrome B20 ; 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6 [facility] [address] [place] [address] Apr, Acute URI J06.9 [facility] [address] [place] [address] Apr, [facility] [address] [place] [address] Apr, [facility] [address] [place], [place] [id number] Apr, Acquired immune deficiency syndrome B20 ; 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 and Migraine G43.909 [facility] [address] [place] [address] Mar, Dysmenorrhea N94.[address] [address] Mar, [facility] [address] [place] [address] Mar, Generalized anxiety disorder F41.1 and Generalized abdominal pain R10.84 [facility] [address] [place] [address] Mar, [facility] [address] [place] [address] Mar, Generalized abdominal pain R10.84 and Generalized anxiety disorder F41.[address] [address] Feb, [facility] [address] [place] [address] Feb, Generalized abdominal pain R10.84 [facility] [address] [place] [address] Jan, Nausea and vomiting R11.2 [facility] [address] [place] [address] Jan, [facility] [address] [place] [address] Jan, [facility] [address] [place] [address] Jan, [facility] [address] [place] [address] 15 Jan, 2017 [facility] [address] [place] [address] 14 Jan, 2017 [facility] [address] [place] [address] Jan, Mood swings F39 [facility] [address] [place] [address] Jan, [facility] [address] [place] [address] Jan, [facility] [address] [place] [address] Jan, [facility] [address] [place] [address] Jan, Dysmenorrhea N94.6 [facility] [address] [place] [id number] Jan, Acquired immune deficiency syndrome B20 ; Generalized abdominal pain R10.84 and Refused influenza vaccine Z28.21 [facility] [address] [place] [address] Jan, [facility] [address] [place] [address] Dec, Generalized abdominal pain R10.84 [facility] [address] [address] Dec, Dysmenorrhea N94.6 [facility] [address] [address] Dec, Backache M54.9 [facility] [address] [place] [address] Nov, Generalized abdominal pain R10.84 [facility] [address] [place] [address] Nov, Generalized anxiety disorder F41.1 [facility] [address] [place] [address] 08 Nov, 2016 Dysmenorrhea N94.6 [facility] [address] [address] Oct, [facility] [address] [place] [address] Oct, [facility] [address] [place] [address] Oct, [facility] [address] [place] [address] Oct, Generalized abdominal pain R10.84 [facility] [address] [place], [place] [id number] Oct, Acquired immune deficiency syndrome B20 ; snf 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 Z79.891 ; Bipolar affective disorder F31.9 ; Generalized anxiety disorder F41.1 ; Backache M54.9 ; Mixed hyperlipidemia E78.2 ; Nicotine dependence, cigarettes, uncomplicated F17.210 and Wheezing on auscultation R06.[address] [address] Oct, Oral candidiasis B37.[address] [address] Oct, [facility] [address] [place] [address] Oct, Acute upper respiratory infection J06.[address] [address] Oct, Acute upper respiratory infection J06.[address] [address] Sep, Dysmenorrhea N94.[address] [address] Sep, Generalized anxiety disorder F41.[address] [address] Sep, Dysmenorrhea N94.6 [facility] [address] [place] [address] Sep, [facility] [address] [address] Sep, Dysmenorrhea N94.[address] [address] Aug, Acquired immune deficiency syndrome B20 [facility] [address] [place] [address] Aug, Generalized anxiety disorder F41.1 [facility] [address] [place] [address] Aug, [facility] [address] [facility] [place] [place] [address] Aug, [facility] [address] [facility] [place] [place] [address] Aug, [facility] [address] [facility] [place] [place] [place] [address] Aug, [facility] [address] [place] [address] Aug, [facility] [address] [place] [address] Aug, [facility] [address] [place] [address] Aug, [facility] [address] [place] [address] Aug, Acute opioid withdrawal F11.23 [facility] [address] [place] [address] July, Upper respiratory infection J06.9 [facility] [address] [place] [address] July, Backache M54.9 [facility] [address] [place] [id number] July, Acquired immune deficiency syndrome B20 ; 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 ; Hyperglycemia R73.9 ; Bipolar affective disorder F31.9 ; GERD (gastroesophageal reflux disease) K21.9 ; Backache M54.9 ; Generalized anxiety disorder F41.1 ; Mixed hyperlipidemia E78.2 ; Nicotine dependence, cigarettes, uncomplicated F17.210 and Localized edema R60.0 [facility] [address] [place] [address] July, [facility] [address] [place] [address] Jun, Backache M54.9 [facility] [address] [place] [address] Jun, Chronic pain G89.[address] [address] May, Backache M54.[address] [address] May, Backache M54.[address] [address] Apr, Cough R05 [facility] [address] [facility] [place] [id number] Apr, Acquired immune deficiency syndrome B20 ; Screening examination for sexually transmitted disease Z11.3 ; Dermatitis L30.9 and Migraine with aura and with status migrainosus, not intractable G43.[address] [address] Apr, Backache M54.[address] [address] Mar, Intrinsic asthma J45.909 ; Nausea and vomiting R11.2 and AIDS B20 [address] [address] Mar, Backache M54.[address] [address] Feb, Chronic pain G89.[address] [address] Feb, Backache M54.[address] [address] Jan, Weed eye, 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 [address] Jan, Asthma, intrinsic 493.[address] [address] Jan, [address] [address] Jan, [address] [place] [address] Jan, Backache M54.9 [facility] [address] [place] [address] 30 Dec, 2015 Chronic pain G89.29 [facility] [address] [facility] [place] [id number] Dec, AIDS B20 ; Influenza vaccine needed Z23 ; Intrinsic asthma J45.909 ; Backache M54.9 ; Generalized anxiety disorder F41.1 ; Nicotine dependence, cigarettes, uncomplicated F17.210 and Mixed hyperlipidemia E78.2 [facility] [address] [place] [address] Dec, [address] [address] Dec, Dysmenorrhea N94.[address] [address] Dec, [facility] [address] [place] [address] 17 Dec, 2015 Depression with anxiety F41.8 and Backache M54.9 [facility] [address] [place] [address] 19 Nov, 2015 [facility] [address] [place] [address] 19 Nov, 2015 Other chronic pain G89.29 [facility] [address] [place] [address] 18 Nov, 2015 Other chronic pain G89.29 [facility] [address] [place] [address] 18 Nov, 2015 [facility] [address] [place] [address] 14 Nov, 2015 Generalized anxiety disorder F41.1 [facility] [address] [place] [address] 06 Nov, 2015 [facility] [address] [place] [address] 06 Nov, 2015 [facility] [address] [place] [address] 04 Nov, 2015 Chronic pain G89.29 [facility] [address] [place] [address] Oct, [facility] [address] [place] [address] Oct, Other chronic pain G89.29 [facility] [address] [place] [address] Oct, [facility] [address] [place] [address] Oct, [facility] [address] [place] [address] Oct, Nausea and vomiting R11.2 [facility] [address] [place] [address] Oct, Chronic pain G89.29 [facility] [address] [place] [address] Sep, [facility] [address] [place] [address] Sep, Acute upper respiratory infection, unspecified J06.9 [facility] [address] [place] [address] Sep, Upper respiratory infection J06.9 [facility] [address] [place] [address] Sep, [facility] [address] [place] [address] Sep, [facility] [address] [place] [address] Sep, Other chronic pain G89.29 [facility] [address] [facility] [place] [id number] Sep, AIDS B20 ; 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 [place] [address] Aug, [facility] [address] [facility] [place] [place] [address] Aug, Other chronic pain G89.29 [facility] [address] [facility] [place] [place] [address] Aug, Generalized anxiety disorder F41.1 [facility] [address] [facility] [place] [place] [address] July, Other chronic pain G89.29 [facility] [address] [facility] [place] [place] [address] July, Other chronic pain G89.29 [facility] [address] [facility] [place] [place] [address] July, [facility] [address] [facility] [place] [address] Jun, Generalized anxiety disorder F41.1 [facility] [address] [facility] [place] [place] [address] Jun, [facility] [address] [facility] [place] [address] Jun, Other chronic pain G89.29 [facility] [address] [facility] [place] [place] [address] Jun, Rash and other nonspecific skin eruption R21 [facility] [address] [facility] [place] [place] [address] Jun, [facility] [address] [facility] [place] [place] [address] Jun, [facility] [address] [facility] [place] [place] [address] Jun, [facility] [address] [facility] [place] [place] [address] Jun, [facility] [address] [facility] [place] [place] [address] Jun, [facility] [address] [facility] [place] [place] [address] Jun, [facility] [address] [facility] [place] [place] [address] Jun, [facility] [address] [facility] [place] [address] Jun, Other chronic pain G89.29 [facility] [address] [facility] [place] [place] [address] Jun, [facility] [address] [facility] [place] [place] [address] Jun, [facility] [address] [facility] [place] [place] [address] Jun, [facility] [address] [facility] [place] [place] [address] Jun, [facility] [address] [facility] [place] [address] Jun, [facility] [address] [facility] [place] [address] Jun, [facility] [address] [facility] [place] [address] Jun, [facility] [address] [facility] [place] [place] [address] Jun, [facility] [address] [facility] [place] [place] [address] Jun, [facility] [address] [facility] [place] [address] Jun, Nausea and vomiting R11.2 [facility] [address] [facility] [place] [place] [address] May, [facility] [address] [facility] [place] [place] [address] May, Rash and other nonspecific skin eruption R21 [facility] [address] [facility] [place] [place] [address] May, [facility] [address] [facility] [place] [place] [address] May, [facility] [address] [facility] [place] [place] [address] May, [facility] [address] [facility] [place] [place] [address] May, [facility] [address] [place] [address] May, [facility] [address] [facility] [place] [id number] May, Acquired immune deficiency syndrome B20 ; Screening examination for sexually transmitted disease Z11.3 ; Depression with anxiety F41.8 ; Other chronic pain G89.29 and Dermatitis L30.9 [facility] [address] [place] [address] May, [facility] [address] [place] [address] May, [facility] [address] [place] [address] May, [facility] [address] [place] [address] May, Backache M54.9 [facility] [address] [place] [address] May, Rash and other nonspecific skin eruption R21 [facility] [address] [place] [address] Apr, [facility] [address] [place] [address] Apr, [facility] [address] [place] [address] Apr, Other chronic pain G89.29 [facility] [address] [place] [address] Apr, [facility] [address] [place] [address] Apr, [facility] [address] [place] [address] Apr, [facility] [address] [place] [address] Apr, [facility] [address] [place] [address] Apr, [facility] [address] [place] [address] Apr, [facility] [address] [place] [address] Apr, [facility] [address] [place] [address] Apr, [facility] [address] [place] [address] Apr, [facility] [address] [place] [address] Apr, [facility] [address] [place] [address] Apr, Other chronic pain G89.29 ; Generalized anxiety disorder F41.1 ; Nausea R11.0 and AIDS B20 [facility] [address] [place] [address] Apr, [facility] [address] [place] [address] Apr, Generalized anxiety disorder F41.1 [facility] [address] [place] [address] Apr, [facility] [address] [place] [address] Apr, Other chronic pain G89.[address] [address] Mar, [facility] [address] [place] [id number] Mar, 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 ; Bipolar affective disorder F31.9 ; Smoking F17.200 ; Generalized anxiety disorder F41.1 ; Influenza vaccine administered Z23 and AIDS B20 [facility] [address] [place] [address] Mar, Other chronic pain G89.29 [facility] [address] [place] [address] Mar, Generalized anxiety disorder F41.1 [facility] [address] [place] [address] Mar, [facility] [address] [place] [address] Mar, Asymptomatic HIV infection Z21 [facility] [address] [place] [address] Mar, Other chronic pain G89.29 [facility] [address] [place] [address] Feb, [facility] [address] [place] [address] Feb, [facility] [address] [place] [address] Feb, [facility] [address] [place] [address] Feb, [facility] [address] [place] [address] Feb, [facility] [address] [place] [address] Jan, Other chronic pain G89.29 and Nausea & vomiting R11.2 [facility] [address] [place] [address] Jan, Other chronic pain G89.29 [facility] [address] [place] [address] Dec, [facility] [address] [place] [address] Dec, Other chronic pain G89.29 ; Asymptomatic HIV infection Z21 ; Intrinsic asthma J45.909 ; Bipolar affective disorder F31.9 ; Noncompliance Z91.19 ; Migraine G43.909 ; Tobacco use disorder Z72.0 ; GERD (gastroesophageal reflux disease) K21.9 ; Backache M54.9 and Generalized anxiety disorder F41.1 [facility] [address] [place] [address] Nov, [facility] [address] [place] [address] Nov, [facility] [address] [place] [address] Oct, Other chronic pain 338.29 [facility] [address] [place] [address] Oct, [facility] [address] [place] [address] Oct, Unspecified backache 724.5 and Dysphagia 787.20 [facility] [address] [place] [address] Sep, Other chronic pain 338.29 [facility] [address] [place] [address] Sep, [facility] [address] [place] [address] Aug, URI (upper respiratory infection) 465.9 and Diarrhea 787.[address] [address] Aug, [address] [address] Aug, Other chronic pain 338.[address] [address] Aug, Other chronic pain 338.29 and Generalized anxiety disorder 300.[address] [address] Aug, [facility] [address] [place] [address] July, Other chronic pain 338.29 [facility] [address] [place], [place] [id number] July, Nondependent tobacco use disorder 305.1 ; Unspecified backache 724.5 ; Other chronic pain 338.29 ; Abdominal pain, unspecified site 789.00 ; snf (current) use of opiate analgesic V58.69 and Acquired immune deficiency syndrome 042 [facility] [address] [place] [address] July, Other chronic pain 338.[address] [address] Jun, Other chronic pain 338.29 [facility] [place] [address] [place] [address] Jun, [facility] [address] [place] [address] Jun, Other chronic pain 338.29 [facility] [address] [place] [address] Jun, URI (upper respiratory infection) 465.[address] [address] Jun, Generalized anxiety disorder 300.02 and Seasonal allergies 477.[address] [address] Jun, Generalized anxiety disorder 300.02 [facility] [address] [place] [address] May, Other chronic pain 338.[address] [address] May, Other chronic pain 338.29 and Generalized anxiety disorder 300.[address] [address] 16 Apr, 2014 Asthma, intrinsic 493.10 and Acute upper respiratory infections of other multiple sites 465.[address] [address] Apr, [facility] [address] [facility] [address] [place] [id number] Apr, Depressive disorder [address] [address] Apr, Other chronic pain 338.[address] [address] Apr, [address] [address] Apr, Other chronic pain 338.[address] [address] Mar, Acute upper respiratory infections of unspecified site 465.[address] [id number] Mar, Migraine 346.90 ; Nondependent tobacco use disorder 305.1 ; Esophageal reflux 530.81 ; Unspecified backache 724.5 ; Abdominal pain, generalized 789.07 ; Flatulence, eructation, and gas pain 787.3 ; Asymptomatic human immunodeficiency virus (HIV) infection status V08 ; Dyspepsia and other specified disorders of function of stomach 536.8 ; Nausea alone 787.02 and Asthma 493.[address] [address] Mar, Other chronic pain 338.[address] [address] Feb, Other chronic pain 338.29 and Generalized anxiety disorder 300.[address] [address] Feb, Abdominal pain, generalized 789.[address] [address] Jan, Abdominal pain, generalized 789.[address] [id number] Dec, [address] [address] Dec, [address] [address] Dec, Unspecified backache 724.[address] [address] Dec, [address] [address] Nov, [facility] [address] [id number] Nov, [facility] [address] [facility] [place] [id number] Nov, Bipolar disorder, unspecified 296.80 ; Abdominal pain, generalized 789.07 ; Generalized anxiety disorder 300.02 ; Nausea alone 787.02 ; Flu vaccine need V04.81 and Human immunodeficiency virus (HIV) disease [address] [address] Nov, [facility] [address] [place] [id number] Oct, [facility] [address] [id number] Oct, [facility] [place] [facility] [address] [facility] [address] [place], [place] [id number] Aug, [facility] [address] [facility] [place] [place] [address] Jun, [facility] [address] [facility] [place] [place] [place] [address] Mar, [facility] [address] [facility] [place] [address] Oct, [facility] [address] [facility] [place] [place] [address] July, [facility] [address] [facility] [place] [place] [address] Jun, [facility] [address] [facility] [place] [place] [place] [address] May, [facility] [address] [facility] [place] [place] [place] [address] Mar, [facility] [address] [facility] [place] [place] [place] [address] Feb, [facility] [address] [facility] [place] [address] Nov, [facility] [address] [facility] [place] [address] Oct, [facility] [address] [facility] [place] [address] Aug, [facility] [address] [facility] [place] [place] [place] [address] May, [facility] [address] [facility] [place] [address] Mar, IMMUNIZATIONS No Known Immunizations SOCIAL HISTORY [...]
--- OUTSIDE RECORDS SUMMARY | 2018-03-22 14:11 | XMS REPORT ---
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 Operator Name Role Phone Dulce Olvera Unavailable PROBLEMS Type Condition ICD9-CM Code [id number] Code Onset Dates Condition Status SNOMED Code Problem Bipolar affective disorder F31.9 Active 12232516 Problem Nicotine dependence, cigarettes, uncomplicated F17.210 Active 21766747 Problem senior living (current) use of opiate analgesic Z79.891 Active 481702906 Problem Non-intractable cyclical vomiting with nausea G43.A0 Active 56523652 Problem Poor appetite R63.0 Active 27948504 Problem Wheezing on auscultation R06.2 Active 354577848 Problem Acquired immune deficiency syndrome B20 Active 97059348 Problem Other chronic pain G89.29 Active 69156328 Problem Mood swings F39 Active 20174130 Problem Generalized anxiety disorder F41.1 Active 16054112 Problem GERD (gastroesophageal reflux disease) K21.9 Active 412724659 Problem Mixed hyperlipidemia E78.2 Active 160226288 Problem Intrinsic asthma J45.909 Active 740947417 Problem Migraine G43.909 Active 48328863 Problem Backache M54.9 Active 425262365 ALLERGIES No Information ENCOUNTERS Encounter Location Date Diagnosis [facility] [address] [place] [id number] Sep, [facility] [address] [place] [address] July, [facility] [address] [place] [address] July, [facility] [address] [place] [address] July, [facility] [address] [place] [address] July, Poor appetite R63.0 and Backache M54.9 [facility] [address] [place] [facility] [place] [address] July, [facility] [address] [place] [facility] [place] [address] July, [facility] [address] [place] [facility] [place] [address] July, [facility] [address] [place] [facility] [place] [address] July, [facility] [address] [place] [facility] [place] [address] July, [facility] [address] [place] [facility] [place] [address] July, Nausea and vomiting R11.2 [facility] [address] [place] [facility] [place] [address] July, [facility] [address] [place] [facility] [place] [address] July, [facility] [address] [place] [facility] [place] [address] July, [facility] [address] [place] [facility] [place] [address] July, [facility] [address] [place] [address] July, [facility] [address] [place] [facility] [place] [address] July, Other chronic pain G89.29 [facility] [address] [place] [facility] [place] [address] July, [facility] [address] [place] [facility] [place] [address] July, GERD (gastroesophageal reflux disease) K21.9 [facility] [address] [place] [facility] [place] [address] July, [facility] [address] [place] [facility] [place] [address] Jun, [facility] [address] [place] [facility] [place] [address] Jun, [facility] [address] [place] [facility] [place] [address] Jun, [facility] [address] [place] [address] Jun, [facility] [address] [place] [address] Jun, Other chronic pain G89.29 [facility] [address] [place] [address] Jun, [facility] [address] [place] [address] Jun, [facility] [address] [place] [address] Jun, [facility] [address] [place] [address] Jun, [facility] [address] [place] [address] Jun, 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 [address] [place] [address] Jun, [facility] [address] [place] [address] May, Generalized abdominal pain R10.84 [facility] [address] [place] [address] May, [facility] [address] [place] [address] Apr, AIDS B20 ; Generalized abdominal pain R10.84 and Dysmenorrhea N94.6 [facility] [address] [place] [address] Apr, Acute URI J06.9 [facility] [address] [place] [address] Apr, [facility] [address] [place] [address] Apr, [facility] [address] [place] [id number] Apr, Acquired immune deficiency syndrome B20 ; intermediate designer ( current) use of opiate analgesic Z79.891 and Migraine G43.909 [facility] [address] [place] [address] Mar, Dysmenorrhea N94.[address] [address] Mar, [facility] [address] [place] [address] Mar, Generalized anxiety disorder F41.1 and Generalized abdominal pain R10.84 [facility] [address] [place] [address] Mar, [facility] [address] [place] [address] Mar, Generalized abdominal pain R10.84 and Generalized anxiety disorder F41.[address] [address] Feb, [facility] [address] [place] [address] Feb, Generalized abdominal pain R10.84 [facility] [address] [place] [address] Jan, Nausea and vomiting R11.2 [facility] [address] [place] [address] Jan, [facility] [address] [place] [address] Jan, [facility] [address] [place] [address] Jan, [facility] [address] [place] [address] 15 Jan, 2017 [facility] [address] [place] [address] 14 Jan, 2017 [facility] [address] [place] [address] Jan, Mood swings F39 [facility] [address] [place] [address] Jan, [facility] [address] [place] [address] Jan, [facility] [address] [place] [address] Jan, [facility] [address] [place] [address] Jan, Dysmenorrhea N94.6 [facility] [address] [place] [phone] Jan, Acquired immune deficiency syndrome B20 ; Generalized abdominal pain R10.84 and Refused influenza vaccine Z28.21 [facility] [address] [place] [address] Jan, [facility] [address] [place] [address] Dec, Generalized abdominal pain R10.84 [facility] [address] [address] Dec, Dysmenorrhea N94.6 [facility] [address] [address] Dec, Backache M54.9 [facility] [address] [place] [address] Nov, Generalized abdominal pain R10.84 [facility] [address] [place] [address] Nov, Generalized anxiety disorder F41.1 [facility] [address] [place] [address] 08 Nov, 2016 Dysmenorrhea N94.6 [facility] [address] [address] Oct, [facility] [address] [place] [address] Oct, [facility] [address] [place] [address] Oct, [facility] [address] [place] [address] Oct, Generalized abdominal pain R10.84 [facility] [address] [place] [id number] Oct, Acquired immune deficiency syndrome B20 ; senior living 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 Z79.891 ; Bipolar affective disorder F31.9 ; Generalized anxiety disorder F41.1 ; Backache M54.9 ; Mixed hyperlipidemia E78.2 ; Nicotine dependence, cigarettes, uncomplicated F17.210 and Wheezing on auscultation R06.[address] [address] Oct, Oral candidiasis B37.[address] [address] Oct, [facility] [address] [place] [address] Oct, Acute upper respiratory infection J06.[address] [address] Oct, Acute upper respiratory infection J06.[address] [address] Sep, Dysmenorrhea N94.[address] [address] Sep, Generalized anxiety disorder F41.[address] [address] Sep, Dysmenorrhea N94.6 [facility] [address] [place] [address] Sep, [facility] [address] [address] Sep, Dysmenorrhea N94.[address] [address] Aug, Acquired immune deficiency syndrome B20 [facility] [address] [place] [address] Aug, Generalized anxiety disorder F41.1 [facility] [address] [place] [address] Aug, [facility] [address] [place] [facility] [place] [address] Aug, [facility] [address] [place] [facility] [place] [facility] [address] Aug, [facility] [address] [place] [facility] [place] [facility] [address] Aug, [facility] [address] [place] [address] Aug, [facility] [address] [place] [address] Aug, [facility] [address] [place] [address] Aug, [facility] [address] [place] [address] Aug, Acute opioid withdrawal F11.23 [facility] [address] [place] [address] July, Upper respiratory infection J06.9 [facility] [address] [place] [address] July, Backache M54.9 [facility] [address] [place] [phone] July, Acquired immune deficiency syndrome B20 ; intermediate designer 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 Z79.891 ; Hyperglycemia R73.9 ; Bipolar affective disorder F31.9 ; GERD (gastroesophageal reflux disease) K21.9 ; Backache M54.9 ; Generalized anxiety disorder F41.1 ; Mixed hyperlipidemia E78.2 ; Nicotine dependence, cigarettes, uncomplicated F17.210 and Localized edema R60.0 [facility] [address] [place] [address] July, [facility] [address] [place] [address] Jun, Backache M54.9 [facility] [address] [place] [address] Jun, Chronic pain G89.[address] [address] May, Backache M54.[address] [address] May, Backache M54.[address] [address] Apr, Cough R05 [facility] [address] [facility] [address] [place] [id number] Apr, Acquired immune deficiency syndrome B20 ; Screening examination for sexually transmitted disease Z11.3 ; Dermatitis L30.9 and Migraine with aura and with status migrainosus, not intractable G43.[address] [address] Apr, Backache M54.[address] [address] Mar, Intrinsic asthma J45.909 ; Nausea and vomiting R11.2 and AIDS B20 [address] [address] Mar, Backache M54.[address] [address] Feb, Chronic pain G89.[address] [address] Feb, Backache M54.[address] [address] Jan, [place] eye, 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 [address] Jan, Asthma, intrinsic 493.[address] [address] Jan, [address] [address] Jan, [address] [place] [address] Jan, Backache M54.9 [facility] [address] [place] [address] 30 Dec, 2015 Chronic pain G89.29 [facility] [address] [facility] [place] [id number] Dec, AIDS B20 ; Influenza vaccine needed Z23 ; Intrinsic asthma J45.909 ; Backache M54.9 ; Generalized anxiety disorder F41.1 ; Nicotine dependence, cigarettes, uncomplicated F17.210 and Mixed hyperlipidemia E78.2 [facility] [address] [place] [address] Dec, [address] [address] Dec, Dysmenorrhea N94.[address] [address] Dec, [facility] [address] [place] [address] 17 Dec, 2015 Depression with anxiety F41.8 and Backache M54.9 [facility] [address] [place] [address] 19 Nov, 2015 [facility] [address] [place] [address] 19 Nov, 2015 Other chronic pain G89.29 [facility] [address] [place] [address] 18 Nov, 2015 Other chronic pain G89.29 [facility] [address] [place] [address] 18 Nov, 2015 [facility] [address] [place] [address] 14 Nov, 2015 Generalized anxiety disorder F41.1 [facility] [address] [place] [address] 06 Nov, 2015 [facility] [address] [place] [address] 06 Nov, 2015 [facility] [address] [place] [address] 04 Nov, 2015 Chronic pain G89.29 [facility] [address] [place] [address] Oct, [facility] [address] [place] [address] Oct, Other chronic pain G89.29 [facility] [address] [place] [address] Oct, [facility] [address] [place] [address] Oct, [facility] [address] [place] [address] Oct, Nausea and vomiting R11.2 [facility] [address] [place] [address] Oct, Chronic pain G89.29 [facility] [address] [place] [address] Sep, [facility] [address] [place] [address] Sep, Acute upper respiratory infection, unspecified J06.9 [facility] [address] [place] [address] Sep, Upper respiratory infection J06.9 [facility] [address] [place] [address] Sep, [facility] [address] [place] [address] Sep, [facility] [address] [place] [address] Sep, Other chronic pain G89.29 [facility] [address] [facility] [address] [place] [id number] Sep, AIDS B20 ; intermediate designer (current) 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 opiate analgesic Z79.891 ; Smoking F17.200 ; Mixed hyperlipidemia E78.2 ; Chronic pain G89.29 and Edema R60.9 [facility] [address] [place] [address] Sep, [facility] [address] [place] [address] Sep, [facility] [address] [place] [facility] [place] [address] Aug, [facility] [address] [place] [facility] [place] [facility] [address] Aug, Other chronic pain G89.29 [facility] [address] [place] [facility] [place] [address] Aug, Generalized anxiety disorder F41.1 [facility] [address] [place] [facility] [place] [address] July, Other chronic pain G89.29 [facility] [address] [place] [facility] [place] [address] July, Other chronic pain G89.29 [facility] [address] [place] [facility] [place] [address] July, [facility] [address] [place] [facility] [place] [address] Jun, Generalized anxiety disorder F41.1 [facility] [address] [place] [facility] [place] [address] Jun, [facility] [address] [place] [facility] [place] [address] Jun, Other chronic pain G89.29 [facility] [address] [place] [facility] [place] [address] Jun, Rash and other nonspecific skin eruption R21 [facility] [address] [place] [facility] [place] [address] Jun, [facility] [address] [place] [facility] [place] [address] Jun, [facility] [address] [place] [facility] [place] [address] Jun, [facility] [address] [place] [facility] [place] [facility] [address] Jun, [facility] [address] [place] [facility] [place] [facility] [address] Jun, [facility] [address] [place] [facility] [place] [address] Jun, [facility] [address] [place] [facility] [place] [address] Jun, [facility] [address] [place] [facility] [place] [address] Jun, Other chronic pain G89.29 [facility] [address] [place] [facility] [place] [address] Jun, [facility] [address] [place] [facility] [place] [address] Jun, [facility] [address] [place] [facility] [place] [address] Jun, [facility] [address] [place] [facility] [place] [address] Jun, [facility] [address] [place] [facility] [place] [address] Jun, [facility] [address] [place] [facility] [place] [facility] [address] Jun, [facility] [address] [place] [facility] [place] [address] Jun, [facility] [address] [place] [facility] [place] [address] Jun, [facility] [address] [place] [facility] [place] [address] Jun, [facility] [address] [place] [facility] [place] [address] Jun, Nausea and vomiting R11.2 [facility] [address] [place] [facility] [place] [address] May, [facility] [address] [place] [facility] [place] [address] May, Rash and other nonspecific skin eruption R21 [facility] [address] [place] [facility] [place] [address] May, [facility] [address] [place] [facility] [place] [address] May, [facility] [address] [place] [facility] [place] [address] May, [facility] [address] [place] [facility] [place] [address] May, [facility] [address] [place] [address] May, [facility] [address] [facility] [address] [place] [id number] May, Acquired immune deficiency syndrome B20 ; Screening examination for sexually transmitted disease Z11.3 ; Depression with anxiety F41.8 ; Other chronic pain G89.29 and Dermatitis L30.9 [facility] [address] [place] [address] May, [facility] [address] [place] [address] May, [facility] [address] [place] [address] May, [facility] [address] [place] [address] May, Backache M54.9 [facility] [address] [place] [address] May, Rash and other nonspecific skin eruption R21 [facility] [address] [place] [address] Apr, [facility] [address] [place] [address] Apr, [facility] [address] [place] [address] Apr, Other chronic pain G89.29 [facility] [address] [place] [address] Apr, [facility] [address] [place] [address] Apr, [facility] [address] [place] [address] Apr, [facility] [address] [place] [address] Apr, [facility] [address] [place] [address] Apr, [facility] [address] [place] [address] Apr, [facility] [address] [place] [address] Apr, [facility] [address] [place] [address] Apr, [facility] [address] [place] [address] Apr, [facility] [address] [place] [address] Apr, [facility] [address] [place] [address] Apr, Other chronic pain G89.29 ; Generalized anxiety disorder F41.1 ; Nausea R11.0 and AIDS B20 [facility] [address] [place] [address] Apr, [facility] [address] [place] [address] Apr, Generalized anxiety disorder F41.1 [facility] [address] [place] [address] Apr, [facility] [address] [place] [address] Apr, Other chronic pain G89.[address] [address] Mar, [facility] [address] [place] [id number] Mar, intermediate designer (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 opiate analgesic Z79.891 ; Bipolar affective disorder F31.9 ; Smoking F17.200 ; Generalized anxiety disorder F41.1 ; Influenza vaccine administered Z23 and AIDS B20 [facility] [address] [place] [address] Mar, Other chronic pain G89.29 [facility] [address] [place] [address] Mar, Generalized anxiety disorder F41.1 [facility] [address] [place] [address] Mar, [facility] [address] [place] [address] Mar, Asymptomatic HIV infection Z21 [facility] [address] [place] [address] Mar, Other chronic pain G89.29 [facility] [address] [place] [address] Feb, [facility] [address] [place] [address] Feb, [facility] [address] [place] [address] Feb, [facility] [address] [place] [address] Feb, [facility] [address] [place] [address] Feb, [facility] [address] [place] [address] Jan, Other chronic pain G89.29 and Nausea & vomiting R11.2 [facility] [address] [place] [address] Jan, Other chronic pain G89.29 [facility] [address] [place] [address] Dec, [facility] [address] [place] [address] Dec, Other chronic pain G89.29 ; Asymptomatic HIV infection Z21 ; Intrinsic asthma J45.909 ; Bipolar affective disorder F31.9 ; Noncompliance Z91.19 ; Migraine G43.909 ; Tobacco use disorder Z72.0 ; GERD (gastroesophageal reflux disease) K21.9 ; Backache M54.9 and Generalized anxiety disorder F41.1 [facility] [address] [place] [address] Nov, [facility] [address] [place] [address] Nov, [facility] [address] [place] [address] Oct, Other chronic pain 338.29 [facility] [address] [place] [address] Oct, [facility] [address] [place] [address] Oct, Unspecified backache 724.5 and Dysphagia 787.20 [facility] [address] [place] [address] Sep, Other chronic pain 338.29 [facility] [address] [place] [address] Sep, [facility] [address] [place] [address] Aug, URI (upper respiratory infection) 465.9 and Diarrhea 787.[address] [address] Aug, [address] [address] Aug, Other chronic pain 338.[address] [address] Aug, Other chronic pain 338.29 and Generalized anxiety disorder 300.[address] [address] Aug, [facility] [address] [place] [address] July, Other chronic pain 338.29 [facility] [address] [place] [id number] July, Nondependent tobacco use disorder 305.1 ; Unspecified backache 724.5 ; Other chronic pain 338.29 ; Abdominal pain, unspecified site 789.00 ; senior living (current) use of opiate analgesic V58.69 and Acquired immune deficiency syndrome 042 [facility] [address] [place] [address] July, Other chronic pain 338.[address] [address] Jun, Other chronic pain 338.29 [facility] [address] [place] [address] [address] Jun, [facility] [address] [place] [address] Jun, Other chronic pain 338.29 [facility] [address] [place] [address] Jun, URI (upper respiratory infection) 465.[address] [address] Jun, Generalized anxiety disorder 300.02 and Seasonal allergies 477.[address] [address] Jun, Generalized anxiety disorder 300.02 [facility] [address] [place] [address] May, Other chronic pain 338.[address] [address] May, Other chronic pain 338.29 and Generalized anxiety disorder 300.[address] [address] 16 Apr, 2014 Asthma, intrinsic 493.10 and Acute upper respiratory infections of other multiple sites 465.[address] [address] Apr, [facility] [address] [facility] [address] [place] [id number] Apr, Depressive disorder [address] [address] Apr, Other chronic pain 338.[address] [address] Apr, [address] [address] Apr, Other chronic pain 338.[address] [address] Mar, Acute upper respiratory infections of unspecified site 465.[address] [id number] Mar, Migraine 346.90 ; Nondependent tobacco use disorder 305.1 ; Esophageal reflux 530.81 ; Unspecified backache 724.5 ; Abdominal pain, generalized 789.07 ; Flatulence, eructation, and gas pain 787.3 ; Asymptomatic human immunodeficiency virus (HIV) infection status V08 ; Dyspepsia and other specified disorders of function of stomach 536.8 ; Nausea alone 787.02 and Asthma 493.[address] [address] Mar, Other chronic pain 338.[address] [address] Feb, Other chronic pain 338.29 and Generalized anxiety disorder 300.[address] [address] Feb, Abdominal pain, generalized 789.[address] [address] Jan, Abdominal pain, generalized 789.[address] [id number] Dec, [address] [address] Dec, [address] [address] Dec, Unspecified backache 724.[address] [address] Dec, [address] [address] Nov, [facility] [address] [id number] Nov, [facility] [address] [facility] [place], [place] [id number] Nov, Bipolar disorder, unspecified 296.80 ; Abdominal pain, generalized 789.07 ; Generalized anxiety disorder 300.02 ; Nausea alone 787.02 ; Flu vaccine need V04.81 and Human immunodeficiency virus (HIV) disease [address] [address] Nov, [facility] [address] [place] [id number] Oct, [facility] [address] [id number] Oct, [facility] [place] [address] [facility] [address] [place] [id number] Aug, [facility] [address] [place] [facility] [address] Jun, [facility] [address] [place] [facility] [place] [address] Mar, [facility] [address] [place] [facility] [address] Oct, [facility] [address] [place] [facility] [address] July, [facility] [address] [place] [facility] [place] [facility] [address] Jun, [facility] [address] [place] [facility] [address] May, [facility] [address] [place] [facility] [address] Mar, [facility] [address] [place] [facility] [address] Feb, [facility] [address] [place] [facility] [address] Nov, [facility] [address] [place] [facility] [address] Oct, [facility] [address] [place] [facility] [address] Aug, [facility] [address] [place] [facility] [address] May, [facility] [address] [place] [facility] [address] Mar, IMMUNIZATIONS No Known Immunizations SOCIAL HISTORY Never Assessed REASON FOR VISIT Re: RE:Re: RE:Re: RE:Re: RE:Re: RE:Re: RE:Re: RE:Re: RE:Re: RE:Re: RE:Re: RE:RE: RE:Fatigue PLAN OF CARE VITAL SIGNS MEDICATIONS Unknown [...]
--- OUTSIDE RECORDS SUMMARY | 2018-03-22 14:15 | XMS REPORT ---
Author Author Dulce Herrera [facility] Address [address], [place] [id number] Care Team Providers Care Leather Roller Name Role Phone Dulce Herrera Unavailable PROBLEMS Type Condition ICD9-CM Code VOB10-YY Code Onset Dates Condition Status SNOMED Code Problem Bipolar affective disorder F31.9 Active 30855744 Problem Nicotine dependence, cigarettes, uncomplicated F17.210 Active 98282950 Problem longterm (current) use of opiate analgesic Z79.891 Active 238040314 Problem Non-intractable cyclical vomiting with nausea G43.A0 Active 17173307 Problem Poor appetite R63.0 Active 52552339 Problem Wheezing on auscultation R06.2 Active 395297758 Problem Acquired immune deficiency syndrome B20 Active 82020119 Problem Other chronic pain G89.29 Active 20896073 Problem Mood swings F39 Active 19278205 Problem Generalized anxiety disorder F41.1 Active 88109844 Problem GERD (gastroesophageal reflux disease) K21.9 Active 725897380 Problem Mixed hyperlipidemia E78.2 Active 643366909 Problem Intrinsic asthma J45.909 Active 097598200 Problem Migraine G43.909 Active 13907072 Problem Backache M54.9 Active 406227000 ALLERGIES No Information ENCOUNTERS Encounter Location Date Diagnosis [facility] [address] [facility] [address] [place] [id number] Sep, [facility] [address] [place] [address] Aug, [facility] [address] [place] [address] Aug, Backache M54.9 [facility] [address] [place] [address] Aug, [facility] [address] [place] [address] Aug, Spider bite T63.301A [facility] [address] [facility] [place] [place] [address] Aug, [facility] [address] [facility] [place] [place] [place] [address] Aug, [facility] [address] [facility] [place] [place] [address] Aug, [facility] [address] [facility] [place] [place] [address] July, [facility] [address] [facility] [place] [place] [address] July, [facility] [address] [facility] [place] [address] July, [facility] [address] [facility] [place] [place] [address] July, [facility] [address] [facility] [place] [address] July, [facility] [address] [facility] [place] [address] July, Poor appetite R63.0 and Backache M54.9 [facility] [address] [facility] [place] [place] [address] July, [facility] [address] [facility] [place] [address] July, [facility] [address] [facility] [place] [address] July, [facility] [address] [facility] [place] [place] [address] July, [facility] [address] [facility] [place] [address] July, [facility] [address] [facility] [place] [address] July, Nausea and vomiting R11.2 [facility] [address] [facility] [place] [place] [address] July, [facility] [address] [facility] [place] [address] July, [facility] [address] [facility] [place] [place] [address] July, [facility] [address] [facility] [place] [address] July, [facility] [address] [facility] [place] [address] July, [facility] [address] [facility] [place] [address] July, Other chronic pain G89.29 [facility] [address] [facility] [place] [address] July, [facility] [address] [facility] [place] [address] July, GERD (gastroesophageal reflux disease) K21.9 [facility] [address] [facility] [place] [place] [address] July, [facility] [address] [facility] [place] [address] Jun, [facility] [address] [facility] [place] [address] Jun, [facility] [address] [facility] [place] [address] Jun, [facility] [address] [facility] [place] [address] Jun, [facility] [address] [facility] [place] [address] Jun, Other chronic pain G89.29 [facility] [address] [facility] [place] [place] [address] Jun, [facility] [address] [facility] [place] [address] Jun, [facility] [address] [facility] [place] [address] Jun, [facility] [address] [facility] [place] [address] Jun, [facility] [address] [facility] [place] [address] Jun, [facility] [address] [facility] 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 ; Nicotine dependence, cigarettes, uncomplicated F17.210 ; Lower respiratory infection J22 ; Poor appetite R63.0 ; Other chronic pain G89.29 ; Generalized anxiety disorder F41.1 and Need for tetanus booster Z23 [address] [address] Jun, [address] [address] May, Generalized abdominal pain R10.[address] [address] May, [address] [address] Apr, AIDS B20 ; Generalized abdominal pain R10.84 and Dysmenorrhea N94.[address] [address] Apr, Acute URI J06.[address] [address] Apr, [address] [address] Apr, [address] [id number] Apr, Acquired immune deficiency syndrome B20 ; longterm ( current) use of opiate analgesic Z79.891 and Migraine G43.[address] [address] Mar, Dysmenorrhea N94.[address] [address] Mar, [address] [address] Mar, Generalized anxiety disorder F41.1 and Generalized abdominal pain R10.84 [address] [place] [address] Mar, [facility] [address] [place] [address] Mar, Generalized abdominal pain R10.84 and Generalized anxiety disorder F41.1 [facility] [address] [facility] [place] [address] Feb, [facility] [address] [place] [address] Feb, Generalized abdominal pain R10.84 [facility] [address] [place] [address] Jan, Nausea and vomiting R11.2 [facility] [address] [place] [address] Jan, [facility] [address] [place] [address] 16 Jan, 2017 [facility] [address] [place] [address] Jan, [facility] [address] [place] [address] Jan, [facility] [address] [place] [address] Jan, [facility] [address] [place] [address] 08 Jan, 2017 Mood swings F39 [facility] [address] [place] [address] Jan, [facility] [address] [place] [address] Jan, [facility] [address] [place] [address] Jan, [facility] [address] [place] [address] Jan, Dysmenorrhea N94.6 [facility] [address] [place] [id number] Jan, Acquired immune deficiency syndrome B20 ; Generalized abdominal pain R10.84 and Refused influenza vaccine Z28.21 [facility] [address] [place] [address] Jan, [facility] [address] [place] [address] Dec, Generalized abdominal pain R10.84 [facility] [address] [place] [address] Dec, Dysmenorrhea N94.[address] [address] Dec, Backache M54.[address] [address] Nov, Generalized abdominal pain R10.[address] [address] Nov, Generalized anxiety disorder F41.[address] [address] Nov, Dysmenorrhea N94.[address] [address] Oct, [address] [address] Oct, [address] [address] Oct, [address] [address] Oct, Generalized abdominal pain R10.84 [facility] [address] [place] [id number] Oct, Acquired immune deficiency syndrome B20 ; 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 [place] [address] Oct, Acute upper respiratory infection J06.9 [facility] [address] [facility] [place] [address] Sep, Dysmenorrhea N94.6 [facility] [address] [facility] [place] [address] Sep, Generalized anxiety disorder F41.1 [facility] [address] [facility] [place] [address] Sep, Dysmenorrhea N94.6 [facility] [address] [facility] [place] [address] Sep, [facility] [address] [facility] [place] [address] Sep, Dysmenorrhea N94.6 [facility] [address] [facility] [place] [address] Aug, Acquired immune deficiency syndrome B20 [facility] [address] [facility] [place] [address] Aug, Generalized anxiety disorder F41.1 [facility] [address] [facility] [place] [address] Aug, [facility] [address] [facility] [place] [address] Aug, [facility] [address] [facility] [place] [address] Aug, [facility] [address] [facility] [place] [address] Aug, [facility] [address] [facility] [place] [address] Aug, [facility] [address] [facility] [place] [address] Aug, [facility] [address] [facility] [place] [address] Aug, [facility] [address] 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 ; Hyperglycemia R73.9 ; Bipolar affective disorder F31.9 ; GERD (gastroesophageal reflux disease) K21.9 ; Backache M54.9 ; Generalized anxiety disorder F41.1 ; Mixed hyperlipidemia E78.2 ; Nicotine dependence, cigarettes, uncomplicated F17.210 and Localized edema R60.[address] [address] July, [address] [address] Jun, Backache M54.[address] [address] Jun, Chronic pain G89.[address] [address] May, Backache M54.[address] [address] May, Backache M54.[address] [address] Apr, Cough R05 [address] [id number] Apr, Acquired immune deficiency syndrome B20 ; Screening examination for sexually transmitted disease Z11.3 ; Dermatitis L30.9 and Migraine with aura and with status migrainosus, not intractable G43.[address] [address] Apr, Backache M54.[address] [address] Mar, Intrinsic asthma J45.909 ; Nausea and vomiting R11.2 and AIDS B20 [address] [address] Mar, Backache M54.[address] [address] Feb, Chronic pain G89.[address] [address] Feb, Backache M54.[address] [address] Jan, [place] eye, 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 [address] Jan, Asthma, intrinsic 493.[address] [address] Jan, [address] [address] Jan, [address] [address] Jan, Backache M54.[address] [address] Dec, Chronic pain G89.29 [facility] [address] [place], [place] [id number] Dec, AIDS B20 ; Influenza vaccine needed Z23 ; Intrinsic asthma J45.909 ; Backache M54.9 ; Generalized anxiety disorder F41.1 ; Nicotine dependence, cigarettes, uncomplicated F17.210 and Mixed hyperlipidemia E78.[address] [address] Dec, [address] [address] Dec, Dysmenorrhea N94.[address] [address] Dec, [address] [address] Dec, Depression with anxiety F41.[address] [facility] [address] [facility] [place] [address] Nov, [facility] [address] [facility] [place] [address] Nov, Other chronic pain G89.29 [facility] [address] [facility] [place] [place] [place] [address] Nov, Other chronic pain G89.29 [facility] [address] [facility] [place] [place] [place] [address] 18 Nov, 2015 [facility] [address] [facility] [place] [place] [address] 14 Nov, 2015 Generalized anxiety disorder F41.1 [facility] [address] [facility] [place] [place] [place] [address] Nov, [facility] [address] [place] [address] Nov, [facility] [address] [facility] [place] [address] Nov, Chronic pain G89.29 [facility] [address] [facility] [place] [place] [address] Oct, [facility] [address] [facility] [place] [address] Oct, Other chronic pain G89.29 [facility] [address] [facility] [place] [place] [place] [address] Oct, [facility] [address] [place] [address] Oct, [facility] [address] [place] [address] Oct, Nausea and vomiting R11.2 [facility] [address] [facility] [place] [address] Oct, Chronic pain G89.29 [facility] [address] [facility] [place] [address] Sep, [facility] [address] [facility] 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 ; Smoking F17.200 ; Mixed hyperlipidemia E78.2 ; Chronic pain G89.29 and Edema R60.9 [facility] [address] [place] [address] Sep, [facility] [address] [place] [address] Sep, [facility] [address] [place] [address] Aug, [facility] [address] [place] [address] Aug, Other chronic pain G89.29 [facility] [address] [place] [address] Aug, Generalized anxiety disorder F41.1 [facility] [address] [place] [address] July, Other chronic pain G89.29 [facility] [address] [place] [address] July, Other chronic pain G89.29 [facility] [address] [place] [address] July, [facility] [address] [place] [address] Jun, Generalized anxiety disorder F41.1 [facility] [address] [place] [address] Jun, [facility] [address] [facility] [place] [place] [address] Jun, Other chronic pain G89.29 [facility] [address] [facility] [place] [address] Jun, Rash and other nonspecific skin eruption R21 [facility] [address] [facility] [place] [address] Jun, [facility] [address] [facility] [place] [address] Jun, [facility] [address] [facility] [place] [address] Jun, [facility] [address] [facility] [place] [address] Jun, [facility] [address] [facility] [place] [place] [address] Jun, [facility] [address] [facility] [place] [address] Jun, [facility] [address] [facility] [place] [address] Jun, [facility] [address] [facility] [place] [address] Jun, Other chronic pain G89.29 [facility] [address] [facility] [place] [place] [address] Jun, [facility] [address] [facility] [place] [address] Jun, [facility] [address] [facility] [place] [address] Jun, [facility] [address] [facility] [place] [address] Jun, [facility] [address] [facility] [place] [address] Jun, [facility] [address] [facility] [place] [address] Jun, [facility] [address] [facility] [place] [address] Jun, [facility] [address] [place] [address] Jun, [facility] [address] [place] [address] Jun, [facility] [address] [facility] [place] [address] Jun, Nausea and vomiting R11.2 [facility] [address] [facility] [place] [address] May, [facility] [address] [facility] [place] [address] May, Rash and other nonspecific skin eruption R21 [facility] [address] [facility] [place] [address] May, [facility] [address] [facility] [place] [address] May, [facility] [address] [facility] [place] [address] May, [facility] [address] [facility] [place] [address] May, [facility] [address] [facility] [place] [address] May, [facility] [address] [place] [id number] May, Acquired immune deficiency syndrome B20 ; Screening examination for sexually transmitted disease Z11.3 ; Depression with anxiety F41.8 ; Other chronic pain G89.29 and Dermatitis L30.9 [facility] [address] [place] [address] May, [facility] [address] [place] [address] May, [facility] [address] [place] [address] May, [facility] [address] [place] [address] May, Backache M54.9 [facility] [address] [place] [address] May, Rash and other nonspecific skin eruption R21 [facility] [address] [place] [address] Apr, [facility] [address] [facility] [place] [place] [address] Apr, [facility] [address] [facility] [place] [place] [place] [address] Apr, Other chronic pain G89.29 [facility] [address] [facility] [place] [address] Apr, [facility] [address] [facility] [place] [address] Apr, [facility] [address] [facility] [place] [address] Apr, [facility] [address] [facility] [place] [place] [address] Apr, [facility] [address] [facility] [place] [address] Apr, [facility] [address] [facility] [place] [address] Apr, [facility] [address] [facility] [place] [address] Apr, [facility] [address] [facility] [place] [address] Apr, [facility] [address] [facility] [place] [address] Apr, [facility] [address] [place] [address] Apr, [facility] [address] [place] [address] Apr, Other chronic pain G89.29 ; Generalized anxiety disorder F41.1 ; Nausea R11.0 and AIDS B20 [facility] [address] [place] [address] Apr, [facility] [address] [place] [address] Apr, Generalized anxiety disorder F41.1 [facility] [address] [place] [address] Apr, [facility] [address] [place] [address] Apr, Other chronic pain G89.29 [facility] [address] [place] [address] Mar, [facility] [address] [facility] [place] [id number] Mar, longterm (current) use of opiate analgesic Z79.891 ; Bipolar affective disorder F31.9 ; Smoking F17.200 ; Generalized anxiety disorder F41.1 ; Influenza vaccine administered Z23 and AIDS B20 [facility] [address] [place] [address] Mar, Other chronic pain G89.[address] [address] Mar, Generalized anxiety disorder F41.[address] [address] Mar, [facility] [address] [place] [address] Mar, Asymptomatic HIV infection Z21 [address] [address] Mar, Other chronic pain G89.29 [facility] [address] [place] [address] Feb, [facility] [address] [place] [address] Feb, [facility] [address] [place] [address] Feb, [facility] [address] [place] [address] Feb, [facility] [address] [place] [address] Feb, [facility] [address] [place] [address] Jan, Other chronic pain G89.29 and Nausea & vomiting R11.2 [facility] [address] [place] [address] Jan, Other chronic pain G89.29 [facility] [address] [place] [address] Dec, [address] [address] Dec, Other chronic pain G89.29 ; Asymptomatic HIV infection Z21 ; Intrinsic asthma J45.909 ; Bipolar affective disorder F31.9 ; Noncompliance Z91.19 ; Migraine G43.909 ; Tobacco use disorder Z72.0 ; GERD (gastroesophageal reflux disease) K21.9 ; Backache M54.9 and Generalized anxiety disorder F41.[address] [address] Nov, [address] [address] Nov, [address] [address] Oct, Other chronic pain 338.[address] [address] Oct, [address] [address] Oct, Unspecified backache 724.5 and Dysphagia 787.[address] [address] Sep, Other chronic pain 338.[address] [address] Sep, [address] [address] Aug, URI (upper respiratory infection) 465.9 and Diarrhea 787.[address] [address] Aug, [address] [address] Aug, Other chronic pain 338.[address] [address] Aug, Other chronic pain 338.29 and Generalized anxiety disorder 300.[address] [place] [address] Aug, [address] [address] July, Other chronic pain 338.29 [facility] [address] [facility] [place] [id number] July, Nondependent tobacco use disorder 305.1 ; Unspecified backache 724.5 ; Other chronic pain 338.29 ; Abdominal pain, unspecified site 789.00 ; longterm (current) use of opiate analgesic V58.69 and Acquired immune deficiency syndrome [address] [address] July, Other chronic pain 338.[address] [address] Jun, Other chronic pain 338.[address] [address] Jun, [address] [address] Jun, Other chronic pain 338.[address] [address] Jun, URI (upper respiratory infection) 465.[address] [address] Jun, Generalized anxiety disorder 300.02 and Seasonal allergies 477.[address] [address] Jun, Generalized anxiety disorder 300.[address] [address] May, Other chronic pain 338.[address] [address] May, Other chronic pain 338.29 and Generalized anxiety disorder 300.[address] [address] Apr, Asthma, intrinsic 493.10 and Acute upper respiratory infections of other multiple sites 465.[address] [address] Apr, [facility] [address] [facility] [address] [place], [place] [id number] Apr, Depressive disorder [address] [facility] [address] [place] [address] Apr, Other chronic pain 338.29 [facility] [address] [place] [id number] Apr, [facility] [address] [place] [address] Apr, Other chronic pain 338.[address] [address] Mar, Acute upper respiratory infections of unspecified site 465.[address] [id number] Mar, Migraine 346.90 ; Nondependent tobacco use disorder 305.1 ; Esophageal reflux 530.81 ; Unspecified backache 724.5 ; Abdominal pain, generalized 789.07 ; Flatulence, eructation, and gas pain 787.3 ; Asymptomatic human immunodeficiency virus (HIV) infection status V08 ; Dyspepsia and other specified disorders of function of stomach 536.8 ; Nausea alone 787.02 and Asthma 493.[address] [address] Mar, Other chronic pain 338.[address] [address] Feb, Other chronic pain 338.29 and Generalized anxiety disorder 300.[address] [address] Feb, Abdominal pain, generalized 789.[address] [address] Jan, Abdominal pain, generalized 789.[address] [id number] Dec, [address] [address] Dec, [address] [facility] [place] [address] Dec, Unspecified backache 724.5 [facility] [address] [facility] [place] [place] [address] Dec, [facility] [address] [facility] [place] [address] Nov, [facility] [address] [facility] [address] [place] [id number] Nov, [facility] [address] [facility] [place] [id number] Nov, Bipolar disorder, unspecified 296.80 ; Abdominal pain, generalized 789.07 ; Generalized anxiety disorder 300.02 ; Nausea alone 787.02 ; Flu vaccine need V04.81 and Human immunodeficiency virus (HIV) disease 042 [facility] [address] [facility] [place] [address] Nov, [facility] [address] [facility] [address] [place] [id number] Oct, [facility] [address] [facility] [address] [place] [id number] Oct, [facility] [address] [facility] [address] [place] [id number] Aug, [facility] [address] [facility] [place] [place] [address] Jun, [facility] [address] [place] [address] Mar, [facility] [address] [place] [address] Oct, [facility] [address] [place] [address] July, [facility] [address] [place] [address] Jun, [facility] [address] [place] [address] May, [facility] [address] [place] [address] Mar, [facility] [address] [place] [address] Feb, [facility] [address] [place] [address] Nov, [facility] [address] [place] [address] Oct, [facility] [address] [place] [address] Aug, [facility] [address] [place] [address] May, [facility] [address] [place] [address] Mar, IMMUNIZATIONS No Known Immunizations SOCIAL HISTORY [...]
[2018-03-22 14:16] LABS: ALANINE AMINOTRANSFERASE 13 U/L (0-55); ALKALINE PHOSPHATASE 78 U/L (40-136); BILIRUBIN,TOTAL 0.3 MG/DL (0.1-1.0); BUN/CREATININE RATIO 13; CALCIUM 9.1 MG/DL (8.5-10.1); CARBON DIOXIDE 24 MMOL/L (21-32); CHLORIDE 105 MMOL/L (98-107); CREATININE SERUM 0.94 MG/DL (0.60-1.30); GFR ESTIMATED > 60; GLUCOSE 110 MG/DL (70-105); POTASSIUM 2.8 MMOL/L (3.6-5.0); SODIUM 141 MMOL/L (135-145); TOTAL PROTEIN 7.4 GM/DL (6.4-8.2)
--- OUTSIDE RECORDS SUMMARY | 2018-03-22 14:20 | XMS REPORT ---
Author Author Dulce Herrera [facility] Address [address] [place], [place] [id number] Care Team Providers Care Molder Bench Name Role Phone Dulce Herrera Unavailable PROBLEMS Type Condition ICD9-CM Code NSC78-TV Code Onset Dates Condition Status SNOMED Code Problem Bipolar affective disorder F31.9 Active 79207023 Problem Nicotine dependence, cigarettes, uncomplicated F17.210 Active 23351325 Problem [facility] (current) use of opiate analgesic Z79.891 Active 222446956 Problem Non-intractable cyclical vomiting with nausea G43.A0 Active 15654690 Problem Poor appetite R63.0 Active 46231368 Problem Wheezing on auscultation R06.2 Active 719796730 Problem Acquired immune deficiency syndrome B20 Active 66800922 Problem Other chronic pain G89.29 Active 59326647 Problem Mood swings F39 Active 01095004 Problem Generalized anxiety disorder F41.1 Active 09235156 Problem GERD (gastroesophageal reflux disease) K21.9 Active 373086248 Problem Mixed hyperlipidemia E78.2 Active 249664777 Problem Intrinsic asthma J45.909 Active 144705666 Problem Migraine G43.909 Active 51699206 Problem Backache M54.9 Active 370678139 ALLERGIES No Information ENCOUNTERS Encounter Location Date Diagnosis [facility], [place], operated [facility] [address] [place], [place] [id number] Sep, [facility] [address] [place] [address] Aug, Spider bite T63.301A [facility] [address] [place] [address] Aug, [facility] [address] [place] [address] Aug, [facility] [address] [place] [address] Aug, [facility] [address] [place], [place] [address], [place] [address] July, [facility] [address] [facility] [address] July, [facility] [address] [place] [facility] [address] July, [facility] [address] [place] [facility] [address] July, [facility] [address] [place] [facility] [address] July, [facility] [address] [place] [facility] [place] [address] July, Poor appetite R63.0 and Backache M54.9 [facility] [address] [place] [facility] [place] [facility] [address] July, [facility] [address] [facility] [place] [address] July, [facility] [address] [facility] [place] [address] July, [facility] [address] [place] [facility] [place] [facility] [address] July, [facility] [address] [place] [facility] [place] [address] July, [facility] [address] [facility] [place] [address] July, Nausea and vomiting R11.2 [facility] [address] [facility] [place] [facility] [place] [address] July, [facility] [address] [place] [facility] [place] [address] July, [facility] [address] [place] [facility] [place] [address] July, [facility] [address] [place] [facility] [place] [facility] [place] [address] July, [facility] [address] [facility] [place] [address] July, [facility] [address] [facility] [place] [facility] [address] July, Other chronic pain G89.29 [facility] [address] [place] [facility] [place] [facility] [address] July, [facility] [address] [place] [facility] [place] [address] July, GERD (gastroesophageal reflux disease) K21.9 [facility] [address] [place] [facility] [place] [facility] [address] July, [facility] [address] [place] [facility] [place] [address] Jun, [facility] [address] [facility] [place] [address] Jun, [facility] [address] [facility] [address] Jun, [facility] [address] [place] [facility] [place] [facility] [address] Jun, [facility] [address] [place] [facility] [place] [facility] [address] Jun, Other chronic pain G89.29 [facility] [address] [place] [facility] [address] Jun, [facility] [address] [place] [facility] [place] [facility] [address] Jun, [facility] [address] [facility] [place] [facility] [address] Jun, [facility] [address] [place] [facility] [place] [address] Jun, [facility] [address] [place] [facility] [place] [address] Jun, [facility] [address] [facility] [place] [address] Jun, Generalized anxiety disorder F41.1 ; Other chronic pain G89.29 and Non-intractable cyclical vomiting with nausea G43.A0 [facility], [place], [facility] [address] [facility] [address] [place] [id number] Jun, Acquired immune deficiency syndrome B20 ; 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 ; Nicotine dependence, cigarettes, uncomplicated F17.210 ; Lower respiratory infection J22 ; Poor appetite R63.0 ; Other chronic pain G89.29 ; Generalized anxiety disorder F41.1 and Need for tetanus booster Z23 [address] [address] Jun, [address] [address] May, Generalized abdominal pain R10.[address] [address] May, [address] [address] Apr, AIDS B20 ; Generalized abdominal pain R10.84 and Dysmenorrhea N94.[address] [address] Apr, Acute URI J06.[address] [address] Apr, [address] [address] Apr, [facility] [address] [place] [id number] Apr, Acquired immune deficiency syndrome B20 ; [facility] ( current) use of opiate analgesic Z79.891 and Migraine G43.[address] [address] Mar, Dysmenorrhea N94.[address] [address] Mar, [address] [address] Mar, Generalized anxiety disorder F41.1 and Generalized abdominal pain R10.[address] [address] Mar, [address] [address] Mar, Generalized abdominal pain R10.84 and Generalized anxiety disorder F41.[address] [address] Feb, [facility] [address] [place] [address] Feb, Generalized abdominal pain R10.84 [facility] [address] [place] [address] Jan, Nausea and vomiting R11.2 [facility] [address] [place] [address] 18 Jan, 2017 [facility] [address] [place] [address] Jan, [facility] [address] [place] [address] Jan, [facility] [address] [place] [address] Jan, [facility] [address] [place] [address] Jan, [facility] [address] [place] [address] Jan, Mood swings F39 [facility] [address] [place] [address] Jan, [facility] [address] [place] [address] Jan, [facility] [address] [place] [address] Jan, [facility] [address] [place] [address] Jan, Dysmenorrhea N94.6 [facility] [address] [place] [phone] Jan, Acquired immune deficiency syndrome B20 ; Generalized abdominal pain R10.84 and Refused influenza vaccine Z28.21 [facility] [address] [place] [address] Jan, [facility] [address] [place] [address] Dec, Generalized abdominal pain R10.84 [facility] [address] [place] [address] Dec, Dysmenorrhea N94.6 [facility] [address] [place] [address] Dec, Backache M54.9 [facility] [address] [place] [address] Nov, Generalized abdominal pain R10.84 [facility] [address] [place] [address] Nov, Generalized anxiety disorder F41.[address] [address] Nov, Dysmenorrhea N94.[address] [address] Oct, [address] [address] Oct, [address] [address] Oct, [address] [address] Oct, Generalized abdominal pain R10.84 [facility] [address] [place] [id number] Oct, Acquired immune deficiency syndrome B20 ; [facility] 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 Z79.891 ; Bipolar affective disorder F31.9 ; Generalized anxiety disorder F41.1 ; Backache M54.9 ; Mixed hyperlipidemia E78.2 ; Nicotine dependence, cigarettes, uncomplicated F17.210 and Wheezing on auscultation R06.[address] [address] Oct, Oral candidiasis B37.[address] [address] Oct, [address] [address] Oct, Acute upper respiratory infection J06.[address] [address] Oct, Acute upper respiratory infection J06.[address] [address] Sep, Dysmenorrhea N94.6 [facility] [address] [facility] [address] Sep, Generalized anxiety disorder F41.1 [facility] [address] [place] [facility] [address] Sep, Dysmenorrhea N94.6 [facility] [address] [place] [facility] [place] [facility] [address] Sep, [facility] [address] [facility] [address] Sep, Dysmenorrhea N94.6 [facility] [address] [facility] [place] [address] Aug, Acquired immune deficiency syndrome B20 [facility] [address] [facility] [place] [facility] [address] Aug, Generalized anxiety disorder F41.1 [facility] [address] [facility] [place] [facility] [address] Aug, [facility] [address] [facility] [place] [facility] [address] Aug, [facility] [address] [facility] [place] [facility] [address] Aug, [facility] [address] [facility] [place] [facility] [address] Aug, [facility] [address] [facility] [place] [facility] [address] Aug, [facility] [address] [place] [address] Aug, [facility] [address] [facility] [place] [facility] [place] [address] Aug, [facility] [address] [facility] [place] [address] Aug, Acute opioid withdrawal F11.23 [facility] [address] [facility] [place] [address] July, Upper respiratory infection J06.9 [facility] [address] [place] [address] July, Backache M54.9 [facility] [address] [id number] July, Acquired immune deficiency syndrome B20 ; [facility] 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 Z79.891 ; Hyperglycemia R73.9 ; Bipolar affective disorder F31.9 ; GERD (gastroesophageal reflux disease) K21.9 ; Backache M54.9 ; Generalized anxiety disorder F41.1 ; Mixed hyperlipidemia E78.2 ; Nicotine dependence, cigarettes, uncomplicated F17.210 and Localized edema R60.[address] [address] July, [address] [address] Jun, Backache M54.[address] [address] Jun, Chronic pain G89.[address] [address] May, Backache M54.[address] [address] May, Backache M54.[address] [address] Apr, Cough R05 [facility] [address] [id number] Apr, Acquired immune deficiency syndrome B20 ; Screening examination for sexually transmitted disease Z11.3 ; Dermatitis L30.9 and Migraine with aura and with status migrainosus, not intractable G43.[address] [address] Apr, Backache M54.[address] [address] Mar, Intrinsic asthma J45.909 ; Nausea and vomiting R11.2 and AIDS B20 [address] [address] Mar, Backache M54.[address] [address] Feb, Chronic pain G89.29 [facility] [address] [place] [address] Feb, Backache M54.[address] [address] Jan, [place] [facility], 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 [address] Jan, Asthma, intrinsic 493.10 [facility] [address] [place] [address] Jan, [address] [address] Jan, [address] [address] Jan, Backache M54.[address] [address] Dec, Chronic pain G89.29 [facility] [address] [place] [id number] Dec, AIDS B20 ; Influenza vaccine needed Z23 ; Intrinsic asthma J45.909 ; Backache M54.9 ; Generalized anxiety disorder F41.1 ; Nicotine dependence, cigarettes, uncomplicated F17.210 and Mixed hyperlipidemia E78.[address] [address] Dec, [address] [address] Dec, Dysmenorrhea N94.[address] [address] Dec, [address] [address] Dec, Depression with anxiety F41.8 and Backache M54.[address] [address] Nov, [address] [address] Nov, Other chronic pain G89.[address] [place] [address] Nov, Other chronic pain G89.29 [facility] [address] [facility] [place] [address] Nov, [facility] [address] [facility] [place] [address] 14 Nov, 2015 Generalized anxiety disorder F41.1 [facility] [address] [facility] [address] Nov, [facility] [address] [facility] [address] Nov, [facility] [address] [facility] [place] [address] Nov, Chronic pain G89.29 [facility] [address] [facility] [place] [facility] [place] [address] Oct, [facility] [address] [place] [address] Oct, Other chronic pain G89.29 [facility] [address] [facility] [place] [address] Oct, [facility] [address] [place] [address] Oct, [facility] [address] [facility] [place] [address] Oct, Nausea and vomiting R11.2 [facility] [address] [place] [address] Oct, Chronic pain G89.29 [facility] [address] [place] [address] Sep, [facility] [address] [place] [address] Sep, Acute upper respiratory infection, unspecified J06.9 [facility] [address] [place] [address] Sep, Upper respiratory infection J06.9 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 ; Smoking F17.200 ; Mixed hyperlipidemia E78.2 ; Chronic pain G89.29 and Edema R60.9 [facility] [address] [place] [address] Sep, [facility] [address] [place] [address] Sep, [facility] [address] [place] [address] Aug, [facility] [address] [place] [address] Aug, Other chronic pain G89.29 [facility] [address] [place] [address] Aug, Generalized anxiety disorder F41.1 [facility] [address] [place] [address] July, Other chronic pain G89.29 [facility] [address] [place] [address] July, Other chronic pain G89.29 [facility] [address] [place] [address] July, [facility] [address] [place] [address] Jun, Generalized anxiety disorder F41.1 [facility] [address] [place] [address] Jun, [facility] [address] [place] [address] Jun, Other chronic pain G89.29 [facility] [address] [place] [address] Jun, Rash and other nonspecific skin eruption R21 [facility] [address] [place] [address] Jun, [facility] [address] [facility] [place] [address] Jun, [facility] [address] [place] [facility] [place] [address] Jun, [facility] [address] [facility] [place] [facility] [place] [address] Jun, [facility] [address] [facility] [place] [facility] [place] [address] Jun, [facility] [address] [facility] [place] [address] Jun, [facility] [address] [place] [facility] [place] [address] Jun, [facility] [address] [facility] [place] [address] Jun, Other chronic pain G89.29 [facility] [address] [facility] [place] [address] Jun, [facility] [address] [facility] [place] [address] Jun, [facility] [address] [facility] [place] [address] Jun, [facility] [address] [facility] [place] [address] Jun, [facility] [address] [facility] [place] [address] Jun, [facility] [address] [place] [facility] [place] [address] Jun, [facility] [address] [facility] [address] Jun, [facility] [address] [facility] [place] [address] Jun, [facility] [address] [facility] [place] [address] Jun, [facility] [address] [facility] [place] [address] Jun, Nausea and vomiting R11.2 [facility] [address] [facility] [place] [address] May, [facility] [address] [place] [address] May, Rash and other nonspecific skin eruption R21 [facility] [address] [facility] [place] [address] May, [facility] [address] [facility] [place] [address] May, [facility] [address] [facility] [place] [address] May, [facility] [address] [facility] [place] [facility] [address] May, [facility] [address] [place] [address] May, [facility] [address] [place] [id number] May, Acquired immune deficiency syndrome B20 ; Screening examination for sexually transmitted disease Z11.3 ; Depression with anxiety F41.8 ; Other chronic pain G89.29 and Dermatitis L30.9 [facility] [address] [place] [address] May, [facility] [address] [place] [address] May, [facility] [address] [place] [address] May, [facility] [address] [place] [address] May, Backache M54.9 [facility] [address] [place] [address] May, Rash and other nonspecific skin eruption R21 [facility] [address] [place] [address] Apr, [facility] [address] [place] [address] Apr, [facility] [address] [place] [address] Apr, Other chronic pain G89.29 [facility] [address] [place] [address] Apr, [facility] [address] [facility] [place] [address] Apr, [facility] [address] [facility] [place] [facility] [place] [address] Apr, [facility] [address] [facility] [address] Apr, [facility] [address] [facility] [place] [facility] [address] Apr, [facility] [address] [facility] [place] [facility] [address] Apr, [facility] [address] [facility] [place] [address] Apr, [facility] [address] [facility] [place] [facility] [place] [address] Apr, [facility] [address] [facility] [place] [facility] [address] Apr, [facility] [address] [facility] [address] Apr, [facility] [address] [place] [address] Apr, Other chronic pain G89.29 ; Generalized anxiety disorder F41.1 ; Nausea R11.[address] [facility] [address] [place] [address] Apr, [facility] [address] [place] [address] Apr, Generalized anxiety disorder F41.1 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29 [facility] [address] [place] [address] Feb, [facility] [address] [place] [address] Feb, [facility] [address] [place] [address] Feb, [facility] [address] [place] [address] Feb, [facility] [address] [place] [address] Feb, [facility] [address] [place] [address] Jan, Other chronic pain G89.29 and Nausea & vomiting R11.2 [facility] [address] [place] [address] Jan, Other chronic pain G89.29 [facility] [address] [place] [address] Dec, [facility] [address] [place] [address] Dec, Other chronic pain G89.29 ; Asymptomatic HIV infection Z21 ; Intrinsic asthma J45.909 ; Bipolar affective disorder F31.9 ; Noncompliance Z91.19 ; Migraine G43.909 ; Tobacco use disorder Z72.0 ; GERD (gastroesophageal reflux disease) K21.9 ; Backache M54.9 and Generalized anxiety disorder F41.[address] [address] Nov, [address] [address] Nov, [address] [address] Oct, Other chronic pain 338.[address] [address] Oct, [address] [address] Oct, Unspecified backache 724.5 and Dysphagia 787.[address] [address] Sep, Other chronic pain 338.[address] [address] Sep, [address] [address] Aug, URI (upper respiratory infection) 465.9 and Diarrhea 787.[address] [address] Aug, [address] [address] Aug, Other chronic pain 338.[address] [address] Aug, Other chronic pain 338.29 and Generalized anxiety disorder 300.[address] [address] Aug, [address] [address] July, Other chronic pain 338.29 [facility] [place], [facility] [address] [place] [id number] July, Nondependent tobacco use disorder 305.1 ; Unspecified backache 724.5 ; Other chronic pain 338.29 ; Abdominal pain, unspecified site 789.00 ; 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.69 and Acquired immune deficiency syndrome 042 [facility] [address] [place] [address] July, Other chronic pain 338.29 [facility] [address] [place] [address] Jun, Other chronic pain 338.29 [facility] [address] [place] [address] Jun, [facility] [address] [place] [address] Jun, Other chronic pain 338.[address] [address] Jun, URI (upper respiratory infection) 465.9 [facility] [address] [place] [address] Jun, Generalized anxiety disorder 300.02 and Seasonal allergies 477.9 [facility] [address] [place] [address] Jun, Generalized anxiety disorder 300.02 [facility] [address] [place] [address] May, Other chronic pain 338.29 [facility] [address] [place] [address] May, Other chronic pain 338.29 and Generalized anxiety disorder 300.02 [facility] [address] [place] [address] Apr, Asthma, intrinsic 493.10 and Acute upper respiratory infections of other multiple sites 465.8 [facility] [address] [place] [address] Apr, [facility] [address] [facility] [address] [place], [place] [id number] Apr, Depressive disorder 311 [facility] [address] [place] [address] Apr, Other chronic pain 338.[address] [address] Apr, [address] [address] Apr, Other chronic pain 338.[address] [address] 14 Mar, 2014 Acute upper respiratory infections of unspecified site 465.9 [facility] [address] [place] [id number] Mar, Migraine 346.90 ; Nondependent tobacco use disorder 305.1 ; Esophageal reflux 530.81 ; Unspecified backache 724.5 ; Abdominal pain, generalized 789.07 ; Flatulence, eructation, and gas pain 787.3 ; Asymptomatic human immunodeficiency virus (HIV) infection status V08 ; Dyspepsia and other specified disorders of function of stomach 536.8 ; Nausea alone 787.02 and Asthma 493.[address] [address] Mar, Other chronic pain 338.[address] [address] Feb, Other chronic pain 338.29 and Generalized anxiety disorder 300.[address] [address] Feb, Abdominal pain, generalized 789.[address] [address] Jan, Abdominal pain, generalized 789.07 [facility] [address] [place] [id number] Dec, [address] [address] Dec, [address] [address] Dec, Unspecified backache 724.[address] [address] Dec, [address] [address] Nov, [place] [address] [facility] [address] [place], [place] [id number] Nov, [facility] [place] [address] [facility] [address] [place], [place] [id number] Nov, Bipolar disorder, unspecified 296.80 ; Abdominal pain, generalized 789.07 ; Generalized anxiety disorder 300.02 ; Nausea alone 787.02 ; Flu vaccine need V04.81 and Human immunodeficiency virus (HIV) disease 042 [facility] [address] [facility] [place] [address] Nov, [facility] [place] [facility] [address] [facility] [address] [place], [place] [id number] Oct, [facility] [place] [facility] [address] [facility] [address] [place] [phone] Oct, [facility] [place] [facility] [address] [facility] [address] [place] [id number] Aug, [facility] [address] [facility] [place] [facility] [address] Jun, [facility] [address] [facility] [place] [facility] [address] Mar, [facility] [address] [facility] [place] [facility] [address] Oct, [facility] [address] [facility] [place] [facility] [address] July, [facility] [address] [facility] [place] [address] Jun, [facility] [address] [facility] [place] [facility] [address] May, [facility] [address] [facility] [place] [facility] [address] Mar, [facility] [address] [facility] [place] [facility] [address] Feb, [facility] [address] [facility] [place] [facility] [address] Nov, [facility] [address] [facility] [place] [address] Oct, [facility] [address] [facility] [place] [facility] [address] Aug, [facility] [address] [place] [address] May, [facility] [address] [place] [address] Mar, IMMUNIZATIONS No Known Immunizations SOCIAL HISTORY Never Assessed REASON FOR VISIT spider bite PLAN OF CARE VITAL SIGNS MEDICATIONS Medication Instructions Dosage Frequency Start Date End Date Duration Status Levaquin 500 MG Orally Once a day 1 tablet 24h Jun, 7 days Active Dicyclomine HCl 20 MG Orally three times a day 1 tablet 8h July, 30 day(s) Active Promethazine HCl 25 MG Orally three times a day 1 tablet as needed 8h Mar, 30 day(s) Active Diflucan 150 Orally Once a day 1 tablet 24h 5 Active Zithromax Z-Riky 250 MG Orally Once a day 1 tablet daily 24h May, Active Methocarbamol 750 TAKE ONE TABLET BY MOUTH EVERY 8 HOURS FOR 10 DAYS 10 Active Dapsone 100 MG Orally Once a day 1 tablet 24h Apr, 30 days Active Montelukast Sodium 10 MG Orally Once a day 1 tablet in the evening 24h July, 30 day(s) Active Methocarbamol 500 TAKE ONE AND ONE-HALF (1 & 1/2) TABLET BY MOUTH EVERY 8 HOURS FOR 10 DAYS 10 Active Omeprazole 40 MG Orally Once a day 1 capsule 24h July, 30 day(s ) Active Xanax 1 MG Orally once daily at bedtime 1 tablet as needed Sep, 30 days Active Zofran 4 MG Orally every 6 hours prn TAKE ONE TABLET BY MOUTH EVERY 8 HOURS FOR 10 DAYS 30 days Active ProAir HFA 108 (90 Base) MCG/ACT Inhalation every 4 hrs 2 puffs as needed 4h Sep, 30 days Active Bactrim DS 800-160 MG Orally Twice a day 1 tablet 12h Aug, 7 days Active Ventolin HFA 108 (90 Base) MCG/ACT Inhalation every 4 hrs 2 puffs as needed 4h Oct, 30 days Active Stribild [id number] MG Orally Once a day 1 tablet 24h Aug, 30 days Active Marinol 10 MG Orally three times a day 1 capsule before lunch and supper 8h Jun, 30 days Active Hydrochlorothiazide 25 MG Orally Once a day 1 tablet in the morning 24h July, 30 day(s) Active [facility] Omeprazole 20 [...]
[2018-03-22 14:23] LABS: ANISOCYTOSIS SLIGHT; BAND NEUTROPHILS 4 %; BASOPHILS % (MANUAL) 0 %; ELLIPT/OVALOCYTES SLIGHT; EOSINOPHILS % (MANUAL) 0 %; LYMPHOCYTES % (MANUAL) 42 %; MONOCYTES % (MANUAL) 20 %; NEUTROPHILS % (MANUAL) 32 %
--- OUTSIDE RECORDS SUMMARY | 2018-03-22 14:23 | XMS REPORT ---
Author Author Dulce Herrera [facility] Address [address] [place], [place] [id number] Care Team Providers Care Biology Internship Name Role Phone Dulce Herrera Unavailable PROBLEMS Type Condition ICD9-CM Code VMP21-YY Code Onset Dates Condition Status SNOMED Code Problem Bipolar affective disorder F31.9 Active 34997556 Problem Nicotine dependence, cigarettes, uncomplicated F17.210 Active 59857858 Problem USP (current) use of opiate analgesic Z79.891 Active 280686159 Problem Non-intractable cyclical vomiting with nausea G43.A0 Active 50738399 Problem Poor appetite R63.0 Active 70321043 Problem Wheezing on auscultation R06.2 Active 141188785 Problem Acquired immune deficiency syndrome B20 Active 20231742 Problem Other chronic pain G89.29 Active 56708178 Problem Mood swings F39 Active 75306333 Problem Generalized anxiety disorder F41.1 Active 79859267 Problem GERD (gastroesophageal reflux disease) K21.9 Active 512074278 Problem Mixed hyperlipidemia E78.2 Active 840886355 Problem Intrinsic asthma J45.909 Active 383389788 Problem Migraine G43.909 Active 43947394 Problem Backache M54.9 Active [id number] ALLERGIES No Information ENCOUNTERS Encounter Location Date Diagnosis [facility] [address] [facility] [place] [id number] Sep, [facility] [address] [place] [address] Aug, Backache M54.9 [facility] [address] [place] [address] Aug, [facility] [address] [place] [address] Aug, Spider bite T63.301A [facility] [address] [place] [address] Aug, [facility] [address] [place] [facility] [place] [address] Aug, [facility] [address] [facility] [place] [address] Aug, [facility] [address] [facility] [place] [address] July, [facility] [address] [facility] [place] [address] July, [facility] [address] [facility] [place] [address] July, [facility] [address] [facility] [place] [address] July, [facility] [address] [facility] [place] [address] July, [facility] [address] [facility] [place] [address] July, Poor appetite R63.0 and Backache M54.9 [facility] [address] [place] [facility] [place] [address] July, [facility] [address] [facility] [place] [address] July, [facility] [address] [facility] [place] [address] July, [facility] [address] [facility] [place] [address] July, [facility] [address] [facility] [place] [address] July, [facility] [address] [facility] [place] [address] July, Nausea and vomiting R11.2 [facility] [address] [facility] [place] [address] July, [facility] [address] [facility] [place] [address] July, [facility] [address] [facility] [place] [address] July, [facility] [address] [facility] [place] [address] July, [facility] [address] [facility] [place] [address] July, [facility] [address] [facility] [place] [address] July, Other chronic pain G89.29 [facility] [address] [place] [facility] [place] [address] July, [facility] [address] [facility] [place] [address] July, GERD (gastroesophageal reflux disease) K21.9 [facility] [address] [place] [facility] [place] [address] July, [facility] [address] [place] [facility] [place] [address] Jun, [facility] [address] [facility] [place] [address] Jun, [facility] [address] [facility] [place] [address] Jun, [facility] [address] [facility] [place] [address] Jun, [facility] [address] [facility] [place] [address] Jun, Other chronic pain G89.29 [facility] [address] [place] [facility] [place] [address] Jun, [facility] [address] [place] [address] Jun, [facility] [address] [facility] [place] [address] Jun, [facility] [address] [place] [facility] [place] [address] Jun, [facility] [address] [place] [facility] [place] [address] Jun, [facility] [address] [place] [facility] [place] [address] Jun, Generalized anxiety disorder F41.1 ; Other chronic pain G89.29 and Non-intractable cyclical vomiting with nausea G43.A0 [facility] [address] [place], [place] [phone] Jun, Acquired immune deficiency syndrome B20 ; 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 ; Nicotine dependence, cigarettes, uncomplicated F17.210 ; Lower respiratory infection J22 ; Poor appetite R63.0 ; Other chronic pain G89.29 ; Generalized anxiety disorder F41.1 and Need for tetanus booster Z23 [address] [address] Jun, [address] [address] May, Generalized abdominal pain R10.[address] [address] May, [address] [address] Apr, AIDS B20 ; Generalized abdominal pain R10.84 and Dysmenorrhea N94.[address] [address] Apr, Acute URI J06.[address] [address] Apr, [address] [address] Apr, [facility] [address] [place] [phone] Apr, Acquired immune deficiency syndrome B20 ; USP ( current) use of opiate analgesic Z79.891 and Migraine G43.[address] [address] Mar, Dysmenorrhea N94.[address] [address] Mar, [address] [address] Mar, Generalized anxiety disorder F41.1 and Generalized abdominal pain R10.[address] [address] Mar, [address] [place] [address] Mar, Generalized abdominal pain R10.84 and Generalized anxiety disorder F41.1 [facility] [address] [place] [address] Feb, [facility] [address] [place] [address] Feb, Generalized abdominal pain R10.84 [facility] [address] [address] Jan, Nausea and vomiting R11.2 [facility] [address] [address] Jan, [facility] [address] [place] [address] Jan, [facility] [address] [place] [address] Jan, [facility] [address] [place] [address] Jan, [facility] [address] [place] [address] Jan, [facility] [address] [place] [address] Jan, Mood swings F39 [facility] [address] [place] [address] Jan, [facility] [address] [place] [address] Jan, [facility] [address] [place] [address] Jan, [facility] [address] [place] [address] Jan, Dysmenorrhea N94.6 [facility] [address] [place] [phone] Jan, Acquired immune deficiency syndrome B20 ; Generalized abdominal pain R10.84 and Refused influenza vaccine Z28.21 [facility] [address] [place] [address] Jan, [facility] [address] [place] [address] Dec, Generalized abdominal pain R10.84 [facility] [address] [place] [address] Dec, Dysmenorrhea N94.6 [facility] [address] [place] [address] Dec, Backache M54.9 [facility] [address] [place] [address] Nov, Generalized abdominal pain R10.84 [facility] [address] [place] [address] Nov, Generalized anxiety disorder F41.[address] [address] 08 Nov, 2016 Dysmenorrhea N94.6 [facility] [address] [place] [address] Oct, [facility] [address] [place] [address] Oct, [facility] [address] [place] [address] Oct, [facility] [address] [place] [address] Oct, Generalized abdominal pain R10.84 [facility] [address] [place] [phone] Oct, Acquired immune deficiency syndrome B20 ; 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 ; Bipolar affective disorder F31.9 ; Generalized anxiety disorder F41.1 ; Backache M54.9 ; Mixed hyperlipidemia E78.2 ; Nicotine dependence, cigarettes, uncomplicated F17.210 and Wheezing on auscultation R06.[address] [address] Oct, Oral candidiasis B37.0 [facility] [address] [address] Oct, [facility] [address] [place] [address] Oct, Acute upper respiratory infection J06.9 [place] [address] [facility] [place] [address] Oct, Acute upper respiratory infection J06.9 [facility] [address] [place] [facility] [place] [address] Sep, Dysmenorrhea N94.6 [facility] [address] [facility] [place] [address] Sep, Generalized anxiety disorder F41.1 [facility] [address] [facility] [place] [address] Sep, Dysmenorrhea N94.6 [facility] [address] [facility] [place] [address] Sep, [facility] [address] [facility] [place] [address] Sep, Dysmenorrhea N94.6 [facility] [address] [facility] [place] [address] Aug, Acquired immune deficiency syndrome B20 [facility] [address] [facility] [place] [address] Aug, Generalized anxiety disorder F41.1 [facility] [address] [facility] [place] [address] Aug, [facility] [address] [place] [address] Aug, [facility] [address] [place] [address] Aug, [facility] [address] [place] [address] Aug, [facility] [address] [place] [address] Aug, [facility] [address] [facility] [place] [address] Aug, [facility] [address] [place] [address] Aug, [facility] [address] [facility] [place] [address] Aug, Acute opioid withdrawal F11.23 [facility] [address] [facility] [place] [address] July, Upper respiratory infection J06.[address] [address] July, Backache M54.[address] [id number] July, Acquired immune deficiency syndrome B20 ; USP 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 Z79.891 ; Hyperglycemia R73.9 ; Bipolar affective disorder F31.9 ; GERD (gastroesophageal reflux disease) K21.9 ; Backache M54.9 ; Generalized anxiety disorder F41.1 ; Mixed hyperlipidemia E78.2 ; Nicotine dependence, cigarettes, uncomplicated F17.210 and Localized edema R60.[address] [address] July, [address] [address] Jun, Backache M54.[address] [address] Jun, Chronic pain G89.[address] [address] May, Backache M54.[address] [address] May, Backache M54.[address] [address] Apr, Cough R05 [facility] [address] [phone] Apr, Acquired immune deficiency syndrome B20 ; Screening examination for sexually transmitted disease Z11.3 ; Dermatitis L30.9 and Migraine with aura and with status migrainosus, not intractable G43.[address] [address] Apr, Backache M54.[address] [address] Mar, Intrinsic asthma J45.909 ; Nausea and vomiting R11.2 and AIDS B20 [facility] [address] [address] Mar, Backache M54.9 [facility] [address] [place] [address] Feb, Chronic pain G89.29 [facility] [address] [place] [address] Feb, Backache M54.9 [facility] [address] [place] [address] Jan, [place] eye, 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 [address] Jan, Asthma, intrinsic 493.[address] [address] Jan, [address] [address] Jan, [facility] [address] [place] [address] Jan, Backache M54.9 [facility] [address] [place] [address] Dec, Chronic pain G89.29 [facility] [address] [place] [phone] Dec, AIDS B20 ; Influenza vaccine needed Z23 ; Intrinsic asthma J45.909 ; Backache M54.9 ; Generalized anxiety disorder F41.1 ; Nicotine dependence, cigarettes, uncomplicated F17.210 and Mixed hyperlipidemia E78.2 [facility] [address] [address] Dec, [address] [address] Dec, Dysmenorrhea N94.[address] [address] Dec, [address] [address] Dec, Depression with anxiety F41.8 and Backache M54.9 [facility] [address] [facility] [place] [address] Nov, [facility] [address] [place] [address] Nov, Other chronic pain G89.29 [facility] [address] [facility] [place] [address] 18 Nov, 2015 Other chronic pain G89.29 [facility] [address] [facility] [place] [address] 18 Nov, 2015 [facility] [address] [facility] [place] [address] 14 Nov, 2015 Generalized anxiety disorder F41.1 [facility] [address] [facility] [place] [address] Nov, [facility] [address] [place] [address] Nov, [facility] [address] [place] [address] Nov, Chronic pain G89.29 [facility] [address] [facility] [place] [address] Oct, [facility] [address] [place] [address] Oct, Other chronic pain G89.29 [facility] [address] [facility] [place] [address] Oct, [facility] [address] [place] [address] Oct, [facility] [address] [place] [address] Oct, Nausea and vomiting R11.2 [facility] [address] [place] [address] Oct, Chronic pain G89.29 [facility] [address] [facility] [place] [address] Sep, [facility] [address] [place] [address] Sep, Acute upper respiratory infection, unspecified J06.9 [facility] [address] [facility] [place] [address] Sep, Upper respiratory infection J06.9 [facility] [address] [place] [address] Sep, [facility] [address] [place] [address] Sep, [facility] [address] [place] [address] Sep, Other chronic pain G89.29 [facility] [address] [facility] [address] [place] [address] Sep, AIDS B20 ; 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 [address] [place] [address] Aug, [facility] [address] [place] [address] Aug, Other chronic pain G89.29 [facility] [address] [place] [address] Aug, Generalized anxiety disorder F41.1 [facility] [address] [place] [address] July, Other chronic pain G89.29 [facility] [address] [place] [address] July, Other chronic pain G89.29 [facility] [address] [place] [address] July, [facility] [address] [place] [address] Jun, Generalized anxiety disorder F41.1 [facility] [address] [place] [address] Jun, [facility] [address] [place] [address] Jun, Other chronic pain G89.29 [facility] [address] [facility] [place] [address] Jun, Rash and other nonspecific skin eruption R21 [facility] [address] [facility] [place] [address] Jun, [facility] [address] [facility] [place] [address] Jun, [facility] [address] [facility] [place] [address] Jun, [facility] [address] [facility] [place] [address] Jun, [facility] [address] [facility] [place] [address] Jun, [facility] [address] [facility] [place] [address] Jun, [facility] [address] [facility] [place] [address] Jun, [facility] [address] [facility] [place] [address] Jun, Other chronic pain G89.29 [facility] [address] [facility] [place] [address] Jun, [facility] [address] [facility] [place] [address] Jun, [facility] [address] [facility] [place] [address] Jun, [facility] [address] [facility] [place] [address] Jun, [facility] [address] [facility] [place] [address] Jun, [facility] [address] [facility] [place] [address] Jun, [facility] [address] [facility] [place] [address] Jun, [facility] [address] [facility] [place] [address] Jun, [facility] [address] [place] [address] Jun, [facility] [address] [place] [address] Jun, Nausea and vomiting R11.2 [facility] [address] [place] [address] 24 May, 2015 [facility] [address] [place] [address] May, Rash and other nonspecific skin eruption R21 [facility] [address] [place] [address] May, [facility] [address] [place] [address] May, [facility] [address] [place] [address] May, [facility] [address] [address] May, [facility] [address] [place] [address] May, [facility] [address] [place] [phone] 18 May, 2015 Acquired immune deficiency syndrome B20 ; Screening examination for sexually transmitted disease Z11.3 ; Depression with anxiety F41.8 ; Other chronic pain G89.29 and Dermatitis L30.9 [facility] [address] [address] May, [facility] [address] [place] [address] May, [facility] [address] [address] May, [facility] [address] [place] [address] May, Backache M54.9 [facility] [address] [place] [address] May, Rash and other nonspecific skin eruption R21 [facility] [address] [place] [address] Apr, [facility] [address] [place] [address] Apr, [facility] [address] [facility] [place] [address] Apr, Other chronic pain G89.29 [facility] [address] [facility] [place] [address] Apr, [facility] [address] [facility] [place] [address] Apr, [facility] [address] [facility] [place] [address] Apr, [facility] [address] [facility] [place] [address] Apr, [facility] [address] [facility] [place] [address] Apr, [facility] [address] [facility] [place] [address] Apr, [facility] [address] [facility] [place] [address] Apr, [facility] [address] [facility] [place] [address] Apr, [facility] [address] [facility] [place] [address] Apr, [facility] [address] [facility] [place] [address] Apr, [facility] [address] [facility] [place] [address] Apr, Other chronic pain G89.29 ; Generalized anxiety disorder F41.1 ; Nausea R11.0 and AIDS B20 [facility] [address] [facility] [place] [address] Apr, [facility] [address] [facility] [place] [address] Apr, Generalized anxiety disorder F41.1 [facility] [address] [place] [address] Apr, [facility] [address] [place] [facility] [place] [address] Apr, Other chronic pain G89.29 [facility] [address] [place] [address] Mar, [facility] [address] [facility] [place] [address] Mar, USP (current) use of opiate analgesic Z79.891 ; Bipolar affective disorder F31.9 ; Smoking F17.200 ; Generalized anxiety disorder F41.1 ; Influenza vaccine administered Z23 and AIDS B20 [facility] [address] [address] Mar, Other chronic pain G89.29 [facility] [address] [address] Mar, Generalized anxiety disorder F41.[address] [address] Mar, [facility] [address] [address] Mar, Asymptomatic HIV infection Z21 [facility] [address] [address] Mar, Other chronic pain G89.29 [facility] [address] [place] [address] Feb, [facility] [address] [address] Feb, [address] [address] Feb, [facility] [address] [address] Feb, [facility] [address] [address] Feb, [facility] [address] [place] [address] Jan, Other chronic pain G89.29 and Nausea & vomiting R11.2 [facility] [address] [address] Jan, Other chronic pain G89.29 [facility] [address] [place] [address] Dec, [address] [address] Dec, Other chronic pain G89.29 ; Asymptomatic HIV infection Z21 ; Intrinsic asthma J45.909 ; Bipolar affective disorder F31.9 ; Noncompliance Z91.19 ; Migraine G43.909 ; Tobacco use disorder Z72.0 ; GERD (gastroesophageal reflux disease) K21.9 ; Backache M54.9 and Generalized anxiety disorder F41.[address] [address] Nov, [address] [address] Nov, [address] [address] Oct, Other chronic pain 338.[address] [address] Oct, [address] [address] Oct, Unspecified backache 724.5 and Dysphagia 787.[address] [address] Sep, Other chronic pain 338.[address] [address] Sep, [address] [address] Aug, URI (upper respiratory infection) 465.9 and Diarrhea 787.[address] [address] Aug, [address] [address] Aug, Other chronic pain 338.[address] [address] Aug, Other chronic pain 338.29 and Generalized anxiety disorder 300.[address] [address] Aug, [address] [place] [address] July, Other chronic pain 338.29 [facility] [facility] [address] [facility] [address] [place] [id number] July, Nondependent tobacco use disorder 305.1 ; Unspecified backache 724.5 ; Other chronic pain 338.29 ; Abdominal pain, unspecified site 789.00 ; USP (current) use of opiate analgesic V58.69 and Acquired immune deficiency syndrome 042 [facility] [address] [address] July, Other chronic pain 338.[address] [address] Jun, Other chronic pain 338.[address] [address] Jun, [address] [address] Jun, Other chronic pain 338.[address] [address] Jun, URI (upper respiratory infection) 465.[address] [address] Jun, Generalized anxiety disorder 300.02 and Seasonal allergies 477.[address] [address] Jun, Generalized anxiety disorder 300.02 [facility] [address] [address] May, Other chronic pain 338.[address] [address] May, Other chronic pain 338.29 and Generalized anxiety disorder 300.[address] [address] Apr, Asthma, intrinsic 493.10 and Acute upper respiratory infections of other multiple sites 465.8 [facility] [address] [place] [address] Apr, [facility] [address] [facility] [address] [place], [place] [id number] Apr, Depressive disorder 311 [facility] [address] [place] [address] Apr, Other chronic pain 338.[address] [address] Apr, [address] [address] Apr, Other chronic pain 338.[address] [address] Mar, Acute upper respiratory infections of unspecified site 465.9 [facility] [address] [place] [id number] Mar, Migraine 346.90 ; Nondependent tobacco use disorder 305.1 ; Esophageal reflux 530.81 ; Unspecified backache 724.5 ; Abdominal pain, generalized 789.07 ; Flatulence, eructation, and gas pain 787.3 ; Asymptomatic human immunodeficiency virus (HIV) infection status V08 ; Dyspepsia and other specified disorders of function of stomach 536.8 ; Nausea alone 787.02 and Asthma 493.[address] [address] Mar, Other chronic pain 338.[address] [address] Feb, Other chronic pain 338.29 and Generalized anxiety disorder 300.[address] [address] Feb, Abdominal pain, generalized 789.[address] [address] Jan, Abdominal pain, generalized 789.07 [facility] [address] [id number] Dec, [address] [address] Dec, [address] [address] Dec, Unspecified backache 724.5 [facility] [address] [place] [address] Dec, [facility] [address] [place] [facility] [place] [address] Nov, [facility] [place] [facility] [address] [facility] [address] [place] [id number] Nov, [facility] [address] [facility] [place] [id number] Nov, Bipolar disorder, unspecified 296.80 ; Abdominal pain, generalized 789.07 ; Generalized anxiety disorder 300.02 ; Nausea alone 787.02 ; Flu vaccine need V04.81 and Human immunodeficiency virus (HIV) disease 042 [facility] [address] [place] [facility] [place] [address] Nov, [facility] [place] [facility] [address] [facility] [address] [place] [id number] Oct, [facility] [place] [facility] [address] [facility] [address] [place] [id number] Oct, [facility] [address] [facility] [address] [place] [id number] Aug, [facility] [address] [place] [address] Jun, [facility] [address] [place] [address] Mar, [facility] [address] [place] [address] Oct, [facility] [address] [place] [address] July, [facility] [address] [place] [address] Jun, [facility] [address] [place] [address] May, [facility] [address] [place] [address] Mar, [facility] [address] [place] [address] Feb, [facility] [address] [place] [address] Nov, [facility] [address] [place] [address] Oct, [facility] [address] [place] [address] Aug, [facility] [address] [place] [address] May, [facility] [address] [place] [address] Mar, IMMUNIZATIONS No Known Immunizations SOCIAL HISTORY Never Assessed REASON FOR VISIT Re: RE:Re: RE:Re: RE:Re: RE:Re: RE:Re: RE:Re: RE:Re: RE:Re: RE:Re: RE:Re: RE:Re : RE:Re: RE:RE:RE:Fatigue PLAN OF CARE VITAL SIGNS MEDICATIONS Medication Instructions Dosage Frequency Start Date End Date Duration Status Tramadol HCl 50 MG Orally every 8hrs [...]
[2018-03-22] MEDS ORDERED: KCL 20 MEQ TAB (K-DUR) PO ONE (14:30)
[2018-03-22] MEDS ORDERED: KETOROLAC 30 MG/ML VIAL IVP ONE (14:30)
--- OUTSIDE RECORDS SUMMARY | 2018-03-22 14:31 | XMS REPORT ---
Author Author Dulce Herrera [facility] Address [address] [place], [place] [id number] Care Team Providers Care Mri Technologist Name Role Phone Dulce Herrera Unavailable PROBLEMS Type Condition ICD9-CM Code [id number] Code Onset Dates Condition Status SNOMED Code Problem Bipolar affective disorder F31.9 Active 40485846 Problem Nicotine dependence, cigarettes, uncomplicated F17.210 Active 62712370 Problem senior living (current) use of opiate analgesic Z79.891 Active 632366796 Problem Non-intractable cyclical vomiting with nausea G43.A0 Active 53871663 Problem Poor appetite R63.0 Active 79520801 Problem Wheezing on auscultation R06.2 Active 169605068 Problem Acquired immune deficiency syndrome B20 Active 32382992 Problem Other chronic pain G89.29 Active 32375272 Problem Mood swings F39 Active 56951325 Problem Generalized anxiety disorder F41.1 Active 07165621 Problem GERD (gastroesophageal reflux disease) K21.9 Active 891075995 Problem Mixed hyperlipidemia E78.2 Active 260664529 Problem Intrinsic asthma J45.909 Active 798019740 Problem Migraine G43.909 Active 98208268 Problem Backache M54.9 Active [id number] ALLERGIES No Information ENCOUNTERS Encounter Location Date Diagnosis [facility] [place], [facility] [address], [place] [id number] Sep, [facility] [address] [place] [address] Aug, [facility] [address] [place] [address] Aug, Spider bite T63.301A [facility] [address] [place] [address] Aug, [facility] [address] [place] [address] Aug, [facility] [address] [place], [place] [address] [place] [address] Aug, [facility] [address] [facility] [place] [address] July, [facility] [address] [place] [facility] [place] [address] July, [facility] [address] [place] [facility] [place] [address] July, [facility] [address] [place] [facility] [place] [address] July, [facility] [address] [place] [facility] [place] [address] July, [facility] [address] [place] [facility] [place] [address] July, Poor appetite R63.0 and Backache M54.9 [facility] [address] [place] [facility] [place] [address] July, [facility] [address] [place] [facility] [place] [address] July, [facility] [address] [place] [facility] [place] [address] July, [facility] [address] [place] [facility] [place] [address] July, [facility] [address] [place] [facility] [place] [address] July, [facility] [address] [place] [facility] [place] [address] July, Nausea and vomiting R11.2 [facility] [address] [place] [facility] [place] [address] July, [facility] [address] [place] [facility] [place] [address] July, [facility] [address] [place] [facility] [place] [address] July, [facility] [address] [place] [facility] [place] [address] July, [facility] [address] [place] [facility] [place] [address] July, [facility] [address] [place] [facility] [place] [address] July, Other chronic pain G89.29 [facility] [address] [place] [facility] [place] [address] July, [facility] [address] [place] [facility] [place] [address] July, GERD (gastroesophageal reflux disease) K21.9 [facility] [address] [place] [facility] [place] [address] July, [facility] [address] [facility] [place] [address] Jun, [facility] [address] [facility] [place] [address] Jun, [facility] [address] [facility] [place] [address] Jun, [facility] [address] [place] [facility] [place] [address] Jun, [facility] [address] [facility] [place] [address] Jun, Other chronic pain G89.29 [facility] [address] [place] [facility] [place] [address] Jun, [facility] [address] [facility] [place] [address] Jun, [facility] [address] [place] [facility] [place] [address] Jun, [facility] [address] [place] [facility] [place] [address] Jun, [facility] [address] [place] [facility] [place] [address] Jun, [facility] [address] [place] [facility] [place] [address] Jun, Generalized anxiety disorder F41.1 ; Other chronic pain G89.29 and Non-intractable cyclical vomiting with nausea G43.A0 [facility] [place] [address], [place] [id number] Jun, Acquired immune deficiency syndrome B20 ; senior living ( current) use of opiate analgesic Z79.891 ; Nicotine dependence, cigarettes, uncomplicated F17.210 ; Lower respiratory infection J22 ; Poor appetite R63.0 ; Other chronic pain G89.29 ; Generalized anxiety disorder F41.1 and Need for tetanus booster Z23 [address] [address] Jun, [address] [address] May, Generalized abdominal pain R10.[address] [address] May, [address] [address] Apr, AIDS B20 ; Generalized abdominal pain R10.84 and Dysmenorrhea N94.[address] [address] Apr, Acute URI J06.[address] [address] Apr, [address] [address] Apr, [facility] [place] [address], [place] [id number] Apr, Acquired immune deficiency syndrome B20 ; no experience ( current) use of opiate analgesic Z79.891 and Migraine G43.[address] [address] Mar, Dysmenorrhea N94.[address] [address] Mar, [address] [address] Mar, Generalized anxiety disorder F41.1 and Generalized abdominal pain R10.[address] [address] Mar, [address] [address] Mar, Generalized abdominal pain R10.84 and Generalized anxiety disorder F41.1 [facility] [address] [place] [address] Feb, [facility] [address] [place] [address] Feb, Generalized abdominal pain R10.84 [facility] [address] [place] [address] Jan, Nausea and vomiting R11.2 [facility] [address] [place] [address] 18 Jan, 2017 [facility] [address] [place] [address] Jan, [facility] [address] [place] [address] Jan, [facility] [address] [place] [address] Jan, [facility] [address] [place] [address] Jan, [facility] [address] [place] [address] Jan, Mood swings F39 [facility] [address] [place] [address] Jan, [facility] [address] [place] [address] Jan, [facility] [address] [place] [address] Jan, [facility] [address] [place] [address] Jan, Dysmenorrhea N94.6 [facility] [address] [place] [phone] Jan, Acquired immune deficiency syndrome B20 ; Generalized abdominal pain R10.84 and Refused influenza vaccine Z28.21 [facility] [address] [place] [address] Jan, [facility] [address] [place] [address] Dec, Generalized abdominal pain R10.84 [facility] [address] [place] [address] Dec, Dysmenorrhea N94.6 [facility] [address] [place] [address] Dec, Backache M54.9 [facility] [address] [place] [address] Nov, Generalized abdominal pain R10.[address] [address] Nov, Generalized anxiety disorder F41.[address] [address] Nov, Dysmenorrhea N94.[address] [address] Oct, [facility] [address] [place] [address] Oct, [address] [address] Oct, [address] [address] Oct, Generalized abdominal pain R10.84 [facility] [place] [address], [place] [id number] Oct, Acquired immune deficiency syndrome B20 ; senior living 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 Z79.891 ; Bipolar affective disorder F31.9 ; Generalized anxiety disorder F41.1 ; Backache M54.9 ; Mixed hyperlipidemia E78.2 ; Nicotine dependence, cigarettes, uncomplicated F17.210 and Wheezing on auscultation R06.[address] [address] Oct, Oral candidiasis B37.[address] [address] Oct, [address] [address] Oct, Acute upper respiratory infection J06.[address] [address] Oct, Acute upper respiratory infection J06.9 [facility] [address] [place] [facility] [place] [address] Sep, Dysmenorrhea N94.6 [facility] [address] [place] [facility] [place] [address] Sep, Generalized anxiety disorder F41.1 [facility] [address] [place] [address] Sep, Dysmenorrhea N94.6 [facility] [address] [place] [facility] [place] [address] Sep, [facility] [address] [facility] [place] [address] Sep, Dysmenorrhea N94.6 [facility] [address] [facility] [place] [address] Aug, Acquired immune deficiency syndrome B20 [facility] [address] [place] [address] Aug, Generalized anxiety disorder F41.1 [facility] [address] [place] [facility] [place] [address] Aug, [facility] [address] [place] [address] Aug, [facility] [address] [place] [address] Aug, [facility] [address] [place] [address] Aug, [facility] [address] [place] [address] Aug, [facility] [address] [place] [address] Aug, [facility] [address] [place] [address] Aug, [facility] [address] [place] [address] Aug, Acute opioid withdrawal F11.23 [facility] [address] [place] [address] July, Upper respiratory infection J06.9 [facility] [address] [place] [address] July, Backache M54.9 [facility] [address] [id number] July, Acquired immune deficiency syndrome B20 ; senior living 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 Z79.891 ; Hyperglycemia R73.9 ; Bipolar affective disorder F31.9 ; GERD (gastroesophageal reflux disease) K21.9 ; Backache M54.9 ; Generalized anxiety disorder F41.1 ; Mixed hyperlipidemia E78.2 ; Nicotine dependence, cigarettes, uncomplicated F17.210 and Localized edema R60.[address] [address] July, [address] [address] Jun, Backache M54.[address] [address] Jun, Chronic pain G89.[address] [address] May, Backache M54.[address] [address] May, Backache M54.[address] [address] Apr, Cough R05 [facility] [address] [id number] Apr, Acquired immune deficiency syndrome B20 ; Screening examination for sexually transmitted disease Z11.3 ; Dermatitis L30.9 and Migraine with aura and with status migrainosus, not intractable G43.[address] [address] Apr, Backache M54.[address] [address] Mar, Intrinsic asthma J45.909 ; Nausea and vomiting R11.2 and AIDS B20 [address] [address] Mar, Backache M54.9 [facility] [address] [place] [address] Feb, Chronic pain G89.29 [facility] [address] [place] [address] Feb, Backache M54.9 [facility] [address] [place] [address] Jan, [place] eye, 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 [facility] [address] [place] [address] Jan, Asthma, intrinsic 493.10 [facility] [address] [place] [address] Jan, [facility] [address] [place] [address] Jan, [facility] [address] [place] [address] Jan, Backache M54.9 [facility] [address] [place] [address] Dec, Chronic pain G89.29 [facility] [address] [id number] Dec, AIDS B20 ; Influenza vaccine needed Z23 ; Intrinsic asthma J45.909 ; Backache M54.9 ; Generalized anxiety disorder F41.1 ; Nicotine dependence, cigarettes, uncomplicated F17.210 and Mixed hyperlipidemia E78.[address] [address] Dec, [facility] [address] [place] [address] Dec, Dysmenorrhea N94.6 [facility] [address] [place] [address] Dec, [address] [address] Dec, Depression with anxiety F41.8 and Backache M54.9 [facility] [address] [place] [address] Nov, [address] [address] Nov, Other chronic pain G89.29 [facility] [address] [place] [facility] [place] [address] Nov, Other chronic pain G89.29 [facility] [address] [place] [facility] [place] [address] Nov, [facility] [address] [place] [facility] [place] [address] Nov, Generalized anxiety disorder F41.1 [facility] [address] [place] [facility] [place] [address] Nov, [facility] [address] [place] [facility] [place] [address] Nov, [facility] [address] [place] [facility] [place] [address] Nov, Chronic pain G89.29 [facility] [address] [place] [facility] [place] [address] Oct, [facility] [address] [place] [facility] [place] [address] Oct, Other chronic pain G89.29 [facility] [address] [place] [facility] [place] [address] Oct, [facility] [address] [place] [facility] [place] [address] Oct, [facility] [address] [place] [facility] [place] [address] Oct, Nausea and vomiting R11.2 [facility] [address] [place] [facility] [place] [address] Oct, Chronic pain G89.29 [facility] [address] [place] [facility] [place] [address] Sep, [facility] [address] [place] [facility] [place] [address] Sep, Acute upper respiratory infection, unspecified J06.9 [facility] [address] [place] [facility] [place] [address] Sep, Upper respiratory infection J06.9 [facility] [address] [place] [facility] [place] [address] Sep, [facility] [address] [place] [address] Sep, [facility] [address] [place] [address] Sep, Other chronic pain G89.29 [facility] [address] [facility] [place] [id number] Sep, AIDS B20 ; senior living (current) use of opiate analgesic Z79.891 ; Smoking F17.200 ; Mixed hyperlipidemia E78.2 ; Chronic pain G89.29 and Edema R60.9 [facility] [address] [place] [address] Sep, [facility] [address] [place] [address] Sep, [facility] [address] [place] [address] Aug, [facility] [address] [place] [address] Aug, Other chronic pain G89.29 [facility] [address] [place] [address] Aug, Generalized anxiety disorder F41.1 [facility] [address] [place] [address] July, Other chronic pain G89.29 [facility] [address] [place] [address] July, Other chronic pain G89.29 [facility] [address] [place] [address] July, [facility] [address] [place] [address] Jun, Generalized anxiety disorder F41.1 [facility] [address] [place] [address] Jun, [facility] [address] [place] [address] Jun, Other chronic pain G89.29 [facility] [address] [place] [address] Jun, Rash and other nonspecific skin eruption R21 [facility] [address] [place] [facility] [place] [address] Jun, [facility] [address] [place] [facility] [place] [address] Jun, [facility] [address] [place] [facility] [place] [address] Jun, [facility] [address] [place] [facility] [place] [address] Jun, [facility] [address] [place] [facility] [place] [address] Jun, [facility] [address] [place] [facility] [place] [address] Jun, [facility] [address] [place] [facility] [place] [address] Jun, [facility] [address] [place] [facility] [place] [address] Jun, Other chronic pain G89.29 [facility] [address] [place] [facility] [place] [address] Jun, [facility] [address] [place] [facility] [place] [address] Jun, [facility] [address] [place] [facility] [place] [address] Jun, [facility] [address] [place] [facility] [place] [address] Jun, [facility] [address] [place] [facility] [place] [address] Jun, [facility] [address] [place] [facility] [place] [address] Jun, [facility] [address] [place] [facility] [place] [address] Jun, [facility] [address] [place] [facility] [place] [address] Jun, [facility] [address] [place] [facility] [place] [address] Jun, [facility] [address] [facility] [place] [address] Jun, Nausea and vomiting R11.2 [facility] [address] [place] [address] May, [facility] [address] [place] [address] May, Rash and other nonspecific skin eruption R21 [facility] [address] [place] [address] May, [facility] [address] [place] [address] May, [facility] [address] [place] [address] May, [facility] [address] [place] [address] May, [facility] [address] [place] [address] May, [facility] [place] [address] [place] [phone] May, Acquired immune deficiency syndrome B20 ; Screening examination for sexually transmitted disease Z11.3 ; Depression with anxiety F41.8 ; Other chronic pain G89.29 and Dermatitis L30.9 [facility] [address] [place] [address] May, [facility] [address] [place] [address] May, [facility] [address] [place] [address] May, [facility] [address] [place] [address] May, Backache M54.9 [facility] [address] [place] [address] May, Rash and other nonspecific skin eruption R21 [facility] [address] [place] [address] Apr, [facility] [address] [place] [address] Apr, [facility] [address] [place] [address] Apr, Other chronic pain G89.29 [facility] [address] [facility] [place] [address] Apr, [facility] [address] [place] [facility] [place] [address] Apr, [facility] [address] [place] [facility] [place] [address] Apr, [facility] [address] [place] [facility] [place] [address] Apr, [facility] [address] [place] [facility] [place] [address] Apr, [facility] [address] [place] [facility] [place] [address] Apr, [facility] [address] [place] [facility] [place] [address] Apr, [facility] [address] [place] [facility] [place] [address] Apr, [facility] [address] [place] [facility] [place] [address] Apr, [facility] [address] [place] [facility] [place] [address] Apr, [facility] [address] [place] [facility] [place] [address] Apr, Other chronic pain G89.29 ; Generalized anxiety disorder F41.1 ; Nausea R11.0 and AIDS B20 [facility] [address] [place] [address] Apr, [facility] [address] [facility] [place] [address] Apr, Generalized anxiety disorder F41.1 [facility] [address] [place] [address] Apr, [facility] [address] [place] [facility] [place] [address] Apr, Other chronic pain G89.29 [facility] [address] [place] [facility] [place] [address] Mar, [facility] [place] [address] [facility] [place] [id number] Mar, no experience (current) use of opiate analgesic Z79.891 ; Bipolar affective disorder F31.9 ; Smoking F17.200 ; Generalized anxiety disorder F41.1 ; Influenza vaccine administered Z23 and AIDS B20 [facility] [address] [place] [address] Mar, Other chronic pain G89.29 [facility] [address] [place] [address] Mar, Generalized anxiety disorder F41.[address] [address] Mar, [address] [address] Mar, Asymptomatic HIV infection Z21 [address] [address] Mar, Other chronic pain G89.[address] [address] Feb, [facility] [address] [place] [address] Feb, [address] [address] Feb, [address] [address] Feb, [address] [address] Feb, [facility] [address] [place] [address] Jan, Other chronic pain G89.29 and Nausea & vomiting R11.[address] [address] Jan, Other chronic pain G89.29 [facility] [address] [place] [address] Dec, [facility] [address] [place] [address] Dec, Other chronic pain G89.29 ; Asymptomatic HIV infection Z21 ; Intrinsic asthma J45.909 ; Bipolar affective disorder F31.9 ; Noncompliance Z91.19 ; Migraine G43.909 ; Tobacco use disorder Z72.0 ; GERD (gastroesophageal reflux disease) K21.9 ; Backache M54.9 and Generalized anxiety disorder F41.[address] [address] Nov, [address] [address] Nov, [address] [address] Oct, Other chronic pain 338.[address] [address] Oct, [address] [address] Oct, Unspecified backache 724.5 and Dysphagia 787.[address] [address] Sep, Other chronic pain 338.[address] [address] Sep, [address] [address] Aug, URI (upper respiratory infection) 465.9 and Diarrhea 787.[address] [address] Aug, [address] [address] Aug, Other chronic pain 338.[address] [address] Aug, Other chronic pain 338.29 and Generalized anxiety disorder 300.[address] [address] Aug, [address] [address] July, Other chronic pain 338.29 [facility] [place] [address] [facility] [place] [id number] July, Nondependent tobacco use disorder 305.1 ; Unspecified backache 724.5 ; Other chronic pain 338.29 ; Abdominal pain, unspecified site 789.00 ; senior living (current) use of opiate analgesic V58.69 and Acquired immune deficiency syndrome [address] [address] July, Other chronic pain 338.29 [facility] [address] [place] [address] Jun, Other chronic pain 338.[address] [address] Jun, [address] [address] Jun, Other chronic pain 338.[address] [address] Jun, URI (upper respiratory infection) 465.[address] [address] Jun, Generalized anxiety disorder 300.02 and Seasonal allergies 477.[address] [address] Jun, Generalized anxiety disorder 300.[address] [address] May, Other chronic pain 338.[address] [address] May, Other chronic pain 338.29 and Generalized anxiety disorder [address] [address] Apr, Asthma, intrinsic 493.10 and Acute upper respiratory infections of other multiple sites 465.[address] [address] Apr, [facility] [address] [facility] [address] [place], [place] [id number] Apr, Depressive disorder [address] [place] [address] Apr, Other chronic pain 338.[address] [address] Apr, [address] [address] Apr, Other chronic pain 338.[address] [address] Mar, Acute upper respiratory infections of unspecified site 465.9 [facility] [address] [place] [id number] Mar, Migraine 346.90 ; Nondependent tobacco use disorder 305.1 ; Esophageal reflux 530.81 ; Unspecified backache 724.5 ; Abdominal pain, generalized 789.07 ; Flatulence, eructation, and gas pain 787.3 ; Asymptomatic human immunodeficiency virus (HIV) infection status V08 ; Dyspepsia and other specified disorders of function of stomach 536.8 ; Nausea alone 787.02 and Asthma 493.[address] [address] Mar, Other chronic pain 338.[address] [address] Feb, Other chronic pain 338.29 and Generalized anxiety disorder 300.[address] [address] Feb, Abdominal pain, generalized 789.[address] [address] Jan, Abdominal pain, generalized 789.07 [facility] [address] [place] [id number] Dec, [address] [address] Dec, [address] [address] Dec, Unspecified backache 724.[address] [address] Dec, [place] [id number] [facility] [place] [address] Nov, [facility] [place] [facility] [address] [facility] [address] [place] [id number] Nov, [facility] [place] [address] [facility] [place] [id number] Nov, Bipolar disorder, unspecified 296.80 ; Abdominal pain, generalized 789.07 ; Generalized anxiety disorder 300.02 ; Nausea alone 787.02 ; Flu vaccine need V04.81 and Human immunodeficiency virus (HIV) disease 042 [facility] [address] [facility] [place] [address] Nov, [facility] [place] [facility] [address] [facility] [address] [place] [id number] Oct, [facility] [place] [facility] [address] [facility] [address] [place] [id number] Oct, [facility] [place] [facility] [address] [facility] [address] [place], [place] [id number] Aug, [facility] [address] [facility] [place] [address] Jun, [facility] [address] [facility] [place] [address] Mar, [facility] [address] [facility] [place] [address] Oct, [facility] [address] [facility] [place] [address] July, [facility] [address] [facility] [place] [address] Jun, [facility] [address] [facility] [place] [address] May, [facility] [address] [facility] [place] [address] Mar, [facility] [address] [facility] [place] [address] Feb, [facility] [address] [facility] [place] [address] Nov, [facility] [address] [facility] [place] [address] Oct, [facility] [address] [facility] [place] [address] Aug, [facility] [address] [place] [facility] [place] [address] May, [facility] [address] [place] [facility] [place] [address] Mar, IMMUNIZATIONS No Known Immunizations SOCIAL HISTORY Never Assessed REASON FOR VISIT Spider bite worse PLAN OF CARE VITAL SIGNS MEDICATIONS Unknown [...]
--- OUTSIDE RECORDS SUMMARY | 2018-03-22 14:32 | XMS REPORT | Continuity of Care Document ---
Author Author [facility] Address Unknown Phone Unavailable Allergies Active Description Code Type Severity Reaction Onset Reported/Identified Relationship to Patient Clinical Status Yes NKDA NKDA Mild N/ A 08/14/2008 Yes aspirin [id number] Drug Allergy Severe ITCHING 06/08/2011 Yes oxycodone HCl [id number] Drug Allergy Severe ITCHING 06/08/2011 Yes Oxycodone Terephthalate [id number] Drug Allergy Severe ITCHING 06/08/2011 Yes Percocet Drug Allergy N/A N/A 11/23/2013 Yes aspirin NKMA N/A N /A 03/20/2015 Yes oxyCODONE NKMA N/A N/A 03/20/2015 Yes No Known Drug Allergies [id number] Drug Allergy Unknown N/A 11/11/2016 Medications There is no data. Problems Date Dx Coded Attending Type Code Diagnosis Diagnosed By 12/13/2007 V58.69 MEDICATION HIGH RISK 12/13/2007 V58.69 MEDICATION HIGH RISK 12/13/2007 V58.69 MEDICATION HIGH RISK 12/13/2007 V58.69 MEDICATION HIGH RISK 12/13/2007 SHANTA MARQUEZ APRN V58.69 MEDICATION HIGH RISK 12/13/2007 RIANNA ROGEL APRN A V58.69 MEDICATION HIGH RISK 12/13/2007 ELIA MURILLO MD V58.69 MEDICATION HIGH RISK 12/13/2007 V58.69 MEDICATION HIGH RISK 07/04/2009 Ot 789.01 10/12/2009 Ot 789.09 10/16/2009 Ot 276.8 10/16/2009 Ot 787.03 10/16/2009 Ot 787.91 10/16/2009 Ot 843.9 10/16/2009 Ot E000.8 10/16/2009 Ot E927.8 11/08/2009 Ot 845.10 11/08/2009 Ot 959.7 11/08/2009 Ot E000.8 11/08/2009 Ot E849.0 11/08/2009 Ot E928.9 12/24/2009 Ot 836.2 12/24/2009 Ot 959.7 12/24/2009 Ot E000.8 12/24/2009 Ot E814.7 04/30/2010 Ot 382.9 04/30/2010 Ot 462 04/30/2010 Ot 490 04/30/2010 Ot 786.2 11/11/2010 Ot 574.00 CHOLELITH W AC CHOLECYST 11/11/2010 Ot 574.10 CHOLELITH W CHOLECYS NEC 11/11/2010 Ot 575.3 HYDROPS OF GALLBLADDER 11/11/2010 Ot V08 ASYMPTOMATIC HUMAN IMMUNODEF VIRUS INFEC 11/11/2010 Ot 338.18 11/11/2010 Ot 789.00 11/12/2010 Ot 338.18 11/12/2010 Ot 787.02 11/12/2010 Ot 789.00 11/28/2010 Ot 276.1 11/28/2010 Ot 276.8 11/28/2010 Ot 573.8 11/28/2010 Ot 782.4 11/28/2010 Ot 789.03 11/28/2010 Ot 789.59 11/28/2010 Ot 790.5 11/28/2010 Ot V08 11/28/2010 Ot V45.89 04/24/2011 Ot 305.1 TOBACCO USE DISORDER 04/24/2011 Ot 466.0 ACUTE BRONCHITIS 04/24/2011 Ot 493.90 ASTHMA, UNSPECIFIED 04/24/2011 Ot 786.2 COUGH 06/08/2011 Ot 346.90 MIGRAINE UNSPECIFIED W/O INTRACT MGRN W/ 06/08/2011 Ot 784.0 HEADACHE 06/08/2011 Ot 787.03 VOMITING ALONE 11/20/2011 Ot 305.1 TOBACCO USE DISORDER 11/20/2011 Ot 573.3 HEPATITIS NOS 11/20/2011 Ot 789.59 OTHER ASCITES 11/20/2011 Ot V08 ASYMPTOMATIC HUMAN IMMUNODEF VIRUS INFEC 05/27/2012 Ot 564.00 UNSPEC CONSTIPATION 05/27/2012 Ot 789.00 ABDOMINAL PAIN, UNSPECIFIED SITE 06/02/2012 Ot 218.9 UTERINE LEIOMYOMA NOS 06/02/2012 Ot 789.00 ABDOMINAL PAIN, UNSPECIFIED SITE 06/02/2012 Ot 789.1 HEPATOMEGALY 06/02/2012 Ot 789.2 SPLENOMEGALY 11/02/2012 706.2 SEBACEOUS CYST 11/02/2012 706.2 SEBACEOUS CYST 11/02/2012 706.2 SEBACEOUS CYST 11/02/2012 SHANTA MARQUEZ APRN R 706.2 SEBACEOUS CYST 11/02/2012 RIANNA ROGEL APRN A 706.2 SEBACEOUS CYST 11/02/2012 ELIA MURILLO MD 706.2 SEBACEOUS CYST 11/02/2012 706.2 SEBACEOUS CYST 11/22/2012 V58.32 SUTURE REMOVAL 11/22/2012 SHANTA MARQUEZ APRN V58.32 SUTURE REMOVAL 11/22/2012 RIANNA ROGEL APRN V58.32 SUTURE REMOVAL 11/22/2012 ELIA MURILLO MD V58.32 SUTURE REMOVAL 11/22/2012 V58.32 SUTURE REMOVAL 11/23/2013 SHANTA MARQUEZ APRN R 626.2 EXCESSIVE OR FREQUENT MENSTRUATION 11/23/2013 SHANTA MARQUEZ APRN R 789.09 ABDOMINAL PAIN OTHER SPECIFIED SITE 11/23/2013 RIANNA ROGEL APRN A 626.2 EXCESSIVE OR FREQUENT MENSTRUATION 11/23/2013 RIANNA ROGEL APRN A 789.09 ABDOMINAL PAIN OTHER SPECIFIED SITE 11/23/2013 ELIA MURILLO MD N 626.2 EXCESSIVE OR FREQUENT MENSTRUATION 11/23/2013 ELIA MURILLO MD N 789.09 ABDOMINAL PAIN OTHER SPECIFIED SITE 11/23/2013 626.2 EXCESSIVE OR FREQUENT MENSTRUATION 11/23/2013 789.09 ABDOMINAL PAIN OTHER SPECIFIED SITE 11/30/2013 RIANNA ROGEL APRN 621.2 HYPERTROPHY OF UTERUS 11/30/2013 RIANNA ROGEL APRN 625.3 DYSMENORRHEA 11/30/2013 RIANNA ROGEL APRN 782.9 OTHER SYMPTOMS INVOLVING SKIN AND INTEGUMENTARY TISSUES 11/30/2013 RIANNA ROGEL APRN 789.33 ABDOMINAL OR PELVIC SWELLING MASS OR LUMP RIGHT LOWER QUADRANT 11/30/2013 RIANNA ROGEL APRN V16.41 FAM HX CANCER, OVARY 11/30/2013 RIANNA ROGEL APRN V72.31 WIND FARM SUPPORT SPECIALIST EXAM, ROUTINE 11/30/2013 RIANNA ROGEL APRN V73.81 HPV SCREENING 11/30/2013 RIANNA ROGEL APRN V76.10 BREAST CANCER SCREENING 11/30/2013 RIANNA ROGEL APRN V76.2 CERVICAL CANCER SCREENING (PAP SMEAR) 11/30/2013 ELIA MURILLO MD 621.2 HYPERTROPHY OF UTERUS 11/30/2013 ELIA MURILLO MD 625.3 DYSMENORRHEA 11/30/2013 ELIA MURILLO MD 782.9 OTHER SYMPTOMS INVOLVING SKIN AND INTEGUMENTARY TISSUES 11/30/2013 ELIA MURILLO MD 789.33 ABDOMINAL OR PELVIC SWELLING MASS OR LUMP RIGHT LOWER QUADRANT 11/30/2013 ELIA MURILLO MD V16.41 FAM HX CANCER, OVARY 11/30/2013 ELIA MURILLO MD V72.31 WIND FARM SUPPORT SPECIALIST EXAM, ROUTINE 11/30/2013 ELIA MURILLO MD V73.81 HPV SCREENING 11/30/2013 ELIA MURILLO MD V76.10 BREAST CANCER SCREENING 11/30/2013 ELIA MURILLO MD V76.2 CERVICAL CANCER SCREENING (PAP SMEAR) 11/30/2013 621.2 HYPERTROPHY OF UTERUS 11/30/2013 625.3 DYSMENORRHEA 11/30/2013 782.9 OTHER SYMPTOMS INVOLVING SKIN AND INTEGUMENTARY TISSUES 11/30/2013 789.33 ABDOMINAL OR PELVIC SWELLING MASS OR LUMP RIGHT LOWER QUADRANT 11/30/2013 V16.41 FAM HX CANCER , OVARY 11/30/2013 V72.31 WIND FARM SUPPORT SPECIALIST EXAM, ROUTINE 11/30/2013 V73.81 HPV SCREENING 11/30/2013 V76.10 BREAST CANCER SCREENING 11/30/2013 V76.2 CERVICAL CANCER SCREENING (PAP SMEAR) 12/06/2013 RIANNA ROGEL APRN 042 HIV INFECTION 12/06/2013 ELIA MURILLO MD 042 HIV INFECTION 12/06/2013 042 HIV INFECTION 12/09/2013 ELIA MURILLO MD 079.4 HPV 12/09/2013 ELIA MURILLO MD 795.01 ABNORMAL PAP - ASCUS 12/09/2013 079.4 HPV 12/09/2013 795.01 ABNORMAL PAP - ASCUS 12/12/2013 LIDIA OLIVER, ELIA N 219.9 UTERINE FIBROID 12/12/2013 219.9 UTERINE FIBROID 05/08/2014 RIANNA ROGEL POLICE COMMANDING OFFICER Ot 611.79 05/08/2014 RIANNA ROGEL POLICE COMMANDING OFFICER Ot 621.2 05/08/2014 RIANNA ROGEL POLICE COMMANDING OFFICER Ot 626.2 05/08/2014 RIANNA ROGEL POLICE COMMANDING OFFICER Ot V16.41 07/18/2014 RIANNA ROGEL POLICE COMMANDING OFFICER Ot 611.79 07/18/2014 RIANNA ROGEL POLICE COMMANDING OFFICER Ot 621.2 07/18/2014 RIANNA ROGEL POLICE COMMANDING OFFICER Ot 626.2 07/18/2014 RIANNA ROGEL POLICE COMMANDING OFFICER Ot V16.41 08/02/2014 Ot 789.00 08/02/2014 Ot 789.59 08/02/2014 Ot 787.3 08/02/2014 Ot 789.00 08/02/2014 RIANNA ROGEL POLICE COMMANDING OFFICER Ot 611.79 08/02/2014 RIANNA ROGEL POLICE COMMANDING OFFICER Ot 621.2 08/02/2014 RIANNA ROGEL POLICE COMMANDING OFFICER Ot 626.2 08/02/2014 RIANNA ROGEL POLICE COMMANDING OFFICER Ot V16.41 03/19/2015 Ot 789.59 03/19/2015 Ot 787.3 03/19/2015 Ot 789.00 03/19/2015 Ot 789.59 03/19/2015 Ot 787.3 03/19/2015 Ot 789.00 03/19/2015 CLARIBEL OLIVER, CRISTAL Garcia Ot 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 03/19/2015 CLARIBEL OLIVER, CRISTAL Garcia Ot G93.49 OTHER ENCEPHALOPATHY 03/19/2015 CRISTAL SANFORD MD Ot R29.6 REPEATED FALLS 03/19/2015 CRISTAL SANFORD MD Ot R41.82 ALTERED MENTAL STATUS, UNSPECIFIED 03/19/2015 CRISTAL SANFORD MD Ot Z91.14 PATIENT'S OTHER NONCOMPLIANCE WITH MEDIC 04/13/2015 Ot 789.59 04/13/2015 Ot 787.3 04/13/2015 Ot 789.00 09/14/2016 Ot 787.3 FLATUL/ ERUCTAT/GAS PAIN 09/14/2016 Ot 789.00 ABDOMINAL PAIN, UNSPECIFIED SITE 09/14/2016 LOU LC Shawna Ot F15.90 OTHER STIMULANT USE, UNSPECIFIED, UNCOMP 09/14/2016 LOU LC Matos Ot F17.210 NICOTINE DEPENDENCE, CIGARETTES, UNCOMPL 09/14/2016 LOU DO LC Matos Ot J45.909 UNSPECIFIED ASTHMA, UNCOMPLICATED 09/14/2016 LOU DO, LC K Ot K42.9 UMBILICAL HERNIA WITHOUT OBSTRUCTION OR 09/14/2016 LOU DO, LC K Ot N85.8 OTHER SPECIFIED NONINFLAMMATORY DISORDER 09/14/2016 LOU DO LC K Ot N92.1 EXCESSIVE AND FREQUENT MENSTRUATION WITH 09/14/2016 LOU DO, LC K Ot N94.6 DYSMENORRHEA, UNSPECIFIED 09/14/2016 LOU DO LC K Ot R10.30 LOWER ABDOMINAL PAIN, UNSPECIFIED 09/14/2016 LOU LC Shawna Ot Z21 ASYMPTOMATIC HUMAN IMMUNODEFICIENCY VIRU 09/14/2016 LOU LC K Ot Z87.19 PERSONAL HISTORY OF OTHER DISEASES OF TH 09/14/2016 LOU CARMEN LC Shawna Ot Z90.49 ACQUIRED ABSENCE OF OTHER SPECIFIED PART 09/14/2016 LOU DO LC Shawna Ot Z98.51 TUBAL LIGATION STATUS 09/17/2016 LOU LC Matos Ot F15.90 OTHER STIMULANT USE, UNSPECIFIED, UNCOMP 09/17/2016 LOU LC Matos Ot F17.210 NICOTINE DEPENDENCE, CIGARETTES, UNCOMPL 09/17/2016 LOU LC Shawna Ot J45.909 UNSPECIFIED ASTHMA, UNCOMPLICATED 09/17/2016 LOU LC K Ot K42.9 UMBILICAL HERNIA WITHOUT OBSTRUCTION OR 09/17/2016 LOU DO LC K Ot N85.8 OTHER SPECIFIED NONINFLAMMATORY DISORDER 09/17/2016 LOU DO LC K Ot N92.1 EXCESSIVE AND FREQUENT MENSTRUATION WITH 09/17/2016 LOU DO LC K Ot N94.6 DYSMENORRHEA, UNSPECIFIED 09/17/2016 LOU DO LC K Ot R10.30 LOWER ABDOMINAL PAIN, UNSPECIFIED 09/17/2016 LC BLAKE DO Ot Z21 ASYMPTOMATIC HUMAN IMMUNODEFICIENCY VIRU 09/17/2016 LC BLAKE DO Ot Z87.19 PERSONAL HISTORY OF OTHER DISEASES OF 09/17/2016 LC BLAKE DO Ot Z90.49 ACQUIRED ABSENCE OF OTHER SPECIFIED PART 09/17/2016 LC BLAKE DO Ot Z98.51 TUBAL LIGATION STATUS 10/13/2016 CRISTAL SANFORD MD, Ot J45.909 UNSPECIFIED ASTHMA, UNCOMPLICATED 10/13/2016 CRISTAL SANFORD MD, Ot N94.6 DYSMENORRHEA, UNSPECIFIED 10/13/2016 CRISTAL SANFORD MD, Ot R10.32 LEFT LOWER QUADRANT PAIN 10/13/2016 CRISTAL SANFORD MD, Ot 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 ASYMPTOMATIC HUMAN IMMUNODEFICIENCY VIRU 10/13/2016 CRISTAL SANFORD MD, Ot Z77.22 CNTCT W AND EXPSR TO ENVIRON TOBACCO SMO 10/13/2016 CRISTAL SANFORD MD, Ot Z87.19 PERSONAL HISTORY OF OTHER DISEASES OF 10/13/2016 CRISTAL SANFORD MD, Ot Z87.42 PERSONAL HISTORY OF OTH DISEASES OF THE 10/13/2016 CRISTAL SANFORD MD, Ot Z90.49 ACQUIRED ABSENCE OF OTHER SPECIFIED PART 10/13/2016 CRISTAL SANFORD MD, Ot Z98.51 TUBAL LIGATION STATUS 10/13/2016 Ot 787.3 FLATUL/ ERUCTAT/GAS PAIN 10/13/2016 Ot 789.00 ABDOMINAL PAIN, UNSPECIFIED SITE 10/15/2016 CRISTAL SANFORD MD, Ot J45.909 UNSPECIFIED ASTHMA, UNCOMPLICATED 10/15/2016 CRISTAL SANFORD MD, Ot N94.6 DYSMENORRHEA, UNSPECIFIED 10/15/2016 CRISTAL SANFORD MD, Ot R10.32 LEFT LOWER QUADRANT PAIN 10/15/2016 CRISTAL SANFORD MD, Ot Z21 ASYMPTOMATIC HUMAN IMMUNODEFICIENCY VIRU 10/15/2016 CRISTAL SANFORD MD, Ot Z77.22 CNTCT W AND EXPSR TO ENVIRON TOBACCO SMO 10/15/2016 CRISTAL SANFORD MD, Ot Z87.19 PERSONAL HISTORY OF OTHER DISEASES OF 10/15/2016 CRISTAL SANFORD MD, Ot Z87.42 PERSONAL HISTORY OF OTH DISEASES OF THE 10/15/2016 CRISTAL SANFORD MD, Ot Z90.49 ACQUIRED ABSENCE OF OTHER SPECIFIED PART 10/15/2016 CRISTAL SANFORD MD, Ot Z98.51 TUBAL LIGATION STATUS 10/17/2016 LUMA SIMMONS APRN Ot J30.2 OTHER SEASONAL ALLERGIC RHINITIS 10/17/2016 LUMA SIMMONS APRN Ot J45.909 UNSPECIFIED ASTHMA, UNCOMPLICATED 10/17/2016 LUMA SIMMONS APRN Ot Z72.0 TOBACCO USE 10/19/2016 CRISTAL SANFORD MD, Ot J45.909 UNSPECIFIED ASTHMA, UNCOMPLICATED 10/19/2016 CRISTAL SANFORD MD, Ot N94.6 DYSMENORRHEA, UNSPECIFIED 10/19/2016 CRISTAL SANFORD MD, Ot R10.32 LEFT LOWER QUADRANT PAIN 10/19/2016 CRSITAL SANFORD MD, Ot Z21 ASYMPTOMATIC HUMAN IMMUNODEFICIENCY VIRU 10/19/2016 CRISTAL SANFORD MD, Ot Z77.22 CNTCT W AND EXPSR TO ENVIRON TOBACCO SMO 10/19/2016 CRISTAL SANFORD MD, Ot Z87.19 PERSONAL HISTORY OF OTHER DISEASES OF TH 10/19/2016 CRISTAL SANFORD MD, Ot Z87.42 PERSONAL HISTORY OF OTH DISEASES OF THE 10/19/2016 CRISTAL SANFORD MD Ot Z90.49 ACQUIRED ABSENCE OF OTHER SPECIFIED PART 10/19/2016 CRISTAL SANFORD MD, Ot Z98.51 TUBAL LIGATION STATUS 10/20/2016 JAKY RUIZ MD Ot K43.9 VENTRAL HERNIA WITHOUT OBSTRUCTION OR GA 10/20/2016 JAKY RUIZ MD Ot Z01.812 ENCOUNTER FOR PREPROCEDURAL LABORATORY E 10/20/2016 JAKY RUIZ MD Ot Z11.2 ENCOUNTER FOR SCREENING FOR OTHER BACTER 10/29/2016 Ot 787.3 FLATUL/ ERUCTAT/GAS PAIN 10/29/2016 Ot 789.00 ABDOMINAL PAIN, UNSPECIFIED SITE 10/29/2016 LUMA SIMMONS APRN Ot J30.2 OTHER SEASONAL ALLERGIC RHINITIS 10/29/2016 LUMA SIMMONS APRN Ot J45.909 UNSPECIFIED ASTHMA, UNCOMPLICATED 10/29/2016 LUMA SIMMONS POLICE COMMANDING OFFICER Ot Z72.0 TOBACCO USE 11/05/2016 LUMA SIMMONS POLICE COMMANDING OFFICER Ot J30.2 OTHER SEASONAL ALLERGIC RHINITIS 11/05/2016 LUMA SIMMONS POLICE COMMANDING OFFICER Ot J45.909 UNSPECIFIED ASTHMA, UNCOMPLICATED 11/05/2016 LUMA SIMMONS POLICE COMMANDING OFFICER Ot Z72.0 TOBACCO USE 11/12/2016 LUMA SIMMONS POLICE COMMANDING OFFICER Ot J30.2 OTHER SEASONAL ALLERGIC RHINITIS 11/12/2016 LUMA SIMMONS POLICE COMMANDING OFFICER Ot J45.909 UNSPECIFIED ASTHMA, UNCOMPLICATED 11/12/2016 LUMA SIMMONS POLICE COMMANDING OFFICER Ot R06.2 WHEEZING 11/12/2016 LUMA SIMMONS POLICE COMMANDING OFFICER Ot Z72.0 TOBACCO USE 11/19/2016 JAKY RUIZ MD, Ot K43.9 VENTRAL HERNIA WITHOUT OBSTRUCTION OR GA 11/19/2016 JAKY RUIZ MD Ot N85.2 HYPERTROPHY OF UTERUS 11/19/2016 JAKY RUIZ MD, Ot N92.1 EXCESSIVE AND FREQUENT MENSTRUATION WITH 11/19/2016 JAKY RUIZ MD Ot Z01.818 ENCOUNTER FOR OTHER PREPROCEDURAL EXAMIN 11/29/2016 JAKY RUIZ MD Ot 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 11/29/2016 JAKY RUIZ MD, Ot D25.1 INTRAMURAL LEIOMYOMA OF UTERUS 11/29/2016 JAKY RUIZ MD Ot F17.210 NICOTINE DEPENDENCE, CIGARETTES, UNCOMPL 11/29/2016 JAKY RUIZ MD, Ot J45.909 UNSPECIFIED ASTHMA, UNCOMPLICATED 11/29/2016 JAKY RUIZ MD, Ot K43.9 VENTRAL HERNIA WITHOUT OBSTRUCTION OR GA 11/29/2016 JAKY RUIZ MD, Ot N72 INFLAMMATORY DISEASE OF CERVIX UTERI 11/29/2016 JAKY RUIZ MD, Ot N80.0 ENDOMETRIOSIS OF UTERUS 11/29/2016 JAKY RUIZ MD Ot N83.11 CORPUS LUTEUM CYST OF RIGHT OVARY 11/29/2016 JAKY RUIZ MD, Ot N83.8 OT NONINFLAMMATORY DISORD OF OVARY, FAL 11/29/2016 JAKY RUIZ MD, Ot N92.1 EXCESSIVE AND FREQUENT MENSTRUATION WITH 11/29/2016 JAKY RUIZ MD, Ot R10.2 PELVIC AND PERINEAL PAIN 12/04/2016 JAKY RUIZ MD, Ot 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 12/04/2016 JAKY RUIZ MD, Ot D25.1 INTRAMURAL LEIOMYOMA OF UTERUS 12/04/2016 JAKY RUIZ MD, Ot F17.210 NICOTINE DEPENDENCE, CIGARETTES, UNCOMPL 12/04/2016 JAKY RUIZ MD, Ot J45.909 UNSPECIFIED ASTHMA, UNCOMPLICATED 12/04/2016 JAKY RUIZ MD, Ot K43.9 VENTRAL HERNIA WITHOUT OBSTRUCTION OR GA 12/04/2016 JAKY RUIZ MD, Ot N72 INFLAMMATORY DISEASE OF CERVIX UTERI 12/04/2016 JAKY RUIZ MD, Ot N80.0 ENDOMETRIOSIS OF UTERUS 12/04/2016 JAKY RUIZ MD, Ot N83.11 CORPUS LUTEUM CYST OF RIGHT OVARY 12/04/2016 JAKY RUIZ MD, Ot N83.8 OT NONINFLAMMATORY DISORD OF OVARY, FAL 12/04/2016 JAKY RUIZ MD, Ot N92.1 EXCESSIVE AND FREQUENT MENSTRUATION WITH 12/04/2016 JAKY RUIZ MD, Ot R10.2 PELVIC AND PERINEAL PAIN 12/10/2016 JAKY RUIZ MD, Ot 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 12/10/2016 JAKY RUIZ MD, Ot D25.1 INTRAMURAL LEIOMYOMA OF UTERUS 12/10/2016 JAKY RUIZ MD, Ot F17.210 NICOTINE DEPENDENCE, CIGARETTES, UNCOMPL 12/10/2016 JAKY RUIZ MD, Ot J45.909 UNSPECIFIED ASTHMA, UNCOMPLICATED 12/10/2016 JAKY RUIZ MD, Ot K43.9 VENTRAL HERNIA WITHOUT OBSTRUCTION OR GA 12/10/2016 JAKY RUIZ MD, Ot N72 INFLAMMATORY DISEASE OF CERVIX UTERI 12/10/2016 JAKY RUIZ MD, Ot N80.0 ENDOMETRIOSIS OF UTERUS 12/10/2016 JAKY RUIZ MD, Ot N83.11 CORPUS LUTEUM CYST OF RIGHT OVARY 12/10/2016 JAKY RUIZ MD, Ot N83.8 OTH NONINFLAMMATORY DISORD OF OVARY, FAL 12/10/2016 JAKY RUIZ MD, Ot N92.1 EXCESSIVE AND FREQUENT MENSTRUATION WITH 12/10/2016 JAKY RUIZ MD, Ot R10.2 PELVIC AND PERINEAL PAIN 12/10/2016 JAYK RUIZ MD, Ot 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 12/10/2016 JAKY RUIZ MD, Ot D25.1 INTRAMURAL LEIOMYOMA OF UTERUS 12/10/2016 JAKY RUIZ MD, Ot F17.210 NICOTINE DEPENDENCE, CIGARETTES, UNCOMPL 12/10/2016 JAKY RUIZ MD, Ot J45.909 UNSPECIFIED ASTHMA, UNCOMPLICATED 12/10/2016 JAKY RUIZ MD, Ot K43.9 VENTRAL HERNIA WITHOUT OBSTRUCTION OR GA 12/10/2016 JAKY RUIZ MD, Ot N72 INFLAMMATORY DISEASE OF CERVIX UTERI 12/10/2016 JAKY RUIZ MD, Ot N80.0 ENDOMETRIOSIS OF UTERUS 12/10/2016 JAKY RUIZ MD, Ot N83.11 CORPUS LUTEUM CYST OF RIGHT OVARY 12/10/2016 JAKY RUIZ MD, Ot N83.8 OTH NONINFLAMMATORY DISORD OF OVARY, FAL 12/10/2016 JAKY RUIZ MD, Ot N92.1 EXCESSIVE AND FREQUENT MENSTRUATION WITH 12/10/2016 JAKY RUIZ MD, Ot R10.2 PELVIC AND PERINEAL PAIN 08/18/2017 CARMELA BRASHER MD Ot D70.9 NEUTROPENIA, UNSPECIFIED 08/18/2017 CARMELA BRASHER MD Ot F41.9 ANXIETY DISORDER, UNSPECIFIED 08/18/2017 CARMELA BRASHER MD Ot G43.909 MIGRAINE, UNSP, NOT INTRACTABLE, WITHOUT 08/18/2017 CARMELA BRASHER MD Ot J45.909 UNSPECIFIED ASTHMA, UNCOMPLICATED 08/18/2017 CARMELA BRASHER MD Ot S90.862A INSECT BITE (NONVENOMOUS), LEFT FOOT, IN 08/18/2017 CARMELA BRASHER MD Ot W57.XXXA BIT/STUNG BY NONVENOM INSECT OTH NONVE 08/18/2017 CARMELA BRASHER MD Ot Z21 ASYMPTOMATIC HUMAN IMMUNODEFICIENCY VIRU 08/18/2017 CARMELA BRASHER MD Ot Z77.22 CNTCT W AND EXPSR TO ENVIRON TOBACCO SMO 08/18/2017 CARMELA BRASHER MD Ot Z87.19 PERSONAL HISTORY OF OTHER DISEASES OF 08/18/2017 CARMELA BRASHER MD Ot Z98.51 TUBAL LIGATION STATUS 08/19/2017 VINITA GREER APRN Ot F41.9 ANXIETY DISORDER, UNSPECIFIED 08/19/2017 VINITA GREER APRN Ot G43.909 MIGRAINE, UNSP, NOT INTRACTABLE, WITHOUT 08/19/2017 VINITA GREER APRN Ot J45.909 UNSPECIFIED ASTHMA, UNCOMPLICATED 08/19/2017 VINITA GREER APRN Ot 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 08/19/2017 VINITA GREER APRN Ot Z77.22 CNTCT W AND EXPSR TO ENVIRON TOBACCO SMO 08/19/2017 VINITA GREER APRN Ot Z87.19 PERSONAL HISTORY OF OTHER DISEASES OF 08/19/2017 VINITA GREER POLICE COMMANDING OFFICER Ot Z90.49 ACQUIRED ABSENCE OF OTHER SPECIFIED PART 08/19/2017 VINITA GREER APRN Ot Z98.51 TUBAL LIGATION STATUS 08/20/2017 CARMELA BRASHER MD Ot D70.9 NEUTROPENIA, UNSPECIFIED 08/20/2017 CARMELA BRASHER MD Ot F41.9 ANXIETY DISORDER, UNSPECIFIED 08/20/2017 ACRMELA BRASHER MD Ot G43.909 MIGRAINE, UNSP, NOT INTRACTABLE, WITHOUT 08/20/2017 CARMELA BRASHER MD Ot J45.909 UNSPECIFIED ASTHMA, UNCOMPLICATED 08/20/2017 CARMELA BRASHER MD, Ot S90.862A INSECT BITE (NONVENOMOUS), LEFT FOOT, IN 08/20/2017 CARMELA BRASHER MD Ot W57.XXXA BIT/STUNG BY NONVENOM INSECT OTH NONVE 08/20/2017 CARMELA BRASHER MD, Ot Z21 ASYMPTOMATIC HUMAN IMMUNODEFICIENCY VIRU 08/20/2017 CARMELA BRASHER MD, Ot Z77.22 CNTCT W AND EXPSR TO ENVIRON TOBACCO SMO 08/20/2017 CARMELA BRASHER MD, Ot Z87.19 PERSONAL HISTORY OF OTHER DISEASES OF TH 08/20/2017 CARMELA BRASHER MD, Ot Z98.51 TUBAL LIGATION STATUS 08/21/2017 VINITA GREER APRN Ot F41.9 ANXIETY DISORDER, UNSPECIFIED 08/21/2017 VNIITA GREER APRN Ot G43.909 MIGRAINE, UNSP, NOT INTRACTABLE, WITHOUT 08/21/2017 VINITA GREER APRN Ot J45.909 UNSPECIFIED ASTHMA, UNCOMPLICATED 08/21/2017 VINITA GREER APRN Ot 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 08/21/2017 VINITA GREER APRN Ot Z77.22 CNTCT W AND EXPSR TO ENVIRON TOBACCO SMO 08/21/2017 VINITA GREER APRN Ot Z87.19 PERSONAL HISTORY OF OTHER DISEASES OF TH 08/21/2017 VINITA GREER APRN Ot Z90.49 ACQUIRED ABSENCE OF OTHER SPECIFIED PART 08/21/2017 VINITA GREER APRN Ot Z98.51 TUBAL LIGATION STATUS Procedures Code Description Performed By Performed On 51.23 LAPAROSCOPIC CHOLECYSTECTOMY 11/10/2010 25421 EXCISION BENIGN LESION 1.1- 2 cm (specify location in [facility] descriiption) 11/12/2012 32225 ROUTINE VENIPUNCTURE 11/30/2013 84244 BIOPSY SKIN LESION (SINGLE) 11/30/2013 61709 BIOPSY SKIN (EACH ADD'L) 11/30/2013 23121 US PELVIC COMPL (REFLEX CPT - 29945) 11/30/2013 92716 MAMMOGRAM DX, GILL 11/30/2013 99481 PAP SMEAR 11/30/2013 Q0091 PAP SMEAR OBTAIN SMEAR 11/30/2013 34965 CA 125 12/01/2013 66779 COLP W/ BX & ECC 12/09/2013 72941 MRI PELVIS W/O DYE 12/09/2013 98008 TEST, URINE (IN- HOUSE) 12/09/2013 Results Test Result Range Complete blood count (CBC) with automated white blood cell (WBC) differential - 09/14/16 21:00 Blood leukocytes automated count (number/volume) 3.3 10*3/uL 4.3-11.0 Blood erythrocytes automated count (number/volume) 3.79 10*6/uL 4.35-5.85 Venous blood hemoglobin measurement (mass/volume) 11.3 g/dL 11.5-16.0 Blood hematocrit (volume fraction) 34 % 35-52 Automated erythrocyte mean corpuscular volume 90 [foz_us] 80-99 Automated erythrocyte mean corpuscular hemoglobin (mass per erythrocyte) 30 pg 25-34 Automated erythrocyte mean corpuscular hemoglobin concentration measurement ( mass/volume) 33 g/dL 32-36 Automated erythrocyte distribution width ratio 18.2 % 10.0-14.5 Automated blood platelet count (count/volume) 221 10*3/uL 130-400 Automated blood platelet mean volume measurement 11.1 [foz_us] 7.4-10.4 Automated blood neutrophils/100 leukocytes 30 % 42-75 Automated blood lymphocytes/100 leukocytes 50 % 12-44 Blood monocytes/100 leukocytes 16 % 0-12 Automated blood eosinophils/100 leukocytes 3 % 0-10 Automated blood basophils/100 leukocytes 2 % 0-10 Blood neutrophils automated count (number/volume) 1.0 10*3 1.8-7.8 Blood lymphocytes automated count (number/volume) 1.6 10*3 1.0-4.0 Blood monocytes automated count (number/volume) 0.5 10*3 0.0-1.0 Automated eosinophil count 0.1 10*3/uL 0.0-0.3 Automated blood basophil count (count/volume) 0.1 10*3/uL 0.0-0.1 PT panel in platelet poor plasma by coagulation assay - 09/14/16 21:00 Prothrombin time (PT) in platelet poor plasma by coagulation assay 12.5 s 12.2-14.7 INR in platelet poor plasma or blood by coagulation assay 1.0 0.8-1.4 Activated partial thromboplastin time (aPTT) in platelet poor plasma bycoagulation assay - 09/14/16 21:00 Activated partial thromboplastin time (aPTT) in platelet poor plasma bycoagulation assay 24 s 24-35 Serum or plasma choriogonadotropin ( test) detection - 09/14/16 21:00 Serum or plasma choriogonadotropin ( test) detection NEGATIVE NEGATIVE Comprehensive metabolic panel - 09/14/16 21:00 Serum or plasma sodium measurement (moles/volume) 142 mmol/L 135-145 Serum or plasma potassium measurement (moles/volume) 3.0 mmol/L 3.6-5.0 Serum or plasma chloride measurement (moles/volume) 108 mmol/L 98-107 Carbon dioxide 23 mmol/L 21-32 Serum or plasma anion gap determination (moles/volume) 11 mmol/L 5-14 Serum or plasma urea nitrogen measurement (mass/volume) 11 mg/dL 7-18 Serum or plasma creatinine measurement (mass/volume) 0.82 mg/dL 0.60-1.30 Serum or plasma urea nitrogen/creatinine mass ratio 13 NRG Serum or plasma creatinine measurement with calculation of estimated glomerular filtration rate > NRG Serum or plasma glucose measurement (mass/volume) 94 mg/dL 70-105 Serum or plasma calcium measurement (mass/volume) 10.0 mg/dL 8.5-10.1 Serum or plasma total bilirubin measurement (mass/volume) 0.4 mg/dL 0.1-1.0 Serum or plasma alkaline phosphatase measurement (enzymatic activity/volume) 76 U/L 40-136 Serum or plasma aspartate aminotransferase measurement (enzymatic activity/ volume) 21 U/L 5-34 Serum or plasma alanine aminotransferase measurement (enzymatic activity/volume ) 15 U/L 0-55 Serum or plasma protein measurement (mass/volume) 7.3 g/dL 6.4-8.2 Serum or plasma albumin measurement (mass/volume) 4.2 g/dL 3.2-4.5 Magnesium - 09/14/16 21:00 Magnesium 1.8 mg/dL 1.8-2.4 Serum or plasma amylase measurement (enzymatic activity/volume) - 09/14/16 21: 00 Serum or plasma amylase measurement (enzymatic activity/volume) 54 U /L 25-125 Lipase - 09/14/16 21:00 Lipase 17 U/L 8-78 Serum or plasma acetaminophen measurement (mass/volume) - 09/14/16 21:00 Serum or plasma acetaminophen measurement (mass/volume) < ug/mL 10-30 Serum or plasma ethanol measurement (mass/volume) - 09/14/16 21:00 Serum or plasma ethanol measurement (mass/volume) < mg/dL <10 Urine drug screening test - 09/14/16 22:50 Urine phencyclidine detection by screening method NEGATIVE NEGATIVE Urine benzodiazepines detection by screening method NEGATIVE NEGATIVE Urine cocaine detection NEGATIVE NEGATIVE Urine amphetamines detection by screening method POSITIVE NEGATIVE Urine methamphetamine detection by screening method NEGATIVE NEGATIVE Urine cannabinoids detection by screening method POSITIVE NEGATIVE Urine opiates detection by screening method NEGATIVE NEGATIVE Urine barbiturates detection NEGATIVE NEGATIVE Screening urine tricyclic antidepressants detection NEGATIVE NEGATIVE Urine methadone detection by screening method NEGATIVE NEGATIVE Urine oxycodone detection NEGATIVE NEGATIVE Urine propoxyphene detection NEGATIVE NEGATIVE Complete urinalysis with reflex to culture - 09/14/16 22:50 Urine color determination RED NRG Urine clarity determination CLOUDY NRG Urine pH measurement by test strip 7 5-9 Specific gravity of urine by test strip 1.010 1.016- 1.022 Urine protein assay by test strip, semi-quantitative 4+ NEGATIVE Urine glucose detection by automated test strip NEGATIVE NEGATIVE Erythrocytes detection in urine sediment by light microscopy 5+ NEGATIVE Urine ketones detection by automated test strip 1+ NEGATIVE Urine nitrite detection by test strip NEGATIVE NEGATIVE Urine total bilirubin detection by test strip NEGATIVE NEGATIVE Urine urobilinogen measurement by automated test strip (mass/volume) NORMAL NORMAL Urine leukocyte esterase detection by dipstick NEGATIVE NEGATIVE Automated urine sediment erythrocyte count by microscopy (number/high power field) TNTC NRG Automated urine sediment leukocyte count by microscopy (number/high power field ) NONE NRG Bacteria detection in urine sediment by light microscopy NONE NRG Crystals detection in urine sediment by light microscopy NONE NRG Casts detection in urine sediment by light microscopy NONE NRG Mucus detection in urine sediment by light microscopy NEGATIVE NRG Complete urinalysis with reflex to culture NO NRG Methicillin resistant Staphylococcus aureus (MRSA) screening culture - 11:25 Methicillin resistant Staphylococcus aureus (MRSA) screening culture NEG NRG Complete blood count (CBC) with automated white blood cell (WBC) differential - 10/20/16 11:30 Blood leukocytes automated count (number/volume) 5.2 10*3/uL 4.3-11.0 Blood erythrocytes automated count (number/volume) 3.93 10*6/uL 4.35-5.85 Venous blood hemoglobin measurement (mass/volume) 11.9 g/dL 11.5-16.0 Blood hematocrit (volume fraction) 36 % 35-52 Automated erythrocyte mean corpuscular volume 92 [foz_us] 80-99 Automated erythrocyte mean corpuscular hemoglobin (mass per erythrocyte) 30 pg 25-34 Automated erythrocyte mean corpuscular hemoglobin concentration measurement ( mass/volume) 33 g/dL 32-36 Automated erythrocyte distribution width ratio 17.2 % 10.0-14.5 Automated blood platelet count (count/volume) 201 10*3/uL 130-400 Automated blood platelet mean volume measurement 11.4 [foz_us] 7.4-10.4 Automated blood neutrophils/100 leukocytes 85 % 42-75 Automated blood lymphocytes/100 leukocytes 12 % 12-44 Blood monocytes/100 leukocytes 3 % 0-12 Automated blood eosinophils/100 leukocytes 0 % 0-10 Automated blood basophils/100 leukocytes 0 % 0-10 Blood neutrophils automated count (number/volume) 4.5 10*3 1.8-7.8 Blood lymphocytes automated count (number/volume) 0.6 10*3 1.0-4.0 Blood monocytes automated count (number/volume) 0.1 10*3 0.0-1.0 Automated eosinophil count 0.0 10*3/uL 0.0-0.3 Automated blood basophil count (count/volume) 0.0 10*3/uL 0.0-0.1 Blood type T Indirect antibody screen panel - 10/20/16 11:30 ABO+Rh group AP NRG Blood group antibody screen NEGATIVE [facility] Whole blood basic metabolic panel - 10/20/16 11:30 Serum or plasma sodium measurement (moles/volume) 141 mmol/L 135-145 Serum or plasma potassium measurement (moles/volume) 3.2 mmol/L 3.6-5.0 Serum or plasma chloride measurement (moles/volume) 109 mmol/L 98-107 Carbon dioxide 21 mmol/L 21-32 Serum or plasma anion gap determination (moles/volume) 11 mmol/L 5-14 Serum or plasma urea nitrogen measurement (mass/volume) 19 mg/dL 7-18 Serum or plasma creatinine measurement (mass/volume) 0.79 mg/dL 0.60-1.30 Serum or plasma urea nitrogen/creatinine mass ratio 24 NRG Serum or plasma creatinine measurement with calculation of estimated glomerular filtration rate > NRG Serum or plasma glucose measurement (mass/volume) 103 mg/dL 70-105 Serum or plasma calcium measurement (mass/volume) 9.6 mg/dL 8.5-10.1 Methicillin resistant Staphylococcus aureus (MRSA) screening culture - 14:10 Methicillin resistant Staphylococcus aureus (MRSA) screening culture NEG NRG Serum or plasma choriogonadotropin ( test) detection - 11/28/16 11:25 Serum or plasma choriogonadotropin ( test) detection NEGATIVE NEGATIVE Blood type T Indirect antibody screen panel - 11/28/16 11:25 ABO+Rh group AP NRG Transfusion band number [id number] NRG Blood group antibody screen NEGATIVE NRG GenoSure - 01/19/17 10:28 HIV GenoSure(R) MG PDF . NRG HIV GenoSure(R) NRG HIV GenoSure(R) NRG TESTOSTERONE, TOTAL (WOMEN, CHILDREN, HYPOGONADAL MALES) - 01/22/17 14:40 TESTOSTERONE, TOTAL, LC/MS/MS 14 ng/dL 2-45 FREE TESTOSTERONE 0.6 pg/mL 0.1-6.4 Complete blood count (CBC) with automated white blood cell (WBC) differential - 08/18/17 14:51 Blood leukocytes automated count (number/volume) 2.8 10*3/uL 4.3-11.0 Blood erythrocytes automated count (number/volume) 4.06 10*6/uL 4.35-5.85 Venous blood hemoglobin measurement (mass/volume) 12.1 g/dL 11.5-16.0 Blood hematocrit (volume fraction) 37 % 35-52 Automated erythrocyte mean corpuscular volume 91 [foz_us] 80-99 Automated erythrocyte mean corpuscular hemoglobin (mass per erythrocyte) 30 pg 25-34 Automated erythrocyte mean corpuscular hemoglobin concentration measurement ( mass/volume) 33 g/dL 32-36 Automated erythrocyte distribution width ratio 15.4 % 10.0-14.5 Automated blood platelet count (count/volume) 168 10*3/uL 130-400 Automated blood platelet mean volume measurement 12.1 [foz_us] 7.4-10.4 Automated blood neutrophils/100 leukocytes 37 % 42-75 Automated blood lymphocytes/100 leukocytes 44 % 12-44 Blood monocytes/100 leukocytes 14 % 0-12 Automated blood eosinophils/100 leukocytes 5 % 0-10 Automated blood basophils/100 leukocytes 1 % 0-10 Blood neutrophils automated count (number/volume) 1.0 10*3 1.8-7.8 Blood lymphocytes automated count (number/volume) 1.2 10*3 1.0-4.0 Blood monocytes automated count (number/volume) 0.4 10*3 0.0-1.0 Automated eosinophil count 0.1 10*3/uL 0.0-0.3 Automated blood basophil count (count/volume) 0.0 10*3/uL 0.0-0.1 Comprehensive metabolic panel - 08/18/17 14:51 Serum or plasma sodium measurement (moles/volume) 141 mmol/L 135-145 Serum or plasma potassium measurement (moles/volume) 4.3 mmol/L 3.6-5.0 Serum or plasma chloride measurement (moles/volume) 113 mmol/L 98-107 Carbon dioxide 19 mmol/L 21-32 Serum or plasma anion gap determination (moles/volume) 9 mmol/L 5-14 Serum or plasma urea nitrogen measurement (mass/volume) 26 mg/dL 7-18 Serum or plasma creatinine measurement (mass/volume) 0.93 mg/dL 0.60-1.30 Serum or plasma urea nitrogen/creatinine mass ratio 28 NRG Serum or plasma creatinine measurement with calculation of estimated glomerular filtration rate > NRG Serum or plasma glucose measurement (mass/volume) 88 mg/dL 70-105 Serum or plasma calcium measurement (mass/volume) 9.2 mg/dL 8.5-10.1 Serum or plasma total bilirubin measurement (mass/volume) 0.2 mg/dL 0.1-1.0 Serum or plasma alkaline phosphatase measurement (enzymatic activity/volume) 80 U/L 40-136 Serum or plasma aspartate aminotransferase measurement (enzymatic activity/ volume) 14 U/L 5-34 Serum or plasma alanine aminotransferase measurement (enzymatic activity/volume ) 10 U/L 0-55 Serum or plasma protein measurement (mass/volume) 7.5 g/dL 6.4-8.2 Serum or plasma albumin measurement (mass/volume) 4.4 g/dL 3.2-4.5 Serum or plasma C reactive protein measurement (mass/volume) - 08/18/17 14:51 Serum or plasma C reactive protein measurement (mass/volume) 0.56 mg /dL 0.00-0.50 Urine drug screening test - 08/19/17 11:49 Urine phencyclidine detection by screening method NEGATIVE NEGATIVE Urine benzodiazepines detection by screening method NEGATIVE NEGATIVE Urine cocaine detection NEGATIVE NEGATIVE Urine amphetamines detection by screening method POSITIVE NEGATIVE Urine methamphetamine detection by screening method NEGATIVE NEGATIVE Urine cannabinoids detection by screening method POSITIVE NEGATIVE Urine opiates detection by screening method NEGATIVE NEGATIVE Urine barbiturates detection NEGATIVE NEGATIVE Screening urine tricyclic antidepressants detection NEGATIVE NEGATIVE Urine methadone detection by screening method NEGATIVE NEGATIVE Urine oxycodone detection NEGATIVE NEGATIVE Urine propoxyphene detection NEGATIVE NEGATIVE Human Immunodeficiency Virus (HIV-1), Quantitative, Real-time PCR (graph) [id number] - 10/02/17 11:05 HIV-1 RNA by PCR [id number] copies/mL NRG log10 HIV-1 RNA 5.193 qub79tzmk/mL NRG Metabolic Panel (14), Comprehensive (CMP) [id number] - 10/02/17 11:05 Glucose, Serum 94 mg/dL 65-99 BUN 16 mg/dL 6-24 Creatinine, Serum 0.83 mg/dL 0.57-1.00 eGFR If NonAfricn Am 87 mL/min/1.73 >59 eGFR If Africn Am 101 mL/min/1.73 >59 BUN/Creatinine Ratio 19 9-23 Sodium, Serum 142 mmol/L 134-144 Potassium, Serum 4.3 mmol/L 3.5-5.2 Chloride, Serum 106 mmol/L 96-106 Carbon Dioxide, Total 24 mmol/L 20-29 Calcium, Serum 9.5 mg/dL 8.7-10.2 Protein, Total, Serum 7.0 g/dL 6.0-8.5 Albumin, Serum 4.3 g/dL 3.5-5.5 Globulin, Total 2.7 g/dL 1.5-4.5 A/G Ratio 1.6 1.2-2.2 Bilirubin, Total <0.2 mg/dL 0.0-1.2 Alkaline Phosphatase, S 81 IU/L 39-117 AST (SGOT) 19 IU/L 0-40 ALT (SGPT) 13 IU/L 0-32 CD4/CD8 Ratio Profile [id number] - 10/02/17 11:05 WBC 1.6 x10E3/uL 3.4-10.8 RBC 4.27 x10E6/uL 3.77-5.28 Hemoglobin 12.2 g/dL 11.1-15.9 Hematocrit 37.6 % 34.0-46.6 MCV 88 fL 79-97 MCH 28.6 pg 26.6-33.0 MCHC 32.4 g/dL 31.5-35.7 RDW 16.5 % 12.3-15.4 Platelets 177 x10E3/uL 150-379 Neutrophils 27 % Not Estab. Lymphs 50 % Not Estab. Monocytes 22 % Not Estab. Eos 0 % Not Estab. Basos 1 % Not Estab. Immature Cells ADMISSIONS SPECIALIST NRG Neutrophils (Absolute) 0.4 x10E3/uL 1.4-7.0 Lymphs (Absolute) 0.8 x10E3/uL 0.7-3.1 Monocytes(Absolute) 0.4 x10E3/uL 0.1-0.9 Eos (Absolute) 0.0 x10E3/uL 0.0-0.4 Baso (Absolute) 0.0 x10E3/uL 0.0-0.2 Immature Granulocytes 0 % Not Estab. Immature Grans (Abs) 0.0 x10E3/uL 0.0-0.1 NRBC ADMISSIONS SPECIALIST NRG Hematology Comments: Note: NRG Absolute CD 4 [place] 47 /uL 359-1519 % CD 4 Pos. Lymph. 5.9 % 30.8-58.5 Abs. CD 8 Suppressor 474 /uL 109-897 % CD 8 Pos. Lymph. 59.2 % 12.0-35.5 CD4/CD8 Ratio 0.10 0.92-3.72 Metabolic Panel (14), Comprehensive (CMP) [id number] - 12/11/17 11:41 Glucose, Serum 81 mg/dL 65-99 BUN 15 mg/dL 6-24 Creatinine, Serum 0.83 mg/dL 0.57-1.00 eGFR If NonAfricn Am 87 mL/min/1.73 >59 eGFR If Africn Am 101 mL/min/1.73 >59 BUN/Creatinine Ratio 18 9-23 Sodium, Serum 145 mmol/L 134-144 Potassium, Serum 4.0 mmol/L 3.5-5.2 Chloride, Serum 111 mmol/L 96-106 Carbon Dioxide, Total 21 mmol/L 20-29 Calcium, Serum 8.9 mg/dL 8.7-10.2 Protein, Total, Serum 6.7 g/dL 6.0-8.5 Albumin, Serum 4.4 g/dL 3.5-5.5 Globulin, Total 2.3 g/dL 1.5-4.5 A/G Ratio 1.9 1.2-2.2 Bilirubin, Total 0.3 mg/dL 0.0-1.2 Alkaline Phosphatase, S 80 IU/L 39-117 AST (SGOT) 19 IU/L 0-40 ALT (SGPT) 11 IU/L 0-32 Metabolic Panel (14), Comprehensive (CMP) [id number] - 02/19/18 10:23 Glucose, Serum 95 mg/dL 65-99 BUN 15 mg/dL 6-24 Creatinine, Serum 0.86 mg/dL 0.57-1.00 eGFR If NonAfricn Am 84 mL/min/1.73 >59 eGFR If Africn Am 96 mL/min/1.73 >59 BUN/Creatinine Ratio 17 9-23 Sodium, Serum 142 mmol/L 134-144 Potassium, Serum 3.6 mmol/L 3.5-5.2 Chloride, Serum 102 mmol/L 96-106 Carbon Dioxide, Total 22 mmol/L 20-29 Calcium, Serum 9.0 mg/dL 8.7-10.2 Protein, Total, Serum 6.6 g/dL 6.0-8.5 Albumin, Serum 4.4 g/dL 3.5-5.5 Globulin, Total 2.2 g/dL 1.5-4.5 A/G Ratio 2.0 1.2-2.2 Bilirubin, Total 0.3 mg/dL 0.0-1.2 Alkaline Phosphatase, S 93 IU/L 39-117 AST (SGOT) 16 IU/L 0-40 ALT (SGPT) 11 IU/L 0-32 CD4/CD8 Ratio Profile [id number] - 02/19/18 10:23 WBC TNP NRG RBC TNP NRG Hemoglobin TNP NRG Hematocrit TNP NRG MCV ADMISSIONS SPECIALIST NRG MCH ADMISSIONS SPECIALIST NRG MCHC ADMISSIONS SPECIALIST NRG RDW ADMISSIONS SPECIALIST NRG Platelets TNP NRG Neutrophils TNP NRG Lymphs TNP NRG Monocytes TNP NRG Eos TNP NRG Basos ADMISSIONS SPECIALIST NRG Immature Cells ADMISSIONS SPECIALIST NRG Neutrophils (Absolute) ADMISSIONS SPECIALIST NRG Lymphs (Absolute) TNP NRG Monocytes(Absolute) ADMISSIONS SPECIALIST NRG Eos (Absolute) TNP NRG Baso (Absolute) TNP NRG Immature Granulocytes ADMISSIONS SPECIALIST NRG Immature Grans (Abs) ADMISSIONS SPECIALIST NRG NRBC ADMISSIONS SPECIALIST NRG Hematology Comments: ADMISSIONS SPECIALIST NRG Absolute CD 4 [place] TNP NRG % CD 4 Pos. Lymph. 2.4 % 30.8-58.5 Abs. CD 8 Suppressor TNP NRG % CD 8 Pos. Lymph. 54.4 % 12.0-35.5 CD4/CD8 Ratio 0.04 0.92-3.72 Encounters ACCT No. Visit Date/Time Discharge Status Pt. Type Provider Facility Loc./Unit Complaint [id number] 12/15/2013 05:50:00 12/15/2013 23:59:59 CLS Outpatient [id number] 12/09/2013 13:18:00 12/09/2013 23:59:59 CLS Outpatient ELIA MURILLO MD [id number] 11/30/2013 09:33:00 11/30/2013 23:59:59 CLS Outpatient RIANNA ROGEL APRN [id number] 11/23/2013 09:48:00 11/23/2013 23:59:59 CLS Outpatient SHANTA MARQUEZ APRN [id number] 05/21/2012 08:58:00 05/21/2012 23:59:59 CLS Outpatient [id number] 11/22/2012 12:09:00 Document Registration [id number] 11/12/2012 13:56:00 Document Registration [id number] 11/02/2012 14:28:00 Document Registration [id number] 10/02/2017 10:45:00 10/02/2017 23:59:59 CLS Outpatient [facility] [id number] 02/19/2018 10:45:00 Document Registration [id number] 12/11/2017 10:15:00 Document Registration [id number] 10/02/2017 10:45:00 Document Registration [id number] 01/16/2017 10:30:00 Document Registration [id number] 03/20/2015 00:50:00 ACT Inpatient [facility] Sn[facility] ALTERED MENTAL STATUS, HIV POSITIVE [id number] 11/04/2017 09:49:00 11/04/2017 23:59:59 CLS Preadmit LEONEL MCLAUGHLIN MD [facility] WOUNDCARE [id number] 08/19/2017 11:40:00 08/19/2017 12:33:00 DIS Emergency VINITA GREER APRN [facility] ER POSS SPIDER BITE LEFT FOOT [id number] 08/18/2017 14:33:00 08/18/2017 16:52:00 DIS Emergency CARMELA BRASHER MD [facility] ER SPIDER BITE LEFT FOOT [id number] 11/28/2016 10:10:00 11/29/2016 12:30:00 DIS Outpatient JAKY RUIZ MD [facility] UTEROMEGALY; MENOMETRORRHAGIA;PELVIC PAIN; HERNIA [id number] 11/11/2016 13:49:00 11/11/2016 15:00:00 DIS Outpatient JAKY RUIZ MD [facility] PREOP UTEROMEGALY; MENOMETRORRHAGIA;PELVIC PAIN; HERNIA [id number] 10/29/2016 12:58:00 10/29/2016 23:59:59 CLS Outpatient LUMA SIMMONS APRN [facility] RAD ASTHMA [id number] 10/24/2016 13:00:00 10/24/2016 23:59:59 CLS Preadmit JAKY RUIZ MD [facility] VENTRAL HERNIA [id number] 10/20/2016 11:43:00 10/20/2016 15:53:00 DIS Outpatient JAKY RUIZ MD [facility] PREOP CHRONIC PELVIC PAIN, DYSFUCTIONAL UTERINE BLEEDING [id number] 10/16/2016 10:26:00 10/16/2016 23:59:59 CLS Outpatient LUMA SIMMONS APRN [facility] RAD [id number] ASTHMA [id number] 10/13/2016 08:51:00 10/13/2016 10:11:00 DIS Emergency CRISTAL SANFORD MD [facility] ER PELVIC/ABD PAIN [id number] 09/14/2016 20:36:00 09/14/2016 23:21:00 DIS Emergency LOU DO, LC K [facility] ER AB PAIN [id number] 03/19/2015 12:24:00 03/19/2015 22:06:00 DIS Emergency CRISTAL SANFORD MD [facility] ER CONFUSED [id number] 12/07/2013 13:35:00 12/07/2013 23:59:59 CLS Outpatient RIANNA ROGEL APRN [facility] RAD [id number] 08/02/2014 13:20:00 Document Registration [id number] 08/02/2014 13:20:00 Document Registration [id number] 08/02/2014 13:19:00 Document Registration [id number] 08/02/2014 13:19:00 Document Registration [id number] 08/02/2014 13:19:00 Document Registration [id number] 06/02/2012 12:20:00 Document Registration [id number] 05/26/2012 21:00:00 Document Registration [id number] 06/08/2011 17:12:00 Document Registration [id number] 11/25/2010 17:39:00 Document Registration [id number] 11/22/2010 15:52:00 Document Registration [id number] 11/12/2010 02:45:00 Document Registration [id number] 11/11/2010 19:40:00 Document Registration [id number] 11/10/2010 22:02:00 Document Registration [id number] 04/30/2010 17:18:00 Document Registration [id number] 12/24/2009 16:23:00 Document Registration [id number] 11/08/2009 20:21:00 Document Registration [id number] 10/16/2009 18:11:00 Document Registration [id number] 10/12/2009 00:14:00 Document Registration [id number] 07/03/2009 07:42:00 Document Registration [id number] 06/12/2009 11:21:00 Document Registration [id number] 02/19/2018 11:00:00 02/19/2018 23:59:59 CLS Outpatient ED[facility] DUARTE [facility] [id number] 01/22/2017 14:20:00 Document Registration
--- NOTE | 2018-03-22 15:14 | Diagnostic Imaging Report ---
INDICATION: Pneumonia. TECHNIQUE: PA and lateral views of the chest were obtained at 3:14 PM. COMPARISON: 10/16/2016. FINDINGS: The heart and mediastinal silhouette are normal in appearance. There is mild hyperinflation, compatible with COPD. There is no focal infiltrate, pneumothorax, or pleural fluid. IMPRESSION: COPD changes. No focal infiltrate. No change from 10/16/2016. Dictated by: Dictated on workstation # [id number]
[2018-03-22] MEDS ORDERED: NAPR-1071 PO (15:45)
[2018-03-22 16:00] VITALS: BP 115/98
== END 2018-03-22 16:00 | disposition home or self-care (01) ==
LOC: EDUNIT# 13:31 → ER 13:32
DX: J44.9 Chronic obstructive pulmonary disease, unspecified (principal); G43.909 Migraine, unspecified, not intractable, without status migrainosus; F41.9 Anxiety disorder, unspecified; F17.210 Nicotine dependence, cigarettes, uncomplicated; Z98.51 Tubal ligation status; Z87.19 Personal history of other diseases of the digestive system; Z90.49 Acquired absence of other specified parts of digestive tract; Z21 Asymptomatic human immunodeficiency virus [HIV] infection status; Z79.51 Long term (current) use of inhaled steroids
CPT/HCPCS: 36415; 71046; 80053; 85007; 85027; 85610; 85730; 87804; 94640; 96361; 96365; 96375

== ENCOUNTER 2018-06-14 12:10 | Emergency (ER) | payer BC, MEDICAID ==
[~2018-06-14] VITALS: Ht 165.1 cm; Wt 59.0 kg
[2018-06-14] MEDS ORDERED: ONDANSETRON 4 MG/2 ML (SDV) Z0FRAN IVP ONE (12:45)
[2018-06-14] MEDS ORDERED: NS IV 1000 ML 1,000 ML IV SCH (12:45)
[2018-06-14] MEDS ORDERED: KETOROLAC 30 MG/ML VIAL IVP ONE ×2 (12:45→15:00)
[2018-06-14] MEDS ORDERED: FAMOTIDINE 20 MG (PEPCID) TABLET PO STA (12:47)
--- NOTE | 2018-06-14 12:53 | ED Abdominal Pain ---
General Stated Complaint: N/V Source of Information: Patient Exam Limitations: No Limitations History of Present Illness Date Seen by Provider: Jun 14, 2018 Time Seen by Provider: 12:34 Initial Comments Patient presents to ER by private conveyance with her son and chief complaint of burning abdominal pain for the past week. She says is epigastric in nature and she has some burning going up towards her rib cage. She tried some antacids [id number] with no relief. She's had nausea vomiting and has a history of HIV with her March labs demonstrating a PCR count 200,000 and a white count of 2.8 with a CD4 count of 15. She says she's been taking her medications as prescribed otherwise. She usually follows with Harper Goins and does not have a primary care provider. She's not had any fevers or chills. She says she's been having some wheezing and coughing which her albuterol nebulizers worked pretty well for her. Sometimes the coughing causes her to want to vomit but also she has vomiting whenever she eats something and causes a lot of burning pain in her abdomen. She denies any diarrhea or constipation. She has had a tubal ligation and cholecystectomy. Her last breathing treatment was 1 hour ago prior to arrival. She says she's no longer short of breath or having any wheezing after taking it. Allergies and Home Medications Allergies Coded Allergies: No Known Drug Allergies (Unverified , 11/11/16) Home Medications Albuterol Sulfate 1 Puff Puff, 2 PUFF IH Q4H PRN for SHORTNESS OF BREATH, ( Reported) 1 PUFF = 90 MCG Alprazolam 1 Mg Tablet, 1 MG PO BID, (Reported) Azithromycin 250 Mg Tablet, 250 MG PO DAILY, (Reported) Dapsone 100 Mg Tablet, 100 MG PO DAILY, (Reported) Dicyclomine HCl 20 Mg Tablet, 20 MG PO TID, (Reported) Docusate Sodium 100 Mg Capsule, 100 MG PO BID Prescribed by: JAKY HOBSON on 11/29/16 0704 Doxycycline Hyclate 100 Mg Tablet, 100 MG PO BID Prescribed by: CARMELA MISHRA on 08/18/17 1620 Dronabinol 10 Mg Capsule, 10 MG PO BID, (Reported) Elvitegr/Cobicist/Emtric/Tenof 1 Each Tablet, 1 EACH PO DAILY, (Reported) Ibuprofen 800 Mg Tablet, 800 MG PO Q6HR Prescribed by: JAKY HOBSON on 11/29/16 0704 Methocarbamol 750 Mg Tablet, 750 MG PO Q8H, (Reported) Naproxen 500 Mg Tablet, 500 MG PO BID PRN for PAIN-MODERATE Prescribed by: VINITA GREER on 08/19/17 1213 Naproxen 500 Mg Tablet, 500 MG PO BID Prescribed by: DALLAS RICE on 03/22/18 1545 Ondansetron HCl 8 Mg Tablet, 8 MG PO Q8H PRN for NAUSEA/VOMITING-1ST LINE, ( Reported) Oxycodone HCl/Acetaminophen 1 Each Tablet, 1-2 TAB PO Q4HR PRN for PAIN- MODERATE TO SEVERE Prescribed by: JAKY HOBSON on 11/29/16 0704 Patient Home Medication List Home Medication List Reviewed: Yes Review of Systems Review of Systems Constitutional: No chills, No fever; malaise EENTM: No Blurred Vision, No Double Vision Respiratory: Cough, Wheezing Cardiovascular: Denies Chest Pain, Denies Lightheadedness Gastrointestinal: Denies Abdomen Distended; Abdominal Pain; Denies Blood Streaked Stools Genitourinary: Denies Burning, Denies Discharge Musculoskeletal: No back pain, No joint pain Skin: No pruritus, No rash Past Yoxzyie-Exuhmi-Rahwnh Hx Patient Social History Alcohol Use: Denies Use Recreational Drug Use: No Smoking Status: Current Everyday Smoker Type Used: Cigarettes (0.25 ppd) 2nd Hand Smoke Exposure: Yes Recent Foreign Travel: No Contact w/Someone Who Travel: No Recent Hopitalizations: No Immunizations Up To Date Tetanus Booster (TDap): Less than 5yrs Date of Pneumonia Vaccine: Mar 16, 2014 Date of Influenza Vaccine: Dec 24, 2015 Seasonal Allergies Seasonal Allergies: No Past Medical History Surgeries: Yes (RUDDY 2010 WITH ERCP) Gallbladder, Tubal Ligation Respiratory: Yes Asthma Cardiac: No Neurological: Yes Headaches /Migraines 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 Disorders: Yes (CPP, AUB) Female 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 Disorders: Menstrual 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 0oz. [id number]; 24.2 BMI Method:Stated General Appearance: no apparent distress, thin; No WD/WN HEENT: PERRL/EOMI, pharynx normal Neck: full range of motion (oropharynx is mildly dry), normal inspection Respiratory: chest non-tender, lungs clear, normal breath sounds, no respiratory distress, no accessory muscle use Cardiovascular: normal peripheral pulses, regular rate, rhythm, no edema Peripheral Pulses: 2+ Radial Pulses (R), 2+ Radial Pulses (L) Gastrointestinal: normal bowel sounds, soft, no organomegaly, tenderness ( epigastric region) Extremities: non-tender, normal inspection, normal capillary refill Neurologic/Psychiatric: alert, normal mood/affect, oriented x 3 Skin: normal color, warm/dry Focused Exam Lactate Level 06/14/18 13:00: Lactic Acid Level 1.07 Lactic Acid Level Laboratory Tests Test 06/14/18 13:00 Lactic Acid Level 1.07 MMOL/L (0.50-2.00) Progress/Results/Core Measures Results/Orders Lab Results Laboratory Tests Test 06/14/18 12:50 06/14/18 12:55 06/14/18 13:00 06/14/18 13:56 Range/Units White Blood Count 3.9 L 4.3-11.0 10^3/uL Red Blood Count 4.37 4.35-5.85 10^6/uL Hemoglobin 12.1 11.5-16.0 G/DL Hematocrit 35 35-52 % Mean Corpuscular Volume 81 80-99 FL Mean Corpuscular Hemoglobin 28 25-34 PG Mean Corpuscular Hemoglobin Concent 34 32-36 G/DL Red Cell Distribution Width 16.4 H 10.0-14.5 % Platelet Count 252 130-400 10^3/uL Mean Platelet Volume 7.4-10.4 FL Neutrophils (%) (Auto) 64 42-75 % Lymphocytes (%) (Auto) 14 12-44 % Monocytes (%) (Auto) 21 H 0-12 % Eosinophils (%) (Auto) 0 0-10 % Basophils (%) (Auto) 1 0-10 % Neutrophils # (Auto) 2.5 1.8-7.8 X 10^3 Lymphocytes # (Auto) 0.5 L 1.0-4.0 X 10^3 Monocytes # (Auto) 0.8 0.0-1.0 X 10^3 Eosinophils # (Auto) 0.0 0.0-0.3 10^3/uL Basophils # (Auto) 0.0 0.0-0.1 10^3/uL Neutrophils % (Manual) 57 % Lymphocytes % (Manual) 17 % Monocytes % (Manual) 20 % Eosinophils % (Manual) 1 % Basophils % (Manual) 0 % Band Neutrophils 5 % Toxic Granulation 1+ Poikilocytosis SLIGHT Elliptocytes SLIGHT Sodium Level 141 135-145 MMOL/L Potassium Level 2.7 L 3.6-5.0 MMOL/L Chloride Level 108 H 98-107 MMOL/L Carbon Dioxide Level 18 L 21-32 MMOL/L Anion Gap 15 H 5-14 MMOL/L Blood Urea Nitrogen 23 H 7-18 MG/DL Creatinine 1.35 H 0.60-1.30 MG/DL Estimat Glomerular Filtration Rate 43 BUN/Creatinine Ratio 17 Glucose Level 99 70-105 MG/DL Calcium Level 10.2 H 8.5-10.1 MG/DL Corrected Calcium 10.0 8.5-10.1 MG/DL Total Bilirubin 0.3 0.1-1.0 MG/DL Aspartate Amino Transf (AST/SGOT) 15 5-34 U/L Alanine Aminotransferase (ALT/SGPT) 10 0-55 U/L Alkaline Phosphatase 100 40-136 U/L Total Protein 7.8 6.4-8.2 GM/DL Albumin 4.3 3.2-4.5 GM/DL Lipase 7 L 8-78 U/L Monoscreen NEGATIVE NEGATIVE Lactic Acid Level 1.07 0.50-2.00 MMOL/L Urine Color YELLOW Urine Clarity SLIGHTLY CLOUDY Urine pH 6 5-9 Urine Specific [place] 1.015 L 1.016-1.022 Urine Protein 3+ H NEGATIVE Urine Glucose (UA) NEGATIVE NEGATIVE Urine Ketones 1+ H NEGATIVE Urine Nitrite POSITIVE H NEGATIVE Urine Bilirubin 2+ H NEGATIVE Urine Urobilinogen 1 NORMAL MG/DL Urine Leukocyte Esterase 3+ H NEGATIVE Urine RBC (Auto) 3+ H NEGATIVE Urine RBC 2-5 H /HPF Urine WBC 5-10 H /HPF Urine Squamous Epithelial Cells 5-10 /HPF Urine Crystals NONE /LPF Urine Bacteria FEW H /HPF Urine Casts PRESENT /LPF Urine Hyaline Casts RARE /LPF Urine Granular Casts RARE /LPF Urine Mucus NEGATIVE /LPF Urine Culture Indicated YES Urine Opiates Screen NEGATIVE NEGATIVE Urine Oxycodone Screen NEGATIVE NEGATIVE Urine Methadone Screen NEGATIVE NEGATIVE Urine Propoxyphene Screen NEGATIVE NEGATIVE Urine Barbiturates Screen NEGATIVE NEGATIVE Ur Tricyclic Antidepressants Screen NEGATIVE NEGATIVE Urine Phencyclidine Screen NEGATIVE NEGATIVE Urine Amphetamines Screen POSITIVE H NEGATIVE Urine Methamphetamines Screen NEGATIVE NEGATIVE Urine Benzodiazepines Screen NEGATIVE NEGATIVE Urine Cocaine Screen NEGATIVE NEGATIVE Urine Cannabinoids Screen POSITIVE H NEGATIVE Micro Results Microbiology 06/14/18 QUINN Preparation - Final, Complete My Orders Orders - DALLAS RICE Lidocaine 2% Viscous 15 Ml (Xylocaine Vi (06/14/18 13:00) Famotidine Tablet (Pepcid Tablet) (06/14/18 12:47) Antacid Suspension (Mylanta Suspension (06/14/18 13:00) Monotest (06/14/18 12:54) Lactic Acid Analyzer (06/14/18 12:54) Blood Culture (06/14/18 12:54) Quinn Prep (06/14/18 13:17) Potassium Cl 10meq/50ml Ivpb (Kcl 10 Meq (06/14/18 14:15) Saline Lock/Iv-Start (06/14/18 14:07) Ns Iv 500 Ml (Sodium Chloride 0.9%) (06/14/18 14:07) Rocephin 1 Gm Iv (1x Dose) (06/14/18 15:00) Ketorolac Injection (Toradol Injection) (06/14/18 15:00) Medications Given in ED Current Medications Medications Dose Ordered Sig/Nani Route Start Time Stop Time Status Last Admin Dose Admin Al Hydrox/Mg Hydrox/Simethicone 30 ml ONCE ONCE PO 06/14/18 13:00 06/14/18 13:01 DC 06/14/18 13:27 30 ML Lidocaine HCl 15 ml ONCE ONCE PO 06/14/18 13:00 06/14/18 13:01 DC 06/14/18 13:27 15 ML Ondansetron HCl 8 mg ONCE ONCE IVP 06/14/18 12:45 4/1/19 12:46 DC 06/14/18 13:04 8 MG Progress Progress Note : Time: 14:52 Progress Note Patient's nausea and pain are much improved. We'll give her Toradol for her pain in her belly. She has a bladder infection. She does admit a little dysuria. She can use Pyridium for her discomfort for the next couple days. We' ll give her a gram or Rocephin and send her out on Keflex. She has declined the potassium or extra IV fluids. Departure Impression Primary Impression: UTI (urinary tract infection) Qualified Codes: N30.00 - Acute cystitis without hematuria Additional Impressions: Nausea & vomiting Qualified Codes: R11.2 - Nausea with vomiting, unspecified Hypokalemia Disposition: HOME, SELF-CARE Condition: Improved Departure-Patient Inst. Decision time for Depature: 14:54 Referrals: HARPER GOINS MD (PCP/Family) Primary Care Physician Patient Instructions: Urinary Tract Infection, Adult (DC) Add. 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 supervisor [employer] the potassium take one capsule twice a day with food for the next week. If you are having discomfort you can use [id number] Pyridium. This will change the color of your urine to orange red. Follow-up with primary care as necessary. Scripts Potassium Chloride (Potassium Chloride) 20 Meq Tab.er.prt 20 MEQ PO BID for 7 Days, #14 EA 0 Refills Prov: DALLAS RICE 06/14/18 Cephalexin (Cephalexin) 500 Mg Tablet 500 MG PO BID for 7 Days, #14 TAB 0 Refills Prov: DALLAS RICE 06/14/18 DALLAS RICE Jun 14, 2018 12:53
[2018-06-14 12:57] LABS: BASOPHILS % (AUTO) 1 % (0-10); EOSINOPHILS % (AUTO) 0 % (0-10); HEMATOCRIT 35 % (35-52); HEMOGLOBIN 12.1 G/DL (11.5-16.0); LYMPHOCYTES # (AUTO) 0.5 X 10^3 (1.0-4.0); LYMPHOCYTES % (AUTO) 14 % (12-44); MEAN CORPUSCULAR HEMOGLOBIN 28 PG (25-34); MEAN CORPUSCULAR HGB CONC 34 G/DL (32-36); MEAN CORPUSCULAR VOLUME 81 FL (80-99); MONOCYTES # (AUTO) 0.8 X 10^3 (0.0-1.0); MONOCYTES % (AUTO) 21 % (0-12); NEUTROPHILS # (AUTO) 2.5 X 10^3 (1.8-7.8); NEUTROPHILS % (AUTO) 64 % (42-75); PLATELET COUNT 252 10^3/uL (130-400); RED CELL DISTRIBUTION WIDTH 16.4 % (10.0-14.5); WHITE BLOOD COUNT 3.9 10^3/uL (4.3-11.0)
[2018-06-14] MEDS ORDERED: LIDOCAINE 2% VISCOUS 15 ML UDC PO ONE (13:00)
[2018-06-14] MEDS ORDERED: ANTACID SUSP 30 ML UDC (MYLANTA) PO ONE (13:00)
[2018-06-14 13:19] LABS: ALBUMIN 4.3 GM/DL (3.2-4.5); BILIRUBIN,TOTAL 0.3 MG/DL (0.1-1.0); CALCIUM 10.2 MG/DL (8.5-10.1); CREATININE SERUM 1.35 MG/DL (0.60-1.30); POTASSIUM 2.7 MMOL/L (3.6-5.0); TOTAL PROTEIN 7.8 GM/DL (6.4-8.2)
--- NOTE | 2018-06-14 14:02 | NUR ---
UA COLLECTED VIA CLEAN CATCH.
[2018-06-14 14:06] LABS: CLARITY,URINE SLIGHTLY CLOUDY; COLOR,URINE YELLOW; GLUCOSE, URINE (UA) NEGATIVE (NEGATIVE); KETONES,URINE 1+ (NEGATIVE); LEUKOCYTE ESTERASE ,URINE 3+ (NEGATIVE); NITRITE,URINE POSITIVE (NEGATIVE); PH,URINE 6 (5-9); PROTEIN,URINE 3+ (NEGATIVE); UROBILINOGEN,URINE 1 MG/DL (NORMAL)
[2018-06-14] MEDS ORDERED: NS IV 500 ML 500 ML IV ONE (14:07)
[2018-06-14] MEDS ORDERED: POTASSIUM CL 10MEQ/50ML IVPB 50 ML IV ONE (14:15)
[2018-06-14 14:27] LABS: AMPHETAMINE SCREEN, URINE POSITIVE (NEGATIVE); BARBITURATE SCREEN URINE NEGATIVE (NEGATIVE); BENZODIAZEPINES SCREEN URINE NEGATIVE (NEGATIVE); CANNABINOID SCREEN, URINE POSITIVE (NEGATIVE); COCAINE SCREEN URINE NEGATIVE (NEGATIVE); METHADONE STAT NEGATIVE (NEGATIVE); METHAMPHETAMINE SCREEN URINE S NEGATIVE (NEGATIVE); OPIATE SCREEN URINE NEGATIVE (NEGATIVE); OXYCODONE STAT NEGATIVE (NEGATIVE); PROPOXYPHENE STAT NEGATIVE (NEGATIVE); TRICYCLIC ANTIDEPRESSANTS SCRE NEGATIVE (NEGATIVE)
[2018-06-14 14:41] LABS: BAND NEUTROPHILS 5 %; BASOPHILS % (MANUAL) 0 %; EOSINOPHILS % (MANUAL) 1 %; LYMPHOCYTES % (MANUAL) 17 %; MONOCYTES % (MANUAL) 20 %; NEUTROPHILS % (MANUAL) 57 %
[2018-06-14 14:42] LABS: ELLIPT/OVALOCYTES SLIGHT; POIKILOCYTOSIS SLIGHT; TOXIC GRANULATION/VACUOLAZATIO 1+
[2018-06-14 14:43] LABS: BILIRUBIN,URINE 2+ (NEGATIVE)
[2018-06-14 14:44] LABS: BACTERIA,URINE FEW /HPF; GRANULAR CASTS,URINE RARE /LPF; HYALINE CASTS, URINE RARE /LPF
--- NOTE | 2018-06-14 14:49 | NUR ---
IV NS 500 ML AND POTASSIUM IV TAKEN IN TO PATIENT'S ROOM. PATIENT ASKS HOW LONG MEDICATION IS GOING TO TAKE TO INFUSE AND AFTER TALKING TO PATIENT SHE IS REFUSING THE IV NS 500 ML AND POTASSIUM IV DUE TO HER SON WHO IS HER RIDE NEEDING TO BE IN [place] AT 16:30. DR RICE NOTIFIED AND MEDS RETURNED TO [facility] [place].
[2018-06-14] MEDS ORDERED: KETOROLAC 30 MG/ML VIAL ONE (14:50)
[2018-06-14] MEDS ORDERED: POTA20TA15 PO (14:56)
[2018-06-14] MEDS ORDERED: CEPH500T PO (14:56)
[2018-06-14] MEDS ORDERED: cefTRIAXone FOR IV USE 1,000 MG in WATER (STERILE) FOR INJECTION 10 ML IV ONE (15:00)
[2018-06-14 15:30] VITALS: BP 106/86
== END 2018-06-14 15:30 | disposition home or self-care (01) ==
LOC: EDUNIT# 12:10 → ER 12:11
DX: N39.0 Urinary tract infection, site not specified (principal); E87.6 Hypokalemia; J45.909 Unspecified asthma, uncomplicated; G43.909 Migraine, unspecified, not intractable, without status migrainosus; F41.9 Anxiety disorder, unspecified; Z21 Asymptomatic human immunodeficiency virus [HIV] infection status; Z87.19 Personal history of other diseases of the digestive system; Z98.51 Tubal ligation status; Z90.49 Acquired absence of other specified parts of digestive tract; Z87.891 Personal history of nicotine dependence; Z98.890 Other specified postprocedural states
CPT/HCPCS: 36415; 80053; 80306; 81000; 83605; 83690; 85007; 85027; 86308; 87040; 87088; 87220; 96361; 96365; 96375

== ENCOUNTER 2018-07-29 14:05 | Inpatient (IN) | payer BC, MEDICAID ==
[~2018-07-29] VITALS: Ht 165.1 cm; Wt 54.4 kg
[~2018-07-29 14:05] MED LIST changes: +CEPH500T PO; +POTA20TA15 PO
[2018-07-29] MEDS ORDERED: KETOROLAC 30 MG/ML VIAL IVP ONE (14:15)
[2018-07-29 14:27] LABS: BASOPHILS % (AUTO) 1 % (0-10); EOSINOPHILS # (AUTO) 0.1 10^3/uL (0.0-0.3); EOSINOPHILS % (AUTO) 2 % (0-10); HEMATOCRIT 29 % (35-52); HEMOGLOBIN 9.7 G/DL (11.5-16.0); LYMPHOCYTES # (AUTO) 0.4 X 10^3 (1.0-4.0); LYMPHOCYTES % (AUTO) 16 % (12-44); MEAN CORPUSCULAR HEMOGLOBIN 27 PG (25-34); MEAN CORPUSCULAR HGB CONC 33 G/DL (32-36); MEAN CORPUSCULAR VOLUME 81 FL (80-99); MONOCYTES # (AUTO) 0.2 X 10^3 (0.0-1.0); MONOCYTES % (AUTO) 7 % (0-12); NEUTROPHILS % (AUTO) 74 % (42-75); PLATELET COUNT 349 10^3/uL (130-400); RED CELL DISTRIBUTION WIDTH 21.1 % (10.0-14.5); WHITE BLOOD COUNT 2.7 10^3/uL (4.3-11.0)
[2018-07-29] MEDS ORDERED: RT-ALBUTEROL/IPRATROPIUM 3 ML (DUONEB) VIAL ONE ×2 (14:30→18:50)
[2018-07-29] MEDS ORDERED: RT-ALBUTEROL SULF 2.5 MG/3 ML PRE-MIX VIAL ONE (14:30)
[2018-07-29 14:50] LABS: ALBUMIN 3.3 GM/DL (3.2-4.5); BILIRUBIN,TOTAL 0.2 MG/DL (0.1-1.0); CALCIUM 9.2 MG/DL (8.5-10.1); CREATININE SERUM 1.71 MG/DL (0.60-1.30); TOTAL PROTEIN 6.7 GM/DL (6.4-8.2)
--- NOTE | 2018-07-29 15:15 | Diagnostic Imaging Report ---
Indication: Coughing x1 week PA and lateral chest There is infiltrate and/or atelectasis present in the right middle lobe. There may also be some patchy infiltrate in the lingular segment of the left upper lobe. Impression: Right middle lobe consolidation could represent pneumonia. Dictated by: Dictated on workstation # [id number]
[2018-07-29] MEDS ORDERED: fentaNYL INJECTION 100 MCG/2 ML AMP IVP ONE (15:30)
[2018-07-29] MEDS ORDERED: NS IV 1000 ML 1,000 ML IV SCH (16:00)
--- NOTE | 2018-07-29 16:11 | ED Respiratory ---
General Chief Complaint: Respiratory Problems Stated Complaint: HEADACHE;TROUBLE BREATHING;COUGH Nursing Triage Note: PT WITH HX OF HIV STATES HEADACHE AND SOB, COUGHING FOR ABOUT A WEEK. Source: patient Exam Limitations: no limitations History of Present Illness Date Seen by Provider: July 29, 2018 Time Seen by Provider: 14:10 Initial Comments 43-year-old female who presents to the emergency room with complaints of cough, shortness of breath, wheezing for the past week. If she reports that she does have a history of HIV that is managed by [facility]. She sees Dr. Nancy Kennedy for local PCP. Timing/Duration: week Associated Symptoms: cough, nasal congestion, shortness of breath, wheezing Allergies and Home Medications Allergies Coded Allergies: No Known Drug Allergies (Unverified , 07/29/18) Home Medications Albuterol Sulfate 1 Puff Puff, 2 PUFF IH Q4H PRN for SHORTNESS OF BREATH, ( Reported) 1 PUFF = 90 MCG Alprazolam 1 Mg Tablet, 1 MG PO BID, (Reported) Azithromycin 250 Mg Tablet, 250 MG PO DAILY, (Reported) Cephalexin 500 Mg Tablet, 500 MG PO BID Prescribed by: DALLAS RICE on 06/14/18 1456 Dapsone 100 Mg Tablet, 100 MG PO DAILY, (Reported) Dicyclomine HCl 20 Mg Tablet, 20 MG PO TID, (Reported) Docusate Sodium 100 Mg Capsule, 100 MG PO BID Prescribed by: JAKY HOBSON on 11/29/16 0704 Doxycycline Hyclate 100 Mg Tablet, 100 MG PO BID Prescribed by: CARMELA MISHRA on 08/18/17 1620 Dronabinol 10 Mg Capsule, 10 MG PO BID, (Reported) Elvitegr/Cobicist/Emtric/Tenof 1 Each Tablet, 1 EACH PO DAILY, (Reported) Ibuprofen 800 Mg Tablet, 800 MG PO Q6HR Prescribed by: JAKY HOBSON on 11/29/16 0704 Methocarbamol 750 Mg Tablet, 750 MG PO Q8H, (Reported) Naproxen 500 Mg Tablet, 500 MG PO BID PRN for PAIN-MODERATE Prescribed by: VINITA GREER on 08/19/17 1213 Naproxen 500 Mg Tablet, 500 MG PO BID Prescribed by: DALLAS RICE on 03/22/18 1545 Ondansetron HCl 8 Mg Tablet, 8 MG PO Q8H PRN for NAUSEA/VOMITING-1ST LINE, ( Reported) Oxycodone HCl/Acetaminophen 1 Each Tablet, 1-2 TAB PO Q4HR PRN for PAIN- MODERATE TO SEVERE Prescribed by: JAKY HOBSON on 11/29/16 0704 Potassium Chloride 20 Meq Tab.er.prt, 20 MEQ PO BID Prescribed by: DALLAS IRCE on 06/14/18 1456 Patient Home Medication List Home Medication List Reviewed: Yes Review of Systems Review of Systems Constitutional: see HPI; No chills, No fever Respiratory: see HPI, cough, short of breath, wheezing All Other Systems Reviewed Negative Unless Noted: Yes Past Ijlkfvt-Iqryqi-Svabnz Hx Past Med/Social Hx: Reviewed Nursing Past Med/Soc Hx Patient Social History Type Used: Cigarettes 2nd Hand Smoke Exposure: Yes Recent Foreign Travel: No Contact w/Someone Who Travel: No Recent Infectious Disease Expo: Yes (PT HAS HIV) Recent Hopitalizations: No Immunizations Up To Date Tetanus Booster (TDap): Less than 5yrs Date of Pneumonia Vaccine: Mar 16, 2014 Date of Influenza Vaccine: Dec 24, 2015 Seasonal Allergies Seasonal Allergies: No Past Medical History Surgeries: Yes (RUDDY 2010 WITH ERCP) Gallbladder, Tubal Ligation Respiratory: Yes Asthma Cardiac: No Neurological: Yes Headaches /Migraines : No 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 Disorders: Yes (CPP, AUB) Female 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 Sexually Transmitted Disease: No HIV/AIDS: Yes Genitourinary: No Gastrointestinal: Yes Abdominal Hernia Musculoskeletal: Yes Back Injury, Chronic Back Pain Endocrine: No HEENT: No Loss of Vision: Denies Hearing Impairment: Denies Cancer: No Psychosocial: Yes Anxiety Integumentary: No Blood Disorders: Yes (HIV) Adverse Reaction/Blood Tranf: No Family Medical History Reviewed Nursing Family Hx No Pertinent Family Hx, Cancer, Hypertension Physical Exam Vital Signs - First Documented 07/29/18 14:17 Temp 98.9 Pulse 90 Resp 20 B/P (MAP) 113/86 (95) Pulse Ox 99 O2 Delivery Room Air Capillary Refill : Less Than 3 Seconds Height: 5'5.00" Weight: 120lbs. 0oz. 54.335197vm; 24.2 BMI Method:Stated General Appearance: WD/WN, no apparent distress HEENT: PERRL/EOMI Respiratory: chest non-tender, no respiratory distress, no accessory muscle use , crackles, wheezing (crackles and wheezes throughout lung timmons.) Cardiovascular: normal peripheral pulses, regular rate, rhythm, no edema, no gallop, no JVD, no murmur Neurologic/Psychiatric: alert, normal mood/affect, oriented x 3 Skin: normal color, warm/dry Focused Exam Lactate Level 07/29/18 15:40: Lactic Acid Level 1.01 Lactic Acid Level Laboratory Tests Test 07/29/18 15:40 Lactic Acid Level 1.01 MMOL/L (0.50-2.00) Progress/Results/Core Measures Suspected Sepsis Recent Fever Within 48 Hours: No Infection Criteria Present: None New/Unexplained Altered Menta: No Sepsis Screen: No Definite Risk SIRS Temperature:98.9 Pulse: 90 Respiratory Rate: 20 Laboratory Tests 07/29/18 14:17: White Blood Count 2.7L Blood Pressure 113 /86 Mean: 95 07/29/18 15:40: Lactic Acid Level 1.01 Laboratory Tests 07/29/18 14:17: Creatinine 1.71H, Platelet Count 349, Total Bilirubin 0.2 Results/Orders Lab Results Laboratory Tests Test 07/29/18 14:17 07/29/18 15:40 Range/Units White Blood Count 2.7 L 4.3-11.0 10^3/uL Red Blood Count 3.61 L 4.35-5.85 10^6/uL Hemoglobin 9.7 L 11.5-16.0 G/DL Hematocrit 29 L 35-52 % Mean Corpuscular Volume 81 80-99 FL Mean Corpuscular Hemoglobin 27 25-34 PG Mean Corpuscular Hemoglobin Concent 33 32-36 G/DL Red Cell Distribution Width 21.1 H 10.0-14.5 % Platelet Count 349 130-400 10^3/uL Mean Platelet Volume 7.4-10.4 FL Neutrophils (%) (Auto) 74 42-75 % Lymphocytes (%) (Auto) 16 12-44 % Monocytes (%) (Auto) 7 0-12 % Eosinophils (%) (Auto) 2 0-10 % Basophils (%) (Auto) 1 0-10 % Neutrophils # (Auto) 2.0 1.8-7.8 X 10^3 Lymphocytes # (Auto) 0.4 L 1.0-4.0 X 10^3 Monocytes # (Auto) 0.2 0.0-1.0 X 10^3 Eosinophils # (Auto) 0.1 0.0-0.3 10^3/uL Basophils # (Auto) 0.0 0.0-0.1 10^3/uL D-Dimer 0.86 H 0.00-0.49 UG/ML Sodium Level 140 135-145 MMOL/L Potassium Level 3.0 L 3.6-5.0 MMOL/L Chloride Level 109 H 98-107 MMOL/L Carbon Dioxide Level 18 L 21-32 MMOL/L Anion Gap 13 5-14 MMOL/L Blood Urea Nitrogen 20 H 7-18 MG/DL Creatinine 1.71 H 0.60-1.30 MG/DL Estimat Glomerular Filtration Rate 33 BUN/Creatinine Ratio 12 Glucose Level 90 70-105 MG/DL Calcium Level 9.2 8.5-10.1 MG/DL Corrected Calcium 9.8 8.5-10.1 MG/DL Total Bilirubin 0.2 0.1-1.0 MG/DL Aspartate Amino Transf (AST/SGOT) 13 5-34 U/L Alanine Aminotransferase (ALT/SGPT) 12 0-55 U/L Alkaline Phosphatase 111 40-136 U/L Total Protein 6.7 6.4-8.2 GM/DL Albumin 3.3 3.2-4.5 GM/DL Lactic Acid Level 1.01 0.50-2.00 MMOL/L My Orders Orders - BERNOT,ALBERT Cbc With Automated Diff (07/29/18 14:13) Comprehensive Metabolic Panel (07/29/18 14:13) Fibrin Degradation Products (07/29/18 14:13) Ekg Tracing (07/29/18 14:13) O2 (07/29/18 14:13) Ed Iv/Invasive Line Start (07/29/18 14:13) Monitor-Rhythm Ecg Trace Only (07/29/18 14:13) Chest Pa/Lat (2 View) (07/29/18 14:13) Ketorolac Injection (Toradol Injection) (07/29/18 14:15) Albuterol Pre-Mix Nebs (Rt) (Proventil (07/29/18 14:30) Albuterol/Ipra Inhalation Soln (Duoneb I (07/29/18 14:30) Lactic Acid Analyzer (07/29/18 15:24) Blood Culture (07/29/18 15:24) Influenza A And B Antigens (07/29/18 15:24) Sputum Culture (07/29/18 15:24) Fentanyl Injection (Sublimaze Injection (07/29/18 15:30) Ns Iv 1000 Ml (Sodium Chloride 0.9%) (07/29/18 16:00) Medications Given in ED Current Medications Medications Dose Ordered Sig/Nani Route Start Time Stop Time Status Last Admin Dose Admin Albuterol Sulfate 2.5 mg STK-MED ONCE .ROUTE 07/29/18 14:30 07/29/18 14:34 DC 07/29/18 14:42 2.5 MG Albuterol/ Ipratropium 3 ml STK-MED ONCE .ROUTE 07/29/18 14:30 07/29/18 14:34 DC 07/29/18 14:37 3 ML Fentanyl Citrate 50 mcg ONCE ONCE IVP 07/29/18 15:30 07/29/18 15:31 DC 07/29/18 15:55 50 MCG Ketorolac Tromethamine 30 mg ONCE ONCE IVP 07/29/18 14:15 07/29/18 14:17 DC 07/29/18 14:27 30 MG Vital Signs/I&O 07/29/18 07/29/18 07/29/18 07/29/18 14:17 14:27 14:37 14:42 Temp 98.9 98.9 Pulse 90 Resp 20 B/P (MAP) 113/86 (95) Pulse Ox 99 97 97 O2 Delivery Room Air Room Air Room Air Capillary Refill : Less Than 3 Seconds Blood Pressure Mean: 95 Progress Note : Time: 16:15 Progress Note I have seen and evaluated the patient. Her lung sounds have improved after breathing treatments. I have discussed the case with Dr. mcclelland at this time and she agrees to admit the patient to her services. The patient was placed on Zosyn and vancomycin for x-ray findings consistent with pneumonia. Patient agrees with plan of care. Diagnostic Imaging Diagonstic Imaging: Xray Plain Films/CT/US/NM/MRI: chest Comments NAME: VANESSADANYELLE Hutn MED REC#: [id number] PT STATUS: REG ER : 1975 PHYSICIAN: ALBERT WALKER ADMIT DATE: 07/29/18/ER Signed Date of Exam: 07/29/18 CHEST PA/LAT (2 VIEW) Indication: Coughing x1 week PA and lateral chest There is infiltrate and/or atelectasis present in the right middle lobe. There may also be some patchy infiltrate in the lingular segment of the left upper lobe. Impression: Right middle lobe consolidation could represent pneumonia. Dictated by: Dictated on workstation # [id number] Dict: 07/29/18 151 Trans: 07/29/181511 Interpreted by: CRISTAL LAKHANI MD Electronically signed by: CRISTAL LAKHANI MD 07/29/18 151 Reviewed: Reviewed by Me Departure Communication (Admissions) Time/Spoke to Admitting Phy: 16:15 Dr. Guerin Impression Primary Impression: Pneumonia Additional Impressions: Elevated d-dimer HIV disease Disposition: ADMITTED INPATIENT Condition: Stable/Unchanged Admissions Decision to Admit Reason: Admit from ER (General) Decision to Admit/Date: July 29, 2018 Time/Decision to Admit Time: 16:36 Departure-Patient Inst. Referrals: AZAR GOINS MD (PCP/Family) Primary Care Physician ALBERT WALEKR July 29, 2018 16:11
[2018-07-29] MEDS ORDERED: ENOXAPARIN 60 MG/0.6 ML (LOVENOX) SYR SC ONE (16:30)
[2018-07-29] MEDS ORDERED: PIPERACILLIN/TAZOBACTAM (BULK) 4.5 GM in NS (IVPB) 100 ML IV ONE (16:45)
--- NOTE | 2018-07-29 17:50 | NUR ---
DANYELLE MENDEZ admitted to room 424-1, with an admitting diagnosis of PNEUMONIA, ELEVATED D-DIMER, on 07/29/18 from ED via , accompanied by STAFF. DANYELLE MENDEZ introduced to surroundings, call light, bed controls, phone, TV, temperature control, lights, meal times, smoking policy, visitor policy, side rail policy, bathrooms and showers. Patient Rights given to patient in the handbook. DANYELLE MENDEZ verbalizes understanding that [facility] is not responsible for the loss or damage to any personal effects or valuables that are kept in the patients posession during their hospitalization. DANYELLE MENDEZ verbalizes understanding of Interdisciplinary Patient Education. Patient and/or family were informed about the Rapid Response Team and its purpose.
[2018-07-29 17:58] VITALS: BP 101/68
[2018-07-29] MEDS: fentaNYL INJECTION 100 MCG/2 ML AMP IV PRN ×3 (18:13→22:44)
[2018-07-29] MEDS ORDERED: CATHETER FLUSH 10 ML SYR IV PRN (18:15)
[2018-07-29] MEDS: NS IV 1000 ML 1,000 ML IV SCH (18:16)
[2018-07-29] MEDS: LEVOFLOXACIN 750 MG/D5W 150 ML PRE-MIX IV SCH (18:20)
[2018-07-29 19:23] VITALS: BP 101/68
[2018-07-29] MEDS: ONDANSETRON 4 MG/2 ML (SDV) Z0FRAN IVP PRN (19:31)
[2018-07-29] MEDS ORDERED: RT-ALBUTEROL SULF 2.5 MG/3 ML PRE-MIX VIAL INH PRN (19:45)
[2018-07-29 20:01] VITALS: BP 114/68
[2018-07-29] MEDS: oxyCODONE/APAP 10/325MG (PERCOCET 10) TABLET PO PRN (21:27)
--- NOTE | 2018-07-29 21:30 | NUR ---
PT. COMPLAINING OF PAIN, UNRELIEVED BY THE [facility] Q2HRS. MED REC LIST SHOWS PT TAKES OXYCODONE DR. LORD NOTIFIED, NEW ORDERS RECEIVED: OK TO RESTART OXYCODONE.
[2018-07-29] MEDS: RT-ALBUTEROL/IPRATROPIUM 3 ML (DUONEB) VIAL INH SCH (21:51)
[2018-07-29] MEDS ORDERED: NICOTINE 21 MG (NICODERM) PATCH ONE (23:24)
[2018-07-29] MEDS: NICOTINE 21 MG (NICODERM) PATCH TD SCH (23:28)
[2018-07-29] MEDS ORDERED: PIPERACILLIN/TAZO 4.5 GM VIAL (ZOSYN) IV ONE (23:33)
[2018-07-29] MEDS ORDERED: NS (IVPB) 100 ML ONE (23:34)
[2018-07-29 23:35] VITALS: BP 97/58
[2018-07-29] MEDS: PIPERACILLIN/TAZO 4.5 GM/NS 100 ML IV SCH ×2 (23:51)
[2018-07-30] MEDS: oxyCODONE/APAP 10/325MG (PERCOCET 10) TABLET PO PRN ×4 (01:45→20:14)
[2018-07-30] MEDS: RT-ALBUTEROL/IPRATROPIUM 3 ML (DUONEB) VIAL INH SCH ×6 (02:11→23:08)
[2018-07-30] MEDS: ONDANSETRON 4 MG/2 ML (SDV) Z0FRAN IVP PRN ×3 (02:21→20:16)
[2018-07-30 04:40] VITALS: BP 99/64
[2018-07-30] MEDS: fentaNYL INJECTION 100 MCG/2 ML AMP IV PRN (04:41)
[2018-07-30 06:36] LABS: BASOPHILS % (AUTO) 0 % (0-10); EOSINOPHILS % (AUTO) 1 % (0-10); HEMATOCRIT 24 % (35-52); HEMOGLOBIN 7.8 G/DL (11.5-16.0); LYMPHOCYTES # (AUTO) 0.3 X 10^3 (1.0-4.0); LYMPHOCYTES % (AUTO) 15 % (12-44); MEAN CORPUSCULAR HEMOGLOBIN 27 PG (25-34); MEAN CORPUSCULAR HGB CONC 33 G/DL (32-36); MEAN CORPUSCULAR VOLUME 82 FL (80-99); MONOCYTES # (AUTO) 0.2 X 10^3 (0.0-1.0); MONOCYTES % (AUTO) 10 % (0-12); NEUTROPHILS # (AUTO) 1.7 X 10^3 (1.8-7.8); NEUTROPHILS % (AUTO) 74 % (42-75); PLATELET COUNT 261 10^3/uL (130-400); RED CELL DISTRIBUTION WIDTH 22.4 % (10.0-14.5); WHITE BLOOD COUNT 2.3 10^3/uL (4.3-11.0)
[2018-07-30 06:59] LABS: ALBUMIN 2.9 GM/DL (3.2-4.5); BILIRUBIN,TOTAL 0.2 MG/DL (0.1-1.0); CALCIUM 8.4 MG/DL (8.5-10.1); CREATININE SERUM 1.33 MG/DL (0.60-1.30); POTASSIUM 2.6 MMOL/L (3.6-5.0); TOTAL PROTEIN 5.5 GM/DL (6.4-8.2)
[2018-07-30 07:45] VITALS: BP 95/61
[2018-07-30] MEDS: NS IV 1000 ML 1,000 ML IV SCH ×2 (08:51→20:11)
[2018-07-30] MEDS: NICOTINE 21 MG (NICODERM) PATCH TD SCH (09:00)
[2018-07-30] MEDS: PIPERACILLIN/TAZO 4.5 GM/NS 100 ML IV SCH ×6 (09:08→23:36)
[2018-07-30] MEDS: KCL 20 MEQ TAB (K-DUR) PO SCH ×2 (09:44→20:11)
[2018-07-30] MEDS ORDERED: IBUP-30 PO (11:02)
[2018-07-30] MEDS ORDERED: ONDA8TAB13 PO (11:02)
[2018-07-30] MEDS ORDERED: NAPR-915 PO (11:02)
[2018-07-30] MEDS ORDERED: METH500T7 PO (11:02)
[2018-07-30] MEDS ORDERED: ALBU2.5V4 NEB (11:02)
[2018-07-30] MEDS ORDERED: RT-ALBUINH INH (11:02)
[2018-07-30] MEDS ORDERED: ELVI1TAB3 PO (11:02)
--- NOTE | 2018-07-30 11:11 | NUR ---
SPOKE WITH THE PATIENT ABOUT HER MEDICATIONS. WE WENT OVER THE EXT MED HX AND SHE VERIFIED HOW SHE TAKES THEM. SHE STATES SHE IS NO LONGER TAKING THE HYDROXYZINE, SHE DID NOT FEEL IT WORKED. SHE REPORTS SHE IS SUPPOSED TO BE TAKING DAPSONE AND AZITHROMYCIN HOWEVER HAS NOT FILLED THEM RECENTLY. I DID NOT INCLUDE THEM ON THE MED REC. [facility] DID NOT HAVE RECORD OF AZITHROMYCIN BEING DISPENSED AND THEY HAVE NOT DISPENSED THE DAPSONE 100MG DAILY #30 SINCE 12-11-17. SHE IS PAST DUE FOR REFILL ON HER EVELYNE, IT WAS LAST FILLED #30 04-22-18 ACCORDING TO THE EXT MED HX AND THE BOTTLE SHE BROUGHT IN. SHE STATES SHE DOES TAKE THIS HOWEVER. SHE HAD A SUPPLY BUILT UP ON HAND. I NOTED THE LAST FILL DATE ON THE MED REC.
[2018-07-30 12:00] VITALS: BP 95/54
[2018-07-30 15:17] VITALS: BP 106/57
--- NOTE | 2018-07-30 16:37 | History & Physicial (CHS) ---
HPI History of Present Illness: 43 yo F with known HIV that was sent from [facility] clinic after CXR was concerning for PNA. Patient has been having increasing shortness of breath for the last few days. Denies any fever or chills. States that her HIV labs have been good. Source: patient Exam Limitations: no limitations Date seen by provider: July 30, 2018 Time Seen by Provider: 10:35 Attending Physician Yamile Guerin MD PCP Harper Snell MD Consult Date of Admission July 29, 2018 at 16:10 Home Medications Home Medications Reviewed patient Home Medication Reconciliation performed by pharmacy medication reconciliations refresh technician and/or nursing. Patients Allergies have been reviewed. Allergies Coded Allergies: No Known Drug Allergies (Unverified , 07/29/18) [id number] Hx Patient Social History Alcohol Use: Denies Use Recreational Drug Use: No Type Used: Cigarettes 2nd Hand Smoke Exposure: Yes Recent Foreign Travel: No Contact w/other who traveled: No Recent Hopitalizations: No Recent Infectious Disease Expo: Yes (PT HAS HIV) Immunizations Up To Date Tetanus Booster (TDap): Less than 5yrs Date of Pneumonia Vaccine: Mar 16, 2014 Date of Influenza Vaccine: Dec 24, 2015 Past Medical History HIV Anemia Family Medical History Significant Family History: No Pertinent Family Hx, Cancer, Hypertension Family History: DVT 19 MOTHER, , Age:65 FH: COPD (chronic obstructive pulmonary disease) 19 MOTHER, , Age:65 FH: pulmonary embolism 19 MOTHER, , Age:65 Review of Systems ([facility]) Constitutional: No chills, No fever; malaise EENTM: no symptoms reported; No nose congestion, No throat pain Respiratory: cough, dyspnea on exertion Cardiovascular: no symptoms reported; No chest pain, No edema Gastrointestinal: no symptoms reported; No abdominal pain, No constipation, No diarrhea, No nausea, No vomiting Genitourinary: no symptoms reported; No dysuria, No frequency, No hematuria : No Musculoskeletal: no symptoms reported; No back pain, No joint pain, No muscle pain Skin: no symptoms reported Psychiatric/Neurological: No Symptoms Reported Reviewed Test Results Reviewed Test Results Lab Laboratory Tests Test 07/30/18 06:29 Range/Units White Blood Count 2.3 L 4.3-11.0 10^3/uL Red Blood Count 2.92 L 4.35-5.85 10^6/uL Hemoglobin 7.8 L 11.5-16.0 G/DL Hematocrit 24 L 35-52 % Mean Corpuscular Volume 82 80-99 FL Mean Corpuscular Hemoglobin 27 25-34 PG Mean Corpuscular Hemoglobin Concent 33 32-36 G/DL Red Cell Distribution Width 22.4 H 10.0-14.5 % Platelet Count 261 130-400 10^3/uL Mean Platelet Volume 7.4-10.4 FL Neutrophils (%) (Auto) 74 42-75 % Lymphocytes (%) (Auto) 15 12-44 % Monocytes (%) (Auto) 10 0-12 % Eosinophils (%) (Auto) 1 0-10 % Basophils (%) (Auto) 0 0-10 % Neutrophils # (Auto) 1.7 L 1.8-7.8 X 10^3 Lymphocytes # (Auto) 0.3 L 1.0-4.0 X 10^3 Monocytes # (Auto) 0.2 0.0-1.0 X 10^3 Eosinophils # (Auto) 0.0 0.0-0.3 10^3/uL Basophils # (Auto) 0.0 0.0-0.1 10^3/uL Sodium Level 139 135-145 MMOL/L Potassium Level 2.6 L 3.6-5.0 MMOL/L Chloride Level 110 H 98-107 MMOL/L Carbon Dioxide Level 16 L 21-32 MMOL/L Anion Gap 13 5-14 MMOL/L Blood Urea Nitrogen 16 7-18 MG/DL Creatinine 1.33 H 0.60-1.30 MG/DL Estimat Glomerular Filtration Rate 44 BUN/Creatinine Ratio 12 Glucose Level 61 L 70-105 MG/DL Calcium Level 8.4 L 8.5-10.1 MG/DL Corrected Calcium 9.3 8.5-10.1 MG/DL Total Bilirubin 0.2 0.1-1.0 MG/DL Aspartate Amino Transf (AST/SGOT) 12 5-34 U/L Alanine Aminotransferase (ALT/SGPT) 7 0-55 U/L Alkaline Phosphatase 105 40-136 U/L Total Protein 5.5 L 6.4-8.2 GM/DL Albumin 2.9 L 3.2-4.5 GM/DL Physical Exam-(CHC) Physical Exam Vital Signs VS - Last 72 Hours, by Label 5/16/07/29/18 07/29/18 07/29/18 14:17 14:27 14:37 14:42 Temp 98.9 98.9 Pulse 90 Resp 20 B/P (MAP) 113/86 (95) Pulse Ox 99 97 97 O2 Delivery Room Air Room Air Room Air 07/29/18 07/29/18 07/29/18 07/29/18 17:49 17:50 17:58 19:23 Temp 98.5 98.8 Pulse 85 80 80 Resp 20 20 B/P (MAP) 98/74 (82) 101/68 Pulse Ox 98 100 98 O2 Delivery Room Air Room Air Room Air 07/29/18 07/29/18 07/29/18 07/29/18 20:01 20:51 21:52 23:35 Temp 98.4 99.0 Pulse 90 85 Resp 20 20 B/P (MAP) 114/68 (83) 97/58 (71) Pulse Ox 100 98 97 O2 Delivery Room Air Room Air Room Air Room Air FiO2 21 07/30/18 07/30/18 07/30/18 07/30/18 02:11 04:40 07:03 07:45 Temp 97.4 99.0 Pulse 85 88 Resp 20 19 B/P (MAP) 99/64 (76) 95/61 (72) Pulse Ox 96 99 99 99 O2 Delivery Room Air Room Air Room Air Room Air O2 Flow Rate 0.00 07/30/18 07/30/18 07/30/18 07/30/18 08:00 11:05 12:00 14:36 Temp 98.8 Pulse 101 Resp 21 B/P (MAP) 95/54 (68) Pulse Ox 97 96 99 O2 Delivery Room Air Room Air Room Air Room Air O2 Flow Rate 0.00 Capillary Refill : Less Than 3 Seconds General Appearance: WD/WN, no apparent distress, thin HEENT: PERRL/EOMI, pharynx normal Neck: non-tender, full range of motion, supple Respiratory: chest non-tender, lungs clear, normal breath sounds, no respirat ory distress, no accessory muscle use Cardiovascular: normal peripheral pulses, regular rate, rhythm, no edema, no murmur Gastrointestinal: normal bowel sounds, non tender, soft, no organomegaly Back: no CVA tenderness, no vertebral tenderness Extremities: normal range of motion, non-tender, no pedal edema, no calf tenderness, normal capillary refill Neurologic/Psychiatric: logistics solution manager II-XII nml as tested, no motor/sensory deficits, alert, normal mood/affect, oriented x 3 Skin: normal color, warm/dry Lymphatic: no adenopathy Assessment/Plan Assessment/Plan Admission Status: Inpatient Order (span 2 midnights) Reason for Inpatient Admission: Needs IV antiboitics and IVFs (1) HIV disease Status: Acute Assessment & Plan: - Ok to use home meds (2) Pneumonia Status: Acute Assessment & Plan: - Antibiotics and MAT protocol, patient off oxygen Qualifiers: Qualified Codes: J18.9 - Pneumonia, unspecified organism (3) Acute renal failure Status: Acute Assessment & Plan: - IVFs, will continue to monitor BMP Qualifiers: Qualified Codes: N17.9 - Acute kidney failure, unspecified (4) Hypokalemia Status: Acute Assessment & Plan: - replaced and repeat BMP (5) Elevated d-dimer Status: Acute Assessment & Plan: - Delayed CTA due to elevated Cr, will order for AM, Continue ther lovenox Clinical Quality Measures DVT/VTE Risk/Contraindication: Risk Factor Score Per Nursin RFS Level Per Nursing on Admit: 3=High YAMILE GUERIN MD July 30, 2018 16:37
[2018-07-30 17:32] LABS: CALCIUM 8.3 MG/DL (8.5-10.1); CREATININE SERUM 1.22 MG/DL (0.60-1.30); POTASSIUM 2.6 MMOL/L (3.6-5.0)
[2018-07-30] MEDS ORDERED: PATIENT MAY USE OWN MED,SINGLE MED PO SCH (19:30)
[2018-07-31] VITALS: BP 99/63
[2018-07-31] MEDS: oxyCODONE/APAP 10/325MG (PERCOCET 10) TABLET PO PRN ×5 (01:50→19:36)
[2018-07-31] MEDS: RT-ALBUTEROL/IPRATROPIUM 3 ML (DUONEB) VIAL INH SCH ×5 (03:04→18:56)
[2018-07-31 04:00] VITALS: BP 95/57
[2018-07-31] MEDS: ONDANSETRON 4 MG/2 ML (SDV) Z0FRAN IVP PRN ×3 (06:38→21:36)
[2018-07-31] MEDS: GENVOYA PO SCH (06:38)
[2018-07-31] MEDS: PIPERACILLIN/TAZO 4.5 GM/NS 100 ML IV SCH ×6 (06:39→22:50)
[2018-07-31 07:35] LABS: BASOPHILS % (AUTO) 0 % (0-10); EOSINOPHILS # (AUTO) 0.1 10^3/uL (0.0-0.3); EOSINOPHILS % (AUTO) 3 % (0-10); HEMATOCRIT 23 % (35-52); HEMOGLOBIN 7.5 G/DL (11.5-16.0); LYMPHOCYTES # (AUTO) 0.3 X 10^3 (1.0-4.0); LYMPHOCYTES % (AUTO) 10 % (12-44); MEAN CORPUSCULAR HEMOGLOBIN 27 PG (25-34); MEAN CORPUSCULAR HGB CONC 33 G/DL (32-36); MEAN CORPUSCULAR VOLUME 82 FL (80-99); MONOCYTES # (AUTO) 0.3 X 10^3 (0.0-1.0); MONOCYTES % (AUTO) 10 % (0-12); NEUTROPHILS # (AUTO) 2.4 X 10^3 (1.8-7.8); NEUTROPHILS % (AUTO) 77 % (42-75); PLATELET COUNT 216 10^3/uL (130-400); RED CELL DISTRIBUTION WIDTH 21.9 % (10.0-14.5); WHITE BLOOD COUNT 3.2 10^3/uL (4.3-11.0)
[2018-07-31 07:56] LABS: CALCIUM 8.2 MG/DL (8.5-10.1); CREATININE SERUM 1.11 MG/DL (0.60-1.30); POTASSIUM 3.5 MMOL/L (3.6-5.0)
[2018-07-31 08:00] VITALS: BP 102/64
[2018-07-31] MEDS ORDERED: [UNRECOGNIZED DRUG - OTHER] PO SCH (09:00)
[2018-07-31] MEDS: NICOTINE 21 MG (NICODERM) PATCH TD SCH (09:21)
[2018-07-31 12:00] VITALS: BP 105/66
[2018-07-31] MEDS ORDERED: LEVO750T9 PO (15:28)
[2018-07-31] MEDS ORDERED: KCL 20 MEQ TAB (K-DUR) PO NR (15:29)
[2018-07-31 15:51] VITALS: BP 96/62
--- NOTE | 2018-07-31 16:12 | NUR ---
CT SCAN DONE, PATIENT C/O NAUSEA, ZOFRAN NOT DUE UNTIL 2029, DR POWER NOTIFIED, MAG 1.6, ORDER GIVEN FOR PO MAG, IV SITE WITHOUT REDNESS OR SWELLING, C/O BACK PAIN.
[2018-07-31] MEDS ORDERED: MAGNESIUM OXIDE (MAG-OX)400 MG TAB PO NR (16:15)
--- NOTE | 2018-07-31 16:53 | Diagnostic Imaging Report ---
PROCEDURE: CT angiography of the chest with contrast. TECHNIQUE: Multiple contiguous axial images were obtained through the chest after uneventful bolus administration of intravenous contrast. 2D reconstructed CTA MIP acquisitions were also performed. Auto Exposure Controls were utilized during the CT exam to meet ALARA standards for radiation dose reduction. INDICATION: Chest pain and shortness of breath. FINDINGS: There is some focal atelectasis and/or pneumonitis in the posterior aspect of the right middle lobe. There is also focal consolidation in the anterior aspect of the left lower lobe. There is some centrilobular emphysematous disease. There is a patchy right upper lobe infiltrate. There is no pleural or pericardial fluid. There is no pneumothorax. There is no pathologically enlarged adenopathy of the chest. The thoracic aorta is normal in caliber without evidence of dissection. There are no filling defects within the pulmonary arteries to suggest pulmonary embolism. There is mild thoracic spondylosis. The visualized intra-abdominal structures are unremarkable. IMPRESSION: 1. No evidence of pulmonary embolism or aortic dissection. 2. Right upper lobe, right middle lobe and left basilar infiltrates suspect for atypical pneumonia. 3. Diffuse centrilobular emphysema. Dictated by: Dictated on workstation # [id number]
--- NOTE | 2018-07-31 17:12 | Progress Note (SOAP) ---
Subjective Subjective/Events-last exam Pt has not required oxygen since admission. Cr improved. CTA to r/o PE is pending. Pt poor historian regarding her HIV. Review of clinic records shows she was suppose to have labs done earlier this month but it does not appear they have been drawn. She had been inconsistent/non-compliant with medication regimen. Review of Systems Date Seen by Provider: July 31, 2018 Time Seen by Provider: 07:25 Focused Exam Lactate Level 07/29/18 15:40: Lactic Acid Level 1.01 Objective Exam Last Set of Vital Signs Vital Signs Date Time Temp Pulse Resp B/P (MAP) Pulse Ox O2 Delivery O2 Flow Rate FiO2 07/31/18 15:51 98.4 100 20 96/62 (73) 97 Room Air 07/30/18 12:00 0.00 07/29/18 21:52 21 Capillary Refill : Less Than 3 Seconds I&O Intake and Output 07/31/18 00:00 Intake Total 2622 ml Output Total 1 ml Balance 2621 ml Intake Oral 2622 ml Output Emesis 1 ml # Voids 7 General: Alert, Oriented X3, Cooperative, No Acute Distress Lungs: Clear to Auscultation Heart: Regular Rate Psych/Mental Status: Mental Status NL Results/Procedures Lab Laboratory Tests 07/31/18 07:07: White Blood Count 3.2L, Red Blood Count 2.78L, Hemoglobin 7.5L, Hematocrit 23L, Mean Corpuscular Volume 82, Mean Corpuscular Hemoglobin 27, Mean Corpuscular Hemoglobin Concent 33, Red Cell Distribution Width 21.9H, Platelet Count 216, Mean Platelet Volume , Neutrophils (%) (Auto) 77H, Lymphocytes (%) (Auto) 10L, Monocytes (%) (Auto) 10, Eosinophils (%) (Auto) 3, Basophils (%) (Auto) 0, Neutrophils # (Auto) 2.4, Lymphocytes # (Auto) 0.3L, Monocytes # (Auto) 0.3, Eosinophils # (Auto) 0.1, Basophils # (Auto) 0.0, Sodium Level 138, Potassium Level 3.5L, Chloride Level 114H, Carbon Dioxide Level 14L, Anion Gap 10, Blood Urea Nitrogen 9, Creatinine 1.11, Estimat Glomerular Filtration Rate 54, BUN/Creatinine Ratio 8, Glucose Level 82, Calcium Level 8.2L, Magnesium Level 1.6L Microbiology 07/29/18 Blood Culture - Preliminary, Resulted No growth 07/29/18 Influenza Types A,B Antigen ([facility]LEY) - Final, Complete Assessment/Plan Assessment/Plan (1) HIV disease Status: Acute Assessment & Plan: - Ok to use home meds (2) Pneumonia Status: Acute Assessment & Plan: - Antibiotics and MAT protocol, patient not requiring oxygen' 07/31 - on Zosyn and Levaquin - CTA shows infiltrate in the R upper and middle lobes and L lower c/w atypical pneumonia. Qualifiers: Qualified Codes: J18.9 - Pneumonia, unspecified organism (3) Acute renal failure Status: Acute Assessment & Plan: - IVFs, will continue to monitor BMP 07/31 - suspect [place] on CKD; Cr improving Qualifiers: Qualified Codes: N17.9 - Acute kidney failure, unspecified (4) Hypokalemia Status: Acute Assessment & Plan: - replaced and repeat BMP (5) Elevated d-dimer Status: Acute Assessment & Plan: - Delayed CTA due to elevated Cr, will order for AM, Continue ther lovenox 07/31 - CTA negative for PE; infiltrate c/w atypical pneumonia Clinical Quality Measures DVT/VTE Risk/Contraindication: Risk Factor Score Per Nursin RFS Level Per Nursing on Admit: 3=High SIRENA POWER DO July 31, 2018 17:12
[2018-07-31] MEDS ORDERED: PROMETHAZINE INJ 25 MG/ML (PHENERGAN) AMP IVP ONE (17:15)
--- NOTE | 2018-07-31 17:15 | NUR ---
VOMITED UNDIGESTED FOOD, C/O NAUSEA, DR POWER NOTIFIED AND ORDER GIVEN FOR PHENERGAN 25MG IV TIMES ONE
[2018-07-31] MEDS: NS IV 1000 ML 1,000 ML IV SCH ×2 (17:37→23:41)
[2018-07-31] MEDS: LEVOFLOXACIN 750 MG/D5W 150 ML PRE-MIX IV SCH (19:50)
[2018-07-31 20:00] VITALS: BP 101/63
[2018-08-01] VITALS: BP 98/55
[2018-08-01] MEDS: oxyCODONE/APAP 10/325MG (PERCOCET 10) TABLET PO PRN ×2 (02:52→08:18)
[2018-08-01 04:00] VITALS: BP 113/61
[2018-08-01] MEDS: ONDANSETRON 4 MG/2 ML (SDV) Z0FRAN IVP PRN (05:57)
[2018-08-01] MEDS: GENVOYA PO SCH (05:57)
[2018-08-01] MEDS: PIPERACILLIN/TAZO 4.5 GM/NS 100 ML IV SCH ×2 (05:57)
[2018-08-01] MEDS: RT-ALBUTEROL/IPRATROPIUM 3 ML (DUONEB) VIAL INH SCH ×2 (06:36→10:40)
[2018-08-01 08:00] VITALS: BP 114/65
[2018-08-01] MEDS ORDERED: FERROUS SULF 325 MG (IRON) TAB PO SCH (08:00)
[2018-08-01] MEDS: NICOTINE 21 MG (NICODERM) PATCH TD SCH (08:18)
[2018-08-01 08:50] LABS: BASOPHILS % (AUTO) 1 % (0-10); EOSINOPHILS % (AUTO) 2 % (0-10); HEMATOCRIT 22 % (35-52); HEMOGLOBIN 7.3 G/DL (11.5-16.0); LYMPHOCYTES # (AUTO) 0.2 X 10^3 (1.0-4.0); LYMPHOCYTES % (AUTO) 11 % (12-44); MEAN CORPUSCULAR HEMOGLOBIN 26 PG (25-34); MEAN CORPUSCULAR HGB CONC 33 G/DL (32-36); MEAN CORPUSCULAR VOLUME 81 FL (80-99); MONOCYTES # (AUTO) 0.2 X 10^3 (0.0-1.0); MONOCYTES % (AUTO) 9 % (0-12); NEUTROPHILS # (AUTO) 1.6 X 10^3 (1.8-7.8); NEUTROPHILS % (AUTO) 78 % (42-75); PLATELET COUNT 235 10^3/uL (130-400); RED CELL DISTRIBUTION WIDTH 22.3 % (10.0-14.5); WHITE BLOOD COUNT 2.1 10^3/uL (4.3-11.0)
[2018-08-01 09:09] LABS: CALCIUM 8.3 MG/DL (8.5-10.1); CREATININE SERUM 1.14 MG/DL (0.60-1.30); POTASSIUM 3.1 MMOL/L (3.6-5.0)
[2018-08-01] MEDS ORDERED: FERR325T18 PO (12:09)
--- NOTE | 2018-08-01 12:11 | Discharge Summary ---
Diagnosis/Chief Complaint Date of Admission July 29, 2018 at 16:10 Date of Discharge July 31, 2018 Admission Diagnosis Admission Diagnosis 1. Pneumonia 2. elevated d-dimer 3. HIV Discharge Diagnosis see Problems List Problems/Diagnosis: (1) HIV disease Assessment & Plan: - Ok to use home meds 08/01 - scheduled to f/u with Dr. Hayes 08/02 to f/u regarding HIV treatment Status: Chronic (2) Pneumonia Assessment & Plan: - Antibiotics and MAT protocol, patient not requiring oxygen' 07/31 - on Zosyn and Levaquin - CTA shows infiltrate in the R upper and middle lobes and L lower c/w atypical pneumonia. 08/01 - DC home w/ rx for po Levaquin Qualifiers: Qualified Codes: J18.9 - Pneumonia, unspecified organism Status: Acute (3) Acute renal failure Assessment & Plan: - IVFs, will continue to monitor BMP 07/31 - suspect [place] on CKD; Cr improving 08/01 - Cr 1.14 on DC Qualifiers: Qualified Codes: N17.9 - Acute kidney failure, unspecified Status: Acute (4) Hypokalemia Assessment & Plan: - replaced and repeat BMP Status: Acute (5) Elevated d-dimer Assessment & Plan: - Delayed CTA due to elevated Cr, will order for AM, Continue ther lovenox 07/31 - CTA negative for PE; infiltrate c/w atypical pneumonia Status: Acute (6) Anemia, iron deficiency Assessment & Plan: - asymptomatic; start on ferrous sulfate Qualifiers: Qualified Codes: D50.9 - Iron deficiency anemia, unspecified Status: Chronic Chief Complaint/HPI Chief Complaint/HPI 43 yo F with known HIV that was sent from [facility] clinic after CXR was concerning for PNA. Patient has been having increasing shortness of breath for the last few days. Denies any fever or chills. States that her HIV labs have been good. Discharge Summary-Simple/Stand Consultations Discharge Physical Examination Allergies: Coded Allergies: No Known Drug Allergies (Unverified , 07/29/18) Vitals & I&Os Vital Sign - Last 12Hours Date Time Temp Pulse Resp B/P (MAP) Pulse Ox O2 Delivery O2 Flow Rate FiO2 08/01/18 10:42 98 Room Air 08/01/18 08:00 98.9 104 20 114/65 (81) 07/31/18 19:11 21 07/30/18 12:00 0.00 Intake and Output 08/01/18 00:00 Intake Total 2860 ml Balance 2860 ml General Appearance: Alert, Oriented X3, Cooperative Respiratory: Clear to Auscultation Cardiovascular: Regular Rate Neuro: Normal Gait, Normal Speech Hospital Course See final discharge diagnosis. Discharge Instructions to patient/family Please see electronic discharge instructions given to patient. Discharge [facility] Discharge Medications New, Converted or Re-Newed RX: Transmitted to Pharmacy ([facility]) New Medications: Levofloxacin (Levaquin) 750 Mg Tablet 750 MG PO DAILY for 5 Days, #5 TAB 0 Refills Ferrous Sulfate (Ferrous Sulfate) 325 Mg Tablet 325 MG PO BID WITH MEALS, #60 TAB 3 Refills Continued Medications: Albuterol Sulfate (Proair Hfa) 1 Puff Puff 2 PUFF INH Q4H PRN for SHORTNESS OF BREATH, INHALER Albuterol Sulfate (Albuterol Sulfate) 2.5 Mg/3 Ml Vial.neb 2.5 MG NEB Q4H PRN for SHORTNESS OF BREATH, EA Dronabinol (Dronabinol) 10 Mg Capsule 10 MG PO TID, CAP Elviteg/Venessa/Emtric/Tenofo Ala (Genvoya Tablet) 1 Each Tablet 1 TAB PO DAILY, TAB LAST FILLED #30 04-22-19 Methocarbamol (Methocarbamol) 500 Mg Tablet 500-750 MG PO TID PRN for MUSCLE SPASMS, TAB Ondansetron (Ondansetron Odt) 8 Mg Tab.rapdis 8 MG PO Q8H PRN for NAUSEA/VOMITING-1ST LINE, TAB Discontinued Medications: Ibuprofen (Advil) 200 Mg Tablet 400 MG PO Q8H PRN for PAIN-MILD, TAB Naproxen (Naproxen) 500 Mg Tablet 500 MG PO BID PRN for PAIN-MILD, TAB Patient Instructions Goal/Follow Up Appt: Follow up with Dr. Hayes 08/02/18 at 4pm Activity & Diet Discharge Diet: No Restrictions SIRENA POWER DO July 31, 2018 15:34 [id number] <Created by SIRENA POWER DO> <Electronically signed by SIRENA POWER DO> 08/01/18 1210 ADDENDUM REPORT Addendum: SIRENA POWER DO on 08/01/18 @ 12:20 RX given from Tramadol 50mg #4 tablets until patient follows up with Dr. Hayes tomorrow. <Created by SIRENA POWER DO 08/01/18 1220 <Electronically signed by Discharge Medications Reviewed and agree with Discharge Medication list on patient's Discharge Instruction sheet Clinical Quality Measures DVT/VTE Risk/Contraindication: Risk Factor Score Per Nursin RFS Level Per Nursing on Admit: 3=High Copy Copies To 1: SHERICE HAYES MD, LINDA K DO August 01, 2018 12:10
[2018-08-01] MEDS ORDERED: TRAM50TA2 PO (12:18)
[2018-08-01 12:45] VITALS: BP 114/65
== END 2018-08-01 12:45 | disposition home or self-care (01) | DRG 975 ==
LOC: EDUNIT# 14:05 → ER 14:06 → 4TH 16:10
PROVIDERS: ADMIT Family Medicine; ATTEND Family Medicine
DX: B20 Human immunodeficiency virus [HIV] disease (principal); J18.1 Lobar pneumonia, unspecified organism; N17.9 Acute kidney failure, unspecified; E87.6 Hypokalemia; D50.9 Iron deficiency anemia, unspecified; J45.909 Unspecified asthma, uncomplicated; F41.9 Anxiety disorder, unspecified; F17.210 Nicotine dependence, cigarettes, uncomplicated; Z91.14 Patient's other noncompliance with medication regimen
CPT/HCPCS: 36415; 71046; 71275; 80048; 80053; 82728; 83540; 83605; 83735; 85025; 85379; 87040; 87804; 93005; 93041; 94640; 94760; 96361; 96365; 96372; 96375

== ENCOUNTER 2018-10-09 22:43 | Emergency (ER) | payer BC, MEDICAID ==
[~2018-10-09] VITALS: Ht 165.1 cm; Wt 59.0 kg
[~2018-10-09 22:43] MED LIST changes: +ALBU2.5V4 NEB; +ELVI1TAB3 PO; +FERR325T18 PO; +IBUP-30 PO; +LEVO750T9 PO; +METH500T7 PO; +NAPR-915 PO; +ONDA8TAB13 PO; +RT-ALBUINH INH; +TRAM50TA2 PO
--- NOTE | 2018-10-09 22:45 | NUR ---
patient arrives to ER Registration by POV in acute respiritory distress. taken via wheelchair to room 4. Dr Granger to room at 2250
[2018-10-09] MEDS ORDERED: methylPREDNISolone 125 MG (Solu-MEDROL) VIAL IV STA (22:50)
[2018-10-09] MEDS ORDERED: RT-ALBUTEROL SULF 2.5 MG/3 ML PRE-MIX VIAL INH STA (22:50)
[2018-10-09] MEDS ORDERED: NS IV 1000 ML 1,000 ML IV SCH ×2 (22:57→23:49)
[2018-10-09] MEDS ORDERED: AZITHROMYCIN INJECTION 500 MG in NS (IVPB) 250 ML IV ONE (23:00)
[2018-10-09] MEDS ORDERED: cefTRIAXone FOR IV USE 1,000 MG in WATER (STERILE) FOR INJECTION 10 ML IV ONE (23:00)
[2018-10-09] MEDS ORDERED: RT-ALBUTEROL/IPRATROPIUM 3 ML (DUONEB) VIAL INH ONE (23:00)
[2018-10-09] MEDS ORDERED: ACETAMINOPHEN 500 MG TAB (TYLENOL) PO PRN (23:00)
[2018-10-09] MEDS ORDERED: DEXAMETHASONE 4 MG/ML SDV (DECADRON) IH ONE (23:00)
[2018-10-09 23:09] LABS: BASOPHILS % (AUTO) 0 % (0-10); EOSINOPHILS % (AUTO) 0 % (0-10); HEMATOCRIT 35 % (35-52); HEMOGLOBIN 11.9 G/DL (11.5-16.0); LYMPHOCYTES # (AUTO) 0.2 X 10^3 (1.0-4.0); LYMPHOCYTES % (AUTO) 14 % (12-44); MEAN CORPUSCULAR HEMOGLOBIN 28 PG (25-34); MEAN CORPUSCULAR HGB CONC 34 G/DL (32-36); MEAN CORPUSCULAR VOLUME 82 FL (80-99); MONOCYTES # (AUTO) 0.1 X 10^3 (0.0-1.0); MONOCYTES % (AUTO) 8 % (0-12); NEUTROPHILS # (AUTO) 1.2 X 10^3 (1.8-7.8); NEUTROPHILS % (AUTO) 79 % (42-75); PLATELET COUNT 110 10^3/uL (130-400); RED CELL DISTRIBUTION WIDTH 18.2 % (10.0-14.5); WHITE BLOOD COUNT 1.5 10^3/uL (4.3-11.0)
[2018-10-09 23:19] LABS: ABG BASE EXCESS -14.7 MMOL/L (-2.5-2.5); ABG OXYGEN SATURATION 96 % (94-100); ABG PH 7.35 (7.37-7.43); ABG PO2 84 MMHG (79-93); ABG TCO2 10.3 MMOL/L (21.0-31.0)
[2018-10-09 23:23] LABS: INR 1.2 (0.8-1.4)
[2018-10-09 23:23] LABS: ABG PCO2 18 MMHG (35-45)
[2018-10-09 23:24] LABS: ALLENS TEST YES-POS; INSPIRED O2 ROOM AIR; PATIENT TEMP 100.8; VENTILATOR NO
[2018-10-09 23:30] LABS: BUN/CREATININE RATIO 14; CARBON DIOXIDE 11 MMOL/L (21-32); CHLORIDE 98 MMOL/L (98-107); CREATININE SERUM 3.91 MG/DL (0.60-1.30); POTASSIUM 2.6 MMOL/L (3.6-5.0); SODIUM 132 MMOL/L (135-145)
[2018-10-09] MEDS ORDERED: SODIUM BICARB 8.4% 50 MEQ/50 ML VIAL IV ONE (23:30)
[2018-10-09 23:31] LABS: ALANINE AMINOTRANSFERASE 6 U/L (0-55); ALBUMIN 3.8 GM/DL (3.2-4.5); ALKALINE PHOSPHATASE 65 U/L (40-136); BILIRUBIN,TOTAL 0.5 MG/DL (0.1-1.0); CALCIUM 10.1 MG/DL (8.5-10.1); GFR ESTIMATED 13; GLUCOSE 97 MG/DL (70-105); MAGNESIUM 1.3 MG/DL (1.8-2.4); TOTAL PROTEIN 8.1 GM/DL (6.4-8.2)
[2018-10-09 23:35] LABS: ACETAMINOPHEN < 10 UG/ML (10-30)
[2018-10-10] MEDS ORDERED: NOREPINEPHRINE 4 MG/4 ML (LEVOPHED) AMP IV ONE (00:04)
[2018-10-10] MEDS ORDERED: NS IV 1000 ML 1,000 ML IV ONE (00:04)
[2018-10-10] MEDS ORDERED: NS (IVPB) 250 ML ONE ×2 (00:08→00:53)
[2018-10-10] MEDS ORDERED: ONDANSETRON 4 MG/2 ML (SDV) Z0FRAN ONE (00:14)
[2018-10-10] MEDS ORDERED: VANCOMYCIN INJECTION 1,000 MG in NS (IVPB) 250 ML IV SCH (00:15)
[2018-10-10] MEDS ORDERED: NOREPINEPHRINE 4 MG in NS (IVPB) 250 ML IV SCH (00:15)
[2018-10-10] MEDS ORDERED: AZITHROMYCIN INJECTION 500 MG in NS (IVPB) 250 ML IV ONE (00:15)
[2018-10-10] MEDS ORDERED: PIPERACILLIN/TAZOBACTAM (BULK) 4.5 GM in NS (IVPB) 100 ML IV ONE (00:15)
[2018-10-10] MEDS ORDERED: ONDANSETRON 4 MG/2 ML (SDV) Z0FRAN IVP ONE (00:30)
[2018-10-10 00:47] LABS: ABG BASE EXCESS -11.7 MMOL/L (-2.5-2.5); ABG OXYGEN SATURATION 99 % (94-100); ABG PCO2 23 MMHG (35-45); ABG PH 7.36 (7.37-7.43); ABG PO2 171 MMHG (79-93); ABG TCO2 13.2 MMOL/L (21.0-31.0)
[2018-10-10 00:49] LABS: ALLENS TEST YES-POS; INSPIRED O2 50%; PATIENT TEMP 100.4
[2018-10-10] MEDS ORDERED: PIPERACILLIN/TAZO 4.5 GM VIAL (ZOSYN) IV ONE (00:53)
[2018-10-10] MEDS ORDERED: NS (IVPB) 100 ML ONE (00:53)
[2018-10-10] MEDS ORDERED: VANCOMYCIN 1000 MG/VIAL ONE (00:53)
[2018-10-10] MEDS ORDERED: ACETAMINOPHEN 500 MG TAB (TYLENOL) PO ONE (01:00)
[2018-10-10] MEDS ORDERED: IBUPROFEN 800 MG (MOTRIN) TAB PO ONE (01:00)
[2018-10-10 01:36] LABS: CLARITY,URINE CLOUDY; COLOR,URINE BROWN; GLUCOSE, URINE (UA) 1+ (NEGATIVE); KETONES,URINE 1+ (NEGATIVE); NITRITE,URINE POSITIVE (NEGATIVE); PH,URINE 5 (5-9); PROTEIN,URINE 4+ (NEGATIVE)
[2018-10-10 01:37] LABS: AMORPHOUS SEDIMENT,UR LARGE AMOR URATES /LPF; BACTERIA,URINE FEW /HPF; BILIRUBIN,URINE 1+ (NEGATIVE); LEUKOCYTE ESTERASE ,URINE 1+ (NEGATIVE); UROBILINOGEN,URINE 4 MG/DL (NORMAL)
[2018-10-10 01:47] LABS: AMPHETAMINE SCREEN, URINE NEGATIVE (NEGATIVE); BENZODIAZEPINES SCREEN URINE NEGATIVE (NEGATIVE); COCAINE SCREEN URINE NEGATIVE (NEGATIVE); METHAMPHETAMINE SCREEN URINE S NEGATIVE (NEGATIVE)
[2018-10-10 01:48] LABS: BARBITURATE SCREEN URINE NEGATIVE (NEGATIVE); CANNABINOID SCREEN, URINE POSITIVE (NEGATIVE); METHADONE STAT NEGATIVE (NEGATIVE); OPIATE SCREEN URINE NEGATIVE (NEGATIVE); OXYCODONE STAT NEGATIVE (NEGATIVE); PROPOXYPHENE STAT NEGATIVE (NEGATIVE); TRICYCLIC ANTIDEPRESSANTS SCRE NEGATIVE (NEGATIVE)
[2018-10-10] MEDS ORDERED: RT-ALBUTEROL/IPRATROPIUM 3 ML (DUONEB) VIAL INH ONE (02:00)
[2018-10-10 02:38] VITALS: BP 100/77
--- NOTE | 2018-10-10 09:26 | Diagnostic Imaging Report ---
EXAM: CHEST 1 VIEW, AP/PA ONLY INDICATION: Shortness of air. Pneumonia. COMPARISON: Chest radiograph 07/29/2018. CTA chest of 07/31/2018. FINDINGS: Allowing for differences in technique, there has likely been progression of the infiltrate in the right midlung. No definite residual infiltrate in the left lung. No pleural effusion or pneumothorax. Normal heart size and central pulmonary vascularity. No acute osseous findings. IMPRESSION: Probable interval progression of the infiltrate in the right midlung allowing for differences in technique. Dictated by: Dictated on workstation # [id number]
--- NOTE | 2018-11-19 20:39 | ED Respiratory ---
General Chief Complaint: Respiratory Problems Stated Complaint: SOB Nursing Triage Note: presents to er registration in acute resporitory distress, taken by wheelchair to trauma room 4 by this RN. Source: patient (VERY LIMITED HISTORIAN--NOT FORTHCOMING ABOUT HER MEDICAL HISTORY) History of Present Illness Date Seen by Provider: Oct 09, 2018 Time Seen by Provider: 22:47 Initial Comments PT ARRIVES VIA POV, THEN IN WHEELCHAIR TO ROOM C/O SHORTNESS OF BREATH X 4 DAYS HAD FEVER OF 103 A COUPLE OF DAYS AGO, HAS NOT CHECKED TEMP SINCE, AND HAS NOT TAKEN ANYTHING FOR FEVER C/O NON-PRODUCTIVE COUGH--HAS NOT TAKEN ANYTHING FOR COUGH. C/O CHEST PAIN--WITH BREATHING AND COUGHING C/O BACK PAIN --WITH BREATHING AND COUGHING C/O "KIDNEY PAIN" HAS NOT TAKEN ANYTHING FOR PAIN AT ANY TIME, YET YELLING AND DEMANDING PAIN MEDICATION SOON SHE ARRIVES, WHILE STILL IN WHEELCHAIR PCP: [facility] [place] 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 Allergies and Home Medications Allergies Coded Allergies: No Known Drug Allergies (Unverified , 07/29/18) Home Medications Albuterol Sulfate 1 Puff Puff, 2 PUFF INH Q4H PRN for SHORTNESS OF BREATH, (Reported) Albuterol Sulfate 2.5 Mg/3 Ml Vial.neb, 2.5 MG NEB Q4H PRN for SHORTNESS OF BREATH, (Reported) Dronabinol 10 Mg Capsule, 10 MG PO TID, (Reported) Elviteg/Venessa/Emtric/Tenofo Ala 1 Each Tablet, 1 TAB PO DAILY, (Reported) LAST FILLED #30 04-22-18 Ferrous Sulfate 325 Mg Tablet, 325 MG PO BID WITH MEALS Prescribed by: SIRENA POWER on 08/01/18 1209 Levofloxacin 750 Mg Tablet, 750 MG PO DAILY Prescribed by: SIRENA POWER on 07/31/18 1528 Methocarbamol 500 Mg Tablet, 500-750 MG PO TID PRN for MUSCLE SPASMS, (Reported) Ondansetron 8 Mg Tab.rapdis, 8 MG PO Q8H PRN for NAUSEA/VOMITING-1ST LINE, (Reported) Tramadol HCl 50 Mg Tablet, 50 MG PO TID PRN for PAIN-MILD TO MODERATE Prescribed by: SIRENA POWER on 08/01/18 1218 Patient Home Medication List Home Medication List Reviewed: Yes Review of Systems Review of Systems Constitutional: see HPI, chills, diaphoresis, fever, malaise, weakness EENTM: no symptoms reported; No nose congestion, No throat pain Respiratory: see HPI, cough, dyspnea on exertion; No phlegm; short of breath, wheezing Cardiovascular: see HPI, chest pain; No edema, No palpitations, No syncope Gastrointestinal: no symptoms reported; No abdominal pain, No diarrhea, No nausea, No vomiting Genitourinary: see HPI; No dysuria; other (FLANK PAIN ) Musculoskeletal: see HPI, back pain Skin: no symptoms reported; No rash Psychiatric/Neurological: No Symptoms Reported; Denies Headache, Denies Numbness, Denies Paresthesia, Denies Seizure, Denies Tingling, Denies Weakness Hematologic/Lymphatic: No Symptoms Reported Immunological/Allergic: HIV/AIDS (PT DID NOT ADMIT TO THIS, EVEN ON DIRECT QUESTIONING, BUT IS NOTED ON OLD RECORDS THAT PT IS HIV + / HAS AIDS) Past Xnjilje-Nbhgfd-Jvahrg Hx Patient Social History Alcohol Use: Past History (HISTORY OF ABUSE) Recreational Drug Use: Yes (THC, AMPHETAMINES) Drug of Choice: THC, AMPHETAMINES Smoking Status: Current Everyday Smoker (1 PPD) Type Used: Cigarettes (1 PPD) 2nd Hand Smoke Exposure: Yes Recent Foreign Travel: No Contact w/Someone Who Travel: No Recent Infectious Disease Expo: No Recent Hopitalizations: No Physical Abuse: No Sexual Abuse: No Mistreated: No Fear: No Immunizations Up To Date Tetanus Booster (TDap): Less than 5yrs Date of Pneumonia Vaccine: Mar 16, 2014 Date of Influenza Vaccine: Dec 24, 2015 Seasonal Allergies Seasonal Allergies: No Past Medical History Surgeries: Yes (RUDDY 2010 WITH ERCP; 11/2016--ROBOTIC ASSISTED HYST/LSO AND PARTIAL RIGHT OOPHORECTOMY, WITH VENTRAL HERNIA REPAIR WITH MESH) Abdominal, Gallbladder, Hysterectomy, Oophorectomy, Tubal Ligation Respiratory: Yes Asthma, Pneumonia Cardiac: No Neurological: Yes Headaches /Migraines : No 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 Disorders: Yes (CPP, AUB) Female 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 Disorders: Menstrual 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 Sexually Transmitted Disease: No HIV/AIDS: Yes Genitourinary: Yes (RENAL FAILURE IN PAST) Gastrointestinal: Yes (LIVER FAILURE / ASCITES IN PAST) Abdominal Hernia, Liver Disease/Jaundice Musculoskeletal: Yes Back Injury, Chronic Back Pain Endocrine: No HEENT: No Loss of Vision: Denies Hearing Impairment: Denies Cancer: No Psychosocial: Yes Anxiety Integumentary: No Blood Disorders: Yes (HIV) Adverse Reaction/Blood Tranf: No Family Medical History DVT 19 MOTHER, , Age:65 FH: COPD (chronic obstructive pulmonary disease) 19 MOTHER, , Age:65 FH: pulmonary embolism 19 MOTHER, , Age:65 No Pertinent Family Hx, Cancer, Hypertension Physical Exam Capillary Refill : Greater Than 3 Seconds Height: 5'5.00" Weight: 130lbs. 0oz. [id number]; 24.2 BMI Method:Stated General Appearance: moderate distress, cachetic, thin, other (VERY ANXIOUS, DRAMATIC, VERY DEMANDING, YET LETHARGIC, SITTING ON SIDE OF BED, IN TRIPOD POSITION, AUDIBLE RHONCHI FROM OUTSIDE DOORWAY. DYSPNEIC. DIRTY, MALODOROUS, VERY UNKEMPT) HEENT: PERRL/EOMI, other (EDENTULOUS. ORAL MUCOSA SLIGHTLY DRY) Neck: normal inspection Respiratory: respiratory distress, accessory muscle use, rhonchi, wheezing, other (TACHYPNEIC IN MID TO UPPER 30'S RESPIRATORY RATE. ) Cardiovascular: no JVD, no murmur, tachycardia (145-150) Gastrointestinal: non tender, soft, no organomegaly Extremities: normal inspection, no pedal edema, normal capillary refill Neurologic/Psychiatric: log driver II-XII nml as tested, no motor/sensory deficits, alert, oriented x 3 Skin: normal color, warm/dry, tattoos/piercings (MULTPLE TATTOOS) Focused Exam Lactate Level 10/09/18 22:50: Lactic Acid Level 4.34*H 10/10/18 01:05: Lactic Acid Level 5.05*H Lactic Acid Level Laboratory Tests Test 10/09/18 22:50 10/10/18 01:05 Lactic Acid Level 4.34 MMOL/L (0.50-2.00) *H 5.05 MMOL/L (0.50-2.00) *H Progress/Results/Core Measures Suspected Sepsis Recent Fever Within 48 Hours: Yes Infection Criteria Present: Suspected New Infection New/Unexplained Altered Menta: No Sepsis Screen: Possible Sepsis Risk SIRS Temperature:98.0 Pulse: 121 Respiratory Rate: 30 Laboratory Tests 10/09/18 22:50: White Blood Count 1.5L Blood Pressure 100 /77 Mean: 85 10/09/18 22:50: Lactic Acid Level 4.34*H 10/10/18 01:05: Lactic Acid Level 5.05*H Laboratory Tests 10/09/18 22:50: Creatinine 3.91H, INR Comment 1.2, Platelet Count 110L, Total Bilirubin 0.5 Results/Orders Lab Results Laboratory Tests Test 10/09/18 22:45 10/09/18 22:50 10/09/18 23:00 10/10/18 00:25 Range/Units Lab Scanned Report Referred Lab Report [id number] White Blood Count 1.5 L 4.3-11.0 10^3/uL Red Blood Count 4.27 L 4.35-5.85 10^6/uL Hemoglobin 11.9 11.5-16.0 G/DL Hematocrit 35 35-52 % Mean Corpuscular Volume 82 80-99 FL Mean Corpuscular Hemoglobin 28 25-34 PG Mean Corpuscular Hemoglobin Concent 34 32-36 G/DL Red Cell Distribution Width 18.2 H 10.0-14.5 % Platelet Count 110 L 130-400 10^3/uL Mean Platelet Volume 7.4-10.4 FL Neutrophils (%) (Auto) 79 H 42-75 % Lymphocytes (%) (Auto) 14 12-44 % Monocytes (%) (Auto) 8 0-12 % Eosinophils (%) (Auto) 0 0-10 % Basophils (%) (Auto) 0 0-10 % Neutrophils # (Auto) 1.2 L 1.8-7.8 X 10^3 Lymphocytes # (Auto) 0.2 L 1.0-4.0 X 10^3 Monocytes # (Auto) 0.1 0.0-1.0 X 10^3 Eosinophils # (Auto) 0.0 0.0-0.3 10^3/uL Basophils # (Auto) 0.0 0.0-0.1 10^3/uL Prothrombin Time 16.0 H 12.2-14.7 SEC INR Comment 1.2 0.8-1.4 Activated Partial Thromboplast Time 35 24-35 SEC Sodium Level 132 L 135-145 MMOL/L Potassium Level 2.6 L 3.6-5.0 MMOL/L Chloride Level 98 98-107 MMOL/L Carbon Dioxide Level 11 L 21-32 MMOL/L Anion Gap 23 H 5-14 MMOL/L Blood Urea Nitrogen 54 H 7-18 MG/DL Creatinine 3.91 H 0.60-1.30 MG/DL Estimat Glomerular Filtration Rate 13 BUN/Creatinine Ratio 14 Glucose Level 97 70-105 MG/DL Lactic Acid Level 4.34 *H 0.50-2.00 MMOL/L Calcium Level 10.1 8.5-10.1 MG/DL Corrected Calcium 10.3 H 8.5-10.1 MG/DL Magnesium Level 1.3 L 1.8-2.4 MG/DL Total Bilirubin 0.5 0.1-1.0 MG/DL Aspartate Amino Transf (AST/SGOT) 27 5-34 U/L Alanine Aminotransferase (ALT/SGPT) 6 0-55 U/L Alkaline Phosphatase 65 40-136 U/L Myoglobin 250.4 H 10.0-92.0 NG/ML Troponin I < 0.028 <0.028 NG/ML B-Type Natriuretic Peptide 570.2 H <100.0 PG/ML Total Protein 8.1 6.4-8.2 GM/DL Albumin 3.8 3.2-4.5 GM/DL TSH [place]andt Testing 0.50 0.35-4.94 UIU/ML Serum Test, Qualitative NEGATIVE NEGATIVE Acetaminophen Level < 10 L 10-30 UG/ML Serum Alcohol < 10 <10 MG/DL Blood Gas Puncture Site LEFT RADIAL LEFT RADIAL Blood Gas Patient Temperature 100.8 100.4 Arterial Blood pH 7.35 L 7.36 L 7.37-7.43 Arterial Blood Partial Pressure CO2 18 *L 23 L 35-45 MMHG Arterial Blood Partial Pressure O2 84 171 H 79-93 MMHG Arterial Blood HCO3 10 *L 13 *L 23-27 MMOL/L Arterial Blood Total CO2 10.3 L 13.2 L 21.0-31.0 MMOL/L Arterial Blood Oxygen Saturation 96 99 94-100 % Arterial Blood Base Excess -14.7 L -11.7 L -2.5-2.5 MMOL/L Nirav Test YES-POS YES-POS Blood Gas Ventilator Setting NO NA Blood Gas Inspired Oxygen ROOM AIR 50% Test 10/10/18 01:05 10/10/18 01:10 Range/Units Lactic Acid Level 5.05 *H 0.50-2.00 MMOL/L Urine Color BROWN H Urine Clarity CLOUDY Urine pH 5 5-9 Urine Specific [place] 1.025 H 1.016-1.022 Urine Protein 4+ NEGATIVE Urine Glucose (UA) 1+ H NEGATIVE Urine Ketones 1+ H NEGATIVE Urine Nitrite POSITIVE H NEGATIVE Urine Bilirubin 1+ H NEGATIVE Urine Urobilinogen 4 H NORMAL MG/DL Urine Leukocyte Esterase 1+ H NEGATIVE Urine RBC (Auto) 5+ H NEGATIVE Urine RBC 10-25 H /HPF Urine WBC 2-5 /HPF Urine Squamous Epithelial Cells 2-5 /HPF Urine Crystals PRESENT H /LPF Urine Amorphous Sediment LARGE GUANAKITO URATES H /LPF Urine Bacteria FEW H /HPF Urine Casts NONE /LPF Urine Mucus MODERATE H /LPF Urine Culture Indicated CULTURE PENDING Urine Opiates Screen NEGATIVE NEGATIVE Urine Oxycodone Screen NEGATIVE NEGATIVE Urine Methadone Screen NEGATIVE NEGATIVE Urine Propoxyphene Screen NEGATIVE NEGATIVE Urine Barbiturates Screen NEGATIVE NEGATIVE Ur Tricyclic Antidepressants Screen NEGATIVE NEGATIVE Urine Phencyclidine Screen NEGATIVE NEGATIVE Urine Amphetamines Screen NEGATIVE NEGATIVE Urine Methamphetamines Screen NEGATIVE NEGATIVE Urine Benzodiazepines Screen NEGATIVE NEGATIVE Urine Cocaine Screen NEGATIVE NEGATIVE Urine Cannabinoids Screen POSITIVE H NEGATIVE Micro Results Microbiology 10/09/18 Blood Culture - Final, Complete Pseudomonas aeruginosa 10/09/18 Blood Culture - Final, Complete Pseudomonas aeruginosa 10/10/18 Urine Culture - Final, Complete NO GROWTH My Orders Orders - LC BLAKE DO Ed Iv/Invasive Line Start (10/09/18 22:47) Ekg Tracing (10/09/18 22:47) Monitor-Rhythm Ecg Trace Only (10/09/18 22:47) Chest 1 View, Ap/Pa Only (10/09/18 22:47) Acetaminophen (10/09/18 22:47) Alcohol (10/09/18 22:47) Arterial Blood Gas (10/09/18 22:47) BNP (10/09/18 22:47) Cbc With Automated Diff (10/09/18 22:47) Comprehensive Metabolic Panel (10/09/18 22:47) Drug Screen Stat (Urine) (10/09/18 22:47) Hcg,Qualitative Serum (10/09/18 22:47) Lactic Acid Analyzer (10/09/18 22:47) Magnesium (10/09/18 22:47) Protime With Inr (10/09/18 22:47) Partial Thromboplastin Time (10/09/18 22:47) Thyroid Analyzer (10/09/18 22:47) Ua Culture If Indicated (10/09/18 22:47) Blood Culture (10/09/18 22:47) Myoglobin Serum (10/09/18 22:47) Troponin I (10/09/18 22:47) Catheter(Urinary) Insert & Ass 03,15 (10/09/18 22:50) Albuterol Pre-Mix Nebs (Rt) (Proventil (10/09/18 22:50) Albuterol/Ipra Inhalation Soln (Duoneb I (10/09/18 23:00) Dexamethasone Injection (Decadron Inject (10/09/18 23:00) Rt Request For Service (10/09/18 22:50) Methylprednisolone Sod Succ (Solu-Medrol (10/09/18 22:50) Svn Small Volume Nebulizer (10/09/18 22:50) Svn Small Volume Nebulizer (10/09/18 22:50) Urine Culture (10/09/18 22:57) Acetaminophen Tablet (Tylenol Tablet) (10/09/18 23:00) Ed Iv/Invasive Line Start (10/09/18 22:57) Ed Iv/Invasive Line Start (10/09/18 22:57) Vital Signs Adult Sepsis Patie Q15M (10/09/18 22:57) O2 (10/09/18 22:57) Remove Rings In Anticipation O (10/09/18 22:57) Ceftriaxone For Iv Use (Rocephin For I (10/09/18 23:00) Azithromycin Injection (Zithromax Inject (10/09/18 23:00) Ed Iv/Invasive Line Start (10/09/18 22:57) Ns Iv 1000 Ml (Sodium Chloride 0.9%) (10/09/18 22:57) Sodium Bicarbonate 8.4% Vial (Sodium Bic (10/09/18 23:30) Ed Iv/Invasive Line Start (10/09/18 23:49) Ns Iv 1000 Ml (Sodium Chloride 0.9%) (10/09/18 23:49) Azithromycin Injection (Zithromax Inject (10/10/18 00:15) Norepinephrine (Levophed) (10/10/18 00:15) Ed Iv/Invasive Line Start (10/10/18 00:04) Ns Iv 1000 Ml (Sodium Chloride 0.9%) (10/10/18 00:04) Piperacillin/Tazobactam (Bulk) (Zosyn In (10/10/18 00:15) Vancomycin Injection (Vancomycin Injecti (10/10/18 00:15) Arterial Blood Gas (10/10/18 00:09) Norepinephrine (Levophed) (10/10/18 00:04) Ns (Ivpb) (Sodium Chloride 0.9%) (10/10/18 00:08) Ondansetron Injection (Zofran Injectio (10/10/18 00:30) Ondansetron Injection (Zofran Injectio (10/10/18 00:14) Communication For Respiratory (10/10/18 00:37) Acetaminophen Tablet (Tylenol Tablet) (10/10/18 01:00) Ibuprofen Tablet (Motrin Tablet) (10/10/18 01:00) Vancomycin Injection (Vancomycin Injecti (10/10/18 00:53) Ns (Ivpb) (Sodium Chloride 0.9%) (10/10/18 00:53) Ns (Ivpb) (Sodium Chloride 0.9% Ivpb Bag (10/10/18 00:53) Piperacillin Sodium/Tazobactam (Zosyn Vi (10/10/18 00:53) Albuterol/Ipra Inhalation Soln (Duoneb I (10/10/18 02:00) Svn Small Volume Nebulizer (10/10/18 01:56) Arterial Blood Draw (10/09/18 ) Arterial Blood Draw (10/10/18 ) Iv Infusion <= First Hr Ed (10/09/18 ) Vital Signs/I&O Capillary Refill : Greater Than 3 Seconds Blood Pressure Mean: 85 Progress Note : Progress Note OLD RECORDS REVIEWED, IS NOTED THAT PT IS HIV + / AIDS--QUESTIONED PT ABOUT THIS MULTIPLE TIMES AND SHE NEVER ACKNOWLEDGED THIS AT ANY TIME, AND IN FACT DENIED IT. PT HAS A LONG HISTORY OF NON COMPLIANCE IN ALL ASPECTS OF CARE 0001--PT NOW ADMITS THAT SHE WAS HOSPITALIZED AT [facility] LAST MONTH FOR THIS SAME PROBLEM---PT HAD ADAMANTLY AND REPEATEDLY DENIED ANY HISTORY SIMILAR OR RECENT HOSPITALIZATIONS, UNTIL NOW. ADDITIONAL ANTIBIOTICS ORDERED, SOON THIS WAS DISCOVERED. ALSO NOTED THAT PT RECEIVED RX FOR CIPRO 09/27/[address] GALVAN WITH [facility]--FOR UNKNOWN REASON, AND PT DOES NOT ACKNOWLEDGE THIS PT ALSO PRESCRIBED INH, RIFAMPIN AND BACTRIM ON 09/09/[address] KING--PT ALSO DOES NOT ACKNOWLEDGE THIS, EITHER. GIVEN HOUR LONG NEB TREATMENTS, AND PLACED ON VAPOTHERM, PT REFUSED BIPAP AND REFUSED INTUBATION. O2 SATS 100% ON VAPOTHERM MUCH LESS DYSPNEIC, STILL WITH RHONCHI, BUT NOW ONLY AUDIBLE WITH STETHOSCOPE. BP > 100 WITH FLUIDS HEART RATE DOWN TO 110'S WITH FLUIDS PT ADVISED OF SERIOUSNESS OF HER CONDITION AND THAT THERE IS A POSSIBILITY THAT SHE MAY NOT SURVIVE THIS, PT APPEARS TO UNDERSTAND. ECG Initial ECG Impression Date: Oct 09, 2018 Initial ECG Impression Time: 23:59 Initial ECG Rate: 141 Initial ECG Rhythm: S.Tach Diagnostic Imaging Comments CXR--RIGHT SIDED INFILTRATE, PENDING RADIOLOGIST REVIEW Reviewed: Reviewed by Me Departure Communication (Admissions) [id number]--CALLED [facility], AFTER PT ADMITS THAT SHE WAS JUST ADMITTED THERE LAST MONTH FOR THIS SAME PROBLEM, REQUESTS TRANSFER THERE [id number]--SPOKE WITH DR. PERDOMO, HOSPITALIST, ACCEPTS PT FOR ADMIT. Impression Primary Impression: Septic shock Additional Impressions: RIGHT SIDED PNEUMONIA HIV/AIDS Respiratory failure Severe neutropenia Renal failure Electrolyte imbalance UTI (urinary tract infection) Illicit drug use Acidosis Disposition: 02 XFER SHT-TRM HOSP Condition: Improved Transfer Transfer Facility: [facility] Method of Transfer: EMS Departure-Patient Inst. Referrals: AZAR GOINS MD (PCP) Primary Care Physician LC BLAKE DO Nov 19, 2018 20:39
== END 2018-10-10 02:38 | disposition short-term general hospital (02) ==
LOC: EDUNIT# 22:43 → ER 22:45
DX: A41.9 Sepsis, unspecified organism (principal); R65.21 Severe sepsis with septic shock; J96.20 Acute and chronic respiratory failure, unspecified whether with hypoxia or hypercapnia; J18.9 Pneumonia, unspecified organism; B20 Human immunodeficiency virus [HIV] disease; D70.9 Neutropenia, unspecified; N19 Unspecified kidney failure; E87.8 Other disorders of electrolyte and fluid balance, not elsewhere classified; N39.0 Urinary tract infection, site not specified; E87.2 Acidosis; F15.99 Other stimulant use, unspecified with unspecified stimulant-induced disorder; F12.99 Cannabis use, unspecified with unspecified cannabis-induced disorder; J45.909 Unspecified asthma, uncomplicated; G43.909 Migraine, unspecified, not intractable, without status migrainosus; F41.9 Anxiety disorder, unspecified; F17.210 Nicotine dependence, cigarettes, uncomplicated; Z87.01 Personal history of pneumonia (recurrent); Z90.49 Acquired absence of other specified parts of digestive tract; Z90.710 Acquired absence of both cervix and uterus; Z98.890 Other specified postprocedural states; Z98.51 Tubal ligation status
CPT/HCPCS: 36415; 36600; 51702; 71045; 80053; 80306; 80320; 80329; 81000; 82805; 83605; 83735; 83874; 83880; 84443; 84484; 84703; 85025; 85610; 85730; 87040; 87088; 93005; 93041; 94640; 94664; 96361; 96365; 96367; 96368; 96375